=== PATIENT | male | born 1945 | race Caucasian/White ===

== ENCOUNTER 2018-03-04 16:48 | Emergency (ER) | payer OTHER ==
--- OUTSIDE RECORDS SUMMARY | 2018-03-04 16:50 | XMS REPORT | Clinical Summary ---
:1945 Author Organization [facility] Address [address] [place] [address] Phone Care Team Providers Name Role Phone Unavailable Primary Care Provider Unavailable Allergies No Known Allergies Current Medications Prescription Sig. Disp. Refills Start Date End Date Status metoprolol (TOPROL-XL) 50 Take 50 mg by Active MG 24 hr tablet mouth 2 (two) times daily. levothyroxine (SYNTHROID, Take 75 mcg by Active LEVOTHROID) 75 MCG tablet mouth Every morning on an empty stomach. multivitamin with minerals Take 1 tablet by Active tablet mouth daily. diphenhydrAMINE (BENADRYL) Take 25 mg by Active 25 mg tablet mouth every night as needed for Sleep. acetaminophen (TYLENOL) Place 650 mg Active 650 MG suppository rectally every 4 (four) hours as needed for Fever. Active Problems Problem Noted Date Pre-transplant evaluation for chronic kidney disease 12/19/2016 Last Assessment & Plan: Due to his age, history of COPD, and AAA repair he is not an acceptable candidate for kidney transplant. He understood and agreed with this decision. HTN (hypertension) 12/19/2016 Last Assessment & Plan: Continue management with nephrology as prescribed. Aortic aneurysm (HCC) 12/19/2016 Last Assessment & Plan: Repaired with a stent in 2012. Polycystic kidney 12/19/2016 COPD (chronic obstructive pulmonary disease) (HCC) 12/19/2016 Last Assessment & Plan: Controlled with inhalers. No history of smoking. Family History Medical History Relation Name Comments Cancer Brother lung Polycystic kidney disease Daughter Heart disease Father Hypertension Father Hypertension Mother COPD Sister copd Relation Name Status Comments Brother lung Daughter Father Mother Sister copd Sister breast cancer Social History Tobacco Use Types Packs/Day Years Used Date Never Smoker Alcohol Use Drinks/Week oz/Week Comments No Sex Assigned at Date Recorded Not on file Last Filed Vital Signs Not on file Plan of Treatment Health Maintenance Due Date Last Done Comments INFLUENZA VACCINE 03/25/2018 Results Not on fileafter 03/03/2017
[2018-03-04 18:04] LABS: Absolute Lymphocytes (CBC) 2.2 K/uL (0.7-4.9); Absolute Monocytes 0.8 K/uL (0.1-1.3); Absolute Neutrophil 5.7 K/uL (1.8-8.0); Eosinophils % 4.1 % (0-4.4); Hematocrit 31.5 % (39.6-49.0); Lymphocytes % 24.1 % (15.3-44.8); MCH 34.4 pg (27.0-35.0); MCV 97.6 fL (80-100); MPV 8.1 fL (7.6-11.3); Monocytes % 8.9 % (3.3-12.3); RBC Red Blood Cell Count 3.23 M/uL (4.33-5.43)
[2018-03-04 18:06] LABS: Protime INR 1.04
[2018-03-04 18:14] LABS: ALT/SGPT 30 U/L (12-78); AST/SGOT 15 U/L (15-37); Albumin 3.5 g/dL (3.4-5.0); Alkaline Phosphatase 66 U/L (45-117); Amylase Level 68 U/L (25-115); BUN Blood Urea Nitrogen 25 mg/dL (7-18); Bicarbonate 31 mmol/L (21-32); Bilirubin Direct < 0.1 mg/dL (0-0.2); Bilirubin Total 0.4 mg/dL (0.2-1.0); Glucose Level 97 mg/dL (74-106); Lipase 145 U/L (73-393); Potassium 3.7 mmol/L (3.5-5.1); Protein, Total 8.1 g/dL (6.4-8.2); Sodium Level 137 mmol/L (136-145)
[2018-03-04 18:53] LABS: Urine Blood 3+ (NEG); Urine Glucose NEGATIVE (NEG); Urine Protein 3+ (NEG); Urine Specific Gravity 1.025 (1.005-1.030)
[2018-03-04 19:20] LABS: Urine RBC TNTC /HPF (NONE SEEN)
[2018-03-04 19:21] LABS: Urine Bacteria <20 /HPF (NONE SEEN); Urine Culture Reflex Order NOT NEEDED
--- NOTE | 2018-03-04 19:23 | ER ---
Nurse's Notes [facility] Name: Robbie Kelly Age: 72 yrs Sex: Male : 1945 Arrival Date: 03/04/2018 Time: 16:53 Bed 14 Private MD: Mookie Nguyen R Diagnosis: Hematuria, unspecified Presentation: 03/04 17:06 Presenting complaint: Patient states: i noticed blood in my urine today, bright red hj fresh blood; it doesn't hurt when i pee; a dialysis pt M W F; denies taking blood thinners;. Transition of care: patient was not received from another setting of care. Onset of symptoms was March 04, 2018. Risk Assessment: Do you want to hurt yourself or someone else? Patient reports no desire to harm self or others. Initial Sepsis Screen: Does the patient meet any 2 criteria? No. Patient's initial sepsis screen is negative. Does the patient have a suspected source of infection? No. Patient's initial sepsis screen is negative. Care prior to arrival: None. 17:06 Method Of Arrival: Ambulatory 17:06 Acuity: DADA 3 hj Triage Assessment: 17:10 General: Appears in no apparent distress. uncomfortable, Behavior is calm, cooperative, hj appropriate for age. Pain: Denies pain. EENT: No signs and/or symptoms were reported regarding the EENT system. Neuro: Level of Consciousness is awake, alert, obeys commands, Oriented to person, place, time, situation, Appropriate for age. Cardiovascular: Capillary refill < 3 seconds Patient's skin is warm and dry. Respiratory: Airway is patent Respiratory effort is even, unlabored, Respiratory pattern is regular, symmetrical, Breath sounds are clear. GI: No signs and/or symptoms were reported involving the gastrointestinal system. : KAITLYNN graft;. Derm: No signs and/or symptoms reported regarding the dermatologic system. Musculoskeletal: No signs and/or symptoms reported regarding the musculoskeletal system. Historical: - Allergies: 17:09 No Known Allergies; hj - Home Meds: 17:09 levothyroxine 75 mcg oral tab 1 tab once daily [Active]; metoprolol tartrate 50 mg Oral hj tab 1 tab once daily for on days that he does not have dialysis [Active]; renal vitamin [Active]; Vitamin C Oral [Active]; - PMHx: 17:09 Anemia; COPD; Dialysis; M,W,F; Hypertension; Hypothyroidism; RENAL FAILURE; hj - PSHx: 17:09 aneursym repair; eye surgery; hj - Immunization history:: Adult Immunizations up to date. - Social history:: Smoking status: Patient/guardian denies using tobacco, Patient/guardian denies using alcohol, Patient/guardian denies using street drugs, The patient lives with family. - Ebola Screening: : Patient negative for fever greater than or equal to 101.5 degrees Fahrenheit, and additional compatible Ebola Virus Disease symptoms Patient denies exposure to infectious person Patient denies travel to an Ebola-affected area in the 21 days before illness onset. - Family history:: not pertinent. Screenin:10 Abuse screen: Denies threats or abuse. Denies injuries from another. Nutritional hj screening: No deficits noted. Tuberculosis screening: No symptoms or risk factors identified. Fall Risk None identified. Assessment: 17:12 Reassessment: see triage for assessment;. hj 17:13 Reassessment: Patient and/or family updated on plan of care and expected duration. Pain hj level reassessed. Patient is alert, oriented x 3, equal unlabored respirations, skin warm/dry/pink. provider in the room;. 18:15 Reassessment: Patient and/or family updated on plan of care and expected duration. Pain hj level reassessed. Patient is alert, oriented x 3, equal unlabored respirations, skin warm/dry/pink. awaiting results and POC; family in room;. 18:24 Reassessment: Patient and/or family updated on plan of care and expected duration. Pain hj level reassessed. Patient is alert, oriented x 3, equal unlabored respirations, skin warm/dry/pink. provider in room for POC; awaiting urine specimen;. 18:43 Reassessment: urine specimen sent for u joel;. hj 19:01 General: Appears in no apparent distress. Behavior is calm, cooperative, appropriate ea for age. Pain: Denies pain. Neuro: Level of Consciousness is awake, alert, obeys commands, Oriented to person, place, time, situation. Cardiovascular: Patient's skin is warm and dry. Dialysis shunt: in the left arm, with palpable thrill, with no edema, no bleeding noted. Respiratory: Airway is patent Respiratory effort is even, unlabored, Respiratory pattern is regular, symmetrical. GI: No signs and/or symptoms were reported involving the gastrointestinal system. : Reports bloody urine this AM. EENT: No signs and/or symptoms were reported regarding the EENT system. Derm: Skin is pink, warm \T\ dry. Musculoskeletal: No signs and/or symptoms reported regarding the musculoskeletal system. Vital Signs: 17:11 BP 169 / 77; Pulse 79; Resp 18; Temp 97.8(O); Pulse Ox 97% on R/A; Weight 86.5 kg; hj Height 5 ft. 10 in. (177.80 cm); Pain 0/10; 18:15 BP 165 / 75; Pulse 78; Resp 18; Pulse Ox 98% on R/A; hj 18:23 BP 133 / 93; Pulse 82; Resp 18; Pulse Ox 97% on R/A; hj 19:30 BP 140 / 68; Pulse 80; Resp 18; Temp 97.8(O); Pulse Ox 99% on R/A; Pain 0/10; ea 17:11 Body Mass Index 27.36 (86.50 kg, 177.80 cm) ED Course: 07:43 IV discontinued, intact, bleeding controlled, No redness/swelling at site. Pressure ea dressing applied. 16:53 Patient arrived in ED. mr 16:53 Mookie Nguyen MD is Private Physician. mr 17:01 Avel Robert, LEXII is Primary Nurse. hj 17:05 Korey Antonio MD is Attending Physician. ma2 17:07 Triage completed. hj 17:11 Arm band placed on right wrist. hj 17:11 Patient has correct armband on for positive identification. Bed in low position. Call light in reach. Side rails up X 1. Adult w/ patient. 17:35 Initial lab(s) drawn, by ri, sent to lab. Inserted saline lock: 22 gauge in right upper hj arm, using aseptic technique. Blood collected. 18:40 Urine Microscopic Only Sent. hj 19:00 Report given to LEXII Wu;. 19:01 Jazmin Orta, RN is Primary Nurse. ea 19:43 No provider procedures requiring assistance completed. ea Administered Medications: 18:18 CANCELLED (Inappropriate at this time): NS 0.9% 1000 ml IV at 1 bolus Per protocol; ma2 1000 mL bolus Outcome: 19:22 Discharge ordered by . ma2 19:45 Discharged to home ambulatory, with significant other. favian 19:45 Condition: improved 19:45 Discharge instructions given to patient, Instructed on discharge instructions, follow up and referral plans. Demonstrated understanding of instructions, follow-up care. 19:47 Patient left the ED. favian Signatures: Ariana Rascon mr Avel Robert RN Jazmni Wilson RN RN ea Alzahri, Mohammad, MD MD ma2 Corrections: (The following items were deleted from the chart) 18:44 18:24 Reassessment: Patient and/or family updated on plan of care and expected hj duration. Pain level reassessed. Patient is alert, oriented x 3, equal unlabored respirations, skin warm/dry/pink. provider in room for POC; hj
--- NOTE | 2018-03-04 19:23 | EDPHYS ---
Physician Documentation [facility] Name: Robbie Kelly Age: 72 yrs Sex: Male : 1945 Arrival Date: 03/04/2018 Time: 16:53 Bed 14 Private MD: Mookie Nguyen R ED Physician Korey Antonio HPI: 03/04 17:31 This 72 yrs old Male presents to ER via Ambulatory with complaints of Blood ma2 in urine. 17:31 The patient presents with urinary symptoms, hematuria . Onset: The symptoms/episode ma2 began/occurred gradually, 1 day(s) ago. Associated signs and symptoms: Pertinent positives: hematuria, Pertinent negatives: abdominal pain, constipation, dysuria, hematuria, nausea, vomiting. Severity of symptoms: At their worst the symptoms were moderate, in the emergency department the symptoms have improved. The patient has experienced a previous episode. Historical: - Allergies: 17:09 No Known Allergies; hj - Home Meds: 17:09 levothyroxine 75 mcg oral tab 1 tab once daily [Active]; metoprolol tartrate 50 mg Oral hj tab 1 tab once daily for on days that he does not have dialysis [Active]; renal vitamin [Active]; Vitamin C Oral [Active]; - PMHx: 17:09 Anemia; COPD; Dialysis; M,W,F; Hypertension; Hypothyroidism; RENAL FAILURE; hj - PSHx: 17:09 aneursym repair; eye surgery; hj - Immunization history:: Adult Immunizations up to date. - Social history:: Smoking status: Patient/guardian denies using tobacco, Patient/guardian denies using alcohol, Patient/guardian denies using street drugs, The patient lives with family. - Ebola Screening: : Patient negative for fever greater than or equal to 101.5 degrees Fahrenheit, and additional compatible Ebola Virus Disease symptoms Patient denies exposure to infectious person Patient denies travel to an Ebola-affected area in the 21 days before illness onset. - Family history:: not pertinent. ROS: 17:31 Constitutional: Negative for fever, chills, and weight loss, Neck: Negative for injury, ma2 pain, and swelling. 17:31 : Positive for urinary symptoms, Negative for injury or acute deformity, small amounts, pelvic pain, burning with urination, difficulty urinating, testicular pain acute changes. 17:31 All other systems are negative. Exam: 17:31 Constitutional: This is a well developed, well nourished patient who is awake, alert, ma2 and in no acute distress. ENT: Nares patent. No nasal discharge, no septal abnormalities noted. Tympanic membranes are normal and external auditory canals are clear. Oropharynx with no redness, swelling, or masses, exudates, or evidence of obstruction, uvula midline. Mucous membranes moist. Chest/axilla: Normal chest wall appearance and motion. Nontender with no deformity. No lesions are appreciated. Cardiovascular: Regular rate and rhythm with a normal S1 and S2. No gallops, murmurs, or rubs. Normal PMI, no JVD. No pulse deficits. Respiratory: Lungs have equal breath sounds bilaterally, clear to auscultation and percussion. No rales, rhonchi or wheezes noted. No increased work of breathing, no retractions or nasal flaring. Abdomen/GI: Soft, non-tender, with normal bowel sounds. No distension or tympany. No guarding or rebound. No evidence of tenderness throughout. Neuro: Awake and alert, GCS 15, oriented to person, place, time, and situation. Cranial nerves II-XII grossly intact. Motor strength 5/5 in all extremities. Sensory grossly intact. Cerebellar exam normal. Normal gait. Vital Signs: 17:11 BP 169 / 77; Pulse 79; Resp 18; Temp 97.8(O); Pulse Ox 97% on R/A; Weight 86.5 kg; hj Height 5 ft. 10 in. (177.80 cm); Pain 0/10; 18:15 BP 165 / 75; Pulse 78; Resp 18; Pulse Ox 98% on R/A; hj 18:23 BP 133 / 93; Pulse 82; Resp 18; Pulse Ox 97% on R/A; hj 19:30 BP 140 / 68; Pulse 80; Resp 18; Temp 97.8(O); Pulse Ox 99% on R/A; Pain 0/10; ea 17:11 Body Mass Index 27.36 (86.50 kg, 177.80 cm) MDM: 17:06 Patient medically screened. ma2 17:31 Differential diagnosis: nonspecific abdominal pain, UTI, urinary retention, ma2 prostatitis, urethritis. 19:23 Data reviewed: vital signs, nurses notes, EMS record, lab test result(s). Counseling: I lily had a detailed discussion with the patient and/or guardian regarding: the historical points, exam findings, and any diagnostic results supporting the discharge/admit diagnosis, the need for outpatient follow up. ED course: HB and coags wnl, no UTI, no pain, he will need outpatient work up for painless hematuria. 03/04 17:27 Order name: Amylase, Serum; Complete Time: 18:16 [facility] 03/04 17:27 Order name: Basic Metabolic Panel; Complete Time: 18:16 [facility] 03/04 17:27 Order name: CBC with Diff [facility] 03/04 17:27 Order name: Creatinine for Radiology; Complete Time: 18:16 [facility] 03/04 17:27 Order name: Hepatic Function; Complete Time: 18:16 [facility] 03/04 17:27 Order name: Lipase; Complete Time: 18:16 [facility] 03/04 17:27 Order name: Urine Microscopic Only [facility] 03/04 17:27 Order name: IV Saline Lock; Complete Time: 17:37 [facility] 03/04 17:27 Order name: Labs collected and sent; Complete Time: 17:37 [facility] 03/04 17:27 Order name: Urine Dipstick-Ancillary (obtain specimen); Complete Time: 18:40 [facility] 03/04 17:27 Order name: Ptt, Activated; Complete Time: 18:16 [facility] 03/04 17:27 Order name: PT-INR; Complete Time: 18:16 [facility] 03/04 18:40 Order name: Urine Dipstick--Ancillary (enter results); Complete Time: 19:21 bd Administered Medications: 18:18 CANCELLED (Inappropriate at this time): NS 0.9% 1000 ml IV at 1 bolus Per protocol; ma2 1000 mL bolus Disposition: 03/04/18 19:22 Discharged to Home. Impression: Hematuria, unspecified. - Condition is Stable. - Discharge Instructions: Hematuria, Adult. - Medication Reconciliation Form, Thank You Letter, Antibiotic Education, Prescription Opioid Use form. - Follow up: Private Physician; When: Tomorrow; Reason: Continuance of care. - Problem is new. - Symptoms have improved. Signatures: Dispatcher [employer] EDMS Avel Robert RN RN hj Antunez, Elena, RN RN ea Alzahri, Mohammad, MD MD ma2 Corrections: (The following items were deleted from the chart) 18:18 18:18 NS 0.9% 1000 ml IV at 1 bolus Per protocol; 1000 mL bolus ordered. ma2 ma2 19:47 19:22 03/04/2018 19:22 Discharged to Home. Impression: Hematuria, unspecified. ea Condition is Stable. Forms are Medication Reconciliation Form, Thank You Letter, Antibiotic Education, Prescription Opioid Use. Follow up: Private Physician; When: Tomorrow; Reason: Continuance of care. Problem is new. Symptoms have improved. ma2
[2018-03-04 19:54] VITALS: TEMP 97.8
[2018-03-04 19:57] LABS: Blood Morphology Comment NOT SEEN (NOT SEEN); Platelet Estimate ADEQ
[2018-03-04 19:58] VITALS: BP 140/68; O2SAT 99
== END 2018-03-04 19:47 | disposition home or self-care (01) ==
LOC: ER 16:48
DX: R31.9 Hematuria, unspecified (principal); I10 Essential (primary) hypertension; N19 Unspecified kidney failure; E03.9 Hypothyroidism, unspecified; J44.9 Chronic obstructive pulmonary disease, unspecified; Z99.2 Dependence on renal dialysis
CPT/HCPCS: 36415; 80048; 80076; 81003; 81015; 82150; 83690; 85025; 85610; 85730; 99283

== ENCOUNTER 2019-06-18 20:24 | Inpatient (IN) | payer OTHER ==
[2019-06-18] MEDS ORDERED: ACETAMINOPHEN 500 MG TAB ONE (22:30)
--- NOTE | 2019-06-18 22:54 | EDPHYS ---
Physician Documentation [facility] Name: Robbie Kelly Age: 74 yrs Sex: Male : 1945 Arrival Date: 06/18/2019 Time: 20:26 Bed 13 Private MD: Mookie Nguyen R ED Physician Derrick Brooke HPI: 06/18 22:47 This 74 yrs old Male presents to ER via Ambulatory with complaints of Cough, mitchell Pain All Over. 22:47 The patient or guardian reports airway noise, cough, difficulty breathing, flu mitchell symptoms. Onset: The symptoms/episode began/occurred 3 day(s) ago. Severity of symptoms: At their worst the symptoms were mild, moderate, in the emergency department the symptoms are unchanged. Modifying factors: The symptoms are alleviated by nothing. The patient has not experienced similar symptoms in the past. Historical: - Allergies: 20:54 No Known Allergies; ea - Home Meds: 20:54 levothyroxine 75 mcg tab 1 tab once daily [Active]; metoprolol tartrate 50 mg Oral tab ea 1 tab once daily for on days that he does not have dialysis [Active]; renal vitamin [Active]; Vitamin C Oral [Active]; - PMHx: 20:54 Anemia; COPD; Dialysis; M,W,F; Hypertension; Hypothyroidism; RENAL FAILURE; ea - PSHx: 20:54 triple A in 2011; ea - Immunization history:: Adult Immunizations up to date. - Social history:: Smoking status: Patient/guardian denies using tobacco. - Ebola Screening: : No symptoms or risks identified at this time. - Family history:: not pertinent. ROS: 22:47 Eyes: Negative for injury, pain, redness, and discharge, ENT: Negative for injury, mitchell pain, and discharge, Neck: Negative for injury, pain, and swelling, Cardiovascular: Negative for chest pain, palpitations, and edema, Abdomen/GI: Negative for abdominal pain, nausea, vomiting, diarrhea, and constipation, Back: Negative for injury and pain, : Negative for injury, bleeding, discharge, and swelling, MS/Extremity: Negative for injury and deformity, Skin: Negative for injury, rash, and discoloration, Neuro: Negative for headache, weakness, numbness, tingling, and seizure, Psych: Negative for depression, anxiety, suicide ideation, homicidal ideation, and hallucinations, Allergy/Immunology: Negative for hives, rash, and allergies, Endocrine: Negative for neck swelling, polydipsia, polyuria, polyphagia, and marked weight changes, Hematologic/Lymphatic: Negative for swollen nodes, abnormal bleeding, and unusual bruising. 22:47 Constitutional: Positive for body aches, chills, fatigue, fever, malaise. 22:47 Cardiovascular: Positive for palpitations. 22:47 Respiratory: Positive for cough, shortness of breath, wheezing, inspiratory, expiratory. Exam: 22:47 Constitutional: This is a well developed, well nourished patient who is awake, alert, mitchell and in no acute distress. Head/Face: Normocephalic, atraumatic. Eyes: Pupils equal round and reactive to light, extra-ocular motions intact. Lids and lashes normal. Conjunctiva and sclera are non-icteric and not injected. Cornea within normal limits. Periorbital areas with no swelling, redness, or edema. ENT: Nares patent. No nasal discharge, no septal abnormalities noted. Tympanic membranes are normal and external auditory canals are clear. Oropharynx with no redness, swelling, or masses, exudates, or evidence of obstruction, uvula midline. Mucous membranes moist. Neck: Trachea midline, no thyromegaly or masses palpated, and no cervical lymphadenopathy. Supple, full range of motion without nuchal rigidity, or vertebral point tenderness. No Meningismus. Chest/axilla: Normal chest wall appearance and motion. Nontender with no deformity. No lesions are appreciated. Cardiovascular: Regular rate and rhythm with a normal S1 and S2. No gallops, murmurs, or rubs. Normal PMI, no JVD. No pulse deficits. Abdomen/GI: Soft, non-tender, with normal bowel sounds. No distension or tympany. No guarding or rebound. No evidence of tenderness throughout. Back: No spinal tenderness. No costovertebral tenderness. Full range of motion. Male : Normal genitalia with no discharge or lesions. Skin: Warm, dry with normal turgor. Normal color with no rashes, no lesions, and no evidence of cellulitis. MS/ Extremity: Pulses equal, no cyanosis. Neurovascular intact. Full, normal range of motion. Neuro: Awake and alert, GCS 15, oriented to person, place, time, and situation. Cranial nerves II-XII grossly intact. Motor strength 5/5 in all extremities. Sensory grossly intact. Cerebellar exam normal. Normal gait. Psych: Awake, alert, with orientation to person, place and time. Behavior, mood, and affect are within normal limits. 22:47 Respiratory: mild respiratory distress is noted, moderate respiratory distress is noted, Respirations: labored breathing, that is mild, Breath sounds: bronchial sounds, decreased breath sounds, rhonchi, that are mild, that are moderate, + upper airway congestion. wheezing: inspiratory expiratory Vital Signs: 20:52 BP 152 / 94; Pulse 91; Resp 20; Temp 99.9; Pulse Ox 94% on R/A; Weight 86.18 kg; Height ea 5 ft. 10 in. (177.80 cm); 21:39 BP 139 / 72; Pulse 92; Resp 20; Temp 102.1(O); Pulse Ox 93% ; mh5 22:48 BP 146 / 64; Pulse 90; Resp 18; Temp 99.7(O); Pulse Ox 93% ; [facility] 06/19 00:13 BP 110 / 54; Pulse 99; Resp 18; Temp 99.0(O); Pulse Ox 93% on R/A; [facility] 06/18 20:52 Body Mass Index 27.26 (86.18 kg, 177.80 cm) ea MDM: 06/18 20:56 Patient medically screened. [facility] 22:51 Data reviewed: vital signs, nurses notes, lab test result(s), EKG, radiologic studies, [facility] plain films. 06/18 20:55 Order name: Flu; Complete Time: 22:59 [facility] 06/18 20:55 Order name: Strep; Complete Time: 22:59 [facility] 06/18 21:46 Order name: Throat Culture EDNM 06/18 22:47 Order name: Basic Metabolic Panel; Complete Time: 03:02 [facility] 06/18 22:47 Order name: CBC with Diff; Complete Time: 00:17 [facility] 06/18 22:47 Order name: LFT's; Complete Time: 03:02 [facility] 06/18 22:47 Order name: Magnesium; Complete Time: 03:02 [facility] 06/18 22:47 Order name: NT PRO-BNP; Complete Time: 03:02 [facility] 06/18 22:47 Order name: PT-INR; Complete Time: 00:17 [facility] 06/18 22:47 Order name: Troponin (emerg Dept Use Only); Complete Time: 03:02 [facility] 06/18 22:47 Order name: XRAY Chest (1 view) [facility] 06/18 22:47 Order name: Lipase; Complete Time: 03:02 [facility] 06/18 22:47 Order name: Blood Culture Adult (2) [facility] 06/18 22:47 Order name: EKG; Complete Time: 22:48 [facility] 06/18 22:47 Order name: Cardiac monitoring; Complete Time: 00:58 [facility] 06/18 22:47 Order name: EKG - Nurse/Tech; Complete Time: 00:58 [facility] 06/18 22:47 Order name: IV Saline Lock; Complete Time: 00:58 [facility] 06/18 22:47 Order name: Labs collected and sent; Complete Time: 00:58 [facility] 06/18 22:47 Order name: O2 Per Protocol; Complete Time: 00:58 [facility] 06/18 22:47 Order name: O2 Sat Monitoring; Complete Time: 00:58 [facility] Administered Medications: 22:28 Drug: Tylenol 1000 mg Route: PO; 06/19 00:30 Follow up: Response: No adverse reaction 06/18 23:20 Drug: Albuterol - atroVENT (3:1) (2.5 mg - 0.5 mg) 3 ml Route: Nebulizer; 06/19 00:59 Follow up: Response: No adverse reaction 06/18 23:35 Drug: SOLU-Medrol 125 mg Route: IVP; Site: right antecubital; 06/19 01:00 Follow up: Response: No adverse reaction 00:05 Drug: Rocephin - (cefTRIAXone) 1 grams Route: IVPB; Infused Over: 30 mins; Site: right ea antecubital; 00:59 Follow up: Response: No adverse reaction; IV Status: Completed infusion ea 00:15 Drug: Zithromax 500 mg Route: IVPB; Infused Over: 1 hrs; Site: right antecubital; ea 00:59 Follow up: Response: No adverse reaction; IV Status: Infusion continued upon admission ea Disposition: 06/18/19 22:52 Hospitalization ordered by Mookie Nguyen for Inpatient Admission. Preliminary diagnosis are Chronic obstructive pulmonary disease with (acute) exacerbation, Fever, unspecified, Weakness, End stage renal disease. - Bed requested for Telemetry/MedSurg (Inpatient). - Status is Inpatient Admission. ea - Condition is Fair. - Problem is new. - Symptoms have improved. UTI on Admission? No Signatures: Dispatcher [employer] EDDerrick Salinas MD MD cha Therrien, Shelly, CONTINUING EDUCATION DEAN-C CONTINUING EDUCATION DEAN-Csnw Ania Sullivan, RN RN tl1 Jazmin Orta RN RN ea Clary Ross RN RN ca1 Corrections: (The following items were deleted from the chart) 06/18 23:56 22:52 Hospitalization Ordered by Mookie Nguyen MD for Inpatient Admission. Preliminary tl1 diagnosis is Chronic obstructive pulmonary disease with (acute) exacerbation; Fever, unspecified; Weakness; End stage renal disease. Bed requested for Telemetry/MedSurg (Inpatient). Status is Inpatient Admission. Condition is Fair. Problem is new. Symptoms have improved. UTI on Admission? No. [facility] 06/19 01:01 06/18 23:56 06/18/2019 22:52 Hospitalization Ordered by Mookie Nguyen MD for Inpatient ea Admission. Preliminary diagnosis is Chronic obstructive pulmonary disease with (acute) exacerbation; Fever, unspecified; Weakness; End stage renal disease. Bed requested for Telemetry/MedSurg (Inpatient). Status is Inpatient Admission. Condition is Fair. Problem is new. Symptoms have improved. UTI on Admission? No. tl1
--- NOTE | 2019-06-18 22:54 | ER ---
Nurse's Notes [facility] Name: Robbie Kelly Age: 74 yrs Sex: Male : 1945 Arrival Date: 06/18/2019 Time: 20:26 Bed 13 Private MD: Mookie Nguyen R Diagnosis: Chronic obstructive pulmonary disease with (acute) exacerbation;Fever, unspecified;Weakness;End stage renal disease Presentation: 06/18 20:50 Presenting complaint: Patient states: Reports he has been feeling sick since this past ea Sunday after dialysis, reports cough, congestion and body aches. Transition of care: patient was not received from another setting of care. Onset of symptoms was June 18, 2019. Risk Assessment: Do you want to hurt yourself or someone else? Patient reports no desire to harm self or others. Initial Sepsis Screen: Does the patient meet any 2 criteria? No. Patient's initial sepsis screen is negative. Does the patient have a suspected source of infection? No. Patient's initial sepsis screen is negative. Care prior to arrival: None. 20:50 Method Of Arrival: Ambulatory ea 20:50 Acuity: DADA 4 ea Historical: - Allergies: 20:54 No Known Allergies; ea - Home Meds: 20:54 levothyroxine 75 mcg tab 1 tab once daily [Active]; metoprolol tartrate 50 mg Oral tab ea 1 tab once daily for on days that he does not have dialysis [Active]; renal vitamin [Active]; Vitamin C Oral [Active]; - PMHx: 20:54 Anemia; COPD; Dialysis; M,W,F; Hypertension; Hypothyroidism; RENAL FAILURE; ea - PSHx: 20:54 triple A in 2011; ea - Immunization history:: Adult Immunizations up to date. - Social history:: Smoking status: Patient/guardian denies using tobacco. - Ebola Screening: : No symptoms or risks identified at this time. - Family history:: not pertinent. Screenin:52 Abuse screen: Denies threats or abuse. Nutritional screening: No deficits noted. ea Tuberculosis screening: No symptoms or risk factors identified. Fall Risk None identified. Assessment: 20:55 General: Appears in no apparent distress. comfortable, Behavior is calm, cooperative, ca1 appropriate for age, Reports feeling ill for > 3 days. Pain: Denies pain. Neuro: Level of Consciousness is awake, alert, obeys commands, Oriented to person, place, time, situation. Cardiovascular: Heart tones S1 S2 present Capillary refill < 3 seconds Patient's skin is warm and dry. Cardiovascular: Dialysis shunt: in the left arm, with palpable thrill, with auscultated bruit. Respiratory: Reports cough that is productive, since Sunday Airway is patent Respiratory effort is even, unlabored, Respiratory pattern is regular, symmetrical, Breath sounds with wheezes in left posterior upper lobe. GI: Abdomen is round non-distended, Bowel sounds present X 4 quads. Abd is soft and non tender X 4 quads. : No deficits noted. No signs and/or symptoms were reported regarding the genitourinary system. EENT: Reports nasal congestion since Sunday. Derm: Skin is intact, is healthy with good turgor, Skin is pink, warm \T\ dry. Musculoskeletal: Circulation, motion, and sensation intact. Capillary refill Range of motion: intact in all extremities. 22:00 General: Appears comfortable, Behavior is appropriate for age. Pain: Denies pain. ea Neuro: Level of Consciousness is awake, alert, obeys commands, Oriented to person, place, time, situation. Cardiovascular: Respiratory: Airway is patent Respiratory effort is even, unlabored, Respiratory pattern is regular, symmetrical, Breath sounds are coarse bilaterally. Breath sounds are diminished Breath sounds with wheezes. Derm: Skin is pink, warm \T\ dry. 23:00 Reassessment: Patient and/or family updated on plan of care and expected duration. Pain ea level reassessed. Patient is alert, oriented x 3, equal unlabored respirations, skin warm/dry/pink. 06/19 00:55 Reassessment: Patient and/or family updated on plan of care and expected duration. Pain ea level reassessed. Patient is alert, oriented x 3, equal unlabored respirations, skin warm/dry/pink. Pt admitted to second floor, pt tolerating well. No s/s of pain or discomfort noted at this time. Vital Signs: 06/18 20:52 BP 152 / 94; Pulse 91; Resp 20; Temp 99.9; Pulse Ox 94% on R/A; Weight 86.18 kg; Height ea 5 ft. 10 in. (177.80 cm); 21:39 BP 139 / 72; Pulse 92; Resp 20; Temp 102.1(O); Pulse Ox 93% ; 5 22:48 BP 146 / 64; Pulse 90; Resp 18; Temp 99.7(O); Pulse Ox 93% ; 5 06/19 00:13 BP 110 / 54; Pulse 99; Resp 18; Temp 99.0(O); Pulse Ox 93% on R/A; 5 06/18 20:52 Body Mass Index 27.26 (86.18 kg, 177.80 cm) ea ED Course: 06/18 20:26 Patient arrived in ED. as 20:26 Mookie Nguyen MD is Private Physician. as 20:49 Clary Ross, LEXII is Primary Nurse. ca1 20:51 Triage completed. ea 20:54 Arm band placed on right wrist. Patient placed in an exam room, on a stretcher, on ea pulse oximetry. 20:54 Patient has correct armband on for positive identification. Bed in low position. Call ea light in reach. Adult w/ patient. 20:55 Pulse ox on. NIBP on. Warm blanket given. ca1 20:56 Derrick Brooke MD is Attending Physician. mitchell 21:17 No provider procedures requiring assistance completed. Inserted saline lock: 20 gauge ca1 in right antecubital area, using aseptic technique. Blood collected. 22:52 Mookie Nguyen MD is Hospitalizing Provider. mitchell 22:59 XRAY Chest (1 view) In Process Unspecified. EDMS 06/19 00:24 Patient admitted, IV remains in place. ea Administered Medications: 06/18 22:28 Drug: Tylenol 1000 mg Route: PO; ea 06/19 00:30 Follow up: Response: No adverse reaction 06/18 23:20 Drug: Albuterol - atroVENT (3:1) (2.5 mg - 0.5 mg) 3 ml Route: Nebulizer; ea 06/19 00:59 Follow up: Response: No adverse reaction 06/18 23:35 Drug: SOLU-Medrol 125 mg Route: IVP; Site: right antecubital; ea 06/19 01:00 Follow up: Response: No adverse reaction 00:05 Drug: Rocephin - (cefTRIAXone) 1 grams Route: IVPB; Infused Over: 30 mins; Site: right ea antecubital; 00:59 Follow up: Response: No adverse reaction; IV Status: Completed infusion ea 00:15 Drug: Zithromax 500 mg Route: IVPB; Infused Over: 1 hrs; Site: right antecubital; ea 00:59 Follow up: Response: No adverse reaction; IV Status: Infusion continued upon admission ea Outcome: 06/18 22:52 Decision to Hospitalize by Provider. mitchell 06/19 01:00 Admitted to Med/surg accompanied by tech, via wheelchair, with chart, Report called to ea Receiving nurse on second floor Condition: stable Instructed on the need for admit, Demonstrated understanding of instructions. 01:01 Patient left the ED. ea Signatures: Dispatcher [employer] EDMS Derrick Brooke MD MD cha Martinez, Amelia as Martinez, Maria 5 Jazmin Orta RN RN Clary Castaneda, RN RN ca1 Corrections: (The following items were deleted from the chart) 06/18 21:46 21:39 BP 139 / 72; Pulse 92bpm; Resp 20bpm; Pulse Ox 93%; 5 [facility]
[2019-06-18 23:12] LABS: Absolute Lymphocytes (CBC) 0.9 K/uL (0.7-4.9); Hematocrit 31.9 % (39.6-49.0); Lymphocytes % 11.5 % (15.3-44.8); RBC Red Blood Cell Count 3.18 M/uL (4.33-5.43)
[2019-06-18 23:13] LABS: Protime INR 1.1
[2019-06-18] MEDS ORDERED: ALBUTEROL 2.5 MG/3 ML NEB SOL ONE (23:18)
[2019-06-18] MEDS ORDERED: IPRATROPIUM BROM 0.5MG/2.5ML ONE (23:18)
[2019-06-18] MEDS ORDERED: AZITHROMYCIN 500 MG INJ IVPB ONE (23:19)
[2019-06-18] MEDS ORDERED: CEFTRIAXONE/SWI 1gm 1 GM/10 ML SYR ONE (23:19)
[2019-06-18] MEDS ORDERED: METHYLPREDNISOLONE 125 MG INJ ONE (23:19)
[2019-06-18] MEDS ORDERED: NA CHLORIDE 0.9% 250 ML ONE (23:58)
[2019-06-19 00:22] LABS: ALT/SGPT 26 U/L (12-78); AST/SGOT 16 U/L (15-37); Alkaline Phosphatase 59 U/L (45-117); BUN Blood Urea Nitrogen 26 mg/dL (7-18); Bicarbonate 27 mmol/L (21-32); Bilirubin Direct 0.1 mg/dL (0-0.2); Bilirubin Total 0.4 mg/dL (0.2-1.0); Glucose Level 107 mg/dL (74-106); Potassium 4.7 mmol/L (3.5-5.1); Sodium Level 140 mmol/L (136-145)
[2019-06-19 00:23] LABS: Albumin 3.6 g/dL (3.4-5.0); Lipase 133 U/L (73-393); Magnesium 2.1 mg/dL (1.8-2.4); NT PRO-BNP 3121 pg/mL (<125); Troponin (Emerg Dept Use Only) < 0.02 ng/mL (0.0-0.045)
[2019-06-19] MEDS ORDERED: METHYLPREDNISOLONE 40 MG INJ IV SCH (01:09)
[2019-06-19] MEDS ORDERED: ALBUTEROL 2.5 MG/3 ML NEB SOL NEB PRN ×2 (01:09→18:00)
[2019-06-19] MEDS ORDERED: ACETAMINOPHEN 500 MG TAB PO PRN (01:09)
[2019-06-19] MEDS ORDERED: ONDANSETRON 4 MG/2 ML VIAL IV PRN (01:09)
[2019-06-19] MEDS ORDERED: IPRATROPIUM BROM 0.5MG/2.5ML NEB PRN ×2 (01:09→18:00)
[2019-06-19] MEDS ORDERED: MORPHINE 4 MG/ML SYR IV PRN (01:09)
[2019-06-19 05:47] LABS: Absolute Lymphocytes (CBC) 0.4 K/uL (0.7-4.9); Basophils % 0.3 % (0-1.3); Hematocrit 31.8 % (39.6-49.0); Lymphocytes % 5.7 % (15.3-44.8); MPV 8.8 fL (7.6-11.3); RBC Red Blood Cell Count 3.22 M/uL (4.33-5.43)
[2019-06-19] MEDS: METHYLPREDNISOLONE 40 MG INJ IV SCH ×3 (06:00→23:24)
[2019-06-19 06:17] LABS: Potassium 4.7 mmol/L (3.5-5.1)
[2019-06-19] MEDS ORDERED: MORPHINE 2 MG/ML SYR IV PRN (07:22)
--- NOTE | 2019-06-19 08:10 | RAD REPORT ---
EXAM DESCRIPTION: RAD - Chest Single View - 06/18/2019 10:58 pm CLINICAL HISTORY: Cough;COPD Chest pain. COMPARISON: Chest Pa And Lat (2 Views) dated 02/21/2018; Chest Single View dated 09/30/2015; CHEST PA A ND LAT 2 VIEW dated 11/21/2013; CHEST SINGLE VIEW dated 08/28/2013; Chest Single View dated 06/19/2019 FINDINGS: Portable technique limits examination quality. Prominent interstitial opacities are present bilaterally which may represent mild interstitial pulmon ryanne edema or interstitial pneumonia/bronchitis. The heart is normal in size. No displaced fractures.
--- NOTE | 2019-06-19 08:45 | RAD REPORT ---
EXAM DESCRIPTION: RAD - Chest Single View - 06/19/2019 7:56 am CLINICAL HISTORY: Chest Pain Chest pain. COMPARISON: Chest Single View dated 06/18/2019; Chest Pa And Lat (2 Views) dated 02/21/2018; Chest Si ngle View dated 09/30/2015; CHEST PA AND LAT 2 VIEW dated 11/21/2013 FINDINGS: Portable technique limits examination quality. Little overall change is seen in appearance of the chest. Mild interstitial lung opacities are presen t with linear atelectasis in both lung bases. The heart is normal in size. No displaced fractures.
[2019-06-19] MEDS ORDERED: CEFTRIAXONE 1 GM/NS 50 ML 1 GM/50 ML BAG IV SCH (09:00)
[2019-06-19] MEDS: AZITHROMYCIN IV 500 MG in NA CHLORIDE 0.9% 250 ML IVPB SCH (09:00)
[2019-06-19] MEDS: ASPIRIN EC 81 MG TAB PO SCH (09:46)
--- NOTE | 2019-06-19 11:51 | P.CNS ---
Date of Consult: 06/19/19 Chief Complaint: Cough, SOB History of Present Illness: A 74 Y/o man with PMHx of ESRd on HD TTsat via Lt uuper arm AVG, anemia of chronic disease, HYN , hypothyrodism and CAD Pt presented for persistent cough and SOB Pt with HX of COPD, had persistent cough, didn't respond to inhalers , pt developed fever and decide to come to ER he denied chest pain, palpitation, hemoptysis , headache, blurry vision spiked fever of 102 in ER Allergies No Known Allergies Allergy (Verified 06/19/19 01:21) Home Medications: Levothyroxine Sodium [Unithroid] 88 mcg PO DAILY 10/01/15 Metoprolol Tartrate [Lopressor] 50 mg PO BID 10/01/15 Albuterol Sulfate [Ventolin Hfa] 90 mcg IN Q6HP PRN 06/19/19 Folic Acid/Vit B Complex and C [Renal-Shari Tablet] 1 tab PO DAILY 06/19/19 Lisinopril [Zestril] 10 mg PO DAILY 06/19/19 - Past Medical/Surgical History Diabetic: No -: HTN -: Hypothyroid -: polycystic kidney -: diverticulitis -: COPD -: anemia -: CKD -: AAA repair -: Colonoscopy -: AAA repair - Family History Father Medical History: Heart disease Mother Medical History: Heart disease - Social History Smoking Status: Former smoker Alcohol use: No CD- Drugs: No Caffeine use: No Place of Residence: Home Physical Examination Temp Pulse Resp BP Pulse Ox 97.6 F 95 H 18 142/65 H 94 06/19/19 08:00 06/19/19 08:00 06/19/19 08:00 06/19/19 08:00 06/19/19 08:00 General: In no apparent distress, Oriented x3 HEENT: Atraumatic, Normocephalic, EOMI Neck: Supple, Without JVD or thyroid abnormality Respiratory: Normal air movement, Crackles/rales (Rt basal rales ) Cardiovascular: No edema, Normal pulses, Regular rate/rhythm, Normal S1 S2, No gallops, No rubs, No murmurs Gastrointestinal: Normal bowel sounds, Soft and benign, Non-distended, No ascites, No tenderness Musculoskeletal: No clubbing, No swelling, No erythema Integumentary: No rashes Laboratory Data (last 24 hrs) 06/18/19 21:18: PT 12.9 H, INR 1.10 06/18/19 21:18: WBC 8.0, Hgb 10.8 L, Hct 31.9 L, Plt Count 186 06/18/19 21:18: Sodium 140, Potassium 4.7, BUN 26 H, Creatinine 7.28 H*, Glucose 107 H, Magnesium 2.1, Total Bilirubin 0.4, AST 16, ALT 26, Alkaline Phosphatase 59, Lipase 133 Conclusions/Impression: ESRD on HD TTSat will do dialysis tomorrow renal dose meds Anemia will restart on Epogen URTI with fever cont abx f/u respiratory culturs COPD exacerbation Cont Abx , inhalers HTN controlled
--- NOTE | 2019-06-19 11:58 | EKG ---
Test Date: 2019-06-19 Test Time: 09:14:11 Under Trimmer: SANTANA MEASUREMENT RESULTS: Intervals: Rate: 94 LA: 182 QRSD: 100 QT: 362 QTc: 452 [place]: P: 59 LA: 182 QRS: 54 T: 73 INTERPRETIVE STATEMENTS: Normal sinus rhythm Normal ECG Compared to ECG 09/30/2015 15:29:41 Atrial premature complex(es) no longer present ST (T wave) deviation no longer present Electronically Signed On 06-19-19 11:56:52 [employer] by Stephan Marino
[2019-06-19] MEDS ORDERED: EPOETIN 4,000 UNIT/ML VIAL IV SCH (12:00)
[2019-06-19 12:54] LABS: Anisocytosis 1+; Blood Morphology Comment NOTED (NOT SEEN); Platelet Estimate ADEQ; Urine White Blood Cell Casts OK
[2019-06-19] MEDS ORDERED: CEFTRIAXONE/SWI 1gm 1 GM/10 ML SYR IV SCH (21:00)
[2019-06-19] MEDS ORDERED: HOME MED 1 EA UNK (Metoprolol Tartrate [Lopressor] 50 MG) PO SCH (21:00)
[2019-06-19] MEDS: METOPROLOL TAR 50 MG TAB PO SCH (21:26)
--- NOTE | 2019-06-20 01:23 | HP ---
Date of Admission: 06/18/2019 Chief Complaint: Wheezing and shortness of breath. History Of Present Illness: This patient was brought to the emergency room because of wheezing and s hortness of breath. The patient is known to have COPD. The patient after evaluation and management continued to have wheezing. At this point, the patient is admitted. There is no history of fever, c hills, or rigors. No history of hemoptysis or chest pain. Past Medical History: Positive for COPD, end-stage dialysis status due to polycystic kidney, hypothy roidism, and chronic anemia. Surgical History: Positive for aortic aneurysm repair in 2011. Family History: Hypertension present. Personal History: Currently nonsmoker. Allergies: NONE. Home Medicines: Levoxyl, Toprol. Review of Systems: No chest pain. Physical Examination: General: Revealed a 74-year-old male with audible wheezing, congested throat noted. Vital Signs: Otherwise normal. Neck: JVD negative. Chest: Bilateral wheezes. Heart: Regular. Abdomen: Soft. Extremities: No edema. Laboratory Data: Chest x-ray, no evidence of pneumonia. Laboratory, white count normal. Chem profi le: Creatinine 7.28. BNP 4100. Assessment: 1.Chronic obstructive pulmonary disease exacerbation. 2.End-stage renal disease, on dialysis. 3.Hypothyroidism. Plan: The patient received IV steroids and breathing treatments currently, he is doing much better. He is due to have a dialysis. GRAY/MATTHEW Voice ID: [id number]
[2019-06-20] MEDS: METHYLPREDNISOLONE 40 MG INJ IV SCH (06:09)
[2019-06-20] MEDS ORDERED: LEVOTHYROXINE SOD 0.05 MG TABLET PO SCH (06:30)
[2019-06-20 06:43] VITALS: BMI 27.4
[2019-06-20] MEDS: METOPROLOL TAR 50 MG TAB PO SCH (08:28)
[2019-06-20] MEDS: ASPIRIN EC 81 MG TAB PO SCH (08:29)
[2019-06-20 08:46] VITALS: BP 191/78; TEMP 97.8
[2019-06-20] MEDS ORDERED: FOLIC ACID PO SCH (09:00)
[2019-06-20] MEDS ORDERED: VIT B COMPLEX AND C PO SCH (09:00)
[2019-06-20] MEDS ORDERED: lisinopriL 10 MG TAB PO SCH (09:00)
[2019-06-20] MEDS ORDERED: MULTIVITAMINS,THERAPEUT 1 TAB PO SCH (09:00)
[2019-06-20 09:05] VITALS: O2SAT 95
[2019-06-20] MEDS ORDERED: NA CHLORIDE 0.9% 1,000 ML IV PRN (09:11)
[2019-06-20] MEDS ORDERED: ALBUMIN HUMAN 25% 50 ML IV SCH (10:00)
[2019-06-20] MEDS: AZITHROMYCIN IV 500 MG in NA CHLORIDE 0.9% 250 ML IVPB SCH (12:51)
--- NOTE | 2019-06-21 00:02 | PN ---
Date of Progress Note: 06/20/2019 Chief Complaint: End-stage renal disease, fluid overload. History Of Present Illness: Patient came to the hospital because of uncontrolled hypertension, COPD exacerbation. He was complaining of shortness of breath. He developed fluid overload and received d ialysis yesterday. Patient had a chest x-ray done, did not show any evidence of pneumonia. BNP was severely elevated up to 4100. Review of Systems: Denies fever, chills. Physical Examination: Lungs: Clear to auscultation bilaterally. Heart: S1, S2. Abdomen: Soft, benign. Extremities: Slight edema. Impression And Plan: 1.End-stage renal disease. Next dialysis tomorrow. Continue p.o. fluid restriction, low-sodium t. 2.Renal osteodystrophy. Continue renal diet and binders. 3.Hypertension. Continue blood pressure medication. 4.Chronic obstructive pulmonary disease exacerbation, shortness of breath. Patient will follow up w [facility]. EB/MODL Voice ID: [id number] Report ID: [id number]
== END 2019-06-20 15:27 | disposition home health service (06) | DRG 190 ==
LOC: ER 20:24 → ERHOLD 23:03 → 2ND 06-19 00:27
PROVIDERS: ADMIT Internal Medicine; ATTEND Internal Medicine
PROC: 5A1D70Z Performance of Urinary Filtration, Intermittent, Less than 6 Hours Per Day (ICD-10-PCS; principal; 2019-06-20)
DX: J44.1 Chronic obstructive pulmonary disease with (acute) exacerbation (principal); N18.6 End stage renal disease; I12.0 Hypertensive chronic kidney disease with stage 5 chronic kidney disease or end stage renal disease; Q61.3 Polycystic kidney, unspecified; J06.9 Acute upper respiratory infection, unspecified; N25.0 Renal osteodystrophy; E87.70 Fluid overload, unspecified; E03.9 Hypothyroidism, unspecified; D64.9 Anemia, unspecified; Z99.2 Dependence on renal dialysis
CPT/HCPCS: 36415; 71045; 80048; 80076; 83690; 83735; 83880; 84484; 85025; 85610; 86317; 86706; 87040; 87070; 87077; 87081; 87186; 87205; 87804; 90935; 93005; 94640; 94760; 96365; 96375; 99285; J0456; J0696; J1644; J2920; J2930; J7030

== ENCOUNTER 2019-07-04 22:20 | Emergency (ER) | payer OTHER ==
[2019-07-04 23:13] LABS: Absolute Lymphocytes (CBC) 1.4 K/uL (0.7-4.9); Basophils % 0.6 % (0-1.3); Hematocrit 32.3 % (39.6-49.0); Lymphocytes % 13.1 % (15.3-44.8); MPV 8.5 fL (7.6-11.3); Protime INR 1.12; RBC Red Blood Cell Count 3.26 M/uL (4.33-5.43)
[2019-07-04 23:33] LABS: ALT/SGPT 33 U/L (12-78); AST/SGOT 14 U/L (15-37); Alkaline Phosphatase 66 U/L (45-117); BUN Blood Urea Nitrogen 19 mg/dL (7-18); Bicarbonate 31 mmol/L (21-32); Bilirubin Direct < 0.1 mg/dL (0-0.2); Bilirubin Total 0.3 mg/dL (0.2-1.0); Glucose Level 87 mg/dL (74-106); Lipase 143 U/L (73-393); Magnesium 2.1 mg/dL (1.8-2.4); NT PRO-BNP 4001 pg/mL (<125); Potassium 4.3 mmol/L (3.5-5.1); Protein, Total 7.8 g/dL (6.4-8.2); Sodium Level 140 mmol/L (136-145); Troponin (Emerg Dept Use Only) < 0.02 ng/mL (0.0-0.045)
[2019-07-04] MEDS ORDERED: MORPHINE 4 MG/ML SYR ONE (23:34)
[2019-07-04] MEDS ORDERED: ONDANSETRON 4 MG/2 ML VIAL ONE (23:34)
--- NOTE | 2019-07-05 02:32 | EDPHYS ---
Physician Documentation [facility] Name: Robbie Kelly Age: 74 yrs Sex: Male : 1945 Arrival Date: 07/04/2019 Time: 22:27 Bed 4 Private MD: ED Physician Marino Hadley HPI: 07/04 23:36 This 74 yrs old Male presents to ER via Ambulatory with complaints of Back pm1 Pain, Chest Pain. 23:36 The patient presents with pain that is acute, with no known mechanism of injury. The pm1 symptoms are located in the right subscapular area. Onset: The symptoms/episode began/occurred 3 day(s) ago. Associated signs and symptoms: Pertinent positives: chest pain, epigastric pain, Pertinent negatives: dysuria, fever, headache, shortness of breath greater than baseline SOB from COPD. Severity of symptoms: in the emergency department the symptoms are unchanged. The patient has not experienced similar symptoms in the past. The patient has been recently seen by a physician: the patient's primary care provider, with different complaint(s), prescribed nebulizer for his COPD by PCP. Historical: - Allergies: 22:31 No Known Allergies; mg2 - Home Meds: 22:31 levothyroxine 75 mcg tab 1 tab once daily [Active]; metoprolol tartrate 50 mg Oral tab mg2 1 tab once daily for on days that he does not have dialysis [Active]; renal vitamin [Active]; Vitamin C Oral [Active]; - PMHx: 22:31 Anemia; COPD; Dialysis; M,W,F; Hypertension; Hypothyroidism; RENAL FAILURE; mg2 - PSHx: 22:31 AAA surgery; mg2 - Immunization history:: Flu vaccine is up to date. - Social history:: Smoking status: Patient/guardian denies using tobacco, Patient/guardian denies using alcohol, street drugs, IV drugs. - Ebola Screening: : No symptoms or risks identified at this time. ROS: 23:36 Constitutional: Negative for fever, chills, and weight loss, Eyes: Negative for injury, pm1 pain, redness, and discharge, ENT: Negative for injury, pain, and discharge, Neck: Negative for injury, pain, and swelling. 23:36 Respiratory: Negative for shortness of breath, cough, wheezing, and pleuritic chest pain. 23:36 : Negative for injury, bleeding, discharge, and swelling, MS/Extremity: Negative for injury and deformity, Skin: Negative for injury, rash, and discoloration, Neuro: Negative for headache, weakness, numbness, tingling, and seizure. 23:36 Cardiovascular: Positive for chest pain, Negative for palpitations. 23:36 Abdomen/GI: Positive for abdominal pain, of the epigastric area, Negative for nausea, vomiting, and diarrhea. 23:36 Back: Positive for of the right subscapular area, pain. Exam: 23:36 Constitutional: This is a well developed, well nourished patient who is awake, alert, pm1 and in no acute distress. Head/Face: Normocephalic, atraumatic. Neck: Trachea midline, no thyromegaly or masses palpated, and no cervical lymphadenopathy. Supple, full range of motion without nuchal rigidity, or vertebral point tenderness. No Meningismus. Chest/axilla: Normal chest wall appearance and motion. Nontender with no deformity. No lesions are appreciated. Cardiovascular: Regular rate and rhythm with a normal S1 and S2. No gallops, murmurs, or rubs. Normal PMI, no JVD. No pulse deficits. Respiratory: Lungs have equal breath sounds bilaterally, clear to auscultation and percussion. No rales, rhonchi or wheezes noted. No increased work of breathing, no retractions or nasal flaring. 23:36 Skin: Warm, dry with normal turgor. Normal color with no rashes, no lesions, and no evidence of cellulitis. MS/ Extremity: Pulses equal, no cyanosis. Neurovascular intact. Full, normal range of motion. 23:36 Abdomen/GI: Inspection: abdomen appears normal, Bowel sounds: normal, Palpation: soft, mild abdominal tenderness, in the epigastric area, mass, is not appreciated, rebound tenderness, is not appreciated. 23:36 Back: pain, that is mild, of the right subscapular area, normal spinal alignment noted. 23:36 Neuro: Orientation: is normal, Mentation: is normal, Motor: is normal, moves all fours, Sensation: is normal, no obvious gross deficits. Vital Signs: 22:32 BP 153 / 67; Pulse 82; Resp 18; Temp 98.1; Pulse Ox 100% on R/A; Weight 86.18 kg; mg2 Height 5 ft. 10 in. (177.80 cm); 23:30 BP 132 / 72; Pulse 87; Resp 13; Pulse Ox 97% on R/A; jb4 11 00:00 BP 118 / 58; Pulse 91; Resp 16; Pulse Ox 88% on R/A; jb4 00:15 Pulse Ox 94% on 2 lpm NC; jb4 01:00 BP 133 / 76; Pulse 89; Resp 16; Pulse Ox 94% on 2 lpm NC; jb4 01:30 BP 135 / 68; Pulse 87; Resp 16; Pulse Ox 98% on R/A; jb4 02:37 BP 119 / 58; Pulse 82; Resp 16; Pulse Ox 92% on R/A; jb4 07/04 22:32 Body Mass Index 27.26 (86.18 kg, 177.80 cm) mg2 00:00 Pt placed on 2L NC jb4 MDM: 07/04 22:45 Patient medically screened. pm1 07/05 02:30 Data reviewed: vital signs. Data interpreted: Pulse oximetry: on room air is 98 %. pm1 Interpretation: normal. Counseling: I had a detailed discussion with the patient and/or guardian regarding: the historical points, exam findings, and any diagnostic results supporting the discharge/admit diagnosis, lab results, radiology results, the need for outpatient follow up, for definitive care, a general surgeon, to return to the emergency department if symptoms worsen or persist or if there are any questions or concerns that arise at home. 02:30 ED course: 02/21/2018 and 03/08/2018 CT Abdomen/Pelvis comparison: Stable lower pm1 descending and upper abdominal aortic aneurysms. Discussed CT results with Dr. Hadley and we concluded that the stable aortic aneurysms are not causing the patients symptoms for the past three days. Cholelithiasis is a new finding on the CT and new to the patient. Clinically correlates with patient's symptom of right sided back pain and epigastric pain. 07/04 22:45 Order name: Basic Metabolic Panel; Complete Time: 23:42 pm1 07/04 22:45 Order name: CBC with Diff; Complete Time: 23:29 pm1 07/04 22:45 Order name: LFT's; Complete Time: 23:42 pm1 07/04 22:45 Order name: Magnesium; Complete Time: 23:42 pm1 07/04 22:45 Order name: NT PRO-BNP; Complete Time: 23:42 pm1 07/04 22:45 Order name: PT-INR; Complete Time: 23:29 pm1 07/04 22:45 Order name: Troponin (emerg Dept Use Only); Complete Time: 23:42 pm1 07/04 22:45 Order name: XRAY Chest (1 view) pm07/04 22:45 Order name: EKG; Complete Time: 22:46 pm1 07/04 22:45 Order name: Cardiac monitoring; Complete Time: 23:05 pm1 07/04 22:45 Order name: Lipase; Complete Time: 23:42 pm1 07/04 23:20 Order name: CT Aorta for Dissection 07/04 22:45 Order name: EKG - Nurse/Tech; Complete Time: 23:05 pm1 07/04 22:45 Order name: IV Saline Lock; Complete Time: 23:05 pm1 07/04 22:45 Order name: Labs collected and sent; Complete Time: 23:05 pm1 07/04 22:45 Order name: O2 Per Protocol; Complete Time: 23:05 pm1 07/04 22:45 Order name: O2 Sat Monitoring; Complete Time: 23:05 pm1 Administered Medications: 07/04 23:38 Drug: Zofran 4 mg Route: IVP; Site: right antecubital; [facility] [place] 07/05 00:00 Follow up: Response: No adverse reaction; Nausea is decreased [facility] [place] 07/04 23:41 Drug: morphine 4 mg {Note: Rass score 0.} Route: IVP; Site: right antecubital; [facility] [place] 07/05 00:00 Follow up: Response: No adverse reaction; Pain is decreased; RASS: Alert and Calm (0) [facility] [place] Disposition: 04:20 Co-signature as Attending Physician, Marino Hadley MD I agree with the assessment and kdr plan of care. Disposition: 07/05/19 02:32 Discharged to Home. Impression: Cholelithiasis. - Condition is Stable. - Discharge Instructions: Cholelithiasis. - Prescriptions for Tylenol- Codeine #3 300-30 mg Oral Tablet - take 2 tablets by ORAL route every 6 hours As needed; 20 tablet. Zofran 4 mg Oral Tablet - take 1 tablet by ORAL route every 12 hours As needed; 20 tablet. Bentyl 20 mg Oral Tablet - take 1 tablet by ORAL route every 6 hours As needed; 20 tablet. - Medication Reconciliation Form, Thank You Letter, Antibiotic Education, Prescription Opioid Use form. - Follow up: Emergency Department; When: As needed; Reason: Worsening of condition. Follow up: Avel Gongroa MD; When: 2 - 3 days; Reason: Recheck today's complaints, Continuance of care, Re-evaluation by your physician. - Problem is new. - Symptoms have improved. Signatures: Dispatcher [employer] EDMS Marino Hadley MD MD kdr Sukhwinder Villarreal NP HEAVY EQUIPMENT SUPERVISOR pm1 Warren Escobar, RN RN jb4 Neto Valentin RN RN mg2 Corrections: (The following items were deleted from the chart) 02:51 02:32 07/05/2019 02:32 Discharged to Home. Impression: Cholelithiasis. Condition is jb4 Stable. Forms are Medication Reconciliation Form, Thank You Letter, Antibiotic Education, Prescription Opioid Use. Follow up: Emergency Department; When: As needed; Reason: Worsening of condition. Follow up: Avel Gongora; When: 2 - 3 days; Reason: Recheck today's complaints, Continuance of care, Re-evaluation by your physician. Problem is new. Symptoms have improved. pm1
--- NOTE | 2019-07-05 02:32 | ER ---
Nurse's Notes [facility] Name: Robbie Kelly Age: 74 yrs Sex: Male : 1945 Arrival Date: 07/04/2019 Time: 22:27 Bed 4 Private MD: Diagnosis: Cholelithiasis Presentation: 07/04 22:28 Presenting complaint: Patient states: he was admitted last Noel for chest mg2 congestion and COPD and now he is here for back pain radiaiting to the chest and abdomen. it started 3 days ago. he had dialysis this morning and he was not feeling after. Transition of care: patient was not received from another setting of care. Onset of symptoms was June 2019. Risk Assessment: Do you want to hurt yourself or someone else? Patient reports no desire to harm self or others. Initial Sepsis Screen: Does the patient meet any 2 criteria? No. Patient's initial sepsis screen is negative. Does the patient have a suspected source of infection? No. Patient's initial sepsis screen is negative. Care prior to arrival: None. 22:28 Method Of Arrival: Ambulatory mg2 22:28 Acuity: DADA 3 mg2 Historical: - Allergies: 22:31 No Known Allergies; mg2 - Home Meds: 22:31 levothyroxine 75 mcg tab 1 tab once daily [Active]; metoprolol tartrate 50 mg Oral tab mg2 1 tab once daily for on days that he does not have dialysis [Active]; renal vitamin [Active]; Vitamin C Oral [Active]; - PMHx: 22:31 Anemia; COPD; Dialysis; M,W,F; Hypertension; Hypothyroidism; RENAL FAILURE; mg2 - PSHx: 22:31 AAA surgery; mg2 - Immunization history:: Flu vaccine is up to date. - Social history:: Smoking status: Patient/guardian denies using tobacco, Patient/guardian denies using alcohol, street drugs, IV drugs. - Ebola Screening: : No symptoms or risks identified at this time. Screenin:40 Abuse screen: Denies threats or abuse. Nutritional screening: No deficits noted. jb4 Tuberculosis screening: No symptoms or risk factors identified. Fall Risk None identified. Assessment: 22:40 General: Appears in no apparent distress. uncomfortable, Behavior is calm, cooperative, jb4 appropriate for age. Pain: Complains of pain in back, chest, abdomen and neck Pain does not radiate. Pain currently is 10 out of 10 on a pain scale. Quality of pain is described as solid pain Is continuous. Neuro: Level of Consciousness is awake, alert, obeys commands, Oriented to person, place, time, situation. Cardiovascular: Patient's skin is warm and dry. Respiratory: Airway is patent Respiratory effort is even, unlabored, Respiratory pattern is regular, symmetrical. GI: No signs and/or symptoms were reported involving the gastrointestinal system. : No signs and/or symptoms were reported regarding the genitourinary system. EENT: No signs and/or symptoms were reported regarding the EENT system. Derm: Skin is intact, Skin is pink, warm \T\ dry. Musculoskeletal: Circulation, motion, and sensation intact. Range of motion: intact in all extremities. 23:51 Reassessment: Patient appears in no apparent distress at this time. Patient and/or jb4 family updated on plan of care and expected duration. Pain level reassessed. Patient is alert, oriented x 3, equal unlabored respirations, skin warm/dry/pink. Patient states feeling better. 07/05 00:00 Reassessment: PT put on 2L NC after morphine administration. O2 88%. jb4 00:15 Reassessment: O2 up to 94% after O2 administration. jb4 01:00 Reassessment: Patient appears in no apparent distress at this time. Patient and/or jb4 family updated on plan of care and expected duration. Pain level reassessed. Patient is alert, oriented x 3, equal unlabored respirations, skin warm/dry/pink. 02:46 Reassessment: Patient appears in no apparent distress at this time. Patient and/or jb4 family updated on plan of care and expected duration. Pain level reassessed. Patient is alert, oriented x 3, equal unlabored respirations, skin warm/dry/pink. PT and verbalized understanding of d/c and follow up instructions. Ambulated out of ED with steady gait. Vital Signs: 07/04 22:32 BP 153 / 67; Pulse 82; Resp 18; Temp 98.1; Pulse Ox 100% on R/A; Weight 86.18 kg; mg2 Height 5 ft. 10 in. (177.80 cm); 23:30 BP 132 / 72; Pulse 87; Resp 13; Pulse Ox 97% on R/A; jb4 07/05 00:00 BP 118 / 58; Pulse 91; Resp 16; Pulse Ox 88% on R/A; jb4 00:15 Pulse Ox 94% on 2 lpm NC; jb4 01:00 BP 133 / 76; Pulse 89; Resp 16; Pulse Ox 94% on 2 lpm NC; jb4 01:30 BP 135 / 68; Pulse 87; Resp 16; Pulse Ox 98% on R/A; jb4 02:37 BP 119 / 58; Pulse 82; Resp 16; Pulse Ox 92% on R/A; jb4 07/04 22:32 Body Mass Index 27.26 (86.18 kg, 177.80 cm) mg2 00:00 Pt placed on 2L NC jb4 ED Course: 07/04 22:27 Patient arrived in ED. ds1 22:30 Triage completed. mg2 22:32 Arm band placed on. mg2 22:35 Sukhwinder Villarreal NP is PHCP. pm1 22:35 Marino Hadley MD is Attending Physician. pm1 22:40 Patient has correct armband on for positive identification. Placed in gown. Bed in low jb4 position. Call light in reach. Side rails up X 1. campus monitor on. Pulse ox on. NIBP on. 22:40 Initial lab(s) drawn, by me, sent to lab. Inserted saline lock: 20 gauge in right jb4 antecubital area, using aseptic technique. Blood collected. 22:42 Warren Escobar, LEXII is Primary Nurse. jb4 23:34 XRAY Chest (1 view) In Process Unspecified. EDMS 07/05 01:30 CT Aorta for Dissection In Process Unspecified. EDMS 02:31 Avel Gongora MD is Referral Physician. pm1 02:48 No provider procedures requiring assistance completed. IV discontinued, intact, jb4 bleeding controlled, No redness/swelling at site. Pressure dressing applied. Administered Medications: 07/04 23:38 Drug: Zofran 4 mg Route: IVP; Site: right antecubital; jb4 07/05 00:00 Follow up: Response: No adverse reaction; Nausea is decreased jb4 07/04 23:41 Drug: morphine 4 mg {Note: Rass score 0.} Route: IVP; Site: right antecubital; jb4 07/05 00:00 Follow up: Response: No adverse reaction; Pain is decreased; RASS: Alert and Calm (0) jb4 Outcome: 02:32 Discharge ordered by MD. pm1 02:48 Discharged to home ambulatory, with family. jb4 02:48 Condition: stable 02:48 Discharge instructions given to patient, family, Instructed on discharge instructions, follow up and referral plans. medication usage, Demonstrated understanding of instructions, follow-up care, medications, Prescriptions given X 3. 02:51 Patient left the ED. jb4 Signatures: Dispatcher [employer] [facility] Rand Fuller ds1 Sukhwinder Villarreal, ZEE DIGITAL COMPOSER pm1 Warren Escobar, RN RN jb4 Neto Valentin RN RN mg2
[2019-07-05 03:06] VITALS: TEMP 98.1
[2019-07-05 03:14] VITALS: BP 119/58; O2SAT 92
--- NOTE | 2019-07-05 08:01 | RAD REPORT ---
EXAM DESCRIPTION: RAD - Chest Single View - 07/04/2019 11:33 pm CLINICAL HISTORY: COPD, cough and congestion, chest pain COMPARISON: June 19, 2019 TECHNIQUE: AP portable chest image was obtained 2327 hours . FINDINGS: No new mass or consolidation seen. Chronic interstitial lung pattern matches the compariso n. No acute failure or volume overload. Heart and vasculature are normal. No measurable pleural effusion and no pneumothorax. No acute bony abnormality seen. No acute aortic findings suspected. IMPRESSION: No acute cardiopulmonary process. Chest findings are stable from June 19.
--- NOTE | 2019-07-06 06:37 | EKG ---
Test Date: 2019-07-04 Test Time: 22:59:34 Refrigeration Brazer/Solderer: DANIA MEASUREMENT RESULTS: Intervals: Rate: 84 IN: 170 QRSD: 96 QT: 358 QTc: 423 Farnam: P: 59 IN: 170 QRS: 47 T: 64 INTERPRETIVE STATEMENTS: Normal sinus rhythm Normal ECG Compared to ECG 06/19/2019 09:14:11 No significant changes Electronically Signed On 07-06-19 06:37:03 HARNESS MENDER by Filiberto Ureña
--- NOTE | 2019-07-07 12:05 | RAD REPORT ---
EXAM DESCRIPTION: CT - Angio Aorta For Dissection - 07/05/2019 6:05 am CLINICAL HISTORY: 74 years Male Back pain, abdominal pain; Chest pain TECHNIQUE: Contiguous axial images obtained through the chest, abdomen, and pelvis during the rapid administration of IV contrast. Coronal and sagittal reformatted images provided. This CT exam was performed according to our departmental dose-optimization program, which includes on e or more of the following dose reduction techniques: automated exposure control, adjustment of the m A and/or kV according to patient size, and/or use of iterative reconstruction technique. COMPARISON: No prior exams provided for comparison. FINDINGS: The heart is normal in size. There is extensive atherosclerosis. The ascending aorta is no rmal in caliber. There is fusiform dilatation of the descending thoracic aorta measuring up to 5 cm without dissection or rupture. The celiac axis, superior mesenteric artery, and attenuated renal arteries are patent. There has been bifurcated endograft repair of an infrarenal abdominal aortic aneurysm. The aneurysm s ac measures 4.1 cm in caliber. The graft is patent. No visualized findings to suggest endoleak or rup ture. Occlusion of the inferior mesenteric artery. There is severe emphysema with scattered areas of pulmonary scarring. Calcified and noncalcified scat tered pulmonary nodules. No airspace infiltrate, pleural effusion, or pneumothorax. No pleural effusi on or pneumothorax. The central airways are patent. No lymphadenopathy in the chest. Polycystic kidneys and liver. No hydronephrosis or retroperitoneal hemorrhage. Normal urinary bladder . Trace sludge in the gallbladder without evidence of acute cholecystitis or biliary dilatation. The pancreas, spleen, and adrenal glands are normal. There is distal colonic diverticulosis without diverticulitis, bowel inflammation, obstruction, free intraperitoneal air, or ascites. The appendix is normal. Minimal bibasilar atelectasis. Lower lumbar degenerative disc disease. No acute fracture or aggressiv e osseous lesion. IMPRESSION: Extensive atherosclerosis. Normal caliber ascending aorta. The descending thoracic aorta measures up to 5 cm in caliber without dissection or rupture. Vascular evaluation recommended. Bifurcated endograft repair of an infrarenal abdominal aortic aneurysm without evidence of occlusion or leak. Severe emphysema. Polycystic kidney and liver. Electronically signed by: Yadira Schneider MD 07/05/2019 1:48 AM INSOLE TOE SNIPPING MACHINE OPERATOR Due to temporary technical issues with the PACS/Fluency reporting system, reports are being signed by the in house radiologist as a courtesy to ensure prompt reporting. The interpreting radiologist is f ully responsible for the content of the report.
== END 2019-07-05 02:51 | disposition home or self-care (01) ==
LOC: ER 22:20
DX: K80.20 Calculus of gallbladder without cholecystitis without obstruction (principal); R07.9 Chest pain, unspecified; I12.0 Hypertensive chronic kidney disease with stage 5 chronic kidney disease or end stage renal disease; N18.6 End stage renal disease; E03.9 Hypothyroidism, unspecified; J44.9 Chronic obstructive pulmonary disease, unspecified
CPT/HCPCS: 93005; 85025; 80048; 36415; 83735; 85610; 80076; 84484; 83690; 83880; 71275; 74175; 71045; 96375; 96374; 99284; Q9967; J2405

== ENCOUNTER 2019-09-12 07:15 | Day surgery (SDC) | payer OTHER ==
[2019-09-11 10:26] LABS: Albumin 3.4 g/dL (3.4-5.0); Bilirubin Direct 0.1 mg/dL (0-0.2); Bilirubin Total 0.4 mg/dL (0.2-1.0); Potassium 4.3 mmol/L (3.5-5.1); Protein, Total 7.9 g/dL (6.4-8.2)
[2019-09-11 10:30] LABS: Absolute Lymphocytes (CBC) 2.4 K/uL (0.7-4.9); Basophils % 0.6 % (0-1.3); Hematocrit 34.7 % (39.6-49.0); Lymphocytes % 21.8 % (15.3-44.8); MPV 8.7 fL (7.6-11.3); RBC Red Blood Cell Count 3.51 M/uL (4.33-5.43)
--- NOTE | 2019-09-11 11:18 | RAD REPORT ---
EXAM DESCRIPTION: RAD - Chest Pa And Lat (2 Views) - 09/11/2019 9:58 am CLINICAL HISTORY: pre-op surgery Chest pain. COMPARISON: Chest Single View dated 07/04/2019; Chest Single View dated 06/19/2019; Chest Single View dated 06/18/2019; Chest Pa And Lat (2 Views) dated 02/21/2018 FINDINGS: Prominent diffuse COPD is present. Linear scarring and atelectasis in both lung bases. The heart is normal in size. No displaced fractures. IMPRESSION: Prominent diffuse COPD.
[2019-09-12] MEDS ORDERED: dexAMETHasone 10 MG/ML VIAL ONE (07:17)
[2019-09-12] MEDS ORDERED: MIDAZOLAM HCL 2 MG/2 ML INJ ONE (07:17)
[2019-09-12] MEDS ORDERED: FENTANYL CITR 100 MCG/2 ML ONE (07:17)
[2019-09-12] MEDS ORDERED: LIDOCAINE 2% MPF 5 ML VIAL ONE (07:17)
[2019-09-12] MEDS ORDERED: ROCURONIUM 50 MG/5 ML VIAL IV ONE (07:17)
[2019-09-12] MEDS ORDERED: propofoL 200 MG/20 ML VIAL IV ONE (07:17)
[2019-09-12] MEDS ORDERED: CEFOXITIN/SWI 1gm 1 GM/10 ML SYR ONE (07:55)
[2019-09-12] MEDS ORDERED: NA CHLORIDE 0.9% 500 ML ONE (07:55)
[2019-09-12] MEDS ORDERED: GLYCOPYRROLATE 0.2 MG/ML SYR ONE (09:10)
[2019-09-12] MEDS ORDERED: NEOSTIGMINE 1 MG/ML -5 ML ONE (09:11)
--- NOTE | 2019-09-12 09:13 | P.BOP ---
Preoperative diagnosis: acute cholecystitis, symptomatic cholelithiasis Postoperative diagnosis: same Primary procedure: Laparoscopic cholecystectomy Head Chopper: Madeline Avalos (Verito) Estimated blood loss: <10cc Specimen: gb Findings: as above Anesthesia: General Complications: None Transferred to: Recovery Room Condition: Good
[2019-09-12 14:00] VITALS: BP 135/63; TEMP 87.3; O2SAT 92
--- NOTE | 2019-09-12 15:22 | OP ---
Date of Procedure: 09/12/2019 Surgeon: Avel Gongora MD Baseball Club Manager: JOSÉ MIGUEL Neely. Preoperative Diagnoses: Acute cholecystitis, symptomatic cholelithiasis, acute abdominal pain. Postoperative Diagnoses: Acute cholecystitis, symptomatic cholelithiasis, acute abdominal pain. Procedure: Laparoscopic cholecystectomy. Estimated Blood Loss: Less than 10 mL. Specimens: Gallbladder. Anesthesia: General plus local. Indications: This is the case of a patient who came to us with the above diagnosis. The benefits, a lternatives, and risks of laparoscopic, possible open cholecystectomy were fully explained to the pat ient, which include, but are not limited to infection, bleeding, damage to adjacent structures, anest hesia complications, recurrence, ND, and even . He also understands this may not relieve any sy mptoms, he might need more than one surgical intervention. He understood, signed a consent. Description Of Procedure: Patient was brought to the operating room, placed in supine position. Ane sthesia was done without complication. Abdominal area was prepped and draped in a sterile fashion. Marcaine 0.5% was injected for local anesthetic, followed by sharp incision of the skin in the infrau mbilical region. Incision was carried down to fascia, which was opened under direct vision. Periton eum was encountered, opened under direct vision. Vicryl #1 placed inside the fascia. Snow trocar was carefully introduced. No bleeding was obtained. I placed 3 more trocars, 5 mm each one of them in the epigastric and right upper quadrant area. Grasper was placed in the fundus of the gallbladder , another grasper in the infundibulum, retracting the gallbladder in the inferolateral fashion exposi ng the triangle of Calot obtaining critical view of safety. Cystic duct and cystic artery were clear ly isolated, freed circumferentially and a connection between those and the gallbladder was clearly i dentified. I proceeded to ligate those by using at least 3 clips proximal, 1 clip distal, ligation i n middle. Same was done with the cystic artery. No bile leak. No bleeding. The gallbladder was re moved from the abdomen using the EndoCatch through the umbilical incision. The area was inspected on ce again. Clips were intact. No bile leak. No bleeding. At that moment, I proceeded to remove the trocars under direct vision. Deflated pneumoperitoneum. Closed the fascia with #1 Vicryl. Irrigat ed subcutaneous tissue, closed that with 3-0 chromic and skin in a subcuticular fashion with Steri-St rips on top. Sponge count and instrument counts were correct. The patient tolerated the procedure w ell. Patient was sent to recovery in stable condition. SWETHA/MATTHEW Voice ID: [id number] Report ID: [id number]
--- NOTE | 2019-09-12 15:23 | DS ---
Date of Discharge: 09/12/2019 Preoperative Diagnoses: Acute cholecystitis, symptomatic cholelithiasis. Postoperative Diagnoses: Acute cholecystitis, symptomatic cholelithiasis. Procedure: Laparoscopic cholecystectomy. Anesthesia: General plus local. Disposition: Home. Activity: As tolerated. No heavy lifting. Followup: Followup in my office in 1 week. Call for an appointment at [phone]. Patient advised to continue all guidance with his primary doctor for his chronic conditions. Medications: See orders. SWETHA/MATTHEW Voice ID: [id number] Report ID: [id number]
== END 2019-09-12 11:15 | disposition home or self-care (01) ==
LOC: OR 07:15
PROVIDERS: ATTEND Surgery
PROC: 0FT44ZZ Resection of Gallbladder, Percutaneous Endoscopic Approach (ICD-10-PCS; principal; 2019-09-12 09:00)
DX: K80.12 Calculus of gallbladder with acute and chronic cholecystitis without obstruction (principal); I12.0 Hypertensive chronic kidney disease with stage 5 chronic kidney disease or end stage renal disease; N18.6 End stage renal disease; J43.9 Emphysema, unspecified; E07.9 Disorder of thyroid, unspecified; Z99.2 Dependence on renal dialysis; Z80.1 Family history of malignant neoplasm of trachea, bronchus and lung; Z80.3 Family history of malignant neoplasm of breast; Z82.49 Family history of ischemic heart disease and other diseases of the circulatory system
CPT/HCPCS: 85025; 80048; 36415 ×2; 82150; 84132; 80076; 88304; 83690; 71046; 47562; J2704; J2250; J3010; J1100; J2710; J7040

== ENCOUNTER 2019-12-15 05:09 | Emergency (ER) | payer OTHER ==
--- OUTSIDE RECORDS SUMMARY | 2019-12-15 05:11 | XMS REPORT | Clinical Summary ---
:1945 Author Organization [facility] Address [address] [place] [address] Care Team Providers Name Role Phone Mookie Gil Primary Care Provider Unavailable Allergies No Known Allergies Medications Medication Sig Dispensed Refills Start Date End Date Status metoprolol (TOPROL-XL) Take 50 mg by 0 Active 50 MG 24 hr tablet mouth 2 (two) times daily. levothyroxine Take 75 mcg by 0 A ctive (SYNTHROID, LEVOTHROID) mouth Every 75 MCG tablet morning on an empty stomach. multivitamin with Take 1 tablet by 0 Active minerals tablet mouth daily. diphenhydrAMINE Take 25 mg by 0 Active (BENADRYL) 25 mg tablet mouth every night as needed for Sleep. acetaminophen (TYLENOL) Place 650 mg 0 Active 650 MG suppository rectally every 4 (four) hours as needed for Fever. Active Problems Problem Noted Date Pre-transplant evaluation for chronic kidney disease 0 12/19/2016 Last Assessment & Plan: Due to his age, history of COPD, and AAA repair he is not an acceptable candidate for kidney transplant. He understood and agreed with this decis ion. HTN (hypertension) 12/19/2016 Last Assessment & Plan: Continue management with nephrology as p rescribed. Aortic aneurysm 12/19/2016 Last Assessment & Plan: Repaired with a stent in 2012. Polycystic kidney 12/19/2016 COPD (chronic obstructive pulmonary disease) 7 Last Assessment & Plan: Controlled with inhalers. [...] Assigned at Date Recorded Not on file Job Start Date Occupation Industry Not on file Not on file Not on file Travel History Travel Start Travel End No recent travel history available. Last Filed Vital Signs Not on file Plan of Treatment Health Maintenance Due Date Last Done Comments INFLUENZA VACCINE 03/25/2018 Results Not on fileafter 12/14/2018 Insurance Payer Benefit Plan / Group Subscriber ID Type Phone A ddress MEDICARE MEDICARE A B xxxxxxxxxx Medicare MCR SUPPLEMENT/[employer] [facility]
[2019-12-15] MEDS ORDERED: LEVALBUTEROL 1.25 MG/3 ML NEB ONE ×2 (05:56→06:57)
[2019-12-15] MEDS ORDERED: NA CHLORIDE 0.9% 500 ML ONE (05:56)
[2019-12-15] MEDS ORDERED: METHYLPREDNISOLONE 125 MG INJ ONE (05:56)
[2019-12-15] MEDS ORDERED: IPRATROPIUM BROM 0.5MG/2.5ML ONE (05:56)
[2019-12-15] MEDS ORDERED: CEFTRIAXONE/SWI 1gm 1 GM/10 ML SYR ONE (05:57)
[2019-12-15 05:59] LABS: Urine Bacteria <20 /HPF (NONE SEEN); Urine Culture Reflex Order REFLEXED; Urine RBC TNTC /HPF (NONE SEEN)
[2019-12-15 06:06] LABS: Absolute Lymphocytes (CBC) 1.8 K/uL (0.7-4.9); Basophils % 0.9 % (0-1.3); Hematocrit 33.4 % (39.6-49.0); Lymphocytes % 13.6 % (15.3-44.8); MPV 8.7 fL (7.6-11.3)
[2019-12-15 06:19] LABS: Protime INR 1.03
[2019-12-15] MEDS ORDERED: FENTANYL CITR 100 MCG/2 ML ONE (06:33)
[2019-12-15] MEDS ORDERED: ONDANSETRON 4 MG/2 ML VIAL ONE (06:33)
[2019-12-15 06:34] LABS: ALT/SGPT 19 U/L (12-78); AST/SGOT 13 U/L (15-37); Albumin 3.5 g/dL (3.4-5.0); Alkaline Phosphatase 65 U/L (45-117); BUN Blood Urea Nitrogen 42 mg/dL (7-18); Bicarbonate 25 mmol/L (21-32); Bilirubin Direct 0.1 mg/dL (0-0.2); Bilirubin Total 0.4 mg/dL (0.2-1.0); Glucose Level 122 mg/dL (74-106); Magnesium 2.3 mg/dL (1.8-2.4); NT PRO-BNP 5373 pg/mL (<125); Potassium 4.8 mmol/L (3.5-5.1); Protein, Total 7.8 g/dL (6.4-8.2); Sodium Level 140 mmol/L (136-145); Troponin (Emerg Dept Use Only) < 0.02 ng/mL (0.0-0.045)
[2019-12-15 06:55] LABS: Urine Blood 3+ (NEG); Urine Glucose NEGATIVE (NEG); Urine Protein 3+ (NEG); Urine Specific Gravity 1.025 (1.005-1.030)
[2019-12-15] MEDS ORDERED: predniSONE 20 MG TAB ONE (06:56)
[2019-12-15] MEDS ORDERED: levoFLOXacin 250 MG TAB ONE (06:56)
--- NOTE | 2019-12-15 07:07 | EDPHYS ---
Physician Documentation [facility] Name: Robbie Kelly Age: 74 yrs Sex: Male : 1945 Arrival Date: 12/15/2019 Time: 05:12 Bed 7 Private MD: JEAN CLAUDE Physician Derrick Brooke HPI: 12/14 05:48 This 74 yrs old Male presents to ER via Wheelchair with complaints of Urinary mitchell Problem, BLOOD IN URINE. 05:48 The patient has shortness of breath at rest, with light activity. mitchell Historical: - Allergies: 05:34 No Known Allergies; vc - Home Meds: 05:32 levothyroxine 75 mcg tab 1 tab once daily [Active]; metoprolol tartrate 50 mg Oral tab vc 1 tab once daily for on days that he does not have dialysis [Active]; renal vitamin [Active]; Vitamin C Oral [Active]; - PMHx: 05:33 Anemia; COPD; Dialysis; M,W,F; Hypertension; Hypothyroidism; RENAL FAILURE; Polycystic vc kidney disease; - PSHx: 05:33 AAA surgery; vc - Immunization history:: Adult Immunizations up to date, Pneumococcal vaccine is up to date, Flu vaccine is up to date. - Social history:: Smoking status: Patient reports the use of cigarette tobacco products, denies chronic smoking, but will smoke occasionally, states has not smoked in a month. ROS: 05:57 Abdomen/GI: Positive for nausea and vomiting. mitchell 05:57 Eyes: Negative for injury, pain, redness, and discharge, ENT: Negative for injury, mitchell pain, and discharge, Neck: Negative for injury, pain, and swelling, Cardiovascular: Negative for chest pain, palpitations, and edema, Back: Negative for injury and pain, MS/Extremity: Negative for injury and deformity, Skin: Negative for injury, rash, and discoloration, Neuro: Negative for headache, weakness, numbness, tingling, and seizure, Psych: Negative for depression, anxiety, suicide ideation, homicidal ideation, and hallucinations, Allergy/Immunology: Negative for hives, rash, and allergies, Endocrine: Negative for neck swelling, polydipsia, polyuria, polyphagia, and marked weight changes, Hematologic/Lymphatic: Negative for swollen nodes, abnormal bleeding, and unusual bruising. 05:57 Constitutional: Positive for body aches. 05:57 Respiratory: Positive for 05:57 Respiratory: Positive for cough, shortness of breath, wheezing, inspiratory, expiratory. 05:57 Abdomen/GI: Positive for nausea and vomiting, abdominal cramps, abdominal distension. Exam: 05:57 Head/Face: Normocephalic, atraumatic. Eyes: Pupils equal round and reactive to light, mitchell extra-ocular motions intact. Lids and lashes normal. Conjunctiva and sclera are non-icteric and not injected. Cornea within normal limits. Periorbital areas with no swelling, redness, or edema. ENT: Nares patent. No nasal discharge, no septal abnormalities noted. Tympanic membranes are normal and external auditory canals are clear. Oropharynx with no redness, swelling, or masses, exudates, or evidence of obstruction, uvula midline. Mucous membranes moist. Neck: Trachea midline, no thyromegaly or masses palpated, and no cervical lymphadenopathy. Supple, full range of motion without nuchal rigidity, or vertebral point tenderness. No Meningismus. Chest/axilla: Normal chest wall appearance and motion. Nontender with no deformity. No lesions are appreciated. Cardiovascular: Regular rate and rhythm with a normal S1 and S2. No gallops, murmurs, or rubs. Normal PMI, no JVD. No pulse deficits. Back: No spinal tenderness. No costovertebral tenderness. Full range of motion. Male : Normal genitalia with no discharge or lesions. Skin: Warm, dry with normal turgor. Normal color with no rashes, no lesions, and no evidence of cellulitis. MS/ Extremity: Pulses equal, no cyanosis. Neurovascular intact. Full, normal range of motion. Neuro: Awake and alert, GCS 15, oriented to person, place, time, and situation. Cranial nerves II-XII grossly intact. Motor strength 5/5 in all extremities. Sensory grossly intact. Cerebellar exam normal. Normal gait. Psych: Awake, alert, with orientation to person, place and time. Behavior, mood, and affect are within normal limits. 05:57 Constitutional: The patient appears in obvious distress, moderately distressed. 05:57 Respiratory: mild respiratory distress is noted, moderate respiratory distress is noted, Respirations: labored breathing, that is mild, that is moderate, Breath sounds: bronchial sounds, decreased breath sounds, rhonchi, wheezing: inspiratory expiratory 05:57 Abdomen/GI: Inspection: distension, Bowel sounds: normal, Palpation: mild abdominal tenderness, in all quadrants, Liver: no appreciated palpable abnormalities, Hernia: not appreciated. Vital Signs: 05:28 BP 189 / 81; Pulse 71; Resp 95; Temp 98.4; Pulse Ox 95% on R/A; Weight 81.19 kg; Height vc 5 ft. 10 in. (177.80 cm); 06:29 BP 179 / 78; Pulse 67; Resp 18; Pulse Ox 100% on Nebulizer Mask; Pain 10/10; rv 07:21 BP 168 / 70; Pulse 80; Resp 19; Temp 98.5; Pulse Ox 92% ; bp 05:28 Body Mass Index 25.68 (81.19 kg, 177.80 cm) vc MDM: 05:29 Patient medically screened. mitchell 05:59 Differential diagnosis: asthma, Bronchitis CHF exacerbation, Chronic Obstructive mitchell Pulmonary Disease bronchitis, URI, CHF, nonspecific abdominal pain, UTI, urethritis, pneumonia, pulmonary edema, reactive airway disease. Antibiotic administration: rocephin. Immunization status: Pneumococcal vaccine: Influenza vaccine: Data reviewed: vital signs, nurses notes, lab test result(s), EKG, radiologic studies, CT scan, plain films. Data interpreted: men's locker room attendant: rate is 95 beats/min, rhythm is normal sinus rhythm, Pulse oximetry: on room air is 95 %. Test interpretation: by ED physician or midlevel provider: plain radiologic studies, ct stone as needed. Counseling: I had a detailed discussion with the patient and/or guardian regarding: the historical points, exam findings, and any diagnostic results supporting the discharge/admit diagnosis, lab results, radiology results. 06:55 ED course: PT BREATHING MUCH IMPROVED, 2 MM UVJ CALCULI,NO RETENTION, WILL GO TO [facility] DIALYSIS UPON DC. 12/14 05:32 Order name: Urine Microscopic Only; Complete Time: 06:10 vc 12/14 05:38 Order name: Urine Dipstick--Ancillary (enter results); Complete Time: 07:06 mw2 12/14 05:46 Order name: Basic Metabolic Panel; Complete Time: 06:44 mitchell 12/14 05:46 Order name: CBC with Diff; Complete Time: 06:10 mitchell 12/14 05:46 Order name: LFT's; Complete Time: 06:44 [facility] 12/14 05:46 Order name: Magnesium; Complete Time: 06:44 [facility] 12/14 05:46 Order name: NT PRO-BNP; Complete Time: 06:44 [facility] 12/14 05:46 Order name: PT-INR; Complete Time: 06:44 [facility] 12/14 05:46 Order name: Troponin (emerg Dept Use Only); Complete Time: 06:44 [facility] 12/14 05:46 Order name: XRAY Chest (1 view) [facility] 12/14 05:46 Order name: Urine Culture [facility] 12/14 05:46 Order name: CT Stone Protocol [facility] 12/14 05:32 Order name: Urine Dipstick-Ancillary (obtain specimen); Complete Time: 05:38 12/14 05:46 Order name: Cardiac monitoring; Complete Time: 06:02 [facility] 12/14 05:46 Order name: EKG - Nurse/Tech; Complete Time: 06:02 [facility] 12/14 05:46 Order name: IV Saline Lock; Complete Time: 06:02 [facility] 12/14 05:46 Order name: Labs collected and sent; Complete Time: 06:02 [facility] 12/14 05:46 Order name: O2 Per Protocol; Complete Time: 06:02 [facility] 12/14 05:46 Order name: O2 Sat Monitoring; Complete Time: 06:02 [facility] 12/14 05:51 Order name: Bladder Scanner: if post residual greater than 100, thompson please; Complete [facility] Time: 06:59 Administered Medications: 05:55 Drug: SOLU-Medrol 125 mg Route: IVP; Site: right antecubital; rv 06:29 Follow up: Response: No adverse reaction; Marked relief of symptoms rv 05:56 Drug: Xopenex 3.75 mg Route: Inhalation; rv 06:29 Follow up: Response: Marked relief of symptoms rv 05:56 Drug: AtroVENT Aerosol 0.5 mg Route: Inhalation; rv 06:29 Follow up: Response: Marked relief of symptoms rv 05:56 Drug: NS 0.9% 1000 ml Route: IV; Rate: 30 ml/hr; Site: right antecubital; rv 07:36 Follow up: IV Status: Completed infusion; IV Intake: 60ml bp 06:15 Drug: Rocephin 1 grams Route: IV; Rate: per protocol; Site: right antecubital; rv 06:29 Follow up: IV Status: Completed infusion rv 06:28 Drug: Zofran (Ondansetron) 4 mg Route: IVP; Site: right antecubital; rv 07:28 Follow up: Response: Nausea is decreased bp 06:28 Drug: fentaNYL (PF) 25 mcg {Note: RASS 0.} Route: IVP; Site: right antecubital; rv 07:28 Follow up: Response: Pain is decreased bp 06:45 Drug: fentaNYL (PF) 100 mcg Route: IVP; Site: right antecubital; bp 07:35 Follow up: Response: Pain is decreased bp 06:59 Drug: predniSONE 40 mg Route: PO; rv 07:28 Follow up: Response: No adverse reaction bp 06:59 Drug: Xopenex 1.25 mg Route: Inhalation; rv 06:59 Drug: LevOfloxacin 250 mg Route: PO; rv 07:28 Follow up: Response: No adverse reaction bp 07:15 Drug: Flomax 0.4 mg Route: PO; bp 07:28 Follow up: Response: No adverse reaction bp Disposition: 12/15/19 07:06 Discharged to Home. Impression: Hematuria, Polycystic kidney, adult type, End stage renal disease - on HD M,W,F, Chronic obstructive pulmonary disease with (acute) exacerbation, Hydronephrosis with renal and ureteral calculous obstruction - 2 MM UVJ. - Condition is Fair. - Discharge Instructions: Chronic Bronchitis, Chronic Obstructive Pulmonary Disease, How to Use an Inhaler, Kidney Stones, Chronic Obstructive Pulmonary Disease Exacerbation, Kidney Stones, Yzza-[id number], Chronic Obstructive Pulmonary Disease, [id number], Dialysis, Hydronephrosis, End-Stage Kidney Disease, Chronic Kidney Disease, Adult, Pedz-ig-Brgz, Cough, Adult, Dietary Guidelines to Help Prevent Kidney Stones, Dialysis Diet, Fact-df-[id number], Chronic Obstructive Pulmonary Disease Exacerbation, Amxe-yn-[id number]. - Prescriptions for Levaquin 250 mg Oral Tablet - take 1 tablet by ORAL route every other day for 5 days; 5 tablet. Tylenol- Codeine #3 300-30 mg Oral Tablet - take 2 tablet by ORAL route every 6 hours As needed; 30 tablet. Albuterol Sulfate 2.5 mg /3 mL (0.083 %) Inhalation Solution for Nebulization - inhale 1 unit by NEBULIZATION route every 8 hours As needed; 1 box. Flomax 0.4 mg Oral Capsule, Sust. Release 24 hr - take 1 capsule by ORAL route once daily 1/2 hour following the same meal each day; 30 capsule. Prednisone 20 mg Oral Tablet - take 2 tablet by ORAL route once daily for 5 days; 10 tablet. - Medication Reconciliation Form, Thank You Letter, Antibiotic Education, Prescription Opioid Use form. - Follow up: Private Physician; When: 2 - 3 days; Reason: Recheck today's complaints, Continuance of care, Re-evaluation by your physician. Follow up: Robert Evangelistavik; When: Upon discharge from the Emergency Department; Reason: Recheck today's complaints, Continuance of care, Re-evaluation by your physician. Follow up: Nathanael Boyce; When: 2 - 3 days; Reason: Recheck today's complaints, Re-evaluation by your physician. - Problem is new. - Symptoms have improved. Signatures: Dispatcher [employer] EDMS Derrick Brooke MD MD cha Page, Corey, PA PA cp Baxter, Heather, RN RN hb Peltier, Brian, RN RN bp Vicente, Ronaldo, RN RN rv Judi Laguerre RN RN vc Corrections: (The following items were deleted from the chart) 05:58 05:57 Constitutional: Negative for fever, chills, and weight loss, Eyes: Negative for mitchell injury, pain, redness, and discharge, ENT: Negative for injury, pain, and discharge, Neck: Negative for injury, pain, and swelling, Cardiovascular: Negative for chest pain, palpitations, and edema, Respiratory: Negative for shortness of breath, cough, wheezing, and pleuritic chest pain, Abdomen/GI: Negative for abdominal pain, nausea, vomiting, diarrhea, and constipation, : Negative for injury, bleeding, discharge, and swelling, MS/Extremity: Negative for injury and deformity, Skin: Negative for injury, rash, and discoloration, Neuro: Negative for headache, weakness, numbness, tingling, and seizure, Psych: Negative for depression, anxiety, suicide ideation, homicidal ideation, and hallucinations, Allergy/Immunology: Negative for hives, rash, and allergies, Endocrine: Negative for neck swelling, polydipsia, polyuria, polyphagia, and marked weight changes, Hematologic/Lymphatic: Negative for swollen nodes, abnormal bleeding, and unusual bruising, mitchell 05:58 05:57 Back: Positive for flank pain, bilaterally, mitchell mitchell 07:36 07:06 12/15/2019 07:06 Discharged to Home. Impression: Hematuria; Polycystic kidney, hb adult type; End stage renal disease - on HD M,W,F; Chronic obstructive pulmonary disease with (acute) exacerbation; Hydronephrosis with renal and ureteral calculous obstruction - 2 MM UVJ. Condition is Fair. Discharge Instructions: Chronic Bronchitis, Chronic Obstructive Pulmonary Disease, How to Use an Inhaler, Kidney Stones, Chronic Obstructive Pulmonary Disease Exacerbation, Kidney Stones, Xhue-vo-[id number], Chronic Obstructive Pulmonary Disease, Haoe-od-Oals, Dialysis, Hydronephrosis, End-Stage Kidney Disease, Chronic Kidney Disease, Adult, Djll-vg-Mneq, Cough, Adult, Dietary Guidelines to Help Prevent Kidney Stones, Dialysis Diet, Bacg-cl-Lodc, Chronic Obstructive Pulmonary Disease Exacerbation, Rnan-ib-Pohb. Prescriptions for Levaquin 250 mg Oral Tablet - take 1 tablet by ORAL route every other day for 5 days; 5 tablet, Tylenol-Codeine #3 300-30 mg Oral Tablet - take 2 tablet by ORAL route every 6 hours As needed; 30 tablet, Albuterol Sulfate 2.5 mg /3 mL (0.083 %) Inhalation Solution for Nebulization - inhale 1 unit by NEBULIZATION route every 8 hours As needed; 1 box, Flomax 0.4 mg Oral Capsule, Sust. Release 24 hr - take 1 capsule by ORAL route once daily 1/2 hour following the same meal each day; 30 capsule, Prednisone 20 mg Oral Tablet - take 2 tablet by ORAL route once daily for 5 days; 10 tablet. and Forms are Medication Reconciliation Form, Thank You Letter, Antibiotic Education, Prescription Opioid Use. Follow up: Private Physician; When: 2 - 3 days; Reason: Recheck today's complaints, Continuance of care, Re-evaluation by your physician. Follow up: Robert Hector; When: Upon discharge from the Emergency Department; Reason: Recheck today's complaints, Continuance of care, Re-evaluation by your physician. Follow up: Nathanael Boyce; When: 2 - 3 days; Reason: Recheck today's complaints, Re-evaluation by your physician. Problem is new. Symptoms have improved. mitchell
--- NOTE | 2019-12-15 07:07 | ER ---
Nurse's Notes [facility] Name: Robbie Kelly Age: 74 yrs Sex: Male : 1945 Arrival Date: 12/15/2019 Time: 05:12 Bed 7 Private MD: Diagnosis: Hematuria;Polycystic kidney, adult type;End stage renal disease-on HD M,W,F;Chronic obstructive pulmonary disease with (acute) exacerbation;Hydronephrosis with renal and ureteral calculous obstruction-2 MM UVJ Presentation: 12/14 05:28 Chief complaint: Patient states: "I have been peeing blood all weekend, but today the vc pain started." Spouse and/or significant other states: "He mowed the yard and he usually doesn't so we were afraid one of his cysts ruptured because he has polycystic kidney disease.". Coronavirus screen: Proceed with normal triage. Patient denies a cough. Patient denies shortness of breath or difficulty breathing. Patient denies measured and/or subjective temperature greater than 100.4F prior to today's visit. Patient denies travel on a cruise ship or to a country the [facility] currently lists as an affected area. Patient denies contact with known and/or suspected case of COVID-19. Ebola Screen: No symptoms or risks identified at this time. Initial Sepsis Screen: Does the patient meet any 2 criteria? No. Patient's initial sepsis screen is negative. Does the patient have a suspected source of infection? No. Patient's initial sepsis screen is negative. Risk Assessment: Do you want to hurt yourself or someone else? Patient reports no desire to harm self or others. Onset of symptoms was December 12, 2019. 05:28 Method Of Arrival: Wheelchair vc 05:28 Acuity: DADA 3 vc 05:30 Initial Sepsis Screen: Does the patient meet any 2 criteria? No. Patient's initial rv sepsis screen is negative. Does the patient have a suspected source of infection? No. Patient's initial sepsis screen is negative. Historical: - Allergies: 05:34 No Known Allergies; vc - Home Meds: 05:32 levothyroxine 75 mcg tab 1 tab once daily [Active]; metoprolol tartrate 50 mg Oral tab vc 1 tab once daily for on days that he does not have dialysis [Active]; renal vitamin [Active]; Vitamin C Oral [Active]; - PMHx: 05:33 Anemia; COPD; Dialysis; M,W,F; Hypertension; Hypothyroidism; RENAL FAILURE; Polycystic vc kidney disease; - PSHx: 05:33 AAA surgery; vc - Immunization history:: Adult Immunizations up to date, Pneumococcal vaccine is up to date, Flu vaccine is up to date. - Social history:: Smoking status: Patient reports the use of cigarette tobacco products, denies chronic smoking, but will smoke occasionally, states has not smoked in a month. Screenin:30 Abuse screen: Denies threats or abuse. Denies injuries from another. Nutritional rv screening: No deficits noted. Tuberculosis screening: No symptoms or risk factors identified. Fall Risk None identified. Assessment: 05:27 General: Appears comfortable, Behavior is calm, cooperative. Pain: Complains of pain in rv right low back Pain radiates to RIGHT SIDE. Neuro: Level of Consciousness is awake, alert, obeys commands, Oriented to person, place, time, situation. Cardiovascular: Patient's skin is warm and dry. Respiratory: Airway is patent Respiratory effort is even, unlabored. : Reports BLOOD IN URINE. Derm: Skin is intact. 07:00 Reassessment: RECD REPORT FROM SCOTT SHULTZ. 74YO WM P/W HEMATURIA. PT TBDC, NOTED STONE bp IN UVJ ON CT. 07:29 Reassessment: PT D/C HOME VIA W/C WITH FAMILY, DX WITH HEMATURIA AND URETERAL CALCULOUS.bp Vital Signs: 05:28 BP 189 / 81; Pulse 71; Resp 95; Temp 98.4; Pulse Ox 95% on R/A; Weight 81.19 kg; Height vc 5 ft. 10 in. (177.80 cm); 06:29 BP 179 / 78; Pulse 67; Resp 18; Pulse Ox 100% on Nebulizer Mask; Pain 10/10; rv 07:21 BP 168 / 70; Pulse 80; Resp 19; Temp 98.5; Pulse Ox 92% ; bp 05:28 Body Mass Index 25.68 (81.19 kg, 177.80 cm) vc ED Course: 05:12 Patient arrived in ED. ag3 05:14 Derrick Brooke MD is Attending Physician. mitchell 05:27 Jaison Veronica RN is Primary Nurse. rv 05:30 No provider procedures requiring assistance completed. rv 05:30 Patient has correct armband on for positive identification. Bed in low position. Call rv light in reach. Side rails up X 1. Pulse ox on. NIBP on. 05:31 Triage completed. vc 05:36 Arm band placed on. vc 05:50 Inserted saline lock: 20 gauge in right antecubital area, using aseptic technique. vc Blood collected. 06:20 XRAY Chest (1 view) In Process Unspecified. EDMS 06:21 CT Stone Protocol In Process Unspecified. EDMS 06:57 Primary Nurse role handed off by Jaison Veronica, RN bp 06:57 Pradip Tam, LEXII is Primary Nurse. bp 07:00 Bladder scan completed. 16 ML. rv 07:06 Robert Hector MD is Referral Physician. mitchell 07:06 Nathanael Boyce MD is Referral Physician. mitchell 07:29 IV discontinued, intact, bleeding controlled, No redness/swelling at site. Pressure bp dressing applied. Administered Medications: 05:55 Drug: SOLU-Medrol 125 mg Route: IVP; Site: right antecubital; rv 06:29 Follow up: Response: No adverse reaction; Marked relief of symptoms rv 05:56 Drug: Xopenex 3.75 mg Route: Inhalation; rv 06:29 Follow up: Response: Marked relief of symptoms rv 05:56 Drug: AtroVENT Aerosol 0.5 mg Route: Inhalation; rv 06:29 Follow up: Response: Marked relief of symptoms rv 05:56 Drug: NS 0.9% 1000 ml Route: IV; Rate: 30 ml/hr; Site: right antecubital; rv 07:36 Follow up: IV Status: Completed infusion; IV Intake: 60ml bp 06:15 Drug: Rocephin 1 grams Route: IV; Rate: per protocol; Site: right antecubital; rv 06:29 Follow up: IV Status: Completed infusion rv 06:28 Drug: Zofran (Ondansetron) 4 mg Route: IVP; Site: right antecubital; rv 07:28 Follow up: Response: Nausea is decreased bp 06:28 Drug: fentaNYL (PF) 25 mcg {Note: RASS 0.} Route: IVP; Site: right antecubital; rv 07:28 Follow up: Response: Pain is decreased bp 06:45 Drug: fentaNYL (PF) 100 mcg Route: IVP; Site: right antecubital; bp 07:35 Follow up: Response: Pain is decreased bp 06:59 Drug: predniSONE 40 mg Route: PO; rv 07:28 Follow up: Response: No adverse reaction bp 06:59 Drug: Xopenex 1.25 mg Route: Inhalation; rv 06:59 Drug: LevOfloxacin 250 mg Route: PO; rv 07:28 Follow up: Response: No adverse reaction bp 07:15 Drug: Flomax 0.4 mg Route: PO; bp 07:28 Follow up: Response: No adverse reaction bp Intake: 07:36 IV: 60ml; Total: 60ml. bp Outcome: 07:06 Discharge ordered by . mitchell 07:30 Discharged to home via wheelchair, with family. bp 07:30 Condition: stable 07:30 Discharge instructions given to patient, family, Instructed on discharge instructions, follow up and referral plans. medication usage, Demonstrated understanding of instructions, follow-up care, medications, Prescriptions given X 5 07:36 Patient left the ED. hb Signatures: Dispatcher [employer] EDMS Derrick Brooke MD MD cha Baxter, Heather, RN RN Pradip Tam, RN RN Jaison Tee, RN RN rv Fadia Singer3 Judi Laguerre RN RN vc
[2019-12-15] MEDS ORDERED: TAMSULOSIN 0.4 MG SR CAP ONE (07:31)
--- NOTE | 2019-12-15 07:48 | RAD REPORT ---
EXAM DESCRIPTION: Naveen Single View12/15/2019 6:20 am CLINICAL HISTORY: Cough COMPARISON: August 2019 FINDINGS: Mild bilateral interstitial lung opacities are unchanged. Lungs appear clear of acute inf iltrate Heart is normal size
[2019-12-15 07:51] VITALS: BP 168/70; TEMP 98.5; O2SAT 92
--- NOTE | 2019-12-15 09:41 | RAD REPORT ---
EXAM DESCRIPTION: CT - Stone Protocol - 12/15/2019 6:53 am CLINICAL HISTORY: The patient is 74 years old and is Male; Abdominal distention;Hematuria TECHNIQUE: Axial computed tomography images of the abdomen and pelvis without intravenous contrast. Sagittal and coronal reformatted images were created and reviewed. This CT exam was performed usi ng one or more of the following dose reduction techniques: automated exposure control, adjustment o f the mA and/or kV according to patient size, and/or use of iterative reconstruction technique. COMPARISON: No relevant prior studies available. FINDINGS: LUNG BASES: Bronchiectatic change and scarring within the lung bases is noted. Calcified granuloma within the right middle lobe are noted. ABDOMEN: LIVER: The liver is enlarged. Innumerable small cysts are present within the liver, the larges t measures 1.6 cm in the left hepatic lobe. GALLBLADDER AND BILE DUCTS: Surgical clips are present in the right upper quadrant, consistent w ith previous cholecystectomy. PANCREAS: Unremarkable. No ductal dilation. SPLEEN: Several splenic granuloma are present. ADRENALS: Unremarkable. No mass. KIDNEYS AND URETERS: Mild right hydroureteronephrosis is present secondary to a punctate 2 mm ri ght UVJ calculus. Edema and stranding of the right kidney is noted. Extensive bilateral renal cysts are present near completely replacing both kidneys. STOMACH AND BOWEL: The stomach is decompressed. The small bowel is normal in caliber. Stool is p resent throughout colon. Scattered colonic diverticula are present without surrounding inflammation. PELVIS: APPENDIX: The appendix is normal in caliber without surrounding inflammation. BLADDER: The bladder is nearly empty. No stones. REPRODUCTIVE: Unremarkable as visualized. ABDOMEN and PELVIS: INTRAPERITONEAL SPACE: Unremarkable. No free air. No significant fluid collection. BONES/JOINTS: No acute fracture. SOFT TISSUES: The soft tissues are normal. 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 LYMPH NODES: Unremarkable. No enlarged lymph nodes. IMPRESSION: 1. Mild right hydroureteronephrosis is present secondary to a punctate 2 mm right UVJ calculus. 2. Extensive bilateral renal cysts which appear to have increased in size. 3. Colonic diverticulosis Electronically signed by: Kesha Jenkins MD 12/15/2019 6:46 AM CDT Due to temporary technical issues with the PACS/Fluency reporting system, reports are being signed by the in house radiologist without review as a courtesy to ensure prompt reporting. The interpreting r adiologist is fully responsible for the content of the report.
== END 2019-12-15 07:36 | disposition home or self-care (01) ==
LOC: ER 05:09
DX: N13.2 Hydronephrosis with renal and ureteral calculous obstruction (principal); Q61.2 Polycystic kidney, adult type; J44.1 Chronic obstructive pulmonary disease with (acute) exacerbation; I12.0 Hypertensive chronic kidney disease with stage 5 chronic kidney disease or end stage renal disease; N18.6 End stage renal disease; E03.9 Hypothyroidism, unspecified; Z72.0 Tobacco use; Z99.2 Dependence on renal dialysis
CPT/HCPCS: 96361; 87088; 85025; 80048; 36415; 83735; 85610; 80076; 84484; 83880; 76377; 74176; 71045; 96375; 96374; 99284; J3010; J0696; J7040; J2930; J2405; 81003; 81015; 87086; J7512

== ENCOUNTER 2020-01-27 06:30 | Day surgery (SDC) | payer OTHER ==
--- NOTE | 2020-01-22 11:50 | RAD REPORT ---
EXAM DESCRIPTION: Naveen Gonsalves And Lat (2 Views)01/22/2020 11:40 am CLINICAL HISTORY: Hypertension/ Preop for cardiac catheterization COMPARISON: November 2019 FINDINGS: Areas scarring are present within the lungs. Lungs are hyperaerated consistent with COPD The lungs appear clear of acute infiltrate. The heart is normal size IMPRESSION: No acute abnormalities displayed
[2020-01-22 12:08] LABS: Absolute Lymphocytes (CBC) 2.1 K/uL (0.7-4.9); Basophils % 0.8 % (0-1.3); Hematocrit 34.9 % (39.6-49.0); Lymphocytes % 20.3 % (15.3-44.8); MPV 8.2 fL (7.6-11.3); RBC Red Blood Cell Count 3.59 M/uL (4.33-5.43)
[2020-01-22 12:15] LABS: Protime INR 1.02
[2020-01-22 12:36] LABS: Potassium 4.3 mmol/L (3.5-5.1)
--- OUTSIDE RECORDS SUMMARY | 2020-01-27 06:33 | XMS REPORT | Clinical Summary ---
:1945 Author Organization [facility] Address [address] [place] [address] Care Team Providers Name Role Phone Mooike Gil Primary Care Provider Unavailable Allergies No [...] INFLUENZA VACCINE 03/25/2018 Results Not on fileafter 01/26/2019 Insurance Payer Benefit Plan / Group Subscriber ID Type Phone A ddress MEDICARE MEDICARE A B xxxxxxxxxx Medicare MCR SUPPLEMENT/[employer] [facility]
[2020-01-27] MEDS ORDERED: LIDOCAINE 1% MPF 30 ML VIAL ONE (06:59)
[2020-01-27] MEDS ORDERED: HEPA 1000U/500MLS 1,000 UNIT/500 ML BAG IV ONE (06:59)
[2020-01-27] MEDS ORDERED: NA CHLORIDE 0.9% 500 ML ONE (07:05)
[2020-01-27] MEDS ORDERED: MIDAZOLAM HCL 2 MG/2 ML INJ ONE (07:49)
[2020-01-27] MEDS ORDERED: ATROPINE SULF 1 MG/10 ML SYR IV ONE (07:50)
[2020-01-27] MEDS ORDERED: FENTANYL CITR 100 MCG/2 ML ONE (07:50)
[2020-01-27 08:36] VITALS: TEMP 97.7
[2020-01-27 10:39] VITALS: BP 162/57; O2SAT 100
--- NOTE | 2020-01-29 02:25 | OP ---
Date of Procedure: 01/27/2020 Surgeon: Stephan Marino MD Procedure: Selective bilateral carotid angiogram. Indication: Cerebrovascular disease and positive carotid Doppler. Description Of Procedure: Mr. Kelly is 74, who was brought to the [facility] as an outpatient today, 01/27/2020. He was prepped and draped in the routine sterile fashion. He was given Versed for orion tion. A 6-Kiswahili sheath was introduced in the right common femoral artery using the Seldinger techni que after 10 cc of Xylocaine. Following that, a JR4 catheter was introduced into the aorta all the w ay to the right common carotid artery initially. Angiography there showed a 60% stenosis in the righ t internal carotid artery and 80% stenosis in the right external carotid artery. The common carotid was normal. The catheter was then moved slowly to select the left common carotid artery, which was i njected. The left common carotid artery was normal. There was an 80% stenosis in the left external carotid artery and the left internal carotid artery. The patient tolerated the procedure well. Ther e were no complications. Blood Loss: 5 cc. Anesthesia: Total conscious sedation was 30 minutes. Final Diagnosis: Cerebrovascular disease, severe, need for left carotid endarterectomy. The patient had an Angio-Seal used to close the case. He will be at bedrest for 2 hours. He will go home. Res ume his home medication in 2 hours. A CD was given to him. We will make arrangement for him to have a carotid endarterectomy in [place] by Dr. Bin Acevedo. This was discussed with the patient, with the family, and with Dr. Rebecca garcia. BRENDA/MATTHEW Voice ID: [id number] Report ID: [id number]
== END 2020-01-27 10:19 | disposition home health service (06) ==
LOC: CCL 06:30
DX: I65.23 Occlusion and stenosis of bilateral carotid arteries (principal); J44.9 Chronic obstructive pulmonary disease, unspecified; N18.6 End stage renal disease; Z99.2 Dependence on renal dialysis
CPT/HCPCS: 93005; 85025; 80048; 36415; 85610; 85730; 71046; 36222; C1893; C1760; J2250; J3010; J7040; J1644

== ENCOUNTER 2020-07-12 14:01 | Emergency (ER) | payer OTHER ==
--- OUTSIDE RECORDS SUMMARY | 2020-07-12 14:06 | XMS REPORT | Clinical Summary ---
:1945 Author Organization [facility] Address [address] [place] [address] Care Team Providers Name Role Phone Mookie Gil Primary Care Provider [phone] Paul Crowe Unavailable Allergies No Known Allergies Medications Medication Sig Dispensed Refills Start Date End Date Status diphenhydrAMINE Take 25 mg by 0 Active (BENADRYL) 25 mg mouth every tablet night as needed for Sleep. acetaminophen Place 650 mg 0 Act mylene (TYLENOL) 650 MG rectally suppository every 4 (four) hours as needed for Fever. folic Take 1 tablet 0 Active acid-multivitamins by mouth (NEPHRO-MIGUEL ANGEL) 0.8 mg daily. Tab tablet albuterol HFA Inhale 1 puff 0 Ac tive (VENTOLIN HFA) 90 by mouth via mcg/actuation inhaler every inhaler 6 (six) hours as needed for Wheezing. levothyroxine Take 88 mcg 0 Acti ve (SYNTHROID, by mouth LEVOTHROID) 88 MCG Every morning tablet on an empty stomach. metoprolol tartrate Take 50 mg by 0 Active (LOPRESSOR) 50 MG mouth 2 (two) tablet times daily. clopidogreL (PLAVIX) Take 1 tablet 30 tablet 0 02/13/202001/24 Active 75 mg tablet (75 mg total) 21 by mouth daily. atorvastatin Take 1 tablet 30 tablet 0 02/13/2020 02/13/20 Ac tive (LIPITOR) 40 MG (40 mg total) 21 tablet by mouth nightly. metoprolol Take 50 mg by 0 02/03/20 Disco ntinued (TOPROL-XL) 50 MG 24 mouth 2 (two) 20 (Dose hr tablet times daily. adjustm ent) levothyroxine Take 75 mcg 0 02/03/20 Disc ontinued (SYNTHROID, by mouth 20 (Dose LEVOTHROID) 75 MCG Every morning adjustment) tablet on an empty stomach. multivitamin with Take 1 tablet 0 02/03/20 Discontinued minerals tablet by mouth 20 (Dup licate daily. Therapy) Active Problems Problem Noted Date s/p L CEA 02/11 (Dr. Acevedo) 02/12/2020 Pre-transplant evaluation for chronic kidney disease 0 [...] Controlled with inhalers. No history of smoking. Asthma Hypertension ESRD (end stage renal disease) Dialysis patient S/P carotid endarterectomy Acute blood loss anemia Hypovolemic shock Vasogenic shock Bradycardia Hypothyroidism, unspecified type ESRD on hemodialysis Encounters Date Type Specialty Care Team Description 02/26/2020 Office Visit Cardiology Kristina, Post-operative state ISRA[place] Michael 02/12/2020 Anesthesia Event Hernan Saab MD Cohen, Joshua Bernard, MD 02/12/2020 Surgery Kristina, ENDARTERECTOMY, GARCIA MARCO A Michael MD 02/12/2020 - Hospital Encounter Intensive Care Kristina s/p Shante C EA 02/11 ( 02/13/2020 Kristina Michael) (Pr juju WOOD Dx) 02/03/2020 Office Visit Cardiology Kristina, Asthma, unspeci fied asthma severity, unspecified whether complicated, unspecified whether persistent; Bin Crabtree Essential hy pertension; ESRD (end stage renal disease) ([facility]); Dialysis patien t ([facility]) 02/03/2020 Orders Only General Internal Medicine 01/30/2020 Hospital Encounter Pre-Admission Testing 01/30/2020 Travel after 07/12/2019 Family History Medical History Relation Name Comments Cancer Brother lung Polycystic kidney disease Daughter Heart disease Father Heart failure Father Hypertension Father Cancer Mother Hypertension Mother COPD Sister copd Relation Name Status Comments Brother lung Daughter Father Mother Sister copd Sister breast cancer Social History Tobacco Use Types Packs/Day Years Used Date Former Smoker Quit: 2016 Smokeless Tobacco: Never Used Alcohol Use Drinks/Week oz/Week Comments No Sex Assigned at Date Recorded Not on file Last Filed Vital Signs Vital Sign Reading Time Taken Comments Blood Pressure 158/70 02/26/2020 10:20 AM CDT Pulse 78 02/26/2020 10:20 AM CDT Temperature 36.8 C (98.3 F) 02/26/2020 10:20 AM CDT Respiratory Rate 16 02/26/2020 10:20 AM CDT Oxygen Saturation 95% 02/26/2020 10:20 AM CDT Inhaled Oxygen Concentration - - Weight 82.1 kg (181 lb) 02/26/2020 10:20 AM CDT Height 177.8 cm (5' 10") 02/26/2020 10:20 AM CDT Body Mass Index 25.97 02/26/2020 10:20 AM CDT Plan of Treatment Health Maintenance Due Date Last Done Comments COLON CANCER SCREENING COLONOSCOPY 1945 PNEUMOCOCCAL 65+ YRS (1 of 1 - [id number] PCV13) 2010 MEDICARE ANNUAL WELLNESS (YEAR 2 or FIRST YEAR if no 05/26/2011 IPPE) INFLUENZA VACCINE (#1) 2020 Implants Implanted 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 IND:MAQUET:CV [id number] / [id number] Procedures Procedure Name Priority Date/Time Associated Comments Diagnosis RHYTHM STRIP - SCAN 02/19/2020 12:30 PM CDT RHYTHM STRIP - SCAN 02/17/2020 2:22 PM CDT TRANSFUSION SERVICE 02/13/2020 6:04 REPORT - SCAN PM CDT HEMODIALYSIS INPATIENT Routine 02/13/2020 1:28 PM CDT HEPATITIS B SURFACE STAT 02/13/2020 1:05 Resu lts for this ANTIGEN PM CDT procedure are i n the results section. POCT-GLUCOSE METER Routine 02/13/2020 12:52 Resul ts for this PM CDT procedure are i n the results section. POCT-GLUCOSE METER Routine 02/13/2020 5:48 Resul ts for this AM CDT procedure are i n the results section. CORTISOL Routine 02/13/2020 2:53 Results for this AM CDT procedure are i n the results section. MAGNESIUM Routine 02/13/2020 2:53 Results for this AM CDT procedure are i n the results section. BASIC METABOLIC PANEL Routine 02/13/2020 2:53 Re sults for this (7) AM CDT procedure are i n the results section. CBC (HEMOGRAM ONLY) Routine 02/13/2020 2:53 Resu lts for this AM CDT procedure are i n the results section. POCT-GLUCOSE METER Routine 02/13/2020 12:21 Resul ts for this AM CDT procedure are i n the results section. TSH/FREE T4 IF Routine 02/12/2020 11:19 Results f or this INDICATED PM CDT procedure are i n the results section. MAGNESIUM STAT 02/12/2020 5:46 Results for this PM CDT procedure are i n the results section. COMPREHENSIVE Routine 02/12/2020 5:46 Results fo r this METABOLIC PANEL PM CDT procedure ar e in the results section. BLOOD GAS, ARTERIAL Routine 02/12/2020 5:31 Resu lts for this PM CDT procedure are i n the results section. CALCIUM, IONIZED STAT 02/12/2020 5:31 Results for this PM CDT procedure are i n the results section. PT/APTT STAT 02/12/2020 5:31 Results for this PM CDT procedure are i n the results section. CBC (HEMOGRAM ONLY) STAT 02/12/2020 5:31 Resu lts for this PM CDT procedure are i n the results section. HGB/HCT (H&H) - STAT STAT 02/12/2020 10:34 Res ults for this LAB AM CDT procedure are i n the results section. GLUCOSE-STAT LAB STAT 02/12/2020 10:34 Results for this AM CDT procedure are i n the results section. POTASSIUM-STAT LAB STAT 02/12/2020 10:34 Resul ts for this AM CDT procedure are i n the results section. SODIUM NA-STAT LAB STAT 02/12/2020 10:34 Resul ts for this AM CDT procedure are i n the results section. BLOOD GAS, ARTERIAL STAT 02/12/2020 10:34 Resu lts for this AM CDT procedure are i n the results section. RRL CRITICAL LABS STAT 02/12/2020 10:34 Result s for this (ABG,NA,K,H&H,GLUCOSE) AM CDT proce dure are in the results section. TISSUE EXAM AP Routine 02/12/2020 9:33 Results for this AM CDT procedure are i n the results section. POCT-ACT Routine 02/12/2020 9:12 Results for this AM CDT procedure are i n the results section. ENDARTERECTOMY,CAROTID 02/12/2020 7:49 Left carotid AM CDT stenosis Case Notes 90 MINS PER MACIE Special Needs (PATIENT IS A DIALYSIS PATIE NT, ICU BED NEEDED) CBC W/PLT COUNT & AUTO STAT 02/12/2020 6:33 AM CDT Results for this DIFFERENTIAL procedure are i n the results section . TYPE AND SCREEN, AUTOMATED STAT 02/12/2020 6:33 AM CDT Results for this procedure are i n the results section . BASIC METABOLIC PANEL (7) STAT 02/12/2020 6:33 AM CDT Results for this procedure are i n the results section . CBC W/PLT COUNT & AUTO STAT 02/12/2020 6:33 AM CDT Results for this DIFFERENTIAL procedure are i n the results section . GLUCOSE-STAT LAB STAT 02/12/2020 6:33 AM CDT Results for this procedure are i n the results section . HGB/HCT (H&H) - STAT LAB Routine 02/12/2020 6:33 AM CDT Results for this procedure are i n the results section . POTASSIUM-STAT LAB STAT 02/12/2020 6:33 AM CDT Results for this procedure are i n the results section . SARS-COV2/RT-PCR ([facility] & STAT 02/12/2020 5:57 AM CDT Results for this REF LABS) procedure are i n the results section . POCT-GLUCOSE METER Routine 02/12/2020 5:38 AM CDT Results for this procedure are i n the results section . TRANSFUSION SERVICE REPORT 02/04/2020 6:05 PM CDT - SCAN TYPE AND SCREEN, AUTOMATED Routine 02/03/2020 10:48 AM CDT Results for this procedure are i n the results section . ECG 12-LEAD Routine 02/03/2020 10:36 AM CDT Procedure Note - Interface, External Ris In - 02/03/2020 10:35 AM CDT Ventricular Rate 72 BPM Atrial Rate 72 BPM P-R Interval 172 ms QRS Duration 92 ms Q-T Interval 396 ms QTC Calculation(Bazett) 433 ms P [place] 63 degrees R [place] 55 degrees T [place] 73 degrees Normal sinus rhythm Normal ECG No previous ECGs available ECG 12-LEAD Routine 02/03/2020 10:36 AM CDT Resu lts for this procedure are in the results section . after 07/12/2019 Results RHYTHM STRIP - SCAN (02/19/2020 12:30 PM CDT)Only the most recent of2 results within the time period is included. Narrative Performed At This result has an attachment that is no t available. TRANSFUSION SERVICE REPORT - SCAN (02/13/2020 6:04 PM CDT)Only the most recent of2 resultswithin the time period is included. Narrative Performed At This result has an attachment that is no t available. Hepatitis B surface antigen (02/13/2020 1:05 PM CDT) Pathologist Sig nature HBsAg Screen Nonreactive Nonreactive [facility] Specimen Blood Narrative Performed At Specimen is considered negative for HBsAg. [facility] Performing Organization Address City/State/Zipcode Phone Number [address] [address] CENTER POC-Glucose meter (02/13/2020 12:52 PM CDT)Only the most recent of4 results within the time period is included. POC-Glucose Meter 83Comment: : 70 - 110 mg/dL [facility] TESTED AT [address], [address]: Software Security Architect/Technic zan ID = [id number] for JOIE DONG Specimen Blood Performing Organization Address City/[facility]/Zipcode Phone Number [address] [address] CENTER Cortisol (02/13/2020 2:53 AM CDT) Pathologist Sig [facility] Cortisol, Total 8.3 3.7 - 19.4 ug/dL [facility] Specimen Blood Narrative Performed At Software Security Architect ID - JEAN CLAUDEASI [facility] Performing Organization Address City/[facility]/Zipcode Phone Number [facility] [address] [place] [address] CENTER CBC (Hemogram only) (02/13/2020 2:53 AM CDT)Only the most recent of2 results within the time period is included. Pathologist Sig nature WBC 10.4 3.5 - 10.5 K/L [facility] RBC 2.61 (L) 4.63 - 6.08 M/L [facility] Hemoglobin 8.2 (L) 13.7 - 17.5 GM/DL [facility] Hematocrit 26.4 (L) 40.1 - 51.0 % [facility] MCV 101.1 (H) 79.0 - 92.2 fL [facility] MCH 31.4 25.7 - 32.2 pg [facility] MCHC 31.1 (L) 32.3 - 36.5 GM/DL [facility] RDW 15.8 (H) 11.6 - 14.4 % [facility] Platelets 157 150 - 450 K/CU MM [facility] MPV 9.8 9.4 - 12.4 fL [facility] nRBC 0 0 - 0 /100 WBC [facility] Specimen Blood Performing Organization Address City/State/Zipcode Phone Number [facility] [address] [place] [address] CENTER Magnesium (02/13/2020 2:53 AM CDT)Only the most recent of2 resultswithin the time period is included. Pathologist Sig nature Magnesium 1.9 1.6 - 2.6 mg/dL [facility] Specimen Blood Narrative Performed At Software Security Architect ID - PIAYA L [facility] Performing Organization Address City/[facility]/Zipcode Phone Number [facility] [address] [place] [address] CENTER Basic Metabolic Panel (02/13/2020 2:53 AM CDT)Only the most recent of2 results within the time period is included. Sodium 136 136 - 145 meq/L [facility] Potassium 5.2 (H) 3.5 - 5.1 meq/L [facility] Chloride 106 98 - 107 meq/L [facility] CO2 20 (L) 22 - 29 meq/L [facility] BUN 30 (H) 7 - 21 mg/dL [facility] Creatinine 8.83 (H) 0.57 - 1.25 [facility] mg/dL [facility] Glucose 94 70 - 105 mg/dL [facility] Calcium 8.5 8.4 - 10.2 [facility] mg/dL [facility] EGFR 6Comment: ESTIMATED mL/min/1.73 sq [facility] GFR IS NOT m [facility] ACCURATE [place] CREATININE CLEARANCE IN PREDICTING GLOMERULAR FILTRATION RATE. ESTIMATED GFR IS NOT APPLICABLE FOR DIALYSIS PATIENTS. Specimen Blood Narrative Performed At Software Security Architect ID - PICITLALY L [facility] Performing Organization Address [facility]/[place] Phone Number [place] [phone] [place] [address] CENTER TSH/Free T4 If Indicated (02/12/2020 11:19 PM CDT) Pathologist Sig nature TSH 4.682 0.350 - 4.940 uIU/mL [facility] Specimen Blood Narrative Performed At Software Security Architect ID - PIAYA L [facility] Performing Organization Address City/[facility]/Zipcode Phone Number [facility] [address] [place] Comprehensive metabolic panel (02/12/2020 5:46 PM CDT) Protein, Total 5.8 (L) 6.0 - 8.3 [facility] gm/dL [facility] Albumin 3.3 (L) 3.5 - 5.0 [facility] g/dL [facility] Alkaline 50 40 - 150 U/L [facility] Phosphatase [facility] Total Bilirubin 0.4 0.2 - 1.2 [facility] mg/dL [facility] Sodium 139 136 - 145 [facility] meq/L [facility] Potassium 4.8 3.5 - 5.1 [facility] meq/L [facility] Chloride 111 (H) 98 - 107 [facility] meq/L [facility] CO2 19 (L) 22 - 29 meq/L [facility] BUN 25 (H) 7 - 21 mg/dL [facility] Creatinine 7.10 (H) 0.57 - 1.25 [facility] mg/dL [facility] Glucose 83 70 - 105 [facility] mg/dL [facility] Calcium 7.7 (L) 8.4 - 10.2 [facility] mg/dL [facility] AST 11 5 - 34 U/L [facility] ALT 10 6 - 55 U/L [facility] EGFR 8Comment: mL/min/1.73 [facility] ESTIMATED GFR IS sq [facility] NOT [facility] CREATININE CLEARANCE IN PREDICTING GLOMERULAR FILTRATION RATE. ESTIMATED GFR IS NOT APPLICABLE FOR DIALYSIS PATIENTS. Specimen Blood Narrative Performed At Software Security Architect ID - NTP [facility] [place] Performing Organization Address City/State/Zipcode Phone Number [address] [address] CENTER PT/aPTT (02/12/2020 5:31 PM CDT) Pathologist Sig nature Protime 15.7 (H) 11.9 - 14.2 seconds [facility] INR 1.29 <=5.90 [facility] PTT 32.4 22.5 - 36.0 seconds [facility] Specimen Blood Narrative Performed At Effective 11/20/2018: PT Reference Range [facility] Change New: 11.9-14.2 Previous: 11.7-14.7 RECOMMENDED COUMADIN/WARFARIN INR THERAPY RANGES STANDARD DOSE: 2.0-3.0 Includes: PROPHYLAXIS for venous thrombosis, systemic embolization; TREATMENT for venous thrombosis and/or pulmonary embolus. HIGH RISK: Target INR is 2.5-3.5 for patients wiht mechanical heart valves. Performing Organization Address City/[facility]/Zipcode Phone Number [address] [address] CENTER Calcium, Ionized (02/12/2020 5:31 PM CDT) [facility] Calcium, Ion 1.14 1.12 - 1.27 mmol/L [facility] pH, Blood 7.32 [facility] Specimen Blood Performing Organization Address City/State/Zipcode Phone Number [address] [address] CENTER Blood gas, arterial (02/12/2020 5:31 PM CDT)Only the most recent of2 results within the time period is included. Pathologist Sig nature pH, Arterial 7.31 (L) 7.35 - 7.45 [facility] pCO2, Arterial 45 35 - 45 mmHg [facility] pO2, Arterial 87 80 - 90 mmHg [facility] O2 Sat, Arterial 95.8 (L) 96.0 - 97.0 % [facility] HCO3, Arterial 22 21 - 29 mmol/L [facility] Base Excess, Arterial -4.4 (L) -2.0 - 3.0 [facility] mmol/L [facility] Patient Temperature 37.0 C [facility] FIO2 21.0 % [facility] Specimen Blood, Arterial Performing Organization Address City/[facility]/[place] Phone Number [address] [address] CENTER Potassium-Stat Lab (02/12/2020 10:34 AM CDT)Only the most recent of2 results within the time period is included. Pathologist Sig nature Potassium 4.0 3.6 - 5.5 meq/L [facility] Specimen Blood, Arterial Performing Organization Address City/[facility]/[place] Phone Number [address] [address] CENTER Sodium Na-Stat Lab (02/12/2020 10:34 AM CDT) Pathologist Sig nature Sodium 137 136 - 145 meq/L [facility] Specimen Blood, Arterial Performing Organization Address [facility]/[place] Phone Number [address] [address] CENTER Glucose-Stat Lab (02/12/2020 10:34 AM CDT)Only the most recent of2 resultswithin the time period is included. Pathologist Sig nature Glucose 104 70 - 110 mg/dL [facility] Specimen Blood, Arterial Performing Organization Address City/[facility]/[place] Phone Number [address] [address] CENTER HGB/HCT (H&H)-Stat Lab (02/12/2020 10:34 AM CDT)Only the most recent of2 resultswithin the time period is included. Pathologist Sig nature Hemoglobin 9.2 (L) 13.0 - 16.8 g/dL [facility] Hematocrit 27.0 (L) 40.0 - 50.0 % [facility] Specimen Blood, Arterial Performing Organization Address City/[facility]/Zipcode Phone Number [address] [address] [place] Tissue Exam (02/12/2020 9:33 AM CDT) Case Report Surgical Pathology Report Case: [id number] [facility] Authorizing Provider: Bin Jara, Collected: 02/12/2020 09:33 AM [facility] Ordering Location: [facility] JASSI Received: 02/12/2020 10:58 AM PERIOPERATIVE SERVICES Pathologist: Carlos Betancourt MD Specimen: Carotid, Left , LEFT CAROTID PLA[place] DIAGNOSIS ARTERY, LEFT CAROTID, ENDARTERECTOMY: [facility] Electronically CALCIFIC ATHEROSCLEROTIC [place] [facility] signed by Carlos Betancourt Signing Pathologist Direct Phone Line: [phone] [facility] MD Melecio on 02/17/2020 at 11 :07 AM CPT Code(s) 22062; 37136 [facility] CLINICAL HISTORY Left carotid stenosis [facility] SPECIMEN SOURCE Carotid, Left [facility] GROSS DESCRIPTION A. Received fresh labeled wi th the patients name, medical record number and "parotid, left" is a previously incised portion of yellow plaque measuring 1.6 cm in length and 0.8 cm in diameter. Specime [facility] n is serially sectioned to r eveal calcifications measuring up to 0.2 cm in thickness. Billboard Poster sections are submitted in A1, following decalcification. [facility] SATISH [place] PA (ASCP) MICROSCOPIC Performed [facility] Specimen Tissue - Left common carotid artery stru cture (body structure) Performing Organization Address City/[facility]/Zipcode Phone Number [address] [address] CENTER POC ACTIVATED CLOTTING TIME (02/12/2020 9:12 AM CDT) Activated Clotting 235Comment: : sec [facility] Time 74-137 seconds, [facility] MEDICAL Baseline: TESTED CENTER AT [facility] [address] [place] [address], [id number]: Software Security Architect/Technici an ID = [id number] for SOLANO, RASHIED Specimen Blood Performing Organization Address City/[facility]/Zipcode Phone Number [address] [address] CENTER Type and screen, automated (02/12/2020 6:33 AM CDT)Only the most recent of2 resultswithin the time period is included. Pathologist Sig nature ABO/RH AUTOMATED O [facility] Ab Scrn NEGATIVE [facility] Specimen Blood Performing Organization Address City/[facility]/Zipcode Phone Number [address] [address] CBC with platelet count + automated diff (02/12/2020 6:33 AM CDT) Pathologist Sig nature WBC 11.4 (H) 3.5 - 10.5 [facility] K/L [facility] RBC 3.40 (L) 4.63 - 6.08 [facility] M/L [facility] Hemoglobin 11.0 (L) 13.7 - 17.5 [facility] GM/DL [facility] Hematocrit 34.6 (L) 40.1 - 51.0 % [facility] MCV 101.8 (H) 79.0 - 92.2 fL [facility] MCH 32.4 (H) 25.7 - 32.2 pg [facility] MCHC 31.8 (L) 32.3 - 36.5 [facility] GM/DL [facility] RDW 15.5 (H) 11.6 - 14.4 % [facility] Platelets 196 150 - 450 K/CU [facility] MPV 10.0 9.4 - 12.4 fL [facility] nRBC 0 0 - 0 /100 WBC [facility] % Neutros 65 % [facility] % Lymphs 21 % [facility] % Monos 8 % [facility] % Eos 4 % [facility] % Baso 0 % [facility] # Neutros 7.45 (H) 1.78 - 5.38 [facility] # Lymphs 2.42 1.32 - 3.57 [facility] # Monos 0.91 (H) 0.30 - 0.82 [facility] # Eos 0.48 0.04 - 0.54 [facility] # Baso 0.02 0.01 - 0.08 [facility] Immature 1 0 - 1 % [facility] Granulocytes-Relativ [facility] Specimen Blood Performing Organization Address City/State/Zipcode Phone Number [facility] [address] [place] [address] CENTER SARS-CoV2/RT-PCR (Asymptomatic ONLY) (02/12/2020 5:57 AM CDT) SARS-COV2/RT-PCR Negative Not Detected, [facility] Negative, See [facility] external report CENTER for linked test SARS-COV-2 [facility] PERFORMING LAB [facility] Specimen Other - Nasopharyngeal wall structure (b robby structure) Narrative Performed At Negative results do not preclude SARS-CoV-2 [facility] infection and should not be used as the sole basis for patient management decisions. Negative results must be combined with clinical observations, patient history, and epidemiological information. A false negative result may occur if a specimen is improperly collected, transported or handled. The limit of detection for this assay is 250 copies/mL. This SARS CoV-2 test is a rapid, real-time RT-PCR test intended for the qualitative detection of nucleic acid from SARS-CoV-2 in a nasopharyngeal swab specimen collected from individuals suspected of COVID-19 by their healthcare provider. This test has not been Food and Drug Administration (FDA) cleared or approved and has been authorized by FDA under an Emergency Use Authorization (EUA). This EUA will be effective until the declaration that circumstances exist justifying the authorization of the emergency use of in vitro diagnostic tests for detection and/or diagnosis of COVID-19 is terminated under Section 564(b)(2) of the Act or the EUA is revoked under Section 564(g) of the Act. Fact Sheet for Healthcare Providers: https://www.[employer]/Documents/Xpert%20Xpre ss%20SARS%20CoV-2/Fact%20Sheets/3023802%20SAR S-COV-2%20HEALTHCARE%20PROVIDERS%20FACT%20SHEE T.pdf Fact Sheet for Healthcare Patients: https://www.[employer]/Documents/Xpert%20Xpre ss%20SARS%20CoV-2/Fact%20Sheets/3023801%20SAR S-COV-2%20PATIENT%20FACT%20SHEET.pdf Performing Laboratory: [place] [address] Performing Organization Address City/State/Zipcode Phone Number [facility] [address] [place] [address] CENTER Electrocardiogram, 12-lead (02/03/2020 10:36 AM CDT) Specimen Narrative Performed At Ventricular Rate 72 BPM GE MUSE Atrial Rate 72 BPM P-R Interval 172 ms QRS Duration 92 ms Q-T Interval 396 ms QTC Calculation(Bazett) 433 ms P [place] 63 degrees R [place] 55 degrees T [place] 73 degrees Normal sinus rhythm Normal ECG No previous ECGs available Confirmed by MD Almaguer Roberto ([id number]) on 02/02 12:45:38 PM Procedure Note Interface, External Ris In - 02/03/2020 12:45 PM CDT Ventricular Rate 72 BPM Atrial Rate 72 BPM P-R Interval 172 ms QRS Duration 92 ms Q-T Interval 396 ms QTC Calculation(Bazett) 433 ms P [place] 63 degrees R [place] 55 degrees T [place] 73 degrees Normal sinus rhythm Normal ECG No previous ECGs available Confirmed by MD Almaguer Roberto ([id number]) on 02/03/2020 12:45:38 PM Performing Organization Address City/State/Zipcode Phone Number [facility] [place]AN[place] after 07/12/2019 Insurance Payer Benefit Plan / Subscriber ID Effective Dates Phone Addre ss Type Group MEDICARE MEDICARE A B [id number] 2010-Presen Medicare t [employer] [id number] 2016-Present Medigap SUPPLEMENT/INDIV IDUAL Advance Directives For more information, please contact: [phone] Type Date Recorded Patient Billboard Poster Explanati on Power of Co Founder & Ceo 02/12/2020 12:00 AM Code Status Date Activated Date Inactivated Comments Full Code 02/12/2020 5:16 PM 02/13/2020 8:41 PM This code status was determined by: Patient Full Code 02/12/2020 5:50 AM 02/12/2020 5:16 PM This code status was determined by: Patient
--- OUTSIDE RECORDS SUMMARY | 2020-07-12 14:07 | XMS REPORT | Continuity of Care Document ---
:1945 Author Organization [facility] t Address [address] [place] [address] Care Team Providers Name Role Phone Tee Gil Primary Care Physician Tonny Acevedo MD Attending Clinician TONNY ACEVEDO Attending Clinician Unavailable Katiana WOOD Attending Clinician Mariusz Caputo MD Attending Clinician TONNY ACEVEDO Admitting Clinician Unavailable Payers Payer Name Policy Type Policy Effective Date Expiration Date Sour ce Number MEDICAREMEDICARE A [id number] 2010 CHASITY Rueda UphtterbQS9830/06/2009- 00:00:00 - [facility] MCR [id number] 2016 CHASITY Liu SUPPLEMENT/INDIVIDUALB 00:00:00 - [facility] [id number] 2016- PresentMedigap Problems Condition Condition Condition Status Onset Resolution Last Treating Co mments Source Name Details Category Date Date Treatment Clinician Date s/p L CEA s/p L CEA Disease Active CHASITY Cadena 02/11 ( 02/11 ( 02-11 Julio Acevedo) 00:00: Medica l 00 Center Pre-transp Pre-transp Disease Active Last [facility] lant lant 6-27 Assessharsh Rueda - evaluation evaluation 00:00: t & Plan: Medical for for 00 Due to Center chronic chronic his age, kidney kidney history disease disease of COPD, and AAA repair he is not an acceptabl e candidate for kidney transplan t. He understoo d and agreed with this decision. Aortic Aortic Disease Active Last [facility] t & Plan: Medical 00 Repaired Center with a stent in 2012. Polycystic Polycystic Disease Active [facility] kidney kidney 12-19 [facility] - 00:00: Medical 00 Center COPD COPD Disease Active [facility] (chronic (chronic 12[facility] - obstructiv obstructiv 00:00: t & Plan: Medical e e 00 Control Center pulmonary pulmonary d with disease) disease) inhalers. No history of smoking. Asthma Asthma Disease Active [facility] Hypertensi Hypertensi Disease Active C HI [facility] on on [facility] ESRD (end ESRD (end Disease Active [facility] stage stage [facility] renal renal Medical disease) disease) Center Dialysis Dialysis Disease Active [facility] S patient patient [facility] S/P S/P Disease Active [facility] carotid carotid [facility] endarterec endarterec [facility] Acute Acute Disease Active [facility] blood loss blood loss 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 Family History Family Member Diagnosis Comments Start Date Stop Date Source Natural brother Cancer [facility] Natural daughter Polycystic kidney C [facility] disease [facility] Natural father Heart disease [facility] Natural father Heart failure [facility] Natural father Hypertension [facility] Natural mother Cancer [facility] Natural mother Hypertension [facility] Natural sister COPD [facility] Social History Social Habit Start Date Stop Date Quantity Comments Source [facility] of [facility] Tobacco use and 2020-02-26 2020-02-26 Never used [facility] sandra - exposure 00:00:00 00:00:00 [facility] Alcohol intake 2020-02-26 2020-02-26 Current [facility] Crispin redding - 00:00:00 00:00:00 non-drinker of Medical Ce nter alcohol (finding) Smoking Status Start Date Stop Date Source Former smoker 2020-02-26 00:00:00 2020-02-26 00:00:00 [facility] Medications Ordered Filled Start Stop Current Ordering Indication Dosage Frequency Signature Comments Components Source Medication Medication Date Date Medication? Clinician (SIG) Name Name diphenhydrA 2019-0 Yes 25mg Take [address] [facility] [address] MINE 9-03 by mouth [facility] - (BENADRYL) 10:27: every Medica l 25 mg 50 night as Center tablet needed for Sleep. acetaminoph 2020-[address] en 9-03 mg [facility] - (TYLENOL) 10:27: rectally Medi rinku 650 MG 50 every 4 Center suppository (four) hours as needed for Fever. folic 2020-0 Yes 1{tbl} QD Take [address] acid-multiv 9-03 tablet by Crispin es - itamins 10:27: mouth Medical (NEPHRO-VIT 50 daily. Center E) 0.8 mg Tab tablet albuterol 2019-0 Yes 1{puff} Inhale [address] HFA 9-03 puff by [facility] - (VENTOLIN 10:27: mouth via Med ical HFA) 90 50 inhaler Center mcg/actuati every 6 on inhaler (six) hours as needed for Wheezing. levothyroxi 2020-0 Yes 88ug Take [address] ne 9-03 mcg by [facility] - (SYNTHROID, 10:27: mouth Medic al LEVOTHROID) 50 Every Center 88 MCG morning on tablet an empty stomach. metoprolol 2020-0 Yes 50mg Q.5D Take [address] tartrate 9-03 by mouth 2 [facility] - (LOPRESSOR) 10:27: (two) Medic al 50 MG 50 times Center tablet daily. clopidogreL 2019-0 No 75mg QD Take [address] (PLAVIX) 75 8-21 08-21 tablet (75 L ukes - mg tablet 00:00: 23:59 mg total) Me dical 00 :00 by mouth Center daily. atorvastati 40mg QD Take [address] n (LIPITOR) 02-12 tablet (40 L ukes - 40 MG 00:00: 23:59 mg total) Medica l tablet 00 :00 by mouth Center nightly. multivitami No 1{tbl} QD Take [address] n with 02-02 tablet by [facility] - minerals 10:30: 00:00 mouth Medical tablet 11 :00 daily. Center metoprolol No 50mg Q.5D Take [address] (TOPROL-XL) 02-02 by mouth 2 L ukes - 50 MG 24 hr 10:30: 00:00 (two) Medi rinku tablet 08 :00 times Center daily. levothyroxi 75ug Take [address] ne 02-02 mcg by [facility] - (SYNTHROID, 10:28: 00:00 mouth Medi rinku LEVOTHROID) 56 :00 Every Center 75 MCG morning on tablet an empty stomach. Vital Signs Vital Name Observation Time Observation Value Comments Source Systolic blood 2020-02-26 10:20:00 158 mm[Hg] [facility] Diastolic blood 2020-02-26 10:20:00 70 mm[Hg] [facility] S [facility] Heart rate 2020-02-26 10:20:00 78 /min [facility] Body temperature 2020-02-26 10:20:00 36.83 Jailyn [facility] Respiratory rate 2020-02-26 10:20:00 16 /min [facility] Body height 2020-02-26 10:20:00 177.8 cm [facility] Body weight 2020-02-26 10:20:00 82.101 kg [facility] BMI 2020-02-26 10:20:00 25.97 kg/m2 [facility] Oxygen saturation in 2020-02-26 10:20:00 95 /min [facility] - Arterial blood by Medical Ce nter Pulse oximetry Procedures Procedure Date / Time Performed Performing Clinician Marisol e RHYTHM STRIP - SCAN 2020-02-19 12:30:59 Provider, [facility] RHYTHM STRIP - SCAN 2020-02-17 14:22:17 Provider, Default [facility] TRANSFUSION SERVICE 2020-02-13 18:04:02 Provider, Default [facility] REPORT - SCAN [facility] HEMODIALYSIS INPATIENT 2020-02-13 13:28:00 Dong Bryson [facility] HEPATITIS B SURFACE 2020-02-13 13:05:[address] [facility] POCT-GLUCOSE METER 2020-02-13 12:52:00 Kristina Man [facility] POCT-GLUCOSE METER 2020-02-13 05:48:00 Kristina Man [facility] CBC (HEMOGRAM ONLY) 2020-02-13 02:53:00 Tanika Garza [facility] BASIC METABOLIC PANEL (7) 2020-02-13 02:53:00 Tanika Garza [facility] MAGNESIUM 2020-02-13 02:53:00 Rodolfo Haji [facility] CORTISOL 2020-02-13 02:53:00 Rodolfo Haji [facility] POCT-GLUCOSE METER 2020-02-13 00:21:00 Bin Acevedo [facility] TSH/FREE T4 IF INDICATED 2020-02-12 23:19:00 Rodolfo Haji [facility] COMPREHENSIVE METABOLIC 2020-02-12 17:46:00 Rodolfo Haji [facility] MAGNESIUM 2020-02-12 17:46:00 Rodolfo Haji [facility] CBC (HEMOGRAM ONLY) 2020-02-12 17:31:00 Rodolfo Haji [facility] PT/APTT 2020-02-12 17:31:00 Rodolfo Haji [facility] CALCIUM, IONIZED 2020-02-12 17:31:00 Rodolfo Haji [facility] BLOOD GAS, ARTERIAL 2020-02-12 17:31:00 Rodolfo Haji I [facility] BLOOD GAS, ARTERIAL 2020-02-12 10:34:53 [facility] 2020-02-12 10:34:53 [facility]OT[facility] 2020-02-12 10:34:53 [facility] GLUCOSE-STAT LAB 2020-02-12 10:34:53 [facility] HGB/HCT (H&H) - STAT LAB 2020-02-12 10:34:53 [facility] TISSUE EXAM 2020-02-12 09:33:00 Kristina, [facility] POCT-ACT 2020-02-12 09:12:00 Kristina [facility] ENDARTERECTOMY,CAROTID 2020-02-12 07:49:00 [facility] POTASSIUM-STAT LAB 2020-02-12 06:33:00 Kristina Man [facility] HGB/HCT (H&H) - STAT LAB 2020-02-12 06:33:00 Bin Acevedo [facility] GLUCOSE-STAT LAB 2020-02-12 06:33:00 Kristina [facility] BASIC METABOLIC PANEL (7) 2020-02-12 06:33:00 Bin Acevedo [facility] TYPE AND SCREEN, 2020-02-12 06:33:00 Kristina, [facility] AUTOMATED [facility] CBC W/PLT COUNT & AUTO 2020-02-12 06:33:00 [facility] DIFFERENTIAL [facility] SARS-COV2/RT-PCR ([facility] & 2020-02-12 05:57:00 Tanika Garza I [facility] - [facility] POCT-GLUCOSE METER 2020-02-12 05:38:00 Bin Acevedo [facility] Mc[facility] TRANSFUSION SERVICE 2020-02-04 18:05:56 Provider, Default CHASITY Liu - REPORT - SCAN [facility] TYPE AND SCREEN, 2020-02-03 10:48:00 Tanika Garza [facility] ECG 12-LEAD 2020-02-03 10:36:29 Unknown, Hl7 Doctor [facility] St Shante newman - [facility] Plan of Care Planned Activity Planned Date Details Comments Source Future Scheduled 2020-02-24 INFLUENZA VACCINE (#1) [facility] Test 00:00:00 [code = INFLUENZA Medical Ce nter VACCINE (#1)] Future Scheduled 2011-05-26 MEDICARE ANNUAL CHASITY Mcnamara - Test 00:00:00 WELLNESS (YEAR 2 or Medical Center FIRST YEAR if no IPPE) [code = MEDICARE ANNUAL WELLNESS (YEAR 2 or FIRST YEAR if no IPPE)] Future Scheduled 2010 PNEUMOCOCCAL 65+ YRS CHASITY Liu - Test 00:00:00 (1 of 1 - [facility] [id number] PCV13) [code = PNEUMOCOCCAL 65+ YRS (1 of 1 - [id number] PCV13)] Future Scheduled 1945 Screening for CHASITY Etienne es - Test 00:00:00 [facility] colon (procedure) [code = 417588997] Results Test Description Test Time Test Comments Results Result Comments Source Tissue Exam 2020-02-17 11:07:00 Test Item Value Reference Range Interpretation Comme nts Case Report (test code = 104) Surgical Pathology Report Case: [id number] Authorizing Provider: Bin Acevedo, Collected: 02/12/2020 09:33 AM Ordering Location: [facility] Received: 02/12/2020 10:58 AM PERIOPERATIVE SERVICES Pathologist: Carlos Betancourt MD Specimen: Carotid, Left, LEFT CAROTID PLAQUE DIAGNOSIS (test code = 3220) [id number]wBmUcMnSm pc xAEzQBeiriLnCMdna8CsI0CnDsKqKZzlzmWmWTGg MblzakqgVYLfEVQ4hzRnBMIqFGdrMSRsMKuwZj2u nPDlqWjtPjImBMOwc9vbedLFuhmjvSw3b7kvIGXx ZlI3kPGyVDksN7lyufMkpLAuYBUmCVi8xQ09UWUz aG8bzUPjYXzzldEqBYcenqQyapNeUnn4QOCbP0rj TUZrWDJtE6AeVV5tYSLiCap5ZCK8NKC6gFicd1B8 rVAyzYJliNtwCgPbLtClLWTQx0NoAWa0iBgcV3Fe AOHsIgB0nNDiLHAiSNyqJEFsDDKbvtN1tU10LYfo ubD7qJWud0Yax30qb805aK5qtIFeMOY7FARwXCDj lAFgVEEcXAX8MFStqIGwW7c6QgQklDPnG4O7TeMo qGYnH4D0XaItiPOwY7T5DyChxBPhSAQtyVUeAe3v bZEfqTFsby0vac25YZB5r4RugWmwQRG3SZJ4AvAw Fx4akHJsRPJgJY1gPuUdqCTyFAPevp68fKtoEVrn mkCdnI5hRlQiZBObhFXjWUTjRV8nbHVnFURtcQ5b wsmcFYHpFtWsfhnfVSEmjFqlybMxJc0roFhyQSK3 SBjsM9npbU4nPwS3RCgbR7cluM1qZZg7VXbihFC8 BZYqaO2zPO8soeqmu1piDuNdGI3uvyjbm9dlYoTc LL8atlz4x7ktAlWjFS3qrpkww9npVxUzSKswYRKj qzefIKHjr0CphrogAQJzp6FtT4EyoCbhY97bgOxc U96wPROslEdrvY6pzOuasK9uLySdPlWvWIndtAto bGFpblxmMFxmczIwXHBsYWluXGYxXGZzMjAgQVJU XTSUZZQJTLSNPBRUMe6FEVFrFCXGPRPCJSSXGCZQ A49XFpjpQEWfN7ZQE1qZVWYiQMVOEGROS2MXFXPC QGlSXJFNBUOOAGdlMGB1u4hefBDzDPSmiFYeSDTi QSditzNjZQHxNmfrcuodGXAeBAK3zgDtMMDoPNyi LESuJZllKu4juOQubGtcNiOeSKMab5fthdTYcmex nRv5u4gvESJpZhY5mHLkGGgcP1ksqiVjaQCcLXAc SPa9zD50WUTieE9kxEUeAWsdvuYpPuN7HGzoNXFt FpS2YBGxeLUyAGCfK0xbOMXbNMkrKETrNXokgTFi KWN5oGjod0G2zEDyoFUtiJtzLgGuZoYsSeRHr3Oq XHw7yBwpF2ToYZNjEzU4gJVcSXBnAUukCETpDVDa eaM3mE78YEfdhkE3xWOop5Qcq28hg816qD4aqYXw VFT0KLHxENJaoBYjMKIiVES5FROaoRZdH9bcJGAa FU4lrjcuBYzmIIlkTZXzkHO5IMKvyNIfZ3NyHHPq ZQnwLWPktrk9HoGyKn3wuSDjrOrgBRhjj2aqj1qm mSEbMht3GBDhPyClVzoqRBgqk4Exs5gyUFJulf0v AXB5jAKjtVxdf6T2iMQsDHTwdBJtXCTxKS1tnCSu YRTyiW1gcuioUVMnHpCautntZLXpkUgfxrRcMu1q fIjfPDQ1MHscN0mhbX0oRyB1MLjkB7bppE1fHSs7 UWucKDLlcRT8fiH9FYTouCUdW0VapF8bOGOxTC3f kjz5f3vmMEG2XKovDCNtBrM3eqC4XSZhoBCjZLVo dXgsKJsgi202WBN5WiGdVDOof8QjZ6ShlUuiG98z lVlhI92cHBYpiNjfyY1pwJrjgC8rCyMtXkEjKHjn hBlzJC8kHNMsC9bgoTHdTQOsQFTiI5odKrKprJ9p qGvcJQifjtWuJVNjSza0GATqkKCsNXZaJhg3HZBt VDRiP96ksrxvGJI0zF1sj9nfx5CmCXacCRY6HPGc r93uWZmlshJ4AZqkZc1yKIRpZKe9SKteWJE0eV== CPT Code(s) (test code = 3357) c5ccmYAiGIXilAFyVoQlFKPmNSXvj4prDPIb bGFu WaJkOvXiWbQfHxsyeLEqOZIxJxHpr5ilg170vFYa q1pcGVXcJrI9eLLxQKOnmDYuW411h2haq2lifzRy sIY3LFBvFFH3GAmjehFnywU7HKuihECoWrE4GOgq grZrCWovslRnpoLfDfy0LDCzO723ESO6lAyio6fy OHI8PSQfJULcTdSnMs2htRQfN707VEBaVBLCLUQv jYf9YXXaexUyvjGouOUEd615M573u4qkXXRfpnUy bTmQsjklv3reD044WZVbeICkstRyQmTmNKDsyGUc mRI2OEPfFZ8axrfnKkSfGI8qszrcWqKuUT5nvqv1 TsWiIV9lltntRxYeSGbtQAMblhybGGCwe9Aavdul XJ5oY5Yul4P8zW4diDLgYIJhxXVxHcUvAOXbjs3e cRHdHSmuc4HlIOC0tpO3fVKnbVMaTQWtRN81Dzhy o8ZzQvtcHWS9UMKzrvPvc9Qrb9liGvLefqOoY4sr S2NaMSBqTOCdSRWqWcRpgdXro4Vwc2CyyDVouVw4 l2izWVViEXRbxVapu8jfHKN2NCSxX9J7uMXsd7hc YTbcPRCrpDV3qgcxSIslRPTfezE7teguZJfbNVMk mLC1vjazYNsuMBSxSuI0yirmSXtwQLEzYZB0XPdf v535HTC0ZDxsKnakUHquLPEaxyDomtAblKeiXVKs LTLkPYmeYPCsECabAQNxYGRyWqFqcIpprOyavM6d UqTzKzYsHPtuGB0bBKYdC5pzuCLjVATvXVGuN7zs QaKxnU2piLnjORgvvpCxWEc5WkS1NaG6IWKsCUqc YXJ9 CLINICAL HISTORY (test code = 3356) f7ltaBMvXUKovXDrCkYbRAEnKNBro4e cZGVmbGFu PcHkDiYvKtYjLlgcdBVqANIxSlSop1ojw915mYOo j6ltMMKfXdA3pCSdSHMdbULuP500TBIeOLfvt0zn v4BsXEPtbQKsp9O1QHMBjwaqhMj1hRdkY35br1L8 LgbxI0xuSNWkGZKmT2RoDR6fZOWlDdb9MKV1OCE9 MLRkMZVbQ2VpAC8xMZFmnUUzOOb0y8srmQykGAUk EVI2p6znJFlfpeGcJX0zuo3qvKx4a4gdlvYhXQIb TFQgfNHENMXnV2ErsHxiMw3ibSm3gAsxMwmyVTB3 Ylp3RZ3ikb20ltg4uUncXRItssmtEyY7ACmfPPAa epgkZKj3YDqxESTjsJehOEgdDIFcupwxLUduQGTf gWevYIynIOBsBofoPHvzMBPbQUL2RZhoi772QZB4 BSvfr5lsz4hiaGFjSwi1ZIPdNpQcMcwmDYyon2Mp l8kxRBZsnv8iRXJ6hGIkjZkcm9J2iENsXETalUFf tdLqZUJnSlU3WVfwRW2aqj65AUXeEEQ7bh0aiFGq kAtbzaBpyPTwHMjjK8AsLFLqq071UKXlT6ZbVUKj c0J6fxRfZeUzOWBirPF9anX0NIGqOAu0hTWkvyC0 zvTsnZHjZ4unfA11AaPbkCAdF4DzaP95JmRmlOUp D7AznU56UyNogOMiX3SwqI68KlDrsYHcQJBjoLGc Co5mtRSjoSTld1IiqACrKWlhZ37lw252OXQjppAj Y7gbdLSinviefKWrvfwcVUxmotE3LOl0tdPscino tVlgkWSluyraENhzxbRuBUizzzsnNVZaCRpwY0li SsWcVZHjtKsiGOvee5XhGNArTTGoDyNxIXKegNQf NBEhgIflYKR9JC1mn0ctMTmiETW7 SPECIMEN SOURCE (test code = 3377) a0wfpRPfKJLigOKtXoLoMOJhUBAtl1hp ZGVmbGFu KdGpUyXxXrObMteoxIYxWPHbJqSpn1vkw335kGKd p0kcYCAcUuI3pODdDJDxePUuE386QBKmIYane7sq n7KwDJYvwLHkj9O7RFVZyiddkVy5cCryK65xl3N3 RkjfL8aaFHXpOMQkF1XcAC4tXOTvOov0JLJ6RZV2 GCSpFIWgM8OwCM6pOBRnqJQeNIh1d5qtmNltYIAk QLS0c6iqDFeqjzNeBJ1eyi4jqQg1f3lbisNnBVZp QBAgiKTEDTVvJ3AyyKtwCf1vkNs3uCzuFzkuBAU0 Vpx4TR7hlm79ldb1gTvhERKmdqfdAsS6ZCedABVr tewhEMo0FAkjHEBynNdbJJlpTJVhyfltRWsbNSNn hWepPLnxVLRgHbljTMpoAITlBJT7COyml940CMY7 DCajv4cth5cpdBMzKgu0YNXhYpKiOquoGGvvl4Gt c6xoKWTnzb3wFXY4wUGenJrqu0Q3kILzFCZtoRAs jrPbPTMtPzN6OFgwIU9nhb61GNQxBYQ3hb6otEUu vNblkjWumVSrJTxtK0SjXHZyw743PVGbV3VxMOSc k0Q5vfBhBjBcQUFisEF3euC0UNMfEOq6wWCpiaI7 xqIevWUwJ5xyxE82ZwMmdBDwU7BlvO17IlGevRPj I3NvmH81YmDhdDIiJ5MurQ95SwNuhXRwHAPxqSDd Zy3pwPXseBXma0JgrVZgJFdsY71ir777CFOcqhLw I3hpqLGrbhbkuBPlyikbHGyfnpW0HBb5abAmtzdj iAqpjVGidbawEXbxzwBkAUfgiutgTSLuSBemQ9jz VqWdDRKvaXvsQBnii5VmECGiIVIlGbCaJ2Jkp8Fm ZCwgTGVmdFxwYXJ9 GROSS DESCRIPTION (test code = 3366) b4pcvYQnTREjcNGjStWuSBNhETDew9 lcZGVmbGFu [file] wJGrBUXAkoM9vlylZAoDPFHGEFDyHAMWWRymdGBz XHBhclxwYXJ9 MICROSCOPIC DESCRIPTION (test code = b1jzcNHaYTPcrLRcHwVzQKEnDYSwl7 [place] [address]) QvAqJnAfHyTdGlnabRPyWJUtZbLec4yrc960tOTo j1gbPEHnQbM8uOHxQVRaoRRtX254n6rsw4vxzvMy kYF1BYAfDBT9ZDdxvwUqcmB3HMyypZDxOzB2IKuj iqNuKAipxkRrxdBqDpz3BSJrJ842OXA0tMptn2jw HFE9IVBcORYhJxZtNp5rwNAsT374OSEgSHSVKVLy sIu4RTZgivOmigBkqQQIm078V621a7eeECGefjKz dVeTasaoy8xaB780KGUmxCBlwtPmObEaXUAneBBc pDJ7BLImGP7wadgaZgYsKX7kqqyzTeOoCJ4cdow9 HwJhDH6mnbthNmSaQUhbBKRuyjuyURQyv2Fvtbin JO2tN0Ijj6F3zJ6fmEXtTIZxiIUmAmAeTTPlsz8o mOLkECmgr1ZrAWH9tbO5fWWliTSsJAVdFV05Ecwm j3YyRutjQNJ4TRXzkqFdp2Glb6dyNcHurtXgY5gx N7DwVQGrOSHeRLOzFrJyrrKbc7Wmy2TbzYAceBj1 e6jeRPTmNWAsuIkwt7dtHUN0ANLcP9H0nGSei1sr RSuaRKOixVT9wuizPByhFSZdxwJ5ucvtLBduXUSr uJR4plcnRTpbTJLiUvK8kcizERdvVSQxXYT4ZGal t283MVI8GYkwCyiuHVgbBSHjppErmgTezNodNYIm LDBtYMuqHUOgMCdcJYAwUBLzOvHajPnwbLompS8i LaEmCoKlBCwcQS3cEIRpY5hctRHyMOXkQBFcI1po NqRblH5jtYggDXxgtoSwYVEglaAblm3bAAjkTOV4 [facility] [id number] 11:07:00Surgical Pathology Report Case: [id number] Authorizing Provider: Bin Acevedo, Collected: 02/12/2020 09:33 AM OrderingLocation: [facility] Received: 02/12/2020 10:58 AM PERIOPERATIVE SERVICES Pathologist: Carlos Betancourt MD Specimen: Carotid, Left, LEFT CAROTID PLAQUE ARTERY, LEFT CAROTID, ENDARTERECTOMY:CALCIFIC ATHEROSCLEROTIC PLAQUE Signing Pathologist Direct Phone Line: [phone] signed by Carlos Betancourt MD on 02/17/2020 at 11:07 [id number]; [id number] carotid stenosis Carotid, LeftA. Received fresh labeled with the patient's name, medical record number and "parotid, left" is a previously incised portion of yellow plaque measuring 1.6 cm in length and 0.8 cm in diameter. Specimen is serially sectioned to reveal calcifications measuring up to 0.2 cm in thickness. Instructional Technology Director sections are submitted in A1, following decalcification.SATISH Madrid PA ([facility])PerformedHepatitis B surface [id number] 14:11:00 Test Item Value Reference Range Interpretation Comments HBsAg Screen (test code Nonreactive Nonreactive = 5195-3) ТАТЬЯНА (test code = ТАТЬЯНА) Specimen is considered negative for HBsAg. Lab Interpretation (test Normal code = 93863-8) [facility] SUR[facility] [id number] 14:11:00 Test Item Value Reference Range Interpretation Comments HEPATITIS B SURFACE ANTIGEN (2) Nonreactive Nonreactive (BEAKER) (test code = 2585) Specimen is considered negative for HBsAg.POC-Glucose [id number] 13:03:00 Test Item Value Reference Range Interpretation Comments POC-Glucose Meter (test 83 mg/dL 70-110 : TE STED AT [facility] code = 1538) [address] [facility], [address]: [employer] Hanger/Techni justus ID = [id number] for IKER, JOIE Lab Interpretation (test Normal code = 33436-2) [facility] [id number] 13:03:00 Test Item Value Reference Range Interpretation Comments POC-GLUCOSE METER 83 mg/dL 70-110 : TESTED A T [facility] [address] (BEAKER) (test code = RADHA Chowdhury [facility], 1538) [address]: [employer] Hanger/Techni justus ID = [id number] for ELGI N, JOIE POC ACTIVATED CLOTTING [id number] 06:30:00 Test Item Value Reference Range Interpretation Comments Activated Clotting Time 235 sec : 74 -137 seconds, (test code = 441) Baseline: TESTED AT [facility] [address] [facility], [address]: Sheet [employer] Hanger/Techni justus ID = [id number] for DON FARLEY [facility][id number] 06:30:00 Test Item Value Reference Range Interpretation Comments ACTIVATED CLOTTING TIME 235 sec : 74 -137 seconds, (BEAKER) (test code = Baseli ne: TESTED AT 441) [facility] [address] [facility], [address]: [employer] [place] Hanger/Techni justus ID = [id number] for DON FARLEY Basic Metabolic [id number] 06:01:00 Test Item Value Reference Range Interpretation Comments Sodium (test code = 136 meq/L 229-068 3171-2) Potassium (test code = 5.2 meq/L 3.5-5.1 H 2823-3) Chloride (test code = 106 meq/L 98-107 2075-0) CO2 (test code = 20 meq/L 22-29 L 2028-9) BUN (test code = 30 mg/dL 7-21 H 3094-0) Creatinine (test code 8.83 mg/dL 0.57-1.25 H = 2160-0) Glucose (test code = 94 mg/dL 70-105 2345-7) Calcium (test code = 8.5 mg/dL 8.4-10.2 25948-5) EGFR (test code = 6 mL/min/1.73 [place] [address]-3) NOT ACCURATE CREATININE CLEARANCE IN PREDICTING GLOMERULAR FILTRATION RATE . ESTIMATED GFR I S NOT APPLICABLE FOR DIALYSIS PATIENTS. ТАТЬЯНА (test code = ТАТЬЯНА) [employer] ID - PIAYA L Lab Interpretation Abnormal (test code = 97669-0) [facility] METABOLIC [id number] 06:01:00 Test Item Value Reference Range Interpretation Comments SODIUM (BEAKER) 136 meq/L 136-145 (test code = 381) POTASSIUM (BEAKER) 5.2 meq/L 3.5-5.1 H (test code = 379) CHLORIDE (BEAKER) 106 meq/L 98-107 (test code = 382) CO2 (BEAKER) (test 20 meq/L 22-29 L code = 355) BLOOD UREA NITROGEN 30 mg/dL 7-21 H (BEAKER) (test code = 354) CREATININE (BEAKER) 8.83 mg/dL 0.57-1.25 H (test code = 358) GLUCOSE RANDOM 94 mg/dL 70-105 (BEAKER) (test code = 652) CALCIUM (BEAKER) 8.5 mg/dL 8.4-10.2 (test code = 697) EGFR (BEAKER) (test 6 mL/min/1.73 ESTIMAT ED GFR IS code = 1092) sq m NOT ACCURATE CREATININE CLEARANCE IN PREDICTING GLOMERULAR FILTRATION RATE . ESTIMATED GFR I S 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 [employer] ID - LIAM LPOCT-GLUCOSE [id number] 06:00:00 Test Item Value Reference Range Interpretation Comments POC-GLUCOSE METER 94 mg/dL 70-110 : TESTED A T [facility] [address] (BEAKER) (test code = RADHA [place], 1538) [address]: [employer] Hanger/Techni justus ID = [id number] for Aren Cheatham [id number] 05:49:00 Test Item Value Reference Range Interpretation Comments Magnesium (test code = 1.9 mg/dL 1.6-2.6 54312-1) ТАТЬЯНА (test code = ТАТЬЯНА) [employer] ID - LIAM L Lab Interpretation (test Normal code = 90213-6) [facility] 05:49:00 Test Item Value Reference Range Interpretation Comments MAGNESIUM (BEAKER) (test code = 1.9 mg/dL 1.6-2.6 627) [employer] ID - LIAM [id number] 05:31:00 Test Item Value Reference Range Interpretation Comments Cortisol, Total (test code 8.3 ug/dL 3.7-19.4 = 2755) ТАТЬЯНА (test code = ТАТЬЯНА) [employer]anger ID - JEAN CLAUDEASI Lab Interpretation (test Normal code = 45967-0) [facility] 05:31:00 Test Item Value Reference Range Interpretation Comments CORTISOL, TOTAL (BEAKER) (test code 8.3 ug/dL 3.7-19.4 = 2755) [employer] ID - JEAN CLAUDEASICBC (Hemogram only)2020-02-13 03:06:00 Test Item Value Reference Range Interpretation Comments WBC (test code = 6690-2) 10.4 3.5- 10.5 K/L RBC (test code = 789-8) 2.61 4.63- 6.08 M/L L MCHC (test code = 786-4) 31.1 32.3- 36.5 GM/DL L Hematocrit (test code = 4544-3) 26.4 % 40.1-51 L MCV (test code = 787-2) 101.1 fL 79-92.2 H MCH (test code = 785-6) 31.4 pg 25.7-32.2 RDW (test code = 788-0) 15.8 % 11.6-14.4 H Platelets (test code = 777-3) 157 150- 450 K/CU MM MPV (test code = 83432-4) 9.8 fL 9.4-12.4 nRBC (test code = 413) 0 0- 0 /100 WBC Lab Interpretation (test code = Abnormal 23846-7) [facility] (HEMOGRAM ONLY)2020-02-13 03:06:00 Test Item Value Reference Range Interpretation Comments WHITE BLOOD CELL COUNT (BEAKER) 10.4 K/ L 3.5-10.5 (test code = 775) RED BLOOD CELL COUNT (BEAKER) 2.61 M/ L 4.63-6.08 L (test code = 761) HEMOGLOBIN (BEAKER) (test code = 8.2 GM/DL 13.7-17.5 L 410) HEMATOCRIT (BEAKER) (test code = 26.4 % 40.1-51.0 L 411) MEAN CORPUSCULAR VOLUME (BEAKER) 101.1 fL 79.0-92.2 H (test code = 753) MEAN CORPUSCULAR HEMOGLOBIN 31.4 pg 25.7-32.2 (BEAKER) (test code = 751) MEAN CORPUSCULAR HEMOGLOBIN CONC 31.1 GM/DL 32.3-36.5 L (BEAKER) (test code = 752) RED CELL DISTRIBUTION WIDTH 15.8 % 11.6-14.4 H (BEAKER) (test code = 412) PLATELET COUNT (BEAKER) (test 157 K/CU MM 150-450 code = 756) MEAN PLATELET VOLUME (BEAKER) 9.8 fL 9.4-12.4 (test code = 754) NUCLEATED RED BLOOD CELLS 0 /100 WBC 0-0 (BEAKER) (test code = 413) TSH/Free T4 If [id number] 02:45:00 Test Item Value Reference Range Interpretation Comments TSH (test code = 4.682 0.350- 4.940 uIU/mL 87014-6) ТАТЬЯНА (test code = ТАТЬЯНА) [employer] ID - LIAM Frey Lab Interpretation (test Normal code = 69225-0) [facility] [id number] 02:45:00 Test Item Value Reference Range Interpretation Comments THYROID STIMULATING HORMONE 4.682 uIU/mL 0.350-4.940 (AKER) (test code = 772) [employer] ID - LIAM LPOCT-GLUCOSE [id number] 00:32:00 Test Item Value Reference Range Interpretation Comments POC-GLUCOSE METER 82 mg/dL 70-110 : TESTED A T [facility] 6720 (BEAKER) (test code = RADHA ANNA CO, 1538) 16953: [employer] Hanger/Techni justus ID = [id number] for Aren Cheatham Blood gas, [id number] 18:26:00 Test Item Value Reference Range Interpretation Comments pH, Arterial (test code = 2744-1) 7.31 7.35-7.45 L pCO2, Arterial (test code = 45 35- 45 mmHg 2018-) pO2, Arterial (test code = 87 80- 90 mmHg 3-7) O2 Sat, Arterial (test code = 95.8 % 96-97 L 8-6) HCO3, Arterial (test code = 22 mmol/L 21-29 1959-4) Base Excess, Arterial (test code -4.4 mmol/L -2-3 L = 1925-7) Patient Temperature (test code = 37.0 C 8310-5) FIO2 (test code = 1819) 21 % Lab Interpretation (test code = Abnormal 19969-7) [facility], [id number] 18:26:00 Test Item Value Reference Range Interpretation Comments PH ARTERIAL (BEAKER) (test code = 7.31 7.35-7.45 L 383) PCO2 ARTERIAL (BEAKER) (test code 45 mmHg 35-45 = 384) PO2 ARTERIAL (BEAKER) (test code 87 mmHg 80-90 = 385) O2 SATURATION ARTERIAL (BEAKER) 95.8 % 96.0-97.0 L (test code = 386) HCO3 ARTERIAL (BEAKER) (test code 22 mmol/L 21-29 = 388) BASE EXCESS ARTERIAL (BEAKER) -4.4 mmol/L -2.0-3.0 L (test code = 387) PATIENT TEMPERATURE (BEAKER) 37.0 C (test code = 1818) FIO2 (BEAKER) (test code = 1819) 21.0 % Comprehensive metabolic [id number] 18:16:00 Test Item Value Reference Range Interpretation Comments Protein, Total (test 5.8 6.0- 8.3 gm/dL L code = 2885-2) Albumin (test code = 3.3 g/dL 3.5-5 L 62370-4) Alkaline Phosphatase 50 U/L 40-150 (test code = 6768-6) Total Bilirubin (test 0.4 mg/dL 0.2-1.2 code = 1975-2) Sodium (test code = 139 meq/L 829-846 5754-2) Potassium (test code = 4.8 meq/L 3.5-5.1 2823-3) Chloride (test code = 111 meq/L 98-107 H 2075-0) CO2 (test code = 19 meq/L 22-29 L 2028-9) BUN (test code = 25 mg/dL 7-21 H 3094-0) Creatinine (test code 7.10 mg/dL 0.57-1.25 H = 2160-0) Glucose (test code = 83 mg/dL 70-105 2345-7) Calcium (test code = 7.7 mg/dL 8.4-10.2 L 88671-6) AST (test code = 11 U/L 5-34 1920-8) ALT (test code = 10 U/L 6-55 1742-6) EGFR (test code = 8 mL/min/1.73 [place] [address]-6) NOT ACCURATE CREATININE CLEARANCE IN PREDICTING GLOMERULAR FILTRATION RATE . ESTIMATED GFR I S NOT APPLICABLE FOR DIALYSIS PATIENTS. ТАТЬЯНА (test code = ТАТЬЯНА) [employer] ID - NTP Lab Interpretation Abnormal (test code = 58269-3) [facility] CenterCOMPREHENSIVE METABOLIC [id number] 18:16:00 Test Item Value Reference Range Interpretation Comments TOTAL PROTEIN 5.8 gm/dL 6.0-8.3 L (BEAKER) (test code = 770) ALBUMIN (BEAKER) 3.3 g/dL 3.5-5.0 L (test code = 1145) ALKALINE PHOSPHATASE 50 U/L 40-150 (BEAKER) (test code = 346) BILIRUBIN TOTAL 0.4 mg/dL 0.2-1.2 (BEAKER) (test code = 377) SODIUM (BEAKER) (test 139 meq/L 136-145 code = 381) POTASSIUM (BEAKER) 4.8 meq/L 3.5-5.1 (test code = 379) CHLORIDE (BEAKER) 111 meq/L 98-107 H (test code = 382) CO2 (BEAKER) (test 19 meq/L 22-29 L code = 355) BLOOD UREA NITROGEN 25 mg/dL 7-21 H (BEAKER) (test code = 354) CREATININE (BEAKER) 7.10 mg/dL 0.57-1.25 H (test code = 358) GLUCOSE RANDOM 83 mg/dL 70-105 (BEAKER) (test code = 652) CALCIUM (BEAKER) 7.7 mg/dL 8.4-10.2 L (test code = 697) AST (SGOT) (BEAKER) 11 U/L 5-34 (test code = 353) ALT (SGPT) (BEAKER) 10 U/L 6-55 (test code = 347) EGFR (BEAKER) (test 8 mL/min/1.73 ESTIMAT ED GFR IS code = 1092) sq m NOT ACCURATE CREATININE CLEARANCE IN PREDICTING GLOMERULAR FILTRATION RATE . ESTIMATED GFR I S 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 [employer] ID - [id number] 18:14:00 Test Item Value Reference Range Interpretation Comments MAGNESIUM (BEAKER) (test code = 1.8 mg/dL 1.6-2.6 627) [employer] ID - NTPCalcium, [id number] 18:02:00 Test Item Value Reference Range Interpretation Comments Calcium, Ion (test code = 1993-) 1.14 mmol/L 1.12-1.27 pH, Blood (test code = 50744-8) 7.32 [facility] CenterCALCIUM, [id number] 18:02:00 Test Item Value Reference Range Interpretation Comments CALCIUM IONIZED (BEAKER) (test 1.14 mmol/L 1.12-1.27 code = 698) PH, BLOOD (BEAKER) (test code = 7.32 1810) [id number] 18:01:00 Test Item Value Reference Range Interpretation Comments Protime (test code = 15.7 11.9- 14.2 H 5902-2) seconds INR (test code = 1.29 <=5.90 6301-6) PTT (test code = 32.4 22.5- 36.0 35506-1) seconds ТАТЬЯНА (test code = ТАТЬЯНА) Effective 11/20/2018: PT Reference Range ChangeNew: 11.9-14.2 Previous: 11.7-14.7 RECOMMENDED COUMADIN/WARFARIN INR THERAPY RANGESSTANDARD DOSE: 2.0-3.0 Includes: PROPHYLAXIS for venous thrombosis, systemic embolization; TREATMENT for venous thrombosis and/or pulmonary embolus.HIGH RISK: Target INR is 2.5-3.5 for patients wiht mechanical heart valves. Lab Interpretation Abnormal (test code = 88248-5) [facility] CenterPT/[id number] 18:01:00 Test Item Value Reference Range Interpretation Comments PROTIME (BEAKER) (test code = 15.7 seconds 11.9-14.2 H 759) INR (BEAKER) (test code = 370) 1.29 <=5.90 PARTIAL THROMBOPLASTIN TIME 32.4 seconds 22.5-36.0 (BEAKER) (test code = 760) Effective 11/20/2018: PT Reference Range ChangeNew: 11.9-14.2 Previous: 11.7- 14.7RECOMMENDED COUMADIN/WARFARIN INR THERAPY RANGESSTANDARD DOSE: 2.0-3.0 Includes: PROPHYLAXIS for venous thrombosis, systemic embolization; TREATMENT for venous thrombosis and/or pulmonary embolus.HIGH RISK: Target INR is2.5-3.5 for patients wiht mechanical heart valves.CBC (HEMOGRAM ONLY)2020-02-12 17:53:00 Test Item Value Reference Range Interpretation Comments WHITE BLOOD CELL COUNT (BEAKER) 18.1 K/ L 3.5-10.5 H (test code = 775) RED BLOOD CELL COUNT (BEAKER) 2.88 M/ L 4.63-6.08 L (test code = 761) HEMOGLOBIN (BEAKER) (test code = 9.5 GM/DL 13.7-17.5 L 410) HEMATOCRIT (BEAKER) (test code = 29.2 % 40.1-51.0 L 411) MEAN CORPUSCULAR VOLUME (BEAKER) 101.4 fL 79.0-92.2 H (test code = 753) MEAN CORPUSCULAR HEMOGLOBIN 33.0 pg 25.7-32.2 H (BEAKER) (test code = 751) MEAN CORPUSCULAR HEMOGLOBIN CONC 32.5 GM/DL 32.3-36.5 (BEAKER) (test code = 752) RED CELL DISTRIBUTION WIDTH 15.7 % 11.6-14.4 H (BEAKER) (test code = 412) PLATELET COUNT (BEAKER) (test 213 K/CU MM 150-450 code = 756) MEAN PLATELET VOLUME (BEAKER) 9.8 fL 9.4-12.4 (test code = 754) NUCLEATED RED BLOOD CELLS 0 /100 WBC 0-0 (BEAKER) (test code = 413) HGB/HCT (H&H)-Stat [id number] 10:37:00 Test Item Value Reference Range Interpretation Comments Hemoglobin (test code = 786-4) 9.2 g/dL 13-16.8 L Hematocrit (test code = 4544-3) 27.0 % 40-50 L Lab Interpretation (test code = Abnormal 20421-1) [facility] CenterBL[facility], [id number] 10:37:00 Test Item Value Reference Range Interpretation Comments PH ARTERIAL (BEAKER) (test code = 7.37 7.35-7.45 383) PCO2 ARTERIAL (BEAKER) (test code 37 mmHg 35-45 = 384) PO2 ARTERIAL (BEAKER) (test code 103 mmHg 80-90 H = 385) O2 SATURATION ARTERIAL (BEAKER) 98.0 % 96.0-97.0 H (test code = 386) HCO3 ARTERIAL (BEAKER) (test code 21 mmol/L 21-29 = 388) BASE EXCESS ARTERIAL (BEAKER) -4.5 mmol/L -2.0-3.0 L (test code = 387) PATIENT TEMPERATURE (BEAKER) 35.0 C (test code = 1818) FIO2 (BEAKER) (test code = 1819) 60.0 % HGB/HCT (H&H) - STAT [id number] 10:37:00 Test Item Value Reference Range Interpretation Comments HEMOGLOBIN (BEAKER) (test code = 9.2 g/dL 13.0-16.8 L 410) HEMATOCRIT (BEAKER) (test code = 27.0 % 40.0-50.0 L 411) Glucose-Stat [id number] 10:36:00 Test Item Value Reference Range Interpretation Comments Glucose (test code = 2345-7) 104 mg/dL 70-110 Lab Interpretation (test code = Normal 10546-2) [facility] [id number] 10:36:00 Test Item Value Reference Range Interpretation Comments Sodium (test code = 2951-2) 137 meq/L 136-145 Lab Interpretation (test code = Normal 12721-7) [facility] CenterPotassium-Stat [id number] 10:36:00 Test Item Value Reference Range Interpretation Comments Potassium (test code = 2823-3) 4.0 meq/L 3.6-5.5 Lab Interpretation (test code = Normal 72350-6) [facility] CenterGLU[facility]SE-STAT [id number] 10:36:00 Test Item Value Reference Range Interpretation Comments GLUCOSE RANDOM (BEAKER) (test code 104 mg/dL 70-110 = 652) SODIUM NA-STAT [id number] 10:36:00 Test Item Value Reference Range Interpretation Comments SODIUM (BEAKER) (test code = 381) 137 meq/L 136-145 POTASSIUM-STAT [id number] 10:36:00 Test Item Value Reference Range Interpretation Comments POTASSIUM (BEAKER) (test code = 4.0 meq/L 3.6-5.5 379) SARS-CoV2/RT-PCR (Asymptomatic ONLY)2020-02-12 08:04:00 Test Item Value Reference Range Interpretation Comments SARS-COV2/RT-PCR Negative Not Detected, (test code = Negative, See 40042-0) external report for linked test SARS-COV-2 [facility] PERFORMING LAB (test code = 89555-5) ТАТЬЯНА (test code = Negative results do not ТАТЬЯНА) preclude SARS-CoV-2 infection and should not be used as [...] of the Act. Fact Sheet for Healthcare Providers:https://www.BlooBox/Documents/Xper t%20Xpress%20SARS%20CoV- 2/Fact%20Sheets/3023802 %06HVSU-MUC-6%20HEALTHCA RE%20PROVIDERS%20FACT%20 SHEET.pdf Fact Sheet for Healthcare Patients:https://www.Videojug/Documents/Xpert %20Xpress%20SARS%20CoV-2 /Fact%20Sheets/3023801% 27BEIW-TZA-7%20PATIENT%2 0FACT%20SHEET.pdf Performing Laboratory:[facility] [place] [address] [facility] ([facility])2020-02-12 08:04:00 Test Item Value Reference Range Interpretation Comments SARS-COV2/RT-PCR (test code Negative Not Detected, Negative, = 0175749) See external report for linked test SARS-COV-2 PERFORMING LAB [facility] (test code = 1984431) Negative results do not preclude SARS-CoV-2 infection and should not be used as the sole basis for patient management decisions. Negative results must be combined with clinical observations, patient history, and epidemiological information. A false negative result may occur if a specimen is improperly collected, transported or handled.The limit of detection for this assay is 250 copies/mL.This SARS CoV-2 test is a rapid, real-time RT-PCR test intended for the qualitative detection of nucleic acid from SARS-CoV-2 in a nasopharyngeal swab specimen collected from individuals suspected of COVID-19 by their healthcare provider.This test has not been Food and Drug [...] is revoked under Section 564(g) of the Act.Fact Sheet for Healthcare Pro viders:https://www.GuideSpark/Documents/Xpert%20Xpress%20SARS%20CoV-2/Fact%20Sh eets/302-3802%70ONBC-PEI-4%20HEALTHCARE%20PROVIDERS%20FACT%20SHEET.pdfFact Sheet for Healthcare Patients:https://www.Hippflow/Documents/Xpert%20Xpress%20SARS%20CoV-2/Fact%20Sheets/302-3801%20SARS-COV -2%20PATIENT%20FACT%20SHEET.pdfPerforming Laboratory:[facility], [place] [address]MOXCP METABOLIC [id number] 07:28:00 Test Item Value Reference Range Interpretation Comments SODIUM (BEAKER) 138 meq/L 136-145 (test code = 381) POTASSIUM (BEAKER) 4.8 meq/L 3.5-5.1 (test code = 379) CHLORIDE (BEAKER) 100 meq/L 98-107 (test code = 382) CO2 (BEAKER) (test 27 meq/L 22-29 code = 355) BLOOD UREA NITROGEN 25 mg/dL 7-21 H (BEAKER) (test code = 354) CREATININE (BEAKER) 7.53 mg/dL 0.57-1.25 H (test code = 358) GLUCOSE RANDOM 106 mg/dL 70-105 H (BEAKER) (test code = 652) CALCIUM (BEAKER) 9.4 mg/dL 8.4-10.2 (test code = 697) EGFR (BEAKER) (test 7 mL/min/1.73 ESTIMAT ED GFR IS code = 1092) sq m NOT ACCURATE CREATININE CLEARANCE IN PREDICTING GLOMERULAR FILTRATION RATE . ESTIMATED GFR I S 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 [employer]anger ID - NTPCBC with platelet count + automated [id number] 07:21:00 Test Item Value Reference Range Interpretation Comments WBC (test code = 6690-2) 11.4 3.5- 10.5 K/L H RBC (test code = 789-8) 3.40 4.63- 6.08 M/L L MCHC (test code = 786-4) 31.8 32.3- 36.5 GM/DL L Hematocrit (test code = 4544-3) 34.6 % 40.1-51 L MCV (test code = 787-2) 101.8 fL 79-92.2 H MCH (test code = 785-6) 32.4 pg 25.7-32.2 H RDW (test code = 788-0) 15.5 % 11.6-14.4 H Platelets (test code = 777-3) 196 150- 450 K/CU MM MPV (test code = 46329-6) 10.0 fL 9.4-12.4 nRBC (test code = 413) 0 0- 0 /100 WBC % Neutros (test code = 429) 65 % % Lymphs (test code = 430) 21 % % Monos (test code = 431) 8 % % Eos (test code = 432) 4 % % Baso (test code = 437) 0 % # Neutros (test code = 670) 7.45 1.78- 5.38 K/L H # Lymphs (test code = 414) 2.42 1.32- 3.57 K/L # Monos (test code = 415) 0.91 0.30- 0.82 K/L H # Eos (test code = 416) 0.48 0.04- 0.54 K/L # Baso (test code = 417) 0.02 0.01- 0.08 K/L Immature Granulocytes-Relative 1 % 0-1 (test code = 2801) Lab Interpretation (test code = Abnormal 20882-1) [facility] W/PLT COUNT & AUTO [id number] 07:21:00 Test Item Value Reference Range Interpretation Comments WHITE BLOOD CELL COUNT (BEAKER) 11.4 K/ L 3.5-10.5 H (test code = 775) RED BLOOD CELL COUNT (BEAKER) 3.40 M/ L 4.63-6.08 L (test code = 761) HEMOGLOBIN (BEAKER) (test code = 11.0 GM/DL 13.7-17.5 L 410) HEMATOCRIT (BEAKER) (test code = 34.6 % 40.1-51.0 L 411) MEAN CORPUSCULAR VOLUME (BEAKER) 101.8 fL 79.0-92.2 H (test code = 753) MEAN CORPUSCULAR HEMOGLOBIN 32.4 pg 25.7-32.2 H (BEAKER) (test code = 751) MEAN CORPUSCULAR HEMOGLOBIN CONC 31.8 GM/DL 32.3-36.5 L (BEAKER) (test code = 752) RED CELL DISTRIBUTION WIDTH 15.5 % 11.6-14.4 H (BEAKER) (test code = 412) PLATELET COUNT (BEAKER) (test 196 K/CU MM 150-450 code = 756) MEAN PLATELET VOLUME (BEAKER) 10.0 fL 9.4-12.4 (test code = 754) NUCLEATED RED BLOOD CELLS 0 /100 WBC 0-0 (BEAKER) (test code = 413) NEUTROPHILS RELATIVE PERCENT 65 % (BEAKER) (test code = 429) LYMPHOCYTES RELATIVE PERCENT 21 % (BEAKER) (test code = 430) MONOCYTES RELATIVE PERCENT 8 % (BEAKER) (test code = 431) EOSINOPHILS RELATIVE PERCENT 4 % (BEAKER) (test code = 432) BASOPHILS RELATIVE PERCENT 0 % (BEAKER) (test code = 437) NEUTROPHILS ABSOLUTE COUNT 7.45 K/ L 1.78-5.38 H (BEAKER) (test code = 670) LYMPHOCYTES ABSOLUTE COUNT 2.42 K/ L 1.32-3.57 (BEAKER) (test code = 414) MONOCYTES ABSOLUTE COUNT (BEAKER) 0.91 K/ L 0.30-0.82 H (test code = 415) EOSINOPHILS ABSOLUTE COUNT 0.48 K/ L 0.04-0.54 (BEAKER) (test code = 416) BASOPHILS ABSOLUTE COUNT (BEAKER) 0.02 K/ L 0.01-0.08 (test code = 417) IMMATURE GRANULOCYTES-RELATIVE 1 % 0-1 PERCENT (BEAKER) (test code = 2801) Type and screen, [id number] 07:19:00 Test Item Value Reference Range Interpretation Comments ABO/RH AUTOMATED (BEAKER) (test O POSITIVE code = 2260) Ab Scrn (test code = 890-4) [facility] [id number] 06:45:00 Test Item Value Reference Range Interpretation Comments HEMOGLOBIN (BEAKER) (test code = 11.3 g/dL 13.0-16.8 L 410) HEMATOCRIT (BEAKER) (test code = 33.0 % 40.0-50.0 L 411) GLUCOSE-STAT [id number] 06:42:00 Test Item Value Reference Range Interpretation Comments GLUCOSE RANDOM (BEAKER) (test code 103 mg/dL 70-110 = 652) POTASSIUM-STAT [id number] 06:42:00 Test Item Value Reference Range Interpretation Comments POTASSIUM (BEAKER) (test code = 4.8 meq/L 3.6-5.5 379) POCT-GLUCOSE [id number] 05:51:00 Test Item Value Reference Range Interpretation Comments POC-GLUCOSE METER 108 mg/dL 70-110 : TESTED A T [facility] 6720 (BEAKER) (test code [facility]) [address]: Sheet [employer] Hanger/Techni justus ID = [id number] for JORD AN, LACRYSTAL Electrocardiogram, [id number]-[id number] 12:45:46Interface, External Ris In 02/03/2020 12:45 PM CDTVentricular Rate 72 BPMAtrial Rate 72 BPMP-R Interval 172 msQRS Duration 92 msQ-T Interval 396 msQTC Calculation(Bazett) 433 msP [place] 63 degreesR [place] 55 degreesT [place] 73 degreesNormal sinus rhythmNormal ECGNo previous ECGs availableConfirmed by MD Rosina, Latrell ([id number]) on 02/03/2020 12:45:38 [facility]
[2020-07-12 15:41] LABS: Absolute Lymphocytes (CBC) 1.5 K/uL (0.7-4.9); Basophils % 0.6 % (0-1.3); Hematocrit 33.1 % (39.6-49.0); Lymphocytes % 12.3 % (15.3-44.8); MPV 8.6 fL (7.6-11.3)
[2020-07-12 15:42] LABS: Protime INR 1.06
[2020-07-12 16:07] LABS: Bilirubin Direct 0.1 mg/dL (0-0.2); Bilirubin Total 0.4 mg/dL (0.2-1.0); Magnesium 2.3 mg/dL (1.8-2.4); Potassium 4.6 mmol/L (3.5-5.1); Protein, Total 8.6 g/dL (6.4-8.2)
[2020-07-12 17:01] LABS: Urine Appearance CLOUDY; Urine Bilirubin NEGATIVE (NEG); Urine Blood 3+ (NEG); Urine Color YELLOW; Urine Glucose NEGATIVE (NEG); Urine Protein 3+ (NEG); Urine Specific Gravity 1.015 (1.005-1.030); Urine Urobilinogen 0.2 mg/dL (0.2-1.0)
[2020-07-12 17:03] LABS: Urine Microscopic Reflex ORDER UMIC
[2020-07-12 17:18] LABS: Urine Amorphous Sediment 2+ /HPF (NONE SEEN); Urine Bacteria 20-50 /HPF (NONE SEEN); Urine RBC TNTC /HPF (NONE SEEN)
--- NOTE | 2020-07-12 17:43 | EDPHYS ---
Physician Documentation [facility] Name: Robbie Kelly Age: 75 yrs Sex: Male : 1945 Arrival Date: 07/12/2020 Time: 14:04 Bed 17 Private MD: Mookie Nguyen R ED Physician Derrick Brooke HPI: 07/12 14:37 This 75 yrs old Male presents to ER via Wheelchair with complaints of Blood kb Pressure Problem, Urinary Problem, Cough. 14:37 Pt reports his BP has been trending low for the past few days and he is unsure why. . kb Onset: The symptoms/episode began/occurred 4 day(s) ago. Severity of symptoms: At their worst the symptoms were moderate in the emergency department the symptoms are unchanged. The patient has not experienced similar symptoms in the past. The patient has not recently seen a physician. Historical: - Allergies: 14:17 No Known Allergies; ca1 - PMHx: 14:17 Anemia; COPD; Dialysis; M,W,F; Hypertension; Hypothyroidism; POLYCYSTIC KIDNEY DISEASE; ca1 RENAL FAILURE; - PSHx: 14:17 AAA surgery; ca1 - Immunization history:: Pneumococcal vaccine is up to date, Flu vaccine is up to date. - Social history:: Smoking status: Patient denies any tobacco usage or history of. ROS: 14:37 Constitutional: Negative for fever, chills, and weight loss, Cardiovascular: Negative kb for chest pain, palpitations, and edema, Respiratory: Negative for shortness of breath, cough, wheezing, and pleuritic chest pain, Abdomen/GI: Negative for abdominal pain, nausea, vomiting, diarrhea, and constipation, Back: Negative for injury and pain, MS/Extremity: Negative for injury and deformity, Skin: Negative for injury, rash, and discoloration. 14:37 Neuro: Positive for dizziness. Exam: 14:37 Constitutional: This is a well developed, well nourished patient who is awake, alert, kb and in no acute distress. Head/Face: Normocephalic, atraumatic. Chest/axilla: Normal chest wall appearance and motion. Nontender with no deformity. No lesions are appreciated. Cardiovascular: Regular rate and rhythm with a normal S1 and S2. No gallops, murmurs, or rubs. Normal PMI, no JVD. No pulse deficits. Respiratory: Lungs have equal breath sounds bilaterally, clear to auscultation and percussion. No rales, rhonchi or wheezes noted. No increased work of breathing, no retractions or nasal flaring. Abdomen/GI: Soft, non-tender, with normal bowel sounds. No distension or tympany. No guarding or rebound. No evidence of tenderness throughout. Skin: Warm, dry with normal turgor. Normal color with no rashes, no lesions, and no evidence of cellulitis. MS/ Extremity: Pulses equal, no cyanosis. Neurovascular intact. Full, normal range of motion. Neuro: Awake and alert, GCS 15, oriented to person, place, time, and situation. Cranial nerves II-XII grossly intact. Motor strength 5/5 in all extremities. Sensory grossly intact. Cerebellar exam normal. Normal gait. 15:16 ECG was reviewed by the Attending Physician. kb Vital Signs: 14:12 BP 93 / 55; Pulse 91; Resp 18 S; Temp 97.6(TE); Pulse Ox 99% on R/A; Weight 83.91 kg ca1 (R); Height 5 ft. 10 in. (177.80 cm) (R); Pain 0/10; 15:30 BP 134 / 61 Supine; Pulse 85 RA; ss 15:30 BP 134 / 67 Sitting; Pulse 91; ss 15:30 BP 129 / 68 Standing; Pulse 97; ss 16:57 BP 138 / 72; Pulse 88; Pulse Ox 98% on R/A; ss 14:12 Body Mass Index 26.54 (83.91 kg, 177.80 cm) ca1 MDM: 14:21 Patient medically screened. kb 14:37 Data reviewed: vital signs, nurses notes. Data interpreted: Pulse oximetry: on room air kb is 99 %. Interpretation: normal. 17:42 Counseling: I had a detailed discussion with the patient and/or guardian regarding: the kb historical points, exam findings, and any diagnostic results supporting the discharge/admit diagnosis, lab results, radiology results, the need for outpatient follow up, a family practitioner, a urologist, to return to the emergency department if symptoms worsen or persist or if there are any questions or concerns that arise at home. 17:44 ED course: Pt doing well. Blood pressure has been normal since arrival. Pt has no chest kb pain, shortness of breath, dizziness, lightheadedness. Pt has had hematuria for 4-5 months without change. Educated to follow up with urology for that. Verbal understanding received. Pt will continue to monitor BP at home. Will return for any concerns.. 07/12 14:26 Order name: Basic Metabolic Panel; Complete Time: 16:14 kb 07/12 14:26 Order name: CBC with Diff; Complete Time: 15:47 kb 07/12 14:26 Order name: LFT's; Complete Time: 16:14 kb 07/12 14:26 Order name: Magnesium; Complete Time: 16:14 kb 07/12 14:26 Order name: NT PRO-BNP; Complete Time: 16:14 kb 07/12 14:26 Order name: PT-INR; Complete Time: 15:47 kb 07/12 14:26 Order name: EKG; Complete Time: 14:27 kb 07/12 14:26 Order name: Cardiac monitoring; Complete Time: 15:22 kb 07/12 14:26 Order name: EKG - Nurse/Tech; Complete Time: 15:23 kb 07/12 14:26 Order name: IV Saline Lock; Complete Time: 15:23 kb 07/12 16:26 Order name: UA MICROSCOPIC; Complete Time: 17:29 bd 07/12 16:58 Order name: Urinalysis; Complete Time: 17:29 EDMS 07/12 17:20 Order name: Urine Culture EDMS 07/12 14:26 Order name: Labs collected and sent; Complete Time: 15:23 kb 07/12 14:26 Order name: O2 Per Protocol; Complete Time: 15:23 kb 07/12 14:26 Order name: O2 Sat Monitoring; Complete Time: 15:23 kb 07/12 14:26 Order name: Orthostatics; Complete Time: 15:23 kb 07/12 15:48 Order name: Urine Dipstick-Ancillary (obtain specimen); Complete Time: 16:46 kb EC:16 Rate is 83 beats/min. Rhythm is regular. QRS [place] is Normal. IL interval is normal at kb 168 msec. QRS interval is normal at 96 msec. QT interval is normal at 376 msec. Administered Medications: No medications were administered Disposition: 19:01 Co-signature as Attending Physician, Derrick Brooke MD I agree with the assessment and mitchell plan of care. Disposition: 07/12/20 17:43 Discharged to Home. Impression: Hypotension, Hematuria, Urinary tract infection, site not specified. - Condition is Stable. - Discharge Instructions: Hematuria, Adult, Urinary Tract Infection, Adult, Nxab-[id number]-Egya, Hypotension, [id number]. - Prescriptions for Augmentin 875- 125 mg Oral Tablet - take 1 tablet by ORAL route every 12 hours for 10 days; 20 tablet. - Medication Reconciliation Form, Thank You Letter, Antibiotic Education, Prescription Opioid Use form. - Follow up: Emergency Department; When: As needed; Reason: Worsening of condition. Follow up: Private Physician; When: 2 - 3 days; Reason: Recheck today's complaints, Continuance of care, Re-evaluation by your physician. Signatures: Dispatcher [employer] [facility] Elaina Olea, MARILU LOGAN-Derrick Hanks MD MD cha Smirch, Shelby, RN RN ss Clary Ross RN RN ca1 Corrections: (The following items were deleted from the chart) 17:36 17:11 Urine Microscopic Only ordered. [facility] 18:02 17:43 07/12/2020 17:43 Discharged to Home. Impression: Hypotension; Hematuria; Urinary ss tract infection, site not specified. Condition is Stable. Forms are Medication Reconciliation Form, Thank You Letter, Antibiotic Education, Prescription Opioid Use. Follow up: Emergency Department; When: As needed; Reason: Worsening of condition. Follow up: Private Physician; When: 2 - 3 days; Reason: Recheck today's complaints, Continuance of care, Re-evaluation by your physician. kb
--- NOTE | 2020-07-12 17:43 | ER ---
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 Was at dialysis today at 053-1000. "the urinary problem has been for a long time and they told me I need to go to [place] for that". Coronavirus screen: Client denies travel out of the [place] in the last 14 days. At this time, the client does not indicate any symptoms associated with coronavirus-19. Ebola Screen: Patient negative for fever greater than or equal to 101.5 degrees Fahrenheit, and additional compatible Ebola Virus Disease symptoms Patient denies exposure to infectious person. Patient denies travel to an Ebola-affected area in the 21 days before illness onset. No symptoms or risks identified at this time. Initial Sepsis Screen: Does the patient meet any 2 criteria? No. Patient's initial sepsis screen is negative. Does the patient have a suspected source of infection? No. Patient's initial sepsis screen is negative. Risk Assessment: Do you want to hurt yourself or someone else? Patient reports no desire to harm self or others. Onset of symptoms was July 12, 2020. 14:12 Method Of Arrival: Wheelchair ca1 14:12 Acuity: DADA 3 ca1 Historical: - Allergies: 14:17 No Known Allergies; ca1 - PMHx: 14:17 Anemia; COPD; Dialysis; M,W,F; Hypertension; Hypothyroidism; POLYCYSTIC KIDNEY DISEASE; ca1 RENAL FAILURE; - PSHx: 14:17 AAA surgery; ca1 - Immunization history:: Pneumococcal vaccine is up to date, Flu vaccine is up to date. - Social history:: Smoking status: Patient denies any tobacco usage or history of. Screenin:30 Nutritional screening: No deficits noted. Tuberculosis screening: Never had TB. Fall ss Risk None identified. 18:00 Abuse screen: Denies threats or abuse. Denies injuries from another. ss Assessment: 14:30 General: Appears in no apparent distress. comfortable, Behavior is calm, cooperative, ss Pt is laughing and joking with ED staff. . Pain: Denies pain. Neuro: Level of Consciousness is awake, alert, obeys commands, Oriented to person, place, time, situation, Speech is normal, Facial symmetry appears normal, Denies blurred vision dizziness, numbness headache. Cardiovascular: Capillary refill < 3 seconds is brisk in bilateral fingers Patient's skin is warm and dry. Dialysis shunt: in the dorsal aspect of left forearm, with palpable thrill, with auscultated bruit, with no erythema, with no edema, no bleeding noted. Respiratory: Airway is patent Respiratory effort is even, unlabored, Respiratory pattern is regular, symmetrical. GI: Patient currently denies abdominal pain, diarrhea, nausea, vomiting. : No signs and/or symptoms were reported regarding the genitourinary system. EENT: Nares are clear Oral mucosa is moist. Derm: Skin is intact, is healthy with good turgor, Skin is pink, warm \\T\\ dry. normal. Musculoskeletal: Circulation, motion, and sensation intact. Range of motion: intact in all extremities, Swelling absent. 16:57 Reassessment: Patient appears in no apparent distress at this time. Patient and/or ss family updated on plan of care and expected duration. Pain level reassessed. Patient is alert, oriented x 3, equal unlabored respirations, skin warm/dry/pink. Patient denies pain at this time. Patient states feeling better. Patient states symptoms have improved. 18:00 Reassessment: Patient appears in no apparent distress at this time. No changes from ss previously documented assessment. Patient and/or family updated on plan of care and expected duration. Pain level reassessed. Patient denies pain at this time. Patient states feeling better. Vital Signs: 14:12 BP 93 / 55; Pulse 91; Resp 18 S; Temp 97.6(TE); Pulse Ox 99% on R/A; Weight 83.91 kg ca1 (R); Height 5 ft. 10 in. (177.80 cm) (R); Pain 0/10; 15:30 BP 134 / 61 Supine; Pulse 85 RA; ss 15:30 BP 134 / 67 Sitting; Pulse 91; ss 15:30 BP 129 / 68 Standing; Pulse 97; ss 16:57 BP 138 / 72; Pulse 88; Pulse Ox 98% on R/A; ss 14:12 Body Mass Index 26.54 (83.91 kg, 177.80 cm) ca1 ED Course: 14:04 Patient arrived in ED. as 14:04 Mookie Nguyen MD is Private Physician. as 14:16 Triage completed. ca1 14:17 Arm band placed on right wrist. ca1 14:21 Elaina Olea FNP-C is [facility]. kb 14:21 Derrick Brooke MD is Attending Physician. kb 14:30 Patient has correct armband on for positive identification. Bed in low position. Call ss light in reach. 14:52 Tamra Weldon, RN is Primary Nurse. ss 16:46 UA MICROSCOPIC Sent. iw 18:00 No provider procedures requiring assistance completed. Patient did not have IV access ss during this emergency room visit. Administered Medications: No medications were administered Outcome: 17:43 Discharge ordered by MD. kb 18:01 Discharged to home ambulatory. ss 18:01 Condition: good 18:01 Discharge instructions given to patient, Instructed on discharge instructions, follow up and referral plans. medication usage, Demonstrated understanding of instructions, follow-up care, medications, Prescriptions given X 1. 18:02 Patient left the ED. ss Signatures: Elaina Olea FNP-C FNP-Melody Herndon as Gini Coleman RN RN Tamra Weldon, LEXII SHULTZ Clary Ross RN RN ca1 Corrections: (The following items were deleted from the chart) 15:30 15:30 BP 134 / 67; Pulse 91bpm; ss ss
[2020-07-12 18:18] VITALS: TEMP 97.6
[2020-07-12 18:20] VITALS: BP 138/72; O2SAT 98
--- NOTE | 2020-07-13 17:15 | EKG ---
Test Date: 2020-07-12 Test Time: 15:12:21 Grout Worker: BONNIE MEASUREMENT RESULTS: Intervals: Rate: 83 CT: 168 QRSD: 96 QT: 376 QTc: 441 [place]: P: 62 CT: 168 QRS: 53 T: 69 INTERPRETIVE STATEMENTS: Normal sinus rhythm with sinus arrhythmia Normal ECG Compared to ECG 01/22/2020 11:53:26 No significant changes Electronically Signed On 07-13-20 17:13:03 SPUDDER by Stephan Marino
== END 2020-07-12 18:02 | disposition home or self-care (01) ==
LOC: ER 14:01
DX: I95.9 Hypotension, unspecified (principal); N39.0 Urinary tract infection, site not specified; R31.9 Hematuria, unspecified; I12.0 Hypertensive chronic kidney disease with stage 5 chronic kidney disease or end stage renal disease; N18.6 End stage renal disease; Z99.2 Dependence on renal dialysis; D63.1 Anemia in chronic kidney disease; J44.9 Chronic obstructive pulmonary disease, unspecified; E03.9 Hypothyroidism, unspecified
CPT/HCPCS: 36415; 80048; 80076; 81003; 81015; 83735; 83880; 85025; 85610; 87086; 87088; 93005; 99283

== ENCOUNTER 2020-08-25 14:07 | Emergency (ER) | payer OTHER ==
--- OUTSIDE RECORDS SUMMARY | 2020-08-25 14:11 | XMS REPORT | Continuity of Care Document ---
:1945 Author Organization [facility] t Address [address] [place] [address] Care Team Providers Name Role Phone Asked, Pcp Primary Care Physician Unavailable Vishal Keen MD Attending Clinician Waqar Villatoro MD Attending Clinician Mattie Garcia NP Attending Clinician Adenike Ocampo NP Attending Clinician Tonny Acevedo MD Attending Clinician TONNY ACEVEDO Attending Clinician Unavailable Katiana WOOD Attending Clinician Mariusz Caputo MD Attending Clinician KAYDEN Admitting Clinician Unavailable TONNY ACEVEDO Admitting Clinician Unavailable Payers Payer Name Policy Type Policy Effective Date Expiration Date Sour ce Number MEDICAREMEDICARE PART [id number] 2010 Oli riddlezeny A AND 00:00:00 Denominational [id number] 2009 [place] AND [id number] 2020 [facility] 00:00:00 Meth odist AND [id number]/2020-PresentCommercia l MEDICAREMEDICARE A [id number] 2010 [facility]ASITY Rueda [id number] 2009 00:00:00 [facility] MCR [id number] 2016 [facility] SUPPLEMENT/INDIVIDUAL 00:00:00 - M marifer [facility] [id number] 2016 -PresentMedigap Problems Condition Condition Condition Status Onset Resolution Last Treating Co mments Source Name Details Category Date Date Treatment Clinician Date s/p L CEA s/p L CEA Disease Active CHASITY Cadena 02/11 ( 02/11 Ashley 02-11 Julio Acevedo) 00:00: Medica l 00 Center Pre-transp Pre-transp Disease Active Last C [facility] 12[facility] - evaluation evaluation 00:00: t & Plan: Medical for for 00 Due to Center chronic chronic his age, kidney kidney history disease disease of COPD, and AAA repair he is not an acceptabl e candidate for kidney transplan t. He understoo d and agreed with this decision. HTN HTN Disease Active [facility] St (hypertens (hypertens 12-19 [facility] - ion) ion) 00:00: t & Plan: Medical 00 Continue Center managemen t with nephrolog y as prescribe d. Aortic Aortic Disease Active [facility] St aneurysm aneurysm 12-19 Assessmen [facility]pin es - 00:00: t & Plan: Medical 00 Repaired Center with a stent in 2012. Polycystic Polycystic Disease Active C HI [facility] kidney kidney 12-19 [facility] - 00:00: Medical 00 [place] COPD COPD Disease Active [facility] St (chronic (chronic 12-19 Assessmen [facility] es - obstructiv obstructiv 00:00: t & Plan: Medical e e 00 [place] [facility] pulmonary pulmonary d with disease) disease) inhalers. No history of smoking. Asthma Asthma Disease Active [facility] ESRD (end ESRD (end Disease Active [facility] stage stage [facility] - renal renal Medical disease) disease) Center Dialysis Dialysis Disease [facility] S/P S/P Disease Active [facility] carotid carotid [facility] - endarterec endarterec 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 Family History Family Member Diagnosis Comments Start Date Stop Date Source Natural brother Cancer [facility] Natural daughter Polycystic kidney C HI [facility] Natural father Heart disease [facility] Natural father Heart failure [facility] Natural father Hypertension [facility] Natural mother Cancer [facility] Natural mother Hypertension [facility] Natural sister COPD [facility] Social History Social Habit Start Date Stop Date Quantity Comments Source History of tobacco Current smoker [place] Den[place] use Exposure to Not sure Luis Metho dist SARS-CoV-2 (event) Sex Assigned At [facility] History [facility] 2020-07-26 2020-07-26 1 [place] [facility] odist Alcohol Frequency 00:00:00 00:00:00 History [facility] 2020-07-26 2020-07-26 99 [place] [facility] od[facility] Alcohol Std Drinks 00:00:00 00:00:00 History [facility] 2020-07-26 2020-07-26 1 [place] [facility] Alcohol Binge 00:00:00 00:00:00 Tobacco use and 2020-02-26 2020-02-26 Never used [facility] - exposure 00:00:00 00:00:00 [facility] Alcohol intake 2020-02-26 2020-02-26 Current [facility] 00:00:00 00:00:00 non-drinker of Medical nter alcohol (finding) Smoking Status Start Date Stop Date Source Former smoker 2020-02-26 00:00:00 2020-02-26 00:00:00 [facility] Medications Ordered Filled Start Stop Current Ordering Indication Dosage Frequency Signature Comments Components Source Medication Medication Date Date Medication? Clinician (SIG) Name Name atordavid Yes 40mg QD Take 40 mg Smith n (LIPITOR) 2-04 by mouth Meth cadence 40 mg 11:27: every st tablet 31 evening. folic Yes Take by Luis acid/vit B 2-04 mouth. Methodi complex and 11:27: Takes st C 31 after (JADE-MIGUEL ANGEL dialysis ORAL) albuterol Yes 2{puff} Q6H Inhale 2 [place] (PROAIR 2-04 puffs Methodi HFA) 90 11:27: every 6 st mcg/actuati 31 (six) on inhaler hours as needed for wheezing. albuterol Yes 2.5mg Q6H Take 2.5 Akira ston (ACCUNEB) 2-04 mg by Methodi 2.5 mg /3 11:27: nebulizati st mL (0.083 31 on every 6 %) (six) nebulizer hours as solution needed for wheezing. levothyroxi Yes 88ug QD Take 88 Akira ston ne 2-04 mcg by Methodi (SYNTHROID) 11:27: mouth st 88 mcg 31 every tablet morning. amoxicillin Yes 1{tbl} Q.5D Take 1 [place] -pot 2-04 tablet by Methodi clavulanate 11:27: mouth 2 st (AUGMENTIN) 31 (two) 875-125 mg times a per tablet day. clopidogreL 2020- No 75mg QD Take 75 mg [place] (PLAVIX) 75 2-09 24-04 by mouth Met hodi mg tablet 09:18: 00:[address] 02 :00 metoprolol 2020- No 25mg Take 25 mg [place] tartrate 2- 02-04 by mouth Method i (LOPRESSOR) 06:06: 00:[address] 25 mg 31 :00 TAKES ONLY tablet WHEN BLOOD PRESSURE IS ELEVATED clopidogreL 2020- Yes 75mg QD Take 1 Akira ston (PLAVIX) 75 2-04 03-06 tablet (75 M ethodi mg tablet 00:00: 23:59 mg total) st 00 :00 by mouth daily for 30 days. Please resume plavix 2 days after surgery polyethylen 0 2020- Yes 17g QD Take 17 g Smith e glycol 2-09 25-06 by mouth Method i (MIRALAX) 00:00: 23:[address] 17 gram 00 :00 30 days. packet Take while taking narcotic based pain meds. traMADoL acute pain 50mg Q6H Take 1 [place] (Ultram) 50 2-04 02-11 tablet (50 M ethodi mg tablet 00:00: 23:59 mg total) st 00 :00 by mouth every 6 (six) hours as needed for moderate pain for up to 7 days .acute pain. diphenhydrA 2019-0 Yes 25mg Take [address] MINE 9-03 by mouth [facility] - (BENADRYL) 10:27: every Medica l 25 mg 50 night as Center tablet needed for Sleep. acetaminoph 2019-[address] en 9-03 mg [facility] - (TYLENOL) 10:27: rectally Medi rinku 650 MG 50 every 4 Center suppository (four) hours as needed for Fever. folic 2019-0 Yes 1{tbl} QD Take [address] acid-multiv 9-03 tablet by Crispin es - itamins 10:27: mouth Medical (NEPHRO-VIT 50 daily. Center E) 0.8 mg Tab tablet albuterol 0 Yes 1{puff} Inhale [address] HFA 9-03 puff by [facility] - (VENTOLIN 10:27: mouth via Med ical HFA) 90 50 inhaler Center mcg/actuati every 6 on inhaler (six) hours as needed for Wheezing. levothyroxi 2019- Yes 88ug Take [address] ne 9-03 mcg by [facility] - (SYNTHROID, 10:27: mouth Medic al LEVOTHROID) 50 Every Center 88 MCG morning on tablet an empty stomach. metoprolol 2019-0 Yes 50mg Q.5D Take [address] tartrate 9-03 by mouth 2 [facility] - (LOPRESSOR) 10:27: (two) Medic al 50 MG 50 times Center tablet daily. clopidogreL 2020- No 75mg QD Take [address] (PLAVIX) 75 8-21 08-21 tablet (75 L ukes - mg tablet 00:00: 23:59 mg total) Me dical 00 :00 by mouth Center daily. atorvastati 2020- No 40mg QD Take [address] n [...] [facility]ukes - (SYNTHROID, 10:28: 00:00 mouth Medi [place] LEVOTHROID) 56 :00 Every Center 75 MCG morning on tablet an empty stomach. Vital Signs Vital Name Observation Time Observation Value Comments Source Systolic blood 2020-07-29 10:16:00 136 mm[Hg] Asadto n Denominational pressure Diastolic blood 2020-07-29 10:16:00 65 mm[Hg] Sarah on Denominational pressure Heart rate 2020-07-29 10:16:00 90 /min [place] [facility] Body temperature 2020-07-29 10:16:00 37.17 Jailyn Asad moura Denominational Oxygen saturation in 2020-07-29 10:16:00 95 /min [place] [facility] Arterial blood by Pulse oximetry Respiratory rate 2020-07-29 10:15:00 12 /min Asad moura Denominational BMI 2020-07-29 05:29:00 26.03 kg/m2 [place] [facility] Body height 2020-07-29 05:29:00 177.8 cm [place] [facility] Body weight 2020-07-29 05:29:00 82.3 kg [facility] Systolic blood 2020-02-26 10:20:00 158 mm[Hg] [facility] Diastolic blood 2020-02-26 10:20:00 70 mm[Hg] [facility] Heart rate 2020-02-26 10:20:00 78 /min [facility] Body temperature 2020-02-26 10:20:00 36.83 Jailyn [facility] Respiratory rate 2020-02-26 10:20:00 16 /min [facility] Body height 2020-02-26 10:20:00 177.8 cm [facility] Body weight 2020-02-26 10:20:00 82.101 kg [facility] BMI 2020-02-26 10:20:00 25.97 kg/m2 [facility] Oxygen saturation in 2020-02-26 10:20:00 95 /min [facility] - Arterial blood by Medical Ce nter Pulse oximetry Procedures Procedure Date / Time Performing Clinician Source Performed MI AN ELECTIVE 2020-07-29 08:11:47 Rafael Blas Meth odist ENDOTRACHEAL AIRWAY THROMBECTOMY, GRAFT, AV 2020-07-29 07:39:00 Jose Keen Denominational POTASSIUM, SYRINGE 2020-07-29 07:00:00 Jose Keen Denominational POTASSIUM, SYRINGE 2020-07-29 06:11:00 Jose Keen Denominational HEMOGLOBIN, SYRINGE 2020-07-29 06:11:00 Jose Keen Denominational GLUCOSE LEVEL, SYRINGE 2020-07-29 06:11:00 Jose Keen Denominational ECG PRE/POST OP 2020-07-27 15:26:54 Rose Garcia Denominational HEMOGLOBIN A1C 2020-07-27 15:19:00 Rose Garcia Denominational HEMOGLOBIN 2020-07-27 15:19:00 Jose Keen ethodist POTASSIUM LEVEL 2020-07-27 15:19:00 Jose Keen ethodist GLUCOSE LEVEL 2020-07-27 15:19:00 Jose Keen ethodist COVID-19 QUALITATIVE PCR 2020-07-27 14:57:00 Jose Keen RHYTHM STRIP - SCAN 2020-02-19 12:30:59 Provider, Yoko [facility] RHYTHM STRIP - SCAN 2020-02-17 14:22:17 Provider, Default [facility] TRANSFUSION SERVICE 2020-02-13 18:04:02 Provider, Default [facility] REPORT SCAN [facility] HEMODIALYSIS INPATIENT 2020-02-13 13:28:00 Dong Bryson [facility] HEPATITIS B SURFACE 2020-02-13 13:05:00 Dong Bryson [facility] POCT-GLUCOSE METER 2020-02-13 12:52:[address] [facility] POCT-GLUCOSE METER 2020-02-13 05:48:[address] [facility] CBC (HEMOGRAM ONLY) 2020-02-13 02:53:00 Greg [facility] BASIC METABOLIC PANEL 2020-02-13 02:53:00 Tanika Garza [facility] ([address] [place] [address] MAGNESIUM 2020-02-13 02:53:00 Rodolfo Haji [facility] CORTISOL 2020-02-13 02:53:00 Rodolfo Haji [facility] POCT-GLUCOSE METER 2020-02-13 00:21:[address] [facility] TSH/FREE T4 IF INDICATED 2020-02-12 23:19:00 Rodolfo Haji [facility] COMPREHENSIVE METABOLIC 2020-02-12 17:46:00 Rodolfo Haji [facility] MAGNESIUM 2020-02-12 17:46:00 Rodolfo Haji [facility] CBC (HEMOGRAM ONLY) 2020-02-12 17:31:[address] [facility] PT/APTT 2020-02-12 17:31:00 Rodolfo Haji [facility] CALCIUM, IONIZED 2020-02-12 17:31:00 Rodolfo Haji [facility] BLOOD GAS, ARTERIAL 2020-02-12 17:31:[address] [facility] RRL CRITICAL LABS 2020-02-12 10:34:53 Keatonjonathan [facility] (ABG,NA,K,H&H,GLUCOSE) Medical C enter SODIUM NA-STAT LAB 2020-02-12 10:34:53 [facility] 2020-02-12 10:34:[facility] 2020-02-12 10:34:53 [facility] (H&H[facility] - STAT LAB 2020-02-12 10:34:53 [facility] TISSUE EXAM 2020-02-12 09:33:00 Kristina [facility] POCT-ACT 2020-02-12 09:12:00 Kristina [facility] ENDARTERECTOMY,CAROTID 2020-02-12 07:49:00 Kristina [facility] POTASSIUM-STAT LAB 2020-02-12 06:33:00 Kristina [facility] HGB/HCT (H&H) - STAT LAB 2020-02-12 06:33:[address] [facility] GLUCOSE-STAT LAB 2020-02-12 06:33:00 Kristina [facility] CBC W/PLT COUNT & AUTO 2020-02-12 06:33:00 Kristina [facility] - DIFFERENTIAL [facility] BASIC METABOLIC PANEL 2020-02-12 06:33:00 Bin Acevedo [facility] - (7) [facility] TYPE AND SCREEN, 2020-02-12 06:33:00 Bin Acevedo [facility] - AUTOMATED [facility] SARS-COV2/RT-PCR ([facility] & 2020-02-12 05:57:00 Tanika Garza I [facility] - REF LABS) [facility] POCT-GLUCOSE METER 2020-02-12 05:38:00 Kristina, [facility] TRANSFUSION SERVICE 2020-02-04 18:05:56 Provider, Default CHASITY Liu - REPORT - SCAN [facility] TYPE AND SCREEN, 2020-02-03 10:48:[address] [facility] [facility] - AUTOMATED Medical Center ECG 12-LEAD 2020-02-03 10:36:[address] [facility] Plan of Care Planned Activity Planned Date Details Comments Source Future Scheduled 2020-02-24 INFLUENZA VACCINE (#1) [facility] Test 00:00:00 [code = INFLUENZA Medical Ce nter VACCINE (#1)] Future Scheduled 2020-01-24 INFLUENZA VACCINE [place] [facility] Test 00:00:00 [code = INFLUENZA VACCINE] Future Scheduled 2011-05-[address] [facility] - Test 00:00:00 WELLNESS (YEAR 2 or Medical Center FIRST YEAR if no IPPE) [code = MEDICARE ANNUAL WELLNESS (YEAR 2 or FIRST YEAR if no IPPE)] Future Scheduled 2010 PNEUMOCOCCAL 65+ [facility] - Test 00:00:00 (1 of 1 - Medical Center [id number] PCV13) [code = PNEUMOCOCCAL 65+ YRS (1 of 1 - [id number] PCV13)] Future Scheduled 1995 COLONOSCOPY SCREENING [place] [facility] Test 00:00:00 [code = COLONOSCOPY SCREENING] Future Scheduled 1995 SHINGLES VACCINES (#1) [place] [facility] Test 00:00:00 [code = SHINGLES VACCINES (#1)] Future Scheduled 1963 Hepatitis C screening [place] [facility] Test 00:00:00 (procedure) [code = 172985062] Future Scheduled 1961 COVID-19 VACCINE (1 of [place] [facility] Test 00:00:00 2) [code = COVID-19 VACCINE (1 of 2)] Future Scheduled [address] [facility] - Test 00:00:00 malignant neoplasm of Medica l Center colon (procedure) [code = 116394416] Encounters Start End Encounter Admission Attending Care Care Encounter Source Date/Time Date/Time Type Type Clinicians Facility Department ID 2020-07-29 2020-07-29 Outpatient KAYDEN [facility] 021 [id number] [place] 00:00:00 00:00:00 JOSE [address] 2020-07-27 2020-07-27 Outpatient KAYDEN [facility] [id number] [place] 00:00:00 00:00:00 JOSE [address] 2020-07-22 2020-07-22 Outpatient KAYDEN [facility] [id number] [place] 00:00:00 00:00:00 JOSE [address] Results Test Description Test Time Test Comments Results Result Sourc e Comments Airway Rafael Blas CRNA [place] on 4 07/29/2020 8:12 Denominational 08:11:47 AMAirway Date/Time: 07/29/2020 7:40 AM Location: OR Performed by: CATALINA/AAAuthorized by: Saud Villatoro MD Urgency: ElectiveDifficult Airway: No Preoxygenated with 100% O2: Yes C-spine Precautions Maintained Throughout: Yes Mask Ventilation: Not attemptedFinal Airway Type: Endotracheal airwayFinal Endotracheal Airway: ETTCuffed: Yes Technique Used: Direct laryngoscopyDevices/Me thods Used in Placement: Intubating styletInsertion Site: OralBlade Type: MillerLaryngoscope Blade/Videolaryngoscop e Blade Size: 2ETT Size (mm): 8.0Cuff at minimum occlusion pressure: Yes Measured from: LipsETT to Lips (cm): 21Placement Verified by: CO2 detection, direct visualization and equal breath sounds Laryngoscopic view: Grade I - full view of glottisRapid Sequence Induction (RSI): No Modified RSI: No Number of Attempts at Approach: 1 Potassium, syringe 2020-07-29 07:20:20 Test Item Value Reference Range Interpretation Comme nts Potassium, syringe (test code = 5.0 See_Comment [Automated message] The system 2007) which generated this result transmitted ref erence range: 3.5 - 5.0 mEq/L. The reference range was not used to int erpret this result as normal/abnormal . [facility] MethodistGlucose level, [id number] 06:42:51 Test Item Value Reference Range Interpretation Comments Glucose, syringe (test code = 113 mg/dL 65-99 H 2345-7) Lab Interpretation (test code = Abnormal 30061-1) [facility] MethodistHemoglobin, [id number] 06:42:51 Test Item Value Reference Range Interpretation Comments Hemoglobin, syringe (test code = 10.7 g/dL 14-18 L 718-7) Lab Interpretation (test code = Abnormal 28676-5) Luis MethodistCOVID-19 qualitative [id number] 22:42:40 Test Item Value Reference Range Interpretation Comments Interpretation (test Negative results do code = 1947702) not preclude 2019-nCoV infection and should not be used as the sole basis for treatment or other patient management decisions. Negative results must be combined with clinical observations, patient history, and epidemiological information. COVID-19 qualitative Not-Detected Not-Detected PCR result (test code = 14091-4) COVID-19 qualitative See link below for C ase Number: PCR (test code = PDF Lab Report [id number]) [facility] MethodistHemoglobin [id number] 20:50:44 Test Item Value Reference Range Interpretation Comments Hemoglobin A1C (test 5.3 % 4-5.6 HbA1c c utoffs for code = 56863-6) diagnosing d iabetes:4.0% - 5.6% = normal 5.7% - 6.4% = increase d risk for diabetes (prediabetes)9> =6.5% = lnqacnhq2Hbpdh for glycemic contro l (ADA 2016)< 7.0% Ta rget for non chava lts with diabetes. More or less stringent targe ts may be appropriate for individual ari ents. <7.5% Target for Children and ad olescents with type 1 nasir betes. Luis MarieeECG Pre/Post [id number] 18:59:42 Test Item Value Reference Range Interpretation Comments Ventricular rate (test 82 code = 253) Atrial rate (test code 82 = 255) MI interval (test code 174 = 266) QRSD interval (test 98 code = 260) QT interval (test code 360 = 264) QTC interval (test code 420 = 265) P axis 1 (test code = 61 267) QRS axis 1 (test code = 58 268) T wave axis (test code 56 = 270) EKG impression (test Normal sinus rhythm-In code = 273) automated comparison with ECG of 08-JUL-2014 11:47,-No significant change was found- [place] MethodistGlucose [id number] 18:07:41 Test Item Value Reference Range Interpretation Comments Glucose (test code = 2345-7) 113 mg/dL 65-99 H Lab Interpretation (test code = Abnormal 67416-8) [place] MethodistPotassium [id number] 18:07:41 Test Item Value Reference Range Interpretation Comments Potassium (test code = 5.1 See_Comment H [Aut omated message] 0773-3) The system [employer] generated this result transmitted ref erence range: 3.5 - 5. 0 mEq/L. The refe rence range was not u sed to interpret this result as normal/abnor mal. Lab Interpretation (test Abnormal code = 45596-4) [place] [id number] 17:39:47 Test Item Value Reference Range Interpretation Comments HGB (test code = 718-7) 9.1 g/dL 14-18 L Lab Interpretation (test code = Abnormal 10382-0) [place] MethodistTissue [id number] 11:07:00 Test Item Value Reference Range Interpretation Comments Case Report (test code Surgical Pathology = 104) Report Case: [id number] Authorizing Provider: Bin Acevedo, Collected: 02/12/2020 09:33 AM Ordering Location: [facility] Received: 02/12/2020 10:58 AM PERIOPERATIVE SERVICES Pathologist: Carlos Betancourt MD Specimen: Carotid, Left, LEFT CAROTID PLAQUE DIAGNOSIS (test code = t6nfaIYrYESkm8tzTZNwiNP 3220) uZzEwMzNcZnRuYmpcdWMxIH sjyuHzRTnkq8GcH7RkUkFyD FxhbnNpXGRlZmxhbmcxMDMz ALD6wlQuEKZsIVpfIYNzNLm oYb7gfMWaqXfkTlJsPYNxz9 cbsxEJurgxgQm2f8zgDQMrF xG8dZFeNHxnS5qaanYixURq YBCnYZh6qD40LEYydF7noWF sIDtccmVkMFxncmVlbjBcYm l0MIDzQ9tzUWMhHZItD4BwO W9yXQIhSrt4CBA1GWL7cIlm a3W5dGTtfGGfhHtcIiQyUzG hJHOHr8BsICv4cJxwS8XzDT UtEtV1aQYjIDNrCIwvFNFnD BRriqW6lE97OJwwgvV2vBFo u0Vnb79ma543xF0buUPhXKJ 1GUEqDCEtkGCgTLVfPKN0MY BifTLmL5p4VqRuyFGqV3R3K hFooAEoW8E9EkHiwYAnX6J2 EiSilYGxGFKzfJDnEa3ezOV orRIjfq5wse00HYW1j2GziO rbLWR0ZMC0YpVxOr5ifFLfH SSaDD7tDjGmgLTdVJWsrk42 kSinQYnbqaCilX1jRgLrWXI zvFHiCXEhTI0daZFjSIWfkL 5ucmxjXHBnYnJkcmhlYWRcc BczxbHwSk9mqKdcMKS3SXmt W9xokQ2hGaW8OEliE4bklR9 iKJb6KDbwoTZ0KVOihF1hZI 1anwilx5mdOjUlPX0cklqqa 0aiEjTgJD9wijh3d2ahPtQk TF7egrqmk2iyLdTfGAreMBS bdlloQBMso2OxtkbbKMTxa5 GgM5NhmArdY56ugQdiO38bA EHwxHvjoO4zqDseoX7zVkSs ZnMyMFxxbFxwbGFpblxmMFx mczIwXHBsYWluXGYxXGZzMj AgQVJURVJZLCBMRUZUIENBU j6AHDTuIGNTHIAWKMBNKLHN A54NLrdxFCCzS1TTE8gEWSN aZAWNHQWHS5IIAAGILIjBAH NUDRMZFVihEWI0a2himMSiV HNzdGUxODAwMFxhbnNpXGRl ZlozvgebCMPaYAI2xhHzYMB gUJhaNIStSFbmFc6zxFQmkG doMaKfCRHvt0rwzqQQmmnwl Mv6y2duLSMmJoM5mUQxGXfb X1ikpxXtmRAeHTHbUBo8eI3 7EJFnbW6gfXDvNPhkgzUyFp E6CGikUIHsLjS9KPVvzRIaE XYiA2nwIEVwFQpsALYjMSel oFPsJHJ8zJudm2W5qLDvuMR hqYdlFjSoUjEtSuJDk1NvKI t2bSqmE0IkCOBqXsK1uDTfP TCaADcsJJPmNQWppnW0dX13 LVbdzkZ5qXOwz9Vlb12ae89 1eG7jjVCmYKN6NBWpNIXciU TeBSAjGAY5TBDgeCSyK9ypW OGjEO1iwvmaECrzFWicWSLv kFF9JIIkmFXmB7DeXGLaEOd dRWXdnuv5YwPhMs1gbQLxsU isBHeau6vry3nlzELnRee1M XWjMbTxYtvoXYudz8Ddy8bu LAEsvs0wEWX0rJQysLgvs4K 9tRAeKCWlaATmRGQfZB7xhP ZtJVQcwA4bcvvbODFwJuVab uhbMWQykHyyevNfGu8chNxn FSC3UMsiF8srwF5cEgK8XRc kI2ksjU6bIBm9COahMVGqnD Q8inY3UPYhqWEsL1LtwR2gI SIqBV8ccnv4d8jdCUH1IXaw OTWsOnE0pmB3UQFcbZFkCBL whUkuMDtyx596AVX1MxEhFU Xyc3ZyO1WsoHbzQ21ivXhuL 85jXHFytEorsN1rzDpnwS6c LgNsNbFkRYvciYgmRB9sJAN cQ9fkjKUkBAUbMMFmH3dgZc VdtD1mmXovNLwdorMoZEWkU ag6YQJspBLzAWRyMwr4IJKr ZYHyE62sebbbDBC0uK4eh1e ik8JiUClvWLA2DZSfk66yVH popeK1HQhoVc7nSHRrOYh5C YnuBVM7sR== CPT Code(s) (test code b1ewuJPeQFXewKCjPcQxYGT = 3357) qAQZfb6zrPDTgaIXqLsAhAx NcZnRuYmpcdWMxXGRlZmYwe 6ldo551fJXfm6bzLQMtLzZ6 bFPpIJRvzLHnX273j6vss9f pwpRbyMP0BAKaFXO2IWzdmx NczwA9DPganAUqBoJ9ILpdq xGyIIvjdxItbvBsPyj8WNQc C105VZJ1jVecd2bpYUX2CHN wZLVdAlOdDr6opANrX818QH PrUAFWLDLpnUn4RMSxqcSqj oErlDTOr510S860h7xqYBEe dkXlwGaTlvbmx7teY072PUX hcGVydzEyMjQwXHBhcGVyaD X5BNUwCC0vezriHrCqKH0uz vplLaAkEF4zqaq3SoNaUE7d cmdiNzIwXGhlYWRlcnkwXGZ kj5DeiceyXN6aG0Jav0A8bT 9maXRcZGVmdGFiNzIwXGZvc x9fdSLvINzlc4AlVNO6qrR4 uGNdvDHoZYKhZC09Dnjvy2M qSwyrEVD8BNKozjKqi4Lcg2 jzSiFgoyKhT2deT4ZhUFCdR FPoQCGlDqMjdhAmz2Aui4Tu wIQisCm6i0ngGAHcUMGudTc cg4fwXPK5XSMsU9F9dSTbh0 fuJQjtOYSyrXE1tihkDPsnU BMiknP4yrsyZCtiPWOreKR6 gskyJNkoZDVjUkB3legzGXk iPIIvADH9JFhlh005GCW2LB xzYmtwYWdlXHBnbmNvbnRcc GduZGVjXHBsYWluXHBsYWlu XGYwXGZzMjRccWxccGxhaW5 sQiBfCsYrZVmoLC1tHFKhB7 tqpKFgAQEyZLKqJ2foHsWeg Q1vdTmxQFrdtcQdJTq3RbE7 VjY1WZYzFDmoBNS2 CLINICAL HISTORY (test v3ndpLEsIQVhhYMgGfDhKNS code = 3358) cDHNhs5woHGQuuGCePpSzNr NcZnRuYmpcdWMxXGRlZmYwe 2kjh201dBLot7xuNKHaTpT9 mDYgBQStfMRoM658XYQmVRm rp3jlf7AwKZUwzVKfl2Z8DA DVflacuXl1yBccA38bh4R7R xmsK7raHWQzRPLuH3IiXA4y VZOxEki2EII6ZIM0JJUxDVY bD6OcLD5fEITcfRDnTOe3y6 fntFgyQZWwTBB8j9ofOXuiv yHoUW6shq9deOe1m5txxwWi FCPbFMMnlLQWJGWeA6OfvXc hZt1xoLi5kWgkNfwbKFS2Ce x6PM0aln49nku3wMewFCAvy jtrYtT1LPglPRXfceojQQp6 MFxtYXJnbDcyMFxtYXJncjc yMFxtYXJndDcyMFxtYXJnYj ofCWayDCQwWYH6EGfcw263R ZB1SVzal9qjg2mkvUGbPtb6 WTSrIsRfVyaoTGifm7Oid6y rQIKtxp5jUWF9tVTidOtqj3 U7kZMsFHJsgOSpysTiZFYdC fE1CSgxXF2xjs72OOPoTCV3 nm5gvKLbhVaaweFjbTXbVKz hH9BiPGJka853GMLdU1QnZF Auc1S4vfQuVoLvDMAukPL4j lJ8UJDwZBm8vVYefbB6jzQq bGRzH7howI45KtRwrMBvH3P itO67PnNjiPUdG6DnxR09Ca MfoFMiO8EcfC86WaLyjOMcO JGpxVVeCh5ufWWlcVSyn4Qs rGDcHWlbC73wk543MTMbbjL oC1sncCWiengxhBTqpaqhZK mbnuP4YVm0sdUxydiuwUubn GFpblxmMVxmczIwXGxhbmcx NLOaILsdL1dvBuBpVRXdmDh dIXbwn8OkOKFrSZPwXrSzWU YckEIcEPKzrCchCSA2OV3db 8fiWLopWAC1 SPECIMEN SOURCE (test i3fisHZsCRJwzVGpShZkVOU code = 3377) rJRBkf3paVCHdaNViDxDvEf NcZnRuYmpcdWMxXGRlZmYwe 0fup200dAEzu0awLXGfNnD1 kPYhZPIspPPyB839ODQtMOy vo4fju3LlKKUmoEZqu6W3ZK MJaikhrQx8dSidQ87wy5C0H javD9qxVJVpHJKpL8BoMS3w RKUbTwa1IGC8OAX9JSUkXTT nI7MtQH9tLUUriJRzTJa0a6 vpqKybINWbYOP1b5zcJQzos jStFI8lbl5gfIu1x3qgryPs OGGxHIMyuJKTRZAtY0SxrQf fHw3ovRc7hPqmMqztVBT7Wf v8LR8scv79yvc2yMsdLLTqp dciAyI7DLfkYJVaqfdiJEf9 MFxtYXJnbDcyMFxtYXJncjc yMFxtYXJndDcyMFxtYXJnYj rqKAhqEXNdIFP4MTnhg503A FV5EVlaj1uwa9awyHChSof1 YAGcMdXxCgqtXYrgk5Dwm8e lRHTwjd6zLBN1zBFoiVfjk0 A5cLKiPHZexZNsowElJYLyJ gS2DUxjRI4mxn87LQLdPTT1 ti6idWPetBsdowSglAHgRLx tB4GjVVPpy795JVFzW5FgKJ Stn2I4wqQuWzRbUZSlvLP2q jC3IHMoZAs9fIZnfaS5ccTw iYJaP9nfwU34XaMemMLjW8Q kqW92ToEmfFYqQ3SoxF58Ds CmaATwX3BriN05YeNzjAMgT HKbrJScUi8udSIbkYQty7Ap zAGoYNlxK73lu336AFBbktC hP3gbzEKvldkqeOZqwzenEK qcyqQ0PSj9deCsxlrrnElap GFpblxmMVxmczIwXGxhbmcx KFLoNJbmI3wsWeNvIXKlnDg nWHueq2ZyYINzKYGvRnZhW2 Gwc2KtMGooJAFsfChyUPX0 GROSS DESCRIPTION m3djfZNrRPFtxNHfGyOhMXN (test code = 3366) qCMQyg2xaPMRvuUPkHiSsHn NcZnRuYmpcdWMxXGRlZmYwe 5ska047qHFsf4xvRVMlGiX6 vGJfHELmaRSjK913b2cyj0d qdeAmmBR5VQHzIIO2HKubdb HnghE1QHprvQAoZtE3WMvak aAnKJmxaaWxmqHtUwf3XSZj F041SNL6sSryw7vnCSI9AHC vWTCkKbWzDk6kyOYoE689GH MoCAKFCRTpcAj3MGErvkFlf nOhuRBHn202P594r7keKWRy dpCjeIzLcyijr5sqB393NYL hcGVydzEyMjQwXHBhcGVyaD H2KPQbHV5stgbgKzXzSI3zx ogfVaAaPM9issz4ErPqQM4m cmdiNzIwXGhlYWRlcnkwXGZ ah7CnjrkgNW0tD4Wlx4H7cF 9maXRcZGVmdGFiNzIwXGZvc p5bmLIoMXbdk6VhXRZ5myO7 hYOosWIeTPVcFI03Jedbd9B jPvnkFHX4XGSygdUtg5Cys6 vhPkExmnPlA6tdX5GeKAHhT LXbEVOdHmXjcySau6Tnl1Lq pFNogCl0y6aqELRoFTOsyQf lq7kpWTD4GYAfL0X6pDJaq9 lmRGlfSHEttJV6ppjjZQzhT XRhslG5ejeeCMtiYJUleSW9 ditxCXprBYMrAzW3drpjIUt sFYBqZQC5LEhlu710GDB7OZ xzYmtwYWdlXHBnbmNvbnRcc GduZGVjXHBsYWluXHBsYWlu XGYwXGZzMjRccWxccGxhaW5 nMrQvRoTjZMkuOU3qJCJrS9 srzQRjFUCtZEKcV9icPbJqf N1yfFmgYKrvndDlXAHnBXOt O9CzqsJzRIUaBHRcEKzrXeX eNAQoa9d7zZV7iWFinGY2kK HunMefIbBbFW6xjZIzCA3qG MsxSBmcgbMqb3KcSM79yNIi mwIwubIyPcUcbo13pCWpVQn lZnQiIGlzIGEgcHJldmlvdX PljMVqaeEjl0ZrWWYhidKjq 71dn1WvuVFeoQ82YBTpDAQ2 XJGqQTEhrGNkolrtMQ84PZC uHUawJLljifs6kYCeyxIpSS 23TSPgBTuiTLQiBG7imBKvU bUsD6SfA4wvJD1aiXHfh6Na fRRdiEdge8ErlZzvetEpHWP vIHJldmVhbCBjYWxjaWZpY2 U2lU9cjjWwICTowTJeilawz ONmvO2wFP9nIUThXVwdPWZq tUUrjxZazt2vNYCajGGvs8C jnFH5cJPjVVXvI5Ivb23kJF WmUUCozOPliBK4ANLzzO1kU JQuKRYxpHoif2rvSmEvYMGn nDXoIdtpCSKbr65ySVLqvux zFWYkR7ovwNAsQHPAajG4ii wgTUhTLCBQQSAoQVNDUClcc GFyXHBhclxwYXJ9 MICROSCOPIC p9yfuFSgHUNlbQNeFhZqOQW DESCRIPTION (test code xZRIrk6ajBNLniCExFmKmKr = 3371) NcZnRuYmpcdWMxXGRlZmYwe 3pvj505jBCnj7awDCGmFuP0 iNLhXWLjpILlK346c4yju5c rtcEhbWK9FWBnHWT4ZShigd NjlbO3SCbsvVCsYgF3XLpih wBuIFoldfMrfgLxRmf6UOEi O980GWQ0sLcly2fgVLG4OZC xZMIwVxBfQu5ucXChF526VA GdLURPIXZtlMy5TOOklrHlj sLhpLVKy201S045s0dwEPKp btQkqDoNyiedj1opP584JXQ hcGVydzEyMjQwXHBhcGVyaD U9EVEwXG7rkyldAnClZE1ub lqzBqNpQD8lphs1XtQxMK3o cmdiNzIwXGhlYWRlcnkwXGZ yn9FlkgtjMU2pO2Nxy3Z6pD 9maXRcZGVmdGFiNzIwXGZvc b1sdUFkIOlma1KrWYO6vcM6 oJDqwRExISUrKF59Ftdrr6T yOmssLKJ9FNYflwOuf3Hjn8 efGuNbvxNhF3gwQ0HgGOKjG HAwQCNtPlKnnqGwx7Dok5Xd cGTxkCi3l0jeVXXaXOLewUp dq5vvYIE4VVEvF7K5rZZcp4 lxYOzrWGWeoEI4eiyyKNbxC FKmnqS6zxqmWXroZVDoxVY6 dywuFPwzZTZkXuK8mjuqNCn vNIXtMPO9TIrpt617COA2TR xzYmtwYWdlXHBnbmNvbnRcc GduZGVjXHBsYWluXHBsYWlu XGYwXGZzMjRccWxccGxhaW5 ePkNnOmHmEQrcLO4lDMJdM7 tgvKJkBOTrSOXbQ5juXbYil E4uaFzgYMynvmBfSAPomjKq pt7xYWehGQQ0 [facility] [id number] 11:07:00Surgical Pathology Report Case: [id number] Authorizing Provider: Bin Acevedo, Collected: 02/12/2020 09:33 AM OrderingLocation: [facility] Received: 02/12/2020 10:58 AM PERIOPERATIVE SERVICES Pathologist: Carlos Betancourt MD Specimen: Carotid, Left, LEFT CAROTID PLAQUE ARTERY, LEFT CAROTID, ENDARTERECTOMY:CALCIFIC ATHEROSCLEROTIC PLAQUE Signing Pathologist Direct Phone Line: [phone] signed by Carlos Betancourt MD on 02/17/2020 at 11:07 [id number]; [id number] carotid stenosis Carotid, LeftA. Received fresh labeled with the patient's name, medical record number and "parotid, left" is a previously incised portion of yellow plaque measuring 1.6 cm in length and 0.8 cm in diameter. Specimen is serially sectioned to reveal calcifications measuring up to 0.2 cm in thickness. Breaker Up sections are submitted in A1, following decalcification.SATISH [place] PA (ASCP)PerformedHepatitis B surface [id number] 14:11:00 Test Item Value Reference Range Interpretation Comments HBsAg Screen (test code Nonreactive Nonreactive = 5195-3) ТАТЬЯНА (test code = ТАТЬЯНА) Specimen is considered negative for HBsAg. Lab Interpretation (test Normal code = 72250-3) [facility] Center[facility]ATITIS [facility] SURFACE [id number] 14:11:00 Test Item Value Reference Range Interpretation Comments HEPATITIS B SURFACE ANTIGEN (2) Nonreactive Nonreactive (BEAKER) (test code = 2585) Specimen is considered negative for HBsAg.POC-Glucose [id number] 13:03:00 Test Item Value Reference Range Interpretation Comments POC-Glucose Meter (test 83 mg/dL 70-110 : TE STED AT [facility] code = 1538) [address] [facility], [address]: Motorcycle Designer/Techni justus ID = [id number] for IKER, JOIE Lab Interpretation (test Normal code = 27624-6) [facility] [id number] 13:03:00 Test Item Value Reference Range Interpretation Comments POC-GLUCOSE METER 83 mg/dL 70-110 : TESTED A T [facility] [address] ([facility]) (test code = [facility], 1538) [address]: Motorcycle Designer/Techni justus ID = [id number] for ELGI N, JOIE POC ACTIVATED CLOTTING [id number] 06:30:00 Test Item Value Reference Range Interpretation Comments Activated Clotting Time 235 sec : 74 -137 seconds, (test code = 441) Baseline: TESTED AT [facility] [address] [facility], [address]: Motorcycle Designer/Techni justus ID = [id number] for DON FARLEY [facility] CenterPOCT-[id number] 06:30:00 Test Item Value Reference Range Interpretation Comments ACTIVATED CLOTTING TIME 235 sec : 74 -137 seconds, (AKER) (test code = Baseli ne: TESTED AT 441) [facility] [address] [place], [address]: Motorcycle Designer/Techni justus ID = [id number] for DON FARLEY Basic Metabolic [id number] 06:01:00 Test Item Value Reference Range Interpretation Comments Sodium (test code = 136 meq/L 593-016 6233-2) Potassium (test code = 5.2 meq/L 3.5-5.1 H 2823-3) Chloride (test code = 106 meq/L 98-107 2075-0) CO2 (test code = 20 meq/L 22-29 L 2028-9) BUN (test code = 30 mg/dL 7-21 H 3094-0) Creatinine (test code 8.83 mg/dL 0.57-1.25 H = 2160-0) Glucose (test code = 94 mg/dL 70-105 2345-7) Calcium (test code = 8.5 mg/dL 8.4-10.2 12398-5) EGFR (test code = 6 mL/min/1.73 [place] [address]-6) NOT ACCURATE CREATININE CLEARANCE IN PREDICTING GLOMERULAR FILTRATION RATE . ESTIMATED GFR I S NOT APPLICABLE FOR DIALYSIS PATIENTS. ТАТЬЯНА (test code = ТАТЬЯНА) Motorcycle Designer ID - PIAYA L Lab Interpretation Abnormal (test code = 92942-6) [facility] METABOLIC [id number] 06:01:00 Test Item Value Reference Range Interpretation [...] S 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 Motorcycle Designer ID - LIAM LPOCT-GLUCOSE [id number] 06:00:00 Test Item Value Reference Range Interpretation Comments POC-GLUCOSE METER 94 mg/dL 70-110 : TESTED A T [facility] [address] (BEAKER) (test code = [address] [place], 1538) [address]: Motorcycle Designer/Techni justus ID = [id number] for Aren Cheatham [id number] 05:49:00 Test Item Value Reference Range Interpretation Comments Magnesium (test code = 1.9 mg/dL 1.6-2.6 37852-4) ТАТЬЯНА (test code = ТАТЬЯНА) Motorcycle Designer ID - LIAM L Lab Interpretation (test Normal code = 76461-2) [facility] CenterMAGNESIUM2020-08-21 05:49:00 Test Item Value Reference Range Interpretation Comments MAGNESIUM (BEAKER) (test code = 1.9 mg/dL 1.6-2.6 627) Motorcycle Designer ID - LIAM QQfiacfkz6054-57-86 05:31:00 Test Item Value Reference Range Interpretation Comments Cortisol, Total (test code 8.3 ug/dL 3.7-19.4 = 2755) ТАТЬЯНА (test code = ТАТЬЯНА) Motorcycle Designer ID - JEAN CLAUDEASI Lab Interpretation (test Normal code = 49501-4) [facility] CenterCORTISOL2020-08-21 05:31:00 Test Item Value Reference Range Interpretation Comments CORTISOL, TOTAL (BEAKER) (test code 8.3 ug/dL 3.7-19.4 = 2755) Motorcycle Designer ID - JEAN CLAUDEASICBC (Hemogram only)2020-02-13 03:06:00 Test Item Value Reference Range Interpretation Comments WBC (test code = 6690-2) 10.4 See_Comment [A utomated message] The system [employer] generated this result transmitted ref erence range: 3.5 - 10 .5 K/L. The refe rence range was not u sed to interpret this result as normal/abnor mal. RBC (test code = 789-8) 2.61 See_Comment L [Au tomated message] The system [employer] generated this result transmitted ref erence range: 4.63 - 6 .08 M/L. The refe rence range was not u sed to interpret this result as normal/abnor mal. MCHC (test code = 786-4) 31.1 See_Comment L [A utomated message] The system [employer] generated this result transmitted ref erence range: 32.3 - 3 6.5 GM/DL. The refe rence range was not u sed to interpret this result as normal/abnor mal. Hematocrit (test code = 26.4 % 40.1-51 L 4544-3) MCV (test code = 787-2) 101.1 fL 79-92.2 H MCH (test code = 785-6) 31.4 pg 25.7-32.2 RDW (test code = 788-0) 15.8 % 11.6-14.4 H Platelets (test code = 157 See_Comment [Aut omated message] 777-3) The system [employer] generated this result transmitted ref erence range: 150 - 45 0 K/CU MM. The referen ce range was not u sed to interpret this result as normal/abnor mal. MPV (test code = 9.8 fL 9.4-12.4 07308-1) nRBC (test code = 413) 0 See_Comment [Aut omated message] The system [employer] generated this result transmitted ref erence range: 0 - 0 /1 00 WBC. The refere nce range was not u sed to interpret this result as normal/abnor mal. Lab Interpretation (test Abnormal code = 37207-0) [facility] (HEMOGRAM ONLY)2020-02-13 03:06:00 Test Item Value Reference [...] (test code = 413) TSH/Free T4 If [id number] 02:45:00 Test Item Value Reference Range Interpretation Comments TSH (test code = 4.682 See_Comment [Automated 96545-1) message] The system which generated this result transmit zahraa reference range : 0.350 - 4.940 uIU/mL. The reference range was not used to interpret this result as normal/abnormal . ТАТЬЯНА (test code = ТАТЬЯНА) Motorcycle Designer ID - LIAM Frey Lab Interpretation Normal (test code = 92995-1) [facility] CenterTSH/FREE T4 IF [id number] 02:45:00 Test Item Value Reference Range Interpretation Comments THYROID STIMULATING HORMONE 4.682 uIU/mL 0.350-4.940 (BEAKER) (test code = 772) Motorcycle Designer ID - LIAM CARRILLOOCT-GLUCOSE [id number] 00:32:00 Test Item Value Reference Range Interpretation Comments POC-GLUCOSE METER 82 mg/dL 70-110 : TESTED A T [facility] [address] (BEAKER) (test code = [place], 1538) [address]: Motorcycle Designer/Techni justus ID = [id number] for Aren Cheatham Blood gas, [id number] 18:26:00 Test Item Value Reference Range Interpretation Comments pH, Arterial (test code 7.31 7.35-7.45 L = 2744-1) pCO2, Arterial (test 45 See_Comment [Autom ated code = 2019-01) message] The system which generated this result transmitted reference range : 35 - 45 mmHg. The reference range was not used to interpret this result as normal/abnormal . pO2, Arterial (test 87 See_Comment [Automa zahraa code = 2703-7) message] The system which generated this result transmitted reference range : 80 - 90 mmHg. The reference range was not used to interpret this result as normal/abnormal . O2 Sat, Arterial (test 95.8 % 96-97 L code = 2708-6) HCO3, Arterial (test 22 mmol/L 21-29 code = 1960-4) Base Excess, Arterial -4.4 mmol/L -2-3 L (test code = 1925-7) Patient Temperature 37.0 C (test code = 8310-5) FIO2 (test code = 1819) 21 % Lab Interpretation Abnormal (test code = 53537-6) [facility] CenterBLOOD GAS, [id number] 18:26:00 Test Item Value Reference Range Interpretation [...] code = 1819) 21.0 % Comprehensive metabolic [id number] 18:16:00 Test Item Value Reference Range Interpretation Comments Protein, Total (test 5.8 See_Comment L [Autom ated code = 2885-2) message] The system which generated this result transmit zahraa reference range : 6.0 - 8.3 gm/dL . The reference range was not u sed to interpret th is result as normal/abnormal . Albumin (test code = 3.3 g/dL 3.5-5 L 62517-3) Alkaline Phosphatase 50 U/L 40-150 (test code = 6768-6) Total Bilirubin (test 0.4 mg/dL 0.2-1.2 code = 1974-2) Sodium (test code = 139 meq/L 202-298 6292-2) Potassium (test code 4.8 meq/L 3.5-5.1 = 2823-3) Chloride (test code = 111 meq/L 98-107 H 2075-0) CO2 (test code = 19 meq/L 22-29 L 2028-9) BUN (test code = 25 mg/dL 7-21 H 3094-0) Creatinine (test code 7.10 mg/dL 0.57-1.25 H = 2160-0) Glucose (test code = 83 mg/dL 70-105 2345-7) Calcium (test code = 7.7 mg/dL 8.4-10.2 L 53390-3) AST (test code = 11 U/L 5-34 1920-8) ALT (test code = 10 U/L 6-55 1742-6) EGFR (test code = 8 mL/min/1.73 [place] [address]-4) NOT ACCURATE CREATININE CLEARANCE IN PREDICTING GLOMERULAR FILTRATION RATE . ESTIMATED GFR I S 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 ТАТЬЯНА (test code = ТАТЬЯНА) Motorcycle Designer ID - NTP Lab Interpretation Abnormal (test code = 28155-3) [facility] CenterCOMPREHENSIVE METABOLIC [id number] 18:16:00 Test Item Value Reference Range Interpretation [...] S 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 Motorcycle Designer ID - XOFCNYQGHHTG1856-36-09 18:14:00 Test Item Value Reference Range Interpretation Comments MAGNESIUM (BEAKER) (test code = 1.8 mg/dL 1.6-2.6 627) Motorcycle Designer ID - NTPCalcium, Omflwli6181-25-17 18:02:00 Test Item Value Reference Range Interpretation Comments Calcium, Ion (test code = 1993-3) 1.14 mmol/L 1.12-1.27 pH, Blood (test code = 31712-2) 7.32 [facility] CenterCAL[facility], [id number] 18:02:00 Test Item Value Reference Range Interpretation Comments CALCIUM IONIZED (BEAKER) (test 1.14 mmol/L 1.12-1.27 code = 698) PH, BLOOD (BEAKER) (test code = 7.32 1810) [id number] 18:01:00 Test Item Value Reference Interpretation Comments Range Protime (test code = 15.7 See_Comment H [Autom ated 0562-2) message] The system which generated this result transmitted reference range : 11.9 - 14.2 seconds. The reference range was not used to interpret this result as normal/abnormal . INR (test code = 1.29 See_Comment [Automated 9611-6) message] The system which generated this result transmitted reference range : <=5.90. The reference range was not used to interpret this result as normal/abnormal . PTT (test code = 32.4 See_Comment [Automated 48102-5) message] The system which generated this result transmitted reference range : 22.5 - 36.0 seconds. The reference range was not used to interpret this result as normal/abnormal . ТАТЬЯНА (test code = Effective 11/20/2018: ТАТЬЯНА) PT Reference Range ChangeNew: 11.9-14.2 Previous: 11.7-14.7 RECOMMENDED COUMADIN/WARFARIN INR THERAPY RANGESSTANDARD DOSE: 2.0-3.0 Includes: PROPHYLAXIS for venous thrombosis, systemic embolization; TREATMENT for venous thrombosis and/or pulmonary embolus.HIGH RISK: Target INR is 2.5-3.5 for patients wiht mechanical heart valves. Lab Interpretation Abnormal (test code = 36745-2) [facility] CenterPT/[id number] 18:01:00 Test Item Value Reference Range Interpretation [...] (BEAKER) (test code = 413) HGB/HCT (H&H)-Stat [id number] 10:37:00 Test Item Value Reference Range Interpretation Comments Hemoglobin (test code = 786-4) 9.2 g/dL 13-16.8 L Hematocrit (test code = 4544-3) 27.0 % 40-50 L Lab Interpretation (test code = Abnormal 56600-5) [facility] CenterBLOOD GAS, [id number] 10:37:00 Test Item Value Reference Range Interpretation [...] 1819) 60.0 % HGB/HCT (H&H) - STAT [id number] 10:37:00 Test Item Value Reference Range Interpretation Comments HEMOGLOBIN (BEAKER) (test code = 9.2 g/dL 13.0-16.8 L 410) HEMATOCRIT (BEAKER) (test code = 27.0 % 40.0-50.0 L 411) Glucose-Stat [id number] 10:36:00 Test Item Value Reference Range Interpretation Comments Glucose (test code = 2345-7) 104 mg/dL 70-110 Lab Interpretation (test code = Normal 08738-6) [facility]Stat [id number] 10:36:00 Test Item Value Reference Range Interpretation Comments Sodium (test code = 2951-2) 137 meq/L 136-145 Lab Interpretation (test code = Normal 49314-1) [facility] CenterPotassium-Stat [id number] 10:36:00 Test Item Value Reference Range Interpretation Comments Potassium (test code = 2823-3) 4.0 meq/L 3.6-5.5 Lab Interpretation (test code = Normal 12060-9) [facility] CenterGLUCOSE-STAT [id number] 10:36:00 Test Item Value Reference Range Interpretation Comments GLUCOSE RANDOM (BEAKER) (test code 104 mg/dL 70-110 = 652) SODIUM NA-STAT [id number] 10:36:00 Test Item Value Reference Range Interpretation Comments SODIUM (BEAKER) (test code = 381) 137 meq/L 136-145 POTASSIUM-STAT [id number] 10:36:00 Test Item Value Reference Range Interpretation Comments POTASSIUM (BEAKER) (test code = 4.0 meq/L 3.6-5.5 379) SARS-CoV2/RT-PCR (Asymptomatic ONLY)2020-02-12 08:04:00 Test Item Value Reference Range Interpretation Comments SARS-COV2/RT-PCR Negative Not Detected, (test code = Negative, See 34197-9) external report for linked test SARS-COV-2 [facility] PERFORMING [facility] (test code = 41668-4) ТАТЬЯНА (test code = Negative results do [...] of the Act. Fact Sheet for Healthcare Providers:https://www.[employer]/Documents/Xper t%20Xpress%20SARS%20CoV- 2/Fact%20Sheets/302-3802 %84WFKJ-IWO-9%20HEALTHCA RE%20PROVIDERS%20FACT%20 SHEET.pdf Fact Sheet for Healthcare Patients:https://www.[employer]/Documents/Xpert %20Xpress%20SARS%20CoV-2 /Fact%20Sheets/302-3801% 05WIKS-WZA-7%20PATIENT%2 0FACT%20SHEET.pdf Performing Laboratory:[facility], [place] [address] [place], [place] [address]ARS-COV2/RT-PCR ([facility])2020-02-12 08:04:00 Test Item Value Reference Range Interpretation Comments SARS-COV2/RT-PCR (test code Negative Not Detected, Negative, = 8972917) See external report for linked test SARS-COV-2 PERFORMING LAB [facility] (test code = 8561256) Negative results do not preclude SARS-CoV-2 infection [...] of the Act.Fact Sheet for Healthcare Pro viders:https://www.[employer]/Documents/Xpert%20Xpress%20SARS%20CoV-2/Fact%20Sh eets/302-3802%95IOMU-ZYZ-2%20HEALTHCARE%20PROVIDERS%20FACT%20SHEET.pdfFact Sheet for Healthcare Patients:https://www.[employer]/Documents/Xpert%20Xpress%20SARS%20CoV-2/Fact%20Sheets/302-3801%20SARS-COV -2%20PATIENT%20FACT%20SHEET.pdfPerforming Laboratory:[address], [place] [address] [id number] 07:28:00 Test Item Value Reference Range Interpretation [...] S 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 Motor[employer]er ID - [id number] with platelet count + automated [id number] 07:21:00 Test Item Value Reference Range Interpretation Comments WBC (test code = 6690-2) 11.4 See_Comment H [A utomated message] The system [employer] generated this result transmitted ref erence range: 3.5 - 10 .5 K/L. The refe rence range was not u sed to interpret this result as normal/abnor mal. RBC (test code = 789-8) 3.40 See_Comment L [Au tomated message] The system [employer] generated this result transmitted ref erence range: 4.63 - 6 .08 M/L. The refe rence range was not u sed to interpret this result as normal/abnor mal. MCHC (test code = 786-4) 31.8 See_Comment L [A utomated message] The system [employer] generated this result transmitted ref erence range: 32.3 - 3 6.5 GM/DL. The refe rence range was not u sed to interpret this result as normal/abnor mal. Hematocrit (test code = 34.6 % 40.1-51 L 4544-3) MCV (test code = 787-2) 101.8 fL 79-92.2 H MCH (test code = 785-6) 32.4 pg 25.7-32.2 H RDW (test code = 788-0) 15.5 % 11.6-14.4 H Platelets (test code = 196 See_Comment [Aut omated message] 777-3) The system [employer] generated this result transmitted ref erence range: 150 - 45 0 K/CU MM. The referen ce range was not u sed to interpret this result as normal/abnor mal. MPV (test code = 10.0 fL 9.4-12.4 55123-0) nRBC (test code = 413) 0 See_Comment [Aut omated message] The system [employer] generated this result transmitted ref erence range: 0 - 0 /1 00 WBC. The refere nce range was not u sed to interpret this result as normal/abnor mal. % Neutros (test code = 65 % 429) % Lymphs (test code = 21 % 430) % Monos (test code = 8 % 431) % Eos (test code = 432) 4 % % Baso (test code = 437) 0 % # Neutros (test code = 7.45 See_Comment H [Aut omated message] 670) The system [employer] generated this result transmitted ref erence range: 1.78 - 5 .38 K/L. The refe rence range was not u sed to interpret this result as normal/abnor mal. # Lymphs (test code = 2.42 See_Comment [Auto mated message] 414) The system [employer] generated this result transmitted ref erence range: 1.32 - 3 .57 K/L. The refe rence range was not u sed to interpret this result as normal/abnor mal. # Monos (test code = 0.91 See_Comment H [Autom ated message] 415) The system [employer] generated this result transmitted ref erence range: 0.30 - 0 .82 K/L. The refe rence range was not u sed to interpret this result as normal/abnor mal. # Eos (test code = 416) 0.48 See_Comment [Au tomated message] The system [employer] generated this result transmitted ref erence range: 0.04 - 0 .54 K/L. The refe rence range was not u sed to interpret this result as normal/abnor mal. # Baso (test code = 417) 0.02 See_Comment [A utomated message] The system [employer] generated this result transmitted ref erence range: 0.01 - 0 .08 K/L. The refe rence range was not u sed to interpret this result as normal/abnor mal. Immature 1 % 0-1 Granulocytes-Relative (test code = 2801) Lab Interpretation (test Abnormal code = 66560-2) [facility] W/PLT COUNT & AUTO [id number] 07:21:00 Test Item Value Reference Range Interpretation [...] (test code = 2801) Type and screen, [id number] 07:19:00 Test Item Value Reference Range Interpretation Comments ABO/RH AUTOMATED (BEAKER) (test O POSITIVE code = 2260) Ab Scrn (test code = 890-4) [facility]GATIVE [facility] [id number] 06:45:00 Test Item Value Reference Range Interpretation Comments HEMOGLOBIN (BEAKER) (test code = 11.3 g/dL 13.0-16.8 L 410) HEMATOCRIT (BEAKER) (test code = 33.0 % 40.0-50.0 L 411) GLUCOSE-STAT [id number] 06:42:00 Test Item Value Reference Range Interpretation Comments GLUCOSE RANDOM (BEAKER) (test code 103 mg/dL 70-110 = 652) POTASSIUM-STAT [id number] 06:42:00 Test Item Value Reference Range Interpretation Comments POTASSIUM (BEAKER) (test code = 4.8 meq/L 3.6-5.5 379) POCT-GLUCOSE [id number] 05:51:00 Test Item Value Reference Range Interpretation Comments POC-GLUCOSE METER 108 mg/dL 70-110 : TESTED A T [facility] 6720 (BEAKER) (test code [facility], = 1538) [address]: Motorcycle Designer/Techni justus ID = [id number] for JORD AN, LACRYSTAL Electrocardiogram, [id number]-[id number] 12:45:46Interface, External Ris In - 02/03/2020 12:45 PM CDTVentricular Rate 72 BPMAtrial Rate 72 BPMP-R Interval 172 msQRS Duration 92 msQ-T Interval 396 msQTC Calculation(B[place]ett) 433 msP [place] 63 degreesR [place] 55 degreesT [place] 73 degreesNormal sinus rhythmNormal ECGNo previous ECGs availableConfirmed by MD Rosina, Latrell ([id number]) on 02/03/2020 12:45:38 [facility]
== END 2020-08-25 14:34 | disposition left against medical advice (07) ==
LOC: ER 14:07
DX: Z02.9 Encounter for administrative examinations, unspecified (principal)

== ENCOUNTER 2020-08-27 10:35 | Emergency (ER) | payer OTHER ==
--- OUTSIDE RECORDS SUMMARY | 2020-08-27 10:39 | XMS REPORT | Continuity of Care Document ---
:1945 Author Organization [facility] t Address [address] [place] [address] Care Team Providers Name Role Phone Asked, [...] Expiration Date Sour ce Number MEDICAREMEDICARE PART [id number] 2010 Oli riddlezeny A AND 00:00:00 Yarsanism [id number] 2009 [place] AND [id number] 2020 [facility] 00:00:00 Meth odist AND [id number]/2020-PresentCommercia l MEDICAREMEDICARE A [id number] 2010 CHASITY Rueda [id number] 2009 00:[facility]00 [facility] MCR [id number] 2016 [facility] SUPPLEMENT/INDIVIDUAL 00:00:00 - M marifer [facility] [id number] 2016 -PresentMedigap Problems Condition Condition Condition Status [...] with this decision. HTN HTN Disease Active [facility] (hypertens (hypertens 12-19 [facility] - ion) ion) 00:00: t & Plan: Medical 00 Continue Center managemen t with nephrolog y as prescribe d. Aortic Aortic Disease Active [facility] aneurysm aneurysm 12-19 [facility] - 00:00: t & Plan: Medical 00 Repaired Center with a stent in 2012. Polycystic Polycystic Disease Active C [facility] kidney kidney 12-19 [facility] - 00:00: Medical 00 [place] COPD COPD Disease Active [facility] (chronic (chronic 12-19 [facility] - obstructiv obstructiv 00:00: t & Plan: Medical e e 00 [facility] pulmonary pulmonary d with disease) disease) inhalers. No history of smoking. Asthma Asthma Disease Active [facility] ESRD (end ESRD (end Disease Active [facility] stage stage [facility] - renal renal Medical disease) disease) Center Dialysis Dialysis Disease Active [facility] patient patient [facility] S/P S/P Disease Active [facility] carotid carotid [facility] - endarterec endarterec 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 Family History Family Member Diagnosis Comments Start Date Stop Date Source Natural brother Cancer [facility] Natural daughter Polycystic kidney C HI [facility] Natural father Heart disease [facility] Natural father Heart failure [facility] Natural father Hypertension [facility] Natural mother Cancer [facility] Natural mother Hypertension [facility] Natural sister COPD [facility] Social History Social Habit Start Date Stop Date Quantity Comments Source History of tobacco Current smoker [place] [facility] use Exposure to Not sure Luis Metho dist SARS-CoV-2 (event) Sex Assigned At [facility] History [facility] 2020-07-26 2020-07-26 1 [place] [facility] od[facility] Alcohol Frequency 00:00:00 00:00:00 History [facility] 2020-07-26 2020-07-26 99 [place] Meth odist Alcohol Std Drinks 00:00:00 00:00:00 History [facility] 2020-07-26 2020-07-26 1 [place] [facility] odist Alcohol Binge 00:00:00 00:00:00 Tobacco use and 2020-02-26 2020-02-26 Never used [facility] - exposure 00:00:00 00:00:00 [facility] Alcohol intake 2020-02-26 2020-02-26 Current [facility] 00:00:00 00:00:00 non-drinker of Medical nter alcohol (finding) Smoking Status Start Date Stop Date Source Former smoker 2020-02-26 00:00:00 2020-02-26 00:00:00 [facility] Medications Ordered Filled Start Stop Current Ordering [...] Name Observation Time Observation Value Comments Source Body temperature 2020-07-29 10:16:00 37.17 Jailyn Asad moura [facility]ism Oxygen saturation in 2020-07-29 10:16:00 95 /min Luis Mariee Arterial blood by Pulse oximetry Systolic blood 2020-07-29 10:16:00 136 mm[Hg] Asadto n Yarsanism pressure Diastolic blood 2020-07-29 10:16:00 65 mm[Hg] Sarah on Yarsanism pressure Heart rate 2020-07-29 10:16:00 90 /min Luis Mariee Respiratory rate 2020-07-29 10:15:00 12 /min Asad moura [facility] Body height 2020-07-29 05:29:00 177.8 cm [place] [facility] Body weight 2020-07-29 05:29:00 82.3 kg [place] [facility] BMI 2020-07-29 05:29:00 26.03 kg/m2 [facility] Systolic blood 2020-02-26 10:20:00 158 mm[Hg] [facility] Diastolic blood 2020-02-26 10:20:00 70 mm[Hg] [facility] Heart rate 2020-02-26 10:20:00 78 /min [facility] Body temperature 2020-02-26 10:20:00 36.83 Jailyn [facility] Respiratory rate 2020-02-26 10:20:00 16 /min [facility] Body height 2020-02-26 10:20:00 177.8 cm [facility] Body weight 2020-02-26 10:20:00 82.101 kg [facility] BMI 2020-02-26 10:20:00 25.97 kg/m2 [facility] Oxygen saturation in 2020-02-26 10:20:00 95 /min [facility] - Arterial blood by Medical Ce nter Pulse oximetry Procedures Procedure Date / Time Performing Clinician Source Performed MO AN ELECTIVE 2020-07-29 08:11:47 Rafael Blas Meth odist ENDOTRACHEAL AIRWAY THROMBECTOMY, GRAFT, AV 2020-07-29 07:39:00 Jose Keen [facility]ism POTASSIUM, SYRINGE 2020-07-29 07:00:00 Jose Keen [facility] POTASSIUM, SYRINGE 2020-07-29 06:11:00 Jose Keen [facility] HEMOGLOBIN, SYRINGE 2020-07-29 06:11:00 Jose Keen [facility] GLUCOSE LEVEL, SYRINGE 2020-07-29 06:11:00 Jose Keen [facility]ism ECG PRE/POST OP 2020-07-27 15:26:54 Rose Garcia [facility]ism HEMOGLOBIN A1C 2020-07-27 15:19:00 Rose Garcia Y[facility]anism HEMOGLOBIN 2020-07-27 15:19:00 Jose Keen ethodist POTASSIUM LEVEL 2020-07-27 15:19:00 Jose Keen ethodist GLUCOSE LEVEL 2020-07-27 15:19:00 Jose Keen ethodist COVID-19 QUALITATIVE PCR 2020-07-27 14:57:00 Jose Keen RHYTHM STRIP - SCAN 2020-02-19 12:30:59 Provider, Yoko [facility] RHYTHM STRIP - SCAN 2020-02-17 14:22:17 Provider, Default [facility] TRANSFUSION SERVICE 2020-02-13 18:04:02 Provider, Default [facility] REPORT SCAN [facility] HEMODIALYSIS INPATIENT 2020-02-13 13:28:00 Dong Bryson [facility] HEPATITIS B SURFACE 2020-02-13 13:05:00 Dong Bryson [facility] POCT-GLUCOSE METER 2020-02-13 12:52:[address] [facility] POCT-GLUCOSE METER 2020-02-13 05:48:[address] [facility] CBC (HEMOGRAM ONLY) 2020-02-13 02:53:00 Greg [facility] BASIC METABOLIC PANEL 2020-02-13 02:53:00 Tanika Garza [facility] ([address] [place] [address] MAGNESIUM 2020-02-13 02:53:00 Rodolfo Haji [facility] CORTISOL 2020-02-13 02:53:00 Rodolfo Haji [facility] POCT-GLUCOSE METER 2020-02-13 00:21:[address] [facility] TSH/FREE T4 IF INDICATED 2020-02-12 23:19:00 Rodolfo Haji [facility] COMPREHENSIVE METABOLIC 2020-02-12 17:46:00 Rodolfo Haji [facility] MAGNESIUM 2020-02-12 17:46:00 Rodolfo Haji [facility] CBC (HEMOGRAM ONLY) 2020-02-12 17:31:00 Rodolfo Haji [facility] PT/APTT 2020-02-12 17:31:00 Rodolfo Haji [facility] CALCIUM, IONIZED 2020-02-12 17:31:00 Rodolfo Haji [place] [facility] BLOOD GAS, ARTERIAL 2020-02-12 17:31:00 Rodolfo Haji [facility] RRL CRITICAL LABS 2020-02-12 10:34:53 Keatonjonathan [facility] (ABG,NA,K,H&H,GLUCOSE) Medical C enter SODIUM NA-STAT LAB 2020-02-12 10:34:53 [facility] 2020-02-12 10:34[facility] 2020-02-12 10:34:53 [facility] (H&H[facility] - STAT LAB 2020-02-12 10:34:53 [facility] TISSUE EXAM 2020-02-12 09:33:00 Kristina [facility] POCT-ACT 2020-02-12 09:12:00 Kristina [facility] ENDARTERECTOMY,CAROTID 2020-02-12 07:49:00 Kristina [facility] POTASSIUM-STAT LAB 2020-02-12 06:33:00 Kristina [facility] HGB/HCT (H&H) - STAT LAB 2020-02-12 06:33:[address] [facility] GLUCOSE-STAT LAB 2020-02-12 06:33:00 Kristina [facility] CBC W/PLT COUNT & AUTO 2020-02-12 06:33:00 Kristina [facility] - DIFFERENTIAL [facility] BASIC METABOLIC PANEL 2020-02-12 06:33:00 Bin Acevedo [facility] - (7) [facility] TYPE AND SCREEN, 2020-02-12 06:33:00 Bin Acevedo [facility] - AUTOMATED [facility] SARS-COV2/RT-PCR ([facility] & 2020-02-12 05:57:00 Tanika Garza I [facility] - REF LABS) [facility] POCT-GLUCOSE METER 2020-02-12 05:38:00 Kristina, [facility] TRANSFUSION SERVICE 2020-02-04 18:05:56 Provider, Default [facility] REPORT - SCAN [facility] TYPE AND SCREEN, 2020-02-03 10:48:00 Greg Tanika Irene [facility] - AUTOMATED Medical Center ECG 12-LEAD 2020-02-03 10:36:[address] [facility] Plan of Care Planned Activity Planned Date Details Comments Source Future Scheduled 2020-09-07 COVID-19 VACCINE (2 of [place] [facility] Test 00:00:00 2 - Pfizer series) [code = COVID-19 VACCINE (2 of 2 - Pfizer series)] Future Scheduled 2020-02-24 INFLUENZA VACCINE (#1) [facility] 00:00:00 [code = INFLUENZA Medical Ce nter VACCINE (#1)] Future Scheduled 2020-01-24 INFL[place]ZA VACCINE [place] [facility] Test 00:00:00 [code = INFLUENZA VACCINE] Future Scheduled 2011-05-[address] [facility] - Test 00:00:00 WELLNESS (YEAR 2 or Medical Center FIRST YEAR if no IPPE) [code = MEDICARE ANNUAL WELLNESS (YEAR 2 or FIRST YEAR if no IPPE)] Future Scheduled 2010 PNEUMOCOCCAL 65+ YRS [facility] - Test 00:00:00 (1 of 1 - Medical Center SPOL55_Byvvewc PCV13) [code = PNEUMOCOCCAL 65+ YRS (1 of 1 - TBZN43_Ymsknve PCV13)] Future Scheduled 1995 COLONOSCOPY SCREENING [place] [facility] Test 00:00:00 [code = COLONOSCOPY SCREENING] Future Scheduled 1995 SHINGLES VACCINES (#1) [place] [facility] Test 00:00:00 [code = SHINGLES VACCINES (#1)] Future Scheduled 1963 Hepatitis C screening [place] [facility] Test 00:00:00 (procedure) [code = 387996481] Future Scheduled [address] [facility] - Test 00:00:00 malignant neoplasm of Medica l Center colon (procedure) [code = 520505851] Encounters Start End Encounter Admission Attending Care Care Encounter Source Date/Time Date/Time Type Type Clinicians Facility Department ID 2020-08-26 2020-08-26 [facility] [id number] [place] 00:00:00 00:00:00 JOSE [address] 2020-07-29 2020-07-29 [place] [id number] [place] 00:00:00 00:00:00 JOSE [address] 2020-07-27 2020-07-27 [facility] [id number] [place] 00:00:00 00:00:00 JOSE [address] 2020-07-22 2020-07-22 Outpatient [facility] [id number] [place] 00:00:00 00:00:00 JOSE [address] Results Test Description Test Time Test Comments Results Result Sourc e Comments Airway Rafael Blas CRNA [place] on 4 07/29/2020 8:12 Yarsanism 08:11:47 AMAirway Date/Time: 07/29/2020 7:40 AM Location: [...] int erpret this result as normal/abnormal . Luis MarieeGlucose level, [id number] 06:42:51 Test Item Value Reference Range Interpretation Comments Glucose, syringe (test code = 113 mg/dL 65-99 H 2345-7) Lab Interpretation (test code = Abnormal 30575-9) Luis MethodistHemoglobin, [id number] 06:42:51 Test Item Value Reference Range Interpretation Comments Hemoglobin, syringe (test code = 10.7 g/dL 14-18 L 718-7) Lab Interpretation (test code = Abnormal 75827-8) Luis SilvestreistCOVID-19 qualitative [id number] 22:42:40 Test Item Value Reference Range Interpretation Comments Interpretation (test Negative results do code = 4290817) not preclude 2019-nCoV infection and should not be used as the sole basis for treatment or other patient management decisions. Negative results must be combined with clinical observations, patient history, and epidemiological information. COVID-19 qualitative Not-Detected Not-Detected PCR result (test code = 49464-6) COVID-19 qualitative See link below for C ase Number: PCR (test code = PDF Lab Report [id number]) Smith MethodistHemoglobin [id number] 20:50:44 Test Item Value Reference Range Interpretation Comments Hemoglobin A1C (test 5.3 % 4-5.6 HbA1c c utoffs for code = 36876-6) diagnosing d iabetes:4.0% - 5.6% = normal 5.7% - 6.4% = increase d risk for diabetes (prediabetes)9> =6.5% = mwbxtvsq1Oyhtl for glycemic contro l (ADA 2016)< 7.0% Ta rget for non chava lts with diabetes. More or less stringent targe ts may be appropriate for individual ari ents. <7.5% Target for Children and ad olescents with type 1 nasir betes. Luis MethodistECG Pre/Post [id number] 18:59:42 Test Item Value Reference Range Interpretation Comments Ventricular rate (test 82 code = 253) Atrial rate (test code 82 = 255) MO interval (test code 174 = 266) QRSD [...] of 08-JUL-2014 11:47,-No significant change was found- [place] MethodistGlucose [id number] 18:07:41 Test Item Value Reference Range Interpretation Comments Glucose (test code = 2345-7) 113 mg/dL 65-99 H Lab Interpretation (test code = Abnormal 10225-2) [place] MethodistPotassium [id number] 18:07:41 Test Item Value Reference Range Interpretation Comments Potassium (test code = 5.1 See_Comment H [Aut omated message] 1533-3) The system [employer] generated this result transmitted ref erence range: 3.5 - 5. 0 mEq/L. The refe rence range was not u sed to interpret this result as normal/abnor mal. Lab Interpretation (test Abnormal code = 89231-4) [place] [id number] 17:39:47 Test Item Value Reference Range Interpretation Comments HGB (test code = 718-7) 9.1 g/dL 14-18 L Lab Interpretation (test code = Abnormal 81684-3) [place] MethodistTissue [id number] 11:07:00 Test Item Value Reference Range Interpretation Comments Case Report (test code Surgical Pathology = 104) Report Case: [id number] Authorizing Provider: Bin Acevedo, Collected: 02/12/2020 09:33 AM Ordering Location: [facility] Received: 02/12/2020 10:58 AM PERIOPERATIVE SERVICES Pathologist: Carlos Betancourt MD Specimen: Carotid, Left, LEFT CAROTID PLAQUE DIAGNOSIS (test code = o0zlyDRyDFLsd2krMEOreFC 3220) uZzEwMzNcZnRuYmpcdWMxIH srfiNsBSksy9IeC6TqYiDoI FxhbnNpXGRlZmxhbmcxMDMz NOX2ajTmAZKnNVnmDURvDRu jBy8rtYLjlVaoVrFoVYIxx6 psazRMgyrfgIc3k5jkNZJiG lR1qCNsHWdjS8vsjxYkpVQd QEHyBAp1iS68NJHknV8qiXM sIDtccmVkMFxncmVlbjBcYm u0UAHpR6xaNJSqXEPnM0RaL J2uMHIeMse9CLC0UYJ9nIkv j4Y9tLMkuGHvlLsjBpYdXkY rTNSVp5XdSVf4lIbaU3FxXV ZoTqK8mHSmGKQkSAjxYAPfP XDrmvQ2eR16NOlueqY0eDVy m4Asm79hw044xG9btFTmATY 6GBNnNDDztCOwZNMsVRV1KI HelLRmX5f6MlDknDGrF7K6T wEurSQfN4A7EuJjwCZsE9K4 DePydAGcYRMnsHJjCo1knKP jiDOvaz8wsu26RAP6j1DdjX obCNK7YKA1FwRdUe0wgEAvA UJjNK2fLbHljPAgMYRcjs10 pTsxSYgraaIteD8sEoQxZRA wjALyHNZuDR7zqRXxCUKlnE 5ucmxjXHBnYnJkcmhlYWRcc IoxtvWsAq9wiYfaZZI1XXiq E6rllR5pToG7MBmgB9fnoI3 nZSk3MIociJP2TLXhlG4kNL 6ehlqkm7akZzXdRW9vwrpfj 5xrZnThVI1kpge4k0dvScDo TH9tohjcx9zyNlCjSKevGAK nndxdQQBek8QvovkbXDYfo7 JqG4SjjCzxY18uoMzcU75fX BJfcLrviL4nxRxcnO2lHtLs ZnMyMFxxbFxwbGFpblxmMFx mczIwXHBsYWluXGYxXGZzMj AgQVJURVJZLCBMRUZUIENBU x9BLPRgEOVXXJPCQXLGSLTL S69ALykyKWNgA1UTA6xWYTH cBJXIKZUEW2SELFSVHCrGYP DNNWFTDSaaOTT7b3vfcWSjN HNzdGUxODAwMFxhbnNpXGRl GisdkabtVNWsDYD7ekGoRDT uSYidPYFaDGsdWq9wcEXmxF ctHjVcBJNuj9acutPUlrjfq Oe9y0oeAZJzWnT7uCBuCUkh R2nhocEpsBZbMOVmXSf5oH6 4VJHazI4nwCSnYSmmpcJnLv H4ZFnqMAIjHzZ3SFHcdHVtY LWhP4dqQGLhKLvoUHAtJPij gTGuWSC4dJreb3K3lQUuqJT ttImnTyRpCcXhBvZEb2FnAW b7xJwhX7PrYXOvOwN0yTNbA MFlVJkzRXZhCAPsbdQ2fG18 JNuclaF7lBJll9Aua46wz52 5dN1qoGOhWIK6YTDdQBEhwJ MyNHBpNTX8SSSnrSYhF3hkP CGvYG5hshejHNmnGYdqMARl dET3ESQbyXZiP2MsTOGcMLr rZLThbnh8IoCnCm9tbCXfnA unPDjel9pyj3tciMOrDho8J JUwXgIsTuytYKjyl4Wqs3lb TAYrec1iEMQ4gEObiDwxc7Z 5eZXlHPIocNIxMHVzJG9tyW DzLGJbxB0dkgdiNJRyBpGsb apqMHLuvQfatmHvGk3sjHyc WGS5TKuxE6vjfV4cEoA6AGf yR7twbB8iDIh1ZJcvCUMcjM S5xgU5UZPwhGBdB1KsaP3hU NEaID4easo7m2myNJD9YCjs SSGvPiL4txV9YXLhqDOySYM osNmcAWaxk931NTE0LzAsPX Hlr4TqF3YjsHdaI08gdSkcE 43kAGOzoXkhwR8yoLcryB3v McLyPxBpHLuoqCxoHN4qSLF qZ5tmeJMuLLVrEXEzE6afAw BxiS6lhHqzXPfclzCcUFVfS dw4GMEzoFSiSFRfBkn7WKLy VXHtS64hiuzfQPE4xE4tr5p va5YjMZsyQWD6INHje61jQD rwnyF8LNgdTa9tCNIiVCm2Z IwlMUR6sZ== CPT Code(s) (test code z8grfCSqUSCauGIgFhGtWXD = 3353) qOWRjk0ijIIUgdGCxUnZkIk NcZnRuYmpcdWMxXGRlZmYwe 3cyt064hLIqp2eqZHXtJyC0 mKFmXOXesWXnD405o5rqm2k ovhGlxZZ0YSExONW6YGcsau KosvZ5CUybwOIsWzJ3USilu kTaJHifhiYexvXgMwb0LIUu R496EPO9rNdjg4mhKZT5OUO bENDuEiMeWp2odUUtR280FW UfCRCLIAUzuZs4HHAlajJkh tNerXWIs022N062e5loTXMa qwLbbXmVkekps0wgS826JOB hcGVydzEyMjQwXHBhcGVyaD B8IVMpGG7ixodxMvVbQP2pw lgvOjEtCB6qohw1FqQbSP6q cmdiNzIwXGhlYWRlcnkwXGZ cz5IglhrdBQ5xA9Nua8X1nA 9maXRcZGVmdGFiNzIwXGZvc b9hjHPfTLkep4DnPER3fnB6 dHRqkUPsMHFcEM92Ulkri0B lFyngUVH8OXTyqdQld5Whl2 srLaNpikRvC5mwP3RhWSOsO LWfLQZhRtGgnwHkz2Mjf6Sh kMCdjFi1l6goAZOcPZWatJd iv0ucTSE3AMDpE7F8fUFqm8 lqOSxrZPVakXM2kmvsESqhY EGmccH8zjozPNdxEIMrjNP2 keimZXfdAUKyYaC6psdmNUn tYGMtLXC9ZXpgp269MLU2WY xzYmtwYWdlXHBnbmNvbnRcc GduZGVjXHBsYWluXHBsYWlu XGYwXGZzMjRccWxccGxhaW5 rWyZwQaSpKFxtMO1iFLFjY0 bjwWRiJQIoKTLjB6rjZrXdw S8guMubUNjumiHtDJv4KnT9 BuS2UYBsYWprURU8 CLINICAL HISTORY (test o0tmqNCdRBAapIXvRyGgXWO code = 3356) hOIDpo6kjCHKeyREyWaWtSt NcZnRuYmpcdWMxXGRlZmYwe 6hyr288jXPty2zwXSFjFqV1 kHGaOLWzaLUdP454ZYFlADj ud1hlu4FcMAZhpWHyb8B4UX NObypdkSq2sQdgJ15nm4M9T qqsF3ywENIvVOJpZ2ArMR0d LASeJwt6LLB8RDR5GIGeYYF wZ3OdZB6kENLeyKMxANx0y1 jvkBwyPLGkAVC5h2nqRYnsk lDfDZ2jkd7zmJi8c6xqtlQi QRXeYBMmdILXUVJyF2AzxSt aRf8xkAn7cIfxJvugRIH5Pu d2YH5wbc28dcr2oMydHWKjd amkAqI2SAmzAGTzryadFAb6 MFxtYXJnbDcyMFxtYXJncjc yMFxtYXJndDcyMFxtYXJnYj rsSNirCRTuJAM5SVaag997M PX2JUwpk3qlz3tesTIyHeh2 DSGtShPdQcowURjtg5Dey1j fYHOorj6vXUI2qYKbtAblp4 J5jRWrFOJtlLSngyFcCUFbE aZ9OUqrEY5aae39PXIpFWJ2 rm5otXZxmEbjsoJozVWyKGq wG4QoNXXbo898KDUrW5QfUN Bgr0W8qlPtZeRuCNNyvOV7t zH9MWPzKRe8vGKpgvA2hmMa tOEiP5fouJ62TrWvtEQeN7G qfO07JsPpaVEkB1SbhM92Kz KywYWfS3IjnG30FqNiiZBnU MYyxJSaMu7kyBWswVEka1In cGNpJHuhO41ff804NYEwejB kC2awfTRgmipieCYchtphFF bxerX1GUr4qiDiawvvlNkbk GFpblxmMVxmczIwXGxhbmcx IYIdITadN6cdUfXbZOQzpAy pHCydx6RzXHToUBIsSoIpAV KbxBGyPBGfvRzyLAB2SZ3ll 9rrILsiMGG5 SPECIMEN SOURCE (test g2njyHQdYQKztHXxUzRcQHT code = 3377) bIQIlp4xnAFDebBUjGhQqNr NcZnRuYmpcdWMxXGRlZmYwe 8grn475zRWgl1alOCBnRlE7 kHOeVUFkkRVcY023ITBdADd iq0ucg6PoBVBfhBHuo8F8FY OImcenbXv9mDmrB18vh4A7F caeC0tfFVHwFMZiX7CbMN2k FMXkVou8WGZ6DKJ4YYAxAMQ bF9KbPL0mEXJifPEdRYp4x0 ekvSttURMaOYP1p0pxNWwlr gBlHZ8tqd7yeVe1p1pttrZg SVMfWEXgaGPEYMNiA7MvxSy iNi7dwKh2xSheZkkgWVC7Vq w8US0tzi37bbm6fYdtZQGof empFdI5PZttZABqiwovSDo6 MFxtYXJnbDcyMFxtYXJncjc yMFxtYXJndDcyMFxtYXJnYj qlFLwrZVNjDUW7NZnyt114X IX3LLtqe0mah5wzbURqFxw0 AGAuOxTaHqbxNUwbs0Yfx8l pVMMhnj6xFEY1oPJspNlnr0 T2xQEfYQApmUIpmiGeZCSoT hV7CCscFS1udl40UNHsTPF4 en1yeZAugPheobIftVHaVMr sE5YqRJVzc679ABAmE9HcUS Sls1R9ftWwEtXiQDCkaUA3q bS9HNTeCHc4jAExruN3vzGm xCUuT7wylI79IuGrrLDsB8U ivB74GfFgoEOeZ2TpgQ92Kp LrlUZrA2CzbO63JnLoxGHiX YJmoEMbWr4plFModLYae0Dx rNVdGHnxS40vw084ROLdsvM lM6dhiAFixxjpuTXudjaiYL pwxbX4IFv2nnRcvithpUgxn GFpblxmMVxmczIwXGxhbmcx VBXpUBvsS2efBvOqUJMpbRe qPJnpj1KcHFSuVADoHkRbQ1 Jda7PqHHmsQUZojJwcEOC7 GROSS DESCRIPTION w2jgyONcBMWtgEAqDtNoFIC (test code = 3366) qDBBjd7exMYUaxMRzAnDgOo NcZnRuYmpcdWMxXGRlZmYwe 7wxs468wPYrj0zfGZGbZhQ8 uUMmDUXlzLDcJ965e5ozl9p eflRzxMW2RYMpPSO8ZIwxbn YjmnN0SRkapHEeFrV3IVjou qLrPOiwwjXkkaWkJie9SDFs R458AKM3pAboz3kiOMB6BZE mDCBzVxZdPo8rgAMuU389UC TbEXVZXHCphCr5FZOzbiNml cXaePACw978Z193g1hgVDMy rtXelCcZrwdry7wiD405TMO hcGVydzEyMjQwXHBhcGVyaD V0XGSeVM0frwsrBsRtHU8iv okoLgMeWO6uwze0VkTzQX1t cmdiNzIwXGhlYWRlcnkwXGZ ud7XwpidhIT7mA4Cfl6R9rK 9maXRcZGVmdGFiNzIwXGZvc a1dgMWpTGnul3DtYRD7lkE5 bOClrKClAEZyQX55Cjcns6N rQveiOFZ1VBVlseXxh0Lne0 rtDhAreaVzG1jjG4GeTZWrF DEkQUExJfZqqwFwx3Hmq7Vo yAJtfBo8t1sxMPEpSCRfyGp mo7mmIDA2UNHgG5N5qOLhx1 zyAAefBBDllYG5fsgsLGwjK FUqwcQ4qhzcOBniZUNbkHO9 zdjdYFtmUDMkSxM6oztqMNf uRTJxSRB1FGrdd169ITD1ZG xzYmtwYWdlXHBnbmNvbnRcc GduZGVjXHBsYWluXHBsYWlu XGYwXGZzMjRccWxccGxhaW5 sSkXlEjRzDUfdVS2iJYTsO3 rbbKCuYOBrFMRkQ8cqTvVhq K5emUedGRhhygOfWFNiYSHc X1NxppSrZLWwYZLdKQpnUlW rBLHry8a2kSO7aCGdtTN0iI OxwMiiIoUcSM9dvUYoJC1kO PkdFFlgcvHox6CwZE83hXEk bjXngeUtIoJyey19qPHsXJg lZnQiIGlzIGEgcHJldmlvdX FbgJEwmqOrz9RnAQZtqfAkl 03sc0ReoMZbvS13XFTuVNT7 LTIhRPPoaQUmhwwgER45SAZ vSSaqNApuxse8wYKjywJtTQ 75HFEhCGmwYIOnMA1bzYTwU xYxQ7JjQ0etOY3ivRJjf9Ui cZNgkDojp0AbiPyyjsAjZFU vIHJldmVhbCBjYWxjaWZpY2 U4zY3itpKlHKOhrKPpeswef BCrzZ1yXC4cHCIjAXexTLHp sVBaavFmwm6lMGHvaRRim4I gqLB7yHQxBPFbX0Fzc32zLN CrJMXlsPQcjPB2KMVpbS6eU RNxSVOpzNhqr3dwNgGrJQTd lFJbCbeiNOXtk72qRHTtrds uYPKkN9onqWDyNNLKnrU9dt wgTUhTLCBQQSAoQVNDUClcc GFyXHBhclxwYXJ9 MICROSCOPIC p9uxhURxHTPhjRUnMaQwEOE DESCRIPTION (test code pDDOet5sgYWBpaZKdYlLlFx = 3371) NcZnRuYmpcdWMxXGRlZmYwe 1bub538lGFxe1yfRWIfHgP9 rPAaAVZohPBoS132r4ryl8n alqWsdBI9YQXuLCN9MUgujp EwmeS3VNhpgNYkGiE1KRuqn bCkTLxywxNlmfEeBnh7QFLa E921NLQ1kGvqa1lwMAW9GTV mNQKjJcKtVs7giGUuY234UT EgJCNSYOWitRi3EHVxyhVce fDbrLWFy668R011q2ywYWGk cqSaoFgGnsgzj3bvF022EWD hcGVydzEyMjQwXHBhcGVyaD N1XDBjON7tsxphDiIyMS2ga awfLxIhLQ2zlxp7LjTvKH4p cmdiNzIwXGhlYWRlcnkwXGZ ji3UsunbsJE4yA8Zra4J3tP 9maXRcZGVmdGFiNzIwXGZvc x2raOWcVQsnp4SoAVM4znJ2 hLWuuFFkHGObYT39Jozlv0P dGiotSMX5RKXalnLxv3Bmx5 mqUwYozeTvQ4ftS9CeNYWxQ BQhHYFmMyKkzhBlw6Uxb4Ut vMDkpTi3m8xxJFBmAFRjyWj by6phFUN3XKSbB2Y3jWLnn3 auAIgsLSTuaRJ0jpfzSHtqP PQtmoZ4pcwwVThjWIAeeXG3 zrscHRleRTWrXiN6owsfZPd cEKWyZUQ1PDtgr295XQJ7JD xzYmtwYWdlXHBnbmNvbnRcc GduZGVjXHBsYWluXHBsYWlu XGYwXGZzMjRccWxccGxhaW5 jQyOlKtKwDFamNI0tQDZbF1 lueHVyNWIuZXWtI2nxWzNfl A9nxPheJWgytmLzEFIsghSp uh0tQBmhRJS4 [facility]TISS[facility] [id number] 11:07:00Surgical Pathology Report Case: [id number] Authorizing Provider: Bin Acevedo, Collected: 02/12/2020 09:33 AM OrderingLocation: [facility] Received: 02/12/2020 10:58 AM PERIOPERATIVE SERVICES Pathologist: Carlos Betancourt MD Specimen: Carotid, Left, LEFT CAROTID PLAQUE ARTERY, LEFT CAROTID, ENDARTERECTOMY:CALCIFIC ATHEROSCLEROTIC PLAQUE Signing Pathologist Direct Phone Line: [phone] signed by Carlos Betancourt MD on 02/17/2020 at 11:07 [id number]; [id number] carotid stenosis Carotid, LeftA. Received fresh labeled with the patient's name, medical record number and "parotid, left" is a previously incised portion of yellow plaque measuring 1.6 cm in length and 0.8 cm in diameter. Specimen is serially sectioned to reveal calcifications measuring up to 0.2 cm in thickness. Bending Roll Hand sections are submitted in A1, following decalcification.SATISH [place], [place] ([facility])PerformedHepatitis B surface [id number] 14:11:00 Test Item Value Reference Range Interpretation Comments HBsAg Screen (test code Nonreactive Nonreactive = 5195-3) ТАТЬЯНА (test code = ТАТЬЯНА) Specimen is considered negative for HBsAg. Lab Interpretation (test Normal code = 98297-3) [facility] [id number] 14:11:00 Test Item Value Reference Range Interpretation Comments HEPATITIS B SURFACE ANTIGEN (2) Nonreactive Nonreactive (BEAKER) (test code = 2585) Specimen is considered negative for HBsAg.POC-Glucose [id number] 13:03:00 Test Item Value Reference Range Interpretation Comments POC-Glucose Meter (test 83 mg/dL 70-110 : TE STED AT [facility] code = 1538) [address] [facility], 770 30: Safety Companion/Techni justus ID = [id number] for JOIE DONG Lab Interpretation (test Normal code = 11565-5) [facility] [id number] 13:03:00 Test Item Value Reference Range Interpretation Comments POC-GLUCOSE METER 83 mg/dL 70-110 : TESTED A T [facility] 6720 (BEAKER) (test code = BERTND R [facility], 1538) [address]: Safety Companion/Techni justus ID = [id number] for ELGI N, JOIE POC ACTIVATED CLOTTING [id number] 06:30:00 Test Item Value Reference Range Interpretation Comments Activated Clotting Time 235 sec : 74 -137 seconds, (test code = 441) Baseline: TESTED AT [facility] [address] [facility], 770 30: Safety Companion/Techni justus ID = [id number] for DON FARLEY [facility][id number] 06:30:00 Test Item Value Reference Range Interpretation Comments ACTIVATED CLOTTING TIME 235 sec : 74 -137 seconds, (BEAKER) (test code = Baseli ne: TESTED AT 441) [facility] [address] CINDY NER [facility], 770 30: Safety Companion/Techni justus ID = [id number] for DON FARLEY Basic Metabolic [id number] 06:01:00 Test Item Value Reference Range Interpretation Comments Sodium (test code = 136 meq/L 696-358 1867-2) Potassium (test code = 5.2 meq/L 3.5-5.1 H 2823-3) Chloride (test code = 106 meq/L 98-107 2075-0) CO2 (test code = 20 meq/L 22-29 L 2028-9) BUN (test code = 30 mg/dL 7-21 H 3094-0) Creatinine (test code 8.83 mg/dL 0.57-1.25 H = 2160-0) Glucose (test code = 94 mg/dL 70-105 2345-7) Calcium (test code = 8.5 mg/dL 8.4-10.2 86606-1) EGFR (test code = 6 mL/min/1.73 sq m [facility] [address]-8) NOT ACCURATE CREATININE CLEARANCE IN PREDICTING GLOMERULAR FILTRATION RATE . ESTIMATED GFR I S NOT APPLICABLE FOR DIALYSIS PATIENTS. ТАТЬЯНА (test code = ТАТЬЯНА) Safety Companion ID - PIAYA L Lab Interpretation Abnormal (test code = 78987-3) [facility]OLIC [id number] 06:01:00 Test Item Value Reference Range Interpretation [...] S 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 Safety Companion ID - LIAM LPOCT-GLUCOSE [id number] 06:00:00 Test Item Value Reference Range Interpretation Comments POC-GLUCOSE METER 94 mg/dL 70-110 : TESTED A T [facility] 6720 (BEAKER) (test code = RADHA Chowdhury [facility], 1538) [address]: Safety Companion/Techni justus ID = [id number] for Aren Cheatham [id number] 05:49:00 Test Item Value Reference Range Interpretation Comments Magnesium (test code = 1.9 mg/dL 1.6-2.6 18535-2) ТАТЬЯНА (test code = ТАТЬЯНА) Safety Companion ID - LIAM L Lab Interpretation (test Normal code = 85629-0) [facility]MAGNESIUM2020-08-21 05:49:00 Test Item Value Reference Range Interpretation Comments MAGNESIUM (BEAKER) (test code = 1.9 mg/dL 1.6-2.6 627) Safety Companion ID - LIAM [id number] 05:31:00 Test Item Value Reference Range Interpretation Comments Cortisol, Total (test code 8.3 ug/dL 3.7-19.4 = 2755) ТАТЬЯНА (test code = ТАТЬЯНА) Safety Companion ID - CARLO Lab Interpretation (test Normal code = 63521-8) [facility]ORT[facility]OL2020-08-21 05:31:00 Test Item Value Reference Range Interpretation Comments CORTISOL, TOTAL (BEAKER) (test code 8.3 ug/dL 3.7-19.4 = 2755) Safety Companion ID - DARIOBC (Hemogram only)2020-02-13 03:06:00 Test Item Value Reference Range Interpretation Comments WBC (test code = 6690-2) 10.4 See_Comment [A utomated message] The system [employer] generated this result transmitted ref erence range: 3.5 - 10 .5 K/L. The refe rence range was not u sed to interpret this result as normal/abnor mal. RBC (test code = 789-8) 2.61 See_Comment L [Au tomated message] The system [employer] generated this result transmitted ref erence range: 4.63 - 6 .08 M/L. The refe rence range was not u sed to interpret this result as normal/abnor mal. MCHC (test code = 786-4) 31.1 See_Comment L [A utomated message] The system [employer] generated this result transmitted ref erence range: [...] See_Comment [Aut omated message] 777-3) The system [employer] generated this result transmitted ref erence range: 150 - 45 0 K/CU MM. The referen ce range was not u sed to interpret this result as normal/abnor mal. MPV (test code = 9.8 fL 9.4-12.4 98026-2) nRBC (test code = 413) 0 See_Comment [Aut omated message] The system [employer] generated this result transmitted ref erence range: 0 - 0 /1 00 WBC. The refere nce range was not u sed to interpret this result as normal/abnor mal. Lab Interpretation (test Abnormal code = 01107-9) [facility] (HEMOGRAM ONLY)2020-02-13 03:06:00 Test Item Value [...] (test code = 413) TSH/Free T4 If [id number] 02:45:00 Test Item Value Reference Range Interpretation Comments TSH (test code = 4.682 See_Comment [Automated 29594-0) message] The system which generated this result transmit zahraa reference range : 0.350 - 4.940 uIU/mL. The reference range was not used to interpret this result as normal/abnormal . ТАТЬЯНА (test code = ТАТЬЯНА) Safety Companion ID - LIMA Frey Lab Interpretation Normal (test code = 08428-6) [facility]TSH/FREE T4 IF [id number] 02:45:00 Test Item Value Reference Range Interpretation Comments THYROID STIMULATING HORMONE 4.682 uIU/mL 0.350-4.940 (BEAKER) (test code = 772) Safety Companion ID - LIAM CARRILLOOCT-GLUCOSE [id number] 00:32:00 Test Item Value Reference Range Interpretation Comments POC-GLUCOSE METER 82 mg/dL 70-110 : TESTED A T [facility] 6720 (BEAKER) (test code = RADHA [place], 1538) [address]: Safety Companion/Techni justus ID = [id number] for Delmy ano, Aren Blood gas, [id number] 18:26:00 Test Item Value Reference Range Interpretation Comments pH, Arterial (test code 7.31 7.35-7.45 L = 2744-1) pCO2, Arterial (test 45 See_Comment [Autom ated code = 2019-8) message] The system which generated this result [...] % Lab Interpretation Abnormal (test code = 90294-8) [facility] HospitalBLOOD GAS, [id number] 18:26:00 Test Item Value Reference Range Interpretation [...] code = 1819) 21.0 % Comprehensive metabolic [id number] 18:16:00 Test Item Value Reference Range Interpretation Comments Protein, Total (test 5.8 See_Comment L [Autom ated code = 2885-2) message] The system which generated this result transmit zahraa reference range : 6.0 - 8.3 gm/dL . The reference range was not u sed to interpret th is result as normal/abnormal . Albumin (test code = 3.3 g/dL 3.5-5 L 68490-5) Alkaline Phosphatase 50 U/L 40-150 (test code = 6768-6) Total Bilirubin (test 0.4 mg/dL 0.2-1.2 code = 1974-2) Sodium (test code = 139 meq/L 623-347 0153-2) Potassium (test code 4.8 meq/L 3.5-5.1 = 2823-3) Chloride (test code = 111 meq/L 98-107 H 2075-0) CO2 (test code = 19 meq/L 22-29 L 2028-9) BUN (test code = 25 mg/dL 7-21 H 3094-0) Creatinine (test code 7.10 mg/dL 0.57-1.25 H = 2160-0) Glucose (test code = 83 mg/dL 70-105 2345-7) Calcium (test code = 7.7 mg/dL 8.4-10.2 L 17626-0) AST (test code = 11 U/L 5-34 1920-8) ALT (test code = 10 U/L 6-55 1742-6) EGFR (test code = 8 mL/min/1.73 [place] [address]-0) NOT ACCURATE CREATININE CLEARANCE IN PREDICTING GLOMERULAR FILTRATION RATE . ESTIMATED GFR I S NOT APPLICABLE FOR DIALYSIS PATIEN ТАТЬЯНА (test code = ТАТЬЯНА) Safety Companion ID - NTP Lab Interpretation Abnormal (test code = 96867-2) [facility] HospitalCOMPREHENSIVE METABOLIC [id number] 18:16:00 Test Item Value Reference Range Interpretation [...] S 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 Safety Companion ID - [id number] 18:14:00 Test Item Value Reference Range Interpretation Comments MAGNESIUM (BEAKER) (test code = 1.8 mg/dL 1.6-2.6 627) Safety Companion ID - NTPCalcium, [id number] 18:02:00 Test Item Value Reference Range Interpretation Comments Calcium, Ion (test code = 1994-3) 1.14 mmol/L 1.12-1.27 pH, Blood (test code = 02814-9) 7.32 [facility], [id number] 18:02:00 Test Item Value Reference Range Interpretation Comments CALCIUM IONIZED (BEAKER) (test 1.14 mmol/L 1.12-1.27 code = 698) PH, BLOOD (BEAKER) (test code = 7.32 1810) [id number] 18:01:00 Test Item Value Reference Interpretation Comments Range Protime (test code = 15.7 See_Comment H [Autom ated 5902-2) message] The system which generated this result transmitted reference range : 11.9 - 14.2 seconds. The reference range was not used to interpret this result as normal/abnormal . INR (test code = 1.29 See_Comment [Automated 8331-6) message] The system which generated this result transmitted reference range : <=5.90. The reference range was not used to interpret this result as normal/abnormal . PTT (test code = 32.4 See_Comment [Automated 70892-9) message] The system which generated this result [...] valves. Lab Interpretation Abnormal (test code = 42010-3) [facility] HospitalPT/[id number] 18:01:00 Test Item Value Reference Range Interpretation [...] (BEAKER) (test code = 413) HGB/HCT (H&H)-Stat [id number] 10:37:00 Test Item Value Reference Range Interpretation Comments Hemoglobin (test code = 786-4) 9.2 g/dL 13-16.8 L Hematocrit (test code = 4544-3) 27.0 % 40-50 L Lab Interpretation (test code = Abnormal 08420-2) [facility] HospitalBLOOD GAS, [id number] 10:37:00 Test Item Value Reference Range Interpretation [...] 1819) 60.0 % HGB/HCT (H&H) - STAT [id number] 10:37:00 Test Item Value Reference Range Interpretation Comments HEMOGLOBIN (BEAKER) (test code = 9.2 g/dL 13.0-16.8 L 410) HEMATOCRIT (BEAKER) (test code = 27.0 % 40.0-50.0 L 411) Glucose-Stat [id number] 10:36:00 Test Item Value Reference Range Interpretation Comments Glucose (test code = 2345-7) 104 mg/dL 70-110 Lab Interpretation (test code = Normal 98815-4) [facility] [id number] 10:36:00 Test Item Value Reference Range Interpretation Comments Sodium (test code = 2951-2) 137 meq/L 136-145 Lab Interpretation (test code = Normal 76256-4) [facility] HospitalPotassium-Stat [id number] 10:36:00 Test Item Value Reference Range Interpretation Comments Potassium (test code = 2823-3) 4.0 meq/L 3.6-5.5 Lab Interpretation (test code = Normal 38028-2) [facility] HospitalGLUCOSE-STAT [id number] 10:36:00 Test Item Value Reference Range Interpretation Comments GLUCOSE RANDOM (BEAKER) (test code 104 mg/dL 70-110 = 652) SODIUM NA-STAT [id number] 10:36:00 Test Item Value Reference Range Interpretation Comments SODIUM (BEAKER) (test code = 381) 137 meq/L 136-145 POTASSIUM-STAT [id number] 10:36:00 Test Item Value Reference Range Interpretation Comments POTASSIUM (BEAKER) (test code = 4.0 meq/L 3.6-5.5 379) SARS-CoV2/RT-PCR (Asymptomatic ONLY)2020-02-12 08:04:00 Test Item Value Reference Range Interpretation Comments SARS-COV2/RT-PCR Negative Not Detected, (test code = Negative, See 92289-6) external report for linked test SARS-COV-2 [facility] PERFORMING LAB (test code = 73605-1) ТАТЬЯНА (test code = Negative results do [...] of the Act. Fact Sheet for Healthcare Providers:https://www.[employer]/Documents/Xper t%20Xpress%20SARS%20CoV- 2/Fact%20Sheets/3023802 %39ATNR-JBU-6%20HEALTHCA RE%20PROVIDERS%20FACT%20 SHEET.pdf Fact Sheet for Healthcare Patients:https://www.[employer]/Documents/Xpert %20Xpress%20SARS%20CoV-2 /Fact%20Sheets/3023801% 70YCPU-STA-4%20PATIENT%2 0FACT%20SHEET.pdf Performing Laboratory:[facility], [place] [address] [place], [place] [address]ARS-COV2/RT-PCR ([facility])2020-02-12 08:04:00 Test Item Value Reference Range Interpretation Comments SARS-COV2/RT-PCR (test code Negative Not Detected, Negative, = 2914624) See external report for linked test SARS-COV-2 PERFORMING LAB [facility] (test code = 5658949) Negative results do not preclude SARS-CoV-2 infection [...] of the Act.Fact Sheet for Healthcare Pro viders:https://www.[employer]/Documents/Xpert%20Xpress%20SARS%20CoV-2/Fact%20Sh eets/302-3802%34JXLP-BBR-2%20HEALTHCARE%20PROVIDERS%20FACT%20SHEET.pdfFact Sheet for Healthcare Patients:https://www.[employer]/Documents/Xpert%20Xpress%20SARS%20CoV-2/Fact%20Sheets/302-3801%20SARS-COV -2%20PATIENT%20FACT%20SHEET.pdfPerforming Laboratory:[facility], [place] [address]JLOVC METABOLIC [id number] 07:28:00 Test Item Value Reference Range Interpretation [...] S 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 Safety Companion ID - NTPCBC with platelet count + automated [id number] 07:21:00 Test Item Value Reference Range Interpretation Comments WBC (test code = 6690-2) 11.4 See_Comment H [A utomated message] The system [employer] generated this result transmitted ref erence range: 3.5 - 10 .5 K/L. The refe rence range was not u sed to interpret this result as normal/abnor mal. RBC (test code = 789-8) 3.40 See_Comment L [Au tomated message] The system [employer] generated this result transmitted ref erence range: 4.63 - 6 .08 M/L. The refe rence range was not u sed to interpret this result as normal/abnor mal. MCHC (test code = 786-4) 31.8 See_Comment L [A utomated message] The system [employer] generated this result transmitted ref erence range: [...] See_Comment [Aut omated message] 777-3) The system [employer] generated this result transmitted ref erence range: 150 - 45 0 K/CU MM. The referen ce range was not u sed to interpret this result as normal/abnor mal. MPV (test code = 10.0 fL 9.4-12.4 24682-6) nRBC (test code = 413) 0 See_Comment [Aut omated message] The system [employer] generated this result transmitted ref erence range: [...] H [Aut omated message] 670) The system [employer] generated this result transmitted ref erence range: 1.78 - 5 .38 K/L. The refe rence range was not u sed to interpret this result as normal/abnor mal. # Lymphs (test code = 2.42 See_Comment [Auto mated message] 414) The system [employer] generated this result transmitted ref erence range: 1.32 - 3 .57 K/L. The refe rence range was not u sed to interpret this result as normal/abnor mal. # Monos (test code = 0.91 See_Comment H [Autom ated message] 415) The system [employer] generated this result transmitted ref erence range: 0.30 - 0 .82 K/L. The refe rence range was not u sed to interpret this result as normal/abnor mal. # Eos (test code = 416) 0.48 See_Comment [Au tomated message] The system [employer] generated this result transmitted ref erence range: 0.04 - 0 .54 K/L. The refe rence range was not u sed to interpret this result as normal/abnor mal. # Baso (test code = 417) 0.02 See_Comment [A utomated message] The system [employer] generated this result transmitted ref erence range: 0.01 - 0 .08 K/L. The refe rence range was not u sed to interpret this result as normal/abnor mal. Immature 1 % 0-1 Granulocytes-Relative (test code = 2801) Lab Interpretation (test Abnormal code = 48588-7) [facility] W/PLT COUNT & AUTO [id number] 07:21:00 Test Item Value Reference Range Interpretation [...] (test code = 2801) Type and screen, [id number] 07:19:00 Test Item Value Reference Range Interpretation Comments ABO/RH AUTOMATED (BEAKER) (test O POSITIVE code = 2260) Ab Scrn (test code = 890-4) NEGATIVE [facility] ([facility]&H) - STAT [id number] 06:45:00 Test Item Value Reference Range Interpretation Comments HEMOGLOBIN (BEAKER) (test code = 11.3 g/dL 13.0-16.8 L 410) HEMATOCRIT (BEAKER) (test code = 33.0 % 40.0-50.0 L 411) GLUCOSE-STAT [id number] 06:42:00 Test Item Value Reference Range Interpretation Comments GLUCOSE RANDOM (BEAKER) (test code 103 mg/dL 70-110 = 652) POTASSIUM-STAT [id number] 06:42:00 Test Item Value Reference Range Interpretation Comments POTASSIUM (BEAKER) (test code = 4.8 meq/L 3.6-5.5 379) POCT-GLUCOSE [id number] 05:51:00 Test Item Value Reference Range Interpretation Comments POC-GLUCOSE METER 108 mg/dL 70-110 : TESTED A T [facility] 6720 (BEAKER) (test code CUAUHTEM[address] [facility], = 1538) [address]: Safety Companion/Techni justus ID = [id number] for JORD AN, LACRYSTAL Electrocardiogram, [id number] 12:45:46Interface, External Ris In - 02/03/2020 12:45 PM CDTVentricular Rate 72 BPMAtrial Rate 72 BPMP-R Interval 172 msQRS Duration 92 msQ-T Interval 396 msQTC Calculation(Bazett) 433 msP [place] 63 degreesR [place] 55 degreesT [place] 73 degreesNormal sinus rhythmNormal ECGNo previous ECGs availableConfirmed by MD Almaguer Roberto ([id number]) on 02/03/2020 12:45:38 [facility]
--- NOTE | 2020-08-27 12:08 | RAD REPORT ---
EXAM DESCRIPTION: RAD - Chest Single View - 08/27/2020 11:25 am CLINICAL HISTORY: AMS COMPARISON: December 2019 TECHNIQUE: AP portable chest image was obtained 08/27/2020 11:25 am . FINDINGS: Extensive fibrotic lung changes are present. Calcified pleural plaquing changes are presen t in each lung base. Emphysematous bullous changes are low pronounced in each upper lung field. Inter stitial pattern is slightly more pronounced than seen previously probably due to lower lung volumes. Heart and vasculature are normal. No measurable pleural effusion and no pneumothorax. No acute bony abnormality seen. No acute aortic findings suspected. IMPRESSION: Extensive COPD changes along with calcified pleural plaquing. Interstitial pattern is accentuated by lower lung volume. The low lung volume and severity of chronic disease could easily mask early interstitial edema or infiltrate.
[2020-08-27 12:12] LABS: Absolute Lymphocytes (CBC) 0.9 K/uL (0.7-4.9); Basophils % 0.2 % (0-1.3); Hematocrit 18.7 % (39.6-49.0); MPV 7.8 fL (7.6-11.3); RBC Red Blood Cell Count 1.93 M/uL (4.33-5.43)
--- NOTE | 2020-08-27 12:25 | RAD REPORT ---
EXAM DESCRIPTION: CT - Head Brain Wo Cont - 08/27/2020 12:15 pm CLINICAL HISTORY: CONFUSED, hypoxic, transient alteration of awareness, dialysis patient COMPARISON: CT HEAD BRAIN WWO CONTRAST dated 08/15/2010 TECHNIQUE: Axial 5 mm thick images of the head were obtained without IV contrast. All CT scans are performed using dose optimization technique as appropriate and may include automated exposure control or mA/KV adjustment according to patient size. FINDINGS: No intracranial hemorrhage, mass, cerebral edema or shift of mid-line structures. No acute cortical based infarction identified. Patient has mild to moderate atrophy that is mildly progressiv e over the 10 year interval since prior examination. Ventricles are in proportion to the amount of vo lume loss. Chronic ischemic changes are seen in the cerebral white matter. Basal ganglia and thalamus chronic ischemic change present as well as probable brainstem chronic ischemic change. Arterial tree calcifications are present. Mastoid air cells and visualized portions of the paranasal sinuses are clear. No acute bony findings. IMPRESSION: No intracranial hemorrhage, cerebral edema or acute cortical based infarction identified . Patient has atrophy and chronic ischemic changes that have progressed over the long interval since 20 11 comparison.
[2020-08-27] MEDS ORDERED: NA CHLORIDE 0.9% 250 ML ONE ×2 (12:26→15:41)
[2020-08-27 12:31] LABS: Protime INR 1.35
[2020-08-27 12:35] LABS: Albumin 2.9 g/dL (3.4-5.0); Bilirubin Direct 0.1 mg/dL (0-0.2); Bilirubin Total 0.5 mg/dL (0.2-1.0); Magnesium 2.1 mg/dL (1.8-2.4); Potassium 4.3 mmol/L (3.5-5.1); Protein, Total 7.3 g/dL (6.4-8.2); Troponin (Emerg Dept Use Only) 0.18 ng/mL (0.0-0.045)
[2020-08-27 13:29] LABS: Anisocytosis 1+; Basophilic Stippling 1+; Blood Morphology Comment NOTED (NOT SEEN); Hypochromasia 1+; Platelet Estimate ADEQ; White Blood Cell Scan OK (OK)
--- NOTE | 2020-08-27 19:13 | RAD REPORT ---
EXAM DESCRIPTION: CT - Abdomen Pelvis Wo Contrast - 08/27/2020 6:54 pm CLINICAL HISTORY: Abdominal pain COMPARISON: August 23, 2020 TECHNIQUE: Computed axial tomography of the abdomen and pelvis was obtained. IV and oral contrast we re not requested. All CT scans are performed using dose optimization technique as appropriate and may include automated exposure control or mA/KV adjustment according to patient size. FINDINGS: The evaluation of solid organs, vessels and bowel is limited secondary to the lack of con trast administration. 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 The left kidney has increased in size and become heterogeneous since the pr ior examination. Moderate right hydronephrosis and hydroureter persists. A Dorman catheter is present within the bladder. Increased density is present within the bladder. Liver, spleen, pancreas and adrenals demonstrate no significant abnormality. Diverticula stem from the colon without evidence of diverticulitis. Cholecystectomy IMPRESSION: Left kidney has increased in size and become heterogeneous since the prior exam. I suspe ct this is secondary to a hematoma. The exact size is difficult to ascertain. Increased density within the bladder may all represent blood or combination of blood and mass. The ri ght UVJ is obstructed resulting in moderate right hydronephrosis and hydroureter.
--- NOTE | 2020-08-27 20:13 | ER ---
Nurse's Notes [facility] Name: Robbie Kelly Age: 75 yrs Sex: Male : 1945 Arrival Date: 08/27/2020 Time: 10:45 Bed 17 Private MD: Diagnosis: Hematuria;Anemia;Urethral Stricture Presentation: 08/27 10:35 Chief complaint: EMS states: EMS reports pt was in dialysis this am and became hypoxia dm14 and had altered mental status. Coronavirus screen: Client denies travel out of the [place] in the last 14 days. Ebola Screen: No symptoms or risks identified at this time. 10:35 Method Of Arrival: EMS: [facility] dm14 10:35 Acuity: DADA 3 dm14 10:35 Initial Sepsis Screen: Does the patient meet any 2 criteria? No. Patient's initial dm14 sepsis screen is negative. Does the patient have a suspected source of infection? No. Patient's initial sepsis screen is negative. Risk Assessment: Do you want to hurt yourself or someone else? Patient reports no desire to harm self or others. Onset of symptoms was August 27, 2020. Triage Assessment: 11:24 General: Appears in no apparent distress. uncomfortable, Behavior is calm, cooperative, dm14 appropriate for age. Pain: Complains of pain in Patient complaining of discomfort in his bladder. States "I have to pee bad!" Pain does not radiate. Historical: - Allergies: 11:24 No Known Allergies; dm14 - Home Meds: 11:24 levothyroxine 75 mcg tab 1 tab once daily [Active]; renal vitamin [Active]; Vitamin C dm14 Oral [Active]; - PMHx: 11:24 COPD; Dialysis; M,W,F; Hypertension; POLYCYSTIC KIDNEY DISEASE; Hypothyroidism; RENAL dm14 FAILURE; Anemia; - Immunization history:: Adult Immunizations up to date. - Social history:: Smoking status: Patient denies any tobacco usage or history of. Screenin:35 Abuse screen: Denies threats or abuse. Denies injuries from another. Nutritional dm14 screening: No deficits noted. Tuberculosis screening: No symptoms or risk factors identified. Fall Risk Assessment: 10:35 General: Appears in no apparent distress. comfortable, Behavior is calm, cooperative, dm14 appropriate for age. Pain: Complains of pain in Pt complaining of pain in the suprapubic area Pain does not radiate. 12:25 Reassessment: Bolus of 250 ml NS given. dm14 13:30 Reassessment: Bladder scanned for 25ml of mostly sanguinous urine and catheter dm14 irrigated with 60ml NS x2. with little difficulty. But did notice bypassing with the second irrigation. Dr Hadley made aware. 15:00 Reassessment: pt consented for blood transfusion by , remains at bedside. iw 15:35 Reassessment: blood verified with LEXII Bernard, transfusion initiated at 1535 to RAC at iw 50 ml / hr. 18:50 Reassessment: No changes from previously documented assessment. Pt slept soundly dm14 throughout the PRBC transfusion. 19:57 Reassessment: received patient on the sitting up on the bed, alert and oriented, with rv IV access on the right AC. second unit of blood started with Je SHULTZ at bedside. order and consent checked. General: Appears comfortable, Behavior is calm, cooperative. Pain: Denies pain. Neuro: Level of Consciousness is awake, alert, obeys commands, Oriented to person, place, time, situation. Cardiovascular: Patient's skin is warm and dry. Rhythm is sinus tachycardia with unifocal PVCs. Respiratory: Airway is patent Respiratory effort is even, unlabored, Breath sounds are clear bilaterally. Respiratory: Denies shortness of breath labored breathing, air hunger. Derm: Skin is intact. 20:39 Reassessment: REPORT GIVEN TO CHRISTINE SHULTZ OF [facility]. rv Vital Signs: 10:35 BP 117 / 76; Pulse 105; Resp 18; Pulse Ox 96% ; dm14 10:35 BP 117 / 76; Pulse 105; Resp 18; Pulse Ox 96% ; dm14 11:15 BP 145 / 63; Pulse 108; Resp 20; Pulse Ox 97% ; dm14 12:30 BP 122 / 59; Pulse 101; Resp 18; Pulse Ox 99% ; dm14 13:30 BP 93 / 59; Pulse 91; Resp 18; Pulse Ox 100% ; dm14 14:30 BP 108 / 53; Pulse 88; Resp 18; Pulse Ox 100% ; dm14 15:30 BP 111 / 52; Pulse 89; Resp 18; Pulse Ox 100% ; dm14 16:30 BP 133 / 72; Pulse 87; Resp 18; Pulse Ox 94% ; dm14 17:30 BP 137 / 64; Pulse 88; Resp 18; Pulse Ox 98% ; dm14 18:30 BP 126 / 54; Pulse 99; Resp 18; Pulse Ox 89% ; dm14 19:30 BP 114 / 38; Pulse 109; Resp 20; Temp 98.7; Pulse Ox 84% on R/A; rv 19:40 BP 119 / 55; Pulse 103; Resp 21; Pulse Ox 94% on 2 lpm NC; rv 20:00 BP 113 / 38; Pulse 104; Resp 18; Pulse Ox 99% on 2 lpm NC; rv 20:30 BP 102 / 43; Pulse 98; Resp 13; Pulse Ox 96% on 2 lpm NC; rv ED Course: 10:35 Arm band placed on right wrist. dm14 10:35 Patient has correct armband on for positive identification. Bed in low position. Call dm14 light in reach. Side rails up X2. 10:45 Patient arrived in ED. iw 10:55 Marino Hadley MD is Attending Physician. kdr 10:59 Joana Torrez, LEXII is Primary Nurse. dm14 11:03 Triage completed. dm14 11:[address] John Montanez the patients urologist at [phone]/ His staff says the doctor eb is in surgery and gave his cell number for Dr. Hadley to call. 11:23 X-ray completed. Portable x-ray completed in exam room. Patient tolerated procedure mh1 well. 11:45 Inserted saline lock: 20 gauge in right antecubital area, using aseptic technique. dm14 11:55 Radiology exam delayed due to pt needing to go to bathroom and nurse getting iv and sj labs. 12:09 RAD In Process Unspecified. EDMS 12:14 CT Head Brain wo Cont In Process Unspecified. EDMS 14:40 initiated a transfer with Ijeoma from the [facility] at [phone]/. eb 14:44 per Ijeoma if we could try to initiate in a couple of hours/ they have holds in the ER eb and once they get those patients up they will re evaluate their bed situation. 15:10 Bb Add On Sent. dm14 17:04 attempted to initiate a transfer with Ijeoma from the [facility]/ they eb are still at capacity and are unable to take him at this time. 18:[address] [facility] with Angelique Paredes. Informed me that tt3 there was a bed available. Dr. Dietz will accept the pt. Covid result pending. 19:07 Attending Physician role handed off by Marino Hadley MD mh7 19:07 Johnny Vilchis MD is Attending Physician. [facility] 19:56 Report received from Brianna SHULTZ. rv 19:57 No provider procedures requiring assistance completed. rv 20:05 Angelique Paredes gave admin approval. The accepting physician is Dr. Dietz. Nurse to call report tt3 through the transfer center at . Face sheet faxed to per Angelique's request. The pt is going to [facility] Bed [id number]. 21:06 IV is patent, with fluids infusing freely, Patient transferred, IV remains in place. rv Administered Medications: No medications were administered Outcome: 20:12 ER care complete, transfer ordered by . [facility] 21:06 Transferred by ground EMS Note: [facility] rv 21:06 Condition: improved 21:06 Instructed on the need for transfer. 21:06 Patient left the ED. rv Signatures: Dispatcher [employer] EDMS Marino Hadley MD MD [facility] Cayla Denton 1 Sonja Muhammad Irene, LEXII RN Oanh Sanchez Ronaldo, RN RN Johnny Vilchis MD MD [facility] Joana Torrez, RN RN dm14 Corrections: (The following items were deleted from the chart) 16:20 15:35 Reassessment: blood verified with LEXII Bernard, transfusion initiated at 1535 to [facility]
--- NOTE | 2020-08-27 20:13 | EDPHYS ---
Physician Documentation [facility] Name: Robbie Kelly Age: 75 yrs Sex: Male : 1945 Arrival Date: 08/27/2020 Time: 10:45 Bed 17 Private MD: ED Physician Johnny Vilchis HPI: 08/27 11:30 This 75 yrs old Male presents to ER via EMS with complaints of Altered Mental kdr Status. 11:30 The patient was brought form dialysis for AMS and hypotension. Per the , he has kdr intermittent baseline confusion and seems to be at baseline. He also is noted to be hypotensive (SBP 70's). Onset: The symptoms/episode began/occurred just prior to arrival. Severity of symptoms: At their worst the symptoms were mild just prior to arrival, in the emergency department the symptoms have improved. It is unknown whether or not the patient has had similar symptoms in the past, Confusion, yes, hypotension ?. The patient has been recently seen by a physician: Was seen by Dr. Montanez/urology in [place] yesterday. I have spoke with Dr. Montanez. If we need to transfer the patient he will consult if admitted to [facility]. Historical: - Allergies: 11:24 No Known Allergies; dm14 - Home Meds: 11:24 levothyroxine 75 mcg tab 1 tab once daily [Active]; renal vitamin [Active]; Vitamin C dm14 Oral [Active]; - PMHx: 11:24 COPD; Dialysis; M,W,F; Hypertension; POLYCYSTIC KIDNEY DISEASE; Hypothyroidism; RENAL dm14 FAILURE; Anemia; - Immunization history:: Adult Immunizations up to date. - Social history:: Smoking status: Patient denies any tobacco usage or history of. ROS: 11:30 Constitutional: Negative for fever, chills, and weight loss, Eyes: Negative for injury, kdr pain, redness, and discharge, Neck: Negative for injury, pain, and swelling, Cardiovascular: Negative for chest pain, palpitations, and edema, Respiratory: Negative for shortness of breath, cough, wheezing, and pleuritic chest pain, Abdomen/GI: Negative for abdominal pain, nausea, vomiting, diarrhea, and constipation, Back: Negative for injury and pain, MS/Extremity: Negative for injury and deformity, Psych: Negative for depression, anxiety, suicide ideation, homicidal ideation, and hallucinations, Allergy/Immunology: Negative for hives, rash, and allergies, Endocrine: Negative for neck swelling, polydipsia, polyuria, polyphagia, and marked weight changes, Hematologic/Lymphatic: Negative for swollen nodes, abnormal bleeding, and unusual bruising. 11:30 : Positive for urinary symptoms, hematuria. 11:30 Skin: Positive for ecchymosis, jaundice, diffusely. Exam: 11:30 Constitutional: This is a well developed, well nourished patient who is awake, alert, kdr and in mild distress. Head/Face: Normocephalic, atraumatic. Neck: Trachea midline, no thyromegaly or masses palpated, and no cervical lymphadenopathy. Supple, full range of motion without nuchal rigidity, or vertebral point tenderness. No Meningismus. 12:57 ECG was reviewed by the Attending Physician. kdr Vital Signs: 10:35 BP 117 / 76; Pulse 105; Resp 18; Pulse Ox 96% ; dm14 10:35 BP 117 / 76; Pulse 105; Resp 18; Pulse Ox 96% ; dm14 11:15 BP 145 / 63; Pulse 108; Resp 20; Pulse Ox 97% ; dm14 12:30 BP 122 / 59; Pulse 101; Resp 18; Pulse Ox 99% ; dm14 13:30 BP 93 / 59; Pulse 91; Resp 18; Pulse Ox 100% ; dm14 14:30 BP 108 / 53; Pulse 88; Resp 18; Pulse Ox 100% ; dm14 15:30 BP 111 / 52; Pulse 89; Resp 18; Pulse Ox 100% ; dm14 16:30 BP 133 / 72; Pulse 87; Resp 18; Pulse Ox 94% ; dm14 17:30 BP 137 / 64; Pulse 88; Resp 18; Pulse Ox 98% ; dm14 18:30 BP 126 / 54; Pulse 99; Resp 18; Pulse Ox 89% ; dm14 19:30 BP 114 / 38; Pulse 109; Resp 20; Temp 98.7; Pulse Ox 84% on R/A; rv 19:40 BP 119 / 55; Pulse 103; Resp 21; Pulse Ox 94% on 2 lpm NC; rv 20:00 BP 113 / 38; Pulse 104; Resp 18; Pulse Ox 99% on 2 lpm NC; rv 20:30 BP 102 / 43; Pulse 98; Resp 13; Pulse Ox 96% on 2 lpm NC; rv MDM: 18:34 Data reviewed: vital signs, nurses notes. Counseling: I had a detailed discussion with [facility] the patient and/or guardian regarding: the historical points, exam findings, and any diagnostic results supporting the discharge/admit diagnosis, lab results. 20:09 Differential Diagnosis altered mental status, sepsis, flu. Data interpreted: Pulse 7 oximetry: on room air is 94 %. Interpretation: acceptable. 20:12 Patient medically screened. [facility] 08/27 10:58 Order name: Basic Metabolic Panel; Complete Time: 15:58 [facility] 08/27 10:58 Order name: CBC with Diff; Complete Time: 15:58 [facility] 08/27 10:58 Order name: LFT's; Complete Time: 15:58 [facility] 08/27 10:58 Order name: Magnesium; Complete Time: 15:58 [facility] 08/27 10:58 Order name: NT PRO-BNP; Complete Time: 15:58 [facility] 08/27 10:58 Order name: PT-INR; Complete Time: 15:58 [facility] 08/27 10:58 Order name: Troponin (emerg Dept Use Only); Complete Time: 15:58 [facility] 08/27 12:25 Order name: PRBC [facility] 08/27 12:26 Order name: ABO/RH typing [facility] 08/27 12:26 Order name: Antibody Screen [facility] 08/27 12:30 Order name: Bb Add On eb 08/27 13:29 Order name: CBC Smear Scan; Complete Time: 15:58 [facility] 08/27 10:58 Order name: XRAY Chest (1 view) [facility] 08/27 10:58 Order name: EKG; Complete Time: 10:59 [facility] 08/27 10:58 Order name: Cardiac monitoring; Complete Time: 12:13 [facility] 08/27 10:58 Order name: EKG - Nurse/Tech; Complete Time: 12:58 [facility] 08/27 10:58 Order name: IV Saline Lock; Complete Time: 12:13 [facility] 08/27 10:58 Order name: Labs collected and sent; Complete Time: 12:13 [facility] 08/27 10:58 Order name: O2 Per Protocol; Complete Time: 12:13 [facility] 08/27 10:58 Order name: O2 Sat Monitoring; Complete Time: 12:14 [facility] 08/27 11:43 Order name: CT Head Brain wo Cont; Complete Time: 12:30 kdr 08/27 12:09 Order name: RAD EDMS 08/27 18:23 Order name: CT Abd/Pelvis - Without Contrast kdr 08/27 18:53 Order name: COVID-19 : Document "Date of Symptom Onset" if Symptomatic. tt3 08/27 18:55 Order name: CORONAVIRUS EDMS 08/27 19:13 Order name: CT; Complete Time: 19:36 EDMS 08/27 19:39 Order name: SARS-COV-2 RT PCR; Complete Time: 19:40 EDMS EC:57 Rate is 97 beats/min. Rhythm is regular, Sinus Rhythm with No ectopy. QRS [place] is kdr Normal. SC interval is normal. QRS interval is normal. QT interval is normal. Clinical impression: NSR w/ Non-specific ST/T Changes. Administered Medications: No medications were administered Disposition: 08/27/20 20:[address] [facility]. Diagnosis are Hematuria, Anemia, Urethral Stricture. - Reason for transfer: Higher level of care. - Accepting physician is Dr. Mindy Gallegos. - Condition is Stable. - Problem is an ongoing problem. - Symptoms have improved. Signatures: Dispatcher [employer] EDNJ Marino Hadley MD MD kdr Obinna Mcnulty, MEDIA RECONCILIATION SPECIALIST-C MEDIA RECONCILIATION SPECIALIST-Cla1 Jaison Veronica, RN RN rv Johnny Vilchis MD MD mh7 Joana Torrez RN RN dm14 Corrections: (The following items were deleted from the chart) 21:06 20:12 08/27/2020 20:[address] [facility]. rv Diagnosis is Hematuria; Anemia; Urethral Stricture. Reason for transfer: Higher level of care. Accepting physician is Dr. Mindy Gallegos. Condition is Stable. Problem is an ongoing problem. Symptoms have improved. mh7
[2020-08-27 23:53] VITALS: TEMP 98.7
[2020-08-27 23:58] VITALS: BP 102/43; O2SAT 96
== END 2020-08-27 21:06 | disposition short-term general hospital (02) ==
LOC: ER 10:35
PROC: 30233N1 Transfusion of Nonautologous Red Blood Cells into Peripheral Vein, Percutaneous Approach (ICD-10-PCS; principal; 2020-08-27)
DX: D64.9 Anemia, unspecified (principal); R31.9 Hematuria, unspecified; N35.919 Unspecified urethral stricture, male, unspecified site; I12.0 Hypertensive chronic kidney disease with stage 5 chronic kidney disease or end stage renal disease; N18.6 End stage renal disease; E03.9 Hypothyroidism, unspecified; Z99.2 Dependence on renal dialysis; Z20.822 Contact with and (suspected) exposure to COVID-19
CPT/HCPCS: 93005; 85025; 80048; 36415; 86900; 83735; 86850; 85610; 86901; 80076; 84484; 83880; 70450; 74176; 71045; 99285; 36430; U0003; P9016 ×2; J7050 ×2

== ENCOUNTER 2020-09-27 10:53 | Inpatient (IN) | payer OTHER ==
--- OUTSIDE RECORDS SUMMARY | 2020-09-27 11:00 | XMS REPORT | Continuity of Care Document ---
:1945 Author Organization [facility] t Address [address] [place] [address] Care Team Providers Name Role Phone Tee Gil Primary Care Physician Unavailable Ramesh Huang MD Attending Clinician Alyssa Farris MD Attending Clinician Jasvir Dixon MD Attending Clinician Thee Burton CRNA Attending Clinician ALYSSA FARRIS Attending Clinician Unavailable KAYDEN Attending Clinician Unavailable Tonny Acevedo MD Attending Clinician TONNY ACEVEDO Attending Clinician Unavailable Katiana WOOD Attending Clinician Mariusz Caputo MD Attending Clinician ALYSSA FARRIS Admitting Clinician Unavailable KAYDEN Admitting Clinician Unavailable TONNY ACEVEDO Admitting Clinician Unavailable Payers Payer Name Policy Type Policy Effective Date Expiration Date Sour ce Number MEDICAREMEDICARE A [id number] CHASITY Rueda [id number] 2009- 00:00:00 - [facility] MCR [id number] 2016 CHASITY Liu SUPPLEMENT/INDIVIDUALB 00:00:00 - [facility] [id number] 2016- PresentMedigap Problems Condition Condition Condition Status Onset Resolution Last Treating Co mments Source Name Details Category Date Date Treatment Clinician Date Hematuria Hematuria Disease Active CHASITY Cadena 08-28 [facility]: Medical [place] Altered Altered Disease Active [facility] mental mental [address] [facility] - status status 00:00: Medical Center s/p L CEA s/p L CEA Disease Active CHASITY Cadena 02/11 ( 02/11 ( 02-11 Shanna jannie Acevedo) 00:00: Medica l 00 Center Pre-transp Pre-transp Disease Active Last [facility]: t & Plan: Medical for for 00 Due to Center chronic chronic his age, kidney kidney history disease disease of COPD, and AAA repair he is not an acceptabl e candidate for kidney transplan t. He understoo d and agreed with this decision. HTN HTN Disease Active Last [facility] St (hypertens (hypertens 12-[address] [facility] - ion) ion) 00:00: t & Plan: Medical 00 Continue Center managemen t with nephrolog y as prescribe d. Aortic Aortic Disease Active [facility] aneurysm aneurysm 12-19 Assessmen [facility] - 00:00: t & Plan: Medical 00 Repaired Center with a stent in 2012. Polycystic Polycystic Disease Active C HI [facility] kidney kidney 12-19 [facility] - 00:00: Medical 00 Center COPD COPD Disease Active [facility] St (chronic (chronic 12-19 Assessmen [facility] - obstructiv obstructiv 00:00: t & Plan: Medical e e 00 Controlle Center pulmonary pulmonary d with disease) disease) inhalers. No history of smoking. Asthma Asthma Disease Active [facility] ESRD (end ESRD (end Disease Active [facility] stage stage [facility] renal renal Medical disease) disease) Center Dialysis Dialysis Disease Active [facility] S/P S/P Disease Active [facility] carotid carotid 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 Family History Family Member Diagnosis Comments Start Date Stop Date Source Natural brother Cancer [facility] Natural daughter Polycystic kidney C [facility] disease [facility] Natural father Heart disease [facility] Natural father Heart failure [facility] Natural father Hypertension [facility] Natural mother Cancer [facility] Natural mother Hypertension [facility] Natural sister COPD [facility] Social History Social Habit Start Date Stop Date Quantity Comments Source History of Current smoker [facility] tobacco use Medical [facility] r Sex Assigned At [facility] Tobacco use and 2020-09-13 2020-09-13 Never used [facility] - exposure 00:00:00 00:00:00 [facility] Alcohol intake 2020-09-13 2020-09-13 Current [facility] 00:00:00 00:00:00 non-drinker of Medical nter alcohol (finding) Smoking Status Start Date Stop Date Source Former smoker 2020-09-13 00:00:00 2020-09-13 00:00:00 [facility] Medications Ordered Filled Start Stop Current Ordering Indication Dosage Frequency Signature Comments Components Source Medication Medication Date Date Medication? Clinician (SIG) Name Name metoprolol No 50mg Q.5D Take [address] tartrate 09-13 by mouth 2 Luke s - (LOPRESSOR) 16:12: 00:00 (two) Medi rinku 50 MG 09 :00 times Center tablet daily. acetaminoph 2020- No 650mg Place [address] en 09-13- mg [facility] - (TYLENOL) 16:11: 00:00 rectally Med ical 650 MG 56 :00 every 4 Center suppository (four) hours as needed for Fever. diphenhydrA Yes 25mg Take [address] MINE 3-22 by mouth [facility] - (BENADRYL) 16:11: every Medica l 25 mg 54 night as Center tablet needed for Sleep. folic Yes 1{tbl} QD Take [address] acid-multiv 3-22 tablet by [facility] - itamins 16:11: mouth Medical (NEPHRO-VIT 54 daily. Center E) 0.8 mg Tab tablet albuterol Yes 1{puff} Inhale [address] HFA 3-22 puff by [facility] - (VENTOLIN 16:11: mouth via Med ical HFA) 90 54 inhaler Center mcg/actuati every 6 on inhaler (six) hours as needed for Wheezing. levothyroxi Yes 88ug Take [address] ne 3-22 mcg by [facility] - (SYNTHROID, 16:11: mouth Medic al LEVOTHROID) 54 Every Center 88 MCG morning on tablet an empty stomach. tamsulosin 2020- Yes .4mg QD Take [address] (FLOMAX) 09-03 capsule [facility] - 0.4 mg Cap 00:00: 23:59 (0.4 mg Med ical 24 hr 00 :00 total) by Center capsule mouth daily for 30 days. finasteride 2020- Yes 5mg QD Take [address] (PROSCAR) 5 09-03 tablet (5 Shanna kes - mg tablet 00:00: 23:59 mg total) Me dical 00 :00 by mouth Center daily for 30 days. oxybutynin 2020- Yes 5mg [id number] Take [address] (DITROPAN) 09-02 [id number] tablet (5 [facility] - 5 MG tablet 00:00: 23:59 3D mg total) Medical 00 :00 by mouth 3 Center (three) times daily for 30 days. aspirin 81 2020- Yes 81mg QD Take [address] MG EC 09-02 tablet (81 [facility] - tablet 00:00: 23:59 mg total) Medic al 00 :00 by mouth Center daily for 30 days. levoFLOXaci 2020- No 250mg QD Take [address] n 09-02 tablet [facility] - (LEVAQUIN) 00:00: 23:59 (250 mg Med ical 250 MG 00 :00 total) by Center tablet mouth daily for 5 days. atorvastati No 40mg QD Take [address] n (LIPITOR) 02-12 tablet (40 L ukes - 40 MG 00:00: 23:59 mg total) Medica l tablet 00 :00 by mouth Center nightly. clopidogreL 75mg QD Take [address] (PLAVIX) 75 02-12 tablet (75 L ukes - mg tablet 00:00: 00:00 mg total) Me dical 00 :00 by mouth Center daily. multivitami No 1{tbl} QD Take [address] n with 02-02 tablet by [facility] - minerals 10:30: 00:00 mouth Medical tablet 11 :00 daily. [place] metoprolol No 50mg Q.5D Take [address] (TOPROL-XL) 02-02 by mouth 2 L ukes - 50 MG 24 hr 10:30: 00:00 (two) Medi rinku tablet 08 :00 times Center daily. levothyroxi No 75ug Take [address] ne 02-02 mcg by [facility] - (SYNTHROID, 10:28: 00:00 mouth Medi rinku LEVOTHROID) 56 :00 Every Center 75 MCG morning on tablet an empty stomach. Vital Signs Vital Name Observation Time Observation Value Comments Source Systolic blood 2020-09-13 16:11:00 139 mm[Hg] [facility] Diastolic blood 2020-09-13 16:11:00 73 mm[Hg] [facility] S t [facility] Heart rate 2020-09-13 16:11:00 108 /min [facility] Body temperature 2020-09-13 16:11:00 36.78 Jailyn [facility] Body weight 2020-09-13 16:11:00 79.425 kg [facility] BMI 2020-09-13 16:11:00 25.12 kg/m2 [facility] Respiratory rate 2020-09-02 12:00:00 18 /min [facility] Oxygen saturation in 2020-09-02 12:00:00 97 /min [facility] - Arterial blood by Medical Ce nter Pulse oximetry Body height 2020-02-26 10:20:00 177.8 cm [facility] Procedures Procedure Date / Time Performed Performing Clinician [facility] e [facility] ABDOMEN/PELVIS WITH & 2020-09-21 13:12:00 Sebas Huang - WITHOUT IV CONTRAST [facility] er MR ABDOMEN WITHOUT IV 2020-09-02 11:20:00 Reina, Sebas [facility] - CONTRAST [facility] MR PELVIS WITHOUT IV 2020-09-02 11:20:00 Reina, Sebas [facility]ASPAR S [facility] - CONTRAST [facility] TISSUE EXAM 2020-08-31 12:53:00 Sebas Huang [facility] FL FLUORO NON-SPECIFIC UP 2020-08-31 12:50:[address] - TO 1 HOUR [facility] CYSTOSCOPY,INSERTION 2020-08-31 11:42:00 Sebas Huang [facility] - URETERAL STENTS [facility] CBC W/PLT COUNT & AUTO 2020-08-31 04:50:00 [facility]PRE[facility] METABOLIC 2020-08-31 04:50:[address] [facility] MAGNESIUM 2020-08-31 04:50:00 Pedro Farris [facility] NM MYOCARDIAL PERFUSION 2020-08-30 16:44:00 Sebas Huang [facility] - SPECT, PHARM(LEXISCAN) [facility] enter HEMODIALYSIS INPATIENT 2020-08-30 11:55:05 Jlius Parker [facility] CBC W/PLT COUNT & AUTO 2020-08-30 05:14:00 Arianna Whitt [facility] LIPID PANEL 2020-08-30 05:14:00 Ty, [facility] 2D ECHO W/ DOPPLER 2020-08-29 13:22:39 Ty, [facility] (CW/PW/COLOR) [facility] T4, FREE 2020-08-29 12:22:00 Ty, [facility] TSH 2020-08-29 12:22:00 Ty, [facility] FERRITIN 2020-08-29 12:22:00 Ty, [facility] VITAMIN B12 2020-08-29 12:22:00 Ty, [facility] PSA 2020-08-29 12:22:00 Ty, [facility] US RENAL COMPLETE 2020-08-29 11:15:[address] [facility] CT BRAIN WITHOUT IV 2020-08-29 05:02:[address] [facility] TROPONIN I 2020-08-29 04:21:00 Owen Jhaveri [facility] BASIC METABOLIC PANEL (7) 2020-08-29 04:21:00 Arianna Whitt [facility] CBC W/PLT COUNT & AUTO 2020-08-29 04:21:00 Jose Eduardo [facility] RETICULOCYTE COUNT 2020-08-29 04:21:00 Ty, [facility] OCCULT BLOOD, STOOL 2020-08-29 02:52:00 Owen Jhaveri CH, I [facility] TROPONIN I 2020-08-28 16:08:00 Owen Jhaveri [facility] HEPATITIS B SURFACE 2020-08-28 16:06:00 Keith [facility] ANTIGEN [facility] HEPATITIS B SURFACE 2020-08-28 15:26:00 Keith [facility] ANTIBODY [facility] HEMODIALYSIS INPATIENT 2020-08-28 11:36:[address] [facility] TROPONIN I 2020-08-28 05:56:00 [facility] W/[facility]T [facility] & AUTO 2020-08-28 05:56:00 BrentonPedro pickett [facility] BASIC METABOLIC PANEL (7) 2020-08-28 05:56:00 Pedro [facility] HEMOGLOBIN A1C 2020-08-28 01:19:00 Emilio [facility] URINE CULTURE 2020-08-28 01:05:00 Emilio [facility] URINALYSIS W/ REFLEX 2020-08-28 01:05:00 Owen Jhaveri [facility] URINE CULTURE [facility] CBC W/PLT COUNT & AUTO 2020-08-28 01:05:00 Emilio [facility] COMPREHENSIVE METABOLIC 2020-08-28 01:05:[address] [facility] MAGNESIUM 2020-08-28 01:05:00 Owen Jhaveri [facility] PHOSPHORUS 2020-08-28 01:05:00 Emilio [facility] PROTHROMBIN TIME/INR 2020-08-28 01:05:00 Owen Jhaveri [facility] HEPATIC FUNCTION PANEL 2020-08-28 01:05:00 Emilio [facility] LIPID PANEL 2020-08-28 01:05:00 Owen Jhaveri [facility] REPORT OF PROCEDURE - 2020-08-27 00:00:00 Provider, [facility] ENDOSCOPY SCAN [facility] RHYTHM STRIP - SCAN 2020-02-19 12:30[facility] 2020-02-17 14:22:17 Provider, [facility] TRANSFUSION SERVICE 2020-02-13 18:04:02 Provider, [facility] REPORT - [facility] HEMODIALYSIS INPATIENT 2020-02-13 13:28:00 Dong Bryson [facility] HEPATITIS B SURFACE 2020-02-13 13:05:00 Dong Bryson [facility] POCT-GLUCOSE METER 2020-02-13 12:52:00 Kristina Man [facility] POCT-GLUCOSE METER 2020-02-13 05:48:00 Kristina Man [facility] CBC (HEMOGRAM ONLY) 2020-02-13 02:53:00 Tanika Garza [facility] BASIC METABOLIC PANEL (7) 2020-02-13 02:53:00 Tanika Garza [facility] MAGNESIUM 2020-02-13 02:53:00 Rodolfo Haji [facility] CORTISOL 2020-02-13 02:53:00 Rodolfo Haji [facility] POCT-GLUCOSE METER 2020-02-13 00:21:00 Kristina Man [facility] TSH/FREE T4 IF INDICATED 2020-02-12 23:19:00 Rodolfo Haji [facility] COMPREHENSIVE METABOLIC 2020-02-12 17:46:00 Rodolfo Haji [facility] MAGNESIUM 2020-02-12 17:46:00 Rodolfo Haji [facility] CBC (HEMOGRAM ONLY) 2020-02-12 17:31:00 Rodolfo Haji [facility] PT/APTT 2020-02-12 17:31:00 Rodolfo Haji [facility] CALCIUM, IONIZED 2020-02-12 17:31:00 Rodolfo Haji [facility] BLOOD GAS, ARTERIAL 2020-02-12 17:31:00 Rodolfo Haji [facility] RRL CRITICAL LABS 2020-02-12 10:34:[address] [facility] - (ABG,NA,K,H&H,GLUCOSE) Medical C enter SODIUM NA-STAT LAB 2020-02-12 10:34:53 Katiana [facility] POTASSIUM-STAT LAB 2020-02-12 10:34:53 Katiana [facility] GLUCOSE-STAT LAB 2020-02-12 10:34:53 Katiana [facility] HGB/HCT (H&H) - STAT LAB 2020-02-12 10:34:53 Keatonjonathan [facility] TISSUE EXAM 2020-02-12 09:33:00 Kristina [facility] POCT-ACT 2020-02-12 09:12:00 Kristina [facility] ENDARTERECTOMY,CAROTID 2020-02-12 07:49:00 Kristina [facility] POTASSIUM-STAT LAB 2020-02-12 06:33:00 Bin Acevedo [facility] HGB/HCT (H&H) - STAT LAB 2020-02-12 06:33:00 Bin Acevedo [facility] GLUCOSE-STAT LAB 2020-02-12 06:33:00 Kristina Man [facility] CBC W/PLT COUNT & AUTO 2020-02-12 06:33:00 Kristina [facility] DIFFERENTIAL [facility] BASIC METABOLIC PANEL (7) 2020-02-12 06:33:00 Bin Acevedo [facility] TYPE AND SCREEN, 2020-02-12 06:33:[address] [facility] es - AUTOMATED [facility] SARS-COV2/RT-PCR ([facility] & 2020-02-12 05:57:[address] [facility] - REF LABS) [facility] POCT-GLUCOSE METER 2020-02-12 05:38:00 Bin Acevedo [facility] TRANSFUSION SERVICE 2020-02-04 18:05:[address] [facility] REPORT - SCAN Scanning [facility] TYPE AND SCREEN, 2020-02-03 10:48:[address] [facility] - AUTOMATED Medical Center ECG 12-LEAD 2020-02-03 10:36:29 Greg Tanika Irene [facility] Plan of Care Planned Activity Planned Date Details Comments Source Future Scheduled 2021-08-[address] [facility] - Test 00:00:00 [facility] colon (procedure) [code = 726930399] Future Scheduled 2021-02-[address] [facility] - Test 00:00:00 (Season Ended) [code = Medic al Center INFLUENZA VACCINE (Season Ended)] Future Scheduled 2020-06-[address] [facility] - Test 00:00:00 (12+) [code = Medical Center DEPRESSION SCREENING (12+)] Future Scheduled 2011-05-[address] [facility] - Test 00:00:00 WELLNESS (YEAR 2 or Medical Center FIRST YEAR if no IPPE) [code = MEDICARE ANNUAL WELLNESS (YEAR 2 or FIRST YEAR if no IPPE)] Future Scheduled 2010 PNEUMOCOCCAL 65+ YRS [facility] - Test 00:00:00 (1 of 1 - Medical Center [id number]) [code = PNEUMOCOCCAL 65+ YRS (1 of 1 - [id number])] Future Scheduled 1995 SHINGLES VACCINES ([address] [facility] - Test 00:00:00 of 2) [code = SHINGLES Medic al Center VACCINES (1 of 2)] Future Scheduled 1964 DTAP/TDAP/TD VACCINES [facility] - Test 00:00:00 (1 - Tdap) [code = Medical C enter DTAP/TDAP/TD VACCINES (1 - Tdap)] Future Scheduled 1963 HEPATITIS C [facility]CREENING [facility] - Test 00:00:00 [code = HEPATITIS C Medical Center SCREENING] Encounters Start End Encounter Admission Attending Care Care Encounter Source Date/Time Date/Time Type Type Clinicians Facility Department ID 2020-08-26 2020[facility]08-26 [id number] [place] 00:00:00 00:00:00 TERRY [id number] 2020-07-29 2020-07-29 [place] [id number] [place] 00:00:00 00:00:00 TERR[address] 2020-07-27 2020-07-27 Outpatient KAYDEN Rebecca [facility] [id number] [place] 00:00:00 00:00:00 TERRY [address] 2020-07-22 2020-07-22 Outpatient JAKE MONIQUE [facility] [id number] [place] 00:00:00 00:00:00 TERRY [address] Results Test Test Test Comments Results Result Source Description Time Comments CT, ABDOMEN 2020-08 Unlisted Reason -31 for Exam - Click 08:58:0 Yes [address] [facility] Reason - MEDICAL CENTERName: Below->Jonasjeanine iglesias Robbie LONDON procedure require : 1945 oral contrast?->No Sex: M FINAL REPORT CT of the abdomen, with and without contrast, CT of pelvis without contrast Clinical History: Unlisted Reason for Exam Technique: CT of the abdomen is performed before and after intravenous contrast administration. CT of pelvis is performed without intravenous contrast. This exam was performed according to our departmental dose optimization program which includes automated exposure control, adjustment of the mA and/or kV according to patient's size and/or use of iterative reconstructive technique. Comparison Film: MRI dated September 02, 2020 Discussion: There is mild bronchiectasis at the lung bases. The distal thoracic aorta is aneurysmal, measuring 4.7 cm. There is a tiny hiatal hernia. There are multiple tiny cysts in the liver. No biliary ductal dilatation. Status post cholecystectomy. The spleen, pancreas, and adrenal glands are normal. Multiple cysts are present in the kidneys. There is a subcapsular fluid collection at the posterior upper to midpole of the left kidney, measuring up to 2.6 cm in thickness with mild degree of internal hyperdensity that may reflect hemorrhage. There is moderate right hydronephrosis. Soft tissue density is noted within the distal right ureter, which may reflect hemorrhage, versus mass. No evidence of bowel obstruction or abnormal bowel wall thickening. Normal appendix. There is colonic diverticulosis, without evidence of acute diverticulitis. In the pelvis, bladder, prostate and seminal vesicles are unremarkable. There is no ascites, or free air. A few shotty retroperitoneal lymph nodes are nonspecific. Status post aortoiliac stent graft placement. Bony structures demonstrate mild degenerative changes. Impression: Polycystic kidneys. There is moderate right hydronephrosis, with soft tissue density in the distal right ureter which may reflect hemorrhage versus a mass. Subcapsular fluid collection at the upper to midpole of the left kidney, which may contain hemorrhagic contents. Multiple small liver cysts. Status post cholecystectomy. Thoracic aortic aneurysm. Status post aortoiliac stent graft placement. Mild bronchiectasis at the lung bases. Colonic diverticulosis. Tiny hiatal hernia. Signed: Irene Juarez MDReport Verified Date/Time: 09/22/2020 08:58:10 Reading Location: [facility] [id number] Ortho Consult Reading Room 2020-08 Interface, External Ris [facility] abdomen/pelvis - In - 09/22/2020 9:00 [facility] - without & with 08:58:0 CDTFINAL REPORT PATIENT Medical IV contrast 0 ID: [id number] CT of Ce nter the abdomen, with and without contrast, CT of pelvis without contrast Clinical History: Unlisted Reason for Exam Technique: CT of the abdomen is performed before and after intravenous contrast administration. CT of pelvis is performed without intravenous contrast. This exam was performed according to our departmental dose optimization program which includes automated exposure control, adjustment of the mA and/or kV according to patient's size and/or use of iterative reconstructive technique. Comparison Film: MRI dated September 02, 2020 Discussion: There is mild bronchiectasis at the lung bases. The distal thoracic aorta is aneurysmal, measuring 4.7 cm. There is a tiny hiatal hernia. There are multiple tiny cysts in the liver. No biliary ductal dilatation. Status post cholecystectomy. The spleen, pancreas, and adrenal glands are normal. Multiple cysts are present in the kidneys. There is a subcapsular fluid collection at the posterior upper to midpole of the left kidney, measuring up to 2.6 cm in thickness with mild degree of internal hyperdensity that may reflect hemorrhage. There is moderate right hydronephrosis. Soft tissue density is noted within the distal right ureter, which may reflect hemorrhage, versus mass. No evidence of bowel obstruction or abnormal bowel wall thickening. Normal appendix. There is colonic diverticulosis, without evidence of acute diverticulitis. In the pelvis, bladder, prostate and seminal vesicles are unremarkable. There is no ascites, or free air. A few shotty retroperitoneal lymph nodes are nonspecific. Status post aortoiliac stent graft placement. Bony structures demonstrate mild degenerative changes. Impression: Polycystic kidneys. There is moderate right hydronephrosis, with soft tissue density in the distal right ureter which may reflect hemorrhage versus a mass. Subcapsular fluid collection at the upper to midpole of the left kidney, which may contain hemorrhagic contents. Multiple small liver cysts. Status post cholecystectomy. Thoracic aortic aneurysm. Status post aortoiliac stent graft placement. Mild bronchiectasis at the lung bases. Colonic diverticulosis. Tiny hiatal hernia. Signed: [facility] Verified Date/Time: 09/22/2020 08:58:10 Reading Location: [address] Ortho Consult Reading Room , ABDOMEN, 2020-08 ESRD WITHOUT -11 patientUnlisted CONTRAST 15:11:0 Reason for Exam - [facility] 0 Click Yes and - MEDICAL CENTERName: Enter Reason JANEL LONDON : Below->NoDeos the 1945 Sex: patient have an M implanted electronic FINAL device?->No REPORT MR, ABDOMEN, WITHOUT CONTRAST, MR, PELVIS, WITHOUT CONTRAST HISTORY: Bladder cancer, staging COMPARISON: None. TECHNIQUE: MRI of the abdomen and pelvis was performed without gadolinium contrast. Multiplanar, multisequence images were obtained. FINDINGS: Lack of intravenous contrast compromises evaluation of perfusion and for isointense lesions. Lung bases: Unremarkable.Liver: Signal loss on in phase imaging and diffusely T2 hypointense. Numerous T2 hyperintensities throughout the liver, up to 15 mm, likely cystsGallbladder and bile ducts: Surgically absent gallbladder. Moderate biliary ductal dilation, abrupt caliber change at the ampulla without filling defects.Spleen: Signal loss on in phase imaging and diffusely T2 hypointense.Pancreas: Unremarkable.Adrenals: Unremarkable.Kidneys and ureters: Innumerable renal lesions bilaterally, poorly evaluated without IV contrast, mixed T2 hyperintense and T2 hypointense and mixed T1 hyperintense and T1 hypointense. 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 Mild right hydroureteronephrosis. A filling defect in the distal right ureter (pelvis series 3 image 23) approximately 25 mm in length. No left-sided hydronephrosis.Bowel: Predominantly left sided colonic diverticulosis without associated colonic wall thickening or surrounding stranding. Appendix not visualized, but there is no stranding in the right lower quadrant. 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 Status post aortobiiliac stent. Maximum diameter infrarenal abdominal aorta 3.7 cm. Severe atherosclerosis.Abdomina l wall: Unremarkable.Bones: Multilevel degenerative changes of the lumbar spine. IMPRESSION: Limited exam. In the setting of polycystic liver and kidney disease, a noncontrast exam is of limited utility. Additionally, the pelvic portion of this exam was performed without any diffusion-weighted imaging. If additional imaging sequences are performed at a later date, an addendum will be made. 1.Mild right hydroureteronephrosis related to a 2.5 cm long filling defect in the distal right ureter, correlate with ureteroscopy.2.An infiltrative process throughout a large portion of the left renal parenchyma, could be infectious or neoplastic. 3.Limited evaluation for renal masses without IV contrast in the setting of extensive polycystic kidney disease.4.Thoracic and abdominal aortic aneurysms as described above. Compare with outside prior exams for stability.5.Numerous hepatic cysts.6.Hepatic and splenic iron deposition.7.Status post cholecystectomy. Biliary ductal dilation could be related to postcholecystectomy biliary reservoir effect. Signed: Abebe Huizar Verified Date/Time: 09/02/2020 15:11:40 Reading Location: [facility] Diagnostic Imaging Reading Room - [place] [address] , PELVIS, 2020-08 ESRD WITHOUT -11 patientUnlisted CONTRAST 15:11:0 Reason for Exam - [facility] 0 Click Yes and - MEDICAL CENTERName: Enter Reason JANEL LONDON : Below->NoDeos the 1945 Sex: patient have an M implanted electronic FINAL device?->No REPORT MR, ABDOMEN, WITHOUT CONTRAST, MR, PELVIS, WITHOUT CONTRAST HISTORY: Bladder cancer, staging COMPARISON: None. TECHNIQUE: MRI of the abdomen and pelvis was performed without gadolinium contrast. Multiplanar, multisequence images were obtained. FINDINGS: Lack of intravenous contrast compromises evaluation of perfusion and for isointense lesions. Lung bases: Unremarkable.Liver: Signal loss on in phase imaging and diffusely T2 hypointense. Numerous T2 hyperintensities throughout the liver, up to 15 mm, likely cystsGallbladder and bile ducts: Surgically absent gallbladder. Moderate biliary ductal dilation, abrupt caliber change at the ampulla without filling defects.Spleen: Signal loss on in phase imaging and diffusely T2 hypointense.Pancreas: Unremarkable.Adrenals: Unremarkable.Kidneys and ureters: Innumerable renal lesions bilaterally, poorly evaluated without IV contrast, mixed T2 hyperintense and T2 hypointense and mixed T1 hyperintense and T1 hypointense. 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 Mild right hydroureteronephrosis. A filling defect in the distal right ureter (pelvis series 3 image 23) approximately 25 mm in length. No left-sided hydronephrosis.Bowel: Predominantly left sided colonic diverticulosis without associated colonic wall thickening or surrounding stranding. Appendix not visualized, but there is no stranding in the right lower quadrant. 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 Status post aortobiiliac stent. Maximum diameter infrarenal abdominal aorta 3.7 cm. Severe atherosclerosis.Abdomina l wall: Unremarkable.Bones: Multilevel degenerative changes of the lumbar spine. IMPRESSION: Limited exam. In the setting of polycystic liver and kidney disease, a noncontrast exam is of limited utility. Additionally, the pelvic portion of this exam was performed without any diffusion-weighted imaging. If additional imaging sequences are performed at a later date, an addendum will be made. 1.Mild right hydroureteronephrosis related to a 2.5 cm long filling defect in the distal right ureter, correlate with ureteroscopy.2.An infiltrative process throughout a large portion of the left renal parenchyma, could be infectious or neoplastic. 3.Limited evaluation for renal masses without IV contrast in the setting of extensive polycystic kidney disease.4.Thoracic and abdominal aortic aneurysms as described above. Compare with outside prior exams for stability.5.Numerous hepatic cysts.6.Hepatic and splenic iron deposition.7.Status post cholecystectomy. Biliary ductal dilation could be related to postcholecystectomy biliary reservoir effect. Signed: Abebe Huizareport Verified Date/Time: 09/02/2020 15:11:40 Reading Location: [facility] Diagnostic Imaging Reading Room - [place] [address] 1129 pelvis 2020-08 Interface, External Ris C HI St without IV -11 In - 09/02/2020 3:13 PM [facility] - contrast 15:11:0 CSTFINAL REPORT PATIENT M edical 0 ID: [id number] MR, Center ABDOMEN, WITHOUT CONTRAST, MR, PELVIS, WITHOUT CONTRAST HISTORY: Bladder cancer, staging COMPARISON: None. TECHNIQUE: MRI of the abdomen and pelvis was performed without gadolinium contrast. Multiplanar, multisequence images were obtained. FINDINGS: Lack of intravenous contrast compromises evaluation of perfusion and for isointense lesions. Lung bases: Unremarkable.Liver: Signal loss on in phase imaging and diffusely T2 hypointense. Numerous T2 hyperintensities throughout the liver, up to 15 mm, likely cystsGallbladder and bile ducts: Surgically absent gallbladder. Moderate biliary ductal dilation, abrupt caliber change at the ampulla without filling defects.Spleen: Signal loss on in phase imaging and diffusely T2 hypointense.Pancreas: Unremarkable.Adrenals: Unremarkable.Kidneys and ureters: Innumerable renal lesions bilaterally, poorly evaluated without IV contrast, mixed T2 hyperintense and T2 hypointense and mixed T1 hyperintense and T1 hypointense. 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 Mild right hydroureteronephrosis. A filling defect in the distal right ureter (pelvis series 3 image 23) approximately 25 mm in length. No left-sided hydronephrosis.Bowel: Predominantly left sided colonic diverticulosis without associated colonic wall thickening or surrounding stranding. Appendix not visualized, but there is no stranding in the right lower quadrant. 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 Status post aortobiiliac stent. Maximum diameter infrarenal abdominal aorta 3.7 cm. Severe atherosclerosis.Abdomina l wall: Unremarkable.Bones: Multilevel degenerative changes of the lumbar spine. IMPRESSION: Limited exam. In the setting of polycystic liver and kidney disease, a noncontrast exam is of limited utility. Additionally, the pelvic portion of this exam was performed without any diffusion-weighted imaging. If additional imaging sequences are performed at a later date, an addendum will be made. 1.Mild right hydroureteronephrosis related to a 2.5 cm long filling defect in the distal right ureter, correlate with ureteroscopy.2.An infiltrative process throughout a large portion of the left renal parenchyma, could be infectious or neoplastic. 3.Limited evaluation for renal masses without IV contrast in the setting of extensive polycystic kidney disease.4.Thoracic and abdominal aortic aneurysms as described above. Compare with outside prior exams for stability.5.Numerous hepatic cysts.6.Hepatic and splenic iron deposition.7.Status post cholecystectomy. Biliary ductal dilation could be related to postcholecystectomy biliary reservoir effect. Signed: Abebe Huizar MDReport Verified Date/Time: 09/02/2020 15:11:40 Reading Location: [facility] Diagnostic Imaging Reading Room - [place] [address] abdomen 2020-08 Interface, External Ris C HI St without IV -11 In - 09/02/2020 3:13 PM [facility] - contrast 15:11:0 CSTFINAL REPORT PATIENT M edical 0 ID: [id number] MR, Center ABDOMEN, WITHOUT CONTRAST, MR, PELVIS, WITHOUT CONTRAST HISTORY: Bladder cancer, staging COMPARISON: None. TECHNIQUE: MRI of the abdomen and pelvis was performed without gadolinium contrast. Multiplanar, multisequence images were obtained. FINDINGS: Lack of intravenous contrast compromises evaluation of perfusion and for isointense lesions. Lung bases: Unremarkable.Liver: Signal loss on in phase imaging and diffusely T2 hypointense. Numerous T2 hyperintensities throughout the liver, up to 15 mm, likely cystsGallbladder and bile ducts: Surgically absent gallbladder. Moderate biliary ductal dilation, abrupt caliber change at the ampulla without filling defects.Spleen: Signal loss on in phase imaging and diffusely T2 hypointense.Pancreas: Unremarkable.Adrenals: Unremarkable.Kidneys and ureters: Innumerable renal lesions bilaterally, poorly evaluated without IV contrast, mixed T2 hyperintense and T2 hypointense and mixed T1 hyperintense and T1 hypointense. 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 Mild right hydroureteronephrosis. A filling defect in the distal right ureter (pelvis series 3 image 23) approximately 25 mm in length. No left-sided hydronephrosis.Bowel: Predominantly left sided colonic diverticulosis without associated colonic wall thickening or surrounding stranding. Appendix not visualized, but there is no stranding in the right lower quadrant. 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 Status post aortobiiliac stent. Maximum diameter infrarenal abdominal aorta 3.7 cm. Severe atherosclerosis.Abdomina l wall: Unremarkable.Bones: Multilevel degenerative changes of the lumbar spine. IMPRESSION: Limited exam. In the setting of polycystic liver and kidney disease, a noncontrast exam is of limited utility. Additionally, the pelvic portion of this exam was performed without any diffusion-weighted imaging. If additional imaging sequences are performed at a later date, an addendum will be made. 1.Mild right hydroureteronephrosis related to a 2.5 cm long filling defect in the distal right ureter, correlate with ureteroscopy.2.An infiltrative process throughout a large portion of the left renal parenchyma, could be infectious or neoplastic. 3.Limited evaluation for renal masses without IV contrast in the setting of extensive polycystic kidney disease.4.Thoracic and abdominal aortic aneurysms as described above. Compare with outside prior exams for stability.5.Numerous hepatic cysts.6.Hepatic and splenic iron deposition.7.Status post cholecystectomy. Biliary ductal dilation could be related to postcholecystectomy biliary reservoir effect. Signed: Abebe Huizareport Verified Date/Time: 09/02/2020 15:11:40 Reading Location: [facility] Diagnostic Imaging Reading Room - [place] [address] Tissue Exam 2020-09-01 10:13:00 Test Item Value Reference Range Interpretation Comme nts Case Report (test code = 104) Surgical Pathology Report Case: [id number] Authorizing Provider: Sebas Huang, Collected: 08/31/2020 12:53 PM Ordering Location: [address] Med/Surg Received: 08/31/2020 01:41 PM Pathologist: Ariana Victor MD Specimen: Bladder Tumor DIAGNOSIS (test code = 3220) u3kioEQpFNPjl1smCGLvzFTkPeImSkXkHuQgMw p cdWMxIHtccnRmMVxlcGljOTIwMlxhbnNpXHNwbH MhO4NwcghmNYdmCL6wSW9raIhvdFZfmFThEDGyV cHxa6asa974fSYcm4baKDGBvgmgiBy5zTbmH89l a6Y5TmakW95puGKxFSmcpMRbazdvqrXzIHPGILP BZLOjGWVEG3LcNBTUTY7IBEIGQRtFZLweWiOMWH VPRP9BJW0GCYXYWJUFXAH7JFDsxeHlRUJhRUnCK 4asV4DZSAXuQVFGORmXLQvJRSUYJNPIBS0HZNVk CO9jWFSFUJMLT9WBKX3YPL8KJPYELBXNL3zOKDU WBCFHC0IMV6udNCPiWVAlCYTOPE5DKxHZIgWUCQ LVCBaBUR7iTBIrCTGPX1HgROFPXO7VNDICW8XZE WVulSAoVOAyTH6yJu1sYTIYKB5NEEaBGDZKGDIL XHxGJwcYCFYKW8NNAGBxEJEtRZOBJ0OINORMS3Y gRVZBTFVBVElPTlxwYXJccGFyfXtccnRmMVxzc3 FeYIyfXWYhUE7atQviNZTtKW5oPZIpG5kqiU2rf ux5LuOaPWKlIsB4TUXjzpX4Umm5FHFxGFwhv3mc q7TcYTWqFPw6yQrgMqCpAOLrq1jzjqZtToJmEAM hHZAeADDlgNUtV770v2ist0zobpIemLF6XMRnLM Q7UEcnwwVtyzN7XWmneXWmEaV0CFvaaiTiUEolp wRrmeXrAfl9AVTwK224JVY8lIdeb7tqUVR5IUIq KMPvOkBsCm0ouJTsC916CEFkGFHHBKEsjRk8VWT wjgYmreEeqOQZj824O558t4exJLGapeZzzSeTgr mfs0czV937GSBtfSPbelFlJvEjSLBraPDceGZ7H WJuCH2rjnovZWojBOcxPIGhqtE2MKZbyGLjL1Gg NURjLD4lgwftKOO0GEncRQZwNLG8FtPeOIDby3M uknd6ZpNgpq5ala37JWF3e7KusLrfJYB2WMZ1Oq MsGr4irCRmGTIcLP9yYuGadNGdWEVnpw10vDmcI GgqJKO2BOVlnyFgh7Dtb9dkZaHsisZiG7coG7Wl BUQwHFDeGRAkVfAukaUwq4Gql8XrvFXboYh3z8l eLKPhRMAlnZjna5boKKH1CISljYTnM3ntxO1pMU OhPL2xvrhga3dpPWlrEJsfEFHgzRU3mqC7RNChf FOiD6TvtU1uRQZrFLrnCLSptqk0SbOvBq7uyIMq eTcyMFxzYmtwYWdlXHBnbmNvbnRccGduZGVjXHB sYWluXHBsYWluXGYwXGZzMjRccWxcbGFuZzEwMz NchWxvcTpmDFqaAlFnPXBmCScgY3foRgKpKgRyU cz1HCSbsLWoXKRiTdo5UZVplHTsJCNIiTjavO3l YYAhoVlkzU3bmWX7KQBdfoJyvNGIgW5xCQCKkN6 lAjW2DMPsNaq4UPJoISnmmWZvkM2= CPT Code(s) (test code = 3357) y6uzkVJzOFDgfPV5JsVdGIAvt5ncq7IztMJb cGF kFWnvfKNyhxLoao12sON1fL34CE1vJKTxQuP3OZ WuuiI8Fmc8YKKuHLCikFXuU204y4vir1rzitLnn WS7aNuhSQXdCERfHNxiJAQpIeGgYSmbOGbdZRLl ypW1JJCnUYiqTTE9 CLINICAL HISTORY (test code = 7856) q0vhePUzGAPtbFK5HgRnQEOar5fmw5G sdHBncGF pQIojjSPotdDdpm49kPD7vT60VM0wCZVfKgN4PR SknyQ3Isk4NCOyZSHtdUKnT306u9wep1hdufDfx QK9eNrtVYAsDCMjJVizRJZqYvHgSXeazt2cKOGi ra0llPKdWZXtY4s3RZhtDQS4 SPECIMEN SOURCE (test code = 3377) y3qeqIFsKJLhrKQ8DiDiDDEup8xyw3Eh dHBncGF nUXnscPUkhaUqxt50pUP4lS98TQ3vCNWwUlW6CV MhskB3Szf9NAKsKLMwrWJsT398n3qoy0wtblWwc WY5nPftOIJhFXSiYEccITYiRiDzDjdtZWJzmkF0 vH9wmbctTRL2 GROSS DESCRIPTION (test code = 3366) a8fujMXeUMClaRR6AcVoXGAae5dyz4 BsdHBncGF yWAfiyHLaalEblg82kUO2zI54PC7xBWKlBpQ5EF SzhoL5Pqg1RYBzMVZlcBRgO731z5ctg9ryiyYam OG7tHlwLJMxZRHmLVbpDBWtYgSdRJnvXOLnVFXf uVEyKWzuZPKpG8GsmkOvVSaiZJNazBK5hBOfBOi gEkTsZBWhv4k4iAQ2iIVssFG6tFTacIbfXP1liR TrGJ0lUR1tUPkpHDrbnrQvd3ZtLR43cNCkyiYjt nEuEHDqpVgpCZUxXUYwooDhGmuoYPWcymV8vP9m nyDaKJHhlnWbb4JlUD7aZI62xITqeUfvZLVxuKO sxCFryZnte9MkQWAiBWugRE73wxTqVYZqhGCxzj bdAV9jUTkjXf00WOuiCT00ZNYyJBreGEDoA4NnB 4X6YJ5zSZxnAYGpGWUsmFBwUGoxQLHmcFzlZCs9 EHQ3Iu8diCLkTZBnarEsXXDnUKR1XfJIKl3ltvD gXHBhcn0= MICROSCOPIC DESCRIPTION (test code = b2svtWUhVYYhgKG2AhRvPCSrx9ypq7 BsdHBncGF 3371) oAToyoDQifoYgfr62kDC1tI15YU7aKYNaMpX8MY JcxxT4Mat8UQTxGKHneGIdA607v5cmh9meqpUey VX8kKoyDVAeGPExJZrmHRPaLmQtFAOxZr7khJDg IFxwYXJ9 Gross assessment was performed at (test [facility], code = 2777) Department of Pathology, [address] [place] [address], Technical component was performed at [facility], (test code = 2778) Department of Pathology, [address] [place] [address] [place] [address], Professional component was performed at [facility] Abisai holguin, (test code = 2779) Department of Pathology, [address] [place] [address], [facility] Center[facility] [id number] 10:13:00Surgical Pathology Report Case: [id number] Authorizing Provider: Sebas Huang, Collected: 08/31/2020 12:53 PM [facility]ingLocation[facility] 05B Med/Surg Received: 08/31/2020 01:41 PM Pathologist: Ariana Victor MD Specimen: Bladder Tumor BLADDER TUMOR, TRANSURETHRAL RESECTION OF BLADDER: - 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 The specimen is entirely submitted into A1-A6. MG/ew Performed [facility], Department of Pathology, [address] [place] [address], [facility], Department of Pathology, [address] [place] [address], [facility], Department of [facility]ology, [address] [place] [address], RA, FLUORO, NON-SPECIFIC, UP TO 1 [id number] 12:50:00 Reason for exam:->[facility] : 1945 Sex: MFluoroscopic unit utilized for a procedure performed in the OR. No interpretation was requested. Refer to the operative report for findings. Refer to PACS for patient radiation dose information.FL fluoro non-specific up to 1 [id number] 12:50:00 Interface, External Ris In - 08/31/2020 12:55 PM CSTFluoroscopic unit utilized for a procedure performed in the OR. No interpretation was requested. Refer to the operative report for findings. Referto PACS for patient radiation dose information.[facility]2D Echo W/Doppler(CW/PW/Color) 2020-08-31 08:09:56Ejection FractionSLEH ECHO HEARTLAB MKCKESSON CPACSInterface, External Ris In - 08/31/2020 8:10 AM CSTTransthoracic Echocardiography Report (TTE) Demographics Patient Name JANEL LONDON Date of Study 08/29/2020 Gender Male Visit Number [id number] Race Unknown Room Number B531 Number Date of 1945 Referring Physician Age 75 year(s) Ultrasound Sonographer [place] Najera Interpreting Humberto Reed Jr. MD Physician Procedure Type of Study TTE procedure:2DECHO W DOPPLER(CW/PW/COLOR) (Routine) Indications:Shortness of breath.Clinical HistoryCOPD, SOB, RENAL FAILURE, HTN, ESRD, HYPOTHYROID.Height: 70 inches Weight: 82.55 kg (182 lbs) BSA: 2.01 m^2 BMI: 26.11 kg/m^2HR: 81 bpm BP: 166/63 mmHg Summary 1. mild left ventricular hypertrophy vs upper limit of LV thickness 2. no obvious wall motion abnormality 3. LV ejection fraction 55% 4. mild tricuspid insufficiency 5. trivial pericardial effusion. Signature Findings Left Ventricle Left ventricular size is normal. The visual ejection fraction was estimated 55 %. Mild concentric LVhypertrophy. Left Atrium LA size is normal . Right Ventricle Normal right ventricular systolic function. Aortic Valve Normal AoV structure. Mitral Valve Normal MV structure. Tricuspid Valve Mild tricuspid regurgitation. Pericardium A trivial pericardial effusion is present . Chambers/Structures Left Atrium LA Dimension: 2.67 cm LA Area: 11.21 cm^2 LA Volume: 22.84 ml LA Vol. Index: 11 ml/m^2 Left Ventricle LVIDd: 3.72 cm LVEDV:58.99 ml LVIDs: 2.98 cm LVESV:34.34 ml LV Septum Diastolic: 1.28 cm LV Septum Systolic: 1.69 cm LV Length: 8.48 cm LV PW Diastolic: 1.93 cm LV FS: 19.9 % LV PW Systolic: 1.71 cm LVOT Diameter: 1.78 cm LVEF: 41.8 % Right Atrium RA Systolic Pressure: 10 mmHg Right Ventricle RV Systolic Pressure: 42.39 mmHg Aorta Ao Root S of Heather.: 3.12 cm Doppler/Quantitative Measurements Mitral Valve MV Peak E-Wave: 1.06m/s MV Peak A-Wave: 0.89 m/s P1/2t: 69 msec E/A Ratio: 1.18 Peak Velocity: 1.07 m/s Peak Gradient: 4.47 mmHg Mean Velocity: 0.67 m/s Deceleration Time: 222.6 msec Mean Gradient: 2.01 mmHg Area (continuity): 1.66 cm^2 MV Area (PHT): 3.19 cm^2 MR Velocity: 3.14 m/s MV VTI: 28.61 cmMV Shoaib. Peak: Tissue Doppler E' Septal Velocity: 0.07 m/s E' Lateral Velocity: 0.1 m/s Aortic Valve Peak Velocity: 1.34 m/s Mean Velocity: 0.86 m/s Peak Gradient: 7.13 mmHg Mean Gradient: 3.39 mmHg AV Area (continuity): 1.91 cm^2 AV VTI: 24.88 cm Cusp Separation: 1.85 cm AV DVI: 0.77 LVOT Peak Velocity: 1.01 m/s Peak Gradient: 4.05 mmHg Mean Velocity: 0.67 m/s Mean Gradient: 2.09 mmHg LVOT Diameter: 1.78 cm LVOT VTI: 19.13 cm LVOT Area: 2.49 cm^2 LVOT SV:47.58 ml LVOT CO: 3.85 l/min LVOT CI: 1.92 l/min/m^2 Tricuspid Valve Estimated RVSP: 42.4 mmHg Estimated RAP: 10 mmHg TR Velocity: 2.85 m/s TR Gradient: 32.39 mmHg Pulmonic Valve Peak Velocity: 0.91 m/s Peak Gradient: 3.29 mmHg Estimated PASP: 42.39 mmHgOrange Coast Memorial Medical CenterComprehensive metabolic [id number] 06:56:00 Test Item Value Reference Range Interpretation Comments Protein, Total (test 6.7 See_Comment [Autom ated code = 2885-2) message] The system which generated this result transmitted reference range : 6.0 - 8.5 gm/dL . The reference range was not used to interpr et this result as normal/abnormal . Albumin (test code = 3.2 g/dL 3.5-5 L 52072-6) Alkaline Phosphatase 57 U/L 30-115 (test code = 6768-6) Total Bilirubin 0.4 mg/dL 0.1-1.2 (test code = 1975-2) Sodium (test code = 138 meq/L 833-061 0904-2) Potassium (test code 3.9 meq/L 3.6-5.5 = 2823-3) Chloride (test code 99 meq/L 98-106 = 2075-0) CO2 (test code = 26 meq/L -29 2027-) BUN (test code = 30 mg/dL 10-26 H 3094-0) Creatinine (test 7.85 mg/dL 0.5-1.2 H code = 2160-0) Glucose (test code = 94 mg/dL 70-110 2345-7) Calcium (test code = 8.7 mg/dL 8.5-10.5 81666-7) AST (test code = 49 U/L 5-40 H 1920-8) ALT (test code = 55 U/L 5-50 H 1742-6) EGFR (test code = 7 mL/min/1[place]73 [place] [address]-0) m NOT ACCURATE CREATININE CLEARANCE IN PREDICTING GLOMERULAR FILTRATION RATE . ESTIMATED GFR I S NOT APPLICABLE FOR DIALYSIS PATIENTS. ТАТЬЯНА (test code = Product Design Specialist ID - ТАТЬЯНА) LITOOperator ID - LITOOperator ID - LITOOperator ID - LITOOperator ID - LITOOperator ID - LITOOperator ID - LITOOperator ID - LITOOperator ID - LITOOperator ID - LITOOperator ID - LITOOperator ID - LITOOperator ID - LITOOperator ID - LITOOperator ID - LITOOperator ID - JUNITO Lab Interpretation Abnormal (test code = 30978-5) [facility] CenterCOMPREHENSIVE METABOLIC [id number] 06:56:00 Test Item Value Reference Range Interpretation Comments TOTAL PROTEIN 6.7 gm/dL 6.0-8.5 (BEAKER) (test code = 770) ALBUMIN (BEAKER) 3.2 g/dL 3.5-5.0 L (test code = 1145) ALKALINE PHOSPHATASE 57 U/L 30-115 (BEAKER) (test code = 346) BILIRUBIN TOTAL 0.4 mg/dL 0.1-1.2 (BEAKER) (test code = 377) SODIUM (BEAKER) (test 138 meq/L 135-148 code = 381) POTASSIUM (BEAKER) 3.9 meq/L 3.6-5.5 (test code = 379) CHLORIDE (BEAKER) 99 meq/L 98-106 (test code = 382) CO2 (BEAKER) (test 26 meq/L 20-29 code = 355) BLOOD UREA NITROGEN 30 mg/dL 10-26 H (BEAKER) (test code = 354) CREATININE (BEAKER) 7.85 mg/dL 0.50-1.20 H (test code = 358) GLUCOSE RANDOM 94 mg/dL 70-110 (BEAKER) (test code = 652) CALCIUM (BEAKER) 8.7 mg/dL 8.5-10.5 (test code = 697) AST (SGOT) (BEAKER) 49 U/L 5-40 H (test code = 353) ALT (SGPT) (BEAKER) 55 U/L 5-50 H (test code = 347) EGFR (BEAKER) (test 7 mL/min/1.73 ESTIMAT ED GFR IS code = 1092) sq m NOT ACCURATE CREATININE CLEARANCE IN PREDICTING GLOMERULAR FILTRATION RATE . ESTIMATED GFR I S 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 Product Design Specialist ID - LITOOperator ID - LITOOperator ID - LITOOperator ID - LITOOperator ID - LITOOperator ID - LITOOperator ID - LITOOperator ID - LITOOperator ID - LITOOperator ID - LITOOperator ID - LITOOperator ID - LITOOperator ID - LITOOperator ID - LITOOperator ID - LITOOperator ID - [id number] 06:54:00 Test Item Value Reference Range Interpretation Comments Magnesium (test code = 2.1 mg/dL 1.5-3 77811-9) ТАТЬЯНА (test code = ТАТЬЯАН) Product Design Specialist ID - LITOOperator ID - LITOOperator ID - LITOOperator ID - [id number] Lab Interpretation (test Normal code = 23549-2) [facility] 06:54:00 Test Item Value Reference Range Interpretation Comments MAGNESIUM (BEAKER) (test code = 2.1 mg/dL 1.5-3.0 627) Product Design Specialist ID - LITOOperator ID - LITOOperator ID - LITOOperator ID - [id number] with platelet count + automated [id number] 06:31:00 Test Item Value Reference Range Interpretation Comments WBC (test code = 6690-2) 11.9 See_Comment H [A utomated message] The system Kranem generated this result transmitted ref erence range: 4.0 - 10 .0 K/L. The refe rence range was not u sed to interpret this result as normal/abnor mal. RBC (test code = 789-8) 2.61 See_Comment L [Au tomated message] The system Bid Nerd generated this result transmitted ref erence range: 4.20 - 5 .80 M/L. The refe rence range was not u sed to interpret this result as normal/abnor mal. MCHC (test code = 786-4) 32.2 See_Comment L [A utomated message] The system [employer] generated this result transmitted ref erence range: 32.0 - 3 6.0 GM/DL. The refe rence range was not u sed to interpret this result as normal/abnor mal. Hematocrit (test code = 26.4 % 36-50 L 4544-3) MCV (test code = 787-2) 101.1 fL 82-99 H MCH (test code = 785-6) 32.6 pg 27-33 RDW (test code = 788-0) 14.8 % 12-15 Platelets (test code = 280 See_Comment [Aut omated message] 777-3) The system B[employer] Nerd generated this result transmitted ref erence range: 150 - 43 0 K/CU MM. The referen ce range was not u sed to interpret this result as normal/abnor mal. MPV (test code = 9.8 fL 6-11.5 86328-9) nRBC (test code = 413) 0 See_Comment [Aut omated message] The system B[employer] Nerd generated this result transmitted ref erence range: 0 - 0 /1 00 WBC. The refere nce range was not u sed to interpret this result as normal/abnor mal. % Neutros (test code = 72 % 429) % Lymphs (test code = 14 % 430) % Monos (test code = 8 % 431) % Eos (test code = 432) 3 % % Baso (test code = 437) 1 % # Neutros (test code = 8.63 See_Comment H [Aut omated message] 670) The system B[employer] generated this result transmitted ref erence range: 1.80 - 8 .00 K/L. The refe rence range was not u sed to interpret this result as normal/abnor mal. # Lymphs (test code = 1.67 See_Comment [Auto mated message] 414) The system Kranem generated this result transmitted ref erence range: 1.48 - 4 .50 K/L. The refe rence range was not u sed to interpret this result as normal/abnor mal. # Monos (test code = 0.99 See_Comment [Autom ated message] 415) The system Kranem generated this result transmitted ref erence range: 0.00 - 1 .30 K/L. The refe rence range was not u sed to interpret this result as normal/abnor mal. # Eos (test code = 416) 0.35 See_Comment [Au tomated message] The system Kranem generated this result transmitted ref erence range: 0.00 - 0 .50 K/L. The refe rence range was not u sed to interpret this result as normal/abnor mal. # Baso (test code = 417) 0.06 See_Comment [A utomated message] The system Kranem generated this result transmitted ref erence range: 0.00 - 0 .20 K/L. The refe rence range was not u sed to interpret this result as normal/abnor mal. Immature 2 % 0-0 H Granulocytes-Relative (test code = 2801) Lab Interpretation (test Abnormal code = 81866-5) [facility] W/PLT COUNT & AUTO [id number] 06:31:00 Test Item Value Reference Range Interpretation Comments WHITE BLOOD CELL COUNT (BEAKER) 11.9 K/ L 4.0-10.0 H (test code = 775) RED BLOOD CELL COUNT (BEAKER) 2.61 M/ L 4.20-5.80 L (test code = 761) HEMOGLOBIN (BEAKER) (test code = 8.5 GM/DL 13.0-16.8 L 410) HEMATOCRIT (BEAKER) (test code = 26.4 % 36.0-50.0 L 411) MEAN CORPUSCULAR VOLUME (BEAKER) 101.1 fL 82.0-99.0 H (test code = 753) MEAN CORPUSCULAR HEMOGLOBIN 32.6 pg 27.0-33.0 (BEAKER) (test code = 751) MEAN CORPUSCULAR HEMOGLOBIN CONC 32.2 GM/DL 32.0-36.0 (BEAKER) (test code = 752) RED CELL DISTRIBUTION WIDTH 14.8 % 12.0-15.0 (BEAKER) (test code = 412) PLATELET COUNT (BEAKER) (test 280 K/CU MM 150-430 code = 756) MEAN PLATELET VOLUME (BEAKER) 9.8 fL 6.0-11.5 (test code = 754) NUCLEATED RED BLOOD CELLS 0 /100 WBC 0-0 (BEAKER) (test code = 413) NEUTROPHILS RELATIVE PERCENT 72 % (BEAKER) (test code = 429) LYMPHOCYTES RELATIVE PERCENT 14 % (BEAKER) (test code = 430) MONOCYTES RELATIVE PERCENT 8 % (BEAKER) (test code = 431) EOSINOPHILS RELATIVE PERCENT 3 % (BEAKER) (test code = 432) BASOPHILS RELATIVE PERCENT 1 % (BEAKER) (test code = 437) NEUTROPHILS ABSOLUTE COUNT 8.63 K/ L 1.80-8.00 H (BEAKER) (test code = 670) LYMPHOCYTES ABSOLUTE COUNT 1.67 K/ L 1.48-4.50 (BEAKER) (test code = 414) MONOCYTES ABSOLUTE COUNT (BEAKER) 0.99 K/ L 0.00-1.30 (test code = 415) EOSINOPHILS ABSOLUTE COUNT 0.35 K/ L 0.00-0.50 (BEAKER) (test code = 416) BASOPHILS ABSOLUTE COUNT (BEAKER) 0.06 K/ L 0.00-0.20 (test code = 417) IMMATURE GRANULOCYTES-RELATIVE 2 % 0-0 H PERCENT (BEAKER) (test code = 2801) Urine [id number] 10:10:00 Test Item Value Reference Range Interpretation Comments Result (test code = 6463-4) No growth [facility] [id number] 06:03:00 Test Item Value Reference Range Interpretation Comments Triglycerides (test 125 mg/dL code = 2571-8) Cholesterol (test code 92 mg/dL = 2093-3) HDL (test code = 27 mg/dL 2085-9) LDL Calculated (test 40 mg/dL code = 58086-5) ТАТЬЯНА (test code = ТАТЬЯНА) Triglyceride Reference Range: Low Risk <150 Borderline 150-199 High Risk 200-499 Very High Risk >=500 Cholesterol Reference Range: Low Risk <200 Borderline 200-239 High Risk >240 HDL Cholesterol Reference Range: Low Risk >=60 High Risk <40 LDL Cholesterol Reference Range: Optimal <100 Near Optimal 100-129 Borderline 130-159 High 160-189 Very High >=190 Product Design Specialist ID - [id number] ID - [id number] ID - [id number] ID - [id number] ID - [id number] ID - [id number] [facility] [id number] 06:03:00 Test Item Value Reference Range Interpretation Comments TRIGLYCERIDES (BEAKER) (test code = 125 mg/dL 540) CHOLESTEROL (BEAKER) (test code = 92 mg/dL 631) HDL CHOLESTEROL (BEAKER) (test code 27 mg/dL = 976) LDL CHOLESTEROL CALCULATED (BEAKER) 40 mg/dL (test code = 633) Triglyceride Reference Range: Low Risk <150 Borderline 150-199 High Risk 200-499 Very High Risk >=500Cholesterol Reference Range: Low Risk <200 Borderline 200-239 High Risk >240HDL Cholesterol Reference Range: Low Risk >=60 High Risk <40LDL Cholesterol Reference Range: Optimal <100 Near Optimal 100-129 Borderline 130-159 High 160-189 Very High >=190 Product Design Specialist ID - [id number] ID - [id number] ID - [id number] ID - [id number] ID - [id number] ID - [id number] W/PLT COUNT & AUTO [id number] 05:38:00 Test Item Value Reference Range Interpretation Comments WHITE BLOOD CELL COUNT (BEAKER) 10.4 K/ L 4.0-10.0 H (test code = 775) RED BLOOD CELL COUNT (BEAKER) 2.70 M/ L 4.20-5.80 L (test code = 761) HEMOGLOBIN (BEAKER) (test code = 8.5 GM/DL 13.0-16.8 L 410) HEMATOCRIT (BEAKER) (test code = 27.5 % 36.0-50.0 L 411) MEAN CORPUSCULAR VOLUME (BEAKER) 101.9 fL 82.0-99.0 H (test code = 753) MEAN CORPUSCULAR HEMOGLOBIN 31.5 pg 27.0-33.0 (BEAKER) (test code = 751) MEAN CORPUSCULAR HEMOGLOBIN CONC 30.9 GM/DL 32.0-36.0 L (BEAKER) (test code = 752) RED CELL DISTRIBUTION WIDTH 15.1 % 12.0-15.0 H (BEAKER) (test code = 412) PLATELET COUNT (BEAKER) (test 263 K/CU MM 150-430 code = 756) MEAN PLATELET VOLUME (BEAKER) 9.8 fL 6.0-11.5 (test code = 754) NUCLEATED RED BLOOD CELLS 0 /100 WBC 0-0 (BEAKER) (test code = 413) NEUTROPHILS RELATIVE PERCENT 76 % (BEAKER) (test code = 429) LYMPHOCYTES RELATIVE PERCENT 13 % (BEAKER) (test code = 430) MONOCYTES RELATIVE PERCENT 8 % (BEAKER) (test code = 431) EOSINOPHILS RELATIVE PERCENT 2 % (BEAKER) (test code = 432) BASOPHILS RELATIVE PERCENT 0 % (BEAKER) (test code = 437) NEUTROPHILS ABSOLUTE COUNT 7.83 K/ L 1.80-8.00 (BEAKER) (test code = 670) LYMPHOCYTES ABSOLUTE COUNT 1.37 K/ L 1.48-4.50 L (BEAKER) (test code = 414) MONOCYTES ABSOLUTE COUNT (BEAKER) 0.80 K/ L 0.00-1.30 (test code = 415) EOSINOPHILS ABSOLUTE COUNT 0.24 K/ L 0.00-0.50 (BEAKER) (test code = 416) BASOPHILS ABSOLUTE COUNT (BEAKER) 0.03 K/ L 0.00-0.20 (test code = 417) IMMATURE GRANULOCYTES-RELATIVE 1 % 0-0 H PERCENT (BEAKER) (test code = 2801) [id number] 19:47:00 Test Item Value Reference Range Interpretation Comments PSA (test code = 2857-1) 4.9 ng/mL 0-4 H ТАТЬЯНА (test code = ТАТЬЯНА) Product Design Specialist ID - [id number] Lab Interpretation (test Abnormal code = 48179-3) [facility] 19:47:00 Test Item Value Reference Range Interpretation Comments PROSTATE SPECIFIC ANTIGEN (BEAKER) 4.9 ng/mL 0.0-4.0 H (test code = 844) Product Design Specialist ID - [id number] 18:56:00 Test Item Value Reference Range Interpretation Comments Ferritin (test code = 4479.50 ng/mL 22-322 H 2276-4) ТАТЬЯНА (test code = ТАТЬЯНА) Product Design Specialist ID - [id number] ID - [id number] Lab Interpretation (test Abnormal code = 04458-8) [facility] CenterFERRITIN2021-[facility]-07 18:56:00 Test Item Value Reference Range Interpretation Comments FERRITIN (BEAKER) (test code = 4479.50 ng/mL 22.00-322.00 H 361) Product Design Specialist ID - [id number] ID - [id number] [id number] 18:33:00 Test Item Value Reference Range Interpretation Comments Vitamin B12 (test code = 919 pg/mL 211-911 H 2132-9) ТАТЬЯНА (test code = ТАТЬЯНА) Product Design Specialist ID - [id number] Lab Interpretation (test Abnormal code = 52593-5) [facility] CenterVITAMIN [id number] 18:33:00 Test Item Value Reference Range Interpretation Comments VITAMIN B12 (BEAKER) (test code = 919 pg/mL 211-911 H 774) Product Design Specialist ID - [id number], [id number] 18:25:00 Test Item Value Reference Range Interpretation Comments Free T4 (test code = 0.90 ng/dL 0.9-1.8 3024-7) ТАТЬЯНА (test code = ТАТЬЯНА) Product Design Specialist ID - [id number] Lab Interpretation (test Normal code = 51249-9) [facility] CenterT4, [id number] 18:25:00 Test Item Value Reference Range Interpretation Comments FREE T4 (BEAKER) (test code = 655) 0.90 ng/dL 0.90-1.80 Product Design Specialist ID - [id number] 18:22:00 Test Item Value Reference Range Interpretation Comments TSH (test code = 5.480 See_Comment [Automated 91342-4) message] The system which generated this result transmit radha reference range : 0.350 - 5.500 uIU/mL. The reference range was not used to interpret this result as normal/abnormal . ТАТЬЯНА (test code = ТАТЬЯНА) Product Design Specialist ID - [id number] Lab Interpretation Normal (test code = 59250-5) [facility] CenterTSH2021-[facility] 18:22:00 Test Item Value Reference Range Interpretation Comments THYROID STIMULATING HORMONE 5.480 uIU/mL 0.350-5.500 (BEAKER) (test code = 772) Product Design Specialist ID - [id number]/S, RENAL, [id number] 12:08:00Please include bladderReason for exam:->hematuria, history of polycystic kidney diseaseShould this be performed at the bedside?->Yes [facility] 1945 Sex: MFINAL REPORT HISTORY: hematuria, history of polycystic kidney disease COMPARISON:None. TECHNIQUE: Grayscale and color spectral Doppler ultrasound of the kidneys and bladder. FINDINGS: The right kidney measures 16.3 x 8.4 x 8.8 cm. Cortical thickness measures 1.3 cm. Multiple anechoic cysts. Possible hydronephrosis. Renal artery and vein are patent. The left kidney measures 14.9 x 8.5 x 6.8 cm. Cortical thickness is difficult to evaluate given the multiple renal cysts. Renal artery and vein are patent. Bladder: Unremarkable. IMPRESSION: Limited exam due to patient's known polycystic renal disease. Possible right hydronephrosis. Recommend CT for further evaluation. Signed: Oliver Machadoeport Verified Date/Time: 08/29/2020 12:08:20 Reading Location: [address] ConsultReading Room US renal [id number] 12:08:00Interface, External Ris In - 08/29/2020 12:19 PM CSTFINAL REPORT HISTORY: hematuria, history of polycystic kidney disease COMPARISON:None. TECHNIQUE: Grayscale and color spectralDoppler ultrasound of the kidneys and bladder. FINDINGS: The right kidney measures 16.3 x 8.4 x 8.8 cm. Cortical thickness measures 1.3 cm. Multiple anechoic cysts. Possible hydronephrosis. Renal artery and vein are patent. The left kidney measures 14.9 x 8.5 x 6.8 cm. Cortical thickness is difficult to evaluate given the multiple renal cysts. Renal artery and vein are patent. Bladder: Unremarkable. IMPRESSION: Limited exam due to patient's known polycystic renal disease. Possible right hydronephrosis. Recommend CT for further evaluation. Signed: Oliver Riggins MDReport Verified Date/Time: 08/29/2020 12:08:20 Reading Location: [address] Consult Reading Room [facility] 2020-08-29 11:42:00 Test Item Value Reference Range Interpretation Comments Hep B S Ab (test code <8.0 See_Comment [Auto mated = 95738-6) message] The system which generated this result transmit radha reference range : <8.0 mIU/mL. e reference range was not used to interpret this result as normal/abnormal . ТАТЬЯНА (test code = ТАТЬЯНА) Product Design Specialist ID - FER M Lab Interpretation Normal (test code = 32175-0) [facility] CenterHEPATITIS B SURFACE [id number] 11:42:00 Test Item Value Reference Range Interpretation Comments HEPATITIS B SURFACE ANTIBODY < mIU/mL <8.0 (BEAKER) (test code = 647) Product Design Specialist ID - FER MReticulocyte [id number] 11:03:00 Test Item Value Reference Range Interpretation Comments % Retic (test code = 62027-9) 1.8 % 0.4-2.9 Lab Interpretation (test code = Normal 27603-3) [facility] CenterRETICULOCYTE [id number] 11:03:00 Test Item Value Reference Range Interpretation Comments RETICULOCYTE COUNT PCT (BEAKER) (test 1.8 % 0.4-2.9 code = 575) Troponin [id number] 05:52:00 Test Item Value Reference Range Interpretation Comments Troponin I (test code = 0.22 ng/mL 0-0.15 08271-6) ТАТЬЯНА (test code = ТАТЬЯНА) Troponin I (TnI) levels must be interpreted in the context of the presenting symptoms and the clinical findings. Elevated TnI levels indicate myocardial damage, but are not specific for ischemic heart disease. Elevated TnI levels are seen in patients with other cardiac conditions (including myocarditis and congestive heart failure), and slight TnI elevations occur in patients with other conditions, including sepsis, renal failure, acidosis, acute neurological disease, and persistent tachyarrhythmia.Opera tor ID - [id number] Lab Interpretation (test Abnormal code = 05928-5) [facility] CenterTRFORMERLY [facility]NIN [id number] 05:52:00 Test Item Value Reference Range Interpretation Comments TROPONIN I (BEAKER) (test code = 0.22 ng/mL 0.00-0.15 397) Troponin I (TnI) levels must be interpreted in the context of the presenting symptoms and the clinical findings. Elevated TnI levels indicate myocardial damage, but are not specific for ischemic heart disease. Elevated TnI levels are seen in patients with other cardiac conditions (including myocarditis and congestive heart failure), and slight TnI elevations occur in patients with other conditions, including sepsis, renal failure, acidosis, acute neurological disease, and persistent tachyarrhythmia.Product Design Specialist ID - [id number] Metabolic [id number] 05:32:00 Test Item Value Reference Range Interpretation Comments Sodium (test code = 138 meq/L 124-649 6545-2) Potassium (test code = 4.5 meq/L 3.6-5.5 2823-3) Chloride (test code = 101 meq/L 98-106 2075-0) CO2 (test code = 21 meq/L -29 8-9) BUN (test code = 26 mg/dL 10- 3094-0) Creatinine (test code 7.04 mg/dL 0.5-1.2 H = 2160-0) Glucose (test code = 95 mg/dL 70-110 2345-7) Calcium (test code = 9.0 mg/dL 8.5-10.5 81132-5) EGFR (test code = 8 mL/min/1.73 [place] [address]-9) NOT ACCURATE CREATININE CLEARANCE IN PREDICTING GLOMERULAR FILTRATION RATE . ESTIMATED GFR I S NOT APPLICABLE FOR DIALYSIS PATIENTS. ТАТЬЯНА (test code = ТАТЬЯНА) Product Design Specialist ID - [id number] ID - [id number] ID - [id number] ID - [id number] ID - [id number] ID - [id number] ID - IIYV79Jxblibvd ID - JBSW86Sgmyhvvc ID - OYXW29Hppwyjgr ID - [id number] ID - [id number] ID - [id number] ID - [id number] Lab Interpretation Abnormal (test code = 26663-2) [facility] METABOLIC [id number] 05:32:00 Test Item Value Reference Range Interpretation Comments SODIUM (BEAKER) 138 meq/L 135-148 (test code = 381) POTASSIUM (BEAKER) 4.5 meq/L 3.6-5.5 (test code = 379) CHLORIDE (BEAKER) 101 meq/L 98-106 (test code = 382) CO2 (BEAKER) (test 21 meq/L 20-29 code = 355) BLOOD UREA NITROGEN 26 mg/dL 10-26 (BEAKER) (test code = 354) CREATININE (BEAKER) 7.04 mg/dL 0.50-1.20 H (test code = 358) GLUCOSE RANDOM 95 mg/dL 70-110 (BEAKER) (test code = 652) CALCIUM (BEAKER) 9.0 mg/dL 8.5-10.5 (test code = 697) EGFR (BEAKER) (test 8 mL/min/1.73 ESTIMAT ED GFR IS code = 1092) sq m NOT ACCURATE CREATININE CLEARANCE IN PREDICTING GLOMERULAR FILTRATION RATE . ESTIMATED GFR I S 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 Product Design Specialist ID - [id number] ID - [id number] ID - [id number] ID - [id number] ID - [id number] ID - [id number] ID - VUXI62Wiwzppgh ID - PEET26Hgyobnsu ID - [id number] ID - NFSA22Lltmsslv ID - KVAK12Qlcklwop ID - [id number] ID - [id number], BRAIN, WITHOUT [id number] 05:08:00Unlisted Reason for Exam - Click Yes and Enter Reason Below->YesUnlisted Reason for Exam->amsCHI [facility] : 1945 Sex: MFINAL REPORT EXAM: CT, BRAIN, WITHOUT CONTRAST INDICATION: Unlisted Reason for Examams TECHNIQUE: CT images from skull base to vertex without IV contrast. This exam was performed according to the departmental dose optimization program which includes automated exposure control, adjustment of the mA and/or kV according to the patient size, and/or use of an iterative reconstruction technique. COMPARISON: None. FINDINGS: Parenchyma: No evidence of acute infarction. Chronic lacunar infarction of the right caudate nucleus. No hemorrhage. No mass or mass effect. Patchy areas of hypoattenuation are present in the cerebral white matter that are nonspecific but compatible with mild chronic microvascular ischemic changes. Mild generalized cerebral parenchymal volume loss. Extra-axial Collection: None Ventricular System: Ex vacuo enlarged without hydrocephalus Osseous Structures: No acute osseous abnormality. Included Orbits: Prior bilateral lens surgery Paranasal Sinuses: Predominantly clear Tympanomastoid Cavities: Normal Other: None IMPRESSION: 1. No acute abnormality on CT head. 2. Chronic lacunar infarction of the right caudate nucleus and background mild chronic microvascular ischemic changes. If there is persistent clinical concern for intracranial pathology, MR examination is recommended for further characterization. Signed: Yessenia Perez [facility] Verified Date/Time: 08/29/2020 05:08:18 CT brain without IV [id number] 05:08:00Interface, External Ris In - 08/29/2020 5:11 AM CSTFINAL REPORT EXAM: CT, BRAIN, WITHOUT CONTRAST INDICATION: Unlisted Reason for Examams TECHNIQUE: CT images from skull base to vertex without IV contrast. This exam was performed according to the departmental dose optimizationprogram which includes automated exposure control, adjustment of the mA and/or kV according to the patient size, and/or use of an iterative reconstruction technique. COMPARISON: None. FINDINGS: Parenchyma: No evidence of acute infarction. Chronic lacunar infarction of the right caudate nucleus. No hemo rrhage. No mass or mass effect. Patchy areas of hypoattenuation are present in the cerebral white matter that are nonspecific but compatible with mild chronic microvascular ischemic changes. Mild generalized cerebral parenchymal volume loss. Extra-axial Collection: None Ventricular System: Ex vacuoenlarged without hydrocephalus Osseous Structures: No acute osseous abnormality. Included Orbits: Prior bilateral lens surgery Paranasal Sinuses: Predominantly clear Tympanomastoid Cavities: NormalOther: None IMPRESSION: 1. No acute abnormality on CT head. 2. Chronic lacunar infarction of the right caudate nucleus and background mild chronic microvascular ischemic changes. If there is persistent clinical concern for intracranial pathology, MR examination is recommended for further characterization. Signed: Yessenia Perez [facility] Verified Date/Time: 08/29/2020 05:08:18 [facility] W/PLT COUNT & AUTO [id number] 04:50:00 Test Item Value Reference Range Interpretation Comments WHITE BLOOD CELL COUNT (BEAKER) 14.1 K/ L 4.0-10.0 H (test code = 775) RED BLOOD CELL COUNT (BEAKER) 2.64 M/ L 4.20-5.80 L (test code = 761) HEMOGLOBIN (BEAKER) (test code = 8.4 GM/DL 13.0-16.8 L 410) HEMATOCRIT (BEAKER) (test code = 27.3 % 36.0-50.0 L 411) MEAN CORPUSCULAR VOLUME (BEAKER) 103.4 fL 82.0-99.0 H (test code = 753) MEAN CORPUSCULAR HEMOGLOBIN 31.8 pg 27.0-33.0 (BEAKER) (test code = 751) MEAN CORPUSCULAR HEMOGLOBIN CONC 30.8 GM/DL 32.0-36.0 L (BEAKER) (test code = 752) RED CELL DISTRIBUTION WIDTH 15.5 % 12.0-15.0 H (BEAKER) (test code = 412) PLATELET COUNT (BEAKER) (test 285 K/CU MM 150-430 code = 756) MEAN PLATELET VOLUME (BEAKER) 10.0 fL 6.0-11.5 (test code = 754) NUCLEATED RED BLOOD CELLS 0 /100 WBC 0-0 (BEAKER) (test code = 413) NEUTROPHILS RELATIVE PERCENT 81 % (BEAKER) (test code = 429) LYMPHOCYTES RELATIVE PERCENT 8 % (BEAKER) (test code = 430) MONOCYTES RELATIVE PERCENT 8 % (BEAKER) (test code = 431) EOSINOPHILS RELATIVE PERCENT 2 % (BEAKER) (test code = 432) BASOPHILS RELATIVE PERCENT 0 % (BEAKER) (test code = 437) NEUTROPHILS ABSOLUTE COUNT 11.50 K/ L 1.80-8.00 H (BEAKER) (test code = 670) LYMPHOCYTES ABSOLUTE COUNT 1.19 K/ L 1.48-4.50 L (BEAKER) (test code = 414) MONOCYTES ABSOLUTE COUNT (BEAKER) 1.08 K/ L 0.00-1.30 (test code = 415) EOSINOPHILS ABSOLUTE COUNT 0.22 K/ L 0.00-0.50 (BEAKER) (test code = 416) BASOPHILS ABSOLUTE COUNT (BEAKER) 0.03 K/ L 0.00-0.20 (test code = 417) IMMATURE GRANULOCYTES-RELATIVE 1 % 0-0 H PERCENT (BEAKER) (test code = 2801) Occult blood, [id number] 03:55:00 Test Item Value Reference Range Interpretation Comments Occult blood (test code = 2335-8) Negative Negative Lab Interpretation (test code = Normal 72459-3) [facility] Center[facility], [id number] 03:55:00 Test Item Value Reference Range Interpretation Comments FECAL OCCULT BLOOD (BEAKER) (test Negative Negative code = 618) Hepatitis B surface [id number] 17:43:00 Test Item Value Reference Range Interpretation Comments HBsAg Screen (test code Nonreactive Nonreactive = 5195-3) ТАТЬЯНА (test code = ТАТЬЯНА) Product Design Specialist ID - YEISON Lab Interpretation (test Normal code = 06073-5) [facility] [id number] 17:43:00 Test Item Value Reference Range Interpretation Comments HEPATITIS B SURFACE ANTIGEN (2) Nonreactive Nonreactive (BEAKER) (test code = 2585) Product Design Specialist ID - MARY JANEROPOGINETTEN [id number] 16:41:00 Test Item Value Reference Range Interpretation Comments TROPONIN I (BEAKER) (test code = 0.26 ng/mL 0.00-0.15 397) Troponin I (TnI) levels must be interpreted in the context of the presenting symptoms and the clinical findings. Elevated TnI levels indicate myocardial damage, but are not specific for ischemic heart disease. Elevated TnI levels are seen in patients with other cardiac conditions (including myocarditis and congestive heart failure), and slight TnI elevations occur in patients with other conditions, including sepsis, renal failure, acidosis, acute neurological disease, and persistent tachyarrhythmia.Product Design Specialist ID - MADISONATROPOЕЛЕНА [id number] 09:49:00 Test Item Value Reference Range Interpretation Comments TROPONIN I (BEAKER) (test code = 0.29 ng/mL 0.00-0.15 397) Troponin I (TnI) levels must be interpreted in the context of the presenting symptoms and the clinical findings. Elevated TnI levels indicate myocardial damage, but are not specific for ischemic heart disease. Elevated TnI levels are seen in patients with other cardiac conditions (including myocarditis and congestive heart failure), and slight TnI elevations occur in patients with other conditions, including sepsis, renal failure, acidosis, acute neurological disease, and persistent tachyarrhythmia.Product Design Specialist ID - RAHMABASI METABOLIC PANEL 2020-08-28 07:01:00 Test Item Value Reference Range Interpretation Comments SODIUM (BEAKER) 135 meq/L 135-148 (test code = 381) POTASSIUM (BEAKER) 4.7 meq/L 3.6-5.5 (test code = 379) CHLORIDE (BEAKER) 100 meq/L 98-106 (test code = 382) CO2 (BEAKER) (test 22 meq/L 20-29 code = 355) BLOOD UREA NITROGEN 25 mg/dL 10-26 (BEAKER) (test code = 354) CREATININE (BEAKER) 7.60 mg/dL 0.50-1.20 H (test code = 358) GLUCOSE RANDOM 80 mg/dL 70-110 (BEAKER) (test code = 652) CALCIUM (BEAKER) 8.6 mg/dL 8.5-10.5 (test code = 697) EGFR (BEAKER) (test 7 mL/min/1.73 ESTIMAT ED GFR IS code = 1092) sq m NOT ACCURATE CREATININE CLEARANCE IN PREDICTING GLOMERULAR FILTRATION RATE . ESTIMATED GFR I S 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 Product Design Specialist ID - [id number] ID - [id number] ID - QQRI37Frtnyzdq ID - DKJH27Tmmupzjb ID - [id number] ID - JBFD91Kkwnpasc ID - BXGI18Ytbdikxb ID - LJIB22Frjtoafg ID - LDUR26Remvbisa ID - NQJU25Jrqhozoq ID - VRRN09Caqjkmte ID - VLRE64Haznfwkm ID - [id number] W/PLT COUNT & AUTO [id number] 06:29:00 Test Item Value Reference Range Interpretation Comments WHITE BLOOD CELL COUNT (BEAKER) 15.0 K/ L 4.0-10.0 H (test code = 775) RED BLOOD CELL COUNT (BEAKER) 2.21 M/ L 4.20-5.80 L (test code = 761) HEMOGLOBIN (BEAKER) (test code = 7.7 GM/DL 13.0-16.8 L 410) HEMATOCRIT (BEAKER) (test code = 22.6 % 36.0-50.0 L 411) MEAN CORPUSCULAR VOLUME (BEAKER) 102.3 fL 82.0-99.0 H (test code = 753) MEAN CORPUSCULAR HEMOGLOBIN 34.8 pg 27.0-33.0 H (BEAKER) (test code = 751) MEAN CORPUSCULAR HEMOGLOBIN CONC 34.1 GM/DL 32.0-36.0 (BEAKER) (test code = 752) RED CELL DISTRIBUTION WIDTH 15.5 % 12.0-15.0 H (BEAKER) (test code = 412) PLATELET COUNT (BEAKER) (test 247 K/CU MM 150-430 code = 756) MEAN PLATELET VOLUME (BEAKER) 9.8 fL 6.0-11.5 (test code = 754) NUCLEATED RED BLOOD CELLS 0 /100 WBC 0-0 (BEAKER) (test code = 413) NEUTROPHILS RELATIVE PERCENT 82 % (BEAKER) (test code = 429) LYMPHOCYTES RELATIVE PERCENT 7 % (BEAKER) (test code = 430) MONOCYTES RELATIVE PERCENT 8 % (BEAKER) (test code = 431) EOSINOPHILS RELATIVE PERCENT 2 % (BEAKER) (test code = 432) BASOPHILS RELATIVE PERCENT 0 % (BEAKER) (test code = 437) NEUTROPHILS ABSOLUTE COUNT 12.28 K/ L 1.80-8.00 H (BEAKER) (test code = 670) LYMPHOCYTES ABSOLUTE COUNT 1.10 K/ L 1.48-4.50 L (BEAKER) (test code = 414) MONOCYTES ABSOLUTE COUNT (BEAKER) 1.18 K/ L 0.00-1.30 (test code = 415) EOSINOPHILS ABSOLUTE COUNT 0.32 K/ L 0.00-0.50 (BEAKER) (test code = 416) BASOPHILS ABSOLUTE COUNT (BEAKER) 0.03 K/ L 0.00-0.20 (test code = 417) IMMATURE GRANULOCYTES-RELATIVE 1 % 0-0 H PERCENT (BEAKER) (test code = 2801) Prothrombin time/[id number] 02:15:00 Test Item Value Reference Interpretation Comments Range Protime (test code = 12.4 See_Comment H Final 5902-2) Information (Auto Output) [Automated message] The system which generated this result transmitted reference range : 9.3 - 12.0 seconds. The reference range was not used to interpret this result as normal/abnormal . INR (test code = 1.12 See_Comment Final 6301-6) Information (Auto Output) [Automated message] The system which generated this result transmitted reference range : <=5.90. The reference range was not used to interpret this result as normal/abnormal . ТАТЬЯНА (test code = RECOMMENDED ТАТЬЯНА) COUMADIN/WARFARIN INR THERAPY RANGESSTANDARD DOSE: 2.0 - 3.0 Includes: PROPHYLAXIS for venous thrombosis, systemic embolization; TREATMENT for venous thrombosis and/or pulmonary embolus.HIGH RISK: Target INR is 2.5-3.5 for patients with mechanical heart valves. Lab Interpretation Abnormal (test code = 46728-5) [facility] CenterPROTHROMBIN TIME/[id number] 02:15:00 Test Item Value Reference Range Interpretation Comments PROTIME (BEAKER) 12.4 seconds 9.3-12.0 H Final Infor mation (test code = 759) (Auto Outp ut) INR (BEAKER) (test 1.12 See_Comment Final Inf ormation code = 370) (Auto Output) [Automated mess age] The system Kranem generated this result transmitted ref erence range: <=5.90. The reference range was not used to int erpret this result as normal/abnormal . RECOMMENDED COUMADIN/WARFARIN INR THERAPY RANGESSTANDARD DOSE: 2.0 - 3.0 Includes: PROPHYLAXIS forvenous thrombosis, systemic embolization; TREATMENT for venous thrombosis and/or pulmonary embolus.HIGH RISK: Target INR is 2.5-3.5 for patients with mechanical heart valves.COMPREHENSIVE METABOLIC [id number] 02:11:00 Test Item Value Reference Range Interpretation Comments TOTAL PROTEIN 6.5 gm/dL 6.0-8.5 (BEAKER) (test code = 770) ALBUMIN (BEAKER) 3.1 g/dL 3.5-5.0 L (test code = 1145) ALKALINE PHOSPHATASE 56 U/L 30-115 (BEAKER) (test code = 346) BILIRUBIN TOTAL 0.5 mg/dL 0.1-1.2 (BEAKER) (test code = 377) SODIUM (BEAKER) (test 137 meq/L 135-148 code = 381) POTASSIUM (BEAKER) 4.7 meq/L 3.6-5.5 (test code = 379) CHLORIDE (BEAKER) 101 meq/L 98-106 (test code = 382) CO2 (BEAKER) (test 25 meq/L 20-29 code = 355) BLOOD UREA NITROGEN 22 mg/dL 10-26 (BEAKER) (test code = 354) CREATININE (BEAKER) 7.01 mg/dL 0.50-1.20 H (test code = 358) GLUCOSE RANDOM 87 mg/dL 70-110 (BEAKER) (test code = 652) CALCIUM (BEAKER) 8.3 mg/dL 8.5-10.5 L (test code = 697) AST (SGOT) (BEAKER) 35 U/L 5-40 (test code = 353) ALT (SGPT) (BEAKER) 30 U/L 5-50 (test code = 347) EGFR (BEAKER) (test 8 mL/min/1.73 ESTIMAT ED GFR IS code = 1092) sq m NOT ACCURATE CREATININE CLEARANCE IN PREDICTING GLOMERULAR FILTRATION RATE . ESTIMATED GFR I S 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 Product Design Specialist ID - [id number] ID - [id number] ID - [id number] ID - QXGQ07Asuborww ID - DBAL57Mnxkylfv ID - KVIU25Hhvnnots ID - UFJB83Znocakfs ID - AJUF36Wqdnkyso ID - WOQV07Slacmgmt ID - [id number] [id number] 02:10:00 Test Item Value Reference Range Interpretation Comments TRIGLYCERIDES (QCoefficientMARQUIS) (test code = 116 mg/dL 540) CHOLESTEROL (Intellution) (test code = 84 mg/dL 631) HDL CHOLESTEROL ([facility]) (test code 23 mg/dL = 976) LDL CHOLESTEROL CALCULATED ([facility]) 38 mg/dL (test code = 633) Triglyceride Reference Range: Low Risk <150 Borderline 150-199 High Risk 200-499 Very High Risk >=500Cholesterol Reference Range: Low Risk <200 Borderline 200-239 High Risk >240HDL Cholesterol Reference Range: Low Risk >=60 High Risk <40LDL Cholesterol Reference Range: Optimal <100 Near Optimal 100-129 Borderline 130-159 High 160-189 Very High >=190 Product Design Specialist ID - [id number] ID - [id number] ID - [id number] Urinalysis w/Microscopic + Reflex to [id number] 02:09:00 Test Item Value Reference Range Interpretation Comments Color, UA (test code = Red 5778-6) Clarity, UA (test code Turbid = 5767-9) Specific [place], UA 1.020 1.001-1.035 (test code = 5811-5) pH, UA (test code = 8.5 5.0-8.0 H 5803-2) Protein, UA (test code >=300 mg/dL Negative A = 54773-5) Glucose, UA (test code 100 mg/dL Negative A = 365) Ketones, UA (test code 15 mg/dL Negative A = 2514-8) Bilirubin, UA (test Positive Negative A code = 91750-4) Blood, UA (test code = Large Negative A 06249-7) Nitrite, UA (test code Positive Negative A = 5802-4) Leukocytes, UA (test Large Negative A code = 5799-2) Urobilinogen, UA (test >=8.0 0.2-1 H code = 49850-7) Bacteria, UA (test code Moderate = 72681-2) RBC, UA (test code = >100 See_Comment [Autom ated 799-7) message] The sy stem which generated this result transmitted reference range : /HPF. The refer ence range was not u sed to interpret th is result as normal/abnormal . WBC, UA (test code = 10-20 See_Comment [Autom ated 94965-5) message] The sy stem which generated this result transmitted reference range : /HPF. The refer ence range was not u sed to interpret th is result as normal/abnormal . SQUAMOUS EPITHELIAL 5-10 See_Comment [Automa radha (test code = 40868-9) messag e] The system which generated this result transmitted reference range : /HPF. The refer ence range was not u sed to interpret th is result as normal/abnormal . Specimen Source (test code = 2795) Lab Interpretation Abnormal (test code = 88120-6) [facility]LEX URINE [id number] 02:09:00 Test Item Value Reference Range Interpretation Comments COLOR (BEAKER) (test code = 470) Red CLARITY (BEAKER) (test code = Turbid 469) SPECIFIC GRAVITY UA (BEAKER) 1.020 1.001-1.035 (test code = 468) PH UA (BEAKER) (test code = 467) 8.5 5.0-8.0 H PROTEIN UA (BEAKER) (test code = >=300 mg/dL Negative A 464) GLUCOSE UA (BEAKER) (test code = 100 mg/dL Negative A 365) KETONES UA (BEAKER) (test code = 15 mg/dL Negative A 371) BILIRUBIN UA (BEAKER) (test code Positive Negative A = 462) BLOOD UA (BEAKER) (test code = Large Negative A 461) NITRITE UA (BEAKER) (test code = Positive Negative A 465) LEUKOCYTE ESTERASE UA (BEAKER) Large Negative A (test code = 466) UROBILINOGEN UA (BEAKER) (test >= mg/dL 0.2-1.0 H code = 463) BACTERIA (BEAKER) (test code = Moderate 517) RBC UA-MANUAL (BEAKER) (test code >100 /HPF = 1659) WBC UA-MANUAL (BEAKER) (test code 10-20 /HPF = 1661) SQUAMOUS EPITHELIAL MANUAL 5-10 /HPF (BEAKER) (test code = 1663) SOURCE(BEAKER) (test code = 2795) Hepatic function [id number] 02:07:00 Test Item Value Reference Range Interpretation Comments Protein, Total (test 6.5 See_Comment [Autom ated code = 2885-2) message] The system which generated this result transmit radha reference range : 6.0 - 8.5 gm/dL . The reference range was not u sed to interpret th is result as normal/abnormal . Albumin (test code = 3.1 g/dL 3.5-5 L 77579-9) Total Bilirubin (test 0.5 mg/dL 0.1-1.2 code = 1975-2) Bilirubin, Direct 0.3 mg/dL 0-0.4 (test code = 1968-7) Alkaline Phosphatase 56 U/L 30-115 (test code = 6768-6) AST (test code = 35 U/L 5-40 1920-8) ALT (test code = 30 U/L 5-50 1742-6) ТАТЬЯНА (test code = ТАТЬЯНА) Product Design Specialist ID - [id number] ID - [id number] ID - JSUV05Ksirszvg ID - NAKK05Ygckdsxa ID - TFNK31Djgmdwha ID - ZTZX76Qcapkgxm ID - [id number] Lab Interpretation Abnormal (test code = 21165-0) [facility] CenterHEPAT[facility] FUNCTION [id number] 02:07:00 Test Item Value Reference Range Interpretation Comments TOTAL PROTEIN (BEAKER) (test code = 6.5 gm/dL 6.0-8.5 770) ALBUMIN (BEAKER) (test code = 1145) 3.1 g/dL 3.5-5.0 L BILIRUBIN TOTAL (BEAKER) (test code 0.5 mg/dL 0.1-1.2 = 377) BILIRUBIN DIRECT (BEAKER) (test 0.3 mg/dL 0.0-0.4 code = 706) ALKALINE PHOSPHATASE (BEAKER) (test 56 U/L 30-115 code = 346) AST (SGOT) (BEAKER) (test code = 35 U/L 5-40 353) ALT (SGPT) (BEAKER) (test code = 30 U/L 5-50 347) Product Design Specialist ID - [id number] ID - QIMT92Mhyzighy ID - VYUW08Lnuogtrj ID - INXS08Fibbuohd ID - IKVU78Pvherlgg ID - ZGTH08Cerogopd ID - SJTX74Kmtcnticql A1c 2020-08-28 01:48:00 Test Item Value Reference Range Interpretation Comments Hemoglobin A1C (test code 4.8 % 4.3-6.1 = 4548-4) ТАТЬЯНА (test code = ТАТЬЯНА) Product Design Specialist ID - [id number] Lab Interpretation (test Normal code = 70118-9) [facility] CenterHEMOGLOBIN [id number] 01:48:00 Test Item Value Reference Range Interpretation Comments HEMOGLOBIN A1C (BEAKER) (test code = 4.8 % 4.3-6.1 368) Product Design Specialist ID - [id number] 01:42:00 Test Item Value Reference Range Interpretation Comments MAGNESIUM (BEAKER) (test code = 2.2 mg/dL 1.5-3.0 627) Product Design Specialist ID - [id number] ID - [id number] ID - GIUL84Zdjhbgkr ID - [id number] [id number] 01:39:00 Test Item Value Reference Range Interpretation Comments Phosphorus (test code = 5.0 mg/dL 2.5-4.5 H 2777-1) ТАТЬЯНА (test code = ТАТЬЯНА) Product Design Specialist ID - [id number] Lab Interpretation (test Abnormal code = 84562-1) [facility] CenterPHOSPHORUS2021-03-06 01:39:00 Test Item Value Reference Range Interpretation Comments PHOSPHORUS (BEAKER) (test code = 5.0 mg/dL 2.5-4.5 H 604) Product Design Specialist ID - [id number] W/PLT COUNT & AUTO [id number] 01:37:00 Test Item Value Reference Range Interpretation Comments WHITE BLOOD CELL COUNT (BEAKER) 13.6 K/ L 4.0-10.0 H (test code = 775) RED BLOOD CELL COUNT (BEAKER) 2.29 M/ L 4.20-5.80 L (test code = 761) HEMOGLOBIN (BEAKER) (test code = 7.4 GM/DL 13.0-16.8 L 410) HEMATOCRIT (BEAKER) (test code = 22.7 % 36.0-50.0 L 411) MEAN CORPUSCULAR VOLUME (BEAKER) 99.1 fL 82.0-99.0 H (test code = 753) MEAN CORPUSCULAR HEMOGLOBIN 32.3 pg 27.0-33.0 (BEAKER) (test code = 751) MEAN CORPUSCULAR HEMOGLOBIN CONC 32.6 GM/DL 32.0-36.0 (BEAKER) (test code = 752) RED CELL DISTRIBUTION WIDTH 15.5 % 12.0-15.0 H (BEAKER) (test code = 412) PLATELET COUNT (BEAKER) (test 258 K/CU MM 150-430 code = 756) MEAN PLATELET VOLUME (BEAKER) 9.7 fL 6.0-11.5 (test code = 754) NUCLEATED RED BLOOD CELLS 0 /100 WBC 0-0 (BEAKER) (test code = 413) NEUTROPHILS RELATIVE PERCENT 82 % (BEAKER) (test code = 429) LYMPHOCYTES RELATIVE PERCENT 8 % (BEAKER) (test code = 430) MONOCYTES RELATIVE PERCENT 7 % (BEAKER) (test code = 431) EOSINOPHILS RELATIVE PERCENT 2 % (BEAKER) (test code = 432) BASOPHILS RELATIVE PERCENT 0 % (BEAKER) (test code = 437) NEUTROPHILS ABSOLUTE COUNT 11.14 K/ L 1.80-8.00 H (BEAKER) (test code = 670) LYMPHOCYTES ABSOLUTE COUNT 1.10 K/ L 1.48-4.50 L (BEAKER) (test code = 414) MONOCYTES ABSOLUTE COUNT (BEAKER) 0.96 K/ L 0.00-1.30 (test code = 415) EOSINOPHILS ABSOLUTE COUNT 0.24 K/ L 0.00-0.50 (BEAKER) (test code = 416) BASOPHILS ABSOLUTE COUNT (BEAKER) 0.03 K/ L 0.00-0.20 (test code = 417) IMMATURE GRANULOCYTES-RELATIVE 1 % 0-0 H PERCENT (BEAKER) (test code = 2801) VUL-[id number] 00:00:00Ordered by an unspecified provider.[facility] CenterTISSUE [id number] 11:07:00Surgical Pathology Report Case: [id number] Authorizing Provider: Bin Acevedo, Collected: 02/12/2020 09:33 AM OrderingLocation: [facility] Received: 02/12/2020 10:58 AM PERIOPERATIVE SERVICES Pathologist: Carlos Betancourt MD Specimen: Carotid, Left, LEFT CAROTID PLAQUE ARTERY, LEFT CAROTID, ENDARTERECTOMY:CALCIFIC ATHEROSCLEROTIC PLAQUE Signing Pathologist Direct Phone Line: [phone] signed by Carlos Betancourt MD on 02/17/2020 at 11:07 [id number]; 10890Mbjy carotid stenosis Carotid, LeftA. Received fresh labeled with the patient's name, medical record number and "parotid, left" is a previously incised portion of yellow plaque measuring 1.6 cm in length and 0.8 cm in diameter. Specimen is serially sectioned to reveal calcifications measuring up to 0.2 cm in thickness. Speedboat Driver sections are submitted in A1, following decalcification.SATISH [place], KRIS (ASCP)PerformedHEPATITIS B SURFACE [id number] 14:11:00 Test Item Value Reference Range Interpretation Comments HEPATITIS B SURFACE ANTIGEN (2) Nonreactive Nonreactive (BEAKER) (test code = 2585) Specimen is considered negative for HBsAg.POC-Glucose [id number] 13:03:00 Test Item Value Reference Range Interpretation Comments POC-Glucose Meter (test 83 mg/dL 70-110 : TE STED AT [facility] code = 1538) [address] [facility], [address]: Product Design Specialist/Techni justus ID = [id number] for IKER, JOIE Lab Interpretation (test Normal code = 34430-5) [facility] CenterPOCT-GLUCOSE [id number] 13:03:00 Test Item Value Reference Range Interpretation Comments POC-GLUCOSE METER 83 mg/dL 70-110 : TESTED A T [facility] [address] (BEAKER) (test code = [facility], 1538) [address]: Product Design Specialist/Techni justus ID = [id number] for ELGI N, JOIE POC ACTIVATED CLOTTING [id number] 06:30:00 Test Item Value Reference Range Interpretation Comments Activated Clotting Time 235 sec : 74 -137 seconds, (test code = 441) Baseline: TESTED AT [facility] [address] [facility], [address]: Product Design Specialist/Techni justus ID = [id number] for DON FARLEY [facility] CenterPO[facility]-[id number] 06:30:00 Test Item Value Reference Range Interpretation Comments ACTIVATED CLOTTING TIME 235 sec : 74 -137 seconds, (BEAKER) (test code = Baseli ne: TESTED AT 441) [facility] [address] [facility], [address]: Product Design Specialist/Techni justus ID = [id number] for DON FARLEY BASIC METABOLIC [id number] 06:01:00 Test Item Value Reference Range Interpretation [...] S 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 Product Design Specialist ID - PIAYA LPOCT-GLUCOSE [id number] 06:00:00 Test Item Value Reference Range Interpretation Comments POC-GLUCOSE METER 94 mg/dL 70-110 : TESTED A T [place] [address] (BEAKER) (test code = [facility], 1538) [address]: Product Design Specialist/Techni justus ID = [id number] for Aren Cheatham [id number] 05:49:00 Test Item Value Reference Range Interpretation Comments MAGNESIUM (BEAKER) (test code = 1.9 mg/dL 1.6-2.6 627) Product Design Specialist ID - LIAM PYzqmeerz7799-04-03 05:31:00 Test Item Value Reference Range Interpretation Comments Cortisol, Total (test code 8.3 ug/dL 3.7-19.4 = 2755) ТАТЬЯНА (test code = ТАТЬЯНА) Product Design Specialist ID - [id number] Lab Interpretation (test Normal code = 09087-7) [facility] CenterCORTISOL2020-08-21 05:31:00 Test Item Value Reference Range Interpretation Comments CORTISOL, TOTAL (BEAKER) (test code 8.3 ug/dL 3.7-19.4 = 2755) Product Design Specialist ID - [id number] (Hemogram only)2020-02-13 03:06:00 Test Item Value Reference Range Interpretation Comments WBC (test code = 6690-2) 10.4 See_Comment [A utomated message] The system Kranem generated this result transmitted ref erence range: 3.5 - 10 .5 K/L. The refe rence range was not u sed to interpret this result as normal/abnor mal. RBC (test code = 789-8) 2.61 See_Comment L [Au tomated message] The system Kranem generated this result transmitted ref erence range: 4.63 - 6 .08 M/L. The refe rence range was not u sed to interpret this result as normal/abnor mal. MCHC (test code = 786-4) 31.1 See_Comment L [A utomated message] The system Kranem generated this result transmitted ref erence range: [...] See_Comment [Aut omated message] 777-3) The system Kranem generated this result transmitted ref erence range: 150 - 45 0 K/CU MM. The referen ce range was not u sed to interpret this result as normal/abnor mal. MPV (test code = 9.8 fL 9.4-12.4 15316-9) nRBC (test code = 413) 0 See_Comment [Aut omated message] The system Kranem generated this result transmitted ref erence range: 0 - 0 /1 00 WBC. The refere nce range was not u sed to interpret this result as normal/abnor mal. Lab Interpretation (test Abnormal code = 45296-1) [facility] (HEMOGRAM ONLY)2020-02-13 03:06:00 Test Item Value [...] (test code = 413) TSH/Free T4 If [id number] 02:45:00 Test Item Value Reference Range Interpretation Comments TSH (test code = 4.682 See_Comment [Automated 60828-0) message] The system which generated this result transmit radha reference range : 0.350 - 4.940 uIU/mL. The reference range was not used to interpret this result as normal/abnormal . ТАТЬЯНА (test code = ТАТЬЯНА) Product Design Specialist ID - LIAM L Lab Interpretation Normal (test code = 74895-9) [facility] CenterTSH/FREE T4 IF [id number] 02:45:00 Test Item Value Reference Range Interpretation Comments THYROID STIMULATING HORMONE 4.682 uIU/mL 0.350-4.940 (BEAKER) (test code = 772) Product Design Specialist ID - JHONATANAYA LPOCT-GLUCOSE [id number] 00:32:00 Test Item Value Reference Range Interpretation Comments POC-GLUCOSE METER 82 mg/dL 70-110 : TESTED A T [facility] [address] (BEAKER) (test code = CINDYRENE ANNA ID, 1538) [address]: Product Design Specialist/Techni justus ID = [id number] for Aren Cheatham Blood gas, [id number] 18:26:00 Test Item Value Reference Range Interpretation Comments pH, Arterial (test code 7.31 7.35-7.45 L = 2744-1) pCO2, Arterial (test 45 See_Comment [Autom ated code = 2019-8) message] The system which generated this result transmitted reference range : 35 - 45 mmHg. The reference range was not used to interpret this result as normal/abnormal . pO2, Arterial (test 87 See_Comment [Automa radha code = 2703-7) message] The system which [...] % Lab Interpretation Abnormal (test code = 41764-2) [facility] CenterBLOOD GAS, [id number] 18:26:00 Test Item Value Reference Range Interpretation [...] (BEAKER) (test code = 1819) 21.0 % COMPREHENSIVE METABOLIC [id number] 18:16:00 Test Item Value Reference Range Interpretation [...] S 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 Product Design Specialist ID - NJLRQAOXEOXZ9702-57-48 18:14:00 Test Item Value Reference Range Interpretation Comments MAGNESIUM (BEAKER) (test code = 1.8 mg/dL 1.6-2.6 627) Product Design Specialist ID - NTPCalcium, Kjjuuax4362-56-54 18:02:00 Test Item Value Reference Range Interpretation Comments Calcium, Ion (test code = 1994-3) 1.14 mmol/L 1.12-1.27 pH, Blood (test code = 98648-3) 7.32 [facility] CenterCAL[facility], [id number] 18:02:00 Test Item Value Reference Range Interpretation Comments CALCIUM IONIZED (BEAKER) (test 1.14 mmol/L 1.12-1.27 code = 698) PH, BLOOD (BEAKER) (test code = 7.32 1810) [id number] 18:01:00 Test Item Value Reference Interpretation Comments Range Protime (test code = 15.7 See_Comment H [Autom ated 3602-2) message] The system which generated this result transmitted reference range : 11.9 - 14.2 seconds. The reference range was not used to interpret this result as normal/abnormal . INR (test code = 1.29 See_Comment [Automated 9631-6) message] The system which generated this result transmitted reference range : <=5.90. The reference range was not used to interpret this result as normal/abnormal . PTT (test code = 32.4 See_Comment [Automated 66882-0) message] The system which generated this result [...] valves. Lab Interpretation Abnormal (test code = 33000-0) [id number]:01:00 Test Item Value Reference Range Interpretation [...] (BEAKER) (test code = 413) HGB/HCT (H&H)-Stat [id number] 10:37:00 Test Item Value Reference Range Interpretation Comments Hemoglobin (test code = 786-4) 9.2 g/dL 13-16.8 L Hematocrit (test code = 4544-3) 27.0 % 40-50 L Lab Interpretation (test code = Abnormal 49930-2) [facility] Center[facility], [id number] 10:37:00 Test Item Value Reference Range Interpretation [...] 1819) 60.0 % HGB/HCT (H&H) - STAT [id number] 10:37:00 Test Item Value Reference Range Interpretation Comments HEMOGLOBIN (BEAKER) (test code = 9.2 g/dL 13.0-16.8 L 410) HEMATOCRIT (BEAKER) (test code = 27.0 % 40.0-50.0 L 411) Glucose-Stat [id number] 10:36:00 Test Item Value Reference Range Interpretation Comments Glucose (test code = 2345-7) 104 mg/dL 70-110 Lab Interpretation (test code = Normal 74337-6) [facility] [id number] 10:36:00 Test Item Value Reference Range Interpretation Comments Sodium (test code = 2951-2) 137 meq/L 136-145 Lab Interpretation (test code = Normal 88437-2) [facility] Center[facility] [id number] 10:36:00 Test Item Value Reference Range Interpretation Comments Potassium (test code = 2823-3) 4.0 meq/L 3.6-5.5 Lab Interpretation (test code = Normal 87086-2) [facility] [id number] 10:36:00 Test Item Value Reference Range Interpretation Comments GLUCOSE RANDOM (BEAKER) (test code 104 mg/dL 70-110 = 652) SODIUM NA-STAT [id number] 10:36:00 Test Item Value Reference Range Interpretation Comments SODIUM (BEAKER) (test code = 381) 137 meq/L 136-145 POTASSIUM-STAT [id number] 10:36:00 Test Item Value Reference Range Interpretation Comments POTASSIUM (BEAKER) (test code = 4.0 meq/L 3.6-5.5 379) SARS-CoV2/RT-PCR (Asymptomatic ONLY)2020-02-12 08:04:00 Test Item Value Reference Range Interpretation Comments SARS-COV2/RT-PCR Negative Not Detected, (test code = Negative, See 58023-5) external report for linked test SARS-COV-2 [facility] PERFORMING LAB (test code = 36068-4) ТАТЬЯНА (test code = Negative results do [...] of the Act. Fact Sheet for Healthcare Providers:https://www.[employer]/Documents/Xper t%20Xpress%20SARS%20CoV- 2/Fact%20Sheets/302-3802 %91PHEX-PHW-1%20HEALTHCA RE%20PROVIDERS%20FACT%20 SHEET.pdf Fact Sheet for Healthcare Patients:https://www.DNA Guide/Documents/Xpert %20Xpress%20SARS%20CoV-2 /Fact%20Sheets/302-3801% 98HHGQ-KZG-5%20PATIENT%2 0FACT%20SHEET.pdf Performing Laboratory:[facility] [place] [address] [facility] HospitalARS-[facility]OV2/[facility] ([facility])2020-02-12 08:04:00 Test Item Value Reference Range Interpretation Comments SARS-COV2/RT-PCR (test code Negative Not Detected, Negative, = 3637275) See external report for linked test SARS-COV-2 PERFORMING LAB [facility] (test code = 4664842) Negative results do not preclude SARS-CoV-2 infection [...] of the Act.Fact Sheet for Healthcare Pro viders:https://www.[employer]/Documents/Xpert%20Xpress%20SARS%20CoV-2/Fact%20Sh eets/302-3802%23MODZ-JMD-0%20HEALTHCARE%20PROVIDERS%20FACT%20SHEET.pdfFact Sheet for Healthcare Patients:https://www.BoxT[employer].L[employer]/Documents/Xpert%20Xpress%20SARS%20CoV-2/Fact%20Sheets/302-3801%20SARS-COV -2%20PATIENT%20FACT%20SHEET.pdfPerforming Laboratory:[facility] [place], [place] [address]IIQPS METABOLIC [id number] 07:28:00 Test Item Value Reference Range Interpretation [...] S 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 Product Design Specialist ID - [id number] W/PLT COUNT & AUTO [id number] 07:21:00 Test Item Value Reference Range Interpretation [...] (test code = 2801) Type and screen, [id number] 07:19:00 Test Item Value Reference Range Interpretation Comments ABO/RH AUTOMATED (BEAKER) (test O POSITIVE code = 2260) Ab Scrn (test code = 890-4) NEGATIVE [facility] CenterH[facility] - STAT [id number] 06:45:00 Test Item Value Reference Range Interpretation Comments HEMOGLOBIN (BEAKER) (test code = 11.3 g/dL 13.0-16.8 L 410) HEMATOCRIT (BEAKER) (test code = 33.0 % 40.0-50.0 L 411) GLUCOSE-STAT [id number] 06:42:00 Test Item Value Reference Range Interpretation Comments GLUCOSE RANDOM (BEAKER) (test code 103 mg/dL 70-110 = 652) POTASSIUM-STAT [id number] 06:42:00 Test Item Value Reference Range Interpretation Comments POTASSIUM (BEAKER) (test code = 4.8 meq/L 3.6-5.5 379) POCT-GLUCOSE [id number] 05:51:00 Test Item Value Reference Range Interpretation Comments POC-GLUCOSE METER 108 mg/dL 70-110 : TESTED A T [facility] 6720 (BEAKER) (test code [facility], = 1538) 67093: Product Design Specialist/Techni justus ID = [id number] for JORD AN, LACRYSTAL Electrocardiogram, [id number] 12:45:46Interface, External Ris In - 02/03/2020 12:45 PM CDTVentricular Rate 72 BPMAtrial Rate 72 BPMP-R Interval 172 msQRS Duration 92 msQ-T Interval 396 msQTC Calculation(Bazett) 433 msP [place] 63 degreesR [place] 55 degreesT [place] 73 degreesNormal sinus rhythmNormal ECGNo previous ECGs availableConfirmed by MD Almaguer Roberto ([id number]) on 02/03/2020 12:45:38 [facility]
[2020-09-27] MEDS ORDERED: LEVALBUTEROL 1.25 MG/3 ML NEB ONE (11:53)
[2020-09-27] MEDS ORDERED: METHYLPREDNISOLONE 125 MG INJ ONE (11:53)
--- NOTE | 2020-09-27 12:02 | RAD REPORT ---
EXAM DESCRIPTION: RAD - Chest Single View - 09/27/2020 11:39 am CLINICAL HISTORY: HEMOPTYSIS TECHNIQUE: AP portable chest image was obtained 09/27/2020 11:39 am . FINDINGS: Consolidated mass has developed in the left midlung field since the prior examination. Thi s is superimposed on extensive fibro emphysematous lung change. Patient may have some patchy acute in filtrate in the right midlung field as well. Acute pneumonia is the most likely etiology. A malignant mass with not typically develop in a 1 month interval. Heart and vasculature are normal. No measurable pleural effusion and no pneumothorax. No acute bony abnormality seen. No acute aortic findings suspected. IMPRESSION: Left midlung field dense consolidated mass most likely an acute pneumonia. No cavitation component seen. Patchy right mid lung field interstitial opacification superimposed on baseline fibrosis.
[2020-09-27 12:20] LABS: Basophils % 0.3 % (0-1.3); Lymphocytes % 10.1 % (15.3-44.8); MPV 8.3 fL (7.6-11.3); RBC Red Blood Cell Count 2.52 M/uL (4.33-5.43)
[2020-09-27 12:23] LABS: Protime INR 1.12
[2020-09-27 12:33] LABS: Potassium 4.1 mmol/L (3.5-5.1)
[2020-09-27] MEDS ORDERED: AZITHROMYCIN IV 500 MG in NA CHLORIDE 0.9% 250 ML IVPB ONE (13:00)
[2020-09-27] MEDS ORDERED: CEFTRIAXONE/SWI 1gm 1 GM/10 ML SYR ONE (13:08)
--- NOTE | 2020-09-27 13:08 | ER ---
Nurse's Notes [facility] Name: Robbie Kelly Age: 75 yrs Sex: Male : 1945 Arrival Date: 09/27/2020 Time: 10:54 Bed 3 Private MD: Diagnosis: Hypoxemia;Pneumonia, unspecified organism Presentation: 09/27 10:55 Chief complaint: EMS states: pt was at [facility] getting his dialysis, did complete his tw2 dialysis, they noted him to have low SPo2 at 86% RA, pt refused nc, we placed him on a mask at 3L return to 96%, pt has had a cough and spitting up bright red blood also noted bright red blood in urine, pcp suspects possible bladder CA, we gave 250ml NS. Coronavirus screen: Client presents with at least one sign or symptom that may indicate coronavirus-19. Standard/surgical mask placed on the client. Provider contacted for isolation considerations. At this time, the client does not indicate any symptoms associated with coronavirus-19. Ebola Screen: Patient denies travel to an Ebola-affected area in the 21 days before illness onset. Initial Sepsis Screen: Does the patient meet any 2 criteria? HR > 90 bpm. No. Patient's initial sepsis screen is negative. Does the patient have a suspected source of infection? No. Patient's initial sepsis screen is negative. Risk Assessment: Do you want to hurt yourself or someone else? Patient reports no desire to harm self or others. Onset of symptoms was September 27, 2020. 10:55 Method Of Arrival: EMS: [facility] tw2 10:55 Acuity: DADA 3 tw2 Triage Assessment: 11:31 General: Appears in no apparent distress. Behavior is calm, cooperative, appropriate tw2 for age. Pain: Denies pain. EENT: No signs and/or symptoms were reported regarding the EENT system. Neuro: Level of Consciousness is awake, alert, obeys commands, Oriented to person, place, time, situation. Cardiovascular: Patient's skin is warm and dry. Dialysis shunt: in the right arm. Respiratory: Airway is patent Respiratory effort is Respiratory pattern is regular, symmetrical. GI: No signs and/or symptoms were reported involving the gastrointestinal system. : No signs and/or symptoms were reported regarding the genitourinary system. Derm: No signs and/or symptoms reported regarding the dermatologic system. Musculoskeletal: Range of motion: intact in all extremities. Historical: - Allergies: 11:06 No Known Allergies; tw2 - Home Meds: 11:06 levothyroxine 88 mcg oral tab 1 tab once daily [Active]; metoprolol tartrate 50 mg Oral tw2 tab 1 tab once daily for on days that he does not have dialysis [Active]; atorvastatin 40 mg oral tab 1 tab once daily [Active]; oxybutynin chloride 5 mg Oral tab 1 tab 3 times per day [Active]; folic acid 0.8 mg Oral cap [Active]; renal vitamin [Active]; tamsulosin 0.4 mg oral cp24 1 cap once daily [Active]; hydroxyzine HCl 25 mg Oral tab 1 tab 4 times per day [Active]; Ventolin HFA 90 mcg/actuation Nebulizer HFAA 1 puff every 4 hours [Active]; - PMHx: 11:06 Anemia; COPD; Dialysis; M,W,F; Hypertension; Hypothyroidism; POLYCYSTIC KIDNEY DISEASE; tw2 RENAL FAILURE; - Immunization history:: Adult Immunizations. - Social history:: Smoking status: . - Family history:: not pertinent. - Hospitalizations: : No recent hospitalization is reported. Screenin:06 Abuse screen: Denies threats or abuse. Nutritional screening: No deficits noted. tw2 Tuberculosis screening: No symptoms or risk factors identified. Fall Risk None identified. Assessment: 11:20 General: Appears in no apparent distress. Behavior is calm, cooperative. Pain: Denies hb pain. Neuro: Level of Consciousness is awake, alert, obeys commands, Oriented to person, place, time, situation. Cardiovascular: Capillary refill < 3 seconds Patient's skin is warm and dry. Rhythm is sinus tachycardia. Respiratory: Reports shortness of breath on exertion Respiratory effort is even, unlabored, Respiratory pattern is regular, symmetrical. GI: No signs and/or symptoms were reported involving the gastrointestinal system. : No signs and/or symptoms were reported regarding the genitourinary system. EENT: No signs and/or symptoms were reported regarding the EENT system. Derm: Skin is pink, warm \T\ dry. Musculoskeletal: No signs and/or symptoms reported regarding the musculoskeletal system. 12:30 Reassessment: Patient appears in no apparent distress at this time. No changes from hb previously documented assessment. Patient and/or family updated on plan of care and expected duration. Pain level reassessed. 14:00 Reassessment: Patient appears in no apparent distress at this time. No changes from tw2 previously documented assessment. Patient and/or family updated on plan of care and expected duration. Pain level reassessed. 15:00 Reassessment: Patient appears in no apparent distress at this time. No changes from tw2 previously documented assessment. Patient and/or family updated on plan of care and expected duration. Pain level reassessed. 16:00 Reassessment: Patient appears in no apparent distress at this time. No changes from tw2 previously documented assessment. Patient and/or family updated on plan of care and expected duration. Pain level reassessed. 17:00 Reassessment: Patient appears in no apparent distress at this time. No changes from tw2 previously documented assessment. Patient and/or family updated on plan of care and expected duration. Pain level reassessed. 18:15 Reassessment: Patient appears in no apparent distress at this time. No changes from hb previously documented assessment. Patient and/or family updated on plan of care and expected duration. Pain level reassessed. 19:08 Reassessment: Patient appears in no apparent distress at this time. patient informed mg2 about the room assignment. Vital Signs: 10:55 BP 134 / 69; Pulse 118; Resp 20; Temp 97.8(TE); Pulse Ox 86% on R/A; tw2 11:40 BP 125 / 73; Pulse 123; Resp 20; Pulse Ox 98% 3 lpm ; tw2 11:40 Pulse 111; tw2 13:00 BP 126 / 76; Pulse 112; Resp 17; Pulse Ox 95% 3 lpm ; hb 13:32 Pulse Ox 66% on R/A; hb 14:00 BP 128 / 80; Pulse 107; Resp 17; Pulse Ox 94% 3 lpm ; hb 15:00 BP 141 / 53; Pulse 101; Resp 19; Pulse Ox 94% 3 lpm ; tw2 16:00 BP 111 / 94; Pulse 103; Resp 17; Pulse Ox 98% 3 lpm ; tw2 17:00 BP 152 / 77; Pulse 115; Resp 19; Pulse Ox 93% 3 lpm ; tw2 18:31 BP 156 / 75; Pulse 109; Resp 18; Pulse Ox 96% 3 lpm ; hb 19:09 BP 128 / 70; Pulse 109; Resp 20; Temp 98; Pulse Ox 98% on Simple Mask; mg2 10:55 pt placed on o2 via NRB at 4L, at 96% at this time, provider notified tw2 ED Course: 10:54 Patient arrived in ED. tw2 10:56 Gopal Sanchez MD is Attending Physician. rn 10:59 Triage completed. tw2 11:06 Arm band placed on. tw2 11:06 Call light in reach. monitoring tech on. Pulse ox on. NIBP on. tw2 11:30 Maintain EMS IV. Dressing intact. Good blood return noted. Site clean \T\ dry. Gauge \T\ tw 2 site: 18 g RIGHT upper arm. 11:39 XRAY Chest (1 view) In Process Unspecified. EDMS 12:00 Karyn Cardoso RN is Primary Nurse. tw2 12:42 Notified ED physician of a critical lab result(s). creatinine 5.29. tw2 13:06 Angus Sanchez MD is Hospitalizing Provider. rn 13:22 CT Chest Wo Con In Process Unspecified. EDMS 15:08 Inserted saline lock: 22 gauge in right upper arm, using aseptic technique. hb 19:10 No provider procedures requiring assistance completed. Patient admitted, IV remains in mg2 place. 19:35 Primary Nurse role handed off by Karyn Cardoso RN mw2 Administered Medications: 11:40 Drug: SOLU-Medrol 125 mg Route: IVP; Site: right antecubital; hb 12:10 Follow up: Response: No adverse reaction hb 11:40 Drug: Xopenex 1.25 mg Route: Inhalation; hb 12:15 Follow up: Response: No adverse reaction hb 13:20 Drug: Rocephin (cefTRIAXone) 1 grams Route: IV; Rate: calculated rate; Site: right hb upper arm; 13:21 Follow up: IV Status: Completed infusion; IV Intake: 10ml hb 14:22 Drug: Zithromax (azithromycin) 500 mg Route: IVPB; Infused Over: 1 hrs; Site: right upper arm; 15:22 Follow up: Response: No adverse reaction; IV Status: Completed infusion; IV Intake: tw2 250ml Intake: 13:21 IV: 10ml; Total: 10ml. hb 15:22 IV: 250ml; Total: 260ml. tw2 Outcome: 13:07 Decision to Hospitalize by Provider. rn 19:47 Admitted to Med/surg accompanied by tech, via wheelchair, room 212, with oxygen, with mg2 chart, Report called to LEXII Garsia 19:47 Condition: stable 19:47 Instructed on the need for admit, Demonstrated understanding of instructions. 19:47 Patient left the ED. mg2 Signatures: Dispatcher [employer] EDMS Gopal Sanchez MD MD rn Baxter, Heather, RN RN Karyn Cardoso RN RN tw2 Gabriela Mccarty 2 Neto Valentin RN RN mg2 Corrections: (The following items were deleted from the chart) 12:01 11:40 BP 125 / 73; Pulse 223bpm; Resp 20bpm; Pulse Ox 98% 3 lpm; hb tw2
--- NOTE | 2020-09-27 13:08 | EDPHYS ---
Physician Documentation [facility] Name: Robbie Kelly Age: 75 yrs Sex: Male : 1945 Arrival Date: 09/27/2020 Time: 10:54 Bed 3 Private MD: ED Physician Gopal Sanchez HPI: 09/27 12:58 This 75 yrs old Male presents to ER via EMS with complaints of Low spo2. rn 12:58 The patient or guardian reports cough, described as mild, with productive sputum, that rn is bloody. Onset: The symptoms/episode began/occurred yesterday. Severity of symptoms: At their worst the symptoms were mild, in the emergency department the symptoms are unchanged. Modifying factors: The symptoms are alleviated by nothing, the symptoms are aggravated by nothing. Associated signs and symptoms: Pertinent negatives: fever. The patient has experienced a previous episode. The patient has been recently seen by a physician:. Sent from dialysis for low oxygen and hemoptysis, began last night, small amounts, more globular, no fever, not on home O2. Undergoing w/u at [facility] for chronic hematuria and bladder mass, still small chronic hematuria but no acute changes. Has f/u on with urology for that. Reports COPD. Not really sob. . Historical: - Allergies: 11:06 No Known Allergies; tw2 - Home Meds: 11:06 levothyroxine 88 mcg oral tab 1 tab once daily [Active]; metoprolol tartrate 50 mg Oral tw2 tab 1 tab once daily for on days that he does not have dialysis [Active]; atorvastatin 40 mg oral tab 1 tab once daily [Active]; oxybutynin chloride 5 mg Oral tab 1 tab 3 times per day [Active]; folic acid 0.8 mg Oral cap [Active]; renal vitamin [Active]; tamsulosin 0.4 mg oral cp24 1 cap once daily [Active]; hydroxyzine HCl 25 mg Oral tab 1 tab 4 times per day [Active]; Ventolin HFA 90 mcg/actuation Nebulizer HFAA 1 puff every 4 hours [Active]; - PMHx: 11:06 Anemia; COPD; Dialysis; M,W,F; Hypertension; Hypothyroidism; POLYCYSTIC KIDNEY DISEASE; tw2 RENAL FAILURE; - Immunization history:: Adult Immunizations. - Social history:: Smoking status: . - Family history:: not pertinent. - Hospitalizations: : No recent hospitalization is reported. ROS: 12:58 Constitutional: Negative for fever, chills, and weight loss, Eyes: Negative for injury, rn pain, redness, and discharge, Neck: Negative for injury, pain, and swelling, Cardiovascular: Negative for chest pain, palpitations, and edema, Respiratory: + sob and cough Abdomen/GI: Negative for abdominal pain, nausea, vomiting, diarrhea, and constipation, Back: Negative for injury and pain, MS/Extremity: Negative for injury and deformity, Skin: Negative for injury, rash, and discoloration, Neuro: Negative for headache, weakness, numbness, tingling, and seizure. Exam: 12:58 Constitutional: This is a well developed, well nourished patient who is awake, alert, rn and in no acute distress. Head/Face: Normocephalic, atraumatic. Eyes: Periorbital areas with no swelling, redness, or edema. Cardiovascular: Tachycardic, regular. No pulse deficits. Respiratory: Mild tachypnea, no retractions, faint wheezing Abdomen/GI: soft, non-tender Skin: Warm, dry MS/ Extremity: Pulses equal, no cyanosis. Neuro: Awake and alert, GCS 15 Vital Signs: 10:55 BP 134 / 69; Pulse 118; Resp 20; Temp 97.8(TE); Pulse Ox 86% on R/A; tw2 11:40 BP 125 / 73; Pulse 123; Resp 20; Pulse Ox 98% 3 lpm ; tw2 11:40 Pulse 111; tw2 13:00 BP 126 / 76; Pulse 112; Resp 17; Pulse Ox 95% 3 lpm ; hb 13:32 Pulse Ox 66% on R/A; hb 14:00 BP 128 / 80; Pulse 107; Resp 17; Pulse Ox 94% 3 lpm ; hb 15:00 BP 141 / 53; Pulse 101; Resp 19; Pulse Ox 94% 3 lpm ; tw2 16:00 BP 111 / 94; Pulse 103; Resp 17; Pulse Ox 98% 3 lpm ; tw2 17:00 BP 152 / 77; Pulse 115; Resp 19; Pulse Ox 93% 3 lpm ; tw2 18:31 BP 156 / 75; Pulse 109; Resp 18; Pulse Ox 96% 3 lpm ; hb 19:09 BP 128 / 70; Pulse 109; Resp 20; Temp 98; Pulse Ox 98% on Simple Mask; mg2 10:55 pt placed on o2 via NRB at 4L, at 96% at this time, provider notified tw2 MDM: 10:56 Patient medically screened. rn 13:05 Differential Diagnosis: Bronchitis Upper Respiratory Infection Viral Syndrome rn Pneumonia. Data reviewed: vital signs, nurses notes. Data reviewed: lab test result(s), EKG, radiologic studies, , and as a result, I will admit patient. Counseling: I had a detailed discussion with the patient and/or guardian regarding: the historical points, exam findings, and any diagnostic results supporting the discharge/admit diagnosis, lab results, radiology results, the need for further work-up and treatment in the hospital. Response to treatment: the patient's symptoms have mildly improved after treatment. Admission orders: after a detailed discussion of the patient's condition and case, the admit orders are written by me. ED course: Pt with mass vs pneumonia on left lung, will get ct without ocntrast for further eval, admitted to Dr. Sanchez. Abx ordered for now. . 09/27 11:08 Order name: CBC with Diff rn 09/27 11:08 Order name: Basic Metabolic Panel; Complete Time: 13:03 rn 09/27 11:08 Order name: Protime (+inr); Complete Time: 13:03 rn 09/27 11:08 Order name: Ptt, Activated; Complete Time: 13:03 rn 09/27 11:08 Order name: Procalcitonin; Complete Time: 13:03 rn 09/27 11:08 Order name: XRAY Chest (1 view); Complete Time: 12:12 rn 09/27 11:09 Order name: CBC with Automated Diff; Complete Time: 13:03 EDID 09/27 12:39 Order name: Blood Culture Adult (2) rn 09/27 12:40 Order name: Blood Culture EDID 09/27 12:56 Order name: SARS-COV-2 RT PCR; Complete Time: 13:03 EDID 09/27 13:03 Order name: CT Chest Wo Con; Complete Time: 14:29 rn 09/27 11:08 Order name: IV Start; Complete Time: 11:30 rn 09/27 14:22 Order name: CONS Physician Consult EDMS Administered Medications: 11:40 Drug: SOLU-Medrol 125 mg Route: IVP; Site: right antecubital; hb 12:10 Follow up: Response: No adverse reaction hb 11:40 Drug: Xopenex 1.25 mg Route: Inhalation; hb 12:15 Follow up: Response: No adverse reaction hb 13:20 Drug: Rocephin (cefTRIAXone) 1 grams Route: IV; Rate: calculated rate; Site: right hb upper arm; 13:21 Follow up: IV Status: Completed infusion; IV Intake: 10ml hb 14:22 Drug: Zithromax (azithromycin) 500 mg Route: IVPB; Infused Over: 1 hrs; Site: right hb upper arm; 15:22 Follow up: Response: No adverse reaction; IV Status: Completed infusion; IV Intake: tw2 250ml Disposition: 09/27/20 13:07 Hospitalization ordered by Angus Sanchez for Inpatient Admission. Preliminary diagnosis are Hypoxemia, Pneumonia, unspecified organism. - Bed requested for Telemetry/MedSurg (Inpatient). - Status is Inpatient Admission. mg2 - Condition is Stable. - Problem is new. - Symptoms have improved. Signatures: Dispatcher [employer] EDID Nahomy Will Roman, MD MD rn Baxter, Heather, RN RN Karyn Cardoso RN RN tw2 Neto Valentin RN RN mg2 Corrections: (The following items were deleted from the chart) 12:12 11:09 CORONAVIRUS+ ordered. [facility] 13:02 12:58 Constitutional: This is a well developed, well nourished patient who is awake, rn alert, and in no acute distress. Head/Face: Normocephalic, atraumatic. Eyes: Periorbital areas with no swelling, redness, or edema. Cardiovascular: Tachycardic, regular. No pulse deficits. Respiratory: No increased work of breathing, no retractions or nasal flaring. Abdomen/GI: Soft, non-tender, with normal bowel sounds. No distension or tympany. No guarding or rebound. No evidence of tenderness throughout. rn 18:44 13:07 Hospitalization Ordered by Angus Sanchez MD for Inpatient Admission. Preliminary bd diagnosis is Hypoxemia; Pneumonia, unspecified organism. Bed requested for Telemetry/MedSurg (Inpatient). Status is Inpatient Admission. Condition is Stable. Problem is new. Symptoms have improved. rn 19:47 18:44 09/27/2020 13:07 Hospitalization Ordered by Angus Sanchez MD for Inpatient mg2 Admission. Preliminary diagnosis is Hypoxemia; Pneumonia, unspecified organism. Bed requested for Telemetry/MedSurg (Inpatient). Status is Inpatient Admission. Condition is Stable. Problem is new. Symptoms have improved. bd
--- NOTE | 2020-09-27 13:44 | RAD REPORT ---
EXAM DESCRIPTION: CT - Thorax Wo Con CLINICAL HISTORY: Chest pain possible lung mass vs pneumonia COMPARISON: Chest Single View dated 09/27/2020; Abdomen Pelvis Wo Contrast dated 08/27/2020 FINDINGS: Advanced COPD is noted. There is large area of lung consolidation seen in the left upper l obe posteriorly. Mild areas of lung consolidation are seen in the posterior right upper lobe and post erior right lower lobe. No pleural thickening or pleural effusion. No pneumothorax. No axillary, mediastinal or hilar adenopathy. 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 No lytic or blastic bone lesions are seen. Numerous cysts are present in both kidneys. Several low-de nsity liver lesions also seen probably also cysts. All CT scans are performed using dose optimization technique as appropriate and may include automated exposure control or mA/KV adjustment according to patient size. IMPRESSION: Advanced COPD is present. Bilateral areas of lung consolidation seen more significant involving left upper lobe posteriorly. Th andra most likely represent pneumonia, however after appropriate treatment, follow-up imaging would be recommended to ensure resolution. Dilatation the descending thoracic aorta to 5.6 cm noted compatible with aneurysm.
--- NOTE | 2020-09-27 14:42 | P.HP ---
Certification for Inpatient Patient admitted to: Inpatient With expected LOS: >2 Midnights Practitioner: I am a practitioner with admitting privileges, knowledge of patient current condition, hospital course, and medical plan of care. Services: Services provided to patient in accordance with Admission requirements found in Title 42 Section 412.3 of the Code of Federal Regulations Patient History Date of Service: 09/27/20 Reason for admission: Bilateral pneumonia, hemoptysis History of Present Illness: 75-year-old male, PMH: COPD, recent diagnosis of bladder cancer, chronic hematuria, hypothyroidism, ESRD on HD (M, W, F) due to polycystic kidney disease, chronic anemia. Presents to ED from hemodialysis center due to hypoxia with SPO2: Mid 80%. Patient reports being in his usual state of health until yesterday when he had an episode of hemoptysis. He has had an episode before which was self-limited and he was diagnosed with a pneumonia. This time he had a little bit more blood. He reports feeling a little bit fatigued, however he had a lot of family over and was busy yesterday for [employer]. Today he had another episode of hemoptysis. He reports feeling a little bit more "rundown". He denies fever, chills, chest pain, abdominal pain, swelling in his legs, nausea/vomiting, diarrhea. He reports the blood is coming from when he is coughing up, he has not had any emesis. Work-up in ED revealed hemoglobin: 8.2, creatinine: 5.29, procalcitonin: 0.67, COVID-19 negative CXR: Left midlung field with dense consolidative mass most likely an acute pneumonia. Patchy right midlung field interstitial opacification superimposed on baseline fibrosis. CT chest: Bilateral lung consolidation more significant involving left upper lobe posteriorly. Most likely represent pneumonia. 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 Patient was breathing more comfortably on 2 L of nasal cannula. He was given IV Rocephin and azithromycin. Allergies No Known Allergies Allergy (Verified 01/22/20 11:13) Home Medications: Levothyroxine Sodium [Unithroid] 88 mcg PO DAILY 10/01/15 Metoprolol Tartrate [Lopressor] 50 mg PO BID 10/01/15 Albuterol Sulfate [Ventolin Hfa] 90 mcg IN Q6HP PRN 06/19/19 Folic Acid/Vit B Complex and C [Renal-Shari Tablet] 1 tab PO DAILY 06/19/19 Lisinopril [Zestril] 10 mg PO DAILY 06/19/19 Albuterol Neb [Proventil 0.083% Neb Soln] 2.5 mg IH DAILY 01/22/20 - Past Medical/Surgical History Diabetic: No -: HTN -: Hypothyroid -: polycystic kidney -: diverticulitis -: COPD -: anemia -: CKD -: AAA repair -: Colonoscopy - Family History Father -: Heart disease Mother -: Heart disease - Social History Smoking Status: Former smoker Alcohol use: No CD- Drugs: No Caffeine use: No Place of Residence: Home Review of Systems 10-point ROS is otherwise unremarkable Physical Examination - Studies Laboratory Data (last 24 hrs) 09/27/20 11:40: PT 12.9 H, INR 1.12, APTT 24.8 09/27/20 11:40: Sodium 138, Potassium 4.1, BUN 11, Creatinine 5.29 H*, Glucose 105 09/27/20 11:40: WBC 9.60, Hgb 8.2 L, Hct 25.0 L, Plt Count 220 Assessment and Plan - Advance Directives Does patient have a Living Will: No Does patient have a Durable POA for Healthcare: No Physician Review Additional Text: Physical exam General: NAD, resting comfortably in stretcher HEENT: Sclera anicteric, normal conjunctiva, no JVD, no cervical lymphadenopathy Pulmonary: Bilateral crackles, no wheeze, diminished air entry, nonlabored on facemask/oxygen CV: Regular rate and rhythm, no murmur, no edema Abdomen: Soft, nontender nondistended EXT: No edema, no rash Neuro: AAOx3, 5/5 strength bilaterally upper and lower extremities Problem list Acute hypoxemic respiratory failure secondary to bilateral pneumonia, community- acquired Hemoptysis COPD Recent diagnosis of bladder cancer Chronic hematuria Chronic anemia ESRD on HD, secondary to polycystic kidney disease Hypothyroidism AAA Admit to med/surg, patient does not appear septic at this time, community- acquired pneumonia Patient with recent hospitalization 1 month ago, will cover for Pseudomonas and MRSA for now - levaquin & Doxy ordered -sputum and blood cultures ordered -Pulmonology consulted due to bilateral pneumonia and hemoptysis Wean oxygen as tolerated No significant wheeze on exam, with diminished air entry, and history of COPD, continue nebulizers as needed Nephrology consulted for hemodialysis -Chronic hematuria, undergoing work-up/evaluation by urology, has appointment this . Patient and report no change currently -Continue to monitor hemoglobin VTE: SCDs Code: Full Dispo: Anticipate discharge home in ~48-72 hours Time Spent Managing Pts Care (In Minutes): 60
[2020-09-27] MEDS ORDERED: ONDANSETRON 4 MG/2 ML VIAL IV PRN (20:28)
[2020-09-27] MEDS ORDERED: ALBUTEROL 2.5 MG/3 ML NEB SOL NEB PRN (20:28)
[2020-09-27] MEDS ORDERED: Levofloxacin 750mg IV 750 MG/150 ML BAG IV ONE (20:28)
[2020-09-27 21:33] VITALS: BMI 25.6
[2020-09-27] MEDS: IPRATROPIUM BROM 0.5MG/2.5ML NEB SCH (21:35)
[2020-09-27] MEDS: DOXYCYCLINE 100 MG CAP PO SCH (21:54)
[2020-09-27] MEDS ORDERED: EPOETIN ALFA 10,000 UNIT/ML VIAL IV SCH (22:00)
--- NOTE | 2020-09-27 23:28 | CON ---
Date of Consultation: 09/27/2020 Chief Complaint: End-stage renal disease, on dialysis. History Of Present Illness: The patient was referred from dialysis because of hypoxemia. He was complaining of hemoptysis. In the emergency room, workup was done to rule out pneumonia and CT scan was done. Chest x-ray showed left midline field with dense consolidative mas, likely secondary to acute pneumonia. CT scan of the chest show bilateral lung consolidation, significantly involving left upper lobe posteriorly, most likely pneumonia. The patient was on 2 L nasal cannula. He was started on IV Rocephin. The patient has history of end- stage renal disease due to polycystic kidney disease. He recently was diagnosed with bladder cancer and was scheduled to see Hematology/Oncology. The patient developed hypoxemia in mid 80s and was started on O2 nasal cannula during dialysis today and after dialysis, he was sent by ambulance to emergency room. The patient clinically denied chest pain, palpitation, or syncope. He developed hemoptysis today. He denied fever or wheezing. He was screened for COVID infection in the emergency room. Review of Systems: Constitutional: Denies fever or chills. Eyes: Denies vision changes. Ears, Nose, Mouth, and Throat: Denies sore throat or earache. Respiratory: He has shortness of breath. Denies wheezing. Heart: S1, S2. Cardiovascular: Denies palpitation or syncope. GI: Denies nausea or vomiting. : Denies dysuria or hematuria. Musculoskeletal: Denies muscle aches or joint swelling. All other systems reviewed and all are negative. Past Medical History: Hypertension, polycystic kidney disease, end-stage renal disease, hypothyroidism, bladder cancer, COPD, anemia in CKD, AAA repair, colonoscopy. Family History: Father had heart disease. Mother had heart disease. Social History: Former smoker. Denies alcohol or illicit drugs. Physical Examination: General: The patient is awake, alert, follows commands. Eyes: Anicteric sclerae. EOMI. Ears, Nose, Mouth, and Throat: Oral mucosa moist. No pallor. Neck: Supple. No bruits. Lungs: Diminished breath sounds at bases. Heart: S1, S2. Abdomen: Soft, benign. Extremities: No edema. Laboratory Data: Blood work: Potassium 4.1, BUN 11, creatinine 5.29, glucose 105, WBC 9.6. Hemoglobin 8.2, platelet count 220,000. Impression And Plan: 1. Pneumonia. Continue antibiotics and oxygen therapy. Continue nebulizer treatment. Re-evaluate CT scan after antibiotic therapy. The patient likely has community-acquired pneumonia. 2. Recently diagnosed bladder cancer. The patient will follow up with Urology. 3. End-stage renal disease secondary to polycystic kidney disease. Continue dialysis 3 times per week. Monitor electrolytes. 4. Pneumonia and hemoptysis. The patient may need bronchoscopy and Pulmonary was consulted. FÁTIMA/MATTHEW Voice ID: [id number] Report ID: [id number] MTDD
[2020-09-28] MEDS: IPRATROPIUM BROM 0.5MG/2.5ML NEB SCH ×2 (02:00→08:00)
[2020-09-28 05:41] LABS: Absolute Lymphocytes (CBC) 0.9 K/uL (0.7-4.9); Basophils % 0.2 % (0-1.3); Hematocrit 21.8 % (39.6-49.0); Lymphocytes % 9.7 % (15.3-44.8); MPV 8.4 fL (7.6-11.3); RBC Red Blood Cell Count 2.26 M/uL (4.33-5.43)
[2020-09-28 05:45] LABS: Protime INR 1.22
[2020-09-28 06:27] LABS: Albumin 2.9 g/dL (3.4-5.0); Bilirubin Total 0.4 mg/dL (0.2-1.0); Ferritin 1041.8 ng/mL (26-388); Phosphorus 3.8 mg/dL (2.5-4.9); Potassium 5.4 mmol/L (3.5-5.1); Protein, Total 6.8 g/dL (6.4-8.2)
[2020-09-28] MEDS: ARFORMOTEROL TARTRATE 15 MCG/2 ML VIAL.NEB NEB SCH ×2 (08:35→20:00)
[2020-09-28] MEDS ORDERED: IPRATROPIUM BROM 0.5MG/2.5ML NEB PRN (08:36)
--- NOTE | 2020-09-28 08:37 | P.CNS ---
Date of Consult: 09/28/20 Reason for Consult: Pneumonia and hemoptysis Chief Complaint: Bilateral pneumonia, hemoptysis History of Present Illness: As 5 years of age poor historian he has been complaining of worsening dyspnea for the past 4 weeks admitted with hemoptysis denies any fever or chills as found to have pneumonia left greater than right patient is on a hemodialysis Allergies No Known Allergies Allergy (Verified 01/22/20 11:13) Home Medications: Albuterol Sulfate [Ventolin Hfa] 2 puff IH Q6HP PRN 09/27/20 Atorvastatin Calcium [Lipitor] 40 mg PO DAILY 09/27/20 Finasteride [Proscar*] 5 mg PO DAILY 09/27/20 Folic Acid/Vit B Complex and C [Aileen-Shari Tablet] 1 tab PO DAILY 09/27/20 Levothyroxine [Synthroid*] 1 tab PO 0630 09/27/20 Oxybutynin Chloride [Ditropan*] 5 mg PO TIDP PRN 09/27/20 Tamsulosin HCl [Flomax] 0.4 mg PO DAILY 09/27/20 - Past Medical/Surgical History Diabetic: No -: HTN -: Hypothyroid -: polycystic kidney -: diverticulitis -: COPD -: anemia -: CKD -: AAA repair -: Colonoscopy - Family History Father Medical History: Heart disease Mother Medical History: Heart disease - Social History Smoking Status: Current some day smoker Alcohol use: No CD- Drugs: No Caffeine use: Yes Place of Residence: Home Review of Systems 10-point ROS is otherwise unremarkable General: Weakness Respiratory: Cough, Shortness of Breath, Hemoptysis Physical Examination Temp Pulse Resp BP Pulse Ox 99.0 F 109 H 19 120/58 L 91 09/28/20 04:00 09/28/20 04:00 09/28/20 04:00 09/28/20 04:00 09/28/20 04:00 General: Alert, In no apparent distress, Oriented x3 Respiratory: Crackles/rales (Left greater than right) Cardiovascular: No edema, Regular rate/rhythm Laboratory Data (last 24 hrs) 09/27/20 11:40: PT 12.9 H, INR 1.12, APTT 24.8 09/27/20 11:40: Sodium 138, Potassium 4.1, BUN 11, Creatinine 5.29 H*, Glucose 105 09/27/20 11:40: WBC 9.60, Hgb 8.2 L, Hct 25.0 L, Plt Count 220 - Problems (1) Pneumonia, unspecified organism Current Visit: Yes Status: Acute Plan: Patient is 75 years of age with a history of COPD and on hemodialysis admitted with hemoptysis worsening shortness of breath is bilateral pneumonia left greater than the right patient has normal white count agree with levofloxacin and doxycycline for now CT scan does not show any evidence of pulmonary embolism he does have advanced COPD continue with bronchodilators add prednisone possible discharge in the morning and may qualify for home oxygen to follow up with me in 2 weeks discharge on levofloxacin and doxycycline patient to prednisone Qualifiers: Laterality: bilateral
[2020-09-28] MEDS: FOLIC ACID 1 MG TABLET PO SCH (08:39)
[2020-09-28] MEDS: SEVELAMER CARBONATE 800 MG TABLET PO SCH ×3 (08:39→17:00)
[2020-09-28] MEDS: DOXYCYCLINE 100 MG CAP PO SCH ×2 (08:39→20:59)
[2020-09-28] MEDS: predniSONE 20 MG TAB PO SCH ×2 (09:59→20:59)
--- NOTE | 2020-09-28 11:23 | P.CNS ---
Date of Consult: 09/28/20 Reason for Consult: ESRD on HD Chief Complaint: Bilateral pneumonia, hemoptysis History of Present Illness: 75M w/ PMHx of ESRD 2/2 PKD on HD MWF, hx of bladder cancer, chronic hematuria, COPD, anemia, & hypothyroidism, who p/w hemoptysis & hypoxia, admitted for pneumonia, started on antibiotics & receiving supplemental oxygen. Allergies No Known Allergies Allergy (Verified 01/22/20 11:13) Home Medications: Albuterol Sulfate [Ventolin Hfa] 2 puff IH Q6HP PRN 09/27/20 Atorvastatin Calcium [Lipitor] 40 mg PO DAILY 09/27/20 Finasteride [Proscar*] 5 mg PO DAILY 09/27/20 Folic Acid/Vit B Complex and C [Aileen-Shari Tablet] 1 tab PO DAILY 09/27/20 Levothyroxine [Synthroid*] 1 tab PO 0630 09/27/20 Oxybutynin Chloride [Ditropan*] 5 mg PO TIDP PRN 09/27/20 Tamsulosin HCl [Flomax] 0.4 mg PO DAILY 09/27/20 - Past Medical/Surgical History Diabetic: No -: HTN -: Hypothyroid -: polycystic kidney -: diverticulitis -: COPD -: anemia -: CKD -: AAA repair -: Colonoscopy - Family History Father Medical History: Heart disease Mother Medical History: Heart disease - Social History Smoking Status: Current some day smoker Alcohol use: No CD- Drugs: No Caffeine use: Yes Place of Residence: Home Review of Systems General: Weakness Eyes: Unremarkable ENT: Unremarkable Respiratory: Shortness of Breath, Hemoptysis Cardiovascular: Unremarkable Gastrointestinal: Unremarkable Genitourinary: Hematuria Musculoskeletal: Other (weakness) Integumentary: Unremarkable Neurological: Unremarkable Lymphatics: Unremarkable Physical Examination Temp Pulse Resp BP Pulse Ox 96.8 F 110 H 18 142/69 H 95 09/28/20 08:00 09/28/20 08:00 09/28/20 08:00 09/28/20 08:00 09/28/20 08:00 General: Other (appears as his stated age) HEENT: Atraumatic, Normocephalic Neck: Without JVD or thyroid abnormality Respiratory: Normal air movement Cardiovascular: Normal S1 S2, No rubs, No murmurs Gastrointestinal: Soft and benign, Non-distended Musculoskeletal: No swelling Integumentary: No erythema Neurological: Normal speech, Normal tone, Normal affect Lymphatics: No axilla or inguinal lymphadenopathy Urinary: Other (No thompson cath) External genitalia: Deferred Rectal: Deferred Laboratory Data (last 24 hrs) 09/27/20 11:40: PT 12.9 H, INR 1.12, APTT 24.8 09/27/20 11:40: Sodium 138, Potassium 4.1, BUN 11, Creatinine 5.29 H*, Glucose 105 09/27/20 11:40: WBC 9.60, Hgb 8.2 L, Hct 25.0 L, Plt Count 220 Conclusions/Impression: # ESRD 2/2 PKD on HD MWF HD today for hyperK HD again tomorrow per MWF sked # Chronic hematuria, hx of bladder cancer, PKD Monitor F/u w/ Urology # Hemoptysis Abx for PNA Check serum DIONNE, ANCA, anti-GBM Ab, RF, cryoglobulins # Severe anemia Transfuse 2u pRBC w/ HD # CKD-MBD Monitor Ca & Phos
--- NOTE | 2020-09-28 13:39 | P.PN ---
Subjective Date of Service: 09/28/20 Chief Complaint: Bilateral pneumonia, hemoptysis Patient continued to have hemoptysis and hematuria. He is not on any anticoagulant or Aspirin. He denies shortness of breath. Hemoglobin dropped to 7.2. Physical Examination - Vital Signs Temperature: 96.8 F Blood Pressure: 142/69 Pulse: 110 Respirations: 18 Pulse Ox (%): 95 - Physical Exam General: Alert, In no apparent distress, Oriented x3 HEENT: Mucous membr. moist/pink Neck: Supple, JVD not distended Respiratory: Diminished (Left greater than right), Crackles/rales (Bibasilar) Cardiovascular: No edema, Regular rate/rhythm, Normal S1 S2 Capillary refill: <2 Seconds Gastrointestinal: Normal bowel sounds, Soft and benign, Non-distended, No tenderness Musculoskeletal: No swelling, No erythema Integumentary: No rashes Neurological: Normal speech, Normal strength at 5/5 x4 extr, Cranial nerves 3-12 intact Assessment And Plan Physician Review Additional Text: Physical exam General: NAD, resting comfortably in stretcher HEENT: Sclera anicteric, normal conjunctiva, no JVD, no cervical lymphadenopathy Pulmonary: Bilateral crackles, no wheeze, diminished air entry, nonlabored on facemask/oxygen CV: Regular rate and rhythm, no murmur, no edema Abdomen: Soft, nontender nondistended EXT: No edema, no rash Neuro: AAOx3, 5/5 strength bilaterally upper and lower extremities Problem list Acute hypoxemic respiratory failure secondary to bilateral pneumonia, community- acquired Hemoptysis COPD Recent diagnosis of bladder cancer Chronic hematuria Chronic anemia ESRD on HD, secondary to polycystic kidney disease Hypothyroidism AAA continue antibiotics to cover for Pseudomonas and MRSA for now - levaquin & Doxy ordered. -will add clindamycin. -blood cultures: No growth to date. Sputum culture is pending. -Pulmonology input appreciated. Wean oxygen as tolerated continue nebulizers as needed Nephrology input appreciated. -Chronic hematuria, undergoing work-up/evaluation by urology, has appointment this . Patient and report no change currently -transfuse 1 unit PRBC with dialysis today. VTE: SCDs Code: Full Dispo: Home once stable.
[2020-09-28] MEDS ORDERED: NA CHLORIDE 0.9% 250 ML ONE (15:56)
[2020-09-28] MEDS ORDERED: Levofloxacin 250mg IV 250 MG/50 ML BAG IV SCH (20:00)
[2020-09-29 04:53] LABS: Basophils % 0.1 % (0-1.3); Hematocrit 29.1 % (39.6-49.0); Lymphocytes % 9.2 % (15.3-44.8); MPV 8.4 fL (7.6-11.3); RBC Red Blood Cell Count 3.03 M/uL (4.33-5.43)
[2020-09-29 05:28] LABS: Blood Morphology Comment NOT SEEN (NOT SEEN); Platelet Estimate ADEQ
[2020-09-29 06:06] LABS: Potassium 5.8 mmol/L (3.5-5.1)
--- NOTE | 2020-09-29 07:59 | P.PN ---
Subjective Date of Service: 09/30/20 Chief Complaint: Bilateral pneumonia, hemoptysis Reports still having hemoptysis. Physical Examination - Vital Signs Temperature: 98.4 F Blood Pressure: 148/66 Pulse: 82 Respirations: 18 Pulse Ox (%): 99 - Physical Exam General: In no apparent distress HEENT: Atraumatic, Normocephalic Neck: Supple Respiratory: Clear to auscultation bilaterally Cardiovascular: No rubs, No murmurs Gastrointestinal: Soft and benign, Non-distended Musculoskeletal: No swelling Assessment And Plan - Plan # ESRD 2/2 PKD on HD MWF HD received yesterday for hyperK HD again today per MWF sked # Chronic hematuria, hx of bladder cancer, PKD Monitor F/u w/ Urology # Hemoptysis Cont Abx for PNA Check serum DIONNE, ANCA, anti-GBM Ab, RF, cryoglobulins # Severe anemia Transfuse 2u pRBC w/ HD # CKD-MBD Monitor Ca & Phos
[2020-09-29 08:15] LABS: Rheumatoid Factor POS (NEG)
[2020-09-29] MEDS: FOLIC ACID 1 MG TABLET PO SCH (08:51)
[2020-09-29] MEDS: DOXYCYCLINE 100 MG CAP PO SCH (08:51)
[2020-09-29] MEDS: predniSONE 20 MG TAB PO SCH (08:52)
[2020-09-29] MEDS: SEVELAMER CARBONATE 800 MG TABLET PO SCH ×2 (08:52→12:00)
[2020-09-29] MEDS: ARFORMOTEROL TARTRATE 15 MCG/2 ML VIAL.NEB NEB SCH (09:20)
--- NOTE | 2020-09-29 13:04 | P.DS ---
Admission Date: 09/27/20 Discharge Date: 09/29/20 Disposition: ROUTINE DISCHARGE Discharge Condition: FAIR Reason for Admission: Bilateral pneumonia, hemoptysis Consultations: Pulmonary- Nephrology-Dr. Juarez - Problems (1) Acute blood loss anemia Status: Acute (2) Hemoptysis Status: Acute (3) Hematuria Status: Acute (4) Acute respiratory failure with hypoxia Status: Acute (5) Pneumonia, unspecified organism Status: Acute Qualifiers: Laterality: bilateral (6) History of bladder cancer Status: Chronic Brief History of Present Illness: 75-year-old gentleman with a history of end-stage renal disease on hemodialysis, polycystic kidney, COPD was brought to the emergency department due to hypoxia noted during dialysis. His oxygen saturation was down to 80%. Patient reports hemoptysis and hematuria. CT chest done in the emergency department demonstrated bilateral infiltrate, more dense consolidation in the left upper lobe. His hemoglobin was 8.2. Patient was admitted for further management. Hospital Course: Patient admitted to the medical floor and started on antibiotics which included Levaquin and doxycycline. He was seen and evaluated by pulmonary. Patient considered to have advanced COPD. He was placed on Brovanna, nebs and oral prednisone. He was seen in consultation by nephrology and he underwent routine dialysis. The hematuria and hemoptysis persisted during the hospital stay. His hemoglobin was down to 7.2. He was given 2 units PRBC transfusion. Current hemoglobin is 9.9. Patient reports the hematuria is chronic. He was recently diagnosed with bladder cancer and following up with urology in the medical center. He has an appointment tomorrow. Patient deemed stable for discharge per pulmonary. He is discharged with 2 weeks of antibiotic therapy for the bilateral pneumonia and hemoptysis. He will follow with Dr. Browne within 1-2 weeks. Cultures yielded no growth. Vital Signs/Physical Exam: Temp Pulse Resp BP Pulse Ox 98.3 F 101 H 18 150/60 H 95 09/29/20 12:00 09/29/20 12:00 09/29/20 12:00 09/29/20 12:09/29/20 12:00 General: Alert, In no apparent distress, Oriented x3 HEENT: Mucous membr. moist/pink Neck: Supple, No Thyromegaly Respiratory: Diminished (Bilateral) Cardiovascular: No edema, Regular rate/rhythm, Normal S1 S2 Capillary refill: <2 Seconds Gastrointestinal: Normal bowel sounds, Soft and benign, Non-distended, No tenderness Musculoskeletal: No swelling, No tenderness Integumentary: No rashes Neurological: Normal gait, Normal strength at 5/5 x4 extr, Cranial nerves 3-12 intact Laboratory Data at Discharge: WBC 11.10 K/uL (4.3-10.9) H D 09/29/20 04:32 Hgb 9.9 g/dL (13.6-17.9) L 09/29/20 04:32 Hct 29.1 % (39.6-49.0) L 09/29/20 04:32 Plt Count 241 K/uL (152-406) 09/29/20 04:32 PT 14.1 SECONDS (9.5-12.5) H 09/28/20 05:18 INR 1.22 09/28/20 05:18 APTT 27.0 SECONDS (24.3-36.9) 09/28/20 05:18 Sodium 137 mmol/L (136-145) 09/29/20 04:32 Potassium 5.8 mmol/L (3.5-5.1) H* 09/29/20 04:32 BUN 35 mg/dL (7-18) H 09/29/20 04:32 Creatinine 6.85 mg/dL (0.55-1.3) H* 09/29/20 04:32 Glucose 122 mg/dL (74-106) H 09/29/20 04:32 Phosphorus Cancelled 09/28/20 Unknown Magnesium 2.0 mg/dL (1.8-2.4) 09/28/20 05:18 Total Bilirubin 0.4 mg/dL (0.2-1.0) 09/28/20 05:18 AST 10 U/L (15-37) L 09/28/20 05:18 ALT 14 U/L (12-78) 09/28/20 05:18 Alkaline Phosphatase 47 U/L (45-117) 09/28/20 05:18 Home Medications: Albuterol Sulfate [Ventolin Hfa] 2 puff IH Q6HP PRN 09/27/20 Atorvastatin Calcium [Lipitor] 40 mg PO DAILY 09/27/20 Finasteride [Proscar*] 5 mg PO DAILY 09/27/20 Folic Acid/Vit B Complex and C [Aileen-Shari Tablet] 1 tab PO DAILY 09/27/20 Levothyroxine [Synthroid*] 1 tab PO 0630 09/27/20 Oxybutynin Chloride [Ditropan*] 5 mg PO TIDP PRN 09/27/20 Tamsulosin HCl [Flomax] 0.4 mg PO DAILY 09/27/20 Albuterol Neb [Proventil 0.083% Neb Soln] 2.5 mg NEB Q6HP PRN #60 amp 09/29/20 Arformoterol Tartrate [Brovana] 15 mcg NEB BIDRESP #60 vial.neb 09/29/20 Doxycycline Hyclate 100 mg PO BID #28 capsule 09/29/20 Epoetin [Retacrit] 10,000 unit IV EVERY HD vial 09/29/20 Ipratropium Neb [Atrovent*] 0.5 mg NEB Q6HP PRN #60 amp 09/29/20 Nebulizer [Aeroneb Go Nebulizer] 1 each MC Q6H #1 each 09/29/20 Sevelamer Carbonate [Renvela*] 2,400 mg PO TIDWM #180 tablet 09/29/20 levoFLOXacin [Levaquin*] 250 mg PO Q48H #7 tab 09/29/20 predniSONE [Prednisone*] 20 mg PO BID #14 tab 09/29/20 New Medications: Ipratropium Neb [Atrovent*] 0.5 mg NEB Q6HP PRN #60 amp PRN Reason: Shortness Of Breath Albuterol Neb [Proventil 0.083% Neb Soln] 2.5 mg NEB Q6HP PRN #60 amp PRN Reason: Shortness Of Breath Nebulizer [Aeroneb Go Nebulizer] 1 each MC Q6H #1 each Arformoterol Tartrate [Brovana] 15 mcg NEB BIDRESP #60 vial.neb Doxycycline Hyclate 100 mg PO BID #28 capsule levoFLOXacin [Levaquin*] 250 mg PO Q48H #7 tab predniSONE [Prednisone*] 20 mg PO BID #14 tab Sevelamer Carbonate [Renvela*] 2,400 mg PO TIDWM #180 tablet Diet: AHA Activity: Ad irina Followup: Mahendra Browne MD [ACTIVE - CAN ADMIT] - Mookie Nguyen MD [Primary Care Provider] - Time spent managing pt's care (in minutes): 32
[2020-09-29 16:02] VITALS: O2SAT 96
[2020-09-29] MEDS ORDERED: levoFLOXacin 250 MG TAB PO SCH (21:00)
[2020-09-30 06:24] VITALS: BP 148/66; TEMP 98.4
== END 2020-09-29 17:38 | disposition home or self-care (01) | DRG 193 ==
LOC: ER 10:53 → ERHOLD 14:36 → 2ND 19:36
PROVIDERS: ADMIT Hospitalist; ATTEND Internal Medicine
PROC: 30233N1 Transfusion of Nonautologous Red Blood Cells into Peripheral Vein, Percutaneous Approach (ICD-10-PCS; 2020-09-28)
PROC: 5A1D70Z Performance of Urinary Filtration, Intermittent, Less than 6 Hours Per Day (ICD-10-PCS; principal; 2020-09-29)
DX: J18.9 Pneumonia, unspecified organism (principal); J96.01 Acute respiratory failure with hypoxia; N18.6 End stage renal disease; R04.2 Hemoptysis; J44.0 Chronic obstructive pulmonary disease with (acute) lower respiratory infection; Q61.3 Polycystic kidney, unspecified; I12.0 Hypertensive chronic kidney disease with stage 5 chronic kidney disease or end stage renal disease; D62 Acute posthemorrhagic anemia; E03.9 Hypothyroidism, unspecified; I71.4 Abdominal aortic aneurysm, without rupture; F17.200 Nicotine dependence, unspecified, uncomplicated; C67.9 Malignant neoplasm of bladder, unspecified; B96.5 Pseudomonas (aeruginosa) (mallei) (pseudomallei) as the cause of diseases classified elsewhere; B95.62 Methicillin resistant Staphylococcus aureus infection as the cause of diseases classified elsewhere; R31.9 Hematuria, unspecified; Z79.890 Hormone replacement therapy; Z79.899 Other long term (current) drug therapy; Z79.52 Long term (current) use of systemic steroids; Z99.2 Dependence on renal dialysis; Z20.822 Contact with and (suspected) exposure to COVID-19
CPT/HCPCS: 36415; 71045; 71250; 80048; 80053; 82728; 83520; 83735; 84100; 84145; 85014; 85018; 85025; 85610; 85730; 86021; 86038; 86430; 86850; 86880; 86900; 86901; 86922; 87040; 94640; 94760; 97116; 97161; 99285; G0257; J0456; J0696; J1644; J2930; J7050; J7512; J7605; P9016; Q5105; U0003

== ENCOUNTER 2020-11-17 06:00 | Inpatient (IN) | payer OTHER ==
--- OUTSIDE RECORDS SUMMARY | 2020-11-17 06:07 | XMS REPORT | Continuity of Care Document ---
:1945 Author Organization [facility] t Address [address] [place] [address] Care Team Providers Name Role Phone Asked, Pcp Primary Care Physician Unavailable Ramesh Huang MD Attending Clinician Yuliet WOOD Attending Clinician Alyssa Farris MD Attending Clinician Jasvir Dixon MD Attending Clinician Deb Oliveira CRNA Attending Clinician YULIET Attending Clinician Unavailable Thee Burton CRNA Attending Clinician ALYSSA FARRIS Attending Clinician Unavailable Vishal Keen MD Attending Clinician Waqar [...] Expiration Date Sour ce Number MEDICAREMEDICARE A [id number] CHASITY camacho [facility] [id number] 2009 00:00:00 - M edical -PresentMedicare Center [facility] [id number] 2016 CHASITY Liu SUPPLEMENT/INDIVIDUAL 00:00:00 - M edical [facility] [id number] 2016 -PresentMedigap MEDICAREMEDICARE PART [id number] 2010 Ho rosaura A AND 00:00:00 Jew [id number] 2009 -[place] [facility] BANKPublicBeta LIFE AND [id number] 2020 [place] CASUALTYin2nite LIFE 00:00:00 Meth odist AND [id number]/2020-PresentCommercia l Problems Condition Condition Condition Status Onset Resolution Last Treating Co mments Source Name Details Category Date Date Treatment Clinician Date 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 5-05 [facility] - 00:00: Medical Calder Hematuria Hematuria Disease Active CHASITY Cadena 3-06 [facility] - 00:00: Medical Calder Altered Altered Disease Active CHASITY Cadena mental mental 3-05 Marybeth - status status 00:00: Medical Center s/p L CEA s/p L CEA Disease Active CHASITY Cadena 02/11 ( 02/11 ( 02-11 Julio Acevedo) 00:00: Medica l 00 Center Pre-transp Pre-transp Disease Active Last [facility] lant lant 12-19 Chema Rueda - evaluation evaluation 00:00: t & Plan: Medical for for 00 Due to Center chronic chronic his age, kidney kidney history disease disease of COPD, and AAA repair he is not an acceptabl e candidate for kidney transplan t. He understoo d and agreed with this decision. HTN HTN Disease Active Last [facility] (hypertens (hypertens 12-19 Assessharsh Rueda - ion) ion) 00:00: t & Plan: Medical 00 Continue Center managemen t with nephrolog y as prescribe d. Aortic Aortic Disease Active Last [facility] aneurysm aneurysm 12-19 Assessharsh Crispin es - 00:00: t & Plan: Medical Repaired Center with a stent in 2012. Polycystic Polycystic Disease Active C [facility] kidney kidney 12-19 [facility] - 00:[facility]: Medical Center COPD COPD Disease [facility] (chronic (chronic 12-19 Assessmen [facility] - obstructiv obstructiv 00:00: t & Plan: Medical e e 00 Control Center pulmonary pulmonary d with disease) disease) inhalers. No history of smoking. Asthma Asthma Disease Active [facility] ESRD (end ESRD (end Disease [facility] stage stage [facility] renal renal Medical disease) disease) Center Dialysis Dialysis Disease Active [facility] S t patient patient [facility] S/P S/P Disease Active [facility] carotid carotid [facility] endarterec endarterec [facility] Acute [facility] blood loss blood loss 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 Family History Family Member Diagnosis Comments Start Date Stop Date Source Natural brother Cancer [facility] Natural daughter Polycystic kidney C HI [facility] disease [facility] Natural father Heart disease [facility] Natural father Heart failure [facility] Natural father Hypertension [facility] Natural mother Cancer [facility] Natural mother Hypertension [facility] Natural sister COPD [facility] Social History Social Habit Start Date Stop Date Quantity Comments Source History of tobacco Current smoker I [facility] use [facility] Sex Assigned At [facility] Exposure to Not sure [facility] - SARS-CoV-2 (event) [facility] Tobacco use and 2020-11-04 2020-11-04 Never used [facility] - exposure 00:00:00 00:00:00 Medical Center Alcohol intake 2020-11-04 2020-11-[address] [facility] - 00:00:00 00:00:00 non-drinker of Medical Ce nter alcohol (finding) History SDOH 2020-07-29 2020-07-29 1 [facility] Alcohol Frequency 00:00:00 00:00:00 History SDOH 2020-07-29 2020-07-29 99 Luis Meth odist Alcohol Std Drinks 00:00:00 00:00:00 History SDOH 2020-07-29 2020-07-29 1 [place] Meth odist Alcohol Binge 00:00:00 00:00:00 Smoking Status Start Date Stop Date Source Former smoker 2020-11-04 00:00:00 2020-11-04 00:00:[address] [facility] [facility] Medications Ordered Filled Start Stop Current Ordering Indication Dosage Frequency Signature Comments Components Source Medication Medication Date Date Medication? Clinician (SIG) Name Name diphenhydrA Yes 25mg Take [address] MINE 5-13 by mouth [facility]ukes - (BENADRYL) 09:27: every Medica l 25 mg 58 night as Center tablet needed for Sleep. folic Yes 1{tbl} QD Take [address] acid-multiv 5-13 tablet by Crispin es - itamins 09:27: mouth Medical (NEPHRO-VIT 58 daily. Center E) 0.8 mg Tab tablet albuterol Yes 1{puff} Inhale [address] HFA 5-13 puff by [facility] - (VENTOLIN 09:27: mouth via Med ical HFA) 90 58 inhaler Center mcg/actuati every 6 on inhaler (six) hours as needed for Wheezing. levothyroxi Yes 88ug Take [address] ne 5-13 mcg by [facility]ukes - (SYNTHROID, 09:27: mouth Medic al LEVOTHROID) 58 Every Center 88 MCG morning on tablet an empty stomach. sevelamer Yes 800mg Take [address] (RENVELA) 5-13 mg by [facility]ukes - 800 mg 09:27: mouth. Medical tablet 58 Center sulfamethox 2020- No 80mg{tr QD Take [address] azole-trime 5-05 05-08 imethop tablet (80 [facility] - thoprim 00:00: 23:59 rim} mg of Medical (BACTRIM,SE 00 :00 trimethopr Ce nter PTRA) im total) 400-80 mg by mouth per tablet daily for 3 days. doxycycline 2020- No 100mg Take [address] (VIBRAMYCIN 4-27 04-27 mg by [facility]ukes - ) 100 MG 16:01: 00:00 mouth. Medica l capsule 29 :00 Calder levoFLOXaci 2020- No 250mg QD Take [address] n -27 04-27 mg by [facility]ukes - (LEVAQUIN) 16:01: 00:00 mouth Medic al 250 MG 25 :00 daily. Center tablet predniSONE No 20mg QD Take [address] (DELTASONE) 10-19 04-27 by mouth Crispin es - 20 MG 16:00: 00:00 daily. Medical tablet 39 :00 Calder metoprolol No 50mg Q.5D Take [address] tartrate 09-13-22 by mouth 2 Luke s - (LOPRESSOR) 16:12: 00:00 (two) Medi rinku 50 MG 09 :00 times Center tablet daily. acetaminoph 2020- No 650mg Place [address] en 09-13-22 mg [facility]ukes - (TYLENOL) 16:11: 00:00 rectally Med ical 650 MG 56 :00 every 4 Center suppository (four) hours as needed for Fever. tamsulosin 2020- No .4mg QD Take [address] (FLOMAX) 09-03 capsule [facility]ukes - 0.4 mg Cap 00:00: 23:59 (0.4 mg Med ical 24 hr 00 :00 total) by Center capsule mouth daily for 30 days. finasteride 2020- No 5mg QD Take [address] (PROSCAR) 5 09-03 tablet (5 Yuliet kes - mg tablet 00:00: 23:59 mg total) Me dical 00 :00 by mouth Center daily for 30 days. oxybutynin 2020- No 5mg [id number] Take [address] (DITROPAN) 09-02 [id number] tablet (5 [facility] - 5 MG tablet 00:00: 23:59 3D mg total) Medical 00 :00 by mouth 3 Center (three) times daily for 30 days. aspirin 81 2020- No 81mg QD Take [address] MG EC 09-02 04-10 tablet (81 [facility] - tablet 00:00: 23:59 mg total) Medic al 00 :00 by mouth Center daily for 30 days. levoFLOXaci 0 2020- No 250mg QD Take [address] n 09-02 03-16 tablet [facility]ukes - (LEVAQUIN) 00:00: 23:59 (250 mg Med ical 250 MG 00 :00 total) by Center tablet mouth daily for 5 days. atorvastati Yes 40mg QD Take 40 mg Luis n (LIPITOR) 2-04 by mouth Meth cadence [...] mg times a per tablet day. clopidogreL 0 2020- No 75mg QD Take 75 mg Smith (PLAVIX) 75 07-29 by mouth Met hodi mg tablet 09:18: 00:[address] 02 :00 metoprolol No 25mg Take 25 mg Smith tartrate 07-29 by mouth Method i (LOPRESSOR) 06:06: 00:[address] 25 mg 31 :00 TAKES ONLY tablet WHEN BLOOD PRESSURE IS ELEVATED clopidogreL No 75mg QD Take 1 Akira ston (PLAVIX) 75 07-29- tablet (75 M ethodi mg tablet 00:00: 23:59 mg total) st 00 :00 by mouth daily for 30 days. Please resume plavix 2 days after surgery polyethylen 17g QD Take 17 g Smith e glycol 07-29 by mouth Method i (MIRALAX) 00:00: 23:[address] 17 gram 00 :00 30 days. packet Take while taking narcotic based pain meds. traMADoL 2020- No acute pain 50mg Q6H Take 1 Smith (Ultram) 50 07-29 tablet (50 M ethodi mg tablet 00:00: 23:59 mg total) st 00 :00 by mouth every 6 (six) hours as needed for moderate pain for up to 7 days .acute pain. atorvastati No 40mg QD Take [address] n (LIPITOR) 02-12- tablet (40 L ukes - 40 MG 00:00: 23:59 mg total) Medica l tablet 00 :00 by mouth Center nightly. clopidogreL No 75mg QD Take [address] (PLAVIX) 75 02-12 tablet (75 L ukes - mg tablet 00:00: 00:00 mg total) Me dical 00 :00 by mouth Center daily. multivitami 2019- No 1{tbl} QD Take [address] n with 02-02 tablet by Lukes - minerals 10:30: 00:00 mouth Medical tablet 11 :00 daily. Center metoprolol 2019- No 50mg Q.5D Take [address] (TOPROL-XL) 02-02 by mouth 2 L ukes - 50 MG 24 hr 10:30: 00:00 (two) Medi rinku tablet 08 :00 times Center daily. levothyroxi 2020- No 75ug Take [address] ne 8 08-11 mcg by Marybeth - (SYNTHROID, 10:28: 00:00 mouth Medi rinku LEVOTHROID) 56 :00 Every Center 75 MCG morning on tablet an empty stomach. Vital Signs Vital Name Observation Time Observation Value Comments Source Systolic blood 2020-11-04 09:27:00 136 mm[Hg] [facility] Diastolic blood 2020-11-04 09:27:00 78 mm[Hg] [facility] Heart rate 2020-11-04 09:27:00 101 /min [facility] Body temperature 2020-11-04 09:27:00 36.5 Jailyn [facility] Body weight 2020-11-04 09:27:00 78.835 kg [facility] BMI 2020-11-04 09:27:00 27.22 kg/m2 [facility] Respiratory rate 2020-10-27 17:00:00 18 /min [facility] Oxygen saturation in 2020-10-27 17:00:00 98 /min [facility] Arterial blood by Medical Ce nter Pulse oximetry Body height 2020-10-23 02:16:00 170.2 cm [facility] Systolic blood 2020-07-29 10:16:00 136 mm[Hg] Asadto n Jew pressure Diastolic blood 2020-07-29 10:16:00 65 mm[Hg] Sarah on Jew pressure Heart rate 2020-07-29 10:16:00 90 /min [place] [facility] Body temperature 2020-07-29 10:16:00 37.17 Jailyn [place] [facility] Oxygen saturation in 2020-07-29 10:16:00 95 /min [place] [facility] Arterial blood by Pulse oximetry Respiratory rate 2020-07-29 10:15:00 12 /min [facility] Body height 2020-07-29 05:29:00 177.8 cm [place] [facility] Body weight 2020-07-29 05:29:00 82.3 kg [place] [facility] BMI 2020-07-29 05:29:00 26.03 kg/m2 [place] [facility] Procedures Procedure Date / Time Performing Clinician Source Performed URINE CULTURE, ROUTINE 2020-11-04 15:40:00 Reina [facility] UA/M W/RFLX CULTURE, 2020-11-04 15:40:00 Sebas Huang [facility] MICROSCOPIC EXAMINATION 2020-11-04 15:40:00 Sebas Huang [facility] PREPARE LEUKO-REDUCED 2020-10-28 23:54:00 Keith [facility] RBC [facility] TRANSFUSE LEUKO-REDUCED 2020-10-27 11:34:36 Keith [facility] RED BLOOD CELLS [facility] HEMODIALYSIS INPATIENT 2020-10-27 07:47:37 Keith [facility] BASIC METABOLIC PANEL 2020-10-27 04:39:00 Sebas Huang [facility] (7) [facility] CBC W/PLT COUNT & AUTO 2020-10-27 04:39:00 Suzan Magdaleno [facility] BASIC METABOLIC PANEL 2020-10-26 03:41:00 Reina [facility] ([address] [place] [address] CBC W/PLT COUNT & AUTO 2020-10-26 03:41:00 RastaSuzan [facility] TISSUE EXAM 2020-10-25 18:39:00 Sebas Huang [facility] CYSTOSCOPY,INSERTION 2020-10-25 17:37:00 Sebas Huang [facility] - URETERAL STENTS [facility] POTASSIUM 2020-10-25 13:16:00 Cuauhtemoc Dixon [facility] HEPATITIS B SURFACE 2020-10-25 09:18:00 Robert Hector [facility] HEMODIALYSIS INPATIENT 2020-10-25 08:42:58 Robert Hector [facility] S t [facility] BASIC METABOLIC PANEL 2020-10-25 06:09:[address] [facility] (7) [facility] PHOSPHORUS 2020-10-25 06:09:00 Tawny [facility] CBC (HEMOGRAM ONLY) 2020-10-25 06:09:00 [facility] TYPE AND SCREEN, 2020-10-24 13:45:00 Sebas Huang CHI kes - AUTOMATED [facility] HEPATITIS B SURFACE 2020-10-23 14:18:00 [facility] ANTIGEN [facility] HEMODIALYSIS INPATIENT 2020-10-23 11:41:00 Jean Carlos [facility] BASIC METABOLIC PANEL 2020-10-23 04:31:00 Rayshawn Otero [facility] (7) [facility] CBC W/PLT COUNT & AUTO 2020-10-23 04:31:00 Tawny OteroManuel [facility] SARS-COV2/RT-PCR ([facility] & 2020-10-22 23:20:[address] [facility] - REF LABS) [facility] CT ABDOMEN/PELVIS WITH 2020-10-22 21:31:[address] IV CONTRAST [facility] CBC W/PLT COUNT & AUTO 2020-10-22 21:12:00 [facility] URINE CULTURE 2020-10-22 11:48:00 Sebas [facility] BASIC METABOLIC PANEL 2020-10-22 11:48:[address] [facility] (7) [facility] CBC W/PLT COUNT & AUTO 2020-10-22 11:48:00 Sebas Huang [facility] - DIFFERENTIAL [facility] PT/APTT 2020-10-22 11:48:00 Sebas Huang [facility] TYPE AND SCREEN, 2020-10-22 11:48:00 Sebas Huang CHI kes - AUTOMATED [facility] CT ABDOMEN/PELVIS WITH & 2020-09-21 13:12:[address] [facility] - WITHOUT IV CONTRAST [facility] er MR ABDOMEN WITHOUT IV 2020-09-02 11:20:[address] [facility] - CONTRAST [facility] MR PELVIS WITHOUT IV 2020-09-02 11:20:00 Sebas Huang [facility] - CONTRAST [facility] TISSUE EXAM 2020-08-31 12:53:[address] [facility] - [facility] FL FLUORO NON-SPECIFIC 2020-08-31 12:50:00 Sebas [facility] - UP TO 1 HOUR [facility] CYSTOSCOPY,INSERTION 2020-08-31 11:42:00 Sebas Huang CHI - URETERAL STENTS [facility] CBC W/PLT COUNT & AUTO 2020-08-31 04:50:00 Arianna Whitt [facility] COMPREHENSIVE METABOLIC 2020-08-31 04:50:[address] [facility] MAGNESIUM 2020-08-31 04:50:00 Pedro Farris [facility] NM MYOCARDIAL PERFUSION 2020-08-30 16:44:00 Sebas Huang [facility] - SPECT, PHARM(LEXISCAN) [facility] enter HEMODIALYSIS INPATIENT 2020-08-30 11:55:05 Jluis Parker [facility] CBC W/PLT COUNT & AUTO 2020-08-30 05:14:00 OnArianna salcido [facility] LIPID PANEL 2020-08-30 05:14:00 Ty, [facility] 2D ECHO W/ DOPPLER 2020-08-29 13:22:39 Ty, [facility] (CW/PW/COLOR) [facility] T4, FREE 2020-08-29 12:22:00 Ty, [facility] TSH 2020-08-29 12:22:00 Ty, [facility] FERRITIN 2020-08-29 12:22:00 Ty, [facility] VITAMIN B12 2020-08-29 12:22:00 Ty, [facility] PSA 2020-08-29 12:22:00 Ty, Humberto [facility] US RENAL COMPLETE 2020-08-29 11:15:00 Sebas Huang CHASITY [facility] BRAIN WITHOUT IV 2020-08-29 05:02:00 Steve Welsh [facility] TROPONIN I 2020-08-29 04:21:00 Emilio [facility] BASIC METABOLIC PANEL 2020-08-29 04:21:00 Jose Eduardo [facility] () [facility] CBC W/PLT COUNT & AUTO 2020-08-29 04:21:00 Jose Eduardo [facility] RETICULOCYTE COUNT 2020-08-29 04:21:00 Ty, Humberto [facility] OCCULT BLOOD, STOOL 2020-08-29 02:52:00 Owen Jhaveri [facility] TROPONIN I 2020-08-28 16:08:00 Emilio [facility] HEPATITIS B SURFACE 2020-08-28 16:06:00 [facility] ANTIGEN [facility] HEPATITIS B SURFACE 2020-08-28 15:26:00 [facility] ANTIBODY [facility] HEMODIALYSIS INPATIENT 2020-08-28 11:36:37 [facility] TROPONIN I 2020-08-28 05:56:00 Dukegvacannie [facility] CBC W/PLT COUNT & AUTO 2020-08-28 05:56:00 [facility] BASIC METABOLIC PANEL 2020-08-28 05:56:00 Pedro Farrisrobbie [facility] ([facility] HEMOGLOBIN A1C 2020-08-28 01:19:00 [facility] URINE CULTURE 2020-08-28 01:05:00 [facility] URINALYSIS W/ REFLEX 2020-08-28 01:05:00 Owen Jhaveri [facility] URINE CULTURE [facility] CBC W/PLT COUNT & AUTO 2020-08-28 01:05:00 [facility] COMPREHENSIVE METABOLIC 2020-08-28 01:05:00 Janette Jhaveri [facility] MAGNESIUM 2020-08-28 01:05:00 Owen Jhaveri [facility] PHOSPHORUS 2020-08-28 01:05:00 [facility] PROTHROMBIN TIME/INR 2020-08-28 01:05:00 Owen Jhaveri [facility] HEPATIC FUNCTION PANEL 2020-08-28 01:05:00 Emilio [facility] LIPID PANEL 2020-08-28 01:05:00 [facility] REPORT OF PROCEDURE - 2020-08-27 00:00:00 Provider[facility]oko [facility] [place] AN ELECTIVE 2020-07-29 08:11:47 Rafael Blas Meth odist ENDOTRACHEAL AIRWAY THROMBECTOMY, GRAFT, AV 2020-07-29 07:39:00 Jose Keen POTASSIUM, SYRINGE 2020-07-29 07:00:00 Jose Keen POTASSIUM, SYRINGE 2020-07-29 06:11:00 Jose Keen HEMOGLOBIN, SYRINGE 2020-07-29 06:11:00 Jose Keen GLUCOSE LEVEL, SYRINGE 2020-07-29 06:11:00 Jose Keen ECG PRE/POST OP 2020-07-27 15:26:54 Rose Garcia HEMOGLOBIN A1C 2020-07-27 15:19:00 Rose Garcia HEMOGLOBIN 2020-07-27 15:19:00 Jose Keen ethodist POTASSIUM LEVEL 2020-07-27 15:19:00 Jose Keen ethodist GLUCOSE LEVEL 2020-07-27 15:19:00 Jose Keen ethodist COVID-19 QUALITATIVE PCR 2020-07-27 14:57:00 Jose Keen RHYTHM STRIP - SCAN 2020-02-19 12:30:59 Provider, [facility] RHYTHM STRIP - SCAN 2020-02-17 14:22:17 Provider, [facility] TRANSFUSION SERVICE 2020-02-13 18:04:02 Provider, [facility] REPORT [facility] HEMODIALYSIS INPATIENT 2020-02-13 13:28:00 Dong Bryson [facility] HEPATITIS B SURFACE 2020-02-13 13:05:00 Dong Bryson [facility] POCT-GLUCOSE METER 2020-02-13 12:52:00 Bin Acevedo [facility] POCT-GLUCOSE METER 2020-02-13 05:48:00 Bin Acevedo [facility] CBC (HEMOGRAM ONLY) 2020-02-13 02:53:00 Tanika Garza [facility] BASIC METABOLIC PANEL 2020-02-13 02:53:00 Tanika Garza [facility] S [facility] () [facility] MAGNESIUM 2020-02-13 02:53:00 Rodolfo Haji [facility] CORTISOL 2020-02-13 02:53:00 Rodolfo Haji [facility] POCT-GLUCOSE METER 2020-02-13 00:21:00 Bin Acevedo [facility] TSH/FREE T4 IF INDICATED 2020-02-12 23:19:00 Rodolfo Haji miladis [facility] COMPREHENSIVE METABOLIC 2020-02-12 17:46:00 Rodolfo Hajijonathan valderrama [facility] MAGNESIUM 2020-02-12 17:46:00 Rodolfo Haji [facility] CBC (HEMOGRAM ONLY) 2020-02-12 17:31:00 Rodolfo Haji [facility] PT/APTT 2020-02-12 17:31:00 Rodolfo Haji [facility] CALCIUM, IONIZED 2020-02-12 17:31:00 Rodolfo Haji [facility] BLOOD GAS, ARTERIAL 2020-02-12 17:31:00 Rodolfo Haji [facility] RRL CRITICAL LABS 2020-02-12 10:34:53 [facility] (ABG,NA,K,H&H,GLUCOSE) Medical C enter SODIUM NA-STAT LAB 2020-02-12 10:34:53 [facility] POTASSIUM-STAT LAB 2020-02-12 10:34:53 [facility] GLUCOSE-STAT LAB 2020-02-12 10:34:53 [facility] HGB/HCT (H&H) - STAT LAB 2020-02-12 10:34:53 [facility] TISSUE EXAM 2020-02-12 09:33:00 Kristina [facility] POCT-ACT 2020-02-12 09:12:00 Kristina [facility] ENDARTERECTOMY,CAROTID 2020-02-12 07:49:00 [facility] POTASSIUM-STAT LAB 2020-02-12 06:33:00 Bin Acevedo [facility] HGB/HCT (H&H) - STAT LAB 2020-02-12 06:33:00 Bin Acevedo [facility] GLUCOSE-STAT LAB 2020-02-12 06:33:00 Bin Acevedo [facility] CBC W/PLT COUNT & AUTO 2020-02-12 06:33:00 Bin Acevedo [facility] - DIFFERENTIAL [facility] BASIC METABOLIC PANEL 2020-02-12 06:33:00 Kristina Bin [facility]ued[facility] - (7) [facility] TYPE AND SCREEN, 2020-02-12 06:33:[address] [facility] - AUTOMATED [facility] SARS-COV2/RT-PCR ([facility] & 2020-02-12 05:57:[address] [facility] - REF LABS) Medical Center POCT-GLUCOSE METER 2020-02-12 05:38:00 Bin Acevedo [facility] TRANSFUSION SERVICE 2020-02-04 18:05:56 ProviderYoko [facility] - REPORT - SCAN [facility] TYPE AND SCREEN, 2020-02-03 10:48:[address] [facility] - AUTOMATED [facility] ECG 12-LEAD 2020-02-03 10:36:29 Tanika Garza [facility] Center Plan of Care Planned Activity Planned Date Details Comments Source Future Scheduled 2021-08-[address] [facility] - Test 00:00:00 malignant neoplasm of [facility] colon (procedure) [code = 885301957] Future Scheduled 2021-02-[address] [facility] - Test 00:00:00 (Season Ended) [code = [facility] INFLUENZA VACCINE (Season Ended)] Future Scheduled 2021-01-23 INFLUENZA VACCINE [place] [facility] 00:00:00 [code = INFLUENZA VACCINE] Future Scheduled 2020-09-07 COVID-19 VACCINE (2 - [place] [facility] 00:00:00 Pfizer 2-dose series) [code = COVID-19 VACCINE (2 - Pfizer 2-dose series)] Future Scheduled 2011-05-[address] [facility] - Test 00:00:00 WELLNESS (YEAR 2 or Medical Center FIRST YEAR if no IPPE) [code = MEDICARE ANNUAL WELLNESS (YEAR 2 or FIRST YEAR if no IPPE)] Future Scheduled 2010 PNEUMOCOCCAL 65+ YRS [facility] - Test 00:00:00 (1 of 1 - Medical Center [id number] PCV13) [code = PNEUMOCOCCAL 65+ YRS (1 of 1 - [id number] PCV13)] Future Scheduled 1995 COLONOSCOPY SCREENING [place] [facility] 00:00:00 [code = COLONOSCOPY SCREENING] Future Scheduled 1995 SHINGLES VACCINES (#1) [place] [facility] 00:00:00 [code = SHINGLES VACCINES (#1)] Future Scheduled 1995 SHINGLES VACCINES ([address] [facility] - Test 00:00:00 of 2) [code = SHINGLES Medic al Center VACCINES (1 of 2)] Future Scheduled 1964 DTAP/TDAP/TD VACCINES [facility] - Test 00:00:00 (1 - Tdap) [code = Medical C enter DTAP/TDAP/TD VACCINES (1 - Tdap)] Future Scheduled 1963 Hepatitis C screening [place] [facility] 00:00:00 (procedure) [code = 594955934] Future Scheduled 1963 HEPATITIS C SCREENING [facility]00 [code [facility]] Encounters Start End Encounter Admission Attending Care Care Encounter Source Date/Time Date/Time Type Type Clinicians Facility Department ID 2020-08-26 2020-08-26 Outpatient [facility] [id number] [place] 00:00:00 00:00:00 JOSE [address] 2020-07-29 2020-07-29 Outpatient [place] [id number] [place] 00:00:00 00:00:00 JOSE [address] 2020-07-27 2020-07-27 Outpatient [facility] [id number] [place] 00:00:00 00:00:00 JOSE [address] 2020-07-22 2020-07-22 Outpatient [facility] [id number] [place] 00:00:00 00:00:00 JOSE [address] Results Test Description Test Time Test Comments Results Result Comments Source UA/M W/RFLX CULTURE, ROUT 2020-11-05 22:06:00 Test Item Value Reference Range Interpretation Comme nts Specific [place], UA (test 1.014 1.005-1.03 code = 2965-2) pH, UA (test code = 5803-2) >=9.0 5.0-7.5 A Color, UA (test code = [place] Yellow 9796-4) Appearance (test code = Cloudy Clear A ) WBC Esterase (test code = 1+ Negative A 20110322) Protein, UA (test code = 3+ Negative/T A 61751-9) Glucose, Urine (test code = Trace Negative A 00990-2) Ketones, UA (test code = Negative Negative 2514-8) Blood, UA (test code = 3+ Negative A 67306-6) Bilirubin, UA (test code = Negative Negative 5770-3) Urobilinogen,Semi-Qn (test 0.2 mg/dL 0.2-1 code = 2359142) Nitrite, UA (test code = Negative Negative 67750-2) Microscopic Examination See below: Micr oscopic was (test code = 7403913) indica radha and was performed. Urinalysis Reflex (test Comment This specimen has code = 1347553) reflexed to a Urine Culture. ТАТЬЯНА (test code = ТАТЬЯНА) Performed at: [address] [place] [address] [id number] Director: Calderon Silver MD, Phone: [phone] Lab Interpretation (test Abnormal code = 64617-1) [facility] [id number] 22:06:00 Test Item Value Reference Range Interpretation Comments Urine Culture, Final report Routine (test code = 20110131) Result 1 (test code = No growth 4976418) ТАТЬЯНА (test code = ТАТЬЯНА) Performed at: [facility] [id number] Director: Calderon Silver MD, Phone: [phone] [facility] CenterMICROSCOPIC [id number] 22:06:00 Test Item Value Reference Range Interpretation Comments WBC (test code = >30 See_Comment A [Automated 20110227) message] The system which generated this result transmitted reference range : 0 - 5 /hpf. The reference range was not used to interpret this result as normal/abnormal . RBC (test code = >30 See_Comment A [Automated 20110305) message] The system which generated this result transmitted reference range : 0 - 2 /hpf. The reference range was not used to interpret this result as normal/abnormal . Epithelial Cells (non None seen See_Comment [Auto mated renal) (test code = message] The 20110313) system which generated this result transmitted reference range : 0 - 10 /hpf. Th e reference range was not used to interpret this result as normal/abnormal . Casts (test code = None seen None seen /lpf 20110307) Bacteria (test code = None seen None seen/ ) ТАТЬЯНА (test code = ТАТЬЯНА) Performed at: [facility] Lab[address] [id number] Director: Calderon Silver MD, Phone: [phone] Lab Interpretation Abnormal (test code = 76854-6) [facility] Leuko-Red [id number] 23:54:00 Test Item Value Reference Range Interpretation Comments CROSSMATCH (test code = 2264) COMPATIBLE Unit ABO (test code = O Pos 8153588) UNIT NUMBER (test code = [id number] 934-0) Status (test code = 3630814) TX_TIMEINCHART Blood Bank Product (test code RED BLOOD CELLS = 2263) PRODUCT CODE (test code = W7089U82 933-2) [facility] CenterTissue [id number] 10:04:00 Test Item Value Reference Range Interpretation Comments Case Report (test code Surgical Pathology = 104) Report Case: [id number] Authorizing Provider: Sebas Huang, Collected: 10/25/2020 06:39 PM Ordering Location: [address] Med/Surg Received: 10/26/2020 07:45 AM Pathologist: Ariana Victor MD Specimens: A) - Bladder Tumor, Bladder clots and right ureteral tumor B) - Bladder Biopsy, Left Wall, left bladder wall C) - Bladder Biopsy, Wall, posterior bladder wall DIAGNOSIS (test code = y4asdMIjBEKvz6siMPImeU 3220) FuZzEwMzNcZnRuYmpcdWMx IHtccnRmMVxlcGljOTIwMl qrdzZoSREfgDKrI6Ttgxog PDsmRK8uLP2tzKkltHAazX IzGIBuEwLmj1pst916gXKt g5vbDLFElavnrJm8yLiqX7 2pf2N0IzgaM59wgITiVVhq bGFpblxmczIwIEEuIEJMQU ITJZFxK0qSQAViZT8UAEKL R4cVHNVOIIIVBpEEOXTEOJ 5IIEPOOH9PI0b6GZRrfwPx DBQxBZqDS8wdX5YVSWBnHO PCBQfWZNeYNQVVLZPSSL6I ZZIoYW9zPLRGFXXCM6AJFF 2IUC4RJIcZXP1NZsaRH4Bm XW7YD1MGV3uGMAMSPSYZOp FOVUxBVElPTiBUSVNTVUUg Jq2LTILECE4MXYZodfOmDE UuYWJBIY7UMNbKSiXPDLHb BQ0DYrVYIZONGSFPXXUWUH 1JTkEgUFJPUFJJQVxwYXIg ICAgLSBOTyBERUZJTklUSV ZKDE3FQ0SHJXCUCKTtCOAX NEBTHNJDQiCSDgXCIY8KJD DSEdFQMsNAXQHKFS3VLPLj bpekOSOuOt8iWOSJAQXPAP EALDJNLDaHWHzmKQEJW4JJ BSbtiSIgJOWiBN9cCQLFNB sBNFpYPUUZCTEIN2TjGY0P M0WAPEXGFBZADuYNEYdWU0 8FBvRPJQXonwXvWAByNW9D QB8YP0RJGCHFRTTwCXZSUX DSJAEVPbBJUzLSZP9MJFYN RxETBzLTQYTOKA4RLAGkjB LrEVHodqRTRbTKU0IPKNBC O9AyFfqYPZKNNfZKNVqUSB XMCA0CX2p2SCFnwvChZCUw HQJGC9NQKOlRJLvzBIKAG7 JDDVMSSFdBDDlVJYIZX8Jj FCYEIPqNAA5VMEBplMUkKE OhGS2bHUEMM4YZHWIFIaEZ Mf6UIwiNYAgFXFIKBPQQGp PyqTFcUAVoyiBLMy9toMrv KHF5a5zabPOlZBZnoGNuCW AwMFxhbnNpXGRlZmxhbmcx PKEfXJP9wbBqLNUjAZceCD JyLJxiDt9ucQTwbTmqVbAb HNXxa2znqrDAyfolgLf0f9 vvGMXmPeF3eCTsHCskI1yb buSfwMQdPDIkFEg6kD46GE SdlU1sqIWwHEbfplAtCcZ3 TEegXOAlYcG2IFOovSIaPK PrP2auLLVrRSnwPEUfHBng cQPjYJO0iVxam4Z9dJDuyD XndFmrIrTgWlAhLyFJb5Il NEv3sYopW5HhHZSiItZ8yW QgUGFyYWdyYXBoIEZvbnQ7 pR52FUzfglP0xWEii8Gjk1 3ud303cC3luHHfMTU5RLJo QQStiLFwWBVkXBH2ZXKdcT FvF2ndGEFrVV0kptfjYBxn JKueOYXwxOS0PITjiDSfR5 WcRAIkEHzwAOTcoia7ObDf Ji1ymOYdqIpiIHyll9jfj9 ogeHLdWpd8AAEaSoPoBhwb ALctz1Nmq3wfYVTbqh6bSY A7iTFubDogu0Q6nJXfXWKn nKTsEOUbZK6uwAQvARYhjS 5ucmxjXHBnYnJkcmhlYWRc sHkfryYrRs7glWgoHLJ0PC lnC2vzrW1qXgI0HSpuX6tb fV1bCGw2TNriECXkoVK8lu N9XTJjtSNxS6TleT7wDDXx LJ2bpop3c1mwYMX2VWqsXH XrMvC7gxE9FDUluGBqBBSx gWcbAAubl387LNH1RoFuTY Jim5VcU3QdsDkhP80gySpe Y00yFSQrvQvvaM2ghFdaoP 2hYtIhAyPdYQybnNmnVH9a MZAuZ1qytABkIFUcGZHgV0 nmEbSliT4byVnlOMnasaAk TONgSlj2WAZwfREePRUoZp i1TAOtLXAjH99bzwbaJRM8 jG8jp6vgd8AeDSucZMJ7VO Kvu63kPWetjcR1MLuvNu51 PJzpWeW2EIxcIDY3oF== CPT Code(s) (test code s3tsqCVzJAXruAJ0BvEmBO = 3357) Auk4rsc6GvwSLomAXeXJml aQGwnsQkct71tDZ4iE37HL 0jENLhBwM0QRIanzJ3Tao2 IKMvVZWdyNOjV378w9xxn3 xoqnWwmFA6tNjkTHNzNSFb YWluXGZzMjAgODgzMDUgeD NccGFyfQ== CLINICAL HISTORY (test j7cgiCIjBTFswAI3GhFtZR code = 3356) Jsm1lic2CkqVQazMTvFDau xUMhlwFwrt66nMM9gL58PM 1oTDNjUbN2XEFfmfE9Ezu6 FFExPIJnbHItT161g8mqh5 bgzuAtkHV4xQqnOFDzNPOu BNajAMYbBjQmGESqJXR6oo ynIYBps5BoG5audANrEEQ6 nNHgJQOfUZJofqGcRFJ8zD 0oRQShtz8= SPECIMEN SOURCE (test w6iiiFHzJYAjhKC5PbHwLG code = 3377) Pox3cdd6SdcFIfhVWgCCfd mSOzeeWecs89kUV6zV57YM 4qMSOpQhE6QDIezmK1Ani5 DUYhTIUvvMTgG943y9exy9 fdusCofDJ1aWpgHMQkDSBz HMasKXAsLlKdEQ3jUqqhLL EkjqNfvC29xyFmllTseqkv aHQgdXJldGVyYWwgdHVtb3 Q4HJBjGZinKqFtLxdvJZIg wkV6AFciMtAAHsGJl0F1AR Chg5MgAitqZESkkiZ1ESep XHBhcn0= GROSS DESCRIPTION (test d5wzdVNpYYFjfRM5AzKmZS code = 3366) Zdd0rxj1FftAPbfHFnNGho hZSgksCmga55uVL2sD00YR 2pCWCbHyX0JBQvmqT7Wqf6 CNBjFBJfoJPcG113y9iug1 dhhmRwaIX4oJbxBKLwAFXo MOckFHIuKzDbD8EnF2otMS 4gQSBpcyByZWNlaXZlZCBp apExaVfvcBn3BWWrtpZbcN IzMRsaBGV2fWJqKNViMNYf NUPpTX78W7EyjvIjXPhkdP VkaWNhbCByZWNvcmQgbnVt QiNsANOwQATpXAGkG64lwW VkIGFzICJibGFkZGVyIHR1 pP3zDfCswtCgU61us4rkuG Shc9PoaOAejJhylXBgasBk PMVng3rcUKLdl2N6YKTpbe JpkAQeyPYcmBHxn5IziP6d IYzjEGI6ZGLnMCL5BPVpRM AcuF7cNRquBXApQUCghDTw OVyxLGTudNSew7GbXRWvBQ YwyNqdAI08xMamu1EoBcua a5VqM7pweR3kCd8wOMlciC vez5VdQABcPDbsVA24twFd cmUgaWRlbnRpZmllZCBtZW MuxEHxmlkmJK58JTszTS9y UYfiUB53HZPdANnePZWhC9 BpO8K7GM2dPHflEOYet8J7 ZSBmcmFnbWVudHMgYXJlIG TipMubXZf9IAW3Kg3ilLMi ZCBpbnRvIEExIHRvIEEyIG FuZCByZXByZXNlbnRhdGl2 BKHeQDG4eG7xajEvUtJ4iK VdGrpnf8NjF3mhwKUcipEg s7QehXa1zHMpXSdujY3kSR MuICBccGFyXHBhciBTcGVj jT7nowKNEMhxOGNcF9Xbqk BySVwdNXZcaGW0sTKaWYWi ZCBsYWJlbGVkIHdpdGggdG hdSZTlkOgjkxQrgcJvMR0k FIWeZSMiS3YwHCLsI31mXA BpsO5sNLDlQH4zHFKgd1du zsI2VXYuKOOyTsFiBOWsMZ QnZddbjBM4LCxcFwTjx9Ju tMLdIN8cMLMvxuNqb1UdZB 4rYHRhjUgwww64SP6rwHvy l8PjGMUjOWvfSP74apN5vN R9OGmjHAIwJXDezIDidmQk stAobVMzmFWmjQ8bgaPwl2 3oDEHnJTM3jXZboFRlGoMj C47cdkXywCClUM94kGRusF mjl9IqnCg2cLSvGMfpkL5q QjEuIFxwYXJccGFyIFNwZW NpbWVuIEMgaXMgcmVjZWl2 CORtdD4lIor7TYPbckXtUQ 4hSRwrQlSdMQQyo4o1gRF2 rTHxaRS8oYRrzIydHW7gwA UfVW6aUPbcTBhpwoXck8Fg BZ13iAAnsmJsxlUtANAvuG duYXRlZCBhcyAiYmxhZGRl ifFatF9qf7csb5SwfJNgSI 0wWLSpglFrj0UpQZ9tGJLj wBuflp88NH2ujYvbs1LuOS BzENetKB29VRHlASYvlWNb WA40CHHmBFvqCOpsJIB8RH T2GVMyrRRkh8cooy5xTRdn GPOoy3A2SABwanAlmVUtcK BpcyBlbnRpcmVseSBzdWJt oJE9MPRsaF92tyOXRW1bGW HTRg8tzCJncPCtqW== MICROSCOPIC DESCRIPTION r1fohLVwBDHqpJR6DyKtCT (test code = 3371) Csi1par5PbeZDdsDVyMQnm kDZvssKzql64kXQ9oW10RB 0yUBRmDjR1ILEhsyB0Xbu2 ASEdWPCwzKKnE684o4kcm8 gisfEltEC1bVyfTOJjZZCl DRtsYKOqHrKpIY0TFeSPOA Bgs1JgGUSoKIZujx5= Gross assessment was [facility] performed at ([facility], Department = 2777) of Pathology, [address] [place] [address], Technical component was [facility] performed at ([facility], = 2778) Department of Pathology, [address] [place] [address], Professional component [facility] was performed at ([facility], Department code = 2779) of Pathology, [address] [place] [address], [facility] [id number] 10:04:00Surgical Pathology Report Case: [id number] Authorizing Provider: Sebas Huang, Collected: 10/25/2020 06:39 PM OrderingLocation: [facility] 04A Med/Surg Received: 10/26/2020 07:45 AM Pathologist: Ariana Victor MD Specimens: A) -Bladder Tumor, Bladder clots and right ureteral tumor B) - Bladder Biopsy, Left Wall, left bladder wall C) - Bladder Biopsy, Wall, posterior bladder wall A. 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 LEFT BLADDER WALL, BIOPSY: - UROTHELIAL MUCOSA, NEGATIVE FOR MALIGNANCY - NO MUSCULARIS PROPRIA IS PRESENT FOR EVALUATION C. POSTERIOR BLADDER WALL, BIOPSY: - UROTHELIAL MUCOSA, NEGATIVE FOR MALIGNANCY - MUSCULARIS PROPRIA IS PRESENTMG/pl Signing Pathologist Direct Phone Line: [phone] signed by Ariana Victor MD on 10/27/2020 at 10:04 [id number] unspecified type, ureteral tumorA. Bladder clots and right ureteral tumor; B. Left bladder wall; C. Posterior bladder wallSpecimen A is received in fixative and labeled with the patient's name, medical record number and designated as "bladder tumor" and consists of multiple red-brown tissue fragments measuring 7.0 x 5.0 x 2.0 cm. The specimen is composed predominantly of blood clot. Focal tissue fragments are identified measuring 1.5 x 1.0 x 0.5 cm in aggregate. The tissue fragments are entirely submitted into A1 to A2 and software support representative sections of the blood clot are submitted into A3. Specimen B is received in fixative and labeled with the patient's name, medical record number and designated as "bladder biopsy left wall" and consists of a pink-pineda tissue fragments that is 0.5 cm in greatest dimension. The tissue fragment is entirely submitted into B1. Specimen C is received in fixative and labeled with the patient's name, medical record number and designated as "bladder biopsy wall" and consists of a pink-pineda tissue fragment that is 0.5 cm in greatest dimension. The tissue fragment is entirely submitted into C1. MG/pl A-C: Performed [facility], Department of Pathology, [address] [place] [address], [facility], Department of Pathology, [address] [place] [address], [facility] of [facility], [address] [place] [address], [facility] [id number] 05:29:00 Test Item Value Reference Range Interpretation Comments Sodium (test code = 139 meq/L 109-227 4889-2) Potassium (test code = 5.1 meq/L 3.6-5.5 2823-3) Chloride (test code = 102 meq/L 98-106 5-0) CO2 (test code = 26 meq/L -29 2027-9) BUN (test code = 32 mg/dL 10-26 H 3094-0) Creatinine (test code 9.44 mg/dL 0.5-1.2 H = 2160-0) Glucose (test code = 107 mg/dL 70-110 2345-7) Calcium (test code = 8.8 mg/dL 8.5-10.5 82960-5) EGFR (test code = 5 mL/min/1.73 [place] [address]-4) NOT ACCURATE CREATININE CLEARANCE IN PREDICTING GLOMERULAR FILTRATION RATE . ESTIMATED GFR I S NOT APPLICABLE FOR DIALYSIS PATIENTS. ТАТЬЯНА (test code = ТАТЬЯНА) Dye Machine Tender ID - [id number] ID - [id number] ID - [id number] ID - [id number] ID - [id number] ID - [id number] ID - [id number] ID - [id number] ID - insh27Wmiuvdop ID - [id number] ID - [id number] ID - [id number] ID - [id number] Lab Interpretation Abnormal (test code = 84428-8) [facility] METABOLIC [id number] 05:29:00 Test Item Value Reference Range Interpretation Comments SODIUM (BEAKER) 139 meq/L 135-148 (test code = 381) POTASSIUM (BEAKER) 5.1 meq/L 3.6-5.5 (test code = 379) CHLORIDE (BEAKER) 102 meq/L 98-106 (test code = 382) CO2 (BEAKER) (test 26 meq/L -29 code = 355) BLOOD UREA NITROGEN 32 mg/dL 10-26 H (BEAKER) (test code = 354) CREATININE (BEAKER) 9.44 mg/dL 0.50-1.20 H (test code = 358) GLUCOSE RANDOM 107 mg/dL 70-110 (BEAKER) (test code = 652) CALCIUM (BEAKER) 8.8 mg/dL 8.5-10.5 (test code = 697) EGFR (TANA) (test 5 mL/min/1.73 ESTIMAT ED GFR IS code = 1092) sq m NOT ACCURATE CREATININE CLEARANCE IN PREDICTING GLOMERULAR FILTRATION RATE . ESTIMATED GFR I S 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 Dye Machine Tender ID - [id number] ID - [id number] ID - [id number] ID - vpya50Tewgbpcs ID - gfwb53Zpkobjlf ID - [id number] ID - jfxb65Bglgikfr ID - aafy22Vyeaxtay ID - uavm33Tvbojibe ID - [id number] ID - [id number] ID - [id number] ID - [id number] with platelet count + automated [id number] 05:09:00 Test Item Value Reference Range Interpretation Comments WBC (test code = 6690-2) 7.6 See_Comment [A utomated message] The system [employer] generated this result transmitted ref erence range: 4.0 - 10 .0 K/L. The refe rence range was not u sed to interpret this result as normal/abnor mal. RBC (test code = 789-8) 2.28 See_Comment L [Au tomated message] The system [employer] generated this result transmitted ref erence range: 4.20 - 5 .80 M/L. The refe rence range was not u sed to interpret this result as normal/abnor mal. MCHC (test code = 786-4) 31.3 See_Comment L [A utomated message] The system [employer] generated this result transmitted ref erence range: 32.0 - 3 6.0 GM/DL. The refe rence range was not u sed to interpret this result as normal/abnor mal. Hematocrit (test code = 23.3 % 36-50 L 4544-3) MCV (test code = 787-2) 102.2 fL 82-99 H MCH (test code = 785-6) 32.0 pg 27-33 RDW (test code = 788-0) 16.6 % 12-15 H Platelets (test code = 284 See_Comment [Aut omated message] 627-3) The system [employer] generated this result transmitted ref erence range: 150 - 43 0 K/CU MM. The referen ce range was not u sed to interpret this result as normal/abnor mal. MPV (test code = 9.6 fL 6-11.5 97357-3) nRBC (test code = 413) 0 See_Comment [Aut omated message] The system [employer] generated this result transmitted ref erence range: 0 - 0 /1 00 WBC. The refere nce range was not u sed to interpret this result as normal/abnor mal. % Neutros (test code = 68 % 429) % Lymphs (test code = 17 % 430) % Monos (test code = 11 % 431) % Eos (test code = 432) 3 % % Baso (test code = 437) 0 % # Neutros (test code = 5.16 See_Comment [Aut omated message] 670) The system [employer] generated this result transmitted ref erence range: 1.80 - 8 .00 K/L. The refe rence range was not u sed to interpret this result as normal/abnor mal. # Lymphs (test code = 1.26 See_Comment L [Auto mated message] 414) The system [employer] generated this result transmitted ref erence range: 1.48 - 4 .50 K/L. The refe rence range was not u sed to interpret this result as normal/abnor mal. # Monos (test code = 0.84 See_Comment [Autom ated message] 415) The system [employer] generated this result transmitted ref erence range: 0.00 - 1 .30 K/L. The refe rence range was not u sed to interpret this result as normal/abnor mal. # Eos (test code = 416) 0.25 See_Comment [Au tomated message] The system [employer] generated this result transmitted ref erence range: 0.00 - 0 .50 K/L. The refe rence range was not u sed to interpret this result as normal/abnor mal. # Baso (test code = 417) 0.03 See_Comment [A utomated message] The system [employer] generated this result transmitted ref erence range: 0.00 - 0 .20 K/L. The refe rence range was not u sed to interpret this result as normal/abnor mal. Immature 1 % 0-0 H Granulocytes-Relative (test code = 2801) Lab Interpretation (test Abnormal code = 40474-7) [facility] W/PLT COUNT & AUTO [id number] 05:09:00 Test Item Value Reference Range Interpretation Comments WHITE BLOOD CELL COUNT (BEAKER) 7.6 K/ L 4.0-10.0 (test code = 775) RED BLOOD CELL COUNT (BEAKER) 2.28 M/ L 4.20-5.80 L (test code = 761) HEMOGLOBIN (BEAKER) (test code = 7.3 GM/DL 13.0-16.8 L 410) HEMATOCRIT (BEAKER) (test code = 23.3 % 36.0-50.0 L 411) MEAN CORPUSCULAR VOLUME (BEAKER) 102.2 fL 82.0-99.0 H (test code = 753) MEAN CORPUSCULAR HEMOGLOBIN 32.0 pg 27.0-33.0 (BEAKER) (test code = 751) MEAN CORPUSCULAR HEMOGLOBIN CONC 31.3 GM/DL 32.0-36.0 L (BEAKER) (test code = 752) RED CELL DISTRIBUTION WIDTH 16.6 % 12.0-15.0 H (BEAKER) (test code = 412) PLATELET COUNT (BEAKER) (test 284 K/CU MM 150-430 code = 756) MEAN PLATELET VOLUME (BEAKER) 9.6 fL 6.0-11.5 (test code = 754) NUCLEATED RED BLOOD CELLS 0 /100 WBC 0-0 (BEAKER) (test code = 413) NEUTROPHILS RELATIVE PERCENT 68 % (BEAKER) (test code = 429) LYMPHOCYTES RELATIVE PERCENT 17 % (BEAKER) (test code = 430) MONOCYTES RELATIVE PERCENT 11 % (BEAKER) (test code = 431) EOSINOPHILS RELATIVE PERCENT 3 % (BEAKER) (test code = 432) BASOPHILS RELATIVE PERCENT 0 % (BEAKER) (test code = 437) NEUTROPHILS ABSOLUTE COUNT 5.16 K/ L 1.80-8.00 (BEAKER) (test code = 670) LYMPHOCYTES ABSOLUTE COUNT 1.26 K/ L 1.48-4.50 L (BEAKER) (test code = 414) MONOCYTES ABSOLUTE COUNT (BEAKER) 0.84 K/ L 0.00-1.30 (test code = 415) EOSINOPHILS ABSOLUTE COUNT 0.25 K/ L 0.00-0.50 (BEAKER) (test code = 416) BASOPHILS ABSOLUTE COUNT (BEAKER) 0.03 K/ L 0.00-0.20 (test code = 417) IMMATURE GRANULOCYTES-RELATIVE 1 % 0-0 H PERCENT (BEAKER) (test code = 2801) BASIC METABOLIC [id number] 05:21:00 Test Item Value Reference Range Interpretation Comments SODIUM (BEAKER) 140 meq/L 135-148 (test code = 381) POTASSIUM (BEAKER) 5.4 meq/L 3.6-5.5 (test code = 379) CHLORIDE (BEAKER) 101 meq/L 98-106 (test code = 382) CO2 (BEAKER) (test 26 meq/L 20-29 code = 355) BLOOD UREA NITROGEN 25 mg/dL 10-26 (BEAKER) (test code = 354) CREATININE (BEAKER) 6.73 mg/dL 0.50-1.20 H (test code = 358) GLUCOSE RANDOM 78 mg/dL 70-110 (BEAKER) (test code = 652) CALCIUM (BEAKER) 8.7 mg/dL 8.5-10.5 (test code = 697) EGFR (BEAKER) (test 8 mL/min/1.73 ESTIMAT ED GFR IS code = 1092) sq m NOT ACCURATE CREATININE CLEARANCE IN PREDICTING GLOMERULAR FILTRATION RATE . ESTIMATED GFR I S 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 Dye Machine Tender ID - LITOOperator ID - LITOOperator ID - LITOOperator ID - LITOOperator ID - LITOOperator ID - LITOOperator ID - LITOOperator ID - LITOOperator ID - LITOOperator ID - LITOOperator ID - LITOOperator ID - LITOOperator ID - LITOCBC W/PLT COUNT & AUTO [id number] 04:38:00 Test Item Value Reference Range Interpretation Comments WHITE BLOOD CELL COUNT (BEAKER) 9.4 K/ L 4.0-10.0 (test code = 775) RED BLOOD CELL COUNT (BEAKER) 2.29 M/ L 4.20-5.80 L (test code = 761) HEMOGLOBIN (BEAKER) (test code = 7.7 GM/DL 13.0-16.8 L 410) HEMATOCRIT (BEAKER) (test code = 23.9 % 36.0-50.0 L 411) MEAN CORPUSCULAR VOLUME (BEAKER) 104.4 fL 82.0-99.0 H (test code = 753) MEAN CORPUSCULAR HEMOGLOBIN 33.6 pg 27.0-33.0 H (BEAKER) (test code = 751) MEAN CORPUSCULAR HEMOGLOBIN CONC 32.2 GM/DL 32.0-36.0 (BEAKER) (test code = 752) RED CELL DISTRIBUTION WIDTH 16.9 % 12.0-15.0 H (BEAKER) (test code = 412) PLATELET COUNT (BEAKER) (test 322 K/CU MM 150-430 code = 756) MEAN PLATELET VOLUME (BEAKER) 9.9 fL 6.0-11.5 (test code = 754) NUCLEATED RED BLOOD CELLS 0 /100 WBC 0-0 (BEAKER) (test code = 413) NEUTROPHILS RELATIVE PERCENT 78 % (BEAKER) (test code = 429) LYMPHOCYTES RELATIVE PERCENT 10 % (BEAKER) (test code = 430) MONOCYTES RELATIVE PERCENT 9 % (BEAKER) (test code = 431) EOSINOPHILS RELATIVE PERCENT 2 % (BEAKER) (test code = 432) BASOPHILS RELATIVE PERCENT 0 % (BEAKER) (test code = 437) NEUTROPHILS ABSOLUTE COUNT 7.29 K/ L 1.80-8.00 (BEAKER) (test code = 670) LYMPHOCYTES ABSOLUTE COUNT 0.95 K/ L 1.48-4.50 L (BEAKER) (test code = 414) MONOCYTES ABSOLUTE COUNT (BEAKER) 0.88 K/ L 0.00-1.30 (test code = 415) EOSINOPHILS ABSOLUTE COUNT 0.22 K/ L 0.00-0.50 (BEAKER) (test code = 416) BASOPHILS ABSOLUTE COUNT (BEAKER) 0.01 K/ L 0.00-0.20 (test code = 417) IMMATURE GRANULOCYTES-RELATIVE 1 % 0-0 H PERCENT (BEAKER) (test code = 2801) Hepatitis B surface [id number] 17:58:00 Test Item Value Reference Range Interpretation Comments Hep B S Ab (test code <8.0 See_Comment [Auto mated = 60838-2) message] The system which generated this result transmit radha reference range : <8.0 mIU/mL. e reference range was not used to interpret this result as normal/abnormal . ТАТЬЯНА (test code = ТАТЬЯНА) Dye Machine Tender ID - DB Lab Interpretation Normal (test code = 58697-5) [facility] [id number] 17:58:00 Test Item Value Reference Range Interpretation Comments HEPATITIS B SURFACE ANTIBODY < mIU/mL <8.0 (BEAKER) (test code = 647) Dye Machine Tender ID - [id number] 13:35:00 Test Item Value Reference Range Interpretation Comments Potassium (test code = 4.2 meq/L 3.6-5.5 2823-3) ТАТЬЯНА (test code = ТАТЬЯНА) Dye Machine Tender ID - [id number] ID - [id number] ID - [id number] ID - [id number] Lab Interpretation (test Normal code = 30443-8) [facility] 13:[facility]00 Test Item Value Reference Range Interpretation Comments POTASSIUM (BEAKER) (test code = 4.2 meq/L 3.6-5.5 379) Dye Machine Tender ID - [id number] ID - [id number] ID - [id number] ID - [id number] BASIC METABOLIC [id number] 06:45:00 Test Item Value Reference Range Interpretation Comments SODIUM (BEAKER) 137 meq/L 135-148 (test code = 381) POTASSIUM (BEAKER) 4.7 meq/L 3.6-5.5 (test code = 379) CHLORIDE (BEAKER) 100 meq/L 98-106 (test code = 382) CO2 (BEAKER) (test 26 meq/L 20-29 code = 355) BLOOD UREA NITROGEN 35 mg/dL 10-26 H (BEAKER) (test code = 354) CREATININE (BEAKER) 9.19 mg/dL 0.50-1.20 H (test code = 358) GLUCOSE RANDOM 87 mg/dL 70-110 (BEAKER) (test code = 652) CALCIUM (BEAKER) 8.6 mg/dL 8.5-10.5 (test code = 697) EGFR (BEAKER) (test 6 mL/min/1.73 ESTIMAT ED GFR IS code = 1092) sq m NOT ACCURATE CREATININE CLEARANCE IN PREDICTING GLOMERULAR FILTRATION RATE . ESTIMATED GFR I S 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 Dye Machine Tender ID - MITCHOperator ID - MITCHOperator ID - MITCHOperator ID - MITCHOperator ID - MITCHOperator ID - MITCHOperator ID - MITCHOperator ID - MITCHOperator ID - MITCHOperator ID - [id number] 06:44:00 Test Item Value Reference Range Interpretation Comments Phosphorus (test code = 5.9 mg/dL 2.5-4.5 H 2777-1) ТАТЬЯНА (test code = ТАТЬЯНА) Dye Machine Tender ID - MITCHOperator ID - MITCHOperator ID - MITCHOperator ID - STEVE Lab Interpretation Abnormal (test code = 64510-8) [facility] 06:44:00 Test Item Value Reference Range Interpretation Comments PHOSPHORUS (BEAKER) (test code = 5.9 mg/dL 2.5-4.5 H 604) Dye Machine Tender ID - MITCHOperator ID - MITCHOperator ID - MITCHOperator ID - [id number] (Hemogram only)2020-10-25 06:33:00 Test Item Value Reference Range Interpretation Comments WBC (test code = 6690-2) 10.6 See_Comment H [A utomated message] The system [employer] generated this result transmitted ref erence range: 4.0 - 10 .0 K/L. The refe rence range was not u sed to interpret this result as normal/abnor mal. RBC (test code = 789-8) 2.39 See_Comment L [Au tomated message] The system [employer] generated this result transmitted ref erence range: 4.20 - 5 .80 M/L. The refe rence range was not u sed to interpret this result as normal/abnor mal. MCHC (test code = 786-4) 31.0 See_Comment L [A utomated message] The system [employer] generated this result transmitted ref erence range: 32.0 - 3 6.0 GM/DL. The refe rence range was not u sed to interpret this result as normal/abnor mal. Hematocrit (test code = 24.5 % 36-50 L 4544-3) MCV (test code = 787-2) 102.5 fL 82-99 H MCH (test code = 785-6) 31.8 pg 27-33 RDW (test code = 788-0) 16.8 % 12-15 H Platelets (test code = 285 See_Comment [Aut omated message] 777-3) The system [employer] generated this result transmitted ref erence range: 150 - 43 0 K/CU MM. The referen ce range was not u sed to interpret this result as normal/abnor mal. MPV (test code = 9.8 fL 6-11.5 48697-8) nRBC (test code = 413) 0 See_Comment [Aut omated message] The system [employer] generated this result transmitted ref erence range: 0 - 0 /1 00 WBC. The refere nce range was not u sed to interpret this result as normal/abnor mal. Lab Interpretation (test Abnormal code = 58183-4) [facility] (HEMOGRAM ONLY)2020-10-25 06:33:00 Test Item Value Reference Range Interpretation Comments WHITE BLOOD CELL COUNT (BEAKER) 10.6 K/ L 4.0-10.0 H (test code = 775) RED BLOOD CELL COUNT (BEAKER) 2.39 M/ L 4.20-5.80 L (test code = 761) HEMOGLOBIN (BEAKER) (test code = 7.6 GM/DL 13.0-16.8 L 410) HEMATOCRIT (BEAKER) (test code = 24.5 % 36.0-50.0 L 411) MEAN CORPUSCULAR VOLUME (BEAKER) 102.5 fL 82.0-99.0 H (test code = 753) MEAN CORPUSCULAR HEMOGLOBIN 31.8 pg 27.0-33.0 (BEAKER) (test code = 751) MEAN CORPUSCULAR HEMOGLOBIN CONC 31.0 GM/DL 32.0-36.0 L (BEAKER) (test code = 752) RED CELL DISTRIBUTION WIDTH 16.8 % 12.0-15.0 H (BEAKER) (test code = 412) PLATELET COUNT (BEAKER) (test 285 K/CU MM 150-430 code = 756) MEAN PLATELET VOLUME (BEAKER) 9.8 fL 6.0-11.5 (test code = 754) NUCLEATED RED BLOOD CELLS 0 /100 WBC 0-0 (BEAKER) (test code = 413) Type and screen, [id number] 14:42:00 Test Item Value Reference Range Interpretation Comments ABO/RH AUTOMATED (BEAKER) (test O POSITIVE code = 2260) Ab Scrn (test code = 890-4) [facility] [id number] 08:07:00 Test Item Value Reference Interpretation Comments Range CULTURE (BEAKER) COAGULASE NEGATIVE A >100, 000 col/mL (test code = 1095) STAPHYLOCOCCUS Coagula se negative Staphylococcus Ciprofloxacin (test R code = 7) Clindamycin (test S code = 10) Erythromycin (test R code = 4) Gentamicin (test code S = 18) Levofloxacin (test I code = 22) Linezolid (test code S = 40) Moxifloxacin (test S code = 36) Nitrofurantoin (test S code = 23) Oxacillin (test code R = 14) Rifampin (test code = S 43) Tetracycline (test R code = 2) Tigecycline (test S code = 133) Trimethoprim + S Sulfamethoxazole (test code = 47) Vancomycin (test code S = 13) >100,000 col/mL skin floraHepatitis B surface [id number] 15:09:00 Test Item Value Reference Range Interpretation Comments HBsAg Screen (test code Nonreactive Nonreactive = 5195-3) ТАТЬЯНА (test code = ТАТЬЯНА) Dye Machine Tender ID - [id number] Lab Interpretation (test Normal code = 40292-1) [facility] [id number] 15:09:00 Test Item Value Reference Range Interpretation Comments HEPATITIS B SURFACE ANTIGEN (2) Nonreactive Nonreactive (BEAKER) (test code = 2585) Dye Machine Tender ID - [id number] METABOLIC [id number] 05:03:00 Test Item Value Reference Range Interpretation Comments SODIUM (BEAKER) 137 meq/L 135-148 (test code = 381) POTASSIUM (BEAKER) 4.8 meq/L 3.6-5.5 (test code = 379) CHLORIDE (BEAKER) 101 meq/L 98-106 (test code = 382) CO2 (BEAKER) (test 25 meq/L 20-29 code = 355) BLOOD UREA NITROGEN 17 mg/dL 10-26 (BEAKER) (test code = 354) CREATININE (BEAKER) 6.73 mg/dL 0.50-1.20 H (test code = 358) GLUCOSE RANDOM 94 mg/dL 70-110 (BEAKER) (test code = 652) CALCIUM (BEAKER) 8.2 mg/dL 8.5-10.5 L (test code = 697) EGFR (BEAKER) (test 8 mL/min/1.73 ESTIMAT ED GFR IS code = 1092) sq m NOT ACCURATE CREATININE CLEARANCE IN PREDICTING GLOMERULAR FILTRATION RATE . ESTIMATED GFR I S 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 Dye Machine Tender ID - [id number] ID - [id number] ID - [id number] ID - [id number] ID - [id number] ID - [id number] ID - [id number] ID - [id number] ID - [id number] ID - [id number] ID - [id number] ID - [id number] ID - [id number] W/PLT COUNT & AUTO [id number] 04:56:00 Test Item Value Reference Range Interpretation Comments WHITE BLOOD CELL COUNT (BEAKER) 9.9 K/ L 4.0-10.0 (test code = 775) RED BLOOD CELL COUNT (BEAKER) 2.39 M/ L 4.20-5.80 L (test code = 761) HEMOGLOBIN (BEAKER) (test code = 7.5 GM/DL 13.0-16.8 L 410) HEMATOCRIT (BEAKER) (test code = 24.1 % 36.0-50.0 L 411) MEAN CORPUSCULAR VOLUME (BEAKER) 100.8 fL 82.0-99.0 H (test code = 753) MEAN CORPUSCULAR HEMOGLOBIN 31.4 pg 27.0-33.0 (BEAKER) (test code = 751) MEAN CORPUSCULAR HEMOGLOBIN CONC 31.1 GM/DL 32.0-36.0 L (BEAKER) (test code = 752) RED CELL DISTRIBUTION WIDTH 16.9 % 12.0-15.0 H (BEAKER) (test code = 412) PLATELET COUNT (BEAKER) (test 180 K/CU MM 150-430 code = 756) MEAN PLATELET VOLUME (BEAKER) 9.9 fL 6.0-11.5 (test code = 754) NUCLEATED RED BLOOD CELLS 0 /100 WBC 0-0 (BEAKER) (test code = 413) NEUTROPHILS RELATIVE PERCENT 74 % (BEAKER) (test code = 429) LYMPHOCYTES RELATIVE PERCENT 14 % (BEAKER) (test code = 430) MONOCYTES RELATIVE PERCENT 9 % (BEAKER) (test code = 431) EOSINOPHILS RELATIVE PERCENT 3 % (BEAKER) (test code = 432) BASOPHILS RELATIVE PERCENT 0 % (BEAKER) (test code = 437) NEUTROPHILS ABSOLUTE COUNT 7.28 K/ L 1.80-8.00 (BEAKER) (test code = 670) LYMPHOCYTES ABSOLUTE COUNT 1.39 K/ L 1.48-4.50 L (BEAKER) (test code = 414) MONOCYTES ABSOLUTE COUNT (BEAKER) 0.89 K/ L 0.00-1.30 (test code = 415) EOSINOPHILS ABSOLUTE COUNT 0.27 K/ L 0.00-0.50 (BEAKER) (test code = 416) BASOPHILS ABSOLUTE COUNT (BEAKER) 0.03 K/ L 0.00-0.20 (test code = 417) IMMATURE GRANULOCYTES-RELATIVE 0 % 0-0 PERCENT (BEAKER) (test code = 2801) SARS-CoV2/RT-PCR (Asymptomatic ONLY)2020-10-23 00:12:00 Test Item Value Reference Range Interpretation Comments SARS-COV2/RT-PCR Negative Not Detected, Performanc e of the Xpert (test code = Negative, See Xpress 04470-1) external report SARS-CoV-2/F yuliet/RSV test for linked test has only bee n established in nasopharyngeal swab specimens. Use of the Xpert Xpress SARS-CoV-2/Flu/ RSV test with other spec imen types has not b een assessed and pe rformance characteristics are unknown. As wi th any molecular test, mutations withi n the targeted geneti c regions identified by doug green Xpert Xpress SARS-CoV-2/Flu/ RSV test could affect pr oneyda and/or probe bi nding resulting in fa ilure to detect the pres ence of virus or the vi babs being detected less predictably.Neg ative results do not preclude SARS-CoV-2, Inf luenza A/B, or RSV inf ection and should not be used as the sole bas is for treatment or ot her patient managem ent decisions. Res ults from the Xpert Xpres s SARS-CoV-2/Flu/ RSV test should be corre lated with the clinic al history, epidem iological data, and other data available to th e clinician evalu ating the patient. Inval id test results may occ ur from improper specim en collection; sharmaine lure to follow the starr mmended sample collecti on, handling, and s torage procedures; olvin hnical error. False ne gative results may occ ur if virus is presen t at levels below th e analytical limi t of detection (LOD: 131 copies/mL). Vi ral nucleic acid ma y persist in vivo, indepe ndent of virus viability . Detection of an alyte target(s) does not imply that the corres ponding virus(es) are i nfectious or are the caus ative agents for clin ical symptoms. Rece nt patient exposur e to FluMist or ot her live attenuated infl uenza vaccines may ca use inaccurate posi tive results.This te st has been authorized by FDA under an EUA fo r use by authorized labo ratories. This test is o nly authorized for the duration of the declaration umer t circumstances e xist justifying the authorization o f emergency use o f in vitro diagnosti c tests for detection a nd/or diagnosis of CO VID-19 under Section 5 64(b)(1) of the Federal Food, Drug and Cosmet ic Act, 21 U.S.C. 360bbb-3(b)(1), unless the authorizati on is terminated or r evoked sooner. Fact Sh eet for Healthcare Prov iders: https://www.[employer]/ Documents/Xpert %20Xpress %55RMVM-ZjV-0-F yuliet-RSV/30 2-4508%20Rev.%2 0B%20HCP% 20Fact%20Sheet. pdf Fact Sheet for Healt hcare Patients: https://www.[employer].com/ Documents/Xpert %20Xpress %48WBNJ-WwF-5-F yuliet-RSV/30 2-4507%20Rev.%2 0B%20Pati ent%20Fact%20Sh eet.pdf SARS-COV-2 SLSL Performed at:[facility] [id number] (test code = [address] [address]-9) [place] [address] ph: [phone] [facility]2020-10-23 00:12:00 Test Item Value Reference Range Interpretation Comments SARS-COV2/RT-PCR Negative Not Detected, Performanc e of the Xpert (test code = Negative, See Xpress [id number]) external report SARS-CoV-2/F yuliet/RSV test for linked test has only bee n established in nasopharyngeal swab specimens. Use of the Xpert Xpress SARS-CoV-2/Flu/ RSV test with other spec imen types has not b een assessed and pe rformance characteristics are unknown. As wi th any molecular test, mutations withi n the targeted geneti c regions identified by t he Xpert Xpress SARS-CoV-2/Flu/ RSV test could affect pr oneyda and/or probe bi nding resulting in fa ilure to detect the pres ence of virus or the vi babs being detected less predictably.Neg ative results do not preclude SARS-CoV-2, Inf luenza A/B, or RSV inf ection and should not be used as the sole bas is for treatment or ot her patient managem ent decisions. Res ults from the Xpert Xpres s SARS-CoV-2/Flu/ RSV test should be corre lated with the clinic al history, epidem iological data, and other data available to e clinician evalu ating the patient. Inval id test results may occ ur from improper specim en collection; sharmaine lure to follow the starr mmended sample collecti on, handling, and s torage procedures; olvin hnical error. False ne gative results may occ ur if virus is presen t at levels below th e analytical limi t of detection (LOD: 131 copies/mL). Vi ral nucleic acid ma y persist in vivo, indepe ndent of virus viability . Detection of an alyte target(s) does not imply that the corres ponding virus(es) are i nfectious or are the caus ative agents for clin ical symptoms. Rece nt patient exposur e to FluMist or oth er live attenuated infl uenza vaccines may ca use inaccurate posi tive results.This te st has been authorized by FDA under an EUA fo r use by authorized labo mala. This test is o nly authorized for the duration of the declaration umer t circumstances e xist justifying the authorization o f emergency use o f in vitro diagnosti c tests for detection a nd/or diagnosis of CO VID-19 under Section 5 64(b)(1) of the Federal Food, Drug and Cosmet ic Act, 21 U.S.C. 360bbb-3(b)(1), unless the authorizati on is terminated or r evoked sooner.Fact She et for Healthcare Prov iders: https://www.[employer]/ Documents/Xpert %20Xpress %46JEWE-BrO-6-F yuliet-30 2-4508%20Rev.%2 0B%20HCP% 20Fact%20Sheet. pdfFact Sheet for Healt hcare Patients: https://www.[employer]/ Documents/Xpert %20Xpress %04BBAN-YyP-8-F yuliet-RSV30 2-4507%20Rev.%2 0B%20Pati ent%20Fact%20Sh eet.pdf SARS-COV-2 SLSL Performed at:[facility] [place] [id number] (test code = [address] 6620344) [place] [address] ph: [phone] CT, [id number] 22:34:00Unlisted Reason for Exam - Click Yes and Enter Reason Below->YesUnlisted Reason for Exam->known R ureteral tumor and r hydro, worsening R side pain, pt ESRD will dialyzeWill this procedure require oral contrast?->No [facility] CENTERName: Robbie LONDON: 1945 Sex: MFINAL REPORT CT, ABDOMEN \\T\\ PELVIS, WITH IV CONTRAST CLINICAL HISTORY: Unlisted Reason for 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 Coronal and sagittal reformats obtained. Oral contrast was not administered. This exam was performed according to our departmental dose-optimization program, which includes automated exposure control, adjustment of the mA and/or kV according to patient size and/or use of the iterative reconstruction technique. COMPARISON:September 21, 2020 FINDINGS:LOWER CHEST:Reticular pulmonary airspace disease bilaterally. Right lung small calcifications. Trace right pleural effusion. LIVER: Numerous low-density liver lesions, largest compatible with cysts but most to small to characterize.BILIARY SYSTEM: Cholecystectomy changes. Mild intrahepatic and extrahepatic biliary prominence withCBD measuring 9 mm, stable and likely reservoir effect.PANCREAS: No acute findings. SPLEEN: NoADRENAL GLANDS: No acute findingsKIDNEYS URETERS: Severe right hydroureteronephrosis. Bilateral polycystic kidney changes with innumerable cystic and indeterminate density small round lesions. There is a leftkidney subcapsular 6.3 x 4 cm fluid density collection involving the posterior and superior margin associated with perinephric stranding and calcifications or surgical clips again noted.URINARY BLADDER: There is an isodense mass of the right ureteral vesicular junction with tubular morphology, 3.4 x 2.2 x 1.7 cm. Urinary bladder is incompletely distended.REPRODUCTIVE ORGANS: No acute findings. GASTROINTESTINAL/MESENTERY: Extensive colonic diverticulosis. No evidence of bowel obstruction. Tiny hiatalhernia. 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 No periaortic stranding or contrast extravasation. Severe atherosclerotic plaques present. LYMPH NODES: There are multiple mildly enlarged retroperitoneal lymphnodes which are more numerous in typically seen.SOFT TISSUES: No acute findings.BONES: No suspiciousosseous lesion. 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 Complex ureterocele is not excluded. Urology consultation is advised. Polycystic kidneys. Stable left kidney low-density subcapsular fluid collection associated with surgical clips raising thepossibility of resolving/degraded hematoma. Stable thoracic and abdominal aortic aneurysms, status post aortoiliac stent graft placement. Findings are unchanged from prior examination. For the purposes of radiology report documentation, vascular consultation advised. Stable bibasilar pulmonary reticular opacities and trace right pleural effusion. Correlate clinically for acute on chronic interstitiallung disease. Reactive retroperitoneal lymph nodes. Colonic diverticulosis. Stable small hiatal hernia. Multiple hepatic cysts and low-density lesions too small to characterize. 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 Coronal and sagittal reformats obtained. Oral contrast was not administered. This exam was performed according to our departmental dose-optimization program, which includes automated exposure control, adjustment of the mA and/or kV according to patient size and/or use of the iterative reconstruction technique. COMPARISON:September 21, 2020 FINDINGS:LOWER CHEST:Reticular pulmonary airspace disease bilaterally. Right lung small ca lcifications. Trace right pleural effusion. LIVER: Numerous low-density liver lesions, largest compatible with cysts but most to small to characterize.BILIARY SYSTEM: Cholecystectomy changes. Mild intrahepatic and extrahepatic biliary prominence with CBD measuring 9 mm, stable and likely reservoir effect.PANCREAS: No acute findings. SPLEEN: NoADRENAL GLANDS: No acute findingsKIDNEYS URETERS: Severe right hydroureteronephrosis. Bilateral polycystic kidney changes with innumerable cystic and indeterminate density small round lesions. There is a left kidney subcapsular 6.3 x 4 cm fluid density collection involving the posterior and superior margin associated with perinephric stranding and calcifications or surgical clips again noted.URINARY BLADDER: There is an isodense mass of the right ureteral vesicular junction with tubular morphology, 3.4 x 2.2 x 1.7 cm. Urinary bladder is incompletely distended.REPRODUCTIVE ORGANS: No acute findings. GASTROINTESTINAL/MESENTERY: Extensive colonic diverticulosis. No evidence of bowel obstruction. Tiny hiatal hernia. 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 No periaortic stranding or contrast extravasation. Severe atherosclerotic plaques present. LYMPH NODES: There are multiple mildly enlarged retroperitoneal lymph nodes which are more numerous in typically seen.SOFT TISSUES: No acute findings.BONES: No suspicious osseous lesion. 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 Complex ureterocele is not excluded. Urology consultation is advised. Polycystic kidneys. Stable left kidney low-density subcapsular fluid collection associated with surgical clips raising the possibility of resolving/degraded hematoma. Stable thoracic and abdominal aortic aneurysms, status post aortoiliac stent graft placement. Findings are unchanged from prior examination. For the purposes of radiology report documentation, vascular consultation advised. Stable bibasilar pulmonary reticular opacities and trace right pleural effusion. Correlate clinically for acute on chronic interstitial lung disease. Reactive retroperitoneal lymph nodes.Colonic diverticulosis. Stable small hiatal hernia. Multiple hepatic cysts and low-density lesions too small to characterize. Signed: Rodger Ramires MDReport Verified Date/Time: 10/22/2020 22:34:38 [facility] W/PLT COUNT & AUTO [id number] 21:18:00 Test Item Value Reference Range Interpretation Comments WHITE BLOOD CELL COUNT (BEAKER) 10.9 K/ L 4.0-10.0 H (test code = 775) RED BLOOD CELL COUNT (BEAKER) 2.87 M/ L 4.20-5.80 L (test code = 761) HEMOGLOBIN (BEAKER) (test code = 9.0 GM/DL 13.0-16.8 L 410) HEMATOCRIT (BEAKER) (test code = 28.5 % 36.0-50.0 L 411) MEAN CORPUSCULAR VOLUME (BEAKER) 99.3 fL 82.0-99.0 H (test code = 753) MEAN CORPUSCULAR HEMOGLOBIN 31.4 pg 27.0-33.0 (BEAKER) (test code = 751) MEAN CORPUSCULAR HEMOGLOBIN CONC 31.6 GM/DL 32.0-36.0 L (BEAKER) (test code = 752) RED CELL DISTRIBUTION WIDTH 16.9 % 12.0-15.0 H (BEAKER) (test code = 412) PLATELET COUNT (BEAKER) (test 231 K/CU MM 150-430 code = 756) MEAN PLATELET VOLUME (BEAKER) 9.9 fL 6.0-11.5 (test code = 754) NUCLEATED RED BLOOD CELLS 0 /100 WBC 0-0 (BEAKER) (test code = 413) NEUTROPHILS RELATIVE PERCENT 74 % (BEAKER) (test code = 429) LYMPHOCYTES RELATIVE PERCENT 14 % (BEAKER) (test code = 430) MONOCYTES RELATIVE PERCENT 8 % (BEAKER) (test code = 431) EOSINOPHILS RELATIVE PERCENT 3 % (BEAKER) (test code = 432) BASOPHILS RELATIVE PERCENT 0 % (BEAKER) (test code = 437) NEUTROPHILS ABSOLUTE COUNT 8.08 K/ L 1.80-8.00 H (BEAKER) (test code = 670) LYMPHOCYTES ABSOLUTE COUNT 1.51 K/ L 1.48-4.50 (BEAKER) (test code = 414) MONOCYTES ABSOLUTE COUNT (BEAKER) 0.90 K/ L 0.00-1.30 (test code = 415) EOSINOPHILS ABSOLUTE COUNT 0.34 K/ L 0.00-0.50 (BEAKER) (test code = 416) BASOPHILS ABSOLUTE COUNT (BEAKER) 0.03 K/ L 0.00-0.20 (test code = 417) IMMATURE GRANULOCYTES-RELATIVE 1 % 0-0 H PERCENT (BEAKER) (test code = 2801) CBC W/PLT COUNT & AUTO [id number] 12:53:00 Test Item Value Reference Range Interpretation Comments WHITE BLOOD CELL COUNT (BEAKER) 12.9 K/ L 4.0-10.0 H (test code = 775) RED BLOOD CELL COUNT (BEAKER) 2.92 M/ L 4.20-5.80 L (test code = 761) HEMOGLOBIN (BEAKER) (test code = 9.5 GM/DL 13.0-16.8 L 410) HEMATOCRIT (BEAKER) (test code = 29.5 % 36.0-50.0 L 411) MEAN CORPUSCULAR VOLUME (BEAKER) 101.0 fL 82.0-99.0 H (test code = 753) MEAN CORPUSCULAR HEMOGLOBIN 32.5 pg 27.0-33.0 (BEAKER) (test code = 751) MEAN CORPUSCULAR HEMOGLOBIN CONC 32.2 GM/DL 32.0-36.0 (BEAKER) (test code = 752) RED CELL DISTRIBUTION WIDTH 16.8 % 12.0-15.0 H (BEAKER) (test code = 412) PLATELET COUNT (BEAKER) (test 243 K/CU MM 150-430 code = 756) MEAN PLATELET VOLUME (BEAKER) 10.3 fL 6.0-11.5 (test code = 754) NUCLEATED RED BLOOD CELLS 0 /100 WBC 0-0 (BEAKER) (test code = 413) NEUTROPHILS RELATIVE PERCENT 78 % (BEAKER) (test code = 429) LYMPHOCYTES RELATIVE PERCENT 13 % (BEAKER) (test code = 430) MONOCYTES RELATIVE PERCENT 5 % (BEAKER) (test code = 431) EOSINOPHILS RELATIVE PERCENT 3 % (BEAKER) (test code = 432) BASOPHILS RELATIVE PERCENT 0 % (BEAKER) (test code = 437) NEUTROPHILS ABSOLUTE COUNT 10.07 K/ L 1.80-8.00 H (BEAKER) (test code = 670) LYMPHOCYTES ABSOLUTE COUNT 1.66 K/ L 1.48-4.50 (BEAKER) (test code = 414) MONOCYTES ABSOLUTE COUNT (BEAKER) 0.67 K/ L 0.00-1.30 (test code = 415) EOSINOPHILS ABSOLUTE COUNT 0.35 K/ L 0.00-0.50 (BEAKER) (test code = 416) BASOPHILS ABSOLUTE COUNT (BEAKER) 0.05 K/ L 0.00-0.20 (test code = 417) IMMATURE GRANULOCYTES-RELATIVE 1 % 0-0 H PERCENT (BEAKER) (test code = 2801) BASIC METABOLIC [id number] 12:49:00 Test Item Value Reference Range Interpretation Comments SODIUM (BEAKER) 137 meq/L 135-148 (test code = 381) POTASSIUM (BEAKER) 4.7 meq/L 3.6-5.5 (test code = 379) CHLORIDE (BEAKER) 98 meq/L 98-106 (test code = 382) CO2 (BEAKER) (test 27 meq/L 20-29 code = 355) BLOOD UREA NITROGEN 11 mg/dL 10-26 (BEAKER) (test code = 354) CREATININE (BEAKER) 4.69 mg/dL 0.50-1.20 H (test code = 358) GLUCOSE RANDOM 106 mg/dL 70-110 (BEAKER) (test code = 652) CALCIUM (BEAKER) 8.9 mg/dL 8.5-10.5 (test code = 697) EGFR (BEAKER) (test 12 mL/min/1.73 ESTIMA RADHA GFR IS code = 1092) sq m NOT ACCURATE CREATININE CLEARANCE IN PREDICTING GLOMERULAR FILTRATION RATE . ESTIMATED GFR I S 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 Dye Machine Tender ID - [id number] ID - [id number] ID - [id number] ID - [id number] ID - [id number] ID - [id number] ID - [id number] ID - [id number] ID - [id number] ID - [id number] ID - [id number] ID - [id number] ID - [id number] 12:44:00 Test Item Value Reference Interpretation Comments Range Protime (test code = 11.0 See_Comment Final 5902-2) Information (Auto Output) [Automated message] The system which generated this result transmitted reference range : 9.3 - 12.0 seconds. The reference range was not used to interpret this result as normal/abnormal . INR (test code = 0.99 See_Comment Final 6301-6) Information (Auto Output) [Automated message] The system which generated this result transmitted reference range : <=5.90. The reference range was not used to interpret this result as normal/abnormal . PTT (test code = 28.1 See_Comment Final 80001-9) Information (Auto Output) [Automated message] The system which generated this result transmitted reference range : 23.0 - 35.0 seconds. The reference range was not used to interpret this result as normal/abnormal . ТАТЬЯНА (test code = RECOMMENDED ТАТЬЯНА) COUMADIN/WARFARIN INR THERAPY RANGESSTANDARD DOSE: 2.0 - 3.0 Includes: PROPHYLAXIS for venous thrombosis, systemic embolization; TREATMENT for venous thrombosis and/or pulmonary embolus.HIGH RISK: Target INR is 2.5-3.5 for patients with mechanical heart valves. Lab Interpretation Normal (test code = 63810-6) [facility]/[id number] 12:44:00 Test Item Value Reference Range Interpretation Comments PROTIME (BEAKER) (test 11.0 seconds 9.3-12.0 Final Information code = 759) (Auto Output) INR (BEAKER) (test 0.99 See_Comment Final Inf ormation code = 370) (Auto Output) [Automated mess age] The system [employer] generated this result transmit radha reference range : <=5.90. The reference range was not used to interpret this result as normal/abnormal . PARTIAL THROMBOPLASTIN 28.1 seconds 23.0-35.0 Final Information TIME (BEAKER) (test (Auto Ou tput) code = 760) RECOMMENDED COUMADIN/WARFARIN INR THERAPY RANGESSTANDARD DOSE: 2.0 - 3.0 Includes: PROPHYLAXIS forvenous thrombosis, systemic embolization; TREATMENT for venous thrombosis and/or pulmonary embolus.HIGH RISK: Target INR is 2.5-3.5 for patients with mechanical heart valves.CT, [id number] 08:58:00Unlisted Reason for Exam - Click Yes and Enter Reason Below->NoWill this procedure require oral contrast?->No [facility] : 1945 Sex: MFINAL REPORT CT of the abdomen, with and without contrast, CT of pelvis without contrast Clinical History: Unlisted Reason for Exam Technique: CT of the abdomen is performedbefore and after intravenous contrast administration. CT of pelvis is performed without intravenous contrast. This exam was performed according to our departmental dose optimization program which includes automated exposure control, adjustment of the mA and/or kV according to patient's size and/or useof iterative reconstructive technique. Comparison Film: MRI dated [...] fluid collection at the posterior upper to midpoleof the left kidney, measuring up to 2.6 [...] mass. Subcapsular fluid collection at the upper tomidpole of the left kidney, which may contain hemorrhagic contents. Multiple small liver cysts. Status post cholecystectomy. Thoracic aortic aneurysm. Status post aortoiliac stent graft placement. Mildbronchiectasis at the lung bases. Colonic diverticulosis. Tiny hiatal hernia. Signed: Irene Juarez MDReport Verified Date/Time: 09/22/2020 08:58:10 Reading Location: [facility] C013X Ortho Consult Reading Room CT abdomen/pelvis without & with IV [id number] 08:58:00 Interface, External Ris In - 09/22/2020 9:[address] of the abdomen, with and without contrast, CT of pelvis without contrast Clinical History: Unlisted Reason for Exam Technique: CT of the abdomen is performed before and after intravenous contrast administration. CT of pelvis is performed without intravenous contrast. This exam was performed according to our departmental dose optimization program which includes automated exposure control, adjustment of the mAand/or kV according to patient's size and/or use of iterative reconstructive technique. Comparison Film: MRI dated September 02, 2020 Discussion: There is mild bronchiectasis at the lung bases. The distalthoracic aorta is aneurysmal, measuring 4.7 cm. There [...] may reflect hemorrhage. There is moderate right hy dronephrosis. Soft tissue density is noted within the [...] Mild bronchiectasis at the lung bases. Colonic diverticul osis. Tiny hiatal hernia. Signed: Irene Juarez MDReport Verified Date/Time: 09/22/2020 08:58:10 ReadingLocation: [facility] B1 C013X [facility]o Consult [facility]MR[facility], WITHOUT [id number] 15:11:00ESRD patientUnlisted Reason for Exam - Click Yes and Enter Reason Below->NoDeos the patient have an implanted electronic device?->No [facility] : 1945 Sex: MFINAL REPORT MR, ABDOMEN, WITHOUT CONTRAST, MR, PELVIS, [...] ureters: Innumerable renal lesions bilaterally, poorly evaluated withoutIV contrast, mixed T2 hyperintense and T2 hypointense [...] diameter infrarenal abdominal aorta 3.7 cm. Severe atherosclerosis.Abdominal wall: Unremarkable.Bones: Multilevel degenerative changes of the lumbar spine. IMPRESSION: Limited exam. In the setting of polycystic liver and kidney disease, a noncontrast exam is of limited utility. Additionally, the pelvic portion of this exam was performed without any diffusion-weighted imaging. If additional imaging sequences are performed at a later date, an addendum will be made. 1.Mild right hydrourete ronephrosis related to a 2.5 cm long filling defect in the distal right ureter, correlate with ureteroscopy.2.An infiltrative process throughout a large portion of the left renal parenchyma, could be infectious or neoplastic. 3.Limited evaluation for renal masses without IV contrast in the setting ofextensive polycystic kidney disease.4.Thoracic and abdominal aortic aneurysms as described above. Compare with outside prior exams for stability.5.Numerous hepatic cysts.6.Hepatic and splenic iron deposition.7.Status post cholecystectomy. Biliary ductal dilation could be related to postcholecystectomy biliary reservoir effect. Signed: Abebe Huizar Verified Date/Time: 09/02/2020 15:11:40 Reading Location: [facility] Diagnostic Imaging Reading Room - [place] [address] MR, PELVIS, WITHOUT [id number] 15:11:00ESRD patientUnlisted Reason for Exam - Click Yes and Enter Reason Below->NoDeos the patient have an implanted electronic device?->No [facility] : 1945 Sex: MFINAL REPORT MR, ABDOMEN, WITHOUT CONTRAST, MR, PELVIS, [...] ureters: Innumerable renal lesions bilaterally, poorly evaluated withoutIV contrast, mixed T2 hyperintense and T2 hypointense [...] diameter infrarenal abdominal aorta 3.7 cm. Severe atherosclerosis.Abdominal wall: Unremarkable.Bones: Multilevel degenerative changes of the lumbar spine. IMPRESSION: Limited exam. In the setting of polycystic liver and kidney disease, a noncontrast exam is of limited utility. Additionally, the pelvic portion of this exam was performed without any diffusion-weighted imaging. If additional imaging sequences are performed at a later date, an addendum will be made. 1.Mild right hydrourete ronephrosis related to a 2.5 cm long filling defect in the distal right ureter, correlate with ureteroscopy.2.An infiltrative process throughout a large portion of the left renal parenchyma, could be infectious or neoplastic. 3.Limited evaluation for renal masses without IV contrast in the setting ofextensive polycystic kidney disease.4.Thoracic and abdominal aortic aneurysms as described above. Compare with outside prior exams for stability.5.Numerous hepatic cysts.6.Hepatic and splenic iron deposition.7.Status post cholecystectomy. Biliary ductal dilation could be related to postcholecystectomy biliary reservoir effect. 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 Status post aortobiiliac stent. Maximum diameter infrarenal abdominal aorta 3.7 cm. Severe atherosclerosis.Abdominal wall: Unremarkable.Bones: Multilevel degenerative changes of the lumbar spine. IMPRESSION: Limited exam. In the setting of polycystic liver and kidney disease, anoncontrast exam is of limited utility. Additionally, the pelvic portion of this exam was performed w ithout any diffusion-weighted imaging. If additional imaging sequences [...] the setting of extensive polycystic kidney disease.4.Thoracic andabdominal aortic aneurysms as described above. Compare with outside prior exams for stability.5.Numerous hepatic cysts.6.Hepatic and splenic iron deposition.7.Status post cholecystectomy. Biliary ductal dilation could be related to postcholecystectomy biliary reservoir effect. Signed: Abebe Huizarort Verified Date/Time: 09/02/2020 15:11:40 Reading Location: [facility] Diagnostic Imaging Reading Room - [place] [address] [facility]MR [facility] without IV [id number] 15:11:00Interface, External Ris In - 09/02/2020 3:13 PM CSTFINAL REPORT MR, ABDOMEN,WITHOUT CONTRAST, MR, PELVIS, WITHOUT CONTRAST HISTORY: Bladder [...] and poorly evaluated.Reproductive organs: Unremarkable.Lymph nodes: Unremarkable.Peritoneum: Unremarkable.Vessels:A 4.8 cm diameter aneurysm of the descending thoracic aorta. 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 Status post aortobiiliac stent. Maximum diameter infrarenal abdominal aorta 3.7 cm. Severe atherosclerosis.Abdominal wall: Unremarkable.Bones: Multilevel degenerative changes of the lumbar spine. IMPRESSION: Limited exam. In the setting of polycystic liver and kidney disease, anoncontrast exam is of limited utility. Additionally, the pelvic portion of this exam was performed w ithout any diffusion-weighted imaging. If additional imaging sequences [...] the setting of extensive polycystic kidney disease.4.Thoracic andabdominal aortic aneurysms as described above. Compare with outside prior exams for stability.5.Numerous hepatic cysts.6.Hepatic and splenic iron deposition.7.Status post cholecystectomy. Biliary ductal dilation could be related to postcholecystectomy biliary reservoir effect. 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 The specimen is entirely submitted into A1-A6. MG/ew Performed [facility], Department of Pathology, [address] [place] [address], Boqjiw [facility], Department of Pathology, [address] [place] [address], QeSt. [facility], Department of [facility]ology, [address] [place] [address], DZ, FLUORO, NON-SPECIFIC, UP TO 1 [id number] 12:50:00 Reason for exam:->Surgery [facility] : 1945 Sex: MFluoroscopic unit utilized for a procedure performed in the OR. No interpretation was requested. Refer to the operative report for findings. Refer to PACS for patient radiation dose information.FL fluoro non-specific up to 1 [id number] 12:50:00 Interface, External Ris In - 08/31/2020 12:55 PM CSTFluoroscopic unit utilized for a procedure performed in the OR. No interpretation was requested. Refer to the operative report for findings. Referto PACS for patient radiation dose information.[facility] W/Doppler(CW/PW/Color) 2020-08-31 08:09:56Ejection FractionSLEH ECHO HEARTLAB MKCKCLAUSON CPACSInterface, External Ris In - 08/31/2020 8:10 AM CSTTransthoracic Echocardiography Report (TTE) Demographics Patient Name JANEL LONDON Date of Study 08/29/2020 Gender Male Visit Number [id number] Race Unknown Room Number B531 Number Date of 1945 Referring Physician Age 75 year(s) Law Examiner Judi Mclaughlin [facility] Interpreting Humberto Reed Jr. MD Physician Procedure [...] Peak Gradient: 3.29 mmHg Estimated PASP: 42.39 mmHgCHI [facility] Community HospitalComprehensive metabolic [id number] 06:56:00 Test Item Value Reference Range Interpretation Comments Protein, Total (test 6.7 See_Comment [Autom ated code = 2885-2) message] The system which generated this result transmitted reference range : 6.0 - 8.5 gm/dL . The reference range was not used to interpr et this result as normal/abnormal . Albumin (test code = 3.2 g/dL 3.5-5 L 75741-1) Alkaline Phosphatase 57 U/L 30-115 (test code = 6768-6) Total Bilirubin 0.4 mg/dL 0.1-1.2 (test code = 1975-2) Sodium (test code = 138 meq/L 297-157 3777-2) Potassium (test code 3.9 meq/L 3.6-5.5 = 2823-3) Chloride (test code 99 meq/L 98-106 = 2075-0) CO2 (test code = 26 meq/L 20-29 2028-9) BUN (test code = 30 mg/dL 10-26 H 3094-0) Creatinine (test 7.85 mg/dL 0.5-1.2 H code = 2160-0) Glucose (test code = 94 mg/dL 70-110 2345-7) Calcium (test code = 8.7 mg/dL 8.5-10.5 07366-8) AST (test code = 49 U/L 5-40 H 1920-8) ALT (test code = 55 U/L 5-50 H 1742-6) EGFR (test code = 7 mL/min/1.73 [place] [address]-5) m NOT ACCURATE CREATININE CLEARANCE IN PREDICTING GLOMERULAR FILTRATION RATE . ESTIMATED GFR I S NOT APPLICABLE FOR DIALYSIS PATIENTS. ТАТЬЯНА (test code = Dye Machine Tender ID - ТАТЬЯНА) LITOOperator ID - LITOOperator ID - LITOOperator ID - LITOOperator ID - LITOOperator ID - LITOOperator ID - LITOOperator ID - LITOOperator ID - LITOOperator ID - LITOOperator ID - LITOOperator ID - LITOOperator ID - LITOOperator ID - LITOOperator ID - LITOOperator ID - JUNITO Lab Interpretation Abnormal (test code = 75550-1) [facility] CenterCOMPREHENSIVE METABOLIC [id number] 06:56:00 Test Item Value Reference Range Interpretation [...] S 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 Dye Machine Tender ID - LITOOperator ID - LITOOperator ID - LITOOperator ID - LITOOperator ID - LITOOperator ID - LITOOperator ID - LITOOperator ID - LITOOperator ID - LITOOperator ID - LITOOperator ID - LITOOperator ID - LITOOperator ID - LITOOperator ID - LITOOperator ID - LITOOperator ID - RGKJZpyeraybm7257-28-87 06:54:00 Test Item Value Reference Range Interpretation Comments Magnesium (test code = 2.1 mg/dL 1.5-3 92103-5) ТАТЬЯНА (test code = ТАТЬЯНА) Dye Machine Tender ID - LITOOperator ID - LITOOperator ID - LITOOperator ID - JUNITO Lab Interpretation (test Normal code = 60575-3) [facility] CenterMAGNESIUM2021-03-09 06:54:00 Test Item Value Reference Range Interpretation Comments MAGNESIUM (BEAKER) (test code = 2.1 mg/dL 1.5-3.0 627) Dye Machine Tender ID - LITOOperator ID - LITOOperator ID - LITOOperator ID - LITOCBC W/PLT COUNT & AUTO [id number] 06:31:00 Test Item Value Reference Range Interpretation [...] H PERCENT (BEAKER) (test code = 2801) Lipid [id number] 06:03:00 Test Item Value Reference Range Interpretation Comments Triglycerides (test 125 mg/dL code = 2571-8) Cholesterol (test code 92 mg/dL = 2093-3) HDL (test code = 27 mg/dL 2085-9) LDL Calculated (test 40 mg/dL code = 51856-9) ТАТЬЯНА (test code = ТАТЬЯНА) Triglyceride Reference Range: Low Risk <150 Borderline 150-199 High Risk 200-499 Very High Risk >=500 Cholesterol Reference Range: Low Risk <200 Borderline 200-239 High Risk >240 HDL Cholesterol Reference Range: Low Risk >=60 High Risk <40 LDL Cholesterol Reference Range: Optimal <100 Near Optimal 100-129 Borderline 130-159 High 160-189 Very High >=190 Dye Machine Tender ID - LJFB46Bpmbonph ID - KJCA06Dqrolqyq ID - QQGE23Kzmfzkwt ID - ACNJ07Rbrhlryk ID - DCHI48Pkxwucvc ID - ZRES04 [facility] CenterLIPID [id number] 06:03:00 Test Item Value Reference Range Interpretation [...] Borderline 130-159 High 160-189 Very High >=190 Dye Machine Tender ID - DWGL70Nkqqetce ID - QHIG03Urwolula ID - QXRZ88Pbjronxo ID - BNOT32Xjrbblzy ID - EWGK06Nykquyhq ID - LSHO24KWC W/PLT COUNT & AUTO [id number] 05:38:00 Test Item Value Reference Range Interpretation [...] H PERCENT (BEAKER) (test code = 2801) [id number] 19:47:00 Test Item Value Reference Range Interpretation Comments PSA (test code = 2857-1) 4.9 ng/mL 0-4 H ТАТЬЯНА (test code = ТАТЬЯНА) Dye Machine Tender ID - [id number] Lab Interpretation (test Abnormal code = 89407-6) [facility] CenterPSA2021-03-07 19:47:00 Test Item Value Reference Range Interpretation Comments PROSTATE SPECIFIC ANTIGEN (BEAKER) 4.9 ng/mL 0.0-4.0 H (test code = 844) Dye Machine Tender ID - [id number] 18:56:00 Test Item Value Reference Range Interpretation Comments Ferritin (test code = 4479.50 ng/mL 22-322 H 2276-4) ТАТЬЯНА (test code = ТАТЬЯНА) Dye Machine Tender ID - [id number] ID - [id number] Lab Interpretation (test Abnormal code = 18468-7) [facility] CenterFERRITIN2021-03-07 18:56:00 Test Item Value Reference Range Interpretation Comments FERRITIN (BEAKER) (test code = 4479.50 ng/mL 22.00-322.00 H 361) Dye Machine Tender ID - HCGUNEK268Iqggobwq ID - PGYDZDM185Kffsdcb [id number] 18:33:00 Test Item Value Reference Range Interpretation Comments Vitamin B12 (test code = 919 pg/mL 211-911 H 2132-9) ТАТЬЯНА (test code = ТАТЬЯНА) Dye Machine Tender ID - [id number] Lab Interpretation (test Abnormal code = 14598-2) [facility] CenterVITAMIN [id number] 18:33:00 Test Item Value Reference Range Interpretation Comments VITAMIN B12 (BEAKER) (test code = 919 pg/mL 211-911 H 774) Dye Machine Tender ID - [id number], [id number] 18:25:00 Test Item Value Reference Range Interpretation Comments Free T4 (test code = 0.90 ng/dL 0.9-1.8 3024-7) ТАТЬЯНА (test code = ТАТЬЯНА) Dye Machine Tender ID - [id number] Lab Interpretation (test Normal code = 24001-9) [facility] CenterT4, [id number] 18:25:00 Test Item Value Reference Range Interpretation Comments FREE T4 (BEAKER) (test code = 655) 0.90 ng/dL 0.90-1.80 Dye Machine Tender ID - [id number] 18:22:00 Test Item Value Reference Range Interpretation Comments TSH (test code = 5.480 See_Comment [Automated 97182-6) message] The system which generated this result transmit radha reference range : 0.350 - 5.500 uIU/mL. The reference range was not used to interpret this result as normal/abnormal . ТАТЬЯНА (test code = ТАТЬЯНА) Dye Machine Tender ID - [id number] Lab Interpretation Normal (test code = 88697-8) [facility] CenterTSH2021-03-07 18:22:00 Test Item Value Reference Range Interpretation Comments THYROID STIMULATING HORMONE 5.480 uIU/mL 0.350-5.500 (BEAKER) (test code = 772) Dye Machine Tender ID - [id number]/S, RENAL, [id number] 12:08:00Please include bladderReason for exam:->hematuria, history of polycystic kidney diseaseShould this be performed at the bedside?->Yes [facility]ENTER[facility] : 1945 Sex: MFINAL [...] Recommend CT for further evaluation. Signed: Oliver Machado MDReport Verified Date/Time: 08/29/2020 12:08:20 Reading Location: [address] ConsultReading Room US renal [id number] 12:08:00Interface, External Ris In - 08/29/2020 12:19 [...] CT for further evaluation. Signed: Oliver Riggins Verified Date/Time: 08/29/2020 12:08:20 Reading Location: [facility] C013W Consult Reading Room [facility] HospitalHEPATITIS B SURFACE ANTIBODY 2020-08-29 11:42:00 Test Item Value Reference Range Interpretation Comments HEPATITIS B SURFACE ANTIBODY < mIU/mL <8.0 (BEAKER) (test code = 647) Dye Machine Tender ID - FER MReticulocyte jrtyz0638-10-56 11:03:00 Test Item Value Reference Range Interpretation Comments % Retic (test code = 41269-6) 1.8 % 0.4-2.9 Lab Interpretation (test code = Normal 56957-9) [facility] CenterRETICULOCYTE [id number] 11:03:00 Test Item Value Reference Range Interpretation Comments RETICULOCYTE COUNT PCT (BEAKER) (test 1.8 % 0.4-2.9 code = 575) Troponin [id number] 05:52:00 Test Item Value Reference Range Interpretation Comments Troponin I (test code = 0.22 ng/mL 0-0.15 HH 09918-7) ТАТЬЯНА (test code = ТАТЬЯНА) Troponin I [...] ZRES04 Lab Interpretation (test Abnormal code = 81728-9) [facility] CenterTROPONIN [id number] 05:52:00 Test Item Value Reference Range Interpretation Comments TROPONIN I (BEAKER) (test code = 0.22 ng/mL 0.00-0.15 HH 397) Troponin I (TnI) levels must be [...] failure, acidosis, acute neurological disease, and persistent tachyarrhythmia.Dye Machine Tender ID - [id number] METABOLIC [id number] 05:32:00 Test Item Value Reference Range Interpretation [...] S 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 Dye Machine Tender ID - WTVW41Sdkuwygs ID - VFBK84Rsznujlo ID - WVTN25Kpmzxstk ID - FSZV10Dwtlwurq ID - DCWG66Jgenayvz ID - GRMD40Mktykuhe ID - NGDO71Gkycrykj ID - FXVS25Ivxynvaw ID - NQDR93Ivqccsds ID - TARV83Xkjvsbkv ID - MLLB70Ksvanwrj ID - LKXU47Mezldppu ID - PLGU60PZ, BRAIN, WITHOUT [id number] 05:08:00Unlisted Reason for Exam - Click Yes and Enter Reason Below->YesUnlisted Reason for Exam->amsSTANF[facility]Name[facility] : 1945 Sex: [...] recommended for further characterization. Signed: Yessenia Perez [facility] Hospitalort Verified Date/Time: 08/29/2020 05:08:18 CT brain without IV [id number] 05:08:00Interface, External Ris In - 08/29/2020 5:11 [...] recommended for further characterization. Signed: Yessenia Perez [facility] Hospitalort Verified Date/Time: 08/29/2020 05:08:18 [facility] W/PLT COUNT & AUTO [id number] 04:50:00 Test Item Value Reference Range Interpretation [...] (BEAKER) (test code = 2801) Occult blood, [id number] 03:55:00 Test Item Value Reference Range Interpretation Comments Occult blood (test code = 2335-8) Negative Negative Lab Interpretation (test code = Normal 39868-9) [facility] CenterOCCULT BLOOD, [id number] 03:55:00 Test Item Value Reference Range Interpretation Comments FECAL OCCULT BLOOD (BEAKER) (test Negative Negative code = 618) HEPATITIS B SURFACE [id number] 17:43:00 Test Item Value Reference Range Interpretation Comments HEPATITIS B SURFACE ANTIGEN (2) Nonreactive Nonreactive (BEAKER) (test code = 2585) Dye Machine Tender ID - JUSTINTROPONIN [id number] 16:41:00 Test Item Value Reference Range Interpretation Comments TROPONIN I (BEAKER) (test code = 0.26 ng/mL 0.00-0.15 HH 397) Troponin I (TnI) levels must be [...] failure, acidosis, acute neurological disease, and persistent tachyarrhythmia.Dye Machine Tender ID - RAHMSONIAMirtha F4474-22-21 09:49:00 Test Item Value Reference Range Interpretation Comments TROPONIN I (BEAKER) (test code = 0.29 ng/mL 0.00-0.15 [facility]) Troponin I (TnI) levels must be interpreted [...] failure, acidosis, acute neurological disease, and persistent tachyarrhythmia.Dye Machine Tender ID - RAHMABASIC METABOLIC PANEL 2020-08-28 07:01:00 Test Item Value [...] S 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 Dye Machine Tender ID - ZQPW10Lvwrphur ID - KTJN88Dcnxsdcf ID - QARY05Rshgogoe ID - VRTU98Pnffdyfl ID - DTWT13Guucmbus ID - VJJR05Ewqdpeyu ID - MZHG35Tabecpqr ID - HZTQ55Lbxpjiqr ID - FRJE49Qpccpyxv ID - PGVN69Kmogfneo ID - KKGO10Srejzvyg ID - [id number] ID - [id number] W/PLT COUNT & AUTO [id number] 06:29:00 Test Item Value Reference Range Interpretation [...] PERCENT (BEAKER) (test code = 2801) Prothrombin time/[id number] 02:15:00 Test Item Value Reference Interpretation Comments [...] valves. Lab Interpretation Abnormal (test code = 19723-7) [facility] Center[facility]HROMBIN TIME/[id number] 02:15:00 Test Item Value Reference Range Interpretation Comments PROTIME (BEAKER) 12.4 seconds 9.3-12.0 H Final Infor mation (test code = 759) (Auto Outp ut) INR (BEAKER) (test 1.12 See_Comment Final Inf ormation code = 370) (Auto Output) [Automated mess age] The system ic h generated this result transmitted ref erence range: <=5.90. The reference range was not used to int erpret this result as normal/abnormal . RECOMMENDED COUMADIN/WARFARIN INR THERAPY RANGESSTANDARD DOSE: 2.0 - 3.0 Includes: PROPHYLAXIS forvenous thrombosis, systemic embolization; TREATMENT for venous thrombosis and/or pulmonary embolus.HIGH RISK: Target INR is 2.5-3.5 for patients with mechanical heart valves.COMPREHENSIVE METABOLIC [id number] 02:11:00 Test Item Value Reference Range Interpretation [...] S 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 Dye Machine Tender ID - [id number] ID - JNRY94Htnyvbox ID - YNYD55Fkpcagou ID - PZTJ90Nmjripaj ID - LVWV41Brjjoqkm ID - OSJE88Gmonofvg ID - FRTH36Dieomceh ID - XMKX79Gspwfydi ID - LITZ09Soujshvw ID - [id number] [id number] 02:10:00 Test Item Value Reference Range Interpretation Comments TRIGLYCERIDES (BEAKER) (test code = 116 mg/dL 540) CHOLESTEROL (BEAKER) (test code = 84 mg/dL 631) HDL CHOLESTEROL ([facility]) (test code 23 mg/dL = 976) LDL CHOLESTEROL CALCULATED ([facility]) 38 mg/dL (test code = 633) Triglyceride Reference Range: Low Risk <150 Borderline 150-199 High Risk 200-499 Very High Risk >=500Cholesterol Reference Range: Low Risk <200 Borderline 200-239 High Risk >240HDL Cholesterol Reference Range: Low Risk >=60 High Risk <40LDL Cholesterol Reference Range: Optimal <100 Near Optimal 100-129 Borderline 130-159 High 160-189 Very High >=190 Dye Machine Tender ID - [id number] ID - GOLN85Ggwyiiux ID - [id number] Urinalysis w/Microscopic + Reflex to [id number] 02:09:00 Test Item Value Reference Range Interpretation Comments Color, UA (test code = Red 5778-6) Clarity, UA (test code Turbid = 5767-9) Specific Jackson, UA 1.020 1.001-1.035 (test code = 5811-5) pH, UA (test code = 8.5 5.0-8.0 H 5803-2) Protein, UA (test code >=300 mg/dL Negative A = 85625-9) Glucose, UA (test code 100 mg/dL Negative A = 365) Ketones, UA (test code 15 mg/dL Negative A = 2514-8) Bilirubin, UA (test Positive Negative A code = 25274-5) Blood, UA (test code = Large Negative A 45895-3) Nitrite, UA (test code Positive Negative A = 5802-4) Leukocytes, UA (test Large Negative A code = 5799-2) Urobilinogen, UA (test >=8.0 0.2-1 H code = 01688-2) Bacteria, UA (test code Moderate = 00606-0) RBC, UA (test code = >100 See_Comment [Autom ated 799-7) message] The sy stem which generated this result transmitted reference range : /HPF. The refer ence range was not u sed to interpret th is result as normal/abnormal . WBC, UA (test code = 10-20 See_Comment [Autom ated 73432-3) message] The sy stem which generated this result transmitted reference range : /HPF. The refer ence range was not u sed to interpret th is result as normal/abnormal . SQUAMOUS EPITHELIAL 5-10 See_Comment [Automa radha (test code = 29413-1) messag e] The system which generated this result transmitted reference range : /HPF. The refer ence range was not u sed to interpret th is result as normal/abnormal . Specimen Source (test code = 2795) Lab Interpretation Abnormal (test code = 18208-2) [facility]FLEX URINE [id number] 02:09:00 Test Item Value Reference Range Interpretation [...] SOURCE(BEAKER) (test code = 2795) Hepatic function [id number] 02:07:00 Test Item Value Reference Range Interpretation Comments Protein, Total (test 6.5 See_Comment [Autom ated code = 2885-2) message] The system which generated this result transmit radha reference range : 6.0 - 8.5 gm/dL . The reference range was not u sed to interpret th is result as normal/abnormal . Albumin (test code = 3.1 g/dL 3.5-5 L 12842-4) Total Bilirubin (test 0.5 mg/dL 0.1-1.2 code = 1975-2) Bilirubin, Direct 0.3 mg/dL 0-0.4 (test code = 1968-7) Alkaline Phosphatase 56 U/L 30-115 (test code = 6768-6) AST (test code = 35 U/L 5-40 1920-8) ALT (test code = 30 U/L 5-50 1742-6) ТАТЬЯНА (test code = ТАТЬЯНА) Dye Machine Tender ID - [id number] ID - JBLR54Mshlpeke ID - GGHI82Iseemllp ID - MNUR56Yvljtnod ID - VSDB19Jjfhytxa ID - YAPI35Jlkxhxqt ID - [id number] Lab Interpretation Abnormal (test code = 58508-8) [facility] CenterHEPATIC FUNCTION [id number] 02:07:00 Test Item Value Reference Range Interpretation [...] (test code = 30 U/L 5-50 347) Dye Machine Tender ID - NCXV22Gptbkyxm ID - DQVO31Nxrbcllu ID - EOWP11Jjyosvbz ID - QLWB62Icmirtom ID - ADXK96Mtmrfprc ID - BBVH90Ikyralom ID - [id number] A1c 2020-08-28 01:48:00 Test Item Value Reference Range Interpretation Comments Hemoglobin A1C (test code 4.8 % 4.3-6.1 = 4548-4) ТАТЬЯНА (test code = ТАТЬЯНА) Dye Machine Tender ID - [id number] Lab Interpretation (test Normal code = 74714-8) [facility] CenterHEMOGLOBIN [id number] 01:48:00 Test Item Value Reference Range Interpretation Comments HEMOGLOBIN A1C (BEAKER) (test code = 4.8 % 4.3-6.1 368) Dye Machine Tender ID - [id number] 01:42:00 Test Item Value Reference Range Interpretation Comments MAGNESIUM (BEAKER) (test code = 2.2 mg/dL 1.5-3.0 627) Dye Machine Tender ID - [id number] ID - IBLK48Vjiztyxf ID - KCVP26Xzlhwpls ID - [id number] [id number] 01:39:00 Test Item Value Reference Range Interpretation Comments PHOSPHORUS (BEAKER) (test code = 5.0 mg/dL 2.5-4.5 H 604) Dye Machine Tender ID - [id number] W/PLT COUNT & AUTO [id number] 01:37:00 Test Item Value Reference Range Interpretation [...] H PERCENT (BEAKER) (test code = 2801) [id number] 00:00:00Ordered by an unspecified provider.[facility] CenterAirway2021-02-04 08:11:47Rafael Blas CRNA 07/29/2020 8:12 AMAirway Date/Time: 07/29/2020 7:40 AM Location: OR Performed by: CATALINA/AAAuthorized by: Saud Villatoro MD Urgency: ElectiveDifficult Airway: No Preoxygenated with 100% O2: Yes C-spine Precautions Maintained Throughout: Yes Mask Ventilation: Not attemptedFinal Airway Type: Endotracheal airwayFinal Endotracheal Airway: ETTCuffed: Yes Technique Used: Direct laryngoscopyDevices/Methods Used in Placement: Intubating styletInsertion Site: OralBlade Type: MillerLaryngoscope Blade/Videolaryngoscope Blade Size: 2ETT Size (mm): 8.0Cuff at minimum o cclusion pressure: Yes Measured from: LipsETT to Lips (cm): 21Placement Verified by: CO2 detection, direct visualization and equal breath sounds Laryngoscopic view: Grade I - full view of glottisRapid Sequence Induction (RSI): No Modified RSI: No Number of Attempts at Approach: 1[place] Jew Potassium, [id number] 07:20:20 Test Item Value Reference Range Interpretation Comments Potassium, syringe 5.0 See_Comment [Automat ed message] The (test code = 2008) system [employer] generated this result tra nsmitted reference range : 3.5 - 5.0 mEq/L. The refe rence range was not used to interpret this result as normal/abnormal . Luis MarieeCOVID-19 qualitative [id number] 22:42:40 Test Item Value Reference Range Interpretation Comments Interpretation (test Negative results do code = 8491541) not preclude 2019-nCoV infection and should not be used as the sole basis for treatment or other patient management decisions. Negative results must be combined with clinical observations, patient history, and epidemiological information. COVID-19 qualitative Not-Detected Not-Detected PCR result (test code = 84814-9) COVID-19 qualitative See link below for C ase Number: PCR (test code = PDF Lab Report [id number]) Luis SilvestreistECG Pre/Post [id number] 18:59:42 Test Item Value Reference Range Interpretation Comments Ventricular rate (test 82 code = 253) Atrial rate (test code 82 = 255) [place] interval (test code 174 = 266) QRSD [...] of 08-JUL-2014 11:47,-No significant change was found- Luis Phoenix [id number] 11:07:00Surgical Pathology Report Case: [id number] Authorizing Provider: Bin Acevedo, Collected: 02/12/2020 09:33 AM OrderingLocation: [facility] Received: 02/12/2020 10:58 AM PERIOPERATIVE SERVICES Pathologist: Carlos Betancourt MD Specimen: Carotid, Left, LEFT CAROTID PLAQUE ARTERY, LEFT CAROTID, ENDARTERECTOMY:CALCIFIC ATHEROSCLEROTIC PLAQUE Signing Pathologist Direct Phone Line: [phone] signed by Carlos Betancourt MD on 02/17/2020 at 11:07 [id number]; 51623Tghf carotid stenosis Carotid, LeftA. Received fresh labeled with the patient's name, medical record number and "parotid, left" is a previously incised portion of yellow plaque measuring 1.6 cm in length and 0.8 cm in diameter. Specimen is serially sectioned to reveal calcifications measuring up to 0.2 cm in thickness. Communication And Outreach Manager sections are submitted in A1, following decalcification.SATISH Madrid PA (ASCP)PerformedHEPATITIS B SURFACE [id number] 14:11:00 Test Item Value Reference Range Interpretation Comments HEPATITIS B SURFACE ANTIGEN (2) Nonreactive Nonreactive (BEAKER) (test code = 2585) Specimen is considered negative for HBsAg.POC-Glucose [id number] 13:03:00 Test Item Value Reference Range Interpretation Comments POC-Glucose Meter (test 83 mg/dL 70-110 : TE STED AT [facility] code = 1538) [address] [place] [address], 770 30: Dye Machine Tender/Techni justus ID = [id number] for JOIE DONG Lab Interpretation (test Normal code = 33397-3) [facility]-GLUCOSE [id number] 13:03:00 Test Item Value Reference Range Interpretation Comments POC-GLUCOSE METER 83 mg/dL 70-110 : TESTED A T [place] [address] [facility] (test code = [facility], 1538) [address]: Dye Machine Tender/Techni justus ID = [id number] for ELGI N, JOIE POC ACTIVATED CLOTTING [id number] 06:30:00 Test Item Value Reference Range Interpretation Comments Activated Clotting Time 235 sec : 74 -137 seconds, (test code = 441) Baseline: TESTED AT [facility] [address] [facility], [address] 30: Dye Machine Tender/Techni justus ID = [id number] for DON FARLEY [facility] CenterPOCT-[id number] 06:30:00 Test Item Value Reference Range Interpretation Comments ACTIVATED CLOTTING TIME 235 sec : 74 -137 seconds, (BEAKER) (test code = Baseli ne: TESTED AT 441) [facility] [address] [facility], 770 30: Dye Machine Tender/Techni justus ID = [id number] for DON FARLEY BASIC METABOLIC [id number] 06:01:00 Test Item Value Reference Range Interpretation [...] S 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 Dye Machine Tender ID - LIAM LPOCT-GLUCOSE EBNOD5733-75-67 06:00:00 Test Item Value Reference Range Interpretation Comments POC-GLUCOSE METER 94 mg/dL 70-110 : TESTED A T [facility] 6720 (BEAKER) (test code = [facility], 1538) [address]: Dye Machine Tender/Techni justus ID = [id number] for Aren Cheatham [id number] 05:49:00 Test Item Value Reference Range Interpretation Comments MAGNESIUM (BEAKER) (test code = 1.9 mg/dL 1.6-2.6 627) Dye Machine Tender ID - LIAM YVubtucse6974-72-88 05:31:00 Test Item Value Reference Range Interpretation Comments Cortisol, Total (test code 8.3 ug/dL 3.7-19.4 = 2755) ТАТЬЯНА (test code = ТАТЬЯНА) Dye Machine Tender ID - CARLO Lab Interpretation (test Normal code = 00199-1) [facility] CenterCORTISOL2020-08-21 05:31:00 Test Item Value Reference Range Interpretation Comments CORTISOL, TOTAL (BEAKER) (test code 8.3 ug/dL 3.7-19.4 = 2755) Dye Machine Tender ID - EDASICBC (HEMOGRAM ONLY)2020-02-13 03:06:00 Test Item Value Reference [...] (test code = 413) TSH/Free T4 If [id number] 02:45:00 Test Item Value Reference Range Interpretation Comments TSH (test code = 4.682 See_Comment [Automated 59727-4) message] The system which generated this result transmit radha reference range : 0.350 - 4.940 uIU/mL. The reference range was not used to interpret this result as normal/abnormal . ТАТЬЯНА (test code = ТАТЬЯНА) Dye Machine Tender ID - PIAYA L Lab Interpretation Normal (test code = 20755-9) [facility] CenterTSH/FREE T4 IF [id number] 02:45:00 Test Item Value Reference Range Interpretation Comments THYROID STIMULATING HORMONE 4.682 uIU/mL 0.350-4.940 (BEAKER) (test code = 772) Dye Machine Tender ID - PIAYA LPOCT-GLUCOSE [id number] 00:32:00 Test Item Value Reference Range Interpretation Comments POC-GLUCOSE METER 82 mg/dL 70-110 : TESTED A T [facility] 67[address] (BEAKER) (test code = [place], 1538) [address]: Dye Machine Tender/Techni justus ID = [id number] for Aren Cheatham Blood gas, [id number] 18:26:00 Test Item Value Reference Range Interpretation [...] % Lab Interpretation Abnormal (test code = 61364-6) [facility] CenterBLOOD GAS, [id number] 18:26:00 Test Item Value Reference Range Interpretation [...] code = 1819) 21.0 % COMPREHENSIVE METABOLIC [id number] 18:16:00 Test Item Value Reference Range Interpretation [...] S 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 Dye Machine Tender ID - [id number] 18:14:00 Test Item Value Reference Range Interpretation Comments MAGNESIUM (BEAKER) (test code = 1.8 mg/dL 1.6-2.6 627) Dye Machine Tender ID - NTPCalcium, Jcauxwi8494-61-74 18:02:00 Test Item Value Reference Range Interpretation Comments Calcium, Ion (test code = 1994-3) 1.14 mmol/L 1.12-1.27 pH, Blood (test code = 22550-2) 7.32 [facility], [id number] 18:02:00 Test Item Value Reference Range Interpretation Comments CALCIUM IONIZED (BEAKER) (test 1.14 mmol/L 1.12-1.27 code = 698) PH, BLOOD (BEAKER) (test code = 7.32 1810) [id number] 18:01:00 Test Item Value Reference Range Interpretation [...] (BEAKER) (test code = 413) HGB/HCT (H&H)-Stat [id number] 10:37:00 Test Item Value Reference Range Interpretation Comments Hemoglobin (test code = 786-4) 9.2 g/dL 13-16.8 L Hematocrit (test code = 4544-3) 27.0 % 40-50 L Lab Interpretation (test code = Abnormal 55533-6) [facility] CenterBLOOD GAS, [id number] 10:37:00 Test Item Value Reference Range Interpretation [...] 1819) 60.0 % HGB/HCT (H&H) - STAT [id number] 10:37:00 Test Item Value Reference Range Interpretation Comments HEMOGLOBIN (BEAKER) (test code = 9.2 g/dL 13.0-16.8 L 410) HEMATOCRIT (BEAKER) (test code = 27.0 % 40.0-50.0 L 411) Glucose-Stat [id number] 10:36:00 Test Item Value Reference Range Interpretation Comments Glucose (test code = 2345-7) 104 mg/dL 70-110 Lab Interpretation (test code = Normal 50450-1) [facility] [id number] 10:36:00 Test Item Value Reference Range Interpretation Comments Sodium (test code = 2951-2) 137 meq/L 136-145 Lab Interpretation (test code = Normal 97289-9) [facility] CenterPotassium-Stat [id number] 10:36:00 Test Item Value Reference Range Interpretation Comments Potassium (test code = 2823-3) 4.0 meq/L 3.6-5.5 Lab Interpretation (test code = Normal 50273-0) [facility] CenterGLUCOSE-STAT [id number] 10:36:00 Test Item Value Reference Range Interpretation Comments GLUCOSE RANDOM (BEAKER) (test code 104 mg/dL 70-110 = 652) SODIUM NA-STAT [id number] 10:36:00 Test Item Value Reference Range Interpretation Comments SODIUM (BEAKER) (test code = 381) 137 meq/L 136-145 POTASSIUM-STAT [id number] 10:36:00 Test Item Value Reference Range Interpretation Comments POTASSIUM (BEAKER) (test code = 4.0 meq/L 3.6-5.5 379) SARS-COV2/RT-PCR ([facility])2020-02-12 08:04:00 Test Item Value Reference Range Interpretation Comments SARS-COV2/RT-PCR (test code Negative Not Detected, Negative, = 8748606) See external report for linked test SARS-COV-2 PERFORMING LAB [facility] (test code = 6091973) Negative results do not preclude SARS-CoV-2 infection [...] of the Act.Fact Sheet for Healthcare Pro viders:https://www.[employer]/Documents/Xpert%20Xpress%20SARS%20CoV-2/Fact%20Sh eets/302-3802%38TOYI-IWO-8%20HEALTHCARE%20PROVIDERS%20FACT%20SHEET.pdfFact Sheet for Healthcare Patients:https://www.[employer]/Documents/Xpert%20Xpress%20SARS%20CoV-2/Fact%20Sheets/302-3801%20SARS-COV -2%20PATIENT%20FACT%20SHEET.pdfPerforming Laboratory:[facility], [place] [address]ZIDGT METABOLIC [id number] 07:28:00 Test Item Value Reference Range Interpretation [...] S 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 Dye Machine Tender ID - NTPCBC W/PLT COUNT & AUTO [id number] 07:21:00 Test Item Value Reference Range Interpretation [...] 0-1 PERCENT (BEAKER) (test code = 2801) HGB/HCT (H&H) - STAT [id number] 06:45:00 Test Item Value Reference Range Interpretation Comments HEMOGLOBIN (BEAKER) (test code = 11.3 g/dL 13.0-16.8 L 410) HEMATOCRIT (BEAKER) (test code = 33.0 % 40.0-50.0 L 411) GLUCOSE-STAT [id number] 06:42:00 Test Item Value Reference Range Interpretation Comments GLUCOSE RANDOM (BEAKER) (test code 103 mg/dL 70-110 = 652) POTASSIUM-STAT [id number] 06:42:00 Test Item Value Reference Range Interpretation Comments POTASSIUM (BEAKER) (test code = 4.8 meq/L 3.6-5.5 379) POCT-GLUCOSE [id number] 05:51:00 Test Item Value Reference Range Interpretation Comments POC-GLUCOSE METER 108 mg/dL 70-110 : TESTED A T [facility] [address] (BEAKER) (test [facility], = 1538) [address]: Dye Machine Tender/Techni justus ID = [id number] for JORD AN, LACRYSTAL Electrocardiogram, [id number] 12:45:46Interface, External Ris In - 02/03/2020 12:45 PM CDTVentricular Rate 72 BPMAtrial Rate 72 BPMP-R Interval 172 msQRS Duration 92 msQ-T Interval 396 msQTC Calculation(Bazett) 433 msP Maddock 63 degreesR Maddock 55 degreesT Maddock 73 degreesNormal sinus rhythmNormal ECGNo previous ECGs availableConfirmed by MD Almaguer Roberto ([id number]) on 02/03/2020 12:45:38 [facility]
[2020-11-17 06:37] LABS: Absolute Lymphocytes (CBC) 0.8 K/uL (0.7-4.9); Basophils % 0.3 % (0-1.3); Hematocrit 21.3 % (39.6-49.0); Lymphocytes % 6.3 % (15.3-44.8); MPV 8.3 fL (7.6-11.3); RBC Red Blood Cell Count 2.28 M/uL (4.33-5.43)
[2020-11-17 06:50] LABS: Protime INR 1.1
--- NOTE | 2020-11-17 06:57 | ER ---
Nurse's Notes [facility] Name[facility] Robbie Kelly Age: 75 yrs Sex: Male : 1945 Arrival Date: 11/17/2020 Time: 06:04 Bed 18 Private MD: Diagnosis: Anemia in chronic kidney disease;End stage renal disease;Weakness Presentation: 11/17 06:04 Chief complaint: EMS states: Toned out for low SPO2, reported sats were in the ea 40s, EMS reported sats in the mid 80s. BGL 99, pt placed on O2 at 4L per nasal cannula. Pt tolerating well. Coronavirus screen: At this time, the client does not indicate any symptoms associated with coronavirus-19. Ebola Screen: No symptoms or risks identified at this time. Initial Sepsis Screen: Does the patient meet any 2 criteria? No. Patient's initial sepsis screen is negative. Does the patient have a suspected source of infection? No. Patient's initial sepsis screen is negative. Risk Assessment: Do you want to hurt yourself or someone else? Patient reports no desire to harm self or others. Onset of symptoms was November 17, 2020. 06:04 Method Of Arrival: EMS: [facility] ea 06:04 Acuity: DADA 3 ea Historical: - Allergies: 06:09 No Known Allergies; ea - Home Meds: 06:09 Ventolin HFA 90 mcg/actuation Nebulizer HFAA 1 puff every 4 hours [Active]; tamsulosin ea 0.4 mg Oral cp24 1 cap once daily [Active]; oxybutynin chloride 5 mg Oral tab 1 tab 3 times per day [Active]; metoprolol tartrate 50 mg Oral tab 1 tab once daily for on days that he does not have dialysis [Active]; atorvastatin 40 mg Oral tab 1 tab once daily [Active]; folic acid 0.8 mg Oral cap [Active]; hydroxyzine HCl 25 mg Oral tab 1 tab 4 times per day [Active]; levothyroxine 88 mcg tab 1 tab once daily [Active]; renal vitamin [Active]; - PMHx: 06:09 RENAL FAILURE; POLYCYSTIC KIDNEY DISEASE; Hypothyroidism; Hypertension; COPD; Dialysis; ea M,W,F; Anemia; - Immunization history:: Adult Immunizations unknown. - Social history:: Patient/guardian denies using alcohol, street drugs, The patient lives with family, Smoking status: unknown. - Family history:: not pertinent. Screenin:06 Abuse screen: Denies threats or abuse. Nutritional screening: No deficits noted. ea Tuberculosis screening: No symptoms or risk factors identified. Fall Risk None identified. Assessment: 06:29 General: Appears in no apparent distress. Behavior is calm, cooperative, appropriate ea for age. Pain: Denies pain. Neuro: Level of Consciousness is awake, alert, obeys commands, Oriented to person, place, time. Cardiovascular: Patient's skin is warm and dry. Respiratory: Airway is patent Respiratory effort is even, unlabored, Respiratory pattern is regular, symmetrical. Derm: Skin is pink, warm \T\ dry. 07:15 Reassessment: No changes from previously documented assessment. kg 07:56 Reassessment: Critical lab called from Giulia of elevated creatinine and troponin. Dr. kirk [facility] was notified. . Vital Signs: 06:04 BP 119 / 53; Pulse 95; Resp 16; Temp 98.2; Pulse Ox 96% on 3 lpm NC; Weight 80.74 kg; ea Height 5 ft. 10 in. (177.80 cm); 07:00 BP 118 / 61; Pulse 89; Resp 20; Pulse Ox 92% on R/A; kg 08:00 BP 125 / 57; Pulse 86; Resp 20; Pulse Ox 92% on R/A; kg 09:00 BP 114 / 67; Pulse 287; Resp 20; Pulse Ox 93% ; kg 10:04 BP 125 / 63; Pulse 82; Resp 20; Pulse Ox 93% on 3 lpm NC; kg 06:04 Body Mass Index 25.54 (80.74 kg, 177.80 cm) ea ED Course: 06:04 Patient arrived in ED. iw 06:04 Jazmin Orta, LEXII is Primary Nurse. ea 06:06 Triage completed. ea 06:07 Patient has correct armband on for positive identification. Bed in low position. Call ea light in reach. Side rails up X2. 06:07 Arm band placed on right wrist. Patient placed in an exam room, on a stretcher, on ea pulse oximetry. 06:10 Korey Antonio MD is Attending Physician. ma2 06:30 No provider procedures requiring assistance completed. Inserted saline lock: 20 gauge ea in right forearm, using aseptic technique. Blood collected. 06:38 XRAY Chest (1 view) In Process Unspecified. EDMS 06:57 Angus Sanchez MD is Hospitalizing Provider. ma2 08:48 Consulted physician to see patient. ap3 10:10 Report given to Celestina SHULTZfire sprinkler service technician. kg Administered Medications: No medications were administered Outcome: 06:57 Decision to Hospitalize by Provider. ma2 10:25 Admitted to Med/surg accompanied by tech, via wheelchair, with oxygen, Report called to kg Celestina 10:25 Condition: good 10:25 Instructed on the need for admit. 10:26 Patient left the ED. kg Signatures: Dispatcher [employer] Gini Cao RN LEXII iw Jazmin Orta RN RN Korey Llanes MD MD ma2 Penelope Gu RN RN ap3 Sunshine Morris kg Corrections: (The following items were deleted from the chart) 06:30 06:04 BP 119 / 53; Pulse 95bpm; Resp 16bpm; Pulse Ox 96%; Temp 98.2F; 80.74 kg; Height ea 5 ft. 10 in.; BMI: 25.5; ea
--- NOTE | 2020-11-17 06:58 | EDPHYS ---
Physician Documentation [facility] Name: Robbie Kelly Age: 75 yrs Sex: Male : 1945 Arrival Date: 11/17/2020 Time: 06:04 Bed 18 Private MD: ED Physician Korey Antonio HPI: 11/17 06:30 This 75 yrs old Male presents to ER via EMS with complaints of oxygen fell ma2 and was SOB. 06:30 Onset: The symptoms/episode began/occurred suddenly, 1 hour(s) ago. Associated signs ma2 and symptoms: Pertinent negatives: productive cough, dizziness, loss of consciousness, numbness in extremities. Severity of symptoms: At their worst the symptoms were mild in the emergency department the symptoms have resolved. The patient has experienced similar episodes in the past. Historical: - Allergies: 06:09 No Known Allergies; ea - Home Meds: 06:09 Ventolin HFA 90 mcg/actuation Nebulizer HFAA 1 puff every 4 hours [Active]; tamsulosin ea 0.4 mg Oral cp24 1 cap once daily [Active]; oxybutynin chloride 5 mg Oral tab 1 tab 3 times per day [Active]; metoprolol tartrate 50 mg Oral tab 1 tab once daily for on days that he does not have dialysis [Active]; atorvastatin 40 mg Oral tab 1 tab once daily [Active]; folic acid 0.8 mg Oral cap [Active]; hydroxyzine HCl 25 mg Oral tab 1 tab 4 times per day [Active]; levothyroxine 88 mcg tab 1 tab once daily [Active]; renal vitamin [Active]; - PMHx: 06:09 RENAL FAILURE; POLYCYSTIC KIDNEY DISEASE; Hypothyroidism; Hypertension; COPD; Dialysis; ea M,W,F; Anemia; - Immunization history:: Adult Immunizations unknown. - Social history:: Patient/guardian denies using alcohol, street drugs, The patient lives with family, Smoking status: unknown. - Family history:: not pertinent. ROS: 06:30 Constitutional: Negative for fever, chills, and weight loss. ma2 06:30 All other systems are negative. Exam: 06:30 Constitutional: This is a well developed, well nourished patient who is awake, alert, ma2 and in no acute distress. Eyes: Pupils equal round and reactive to light, extra-ocular motions intact. Lids and lashes normal. Conjunctiva and sclera are non-icteric and not injected. Cornea within normal limits. Periorbital areas with no swelling, redness, or edema. ENT: Nares patent. No nasal discharge, no septal abnormalities noted. Tympanic membranes are normal and external auditory canals are clear. Oropharynx with no redness, swelling, or masses, exudates, or evidence of obstruction, uvula midline. Mucous membranes moist. Neck: Trachea midline, no thyromegaly or masses palpated, and no cervical lymphadenopathy. Supple, full range of motion without nuchal rigidity, or vertebral point tenderness. No Meningismus. Chest/axilla: Normal chest wall appearance and motion. Nontender with no deformity. No lesions are appreciated. Cardiovascular: Regular rate and rhythm with a normal S1 and S2. No gallops, murmurs, or rubs. Normal PMI, no JVD. No pulse deficits. Respiratory: Lungs have equal breath sounds bilaterally, clear to auscultation and percussion. No rales, rhonchi or wheezes noted. No increased work of breathing, no retractions or nasal flaring. Abdomen/GI: Soft, non-tender, with normal bowel sounds. No distension or tympany. No guarding or rebound. No evidence of tenderness throughout. MS/ Extremity: Pulses equal, no cyanosis. Neurovascular intact. Full, normal range of motion. Neuro: Awake and alert, GCS 15, oriented to person, place, time, and situation. Cranial nerves II-XII grossly intact. Motor strength 5/5 in all extremities. Sensory grossly intact. Cerebellar exam normal. Normal gait. Vital Signs: 06:04 BP 119 / 53; Pulse 95; Resp 16; Temp 98.2; Pulse Ox 96% on 3 lpm NC; Weight 80.74 kg; ea Height 5 ft. 10 in. (177.80 cm); 07:00 BP 118 / 61; Pulse 89; Resp 20; Pulse Ox 92% on R/A; kg 08:00 BP 125 / 57; Pulse 86; Resp 20; Pulse Ox 92% on R/A; kg 09:00 BP 114 / 67; Pulse 287; Resp 20; Pulse Ox 93% ; kg 10:04 BP 125 / 63; Pulse 82; Resp 20; Pulse Ox 93% on 3 lpm NC; kg 06:04 Body Mass Index 25.54 (80.74 kg, 177.80 cm) MDM: 06:[address] [facility] 06:30 Differential diagnosis: asthma, Bronchitis Chronic Obstructive Pulmonary Disease wy2 pneumonia, reactive airway disease. The patient's Wells Deep Vein Thrombosis Score was calculated as follows: No Risks (0 Pts). The patient's pulmonary embolism risk score was calculated as follows: No Risks (0 Pts). Data reviewed: vital signs, nurses notes. Counseling: I had a detailed discussion with the patient and/or guardian regarding: the historical points, exam findings, and any diagnostic results supporting the discharge/admit diagnosis, the presence of at least one elevated blood pressure reading (>120/80) during this emergency department visit. 06:47 ED course: discussed with dr. nixon and recommend talking with hospitalist. we paged ma2 dr. heart no call back yet.. david has hb of 6.9 in the setting of weakness he needs transfusion and he needs HD as he missed his scheduled dialysis today . 06:55 ED course: discussed with dr. kelly . [facility] 06:55 ED course: discussed with dr. stover and dr. sanchez . [facility] 11/17 06:11 Order name: Basic Metabolic Panel [facility] 11/17 06:11 Order name: CBC with Diff [facility] 11/17 06:11 Order name: LFT's [facility] 11/17 06:11 Order name: Magnesium [facility] 11/17 06:11 Order name: NT PRO-BNP [facility] 11/17 06:11 Order name: PT-INR; Complete Time: 06:54 [facility] 11/17 06:11 Order name: Troponin (emerg Dept Use Only) [facility] 11/17 06:11 Order name: XRAY Chest (1 view) [facility] 11/17 06:11 Order name: EKG; Complete Time: 06:11 [facility] 11/17 06:39 Order name: CBC Smear Scan [facility] 11/17 07:01 Order name: Type And Screen 11/17 07:50 Order name: CONS Physician Consult [facility] 11/17 07:54 Order name: SARS-COV-2 RT PCR [facility] 11/17 06:11 Order name: Cardiac monitoring; Complete Time: 06:30 [facility] 11/17 06:11 Order name: EKG - Nurse/Tech; Complete Time: 06:30 [facility] 11/17 06:11 Order name: IV Saline Lock; Complete Time: 06:30 [facility] 11/17 06:11 Order name: Labs collected and sent; Complete Time: 06:30 [facility] 11/17 06:11 Order name: O2 Per Protocol; Complete Time: 06:14 [facility] 11/17 06:11 Order name: O2 Sat Monitoring; Complete Time: 06:14 [facility] Administered Medications: No medications were administered Disposition: 11/17/20 06:57 Hospitalization ordered by Angus Sanchez for Inpatient Admission. Preliminary diagnosis are Anemia in chronic kidney disease, End stage renal disease, Weakness. - Bed requested for Telemetry/MedSurg (observation). - Status is Inpatient Admission. kg - Condition is Stable. - Problem is new. - Symptoms are unchanged. Signatures: Dispatcher [employer] [facility] Janet Edmondson RN RN dw Antunez, Elena, RN RN ea Alzahri, Mohammad, MD MD [facility] [employer]: (The following items were deleted from the chart) 07:12 06:18 CORONAVIRUS+MR.LAB.BRZ ordered. [facility] 09:27 06:57 Hospitalization Ordered by Angus Sanchez MD for Inpatient Admission. Preliminary diagnosis is Anemia in chronic kidney disease; End stage renal disease; Weakness. Bed requested for Telemetry/MedSurg (observation). Status is Inpatient Admission. Condition is Stable. Problem is new. Symptoms are unchanged. [facility] 10: 09:27 11/17/2020 06:57 Hospitalization Ordered by Angus Sanchez MD for Inpatient kg Admission. Preliminary diagnosis is Anemia in chronic kidney disease; End stage renal disease; Weakness. Bed requested for Telemetry/MedSurg (observation). Status is Inpatient Admission. Condition is Stable. Problem is new. Symptoms are unchanged. dw
[2020-11-17 07:40] LABS: Albumin 2.9 g/dL (3.4-5.0); Bilirubin Direct 0.1 mg/dL (0-0.2); Bilirubin Total 0.4 mg/dL (0.2-1.0); Magnesium 2.3 mg/dL (1.8-2.4); Potassium 4.7 mmol/L (3.5-5.1); Protein, Total 6.8 g/dL (6.4-8.2); Troponin (Emerg Dept Use Only) 1.01 ng/mL (0.0-0.045)
[2020-11-17 08:08] LABS: Blood Morphology Comment NOT SEEN (NOT SEEN); Platelet Estimate ADEQ; White Blood Cell Scan OK (OK)
--- NOTE | 2020-11-17 09:37 | P.HP ---
Certification for Inpatient Patient admitted to: Observation With expected LOS: <2 Midnights Patient will require the following post-hospital care: None Practitioner: I am a practitioner with admitting privileges, knowledge of patient current condition, hospital course, and medical plan of care. Services: Services provided to patient in accordance with Admission requirements found in Title 42 Section 412.3 of the Code of Federal Regulations Patient History Date of Service: 11/17/20 Reason for admission: Weakness, Hypoxia History of Present Illness: Patient is a 75-year-old male with a past medical history significant for ESRD, hypothyroidism, BPH, hypertension, COPD, bladder cancer, hyperlipidemia who presents with complaint of weakness and hypoxia. Patient is on home O2 at 3 liters/minute. Spouse reported that the patient was off his O2 therapy overnight and when patient woke up this am, his O2 sat was 40%. Spouse reported that patient fell out of bed this morning. Patient denies hitting his head or losing consciousness. She also indicated that patient was diagnosed with bladder cancer recently and currently follows up with a urologist in [place], [place]. She reported that patient started following up with an oncologist yesterday for the first time. Patient reports associated signs and symptoms of fatigue, sob and hematuria. Symptoms are aggravated or relieved by nothing. Spouse that reported that she called the dialysis center and was informed to send patient to the ER. Allergies No Known Allergies Allergy (Verified 01/22/20 11:13) Home Medications: Aspirin [Aspirin EC] 81 mg PO DAILY 11/17/20 Atorvastatin Calcium 40 mg PO DAILY 11/17/20 Fluticasone/Salmeterol [Fluticasone-Salmeterol 113-14] 1 puff PO BID 11/17/20 Folic Acid/Vit B Complex and C [Aileen-Shari Tablet] 0.8 mg PO DAILY 11/17/20 Levothyroxine [Synthroid*] 88 mcg PO DAILY 11/17/20 Metoprolol Tartrate 25 mg PO BID 11/17/20 Omeprazole PO DAILY 11/17/20 Sennosides/Docusate Sodium [Colace 2-in-1 Tablet] PO DAILY 11/17/20 Sevelamer Carbonate 800 mg PO AC 11/17/20 hydrOXYzine HCL [Atarax*] 25 mg PO Q6H PRN 11/17/20 - Past Medical/Surgical History Diabetic: No -: HTN -: Hypothyroid -: polycystic kidney -: diverticulitis -: COPD -: anemia -: CKD -: AAA repair -: Colonoscopy -: AAA repair - Family History Father -: Heart disease Mother -: Heart disease - Social History Smoking Status: Former smoker Alcohol use: No CD- Drugs: No Caffeine use: Yes Review of Systems General: Weakness, Other (fatigue ) Eyes: Unremarkable ENT: Unremarkable Respiratory: Shortness of Breath, SOB with Excertion Cardiovascular: Unremarkable Gastrointestinal: Unremarkable Genitourinary: Hematuria Neurological: Weakness Lymphatics: Unremarkable Physical Examination - Physical Exam General: Alert, In no apparent distress, Oriented x3 HEENT: Normocephalic, PERRLA Neck: Supple, 2+ carotid pulse no bruit, No LAD, Without JVD or thyroid abnormality Respiratory: Clear to auscultation bilaterally, Diminished Cardiovascular: Regular rate/rhythm, Normal S1 S2 Capillary refill: <2 Seconds Gastrointestinal: Normal bowel sounds, No tenderness Musculoskeletal: No tenderness Integumentary: No rashes Neurological: Normal gait, Normal speech, Normal strength at 5/5 x4 extr, Normal tone, Normal affect Lymphatics: No axilla or inguinal lymphadenopathy External genitalia: Deferred Rectal: Deferred - Studies Laboratory Data (last 24 hrs) 11/17/20 06:24: PT 12.7 H, INR 1.10 11/17/20 06:24: WBC 12.30 H, Hgb 6.9 L*, Hct 21.3 L, Plt Count 233 11/17/20 06:24: Sodium 135 L, Potassium 4.7, BUN 57 H, Creatinine 10.40 H* D, Glucose 103, Magnesium 2.3, Total Bilirubin 0.4, AST 16, ALT 16, Alkaline Phosphatase 63 Assessment and Plan - Plan --Symptomatic acute loss plus anemia. Secondary to hematuria. Pt has a Hx of Bladder Cancer. Urology consulted. 2 units of PRBC ordered. Will continue to monitor H&H. --ESRD. Nephrology consulted. Patient scheduled to have dialysis today. 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 --Bladder cancer. Oncologist notified via phone. Oncologist- Dr Nory Cuadra indicates she will follow up with the patient in the hospital. Further management per oncologist. --Pneumonia. As Noted on imaging. Blood cultures pending. Patient placed on antibiotics, neb treatment with albuterol\ Atrovent, Brovana , steroids and O2 therapy. --Acute respiratory failure with hypoxia. Secondary to pneumonia and COPD exacerbation. Continue current treatment regimen. --Acute on chronic COPD exacerbation. Continue current treatment regimen. --Hypertension. Stable. Continue home medications. --Hypothyroidism. Continue Synthriod --GERD. Continue home medication --Hyperlipidemia. Continue statin. --BPH. Continue home medications. --DVT prophylaxis with SCDs. Discharge Plan: Home Plan to discharge in: 48 Hours - Advance Directives Does patient have a Living Will: No Does patient have a Durable POA for Healthcare: No - Code Status/Comfort Care Code Status Assessed: Yes Code Status: Full Code Critical Care: No
--- NOTE | 2020-11-17 10:07 | RAD REPORT ---
EXAM DESCRIPTION: RAD - Chest Single View - 11/17/2020 6:38 am CLINICAL HISTORY: CONGESTION Chest pain. COMPARISON: Chest Pa And Lat (2 Views) dated 10/12/2020; Chest Single View dated 09/27/2020; Chest Sing le View dated 08/27/2020; Chest Pa And Lat (2 Views) dated 01/22/2020 FINDINGS: Portable technique limits examination quality. Bilateral pulmonary opacities have moderately worsened since the comparative study dated 10/12/2020. The heart is mildly enlarged in size. No displaced fractures.Vascular stent is seen upper left arm. IMPRESSION: Moderate worsening in bilateral pulmonary opacities since the comparative study.
[2020-11-17] MEDS ORDERED: ACETAMINOPHEN 500 MG TAB PO PRN (10:15)
[2020-11-17] MEDS ORDERED: HYDROCODONE/APAP 5/325 MG TAB PO PRN (10:15)
[2020-11-17] MEDS ORDERED: NA CHLORIDE 0.9% 250 ML IV SCH (10:15)
[2020-11-17] MEDS ORDERED: ONDANSETRON 4 MG/2 ML VIAL IV PRN (10:15)
[2020-11-17] MEDS ORDERED: ALBUTEROL 2.5 MG/3 ML NEB SOL NEB PRN (10:15)
[2020-11-17 11:15] VITALS: BMI 25.5
--- NOTE | 2020-11-17 11:57 | EKG ---
Test Date: 2020-11-17 Test Time: 06:27:56 Oxide Furnace Tender: DANIA MEASUREMENT RESULTS: Intervals: Rate: 93 MI: 172 QRSD: 96 QT: 368 QTc: 457 [place]: P: 61 MI: 172 QRS: 62 T: 36 INTERPRETIVE STATEMENTS: Sinus rhythm with premature atrial complexes Nonspecific ST and T wave abnormality Abnormal ECG Compared to ECG 08/27/2020 12:46:10 Atrial premature complex(es) now present ST (T wave) deviation still present Electronically Signed On 11-17-20 11:56:47 CDT by Stephan Marino
[2020-11-17] MEDS ORDERED: Levofloxacin500mg IV 500 MG/100 ML BAG IV SCH (12:00)
[2020-11-17] MEDS ORDERED: Levofloxacin500mg IV 500 MG/100 ML BAG IV ONE (13:00)
--- NOTE | 2020-11-17 13:34 | RAD REPORT ---
EXAM DESCRIPTION: CT - Chest Abd Pelvis Wo Con - 11/17/2020 11:46 am CLINICAL HISTORY: Chest and abdomen pain. hypoxia, anemia, h/o polycystic kidney dz COMPARISON: Thorax Wo Con dated 09/27/2020 TECHNIQUE: A limited noncontrast study was performed. All CT scans are performed using dose optimization technique as appropriate and may include automated exposure control or mA/KV adjustment according to patient size. FINDINGS: Advanced COPD is present. There is an area of irregular lung opacity in the right apex fei suring 5.6 cm. Area of lung opacity is also noted in the posterior left apex measuring 6.0 cm. 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 Numerous cysts are present in the liver, unchanged. Polycystic kidneys are present bilaterally. There is mild right-sided hydronephrosis and hydroureter present. Soft tissue thickening at the level of t he right UVJ is present measuring up to 15 mm. The spleen, pancreas and adrenal glands are normal. Ch olecystectomy clips. Evidence of previous endovascular repair of abdominal aortic aneurysm evident. Left lower quadrant sigmoid colon demonstrates several diverticula with mild surrounding inflammatory changes. Normal appendix. No pathologic lymphadenopathy in the abdomen or pelvis. No worrisome osseous finding. Moderate lower lumbar spine degenerative changes. IMPRESSION: Soft tissue thickening at the level of the right UVJ up to 15 mm is present with mild ri ght hydronephrosis and hydroureter seen.It is possible that there is a mass lesion in this region of the bladder. Suggest followup direct visualization with cystoscopy. Advanced COPD with irregular biapical lung opacities noted. This may represent areas of confluent fib rosis or infection/ infiltrates. Mild left lower quadrant sigmoid acute diverticulitis is suspected. 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 Polycystic kidney disease.
[2020-11-17] MEDS: hydrOXYzine HCL 25 MG TAB PO PRN ×2 (13:42→19:41)
[2020-11-17] MEDS: IPRATROPIUM BROM 0.5MG/2.5ML NEB SCH ×2 (13:48→20:15)
--- NOTE | 2020-11-17 14:03 | CON ---
Date of Consultation: 11/17/2020 Reason For Consultation: Elevated BUN and creatinine, end-stage renal disease. History Of Present Illness: This is a pleasant 75-year-old gentleman, well known to me from dialysis with significant past medical history of end-stage renal disease, on hemodialysis, Sunday, Sunday, Sunday at [facility] through AV fistula, COPD, hypertension, bladder cancer status post biopsy, hyperlipidemia, polycystic kidney disease, coronary artery disease, follows up with Dr. Marino, the patient was in his regular state of health up to today morning. Apparently, the patient was confused, off his oxygenation. checked his O2 saturation, found to be hypoxemic, down to the 40, called dialysis unit, advised and directed to the emergency room. In the emergency room, a primary workup found hypoxemic and low H and H, hemoglobin down to 6.9. The patient was admitted. The patient denied any chest pain. The patient has hematuria. No hematochezia. Past Medical History: Includes; 1. Hypertension. 2. Polycystic kidney disease with end-stage renal disease. 3. Hypothyroidism. 4. Bladder cancer status post biopsy, follows up with Urology in [place]. Follows up also with Oncology, Dr. Carrasco. 5. COPD. 6. AAA. 7. Colonoscopy. Family History: Positive for coronary artery disease and diabetes and polycystic kidney disease. Social History: Ex-smoker. Denied alcohol. Denied drugs abuse. Review of Systems: Head and Neck: No red eye. No ear pain. GI: No nausea. No vomiting. : No polyuria. Has hematuria. Snaker Tractor Driver: Not applicable. Respiratory: No shortness of breath. Cardiovascular: No chest pain. Endocrine: No polydipsia. Skin: No rash. Neuro: Has loss of consciousness, confusion. Musculoskeletal: Generalized fatigue. Physical Examination: General: When I saw the patient, the patient lying in bed, comfortable, not on any distress. Vital Signs: Blood pressure 125/63, pulse of 82. Chest: Clear to auscultation. Heart: S1, S2. Systolic murmur. Abdomen: Soft, nontender. Extremities: No edema. Neuro: Alert. No focality. Laboratory Data: WBC 12.3, H and H 6.9/21.3, platelet 233. Sodium 135, potassium 4.7, bicarb 25, BUN 57, creatinine 10.4, calcium 8.8, magnesium 2.3. Troponin 1.01. Current Medications: The patient on at home include; 1. Atorvastatin. 2. Metoprolol. 3. Atarax. 4. Folic acid. 5. Metoprolol. 6. Levothyroxine. 7. Omeprazole. Assessment And Plan: 1. End-stage renal disease secondary to polycystic kidney disease. The patient due for dialysis today. We will start the patient on dialysis. We will arrange for the dialysis today. We will arrange for 2 units of blood transfusion with dialysis. 2. Anemia of chronic kidney disease/blood loss secondary to hematuria/cancer. I am going to request the record from Dr. Carrasco. We will resume BRONWYN, we will transfuse, and we will start IV iron. 3. Secondary hyperparathyroidism, stable. We will monitor the patient. 4. Hematuria and polycystic kidney disease. Start the patient on antibiotic. We will follow up. 5. Polycystic kidney disease with hematuria as above. 6. Coronary artery disease. Had EKG evaluation by Cardiology 1 month ago, was cleared for surgery. We will follow up. 7. Bladder carcinoma. Follow up with Oncology and Urology. Thank you Dr. Sanchez for allowing us to participate in the care of your patient. time spend discussing with patient exam the patient face to face , reviewing the data, placing order , discussing with other team lead including nursing staff , discussing with hospitalist and other aerodynamic consultant 65 min [id number] Voice ID: [id number] Report ID: [id number]
[2020-11-17] MEDS: METHYLPREDNISOLONE 40 MG INJ IV SCH (17:36)
[2020-11-17 18:56] LABS: Urine Appearance CLOUDY (Clear); Urine Bilirubin NEGATIVE (Negative); Urine Blood 3+ (Negative); Urine Color DK YELLOW (Yellow); Urine Glucose NEGATIVE (Negative); Urine Protein 3+ (Negative); Urine Urobilinogen 0.2 mg/dL (0.2-1.0)
[2020-11-17 19:12] LABS: Urine Microscopic Reflex ORDER UMIC
[2020-11-17 19:30] LABS: Urine Bacteria <20 /HPF (NONE SEEN); Urine RBC >50 /HPF (NONE SEEN)
[2020-11-17] MEDS: ARFORMOTEROL TARTRATE 15 MCG/2 ML VIAL.NEB NEB SCH (20:15)
[2020-11-17] MEDS: SALMETEROL PO SCH (20:39)
[2020-11-17] MEDS: METOPROLOL TAR 25 MG TAB PO SCH (20:39)
[2020-11-17] MEDS: FLUTICASONE PO SCH (20:39)
--- NOTE | 2020-11-17 22:16 | CON ---
Date of Consultation: 11/17/2020 Reason For Consultation: Hematuria and symptomatic anemia. Consulting Physician: Dr. Sanchez. History Of Present Illness: This is a 75-year-old gentleman on hemodialysis with end-stage renal disease associated with an AV fistula with also COPD, hypertension, polycystic kidney disease, coronary artery disease, and hyperlipidemia, who had previously presented for evaluation earlier this year via the Emergency Department with gross hematuria. He was seen by Dr. Huang in [place] where bladder biopsies were performed and a diagnosis of urothelial carcinoma of the bladder was made. He subsequently had identified some of that carcinoma involving his upper tract urothelium on the right side and the patient and his explained that he has planned for a right-sided nephroureterectomy. They suggest his bladder had been freed of malignancy. The patient has presented at this time with a decrease in his oxygenation and confusion and was ultimately sent to the emergency department from his dialysis unit. Past Medical History: As above. His oncologist is Dr. Cueto. Family History: He has a family history of polycystic kidney disease as well as coronary artery disease. Social History: He is an ex-smoker. Physical Examination: GENERAL: On examination, the patient is pleasant and alert but it is unclear how oriented he is. He has no dyspnea or signs of respiratory distress while lying in bed. He was pleasant and cooperative. ABDOMEN: Soft, nontender, and nondistended. GENITALIA: He was uncircumcised with no glandular lesions and the meatus was orthotopic and patent without evident discharge. The testes were bilaterally descended without mass. There was no perineal tenderness. Laboratory Review: Revealed a hemoglobin of 6.9 and hematocrit of 21.3 associated with a white blood count of 12.3 and an elevation of his troponin levels. Imaging Procedure: CT scan obtained, 11/17/2020 without contrast to my review revealed the presence of multiple bilateral renal cystic lesions, some either hyperdense cysts or solid masses seen bilaterally. Assessment And Recommendation: This is a 75-year-old gentleman with end-stage renal disease on HD Sunday, Sunday, Sunday in [place] via an AV fistula with chronic obstructive pulmonary disease, hypertension, and known polycystic kidney disease in the setting of coronary artery disease with a known abdominal aortic aneurysm. Now admitted with symptomatic anemia associated with a history of bladder cancer and right-sided upper tract urothelial carcinoma with bilateral renal cysts with complexity, possible solid renal masses. Because the patient is somewhat symptomatic of potential obstruction due to the gross hematuria, but feels that it has lightened in character at this point, I recommend an 18-Georgian coude-tipped urethral Dorman catheter be inserted and a brief observation of his urine be made. If his urine is translucent, either light pink or perhaps tea-colored, but not thick and bright red like tomato juice, the bleeding is no longer significant enough to continue a rapid drop of his hematocrit, and it is unlikely to further obstruct his voiding. In that case, the catheter may be removed and the patient allowed to continue to void. However, if there is significant bright red and thick tomato juice appearing urine, irrigation of his bladder may be required; so the catheter should be left in place for now. Management of his anemia and any cardiac dysfunction per primary medical team with ultimate surgical management to be completed by Dr. Huang who has already established plans for surgery with the patient. Recommend urine culture to be sent from the catheter if 1 has not already been sent to assess for signs of infection, potentially complicating the circumstance and continued antimicrobial therapy as appropriate. Ultimately, the patient may require bilateral nephrectomy, but this may be determined after the right side has been managed by Dr. Huang. IZA/MATTHEW Voice ID: [id number] Report ID: [id number] MARY
[2020-11-17] MEDS ORDERED: NA CHLORIDE 0.9% 250 ML ONE (22:37)
[2020-11-17] MEDS: FUROSEMIDE 40 MG/4 ML VIAL IV ONE (23:27)
[2020-11-18] MEDS: METHYLPREDNISOLONE 40 MG INJ IV SCH ×3 (00:10→17:00)
[2020-11-18] MEDS: IPRATROPIUM BROM 0.5MG/2.5ML NEB SCH ×4 (01:15→20:00)
[2020-11-18] MEDS: FUROSEMIDE 40 MG/4 ML VIAL IV ONE (02:01)
[2020-11-18] MEDS: LEVOTHYROXINE SOD 0.088 MG TAB PO SCH (04:42)
[2020-11-18 04:57] LABS: Absolute Lymphocytes (CBC) 0.4 K/uL (0.7-4.9); Basophils % 0.1 % (0-1.3); Hematocrit 22.7 % (39.6-49.0); Lymphocytes % 4.8 % (15.3-44.8); MPV 8.5 fL (7.6-11.3); RBC Red Blood Cell Count 2.44 M/uL (4.33-5.43)
[2020-11-18 05:43] LABS: Bicarbonate 22 mmol/L (21-32); Sodium Level 131 mmol/L (136-145)
[2020-11-18 05:44] LABS: BUN Blood Urea Nitrogen 74 mg/dL (7-18); Ferritin 1100.7 ng/mL (26-388); Folic Acid, (Folate) > 20.0 ng/mL (3.1-17.5); Glucose Level 170 mg/dL (74-106); Phosphorus 8.1 mg/dL (2.5-4.9); Transferrin 189 mg/dL (200-360)
[2020-11-18 06:04] LABS: Potassium 5.7 mmol/L (3.5-5.1)
[2020-11-18] MEDS: PANTOPRAZOLE 40MG TABLET PO SCH (07:30)
[2020-11-18] MEDS: ARFORMOTEROL TARTRATE 15 MCG/2 ML VIAL.NEB NEB SCH ×2 (08:35→20:00)
[2020-11-18] MEDS: MULTIVITAMINS,THERAPEUT 1 TAB PO SCH (08:43)
[2020-11-18] MEDS: ATORVASTATIN 40 MG TAB PO SCH (08:43)
[2020-11-18] MEDS: DOCUSATE NA/SENNA CONC 1 TAB PO SCH (08:43)
[2020-11-18] MEDS: METOPROLOL TAR 25 MG TAB PO SCH ×2 (08:44→23:33)
[2020-11-18] MEDS: FLUTICASONE PO SCH ×2 (08:45→21:00)
[2020-11-18] MEDS: hydrOXYzine HCL 25 MG TAB PO PRN ×2 (08:45→23:33)
[2020-11-18] MEDS: SALMETEROL PO SCH ×2 (08:45→21:00)
[2020-11-18] MEDS ORDERED: HOME MED 1 EA UNK (Omeprazole [Omeprazole] 10 MG Capsule.Dr) PO SCH (09:00)
[2020-11-18] MEDS ORDERED: HOME MED 1 EA UNK (Folic Acid/Vit B Complex And C [Rena-Vite Tablet] 0.8 MG Tablet) PO SCH (09:00)
[2020-11-18] MEDS ORDERED: NS 0.9% VIAL 40 ML ONE (11:09)
[2020-11-18] MEDS ORDERED: BUPIVACAINE 0.25% PF 30 ML VIAL ONE (11:10)
[2020-11-18] MEDS ORDERED: HEPARIN 5000 UNIT/ML 1 ML VIAL ONE (11:10)
[2020-11-18] MEDS ORDERED: NA CHLORIDE 0.9% 500 ML ONE (11:15)
[2020-11-18] MEDS ORDERED: MIDAZOLAM HCL 2 MG/2 ML INJ ONE (11:44)
[2020-11-18] MEDS ORDERED: LIDOCAINE 1% MPF 5 ML VIAL ONE (11:44)
[2020-11-18] MEDS ORDERED: FENTANYL CITR 100 MCG/2 ML ONE (11:44)
[2020-11-18] MEDS ORDERED: propofoL 200 MG/20 ML VIAL IV ONE (11:44)
--- NOTE | 2020-11-18 12:39 | P.OP ---
Preoperative diagnosis: End Stage Renal Disease Postoperative diagnosis: End Stage Renal Disease Primary procedure: Placement of LEFT internal jugular tunnelled hemodialysis catheter Secondary procedure: ultrasound, flouroscopy used, microintroducer used Anesthesia: MAC + Local Estimated blood loss: <10cc Specimen: none Findings: dark nonpulsatile blood returned, catheter in SVC Complications: None Implants: Tunnelled Hemosplit catheter 23cm Transferred to: Recovery Room Condition: Good
[2020-11-18] MEDS ORDERED: NS 0.9% VIAL 20 ML ONE (12:50)
--- NOTE | 2020-11-18 13:05 | CON ---
Date of Consultation: 11/18/2020 Brief History Of Present Illness: The patient is a 75-year-old male with past medical history signif icant for end-stage renal disease, hypothyroidism, BPH, hypertension, COPD, bladder cancer, hyperlipi demia, who presents to the hospital on 11/17 with complaints of weakness and hypoxia. He has normall y at home on home oxygen at 3 L per minute and was brought to the hospital. He had a previous AV gra ft placed, which was revised to an AV fistula in the left upper extremity that was attempted to be ac cessed, but nonfunctional on this particular occasion. As such, I am requested to place a tunneled h emodialysis catheter for ongoing hemodialysis. Past Medical History: Significant for hypertension, hypothyroidism, polycystic kidney, diverticuliti s, COPD, anemia, CKD, abdominal aortic aneurysm, bladder cancer, peripheral arterial disease, coronar y artery disease. Past Surgical History: Includes AV fistula creation, AV graft creation, AAA repair, colonoscopy, car otid endarterectomy. Family History: Significant for heart disease in father and mother. Social History: He has a former smoking history. Denies alcohol or recreational drug use. Review of Systems: Ten-point review of systems other than HPI, denies. Physical Examination: Vital Signs: At the time of my examination; his BMI was 25.5, his heart rate was 82, blood pressure 135/70, SpO2 92% on 3 L nasal cannula, and respiratory rate 19. General: He is awake, alert, oriented. Psychiatric: Appropriate. Conversive. HEENT: Normocephalic. Sclerae icteric. Mucous membranes are moist. Oropharynx clear. Neck: Supple. No JVD. Chest: Normal expansion and excursion. Cardiovascular: Regular rate and rhythm. Pulmonary: Clear to auscultation bilaterally. Abdomen: Soft, nontender, nondistended. No rebound. No guarding. No focal peritonitis. Extremities: No clubbing, cyanosis, edema. Laboratory Data: Revealed a white blood cell count of 8.3, hemoglobin 7.9, hematocrit of 22.7, plate let count was 226. His neutrophils are 94%. Sodium 131, potassium 5.7, chloride 98, carbon dioxide 22, BUN 74, creatinine 12.2, glucose 170, phosphorus 8.1, magnesium is 2.3. His ferritin was 1107. Troponin is 1.01. Rapid troponins; initial troponin I was 1.19 and 1.07. ProBNP is 19,314. His fol ate was greater than 20. B12 is 57. He had imaging performed, which included a CT chest, abdomen an d pelvis CT on 11/17 officially read as soft tissue thickening at the level of the right ureterovesic ular junction up to 15 mm is present with mild right hydronephrosis, hydroureter seen. It is possibl e there is a mass lesion in this region of the bladder suggests direct visualization on cystoscopy. Advanced COPD with irregular biapical lung opacities noted, may represent confluent fibrosis, infecti on, infiltrates. Mild left lower quadrant sigmoid acute diverticulitis is suspected. 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 Polycystic kidney disease. Assessment And Plan: This is a 75-year-old male, who comes in with multiple medical problems as desc ribed above, now with no hemodialysis access. 1.Continue medical management and electrolyte correction in preparation for surgery. 2.I have explained the risks, benefits, and alternatives of placement of a tunneled hemodialysis cat heter including, but not limited to bleeding, infection, damage to great vessels, pneumothorax, colla psed lung, need for further operation and procedures. The patient agrees to proceed as indicated. Thank you for this interesting consult. LUCÍA/MATTHEW Voice ID: [id number] Report ID: [id number]
--- NOTE | 2020-11-18 13:17 | OP ---
Date of Procedure: 11/18/2020 Surgeon: Brian Burris MD, Preoperative Diagnosis: End-stage renal disease. Postoperative Diagnosis: End-stage renal disease. Procedure Performed: Placement of a left internal jugular tunneled hemodialysis catheter using ultra sound and fluoroscopy guidance with microintroducer set. Anesthesia: MAC plus local with 0.25% Marcaine. Estimated Blood Loss: Less than 10 mL. Specimen: None. Findings: Dark nonpulsatile blood return. #1 catheter placed in the SVC. Complications: None. Implants: Tunneled HemoSplit 23 cm catheter. Disposition: The patient was transferred to recovery room in good condition. Procedure In Detail: After informed consent was obtained, the patient was brought to the operating r oom, prepped and draped in the usual sterile fashion after adequate anesthesia achieved. An ultrasou nd probe was used to interrogate the left internal jugular vein, which was found to be widely patent and easily compressible with visualized carotid artery on the same side. At this point, I anesthetiz ed the skin overlying the insertion site of the internal jugular vein on the left and on the first at tempt, I cannulated the left internal jugular vein using a microintroducer set. At this point, dark nonpulsatile blood returned. A microwire was advanced and fluoroscopy confirmed position of the wire to be coiling at this point. At this point, a small kristofer incision was made and the microintroducer sheath was advanced at this point. After the microintroducer sheath was placed, the microwire was re moved and microwire out called at this point and using fluoroscopic guidance and some repositioning, I was able to guide the standard wire into the introducer sheath into the SVC confluence and this was confirmed with fluoroscopy. At this point, a tunneling tract was anesthetized on the chest wall ove r the clavicle and at this point, a kristofer incision was enlarged over the insertion site and on the katina st wall. At this point, the tunneling device was used to bring the catheter, which was a 23 cm strai ght HemoSplit catheter up into the insertion site. At this point, sequential dilatation was performe d under fluoroscopic guidance and the introducer sheath was then advanced at this point and the stand jeanette wire was removed at this point. Dark nonpulsatile blood was returned throughout the procedure an d I then advanced the catheter and under direct visualization to see the advancement to the confluenc e of the superior vena cava without evidence of complication. At this point, I irrigated the skin ar eas and placed gauze on top and flushed the catheter and withdrew dark red nonpulsatile blood quite e asily from both ports. I then flushed both catheter ports with an additional 20 mL of saline and pac ked with heparin super flush at this point and placed caps at this point. The skin incisions were th en irrigated once again and the catheter was secured to the chest wall as well as closed the incision with simple interrupted 2-0 nylon sutures without evidence of complication and a sterile dressing pl aced over top. The patient tolerated the procedure well without evidence of complication, was placed out of Trendelenburg at the end of the procedure. All counts were correct at the end of the case. A stat chest x-ray will be performed in the PACU. LUCÍA/MATTHEW Voice ID: [id number] Report ID: [id number]
--- NOTE | 2020-11-18 13:43 | RAD REPORT ---
EXAM DESCRIPTION: RAD - Fluoroscopy <1 Hour - 11/18/2020 1:37 pm FINDINGS: There were 17 portable C-arm images submitted from a fluoroscopic assisted placement of a left-sided double-lumen dialysis catheter. Images show stepwise placement of the catheter. No suspici ous or unexpected finding. Fluoro time was 1.7 minutes. Cumulative dose was 42.5 mGy.
--- NOTE | 2020-11-18 13:45 | RAD REPORT ---
EXAM DESCRIPTION: RAD - Chest Single View - 11/18/2020 1:37 pm CLINICAL HISTORY: LEFT IJ Hemodialysis catheter COMPARISON: Portable November 17 TECHNIQUE: AP portable chest image was obtained 11/18/2020 1:37 pm . FINDINGS: Left-sided internal jugular double-lumen dialysis catheter has been placed. No abnormal be nd or kink of the tubing. Both the long and short arm of the tubing are in the midline chest correspo nding to brachiocephalic vein. No pneumothorax. Interstitial and alveolar opacification of both lung castaneda has not changed. Prominent cardiac silhou ette has not changed. No new or enlarging pleural effusion. IMPRESSION: Left-sided double-lumen dialysis catheter placement film shows no pneumothorax. Long and short arm of the catheter for near the aortic arch in the midline chest indicating positioni ng within the brachiocephalic vein.
--- NOTE | 2020-11-18 14:50 | CON ---
Date of Consultation: 11/17/2020 History Of Present Illness: The patient was admitted with hematuria, symptomatic anemia. The patien t had clotted AV fistula today, undergone PermCath placement. Physical Examination: Vital Signs: Blood pressure 154/64, pulse of 75. The patient had 1 unit of transfusion yesterday. Chest: Clear to auscultation. Heart: S1, S2. Systolic murmur. Abdomen: Soft, nontender. Extremities: No edema. Laboratory Data: H and H 7.9/22.7. Sodium 131, potassium 5.7, bicarb 22, BUN 74, creatinine 12, rinku cium 8.9, phosphorus 8.1. Iron saturation 20, ferritin of 1100. Current Medications: The patient on include Epogen, Levaquin, hydroxyzine, Tylenol, atorvastatin, me toprolol. Assessment And Plan: 1.End-stage renal disease with hyperkalemia, hyponatremia. The patient will be dialyzed today. 2.Hypertension, controlled, optimal. 3.Anemia secondary to hematuria, chronic kidney disease. Continue BRONWYN. Another unit of transfusion today. 4.Urethral cancer with polycystic kidney disease. Plan by Urology for right nephrectomy. Discussed the case with Dr. Cueto, Oncology. The patient had follow up with his urologist [facility]. TOM/MATTHEW Voice ID: [id number] Report ID: [id number]
--- NOTE | 2020-11-18 17:07 | P.PN ---
Subjective Date of Service: 11/18/20 Chief Complaint: Weakness, Hypoxia Subjective: Other (AVF stopped working yesterday, unable to have dialysis, received only 1 unit of RBCs. Patient breathing more comfortably, on 3 L nasal cannula. Patient feeling okay, itching a lot (chronic). General surgery consulted for dialysis catheter placement. Patient and report urine is less red) Review of Systems 10-point ROS is otherwise unremarkable Physical Examination - Vital Signs Temperature: 97.0 F Blood Pressure: 154/64 Pulse: 75 Respirations: 16 Pulse Ox (%): 92 Assessment & Plan Physician Review Additional Text: Physical Exam General: Alert, Oriented x3, itching HEENT: Normocephalic, PERRLA Respiratory: Clear to auscultation bilaterally, Diminished at bases bilaterally Cardiovascular: Regular rate/rhythm, Normal S1 S2 Gastrointestinal: soft, nontender, nondistended Musculoskeletal: No tenderness Integumentary: No rashes Neurological: Normal speech/affect Problem List Symptomatic acute blood-loss anemia, secondary to hematuria Hematuria secondary to bladder cancer. ESRD on HD h/o polycystic kidney disease AV fistula malfunction Acute hypoxic respiratory failure secondary to pneumonia Chronic COPD Hypertension Hypothyroidism GERD HLD BPH -urine reportedly clearing up, more tea-colored today -general surgery consulted for dialysis catheter placement, patient to undergo dialysis today with 2nd unit of blood -nephrology consulted to assist with dialysis -hematuria seems to be improving, and this will be an ongoing issue until he has this nephrectomy -Continue antibiotics, nebulizers, oxygen -pulmonology consulted, atypical opacities seen on CT chest -reviewed home medications, continue as appropriate, Synthroid, statin, antihypertensives Dispo: Anticipate discharge back home, likely tomorrow if continues to improve and no further issues/complications Time Spent Managing Pts Care (In Minutes): 35
[2020-11-18] MEDS: EPOETIN ALFA 10,000 UNIT/ML VIAL IV SCH (20:15)
[2020-11-19] MEDS: METHYLPREDNISOLONE 40 MG INJ IV SCH ×2 (01:08→09:03)
[2020-11-19] MEDS: IPRATROPIUM BROM 0.5MG/2.5ML NEB SCH ×3 (01:12→14:37)
[2020-11-19 05:36] LABS: Absolute Lymphocytes (CBC) 0.4 K/uL (0.7-4.9); Basophils % 0.1 % (0-1.3); Hematocrit 25.9 % (39.6-49.0); Lymphocytes % 3.6 % (15.3-44.8); MPV 8.9 fL (7.6-11.3)
[2020-11-19 05:49] LABS: Albumin 2.9 g/dL (3.4-5.0); C-Reactive Protein 64.8 mg/L (<3.00); Phosphorus 6.3 mg/dL (2.5-4.9); Potassium 5.1 mmol/L (3.5-5.1)
[2020-11-19] MEDS: LEVOTHYROXINE SOD 0.088 MG TAB PO SCH (06:30)
--- NOTE | 2020-11-19 07:28 | P.PN ---
Subjective Date of Service: 11/19/20 Chief Complaint: Weakness, Hypoxia Subjective: No new changes Physical Examination - Vital Signs Temperature: 97.0 F Blood Pressure: 115/60 Pulse: 75 Respirations: 18 Pulse Ox (%): 95 - Physical Exam General: In no apparent distress HEENT: Atraumatic, Normocephalic Neck: Supple Respiratory: Clear to auscultation bilaterally Cardiovascular: No edema, No rubs, No murmurs Gastrointestinal: Soft and benign Assessment And Plan - Plan # ESRD 2/2 PKD on HD MWF at [facility] HD received yesterday HD today x 2 hrs, then qMWF EDW 78.5 kgs +Clotted LFA AVG - I arranged for f/u w/ Vascular Surgery HD access: TDC placed on 11/18/20 Renal diet Monitor renal panel # Urethral cancer Plan by Urology for right nephrectomy. Discussed the case with Dr. Cueto, Oncology. Has follow up with his urologist [facility]. # Htn BP at goal # Anemia +hematuria pRBC transf on 11/18 Const BRONWYN # Renal osteodystrophy Monitor Ca & Phos # Dispo Ok to dc today after HD Physician Review Additional Text: Physical Exam General: Alert, Oriented x3, itching HEENT: Normocephalic, PERRLA Respiratory: Clear to auscultation bilaterally, Diminished at bases bilaterally Cardiovascular: Regular rate/rhythm, Normal S1 S2 Gastrointestinal: soft, nontender, nondistended Musculoskeletal: No tenderness Integumentary: No rashes Neurological: Normal speech/affect Problem List Symptomatic acute blood-loss anemia, secondary to hematuria Hematuria secondary to bladder cancer. ESRD on HD h/o polycystic kidney disease AV fistula malfunction Acute hypoxic respiratory failure secondary to pneumonia Chronic COPD Hypertension Hypothyroidism GERD HLD BPH -urine reportedly clearing up, more tea-colored today -general surgery consulted for dialysis catheter placement, patient to undergo dialysis today with 2nd unit of blood -nephrology consulted to assist with dialysis -hematuria seems to be improving, and this will be an ongoing issue until he has this nephrectomy -Continue antibiotics, nebulizers, oxygen -pulmonology consulted, atypical opacities seen on CT chest -reviewed home medications, continue as appropriate, Synthroid, statin, antihypertensives Dispo: Anticipate discharge back home, likely tomorrow if continues to improve and no further issues/complications
[2020-11-19] MEDS: ARFORMOTEROL TARTRATE 15 MCG/2 ML VIAL.NEB NEB SCH (08:47)
[2020-11-19] MEDS: SALMETEROL PO SCH (09:00)
[2020-11-19] MEDS: METOPROLOL TAR 25 MG TAB PO SCH (09:00)
[2020-11-19] MEDS: FLUTICASONE PO SCH (09:00)
[2020-11-19] MEDS: MULTIVITAMINS,THERAPEUT 1 TAB PO SCH (09:03)
[2020-11-19] MEDS: DOCUSATE NA/SENNA CONC 1 TAB PO SCH (09:03)
[2020-11-19] MEDS: ATORVASTATIN 40 MG TAB PO SCH (09:03)
[2020-11-19] MEDS: PANTOPRAZOLE 40MG TABLET PO SCH (09:04)
[2020-11-19 09:45] LABS: Blood Morphology Comment NOT SEEN (NOT SEEN); Platelet Estimate ADEQ; White Blood Cell Scan OK (OK)
--- NOTE | 2020-11-19 10:35 | P.CNS ---
Date of Consult: 11/19/20 Reason for Consult: Abnormal chest x-ray hypoxemia Chief Complaint: Weakness, Hypoxia History of Present Illness: Patient is 75 years of age end-stage renal disease on hemodialysis history of bladder cancer polycystic renal disease coronary artery disease admitted with right-sided abdominal pain was found to be hypoxic he has severe COPD has home oxygen compliant with his bronchodilators and patchy opacities were found on his x-ray currently denies any worsening in a pulmonary complaints denies any cough congestion fever chills He has home O2 and he was off his oxygen fell out of bed heating is head this found to be very anemic is follows up with a urologist in [place] pain is under control complaining of aconstipation Allergies No Known Allergies Allergy (Verified 01/22/20 11:13) Home Medications: Aspirin [Aspirin EC] 81 mg PO DAILY 11/17/20 Atorvastatin Calcium 40 mg PO DAILY 11/17/20 Fluticasone/Salmeterol [Fluticasone-Salmeterol 113-14] 1 puff PO BID 11/17/20 Folic Acid/Vit B Complex and C [Aileen-Shari Tablet] 0.8 mg PO DAILY 11/17/20 Levothyroxine [Synthroid*] 88 mcg PO DAILY 11/17/20 Metoprolol Tartrate 25 mg PO BID 11/17/20 Omeprazole PO DAILY 11/17/20 Sennosides/Docusate Sodium [Colace 2-in-1 Tablet] PO DAILY 11/17/20 Sevelamer Carbonate 800 mg PO AC 11/17/20 hydrOXYzine HCL [Atarax*] 25 mg PO Q6H PRN 11/17/20 - Past Medical/Surgical History Diabetic: No -: HTN -: Hypothyroid -: polycystic kidney -: diverticulitis -: COPD -: anemia -: CKD -: AAA repair -: Colonoscopy -: AAA repair - Family History Father Medical History: Heart disease Mother Medical History: Heart disease - Social History Smoking Status: Current some day smoker Alcohol use: No CD- Drugs: No Caffeine use: Yes Place of Residence: Home Review of Systems General: Weakness Respiratory: Shortness of Breath Gastrointestinal: Constipation Physical Examination Temp Pulse Resp BP Pulse Ox 98.5 F 84 18 118/59 L 94 11/19/20 08:00 11/19/20 08:00 11/19/20 08:00 11/19/20 08:00 11/19/20 08:00 General: Alert, In no apparent distress, Oriented x3 Respiratory: Clear to auscultation bilaterally, Diminished Cardiovascular: No edema, Regular rate/rhythm Gastrointestinal: Normal bowel sounds, Tenderness (Mild generalized tenderness no rebound) Integumentary: No rashes, No significant lesion - Problems (1) COPD (chronic obstructive pulmonary disease) Current Visit: Yes Status: Acute Plan: Patient is 75 years of age with a history of severe COPD admitted with some postinflammatory changes bilaterally on his chest x-ray probably some organizing pneumonia no evidence of infection cultures are all negative Patient to continue with his present therapy at home continue with oxygen I suggest low-dose prednisone/labs showed severe anemia his chronic renal failure on dialysis/vital signs are all stable no fever urinalysis hematuria CT scan Soft tissue thickening at the level of the right UVJ up to 15 mm is present with mild right hydronephrosis and hydroureter seen. Advanced COPD with irregular biapical lung opacities noted. This may represent areas of confluent fibrosis or infection/ infiltrates. Mild left lower quadrant sigmoid acute diverticulitis is suspected. 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 Polycystic kidney disease. Stable to be discharged Qualifiers: COPD type: unspecified COPD Qualified Code(s): J44.9 - Chronic obstructive pulmonary disease, unspecified
[2020-11-19] MEDS ORDERED: BISACODYL 10 MG RECTAL SUPP PR ONE (10:46)
[2020-11-19] MEDS ORDERED: Levofloxacin 250mg IV 250 MG/50 ML BAG IV SCH (13:00)
[2020-11-19 13:01] VITALS: O2SAT 93
[2020-11-19 13:39] VITALS: BP 115/60; TEMP 97
[2020-11-19] MEDS: EPOETIN ALFA 10,000 UNIT/ML VIAL IV SCH (13:54)
--- NOTE | 2020-11-19 21:53 | P.DS ---
Admission Date: 11/17/20 Discharge Date: 11/19/20 Disposition: ROUTINE DISCHARGE Discharge Condition: FAIR Reason for Admission: Weakness, Hypoxia Consultations: General Surgery - Fatuma -for dialysis cath placement Nephrology - Dr. Hector, Ann Cardiology - Dr. Marino Pulmonology - Dr. Browne Procedures: CXR (11/17): Moderate worsening in bilateral pulmonary opacities since the compar ative study. CT Abd/pelvis (11/17): Soft tissue thickening at the level of the right UVJ up to 15 mm is present with mild right hydronephrosis and hydroureter seen.It is possible that there is a mass lesion in this region of the bladder. Suggest followup direct visualization with cystoscopy. Advanced COPD with irregular biapical lung opacities noted. This may represent areas of confluent fibrosis or infection/ infiltrates. Mild left lower quadrant sigmoid acute diverticulitis is suspected. 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 CXR (11/18): Left-sided double-lumen dialysis catheter placement film shows no pneumothorax. Long and short arm of the catheter for near the aortic arch in the midline chest indicating positioning within the brachiocephalic vein. Problem List Symptomatic acute blood-loss anemia, secondary to hematuria Hematuria secondary to bladder cancer. ESRD on HD h/o polycystic kidney disease AV fistula malfunction Chronic COPD Hypertension Hypothyroidism GERD HLD BPH Brief History of Present Illness: Patient is a 75-year-old male with a past medical history significant for ESRD, hypothyroidism, BPH, hypertension, COPD, bladder cancer, hyperlipidemia who presents with complaint of weakness and hypoxia. Patient is on home O2 at 3 liters/minute. Spouse reported that the patient was off his O2 therapy overnight and when patient woke up this am, his O2 sat was 40%. Spouse reported that patient fell out of bed this morning. Patient denies hitting his head or losing consciousness. She also indicated that patient was diagnosed with bladder cancer recently and currently follows up with a urologist in [place], [place]. She reported that patient started following up with an oncologist yesterday for the first time. Patient reports associated signs and symptoms of fatigue, sob and hematuria. Symptoms are aggravated or relieved by nothing. Spouse that reported that she called the dialysis center and was informed to send patient to the ER. Hospital Course: Patient was covered empirically with levaquin for mild leukocytosis. Procal mildly elevated. Urine culture and Blood cultures remained negative. Antibiotics were NOT continued on discharge. CT chest noted irregular opacities in apical lung castaneda in advanced COPD. Dr. Browne, pulm, was consulted and reviewed the imaging. Recommended discontinuation of antibiotics and treated with low dose steroid over the next few days. Hematuria improved from troy red blood to a more tea-colored urine. Hemoglobin/anemia responded well to transfusion of PRBCs Patient's AV fistula malfunctioned and was unable to undergo dialysis on day of admission. General surgery was consulted and placed a dialysis catheter. Patient able to subsequently undergo dialysis. Nephrology assisted in scheduling for patient to f/u with vascular surgery next week. Vital Signs/Physical Exam: Physical Exam General: Alert, Oriented x3, itching HEENT: Normocephalic, PERRLA Respiratory: Clear to auscultation bilaterally, Diminished at bases bilaterally Cardiovascular: Regular rate/rhythm, Normal S1 S2 Gastrointestinal: soft, nontender, nondistended Musculoskeletal: No tenderness Integumentary: No rashes Neurological: Normal speech/affect Temp Pulse Resp BP Pulse Ox 97.0 F 75 18 115/60 95 11/19/20 13:43 11/19/20 13:43 11/19/20 13:43 11/19/20 13:43 11/19/20 13:43 Laboratory Data at Discharge: WBC 11.80 K/uL (4.3-10.9) H D 11/19/20 05:02 Hgb 8.6 g/dL (13.6-17.9) L 11/19/20 05:02 Hct 25.9 % (39.6-49.0) L 11/19/20 05:02 Plt Count 241 K/uL (152-406) 11/19/20 05:02 PT 12.7 SECONDS (9.5-12.5) H 11/17/20 06:24 INR 1.10 11/17/20 06:24 Sodium 139 mmol/L (136-145) 11/19/20 05:02 Potassium 5.1 mmol/L (3.5-5.1) 11/19/20 05:02 BUN 55 mg/dL (7-18) H 11/19/20 05:02 Creatinine 8.67 mg/dL (0.55-1.3) H* D 11/19/20 05:02 Glucose 142 mg/dL (74-106) H 11/19/20 05:02 Phosphorus 6.3 mg/dL (2.5-4.9) H 11/19/20 05:02 Magnesium 2.3 mg/dL (1.8-2.4) 11/17/20 06:24 Total Bilirubin 0.4 mg/dL (0.2-1.0) 11/17/20 06:24 AST 16 U/L (15-37) 11/17/20 06:24 ALT 16 U/L (12-78) 11/17/20 06:24 Alkaline Phosphatase 63 U/L (45-117) 11/17/20 06:24 Troponin I 1.07 ng/mL (0.0-0.045) H* 11/17/20 16:08 Home Medications: Aspirin [Aspirin EC] 81 mg PO DAILY 11/17/20 Atorvastatin Calcium 40 mg PO DAILY 11/17/20 Fluticasone/Salmeterol [Fluticasone-Salmeterol 113-14] 1 puff PO BID 11/17/20 Folic Acid/Vit B Complex and C [Aileen-Shari Tablet] 0.8 mg PO DAILY 11/17/20 Levothyroxine [Synthroid*] 88 mcg PO DAILY 11/17/20 Metoprolol Tartrate 25 mg PO BID 11/17/20 Omeprazole PO DAILY 11/17/20 Sennosides/Docusate Sodium [Colace 2-in-1 Tablet] PO DAILY 11/17/20 Sevelamer Carbonate 800 mg PO AC 11/17/20 hydrOXYzine HCL [Atarax*] 25 mg PO Q6H PRN 11/17/20 predniSONE [Deltasone*] 10 mg PO BID 7 Days #14 tab 11/19/20 New Medications: predniSONE [Deltasone*] 10 mg PO BID 7 Days #14 tab Physician Discharge Instructions: PROBLEM: Anemia, Shortness of breath GOAL: Clear understanding of disease process INSTRUCTIONS: Diet: Renal Activity: As tolerated You were found to have low hemoglobine (anemia) secondary to your ongoing hematuria. You were given 2units of blood with improvement. Your urine improved to a more tea-colored urine and not bright red. Your AV fistula clotted and you underwent dialysis catheter placement. *Follow up with dialysis center and vascular surgery as scheduled. You were covered with an antibiotic for possible infection, but urine and blood cultures were negative and you were afebrile. Pulmonology was consulted and recommended low dose steroid on discharge to help with your breathing. Otherwise, continue home medications as previously prescribed Diet: Renal Activity: Ad irina Followup: Mookie Nguyen MD [Primary Care Provider] - Time spent managing pt's care (in minutes): 35
--- NOTE | 2020-11-22 10:27 | CON ---
Date of Consultation: 11/18/2020 Reason For Consultation: Admitted on 11/17/[address] Sanchez with shortness of breath. I saw the mandeep yang on 11/18/2020. History Of Present Illness: Mr. Kelly is a 75-year-old male, who came in complaining of shortness of breath and hypoxia. He denied any chest pain. Denied any cough. Denied any syncope. Denied any fever or chills. Denied any chest pain, nausea, vomiting, diaphoresis, PND, orthopnea, pedal edema, palpitation. He is known to have polycystic kidney disease with renal failure, on dialysis Sunday, Sunday, and Sunday. He has anemia. He has hypothyroidism, chronic hypertension, and severe COPD. Allergies: NONE. Review of Systems: Negative. Social History: Negative. Family History: Negative. Medications: At home include inhalers, metoprolol, Lipitor, hydroxyzine, and levothyroxine. Physical Examination: Vital Signs: His blood pressure was 130/60. His pulse was 77. He was afebrile. He was in sinus [facility]. HEENT: Negative. Neck: Supple with no bruit. Chest: Clear to auscultation and percussion. Cardiac: Revealed a regular rhythm and rate. No murmurs, gallops, or rubs. Abdomen: Benign. Extremities: Revealed no clubbing, cyanosis, or edema. Diagnostic Data: Important for a thrombosed AV fistula. Creatinine was 12. Hemoglobin was 7.9. Hi s potassium was 5.7. His ferritin level was 1100. Procalcitonin was 1.9. Chest x-ray showed possib le pneumonia versus volume overload. EKG showed sinus rhythm, nonspecific changes, and PACs. Impression And Plan: Shortness of breath secondary to volume overload secondary to renal failure. N ephrology is involved. Dr. Burris had been consulted for the thrombosis of the AV fistula. I do no t think we are dealing with any cardiac issues here. I think he is cleared to undergo his AV fistula surgery. Continue dialysis. He has had a normal echocardiogram in the past and we will consider to do another one down the road. I will continue to follow him on an as-needed basis. NB/MODL Voice ID: [id number] Report ID: [id number]
== END 2020-11-19 17:54 | disposition home or self-care (01) | DRG 686 ==
LOC: ER 06:00 → ERHOLD 07:48 → 2ND 10:18
PROVIDERS: ADMIT Hospitalist; ATTEND Hospitalist
PROC: 30233N1 Transfusion of Nonautologous Red Blood Cells into Peripheral Vein, Percutaneous Approach (ICD-10-PCS; 2020-11-17)
PROC: 0JH63XZ Insertion of Tunneled Vascular Access Device into Chest Subcutaneous Tissue and Fascia, Percutaneous Approach (ICD-10-PCS; 2020-11-18)
PROC: 02HV33Z Insertion of Infusion Device into Superior Vena Cava, Percutaneous Approach (ICD-10-PCS; 2020-11-18)
PROC: B5181ZA Fluoroscopy of Superior Vena Cava using Low Osmolar Contrast, Guidance (ICD-10-PCS; 2020-11-18)
PROC: 5A1D70Z Performance of Urinary Filtration, Intermittent, Less than 6 Hours Per Day (ICD-10-PCS; principal; 2020-11-18 12:30)
DX: C67.9 Malignant neoplasm of bladder, unspecified (principal); J18.9 Pneumonia, unspecified organism; J96.01 Acute respiratory failure with hypoxia; N18.6 End stage renal disease; D62 Acute posthemorrhagic anemia; I12.0 Hypertensive chronic kidney disease with stage 5 chronic kidney disease or end stage renal disease; J44.0 Chronic obstructive pulmonary disease with (acute) lower respiratory infection; J44.1 Chronic obstructive pulmonary disease with (acute) exacerbation; Q61.3 Polycystic kidney, unspecified; E87.1 Hypo-osmolality and hyponatremia; C68.0 Malignant neoplasm of urethra; T82.510A Breakdown (mechanical) of surgically created arteriovenous fistula, initial encounter; N25.81 Secondary hyperparathyroidism of renal origin; R31.0 Gross hematuria; E87.70 Fluid overload, unspecified; E03.9 Hypothyroidism, unspecified; K21.9 Gastro-esophageal reflux disease without esophagitis; N40.0 Benign prostatic hyperplasia without lower urinary tract symptoms; I71.4 Abdominal aortic aneurysm, without rupture; E87.5 Hyperkalemia; D63.1 Anemia in chronic kidney disease; I25.10 Atherosclerotic heart disease of native coronary artery without angina pectoris; D72.829 Elevated white blood cell count, unspecified; K59.00 Constipation, unspecified; F17.200 Nicotine dependence, unspecified, uncomplicated; E78.5 Hyperlipidemia, unspecified; R77.8 Other specified abnormalities of plasma proteins; Z79.890 Hormone replacement therapy; Z79.899 Other long term (current) drug therapy; Z95.9 Presence of cardiac and vascular implant and graft, unspecified; Z79.52 Long term (current) use of systemic steroids; Z99.81 Dependence on supplemental oxygen; Z99.2 Dependence on renal dialysis; Z79.82 Long term (current) use of aspirin; Z20.822 Contact with and (suspected) exposure to COVID-19
CPT/HCPCS: 36415; 36430; 71045; 71250; 74176; 76000; 80048; 80053; 80069; 80076; 81003; 81015; 82607; 82668; 82728; 82746; 83540; 83735; 83880; 84145; 84466; 84484; 85025; 85044; 85610; 86140; 86705; 86706; 86803; 86850; 86900; 86901; 87040; 87086; 87088; 87340; 87389; 90935; 93005; 94640; 99205; 99285; J1644; J1940; J2250; J2704; J2920; J3010; J7040; J7050; J7605; P9016; Q5105; U0003

== ENCOUNTER 2021-01-01 10:29 | Emergency (ER) | payer OTHER ==
--- OUTSIDE RECORDS SUMMARY | 2021-01-01 10:36 | XMS REPORT | Continuity of Care Document ---
:1945 Author Organization [facility] t Address [address] [place] [address] Care Team Providers Name Role Phone Asked, [...] Attending Clinician Adenike Ocampo NP Attending Clinician MD Vishal KEEN Attending Clinician Unavailable Tonny Acevedo MD Attending Clinician TONNY ACEVEDO Attending Clinician Unavailable Katiana WOOD Attending Clinician Mariusz Caputo MD Attending Clinician ALYSSA FARRIS Admitting Clinician Unavailable KAYDEN Admitting Clinician Unavailable MD Vishal KEEN Admitting Clinician Unavailable TONNY ACEVEDO Admitting Clinician Unavailable Payers Payer Name Policy Type Policy Effective Date Expiration Date Sour ce Number MEDICAREMEDICARE A [id number] [facility] [id number] 2009 00:00:00 - M edical -PresentMedicare Center MCR [id number] [facility] SUPPLEMENT/INDIVIDUAL 00:00:00 - M edical [facility] [id number] 2016 -PresentMedigap MEDICAREMEDICARE PART [id number] 2010 Ho rosaura A AND 00:00:00 [facility] [id number] 2009 -[place], [place] LIFE AND [id number] 2020 [place] [facility] 00:00:00 Meth odist AND [id number]/2020-PresentCommercia l Problems Condition Condition Condition Status Onset Resolution Last Treating Co mments Source Name Details Category Date Date Treatment Clinician Date 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 - 00:00: Medical 00 [facility] Hematuria Hematuria Disease Active CHASITY Cadena 3-06 [facility] - 00:00: Medical 00 [facility] Altered Altered Disease Active CHASITY Cadena mental mental 3-05 Marybeth - status status 00:00: Medical 00 Center s/p L CEA s/p L CEA Disease Active CHASITY Cadena 02/11 ( 02/11 Ashley 02-11 Julio Acevedo) 00:00: Medica l 00 Center Pre-transp Pre-transp Disease Active Last [facility] lant lant 12-19 Assessharsh Rueda - evaluation evaluation 00:00: t & Plan: Medical for for 00 Due to Center chronic chronic his age, kidney kidney history disease disease of COPD, and AAA repair he is not an acceptabl e candidate for kidney transplan t. He understoo d and agreed with this decision. HTN HTN Disease Active Last [facility] (hypertens (hypertens 12-19 [facility] - ion) ion) 00:00: t & Plan: Medical 00 Continue Center managemen t with nephrolog y as prescribe d. Aortic Aortic Disease Active Last [facility] aneurysm aneurysm 12-19 Ass[facility]men [facility]pin es - 00:00: t & Plan: Medical 00 Repaired Center with a stent in 2012. Polycystic Polycystic Disease Active C [facility] kidney kidney 12-19 [facility] - 00:00: Medical Center COPD COPD Disease Active Last [facility] ([facility] obstructiv 00:00: t & Plan: Medical e e 00 Control Center pulmonary pulmonary d with disease) disease) inhalers. No history of smoking. Asthma Asthma Disease Active [facility] ESRD (end ESRD (end Disease Active [facility] stage stage [facility] renal renal Medical disease) disease) Center Dialysis Dialysis Disease Active [facility] S patient patient [facility] S/P S/P Disease Active [facility] carotid carotid [facility] endarterec endarterec [facility] Acute Acute Disease Active [facility] blood loss blood loss [facility] anemia anemia [facility] Hypovolemi Hypovolemi Disease Active C [facility] c shock c shock [facility] Vasogenic Vasogenic Disease Active [facility] shock shock [facility] Bradycardi Bradycardi Disease Active C HI [facility] a a [facility] Hypothyroi Hypothyroi Disease Active C [place] [facility] dism, dism, kes - unspecifie unspecifie Mt dical d type d type Center ESRD on ESRD on Disease Active [facility] hemodialys hemodialys [facility] Allergies, Adverse Reactions, Alerts This patient has no known allergies or adverse reactions. Family History Family Member Diagnosis Comments Start Date Stop Date Source Natural brother Cancer [facility] Natural daughter Polycystic kidney C HI [facility] Natural father Heart disease [facility] Natural father Heart failure [facility] Natural father Hypertension [facility] Natural mother Cancer [facility] Natural mother Hypertension [facility] Natural sister COPD [facility] Social History Social Habit Start Date Stop Date Quantity Comments Source History of tobacco Current smoker [facility] Sex Assigned At [facility] Tobacco use and 2020-12-07 2020-12-07 Never used [facility] - exposure 00:00:00 00:00:00 Medical Center Alcohol intake 2020-12-07 2020-12-[address] [facility] - 00:00:00 00:00:00 non-drinker of Medical Ce nter alcohol (finding) History SDOH 2020-07-29 2020-07-29 1 Luis Meth odist Alcohol Frequency 00:00:00 00:00:00 History SDOH 2020-07-29 2020-07-29 99 Smith Meth odist Alcohol Std Drinks 00:00:00 00:00:00 History SDOH 2020-07-29 2020-07-29 1 Smith Meth odist Alcohol Binge 00:00:00 00:00:00 Smoking Status Start Date Stop Date Source Former smoker 2020-12-07 00:00:00 2020-12-07 00:00:[address] [facility] Medications Ordered Filled Start Stop Current Ordering Indication Dosage Frequency Signature Comments Components Source Medication Medication Date Date Medication? Clinician (SIG) Name Name folic Yes 1{tbl} QD Take [address] acid-multiv 6-15 tablet by Crispin es - itamins 10:36: mouth Medical (NEPHRO-VIT 03 daily. Center E) 0.8 mg Tab tablet levothyroxi Yes 88ug Take [address] ne 6-15 mcg by Lukes - (SYNTHROID, 10:36: mouth Medic al LEVOTHROID) 03 Every Center 88 MCG morning on tablet an empty stomach. sevelamer Yes 800mg Take [address] (RENVELA) 6-15 mg by Lukes - 800 mg 10:36: mouth. Medical tablet 03 Center fluticasone Yes 2{puff} Q.5D Inhale [address] propion-burak 6-15 puffs by Luke s - meteroL 10:36: mouth via Medic al 113-14 03 inhaler 2 Center mcg/actuati (two) on AePB times daily. METOPROLOL Yes 25mg Take [address] TARTRATE 6-15 by mouth. [facility] - ORAL 10:36: Medical 03 Center furosemide Yes 20mg Q.5D Take [address] (LASIX) 20 6-15 by mouth 2 Crispin es - MG tablet 10:36: (two) Medical 03 times Center daily. hydrOXYzine Yes 25mg Take [address] (ATARAX) 25 6-15 by mouth 3 Yuliet kes - MG tablet 10:36: (three) Medic al 03 times Center daily as needed for Itching. aspirin 81 Yes 81mg QD Take [address] MG EC 6-15 by mouth [facility]ukes - tablet 10:36: daily. Medical 03 Center calcium Yes 1{tbl} Q.[id number] Take [address] carbonate 6-15 [id number] tablet by [facility]ukes - (calcium 10:36: 3D mouth 3 Medica l carbonate) 03 (three) Center 300 mg Chew times daily. diphenhydrA 2020- No 25mg Take [address] MINE 6-15 06-15 by mouth [facility]ukes - (BENADRYL) 10:32: 00:00 every Medic al 25 mg 21 :00 night as Center tablet needed for Sleep. albuterol 2020- No 1{puff} Inhale [address] HFA 6-15 06-15 puff by Lukes - (VENTOLIN 10:32: 00:00 mouth via Me dical HFA) 90 05 :00 inhaler Center mcg/actuati every 6 on inhaler (six) hours as needed for Wheezing. sulfamethox 2020- No 80mg{tr QD Take 1 [...] 00:00 mouth. Medica l capsule 29 :00 Center levoFLOXaci 2020- No 250mg QD Take [address] n 4-27 04-27 mg by Lukes - (LEVAQUIN) 16:01: 00:00 mouth Medic al 250 MG 25 :00 daily. Center tablet predniSONE 2020- No 20mg QD Take [address] (DELTASONE) 4-27 04-27 by mouth Crispin es - 20 MG 16:00: 00:00 daily. Medical tablet 39 :00 Center metoprolol 2020- No 50mg Q.5D Take [address] tartrate 09-13- by mouth 2 Luke s - (LOPRESSOR) 16:12: 00:00 (two) Medi rinku 50 MG 09 :00 times Center tablet daily. acetaminoph 2020- No 650mg Place [address] en 09-13 mg Lukes - (TYLENOL) 16:11: 00:00 rectally [...] for 30 days. oxybutynin 2020- No 5mg Q.[id number] Take [address] (DITROPAN) 09-02 [id number] tablet (5 Lukes - 5 MG tablet 00:00: 23:59 3D mg total) Medical 00 :00 by mouth 3 Center (three) times daily for 30 days. aspirin 81 2020- No 81mg QD Take [address] MG EC 09-0210 tablet (81 [facility]ukes - tablet 00:00: 23:59 mg total) Medic al 00 :00 by mouth Center daily for 30 days. levoFLOXaci 2020- No 250mg QD Take [address] n 09-02-16 tablet Lukes - (LEVAQUIN) 00:00: 23:59 (250 mg Med ical 250 MG 00 :00 total) by Center tablet mouth daily for 5 days. atorvastati Yes 40mg QD Take 40 mg Smith n (LIPITOR) 2-04 by mouth Meth cadence 40 mg 11:27: every st tablet 31 evening. folic Yes Take by Smith acid/vit B 2-04 mouth. Methodi complex and [...] 09:18: 00:[address] 02 :00 metoprolol 2020-2020- No 25mg Take 25 mg Smith tartrate - 02-04 by mouth Method i (LOPRESSOR) 06:06: 00:[address] 25 mg 31 :00 TAKES ONLY tablet WHEN BLOOD PRESSURE IS ELEVATED clopidogreL 2020-2020- No 75mg QD Take 1 [address]on (PLAVIX) 75 2- 03-06 tablet (75 M ethodi mg tablet 00:00: 23:59 mg total) st 00 :00 by mouth daily for 30 days. Please resume plavix 2 days after surgery polyethylen 2020-0 2020- No 17g QD Take 17 g Smith e glycol -09 25-06 by mouth Method i (MIRALAX) 00:00: [...] QD Take [address] (PLAVIX) 75 02-1211 tablet (75 L ukes - mg tablet 00:00: 00:00 mg total) Me dical 00 :00 by mouth Center daily. multivitami No 1{tbl} QD Take [address] n with 02-02 tablet by LuSolvoyo - minerals 10:30: 00:00 mouth Medical tablet [...] Time Observation Value Comments Source Systolic blood 2020-12-07 10:31:00 138 mm[Hg] [facility] Diastolic blood 2020-12-07 10:31:00 73 mm[Hg] [facility] S t [facility] Heart rate 2020-12-07 10:31:00 84 /min [facility] Body temperature 2020-12-07 10:31:00 36.39 Jailyn [facility] Body weight 2020-12-07 10:31:00 78.79 kg [facility] BMI 2020-12-07 10:31:00 27.21 kg/m2 [facility] Respiratory rate 2020-10-27 17:00:00 18 /min [facility] Oxygen saturation in 2020-10-27 17:00:00 98 /min [facility] - Arterial blood by Medical Ce nter Pulse oximetry Body height 2020-10-23 02:16:00 170.2 cm [facility] Systolic blood 2020-07-29 10:16:00 136 mm[Hg] [place] [facility] pressure Diastolic blood 2020-07-29 10:16:00 65 mm[Hg] [place] [facility] pressure Heart rate 2020-07-29 10:16:00 90 /min [facility] Body temperature 2020-07-29 10:16:00 37.17 Jailyn [place] [facility] Oxygen saturation in 2020-07-29 10:16:00 95 /min [place] [facility] Arterial blood by Pulse oximetry Respiratory rate 2020-07-29 10:15:00 12 /min [place] [facility] Body height 2020-07-29 05:29:00 177.8 cm [facility] Body weight 2020-07-29 05:29:00 82.3 kg [facility] BMI 2020-07-29 05:29:00 26.03 kg/m2 [facility] Procedures Procedure Date / Time Performing Clinician Source Performed URINE CULTURE, ROUTINE 2020-11-04 15:40:[address] [facility] UA/M W/RFLX CULTURE, 2020-11-04 15:40:00 Sebas Huang [facility] MICROSCOPIC EXAMINATION 2020-11-04 15:40:00 Sebas Huang E[facility] PREPARE LEUKO-REDUCED 2020-10-28 23:54:00 Jluis Parker [facility] RBC [facility] TRANSFUSE LEUKO-REDUCED 2020-10-27 11:34:[address] [facility] RED BLOOD CELLS [facility] HEMODIALYSIS INPATIENT 2020-10-27 07:47:37 KeithJluis [facility] BASIC METABOLIC PANEL 2020-10-27 04:39:[address] [facility] - (7) [facility] CBC W/PLT COUNT & AUTO 2020-10-27 04:39:00 Suzan Magdaleno [facility] DIFFERENTIAL [facility] BASIC METABOLIC PANEL 2020-10-26 03:41:00 Sebas Huang [facility] - (7) [facility] CBC W/PLT COUNT & AUTO 2020-10-26 03:41:00 Suzan Magdaleno [facility] Jenn camacho [facility] DIFFERENTIAL [facility] TISSUE EXAM 2020-10-25 18:39:00 [facility] CYSTOSCOPY,INSERTION 2020-10-25 17:37:[address] Se[address] - URETERAL STENTS [facility] POTASSIUM 2020-10-25 13:16:00 Cuauhtemoc [facility] HEPATITIS B SURFACE 2020-10-25 09:18:00 Fatouthe [facility] bethanyYannickkatie [facility] St L ukes ANTIBODY [facility] HEMODIALYSIS INPATIENT 2020-10-25 08:42:58 Tawny Tolarkatie [facility] S [facility] BASIC METABOLIC PANEL 2020-10-25 06:09:[address] [facility] (7) [facility] PHOSPHORUS 2020-10-25 06:09:00 Jean CarlosRobert [facility] CBC (HEMOGRAM ONLY) 2020-10-25 06:09:[address] [facility] L [facility] TYPE AND SCREEN, 2020-10-24 13:45:00 Sebas Huang [facility] St Yuliet kes - AUTOMATED [facility] HEPATITIS B SURFACE 2020-10-23 14:18:00 [facility], Manaf [facility] St L ukes - ANTIGEN [facility] HEMODIALYSIS INPATIENT 2020-10-23 11:41:00 D[facility]kat[facility] health mercy [facility] S t [facility] BASIC METABOLIC PANEL 2020-10-23 04:31:00 Rayshawn Otero [facility] - (7) Medical Center CBC W/PLT COUNT & AUTO 2020-10-23 04:31:00 Tawny OteroManuelmichelle GASPAR S t Marybeth - DIFFERENTIAL [facility] SARS-COV2/RT-PCR ([facility] & 2020-10-22 23:20:00 Sebas Huang [facility] - REF LABS) [facility] CT ABDOMEN/PELVIS WITH 2020-10-22 21:31:00 Rayshawn Otero [facility] - IV CONTRAST [facility] CBC W/PLT COUNT & AUTO 2020-10-22 21:12:00 Rayshawn Otero [facility] t Marybeth - DIFFERENTIAL [facility] URINE CULTURE 2020-10-22 11:48:00 Sebas Huang CHIk es - [facility] BASIC METABOLIC PANEL 2020-10-22 11:48:00 Sebas Huang CHI - (7) [facility] CBC W/PLT COUNT & AUTO 2020-10-22 11:48:00 Sebas Huang CHIkes - DIFFERENTIAL [facility] PT/APTT 2020-10-22 11:48:00 Sebas Huang CHIk - [facility] TYPE AND SCREEN, 2020-10-22 11:48:00 Sebas Huang CHI kes - AUTOMATED [facility] CT ABDOMEN/PELVIS WITH & 2020-09-21 13:12:00 Sebas Huang - WITHOUT IV CONTRAST [facility] er MR ABDOMEN WITHOUT IV 2020-09-02 11:20:00 Sebas Huang [facility] - CONTRAST [facility] MR PELVIS WITHOUT IV 2020-09-02 11:20:00 Sebas Huang [facility] - CONTRAST [facility] TISSUE EXAM 2020-08-31 12:53:00 Sebas Huang [facility] FL FLUORO NON-SPECIFIC 2020-08-31 12:50:00 Sebas Huang CHI - UP TO 1 HOUR [facility] CYSTOSCOPY,INSERTION 2020-08-31 11:42:00 Sebas Huang CHI - URETERAL STENTS [facility] CBC W/PLT COUNT & AUTO 2020-08-31 04:50:00 Grantalonastevan Arianna [facility] COMPREHENSIVE METABOLIC 2020-08-31 04:50:00 Pedro Farris I [facility] MAGNESIUM 2020-08-31 04:50:00 Pedro Farris [facility] NM MYOCARDIAL PERFUSION 2020-08-30 16:44:00 Sebas Huang CH I [facility] - SPECT, PHARM(LEXISCFRANK) [facility] C enter HEMODIALYSIS INPATIENT 2020-08-30 11:55:05 AngelinauJluis gramajo [facility] CBC W/PLT COUNT & AUTO 2020-08-30 05:14:00 Onalonastevan [facility] LIPID PANEL 2020-08-30 05:14:00 Ty, [facility] 2D ECHO W/ DOPPLER 2020-08-29 13:22:39 Ty, [facility] (CW/PW/COLOR) [facility] T4, FREE 2020-08-29 12:22:00 Ty, [facility] TSH 2020-08-29 12:22:00 Ty, [facility] FERRITIN 2020-08-29 12:22:00 Ty, [facility] VITAMIN B12 2020-08-29 12:22:00 Ty, [facility] PSA 2020-08-29 12:22:00 Ty, [facility] US RENAL COMPLETE 2020-08-29 11:15:00 Sebas Huang [facility] CT BRAIN WITHOUT IV 2020-08-29 05:02:00 Steve Welsh I [facility] CONTRAST [facility] TROPONIN I 2020-08-29 04:21:00 Owen Jhaveri [facility] BASIC METABOLIC PANEL 2020-08-29 04:21:00 Arianna Whitt Nkiru [facility] [address] CBC W/PLT COUNT & AUTO 2020-08-29 04:21:00 Arianna Whitt [facility] RETICULOCYTE COUNT 2020-08-29 04:21:00 Humberto Reed [facility] OCCULT BLOOD, STOOL 2020-08-29 02:52:00 Owen Jhaveri CH, I [facility] TROPONIN I 2020-08-28 16:08:00 Owen Jhaveri CH[facility] HEPATITIS B SURFACE 2020-08-28 16:06:00 Angelinauavila [facility] HEPATITIS B SURFACE 2020-08-28 15:26:00 [facility] HEMODIALYSIS INPATIENT 2020-08-28 11:36:37 [facility] TROPONIN I 2020-08-28 05:56:00 Owen Jhaveri [facility] CBC W/PLT COUNT & AUTO 2020-08-28 05:56:00 [facility]OL[facility] PANEL 2020-08-28 05:56:00 [facility] [address] ECG 12-LEAD 2020-08-28 01:21:18 Unknown, Hl7 Doctor [facility] HEMOGLOBIN A1C 2020-08-28 01:19:00 wOen Jhaveri [facility] URINE CULTURE 2020-08-28 01:05:00 Owen Jhaveri [facility] URINALYSIS W/ REFLEX 2020-08-28 01:05:00 Owen Jhaveri [facility] URINE CULTURE [facility] CBC W/PLT COUNT & AUTO 2020-08-28 01:05:00 Owen Jhaveri [facility] COMPREHENSIVE METABOLIC 2020-08-28 01:05:00 Janette Jhaveri [facility] MAGNESIUM 2020-08-28 01:05:00 Emilio Owen [facility] PHOSPHORUS 2020-08-28 01:05:00 Owen Jhaveri [facility] PROTHROMBIN TIME/INR 2020-08-28 01:05:00 Owen Jhaveri [facility] HEPATIC FUNCTION PANEL 2020-08-28 01:05:00 Owen Jhaveri [facility] LIPID PANEL 2020-08-28 01:05:00 Owen Jhaveri [facility] REPORT OF PROCEDURE - 2020-08-27 00:00:00 ProviderYoko [facility] OR AN ELECTIVE 2020-07-29 08:11:47 Rafael Blas Meth odist ENDOTRACHEAL AIRWAY THROMBECTOMY, GRAFT, AV 2020-07-29 07:39:00 Jose Keen POTASSIUM, SYRINGE 2020-07-29 07:00:00 Jose Keen [facility] POTASSIUM, SYRINGE 2020-07-29 06:11:00 Jose Keen HEMOGLOBIN, SYRINGE 2020-07-29 06:11:00 Jose Keen [facility] GLUCOSE LEVEL, SYRINGE 2020-07-29 06:11:00 Jose Keen ECG PRE/POST OP 2020-07-27 15:26:54 Rose Garcia [facility] HEMOGLOBIN A1C 2020-07-27 15:19:00 Rose Garcia [facility] HEMOGLOBIN 2020-07-27 15:19:00 Jose Keen ethodist POTASSIUM LEVEL 2020-07-27 15:19:00 Jose Keen ethodist GLUCOSE LEVEL 2020-07-27 15:19:00 Jose Keen ethodist COVID-19 QUALITATIVE 2020-07-27 14:57:00 Joes Keen RT-PCR RHYTHM STRIP - SCAN 2020-02-19 12:30:59 Provider, Default [facility] RHYTHM STRIP - SCAN 2020-02-17 14:22:17 Provider, Default [facility] TRANSFUSION SERVICE 2020-02-13 18:04:02 Provider, Default [facility] REPORT [facility] HEMODIALYSIS INPATIENT 2020-02-13 13:28:00 Dong Bryson [facility] HEPATITIS B SURFACE 2020-02-13 13:05:00 Dong Bryson [facility] POCT-GLUCOSE METER 2020-02-13 12:52:00 Kristina, [facility] POCT-GLUCOSE METER 2020-02-13 05:48:00 Kristina [facility] CBC (HEMOGRAM ONLY) 2020-02-13 02:53:00 [facility] MET[facility]OLIC PANEL 2020-02-13 02:53:00 Tanika Garza [facility] () [facility] MAGNESIUM 2020-02-13 02:53:00 Rodolfo Haji [facility] CORTISOL 2020-02-13 02:53:00 Rodolfo Haji [facility] POCT-GLUCOSE METER 2020-02-13 00:21:00 Bin Acevedo [facility] TSH/FREE T4 IF INDICATED 2020-02-12 23:19:00 Rodolfo Haji [facility] COMPREHENSIVE METABOLIC 2020-02-12 17:46:00 Rodolfo Haji [facility] MAGNESIUM 2020-02-12 17:46:00 Rodolfo Haji [facility] CBC (HEMOGRAM ONLY) 2020-02-12 17:31:00 Rodolfo Haji I [facility] PT/APTT 2020-02-12 17:31:00 Rodolfo Haji [facility] CALCIUM, IONIZED 2020-02-12 17:31:00 Rodolfo Haji [facility] BLOOD GAS, ARTERIAL 2020-02-12 17:31:00 Rodolfo Haji I [facility] RRL CRITICAL LABS 2020-02-12 10:34:53 [facility] (ABG,NA,K,H&H,GLUCOSE) [facility] enter SODIUM NA-STAT LAB 2020-02-12 10:34:53 [facility] POTASSIUM-STAT LAB 2020-02-12 10:34:53 [facility] GLUCOSE-STAT LAB 2020-02-12 10:34:53 [facility] HGB/HCT (H&H) - STAT LAB 2020-02-12 10:34:53 [facility] TISSUE EXAM 2020-02-12 09:33:00 Kristina, [facility] POCT-ACT 2020-02-12 09:12:00 Kristina [facility] ENDARTERECTOMY,CAROTID 2020-02-12 07:49:00 Kristina [facility] POTASSIUM-STAT LAB 2020-02-12 06:33:00 Bin Acevedo [facility] HGB/HCT (H&H) - STAT LAB 2020-02-12 06:33:00 Bin Acevedo [facility] GLUCOSE-STAT LAB 2020-02-12 06:33:00 Bin Acevedo [facility] CBC W/PLT COUNT & AUTO 2020-02-12 06:33:00 Kristina [facility] DIFFERENTIAL [facility] BASIC METABOLIC PANEL 2020-02-12 06:33:00 Bin Acevedo [facility] - (7) [facility] TYPE AND SCREEN, 2020-02-12 06:33:00 Bin Acevedo [facility] - AUTOMATED [facility] SARS-COV2/RT-PCR ([facility] & 2020-02-12 05:57:00 Tanika Garza I [facility] - REF LABS) [facility] POCT-GLUCOSE METER 2020-02-12 05:38:[address] [facility] - [facility] TRANSFUSION SERVICE 2020-02-04 18:05:56 Provider, Default [facility] Liu - REPORT - SCAN [facility] TYPE AND SCREEN, 2020-02-03 10:48:[address] [facility] - AUTOMATED Medical Center ECG 12-LEAD 2020-02-03 10:36:29 Tanika Garza [facility] [place] [facility] Plan of Care Planned Activity Planned Date Details Comments Source Future Scheduled 2021-08-[address] [facility] - Test 00:00:00 malignant neoplasm of [facility] colon (procedure) [code = 350448830] Future Scheduled 2021-02-23 INFLUENZA VACCINE (#1) [facility] Test 00:00:00 [code = INFLUENZA Medical Ce nter VACCINE (#1)] Future Scheduled 2021-01-23 INFLUENZA VACCINE [place] [facility] Test 00:00:00 [code = INFLUENZA VACCINE] Future Scheduled 2020-09-07 COVID-19 VACCINE (2 - [place] [facility] Test 00:00:00 Pfizer 2-dose series) [code = COVID-19 VACCINE (2 - Pfizer 2-dose series)] Future Scheduled 2011-05-[address] [facility] - Test 00:00:00 WELLNESS (YEAR 2 or Medical Center FIRST YEAR if no IPPE) [code = MEDICARE ANNUAL WELLNESS (YEAR 2 or FIRST YEAR if no IPPE)] Future Scheduled 2010 PNEUMOCOCCAL 65+ Y[facility] - Test 00:00:00 (1 of 1 - Medical [facility] [id number]_Iezzbws PCV13) [code = PNEUMOCOCCAL 65+ YRS (1 of 1 - HISK03_Fpaoaql PCV13)] Future Scheduled 1995 COLONOSCOPY SCREENING [facility] 00:00:00 [code = COLONOSCOPY SCREENING] Future Scheduled 1995 SHINGLES VACCINES (#1) [facility] 00:00:00 [code = SHINGLES VACCINES (#1)] Future Scheduled 1995 SHINGLES VACCINES ([address] [facility] 00:00:00 of 2) [code = SHINGLES Medic al Center VACCINES (1 of 2)] Future Scheduled 1964 DTAP/TDAP/TD VACCINES [facility] 00:[facility]:00 (1 - Tdap) [code = Medical C enter DTAP/TDAP/TD VACCINES (1 - Tdap)] Future Scheduled 1963 Hepatitis C screening [facility] 00:00:00 (procedure) [code = 326341435] Future Scheduled 1963 HEPATITIS C SCREENING [facility] 00[facility] [code = HEPATITIS C [facility] SCREENING] Encounters Start End Encounter Admission Attending Care Care Encounter Source Date/Time Date/Time Type Type Clinicians Facility Department ID 2020-08-26 2020-08-26 Outpatient [facility] 2099 [id number] [place] 00:00:00 00:00:00 JOSE 942 Method i 2020-07-29 2020-07-29 Outpatient [place] [id number] 2099 [id number] [place] 00:00:00 00:00:00 JOSE 077 Method i 2020-07-27 2020-07-27 Outpatient [facility] 2099 [id number] [place] 00:00:00 00:00:00 JOSE 280 Method i 2020-07-22 2020-07-22 Outpatient [facility] 2099 [id number] [place] 00:00:00 00:00:00 JOSE [address] Results Test Description Test Time Test Comments Results Result Comments Source UA/M W/RFLX CULTURE, ROUT 2020-11-05 22:06:00 Test Item Value Reference Range Interpretation Comme nts Specific [place], UA (test 1.014 1.005-1.03 code = 2965-2) pH, UA (test code = 5803-2) >=9.0 5.0-7.5 A Color, UA (test code = [place] Yellow 9796-4) Appearance (test code = Cloudy Clear A ) WBC Esterase (test code = 1+ Negative A 20110322) Protein, UA (test code = 3+ Negative/T A 55635-4) Glucose, Urine (test code = Trace Negative A 03720-0) Ketones, UA (test code = Negative Negative 1194-8) Blood, UA (test code = 3+ Negative A 93103-7) Bilirubin, UA (test code = Negative Negative 5770-3) Urobilinogen,Semi-Qn (test 0.2 mg/dL 0.2-1 code = 4880678) Nitrite, UA (test code = Negative Negative 71016-1) Microscopic Examination See below: Micr oscopic was (test code = 9607835) indica radha and was performed. Urinalysis Reflex (test Comment This specimen has code = 4484773) reflexed to a Urine Culture. ТАТЬЯНА (test code = ТАТЬЯНА) Performed at: [address] [place] [address] [id number] Director: Calderon Silver MD, Phone: [phone] Lab Interpretation (test Abnormal code = 73377-8) [facility] [id number] 22:06:00 Test Item Value Reference Range Interpretation Comments Urine Culture, Final report Routine (test code = 9632422) Result 1 (test code = No growth ) ТАТЬЯНА (test code = ТАТЬЯНА) Performed at: [address] [place] [address] [id number] Director: Calderon Silver MD, Phone: [phone] [facility] [id number] 22:06:00 Test Item Value Reference Range Interpretation [...] ТАТЬЯНА (test code = ТАТЬЯНА) Performed at: [address] [place] [address] [id number] Director: Calderon Silver MD, Phone: [phone] Lab Interpretation Abnormal (test code = 32160-6) [facility] Leuko-Red [id number] 23:54:00 Test Item Value Reference Range Interpretation Comments CROSSMATCH (test code = 2264) COMPATIBLE Unit ABO (test code = O Pos 5210144) UNIT NUMBER (test code = [id number] 934-0) Status (test code = 9004547) TX_TIMEINCHART Blood Bank Product (test code RED BLOOD CELLS = 2263) PRODUCT CODE (test code = N0118X17 933-2) [facility] [id number] 10:04:00 Test Item Value Reference Range Interpretation Comments Case Report (test code Surgical Pathology = 104) Report Case: [id number] Authorizing Provider: Sebas Huang, Collected: 10/25/2020 06:39 PM Ordering Location: [address] Med/Surg Received: 10/26/2020 07:45 AM Pathologist: Ariana Victor MD Specimens: A) - Bladder Tumor, Bladder clots and right ureteral tumor B) - Bladder Biopsy, Left Wall, left bladder wall C) - Bladder Biopsy, Wall, posterior bladder wall DIAGNOSIS (test code = p0tsoAOkVJIzl5rvLFKwzH 3220) FuZzEwMzNcZnRuYmpcdWMx IHtccnRmMVxlcGljOTIwMl fpopYeZOZidTIqG7Jvnigr YKceYM0xNC0snErqlKXdjU DbGLKzPvDbe8drh638bVRa q7xhVPPCflnwlSf4kUiwJ5 2oq9S8CuahL49boRIwBSbw bGFpblxmczIwIEEuIEJMQU RIAVYlK8cVXFQzJO1TMGLC A6kLIDJHFLKRTaVYDQVROF 6NTAYXGK0YP0j9XANtykPi KLMsDFkDG1ttE3ASIKVlWK ITQSqHFHqAMYHEGGWXGO0J MNFvWV8kDTMPFHLKL5WJSL 2UHS0NKZyWXB9BJmsDA4So UY6IC7ITQ8zNCOVEYHAASp FOVUxBVElPTiBUSVNTVUUg Av6GBMEHWI9FGQJulyVlSF SvZQFSVI9JFBvZYzLYHNIv CR4TZkBAKNHJAWJEZUAQJE 1JTkEgUFJPUFJJQVxwYXIg ICAgLSBOTyBERUZJTklUSV KELR2DF1OYXNCDFRTdHECR LFLWBTWONkJIFbDOYM8EJV WLUuASIuYWDIPRAF9VPZNl fvjdYKRdIs2iXNIKCVEXEB HEQGJIRZrMRGdwUSKBG8BS NFcocZLaPJGjKP8tUEIVJP lXUReSIWSTNSQAD8OcYB3I K1AJQACHNLMOWcTOYEzAB1 6DScTWKAVsmvLxNFUwMV9L KA4WK7IGKDFKNEZcHGMUYS WDCAJANeZRZwCZZF5BFIBR PkLMVkOUJZJZKM4ZGIIwrA CcDRUnwaVXEtPJQ7LWQHEI G6HaBkfUZBKJQiRYKZtJNA YXDI6NF1a2RAZkjdJaOOJw USAZR3QFVQeNQRqbATEQQ5 GEKVPVVXiVHMcVYSNEH8Lh RSUOUCwHJL2UIXNdeYEgAH SmKR6hYDIRZ4HLBZJASbOW Xj6VNipQHZrDRQZIRXFLNc IxcPOrSOVcgkXMSq6btOul UWF0s2pmbILnSQPgkZLsPQ AwMFxhbnNpXGRlZmxhbmcx REUnYON7bmFlVJDwPJdfVL DaQLiyDb8xkBStlBjvEhLc VGHib5wkpvCDbgcxkNt5l3 wqARXxIcP9jSKgKNfjJ2kz seDsdHTpGEDfVNe4lP10TD RyjH2eeGZcIQczfqTrCyK6 FUheUBDpYpB7STFplOXhHV XwI5uaJOWdBOhpAVCjWGtq fGIyTJO3iXfmn5G7aFVmxX EsyLcdRsJvNqYzCjUMb9Tu OTt0oPrcE4ImMXTjCeH8gI QgUGFyYWdyYXBoIEZvbnQ7 sB10CPkfgfN2kASbd0Rkp7 1ob761cC4frHJnKUU1ZVZt NEYovRNgDSSwBIZ1SFTibG MeW7whDZIlXO8izkpaDSyv CPpjOOIuaBG4HMHncYFeV9 AwCHVwYMlqZGWnsrr7TsZx Aa7mnZJqnSyxHJlpp0knx0 ekzVMoLfs8IDHxKtKyXcks NWflj5Tue9xxHQIssr7qNZ U7sVWzbDflc2M4wRZyZOLu tEWaTYByIP7vwBFzSLJhvD 5ucmxjXHBnYnJkcmhlYWRc pHyfhgSwYv2lpRehUZC3OX svS6bpzW6xNjY3ODbfO7vm qZ7dIUi2FFsyHCOpoKJ0nq B1LNLbdVFaV9JpaL5pCVRe OC6dztw7q9ccYDW5BDohXH IuHuT0dzB6BHDxdFKkKGVa tGooPHhui989FDO5FnStOR Wow8LkJ7GltHyhO44wkBpa A81mFXTsjNbfmR1maUlloL 1eOmNdRkAlVFqdyVqwTN2x CPUvQ0uehAZiIVCdJMHqT5 lwKxVifK8aqSwaHYkqwkCj GIEtKjs4DRPwlQVoUVPpCv m1MRFuWLFpI37ruamcMNF6 kU2zw6wmf0PmRFcoCAM6HW Rue88vXQsofbX2JFaaCi36 SSzxSpS6HBjdFMG4gU== CPT Code(s) (test code i2rkbBKqZGMhkQL7RlRvEB = 3357) Pth3jgv8LsjGIcsUTjIBtz mGYavsKtsz63rOC0kL73RH 3bORMlJnE6KGUkulY6Jos8 PUOsWVYsnQCvB751v7kfu4 jjgmQdyCH7mWnhTZZcZURo YWluXGZzMjAgODgzMDUgeD NccGFyfQ== CLINICAL HISTORY (test y2hcrLEvLNQlnSU1AoZpDC code = 3356) Knb1jfq8QsgLGarYTaIKef rJWtouPgaq69nKF4lJ99PM 9cEFZhAuP4BYLewrD5Wxi4 VLLfQJQebQXjZ143k9tzf9 piaxHsbNO5cFjsZLIsSXOz GXilTZGbXeRvMXBfDXT0me yrBMQbn9XpM0jjkWLfNSZ3 oCLnIETsNKElbwUaNLL1kH 6lTKXrgl9= SPECIMEN SOURCE (test x5tojJYtIDLjhPP3AcQqBF code = 3377) Qsc6nyi7ShhVDebVVfQXdq eYYcprJrph80fMR3pT86RL 1vGGFhLlF7UIDfhtH1Cxi7 EZZhGUDviJNdX338h1zxw9 jvugQruQZ2oYofTCOqJIIi EKhqFNToCjZcAA3fViyyLI UrmsXwqM21glZiqxNejvdx aHQgdXJldGVyYWwgdHVtb3 I4ALHcUJrqJbWeSwdcPAQj flU7SJqoMdQOArGFi3T1OM Oge5MsUfarHWCyvfQ5FUdq XHBhcn0= GROSS DESCRIPTION (test e1tnhFDqTXDhgFM5RkAqBU code = 3366) Gwv0qdg6ZhwBGkkSPrGRge lDProhOcra78pXK6nS70EL 4qRQBgCdY8XCKxfiB9Eoc4 YIZqPUHryPDjZ521w3ogw8 hhbzOvoSU1lOszTNBfWSDr MGgnBMHeTtEvU3NpN9qaYT 4gQSBpcyByZWNlaXZlZCBp raCirQttjXl3LHBpzzMogL EdGVknHCS2yOOoIBXxMZHj SREgVB48F9JquhPdRRzdxW VkaWNhbCByZWNvcmQgbnVt FhKtBWUxBNPmAWIvG76adY VkIGFzICJibGFkZGVyIHR1 nL6oAcKfksAvX47pn1kxxD Czt7YvwXVvtKngsEMfhhKd VJLcz1woNTIcs0F2CBDljr CozPXqlHJjcGFdu1AkcJ2u CGulYHV7DMMdGUF4NJAvCW BgaH5mZZgsWLTvJGJpoVXd HZkmBYLseQQrs4BmYIXcBK TiuVtzBN54zWogk3QdZnlx m7RgA5rgaF3wXu9qEBfbkA hko1OoXFDhFUitUB85ugJr cmUgaWRlbnRpZmllZCBtZW IkjNOczgoqHJ45UXfoQM0a ZHsoVB64BUZwFHvtIGKiY8 NpH9L4CE3lUOsxTGKjm1G0 ZSBmcmFnbWVudHMgYXJlIG UsoEehIBa5CMZ2Sv5ooAUu ZCBpbnRvIEExIHRvIEEyIG FuZCByZXByZXNlbnRhdGl2 UDQdRDK9pW7qzmVbSkR9uM ItYjncn3OpL3emdXTlqpEt n3GquZk5sHXvYKaniE0nMX MuICBccGFyXHBhciBTcGVj iS1kubMFMAuaPKNhB5Pkhd LnYDllILNlcLV7bHRpTOAi ZCBsYWJlbGVkIHdpdGggdG laFYXinQqgmpQnlnQzRX5l NBRbQOXlE9JyLOIjE67mLS LhhI7dJMNqKI5kTUMnk9kc tmM0YFFeYSFxLiCcGYOvOP RiCslpiMY7CKioYjAka3Ep bSWoBS7pRARkfiOfh0JxTL 7tRPIffGstqh20RY8zjKqo v6DpTTDyQSneAR21pgZ5gL J5BXxpUUDcZLWukIRyueVv lsVznUGtsPIepU9thxIkt0 2gYMAsXFX6nPMicTLnVtOr V63egwTqtLCnFA20kHEyyF eme1HboYd5hBXhEWjwnU7k QjEuIFxwYXJccGFyIFNwZW NpbWVuIEMgaXMgcmVjZWl2 BHDqaT0aYjg0GHCtzdWcBR 7hQPssScKeVSDxw7f2zEG1 oNBowAA3vWEkqIssSE9cbF XkNO2pCDhgXAxoyyRqt1Ou QS69vGMsgvYtbgXpAPKrrN duYXRlZCBhcyAiYmxhZGRl bnIaxU3ye2bpi1VgwAJvVI 8jAEEotiQwo7FeMP9eMZYt vEojew19KL1niJmuk4PoKN PsRXlpHQ28OVPsQYBaaSQe UQ26HBPuERhpFWjdYKH8OR T1FSGspMIwt2hgvv0eUBcy EGUre6C8ITPfuoUnqSIvcS BpcyBlbnRpcmVseSBzdWJt uNA0XJKwvA56tzFRDY9zTA XQIk6jqPSdfYBrbY== MICROSCOPIC DESCRIPTION y0thhFFoMBAgaCJ5BjZySK (test code = 3371) Unr7chh0KrjMYfhNFnJUex oNZaxgIlvw56kYR3nF96XR 1nVQAgYgK5SYOvwaL8Oxz5 OSLtRFMekTEdH261z3qxu3 ehtyNarMT6hAonNMLiREOf DWsaYNYsMkCvBH8XNuYUTR Djr1KcVOOlKVMvpf7= Gross assessment was [facility] performed at ([facility], Department = 2777) of Pathology, [address] [place] [address], Technical component was [facility] performed at ([facility], = 8688) Department of Pathology, [address] [place] [address], Professional component [facility] was performed at ([facility], Department code = 2771) of Pathology, [address] [place] [address], [facility] [id number] 10:04:00Surgical Pathology Report Case: [id number] Authorizing Provider: Sebas Huang, Collected: 10/25/2020 06:39 PM [facility]ingLocation: [facility] 04A Med/Surg Received: 10/26/2020 07:45 AM Pathologist: [...] IS PRESENTMG/pl Signing Pathologist Direct Phone Line: [phone] signed by Ariana Vitcor MD on 10/27/2020 at 10:04 [id number] unspecified type, ureteral tumorA. Bladder clots and [...] entirely submitted into A1 to A2 and hvac sales representative sections of the blood clot are [...] entirely submitted into C1. MG/pl A-C: Performed [facility], Department of Pathology, [address] [place] [address], Vitcof [facility], Department of Pathology, [address] [place] [address], [facility], [address] [place] [address], Mjhcn Metabolic [id number] 05:29:00 Test Item Value Reference Range Interpretation Comments Sodium (test code = 139 meq/L 113-222 2753-2) Potassium (test code = 5.1 meq/L 3.6-5.5 2823-3) Chloride (test code = 102 meq/L 98-106 2075-0) CO2 (test code = 26 meq/L 20-29 8-9) BUN (test code = 32 mg/dL 10-26 H 3094-0) Creatinine (test code 9.44 mg/dL 0.5-1.2 H = 2160-0) Glucose (test code = 107 mg/dL 70-110 2345-7) Calcium (test code = 8.8 mg/dL 8.5-10.5 72021-4) EGFR (test code = 5 mL/min/1.73 [place] [address]-1) NOT ACCURATE CREATININE CLEARANCE IN PREDICTING GLOMERULAR FILTRATION RATE . ESTIMATED GFR I S NOT APPLICABLE FOR DIALYSIS PATIENTS. ТАТЬЯНА (test code = ТАТЬЯНА) Heavy Duty Diesel Mechanic ID - [id number] ID - [id number] ID - [id number] ID - ghdq78Paeqszno ID - potk62Zztkequd ID - blwo24Hpirtgap ID - [id number] ID - gxvc49Urpbqjcn ID - bxcp26Uafvdsge ID - bfbp11Oyzydhga ID - togq44Xqweuezt ID - fnkd58Djrjpnlo ID - [id number] Lab Interpretation Abnormal (test code = 22935-9) [facility] METABOLIC [id number] 05:29:00 Test Item Value Reference Range Interpretation Comments SODIUM (BEAKER) 139 meq/L 135-148 (test code = 381) POTASSIUM (BEAKER) 5.1 meq/L 3.6-5.5 (test code = 379) CHLORIDE (BEAKER) 102 meq/L 98-106 (test code = 382) CO2 (BEAKER) (test 26 meq/L 20-29 code = 355) BLOOD UREA NITROGEN 32 mg/dL 10-26 H (BEAKER) (test code = 354) CREATININE (BEAKER) 9.44 mg/dL 0.50-1.20 H (test code = 358) GLUCOSE RANDOM 107 mg/dL 70-110 (BEAKER) (test code = 652) CALCIUM (BEAKER) 8.8 mg/dL 8.5-10.5 (test code = 697) EGFR (BEAKER) (test 5 mL/min/1.73 ESTIMAT ED GFR IS code = 1092) sq m NOT ACCURATE CREATININE CLEARANCE IN PREDICTING GLOMERULAR FILTRATION RATE . ESTIMATED GFR I S 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 - [id number] ID - byaf04Yrmhynhu ID - aiyf66Prlcqygc ID - uiyh97Bivrewzs ID - hhej40Qfxniozl ID - kxuz55Dlaafjdw ID - pqye47Exbunoas ID - claq39Aboptgiq ID - fyvu31Awnunjvd ID - yndm85Fqqfdlyh ID - mjje77Cgaaqobn ID - owlk52Ywexuwql ID - [id number] with platelet count + automated [id number] 05:09:00 Test Item Value Reference Range Interpretation Comments WBC (test code = 6690-2) 7.6 See_Comment [A utomated message] The system Int[employer] generated this result transmitted ref erence range: 4.0 - 10 .0 K/L. The refe rence range was not u sed to interpret this result as normal/abnor mal. RBC (test code = 789-8) 2.28 See_Comment L [Au tomated message] The system [employer] generated this result transmitted ref erence range: 4.20 - 5 .80 M/L. The refe rence range was not u sed to interpret this result as normal/abnor mal. MCHC (test code = 786-4) 31.3 See_Comment L [A utomated message] The system [employer] generated this result transmitted ref erence range: [...] code = 284 See_Comment [Aut omated message] 777-3) The system [employer] generated this result transmitted ref erence range: 150 - 43 0 K/CU MM. The referen ce range was not u sed to interpret this result as normal/abnor mal. MPV (test code = 9.6 fL 6-11.5 73012-1) nRBC (test code = 413) 0 See_Comment [Aut omated message] The system [employer] generated this result transmitted ref erence range: [...] See_Comment [Aut omated message] 670) The system [employer] generated this result transmitted ref erence range: 1.80 - 8 .00 K/L. The refe rence range was not u sed to interpret this result as normal/abnor mal. # Lymphs (test code = 1.26 See_Comment L [Auto mated message] 414) The system [employer] generated this result transmitted ref erence range: 1.48 - 4 .50 K/L. The refe rence range was not u sed to interpret this result as normal/abnor mal. # Monos (test code = 0.84 See_Comment [Autom ated message] 415) The system [employer] generated this result transmitted ref erence range: 0.00 - 1 .30 K/L. The refe rence range was not u sed to interpret this result as normal/abnor mal. # Eos (test code = 416) 0.25 See_Comment [Au tomated message] The system [employer] generated this result transmitted ref erence range: 0.00 - 0 .50 K/L. The refe rence range was not u sed to interpret this result as normal/abnor mal. # Baso (test code = 417) 0.03 See_Comment [A utomated message] The system [employer] generated this result transmitted ref erence range: 0.00 - 0 .20 K/L. The refe rence range was not u sed to interpret this result as normal/abnor mal. Immature 1 % 0-0 H Granulocytes-Relative (test code = 2801) Lab Interpretation (test Abnormal code = 18507-0) [facility] W/PLT COUNT & AUTO [id number] 05:09:00 Test Item Value Reference Range Interpretation [...] (BEAKER) (test code = 2801) BASIC METABOLIC [id number] 05:21:00 Test Item Value Reference Range Interpretation [...] S 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 - LITOOperator ID - LITOOperator ID - LITOOperator ID - LITOOperator ID - LITOOperator ID - LITOOperator ID - LITOOperator ID - LITOOperator ID - LITOOperator ID - LITOOperator ID - LITOOperator ID - LITOOperator ID - LITOCBC W/PLT COUNT & AUTO [id number] 04:38:00 Test Item Value Reference Range Interpretation [...] (test code = 2801) Hepatitis B surface mklxnduq9655-10-31 17:58:00 Test Item Value Reference Range Interpretation Comments Hep B S Ab (test code <8.0 See_Comment [Auto mated = 23859-8) message] The system which generated this result transmit radha reference range : <8.0 mIU/mL. e reference range was not used to interpret this result as normal/abnormal . ТАТЬЯНА (test code = ТАТЬЯНА) Heavy Duty Diesel Mechanic ID - DB Lab Interpretation Normal (test code = 79917-0) [facility] [id number] 17:58:00 Test Item Value Reference Range Interpretation Comments HEPATITIS B SURFACE ANTIBODY < mIU/mL <8.0 (BEAKER) (test code = 647) Heavy Duty Diesel Mechanic ID - EDKckpgrdvf4741-05-99 13:35:00 Test Item Value Reference Range Interpretation Comments Potassium (test code = 4.2 meq/L 3.6-5.5 2823-3) ТАТЬЯНА (test code = ТАТЬЯНА) Heavy Duty Diesel Mechanic ID - [id number] ID - uooz62Dwndisip ID - tqvj78Spztqekm ID - zdxs12 Lab Interpretation (test Normal code = 83149-6) [facility] 13:35:00 Test Item Value Reference Range Interpretation Comments POTASSIUM (BEAKER) (test code = 4.2 meq/L 3.6-5.5 379) Heavy Duty Diesel Mechanic ID - [id number] ID - jdwv04Jbosmdbo ID - ohln18Wbunriek ID - [id number] BASIC METABOLIC [id number] 06:45:00 Test Item Value Reference Range Interpretation [...] S 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 - MITCHOperator ID - MITCHOperator ID - MITCHOperator ID - MITCHOperator ID - MITCHOperator ID - MITCHOperator ID - MITCHOperator ID - MITCHOperator ID - MITCHOperator ID - BKUSJIeudmikpix8420-50-30 06:44:00 Test Item Value Reference Range Interpretation Comments Phosphorus (test code = 5.9 mg/dL 2.5-4.5 H 2777-1) ТАТЬЯНА (test code = ТАТЬЯНА) Heavy Duty Diesel Mechanic ID - MITCHOperator ID - MITCHOperator ID - MITCHOperator ID - STEVE Lab Interpretation Abnormal (test code = 02807-9) [facility] 06:44:00 Test Item Value Reference Range Interpretation Comments PHOSPHORUS (BEAKER) (test code = 5.9 mg/dL 2.5-4.5 H 604) Heavy Duty Diesel Mechanic ID - MITCHOperator ID - MITCHOperator ID - MITCHOperator ID - MITCHCBC (Hemogram only)2020-10-25 06:33:00 Test Item Value Reference Range Interpretation Comments WBC (test code = 6690-2) 10.6 See_Comment H [A utomated message] The system [employer] generated this result transmitted ref erence range: 4.0 - 10 .0 K/L. The refe rence range was not u sed to interpret this result as normal/abnor mal. RBC (test code = 789-8) 2.39 See_Comment L [Au tomated message] The system [employer] generated this result transmitted ref erence range: 4.20 - 5 .80 M/L. The refe rence range was not u sed to interpret this result as normal/abnor mal. MCHC (test code = 786-4) 31.0 See_Comment L [A utomated message] The system [employer] generated this result transmitted ref erence range: [...] See_Comment [Aut omated message] 777-3) The system [employer] generated this result transmitted ref erence range: 150 - 43 0 K/CU MM. The referen ce range was not u sed to interpret this result as normal/abnor mal. MPV (test code = 9.8 fL 6-11.5 08282-6) nRBC (test code = 413) 0 See_Comment [Aut omated message] The system [employer] generated this result transmitted ref erence range: 0 - 0 /1 00 WBC. The refere nce range was not u sed to interpret this result as normal/abnor mal. Lab Interpretation (test Abnormal code = 11970-9) [facility] (HEMOGRAM ONLY)2020-10-25 06:33:00 Test Item Value Reference [...] (test code = 413) Type and screen, [id number] 14:42:00 Test Item Value Reference Range Interpretation Comments ABO/RH AUTOMATED (BEAKER) (test O POSITIVE code = 2260) Ab Scrn (test code = 890-4) NEGATIVE [facility] [id number] 08:07:00 Test Item Value Reference Interpretation Comments [...] 13) >100,000 col/mL skin floraHepatitis B surface [id number] 15:09:00 Test Item Value Reference Range Interpretation Comments HBsAg Screen (test code Nonreactive Nonreactive = 5195-3) ТАТЬЯНА (test code = ТАТЬЯНА) [employer] Duty [employer]el Mechanic ID - [id number] Lab Interpretation (test Normal code = 08697-8) [facility] SURFACE [id number] 15:09:00 Test Item Value Reference Range Interpretation Comments HEPATITIS B SURFACE ANTIGEN (2) Nonreactive Nonreactive (BEAKER) (test code = 2585) Heavy Duty Diesel Mechanic ID - [id number] METABOLIC [id number] 05:03:00 Test Item Value Reference Range Interpretation [...] S 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 - [id number] ID - [id number] ID - [id number] ID - [id number] ID - [id number] ID - [id number] ID - [id number] ID - [id number] ID - [id number] ID - [id number] ID - [id number] ID - [id number] ID - [id number] W/PLT COUNT & AUTO [id number] 04:56:00 Test Item Value Reference Range Interpretation [...] Xpert (test code = Negative, See Xpress 99062-2) external report SARS-CoV-2/F yuliet/RSV test for linked [...] Fact Sh eet for Healthcare Prov iders: https://www.[employer]/ Documents/Xpert %20Xpress %70FIEK-AkD-8-F yuliet-RSV/30 2-4508%20Rev.%2 0B%20HCP% 20Fact%20Sheet. pdf Fact Sheet for Healt hcare Patients: https://www.[employer]/ Documents/Xpert %20Xpress %41FWOZ-CmC-1-F yuliet-RSV/30 2-4507%20Rev.%2 0B%20Pati ent%20Fact%20Sh eet.pdf SARS-COV-2 SLSL Performed at:[facility] PERFORMING LAB [place] [id number] (test code = [address] [address]-9) [place] [address] ph: [phone] [facility]2020-10-23 00:12:00 Test Item Value Reference Range Interpretation Comments SARS-COV2/RT-PCR Negative Not Detected, Performanc e of the Xpert (test code = Negative, See Xpress [id number]) external report SARS-CoV-2/F yuliet/RSV test for linked [...] sooner.Fact She et for Healthcare Prov iders: https://www.[employer]/ Documents/Xpert %20Xpress %46ZKAC-BvJ-3-F 2-4508%20Rev.%2 0B%20HCP% 20Fact%20Sheet. pdfFact Sheet for Healt hcare Patients: https://www.[employer]/ Documents/Xpert %20Xpress %40ICPL-VjE-8-F 2-4507%20Rev.%2 0B%20Pati ent%20Fact%20Sh eet.pdf SARS-COV-2 SLSL Performed at:[facility] PERFORMING LAB [place] [id number] (test code = [address] [place] 3646050) [place] [address] ph: [phone] CT, [id number] 22:34:00Unlisted Reason for Exam - Click Yes and Enter Reason Below->YesUnlisted Reason for Exam->known R ureteral tumor and r hydro, worsening R side pain, pt ESRD will dialyzeWill this procedure require oral contrast?->No [facility] : 1945 Sex: MFINAL REPORT CT, ABDOMEN \\T\\ [...] 10/22/2020 22:34:38 CT abdomen pelvis with IV [id number] 22:34:00Interface, External Ris In - 10/22/2020 10:37 [...] Rodger Ramires MDReport Verified Date/Time: 10/22/2020 22:34:38 [facility] W/PLT COUNT & AUTO [id number] 21:18:00 Test Item Value Reference Range Interpretation [...] = 2801) CBC W/PLT COUNT & AUTO [id number] 12:53:00 Test Item Value Reference Range Interpretation [...] (BEAKER) (test code = 2801) BASIC METABOLIC [id number] 12:49:00 Test Item Value Reference Range Interpretation [...] S 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 - [id number] ID - [id number] ID - [id number] ID - [id number] ID - [id number] ID - [id number] ID - [id number] ID - [id number] ID - [id number] ID - [id number] ID - [id number] ID - [id number] ID - [id number] 12:44:00 Test Item Value Reference Interpretation Comments [...] PTT (test code = 28.1 See_Comment Final 91367-2) Information (Auto Output) [Automated message] The system [...] valves. Lab Interpretation Normal (test code = 89245-4) [facility]/[id number] 12:44:00 Test Item Value Reference Range Interpretation Comments PROTIME (BEAKER) (test 11.0 seconds 9.3-12.0 Final Information code = 759) (Auto Output) INR (BEAKER) (test 0.99 See_Comment Final Inf ormation code = 370) (Auto Output) [Automated mess age] The system [employer] generated this result transmit radha reference range [...] 2.5-3.5 for patients with mechanical heart valves.CT, [id number] 08:58:00Unlisted Reason for Exam - Click Yes and Enter Reason Below->NoWill this procedure require oral contrast?->No [facility] : 1945 Sex: [...] Colonic diverticulosis. Tiny hiatal hernia. Signed: [facility] Verified Date/Time: 09/22/2020 08:58:10 Reading Location: [facility] B1 C013X [facility] Consult Reading Room CT abdomen/pelvis without & with IV ptbkvkkt0125-13-69 08:58:00 Interface, External Ris In - 09/22/2020 [...] Juarez MDReport Verified Date/Time: 09/22/2020 08:58:10 ReadingLocation: [facility] B1 C013X [facility] [id number] 15:11:00ESRD patientUnlisted Reason for Exam - Click Yes and Enter Reason Below->NoDeos the patient have an implanted electronic device?->No [facility] : 1945 Sex: MFINAL [...] Huizar Verified Date/Time: 09/02/2020 15:11:40 Reading Location: [facility] Diagnostic Imaging Reading Room - [place] [address] MR, PELVIS, WITHOUT [id number] 15:11:00ESRD patientUnlisted Reason for Exam - Click Yes and Enter Reason Below->NoDeos the patient have an implanted electronic device?->No [facility] : 1945 Sex: [...] Huizar Verified Date/Time: 09/02/2020 15:11:40 Reading Location: [facility] Diagnostic Imaging Reading Room - [place] [address] MR pelvis without IV [id number] 15:11:00Interface, External Ris In - 09/02/2020 3:13 [...] Huizarort Verified Date/Time: 09/02/2020 15:11:40 Reading Location: [facility] Diagnostic Imaging Reading Room - [place] [address] [facility] IV [id number] 15:11:00Interface, External Ris In - 09/02/2020 3:13 [...] Huizar Verified Date/Time: 09/02/2020 15:11:40 Reading Location: [facility] Diagnostic Imaging Reading Room - [place] [id number] [facility] CenterTISSUE [id number] 10:13:00Surgical Pathology Report Case: [id number] Authorizing Provider: Sebas Huang, Collected: 08/31/2020 12:53 PM OrderingLocation[facility] 05B Med/Surg Received: 08/31/2020 01:41 PM Pathologist: Ariana Victor MD Specimen: Bladder Tumor BLADDER TUMOR, TRANSURETHRAL RESECTION OF BLADDER: - 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 The specimen is entirely submitted into A1-A6. MG/ew Performed [facility], Department of Pathology, [address] [place] [address], Kdpwlm [facility], Department of Pathology, [address] [place] [address], Uw. [facility], Department of Pathology, [facility] [place] [address], OI, FLUORO, NON-SPECIFIC, UP TO 1 [id number] 12:50:00 Reason for exam:->Surgery [facility] : 1945 Sex: MFluoroscopic unit utilized for a procedure performed in the OR. No interpretation was requested. Refer to the operative report for findings. Refer to PACS for patient radiation dose information.FL fluoro non-specific up to 1 [id number] 12:50:00 Interface, External Ris In - 08/31/2020 12:55 PM CSTFluoroscopic unit utilized for a procedure performed in the OR. No interpretation was requested. Refer to the operative report for findings. 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 MD [...] Gradient: 3.29 mmHg Estimated PASP: 42.39 mmHgCHI Ventura County Medical CenterComprehensive metabolic [id number] 06:56:00 Test Item Value Reference Range Interpretation Comments Protein, Total (test 6.7 See_Comment [Autom ated code = 2885-2) message] The system which generated this result transmitted reference range : 6.0 - 8.5 gm/dL . The reference range was not used to interpr et this result as normal/abnormal . Albumin (test code = 3.2 g/dL 3.5-5 L 83321-9) Alkaline Phosphatase 57 U/L 30-115 (test code = 6768-6) Total Bilirubin 0.4 mg/dL 0.1-1.2 (test code = 1974-2) Sodium (test code = 138 meq/L 242-770 2133-2) Potassium (test code 3.9 meq/L 3.6-5.5 = 2823-3) Chloride (test code 99 meq/L 98-106 = 2075-0) CO2 (test code = 26 meq/L 20-29 2027-9) BUN (test code = 30 mg/dL 10-26 H 3094-0) Creatinine (test 7.85 mg/dL 0.5-1.2 H code = 2160-0) Glucose (test code = 94 mg/dL 70-110 2345-7) Calcium (test code = 8.7 mg/dL 8.5-10.5 51651-0) AST (test code = 49 U/L 5-40 H 1920-8) ALT (test code = 55 U/L 5-50 H 174-6) EGFR (test code = 7 mL/min/1.73 [place] [address]-9) m NOT ACCURATE CREATININE CLEARANCE IN PREDICTING GLOMERULAR FILTRATION RATE . ESTIMATED GFR I S NOT APPLICABLE FOR DIALYSIS PATIENTS. 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 - LITOOperator ID - LITOOperator ID - LITOOperator ID - LITOOperator ID - LITOOperator ID - LITOOperator ID - LITOOperator ID - LITOOperator ID - LITOOperator ID - LITOOperator ID - LITOOperator ID - LITOOperator ID - LITOOperator ID - LITOOperator ID - LITOOperator ID - JFGNYehzqgwyw0799-60-83 06:54:00 Test Item Value Reference Range Interpretation Comments Magnesium (test code = 2.1 mg/dL 1.5-3 67274-2) ТАТЬЯНА (test code = ТАТЬЯНА) Heavy Duty Diesel Mechanic ID - LITOOperator ID - LITOOperator ID - LITOOperator ID - JUNITO Lab Interpretation (test Normal code = 48452-1) [facility] HospitalMAGNESIUM2021-03-09 06:54:00 Test Item Value Reference Range Interpretation Comments MAGNESIUM (BEAKER) (test code = 2.1 mg/dL 1.5-3.0 627) Heavy Duty Diesel Mechanic ID - LITOOperator ID - LITOOperator ID - LITOOperator ID - LITOCBC W/PLT COUNT & AUTO [id number] 06:31:00 Test Item Value Reference Range Interpretation [...] PERCENT (BEAKER) (test code = 2801) Lipid [id number] 06:03:00 Test Item Value Reference Range Interpretation Comments Triglycerides (test 125 mg/dL code = 2571-8) Cholesterol (test code 92 mg/dL = 2093-3) HDL (test code = 27 mg/dL 5-9) LDL Calculated (test 40 mg/dL code = 38822-6) ТАТЬЯНА (test code = ТАТЬЯНА) Triglyceride Reference Range: Low Risk <150 Borderline 150-199 High Risk 200-499 Very High Risk >=500 Cholesterol Reference Range: Low Risk <200 Borderline 200-239 High Risk >240 HDL Cholesterol Reference Range: Low Risk >=60 High Risk <40 LDL Cholesterol Reference Range: Optimal <100 Near Optimal 100-129 Borderline 130-159 High 160-189 Very High >=190 Heavy Duty Diesel Mechanic ID - QSDP34Lfiwrult ID - MHDH05Cjbzgdvg ID - IABS62Jmdlznyy ID - XKDE90Xbaqdeix ID - PLND57Whcpyyrl ID - ZRES04 [facility] CenterLIPID [id number] 06:03:00 Test Item Value Reference Range Interpretation [...] Borderline 130-159 High 160-189 Very High >=190 Heavy Duty Diesel Mechanic ID - KFXD30Xteknide ID - PARN52Ufrpxytg ID - VWLZ44Kdqhwxls ID - QSRV54Kizlmqfe ID - GTKA51Ysujiwwr ID - OVRW89SJC W/PLT COUNT & AUTO QGIVQADFSXTY1266-01-06 05:38:00 Test Item Value Reference Range Interpretation [...] H PERCENT (BEAKER) (test code = 2801) [id number] 19:47:00 Test Item Value Reference Range Interpretation Comments PSA (test code = 2857-1) 4.9 ng/mL 0-4 H ТАТЬЯНА (test code = ТАТЬЯНА) Heavy Duty Diesel Mechanic ID - [id number] Lab Interpretation (test Abnormal code = 15192-3) [facility] HospitalPSA2021-03-07 19:47:00 Test Item Value Reference Range Interpretation Comments PROSTATE SPECIFIC ANTIGEN (BEAKER) 4.9 ng/mL 0.0-4.0 H (test code = 844) Heavy Duty Diesel Mechanic ID - [id number] 18:56:00 Test Item Value Reference Range Interpretation Comments Ferritin (test code = 4479.50 ng/mL 22-322 H 2276-4) ТАТЬЯНА (test code = ТАТЬЯНА) Heavy Duty Diesel Mechanic ID - [id number] ID - [id number] Lab Interpretation (test Abnormal code = 97584-6) [facility] HospitalFERRITIN2021-03-07 18:56:00 Test Item Value Reference Range Interpretation Comments FERRITIN (BEAKER) (test code = 4479.50 ng/mL 22.00-322.00 H 361) Heavy Duty Diesel Mechanic ID - ZYVKBRM480Pjovoxqq ID - LKSBWSV605Zkojdgw A731842-00-62 18:33:00 Test Item Value Reference Range Interpretation Comments Vitamin B12 (test code = 919 pg/mL 211-911 H 2132-9) ТАТЬЯНА (test code = ТАТЬЯНА) Heavy Duty Diesel Mechanic ID - [id number] Lab Interpretation (test Abnormal code = 92592-8) [facility] HospitalVITAMIN [id number] 18:33:00 Test Item Value Reference Range Interpretation Comments VITAMIN B12 (BEAKER) (test code = 919 pg/mL 211-911 H 774) Heavy Duty Diesel Mechanic ID - [id number], fcxw1609-63-81 18:25:00 Test Item Value Reference Range Interpretation Comments Free T4 (test code = 0.90 ng/dL 0.9-1.8 3024-7) ТАТЬЯНА (test code = ТАТЬЯНА) Heavy Duty Diesel Mechanic ID - [id number] Lab Interpretation (test Normal code = 32114-4) [facility] HospitalT4, [id number] 18:25:00 Test Item Value Reference Range Interpretation Comments FREE T4 (BEAKER) (test code = 655) 0.90 ng/dL 0.90-1.80 Heavy Duty Diesel Mechanic ID - [id number] 18:22:00 Test Item Value Reference Range Interpretation Comments TSH (test code = 5.480 See_Comment [Automated 13198-7) message] The system which generated this result transmit radha reference range : 0.350 - 5.500 uIU/mL. The reference range was not used to interpret this result as normal/abnormal . ТАТЬЯНА (test code = ТАТЬЯНА) Heavy Duty Diesel Mechanic ID - [id number] Lab Interpretation Normal (test code = 71678-8) [facility] HospitalTSH2021-03-07 18:22:00 Test Item Value Reference Range Interpretation Comments THYROID STIMULATING HORMONE 5.480 uIU/mL 0.350-5.500 (BEAKER) (test code = 772) Heavy Duty Diesel Mechanic ID - [id number]/S, RENAL, [id number] 12:08:00Please include bladderReason for exam:->hematuria, history of polycystic kidney diseaseShould this be performed at the bedside?->Yes [facility] : 1945 Sex: [...] hydronephrosis. Recommend CT for further evaluation. Signed: John Machado MDReport Verified Date/Time: 08/29/2020 12:08:20 Reading Location: [facility] C013 ConsultReading Room US renal qhfujjmk6876-85-85 12:08:00Interface, External Ris In - 08/29/2020 12:19 [...] hydronephrosis. Recommend CT for further evaluation. Signed: John Riggins MDReport Verified Date/Time: 08/29/2020 12:08:20 Reading Location: [facility] B1 C013W Consult Reading Room [facility]HEPAT[facility] SURFACE ANTIBODY 2020-08-29 11:42:00 Test Item Value Reference Range Interpretation Comments HEPATITIS B SURFACE ANTIBODY < mIU/mL <8.0 (BEAKER) (test code = 647) Heavy Duty Diesel Mechanic ID - FER MReticulocyte ybpnb7209-36-61 11:03:00 Test Item Value Reference Range Interpretation Comments % Retic (test code = 98727-7) 1.8 % 0.4-2.9 Lab Interpretation (test code = Normal 72873-0) [facility] HospitalRETICULOCYTE [id number] 11:03:00 Test Item Value Reference Range Interpretation Comments RETICULOCYTE COUNT PCT (BEAKER) (test 1.8 % 0.4-2.9 code = 575) Troponin [id number] 05:52:00 Test Item Value Reference Range Interpretation Comments Troponin I (test code = 0.22 ng/mL 0-0.15 HH [address]-2) ТАТЬЯНА (test code = ТАТЬЯНА) Troponin I [...] ZRES04 Lab Interpretation (test Abnormal code = 06608-3) [facility] HospitalTROPONIN [id number] 05:52:00 Test Item Value Reference Range Interpretation [...] failure, acidosis, acute neurological disease, and persistent tachyarrhythmia.Heavy Duty Diesel Mechanic ID - [id number] METABOLIC BLVRI2690-51-94 05:32:00 Test Item Value Reference Range Interpretation [...] S 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 - WIKK79Ccciuzmt ID - KJCB11Bgcyuoli ID - HNSF40Shahprlu ID - NLWI11Vrkxecxm ID - CLRU92Tsktvgwv ID - OUCT00Wcetudho ID - EMKR05Wmrlzpmg ID - OIPV83Dshihrso ID - YPAL53Ayawxsal ID - FDVL05Jfespwqo ID - QSVQ74Eqwkzpsx ID - CKHJ08Oapetxva ID - TOTT03SM, BRAIN, WITHOUT GBNUCHRL9289-65-24 05:08:00Unlisted Reason for Exam - Click Yes and Enter Reason Below->YesUnlisted Reason for Exam->ams[facility]Name[facility] : 1945 Sex: [...] recommended for further characterization. Signed: Yessenia Perez MDReport Verified Date/Time: 08/29/2020 05:08:18 CT brain without IV nzmxzrdu5672-15-45 05:08:00Interface, External Ris In - 08/29/2020 5:11 [...] recommended for further characterization. Signed: Yessenia Perez MDReport Verified Date/Time: 08/29/2020 05:08:18 [facility] W/PLT COUNT & AUTO [id number] 04:50:00 Test Item Value Reference Range Interpretation [...] (BEAKER) (test code = 2801) Occult blood, dtomk2886-16-69 03:55:00 Test Item Value Reference Range Interpretation Comments Occult blood (test code = 2335-8) Negative Negative Lab Interpretation (test code = Normal 98610-6) [facility] HospitalOCCULT BLOOD, [id number] 03:55:00 Test Item Value Reference Range Interpretation Comments FECAL OCCULT BLOOD (BEAKER) (test Negative Negative code = 618) HEPATITIS B SURFACE [id number] 17:43:00 Test Item Value Reference Range Interpretation Comments HEPATITIS B SURFACE ANTIGEN (2) Nonreactive Nonreactive (BEAKER) (test code = 2585) Heavy Duty Diesel Mechanic ID - CINTHIA [id number] 16:41:00 Test Item Value Reference Range Interpretation Comments TROPONIN I (BEAKER) (test code = 0.26 ng/mL 0.00-0.15 [facility]) Troponin I (TnI) levels must be interpreted [...] failure, acidosis, acute neurological disease, and persistent tachyarrhythmia.Heavy Duty Diesel Mechanic ID - HMDEANDRE J2235-49-10 09:49:00 Test Item Value Reference Range Interpretation [...] failure, acidosis, acute neurological disease, and persistent tachyarrhythmia.Heavy Duty Diesel Mechanic ID - RAHMABASIC METABOLIC PANEL 2020-08-28 07:01:00 [...] S 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 - AFPT41Wqtbbxqc ID - CXGQ99Tqefaotl ID - PSDE27Ebnfhcuo ID - VUZD61Rxtlzgsn ID - RCIQ70Nzsafffq ID - KGSA31Nohmytsg ID - YRCT52Olmknspf ID - NDHH39Karxeska ID - NGPZ48Qjfawqhj ID - GBEG01Ajntmcks ID - MMBC11Roumqvcs ID - XKSE02Mcfefqks ID - XCKZ90NQD W/PLT COUNT & AUTO [id number] 06:29:00 Test Item Value Reference Range Interpretation [...] PERCENT (BEAKER) (test code = 2801) Prothrombin time/[id number] 02:15:00 Test Item Value Reference Interpretation Comments [...] valves. Lab Interpretation Abnormal (test code = 55928-2) [facility] HospitalPROTHROMBIN TIME/[id number] 02:15:00 Test Item Value Reference Range Interpretation Comments PROTIME (BEAKER) 12.4 seconds 9.3-12.0 H Final Infor mation (test code = 759) (Auto Outp ut) INR (BEAKER) (test 1.12 See_Comment Final Inf ormation code = 370) (Auto Output) [Automated mess age] The system [employer] generated this result transmitted ref erence range: <=5.90. The reference range was not used to int erpret this result as normal/abnormal . RECOMMENDED COUMADIN/WARFARIN INR THERAPY RANGESSTANDARD DOSE: 2.0 - 3.0 Includes: PROPHYLAXIS forvenous thrombosis, systemic embolization; TREATMENT for venous thrombosis and/or pulmonary embolus.HIGH RISK: Target INR is 2.5-3.5 for patients with mechanical heart valves.COMPREHENSIVE METABOLIC [id number] 02:11:00 Test Item Value Reference Range Interpretation [...] S 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 - XWFQ82Aiiictxm ID - YSAB89Boedifpy ID - HMKQ77Ifixsgnb ID - EHUO28Nfbkbzeo ID - CYJQ25Socskxeq ID - IJOQ85Tsuejasf ID - VEBD89Xxqxgcfg ID - EAFT54Rsjkwdhq ID - AQCW81Djkjrlst ID - LCRF83EGNVP ERDDG5610-24-59 02:10:00 Test Item Value Reference Range Interpretation Comments TRIGLYCERIDES (BEAKER) (test code = 116 mg/dL 540) CHOLESTEROL (BEAKER) (test code = 84 mg/dL 631) HDL CHOLESTEROL (BEAKER) (test code 23 mg/dL = 976) LDL CHOLESTEROL CALCULATED (BEAKER) 38 mg/dL (test code = 633) Triglyceride Reference Range: Low Risk <150 Borderline 150-199 High Risk 200-499 Very High Risk >=500Cholesterol Reference Range: Low Risk <200 Borderline 200-239 High Risk >240HDL Cholesterol Reference Range: Low Risk >=60 High Risk <40LDL Cholesterol Reference Range: Optimal <100 Near Optimal 100-129 Borderline 130-159 High 160-189 Very High >=190 Heavy Duty Diesel Mechanic ID - KJVM68Gdpqsmiv ID - YNDW61Rfxmyvjt ID - [id number] Urinalysis w/Microscopic + Reflex to Chtuyla4355-08-16 02:09:00 Test Item Value Reference Range Interpretation Comments Color, UA (test code = Red 5778-6) Clarity, UA (test code Turbid = 5767-9) Specific [place], UA 1.020 1.001-1.035 (test code = 5811-5) pH, UA (test code = 8.5 5.0-8.0 H 5803-2) Protein, UA (test code >=300 mg/dL Negative A = 43276-8) Glucose, UA (test code 100 mg/dL Negative A = 365) Ketones, UA (test code 15 mg/dL Negative A = 2514-8) Bilirubin, UA (test Positive Negative A code = 74187-8) Blood, UA (test code = Large Negative A 56346-1) Nitrite, UA (test code Positive Negative A = 5802-4) Leukocytes, UA (test Large Negative A code = 5799-2) Urobilinogen, UA (test >=8.0 0.2-1 H code = 70233-9) Bacteria, UA (test code Moderate = 54298-1) RBC, UA (test code = >100 See_Comment [Autom ated 799-7) message] The sy stem which generated this result transmitted reference range : /HPF. The refer ence range was not u sed to interpret th is result as normal/abnormal . WBC, UA (test code = 10-20 See_Comment [Autom ated 50718-2) message] The sy stem which generated this result transmitted reference range : /HPF. The refer ence range was not u sed to interpret th is result as normal/abnormal . SQUAMOUS EPITHELIAL 5-10 See_Comment [Automa radha (test code = 20262-6) messag e] The system which generated this result transmitted reference range : /HPF. The refer ence range was not u sed to interpret th is result as normal/abnormal . Specimen Source (test code = 2795) Lab Interpretation Abnormal (test code = 19192-0) [facility] HospitalURINALYSIS W/ REFLEX URINE [id number] 02:09:00 Test Item Value Reference Range Interpretation [...] SOURCE(BEAKER) (test code = 2795) Hepatic function smqvz1902-70-26 02:07:00 Test Item Value Reference Range Interpretation Comments Protein, Total (test 6.5 See_Comment [Autom ated code = 2885-2) message] The system which generated this result transmit radha reference range : 6.0 - 8.5 gm/dL . The reference range was not u sed to interpret th is result as normal/abnormal . Albumin (test code = 3.1 g/dL 3.5-5 L 58034-9) Total Bilirubin (test 0.5 mg/dL 0.1-1.2 code = 1974-2) Bilirubin, Direct 0.3 mg/dL 0-0.4 (test code = 1967-7) Alkaline Phosphatase 56 U/L 30-115 (test code = 6768-6) AST (test code = 35 U/L 5-40 1920-8) ALT (test code = 30 U/L 5-50 1742-6) ТАТЬЯНА (test code = ТАТЬЯНА) Heavy Duty Diesel Mechanic ID - EPRQ99Bytlicoy ID - ORUJ24Eqyvxqzu ID - FKUI74Tewphpmo ID - BQUY51Bzzbujdn ID - FOMA16Uoudjezs ID - DKRY07Zxhfcxik ID - ZRES04 Lab Interpretation Abnormal (test code = 76595-3) [facility] HospitalHEPATIC FUNCTION [id number] 02:07:00 Test Item Value Reference Range Interpretation [...] (test code = 30 U/L 5-50 347) Heavy Duty Diesel Mechanic ID - XIOQ98Roqttmif ID - HBWX25Hhnnzntg ID - ARST43Hutkgqif ID - POWC93Zprekhkg ID - RXVZ54Tjfrqsta ID - LJSY70Iyjziaea ID - GNEQ28Exzamkdpgu A1c 2020-08-28 01:48:00 Test Item Value Reference Range Interpretation Comments Hemoglobin A1C (test code 4.8 % 4.3-6.1 = 4548-4) ТАТЬЯНА (test code = ТАТЬЯНА) Heavy Duty Diesel Mechanic ID - [id number] Lab Interpretation (test Normal code = 59709-6) [facility] HospitalHEMOGLOBIN [id number] 01:48:00 Test Item Value Reference Range Interpretation Comments HEMOGLOBIN A1C (BEAKER) (test code = 4.8 % 4.3-6.1 368) Heavy Duty Diesel Mechanic ID - [id number] 01:42:00 Test Item Value Reference Range Interpretation Comments MAGNESIUM (BEAKER) (test code = 2.2 mg/dL 1.5-3.0 627) Heavy Duty Diesel Mechanic ID - VLKZ42Xibfkfop ID - BLVP68Gvuauihj ID - ORBT62Chuueqvx ID - ZRES04 KVZTBJKVGZ6955-67-25 01:39:00 Test Item Value Reference Range Interpretation Comments PHOSPHORUS (BEAKER) (test code = 5.0 mg/dL 2.5-4.5 H 604) Heavy Duty Diesel Mechanic ID - VSIQ64HIC W/PLT COUNT & AUTO [id number] 01:37:00 Test Item Value Reference Range Interpretation [...] H PERCENT (BEAKER) (test code = 2801) ZBH-MUXJKFH4002-30-05 00:00:00Ordered by an unspecified provider.[facility] HospitalAirway2021-02-04 08:11:47Rafael Blas CRNA 07/29/2020 8:12 AMAirway Date/Time: [...] RSI: No Number of Attempts at Approach: Mae Mariee Potassium, mutweeq3029-98-46 07:20:20 Test Item Value Reference Range Interpretation Comments Potassium, syringe 5.0 See_Comment [Automat ed message] The (test code = 2007) system [facility] generated this result tra nsmitted reference range : 3.5 - 5.0 mEq/L. The refe rence range was not used to interpret this result as normal/abnormal . Luis MethodistCOVID-19 qualitative [id number] 22:42:40 Test Item Value Reference Range Interpretation Comments Interpretation (test Negative results do code = 8687852) not preclude 2019-nCoV infection and should not be used as the sole basis for treatment or other patient management decisions. Negative results must be combined with clinical observations, patient history, and epidemiological information. COVID-19 qualitative Not-Detected Not-Detected RT-PCR result (test code = 69706-1) COVID-19 qualitative See link below for C ase Number: RT-PCR (test code = PDF Lab Report [id number]) Luis LockhartTflrenzkoOBNV-JmD-8 (COVID-19) RNA [Presence] in Respiratory specimen by MADYSON with probe erfwxrbdw2788-85-74 22:41:47 Test Item Value Reference Range Interpretation Comments SARS-CoV-2 (COVID-19) RNA Not detected Not-Detected [Presence] in Respiratory specimen by MADYSON with probe detection (test code = 51653-8) ECG Pre/Post [id number] 18:59:42 Test Item Value Reference Range Interpretation Comments Ventricular rate (test 82 code = 253) Atrial rate (test code 82 = 255) OR interval (test code 174 = 266) QRSD [...] 11:47,-No significant change was found- Luis Phoenix [id number] 11:07:00Surgical Pathology Report Case: [id number] Authorizing Provider: Bin Acevedo, Collected: 02/12/2020 09:33 AM OrderingLocation: [facility] Received: 02/12/2020 10:58 AM PERIOPERATIVE SERVICES Pathologist: Carlos Betancourt MD Specimen: Carotid, Left, LEFT CAROTID PLAQUE ARTERY, LEFT CAROTID, ENDARTERECTOMY:CALCIFIC ATHEROSCLEROTIC PLAQUE Signing Pathologist Direct Phone Line: [phone] signed by Carlos Betancourt MD on 02/17/2020 at 11:07 [id number]; [id number] carotid stenosis Carotid, LeftA. Received fresh labeled with the patient's name, medical record number and "parotid, left" is a previously incised portion of yellow plaque measuring 1.6 cm in length and 0.8 cm in diameter. Specimen is serially sectioned to reveal calcifications measuring up to 0.2 cm in thickness. [employer] sections are submitted in A1, following decalcification.SATISH [place] PA ([facility])PerformedHEPATITIS B SURFACE [id number] 14:11:00 Test Item Value Reference Range Interpretation Comments HEPATITIS B SURFACE ANTIGEN (2) Nonreactive Nonreactive (BEAKER) (test code = 2585) Specimen is considered negative for HBsAg.POC-Glucose [id number] 13:03:00 Test Item Value Reference Range Interpretation Comments POC-Glucose Meter (test 83 mg/dL 70-110 : TE STED AT [facility] code = 1538) [address] [place] [address], [facility] 30: Heavy Duty Diesel Mechanic/Techni justus ID = [id number] for ELY DONGIA Lab Interpretation (test Normal code = 15646-4) [facility] [id number] 13:03:00 Test Item Value Reference Range Interpretation Comments POC-GLUCOSE METER 83 mg/dL 70-110 : TESTED [place] [address] ([facility]) (test code = [facility], 1538) [address]: Heavy Duty Diesel Mechanic/Techni justus ID = [id number] for ELGI N, JOIE POC ACTIVATED CLOTTING [id number] 06:30:00 Test Item Value Reference Range Interpretation Comments Activated Clotting Time 235 sec : 74 -137 seconds, (test code = 441) Baseline: TESTED AT [address], [facility] 30: Heavy Duty Diesel Mechanic/Techni justus ID = [id number] for MO YOVANI, RASHIED [id number] 06:30:00 Test Item Value Reference Range Interpretation Comments ACTIVATED CLOTTING TIME 235 sec : 74 -137 seconds, (BEAKER) (test code = Baseli ne: TESTED AT [facility]) [address], [facility] 30: Heavy Duty Diesel Mechanic/Techni justus ID = [id number] for MO YOVANI, RASHIED BASIC METABOLIC [id number] 06:01:00 Test Item Value Reference Range Interpretation [...] S 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 Timmy WHEELER LPOCT-GLUCOSE [id number] 06:00:00 Test Item Value Reference Range Interpretation Comments POC-GLUCOSE METER 94 mg/dL 70-110 : TESTED A T [facility] 6720 (BEAKER) (test code = [place], 1538) [address]: Heavy Duty Diesel Mechanic/Techni justus ID = [id number] for Aren Cheatham [id number] 05:49:00 Test Item Value Reference Range Interpretation Comments MAGNESIUM (BEAKER) (test code = 1.9 mg/dL 1.6-2.6 627) Heavy Duty Diesel Mechanic ID - LIAM [id number] 05:31:00 Test Item Value Reference Range Interpretation Comments Cortisol, Total (test code 8.3 ug/dL 3.7-19.4 = 2755) ТАТЬЯНА (test code = ТАТЬЯНА) Heavy Duty Diesel Mechanic ID - CARLO Lab Interpretation (test Normal code = 62129-9) [facility] HospitalCORTISOL2020-08-21 05:31:00 Test Item Value Reference Range Interpretation Comments CORTISOL, TOTAL (BEAKER) (test code 8.3 ug/dL 3.7-19.4 = 2755) Heavy Duty Diesel Mechanic ID - JEAN CLAUDEASICBC (HEMOGRAM ONLY)2020-02-13 03:06:00 Test Item Value Reference [...] (test code = 413) TSH/Free T4 If [id number] 02:45:00 Test Item Value Reference Range Interpretation Comments TSH (test code = 4.682 See_Comment [Automated 68436-2) message] The system which generated this result transmit radha reference range : 0.350 - 4.940 uIU/mL. The reference range was not used to interpret this result as normal/abnormal . ТАТЬЯНА (test code = ТАТЬЯНА) Heavy Duty Diesel Mechanic ID - PIAYA L Lab Interpretation Normal (test code = 07451-9) [facility] HospitalTSH/FREE T4 IF [id number] 02:45:00 Test Item Value Reference Range Interpretation Comments THYROID STIMULATING HORMONE 4.682 uIU/mL 0.350-4.940 (BEAKER) (test code = 772) Heavy Duty Diesel Mechanic ID - PIAYA LPOCT-GLUCOSE [id number] 00:32:00 Test Item Value Reference Range Interpretation Comments POC-GLUCOSE METER 82 mg/dL 70-110 : TESTED A T [facility] 6720 (BEAKER) (test code = [place], 1538) [address]: Heavy Duty Diesel Mechanic/Techni justus ID = [id number] for Aren Cheatham Blood gas, [id number] 18:26:00 Test Item Value Reference Range Interpretation Comments pH, Arterial (test code 7.31 7.35-7.45 L = 2744-1) pCO2, Arterial (test 45 See_Comment [Autom ated code = 2019-) message] The system which generated this result [...] % Lab Interpretation Abnormal (test code = 05936-3) [facility] HospitalBLOOD GAS, [id number] 18:26:00 Test Item Value Reference Range Interpretation [...] code = 1819) 21.0 % COMPREHENSIVE METABOLIC [id number] 18:16:00 Test Item Value Reference Range Interpretation [...] S 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 - [id number] 18:14:00 Test Item Value Reference Range Interpretation Comments MAGNESIUM (BEAKER) (test code = 1.8 mg/dL 1.6-2.6 627) Heavy Duty Diesel Mechanic ID - NTPCalcium, [id number] 18:02:00 Test Item Value Reference Range Interpretation Comments Calcium, Ion (test code = 1993-) 1.14 mmol/L 1.12-1.27 pH, Blood (test code = 78330-1) 7.32 [facility] CenterCAL[facility], [id number] 18:02:00 Test Item Value Reference Range Interpretation Comments CALCIUM IONIZED (BEAKER) (test 1.14 mmol/L 1.12-1.27 code = 698) PH, BLOOD (BEAKER) (test code = 7.32 1810) [id number] 18:01:00 Test Item Value Reference Range Interpretation [...] (BEAKER) (test code = 413) HGB/HCT (H&H)-Stat [id number] 10:37:00 Test Item Value Reference Range Interpretation Comments Hemoglobin (test code = 786-4) 9.2 g/dL 13-16.8 L Hematocrit (test code = 4544-3) 27.0 % 40-50 L Lab Interpretation (test code = Abnormal 55377-8) [facility] HospitalBLOOD GAS, [id number] 10:37:00 Test Item Value Reference Range Interpretation [...] 1819) 60.0 % HGB/HCT (H&H) - STAT [id number] 10:37:00 Test Item Value Reference Range Interpretation Comments HEMOGLOBIN (BEAKER) (test code = 9.2 g/dL 13.0-16.8 L 410) HEMATOCRIT (BEAKER) (test code = 27.0 % 40.0-50.0 L 411) Glucose-Stat [id number] 10:36:00 Test Item Value Reference Range Interpretation Comments Glucose (test code = 2345-7) 104 mg/dL 70-110 Lab Interpretation (test code = Normal 87460-1) [facility] [id number] 10:36:00 Test Item Value Reference Range Interpretation Comments Sodium (test code = 2951-2) 137 meq/L 136-145 Lab Interpretation (test code = Normal 78259-5) [facility] HospitalPotassium-Stat [id number] 10:36:00 Test Item Value Reference Range Interpretation Comments Potassium (test code = 2823-3) 4.0 meq/L 3.6-5.5 Lab Interpretation (test code = Normal 04283-1) [facility] HospitalGLUCOSE-STAT [id number] 10:36:00 Test Item Value Reference Range Interpretation Comments GLUCOSE RANDOM (BEAKER) (test code 104 mg/dL 70-110 = 652) SODIUM NA-STAT [id number] 10:36:00 Test Item Value Reference Range Interpretation Comments SODIUM (BEAKER) (test code = 381) 137 meq/L 136-145 POTASSIUM-STAT [id number] 10:36:00 Test Item Value Reference Range Interpretation Comments POTASSIUM (BEAKER) (test code = 4.0 meq/L 3.6-5.5 379) SARS-COV2/RT-PCR ([facility])2020-02-12 08:04:00 Test Item Value Reference Range Interpretation Comments SARS-COV2/RT-PCR (test code Negative Not Detected, Negative, = 7146324) See external report for linked test SARS-COV-2 PERFORMING LAB [facility] (test code = 1579818) Negative results do not preclude SARS-CoV-2 infection [...] of the Act.Fact Sheet for Healthcare Pro viders:https://www.[employer]/Documents/Xpert%20Xpress%20SARS%20CoV-2/Fact%20Sh eets/302-3802%92IWJD-LTT-7%20HEALTHCARE%20PROVIDERS%20FACT%20SHEET.pdfFact Sheet for Healthcare Patients:https://www.[employer]/Documents/Xpert%20Xpress%20SARS%20CoV-2/Fact%20Sheets/302-3801%20SARS-COV -2%20PATIENT%20FACT%20SHEET.pdfPerforming Laboratory:[facility] [place] [address].[place], [place] [address]WCXKS METABOLIC [id number] 07:28:00 Test Item Value Reference Range Interpretation [...] S 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 - NTPCBC W/PLT COUNT & AUTO [id number] 07:21:00 Test Item Value Reference Range Interpretation [...] code = 2801) HGB/HCT (H&H) - STAT [id number] 06:45:00 Test Item Value Reference Range Interpretation Comments HEMOGLOBIN (BEAKER) (test code = 11.3 g/dL 13.0-16.8 L 410) HEMATOCRIT (BEAKER) (test code = 33.0 % 40.0-50.0 L 411) GLUCOSE-STAT [id number] 06:42:00 Test Item Value Reference Range Interpretation Comments GLUCOSE RANDOM (BEAKER) (test code 103 mg/dL 70-110 = 652) POTASSIUM-STAT [id number] 06:42:00 Test Item Value Reference Range Interpretation Comments POTASSIUM (BEAKER) (test code = 4.8 meq/L 3.6-5.5 379) POCT-GLUCOSE [id number] 05:51:00 Test Item Value Reference Range Interpretation Comments POC-GLUCOSE METER 108 mg/dL 70-110 : TESTED A T [facility] (BEAKER) (test code [facility], = 1538) [address]: 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
[2021-01-01 11:24] LABS: Absolute Lymphocytes (CBC) 1.3 K/uL (0.7-4.9); Basophils % 0.7 % (0-1.3); Hematocrit 26.8 % (39.6-49.0); Lymphocytes % 13.4 % (15.3-44.8); MPV 8.9 fL (7.6-11.3); RBC Red Blood Cell Count 2.92 M/uL (4.33-5.43)
[2021-01-01 11:43] LABS: Albumin 3.5 g/dL (3.4-5.0); Bilirubin Direct 0.2 mg/dL (0-0.2); Bilirubin Total 0.6 mg/dL (0.2-1.0); Potassium 4.1 mmol/L (3.5-5.1); Protein, Total 7.5 g/dL (6.4-8.2)
--- NOTE | 2021-01-01 11:49 | ER ---
[facility] Name: Robbie Kelly Age: 75 yrs Sex: Male : 1945 Arrival Date: 01/01/2021 Time: 10:31 Bed 5 Private MD: Diagnosis: Anemia in chronic kidney disease Presentation: 01/01 10:34 Chief complaint: Spouse and/or significant other states: He is on dialysis MWF, they ca1 called and said his HGB is low at 7.8. I don't know when it was drawn, he went to dialysis yesterday. He has black stools and bladder Cancer. He uses O2 continuous at home at 2 - 3 LPM and we left it at home today. Coronavirus screen: Client denies travel out of the [place] in the last 14 days. cough unrelated to allergies, shortness of breath, Client presents with at least one sign or symptom that may indicate coronavirus-19. Standard/surgical mask placed on the client. Provider contacted for isolation considerations. Ebola Screen: Patient negative for fever greater than or equal to 101.5 degrees Fahrenheit, and additional compatible Ebola Virus Disease symptoms Patient denies exposure to infectious person. Patient denies travel to an Ebola-affected area in the 21 days before illness onset. No symptoms or risks identified at this time. Initial Sepsis Screen: Does the patient meet any 2 criteria? No. Patient's initial sepsis screen is negative. Does the patient have a suspected source of infection? No. Patient's initial sepsis screen is negative. Risk Assessment: Do you want to hurt yourself or someone else? Patient reports no desire to harm self or others. Onset of symptoms was January 01, 2021. 10:34 Method Of Arrival: Wheelchair ca1 10:34 Acuity: DADA 2 ca1 Historical: - Allergies: 10:45 No Known Allergies; ca1 - Home Meds: 10:45 atorvastatin 40 mg Oral tab 1 tab once daily [Active]; Auryxia 210 mg iron oral tab 2 ca1 tabs 3 times per day [Active]; furosemide 20 mg Oral tab 1 tab 2 times per day [Active]; fluticasone propion-salmeterol 113 mcg-14 mcg/actuation inhalation aebs 1 puff 2 times per day [Active]; hydroxyzine HCl 25 mg Oral tab 1 tab 4 times per day [Active]; levothyroxine 88 mcg tab 1 tab once daily [Active]; metoprolol tartrate 25 mg oral tab 1 tab 2 times per day [Active]; Aileen-Shari 0.8 mg oral tab daily [Active]; Tums Oral 3 tab three times a day [Active]; Ventolin HFA 90 mcg/actuation Nebulizer HFAA 1 puff every 4 hours [Active]; albuterol sulfate 2.5 mg /3 mL (0.083 %) Inhl nebu 3 mL twice a day [Active]; - PMHx: 10:45 Anemia; COPD; Dialysis; M,W,F; Hypertension; Hypothyroidism; POLYCYSTIC KIDNEY DISEASE; ca1 RENAL FAILURE; 10:49 Anemia; COPD; Dialysis; M,W,F; Hypertension; Hypothyroidism; POLYCYSTIC KIDNEY DISEASE; ap3 RENAL FAILURE; - Immunization history:: Client reports receiving the 2nd dose of the Covid vaccine, Client reports receiving the 1st dose of the Covid vaccine, Pneumococcal vaccine is up to date, Flu vaccine is up to date. - Social history:: Smoking status: Patient/guardian denies using tobacco, the patient reports quitting approximately 2 years ago. Screenin:48 Abuse screen: Denies threats or abuse. Nutritional screening: No deficits noted. ap3 Tuberculosis screening: No symptoms or risk factors identified. Fall Risk None identified. Assessment: 10:44 General: Appears in no apparent distress. comfortable, Behavior is calm, cooperative, ap3 appropriate for age. Pain: Denies pain. Neuro: Level of Consciousness is awake, alert, obeys commands, Oriented to person, place, time, situation, Appropriate for age. Cardiovascular: Reports shortness of breath, since r/t COPD. Respiratory: Airway is patent Respiratory effort is even, unlabored, Respiratory pattern is regular, symmetrical, pt placed on 3 liters via NC. Patient reports wearing 2-3 liters of O2 via NC at home. the patient has mild shortness of breath. GI: Reports dark stools for 1 week. : Reports bloody urine-related to hx of cancer. EENT: No signs and/or symptoms were reported regarding the EENT system. Musculoskeletal: No signs and/or symptoms reported regarding the musculoskeletal system. Vital Signs: 10:34 BP 145 / 73; Pulse 81; Resp 20; Temp 97.7(TE); Pulse Ox 70% on R/A; Weight 78.7 kg; ca1 Height 5 ft. 10 in. (177.80 cm) (R); Pain 0/10; 10:36 Pulse Ox 96% on 4 lpm NC; ca1 10:49 BP 136 / 69; Pulse 82; Resp 17; Pulse Ox 98% on 3 lpm NC; Pain 0/10; ap3 11:36 BP 125 / 73; Pulse 83; Pulse Ox 96% on R/A; ap3 12:20 BP 125 / 73; Pulse 86; Resp 17; Pulse Ox 92% on 2 lpm NC; ap3 10:34 Body Mass Index 24.89 (78.70 kg, 177.80 cm) ca1 ED Course: 10:31 Patient arrived in ED. bp1 10:33 Tomy Eddy PA is PHCP. jr8 10:33 Jayjay Chapa MD is Attending Physician. jr8 10:43 Penelope Gu, LEXII is Primary Nurse. ap3 10:44 Triage completed. ca1 10:45 Arm band placed on right wrist. ca1 10:49 Patient has correct armband on for positive identification. Bed in low position. Call ap3 light in reach. Side rails up X2. Adult w/ patient. otc clerk on. Pulse ox on. NIBP on. Door closed. Noise minimized. 10:50 Inserted saline lock: 20 gauge in right antecubital area, using aseptic technique. ap3 Blood collected. 12:20 No provider procedures requiring assistance completed. IV discontinued, intact, ap3 bleeding controlled, No redness/swelling at site. Pressure dressing applied. Administered Medications: No medications were administered Outcome: 11:49 Discharge ordered by . jrOdessa 12:20 Discharged to home ambulatory, with family. ap3 12:20 Condition: good 12:20 Discharge instructions given to patient, significant other, Instructed on discharge instructions, follow up and referral plans. Demonstrated understanding of instructions, follow-up care. 12:21 Patient left the ED. ap3 Signatures: Tomy Eddy PA PA jr8 Penelope Gu, RN RN ap3 Clary Ross RN RN ca1 Maria T Richards bp1 Corrections: (The following items were deleted from the chart) 10:49 10:45 PMHx: Angina pectoris; ca1 ca1 10:49 10:45 PMHx: Angina pectoris; ca1 ca1 10:49 10:45 PMHx: Angina pectoris; ca1 ca1
--- NOTE | 2021-01-01 11:49 | EDPHYS ---
Physician Documentation [facility] Name: Robbie Kelly Age: 75 yrs Sex: Male : 1945 Arrival Date: 01/01/2021 Time: 10:31 Bed 5 Private MD: ED Physician Jayjay Chapa HPI: 01/01 11:15 This 75 yrs old Male presents to ER via Wheelchair with complaints of jr8 weakness . 11:15 Patient stated that he feels more weak than normal. While at dialysis today had blood jr8 drawn and was found to be anemic. Patient with anemia history . Onset: The symptoms/episode began/occurred suddenly, today. Severity of symptoms: At their worst the symptoms were mild in the emergency department the symptoms are unchanged. The patient has experienced similar episodes in the past, a few times. The patient has not recently seen a physician. Historical: - Allergies: 10:45 No Known Allergies; ca1 - Home Meds: 10:45 atorvastatin 40 mg Oral tab 1 tab once daily [Active]; Auryxia 210 mg iron oral tab 2 ca1 tabs 3 times per day [Active]; furosemide 20 mg Oral tab 1 tab 2 times per day [Active]; fluticasone propion-salmeterol 113 mcg-14 mcg/actuation inhalation aebs 1 puff 2 times per day [Active]; hydroxyzine HCl 25 mg Oral tab 1 tab 4 times per day [Active]; levothyroxine 88 mcg tab 1 tab once daily [Active]; metoprolol tartrate 25 mg oral tab 1 tab 2 times per day [Active]; Aileen-Shari 0.8 mg oral tab daily [Active]; Tums Oral 3 tab three times a day [Active]; Ventolin HFA 90 mcg/actuation Nebulizer HFAA 1 puff every 4 hours [Active]; albuterol sulfate 2.5 mg /3 mL (0.083 %) Inhl nebu 3 mL twice a day [Active]; - PMHx: 10:45 Anemia; COPD; Dialysis; M,W,F; Hypertension; Hypothyroidism; POLYCYSTIC KIDNEY DISEASE; ca1 RENAL FAILURE; 10:49 Anemia; COPD; Dialysis; M,W,F; Hypertension; Hypothyroidism; POLYCYSTIC KIDNEY DISEASE; ap3 RENAL FAILURE; - Immunization history:: Client reports receiving the 2nd dose of the Covid vaccine, Client reports receiving the 1st dose of the Covid vaccine, Pneumococcal vaccine is up to date, Flu vaccine is up to date. - Social history:: Smoking status: Patient/guardian denies using tobacco, the patient reports quitting approximately 2 years ago. ROS: 11:15 Eyes: Negative for injury, pain, redness, and discharge, ENT: Negative for injury, jr8 pain, and discharge, Neck: Negative for injury, pain, and swelling, Cardiovascular: Negative for chest pain, palpitations, and edema, Respiratory: Negative for shortness of breath, cough, wheezing, and pleuritic chest pain, Abdomen/GI: Negative for abdominal pain, nausea, vomiting, diarrhea, and constipation, Back: Negative for injury and pain, MS/Extremity: Negative for injury and deformity, Skin: Negative for injury, rash, and discoloration, Neuro: Negative for headache, weakness, numbness, tingling, and seizure. 11:15 Constitutional: Positive for fatigue, malaise. Exam: 11:15 Constitutional: This is a well developed, well nourished patient who is awake, alert, jr8 and in no acute distress. Eyes: Pupils equal round and reactive to light, extra-ocular motions intact. Lids and lashes normal. Conjunctiva and sclera are non-icteric and not injected. Cornea within normal limits. Periorbital areas with no swelling, redness, or edema. ENT: Nares patent. No nasal discharge, no septal abnormalities noted. Tympanic membranes are normal and external auditory canals are clear. Oropharynx with no redness, swelling, or masses, exudates, or evidence of obstruction, uvula midline. Mucous membranes moist. Neck: Trachea midline, no thyromegaly or masses palpated, and no cervical lymphadenopathy. Supple, full range of motion without nuchal rigidity, or vertebral point tenderness. No Meningismus. Cardiovascular: Regular rate and rhythm with a normal S1 and S2. No gallops, murmurs, or rubs. Normal PMI, no JVD. No pulse deficits. Respiratory: Lungs have equal breath sounds bilaterally, clear to auscultation and percussion. No rales, rhonchi or wheezes noted. No increased work of breathing, no retractions or nasal flaring. Abdomen/GI: Soft, non-tender, with normal bowel sounds. No distension or tympany. No guarding or rebound. No evidence of tenderness throughout. Back: No spinal tenderness. No costovertebral tenderness. Full range of motion. Skin: Warm, dry with normal turgor. Normal color with no rashes, no lesions, and no evidence of cellulitis. MS/ Extremity: Pulses equal, no cyanosis. Neurovascular intact. Full, normal range of motion. Neuro: Awake and alert, GCS 15, oriented to person, place, time, and situation. Cranial nerves II-XII grossly intact. Motor strength 5/5 in all extremities. Sensory grossly intact. Vital Signs: 10:34 BP 145 / 73; Pulse 81; Resp 20; Temp 97.7(TE); Pulse Ox 70% on R/A; Weight 78.7 kg; ca1 Height 5 ft. 10 in. (177.80 cm) (R); Pain 0/10; 10:36 Pulse Ox 96% on 4 lpm NC; ca1 10:49 BP 136 / 69; Pulse 82; Resp 17; Pulse Ox 98% on 3 lpm NC; Pain 0/10; ap3 11:36 BP 125 / 73; Pulse 83; Pulse Ox 96% on R/A; ap3 12:20 BP 125 / 73; Pulse 86; Resp 17; Pulse Ox 92% on 2 lpm NC; ap3 10:34 Body Mass Index 24.89 (78.70 kg, 177.80 cm) ca1 MDM: 10:33 Patient medically screened. 11:48 Data reviewed: vital signs, nurses notes, lab test result(s), and as a result, I will [facility] discharge patient. Data interpreted: Pulse oximetry: on room air is 96 %. Interpretation: normal. Counseling: I had a detailed discussion with the patient and/or guardian regarding: the historical points, exam findings, and any diagnostic results supporting the discharge/admit diagnosis, lab results, the need for outpatient follow up, a family practitioner, to return to the emergency department if symptoms worsen or persist or if there are any questions or concerns that arise at home. ED course: Patient H/H stable for patient. No need for transfusion at this time . 01/01 10:51 Order name: CBC with Diff; Complete Time: 11:29 01/01 10:51 Order name: Basic Metabolic Panel; Complete Time: 11:48 8 01/01 10:51 Order name: TS; Complete Time: 12:15 jr8 01/01 10:51 Order name: IV; Complete Time: 11:10 8 01/01 10:51 Order name: LFT's; Complete Time: 11:48 jr8 Administered Medications: No medications were administered Disposition: 15:28 Co-signature as Attending Physician, Jayjay Chapa MD I agree with the assessment and 4 plan of care. Disposition Summary: 01/01/21 11:49 Discharge Ordered Location: Home jr8 Problem: new jr8 Symptoms: have improved jr8 Condition: Stable jr8 Diagnosis - Anemia in chronic kidney disease jr8 Followup: jr8 - With: Private Physician - When: 2 - 3 days - Reason: Recheck today's complaints, Continuance of care, Re-evaluation by your physician Discharge Instructions: - Discharge Summary Sheet jr8 - Anemia jr8 - End-Stage Kidney Disease jr8 Forms: - Medication Reconciliation Form jr8 - Thank You Letter jr8 - Antibiotic Education jr8 - Prescription Opioid Use jr8 Signatures: Dispatcher [employer] Tomy Lucero PA PA jr8 Jayjay Chapa MD MD tw4 Penelope Gu RN RN ap3 Clary Ross RN RN ca1 Corrections: (The following items were deleted from the chart) 10:49 10:45 PMHx: Angina pectoris; ca1 ca1 10:49 10:45 PMHx: Angina pectoris; ca1 ca1 10:49 10:45 PMHx: Angina pectoris; ca1 ca1
[2021-01-01 13:06] VITALS: TEMP 97.7
[2021-01-01 13:13] VITALS: BP 125/73
[2021-01-01 13:16] VITALS: O2SAT 92
== END 2021-01-01 12:21 | disposition home or self-care (01) ==
LOC: ER 10:29
DX: I12.0 Hypertensive chronic kidney disease with stage 5 chronic kidney disease or end stage renal disease (principal); N18.6 End stage renal disease; D63.8 Anemia in other chronic diseases classified elsewhere; Q61.3 Polycystic kidney, unspecified
CPT/HCPCS: 36415; 80048; 80076; 85025; 86850; 86900; 86901; 99284

== ENCOUNTER 2021-02-18 10:48 | Inpatient (IN) | payer OTHER ==
--- OUTSIDE RECORDS SUMMARY | 2021-02-18 10:54 | XMS REPORT | Continuity of Care Document ---
:1945 Author Organization [facility] t Address [address] [place] [address] Care Team Providers Name Role Phone Asked, [...] Attending Clinician TONNY ACEVEDO Attending Clinician Unavailable ALYSSA FARRIS Admitting Clinician Unavailable KAYDEN Admitting Clinician Unavailable MD Vishal KEEN Admitting Clinician Unavailable TONNY ACEVEDO Admitting Clinician Unavailable Payers Payer Name Policy Type Policy Effective Date Expiration Date Sour ce Number MEDICAREMEDICARE A [id number] CHASITY Rueda [id number] 2009 00:00:00 - M edical -PresentMedicare Center [facility] [id number] CHASITY Liu SUPPLEMENT/INDIVIDUAL 00:00:00 - M edical [facility] [id number] 2016 -PresentMedigap MEDICAREMEDICARE PART [id number] 2010 Ak thodist A AND 00:00:00 Hospital [id number] 2009 [place] LIFE AND [id number] 2020 Alon camacho CASUALTYIndependent IP LIFE 00:00:00 Hosp ital AND [id number]/2020-PresentCommercia l Problems Condition Condition Condition Status Onset Resolution Last Treating Co mments Source Name Details Category Date Date Treatment Clinician Date Urethral Urethral Disease Active [facility] - 00:[facility]: Medical 00 [place] Hematuria Hematuria Disease Active CHASITY Cadena 3-06 [facility] - 00:00: Medical [place] Altered Altered Disease Active CHASITY Cadena mental mental 3-05 Marybeth - status status 00:00: Medical 00 Center s/p L CEA s/p L CEA Disease Active CHASITY Cadena 02/11 ( 02/11 ( 02-11 Julio Acevedo) Kristina) 00:00: Medica l 00 Center Pre-transp Pre-transp [...] Last [facility] (hypertens (hypertens 12-19 [facility] - ion) ion) 00:00: t & Plan: Medical 00 Continue Center managemen t with nephrolog y as prescribe d. Aortic Aortic Disease Active Last [facility] aneurysm aneurysm 12-19 Assessmen [facility]pin es - 00:00: t & Plan: Medical Repaired Center with a stent in 2012. Polycystic Polycystic Disease Active 2017-[address] kidney kidney 12-19 [facility] - 00:00: Medical 00 Center COPD COPD Disease Active Last [facility] (chronic (chronic 12-19 Assessmen [facility] - obstructiv obstructiv 00:00: t & Plan: Medical e e 00 [facility] pulmonary pulmonary d with disease) disease) inhalers. No history of smoking. Asthma Asthma Disease Active [facility] ESRD (end ESRD (end Disease Active [facility] stage stage [facility] renal renal Medical disease) disease) Center Dialysis Dialysis Disease Active [facility] S t patient patient [facility] S/P S/P Disease Active [facility] carotid carotid 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 Family History Family Member Diagnosis Comments Start Date Stop Date Source Natural brother Cancer [facility] Natural daughter Polycystic kidney [facility] Natural father Heart disease [facility] Natural father Heart failure [facility] Natural father Hypertension [facility] Natural mother Cancer [facility] Natural mother Hypertension [facility] Natural sister COPD [facility] Social History Social Habit Start Date Stop Date Quantity Comments Source History of tobacco Current smoker I [facility] Sex Assigned [facility] Tobacco use and 2021-02-10 2021-02-10 Never used [facility] - exposure 00:00:00 00:00:00 Medical [place] Alcohol intake 2021-02-10 2021-02-10 Current [facility] - 00:00:00 00:00:00 non-drinker of Medical Ce nter alcohol (finding) History SDNC 2020-07-29 2020-07-29 1 [facility]uc[facility] Alcohol Frequency 00:00:00 00:00:00 Hospita l History SDOH 2020-07-29 2020-07-29 99 Confucianism Alcohol Std Drinks 00:00:00 00:00:00 Hospit al History SDNC 2020-07-29 2020-07-29 1 [facility]ian[facility] Alcohol Binge 00:00:00 00:00:00 Hospital Smoking Status Start Date Stop Date Source Former smoker 2021-02-10 00:00:00 2021-02-10 00:00:[address] [facility] Medications Ordered Filled Start Stop Current Ordering Indication Dosage Frequency Signature Comments Components Source Medication Medication Date Date Medication? Clinician (SIG) Name Name folic Yes 1{tbl} QD Take [address] acid-multiv 8-19 tablet by Crispin es - itamins 13:26: mouth Medical (NEPHRO-VIT 08 daily. Center E) 0.8 mg Tab tablet levothyroxi Yes 88ug Take [address] ne 8-19 mcg by Lukes - (SYNTHROID, 13:26: mouth Medic al LEVOTHROID) 08 Every Center 88 MCG morning on tablet an empty stomach. sevelamer Yes 800mg Take [address] (RENVELA) 8-19 mg by [facility]ukes - 800 mg 13:26: mouth. Medical tablet 08 Center METOPROLOL Yes 25mg Take [address] TARTRATE 8-19 by mouth. [facility] - ORAL 13:26: Medical 08 Center furosemide Yes 20mg Q.5D Take [address] (LASIX) 20 8-19 by mouth 2 Crispin es - MG tablet 13:26: (two) Medical 08 times Center daily. hydrOXYzine Yes 25mg Take [address] (ATARAX) 25 8-19 by mouth 3 Yuliet kes - MG tablet 13:26: (three) Medic al 08 times Center daily as needed for Itching. aspirin 81 Yes 81mg QD Take [address] MG EC 8-19 by mouth [facility] - tablet 13:26: daily. Medical 08 Center calcium Yes 1{tbl} Q.[id number] Take [address] carbonate 8-19 [id number] tablet by [facility] - (Calcium 13:26: 3D mouth 3 Medica l Antacid) 08 (three) Center 320 mg times calcium daily . (750 mg) Chew docusate Yes 100mg Take [address] sodium 8-19 mg by [facility]ukes - (COLACE) 13:26: mouth 2 Medica l 100 MG 08 (two) Center capsule times daily as needed for Constipati on. ferric Yes Take by [facility] citrate 210 8-19 mouth as Luke s - mg iron Tab 13:26: needed. Med ical 08 Center fluticasone Yes QD Inhale by [facility] -umeclidin- 8-19 mouth via Crispin es - vilanter 13:26: inhaler Medica l (Trelegy 08 daily. Center Ellipta) 100-62.5-25 mcg DsDv fluticasone 2020- No 2{puff} Q.5D Inhale [address] propion-burak 8- 08-19 puffs by Crispin es - meteroL 13:25: 00:00 mouth via Medi rinku 113-14 44 :00 inhaler 2 Center mcg/actuati (two) on AePB times daily. levoFLOXaci 2020- No 250mg Take [address] n 8-05 08-13 tablet [facility]ukes - (Levaquin) 00:00: 23:59 (250 mg Med ical 250 MG 00 :00 total) by Center tablet mouth every other day for 8 days. diphenhydrA 2020- No 25mg Take 25 mg [...] No 100mg Take [address] (VIBRAMYCIN -27 04-27 mg by [facility]ukes - ) 100 MG 16:01: 00:00 mouth. Medica l capsule 29 :00 [place] levoFLOXaci 2020- No 250mg QD Take [address] n - 04-27 mg by [facility]ukes - (LEVAQUIN) 16:01: 00:00 mouth Medic al 250 MG 25 :00 daily. Center tablet predniSONE No 20mg QD Take [address] (DELTASONE) 10-19-27 by mouth Crispin es - 20 MG 16:00: 00:00 daily. Medical tablet 39 :00 [place] metoprolol 2020- No 50mg Q.5D Take [address] tartrate 09-13 03-22 by mouth 2 Luke s - (LOPRESSOR) 16:12: 00:00 (two) Medi rinku 50 MG 09 :00 times Center tablet daily. acetaminoph 2020- No 650mg Place [address] en - 03-22 mg [facility]ukes - (TYLENOL) 16:11: 00:00 rectally Med ical 650 MG 56 :00 every 4 Center suppository (four) hours as needed for Fever. tamsulosin 2020- No .4mg QD Take [address] (FLOMAX) 09-03-11 capsule [facility]ukes - 0.4 mg Cap 00:00: 23:59 (0.4 mg Med ical 24 hr 00 :00 total) by Center capsule mouth daily for 30 days. finasteride 2020- No 5mg QD Take [address] (PROSCAR) 5 09-03-11 tablet (5 Yuliet kes - mg tablet 00:00: 23:59 mg total) Me dical 00 :00 by mouth Center daily for 30 days. oxybutynin 2021-0 2021- No 5mg Q.[id number] Take [address] (DITROPAN) 311 04-10 [id number] tablet (5 [facility]ukes - 5 MG tablet [...] QD Take [address] n 3- 03-16 tablet [facility]ukes - (LEVAQUIN) 00:00: 23:59 (250 mg Med ical 250 MG 00 :00 total) by Center tablet mouth daily for 5 days. atorvastati Yes 40mg QD Take 40 mg Methodi n (LIPITOR) 2-[address] 40 mg 17:27: every Hospita tablet 31 evening. l folic Yes Take by Methodi acid/vit B 2-[address] complex and 17:27: Takes Hospi ta C 31 after l (JADE-MIGUEL ANGEL dialysis ORAL) albuterol Yes 2{puff} Q6H Inhale 2 M ethodi (PROAIR 2-[address] HFA) 90 17:27: every 6 Hospita mcg/actuati 31 (six) l on inhaler hours as needed for wheezing. albuterol Yes 2.5mg Q6H Take 2.5 Met hodi (ACCUNEB) 2-[address] 2.5 mg /3 17:27: nebulizati Ho spita mL (0.083 31 on every 6 l %) (six) nebulizer hours as solution needed for wheezing. levothyroxi Yes 88ug QD Take 88 Met hodi ne 2-[address] (SYNTHROID) 17:27: mouth Hospi ta 88 mcg 31 every l tablet morning. amoxicillin Yes 1{tbl} Q.5D Take 1 Me thodi -pot 2-[address] clavulanate 17:27: mouth 2 Hos arelis (AUGMENTIN) 31 (two) l 875-125 mg times a per tablet day. clopidogreL 75mg QD Take 75 mg Methodi (PLAVIX) 75 07-29- by mouth st mg tablet 15:18: 00:00 daily. Hospi ta 02 :00 l metoprolol 2020- No 25mg Take 25 mg Methodi tartrate 07-29-[address] (LOPRESSOR) 12:06: 00:00 as needed. Hospita 25 mg 31 :00 TAKES ONLY l tablet WHEN BLOOD PRESSURE IS ELEVATED clopidogreL No 75mg QD Take 1 Met hodi (PLAVIX) 75 07-29-07 tablet (75 s t mg tablet 00:00: 05:59 mg total) Ho spita 00 :00 by mouth l daily for 30 days. Please resume plavix 2 days after surgery polyethylen 17g QD Take 17 g Methodi e glycol 07-29- by mouth st (MIRALAX) 00:00: 05:59 daily for Ho spita 17 gram 00 :00 30 days. l packet Take while taking narcotic based pain meds. traMADoL [id number] 50mg Q6H Take 1 Metho di (Ultram) 50 07-29 tablet (50 s t mg tablet 00:00: 05:59 mg total) Ho spita 00 :00 by mouth l every 6 (six) hours as needed for moderate pain for up to 7 days .acute pain. atorvastati 40mg QD Take [address] n (LIPITOR) 02-12 tablet (40 L ukes - 40 MG 00:00: 23:59 mg total) Medica l tablet 00 :00 by mouth Center nightly. clopidogreL 75mg QD Take [address] (PLAVIX) 75 02-12 03-11 tablet (75 L ukes - mg tablet 00:00: 00:00 mg total) Me dical 00 :00 by mouth Center daily. Vital Signs Vital Name Observation Time Observation Value Comments Source Systolic blood 2021-02-10 13:25:00 131 mm[Hg] [facility] Diastolic blood 2021-02-10 13:25:00 65 mm[Hg] [facility] Heart rate 2021-02-10 13:25:00 101 /min [facility] Body temperature 2021-02-10 13:25:00 36.72 Jailyn [facility] Body weight 2021-02-10 13:25:00 78.427 kg [facility] BMI 2021-02-10 13:25:00 27.08 kg/m2 [facility] Respiratory rate 2020-10-27 17:00:00 18 /min [facility] Oxygen saturation in 2020-10-27 17:00:00 98 /min [facility] Arterial blood by Medical Ce nter Pulse oximetry Body height 2020-10-23 02:16:00 170.2 cm [facility] Systolic blood 2020-07-29 16:16:00 136 mm[Hg] [facility] pressure Diastolic blood 2020-07-29 16:16:00 65 mm[Hg] [facility] pressure Heart rate 2020-07-29 16:16:00 90 /min [facility] Body temperature 2020-07-29 16:16:00 37.17 Jailyn [facility] Oxygen saturation in 2020-07-29 16:16:00 95 /min [facility] Arterial blood by Pulse oximetry Respiratory rate 2020-07-29 16:15:00 12 /min [facility] Body height 2020-07-29 11:29:00 177.8 cm [facility] Body weight 2020-07-29 11:29:00 82.3 kg [facility] BMI 2020-07-29 11:29:00 26.03 kg/m2 [facility] Procedures Procedure Date / Time Performing Clinician Source Performed URINE CULTURE, ROUTINE 2021-01-13 15:02:[address] [facility] URINE CULTURE, ROUTINE 2020-11-04 15:40:[address] [facility] UA/M W/RFLX CULTURE, 2020-11-04 15:40:00 Sebas Huang [facility] MICROSCOPIC EXAMINATION 2020-11-04 15:40:00 Sebas Huang CH, I [facility] PREPARE LEUKO-REDUCED 2020-10-28 23:54:00 Jluis Parker [facility] RBC [facility] TRANSFUSE LEUKO-REDUCED 2020-10-27 11:34:36 [facility] HEMODIALYSIS INPATIENT 2020-10-27 07:47:37 [facility]OLIC PANEL 2020-10-27 04:39:00 Sebas Huang [facility] (7) [facility] CBC W/PLT COUNT & AUTO 2020-10-27 04:39:00 Suzan Magdaleno [facility] DIFFERENTIAL [facility] BASIC METABOLIC PANEL 2020-10-26 03:41:00 Sebas Huang [facility] (7) [facility] CBC W/PLT COUNT & AUTO 2020-10-26 03:41:00 Suzan Magdaleno [facility] DIFFERENTIAL [facility] TISSUE EXAM 2020-10-25 18:39:00 Sebas Huang [facility] CYSTOSCOPY,INSERTION 2020-10-25 17:37:00 Sebas Huang [facility] - URETERAL STENTS [facility] POTASSIUM 2020-10-25 13:16:[address] [facility] HEPATITIS B SURFACE 2020-10-25 09:18:00 Robert Hector [facility] ANTIBODY [facility] HEMODIALYSIS INPATIENT 2020-10-25 08:42:58 Robert Hector [facility] BASIC METABOLIC PANEL 2020-10-25 06:09:00 Sebas Huang [facility] (7) [facility] PHOSPHORUS 2020-10-25 06:09:00 Robert Hector [facility] CBC (HEMOGRAM ONLY) 2020-10-25 06:09:00 [facility] TYPE AND SCREEN, 2020-10-24 13:45:[address] Yuliet kes - AUTOMATED [facility] HEPATITIS B SURFACE 2020-10-23 14:18:00 Tawny Robert CHASITY Cadena L ukes - ANTIGEN [facility] HEMODIALYSIS INPATIENT 2020-10-23 11:41:00 Tawny Robert camacho kes - [facility] BASIC METABOLIC PANEL 2020-10-23 04:31:00 Yuliet LyndseyTimmyManuel CHASITY Cadena [facility] - (7) Medical Center CBC W/PLT COUNT & AUTO 2020-10-23 04:31:00 Rayshawn Otero [facility] - DIFFERENTIAL [facility] SARS-COV2/RT-PCR ([facility] & 2020-10-22 23:20:[address] [facility] - REF LABS) [facility] CT ABDOMEN/PELVIS WITH 2020-10-22 21:31:00 Rayshawn Otero [facility] Marybeth - IV CONTRAST [facility] CBC W/PLT COUNT & AUTO 2020-10-22 21:12:00 [facility] GASPAR S t Marybeth - DIFFERENTIAL [facility] URINE CULTURE 2020-10-22 11:48:00 Sebas Huang [facility] - [facility] BASIC METABOLIC PANEL 2020-10-22 11:48:00 Sebas Huang [facility] - (7) [facility] CBC W/PLT COUNT & AUTO 2020-10-22 11:48:00 Sebas Huang [facility] - DIFFERENTIAL [facility] PT/APTT 2020-10-22 11:48:[address] [facility] - [facility] TYPE AND SCREEN, 2020-10-22 11:48:00 Sebas Huang CHI kes - AUTOMATED [facility] CT ABDOMEN/PELVIS WITH & 2020-09-21 13:12:00 Sebsa Huangkes - WITHOUT IV CONTRAST [facility] er MR ABDOMEN WITHOUT IV 2020-09-02 11:20:00 Sebas Huang [facility] - CONTRAST [facility] MR PELVIS WITHOUT IV 2020-09-02 11:20:00 Sebas Huang [facility] - CONTRAST [facility] TISSUE EXAM 2020-08-31 12:53:00 Reina, Sebas [facility] FL FLUORO NON-SPECIFIC 2020-08-31 12:50:00 [facility] CYSTOSCOPY,INSERTION 2020-08-31 11:42:00 Sebas Huang CHI S t Lusandra - URETERAL STENTS [facility] CBC W/PLT COUNT & AUTO 2020-08-31 04:50:00 Arianna Whitt [facility] COMPREHENSIVE METABOLIC 2020-08-31 04:50:00 Pedro Farris CH I [facility] MAGNESIUM 2020-08-31 04:50:00 [facility] NM MYOCARDIAL PERFUSION 2020-08-30 16:44:00 Sebas Huang [facility] - SPECT, PHARM(LEXISCAN) [facility] enter HEMODIALYSIS INPATIENT 2020-08-30 11:55:05 Jluis Parker [facility] CBC W/PLT COUNT & AUTO 2020-08-30 05:14:00 Onochie, Arianna [facility] LIPID PANEL 2020-08-30 05:14:00 Ty, [facility] 2D ECHO W/ DOPPLER 2020-08-29 13:22:39 Ty, [facility] (CW/PW/COLOR) [facility] T4, FREE 2020-08-29 12:22:00 Ty, [facility] TSH 2020-08-29 12:22:00 Ty, [facility] FERRITIN 2020-08-29 12:22:00 Ty, [facility] VITAMIN B12 2020-08-29 12:22:00 Ty, [facility] PSA 2020-08-29 12:22:00 Ty, [facility] US RENAL COMPLETE 2020-08-29 11:15:00 Sebas Huang [facility] CT BRAIN WITHOUT IV 2020-08-29 05:02:00 Steve Welsh CH [facility] TROPONIN I 2020-08-29 04:21:00 [facility] BASIC METABOLIC PANEL 2020-08-29 04:21:00 Jose Eduardo [facility] (7) [facility] CBC W/PLT COUNT & AUTO 2020-08-29 04:21:00 Jose Eduardo [facility] RETICULOCYTE COUNT 2020-08-29 04:21:00 Derek Humberto [facility] OCCULT BLOOD, STOOL 2020-08-29 02:52:00 Owen Jhaveri [facility] TROPONIN I 2020-08-28 16:08:00 [facility]an [facility] HEPATITIS B SURFACE 2020-08-28 16:06:00 Keith [facility] HEPATITIS B SURFACE 2020-08-28 15:26:00 Keith [facility] HEMODIALYSIS INPATIENT 2020-08-28 11:36:37 [facility] TROPONIN I 2020-08-28 05:56:00 [facility]an [facility] CBC W/PLT COUNT & AUTO 2020-08-28 05:56:00 Pedro Farris [facility] BASIC METABOLIC PANEL 2020-08-28 05:56:00 Pedro Farris [facility] () [facility] ECG 12-LEAD 2020-08-28 01:21:18 Unknown, Hl7 [facility] HEMOGLOBIN A1C 2020-08-28 01:19:00 Emilio [facility] URINE CULTURE 2020-08-28 01:05:00 [facility] URINALYSIS W/ REFLEX 2020-08-28 01:05:00 Owen Jhaveri [facility] CBC W/PLT COUNT & AUTO 2020-08-28 01:05:00 Owen Jhaveri [facility] COMPREHENSIVE METABOLIC 2020-08-28 01:05:00 Janette Jhaveri [facility] MAGNESIUM 2020-08-28 01:05:00 Owen Jhaveri [facility] PHOSPHORUS 2020-08-28 01:05:00 [facility] PROTHROMBIN TIME/INR 2020-08-28 01:05:00 Owen Jhaveri [facility] HEPATIC FUNCTION PANEL 2020-08-28 01:05:00 Emilio [facility] LIPID PANEL 2020-08-28 01:05:00 Owen Jhaveri [facility] REPORT OF PROCEDURE - 2020-08-27 00:00:00 Provider, Yoko [facility] ENDOSCOPY SCAN Scanning [facility] [place] AN ELECTIVE 2020-07-29 14:11:47 Rafael Blas spital ENDOTRACHEAL AIRWAY THROMBECTOMY, GRAFT, AV 2020-07-29 13:39:00 Jose Keen [facility] POTASSIUM, SYRINGE 2020-07-29 13:00:00 Jose Keen [facility] POTASSIUM, SYRINGE 2020-07-29 12:11:00 Jose Keen [facility] HEMOGLOBIN, SYRINGE 2020-07-29 12:11:00 Jose Keen [facility] GLUCOSE LEVEL, SYRINGE 2020-07-29 12:11:00 Jose Keen [facility] ECG PRE/POST OP 2020-07-27 21:26:54 Rose Garcia [facility] HEMOGLOBIN A1C 2020-07-27 21:19:00 Rose Garcia [facility] HEMOGLOBIN 2020-07-27 21:19:00 Jose Keen [facility] POTASSIUM LEVEL 2020-07-27 21:19:00 KeenJose Jey [facility] GLUCOSE LEVEL 2020-07-27 21:19:00 [place] Jose Jey [facility] COVID-19 QUALITATIVE 2020-07-27 20:57:00 Jose Keen [facility] RT-PCR RHYTHM STRIP - SCAN 2020-02-19 12:30:59 Provider, Default [facility] Plan of Care Planned Activity Planned Date Details Comments Source Future Scheduled 2021-08-[address] [facility] - Test 00:00:00 malignant neoplasm of Medica l Center colon (procedure) [code = 202494299] Future Scheduled 2021-02-23 INFLUENZA VACCINE (#1) [facility] Test 00:00:00 [code = INFLUENZA Medical Ce nter VACCINE (#1)] Future Scheduled 2011-05-[address] [facility] - Test 00:00:00 WELLNESS (YEAR 2 or Medical Center FIRST YEAR if no IPPE) [code = MEDICARE ANNUAL WELLNESS (YEAR 2 or FIRST YEAR if no IPPE)] Future Scheduled 2010 PNEUMOCOCCAL 65+ YRS [facility] - Test 00:00:00 (1 of 1 - Medical Center [id number] PCV13) [code = PNEUMOCOCCAL 65+ YRS (1 of 1 - [id number] PCV13)] Future Scheduled 1995 SHINGLES VACCINES (1 [...] [code = HEPATITIS C Medical Center SCREENING] Future Scheduled Hepatitis C screening [facility] Test (procedure) [code = 847850645] Future Scheduled COLONOSCOPY SCREENING Me [facility] Test [code = COLONOSCOPY SCREENING] Future Scheduled SHINGLES VACCINES (#1) [facility] Test [code = SHINGLES VACCINES (#1)] Future Scheduled COVID-19 VACCINE (2 - [facility] Hospital Test Pfizer 2-dose series) [code = COVID-19 VACCINE (2 - Pfizer 2-dose series)] Future Scheduled INFLUENZA VACCINE Method ist Hospital Test [code = INFLUENZA VACCINE] Encounters Start End Encounter Admission Attending Care Care Encounter Source Date/Time Date/Time Type Type Clinicians Facility Department ID 2021-02-17 2021-02-17 Telephone Reina [facility] [id number] [id number] [facility]00 00[facility]00[facility]00 [facility] 2021-02-10 2021-02-10 Procedure Reina [facility] [id number] [id number] 13:12:47 14:02:58 visit [facility] 2021-01-27 2021-01-27 [id number] [id number] 00:[facility]00 00:00:00 Only [facility] 2021-01-13 2021-01-13 [facility] [id number] [id number] 08:59:50 10:28:11 Visit [facility] 2020-12-07 2020-12-07 [facility] [id number] [id number] 09:28:24 11:43:01 Visit [facility] 2020-12-02 2020-12-02 Telephone Reina [facility] [id number] [id number] 00:[facility]00 00:00:00 [facility] 2020-11-04 2020-11-04 [facility] [id number] [id number] 08:50:13 10:38:54 Visit [facility] 2020-10-22 2020-10-27 [facility] Rayshawn Otero [facility] [id number] [facility] 20:30:00 17:53:00 Encounter Pedro Farris [facility] 2020-10-25 2020-10-25 Anesthesia Cuauhtemoc Dixonuwakayo [facility] [id number] [facility] 17:37:00 18:41:00 Event Emili Oliveira [facility] 2020-10-25 2020-10-25 Surgery [facility], [facility] [facility] [id number] 13:30:00 14:45:00 [facility] 2020-10-23 2020-10-23 Travel [facility] [id number] [facility] 00:[facility] 00:[facility]:00 [facility] 2020-10-22 2020-10-22 [facility] [id number] 11:47:21 20:29:00 Encounter [facility] 2020-10-19 2020-10-19 Travel [facility] [id number] [facility] 00[facility]00 [facility] 2020-10-19 2020-10-19 [facility] [id number] [id number] [facility] 00:[facility]00 00:00:00 [facility] 2020-10-06 2020-10-06 [facility] [id number] [id number] 00[facility] 00:00:00 [facility] 2020-09-30 2020-09-30 Office [facility] [id number] 13:08:05 14:49:10 Visit [facility] 2020-09-21 2020-09-21 [facility] [id number] 12:18:35 23:59:00 Encounter [facility] 2020-09-16 2020-09-16 Outside [facility] [id number] 00:00:00 00:00:00 Orders [facility] 2020-09-13 2020-09-13 Office [facility] [id number] 15:09:40 17:08:47 Visit [facility] 2020-08-27 2020-09-02 Hospital Pedro Farris [facility] [id number] [id number] 22:17:00 14:43:00 Encounter robbie [facility] 2020-08-31 2020-08-31 Anesthesia Cuauhtemoc Dixon [facility] [id number] [facility] 11:42:00 13:11:00 Event Carroll Burton [facility] 2020-08-31 2020-08-31 Surgery Reina [facility] [id number] [facility] 11:00:00 12:15:00 [facility] 2020-08-28 2020-08-28 Orders [facility] [id number] 00:00:00 00:00:00 Only [facility] 2020-08-27 2020-08-27 Travel [facility] [id number] [facility] 00:[facility]00 00:00:00 [facility] 2020-08-26 2020-08-26 Office Kayden 1.2.840.8 [id number] 21 [id number] Methodi 14:27:45 16:08:33 Visit Jose Rodgers 38807.1.[address] 3.430.2.7 Hospit a .3.239827 l .8 2020-08-26 2020-08-26 Travel 1.2.840.1 1.2.918.099 [id number] [facility]i 00:00:00 00:00:[address] 3.430.2.7 0.2.7.3.698 Ho spita .3.631131 084.8 l .8 2020-08-26 2020-08-26 Outpatient [facility] [id number] [place] 00:00:00 00:00:00 JOSE [address] 2020-08-02 2020-08-02 Travel 1.2.840.1 1.2.052.748 [id number] [facility]i 00:00:00 00:00:[address] 3.430.2.7 0.2.7.3.698 Ho spita .3.592743 084.8 l .8 2020-07-30 2020-07-30 [facility], 1.2.840.2 [id number] Methodi 00:00:00 00:00:[address]279.1.[address] 3.430.2.7 Hospit a .3.727410 l .8 2020-07-29 2020-07-29 [facility] 1.2.840.1 [id number] 21 [id number] Methodi 05:10:00 11:27:00 Encounter Jose Rodgers 18886.1.[address] 3.430.2.7 Hospit a .3.129670 l .8 2020-07-29 2020-07-29 [facility] 1.2.840.1 [id number] Methodi 07:30:00 09:25:00 Jose RJey 31545.1.[address] 3.430.2.7 Hospit a .3.900184 l .8 2020-07-29 2020-07-29 Anesthesia Saud Villatoro 1.2.840.1 [id number] Methodi 07:40:00 09:17:00 Event Rose Garcia 65035.1.[address] 3.430.2.7 Hospit a .3.911323 l .8 2020-07-29 2020-07-29 Travel 1.2.840.1 1.2.524.950 [id number] Methodi 00:00:00 00:00:[address] 3.430.2.7 0.2.7.3.698 Ho spita .3.031724 084.8 l .8 2020-07-29 2020-07-29 Psychiatric Damaris, 1.2.840.1 [id number] 21 [id number] Methodi 00:00:00 00:00:00 Only Derrikc Jeong 01501.1.[address] 3.430.2.7 Hospit a .3.271887 l .8 2020-07-29 2020-07-29 Outpatient [facility] 021 [id number] [place] 00:00:00 00:00:00 JOSE [address] 2020-07-27 2020-07-27 Pre-Admiss Kayden, 1.2.840.1 [id number] Methodi 14:35:19 15:35:19 ion Jose Rodgers 03554.1.[address] Testing 3.430.2.7 Hospit a .3.886068 l .8 2020-07-27 2020-07-27 [facility] 2099 [id number] [place] 00:00:00 00:00:00 JOSE [address] 2020-07-27 2020-07-27 Travel 1.2.840.1 1.2.700.842 [id number] Methodi 00:00:00 00:00:[address] 3.430.2.7 0.2.7.3.698 Ho spita .3.003772 084.8 l .8 2020-07-23 2020-07-23 Telephone Kayden, 1.2.840.8 [id number] Methodi 00:00:00 00:00:00 Jose Rodgers 97707.1.[address] 3.430.2.7 Hospit a .3.959860 l .8 2020-07-23 2020-07-23 Travel 1.2.840.1 1.2.124.459 [id number] Methodi 00:00:00 00:00:[address] 3.430.2.7 0.2.7.3.698 Ho spita .3.563711 084.8 l .8 2020-07-22 2020-07-22 Office Kayden, 1.2.840.4 [id number] 21 [id number] Methodi 14:38:20 15:37:56 Visit Jose Rodgers 99192.1.[address] 3.430.2.7 Hospit a .3.547937 l .8 2020-07-22 2020-07-22 Outpatient [facility] [id number] [place] 00:00:00 00:00:00 JOSE [address] 2020-07-21 2020-07-21 Travel 1.2.840.1 1.2.690.569 [id number] Methodi 00:00:00 00:00:[address] 3.430.2.7 0.2.7.3.698 Ho spita .3.003317 084.8 l .8 2020-02-26 2020-02-27 Office Kristina [facility] [id number] [facility] 10:18:16 10:14:49 Visit [facility] Results Test Description Test Time Test Comments Results Result Comments Source URINE CULTURE, ROUTINE 2021-01-15 04:06:00 Test Item Value Reference Range Interpretation Comme nts Urine Culture, Routine SEE NOTE CUL TURE, URINE, ROUTINE (test code = 9926674) Micro Number: [id number] Test Status: Final Specimen Source : URINE Specimen Qualit y: Adequate Result: Growth of mixed ramírez was isolated, suggesting probable contam ination. No further testing will be per formed. If clinically weston cated, starr llection using a method to minim ize contamin ation, with prompt transfer to Urine Cu lture Transport Tube, is recomm ended. ТАТЬЯНА (test code = ТАТЬЯНА) COULD NOT GET AN ANSWER AT DR OFFICE TO VERIFY TEST 682065 [facility] W/RFLX CULTURE, [id number] 22:06:00 Test Item Value Reference Range Interpretation Comments Specific [place], UA 1.014 1.005-1.03 (test code = 2965-2) pH, UA (test code = >=9.0 5.0-7.5 A 5803-2) Color, UA (test code [place] Yellow = 9796-4) Appearance (test code Cloudy Clear A = ) WBC Esterase (test 1+ Negative A code = 0770077) Protein, UA (test 3+ Negative/T A code = 52080-8) Glucose, Urine (test Trace Negative A code = 94642-9) Ketones, UA (test Negative Negative code = 2514-8) Blood, UA (test code 3+ Negative A = 24803-5) Bilirubin, UA (test Negative Negative code = 5770-3) Urobilinogen,Semi-Qn 0.2 mg/dL 0.2-1 (test code = 3703147) Nitrite, UA (test Negative Negative code = 69793-4) Microscopic See below: Microscopic was Examination (test indicated and was code = 2125839) performed. Urinalysis Reflex Comment This speci men has (test code = 8103077) reflex ed to a Urine Culture. ТАТЬЯНА (test code = ТАЬТЯНА) Performed at: [address] [place] [address] [id number] Director: Claderon Silver MD, Phone: [phone] Lab Interpretation Abnormal (test code = 53259-9) [facility] [id number] 22:06:00 Test Item Value Reference Range Interpretation [...] ТАТЬЯНА (test code = ТАТЬЯНА) Performed at: [facility] [id number] Director: Calderon Silver MD, Phone: [phone] Lab Interpretation Abnormal (test code = 95060-2) [facility] Leuko-Red [id number] 23:54:00 Test Item Value Reference Range Interpretation Comments CROSSMATCH (test code = 2264) COMPATIBLE Unit ABO (test code = O Pos 7584644) UNIT NUMBER (test code = [id number] 934-0) Status (test code = 6569878) TX_TIMEINCHART Blood Bank Product (test code RED BLOOD CELLS = 2263) PRODUCT CODE (test code = G3446C98 933-2) [facility] [id number] 10:04:00 Test Item Value Reference Range Interpretation Comments Case Report (test code Surgical Pathology = 104) Report Case: [id number] Authorizing Provider: Sebas Huang, Collected: 10/25/2020 06:39 PM Ordering Location: [address] Med/Surg Received: 10/26/2020 07:45 AM Pathologist: Ariana Victor MD Specimens: A) - Bladder Tumor, Bladder clots and right ureteral tumor B) - Bladder Biopsy, Left Wall, left bladder wall C) - Bladder Biopsy, Wall, posterior bladder wall DIAGNOSIS (test code = h7lliJGqVYZeu6jwFAGwbL 3220) FuZzEwMzNcZnRuYmpcdWMx IHtccnRmMVxlcGljOTIwMl rdxtZvLMVilAAaM7Qatpac HCbwZQ7sXQ4bjOphgSMkhP JwSVCzSdSmd4myb150gUEt t3kcNWCNagzuwGl3yIzqB7 9ef1K6FwgzL52dcGTkGIsd bGFpblxmczIwIEEuIEJMQU XTXEZxT0rGDXExWA2YQXWL W7cQJTFSLWPEQyANZZKWDT 5EOVKDHZ7YQ7x7IJDawrWx YREbZLlTW8hkC9TJXFIdVL RKAGaORIlERCTGXGGVGG5H AYKeKC2zVVYPPGSQV0RPDW 3FKC4CNDgFCQ2CXthKV9Sn WB9YY3MCK7dKBEOEAPJQZc FOVUxBVElPTiBUSVNTVUUg Sh0CEUSDNP1XHJTgwaIxXV ObQNUZFP4WJWrZXoXHKWIf QI2UQhGKDIDINYIJFFGPWS 1JTkEgUFJPUFJJQVxwYXIg ICAgLSBOTyBERUZJTklUSV WAML2HV7RWZPOZQVIsYCKG CXPZVBUEJeCCCaGXMP7NLA PLBpQRDcAOWFYUWB3JSPVq eibbADMbIn8lWLXCSJKHYR GQQCMYLNpSFIjsNXEOS8WB ZNgneBJyLGLvII4zBPZQXD hCRKbZZSRRLPYMW4RiVV2Q U6ZZUCERQCQYGzZEDWbCM5 6BHfIIYAPsggOwPDOwOO4W KP5GJ9BYXVWGNUMrPXJAUO JFEYSLVqAMShVWYX5YSXTZ CaSGVvSAKFUOEU5LCPQqwD KkMBBcukLJTqZXI7ZVEAJS N2CdHpqYOMYJVnUNBAdWAX SQCS4EH3c2TQTrqzGlTKWb UOABD6OCLVlWQOkoZDYIF7 SDOVOFYHhYEJxRRZEXH6Fm ZGCLNXxYOH3UUQQbwMXcRB XvGB3mATOTQ4ETKDIIUhHO Ac3ALokGKPxYJGYAKAQLHb YcsXGmFWLxntURSe1qiEgl NTB8s9yywHCmVJOjiYHjET AwMFxhbnNpXGRlZmxhbmcx IXEjSVA5bgTuGMEoPIebAJ GxXCoyNa3nmLMzyOxrYkAk INDcr0boeoFLwbadgJm7y2 orDWXaNmZ1nOHaZGnpK4pg jqAfiWGsZPIaSUv8fO32QX ZrwL8ugBFqMHmhkeGrIsS9 YEviNJSoGjI7UVOsnBKzXT SsF9rdXFCsQKgdPGBnTAfb wVGwCXQ2aSgui5A1wCKzrD PpwHltByRnYoOdOoYEm3Fx EEn4rIqvT5GqQYIhCsD4nK QgUGFyYWdyYXBoIEZvbnQ7 cQ87NHtpnzN4cWImx7Ruv0 5zx916bJ3upGGjERR1RNNg JQHkdTCdDJCsYRF4RMGzxX YhH6ppNCSuGG0myeruFLbh KPhgUFIgmHK5THBraXUfT4 YmWRUvSOrgIOEruvg0ZcVp Kt3ueELnaAaoRAfcl9gfw8 teaQZxLex8EFAoVdWmCkfo VIvnu5Hcn0ifGZGepm2fZZ R8oVPhaBxof1Z7sVPoOVAo vFEnDQYwSG0pwHCxHGPchO 5ucmxjXHBnYnJkcmhlYWRc oTugduAnXy8hjBjmUYA0KP gyB2nfrV4wMbY8ZSksZ4so dW6uQXg9OVmcXUXaeDG1js A6PVFuyYGoK2BvzA4fTXTa PT1zjpi1f0sgHOR3SFglHD BvOkT7ciN8IJIqxFMpBSHh nAugDTutg974PJA5RjFsHU Hsi2CmE6VphZgiK82psHsz W71zHYKbvKjgoO9pkItpxQ 5qEsGwXoYtTQpcwXsmQM3a KAUvZ0cttJSpVROqQJHhG9 tvWiJsbW8ipPngAUufblBi GCVyXmf9ZRPlsSIrLPHoJz e2JFKnATMyJ75pxgqdIZY4 fC6nt6fyw8DaEMcbASC3UV Hxp66dUOoortB0JKecSa33 FIpqTqX9EAqoKGT9iV== CPT Code(s) (test code x4mbwGYzJOOhwKR1IpLjFT = 3357) Xwr5nyi9HreANkfVGzWQbp tIBkbbZjur57kVY7iR49CG 7fTJZeVdQ4TKOfgwN0Clr8 UEGaMLGzhZMzZ695p2qeb0 kditMgcRF5gTrzRUXkMJLi YWluXGZzMjAgODgzMDUgeD NccGFyfQ== CLINICAL HISTORY (test o2owdRDuHDUztRG0NxVqNE code = 3356) Rsm4als0JpkQPbbWCgSSmz cGBcrwIqsf15gIS3lX97NY 8pJZJyBgQ7REKgdnT0Sxx7 LEFjIRYnuQSoQ474x4evy7 lpdeXudWF8sUwsFPRuDGUh EPdwDOSvRaZjVHQqWVM5zp fhZALgk0MgI3xgdSXeMQQ5 oUPnRUShXIJtaoSdUCB8qF 7gFJEoub1= SPECIMEN SOURCE (test l6fegCHvBQHlnVA8JkNcUC code = 3377) Ylx4cem9SrrIFwuWRyKPuj rAQnocBslq77sRP4aZ84YJ 1wOSZmQsF1YSYngnG9Mzg5 LAPwJGUspKCqU662d4qcx7 lwzqXrhAL6wEzyFYRtWZHr RDfhAVJgJnWmZI4lVxrqGB KqpwFtyB11oyQfyxWifvez aHQgdXJldGVyYWwgdHVtb3 D3BZXcXNqrHhRiSyybQZWu rkV3TZyfOjQLTfINu2W8IL Ktu0YgWdbwNDShkxP3QVnq XHBhcn0= GROSS DESCRIPTION (test e6bzcHFzCVUfzMG3BjPmRB code = 3366) Kjy1jjt7EblYZrtCOgRGhj uXJblxUjlx08hNC7sN73GM 5iRDZrOoR9NUFbpzI3Eod9 EBXnIEYprMQcG225y7mbh8 sqgkMlrML5nXxkOQQtFKKd IYsjPFHmRpFtD1TlB1ncZZ 4gQSBpcyByZWNlaXZlZCBp yhYgaJmmyBm3RLPeelEcwD DqSKblLAX7dCBuWMTePHFj LXRlYJ90S0PrvdVtATthoW VkaWNhbCByZWNvcmQgbnVt QbLqEZEbLJSeAXZnE73vwH VkIGFzICJibGFkZGVyIHR1 oS0kKsHrsdXnC92lw9trgU Vza4LxsKOmuGlfhGZdmpIh PAHhx7saMVHve2D7BTFmdd WfgLKdjHNkbPSsd5SqfY6q ZTbjIWG5CHOxOVB5SXAfEY UzgT2kESctIYArJPAieLXo JJjkZHXojJOyx9QcRGXaGO DbrHubVN76xTzjy1NpUhum o1UgA4pdsJ4mPa0xYTpcgO xvm5KbYLRgHZvlQQ20ddQf cmUgaWRlbnRpZmllZCBtZW JztXNezdzrUG47UQitDZ9o FUqnJW44PXAeJTpqCGAqG7 PiV6O8BW0yRZjmAJXop9P4 ZSBmcmFnbWVudHMgYXJlIG MomWfpXLh1VIT0Tf6ecSZk ZCBpbnRvIEExIHRvIEEyIG FuZCByZXByZXNlbnRhdGl2 VYXpTWI7zK9fjbZiKpM8qJ SbIbmwl1MnU3tqoBScfwIx b6VgbAj9bBMfGSikxQ1hTN MuICBccGFyXHBhciBTcGVj gX5rvyEKIKmdSKZzF7Wxui MeRRtrFLIfhBD6fEOzUZFk ZCBsYWJlbGVkIHdpdGggdG mzUPSfqSsizdVbsdOeTN6g XJClTHBeS0CcCXSzP88nAD QwvM1eCWZzHU9aLFFuu5bl emL2FLHbFJRcJmRcCVJsGK NiHvxmmIQ1JQeuHeWlb6Vf mPUzFR8hXRRowmJoh5AlWU 8hWPVllNopnx18TN4miZkk u6SoCXVqIQzzXQ74sgL0dP I0LHxqSYYjHEMwqCEvrnYe gdAosGBbnCXumN7vxkQnq9 1jWEZuIDF4fHOxmATmXdEd B67qczIrbWKvIF00fPRlyQ fla0ZnaVd5aYLxXRzomY9d QjEuIFxwYXJccGFyIFNwZW NpbWVuIEMgaXMgcmVjZWl2 IEZwuY5sHrt1JJLngqKdHM 1cDBnhNzTyEEAdv8w5cTZ0 iVXowVN1pIWfzIklXI6xvJ HcSJ5xSRhcFCrqffFkm1Uh OF95wFGudhZwyyHpTZWwiT duYXRlZCBhcyAiYmxhZGRl twVetQ8ph6fze7VbbOEvBS 8bYIWtbtZtn8AeTA8dHUXy jCznvo85NJ3uoHjtj6EgTG HgQSjlKB58THHaFXXuyUXb PS89LCNsCHngGRzhRUV4TJ R2GBHwnSAlx6xvxw9kCNhl LAAol6Z5NTBudzFwhCIhkR BpcyBlbnRpcmVseSBzdWJt hUJ5LRHcmA73ynTUBQ4gMQ CVKe0jdQBnxEBthL== MICROSCOPIC DESCRIPTION x3btbPOgUGTevAE3SkUxLP (test code = 3371) Crg1uxh3TxnZNjsRNgZEqb eXIqnoSdyk73iJB2gN46CW 4tVKYgYxY7OMUdjoG1Ryn0 VCIuCJUivUAtR503i2fci2 cutsCaxFR3rUuvOIMcFMOh RZxkUGZeGpOzES3CCpNTPM Wel5KoLGVbDEZqkk9= Gross assessment was [facility] performed at ([facility], Department = 2777) of Pathology, [facility] [place] [address], Technical component was [facility] performed at ([facility], = 2778) Department of Pathology, [address] [place] [address], Professional component [facility] was performed at ([facility], Department code = 2779) of Pathology, [address] [place] [address], [facility] [id number] 10:04:00Surgical Pathology Report Case: [id number] Authorizing Provider: Sebas Huang, Collected: 10/25/2020 06:39 PM [facility]ingLocation: [facility] 04A Med/Surg Received: 10/26/2020 07:45 AM Pathologist: [...] IS PRESENTMG/pl Signing Pathologist Direct Phone Line: [phone] signed by Ariana Victor MD on 10/27/2020 at 10:04 [id number] unspecified type, ureteral tumorA. Bladder clots and [...] entirely submitted into A1 to A2 and collections representative sections of the blood clot are [...] entirely submitted into C1. MG/pl A-C: Performed [facility], Department of Pathology, [address] [place] [address], [facility], Department of Pathology, [address] [place] [address], [facility], [address] [place] [address], [facility] [id number] 05:29:00 Test Item Value Reference Range Interpretation Comments Sodium (test code = 139 meq/L 496-561 4964-2) Potassium (test code = 5.1 meq/L 3.6-5.5 2823-3) Chloride (test code = 102 meq/L 98-106 2075-0) CO2 (test code = 26 meq/L 20-29 2028-9) BUN (test code = 32 mg/dL 10-26 H 3094-0) Creatinine (test code 9.44 mg/dL 0.5-1.2 H = 2160-0) Glucose (test code = 107 mg/dL 70-110 2345-7) Calcium (test code = 8.8 mg/dL 8.5-10.5 50384-8) EGFR (test code = 5 mL/min/1.73 [place] [address]-1) NOT ACCURATE CREATININE CLEARANCE IN PREDICTING GLOMERULAR FILTRATION RATE . ESTIMATED GFR I S NOT APPLICABLE FOR DIALYSIS PATIENTS. ТАТЬЯНА (test code = ТАТЬЯНА) Field Merchandiser ID - [id number] ID - roao07Pckqttyt ID - [id number] ID - tvlo25Ythjqbyv ID - rhso20Bkhumnbx ID - wlpn95Jrfbogga ID - oqch38Adobsqms ID - ljen07Hjtnomdy ID - bxkt41Dgmcdgnk ID - mmku73Mbxznbgl ID - qvgc41Bkghollu ID - ojlb51Jcgguemn ID - [id number] Lab Interpretation Abnormal (test code = 31472-1) [facility] METABOLIC [id number] 05:29:00 Test Item Value Reference Range Interpretation [...] S 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 Field Merchandiser ID - rila17Ndughhtl ID - [id number] ID - xssv40Ljxrkgyt ID - iied57Zktjxozh ID - pbms73Yobgiccu ID - dfcy61Mohflpjo ID - sdjf13Vhmnjgsk ID - cmqe04Wbumyihn ID - kbbo70Kusduvkg ID - sowf18Wuqvhunm ID - dgxn07Ygywrbcd ID - jcmk38Uyphimgg ID - [id number] with platelet count + automated [id number] 05:09:00 Test Item Value Reference Range Interpretation Comments WBC (test code = 6690-2) 7.6 See_Comment [A utomated message] The system [employer] generated this result transmitted ref erence range: 4.0 - 10 .0 K/L. The refe rence range was not u sed to interpret this result as normal/abnor mal. RBC (test code = 789-8) 2.28 See_Comment L [Au tomated message] The system [employer] generated this result transmitted ref erence range: 4.20 - 5 .80 M/L. The refe rence range was not u sed to interpret this result as normal/abnor mal. MCHC (test code = 786-4) 31.3 See_Comment L [A utomated message] The system [employer] generated this result transmitted ref erence range: [...] See_Comment [Aut omated message] 777-3) The system [employer] generated this result transmitted ref erence range: 150 - 43 0 K/CU MM. The referen ce range was not u sed to interpret this result as normal/abnor mal. MPV (test code = 9.6 fL 6-11.5 78513-6) nRBC (test code = 413) 0 See_Comment [Aut omated message] The system [employer] generated this result transmitted ref erence range: [...] See_Comment [Aut omated message] 670) The system [employer] generated this result transmitted ref erence range: 1.80 - 8 .00 K/L. The refe rence range was not u sed to interpret this result as normal/abnor mal. # Lymphs (test code = 1.26 See_Comment L [Auto mated message] 414) The system [employer] generated this result transmitted ref erence range: 1.48 - 4 .50 K/L. The refe rence range was not u sed to interpret this result as normal/abnor mal. # Monos (test code = 0.84 See_Comment [Autom ated message] 415) The system [employer] generated this result transmitted ref erence range: 0.00 - 1 .30 K/L. The refe rence range was not u sed to interpret this result as normal/abnor mal. # Eos (test code = 416) 0.25 See_Comment [Au tomated message] The system [employer] generated this result transmitted ref erence range: 0.00 - 0 .50 K/L. The refe rence range was not u sed to interpret this result as normal/abnor mal. # Baso (test code = 417) 0.03 See_Comment [A utomated message] The system [employer] generated this result transmitted ref erence range: 0.00 - 0 .20 K/L. The refe rence range was not u sed to interpret this result as normal/abnor mal. Immature 1 % 0-0 H Granulocytes-Relative (test code = 2801) Lab Interpretation (test Abnormal code = 05096-3) [facility] W/PLT COUNT & AUTO [id number] 05:09:00 Test Item Value Reference Range Interpretation [...] (BEAKER) (test code = 2801) BASIC METABOLIC [id number] 05:21:00 Test Item Value Reference Range Interpretation [...] S 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 Field Merchandiser ID - LITOOperator ID - LITOOperator ID - LITOOperator ID - LITOOperator ID - LITOOperator ID - LITOOperator ID - LITOOperator ID - LITOOperator ID - LITOOperator ID - LITOOperator ID - LITOOperator ID - LITOOperator ID - LITOCBC W/PLT COUNT & AUTO [id number] 04:38:00 Test Item Value Reference Range Interpretation [...] (test code = 2801) Hepatitis B surface [id number] 17:58:00 Test Item Value Reference Range Interpretation Comments Hep B S Ab (test code <8.0 See_Comment [Auto mated = 99852-0) message] The system which generated this result transmit radha reference range : <8.0 mIU/mL. Th e reference range was not used to interpret this result as normal/abnormal . ТАТЬЯНА (test code = ТАТЬЯНА) Field Merchandiser ID - DB Lab Interpretation Normal (test code = 81374-7) [facility] [id number] 17:58:00 Test Item Value Reference Range Interpretation Comments HEPATITIS B SURFACE ANTIBODY < mIU/mL <8.0 (BEAKER) (test code = 647) Field Merchandiser ID - [id number] 13:35:00 Test Item Value Reference Range Interpretation Comments Potassium (test code = 4.2 meq/L 3.6-5.5 2823-3) ТАТЬЯНА (test code = ТАТЬЯНА) Field Merchandiser ID - [id number] ID - [id number] ID - [id number] ID - [id number] Lab Interpretation (test Normal code = 48081-4) [facility] 13:35:00 Test Item Value Reference Range Interpretation Comments POTASSIUM (BEAKER) (test code = 4.2 meq/L 3.6-5.5 379) Field Merchandiser ID - [id number] ID - [id number] ID - [id number] ID - [id number] BASIC METABOLIC [id number] 06:45:00 Test Item Value Reference Range Interpretation [...] S 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 Field Merchandiser ID - MITCHOperator ID - MITCHOperator ID - MITCHOperator ID - MITCHOperator ID - MITCHOperator ID - MITCHOperator ID - MITCHOperator ID - MITCHOperator ID - MITCHOperator ID - [id number] 06:44:00 Test Item Value Reference Range Interpretation Comments Phosphorus (test code = 5.9 mg/dL 2.5-4.5 H 2777-1) ТАТЬЯНА (test code = ТАТЬЯНА) Field Merchandiser ID - MITCHOperator ID - MITCHOperator ID - MITCHOperator ID - STEVE Lab Interpretation Abnormal (test code = 65989-9) [facility] 06:44:00 Test Item Value Reference Range Interpretation Comments PHOSPHORUS (BEAKER) (test code = 5.9 mg/dL 2.5-4.5 H 604) Field Merchandiser ID - MITCHOperator ID - MITCHOperator ID - MITCHOperator ID - [id number] (Hemogram only)2020-10-25 06:33:00 Test Item Value Reference Range Interpretation Comments WBC (test code = 6690-2) 10.6 See_Comment H [A utomated message] The system [employer] generated this result transmitted ref erence range: 4.0 - 10 .0 K/L. The refe rence range was not u sed to interpret this result as normal/abnor mal. RBC (test code = 789-8) 2.39 See_Comment L [Au tomated message] The system [employer] generated this result transmitted ref erence range: 4.20 - 5 .80 M/L. The refe rence range was not u sed to interpret this result as normal/abnor mal. MCHC (test code = 786-4) 31.0 See_Comment L [A utomated message] The system [employer] generated this result transmitted ref erence range: [...] See_Comment [Aut omated message] 777-3) The system [employer] generated this result transmitted ref erence range: 150 - 43 0 K/CU MM. The referen ce range was not u sed to interpret this result as normal/abnor mal. MPV (test code = 9.8 fL 6-11.5 00015-0) nRBC (test code = 413) 0 See_Comment [Aut omated message] The system [employer] generated this result transmitted ref erence range: 0 - 0 /1 00 WBC. The refere nce range was not u sed to interpret this result as normal/abnor mal. Lab Interpretation (test Abnormal code = 08098-1) [facility] (HEMOGRAM ONLY)2020-10-25 06:33:00 Test Item Value Reference [...] (test code = 413) Type and screen, [id number] 14:42:00 Test Item Value Reference Range Interpretation Comments ABO/RH AUTOMATED (BEAKER) (test O POSITIVE code = 2260) Ab Scrn (test code = 890-4) NEGATIVE [facility] [id number] 08:07:00 Test Item Value Reference Interpretation Comments [...] 13) >100,000 col/mL skin floraHepatitis B surface [id number] 15:09:00 Test Item Value Reference Range Interpretation Comments HBsAg Screen (test code Nonreactive Nonreactive = 5195-3) ТАТЬЯНА (test code = ТАТЬЯНА) Field Merchandiser ID - [id number] Lab Interpretation (test Normal code = 12129-3) [facility] [id number] 15:09:00 Test Item Value Reference Range Interpretation Comments HEPATITIS B SURFACE ANTIGEN (2) Nonreactive Nonreactive (BEAKER) (test code = 2585) Field Merchandiser ID - [id number] METABOLIC [id number] 05:03:00 Test Item Value Reference Range Interpretation [...] S 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 Field Merchandiser ID - [id number] ID - [id number] ID - [id number] ID - [id number] ID - [id number] ID - [id number] ID - [id number] ID - [id number] ID - [id number] ID - [id number] ID - [id number] ID - [id number] ID - [id number] W/PLT COUNT & AUTO [id number] 04:56:00 Test Item Value Reference Range Interpretation [...] Xpert (test code = Negative, See Xpress 31620-6) external report SARS-CoV-2/F yuliet/RSV test for linked [...] Fact Sh eet for [employer] Prov iders: [email or web address] Documents/Xpert %20Xpress %26SDBN-XnZ-0-F yuliet-RSV/30 2-4508%20Rev.%2 0B%20HCP% 20Fact%20Sheet. pdf Fact Sheet for Healt hcare Patients: https://www.EMKinetics/ Documents/Xpert %20Xpress %56WZTO-YsL-1-F yuliet-RSV/30 2-4507%20Rev.%2 0B%20Pati ent%20Fact%20Sh eet.pdf SARS-COV-2 SLSL Performed at:[facility] PERFORMING LAB Lora Vasquez [id number] (test code = Shelton Nichols 82015-4) [place] [address] ph: [phone] [facility] HospitalARS-COV2/RT-PCR ([facility])2020-10-23 00:12:00 Test Item Value Reference Range Interpretation Comments SARS-COV2/RT-PCR Negative Not Detected, Performanc e of the Xpert (test code = Negative, See Xpress [id number]) external report SARS-CoV-2/F yuliet/RSV test for linked [...] sooner.Fact She et for Healthcare Prov iders: https://www.EMKinetics/ Documents/Xpert %20Xpress %71PNSM-VoX-0-F 2-4508%20Rev.%2 0B%20HCP% 20Fact%20Sheet. pdfFact Sheet for Healt hcare Patients: https://www.EMKinetics/ Documents/Xpert %20Xpress %14KBLC-VpZ-9-F 2-4507%20Rev.%2 0B%20Pati ent%20Fact%20Sh eet.pdf SARS-COV-2 SLSL Performed at:[facility] PERFORMING LAB Lora [id number] (test code = Shelton Nichols 0758424) [place] [address] ph: [phone] CT, [id number] 22:34:00Unlisted Reason for Exam - Click Yes and Enter Reason Below->YesUnlisted Reason for Exam->known R ureteral tumor and r hydro, worsening R side pain, pt ESRD will dialyzeWill this procedure require oral contrast?->No [facility] 1945 Sex: [...] 10/22/2020 22:34:38 CT abdomen pelvis with IV ljcrmvsb8514-74-89 22:34:00Interface, External Ris In - 10/22/2020 10:37 [...] Rodger Ramires MDReport Verified Date/Time: 10/22/2020 22:34:38 [facility] W/PLT COUNT & AUTO [id number] 21:18:00 Test Item Value Reference Range Interpretation [...] = 2801) CBC W/PLT COUNT & AUTO [id number] 12:53:00 Test Item Value Reference Range Interpretation [...] (BEAKER) (test code = 2801) BASIC METABOLIC [id number] 12:49:00 Test Item Value Reference Range Interpretation [...] S 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 Field Merchandiser ID - iazz50Ochhteuc ID - xeeo87Latqukip ID - sdhm00Xyayiuct ID - tqhw06Xrcygvgp ID - wlgw39Brmucmpw ID - ugyt47Coupzkhd ID - xclt47Smyfibmv ID - qlta00Cgzdcdlc ID - clca60Uhetsuad ID - oezn12Sufvdfhq ID - nwko83Wxgdptix ID - nvqc54Mrgzvtef ID - nggh79FD/eGRQ7969-18-00 12:44:00 Test Item Value Reference Interpretation Comments [...] PTT (test code = 28.1 See_Comment Final 07719-2) Information (Auto Output) [Automated message] The system [...] valves. Lab Interpretation Normal (test code = 46789-1) [facility]/[id number] 12:44:00 Test Item Value Reference Range Interpretation Comments PROTIME (BEAKER) (test 11.0 seconds 9.3-12.0 Final Information code = 759) (Auto Output) INR (BEAKER) (test 0.99 See_Comment Final Inf ormation code = 370) (Auto Output) [Automated mess age] The system AFFiRiS generated this result transmit radha reference range [...] 2.5-3.5 for patients with mechanical heart valves.CT, [id number] 08:58:00Unlisted Reason for Exam - Click Yes and Enter Reason Below->NoWill this procedure require oral contrast?->No [facility] : 1945 Sex: [...] Colonic diverticulosis. Tiny hiatal hernia. Signed: [facility] Verified Date/Time: 09/22/2020 08:58:10 Reading Location: [facility] B1 C013X [facility] Consult Reading Room CT abdomen/pelvis without & with IV owdqjquo5591-47-02 08:58:00 Interface, External Ris In - 09/22/2020 [...] Juarez MDReport Verified Date/Time: 09/22/2020 08:58:10 ReadingLocation: [facility] B1 C013X Ortho Consult Reading [facility] WITHOUT [id number] 15:11:00ESRD patientUnlisted Reason for Exam - Click Yes and Enter Reason Below->NoDeos the patient have an implanted electronic device?->No [facility] 1945 Sex: MFINAL [...] Huizarort Verified Date/Time: 09/02/2020 15:11:40 Reading Location: [facility] Diagnostic Imaging Reading Room - [place] [address] MR, PELVIS, WITHOUT [id number] 15:11:00ESRD patientUnlisted Reason for Exam - Click Yes and Enter Reason Below->NoDeos the patient have an implanted electronic device?->No [facility] : 1945 Sex: MFINAL REPORT MR, ABDOMEN, [...] Huizar Verified Date/Time: 09/02/2020 15:11:40 Reading Location: [facility] Diagnostic Imaging Reading Room - [place] [address] MR pelvis without IV tkwsigie0198-44-01 15:11:00Interface, External Ris In - 09/02/2020 3:13 [...] Huizar Verified Date/Time: 09/02/2020 15:11:40 Reading Location: [facility] Diagnostic Imaging Reading Room - [place] [address] [facility]MR [facility] without IV fzcnnadi1459-01-31 15:11:00Interface, External Ris In - 09/02/2020 3:13 [...] Huizar Verified Date/Time: 09/02/2020 15:11:40 Reading Location: [facility] Diagnostic Imaging Reading Room - [place] [address] 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 The specimen is entirely submitted into A1-A6. MG/ew Performed [facility], Department of Pathology, [facility] [place] [address], [facility], Department of Pathology, [address] [place] [address], [address] [facility], Department of Pathology, [address] [place] [address], MU, FLUORO, NON-SPECIFIC, UP TO 1 [id number] 12:50:00 Reason for exam:->Surgery [facility] : 1945 Sex: MFluoroscopic unit utilized for a procedure performed in the OR. No interpretation was requested. Refer to the operative report for findings. Refer to PACS for patient radiation dose information.FL fluoro non-specific up to 1 ojqi7064-52-27 12:50:00 Interface, External Ris In - 08/31/2020 12:55 PM CSTFluoroscopic unit utilized for a procedure performed in the OR. No interpretation was requested. Refer to the operative report for findings. 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 MD [...] Gradient: 3.29 mmHg Estimated PASP: 42.39 mmHgCHI Marian Regional Medical CenterComprehensive metabolic [id number] 06:56:00 Test Item Value Reference Range Interpretation Comments Protein, Total (test 6.7 See_Comment [Autom ated code = 2885-2) message] The system which generated this result transmitted reference range : 6.0 - 8.5 gm/dL . The reference range was not used to interpr et this result as normal/abnormal . Albumin (test code = 3.2 g/dL 3.5-5 L 19356-7) Alkaline Phosphatase 57 U/L 30-115 (test code = 6768-6) Total Bilirubin 0.4 mg/dL 0.1-1.2 (test code = 1975-2) Sodium (test code = 138 meq/L 319-625 6478-2) Potassium (test code 3.9 meq/L 3.6-5.5 = 2823-3) Chloride (test code 99 meq/L 98-106 = 2075-0) CO2 (test code = 26 meq/L 20-29 8-9) BUN (test code = 30 mg/dL 10-26 H 3094-0) Creatinine (test 7.85 mg/dL 0.5-1.2 H code = 2160-0) Glucose (test code = 94 mg/dL 70-110 2345-7) Calcium (test code = 8.7 mg/dL 8.5-10.5 40101-8) AST (test code = 49 U/L 5-40 H 1920-8) ALT (test code = 55 U/L 5-50 H 1742-6) EGFR (test code = 7 mL/min/1[place]73 [place] [address]-6) m NOT ACCURATE CREATININE CLEARANCE IN PREDICTING GLOMERULAR FILTRATION RATE . ESTIMATED GFR I S NOT APPLICABLE FOR DIALYSIS PATIENTS. ТАТЬЯНА (test code = Field Merchandiser ID - ТАТЬЯНА) LITOOperator ID - LITOOperator ID - LITOOperator ID - LITOOperator ID - LITOOperator ID - LITOOperator ID - LITOOperator ID - LITOOperator ID - LITOOperator ID - LITOOperator ID - LITOOperator ID - LITOOperator ID - LITOOperator ID - LITOOperator ID - LITOOperator ID - JUNITO Lab Interpretation Abnormal (test code = 25263-4) [facility] HospitalCOMPREHENSIVE METABOLIC [id number] 06:56:00 Test Item Value Reference Range Interpretation [...] S 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 Field Merchandiser ID - LITOOperator ID - LITOOperator ID - LITOOperator ID - LITOOperator ID - LITOOperator ID - LITOOperator ID - LITOOperator ID - LITOOperator ID - LITOOperator ID - LITOOperator ID - LITOOperator ID - LITOOperator ID - LITOOperator ID - LITOOperator ID - LITOOperator ID - BVIFMkygktpck2877-90-26 06:54:00 Test Item Value Reference Range Interpretation Comments Magnesium (test code = 2.1 mg/dL 1.5-3 65111-5) ТАТЬЯНА (test code = ТАТЬЯНА) Field Merchandiser ID - LITOOperator ID - LITOOperator ID - LITOOperator ID - JUNITO Lab Interpretation (test Normal code = 22362-3) [facility] CenterGNESIUM2021-[facility]-09 06:54:00 Test Item Value Reference Range Interpretation Comments MAGNESIUM (BEAKER) (test code = 2.1 mg/dL 1.5-3.0 627) Field Merchandiser ID - LITOOperator ID - LITOOperator ID - LITOOperator ID - LITOCBC W/PLT COUNT & AUTO [id number] 06:31:00 Test Item Value Reference Range Interpretation [...] PERCENT (BEAKER) (test code = 2801) Lipid [id number] 06:03:00 Test Item Value Reference Range Interpretation Comments Triglycerides (test 125 mg/dL code = 2571-8) Cholesterol (test code 92 mg/dL = 2093-3) HDL (test code = 27 mg/dL 2085-9) LDL Calculated (test 40 mg/dL code = 62925-8) ТАТЬЯНА (test code = ТАТЬЯНА) Triglyceride Reference Range: Low Risk <150 Borderline 150-199 High Risk 200-499 Very High Risk >=500 Cholesterol Reference Range: Low Risk <200 Borderline 200-239 High Risk >240 HDL Cholesterol Reference Range: Low Risk >=60 High Risk <40 LDL Cholesterol Reference Range: Optimal <100 Near Optimal 100-129 Borderline 130-159 High 160-189 Very High >=190 Field Merchandiser ID - [id number] ID - AMOB12Iwbiormk ID - VCEH18Grszcmmx ID - ZVMS09Smrrwfyc ID - BRDK35Cqyeuwyo ID - ZRES04 [facility] CenterLIPID [id number] 06:03:00 Test Item Value Reference Range Interpretation [...] Borderline 130-159 High 160-189 Very High >=190 Field Merchandiser ID - IQFI36Rynqqnfy ID - GQZX74Zlhqwwmv ID - BZNI78Tlgfqkjs ID - MRMP19Sgprodgp ID - NEWW16Mpuckzzb ID - PKVQ12NZW W/PLT COUNT & AUTO SFREBMNOUUOI8059-37-59 05:38:00 Test Item Value Reference Range Interpretation [...] H PERCENT (BEAKER) (test code = 2801) [id number] 19:47:00 Test Item Value Reference Range Interpretation Comments PSA (test code = 2857-1) 4.9 ng/mL 0-4 H ТАТЬЯНА (test code = ТАТЬЯНА) Field Merchandiser ID - [id number] Lab Interpretation (test Abnormal code = 55134-3) [facility] HospitalPSA2021-03-07 19:47:00 Test Item Value Reference Range Interpretation Comments PROSTATE SPECIFIC ANTIGEN (BEAKER) 4.9 ng/mL 0.0-4.0 H (test code = 844) Field Merchandiser ID - [id number] 18:56:00 Test Item Value Reference Range Interpretation Comments Ferritin (test code = 4479.50 ng/mL 22-322 H 2276-4) ТАТЬЯНА (test code = ТАТЬЯНА) Field Merchandiser ID - [id number] ID - [id number] Lab Interpretation (test Abnormal code = 24542-0) [facility] HospitalFERRITIN2021-03-07 18:56:00 Test Item Value Reference Range Interpretation Comments FERRITIN (BEAKER) (test code = 4479.50 ng/mL 22.00-322.00 H 361) Field Merchandiser ID - [id number] ID - ONLJACU876Xlagcgm [id number] 18:33:00 Test Item Value Reference Range Interpretation Comments Vitamin B12 (test code = 919 pg/mL 211-911 H 2132-9) ТАТЬЯНА (test code = ТАТЬЯНА) Field Merchandiser ID - [id number] Lab Interpretation (test Abnormal code = 51822-4) [facility] HospitalVITAMIN [id number] 18:33:00 Test Item Value Reference Range Interpretation Comments VITAMIN B12 (BEAKER) (test code = 919 pg/mL 211-911 H 774) Field Merchandiser ID - [id number], jwso4876-97-81 18:25:00 Test Item Value Reference Range Interpretation Comments Free T4 (test code = 0.90 ng/dL 0.9-1.8 3024-7) ТАТЬЯНА (test code = ТАТЬЯНА) Field Merchandiser ID - [id number] Lab Interpretation (test Normal code = 89676-7) [facility] HospitalT4, [id number] 18:25:00 Test Item Value Reference Range Interpretation Comments FREE T4 (BEAKER) (test code = 655) 0.90 ng/dL 0.90-1.80 Field Merchandiser ID - [id number] 18:22:00 Test Item Value Reference Range Interpretation Comments TSH (test code = 5.480 See_Comment [Automated 54957-4) message] The system which generated this result transmit radha reference range : 0.350 - 5.500 uIU/mL. The reference range was not used to interpret this result as normal/abnormal . ТАТЬЯНА (test code = ТАТЬЯНА) Field Merchandiser ID - [id number] Lab Interpretation Normal (test code = 43917-1) [facility] HospitalTSH2021-03-07 18:22:00 Test Item Value Reference Range Interpretation Comments THYROID STIMULATING HORMONE 5.480 uIU/mL 0.350-5.500 (BEAKER) (test code = 772) Field Merchandiser ID - [id number]/S, RENAL, MEAUKLPB5322-06-62 12:08:00Please include bladderReason for exam:->hematuria, history of polycystic kidney diseaseShould this be performed at the bedside?->Yes [facility] 1945 Sex: [...] MDReport Verified Date/Time: 08/29/2020 12:08:20 Reading Location: [facility] C013 ConsultReading Room US renal gmjxvmse5405-99-99 12:08:00Interface, External Ris In - 08/29/2020 12:19 [...] MDReport Verified Date/Time: 08/29/2020 12:08:20 Reading Location: [facility] B1 C013W Consult Reading Room [facility] HospitalHEPATITIS B SURFACE ANTIBODY 2020-08-29 11:42:00 Test Item Value Reference Range Interpretation Comments HEPATITIS B SURFACE ANTIBODY < mIU/mL <8.0 (BEAKER) (test code = 647) Field Merchandiser ID - FER MReticulocyte mtcjh2499-16-37 11:03:00 Test Item Value Reference Range Interpretation Comments % Retic (test code = 11361-2) 1.8 % 0.4-2.9 Lab Interpretation (test code = Normal 26738-8) [facility] HospitalRETICULOCYTE [id number] 11:03:00 Test Item Value Reference Range Interpretation Comments RETICULOCYTE COUNT PCT (BEAKER) (test 1.8 % 0.4-2.9 code = 575) Troponin [id number] 05:52:00 Test Item Value Reference Range Interpretation Comments Troponin I (test code = 0.22 ng/mL 0-0.15 HH 08634-8) ТАТЬЯНА (test code = ТАТЬЯНА) Troponin I [...] ZRES04 Lab Interpretation (test Abnormal code = 98277-3) [facility] HospitalTROPONIN [id number] 05:52:00 Test Item Value Reference Range Interpretation [...] failure, acidosis, acute neurological disease, and persistent tachyarrhythmia.Field Merchandiser ID - [id number] METABOLIC UZQQB6622-91-15 05:32:00 Test Item Value Reference Range Interpretation [...] S 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 Field Merchandiser ID - RRYH89Hgvnhrut ID - GNUB55Pglrgtvf ID - ZKZI61Umonitaw ID - WSPZ82Irqkmynb ID - JKOU84Nbxmcrrj ID - TONP04Haowcbhp ID - LBMQ64Mbojoffr ID - XDDL63Lykgwcjn ID - YWYG84Fgtdnaar ID - OUSJ78Rftbyysr ID - GHHM85Iurvofaq ID - YBRD59Lhwjgqoq ID - YJEX23CI, BRAIN, WITHOUT JOBFTQOY9408-67-30 05:08:00Unlisted Reason for Exam - Click Yes and Enter Reason Below->YesUnlisted Reason for Exam->ams[facility] : 1945 Sex: [...] Date/Time: 08/29/2020 05:08:18 CT brain without IV nxlksvxj6959-88-16 05:08:00Interface, External Ris In - 08/29/2020 5:11 [...] Yessenia Perez MDReport Verified Date/Time: 08/29/2020 05:08:18 [facility] W/PLT COUNT & AUTO [id number] 04:50:00 Test Item Value Reference Range Interpretation [...] (BEAKER) (test code = 2801) Occult blood, rfahd0905-01-64 03:55:00 Test Item Value Reference Range Interpretation Comments Occult blood (test code = 2335-8) Negative Negative Lab Interpretation (test code = Normal 58039-1) [facility] HospitalOCCULT BLOOD, [id number] 03:55:00 Test Item Value Reference Range Interpretation Comments FECAL OCCULT BLOOD (BEAKER) (test Negative Negative code = 618) HEPATITIS B SURFACE [id number] 17:43:00 Test Item Value Reference Range Interpretation Comments HEPATITIS B SURFACE ANTIGEN (2) Nonreactive Nonreactive (BEAKER) (test code = 2585) Field Merchandiser ID - CINTHIA U4755-54-25 16:41:00 Test Item Value Reference Range Interpretation Comments TROPONIN I (BEAKER) (test code = 0.26 ng/mL 0.00-0.15 [facility]) Troponin I (TnI) levels must be [...] failure, acidosis, acute neurological disease, and persistent tachyarrhythmia.Field Merchandiser ID - HARMAN G4481-31-73 09:49:00 Test Item Value Reference Range Interpretation [...] failure, acidosis, acute neurological disease, and persistent tachyarrhythmia.Field Merchandiser ID - RAHMABASIC METABOLIC PANEL 2020-08-28 07:01:00 [...] S 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 Field Merchandiser ID - ZQTU79Cjustxha ID - WOIW52Ftmqzoeu ID - TEKH33Xagpxwkr ID - QJQE74Pbzlffwe ID - MUBS31Ijqikuve ID - LWVN22Nimotxlv ID - XAZT22Pflikint ID - UTNQ13Yxtcgiwa ID - DTGG41Rimnhhgb ID - DUEW57Klxluuoy ID - YBTX86Rnmkutfm ID - PWBG87Hhpqnrqs ID - ZCVU12LNO W/PLT COUNT & AUTO [id number] 06:29:00 Test Item Value Reference Range Interpretation [...] PERCENT (BEAKER) (test code = 2801) Prothrombin time/[id number] 02:15:00 Test Item Value Reference Interpretation Comments [...] valves. Lab Interpretation Abnormal (test code = 99642-6) [facility] HospitalPROTHROMBIN TIME/[id number] 02:15:00 Test Item Value Reference Range Interpretation Comments PROTIME (BEAKER) 12.4 seconds 9.3-12.0 H Final Infor mation (test code = 759) (Auto Outp ut) INR (BEAKER) (test 1.12 See_Comment Final Inf ormation code = 370) (Auto Output) [Automated mess age] The system AFFiRiS generated this result transmitted ref erence range: <=5.90. The reference range was not used to int erpret this result as normal/abnormal . RECOMMENDED COUMADIN/WARFARIN INR THERAPY RANGESSTANDARD DOSE: 2.0 - 3.0 Includes: PROPHYLAXIS forvenous thrombosis, systemic embolization; TREATMENT for venous thrombosis and/or pulmonary embolus.HIGH RISK: Target INR is 2.5-3.5 for patients with mechanical heart valves.COMPREHENSIVE METABOLIC [id number] 02:11:00 Test Item Value Reference Range Interpretation [...] S 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 Field Merchandiser ID - [id number] ID - CJLH09Nehwegpk ID - NBWI86Hfyfjtgd ID - UXFK70Tcihzrhm ID - XYRU05Gexistwf ID - VLXQ91Khsjclge ID - MTXF75Yajjujvf ID - MZUU37Sslpsxaj ID - QXZL00Ioidzmvg ID - BYNZ23XEFUQ [id number] 02:10:00 Test Item Value Reference Range Interpretation [...] Borderline 130-159 High 160-189 Very High >=190 Field Merchandiser ID - JOMK00Ngxlcpiq ID - NVCA04Yvymcwzm ID - [id number] Urinalysis w/Microscopic + Reflex to Mlfngky0421-50-63 02:09:00 Test Item Value Reference Range Interpretation Comments Color, UA (test code = Red 5778-6) Clarity, UA (test code Turbid = 5767-9) Specific [place], UA 1.020 1.001-1.035 (test code = 5811-5) pH, UA (test code = 8.5 5.0-8.0 H 5803-2) Protein, UA (test code >=300 mg/dL Negative A = 05678-3) Glucose, UA (test code 100 mg/dL Negative A = 365) Ketones, UA (test code 15 mg/dL Negative A = 2514-8) Bilirubin, UA (test Positive Negative A code = 74334-2) Blood, UA (test code = Large Negative A 21832-3) Nitrite, UA (test code Positive Negative A = 5802-4) Leukocytes, UA (test Large Negative A code = 5799-2) Urobilinogen, UA (test >=8.0 0.2-1 H code = 00226-8) Bacteria, UA (test code Moderate = 39050-2) RBC, UA (test code = >100 See_Comment [Autom ated 799-7) message] The sy stem which generated this result transmitted reference range : /HPF. The refer ence range was not u sed to interpret th is result as normal/abnormal . WBC, UA (test code = 10-20 See_Comment [Autom ated 31513-5) message] The sy stem which generated this result transmitted reference range : /HPF. The refer ence range was not u sed to interpret th is result as normal/abnormal . SQUAMOUS EPITHELIAL 5-10 See_Comment [Automa radha (test code = 65142-5) messag e] The system which generated this result transmitted reference range : /HPF. The refer ence range was not u sed to interpret th is result as normal/abnormal . Specimen Source (test code = 2795) Lab Interpretation Abnormal (test code = 99644-9) [facility] HospitalURINALYSIS W/ REFLEX URINE [id number] 02:09:00 Test Item Value Reference Range Interpretation [...] SOURCE(BEAKER) (test code = 2795) Hepatic function [id number] 02:07:00 Test Item Value Reference Range Interpretation Comments Protein, Total (test 6.5 See_Comment [Autom ated code = 2885-2) message] The system which generated this result transmit radha reference range : 6.0 - 8.5 gm/dL . The reference range was not u sed to interpret th is result as normal/abnormal . Albumin (test code = 3.1 g/dL 3.5-5 L 11886-2) Total Bilirubin (test 0.5 mg/dL 0.1-1.2 code = 1975-2) Bilirubin, Direct 0.3 mg/dL 0-0.4 (test code = 1967-7) Alkaline Phosphatase 56 U/L 30-115 (test code = 6768-6) AST (test code = 35 U/L 5-40 1920-8) ALT (test code = 30 U/L 5-50 1742-6) ТАТЬЯНА (test code = ТАТЬЯНА) Field Merchandiser ID - OVVG40Sbtgowsp ID - IWLL53Kdjrammv ID - HBHT35Oalnvneb ID - NGTC10Yhwpoeqb ID - FWMM96Osglteqj ID - BGVB97Oqntiewy ID - [id number] Lab Interpretation Abnormal (test code = 25550-7) [facility] HospitalHEPATIC FUNCTION [id number] 02:07:00 Test Item Value Reference Range Interpretation [...] (test code = 30 U/L 5-50 347) Field Merchandiser ID - GUZZ33Hisqtdvn ID - KKDW20Lnawdhbg ID - XWMX61Mrgbgjvy ID - UONI25Ojnihhwp ID - ZHJS54Zcjuokgr ID - YFEP51Gzgcyyku ID - ZIHM80Wpkmtsfgbb A1c 2020-08-28 01:48:00 Test Item Value Reference Range Interpretation Comments Hemoglobin A1C (test code 4.8 % 4.3-6.1 = 4548-4) ТАТЬЯНА (test code = ТАТЬЯНА) Field Merchandiser ID - [id number] Lab Interpretation (test Normal code = 15642-2) [facility] HospitalHEMOGLOBIN [id number] 01:48:00 Test Item Value Reference Range Interpretation Comments HEMOGLOBIN A1C (BEAKER) (test code = 4.8 % 4.3-6.1 368) Field Merchandiser ID - [id number] 01:42:00 Test Item Value Reference Range Interpretation Comments MAGNESIUM (BEAKER) (test code = 2.2 mg/dL 1.5-3.0 627) Field Merchandiser ID - BPJB13Gagtsczi ID - FQXV17Byhblzzj ID - ZZGU58Wlsgrqbh ID - [id number] KIGNQSGGLF3256-25-28 01:39:00 Test Item Value Reference Range Interpretation Comments PHOSPHORUS (BEAKER) (test code = 5.0 mg/dL 2.5-4.5 H 604) Field Merchandiser ID - [id number] W/PLT COUNT & AUTO [id number] 01:37:00 Test Item Value Reference Range Interpretation [...] H PERCENT (BEAKER) (test code = 2801) [id number] 00:00:00Ordered by an unspecified provider.[facility] 14:11:47Rafael Blas CRNA 07/29/2020 8:12 AMAirway Date/Time: 07/29/2020 [...] RSI: No Number of Attempts at Approach: 1[facility]Pot[facility], [id number] 13:20:20 Test Item Value Reference Range Interpretation Comments Potassium, syringe See_Comment [Automat ed message] The (test code = 2007) system st. [facility] generated this result tra nsmitted reference range : 3.5 - 5.0 mEq/L. The refe rence range was not used to interpret this result as normal/abnormal . [facility] [id number] 04:42:40 Test Item Value Reference Range Interpretation Comments Interpretation (test code = 3544517) COVID-19 qualitative RT-PCR Not-Detected Not-Detected result (test code = 30318-3) COVID-19 qualitative RT-PCR See link below for (test code = 7070) PDF Lab Report [facility] Pre/Post [id number] 00:59:42 Test Item Value Reference Range Interpretation Comments Ventricular rate (test code = 253) Atrial rate (test code = 255) AZ interval (test code = 266) QRSD interval (test code = 260) QT interval (test code = 264) QTC interval (test code = 265) P axis 1 (test code = 267) QRS axis 1 (test code = 268) T wave axis (test code = 270) EKG impression (test Normal sinus rhythm-In code = 273) automated comparison with ECG of 08-JUL-2014 11:47,-No significant change was found[facility] [Presence] in Respiratory specimen by MADYSON with probe [id number] 22:41:47 Test Item Value Reference Range Interpretation Comments SARS-CoV-2 (COVID-19) RNA Not detected Not-Detected [Presence] in Respiratory specimen by MADYSON with probe detection (test code = 72261-6) TISSUE [id number] 11:07:00Surgical Pathology Report Case: [id number] Authorizing Provider: Bin Acevedo, Collected: 02/12/2020 09:33 AM Ordering Location: [facility] Received: 02/12/2020 10:58 AM PERIOPERATIVE SERVICES Pathologist: Carlos Betancourt MD Specimen: Carotid, Left, LEFT CAROTID PLAQUE ARTERY, LEFT CAROTID, ENDARTERECTOMY:CALCIFIC ATHEROSCLEROTIC PLAQUE Signing Pathologist Direct Phone Line: [phone] signed by Carlos Betancourt MD on 02/17/2020 at 11:07 [id number]; [id number] carotid stenosis Carotid, LeftA. Received fresh labeled with the patient's name, medical record number and "parotid, left" is a previously incised portion of yellow plaque measuring 1.6 cm in length and 0.8 cm in diameter. Specimen is serially sectioned to reveal calcifications measuring up to 0.2 cm in thickness. Health Specialist sections are submitted in A1, following decalcification.SATISH [place], KRIS (ASCP)PerformedHEPATITIS B SURFACE [id number] 14:11:00 Test Item Value Reference Range Interpretation Comments HEPATITIS B SURFACE ANTIGEN (2) Nonreactive Nonreactive (BEAKER) (test code = 2585) Specimen is considered negative for HBsAg.POCT-GLUCOSE [id number] 13:03:00 Test Item Value Reference Range Interpretation Comments POC-GLUCOSE METER 83 mg/dL 70-110 : TESTED A T [facility] 6720 (BEAKER) (test code = [facility], 1538) [address]: Field Merchandiser/Techni justus ID = [id number] for JOIE ROE [id number] 06:30:00 Test Item Value Reference Range Interpretation Comments ACTIVATED CLOTTING TIME 235 sec : 74 -137 seconds, (BEAKER) (test code = Baseli ne: TESTED AT 441) [facility] 67[address] [facility], 770 30: Field Merchandiser/Techni justus ID = [id number] for DON FARLEY BASIC METABOLIC [id number] 06:01:00 Test Item Value Reference Range Interpretation [...] S 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 Field Merchandiser ID - PIAYA LPOCT-GLUCOSE [id number] 06:00:00 Test Item Value Reference Range Interpretation Comments POC-GLUCOSE METER 94 mg/dL 70-110 : TESTED A T [facility] 6720 (BEAKER) (test code = [place], 1538) [address]: Field Merchandiser/Techni justus ID = [id number] for Aren Cheatham [id number] 05:49:00 Test Item Value Reference Range Interpretation Comments MAGNESIUM (BEAKER) (test code = 1.9 mg/dL 1.6-2.6 627) Field Merchandiser ID - LIAM [id number] 05:31:00 Test Item Value Reference Range Interpretation Comments CORTISOL, TOTAL (BEAKER) (test code 8.3 ug/dL 3.7-19.4 = 2755) Field Merchandiser ID - EDASICBC (HEMOGRAM ONLY)2020-02-13 03:06:00 Test [...] WBC 0-0 (BEAKER) (test code = 413) TSH/FREE T4 IF [id number] 02:45:00 Test Item Value Reference Range Interpretation Comments THYROID STIMULATING HORMONE 4.682 uIU/mL 0.350-4.940 (BEAKER) (test code = 772) Field Merchandiser ID - PIAYA LPOCT-GLUCOSE [id number] 00:32:00 Test Item Value Reference Range Interpretation Comments POC-GLUCOSE METER 82 mg/dL 70-110 : TESTED A T [facility] 6720 (BEAKER) (test code = [place], 1538) [address]: Field Merchandiser/Techni justus ID = [id number] for Aren Cheatham BLOOD GAS, [id number] 18:26:00 Test Item Value Reference Range Interpretation [...] code = 1819) 21.0 % COMPREHENSIVE METABOLIC [id number] 18:16:00 Test Item Value Reference Range Interpretation [...] S 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 Field Merchandiser ID - [id number] 18:14:00 Test Item Value Reference Range Interpretation Comments MAGNESIUM (BEAKER) (test code = 1.8 mg/dL 1.6-2.6 627) Field Merchandiser ID - NTPCALCIUM, [id number] 18:02:00 Test Item Value Reference Range Interpretation Comments CALCIUM IONIZED (BEAKER) (test 1.14 mmol/L 1.12-1.27 code = 698) PH, BLOOD (BEAKER) (test code = 7.32 1810) [id number] 18:01:00 Test Item Value Reference Range Interpretation [...] WBC 0-0 (BEAKER) (test code = 413) BLOOD GAS, [id number] 10:37:00 Test Item Value Reference Range Interpretation [...] 1819) 60.0 % HGB/HCT (H&H) - STAT [id number] 10:37:00 Test Item Value Reference Range Interpretation Comments HEMOGLOBIN (BEAKER) (test code = 9.2 g/dL 13.0-16.8 L 410) HEMATOCRIT (BEAKER) (test code = 27.0 % 40.0-50.0 L 411) GLUCOSE-STAT [id number] 10:36:00 Test Item Value Reference Range Interpretation Comments GLUCOSE RANDOM (BEAKER) (test code 104 mg/dL 70-110 = 652) SODIUM NA-STAT [id number] 10:36:00 Test Item Value Reference Range Interpretation Comments SODIUM (BEAKER) (test code = 381) 137 meq/L 136-145 POTASSIUM-STAT [id number] 10:36:00 Test Item Value Reference Range Interpretation Comments POTASSIUM (BEAKER) (test code = 4.0 meq/L 3.6-5.5 379) SARS-COV2/RT-PCR ([facility])2020-02-12 08:04:00 Test Item Value Reference Range Interpretation Comments SARS-COV2/RT-PCR (test code Negative Not Detected, Negative, = 1665475) See external report for linked test SARS-COV-2 PERFORMING LAB [facility] (test code = 6978948) Negative results do not preclude SARS-CoV-2 infection [...] of the Act.Fact Sheet for Healthcare Pro viders:https://www.NComputing/Documents/Xpert%20Xpress%20SARS%20CoV-2/Fact%20Sh eets/302-3802%56CYDH-FXJ-6%20HEALTHCARE%20PROVIDERS%20FACT%20SHEET.pdfFact Sheet for Healthcare Patients:https://www.Pairin/Documents/Xpert%20Xpress%20SARS%20CoV-2/Fact%20Sheets/302-3801%20SARS-COV -2%20PATIENT%20FACT%20SHEET.pdfPerforming Laboratory:[facility] [place] [address], [place] [address]BBTNO METABOLIC [id number] 07:28:00 Test Item Value Reference Range Interpretation [...] S 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 Field Merchandiser ID - NTPCBC W/PLT COUNT & AUTO [id number] 07:21:00 Test Item Value Reference Range Interpretation [...] code = 2801) HGB/HCT (H&H) - STAT [id number] 06:45:00 Test Item Value Reference Range Interpretation Comments HEMOGLOBIN (BEAKER) (test code = 11.3 g/dL 13.0-16.8 L 410) HEMATOCRIT (BEAKER) (test code = 33.0 % 40.0-50.0 L 411) GLUCOSE-STAT [id number] 06:42:00 Test Item Value Reference Range Interpretation Comments GLUCOSE RANDOM (BEAKER) (test code 103 mg/dL 70-110 = 652) POTASSIUM-STAT [id number] 06:42:00 Test Item Value Reference Range Interpretation Comments POTASSIUM (BEAKER) (test code = 4.8 meq/L 3.6-5.5 379) POCT-GLUCOSE [id number] 05:51:00 Test Item Value Reference Range Interpretation Comments POC-GLUCOSE METER 108 mg/dL 70-110 : TESTED A T [facility] 6720 ([facility]) (test code [facility], = 1538) [address]: Field Merchandiser/Techni jusuts ID = [id number] for JORD AN, LACRYSTAL
[2021-02-18 11:43] LABS: Absolute Lymphocytes (CBC) 1.6 K/uL (0.7-4.9); Basophils % 0.6 % (0-1.3); Hematocrit 30.9 % (39.6-49.0); Lymphocytes % 15.7 % (15.3-44.8); MPV 8.5 fL (7.6-11.3); Protime INR 1.34; RBC Red Blood Cell Count 3.23 M/uL (4.33-5.43)
[2021-02-18 12:17] LABS: Thyroid Stimulating Hormone 7.18 uIU/mL (0.360-3.740)
--- NOTE | 2021-02-18 12:18 | RAD REPORT ---
EXAM DESCRIPTION: RAD - Chest Single View - 02/18/2021 12:10 pm CLINICAL HISTORY: CHEST PAIN COMPARISON: Chest Pa And Lat (2 Views) dated 01/27/2021; Chest Single View dated 11/18/2020; Chest Sing le View dated 11/17/2020; Chest Pa And Lat (2 Views) dated 10/12/2020; Chest Abd Pelvis Wo Con dated FINDINGS: Background of chronic interstitial lung changes with increasing ill-defined airspace disea se bilaterally though more pronounced in the left mid lung and left upper lobe. Cardiomegaly.No acute osseous abnormality. No significant pleural effusions or pneumothorax. IMPRESSION: Worsened aeration of the lungs with increasing ill-defined airspace opacities bilaterall y, left greater than right, that could reflect pneumonia superimposed upon chronic lung changes.
[2021-02-18] MEDS ORDERED: METOPROLOL TARTRATE 5 MG/5 ML INJ IV ONE (12:19)
[2021-02-18 12:45] LABS: ALT/SGPT 25 U/L (12-78); AST/SGOT 16 U/L (15-37); Albumin 3.7 g/dL (3.4-5.0); Alkaline Phosphatase 73 U/L (45-117); BUN Blood Urea Nitrogen 19 mg/dL (7-18); Bicarbonate 29 mmol/L (21-32); Bilirubin Direct 0.3 mg/dL (0-0.2); Bilirubin Total 0.8 mg/dL (0.2-1.0); Glucose Level 111 mg/dL (74-106); NT PRO-BNP 85354 pg/mL (<450); Potassium 4.1 mmol/L (3.5-5.1); Protein, Total 8.4 g/dL (6.4-8.2); Sodium Level 137 mmol/L (136-145); Troponin (Emerg Dept Use Only) < 0.02 ng/mL (0.0-0.045)
--- NOTE | 2021-02-18 13:10 | ER ---
Nurse's Notes [facility] Name: Robbie Kelly Age: 75 yrs Sex: Male : 1945 Arrival Date: 02/18/2021 Time: 10:51 Bed 23 Private MD: Diagnosis: Persistent atrial fibrillation-with RVR Presentation: 02/18 10:57 Chief complaint: Patient states: Sent by dialysis center for elevated pulse after ss completely session this morning. Pt has no complaints other than a cough for the past few days. Denies pain. Coronavirus screen: Vaccine status: Patient reports receiving the 2nd dose of the covid vaccine. Client presents with at least one sign or symptom that may indicate coronavirus-19. Standard/surgical mask placed on the client. Provider contacted for isolation considerations. Ebola Screen: Patient denies exposure to infectious person. Patient denies travel to an Ebola-affected area in the 21 days before illness onset. Initial Sepsis Screen: Does the patient meet any 2 criteria? No. Patient's initial sepsis screen is negative. Does the patient have a suspected source of infection? No. Patient's initial sepsis screen is negative. Risk Assessment: Do you want to hurt yourself or someone else? Patient reports no desire to harm self or others. Onset of symptoms was February 16, 2021. 10:57 Method Of Arrival: Ambulatory ss 10:57 Acuity: DADA 2 ss Historical: - Allergies: 11:01 No Known Allergies; ss - PMHx: 11:01 Anemia; COPD; Dialysis; M,W,F; Hypertension; Hypothyroidism; POLYCYSTIC KIDNEY DISEASE; ss RENAL FAILURE; bladder CA; - Immunization history:: Adult Immunizations up to date, Client reports receiving the 2nd dose of the Covid vaccine. - Social history:: Smoking status: Patient denies any tobacco usage or history of. Screenin:36 Abuse screen: Denies threats or abuse. Nutritional screening: No deficits noted. vg1 Tuberculosis screening: No symptoms or risk factors identified. Fall Risk No fall in past 12 months (0 pts). No secondary diagnosis (0 pts). IV access (20 points). Ambulatory Aid- Crutches/Cane/Walker (15 pts). Gait- Normal/Bed Rest/Wheelchair (0 pts) Mental Status- Oriented to own ability (0 pts). Total Hawkins Fall Scale indicates Low Risk Score (25-44 pts). Fall prevention measures have been instituted. Side Rails Up X 2 Placed close to Nursing Station. Assessment: 11:15 General: Appears in no apparent distress. comfortable, Behavior is calm, cooperative. vg1 Pain: Denies pain. Neuro: Level of Consciousness is awake, alert, obeys commands. Cardiovascular: Patient's skin is warm and dry. Rhythm is atrial fibrillation with rapid ventricular response Dialysis shunt: in the left arm, with palpable thrill, with auscultated bruit, with no erythema, with no edema, no bleeding noted. Respiratory: Airway is patent Respiratory effort is even, unlabored. GI: Reports vomiting, since this morning before dialysis. : No signs and/or symptoms were reported regarding the genitourinary system. EENT: No signs and/or symptoms were reported regarding the EENT system. Derm: Skin is intact, Skin is pink, warm \T\ dry. Musculoskeletal: Circulation, motion, and sensation intact. 12:30 Reassessment: Patient appears in no apparent distress at this time. No changes from vg1 previously documented assessment. Patient and/or family updated on plan of care and expected duration. Pain level reassessed. Patient is alert, oriented x 3, equal unlabored respirations, skin warm/dry/pink. 13:23 Reassessment: Patient appears in no apparent distress at this time. No changes from vg1 previously documented assessment. Patient and/or family updated on plan of care and expected duration. Pain level reassessed. Patient is alert, oriented x 3, equal unlabored respirations, skin warm/dry/pink. 15:10 Reassessment: attempted to call report. vg1 15:12 Pain: Pain does not radiate. vg1 Vital Signs: 10:57 BP 112 / 60; Pulse 149; Resp 24; Temp 97.3(TE); Pulse Ox 96% 2 lpm ; Weight 79.83 kg; Height 5 ft. 10 in. (177.80 cm); Pain 0/10; 11:25 BP 111 / 67; Pulse 130; Resp 20; Pulse Ox 95% on 2 lpm NC; Weight 1.81 kg; vg1 12:21 BP 126 / 73; Pulse 130; vg1 12:30 BP 118 / 77; Pulse 114; Resp 22; Pulse Ox 96% on 2 lpm NC; vg1 12:45 BP 114 / 85; Pulse 125; Resp 22; Pulse Ox 98% on 2 lpm NC; vg1 13:00 BP 108 / 73; Pulse 119; Resp 22; Pulse Ox 97% on 2 lpm NC; vg1 13:20 BP 124 / 91; Pulse 130; Resp 22; Pulse Ox 98% on 2 lpm NC; vg1 13:40 BP 120 / 72; Pulse 118; Resp 18; Pulse Ox 97% on 2 lpm NC; vg1 14:00 BP 115 / 65; Pulse 137; Resp 18; Pulse Ox 95% on 2 lpm NC; vg1 11:25 Body Mass Index 0.57 (1.81 kg, 177.80 cm) vg1 ED Course: 10:51 Patient arrived in ED. ja2 11:01 Triage completed. ss 11:01 Arm band placed on left wrist. ss 11:02 Tomy Eddy PA is PHCP. jr8 11:02 Korey Antonio MD is Attending Physician. jr8 11:24 Initial lab(s) drawn, by nm, sent to lab. Inserted saline lock: 22 gauge in right vg1 antecubital area, using aseptic technique. Blood collected. 11:24 Oxygen administration via nasal cannula \T\ 4L/min. vg1 11:30 Irma Marshall RN is Primary Nurse. vg1 11:36 Patient has correct armband on for positive identification. Placed in gown. Bed in low vg1 position. Call light in reach. Side rails up X2. 11:36 cardiac monitor on. Pulse ox on. NIBP on. vg1 12:02 IV discontinued, intact, bleeding controlled, No redness/swelling at site. Pressure vg1 dressing applied, due to infiltration. 12:10 XRAY Chest (1 view) In Process Unspecified. EDMS 12:22 Inserted saline lock: 22 gauge in right upper arm, using aseptic technique. ,using vg1 aseptic technique. completed by Gini SHULTZ. 13:08 Jorge Wright is Hospitalizing Provider. jr8 15:09 No provider procedures requiring assistance completed. Patient admitted, IV remains in vg1 place. Administered Medications: 12:24 Drug: Metoprolol 5 mg Route: IVP; Site: right upper arm; vg1 15:08 Follow up: Response: No adverse reaction; No change in condition vg1 Outcome: 13:09 Decision to Hospitalize by Provider. joaquin 15:11 Admitted to Tele accompanied by tech, via wheelchair, room 231, with oxygen, with vg1 chart, Report called to Vikash SHULTZ 15:11 Condition: unchanged 15:11 Instructed on the need for admit. 15:35 Patient left the ED. vg1 Signatures: Dispatcher [employer] EDTamra Bradley RN RN Tomy Haley PA PA jr8 Imra Marshall RN RN vg1 Beatris Castellanos Corrections: (The following items were deleted from the chart) 11:30 11:25 BP 111 / 67; Pulse 130bpm; Resp 20bpm; Pulse Ox 90% 2 lpm Nasal Cannula; 1.81 kg; vg1 BMI: 0.57; vg1
--- NOTE | 2021-02-18 13:10 | EDPHYS ---
Physician Documentation [facility] Name: Robbie Kelly Age: 75 yrs Sex: Male : 1945 Arrival Date: 02/18/2021 Time: 10:51 Bed 23 Private MD: ED Physician Korey Antonio HPI: 02/18 12:11 This 75 yrs old Male presents to ER via Ambulatory with complaints of jr8 Irregular Pulse, Cough. 12:17 The patient presents with a history of irregular heart beat. Context: The symptoms jr8 occur at rest. Onset: The symptoms/episode began/occurred at an unknown time. Duration: The patient or guardian reports a single episode, that is still ongoing. Modifying factors: The symptoms are aggravated by nothing. The symptoms are alleviated by nothing. Associated signs and symptoms: The patient has no apparent associated signs or symptoms. Severity of symptoms: At their worst the symptoms were mild in the emergency department the symptoms are unchanged. It is unknown whether or not the patient has had similar symptoms in the past. The patient has not recently seen a physician. Patient stated that while he was at dialysis today it was noted that he was in an irregularly irregular heart rate. They checked and was in atrial fibrillation. Was sent to the emergency room for further evaluation as patient does not have a history of A. fib. Heart rate currently was in the 130s. Patient denies any chest tightness, shortness of breath, dizziness or any other symptoms at this time. Was able to complete dialysis.. Historical: - Allergies: 11:01 No Known Allergies; ss - PMHx: 11:01 Anemia; COPD; Dialysis; M,W,F; Hypertension; Hypothyroidism; POLYCYSTIC KIDNEY DISEASE; ss RENAL FAILURE; bladder CA; - Immunization history:: Adult Immunizations up to date, Client reports receiving the 2nd dose of the Covid vaccine. - Social history:: Smoking status: Patient denies any tobacco usage or history of. ROS: 12:17 Constitutional: Negative for fever, chills, and weight loss, Respiratory: Negative for jr8 shortness of breath, cough, wheezing, and pleuritic chest pain. 12:17 Cardiovascular: Positive for palpitations. 12:17 All other systems are negative. Exam: 12:17 Constitutional: This is a well developed, well nourished patient who is awake, alert, jr8 and in no acute distress. ENT: Nares patent. No nasal discharge, no septal abnormalities noted. Tympanic membranes are normal and external auditory canals are clear. Oropharynx with no redness, swelling, or masses, exudates, or evidence of obstruction, uvula midline. Mucous membranes moist. Neck: Trachea midline, no thyromegaly or masses palpated, and no cervical lymphadenopathy. Supple, full range of motion without nuchal rigidity, or vertebral point tenderness. No Meningismus. Respiratory: Lungs have equal breath sounds bilaterally, clear to auscultation and percussion. No rales, rhonchi or wheezes noted. No increased work of breathing, no retractions or nasal flaring. Abdomen/GI: Soft, non-tender, with normal bowel sounds. No distension or tympany. No guarding or rebound. No evidence of tenderness throughout. Skin: Warm, dry with normal turgor. Normal color with no rashes, no lesions, and no evidence of cellulitis. MS/ Extremity: Pulses equal, no cyanosis. Neurovascular intact. Full, normal range of motion. Neuro: Awake and alert, GCS 15, oriented to person, place, time, and situation. Cranial nerves II-XII grossly intact. Motor strength 5/5 in all extremities. Sensory grossly intact. 12:17 Cardiovascular: Rate: tachycardic, Rhythm: irregularly irregular, Pulses: Pulses are 2+ in right radial artery and left radial artery. Heart sounds: normal, normal S1and S2, no S3 or S4, no murmur, no rub, no gallop, Edema: is not appreciated, JVD: is not appreciated. 12:42 ECG was reviewed by the Attending Physician. [facility] Vital Signs: 10:57 BP 112 / 60; Pulse 149; Resp 24; Temp 97.3(TE); Pulse Ox 96% 2 lpm ; Weight 79.83 kg; Height 5 ft. 10 in. (177.80 cm); Pain 0/10; 11:25 BP 111 / 67; Pulse 130; Resp 20; Pulse Ox 95% on 2 lpm NC; Weight 1.81 kg; vg1 12:21 BP 126 / 73; Pulse 130; vg1 12:30 BP 118 / 77; Pulse 114; Resp 22; Pulse Ox 96% on 2 lpm NC; vg1 12:45 BP 114 / 85; Pulse 125; Resp 22; Pulse Ox 98% on 2 lpm NC; vg1 13:00 BP 108 / 73; Pulse 119; Resp 22; Pulse Ox 97% on 2 lpm NC; vg1 13:20 BP 124 / 91; Pulse 130; Resp 22; Pulse Ox 98% on 2 lpm NC; vg1 13:40 BP 120 / 72; Pulse 118; Resp 18; Pulse Ox 97% on 2 lpm NC; vg1 14:00 BP 115 / 65; Pulse 137; Resp 18; Pulse Ox 95% on 2 lpm NC; vg1 11:25 Body Mass Index 0.57 (1.81 kg, 177.80 cm) vg1 MDM: 11:07 Patient medically screened. [facility] 12:17 Data reviewed: vital signs, nurses notes, lab test result(s), EKG, radiologic studies, [facility] plain films. Data interpreted: Pulse oximetry: on 2L(s) per nasal canula, is 95 %. Interpretation: acceptable. Counseling: I had a detailed discussion with the patient and/or guardian regarding: the historical points, exam findings, and any diagnostic results supporting the discharge/admit diagnosis, lab results, radiology results. 02/18 11:07 Order name: Basic Metabolic Panel [facility] 02/18 11:07 Order name: CBC with Diff [facility] 02/18 11:07 Order name: LFT's [facility] 02/18 11:07 Order name: Magnesium [facility] 02/18 11:07 Order name: NT PRO-BNP [facility] 02/18 11:07 Order name: PT-INR; Complete Time: 11:47 [facility] 02/18 11:07 Order name: Troponin (emerg Dept Use Only); Complete Time: 12:56 [facility] 02/18 11:07 Order name: Basic Metabolic Panel; Complete Time: 12:56 [facility] 02/18 11:07 Order name: CBC with Automated Diff; Complete Time: 11:47 [facility] 02/18 11:07 Order name: Liver (Hepatic) Function; Complete Time: 12:56 [facility] 02/18 11:07 Order name: Magnesium; Complete Time: 12:56 [facility] 02/18 11:07 Order name: NT PRO-BNP; Complete Time: 12:56 [facility] 02/18 11:22 Order name: TSH; Complete Time: 12:41 [facility] 02/18 11:22 Order name: T4 Free; Complete Time: 12:41 02/18 11:07 Order name: XRAY Chest (1 view); Complete Time: 12:41 02/18 11:07 Order name: EKG; Complete Time: 11:02/18 11:07 Order name: Cardiac monitoring; Complete Time: 11:02/18 11:07 Order name: EKG - Nurse/Tech; Complete Time: 02/18 11:07 Order name: IV Saline Lock; Complete Time: :02/18 11:07 Order name: Labs collected and sent; Complete Time: :02/18 11:07 Order name: O2 Per Protocol; Complete Time: 02/18 11:07 Order name: O2 Sat Monitoring; Complete Time: 02/18 13:33 Order name: SARS-COV-2 RT PCR; Complete Time: 14:13 [facility] 02/18 14:29 Order name: CONS Physician Consult [facility]MS EC:42 Rate is 133 beats/min. Rhythm is irregularly irregular, A fib. QRS Henderson is Normal. QRS jr8 interval is normal at 94 msec. QT interval is normal at 326 msec. No Q waves. T waves are Flattened in lead III. No ST changes noted. Clinical impression: Atrial Fibrillation. Interpreted by me. Reviewed by me. Administered Medications: 12:24 Drug: Metoprolol 5 mg Route: IVP; Site: right upper arm; vg1 15:08 Follow up: Response: No adverse reaction; No change in condition vg1 Disposition Summary: 02/18/21 13:09 Hospitalization Ordered Hospitalization Status: Observation jr8 Provider: Jorge Wright [facility] Location: Telemetry/MedSurg (observation) [facility] Condition: Stable [facility] Problem: new jr8 Symptoms: have improved jr Bed/Room Type: Standard [facility] Room Assignment: 231(02/18/21 14:57) dw Diagnosis - Persistent atrial fibrillation - with RVR jr Forms: - Medication Reconciliation Form jr8 - SBAR form 8 Addendum: 02/21/2021 20:32 Co-signature as Attending Physician, Korey Antonio MD PA/[employer]'s history reviewed, m a2 patient interviewed, and examined. I agree with assessment and care plan and confirm the diagnosis (es) above. Attestation: The patient's history, exam findings, diagnostics, and a summary of any interventions or procedures was reviewed in detail with Korey Antonio MD. Signatures: Dispatcher [employer] EDRI Janet Edmondson, RN RN Tamra Yuan RN RN ss Tomy Eddy PA PA jr8 Korey Antonio MD MD ok2 Irma Marshall RN RN vg1 Corrections: (The following items were deleted from the chart) 02/18 12:41 12:12 CORONAVIRUS+MR.LAB.BRZ ordered. [facility] EDRI 14:57 13:09 jr8 jaqui
--- NOTE | 2021-02-18 15:08 | P.HP ---
Certification for Inpatient Patient admitted to: Observation With expected LOS: <2 Midnights Patient will require the following post-hospital care: None Practitioner: I am a practitioner with admitting privileges, knowledge of patient current condition, hospital course, and medical plan of care. Services: Services provided to patient in accordance with Admission requirements found in Title 42 Section 412.3 of the Code of Federal Regulations Patient History Date of Service: 02/18/21 Primary Care Provider: Dr. Hope Reason for admission: afib with RVR History of Present Illness: This is a 75 y/o M with hypothyroidism, COPD, HTN, ESRD, bladder cancer who presents today for an episode of afib with RVR. He was at the dialysis center today and was noted to have a high heart rate. Patient completed entire dialysis session then came into ER. HR was in the 130-140s and IV metoprolol was given. He denies any chest pain, palpitations, lightheadedness. He reports throwing up this morning which is unusual for him. He thinks he felt his "heart flutter" once 30-40 years ago but never followed it up. CXR: FINDINGS: Background of chronic interstitial lung changes with increasing ill- defined airspace disease bilaterally though more pronounced in the left mid lung and left upper lobe. Cardiomegaly. No acute osseous abnormality. No significant pleural effusions or pneumothorax. IMPRESSION: Worsened aeration of the lungs with increasing ill-defined airspace opacities bilaterally, left greater than right, that could reflect pneumonia superimposed upon chronic lung changes. Allergies No Known Allergies Allergy (Verified 01/22/20 11:13) Home Medications: Aspirin [Aspirin EC] 81 mg PO DAILY 11/17/20 Atorvastatin Calcium 40 mg PO DAILY 11/17/20 Fluticasone/Salmeterol [Fluticasone-Salmeterol 113-14] 1 puff PO BID 11/17/20 Folic Acid/Vit B Complex and C [Aileen-Shari Tablet] 0.8 mg PO DAILY 11/17/20 Levothyroxine [Synthroid*] 88 mcg PO DAILY 11/17/20 Metoprolol Tartrate 25 mg PO BID 11/17/20 Omeprazole PO DAILY 11/17/20 Sennosides/Docusate Sodium [Colace 2-in-1 Tablet] PO DAILY 11/17/20 Sevelamer Carbonate 800 mg PO AC 11/17/20 hydrOXYzine HCL [Atarax*] 25 mg PO Q6H PRN 11/17/20 predniSONE [Deltasone*] 10 mg PO BID 7 Days #14 tab 11/19/20 - Past Medical/Surgical History Diabetic: No -: HTN -: Hypothyroid -: polycystic kidney -: diverticulitis -: COPD -: anemia -: CKD -: bladder cancer -: AAA repair -: Colonoscopy -: AAA repair Psychosocial/ Personal History: lives with - Family History Father -: Heart disease Mother -: Heart disease - Social History Smoking Status: Former smoker Alcohol use: No CD- Drugs: No Caffeine use: Yes Review of Systems 10-point ROS is otherwise unremarkable Physical Examination - Physical Exam General: Alert, In no apparent distress, Oriented x3, Cooperative HEENT: Atraumatic, Mucous membr. moist/pink, EOMI Neck: Supple Respiratory: Normal air movement, Other (98% on 2L NC) Cardiovascular: No edema, Irregular heart rate/rhythm (tachycardic at 130s) Capillary refill: <2 Seconds Gastrointestinal: Normal bowel sounds, Soft and benign, No tenderness, No guarding Musculoskeletal: No swelling, No contractures Integumentary: No rashes, No cyanosis Neurological: Normal speech, Normal tone, Normal affect - Studies Laboratory Data (last 24 hrs) 02/18/21 11:22: PT 15.5 H, INR 1.34 02/18/21 11:22: WBC 10.50, Hgb 10.3 L, Hct 30.9 L, Plt Count 188 02/18/21 11:22: Sodium 137, Potassium 4.1, BUN 19 H, Creatinine 4.29 H, Glucose 111 H, Magnesium 2.0, Total Bilirubin 0.8, AST 16, ALT 25, Alkaline Phosphatase 73 Assessment and Plan - Problems (Diagnosis) (1) Atrial fibrillation with RVR Current Visit: Yes Status: Acute (2) Pneumonia, unspecified organism Current Visit: Yes Status: Acute (3) COPD (chronic obstructive pulmonary disease) Current Visit: Yes Status: Chronic Qualifiers: COPD type: unspecified COPD Qualified Code(s): J44.9 - Chronic obstructive pulmonary disease, unspecified - Plan pt does not know how long he has been in afib monitor on telemetry cardiology consulted. awaiting recs restart home med-metoprolol 50mg BID nephrology consulted-Dr. Juarez following imaging suspicious for pneumonia will start rocephin and zithromax dvt prophylaxis: heparin Discharge Plan: Home Plan to discharge in: 24 Hours - Advance Directives Does patient have a Living Will: No Does patient have a Durable POA for Healthcare: No - Code Status/Comfort Care Code Status Assessed: Yes (full) Time Spent Managing Pts Care (In Minutes): 70
[2021-02-18] MEDS ORDERED: ONDANSETRON 4 MG/2 ML VIAL IV PRN (16:12)
[2021-02-18] MEDS ORDERED: ACETAMINOPHEN 500 MG TAB PO PRN (16:12)
[2021-02-18] MEDS: CEFTRIAXONE/SWI 1gm 1 GM/10 ML SYR IVP SCH (16:40)
[2021-02-18] MEDS: HEPARIN 5000 UNIT/ML 1 ML VIAL SQ SCH (16:40)
[2021-02-18] MEDS: AZITHROMYCIN IV 500 MG in NA CHLORIDE 0.9% 250 ML IVPB SCH (17:53)
--- NOTE | 2021-02-18 19:23 | P.CNS ---
Requesting Physician: chica tobin Primary Care Provider: Dr. 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 He denied having chest pain or SOB. He went to the ER & was noted to have afib w/ RVR. CXR done showed possible PNA. He is admitted for further eval & mngt. Allergies No Known Allergies Allergy (Verified 01/22/20 11:13) Home Medications: Levothyroxine [Synthroid*] 88 mcg PO DAILY 11/17/20 Albuterol Sulfate [Ventolin Hfa] 90 mcg IH SEECOM 02/18/21 Fluticasone/Umeclidin/Vilanter [Trelegy Ellipta 100-62.5-25] 1 puff IH DAILY 02/18/21 Folic Acid/Vitamin B Comp W-C [Aileen-Shari Tablet] 1 tab PO DAILY 02/18/21 Metoprolol Tartrate 1 tab PO DAILY 02/18/21 lisinopriL [Lisinopril] 1 tab PO DAILY 02/18/21 - Past Medical/Surgical History Diabetic: No -: HTN -: Hypothyroid -: polycystic kidney -: diverticulitis -: COPD -: anemia -: CKD -: bladder cancer -: AAA repair -: Colonoscopy -: AAA repair Psychosocial/ Personal History: lives with - Family History Father Medical History: Heart disease Mother Medical History: Heart disease - Social History Smoking Status: Current some day smoker Alcohol use: No CD- Drugs: No Caffeine use: Yes Place of Residence: Home Review of Systems General: Weakness Eyes: Unremarkable ENT: Unremarkable Respiratory: Unremarkable Cardiovascular: Other (tachycardia) Gastrointestinal: Unremarkable Genitourinary: Unremarkable Musculoskeletal: Unremarkable Integumentary: Unremarkable Neurological: Unremarkable Lymphatics: Unremarkable Physical Examination Temp Pulse Resp BP Pulse Ox 99.1 F 112 H 18 99/56 L 94 02/18/21 17:00 02/18/21 17:00 02/18/21 17:00 02/18/21 17:00 02/18/21 17:00 General: Other (appears as his stated age) HEENT: Atraumatic, Normocephalic Neck: Supple, JVD not distended Respiratory: Other (symmetric chest expansion) Cardiovascular: No rubs, No murmurs Gastrointestinal: Soft and benign, No guarding Musculoskeletal: No clubbing Integumentary: No warmth Neurological: Normal speech, Normal tone Lymphatics: No axilla or inguinal lymphadenopathy Urinary: Other (no bladder distention) External genitalia: Deferred Rectal: Deferred Laboratory Data (last 24 hrs) 02/18/21 11:22: PT 15.5 H, INR 1.34 02/18/21 11:22: WBC 10.50, Hgb 10.3 L, Hct 30.9 L, Plt Count 188 02/18/21 11:22: Sodium 137, Potassium 4.1, BUN 19 H, Creatinine 4.29 H, Glucose 111 H, Magnesium 2.0, Total Bilirubin 0.8, AST 16, ALT 25, Alkaline Phosphatase 73 Conclusions/Impression: # 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 Cueto, Oncology. Has follow up with his urologist [facility]. # New onset afib w/ RVR Cardiology consult # ? Pneumonia On empiric abx per primary team # Htn BP at goal # Anemia H/H at goal, monitor # Renal osteodystrophy Monitor Ca & Phos # COPD Mngt per primary team
[2021-02-18] MEDS ORDERED: IPRATROPIUM BROM 0.5MG/2.5ML NEB SCH (20:00)
[2021-02-18] MEDS: METOPROLOL TAR 50 MG TAB PO SCH (21:07)
[2021-02-19] MEDS: HEPARIN 5000 UNIT/ML 1 ML VIAL SQ SCH ×3 (00:06→17:00)
[2021-02-19 03:44] LABS: Absolute Lymphocytes (CBC) 1.6 K/uL (0.7-4.9); Basophils % 0.3 % (0-1.3); Hematocrit 28.7 % (39.6-49.0); MPV 9.1 fL (7.6-11.3); RBC Red Blood Cell Count 3.13 M/uL (4.33-5.43)
[2021-02-19 03:58] LABS: Albumin 3.1 g/dL (3.4-5.0); Phosphorus 5.1 mg/dL (2.5-4.9)
[2021-02-19 04:03] LABS: Potassium 5.3 mmol/L (3.5-5.1)
[2021-02-19] MEDS: METOPROLOL TAR 50 MG TAB PO SCH (09:17)
[2021-02-19] MEDS: CEFTRIAXONE/SWI 1gm 1 GM/10 ML SYR IVP SCH (09:17)
[2021-02-19] MEDS: AZITHROMYCIN IV 500 MG in NA CHLORIDE 0.9% 250 ML IVPB SCH (09:26)
[2021-02-19] MEDS ORDERED: MORPHINE 2 MG/ML SYR IV ONE (10:00)
--- NOTE | 2021-02-19 11:21 | RAD REPORT ---
EXAM DESCRIPTION: CT - Abdomen Pelvis Wo Contrast - 02/19/2021 10:51 am CLINICAL HISTORY: Abdominal pain. pain COMPARISON: Abdomen Pelvis Wo Contrast dated 08/27/2020 TECHNIQUE: CT imaging of the abdomen and pelvis was performed without contrast. Solid organ, bowel a nd vascular assessment is limited due to lack of IV and oral contrast. All CT scans are performed using dose optimization technique as appropriate and may include automated exposure control or mA/KV adjustment according to patient size. FINDINGS: Small bilateral pleural effusions are present with pulmonary edema and fibrotic appearance in both lung bases noted.Descending thoracic aorta shows mild dilatation at the level of distal thor acic aorta measuring up to 5.7 cm in transverse dimension. Several small liver cysts are present bilaterally. No intra or extrahepatic biliary tree dilatation i s seen.Cholecystectomy clips. Spleen, pancreas, adrenal glands are normal. Significant polycystic kidneys are present bilaterally. There is moderate right hydronephrosis and hydroureter present to the level of the UVJ. The bladder i s decompressed and prostate gland appears to project into the bladder base. Degree of the right UPJ o bstruction appear similar to the August study. Aortic endograft is in place. No bowel obstruction or free air. Mild free fluid is seen in the pelvis . Several diverticula stem from the sigmoid colon without diverticulitis. The appendix appears normal . Moderate L5-S1 degenerative spondylosis. IMPRESSION: Again seen is a right UVJ obstruction appearing similar in severity to August 2020. Small bilateral pleural effusions are seen with probable mild CHF/volume overload pattern in the lung bases. Polycystic kidneys bilaterally. A limited non-contrast examination was performed as detailed.
[2021-02-19] MEDS ORDERED: Levofloxacin500mg IV 500 MG/100 ML BAG IV ONE (12:00)
[2021-02-19] MEDS ORDERED: Levofloxacin 250mg IV 250 MG/50 ML BAG IV SCH (12:00)
--- NOTE | 2021-02-19 14:10 | RAD REPORT ---
EXAM DESCRIPTION: CTAbdomen Pelvis W Contrast - 02/19/2021 12:18 pm CLINICAL HISTORY: Abdominal pain. pain COMPARISON: Abdomen Pelvis W Contrast dated 03/08/2018; Abdomen Pelvis Wo Contrast dated ; Abdomen Pelvis Wo Contrast dated 08/27/2020; Chest Abd Pelvis Wo Con dated 11/17/2020 TECHNIQUE: Biphasic CT imaging of the abdomen and pelvis was performed with 100 ml non-ionic IV cont rast. All CT scans are performed using dose optimization technique as appropriate and may include automated exposure control or mA/KV adjustment according to patient size. FINDINGS: Mild motion degradation is present. Interstitial pulmonary edema and fibrotic changes are present lung bases. Small bilateral pleural eff usions are present, larger on the left. Dilatation of the descending thoracic aorta is present measur ing up to 5.7 cm. This appears mildly larger in size than the 2018 comparative study at which time th e dilatation measured 5.1 cm maximally.Aortic endograft is in place without unexpected finding. Several vague low-density hepatic lesions are present, likely small cysts and appearing unchanged. Th e gallbladder surgically absent. No intra or extrahepatic biliary tree dilatation. The spleen, pancreas and adrenal glands are normal. Polycystic kidneys are present bilaterally. Moderate right hydronephrosis and hydroureter is seen. Th ere is increased density within the ureter distally. There is an irregular mass lesion in the urinary bladder abutting the right UVJ measuring 3.0 x 2.5 cm. Trace free fluid is seen in the pelvis. Prominent sigmoid diverticulosis without diverticulitis. No bowel obstruction evident. No free fluid or abscess. Several small lymph nodes are present para-aort ic region bilaterally the largest on the left measuring 11 mm. Mild lower lumbar degenerative changes are present. No lytic or blastic bone lesion. IMPRESSION: 3 cm mass lesion is seen along the posterior right aspect of the urinary bladder abuttin g the right UVJ compatible with neoplasia. There are several smaller mucosal based lesions seen withi n the distal right ureter is well suspicious for synchronous neoplastic lesions. The findings within the bladder result in a moderate right-sided hydronephrosis and hydroureter. Degree of obstruction ap pear similar to the October 2020 study. Polycystic kidneys are present bilaterally. Mild size increase is seen descending thoracic aortic aneurysm since 2018. Bilateral pleural effusions with mild CHF/ volume overload findings in the lower lobes.
--- NOTE | 2021-02-19 14:40 | P.PN ---
Subjective Date of Service: 02/19/21 Primary Care Provider: Dr. Hope Chief Complaint: afib with RVR Subjective: Improving Review of Systems 10-point ROS is otherwise unremarkable Physical Examination - Vital Signs Temperature: 98.0 F Blood Pressure: 91/53 Pulse: 89 Respirations: 18 Pulse Ox (%): 94 - Physical Exam General: Alert, In no apparent distress HEENT: Atraumatic, PERRLA, EOMI Neck: Supple, JVD not distended Respiratory: Clear to auscultation bilaterally, Normal air movement Cardiovascular: Regular rate/rhythm, Normal S1 S2 Gastrointestinal: Normal bowel sounds, No tenderness Musculoskeletal: No tenderness Integumentary: No rashes Neurological: Normal speech, Normal tone, Normal affect Lymphatics: No axilla or inguinal lymphadenopathy - Studies Laboratory Data (last 24 hrs) 02/19/21 10:05: Troponin I 0.22 H 02/19/21 03:10: Phosphorus 5.1 H, Magnesium 2.0 02/19/21 03:10: Sodium 139, Potassium 5.3 H, BUN 33 H, Creatinine 6.45 H* D, Glucose 114 H, Triglycerides 61, Cholesterol 70, HDL Cholesterol 34 L, Cholesterol/HDL Ratio 2.06 02/19/21 03:10: WBC 10.50, Hgb 9.2 L, Hct 28.7 L, Plt Count 150 L D Medications List Reviewed: Yes Assessment & Plan - Problems (Diagnosis) (1) ESRD (end stage renal disease) Current Visit: Yes Status: Acute Plan: plans for dialysis tonight (2) Atrial fibrillation with RVR Current Visit: Yes Status: Acute Plan: Had a low blood pressure this morning. His metaprolol was held due to low bp. However controlling the rate will actually improve blood pressure,. Will switch him to carvedilol (3) COPD (chronic obstructive pulmonary disease) Current Visit: Yes Status: Chronic Plan: stable He has some mild fluid overload on the CT of the abdomen. Will most likely resolve with dialysis Qualifiers: COPD type: unspecified COPD Qualified Code(s): J44.9 - Chronic obstructive pulmonary disease, unspecified (4) Hematuria Current Visit: No Status: Acute Plan: secondary to the Polycystic kidney disease. No worsening of his disease. Will continue follow up . Qualifiers: Hematuria type: unspecified type Qualified Code(s): R31.9 - Hematuria, unspecified Discharge Plan: Home Plan to discharge in: 24 Hours - Code Status/Comfort Care Code Status Assessed: No Code Status: Full Code Critical Care: No Time Spent Managing Pts Care (In Minutes): 25
--- NOTE | 2021-02-19 15:12 | PN ---
Date of Progress Note: 02/19/2021 Subjective: The patient was admitted with chest pain, atrial fibrillation with RVR. The patient con tinued to have abdominal pain with hematuria. Physical Examination: Vital Signs: When I saw the patient; blood pressure 91/53, pulse of 89, afebrile. Chest: Clear to auscultation. Heart: S1, S2. Regular. Abdomen: Soft. Mild tenderness. No guarding or rebound. Extremities: No edema. Neurologic: Alert. No focal. Laboratory Data: WBC 10.5, H and H 9.2/28.7, sodium 139, potassium 5.3, bicarb 28, BUN 33, creatinin e 6.4, calcium 8.8, phosphorus 5.1, magnesium of 2. Current Medications: The patient is on: 1.Azithromycin. 2.Ceftriaxone. 3.Albuterol. 4.Metoprolol. 5.Zofran. Assessment And Plan: 1.End-stage renal disease. We will maintain the patient on dialysis schedule and we will monitor. 2.Hypertension. Currently hypotension. We will follow up Cardiology for the rate control. 3.Hematuria persist. The patient had history of polycystic kidney disease with possible currently t o have also pneumonia with the presence of persistent hematuria. I am going to change antibiotic to Levaquin to have more interstitial renal titration and to still have the coverage for the pneumonia. We will monitor. We will send for CT abdomen and pelvis. 4.Atrial fibrillation with rapid ventricular response by Cardiology. 5.Hyperkalemia. Going to be corrected with dialysis. TOM/MATTHEW Voice ID: [id number] Report ID: [id number]
[2021-02-19] MEDS ORDERED: CEFTRIAXONE 1 GM/NS 50 ML 1 GM/50 ML BAG IV SCH (16:00)
--- NOTE | 2021-02-19 20:24 | CON ---
Date of Consultation: 02/19/2021 Reason For Consultation: Atrial fibrillation with RVR. History Of Present Illness: A 75-year-old male, history of hypothyroidism, COPD, hypertension, end-s tage renal disease, bladder cancer, presents with palpitations, found to be in atrial fibrillation wi th RVR, was in dialysis center and noted to have a high heart rate. Presented to the emergency room. Heart rate was 130-140. Given IV metoprolol. At the time of my evaluation, the patient was in sin us rhythm. Past Medical History: As outlined above in the HPI. Medications: Refer to reconciliation sheet for detailed list. Allergies: NO KNOWN DRUG ALLERGIES. Social History: Does not smoke or drink. Does not use any drugs. Family History: No premature coronary artery disease or cancer. Review of Systems: There is no chest pain. Had palpitations. He has productive cough. No shortness of breath. No marjorie sea, vomiting, or diarrhea. No abdominal pain. No history of urinary urgency. All other systems re viewed are negative. Physical Examination: Vital Signs: Reviewed. Temperature is 98.7, pulse is 89, breathing at 18, blood pressure is 99/53, saturating 91%. General: Pleasant elderly male, in no distress. Head and Neck: Pupils are equal, reactive to light. Intact eye movements. No JVD. No cervical nod es. Neck: Supple. Thyroid is not enlarged. Lungs: Rhonchi bilaterally. No accessory muscle use or muscle retraction. Heart: Regular rate and rhythm. No extra sounds. Abdomen: Soft, nontender. Bowel sounds positive. No organomegaly. No masses or hernia. No rigidi ty or rebound. Extremities: No edema, clubbing, cyanosis. Intact pulses. Skin: No rashes. Neurologic: Alert, awake, oriented x3. No acute focal deficits appreciated. LYMPH NODES: No cervical or axillary lymphadenopathy. Investigations: Labs were reviewed. Troponin is 0.22, earlier was less than 0.02. The patient colten es having any chest pain. Assessment And Recommendations: 1.Atrial fibrillation with rapid ventricular response, converted to sinus rhythm. Blood pressure is on the low side. If unable to use beta-brayan, then load with amiodarone intravenously over 24 faisal rs. Otherwise, if the patient remains in sinus and able to take metoprolol, then I recommend 25 mg o f metoprolol by mouth twice a day and a form of anticoagulation like Eliquis 2.5 mg twice a day. Thi s patient has end-stage renal disease. He will benefit from left atrial appendage closure on the terrie d due to advanced kidney failure and chronic anemia. 2.Troponin elevation. No chest pain. Please do 2 further sets of troponins and obtain an echocardi ogram, and the patient follows up in our office. We will see if he had any recent stress test. If n ot, then I will recommend an evaluation with stress test versus coronary angiogram. We will see how the troponin trends and evaluate the echo and make a decision accordingly. Thank you for the consult. /MATTHEW Voice ID: [id number] Report ID: [id number]
[2021-02-19] MEDS: carvediloL 6.25 MG TAB PO SCH (23:53)
[2021-02-20] MEDS: HEPARIN 5000 UNIT/ML 1 ML VIAL SQ SCH ×3 (00:04→16:48)
[2021-02-20 06:22] LABS: Absolute Lymphocytes (CBC) 0.4 K/uL (0.7-4.9); Basophils % 0.2 % (0-1.3); Hematocrit 26.6 % (39.6-49.0); MPV 9.5 fL (7.6-11.3); RBC Red Blood Cell Count 2.83 M/uL (4.33-5.43)
[2021-02-20 06:41] LABS: Potassium 5.7 mmol/L (3.5-5.1)
[2021-02-20] MEDS: IPRATROPIUM BROM 0.5MG/2.5ML NEB PRN ×2 (08:17→21:30)
[2021-02-20] MEDS: ALBUTEROL 2.5 MG/3 ML NEB SOL NEB PRN ×2 (08:17→21:30)
[2021-02-20 08:51] LABS: Blood Morphology Comment NOT SEEN (NOT SEEN); Platelet Estimate ADEQ
[2021-02-20] MEDS: carvediloL 6.25 MG TAB PO SCH ×2 (09:00→21:20)
--- NOTE | 2021-02-20 09:44 | P.PN ---
Subjective Date of Service: 02/20/21 Primary Care Provider: Dr. Hope Chief Complaint: afib with RVR Subjective: New changes (had a hypoxic episode this morning) Review of Systems 10-point ROS is otherwise unremarkable Cardiovascular: Palpitations Physical Examination - Vital Signs Temperature: 98.1 F Blood Pressure: 107/53 Pulse: 80 Respirations: 18 Pulse Ox (%): 99 - Physical Exam General: Alert, In no apparent distress HEENT: Atraumatic, PERRLA, EOMI Neck: Supple, JVD not distended Respiratory: Clear to auscultation bilaterally, Normal air movement Cardiovascular: Regular rate/rhythm, Normal S1 S2 Gastrointestinal: Normal bowel sounds, No tenderness Musculoskeletal: No tenderness Integumentary: No rashes Neurological: Normal speech, Normal tone, Normal affect Lymphatics: No axilla or inguinal lymphadenopathy - Studies Laboratory Data (last 24 hrs) 02/19/21 10:05: Troponin I 0.22 H Medications List Reviewed: Yes Assessment & Plan - Problems (Diagnosis) (1) ESRD (end stage renal disease) Current Visit: Yes Status: Acute Plan: plans for dialysis tonight (2) Atrial fibrillation with RVR Current Visit: Yes Status: Acute Plan: Had a low blood pressure this morning. His metaprolol was held due to low bp. However controlling the rate will actually improve blood pressure,. Will switch him to carvedilol 02/20 Better controlled on the carvedilolg. Plan to discharge him home if ok with Dr. Mitchell and Liane (3) COPD (chronic obstructive pulmonary disease) Current Visit: Yes Status: Chronic Plan: stable He has some mild fluid overload on the CT of the abdomen. Will most likely resolve with dialysis Qualifiers: COPD type: unspecified COPD Qualified Code(s): J44.9 - Chronic obstructive pulmonary disease, unspecified (4) Hematuria Current Visit: No Status: Acute Plan: secondary to the Polycystic kidney disease. No worsening of his disease. Will continue follow up . Qualifiers: Hematuria type: unspecified type Qualified Code(s): R31.9 - Hematuria, unspecified Discharge Plan: Home Plan to discharge in: 24 Hours - Code Status/Comfort Care Code Status Assessed: No Critical Care: No Time Spent Managing Pts Care (In Minutes): 20
[2021-02-20] MEDS: AZITHROMYCIN IV 500 MG in NA CHLORIDE 0.9% 250 ML IVPB SCH (10:20)
--- NOTE | 2021-02-20 15:13 | PN ---
Date of Progress Note: 02/20/2021 Subjective: The patient was admitted with hematuria, chest pain with palpitation. The patient was e valuated by Cardiology. Heart rate has been stabilized. The patient had dialysis yesterday, tolerat ed the dialysis very well. Physical Examination: Vital Signs: Blood pressure 107/53, pulse of 80, afebrile. Over the night, the patient had hypoxemi a down to the 80 and had hypotension. Blood pressure down to the 81. Chest: Crackles bilateral base. Heart: S1, S2 irregular. Abdomen: Soft. Mild tenderness. No guarding or rebound. Extremities: No edema. Neuro: Alert, oriented x3. No focal. Laboratory Data: WBC 11.1, H and H 8.5/26.6. Sodium 138, potassium 5.7, bicarb 25, BUN 28, creatini ne 5.4, calcium 8.5, phosphorus 5.1, magnesium of 2. Current Medications: The patient on include; 1.Azithromycin. 2.Levaquin. 3.Carvedilol 6.25. 4.Tylenol. 5.Breathing treatment. Assessment And Plan: 1.End-stage renal disease with hyperkalemia. I am going to arrange for the patient for dialysis salty . We will dialyze the patient on low-potassium bath and we will monitor. 2.Hypertension, currently low blood pressure. Decrease carvedilol to 3.125. We will use sodium mod ule to establish better blood pressure during the dialysis as a step. 3.Hypoxemia. The patient has history of chronic obstructive pulmonary disease, now has a question o f obstructive sleep apnea. The patient is home oxygen dependent. I am going to go ahead and get [facility] x-ray to evaluate the fluid status for the patient. We will decide if the patient need any extra dialysis today. Depending on that, we will consult Pulmonary. 4.Bladder carcinoma with hydronephrosis with polycystic kidney disease with active hematuria. Byron garcia CT still showing the mass on the bladder with obstruction. The patient had appointment as outpat ient followup. The patient was cleared by Cardiology for that surgery. We are going to need Pulmona ry clearance also given the persistent of hematuria and polycystic kidney. We put the patient on Lev aquin for better penetration on the renal interstitium and we will follow up the patient. The patien t is going to need to keep his followup with Urology. ABDULAZIZ Voice ID: [id number] Report ID: [id number]
--- NOTE | 2021-02-20 17:28 | RAD REPORT ---
EXAM DESCRIPTION: Naveen Single View02/20/2021 5:21 pm CLINICAL HISTORY: COPD COMPARISON: February 19 2021 FINDINGS: No significant change in the bilateral pulmonary opacities, small pleural effusions and ca rdiomegaly
[2021-02-20 19:55] VITALS: BMI 25.1
[2021-02-21] MEDS: HEPARIN 5000 UNIT/ML 1 ML VIAL SQ SCH ×3 (01:00→16:50)
[2021-02-21] MEDS: IPRATROPIUM BROM 0.5MG/2.5ML NEB PRN ×2 (04:40→14:54)
[2021-02-21] MEDS: ALBUTEROL 2.5 MG/3 ML NEB SOL NEB PRN ×2 (04:40→14:54)
[2021-02-21 06:12] LABS: Absolute Lymphocytes (CBC) 0.9 K/uL (0.7-4.9); Basophils % 0.4 % (0-1.3); Hematocrit 25.4 % (39.6-49.0); Lymphocytes % 10.8 % (15.3-44.8); MPV 9.6 fL (7.6-11.3); RBC Red Blood Cell Count 2.76 M/uL (4.33-5.43)
[2021-02-21] MEDS: carvediloL 6.25 MG TAB PO SCH (08:07)
[2021-02-21] MEDS: AZITHROMYCIN IV 500 MG in NA CHLORIDE 0.9% 250 ML IVPB SCH (08:16)
[2021-02-21 11:43] VITALS: BP 115/58; TEMP 97.9
--- NOTE | 2021-02-21 12:09 | P.DS ---
Admission Date: 02/19/21 Discharge Date: 02/21/21 Primary Care Provider: Dr. Hope Disposition: ROUTINE DISCHARGE Discharge Condition: GOOD Reason for Admission: afib with RVR - Problems (1) ESRD (end stage renal disease) Current Visit: Yes Status: Acute (2) Atrial fibrillation with RVR Current Visit: Yes Status: Acute (3) COPD (chronic obstructive pulmonary disease) Current Visit: Yes Status: Chronic Qualifiers: COPD type: unspecified COPD Qualified Code(s): J44.9 - Chronic obstructive pulmonary disease, unspecified (4) Hematuria Current Visit: No Status: Acute Qualifiers: Hematuria type: unspecified type Qualified Code(s): R31.9 - Hematuria, unspecified Brief History of Present Illness: Patient was admitted for afib with rvr during dialysis Hospital Course: Patient is doing well on coreg. He was improving was to be sent home on Sunday. He had a few episodes of hypoxia and hypotension. The patient did not report any symptoms. However we held his discharge. He is doing better. Will have him see by Dr. Qiu . We can discharge him home if ok with Dr. Moore. Vital Signs/Physical Exam: Temp Pulse Resp BP Pulse Ox 97.9 F 80 16 115/58 L 98 02/21/21 11:42 02/21/21 11:42 02/21/21 11:42 02/21/21 11:42 02/21/21 11:42 General: Alert, In no apparent distress HEENT: Atraumatic, PERRLA, EOMI Neck: Supple, JVD not distended Respiratory: Clear to auscultation bilaterally, Normal air movement Cardiovascular: Regular rate/rhythm, Normal S1 S2 Gastrointestinal: Normal bowel sounds, No tenderness Musculoskeletal: No tenderness Integumentary: No rashes Neurological: Normal speech, Normal tone, Normal affect Lymphatics: No axilla or inguinal lymphadenopathy Laboratory Data at Discharge: WBC 7.90 K/uL (4.3-10.9) D 02/21/21 05:34 Hgb 8.3 g/dL (13.6-17.9) L 02/21/21 05:34 Hct 25.4 % (39.6-49.0) L 02/21/21 05:34 Plt Count 121 K/uL (152-406) L 02/21/21 05:34 PT 15.5 SECONDS (9.5-12.5) H 02/18/21 11:22 INR 1.34 02/18/21 11:22 Sodium 137 mmol/L (136-145) 02/21/21 05:34 Potassium 5.0 mmol/L (3.5-5.1) 02/21/21 05:34 BUN 46 mg/dL (7-18) H 02/21/21 05:34 Creatinine 7.80 mg/dL (0.55-1.3) H* D 02/21/21 05:34 Glucose 107 mg/dL (74-106) H 02/21/21 05:34 Phosphorus 5.1 mg/dL (2.5-4.9) H 02/19/21 03:10 Magnesium 2.0 mg/dL (1.8-2.4) 02/19/21 03:10 Total Bilirubin 0.8 mg/dL (0.2-1.0) 02/18/21 11:22 AST 16 U/L (15-37) 02/18/21 11:22 ALT 25 U/L (12-78) 02/18/21 11:22 Alkaline Phosphatase 73 U/L (45-117) 02/18/21 11:22 Troponin I 0.22 ng/mL (0.0-0.045) H 02/19/21 10:05 Triglycerides 61 mg/dL (<150) 02/19/21 03:10 Cholesterol 70 mg/dL (<200) 02/19/21 03:10 HDL Cholesterol 34 mg/dL (40-60) L 02/19/21 03:10 Cholesterol/HDL Ratio 2.06 02/19/21 03:10 Home Medications: Levothyroxine [Synthroid*] 88 mcg PO DAILY 11/17/20 Folic Acid/Vitamin B Comp W-C [Aileen-Shari Tablet] 1 tab PO DAILY 02/18/21 Aspirin [Aspirin EC 81 MG] 1 tab PO DAILY 02/19/21 Atorvastatin Calcium 1 tab PO BEDTIME 02/19/21 Calcium Carbonate 750 2 tab PO TID 02/19/21 Fluticasone/Umeclidin/Vilanter [Trelegy Ellipta 200-62.5-25] 1 puff IH DAILY 02/19/21 Furosemide [Lasix] 1 tab PO BID 02/19/21 Hydroxyzine HCl [Atarax] 1 tab PO TID 02/19/21 Carvedilol [Coreg] 3.125 mg PO BID 90 Days #180 tablet 02/20/21 Levofloxacin [Levaquin] 250 mg PO M,W,F #6 tablet 02/20/21 New Medications: Carvedilol [Coreg] 3.125 mg PO BID 90 Days #180 tablet Levofloxacin [Levaquin] 250 mg PO M,W,F #6 tablet Physician Discharge Instructions: PROBLEM: Atrial fibrillation GOAL: Clear understanding of disease process INSTRUCTIONS: Diet: heart healthy Activity: as tolerated If your symptoms worsen call 911 or go to the ED. Diet: Regular Followup: Mookie Nguyen MD [Primary Care Provider] - Time spent managing pt's care (in minutes): 20
--- NOTE | 2021-02-21 12:26 | P.CNS ---
Date of Consult: 02/21/21 Reason for Consult: COPD Primary Care Provider: Dr. Hope Chief Complaint: COPD History of Present Illness: Patient is 75 years of age anabolic syndrome bladder cancer presented to the hospital with atrial fibrillation rapid RVR he suddenly became worse was doing well until Sunday has some chest congestion a patient was stabilized still feeling a little weak pressures little on the low side Allergies No Known Allergies Allergy (Verified 01/22/20 11:13) Home Medications: Levothyroxine [Synthroid*] 88 mcg PO DAILY 11/17/20 Folic Acid/Vitamin B Comp W-C [Aileen-Shari Tablet] 1 tab PO DAILY 02/18/21 Aspirin [Aspirin EC 81 MG] 1 tab PO DAILY 02/19/21 Atorvastatin Calcium 1 tab PO BEDTIME 02/19/21 Calcium Carbonate 750 2 tab PO TID 02/19/21 Fluticasone/Umeclidin/Vilanter [Trelegy Ellipta 200-62.5-25] 1 puff IH DAILY 02/19/21 Furosemide [Lasix] 1 tab PO BID 02/19/21 Hydroxyzine HCl [Atarax] 1 tab PO TID 02/19/21 Carvedilol [Coreg] 3.125 mg PO BID 90 Days #180 tablet 02/20/21 Levofloxacin [Levaquin] 250 mg PO M,W,F #6 tablet 02/20/21 predniSONE [Deltasone*] 10 mg PO BID #20 tab 02/21/21 - Past Medical/Surgical History Diabetic: No -: HTN -: Hypothyroid -: polycystic kidney -: diverticulitis -: COPD -: anemia -: CKD -: bladder cancer -: AAA repair -: Colonoscopy -: AAA repair Psychosocial/ Personal History: lives with - Family History Father Medical History: Heart disease Mother Medical History: Heart disease - Social History Smoking Status: Current some day smoker Alcohol use: No CD- Drugs: No Caffeine use: Yes Place of Residence: Home Review of Systems General: Weakness Respiratory: Cough, Shortness of Breath Physical Examination Temp Pulse Resp BP Pulse Ox 97.9 F 80 16 115/58 L 98 02/21/21 11:42 02/21/21 11:42 02/21/21 11:42 02/21/21 11:42 02/21/21 11:42 General: Alert, Oriented x3, Cooperative Respiratory: Clear to auscultation bilaterally, Diminished Cardiovascular: No edema, Regular rate/rhythm - Problems (1) COPD (chronic obstructive pulmonary disease) Current Visit: Yes Status: Chronic Plan: Patient is 75 years of age with underlying COPD which is stable mated with Freya mora rapid RVR started on low-dose levofloxacin also recommend low-dose steroids continue with inhalers anticoagulated for A. fib denies any hematuria right now agree with low-dose Eliquis stable for discharge labs reviewed CT scan of the abdomen shows polycystic kidney disease he does have a mass in his bladder which is about 3 cm presumably responsible for the hematuria seen by nephrology pos sible discharge ambulate Qualifiers: COPD type: unspecified COPD Qualified Code(s): J44.9 - Chronic obstructive pulmonary disease, unspecified
--- NOTE | 2021-02-21 12:26 | PN ---
Mr. Kelly is 75 years old, was admitted by Dr. Guzman, has been followed by Dr. Rob for atrial fi brillation. The patient is in sinus rhythm today with occasional PVCs, rate of 80. O2 saturation montgomery s improved. His last creatinine is 6.45. He is on hemodialysis. His last hemoglobin is 8.5. His t roponin was 0.2. His BNP was 85,000. His TSH was 7.1, which needs to be addressed. His potassium w as 5.7. He remains on inhalers, antibiotics, metoprolol. He is not really a great candidate for ant icoagulation, but he should be on Eliquis for now. I think he eventually should have a Watchman proc edure, but we will have him follow up with Dr. Rob after discharge. BRENDA/MATTHEW Voice ID: [id number] Report ID: [id number]
[2021-02-21 15:55] VITALS: O2SAT 93
--- NOTE | 2021-02-22 01:59 | PN ---
Date of Progress Note: 02/21/2021 Chief Complaint: End-stage renal disease, hyperkalemia, potassium level has improved from 5.7 to 5.0 . The patient is scheduled to have dialysis today. There is no evidence of metabolic acidosis. The patient has multiple medical problems including history of end-stage renal disease. He has been nasir lyzed 3 times per week. The patient was admitted with gross hematuria. He had some chest pain and i t was associated with palpitations. The patient received dialysis to control hyperkalemia and potass ium level has improved. Review of Systems: Denies fever or chills. Physical Examination: Lungs: Clear to auscultation bilaterally. Heart: S1 and S2. Abdomen: Soft and benign. Extremities: No edema. Impression And Plan: 1.Chest pain. The patient was consulted by gun examiner. Currently, he is asymptomatic. Currently , the patient will continue Carvedilol for hypertension and patient may need further workup by Cardio logy. 2.Hematuria. The patient has bladder carcinoma, history of hydronephrosis, polycystic kidney diseas e. The patient will follow up with urologist. 3.Hypertension. Adjust blood pressure medication. Orthostatic hypotension. 4.Anemia, chronic and chronic kidney disease. Continue BRONWYN. 5.Hyperphosphatemia, mild. Continue binders and low-phosphorus diet. EB/MODL Voice ID: [id number] Report ID: [id number]
== END 2021-02-21 17:44 | disposition home or self-care (01) | DRG 308 ==
LOC: ER 10:48 → ERHOLD 14:27 → 2ND 15:22 → OBSVTOIN 02-19 14:00
PROVIDERS: ADMIT Internal Medicine; ATTEND Internal Medicine
PROC: 5A1D70Z Performance of Urinary Filtration, Intermittent, Less than 6 Hours Per Day (ICD-10-PCS; principal; 2021-02-19)
PROC: 5A1D70Z Performance of Urinary Filtration, Intermittent, Less than 6 Hours Per Day (ICD-10-PCS; 2021-02-21)
DX: I48.91 Unspecified atrial fibrillation (principal); J18.9 Pneumonia, unspecified organism; N18.6 End stage renal disease; I12.0 Hypertensive chronic kidney disease with stage 5 chronic kidney disease or end stage renal disease; Q61.3 Polycystic kidney, unspecified; J44.0 Chronic obstructive pulmonary disease with (acute) lower respiratory infection; E03.9 Hypothyroidism, unspecified; R09.02 Hypoxemia; C67.9 Malignant neoplasm of bladder, unspecified; R31.9 Hematuria, unspecified; R77.8 Other specified abnormalities of plasma proteins; D64.9 Anemia, unspecified; E83.39 Other disorders of phosphorus metabolism; I95.9 Hypotension, unspecified; E87.5 Hyperkalemia; Z99.2 Dependence on renal dialysis; Z20.822 Contact with and (suspected) exposure to COVID-19
CPT/HCPCS: 36415; 71045; 74176; 74177; 80048; 80061; 80076; 82040; 83735; 83880; 84100; 84439; 84443; 84484; 85025; 85610; 90935; 93005; 96374; 99285; G0378; J0456; J0696; J1644; J2270; J2405; J7050; Q9967; U0003

== ENCOUNTER 2021-06-01 15:58 | Inpatient (IN) | payer OTHER ==
--- OUTSIDE RECORDS SUMMARY | 2021-06-01 16:07 | XMS REPORT | Continuity of Care Document ---
:1945 Author Organization [facility] t Address [address] [place] [address] Care Team Providers Name Role Phone ALYSSA FARRIS Primary Care Physician Unavailable RAMESH HUANG Attending Clinician Unavailable ALYSSA FARRIS Attending Clinician Unavailable TONNY ACEVEDO Attending Clinician Unavailable JAMMIE SOLORZANO Attending Clinician Unavailable SUMANTH NOLAN Attending Clinician Unavailable Ramesh Huang MD Attending Clinician Yuliet WOOD Attending Clinician Alyssa Farris MD Attending Clinician Jasvir Dixon MD Attending Clinician Deb Oliveira CRNA Attending Clinician Thee Burton CRNA Attending Clinician Vishal Keen MD Attending Clinician Waqar Villatoro MD Attending Clinician Mattie Garcia NP Attending Clinician Adenike Ocampo NP Attending Clinician Tonny Acevedo MD Attending Clinician RAMESH HUANG Admitting Clinician Unavailable ALYSSA FARRIS Admitting Clinician Unavailable TONNY ACEVEDO Admitting Clinician Unavailable KAYDEN Admitting Clinician Unavailable Payers Payer Name Policy Type Policy Number Effective Expiration Source Date Date MEDICARE A B [id number] 2010 00:00:00 [employer] [id number] 2016 00:00:00 CDC REVIEW [id number] 2020 2020 00:00:00 00:00:00 MEDICAREMEDICARE PART [id number] Mi thodist A AND 00:00:00 Hospital [id number] 2009 [place] AND [id number] 2020 Methodis t CASUALTYBANKNovalux LIFE 00:00:00 Hosp ital AND [id number]/2020-PresentCommercia l Problems Condition Condition Condition Status Onset Resolution Last Treating Co mments Source Name Details Category Date Date Treatment Clinician Date 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 Medical 00 [place] Hematuria Hematuria Disease Active [facility] - [facility] Medical [place] Altered Altered Disease Active [facility] mental mental 3-05 [place] - status status 00:00: Medical 00 Center [...] understoo d and agreed with this decision. Hypertensi Hypertensi Disease Active Last [facility] on on 12-19 Assessharsh Oterokes - 00:00: t & Plan: Medical Continue Center managemen t with nephrolog y as prescribe d. Aortic Aortic Disease Active Last [facility] aneurysm aneurysm 12-19 Ass[facility] - 00:00: t & Plan: Medical Repaired Center with a stent in 2012. Polycystic Polycystic Disease Active [facility] kidney kidney 12-19 [facility] Center COPD COPD Disease Active Last [facility] (chronic (chronic 6-27 Assessmen [facility] - obstructiv obstructiv 00:00: t & Plan: Medical e e 00 [facility] Center pulmonary pulmonary d with disease) disease) inhalers. No history of smoking. Asthma Asthma Disease Active [facility] ESRD (end ESRD (end Disease Active [facility] stage stage [facility] - renal renal Medical disease) disease) Center Dialysis Dialysis Disease Active [facility] S t patient patient [facility] S/P S/P Disease Active [facility] carotid carotid [facility] - endarterec endarterec Mi dical [facility] Acute Acute Disease Active [facility] blood loss blood loss [facility] anemia anemia [facility] Hypovolemi Hypovolemi Disease Active C ND St c shock c shock [facility] 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 [facility] Bradycardi Bradycardi Disease Active C [facility] a a [facility] Hypothyroi Hypothyroi Disease Active C ND St dism, dism, [facility] - unspecifie unspecifie Me dical d type d type Center ESRD on ESRD on Disease Active [facility] hemodialys hemodialys [facility] is Medical Center Allergies, Adverse Reactions, Alerts Allergy Allergy Status Severity Reaction(s) Onset Inactive Treating Comm ents Source Name Type Date Date Clinician NO KNOWN Allergy Active [facility] ALL[facility]GIE S Family History Family Member Diagnosis Comments Start Date Stop Date Source Natural father Hypertension [facility] Natural father Heart disease [facility] Natural father Heart failure [facility] Natural mother Cancer [facility] Natural mother Hypertension [facility] Natural sister COPD [facility] Natural brother Cancer [facility] Natural daughter Polycystic kidney C HI [facility] Social History Social Habit Start Date Stop Date Quantity Comments Source History of tobacco Smoker [facility]igned [facility] Tobacco use and 2021-02-10 2021-02-10 Never used [facility] - exposure 00:00:00 00:00:00 Medical [place] Alcohol intake 2021-02-10 2021-02-10 Current [facility] - 00:00:00 00:00:00 non-drinker of Medical Ce nter alcohol (finding) History SDOH 2020-07-29 2020-07-29 1 [facility] Alcohol Frequency 00:00:00 00:00:00 Hospita l History SDOH 2020-07-29 2020-07-29 99 [facility] Alcohol Std Drinks 00:00:00 00:00:00 Hospit al History SDOH 2020-07-29 2020-07-29 1 [facility] Alcohol Binge 00:00:00 00:00:00 Hospital Smoking Status Start Date Stop Date Source Former smoker 2021-02-10 00:00:00 2021-02-10 00:00:[address] [facility] Medications Ordered Filled Start Stop Current Ordering [...] tablet 13:26: daily. Medical 08 Center calcium 2021-0 Yes 1{tbl} [id number] Take [address] carbonate 8-19 [id number] tablet by [facility] - (Calcium 13:26: 3D [...] as Center tablet needed for Sleep. albuterol 202- No 1{puff} Inhale [address] HFA [...] 00:00 mouth. Medica l capsule 29 :00 [place] levoFLOXaci 2020- No 250mg QD Take [address] n 4-27 04-27 mg by [facility] - (LEVAQUIN) 16:01: 00:00 mouth Medic al 250 MG 25 :00 daily. Center tablet predniSONE No 20mg QD Take [address] (DELTASONE) 10-19 04-27 by mouth [facility] - 20 MG 16:00: 00:00 daily. Medical tablet 39 :00 [place] metoprolol 2020- No 50mg Q.5D Take [address] tartrate - 03-22 by mouth 2 Luke s - [...] .4mg QD Take [address] (FLOMAX) - 04-11 capsule [facility] - 0.4 mg Cap 00:00: 23:59 (0.4 mg Med ical 24 hr 00 :00 total) by Center capsule mouth daily for 30 days. finasteride 2020- No 5mg QD Take [address] (PROSCAR) 5 - 04-11 tablet (5 Yuliet kes - mg tablet 00:00: 23:59 mg total) Me dical 00 :00 by mouth Center daily for 30 days. oxybutynin 2020- No 5mg [id number] Take [address] (DITROPAN) 3-11 04-10 [id number] tablet (5 [facility] - 5 MG tablet 00:00: 23:59 3D mg total) Medical 00 :00 by mouth 3 Center (three) times daily for 30 days. aspirin 81 0 2020- No 81mg QD Take [address] MG EC 3 04-10 tablet (81 [facility] - tablet 00:00: 23:59 mg total) Medic al 00 :00 by mouth Center daily for 30 days. levoFLOXaci 2020-0 2020- No 250mg QD Take [address] n 3-11 03-16 tablet [facility] - (LEVAQUIN) 00:00: 23:59 [...] QD Take 75 mg [facility] (PLAVIX) 75 07-[address] mg tablet 15:18: 00:00 daily. Hospi ta 02 :00 l metoprolol 2020- 25mg Take 25 mg [facility] tartrate 07-29- by mouth st (LOPRESSOR) 12:06: 00:00 as needed. Hospita 25 mg 31 :00 TAKES ONLY l tablet WHEN BLOOD PRESSURE IS ELEVATED clopidogreL 75mg QD Take 1 Met hodi (PLAVIX) [...] while taking narcotic based pain meds. traMADoL [id number] 50mg Q6H Take 1 Metho di (Ultram) [...] Name Observation Time Observation Value Comments Source HEIGHT 2021-03-28 07:15:00 177.8 cm WEIGHT 2021-03-28 07:15:00 79.379 kg HEIGHT 2021-03-09 13:19:00 170.2 cm WEIGHT 2021-03-09 13:19:00 80.287 kg HEIGHT 2020-10-19 16:05:00 177.8 cm WEIGHT 2020-10-19 16:05:00 78.019 kg WEIGHT 2020-08-27 22:30:00 82.555 kg HEIGHT 2020-01-29 00:00:00 177.8 cm WEIGHT 2020-01-29 00:00:00 82 kg WEIGHT 2021-04-21 08:33:00 77.883 kg WEIGHT 2021-03-31 09:03:00 77.474 kg HEIGHT 2021-03-28 07:15:00 177.8 cm WEIGHT 2021-03-28 07:15:00 79.379 kg HEIGHT 2021-03-09 13:19:00 170.2 cm WEIGHT 2021-03-09 13:19:00 80.287 kg WEIGHT 2021-03-24 13:30:00 79.47 kg WEIGHT 2021-02-10 13:25:00 78.427 kg WEIGHT 2021-01-13 09:28:00 78.245 kg WEIGHT 2020-12-07 10:31:00 78.79 kg WEIGHT 2020-11-04 09:27:00 78.835 kg HEIGHT 2020-10-23 02:16:00 170.2 cm WEIGHT 2020-10-23 02:16:00 87.544 kg HEIGHT 2020-10-22 20:27:00 177.8 cm WEIGHT 2020-10-22 20:27:00 81.647 kg HEIGHT 2020-10-23 02:16:00 170.2 cm WEIGHT 2020-10-23 02:16:00 87.544 kg HEIGHT 2020-10-22 20:27:00 177.8 cm WEIGHT 2020-10-22 20:27:00 81.647 kg WEIGHT 2020-09-30 13:46:00 77.202 kg WEIGHT 2020-09-13 16:11:00 79.425 kg WEIGHT 2020-08-27 22:30:00 82.555 kg HEIGHT 2020-02-26 00:00:00 177.8 cm WEIGHT 2020-02-26 00:00:00 82.101 kg HEIGHT 2020-02-26 00:00:00 177.8 cm WEIGHT 2020-02-26 00:00:00 82.101 kg HEIGHT 2020-01-29 00:00:00 177.8 cm WEIGHT 2020-01-29 00:00:00 82 kg WEIGHT 2020-02-03 00:00:00 83.462 kg HEIGHT 2020-02-03 00:00:00 177.8 cm Systolic blood 2021-02-10 13:25:00 131 mm[Hg] [facility] Diastolic blood 2021-02-10 13:25:00 65 mm[Hg] [facility] Heart rate 2021-02-10 13:25:00 101 /min [facility] Body temperature 2021-02-10 13:25:00 36.72 Jailyn [facility] Body weight 2021-02-10 13:25:00 78.427 kg [facility] BMI 2021-02-10 13:25:00 27.08 kg/m2 [facility] Respiratory rate 2020-10-27 17:00:00 18 /min [facility] Oxygen saturation in 2020-10-27 17:00:00 98 /min [facility] Arterial blood by Medical Ce nter Pulse oximetry Body height 2020-10-23 02:16:00 170.2 cm [facility] Systolic blood 2020-07-29 16:16:00 136 mm[Hg] [facility] pressure Diastolic blood 2020-07-29 16:16:00 65 mm[Hg] [facility] pressure Heart rate 2020-07-29 16:16:00 90 /min [facility] Body temperature 2020-07-29 16:16:00 37.17 Jailyn [facility] Oxygen saturation in 2020-07-29 16:16:00 95 /min [facility] Arterial blood by Pulse oximetry Respiratory rate 2020-07-29 16:15:00 12 /min [facility] Body height 2020-07-29 11:29:00 177.8 cm [facility] Body weight 2020-07-29 11:29:00 82.3 kg [facility] BMI 2020-07-29 11:29:00 26.03 kg/m2 [facility] Procedures Procedure Date / Time Performing Clinician Source Performed URINE CULTURE, ROUTINE 2021-01-13 15:02:00 Sebas Huang [facility] URINE CULTURE, ROUTINE 2020-11-04 15:40:00 Reina [facility] UA/M W/RFLX CULTURE, 2020-11-04 15:40:00 Sebas Huang [facility] MICROSCOPIC EXAMINATION 2020-11-04 15:40:00 Sebas Huang [facility] PREPARE LEUKO-REDUCED 2020-10-28 23:54:00 Keith [facility] TRANSFUSE LEUKO-REDUCED 2020-10-27 11:34:[address] [facility] RED BLOOD CELLS [facility] HEMODIALYSIS INPATIENT 2020-10-27 07:47:37 Keith [facility] BASIC METABOLIC PANEL 2020-10-27 04:39:00 Sebas Huang [facility] (7) [facility] CBC W/PLT COUNT & AUTO 2020-10-27 04:39:00 Suzan Magdaleno [facility] BASIC METABOLIC PANEL 2020-10-26 03:41:00 Reina [facility] (7) [facility] CBC W/PLT COUNT & AUTO 2020-10-26 03:41:00 Suzan Magdaleno [facility] TISSUE EXAM 2020-10-25 18:39:00 Sebas Huang [facility] CYSTOSCOPY,INSERTION 2020-10-25 17:37:00 Sebas Huang [facility] - URETERAL STENTS [facility] POTASSIUM 2020-10-25 13:16:00 Cuauhtemoc [facility] HEPATITIS B SURFACE 2020-10-25 09:18:00 Robert Hector [facility] HEMODIALYSIS INPATIENT 2020-10-25 08:42:58 Robert Hector [facility] BASIC METABOLIC PANEL 2020-10-25 06:09:00 Sebas Huang [facility] (7) [facility] PHOSPHORUS 2020-10-25 06:09:00 Jean Carlos [facility] CBC (HEMOGRAM ONLY) 2020-10-25 06:09:00 [facility] TYPE AND SCREEN, 2020-10-24 13:45:00 Sebas Huang [facility] - AUTOMATED [facility] HEPATITIS B SURFACE 2020-10-23 14:18:00 [facility] HEMODIALYSIS INPATIENT 2020-10-23 11:41:00 Jean Carlos [facility] BASIC METABOLIC PANEL 2020-10-23 04:31:00 Yuliet [facility] () [facility] CBC W/PLT COUNT & AUTO 2020-10-23 04:31:00 [facility]OV2/RT-[facility] ([facility] & 2020-10-22 23:20:00 Sebas Huang [facility] - REF LABS) [facility] CT ABDOMEN/PELVIS WITH 2020-10-22 21:31:00 Rayshawn Otero [facility] IV [facility] CBC W/PLT COUNT & AUTO 2020-10-22 21:12:00 [facility] URINE CULTURE 2020-10-22 11:48:00 Sebas Huang [facility] BASIC METABOLIC PANEL 2020-10-22 11:48:00 Sebas Huang [facility] (7) [facility] CBC W/PLT COUNT & AUTO 2020-10-22 11:48:00 Sebas Huang [facility] DIFFERENTIAL [facility] PT/APTT 2020-10-22 11:48:00 Sebas Huang [facility] TYPE AND SCREEN, 2020-10-22 11:48:00 Sebas Huang [facility] - AUTOMATED [facility] CT ABDOMEN/PELVIS WITH & 2020-09-21 13:12:[address] [facility] CONTRAST [facility] er MR ABDOMEN WITHOUT IV 2020-09-02 11:20:00 Reina, Sebas [facility] - CONTRAST [facility] MR PELVIS WITHOUT IV 2020-09-02 11:20:00 Sebas Huang [facility] TISSUE EXAM 2020-08-31 12:53:[address] [facility] - [facility] FL FLUORO NON-SPECIFIC 2020-08-31 12:50:[address] - UP TO 1 HOUR [facility] CYSTOSCOPY,INSERTION 2020-08-31 11:42:00 Sebas Huang [facility] [place] - URETERAL STENTS [facility] CBC W/PLT COUNT & AUTO 2020-08-31 04:50:00 OnArianna salcido [facility] COMPREHENSIVE METABOLIC 2020-08-31 04:50:00 Pedro Farris I [facility] MAGNESIUM 2020-08-31 04:50:00 Pedro Farris [facility] NM MYOCARDIAL PERFUSION 2020-08-30 16:44:00 Sebas Huang [facility] - SPECT, PHARM(LEXISCAN) [facility] enter HEMODIALYSIS INPATIENT 2020-08-30 11:55:05 Jluis Parker [facility] CBC W/PLT COUNT & AUTO 2020-08-30 05:14:00 OnArianna salcido [facility] LIPID PANEL 2020-08-30 05:14:00 Ty, [facility] 2D ECHO W/ DOPPLER 2020-08-29 13:22:39 Ty, [facility] (CW/PW/COLOR) [facility] T4, FREE 2020-08-29 12:22:00 Ty, [facility] TSH 2020-08-29 12:22:00 Ty, [facility] FERRITIN 2020-08-29 12:22:00 Ty, Humberto [facility] VITAMIN B12 2020-08-29 12:22:00 Ty, [facility] PSA 2020-08-29 12:22:00 Ty, Humberto [facility] US RENAL COMPLETE 2020-08-29 11:15:[address] [facility] CT BRAIN WITHOUT IV 2020-08-29 05:02:[address] [facility] TROPONIN I 2020-08-29 04:21:00 Em[facility] BASIC METABOLIC PANEL 2020-08-29 04:21:00 Jose Eduardo [facility] () [facility] CBC W/PLT COUNT & AUTO 2020-08-29 04:21:00 Jose Eduardo [facility] RETICULOCYTE COUNT 2020-08-29 04:21:00 Ty, [facility] OCCULT BLOOD, STOOL 2020-08-29 02:52:00 Owen Jhaveri [facility] TROPONIN I 2020-08-28 16:08:00 Owen Jhaveri [facility] HEPATITIS B SURFACE 2020-08-28 16:06:[address] Shard[address] [facility] ANTIGEN [facility] HEPATITIS B SURFACE 2020-08-28 15:26:[address] [facility] ANTIBODY [facility] HEMODIALYSIS INPATIENT 2020-08-28 11:36:37 Keith [facility] TROPONIN I 2020-08-28 05:56:00 Owen Jhaveri [facility] CBC W/PLT COUNT & AUTO 2020-08-28 05:56:00 Pedro Farris [facility] BASIC METABOLIC PANEL 2020-08-28 05:56:00 Pedro Farris [facility] (7) [facility] ECG 12-LEAD 2020-08-28 01:21:18 Unknown, Hl7 Doctor [facility] HEMOGLOBIN A1C 2020-08-28 01:19:00 Owen Jhaveri [facility] URINE CULTURE 2020-08-28 01:05:00 [facility] W/ REFLEX 2020-08-28 01:05:00 Owen Jhaveri [facility] URINE CULTURE [facility] CBC W/PLT COUNT & AUTO 2020-08-28 01:05:00 [facility] DIFFERENTIAL [facility] COMPREHENSIVE METABOLIC 2020-08-28 01:05:[address] [facility] MAGNESIUM 2020-08-28 01:05:00 Owen Jhaveri [facility] PHOSPHORUS 2020-08-28 01:05:00 [facility] PROTHROMBIN TIME/INR 2020-08-28 01:05:00 Owen Jhaveri [facility] HEPATIC FUNCTION PANEL 2020-08-28 01:05:00 Emilio [facility] LIPID PANEL 2020-08-28 01:05:00 [facility] REPORT OF PROCEDURE - 2020-08-27 00:00:00 ProviderYoko [facility] ENDOSCOPY SCAN [facility] [place] AN ELECTIVE 2020-07-29 14:11:47 Rafael Blas Ho spital ENDOTRACHEAL AIRWAY THROMBECTOMY, GRAFT, AV 2020-07-29 13:39:00 Jose Keen [facility] POTASSIUM, SYRINGE 2020-07-29 13:00:00 Jose Keen [facility] POTASSIUM, SYRINGE 2020-07-29 12:11:00 Jose Keen [facility] HEMOGLOBIN, SYRINGE 2020-07-29 12:11:00 [facility] GLUCOSE LEVEL, SYRINGE 2020-07-29 12:11:00 Jose Keen [facility] ECG PRE/POST OP 2020-07-27 21:26:54 [facility] HEMOGLOBIN A1C 2020-07-27 21:19:00 [facility] HEMOGLOBIN 2020-07-27 21:19:00 Keen, Jose [facility] POTASSIUM LEVEL 2020-07-27 21:19:00 Keen Jose [facility] GLUCOSE LEVEL 2020-07-27 21:19:00 [facility] COVID-19 QUALITATIVE 2020-07-27 20:57:00 [facility] RT-PCR RHYTHM STRIP - SCAN 2020-02-19 12:30:59 Provider, Default [facility] Plan of Care Planned Activity Planned Date Details Comments Source Future Scheduled 2021-08-[address] [facility] - Test 00:00:00 malignant neoplasm of Medica l Center colon (procedure) [code = 538401390] Future Scheduled 2021-02-23 INFLUENZA VACCINE (#1) C [...] 00:00:00 (1 of 1 - Medical Center [id number] PCV13) [code = PNEUMOCOCCAL 65+ YRS (1 of 1 - [id number] PCV13)] Future Scheduled 1995 SHINGLES VACCINES ([address] [facility] - Test 00:00:00 of 2) [code = SHINGLES Medic al Center VACCINES (1 of 2)] Future Scheduled 1964 DTAP/TDAP/TD VACCINES [facility] Test 00:00:00 (1 - Tdap) [code = Medical C enter DTAP/TDAP/TD VACCINES (1 - Tdap)] Future Scheduled 1963 HE[facility]ITIS [facility] Test 00:00:00 [code = HEPATITIS C Medical Center SCREENING] Future Scheduled Hepatitis C screening Me [facility] Test (procedure) [code = 737617120] Future Scheduled COLONOSCOPY SCREENING [facility] Test [code = COLONOSCOPY SCREENING] Future Scheduled SHINGLES VACCINES (#1) [facility] [code = SHINGLES VACCINES (#1)] Future Scheduled COVID-19 VACCINE (2 - [facility] Test Pfizer 2-dose series) [code = COVID-19 VACCINE (2 - Pfizer 2-dose series)] Future Scheduled INFLUENZA VACCINE [facility] Test [code = INFLUENZA VACCINE] Encounters Start End Encounter Admission Attending Care Care Encounter Source Date/Time Date/Time Type Type Clinicians Facility Department ID [facility]04[facility]03 [id number] SLS 11:01:56 SEBAS 2021-04-02 [facility] [id number] SLSL 16:32:40 SEBAS 2021-04-02 Inpatient [facility] [id number] SLS 06:41:40 [facility] 2021-03-30 Inpatient [facility] Surgery [id number] SLE 02:21:06 BIN 2021-06-07 2021-06-07 Outpatient [facility]LINA [facility] [id number] SLE 00:00:00 00:00:00 DORA 2021-05-26 2021-05-26 Outpatient [facility]LINA [facility] [id number] SLE 00:00:00 00:00:00 BIN 2021-04-26 2021-04-26 Outpatient [facility] [id number] SLS 13:26:28 23:59:00 2021-04-26 2021-04-26 Outpatient ADELINA HUANG [facility] [id number] SLS 13:26:17 23:59:00 SEBAS 2021-04-21 2021-04-21 Outpatient REINA [facility] [id number] [facility] 08:21:47 09:25:29 [facility] 2021-04-12 2021-04-12 Outpatient REINA [facility] [id number] 00:[facility]00 00:00:00 [facility] 2021-03-31 2021-03-31 Outpatient REINA [facility] [id number] 08:49:29 10:07:05 [facility] 2021-03-24 2021-03-24 Outpatient REINA, [facility] [id number] 00:00[facility]00 00:00:00 [facility] 2021-03-24 2021-03-24 Outpatient SLSL [facility] [id number] SLSL 00:00:00 00:00:00 2021-03-24 2021-03-24 Outpatient EL [facility] [id number] SLSL 00:00:00 00:00:00 2021-03-22 2021-03-22 Outpatient REINA [facility] [id number] 00:[facility]00 00:00:00 [facility] 2021-03-17 2021-03-17 Outpatient REINA [facility] [id number] 00:[facility]00 00:00:00 [facility] 2021-03-17 2021-03-17 Outpatient EL SLSL [facility] [id number] SLSL 00:00:00 00:00:00 2021-03-11 2021-03-11 Outpatient EL SLSL [facility] [id number] SLSL 00:00:00 00:00:00 2021-02-17 2021-02-17 Telephone Reina [facility] [id number] 00:[facility]00 00:00:00 [facility] 2021-02-10 2021-02-10 Procedure Reina [facility] [id number] 13:12:47 14:02:58 visit [facility] 2021-01-27 2021-01-27 Outpatient REINA [facility] [id number] 00:00[facility]00 00:00:00 [facility] 2021-01-27 2021-01-27 Orders Reina [facility] [id number] [facility] 00:[facility]00 00:00:00 Only [facility] 2021-01-13 2021-01-13 Office Reina [facility] [id number] 08:59:50 10:28:11 Visit [facility] 2020-12-07 2020-12-07 Office Reina [facility] [id number] 09:28:24 11:43:01 Visit [facility] 2020-12-02 2020-12-02 Telephone Reina [facility] [id number] 00:00[facility]00 00:00:00 [facility] 2020-11-04 2020-11-04 Office Reina [facility] [id number] 08:50:13 10:38:54 Visit [facility] 2020-10-28 2020-10-28 Outpatient EL SLSL [facility] [id number] SLSL 00:00:00 00:00:00 2020-10-22 2020-10-27 [facility] Lyndsey OteroManuel [facility] [id number] [facility] 20:30:00 17:53:00 Encounter Pedro Farris [facility] 2020-10-25 2020-10-25 Anesthesia Cuauhtemoc Dixon [facility] [id number] [facility] 17:37:00 18:41:00 Event Emili Oliveira [facility] 2020-10-25 2020-10-25 Surgery Reina [facility] [id number] 13:30:00 14:45:00 [facility] 2020-10-23 2020-10-23 Travel [facility] [id number] [facility]00 [facility] 2020-10-22 2020-10-22 Hospital [facility] [id number] 11:47:21 20:29:00 Encounter [facility] 2020-10-22 2020-10-22 Emergency ER [facility] Emergency [id number] [facility] 20:14:00 20:14:00 2020-10-22 2020-10-22 Outpatient EL [facility] [id number] [facility] 00:00:00 00:00:00 2020-10-19 2020-10-19 Travel [facility] [id number] [facility]00 [facility] 2020-10-19 2020-10-19 [facility] [id number] [id number] 00[facility]00 [facility] 2020-10-06 2020-10-06 [facility] [id number] [id number] 00:[facility] 00:[facility]:00 [facility] 2020-09-30 2020-09-30 Office [facility] [id number] 13:08:05 14:49:10 Visit [facility] 2020-09-21 2020-09-21 [facility] [id number] 12:18:35 23:59:00 Encounter [facility] 2020-09-21 2020-09-21 Outpatient EL [facility] [id number] [facility] 00:00:00 00:00:00 2020-09-20 2020-09-20 [facility] [id number] [facility] 00:00:00 00:00:00 2020-09-16 2020-09-16 Outside [facility] [id number] 00:[facility] 00:00:00 Orders [facility] 2020-09-13 2020-09-13 Office [facility] [id number] 15:09:40 17:08:47 Visit [facility] 2020-08-27 2020-09-02 Hospital Pedro Becerra [facility] [id number] [id number] 22:17:00 14:43:00 Encounter [facility] 2020-08-31 2020-08-31 Anesthesia Cuauhtemoc Dixon [facility] [id number] [facility] 11:42:00 13:11:00 Event Carroll Burton [facility] 2020-08-31 2020-08-[address] [facility] [id number] 11:00:00 12:15:00 [facility] 2020-08-28 2020-08-28 Orders [facility] [id number] 00:00:00 00:00:00 Only [facility] 2020-08-27 2020-08-27 Travel [facility] [id number] [facility] 00:[facility]00 00:00:00 [facility] 2020-08-26 2020-08-26 Office Kayden 1.2.840.1 [id number] Methodi 14:27:45 16:08:33 Visit Jose Rodgers 99040.1.[address] 3.430.2.7 Hospit a .3.064738 l .8 2020-08-26 2020-08-26 Travel 1.2.840.1 1.2.854.428 [id number] Methodi 00:00:00 00:00:[address] 3.430.2.7 0.2.7.3.698 Ho spita .3.301932 084.8 l .8 2020-08-02 2020-08-02 Travel 1.2.840.1 1.2.893.295 [id number] Methodi 00:00:00 00:00:[address] 3.430.2.7 0.2.7.3.698 noeta .3.624987 084.8 l .8 2020-07-30 2020-07-30 [facility], 1.2.840.6 [id number] Methodi 00:00:00 00:00:00 Jose Rodgers 09580.1.[address] 3.430.2.7 Hospit a .3.354873 l .8 2020-07-29 2020-07-29 [facility] 1.2.840.1 [id number] 21 [id number] Methodi 05:10:00 11:27:00 Encounter Jose Rodgers 21539.1.[address] 3.430.2.7 Hospit a .3.563134 l .8 2020-07-29 2020-07-29 [facility] 1.2.840.1 [id number] Methodi 07:30:00 09:25:00 Jose Rodgers 09529.1.[address] 3.430.2.7 Hospit a .3.687103 l .8 2020-07-29 2020-07-29 Anesthesia Saud Villatoro 1.2.840.1 [id number] Methodi 07:40:00 09:17:00 Event Rose Garcia 74060.1.[address] 3.430.2.7 Hospit a .3.142726 l .8 2020-07-29 2020-07-29 [facility] Damaris, 1.2.840.1 [id number] 21 [id number] Methodi 00:00:00 00:00:00 Only Derrick Jeong 13516.1.[address] 3.430.2.7 Hospit a .3.097045 l .8 2020-07-29 2020-07-29 Travel 1.2.840.1 1.2.873.168 [id number] Methodi 00:00:00 00:00:[address] 3.430.2.7 0.2.7.3.698 Ho spita .3.533103 084.8 l .8 2020-07-27 2020-07-27 Pre-Admiss Kayden, 1.2.840.1 [id number] Methodi 14:35:19 15:35:19 ion Jose RJey 26145.1.[address] Testing 3.430.2.7 Hospit a .3.456156 l .8 2020-07-27 2020-07-27 Travel 1.2.840.1 1.2.742.010 [id number] Methodi 00:00:00 00:00:[address] 3.430.2.7 0.2.7.3.698 Ho spita .3.090141 084.8 l .8 2020-07-23 2020-07-23 Telephone Kayden, 1.2.840.9 [id number] Methodi 00:00:00 00:00:[address] 3.430.2.7 Hospit a .3.953060 l .8 2020-07-23 2020-07-23 Travel 1.2.840.1 1.2.780.075 [id number] Methodi 00:00:00 00:00:[address] 3.430.2.7 0.2.7.3.698 Ho spita .3.997123 084.8 l .8 2020-07-22 2020-07-22 Office Keen, 1.2.840.2 [id number] Methodi 14:38:20 15:37:56 Visit Jose Rodgers 52543.1.[address] 3.430.2.7 Hospit a .3.600877 l .8 2020-07-21 2020-07-21 Travel 1.2.840.1 1.2.045.441 [id number] Methodi 00:00:00 00:00:00 30725.1.1 350.1.13.43 9 3.430.2.7 0.2.7.3.698 Ho spita .3.102253 084.8 l .8 2020-02-26 2020-02-[address] [facility] [address] [id number] [facility] 10:18:16 10:14:49 Visit [facility] 2020-02-26 2020-02-26 Outpatient [facility]DELINA [facility] [id number] [facility] 00:00:00 00:00:00 BIN 2020-02-03 2020-02-03 Outpatient [facility] [id number] [facility] 00:00:00 00:00:00 BIN 2020-01-30 2020-01-30 Outpatient [facility] [id number] [facility] 00:00:00 00:00:00 Results Test Description Test Time Test Comments Results Result [facility] e Comments CT, CHEST, WITH 2021-05-02 Unlisted Reason CONTRAST 15:08:00 for Exam - Click Yes and [facility] Enter Reason [facility] Below->No CENTERName: Robbie LONDON : 1945 Sex: M FINAL REPORT CT Chest with contrast; CT abdomen and pelvis without and with contrast History:Bladder cancer Comparison:none Technique: serial axial imaging was performed without and subsequently following up to 100cc of non ionic iodinated intravenous contrast as per departmental protocol. Multiplanar images are reconstructed and reviewed when indicated. This CT examination is performed using one or more of the following dose reduction techniques: Automated exposure control, adjustment of the mA and /or kV according to patient size, and/or use of iterative reconstruction technique. Findings:No mediastinal or hilar lymphadenopathy. Normal size heart. No pericardial effusion. There is diffuse aneurysmal dilation of the descending thoracic aorta as well as the suprarenal abdominal aorta measuring up to 5.7 cm in caliber. There is no evidence of aneurysm rupture. No central pulmonary arterial filling defect. Patent central airways. Small bilateral pleural effusions. No pneumothorax is appreciated. Calcified granulomata within the lungs are consistent with previous granulomatous disease. Severe underlying pulmonary emphysema with areas of fibrosis. Unremarkable appearance of pancreas and spleen. Calcified granulomata within the spleen are consistent with previous granulomatous disease. The patient is status post cholecystectomy. There are multiple scattered simple appearing cysts throughout the liver which measure up to 2.2 cm in size. These require no further imaging follow-up. Liver is otherwise unremarkable. Unremarkable appearance of the adrenal glands. Severe right hydronephrosis is noted. Moderate right hydroureter is also noted. Eccentric thickening of the anterior aspect of the right mid ureter is best appreciated on axial delayed, image 58. There is also increased attenuation of the distal right ureter extending to the right ureterovesicular junction, suspicious for an intraluminal defect. Assessment is limited by lack of contrast excretion from the right kidney. The bladder is also decompressed, which limits evaluation. Both kidneys are largely replaced by innumerable simple and hemorrhagic cortical cysts.. No small or large bowel obstruction. No apparent bowel wall thickening. Moderate sigmoid diverticulosis is noted. No findings to indicate acute appendicitis. No free fluid or lymphadenopathy. There are changes of previous endovascular repair of an infrarenal abdominal aortic aneurysm by means of a patent aortobiiliac stent graft. No aggressive osseous lesion. Impression: 1. Severe right hydronephrosis. Increased attenuation of the distal right ureter, extending to the right ureterovesicular junction, suspicious for an intraluminal defect/mass. There is also a focus of eccentric thickening within the anterior mid right ureter, which is also suspicious for an intraluminal defect/mass. Further assessment limited by lack of contrast excretion from the right kidney.2. Decompressed urinary bladder, limiting evaluation.3. Both kidneys are largely replaced by innumerable simple and hemorrhagic cysts.4. 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 Vascular surgery consultation is recommended. No current evidence of aneurysm rupture.5. Previous endovascular repair of infrarenal abdominal aortic aneurysm. 6. Severe underlying pulmonary emphysema with areas of fibrosis. Signed: Milo Hampton MDReport Verified Date/Time: 05/02/2021 15:08:26 , ABDOMEN 2021-05-02 Unlisted Reason 15:08:00 for Exam - Click Yes and [facility] Enter Reason [facility] Below->[facility] CENTERName: Robbie LONDON this procedure C : require oral 1945 Sex: contrast?->No M FINAL REPORT CT Chest with contrast; CT abdomen and pelvis without and with contrast History:Bladder cancer Comparison:none Technique: serial axial imaging was performed without and subsequently following up to 100cc of non ionic iodinated intravenous contrast as per departmental protocol. Multiplanar images are reconstructed and reviewed when indicated. This CT examination is performed using one or more of the following dose reduction techniques: Automated exposure control, adjustment of the mA and /or kV according to patient size, and/or use of iterative reconstruction technique. Findings:No mediastinal or hilar lymphadenopathy. Normal size heart. No pericardial effusion. There is diffuse aneurysmal dilation of the descending thoracic aorta as well as the suprarenal abdominal aorta measuring up to 5.7 cm in caliber. There is no evidence of aneurysm rupture. No central pulmonary arterial filling defect. Patent central airways. Small bilateral pleural effusions. No pneumothorax is appreciated. Calcified granulomata within the lungs are consistent with previous granulomatous disease. Severe underlying pulmonary emphysema with areas of fibrosis. Unremarkable appearance of pancreas and spleen. Calcified granulomata within the spleen are consistent with previous granulomatous disease. The patient is status post cholecystectomy. There are multiple scattered simple appearing cysts throughout the liver which measure up to 2.2 cm in size. These require no further imaging follow-up. Liver is otherwise unremarkable. Unremarkable appearance of the adrenal glands. Severe right hydronephrosis is noted. Moderate right hydroureter is also noted. Eccentric thickening of the anterior aspect of the right mid ureter is best appreciated on axial delayed, image 58. There is also increased attenuation of the distal right ureter extending to the right ureterovesicular junction, suspicious for an intraluminal defect. Assessment is limited by lack of contrast excretion from the right kidney. The bladder is also decompressed, which limits evaluation. Both kidneys are largely replaced by innumerable simple and hemorrhagic cortical cysts.. No small or large bowel obstruction. No apparent bowel wall thickening. Moderate sigmoid diverticulosis is noted. No findings to indicate acute appendicitis. No free fluid or lymphadenopathy. There are changes of previous endovascular repair of an infrarenal abdominal aortic aneurysm by means of a patent aortobiiliac stent graft. No aggressive osseous lesion. Impression: 1. Severe right hydronephrosis. Increased attenuation of the distal right ureter, extending to the right ureterovesicular junction, suspicious for an intraluminal defect/mass. There is also a focus of eccentric thickening within the anterior mid right ureter, which is also suspicious for an intraluminal defect/mass. Further assessment limited by lack of contrast excretion from the right kidney.2. Decompressed urinary bladder, limiting evaluation.3. Both kidneys are largely replaced by innumerable simple and hemorrhagic cysts.4. 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 Vascular surgery consultation is recommended. No current evidence of aneurysm rupture.5. Previous endovascular repair of infrarenal abdominal aortic aneurysm. 6. Severe underlying pulmonary emphysema with areas of fibrosis. Signed: Milo Hampton [facility] Verified Date/Time: 05/02/2021 15:08:26 UE EXAM 2021-03-29 Surgical Pathology 15:37:48 Report Case: [id number] Authorizing Provider: Sebas Huang, Collected: 03/28/2021 09:09 AM Ordering Location: [facility] Received: 03/28/2021 10:51 AM SERVICES Pathologist: Ariana Victor MD Specimens: A) - Bladder Tumor, Bladder tumor arising from right ureteral orifice B) - Bladder Biopsy, Wall, Posterior bladder wall A. 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 Posterior bladder wallSpecimen A is received in fixative and labeled with the patient's name, medical record number and designated as "bladder tumor"and consists of multiple pink-red tissue fragments measuring 5.5 x 5.5 x 4.0 cm in aggregate. The specimen Is entirely submitted into A1 through A21. Specimen B is received in fixative and labeled with the patient's name, medical record number and designated as "bladder biopsy wall" and consists of a pink-pineda tissue fragment that is 0.5 cm in greatest dimension. The tissue fragment is entirely submitted into B1. MG/pl A-B Performed [facility], Department of Pathology, [address] [place] [address], [facility], Department of Pathology, [address] [place] [address], [facility], [address] [place] [address], POTASSIUM 2021-03-28 07:31:01 Test Item Value Reference Range Interpretation Comme nts POTASSIUM (BEAKER) (test code = 379) 5.9 meq/L 3.6-5.5 H Network Control Operator ID - DSENSONOperator ID - DSENSONOperator ID - DSENSONOperator ID - DSENSONURINE [id number] 08:30:07 Test Item Value Reference Range Interpretation Comments CULTURE (BEAKER) (test code = 1095) No growth SARS-COV2/RT-PCR ([facility])2021-03-25 04:37:04 Test Item Value Reference Range Interpretation Comments SARS-COV2/RT-PCR (test code = Negative Negative [id number]) Negative result for this test determines that SARS-CoV-2 RNA was not present in the specimen above the Limit of Detection (LOD). However, Negative results do not preclude SARS-CoV-2 infection and should not be used as the sole basis for treatment or patient management decisions. Negative results must be combined with clinical observations, patient history, and epidemiological information. A false negative result may occur if a specimen is improperly collected, transported, or handled. A false negative result should be considered if patient's recent exposures or clinical presentation indicate that COVID-19 (SARS-CoV-2) is likely and diagnostic tests for other causes of illness are negative. Re-testing should be considered in cases of suspected false negatives.The limit of detection for this assay is 100 copies/mL.This SARS-CoV-2 test is a real-time RT_PCR test intended for the qualitative detection of nucleic acid from SARS-CoV-2 in a nasopharyngeal swab specimen collected from individuals suspected of COVID-19 by their healthcare provider.This test has not been Food and Drug Administration (FDA) cleared or approved. This is a modified version of an approved Emergency Use Authorization (EUA) and is in the process of review by the FDA. Once authorized by the FDA, the issued EUA will be e ffective until the declaration that circumstances exist justifying the authorization of the emergency use of in vitro diagnostic tests for detection and/or diagnosis of COVID-19 is terminated under Section 564(b)(2) of the Act or the EUA is revoked under Section 564(g) of the Act.Testing was performedusing the [employer] SARS-CoV-2 assay.Fact Sheet for Healthcare Providers:https://www.molecular.goddard/burak/RT SARS-CoV-2 HCP Fact Sheet 51- 524499.pdfFact Sheet for Healthcare Patients:https://www.molecular.goddard/burak/RT SARS-CoV-2 Patient Fact Sheet EN 51-079953V3.pdfBASI METABOLIC [id number] 13:21:06 Test Item Value Reference Range Interpretation Comments SODIUM (BEAKER) 139 meq/L 135-148 (test code = 381) POTASSIUM (BEAKER) 4.8 meq/L 3.6-5.5 (test code = 379) CHLORIDE (BEAKER) 101 meq/L 98-106 (test code = 382) CO2 (BEAKER) (test 24 meq/L 20-29 code = 355) BLOOD UREA NITROGEN 30 mg/dL 10-26 H (BEAKER) (test code = 354) CREATININE (BEAKER) 6.26 mg/dL 0.50-1.20 H (test code = 358) GLUCOSE RANDOM 139 mg/dL 70-110 H (BEAKER) (test code = 652) CALCIUM (BEAKER) 9.2 mg/dL 8.5-10.5 (test code = 697) EGFR (BEAKER) (test 9 mL/min/1.73 ESTIMAT ED GFR IS code = 1092) sq m NOT ACCURATE CREATININE CLEARANCE IN PREDICTING GLOMERULAR FILTRATION RATE . ESTIMATED GFR I S 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 Network Control Operator ID - DSENSONOperator ID - DSENSONOperator ID - DSENSONOperator ID - DSENSONOperator ID - DSENSONOperator ID - DSENSONOperator ID - DSENSONOperator ID - DSENSONOperator ID - DSENSONOperator ID - DSENSONOperator ID - DSENSONOperator ID - DSENSONOperator ID - DSENSONCBC W/PLT COUNT & AUTO [id number] 13:08:14 Test Item Value Reference Range Interpretation Comments WHITE BLOOD CELL COUNT (BEAKER) 8.7 K/ L 4.0-10.0 (test code = 775) RED BLOOD CELL COUNT (BEAKER) 3.14 M/ L 4.20-5.80 L (test code = 761) HEMOGLOBIN (BEAKER) (test code = 9.5 GM/DL 13.0-16.8 L 410) HEMATOCRIT (BEAKER) (test code = 31.9 % 36.0-50.0 L 411) MEAN CORPUSCULAR VOLUME (BEAKER) 101.6 fL 82.0-99.0 H (test code = 753) MEAN CORPUSCULAR HEMOGLOBIN 30.3 pg 27.0-33.0 (BEAKER) (test code = 751) MEAN CORPUSCULAR HEMOGLOBIN CONC 29.8 GM/DL 32.0-36.0 L (BEAKER) (test code = 752) RED CELL DISTRIBUTION WIDTH 20.8 % 12.0-15.0 H (BEAKER) (test code = 412) PLATELET COUNT (BEAKER) (test 107 K/CU MM 150-430 L code = 756) MEAN PLATELET VOLUME (BEAKER) 10.7 fL 6.0-11.5 (test code = 754) NUCLEATED RED BLOOD CELLS 0 /100 WBC 0-0 (BEAKER) (test code = 413) NEUTROPHILS RELATIVE PERCENT 72 % (BEAKER) (test code = 429) LYMPHOCYTES RELATIVE PERCENT 21 % (BEAKER) (test code = 430) MONOCYTES RELATIVE PERCENT 6 % (BEAKER) (test code = 431) EOSINOPHILS RELATIVE PERCENT 1 % (BEAKER) (test code = 432) BASOPHILS RELATIVE PERCENT 0 % (BEAKER) (test code = 437) NEUTROPHILS ABSOLUTE COUNT 6.24 K/ L 1.80-8.00 (BEAKER) (test code = 670) LYMPHOCYTES ABSOLUTE COUNT 1.81 K/ L 1.48-4.50 (BEAKER) (test code = 414) MONOCYTES ABSOLUTE COUNT (BEAKER) 0.52 K/ L 0.00-1.30 (test code = 415) EOSINOPHILS ABSOLUTE COUNT 0.10 K/ L 0.00-0.50 (BEAKER) (test code = 416) BASOPHILS ABSOLUTE COUNT (BEAKER) 0.01 K/ L 0.00-0.20 (test code = 417) IMMATURE GRANULOCYTES-RELATIVE 0 % 0-0 PERCENT (BEAKER) (test code = 2801) URINE [id number] 11:41:14 Test Item Value Reference Range Interpretation Comments CULTURE (BEAKER) (test <10,000 col/mL skin code = 1095) ramírez RAD, CHEST, 2 [id number] 13:50:00Reason for exam:->pre opShould this be performed at the bedside?->[facility] 1945 Sex: MFINAL REPORT Exam: RAD, CHEST, 2 VIEWSDate: 03/11/2021 1:49 PM Indication:pre opComparison: None FINDINGS: Lines/Tubes:None Lungs:Multifocal bilateral interstitial scarring is noted. Superimposed interstitial infection is difficult to exclude. Lungs are hyperexpanded. Pleura:No pleural effusion. No pneumothorax. Heart/Mediastinum:Cardiomediastinal silhouette is enlarged. Negat mylene for vascular congestive changes. Bones/Soft Tissues: No acute osseous abnormality. Upper abdomen: Unremarkable. IMPRESSION:Hyperexpanded lungs with multifocal coarsened interstitial airspace opacities. Findings are probably related to chronic scarring, partially visualized on CT dated 10/22/2020. C orrelate for any acute symptoms and if clinically indicated a follow-up CT of the chest can be considered. Signed: Norbert Edward MDReport Verified Date/Time: 03/11/2021 13:50:52 [facility] BASI MET[employer]OLIC [id number] 12:05:00 Test Item Value Reference Range Interpretation Comments SODIUM (BEAKER) 138 meq/L 135-148 (test code = 381) POTASSIUM (BEAKER) 5.3 meq/L 3.6-5.5 (test code = 379) CHLORIDE (BEAKER) 100 meq/L 98-106 (test code = 382) CO2 (BEAKER) (test 25 meq/L 20-29 code = 355) BLOOD UREA NITROGEN 41 mg/dL 10-26 H (BEAKER) (test code = 354) CREATININE (BEAKER) 5.60 mg/dL 0.50-1.20 H (test code = 358) GLUCOSE RANDOM 155 mg/dL 70-110 H (BEAKER) (test code = 652) CALCIUM (BEAKER) 9.5 mg/dL 8.5-10.5 (test code = 697) EGFR (BEAKER) (test 10 mL/min/1.73 ESTIMA RADHA GFR IS code = 1092) sq m NOT ACCURATE CREATININE CLEARANCE IN PREDICTING GLOMERULAR FILTRATION RATE . ESTIMATED GFR I S 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 Network Control Operator ID - DSENSONOperator ID - DSENSONOperator ID - DSENSONOperator ID - DSENSONOperator ID - DSENSONOperator ID - DSENSONOperator ID - DSENSONOperator ID - DSENSONOperator ID - DSENSONOperator ID - DSENSONOperator ID - DSENSONOperator ID - DSENSONOperator ID - DSENSONPROTHROMBIN TIME/[id number] 11:43:47 Test Item Value Reference Range Interpretation Comments PROTIME (BEAKER) 11.6 seconds 9.3-12.0 Final Infor mation (test code = 759) (Auto Outp ut) INR (BEAKER) (test 1.05 See_Comment Final Inf ormation code = 370) (Auto Output) [Automated mess age] The system [employer] generated this result transmitted ref erence range: <=5.90. The reference range was not used to int erpret this result as normal/abnormal . RECOMMENDED COUMADIN/WARFARIN INR THERAPY RANGESSTANDARD DOSE: 2.0 - 3.0 Includes: PROPHYLAXIS forvenous thrombosis, systemic embolization; TREATMENT for venous thrombosis and/or pulmonary embolus.HIGH RISK: Target INR is 2.5-3.5 for patients with mechanical heart valves.CBC W/PLT COUNT & AUTO DIFFERENTIAL 2021-03-11 11:38:07 Test Item Value Reference Range Interpretation Comments WHITE BLOOD CELL COUNT (BEAKER) 19.4 K/ L 4.0-10.0 H (test code = 775) RED BLOOD CELL COUNT (BEAKER) 3.40 M/ L 4.20-5.80 L (test code = 761) HEMOGLOBIN (BEAKER) (test code = 10.1 GM/DL 13.0-16.8 L 410) HEMATOCRIT (BEAKER) (test code = 32.9 % 36.0-50.0 L 411) MEAN CORPUSCULAR VOLUME (BEAKER) 96.8 fL 82.0-99.0 (test code = 753) MEAN CORPUSCULAR HEMOGLOBIN 29.7 pg 27.0-33.0 (BEAKER) (test code = 751) MEAN CORPUSCULAR HEMOGLOBIN CONC 30.7 GM/DL 32.0-36.0 L (BEAKER) (test code = 752) RED CELL DISTRIBUTION WIDTH 20.6 % 12.0-15.0 H (BEAKER) (test code = 412) PLATELET COUNT (BEAKER) (test 154 K/CU MM 150-430 code = 756) MEAN PLATELET VOLUME (BEAKER) 10.4 fL 6.0-11.5 (test code = 754) NUCLEATED RED BLOOD CELLS 0 /100 WBC 0-0 (BEAKER) (test code = 413) NEUTROPHILS RELATIVE PERCENT 88 % (BEAKER) (test code = 429) LYMPHOCYTES RELATIVE PERCENT 7 % (BEAKER) (test code = 430) MONOCYTES RELATIVE PERCENT 5 % (BEAKER) (test code = 431) EOSINOPHILS RELATIVE PERCENT 0 % (BEAKER) (test code = 432) BASOPHILS RELATIVE PERCENT 0 % (BEAKER) (test code = 437) NEUTROPHILS ABSOLUTE COUNT 16.97 K/ L 1.80-8.00 H (BEAKER) (test code = 670) LYMPHOCYTES ABSOLUTE COUNT 1.29 K/ L 1.48-4.50 L (BEAKER) (test code = 414) MONOCYTES ABSOLUTE COUNT (BEAKER) 0.90 K/ L 0.00-1.30 (test code = 415) EOSINOPHILS ABSOLUTE COUNT 0.02 K/ L 0.00-0.50 (BEAKER) (test code = 416) BASOPHILS ABSOLUTE COUNT (BEAKER) 0.02 K/ L 0.00-0.20 (test code = 417) IMMATURE GRANULOCYTES-RELATIVE 1 % 0-0 H PERCENT (BEAKER) (test code = 2801) URINE CULTURE, [id number] 04:06:00 Test Item Value Reference Range Interpretation Comments Urine Culture, SEE NOTE CULTURE, UR INE, Routine (test ROUTINE Nm crossing flagman code = 7274314) Number: [id number] Test Status: Final Specimen Source: URINE Specimen Qualit y: Adequate Resul t: Growth o f mixed ramírez was isolated, sugge sting probable contamination. No further testing will be performed. If clinically weston cated, recollection us ing a method to minim ize contamination, with prompt transfer to Urine Culture Tra nsport Tube, is recomm ended. ТАТЬЯНА (test code = COULD NOT GET AN ТАТЬЯНА) ANSWER AT DR OFFICE TO VERIFY TEST 953029 [facility] W/RFLX CULTURE, [id number] 22:06:00 Test Item Value Reference Range Interpretation Comments Specific Goldsmith, UA 1.014 1.005-1.03 (test code = 2965-2) pH, UA (test code = >=9.0 5.0-7.5 A 5803-2) Color, UA (test code [place]on Yellow = 9796-4) Appearance (test code Cloudy Clear A = 4624342) WBC Esterase (test 1+ Negative A code = 1002812) Protein, UA (test 3+ Negative/T A code = 34968-0) Glucose, Urine (test Trace Negative A code = 59375-6) Ketones, UA (test Negative Negative code = 2514-8) Blood, UA (test code 3+ Negative A = 36314-0) Bilirubin, UA (test Negative Negative code = 5770-3) Urobilinogen,Semi-Qn 0.2 mg/dL 0.2-1 (test code = 5606058) Nitrite, UA (test Negative Negative code = 12932-8) Microscopic See below: Microscopic was Examination (test indicated and was code = 8607132) performed. Urinalysis Reflex Comment This speci men has (test code = 0974615) reflex ed to a Urine Culture. ТАТЬЯНА (test code = ТАТЬЯНА) Performed at: [address] [place] [address] [id number] Director: Calderon Silver MD, Phone: [phone] Lab Interpretation Abnormal (test code = 25336-0) [facility] DiegoMICROSCOPIC [id number] 22:06:00 Test Item Value Reference Range Interpretation [...] ТАТЬЯНА (test code = ТАТЬЯНА) Performed at: [facility] [id number] Director: Calderon Silver MD, Phone: [phone] Lab Interpretation Abnormal (test code = 30494-8) [facility] Diego[facility]are Leuko-Red [id number] 23:54:00 Test Item Value Reference Range Interpretation Comments CROSSMATCH (test code = 2264) COMPATIBLE Unit ABO (test code = O Pos 4504903) UNIT NUMBER (test code = [id number] 934-0) Status (test code = 9622341) TX_TIMEINCHART Blood Bank Product (test code RED BLOOD CELLS = 2263) PRODUCT CODE (test code = R1221F43 933-2) [facility] DiegoTissue [id number] 10:04:00 Test Item Value Reference Range Interpretation Comments Case Report (test code Surgical Pathology = 104) Report Case: [id number] Authorizing Provider: Sebas Huang, Collected: 10/25/2020 06:39 PM Ordering Location: [address] Med/Surg Received: 10/26/2020 07:45 AM Pathologist: Ariana Victor MD Specimens: A) - Bladder Tumor, Bladder clots and right ureteral tumor B) - Bladder Biopsy, Left Wall, left bladder wall C) - Bladder Biopsy, Wall, posterior bladder wall DIAGNOSIS (test code = b9rfuNScUIYca5smWNKhfZ 3220) FuZzEwMzNcZnRuYmpcdWMx IHtccnRmMVxlcGljOTIwMl xplyDlADYjtOUpN5Fxcacj LKmfWE2cKN9zfGtigTXszJ GrASWqQdGex3xiy205mOCr j7xwSJAMwgtwtFp4oWlsA5 4py5T7ItorE24vrDAhBEke bGFpblxmczIwIEEuIEJMQU VOTVApW8pZWKPsVR5QXZPZ L2tZVMRNLHYQTuZKUYUIXU 2HOYJAYF2VV0s4IKUxkyBf KLMjYYmYF6zgO0UPKEDaKB PXZJvLZGoWZBPKJUEGAF2X KSKhUM0jHPBBUXCGZ0UOQX 8QCX0BDFtKCZ4PSlwLY0Ij XA5TR2KCW4gKYPWJPGRHSl FOVUxBVElPTiBUSVNTVUUg Gd9XUTRVXS1MLQUtixSvCU PqVLFCAU1DZUbANnGWEPNz KV5SBzZMSKETLNFDZCMBCL 1JTkEgUFJPUFJJQVxwYXIg ICAgLSBOTyBERUZJTklUSV PWWW7YE3RAYHGTZLToYCLQ SQJMEOYFZuPICoCJML5IZO VXLpRASaUXHQTODR6NWNAx kiqjLTXaEz6pSOMBFAWHPS BKVSHIJOwOQHstTDAIH9LL WOictWPyNZNeZX2aNCOJCG fBFXvVMIZSFZHLQ9TlUE2N D4SXEKKZIOCUVrSLOJtDJ9 5MHsVDITZxukJbVBEhDQ4W TZ3RE6VGLTADEKTdFSDBZC PCYPSJZgJHLlQJDE0CVWXJ ZbBJJaHYLQUNIK1GREXbwW OsIAYalxXDHxMML4ZTKQNJ U4LtGzwPRQDLCfSNZDpMIA LRAD9ZS9e7WHVmbdCiKMMo TQYYD3TNENzGRKetBMEDR3 JRJRNMEWoTMTeUGVQUD6Tp YOAQKHdTLE8WMOXjkJHdSE JhHO8kBIHOA9QMVSXZOxMS Nr7NFfnUTVyKLEBLSLAETp ShkVPmNRHncuRUEq4joNsn HQX2y3ohvERrGAFrpMOvFC AwMFxhbnNpXGRlZmxhbmcx CIOaVRV3ntWkLFDqOIinOI AkTVwgFl4yaVFovSpvNpLi GEUdq8jafkKFwomntEv3n9 yhOMEhUsX2cFZfEBqoG3eo udQdcUIcDTNcAVg8lA21JN SszA3wjZRzFXymnxXtTeA3 LSwfQLLgZfB0GJPqvHMvCE UlG3axVNBqHYueGZRcFZgb dBMrHTZ0iQkbb9D1cWYfxJ UkjEfjHpDzZkXjWiTCi0Va JJo0eRsvG4MmUPOxHtP6uY QgUGFyYWdyYXBoIEZvbnQ7 uB73QEtkblF1aVDlh2Eqd1 5sb421eP4sqLPpRKB9DIPa EAKnkAJjUXBnFXT4DISgxG JgN5xrBDPcWH0prodpMCui EQrsUSIlxDH0QQHowJKnV9 FrIMFdOMgxVOPjtbp3TsPo Pm9ccXPgsHhsUIrdq0kdi1 sbmXNpUof8CJFdJjWyOujs DJyjk8Psl5cpFXFzgu8jYJ G9wPKfxYsdd8G3yZPpEKAh oQEeDRQbHI4lzQKfTLPwfW 5ucmxjXHBnYnJkcmhlYWRc jJngkaBzGl5weSzhIFT0AB evG2ccxP2bUbA4IEucN3kh uJ9xZTj6LZoaRGQwnLL0ne S1PZNomAIaU1RfjP4eOYEo JB6suax0g5jnFRY8BHsaJK SaYeU4bzX6FYRsyYSaWLGp vJwlVYxde966TGQ0WlHtKL Pdy8CnQ8OcaCnrK53duAdl A52iPZXgvMlgcJ9yqGgcgR 5jStYeEcUqJJdwvJrvOS4y TUJzQ7offRFuYWUnZHZcD6 ujZhObgI1ltSfuWWvmvdKm PTEyKnd5KSVzoVYdLRWtAg j8RYNbZONbC83bygxgYUT9 cQ0zi1afp2VeTLimESS3TF Ypc62tEPvtyjD1SOnyEg40 JXglExD7ZZakYGB5jL== CPT Code(s) (test code v8abnQXmXCYwzLM8ZoDsVK = 3357) Wpu4rkp4VerDDdaDIpWFif kEGqulOxyk48rTH3zI78RC 4iPHQoJrM4OHIfqeG1Ber1 LPAxEXXnkTFkU623z8syn1 jtipHzwPO5lBgcCPWoAWMi YWluXGZzMjAgODgzMDUgeD NccGFyfQ== CLINICAL HISTORY (test n5tdrDMpWOHzuDP5NvUwMW code = 3356) Hty4ygx7KtzWCbeIDqYCgi tEIgcpHagz09yXI4vF78WD 7lHILrHwU9OZGdwrL1Cld1 OQHdZETggHWlW611s8yow5 anjrIsaJY2jImlLBWoZDRc DGynDKVlXyUxBWXkMWB6fm otZNMgb4JjA3fmkTEuTYM1 tXPtZZJyNXKqdsIjUIM2yN 5gLHLukc1= SPECIMEN SOURCE (test f3jnbMOpFEGwgCI9CxQpLT code = 3377) Wni3nbx2GqfWHueJRoIXfm zBEprhFzkf25wNK1aK88IZ 0yAGGtNlZ8GDMwfdU7Qeb6 GCFfGOHxfVSvB145t2wcp1 uuyhKceWH9uRxaDNLvGMOl KFmxJMSiObZqPH4aSbivZC OpwxJvwD95qdBpeiAlwubo aHQgdXJldGVyYWwgdHVtb3 F9FTYeCUukRwCgQcxcWDIe diI2FXgrTtMJVvMUm5R2DO Bap5NlKzlsCIJpncK1OZhp XHBhcn0= GROSS DESCRIPTION (test y5rcmJSgXGSsnNQ7FvMjWD code = 3366) Mca6kvb4DguQUrzVNlNPck gBCiqeXfxf46pNJ6xX45WP 0xKTArZmT3KICefvG1Nju7 YLEkBAHqcMEeJ697v9kqo5 wsuaPihXO4yTtrMPUoAOKz MZxtBUBpMkNaC3MrW4drOG 4gQSBpcyByZWNlaXZlZCBp hrQrnHfzgCz4KJVaofPqlA VdISopOSF7nHMqXUMiMRWy ANBaMP63M6RyrdWpVUewvM VkaWNhbCByZWNvcmQgbnVt MyBdMAJbBKLhMOBsU54fnZ VkIGFzICJibGFkZGVyIHR1 gA6vJkYluxAjS71kq3dvrX Uwo7EmmIKieDcjzNAlduQs URVep3fsWBJrj6T8YPZomr YleDXbgBGxqSYew2GevL0w XGovRSK3PNLsFZA2JJOjNK MutL2jUDhgIKQaJWKokFGb VLnkOFRvyQHal3YsDWVcRO BkrPntJE03dMkkr1AvYyov w7GzX3rykW1hWv3cTSbeeA tyj9GcHFWjVFkuWX82qcPl cmUgaWRlbnRpZmllZCBtZW FpjVRejwrsZH00ZNdaXG9r UHtiYM09YZXkERkqYGHeD5 XlF3J9MI7mAMpvWAPoe2X7 ZSBmcmFnbWVudHMgYXJlIG ZeeOnuEUz8DSY1Hk8zqMQh ZCBpbnRvIEExIHRvIEEyIG FuZCByZXByZXNlbnRhdGl2 PYOvJYW7bL0fjuSzNmC8tT SxJbhfz6LpH8bjbVRmpmEj l2PnsXg9gPFhMIrojW2fJL MuICBccGFyXHBhciBTcGVj fY7luuAIWVtiKHUgJ5Fnyx QuUTzdVRAgjJO3xZJmYLYd ZCBsYWJlbGVkIHdpdGggdG taULIfiRhdhfLkkaEtIT9s QDPuXBOwA5LzKHZoQ59kEE SxaE7iTIViAK5eJFDou4vj xfM2QQZfOACxMpYrPNJmZI LkRlejfMC9VKlcPrIth1Fc fDJaIY5vQYWjegOmh6EeFO 4sAWGyfLdrzn44QD5tpPco t8AcBVWlAMmfMB03leY6wT V9SMuaYJMfBCAdfGWitpVl cvQgsGWijJJfoQ2hesMvi7 4aEEBiHVW1eOJgbWYaOtBp F09capCouCLsPA36rSUqoB fyp7RxjUg6lONxZIzuzL7h QjEuIFxwYXJccGFyIFNwZW NpbWVuIEMgaXMgcmVjZWl2 ABBgqS3xBjy1RNWmnvQwZE 5kUQrxUrIdQEEaa5d5xUM5 xDXejBP8iWLlzBbtXM2afD KfNJ6mXSkoTObjdsTwa3Jw CM51rJDejkJupkNeHUNtrG duYXRlZCBhcyAiYmxhZGRl ujQskX3qf6lku9JxlLLuHJ 9uUUWscdOwj5VaKY4bBWOv iFxtkw89ZL3wbPcuj0YaSY KjFRksFD88ZXQcHPIbiHTu DV74FBSqOTtlMVzdPXS7IR Y1SFUalSRhi8evcb4aEXkj LBNjy0X2MVIukqKtkMZogS BpcyBlbnRpcmVseSBzdWJt lGW0ADChpW34klSLCG8bVN NBNw4twSFjyJEigW== MICROSCOPIC DESCRIPTION i3jscUGeTXZyiJR4PoFwGG (test code = 3371) Jaw4yvb1AoyZKhmLZrIMgj hHHnowUgsg22pHI0bW12SP 0aFSJoIzB8SWUapuS1Sej5 VPDoLUIasPUsC488d6imd3 bnrkPfxLH4vOeeCYYbQMQb PJuuWDCwViNlJI5ASzYWOI Rmu3BaGIBiRKNqde0= Gross assessment was [facility] performed at ([facility], Department = 2777) of Pathology, [address] [place] [address], Technical component was [facility] performed at ([facility], = 2778) Department of Pathology, [address] [place] [address], [address] [facility] was performed at ([facility], Department code = 2779) of Pathology, [address] [place] [address], [facility] DiegoTISSUE [id number] 10:04:00Surgical Pathology Report Case: [id number] Authorizing Provider: Sebas Huang, Collected: 10/25/2020 06:39 PM [facility]urg Received: 10/26/2020 07:45 AM Pathologist: [...] IS PRESENTMG/pl Signing Pathologist Direct Phone Line: [phone] signed by Ariana Victor MD on 10/27/2020 at 10:04 UT00709 [id number] unspecified type, ureteral tumorA. Bladder clots and [...] entirely submitted into A1 to A2 and in store representative sections of the blood clot are [...] entirely submitted into C1. MG/pl A-C: Performed [facility] [place], Department of Pathology, [address] [place] [address], [facility], Department of Pathology, [address] [place] [address], [facility] of [facility], [address] [place] [address], [facility] Metabolic [id number] 05:29:00 Test Item Value Reference Range Interpretation Comments Sodium (test code = 139 meq/L 779-689 9800-2) Potassium (test code = 5.1 meq/L 3.6-5.5 2823-3) Chloride (test code = 102 meq/L 98-106 5-0) CO2 (test code = 26 meq/L -29 2027-9) BUN (test code = 32 mg/dL 10-26 H 3094-0) Creatinine (test code 9.44 mg/dL 0.5-1.2 H = 2160-0) Glucose (test code = 107 mg/dL 70-110 2345-7) Calcium (test code = 8.8 mg/dL 8.5-10.5 11480-0) EGFR (test code = 5 mL/min/1.[place] [address]-5) NOT ACCURATE CREATININE CLEARANCE IN PREDICTING GLOMERULAR FILTRATION RATE . ESTIMATED GFR I S NOT APPLICABLE FOR DIALYSIS PATIENTS. ТАТЬЯНА (test code = ТАТЬЯНА) Network Control Operator ID - [id number] ID - [id number] ID - [id number] ID - [id number] ID - [id number] ID - [id number] ID - acbr91Fpljgrid ID - uahz48Hdhpemkj ID - urfr97Uczemnmf ID - zzvy49Vdedfieu ID - [id number] ID - [id number] ID - [id number] Lab Interpretation Abnormal (test code = 96572-8) [facility] METABOLIC [id number] 05:29:00 Test Item Value Reference Range Interpretation [...] S 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 Network Control Operator ID - [id number] ID - [id number] ID - [id number] ID - [id number] ID - [id number] ID - [id number] ID - [id number] ID - pcei81Aytcjssy ID - gmfx38Gkccjaom ID - [id number] ID - wcnf95Jhgxjiwo ID - vsjv15Zjncsupy ID - [id number] with platelet count + automated [id number] 05:09:00 Test Item Value Reference Range Interpretation Comments WBC (test code = 6690-2) 7.6 See_Comment [A utomated message] The system [employer] generated this result transmitted ref erence range: 4.0 - 10 .0 K/L. The refe rence range was not u sed to interpret this result as normal/abnor mal. RBC (test code = 789-8) 2.28 See_Comment L [Au tomated message] The system [employer] generated this result transmitted ref erence range: 4.20 - 5 .80 M/L. The refe rence range was not u sed to interpret this result as normal/abnor mal. MCHC (test code = 786-4) 31.3 See_Comment L [A utomated message] The system [employer] generated this result transmitted ref erence range: [...] See_Comment [Aut omated message] 777-3) The system [employer] generated this result transmitted ref erence range: 150 - 43 0 K/CU MM. The referen ce range was not u sed to interpret this result as normal/abnor mal. MPV (test code = 9.6 fL 6-11.5 12916-6) nRBC (test code = 413) 0 See_Comment [Aut omated message] The system [employer] generated this result transmitted ref erence range: [...] See_Comment [Aut omated message] 670) The system [employer] generated this result transmitted ref erence range: 1.80 - 8 .00 K/L. The refe rence range was not u sed to interpret this result as normal/abnor mal. # Lymphs (test code = 1.26 See_Comment L [Auto mated message] 414) The system [employer] generated this result transmitted ref erence range: 1.48 - 4 .50 K/L. The refe rence range was not u sed to interpret this result as normal/abnor mal. # Monos (test code = 0.84 See_Comment [Autom ated message] 415) The system [employer] generated this result transmitted ref erence range: 0.00 - 1 .30 K/L. The refe rence range was not u sed to interpret this result as normal/abnor mal. # Eos (test code = 416) 0.25 See_Comment [Au tomated message] The system [employer] generated this result transmitted ref erence range: 0.00 - 0 .50 K/L. The refe rence range was not u sed to interpret this result as normal/abnor mal. # Baso (test code = 417) 0.03 See_Comment [A utomated message] The system [employer] generated this result transmitted ref erence range: 0.00 - 0 .20 K/L. The refe rence range was not u sed to interpret this result as normal/abnor mal. Immature 1 % 0-0 H Granulocytes-Relative (test code = 2801) Lab Interpretation (test Abnormal code = 20116-2) [facility] W/PLT COUNT & AUTO [id number] 05:09:00 Test Item Value Reference Range Interpretation [...] (BEAKER) (test code = 2801) BASIC METABOLIC [id number] 05:21:00 Test Item Value Reference Range Interpretation [...] S 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 Network Control Operator ID - LITOOperator ID - LITOOperator ID - LITOOperator ID - LITOOperator ID - LITOOperator ID - LITOOperator ID - LITOOperator ID - LITOOperator ID - LITOOperator ID - LITOOperator ID - LITOOperator ID - LITOOperator ID - LITOCBC W/PLT COUNT & AUTO [id number] 04:38:00 Test Item Value Reference Range Interpretation [...] (test code = 2801) Hepatitis B surface [id number] 17:58:00 Test Item Value Reference Range Interpretation Comments Hep B S Ab (test code <8.0 See_Comment [Auto mated = 63772-0) message] The system which generated this result transmit radha reference range : <8.0 mIU/mL. Th e reference range was not used to interpret this result as normal/abnormal . ТАТЬЯНА (test code = ТАТЬЯНА) Network Control Operator ID - DB Lab Interpretation Normal (test code = 85830-2) [facility] [id number] 17:58:00 Test Item Value Reference Range Interpretation Comments HEPATITIS B SURFACE ANTIBODY < mIU/mL <8.0 (BEAKER) (test code = 647) Network Control Operator ID - AKNwmjryzpv2906-94-47 13:35:00 Test Item Value Reference Range Interpretation Comments Potassium (test code = 4.2 meq/L 3.6-5.5 2823-3) ТАТЬЯНА (test code = ТАТЬЯНА) Network Control Operator ID - [id number] ID - [id number] ID - [id number] ID - [id number] Lab Interpretation (test Normal code = 41043-2) [facility] 13:35:00 Test Item Value Reference Range Interpretation Comments POTASSIUM (BEAKER) (test code = 4.2 meq/L 3.6-5.5 379) Network Control Operator ID - [id number] ID - [id number] ID - [id number] ID - [id number] BASIC METABOLIC [id number] 06:45:00 Test Item Value Reference Range Interpretation [...] S 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 Network Control Operator ID - MITCHOperator ID - MITCHOperator ID - MITCHOperator ID - MITCHOperator ID - MITCHOperator ID - MITCHOperator ID - MITCHOperator ID - MITCHOperator ID - MITCHOperator ID - [id number] 06:44:00 Test Item Value Reference Range Interpretation Comments Phosphorus (test code = 5.9 mg/dL 2.5-4.5 H 2777-1) ТАТЬЯНА (test code = ТАТЬЯНА) Network Control Operator ID - MITCHOperator ID - MITCHOperator ID - MITCHOperator ID - STEVE Lab Interpretation Abnormal (test code = 32909-5) [facility] 06:44:00 Test Item Value Reference Range Interpretation Comments PHOSPHORUS (BEAKER) (test code = 5.9 mg/dL 2.5-4.5 H 604) Network Control Operator ID - MITCHOperator ID - MITCHOperator ID - MITCHOperator ID - MITCHCBC (Hemogram only)2020-10-25 06:33:00 Test Item Value Reference Range Interpretation Comments WBC (test code = 6690-2) 10.6 See_Comment H [A utomated message] The system [employer] generated this result transmitted ref erence range: 4.0 - 10 .0 K/L. The refe rence range was not u sed to interpret this result as normal/abnor mal. RBC (test code = 789-8) 2.39 See_Comment L [Au tomated message] The system [employer] generated this result transmitted ref erence range: 4.20 - 5 .80 M/L. The refe rence range was not u sed to interpret this result as normal/abnor mal. MCHC (test code = 786-4) 31.0 See_Comment L [A utomated message] The system [employer] generated this result transmitted ref erence range: [...] code = 285 See_Comment [Aut omated message] 907-3) The system [employer] generated this result transmitted ref erence range: 150 - 43 0 K/CU MM. The referen ce range was not u sed to interpret this result as normal/abnor mal. MPV (test code = 9.8 fL 6-11.5 21932-5) nRBC (test code = 413) 0 See_Comment [Aut omated message] The system [facility] generated this result transmitted ref erence range: 0 - 0 /1 00 WBC. The refere nce range was not u sed to interpret this result as normal/abnor mal. Lab Interpretation (test Abnormal code = 26024-8) [facility] (HEMOGRAM ONLY)2020-10-25 06:33:00 Test Item Value Reference [...] (test code = 413) Type and screen, [id number] 14:42:00 Test Item Value Reference Range Interpretation Comments ABO/RH AUTOMATED (BEAKER) (test O POSITIVE code = 2260) Ab Scrn (test code = 890-4) NEGATIVE [facility] [id number] 08:07:00 Test Item Value Reference Interpretation Comments [...] 13) >100,000 col/mL skin floraHepatitis B surface jaaslxj2225-09-38 15:09:00 Test Item Value Reference Range Interpretation Comments HBsAg Screen (test code Nonreactive Nonreactive = 5195-3) ТАТЬЯНА (test code = ТАТЬЯНА) Network Control Operator ID - [id number] Lab Interpretation (test Normal code = 49065-4) [facility] SURFACE [id number] 15:09:00 Test Item Value Reference Range Interpretation Comments HEPATITIS B SURFACE ANTIGEN (2) Nonreactive Nonreactive (BEAKER) (test code = 2585) Network Control Operator ID - [id number] METABOLIC [id number] 05:03:00 Test Item Value Reference Range Interpretation [...] S 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 Network Control Operator ID - [id number] ID - [id number] ID - [id number] ID - [id number] ID - [id number] ID - [id number] ID - [id number] ID - [id number] ID - [id number] ID - [id number] ID - [id number] ID - [id number] ID - [id number] W/PLT COUNT & AUTO [id number] 04:56:00 Test Item Value Reference Range Interpretation [...] Xpert (test code = Negative, See Xpress 33868-1) external report SARS-CoV-2/F yuliet/RSV test for linked [...] Fact Sh eet for Healthcare Prov iders: [email or web address]://www.[employer].com/ Documents/Xpert %20Xpress %74JTNO-NnX-8-F yuliet-RSV/30 2-4508%20Rev.%2 0B%20HCP% 20Fact%20Sheet. pdf Fact Sheet for Healt hcare Patients: https://www.[employer].com/ Documents/Xpert %20Xpress %78GOWK-NrL-6-F yuliet-RSV/30 2-4507%20Rev.%2 0B%20Pati ent%20Fact%20Sh eet.pdf SARS-COV-2 SLSL Performed at:[facility] PERFORMING LAB [address]ora [address] (test code = Shelton Nichols [address]47[address]-2) [place] [address] ph: [phone] [facility]F [facility]2020-10-23 00:12:00 Test Item Value Reference Range Interpretation Comments SARS-COV2/RT-PCR Negative Not Detected, Performanc e of the Xpert (test code = Negative, See Xpress 4508240) external report SARS-CoV-2/F yuliet/RSV test for linked [...] sooner.Fact She et for Healthcare Prov iders: https://www.Employee Benef[employer]/ Documents/Xpert %20Xpress %32XBYO-WwK-2-F 2-4508%20Rev.%2 0B%20HCP% 20Fact%20Sheet. pdfFact Sheet for Healt hcare Patients: https://www.Employee Benefit Plans/ Documents/Xpert %20Xpress %32SJOK-CsO-3-F 2-4507%20Rev.%2 0B%20Pati ent%20Fact%20Sh eet.pdf SARS-COV-2 SLSL Performed at:[facility] PERFORMING LAB [facility] (test code = Shelton Nichols 7662995) [place] [address] ph: [phone] CT, [id number] 22:34:00Unlisted Reason for Exam - Click Yes and Enter Reason Below->YesUnlisted Reason for Exam->known R ureteral tumor and r hydro, worsening R side pain, pt ESRD will dialyzeWill this procedure require oral contrast?->No [facility] : 1945 Sex: MFINAL [...] lesions too small to characterize. Signed: Rodger PaegMDReport Verified Date/Time: 10/22/2020 22:34:38 CT abdomen pelvis with IV [id number] 22:34:00Interface, External Ris In - 10/22/2020 10:37 [...] lesions too small to characterize. Signed: Rodger Page MDReport Verified Date/Time: 10/22/2020 22:34:38 [facility] W/PLT COUNT & AUTO [id number] 21:18:00 Test Item Value Reference Range Interpretation [...] = 2801) CBC W/PLT COUNT & AUTO [id number] 12:53:00 Test Item Value Reference Range Interpretation [...] 0-0 H PERCENT (BEAKER) (test code = 2806) BASIC METABOLIC [id number] 12:49:00 Test Item Value Reference Range Interpretation [...] S 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 Network Control Operator ID - [id number] ID - [id number] ID - [id number] ID - [id number] ID - [id number] ID - [id number] ID - [id number] ID - [id number] ID - [id number] ID - [id number] ID - [id number] ID - [id number] ID - [id number] 12:44:00 Test Item Value Reference Interpretation Comments [...] PTT (test code = 28.1 See_Comment Final 68996-4) Information (Auto Output) [Automated message] The system [...] valves. Lab Interpretation Normal (test code = 05926-3) [facility]/[id number] 12:44:00 Test Item Value Reference Range Interpretation Comments PROTIME (BEAKER) (test 11.0 seconds 9.3-12.0 Final Information code = 759) (Auto Output) INR (BEAKER) (test 0.99 See_Comment Final Inf ormation code = 370) (Auto Output) [Automated mess age] The system [employer] generated this result transmit radha reference range [...] 2.5-3.5 for patients with mechanical heart valves.CT, [id number] 08:58:00Unlisted Reason for Exam - Click Yes and Enter Reason Below->NoWill this procedure require oral contrast?->No [facility] 1945 Sex: MFINAL REPORT [...] diverticulosis. Tiny hiatal hernia. Signed: Irene Juarez Verified Date/Time: 09/22/2020 08:58:10 Reading Location: [address] Consult Reading Room CT abdomen/pelvis without & with IV [id number] 08:58:00 Interface, External Ris In - 09/22/2020 [...] Juarez MDReport Verified Date/Time: 09/22/2020 08:58:10 ReadingLocation: [facility] B1 C013X [facility] [id number] 15:11:00ESRD patientUnlisted Reason for Exam - Click Yes and Enter Reason Below->NoDeos the patient have an implanted electronic device?->No [facility] : 1945 Sex: MFINAL REPORT [...] to postcholecystectomy biliary reservoir effect. Signed: Abebe Huizarsaint francis hospital & [facility] Verified Date/Time: 09/02/2020 15:11:40 Reading Location: [facility] Diagnostic Imaging Reading Room - [place] [address] MR, PELVIS, WITHOUT [id number] 15:11:00ESRD patientUnlisted Reason for Exam - Click Yes and Enter Reason Below->NoDeos the patient have an implanted electronic device?->No [facility] : 1945 Sex: MFINAL [...] Huizar Verified Date/Time: 09/02/2020 15:11:40 Reading Location: [facility] Diagnostic Imaging Reading Room - [place] [address] MR pelvis without IV ystooahc0385-01-92 15:11:00Interface, External Ris In - 09/02/2020 3:13 [...] Huizareport Verified Date/Time: 09/02/2020 15:11:40 Reading Location: [facility] Diagnostic Imaging Reading Room - [facility] F1 [facility] without IV fgddwvus8323-50-35 15:11:00Interface, External Ris In - 09/02/2020 3:13 [...] Huizar Verified Date/Time: 09/02/2020 15:11:40 Reading Location: [facility] Diagnostic Imaging Reading Room - [place] [address] [facility] [id number] 10:13:00Surgical Pathology Report Case: [id number] Authorizing Provider: Sebas Huang, Collected: 08/31/2020 12:53 PM OrderingLocation: [facility] 05B Med/Surg Received: 08/31/2020 01:41 PM Pathologist: Ariana Victor MD Specimen: Bladder Tumor BLADDER TUMOR, TRANSURETHRAL RESECTION OF BLADDER: - 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 The specimen is entirely submitted into A1-A6. MG/ew Performed [facility], Department of Pathology, [address] [place] [address], Zpodzg [facility], Department of Pathology, [address] [place] [address], [facility], Department of Pathology, [address] [place] [address], QO, FLUORO, NON-SPECIFIC, UP TO 1 [id number] 12:50:00 Reason for exam:->Surgery [facility] : 1945 Sex: MFluoroscopic unit utilized for a procedure performed in the OR. No interpretation was requested. Refer to the operative report for findings. Refer to PACS for patient radiation dose information.FL fluoro non-specific up to 1 [id number] 12:50:00 Interface, External Ris In - 08/31/2020 12:55 PM CSTFluoroscopic unit utilized for a procedure performed in the OR. No interpretation was requested. Refer to the operative report for findings. Referto PACS for patient radiation dose information.[facility]2D Echo W/Doppler(CW/PW/Color) 2020-08-31 08:09:56Ejection FractionSLEH ECHO HEARTLAB MKCKESSON CPACSInterface, External Ris In - 08/31/2020 8:10 AM CSTTransthoracic Echocardiography Report (TTE) Demographics Patient Name JANEL LONDON Date of Study 08/29/2020 Gender Male Visit Number [id number] Race Unknown Room Number B531 Number Date of 1945 Referring Physician Age 75 year(s) [employer] [place] Najera Interpreting Humberto Reed Jr. MD [...] Gradient: 3.29 mmHg Estimated PASP: 42.39 mmHgCHI Glendale [facility] HospitalComprehensive metabolic [id number] 06:56:00 Test Item Value Reference Range Interpretation Comments Protein, Total (test 6.7 See_Comment [Autom ated code = 2885-2) message] The system which generated this result transmitted reference range : 6.0 - 8.5 gm/dL . The reference range was not used to interpr et this result as normal/abnormal . Albumin (test code = 3.2 g/dL 3.5-5 L 88047-1) Alkaline Phosphatase 57 U/L 30-115 (test code = 6768-6) Total Bilirubin 0.4 mg/dL 0.1-1.2 (test code = 1975-2) Sodium (test code = 138 meq/L 768-548 6368-2) Potassium (test code 3.9 meq/L 3.6-5.5 = 2823-3) Chloride (test code 99 meq/L 98-106 = 2075-0) CO2 (test code = 26 meq/L 20-29 8-9) BUN (test code = 30 mg/dL 10-26 H 3094-0) Creatinine (test 7.85 mg/dL 0.5-1.2 H code = 2160-0) Glucose (test code = 94 mg/dL 70-110 2345-7) Calcium (test code = 8.7 mg/dL 8.5-10.5 46967-0) AST (test code = 49 U/L 5-40 H 1920-8) ALT (test code = 55 U/L 5-50 H 1742-6) EGFR (test code = 7 mL/min/1.73 [place] [address]-7) m NOT ACCURATE CREATININE CLEARANCE IN PREDICTING GLOMERULAR FILTRATION RATE . ESTIMATED GFR I S NOT APPLICABLE FOR DIALYSIS PATIENTS. ТАЬТЯНА (test code = Network Control Operator ID - ТАТЬЯНА) LITOOperator ID - LITOOperator ID - LITOOperator ID - LITOOperator ID - LITOOperator ID - LITOOperator ID - LITOOperator ID - LITOOperator ID - LITOOperator ID - LITOOperator ID - LITOOperator ID - LITOOperator ID - LITOOperator ID - LITOOperator ID - LITOOperator ID - JUNITO Lab Interpretation Abnormal (test code = 58732-2) [facility] DiegoCOMPREHENSIVE METABOLIC [id number] 06:56:00 Test Item Value Reference Range Interpretation [...] S 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 Network Control Operator ID - LITOOperator ID - LITOOperator ID - LITOOperator ID - LITOOperator ID - LITOOperator ID - LITOOperator ID - LITOOperator ID - LITOOperator ID - LITOOperator ID - LITOOperator ID - LITOOperator ID - LITOOperator ID - LITOOperator ID - LITOOperator ID - LITOOperator ID - ZRQKPqxfzzqyv9625-00-40 06:54:00 Test Item Value Reference Range Interpretation Comments Magnesium (test code = 2.1 mg/dL 1.5-3 94436-8) ТАТЬЯНА (test code = ТАТЬЯНА) Network Control Operator ID - LITOOperator ID - LITOOperator ID - LITOOperator ID - [id number] Lab Interpretation (test Normal code = 40295-8) [facility] DiegoMAGNESIUM2021-03-09 06:54:00 Test Item Value Reference Range Interpretation Comments MAGNESIUM (BEAKER) (test code = 2.1 mg/dL 1.5-3.0 627) Network Control Operator ID - LITOOperator ID - LITOOperator ID - LITOOperator ID - LITOCBC W/PLT COUNT & AUTO [id number] 06:31:00 Test Item Value Reference Range Interpretation [...] PERCENT (BEAKER) (test code = 2801) Lipid zqsxs3359-08-18 06:03:00 Test Item Value Reference Range Interpretation Comments Triglycerides (test 125 mg/dL code = 2571-8) Cholesterol (test code 92 mg/dL = 2093-3) HDL (test code = 27 mg/dL 2085-9) LDL Calculated (test 40 mg/dL code = 29359-6) ТАТЬЯНА (test code = ТАТЬЯНА) Triglyceride Reference Range: Low Risk <150 Borderline 150-199 High Risk 200-499 Very High Risk >=500 Cholesterol Reference Range: Low Risk <200 Borderline 200-239 High Risk >240 HDL Cholesterol Reference Range: Low Risk >=60 High Risk <40 LDL Cholesterol Reference Range: Optimal <100 Near Optimal 100-129 Borderline 130-159 High 160-189 Very High >=190 Network Control Operator ID - [id number] ID - SUTH36Tvoukwpm ID - XROL23Ssfnmyzp ID - BMVS07Btiwzmlz ID - HGAA02Avksrkky ID - [id number] [facility] DiegoLIPID [id number] 06:03:00 Test Item Value Reference Range Interpretation [...] Borderline 130-159 High 160-189 Very High >=190 Network Control Operator ID - [id number] ID - YOAD01Oivigxek ID - [id number] ID - QUDI47Wpljgwhe ID - HTSI20Ejldjfje ID - [id number] W/PLT COUNT & AUTO SKDYVNLBBUYC7546-26-73 05:38:00 Test Item Value Reference Range Interpretation [...] H PERCENT (BEAKER) (test code = 2801) [id number] 19:47:00 Test Item Value Reference Range Interpretation Comments PSA (test code = 2857-1) 4.9 ng/mL 0-4 H ТАТЬЯНА (test code = ТАТЬЯНА) Network Control Operator ID - [id number] Lab Interpretation (test Abnormal code = 81428-2) [facility] DiegoPSA2021-03-07 19:47:00 Test Item Value Reference Range Interpretation Comments PROSTATE SPECIFIC ANTIGEN (BEAKER) 4.9 ng/mL 0.0-4.0 H (test code = 844) Network Control Operator ID - [id number] 18:56:00 Test Item Value Reference Range Interpretation Comments Ferritin (test code = 4479.50 ng/mL 22-322 H 2276-4) ТАТЬЯНА (test code = ТАТЬЯНА) Network Control Operator ID - [id number] ID - [id number] Lab Interpretation (test Abnormal code = 79031-2) [facility] DiegoFERRITIN2021-03-07 18:56:00 Test Item Value Reference Range Interpretation Comments FERRITIN (BEAKER) (test code = 4479.50 ng/mL 22.00-322.00 H 361) Network Control Operator ID - [id number] ID - [id number] [id number] 18:33:00 Test Item Value Reference Range Interpretation Comments Vitamin B12 (test code = 919 pg/mL 211-911 H 2132-9) ТАТЬЯНА (test code = ТАТЬЯНА) Network Control Operator ID - [id number] Lab Interpretation (test Abnormal code = 60794-5) [facility] DiegoVITAMIN [id number] 18:33:00 Test Item Value Reference Range Interpretation Comments VITAMIN B12 (BEAKER) (test code = 919 pg/mL 211-911 H 774) Network Control Operator ID - [id number], rifw2984-39-34 18:25:00 Test Item Value Reference Range Interpretation Comments Free T4 (test code = 0.90 ng/dL 0.9-1.8 3024-7) ТАТЬЯНА (test code = ТАТЬЯНА) Network Control Operator ID - [id number] Lab Interpretation (test Normal code = 86520-9) [facility] DiegoT4, [id number] 18:25:00 Test Item Value Reference Range Interpretation Comments FREE T4 (BEAKER) (test code = 655) 0.90 ng/dL 0.90-1.80 Network Control Operator ID - [id number] 18:22:00 Test Item Value Reference Range Interpretation Comments TSH (test code = 5.480 See_Comment [Automated 67234-9) message] The system which generated this result transmit radha reference range : 0.350 - 5.500 uIU/mL. The reference range was not used to interpret this result as normal/abnormal . ТАТЬЯНА (test code = ТАТЬЯНА) Network Control Operator ID - [id number] Lab Interpretation Normal (test code = 01486-4) [facility] DiegoTSH2021-03-07 18:22:00 Test Item Value Reference Range Interpretation Comments THYROID STIMULATING HORMONE 5.480 uIU/mL 0.350-5.500 (BEAKER) (test code = 772) Network Control Operator ID - [id number]/S, RENAL, HYISRNSW8357-99-11 12:08:00Please include bladderReason for exam:->hematuria, history of polycystic kidney diseaseShould this be performed at the bedside?->Yes [facility] : 1945 Sex: MFINAL [...] CT for further evaluation. Signed: Oliver Machado Verified Date/Time: 08/29/2020 12:08:20 Reading Location: [facility] B1 C013W ConsultReading Room US renal irqhwkik0281-40-47 12:08:00Interface, External Ris In - 08/29/2020 12:19 [...] Riggins Verified Date/Time: 08/29/2020 12:08:20 Reading Location: [facility] B1 C013W Consult Reading Room [facility]ecaHEPATITIS [facility] SURFACE ANTIBODY 2020-08-29 11:42:00 Test Item Value Reference Range Interpretation Comments HEPATITIS B SURFACE ANTIBODY < mIU/mL <8.0 (BEAKER) (test code = 647) Network Control Operator ID - FER MReticulocyte bwpml4808-57-58 11:03:00 Test Item Value Reference Range Interpretation Comments % Retic (test code = 96561-1) 1.8 % 0.4-2.9 Lab Interpretation (test code = Normal 12144-6) [facility] DiegoRETICULOCYTE [id number] 11:03:00 Test Item Value Reference Range Interpretation Comments RETICULOCYTE COUNT PCT (BEAKER) (test 1.8 % 0.4-2.9 code = 575) Troponin [id number] 05:52:00 Test Item Value Reference Range Interpretation Comments Troponin I (test code = 0.22 ng/mL 0-0.15 HH 67785-4) ТАТЬЯНА (test code = ТАТЬЯНА) Troponin I [...] [id number] Lab Interpretation (test Abnormal code = 79918-1) [facility] DiegoTROPONIN [id number] 05:52:00 Test Item Value Reference Range Interpretation [...] failure, acidosis, acute neurological disease, and persistent tachyarrhythmia.Network Control Operator ID - [id number] METABOLIC ZIULZ1641-69-12 05:32:00 Test Item Value Reference Range Interpretation [...] S 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 Network Control Operator ID - [id number] ID - XVGT18Mumeerhb ID - [id number] ID - LITR75Zvfumaav ID - SMFZ12Jwyhnyve ID - HNET74Uscjbaif ID - OEWX26Lhinhjmc ID - VBQD26Trjgvqmg ID - PQIZ24Rvcizlky ID - GBGW45Nlcbeugp ID - WEGU12Fjkkrkbv ID - NSBF54Ggeyjrdh ID - [id number], BRAIN, WITHOUT WBKSFFIB4010-23-84 05:08:00Unlisted Reason for Exam - Click Yes and Enter Reason Below->YesUnlisted Reason for Exam->amsCHI [facility]ENTER[facility]: [facility] : 1945 [...] Yessenia Perez MDReport Verified Date/Time: 08/29/2020 05:08:18 [facility] brain without IV rbiulezq7865-82-25 05:08:00Interface, External Ris In - 08/29/2020 5:11 [...] Yessenia Perez MDReport Verified Date/Time: 08/29/2020 05:08:18 [facility] W/PLT COUNT & AUTO [id number] 04:50:00 Test Item Value Reference Range Interpretation [...] (BEAKER) (test code = 2801) Occult blood, lckts1488-09-38 03:55:00 Test Item Value Reference Range Interpretation Comments Occult blood (test code = 2335-8) Negative Negative Lab Interpretation (test code = Normal 50986-9) [facility] DiegoOCCULT BLOOD, [id number] 03:55:00 Test Item Value Reference Range Interpretation Comments FECAL OCCULT BLOOD (BEAKER) (test Negative Negative code = 618) HEPATITIS B SURFACE [id number] 17:43:00 Test Item Value Reference Range Interpretation Comments HEPATITIS B SURFACE ANTIGEN (2) Nonreactive Nonreactive (BEAKER) (test code = 2585) Network Control Operator ID - CINTHIA [id number] 16:41:00 Test Item Value Reference Range Interpretation [...] failure, acidosis, acute neurological disease, and persistent tachyarrhythmia.Network Control Operator ID - HARMAN Q2976-16-13 09:49:00 Test Item Value Reference Range Interpretation [...] failure, acidosis, acute neurological disease, and persistent tachyarrhythmia.Network Control Operator ID - RAHMABASIC METABOLIC PANEL 2020-08-28 07:01:00 [...] S 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 Network Control Operator ID - [id number] ID - WECE67Hmbeyqno ID - HEOX43Jkboirpj ID - QNCY82Boteoyum ID - PCFG32Emsdoyaa ID - QHZU55Iafgcusy ID - CCCC04Rsoymzmr ID - CWWW34Kpcjdjhp ID - QMMN31Hoqbrrln ID - CUDK43Kijkgzon ID - CBLG18Htrdisdj ID - LPAV97Jpntwrqb ID - ISFO32GCE W/PLT COUNT & AUTO [id number] 06:29:00 Test Item Value Reference Range Interpretation [...] PERCENT (BEAKER) (test code = 2801) Prothrombin time/UIU9432-13-04 02:15:00 Test Item Value Reference Interpretation Comments [...] valves. Lab Interpretation Abnormal (test code = 97621-3) [facility] DiegoPROTHROMBIN TIME/VGZ0933-16-13 02:15:00 Test Item Value Reference Range Interpretation [...] for patients with mechanical heart valves.COMPREHENSIVE METABOLIC [id number] 02:11:00 Test Item Value Reference Range Interpretation [...] S 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 Network Control Operator ID - [id number] ID - WLDT35Kqjksqfl ID - TRIY43Svhtejqd ID - RPWD59Ppgkgbot ID - RRXD50Plhhaihp ID - BCUN89Pjosicwd ID - YFTH55Krogvzen ID - DMRE03Agmwfhfy ID - WNYY44Runalscp ID - YOWO80FJYPL DRSFO3650-89-03 02:10:00 Test Item Value Reference Range Interpretation [...] Borderline 130-159 High 160-189 Very High >=190 Network Control Operator ID - [id number] ID - RBBC07Yheqdsja ID - [id number] Urinalysis w/Microscopic + Reflex to Zrrvwbg6323-87-95 02:09:00 Test Item Value Reference Range Interpretation Comments Color, UA (test code = Red 5778-6) Clarity, UA (test code Turbid = 5767-9) Specific Goldsmith, UA 1.020 1.001-1.035 (test code = 5811-5) pH, UA (test code = 8.5 5.0-8.0 H 5803-2) Protein, UA (test code >=300 mg/dL Negative A = 21002-0) Glucose, UA (test code 100 mg/dL Negative A = 365) Ketones, UA (test code 15 mg/dL Negative A = 2514-8) Bilirubin, UA (test Positive Negative A code = 32069-1) Blood, UA (test code = Large Negative A 28664-1) Nitrite, UA (test code Positive Negative A = 5802-4) Leukocytes, UA (test Large Negative A code = 5799-2) Urobilinogen, UA (test >=8.0 0.2-1 H code = 10977-0) Bacteria, UA (test code Moderate = 39785-0) RBC, UA (test code = >100 See_Comment [Autom ated 799-7) message] The sy stem which generated this result transmitted reference range : /HPF. The refer ence range was not u sed to interpret th is result as normal/abnormal . WBC, UA (test code = 10-20 See_Comment [Autom ated 96097-9) message] The sy stem which generated this result transmitted reference range : /HPF. The refer ence range was not u sed to interpret th is result as normal/abnormal . SQUAMOUS EPITHELIAL 5-10 See_Comment [Automa radha (test code = 77436-2) messag e] The system which generated this result transmitted reference range : /HPF. The refer ence range was not u sed to interpret th is result as normal/abnormal . Specimen Source (test code = 2795) Lab Interpretation Abnormal (test code = 58597-6) [facility] DiegoURINALYSIS W/ REFLEX URINE [id number] 02:09:00 Test Item Value Reference Range Interpretation [...] SOURCE(BEAKER) (test code = 2795) Hepatic function bdmve8517-13-27 02:07:00 Test Item Value Reference Range Interpretation Comments Protein, Total (test 6.5 See_Comment [Autom ated code = 2885-2) message] The system which generated this result transmit radha reference range : 6.0 - 8.5 gm/dL . The reference range was not u sed to interpret th is result as normal/abnormal . Albumin (test code = 3.1 g/dL 3.5-5 L 21339-2) Total Bilirubin (test 0.5 mg/dL 0.1-1.2 code = 1975-2) Bilirubin, Direct 0.3 mg/dL 0-0.4 (test code = 1968-7) Alkaline Phosphatase 56 U/L 30-115 (test code = 6768-6) AST (test code = 35 U/L 5-40 1920-8) ALT (test code = 30 U/L 5-50 1742-6) ТАТЬЯНА (test code = ТАТЬЯНА) Network Control Operator ID - [id number] ID - VMIG40Gvtjinfq ID - IIXV81Lxdvhbib ID - SJGN25Jxmkexmi ID - ATWM42Kfllhofd ID - CZGS26Fqatxnki ID - [id number] Lab Interpretation Abnormal (test code = 12336-5) [facility] DiegoHEPATIC FUNCTION [id number] 02:07:00 Test Item Value Reference Range Interpretation [...] (test code = 30 U/L 5-50 347) Network Control Operator ID - XKOC19Zkycyfhx ID - BBBJ19Bhlkbdzl ID - BVGP43Dzlocqax ID - DSKX79Asfagumn ID - BFQY17Tzrklxdd ID - JUZF37Rblqybdc ID - FLIO66Tbobsuqimt A1c 2020-08-28 01:48:00 Test Item Value Reference Range Interpretation Comments Hemoglobin A1C (test code 4.8 % 4.3-6.1 = 4548-4) ТАТЬЯНА (test code = ТАТЬЯНА) Network Control Operator ID - [id number] Lab Interpretation (test Normal code = 73702-2) [facility] DiegoHEMOGLOBIN [id number] 01:48:00 Test Item Value Reference Range Interpretation Comments HEMOGLOBIN A1C (BEAKER) (test code = 4.8 % 4.3-6.1 368) Network Control Operator ID - [id number] 01:42:00 Test Item Value Reference Range Interpretation Comments MAGNESIUM (BEAKER) (test code = 2.2 mg/dL 1.5-3.0 627) Network Control Operator ID - [id number] ID - JLKM96Lgngfxks ID - GPYU10Klmirxfl ID - [id number] CGZLUDMBEH2059-01-37 01:39:00 Test Item Value Reference Range Interpretation Comments PHOSPHORUS (BEAKER) (test code = 5.0 mg/dL 2.5-4.5 H 604) Network Control Operator ID - [id number] W/PLT COUNT & AUTO WWCDEFXRANQG7430-99-31 01:37:00 Test Item Value Reference Range Interpretation [...] H PERCENT (BEAKER) (test code = 2801) UOZ-HVQAUZV1405-13-05 00:00:00Ordered by an unspecified provider.[facility] DiegoAirway2021-02-04 14:11:47WeRafael shea CRNA 07/29/2020 8:12 AMAirway Date/Time: 07/29/2020 7:40 [...] Number of Attempts at Approach: 1[facility]Pot[facility], jlecywe8110-91-20 13:20:20 Test Item Value Reference Range Interpretation Comments Potassium, syringe See_Comment [Automat ed message] The (test code = 2007) system [facility] generated this result tra nsmitted reference range : 3.5 - 5.0 mEq/L. The refe rence range was not used to interpret this result as normal/abnormal . [facility] CenterCOVID-19 qualitative INF1767-67-91 04:42:40 Test Item Value Reference Range Interpretation Comments Interpretation (test code = 9012336) COVID-19 qualitative RT-PCR Not-Detected Not-Detected result (test code = 83637-8) COVID-19 qualitative RT-PCR See link below for (test code = 7070) PDF Lab Report [facility] Pre/Post [id number] 00:59:42 Test Item Value Reference Range Interpretation Comments Ventricular rate (test code = 253) Atrial rate (test code = 255) NV interval (test code = 266) QRSD interval [...] of 08-JUL-2014 11:47,-No significant change was found- [facility] YRHG7771-89-60 11:07:00Surgical Pathology Report Case: [id number] Authorizing Provider: Bin Acevedo, Collected: 02/12/2020 09:33 AM OrderingLocation: [facility] Received: 02/12/2020 10:58 AM PERIOPERATIVE SERVICES Pathologist: Carlos Betancourt MD Specimen: Carotid, Left, LEFT CAROTID PLAQUE ARTERY, LEFT CAROTID, ENDARTERECTOMY:CALCIFIC ATHEROSCLEROTIC PLAQUE Signing Pathologist Direct Phone Line: [phone] signed by Carlos Betancourt MD on 02/17/2020 at 11:07 IC10022; 68736Nfyn carotid stenosis Carotid, LeftA. Received fresh labeled with the patient's name, medical record number and "parotid, left" is a previously incised portion of yellow plaque measuring 1.6 cm in length and 0.8 cm in diameter. Specimen is serially sectioned to reveal calcifications measuring up to 0.2 cm in thickness. [employer] Process[employer] Manager sections are submitted in A1, following decalcification.SATISH Madrid PA (ASC)PerformedHEPATITIS B SURFACE [id number] 14:11:00 Test Item Value Reference Range Interpretation Comments HEPATITIS B SURFACE ANTIGEN (2) Nonreactive Nonreactive (BEAKER) (test code = 2585) Specimen is considered negative for HBsAg.POCT-GLUCOSE [id number] 13:03:00 Test Item Value Reference Range Interpretation Comments POC-GLUCOSE METER 83 mg/dL 70-110 : TESTED A T [facility] 6720 (BEAKER) (test code = [facility], 1538) [address]: Network Control Operator/Techni justus ID = [id number] for JOIE ROE VSUK-TPW3550-93-21 06:30:00 Test Item Value Reference Range Interpretation Comments ACTIVATED CLOTTING TIME 235 sec : 74 -137 seconds, (BEAKER) (test code = Baseli ne: TESTED AT 441) [facility] 67[address] [facility], 770 30: Network Control Operator/Techni justus ID = [id number] for DON FARLEY BASIC METABOLIC [id number] 06:01:00 Test Item Value Reference Range Interpretation [...] S 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 Network Control Operator ID - PIAYA LPOCT-GLUCOSE IZUPP0919-60-69 06:00:00 Test Item Value Reference Range Interpretation Comments POC-GLUCOSE METER 94 mg/dL 70-110 : TESTED A T [facility] 6720 (BEAKER) (test code = RADHA Chowdhury [place], 1538) [address]: Network Control Operator/Techni justus ID = [id number] for Aren Cheatham MTEARIRHM9309-99-82 05:49:00 Test Item Value Reference Range Interpretation Comments MAGNESIUM (BEAKER) (test code = 1.9 mg/dL 1.6-2.6 627) Network Control Operator ID - LIAM PFOFXTWFL7282-17-55 05:31:00 Test Item Value Reference Range Interpretation Comments CORTISOL, TOTAL (BEAKER) (test code 8.3 ug/dL 3.7-19.4 = 2755) Network Control Operator ID - [id number] (HEMOGRAM ONLY)2020-02-13 03:06:00 Test [...] (test code = 413) TSH/FREE T4 IF [id number] 02:45:00 Test Item Value Reference Range Interpretation Comments THYROID STIMULATING HORMONE 4.682 uIU/mL 0.350-4.940 (BEAKER) (test code = 772) Network Control Operator ID - PIAYA LPOCT-GLUCOSE UGMCE8250-37-82 00:32:00 Test Item Value Reference Range Interpretation Comments POC-GLUCOSE METER 82 mg/dL 70-110 : [facility] (BEAKER) (test code = RADHA [place], 1538) [address]: Network Control Operator/Techni justus ID = [id number] for Aren Cheatham BLOOD GAS, UGDYWARZ4197-23-08 18:26:00 Test Item Value Reference Range Interpretation [...] code = 1819) 21.0 % COMPREHENSIVE METABOLIC [id number] 18:16:00 Test Item Value Reference Range Interpretation [...] S 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 Network Control Operator ID - [id number] 18:14:00 Test Item Value Reference Range Interpretation Comments MAGNESIUM (BEAKER) (test code = 1.8 mg/dL 1.6-2.6 627) Network Control Operator ID - NTPCALCIUM, [id number] 18:02:00 Test Item Value Reference Range Interpretation Comments CALCIUM IONIZED (BEAKER) (test 1.14 mmol/L 1.12-1.27 code = 698) PH, BLOOD (BEAKER) (test code = 7.32 1810) [id number] 18:01:00 Test Item Value Reference Range Interpretation [...] (BEAKER) (test code = 413) BLOOD GAS, [id number] 10:37:00 Test Item Value Reference Range Interpretation [...] 1819) 60.0 % HGB/HCT (H&H) - STAT [id number] 10:37:00 Test Item Value Reference Range Interpretation Comments HEMOGLOBIN (BEAKER) (test code = 9.2 g/dL 13.0-16.8 L 410) HEMATOCRIT (BEAKER) (test code = 27.0 % 40.0-50.0 L 411) GLUCOSE-STAT [id number] 10:36:00 Test Item Value Reference Range Interpretation Comments GLUCOSE RANDOM (BEAKER) (test code 104 mg/dL 70-110 = 652) SODIUM NA-STAT [id number] 10:36:00 Test Item Value Reference Range Interpretation Comments SODIUM (BEAKER) (test code = 381) 137 meq/L 136-145 POTASSIUM-STAT [id number] 10:36:00 Test Item Value Reference Range Interpretation Comments POTASSIUM (BEAKER) (test code = 4.0 meq/L 3.6-5.5 379) SARS-COV2/RT-PCR ([facility])2020-02-12 08:04:00 Test Item Value Reference Range Interpretation Comments SARS-COV2/RT-PCR (test code Negative Not Detected, Negative, = 4218974) See external report for linked test SARS-COV-2 PERFORMING LAB [facility] (test code = 8214565) Negative results do not preclude SARS-CoV-2 infection [...] of the Act.Fact Sheet for Healthcare Pro viders:https://www.HEMINGWAY/Documents/Xpert%20Xpress%20SARS%20CoV-2/Fact%20Sh eets/302-3802%07AYBX-RUF-1%20HEALTHCARE%20PROVIDERS%20FACT%20SHEET.pdfFact Sheet for Healthcare Patients:https://www.Viss/Documents/Xpert%20Xpress%20SARS%20CoV-2/Fact%20Sheets/302-3801%20SARS-COV -2%20PATIENT%20FACT%20SHEET.pdfPerforming Laboratory:[place] [address] [place], [place] [address]PZVWK METABOLIC [id number] 07:28:00 Test Item Value Reference Range Interpretation [...] S 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 Network Control Operator ID - NTPCBC W/PLT COUNT & AUTO [id number] 07:21:00 Test Item Value Reference Range Interpretation [...] code = 2801) HGB/HCT (H&H) - STAT [id number] 06:45:00 Test Item Value Reference Range Interpretation Comments HEMOGLOBIN (BEAKER) (test code = 11.3 g/dL 13.0-16.8 L 410) HEMATOCRIT (BEAKER) (test code = 33.0 % 40.0-50.0 L 411) GLUCOSE-STAT [id number] 06:42:00 Test Item Value Reference Range Interpretation Comments GLUCOSE RANDOM (BEAKER) (test code 103 mg/dL 70-110 = 652) POTASSIUM-STAT [id number] 06:42:00 Test Item Value Reference Range Interpretation Comments POTASSIUM (BEAKER) (test code = 4.8 meq/L 3.6-5.5 379) POCT-GLUCOSE [id number] 05:51:00 Test Item Value Reference Range Interpretation Comments POC-GLUCOSE METER 108 mg/dL 70-110 : TESTED A T [facility] 6720 (BEAKER) (test code [facility], = 1538) [address]: Network Control Operator/Techni justus ID = [id number] for JORD AN, LACRYSTAL
[2021-06-01 16:55] LABS: Absolute Lymphocytes (CBC) 0.9 K/uL (0.7-4.9); Basophils % 0.3 % (0-1.3); Hematocrit 39.4 % (39.6-49.0); Lymphocytes % 9.2 % (15.3-44.8); MPV 9.2 fL (7.6-11.3); RBC Red Blood Cell Count 4.19 M/uL (4.33-5.43)
[2021-06-01 16:57] LABS: Protime INR 1.34
--- NOTE | 2021-06-01 17:14 | RAD REPORT ---
EXAM DESCRIPTION: CT - Thorax Wo Con - 06/01/2021 4:50 pm CLINICAL HISTORY: PAIN COMPARISON: Chest Abd Pelvis Wo Con dated 11/17/2020; Thorax Wo Con dated 09/27/2020; Abdomen Pelvis W Contrast dated 02/19/2021; Abdomen Pelvis Wo Contrast dated 02/19/2021 FINDINGS: Chest Wall: No suspicious thyroid nodules or pathologic lymphadenopathy. Lungs: Scattered calcified pulmonary nodules. Increasing irregular nodularity throughout the lungs bi laterally, worse in the left lower lobe. Pleura: No significant effusions or pneumothorax. Mediastinum/shayy: No pathologic lymphadenopathy. Small hiatal hernia. Pulmonary arteries/Aorta: Limited evaluation without contrast. 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 Atherosclerosis. Similar contour deformity along the le ft aspect of the aortic arch likely the sequela of a prior penetrating atherosclerotic ulcer. . Heart: No significant pericardial effusion. Normal heart size. Multi-vessel coronary artery disease. Upper abdomen: Polycystic kidneys again noted. Low-density liver lesions are noted which were present prior CT as well. Bones: No acute abnormality. Remote mild T3 compression fracture. All CT scans are performed using dose optimization technique as appropriate and may include automated exposure control or mA/KV adjustment according to patient size. IMPRESSION: Irregular nodularity bilaterally, though more heavily concentrated in left lower lobe, c oncerning for infection or inflammation. Other chronic incidental findings as noted above.
--- NOTE | 2021-06-01 17:18 | RAD REPORT ---
EXAM DESCRIPTION: RAD - Chest Pa And Lat (2 Views) - 06/01/2021 5:01 pm CLINICAL HISTORY: COUGH COMPARISON: Chest Single View dated 02/20/2021; Chest Single View dated 02/18/2021; Chest Pa And Lat ( 2 Views) dated 01/27/2021; Chest Single View dated 11/18/2020; Chest Single View dated 06/19/2019; Chest Abd Pelvis Wo Con dated 11/17/2020; Thorax Wo Con dated 06/01/2021 FINDINGS: Lines: None. Lungs: Patchy multifocal airspace disease with overall improvement compared with 02/20/2021. Airspace disease is more prominent at the left lung base. Pleural: No significant pleural effusions or pneumothorax. Cardiac: The heart size is within normal limits. Bones: No acute fractures. Other: IMPRESSION: Bilateral airspace disease which is better characterized on the subsequent chest CT.
[2021-06-01 17:37] LABS: Albumin 3.1 g/dL (3.4-5.0); Bilirubin Direct 0.2 mg/dL (0-0.2); Bilirubin Total 0.6 mg/dL (0.2-1.0); Magnesium 2.1 mg/dL (1.8-2.4); Protein, Total 7.6 g/dL (6.4-8.2); Troponin (Emerg Dept Use Only) 0.07 ng/mL (0.0-0.045)
[2021-06-01] MEDS ORDERED: CEFEPIME 1 GM/VIAL ONE (18:14)
[2021-06-01] MEDS ORDERED: NA CHLORIDE 0.9% 100 ML ONE (18:15)
--- NOTE | 2021-06-01 18:25 | ER ---
Nurse's Notes [facility] Name: Robbie Kelly Age: 75 yrs Sex: Male : 1945 Arrival Date: 06/01/2021 Time: 16:01 Bed 8 Private MD: Diagnosis: Pneumonia, unspecified organism Presentation: 06/01 16:04 Chief complaint: Patient states: Dialysis doctor at [facility] sent him here for a chest jh5 xray; cough. Coronavirus screen: Vaccine status: Patient reports receiving the 2nd dose of the covid vaccine. Client denies travel out of the [place] in the last 14 days. Ebola Screen: Patient negative for fever greater than or equal to 101.5 degrees Fahrenheit, and additional compatible Ebola Virus Disease symptoms Patient denies exposure to infectious person. Patient denies travel to an Ebola-affected area in the 21 days before illness onset. Initial Sepsis Screen: Does the patient meet any 2 criteria? Yes Does the patient have a suspected source of infection? No. Patient's initial sepsis screen is negative. Risk Assessment: Do you want to hurt yourself or someone else? Patient reports no desire to harm self or others. Onset of symptoms was June 01, 2021. 16:04 Method Of Arrival: Ambulatory [facility] 16:04 Acuity: DADA 2 5 Triage Assessment: 16:19 General: Appears uncomfortable, Behavior is calm, cooperative, appropriate for age. jh5 Pain: Complains of pain in back and chest. Cardiovascular: Reports chest pain. Historical: - Allergies: 16:36 No Known Allergies; tw2 - Home Meds: 16:19 albuterol sulfate 2.5 mg /3 mL (0.083 %) Inhl nebu 3 mL twice a day [Active]; jh5 atorvastatin 40 mg Oral tab 1 tab once daily [Active]; Auryxia 210 mg iron Oral tab 2 tabs 3 times per day [Active]; fluticasone propion-salmeterol 113 mcg-14 mcg/actuation inhalation aebs 1 puff 2 times per day [Active]; folic acid 0.8 mg Oral cap [Active]; furosemide 20 mg Oral tab 1 tab 2 times per day [Active]; hydroxyzine HCl 25 mg Oral tab 1 tab 4 times per day [Active]; levothyroxine 88 mcg tab 1 tab once daily [Active]; metoprolol tartrate 25 mg Oral tab 1 tab 2 times per day for on days that he does not have dialysis [Active]; oxybutynin chloride 5 mg Oral tab 1 tab 3 times per day [Active]; renal vitamin [Active]; Aileen-Shari 0.8 mg Oral tab daily [Active]; tamsulosin 0.4 mg Oral cp24 1 cap once daily [Active]; Tums Oral 3 tab three times a day [Active]; Ventolin HFA 90 mcg/actuation Nebulizer HFAA 1 puff every 4 hours [Active]; - PMHx: 16:19 Anemia; Bladder CA; COPD; Dialysis; M,W,F; Hypertension; Hypothyroidism; POLYCYSTIC jh5 KIDNEY DISEASE; RENAL FAILURE; - Immunization history:: Adult Immunizations up to date. - Social history:: Smoking status: unknown. Screenin:32 Abuse screen: Denies threats or abuse. Nutritional screening: No deficits noted. tw2 Tuberculosis screening: No symptoms or risk factors identified. Fall Risk None identified. Assessment: 16:36 Pain: Pain radiates to back Pain began suddenly. tw2 16:37 Reassessment: Patient appears in no apparent distress at this time. No changes from tw2 previously documented assessment. Patient and/or family updated on plan of care and expected duration. Pain level reassessed. Patient is alert, oriented x 3, equal unlabored respirations, skin warm/dry/pink. 17:44 Reassessment: Patient appears in no apparent distress at this time. No changes from tw2 previously documented assessment. Patient and/or family updated on plan of care and expected duration. Pain level reassessed. Patient is alert, oriented x 3, equal unlabored respirations, skin warm/dry/pink. 18:00 Reassessment: pt has proof of NEGATIVE covid test dated today. copy of NEGATIVE results tw2 is with pts chart. 18:32 Reassessment: No changes from previously documented assessment. Patient is alert, jh6 oriented x 3, equal unlabored respirations, skin warm/dry/pink. pt alert skin w/d and is at bedside. 19:34 General: Reports " The pain I got is in my back and in my side.". Neuro: Level of tw5 Consciousness is awake, alert, obeys commands, Oriented to person, place, time, situation. Respiratory: Airway is patent Trachea midline Respiratory effort is even, unlabored. Vital Signs: 16:04 Pulse 63; Resp 26; Temp 97.7; Pulse Ox 87% ; Weight 79.38 kg; Height 5 ft. 10 in. [facility] (177.80 cm); 16:37 BP 99 / 45; Pulse 96; Resp 17; Pulse Ox 98% on R/A; tw2 17:43 BP 101 / 57; Pulse 93; Resp 22; Pulse Ox 95% on R/A; tw2 18:31 BP 103 / 58; Pulse 93; Resp 18; Pulse Ox 98% ; Pain 2/10; jh6 19:34 BP 113 / 91; Pulse 105; Resp 25; Pulse Ox 91% 2 lpm ; Pain 5/10; tw5 20:18 BP 97 / 46; Pulse 96; Resp 23; Pulse Ox 91% ; tt3 21:24 BP 91 / 60; Pulse 94; Resp 26; Pulse Ox 93% ; tt3 21:47 BP 100 / 80; Pulse 95; Resp 25; Pulse Ox 89% ; tt3 22:23 BP 93 / 97; Pulse 95; Resp 23; Pulse Ox 93% ; tt3 22:56 BP 89 / 61; Pulse 95; Resp 24; Pulse Ox 88% ; tt3 23:14 BP 94 / 77; Pulse 96; Resp 19; Pulse Ox 95% ; tt3 16:04 Body Mass Index 25.11 (79.38 kg, 177.80 cm) [facility] ED Course: 16:01 Patient arrived in ED. ds1 16:08 Triage completed. [facility] 16:08 Wilfrido Edward MD is Attending Physician. sp3 16:22 Bed in low position. Call light in reach. exhaust machine operator on. Pulse ox on. NIBP on. tw2 16:29 Melody Jovel, LEXII is Primary Nurse. jh6 16:32 Arm band placed on. tw2 16:37 Patient maintains SpO2 saturation greater than 95% on room air. tw2 16:38 Inserted saline lock: 22 gauge in right antecubital area, using aseptic technique. jh6 16:49 CT Chest Wo Con In Process Unspecified. EDMS 17:00 Chest Pa And Lat (2 Views) XRAY In Process Unspecified. EDMS 18:25 Khris Page DO is Hospitalizing Provider. sp3 18:32 Noise minimized. Lights dimmed. Warm blanket given. Pillow given. jh6 18:32 No provider procedures requiring assistance completed. jh6 19:34 Placed in gown. tw5 19:44 Patient has correct armband on for positive identification. Head of bed lowered. tw5 23:19 Primary Nurse role handed off by Melody Jovel, RN tw5 23:19 Dulce Monroy is Primary Nurse. tw5 Administered Medications: 18:23 Drug: Cefepime 1 grams Route: IVPB; Rate: 200 ml/hr; Infused Over: 30 mins; Site: right [facility] antecubital; 18:34 Follow up: Response: No adverse reaction 6 23:24 Follow up: Response: No adverse reaction; IV Status: Completed infusion tw5 19:00 Drug: vancoMYCIN 1 grams Route: IVPB; Infused Over: 2 hrs; Site: right antecubital; [facility] 23:25 Follow up: Response: No adverse reaction; IV Status: Completed infusion tw5 23:10 Drug: NS 0.9% 250 ml Route: IV; Rate: bolus; Site: right antecubital; 23:25 Follow up: Response: No adverse reaction; IV Status: Completed infusion tw5 Outcome: 18:25 Decision to Hospitalize by Provider. sp3 23:57 Patient left the ED. bb Signatures: Dispatcher [employer] [facility] FullerRadn hannah ds1 Chrissy Lake RN RN bb Karyn Cardoso RN RN tw2 Garry Kay tt3 Wilfrido Edward MD MD sp3 Dulce Monroy 5 Beatris Prakash RN RN jh5 Melody Jovel, LEXII RN jh6
--- NOTE | 2021-06-01 18:25 | EDPHYS ---
Physician Documentation [facility] Name: Robbie Kelly Age: 75 yrs Sex: Male : 1945 Arrival Date: 06/01/2021 Time: 16:01 Bed 8 Private MD: ED Physician Wilfrido Edward HPI: 06/01 17:40 This 75 yrs old Male presents to ER via Ambulatory with complaints of Chest Pain, Back sp3 Pain. 17:40 75-year-old male with a history of COPD, hypertension, bladder cancer on hemodialysis sp3 now presents for continuing cough, congestion, chest pain despite getting antibiotics during hemodialysis. Patient sent here from there for further evaluation and possible admission. Patient does not know the name of the antibiotics he was getting. He denies fever but does state he has had a cough and pleuritic chest pain for several weeks. On ROS he denies headache, neck pain, abdominal pain, back pain, nausea, vomiting, diarrhea, neuro symptoms, syncope, rash, known sick contacts, any other symptoms at this time.. Historical: - Allergies: 16:36 No Known Allergies; tw2 - Home Meds: 16:19 albuterol sulfate 2.5 mg /3 mL (0.083 %) Inhl nebu 3 mL twice a day [Active]; jh5 atorvastatin 40 mg Oral tab 1 tab once daily [Active]; Auryxia 210 mg iron Oral tab 2 tabs 3 times per day [Active]; fluticasone propion-salmeterol 113 mcg-14 mcg/actuation inhalation aebs 1 puff 2 times per day [Active]; folic acid 0.8 mg Oral cap [Active]; furosemide 20 mg Oral tab 1 tab 2 times per day [Active]; hydroxyzine HCl 25 mg Oral tab 1 tab 4 times per day [Active]; levothyroxine 88 mcg tab 1 tab once daily [Active]; metoprolol tartrate 25 mg Oral tab 1 tab 2 times per day for on days that he does not have dialysis [Active]; oxybutynin chloride 5 mg Oral tab 1 tab 3 times per day [Active]; renal vitamin [Active]; Aileen-Shari 0.8 mg Oral tab daily [Active]; tamsulosin 0.4 mg Oral cp24 1 cap once daily [Active]; Tums Oral 3 tab three times a day [Active]; Ventolin HFA 90 mcg/actuation Nebulizer HFAA 1 puff every 4 hours [Active]; - PMHx: 16:19 Anemia; Bladder CA; COPD; Dialysis; M,W,F; Hypertension; Hypothyroidism; POLYCYSTIC jh5 KIDNEY DISEASE; RENAL FAILURE; - Immunization history:: Adult Immunizations up to date. - Social history:: Smoking status: unknown. ROS: 17:41 Constitutional: Negative for fever, chills, and weight loss, Eyes: Negative for injury, sp3 pain, redness, and discharge, ENT: Negative for injury, pain, and discharge, Cardiovascular: Negative for chest pain, palpitations, and edema, Abdomen/GI: Negative for abdominal pain, nausea, vomiting, diarrhea, and constipation, Back: Negative for injury and pain, MS/Extremity: Negative for injury and deformity, Skin: Negative for injury, rash, and discoloration, Neuro: Negative for headache, weakness, numbness, tingling, and seizure, Psych: Negative for depression, anxiety, suicide ideation, homicidal ideation, and hallucinations, Allergy/Immunology: Negative for hives, rash, and allergies. 17:41 All other systems are negative. Exam: 17:41 Constitutional: This is a well developed, well nourished patient who is awake, alert, sp3 and in no acute distress. Head/Face: Normocephalic, atraumatic. Eyes: Pupils equal round and reactive to light, extra-ocular motions intact. Lids and lashes normal. Conjunctiva and sclera are non-icteric and not injected. Cornea within normal limits. Periorbital areas with no swelling, redness, or edema. ENT: Nares patent. No nasal discharge, no septal abnormalities noted. External auditory canals are clear. Oropharynx with no redness, swelling, or masses, exudates, or evidence of obstruction, uvula midline. Mucous membranes moist. Chest/axilla: Normal chest wall appearance and motion. Nontender with no deformity. No lesions are appreciated. Cardiovascular: Regular rate and rhythm with a normal S1 and S2. No gallops, murmurs, or rubs. Normal PMI, no JVD. No pulse deficits. Abdomen/GI: Soft, non-tender, with normal bowel sounds. No distension or tympany. No guarding or rebound. No evidence of tenderness throughout. Back: No spinal tenderness. No costovertebral tenderness. Full range of motion. Skin: Warm, dry with normal turgor. Normal color with no rashes, no lesions, and no evidence of cellulitis. MS/ Extremity: Pulses equal, no cyanosis. Neurovascular intact. Full, normal range of motion. Neuro: Awake and alert, GCS 15, oriented to person, place, time, and situation. Cranial nerves II-XII grossly intact. Motor strength 5/5 in all extremities. Sensory grossly intact. Cerebellar exam normal. Normal gait. 17:41 Respiratory: Scattered wheeze and rhonchi on the left base and lateral chest. Patient is not tachypneic and there is no accessory muscle use.. Vital Signs: 16:04 Pulse 63; Resp 26; Temp 97.7; Pulse Ox 87% ; Weight 79.38 kg; Height 5 ft. 10 in. jh5 (177.80 cm); 16:37 BP 99 / 45; Pulse 96; Resp 17; Pulse Ox 98% on R/A; tw2 17:43 BP 101 / 57; Pulse 93; Resp 22; Pulse Ox 95% on R/A; tw2 18:31 BP 103 / 58; Pulse 93; Resp 18; Pulse Ox 98% ; Pain 2/10; jh6 19:34 BP 113 / 91; Pulse 105; Resp 25; Pulse Ox 91% 2 lpm ; Pain 5/10; tw5 20:18 BP 97 / 46; Pulse 96; Resp 23; Pulse Ox 91% ; tt3 21:24 BP 91 / 60; Pulse 94; Resp 26; Pulse Ox 93% ; tt3 21:47 BP 100 / 80; Pulse 95; Resp 25; Pulse Ox 89% ; tt3 22:23 BP 93 / 97; Pulse 95; Resp 23; Pulse Ox 93% ; tt3 22:56 BP 89 / 61; Pulse 95; Resp 24; Pulse Ox 88% ; tt3 23:14 BP 94 / 77; Pulse 96; Resp 19; Pulse Ox 95% ; tt3 16:04 Body Mass Index 25.11 (79.38 kg, 177.80 cm) [facility] MDM: 17:42 Data reviewed: vital signs, nurses notes. ED course: 75-year-old with COPD versus sp3 pneumonia on clinical presentation. CT demonstrates left-sided infiltrates consistent with pneumonia. Due to patient being on antibiotics during dialysis, is prudent to patient is admitted for further treatment. WBC count is normal and patient is clinically otherwise normal with no SIRS criteria. Will admit to hospitalist service for further treatment.. 18:25 Patient medically screened. 3 06/01 16:34 Order name: Basic Metabolic Panel; Complete Time: 18:02 sp3 06/01 16:34 Order name: CBC with Diff; Complete Time: 17:26 3 06/01 16:34 Order name: LFT's; Complete Time: 18:02 3 06/01 16:34 Order name: Magnesium; Complete Time: 18:02 sp3 06/01 16:34 Order name: NT PRO-BNP; Complete Time: 18:02 sp3 06/01 16:34 Order name: PT-INR; Complete Time: 17:26 sp3 06/01 16:23 Order name: Chest Pa And Lat (2 Views) XRAY; Complete Time: 17:26 3 06/01 16:34 Order name: Troponin (emerg Dept Use Only); Complete Time: 18:02 3 06/01 16:34 Order name: EKG; Complete Time: 16:35 sp3 06/01 16:34 Order name: CT Chest Wo Con; Complete Time: 17:26 sp3 06/01 16:34 Order name: Cardiac monitoring; Complete Time: 16:38 sp3 06/01 16:34 Order name: EKG - Nurse/Tech; Complete Time: 17:47 sp3 06/01 16:34 Order name: IV Saline Lock; Complete Time: 16:37 sp3 06/01 16:34 Order name: Labs collected and sent; Complete Time: 16:38 3 06/01 16:34 Order name: O2 Per Protocol; Complete Time: 16:37 sp3 06/01 16:34 Order name: O2 Sat Monitoring; Complete Time: 16:37 sp3 Administered Medications: 18:23 Drug: Cefepime 1 grams Route: IVPB; Rate: 200 ml/hr; Infused Over: 30 mins; Site: right 6 antecubital; 18:34 Follow up: Response: No adverse reaction 6 23:24 Follow up: Response: No adverse reaction; IV Status: Completed infusion tw5 19:00 Drug: vancoMYCIN 1 grams Route: IVPB; Infused Over: 2 hrs; Site: right antecubital; jh6 23:25 Follow up: Response: No adverse reaction; IV Status: Completed infusion tw5 23:10 Drug: NS 0.9% 250 ml Route: IV; Rate: bolus; Site: right antecubital; 23:25 Follow up: Response: No adverse reaction; IV Status: Completed infusion tw5 Disposition Summary: 06/01/21 18:25 Hospitalization Ordered Hospitalization Status: Observation sp3 Provider: Khris Page sp3 Location: Telemetry/MedSur (observation) sp3 Condition: Stable sp3 Problem: new sp3 Symptoms: are unchanged sp3 Bed/Room Type: Standard sp3 Room Assignment: 408(06/01/21 22:46) eb1 Diagnosis - Pneumonia, unspecified organism sp3 Forms: - Medication Reconciliation Form sp3 - SBAR form sp3 Signatures: Dispatcher [employer] EDMS Chrissy Lake, RN RN bb Obnina Mcnulty, TRANSITION MANAGER-C TRANSITION MANAGER-Cla1 Karyn Cardoso RN RN tw2 Annabelle Aguilar RN RN eb1 Wilfrido Edward MD MD sp3 Beatris Prakash RN RN jh5 Melody Jovel RN RN jh6 Dulce Monroy 5 Corrections: (The following items were deleted from the chart) 18:02 17:56 SARS-COV-2 RT PCR+[id number].LAB.BRZ ordered. EDOK EDMS 22:46 18:25 sp3 eb1
[2021-06-01] MEDS ORDERED: VANCOMYCIN 1 GM in NA CHLORIDE 0.9% 250 ML IV SCH (19:00)
--- NOTE | 2021-06-01 19:10 | P.HP ---
Certification for Inpatient Patient admitted to: Observation With expected LOS: >2 Midnights Patient will require the following post-hospital care: None Practitioner: I am a practitioner with admitting privileges, knowledge of patient current condition, hospital course, and medical plan of care. Services: Services provided to patient in accordance with Admission requirements found in Title 42 Section 412.3 of the Code of Federal Regulations Patient History Date of Service: 06/01/21 Primary Care Provider: Dr. Nguyen Reason for admission: Pneumonia History of Present Illness: 75-year-old male with history of ESRD on HD MWF, COPD on chronic steroid therapy, hypertension, hypothyroidism, polycystic kidney disease, atrial fibrillation and history of bladder cancer presents the emergency department for shortness of breath and cough. Patient ports cough increasing over the course of last 3 to 4 days was seen at dialysis and told to come to the emergency room and for evaluation of cough. Labs are significant for white blood cell count 10 hemoglobin 12.6 medical 39.4 sodium 135 creatinine 5.45 GFR 10 glucose 159 fasting 4.0 troponin 0.07 BNP 57,464, patient did complete dialysis today Covid test negative CT chest without contrast demonstrates irregular nodularity bilaterally though more heavily concentrated in the left lower lobe concerning for infection or inflammation. Patient was given vancomycin and cefepime in the emergency department, this has been transitioned to Levaquin so patient can hopefully be transitioned to oral antibiotic tomorrow. Will admit for further evaluation and management of COPD, pneumonia. Allergies No Known Allergies Allergy (Verified 01/22/20 11:13) Home Medications: Levothyroxine [Synthroid*] 88 mcg PO DAILY 11/17/20 Folic Acid/Vitamin B Comp W-C [Aileen-Shari Tablet] 1 tab PO DAILY 02/18/21 Aspirin [Aspirin EC 81 MG] 1 tab PO DAILY 02/19/21 Atorvastatin Calcium 1 tab PO BEDTIME 02/19/21 Calcium Carbonate 750 2 tab PO TID 02/19/21 Fluticasone/Umeclidin/Vilanter [Trelegy Ellipta 200-62.5-25] 1 puff IH DAILY 02/19/21 Furosemide [Lasix] 1 tab PO BID 02/19/21 Hydroxyzine HCl [Atarax] 1 tab PO TID 02/19/21 Carvedilol [Coreg] 3.125 mg PO BID 90 Days #180 tablet 02/20/21 Levofloxacin [Levaquin] 250 mg PO M,W,F #6 tablet 02/20/21 Apixaban [Eliquis] 2.5 mg PO BID 30 Days #60 tablet 02/21/21 predniSONE [Deltasone*] 10 mg PO BID #20 tab 02/21/21 - Past Medical/Surgical History Diabetic: No -: HTN -: Hypothyroid -: polycystic kidney -: diverticulitis -: COPD -: anemia -: CKD -: bladder cancer -: AAA repair -: Colonoscopy Psychosocial/ Personal History: lives with - Family History Father -: Heart disease Mother -: Heart disease - Social History Smoking Status: Never smoker Alcohol use: No CD- Drugs: No Caffeine use: Yes Place of Residence: Home Review of Systems 10-point ROS is otherwise unremarkable General: Malaise Respiratory: Cough, Shortness of Breath, Sputum, Wheezing Physical Examination - Physical Exam General: Alert, In no apparent distress, Oriented x3 HEENT: Atraumatic, PERRLA, Mucous membr. moist/pink, EOMI, Sclerae nonicteric Neck: Supple, 2+ carotid pulse no bruit, No LAD, Without JVD or thyroid abnormality Respiratory: Clear to auscultation bilaterally, Expiratory wheezes Cardiovascular: Regular rate/rhythm, Normal S1 S2 Gastrointestinal: Normal bowel sounds, No tenderness Musculoskeletal: No tenderness Integumentary: No rashes Neurological: Normal speech, Normal strength at 5/5 x4 extr, Normal tone, Normal affect - Studies Laboratory Data (last 24 hrs) 06/01/21 16:35: PT 15.4 H, INR 1.34 06/01/21 16:35: WBC 10.00, Hgb 12.6 L, Hct 39.4 L, Plt Count 115 L 06/01/21 16:35: Sodium 135 L, Potassium 4.0, BUN 23 H, Creatinine 5.45 H*, Glucose 159 H, Magnesium 2.1, Total Bilirubin 0.6, AST 15, ALT 20, Alkaline Phosphatase 54 Assessment and Plan - Plan Assessment: Dyspnea, cough secondary to pneumonia complicated with underlying COPD with exacerbation on chronic steroid therapy ESRD on HD MWF Hypertension Hypothyroidism Polycystic kidney disease Atrial fibrillation not on chronic anticoagulation therapy History of bladder cancer Plan: Dyspnea, cough secondary to pneumonia complicated with underlying COPD with exacerbation on chronic steroid therapy: Have initiated Levaquin, hopefully can transition to oral tomorrow and have discharge. Will continue with incentive spirometry and treatment for COPD including IV steroids, nebulizer treatments. Also Dulera inhaler ordered. Patient does have home oxygen but does not typically use it. Patient was typically on 2 L at home. ESRD on HD MWF: Patient had Alysis today, this was completed. Nephrology consulted for additional management. Hypertension: Home medications continued Hypothyroidism: Home medications continued, thyroid panel with morning labs Polycystic kidney disease: Stable Atrial fibrillation not on chronic anticoagulation therapy: Patient previously with bladder cancer was recommended that he not take anticoagulation given hematuria, also likely to have future procedures. Monitor on telemetry continue beta-brayan follow-up with cardiology. History of bladder cancer: Stable. DVT PPX: Heparin Code status: Full Discharge Plan: Home Plan to discharge in: 24 Hours - Advance Directives Does patient have a Living Will: No Does patient have a Durable POA for Healthcare: No - Code Status/Comfort Care Code Status Assessed: Yes (FC) Critical Care: No Time Spent Managing Pts Care (In Minutes): 55
[2021-06-01] MEDS ORDERED: NA CHLORIDE 0.9% 250 ML ONE (22:59)
[2021-06-01] MEDS ORDERED: Levofloxacin 750mg IV 750 MG/150 ML BAG IV ONE (23:00)
[2021-06-01] MEDS: DULERA 200/5 (MOMETASONE/FORMOTEROL) INHALER IH SCH (23:18)
[2021-06-01] MEDS: ATORVASTATIN 40 MG TAB PO SCH (23:18)
[2021-06-01] MEDS ORDERED: ALBUTEROL 2.5 MG/3 ML NEB SOL NEB PRN (23:18)
[2021-06-01] MEDS ORDERED: IPRATROPIUM BROM 0.5MG/2.5ML NEB PRN (23:18)
[2021-06-01] MEDS ORDERED: ONDANSETRON 4 MG/2 ML VIAL IV PRN (23:18)
[2021-06-02] MEDS: METHYLPREDNISOLONE 40 MG INJ IV SCH ×3 (00:41→16:04)
[2021-06-02 00:46] VITALS: BMI 24.1
[2021-06-02] MEDS: HEPARIN 5000 UNIT/ML 1 ML VIAL SQ SCH ×2 (00:57→09:00)
[2021-06-02 03:52] LABS: Absolute Lymphocytes (CBC) 0.5 K/uL (0.7-4.9); Basophils % 0.3 % (0-1.3); Hematocrit 35.1 % (39.6-49.0); Lymphocytes % 6.1 % (15.3-44.8); MPV 8.5 fL (7.6-11.3); RBC Red Blood Cell Count 3.81 M/uL (4.33-5.43)
[2021-06-02 04:17] LABS: Albumin 2.6 g/dL (3.4-5.0); Bilirubin Total 0.5 mg/dL (0.2-1.0); Potassium 4.5 mmol/L (3.5-5.1); Protein, Total 6.7 g/dL (6.4-8.2); Thyroid Stimulating Hormone 2.09 uIU/mL (0.360-3.740); Troponin I 0.06 ng/mL (0.0-0.045)
[2021-06-02 04:45] LABS: Blood Morphology Comment NOT SEEN (NOT SEEN); Platelet Estimate ADEQ
[2021-06-02] MEDS: LEVOTHYROXINE SOD 0.088 MG TAB PO SCH (05:48)
[2021-06-02] MEDS: carvediloL 3.125 MG TAB PO SCH (05:49)
--- NOTE | 2021-06-02 05:54 | P.CNS ---
Date of Consult: 06/02/21 Primary Care Provider: Dr. 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 Chest imaging showed possible pneumonia. He is started on antibiotics. Allergies No Known Allergies Allergy (Verified 06/02/21 00:46) Home Medications: Levothyroxine [Synthroid*] 88 mcg PO DAILY 11/17/20 Atorvastatin Calcium 1 tab PO DAILY 02/19/21 Furosemide [Lasix] 1 tab PO BID 02/19/21 Carvedilol [Coreg] 3.125 mg PO BID 90 Days #180 tablet 02/20/21 Albuterol Inhaler [Ventolin Inhaler] 2 puff IH Q6H PRN 06/02/21 Budesonide [Pulmicort] 1 puff IH BID 06/02/21 Formoterol Fumarate 20 mcg IH BID 06/02/21 hydrOXYzine HCL [Atarax] 25 mg PO DAILY 06/02/21 predniSONE [Deltasone*] 10 mg PO DAILY 06/02/21 - Past Medical/Surgical History Diabetic: No -: HTN -: Hypothyroid -: polycystic kidney -: diverticulitis -: COPD -: anemia -: CKD -: bladder cancer -: AAA repair -: Colonoscopy Psychosocial/ Personal History: lives with - Family History Father Medical History: Heart disease Mother Medical History: Heart disease - Social History Smoking Status: Unknown if ever smoked Alcohol use: No CD- Drugs: No Caffeine use: Yes Place of Residence: Home Physical Examination Temp Pulse Resp BP Pulse Ox 97.5 F 83 18 120/55 L 98 06/02/21 04:00 06/02/21 05:49 06/02/21 04:00 06/02/21 05:49 06/02/21 04:00 Laboratory Data (last 24 hrs) 06/01/21 16:35: PT 15.4 H, INR 1.34 06/01/21 16:35: WBC 10.00, Hgb 12.6 L, Hct 39.4 L, Plt Count 115 L 06/01/21 16:35: Sodium 135 L, Potassium 4.0, BUN 23 H, Creatinine 5.45 H*, Glucose 159 H, Magnesium 2.1, Total Bilirubin 0.6, AST 15, ALT 20, Alkaline Phosphatase 54 Conclusions/Impression: # 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
--- NOTE | 2021-06-02 06:04 | P.PN ---
Subjective Date of Service: 06/02/21 Primary Care Provider: Dr. Nguyen Chief Complaint: Pneumonia Subjective: Improving, Doing well Physical Examination - Vital Signs Temperature: 97.5 F Blood Pressure: 120/55 Pulse: 83 Respirations: 18 Pulse Ox (%): 98 - Studies Laboratory Data (last 24 hrs) 06/01/21 16:35: PT 15.4 H, INR 1.34 06/01/21 16:35: WBC 10.00, Hgb 12.6 L, Hct 39.4 L, Plt Count 115 L 06/01/21 16:35: Sodium 135 L, Potassium 4.0, BUN 23 H, Creatinine 5.45 H*, Glucose 159 H, Magnesium 2.1, Total Bilirubin 0.6, AST 15, ALT 20, Alkaline Phosphatase 54 Assessment & Plan Discharge Plan: Home Plan to discharge in: 24 Hours Physician Review Additional Text: COVID: CT chest: COMPARISON: Chest Abd Pelvis Wo Con dated 11/17/2020; Thorax Wo Con dated 09/27/2020; Abdomen Pelvis W Contrast dated 02/19/2021; Abdomen Pelvis Wo Contrast dated 02/19/2021 FINDINGS: Chest Wall: No suspicious thyroid nodules or pathologic lymphadenopathy. Lungs: Scattered calcified pulmonary nodules. Increasing irregular nodularity throughout the lungs bilaterally, worse in the left lower lobe. Pleura: No significant effusions or pneumothorax. Mediastinum/shayy: No pathologic lymphadenopathy. Small hiatal hernia. Pulmonary arteries/Aorta: Limited evaluation without contrast. 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 Atherosclerosis. Similar contour deformity along the left aspect of the aortic arch likely the sequela of a prior penetrating atherosclerotic ulcer. . Heart: No significant pericardial effusion. Normal heart size. Multi-vessel coronary artery disease. Upper abdomen: Polycystic kidneys again noted. Low-density liver lesions are noted which were present prior CT as well. Bones: No acute abnormality. Remote mild T3 compression fracture. All CT scans are performed using dose optimization technique as appropriate and may include automated exposure control or mA/KV adjustment according to patient size. IMPRESSION: Irregular nodularity bilaterally, though more heavily concentrated in left lower lobe, concerning for infection or inflammation. Other chronic incidental findings as noted above. Physical exam: General: Alert, In no apparent distress, Oriented x3 HEENT: Atraumatic, PERRLA, Mucous membr. moist/pink, EOMI, Sclerae nonicteric Neck: Supple, 2+ carotid pulse no bruit, No LAD, Without JVD or thyroid abnormality Respiratory: Clear to auscultation bilaterally, Expiratory wheezes Cardiovascular: Regular rate/rhythm, Normal S1 S2 Gastrointestinal: Normal bowel sounds, No tenderness Musculoskeletal: No tenderness Integumentary: No rashes Neurological: Normal speech, Normal strength at 5/5 x4 extr, Normal tone, Normal affect Impression: Dyspnea, cough secondary to pneumonia complicated with underlying COPD with exacerbation on chronic steroid therapy ESRD on HD MWF with polycystic kidney disease Hypertension Hypothyroidism Atrial fibrillation not on chronic anticoagulation therapy History of bladder cancer Plan: Dyspnea, cough secondary to pneumonia complicated with underlying COPD with exacerbation on chronic steroid therapy: Continue with antibiotic treatment and COPD medication. Patient reports improvement. Maintain sats above 93%. Spoke at length with nephrology. Will have pulmonology evaluate patient for recommendation. Patient is to have bilateral nephrectomy and bladder removal due to recent bladder infection soon. Patient has been evaluated by pulmonology in [place] and has been cleared for surgery. Patient also cleared by cardiology. Patient has aortic abdominal aneurysm. This is being evaluated by cardiovascular surgery. They are to decide on plan of care. Anticipate continued improvement likely home tomorrow. ESRD on HD MWF with polycystic kidney disease: Spoke with nephrology at length. Patient will receive dialysis tomorrow. Hypertension: Continue home medication Hypothyroidism: Continue medication Home medications continued, thyroid panel with morning labs Polycystic kidney disease: Stable Atrial fibrillation not on chronic anticoagulation therapy: Patient previously with bladder cancer was recommended that he not take anticoagulation given hematuria, also likely to have future procedures. Monitor on telemetry continue beta-brayan follow-up with cardiology. History of bladder cancer: Patient seen by urology in [place]. Patient has been cleared by pulmonology in [place] and cardiology for bilateral nephrectomy and removal of bladder. Patient awaiting cardiovascular surgery clearance due to abdominal aortic aneurysm. DVT PPX: Heparin Code status: Full Discharge Plan: Home at discharge Time Spent Managing Pts Care (In Minutes): 55
[2021-06-02] MEDS: DULERA 200/5 (MOMETASONE/FORMOTEROL) INHALER IH SCH ×2 (09:19→20:12)
[2021-06-02] MEDS: FUROSEMIDE 20 MG TABLET PO SCH ×2 (09:19→16:07)
--- NOTE | 2021-06-02 12:17 | CON ---
Date of Consultation: 06/02/2021 Reason For Consultation: Elevated BUN and creatinine, dialysis management. History Of Present Illness: This is a pleasant 75-year-old gentleman, well known to me from dialysis with significant past medical history of end-stage renal disease, on dialysis Sunday, Sunday, Sun, dialyzed at [facility] through AV fistula, polycystic kidney disease, hypothyroidism, b ladder cancer, status post partial resection by Dr. Huang, COPD, AAA. The patient was in his peoples hospital state of health, came to dialysis yesterday complaining of severe shortness of breath. The ari ent was challenged on the dialysis yesterday, but the patient continued to have shortness of breath. For that reason, he reported to the hospital. In the hospital CT and chest x-ray showing interstiti al infiltration as interstitial pneumonia. Past Medical History: Include: 1.Hypertension. 2.Polycystic kidney disease. 3.COPD. 4.Hypothyroidism. 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 Plan for bilateral nephr ectomy by Dr. Huang in [place]. Waiting for vascular clearance. He was cleared by Pulmonary and Cardiology. 6.Triple A. 7.COPD. 8.Thoracic aneurysm. Past Surgical History: 1.Includes AV fistula creation. 2.Cystoscopy. 3.Colonoscopy. Family History: Positive for coronary artery disease, polycystic kidney disease. Social History: Ex-smoker. Denied alcohol. Denied drug abuse. Review of Systems: Head and Neck: No red eye. No ear pain. GI: No nausea, no vomiting. : Has hematuria. [employer]: Not applicable. Respiratory: Has shortness of breath, has cough. Cardiovascular: Has chest tightness. Endocrine: No polydipsia. Skin: No rash. Neuro: Has low back pain. Musculoskeletal: Generalized fatigue. Physical Examination: Vital Signs: When I saw the patient; blood pressure of 120/55, pulse of 83, afebrile. Chest: Crackles. Bilateral wheezing. Heart: S1, S2. Systolic murmur. Abdomen: Soft, nontender. Extremities: No edema. Neurological: Alert, oriented x3. No focal. Laboratory Data: WBC 8.8, H and H 11.5/35.1, platelet 93. Sodium 136, potassium 4.5, bicarb 26, BUN 27, creatinine 6.2, calcium 8.4, albumin 2.6. Current Medications: The patient on include: 1.Levaquin. 2.Carvedilol. 3.Lasix. 4.Ipratropium. 5.Levothyroxine. 6.Solu-Medrol. 7.Mometasone. 8.Inhaler. Assessment And Plan: 1.End-stage renal disease, over volume. The patient was dialyzed yesterday. We will challenge the patient again. We will do another session of dialysis tomorrow and we will follow up. 2.Hypertension. We will utilize blood pressure for more ultrafiltration. 3.Anemia of chronic kidney disease, stable. I do not see need for BRONWYN. 4.Over volume. The patient is going to be challenged. 5.Pneumonia with chronic obstructive pulmonary disease exacerbation. We will consult Pulmonary. 6.Bladder cancer. Follow up as outpatient. ABDULAZIZ Voice ID: [id number] Report ID: [id number]
--- NOTE | 2021-06-02 13:40 | P.CNS ---
Date of Consult: 06/02/21 Reason for Consult: COPD exacerbation Primary Care Provider: Dr. Nguyen Chief Complaint: Shortness of breath History of Present Illness: Patient is 75 years of age with a history of COPD chronic renal failure on hemodialysis admitted with acute onset of shortness of breath for 4 days preceding hospitalization and nonproductive cough currently he only take short acting bronchodilators including Ventolin and nebulizer denies any fever or chills patient has a history of progressive bladder cancer has been scheduled for nephrectomy Allergies No Known Allergies Allergy (Verified 06/02/21 00:46) Home Medications: Levothyroxine [Synthroid*] 88 mcg PO DAILY 11/17/20 Atorvastatin Calcium 1 tab PO DAILY 02/19/21 Furosemide [Lasix] 1 tab PO BID 02/19/21 Carvedilol [Coreg] 3.125 mg PO BID 90 Days #180 tablet 02/20/21 Albuterol Inhaler [Ventolin Inhaler] 2 puff IH Q6H PRN 06/02/21 Budesonide [Pulmicort] 1 puff IH BID 06/02/21 Formoterol Fumarate 20 mcg IH BID 06/02/21 hydrOXYzine HCL [Atarax] 25 mg PO DAILY 06/02/21 predniSONE [Deltasone*] 10 mg PO DAILY 06/02/21 - Past Medical/Surgical History Diabetic: No -: HTN -: Hypothyroid -: polycystic kidney -: diverticulitis -: COPD -: anemia -: CKD -: bladder cancer -: AAA repair -: Colonoscopy Psychosocial/ Personal History: lives with - Family History Father Medical History: Heart disease Mother Medical History: Heart disease - Social History Smoking Status: Unknown if ever smoked Alcohol use: No CD- Drugs: No Caffeine use: Yes Place of Residence: Home Review of Systems General: Weakness Respiratory: Cough, Shortness of Breath Physical Examination Temp Pulse Resp BP Pulse Ox 97.1 F 81 20 125/65 96 06/02/21 12:00 06/02/21 12:00 06/02/21 12:00 06/02/21 12:00 06/02/21 12:00 General: Alert, Oriented x3 Respiratory: Expiratory wheezes Cardiovascular: No edema, Regular rate/rhythm Gastrointestinal: Normal bowel sounds, Soft and benign Integumentary: No rashes, No breakdown Laboratory Data (last 24 hrs) 06/01/21 16:35: PT 15.4 H, INR 1.34 06/01/21 16:35: WBC 10.00, Hgb 12.6 L, Hct 39.4 L, Plt Count 115 L 06/01/21 16:35: Sodium 135 L, Potassium 4.0, BUN 23 H, Creatinine 5.45 H*, Glucose 159 H, Magnesium 2.1, Total Bilirubin 0.6, AST 15, ALT 20, Alkaline Phosphatase 54 - Problems (1) COPD exacerbation Current Visit: Yes Status: Acute Plan: Patient is 75 years of age admitted with worsening shortness of breath he has bilateral interstitial changes patchy infiltrates have had bilateral pneumonia I agree with low-dose prednisone 10 twice a day for 10 days in addition to Levaquin to 50 mg alternating at least 10 days in total is not currently septic patient has extensive bladder cancer scheduled for a bilateral nephrectomy otherwise vital signs are okay he does have oxygen at home he does monitor his pulse ox on his home medication list states that patient is on formoterol and Pulmicort we will have to verify the addition to low-dose prednisone
[2021-06-02] MEDS: ATORVASTATIN 40 MG TAB PO SCH (20:12)
[2021-06-03] MEDS: METHYLPREDNISOLONE 40 MG INJ IV SCH ×2 (00:18→07:57)
[2021-06-03 04:26] LABS: Absolute Lymphocytes (CBC) 0.4 K/uL (0.7-4.9); Basophils % 0.1 % (0-1.3); Hematocrit 34.5 % (39.6-49.0); Lymphocytes % 6.3 % (15.3-44.8); MPV 8.8 fL (7.6-11.3)
[2021-06-03 04:42] LABS: Albumin 2.6 g/dL (3.4-5.0); Bilirubin Total 0.4 mg/dL (0.2-1.0); Potassium 4.9 mmol/L (3.5-5.1); Protein, Total 6.5 g/dL (6.4-8.2)
[2021-06-03 05:12] VITALS: TEMP 97.3
[2021-06-03] MEDS: carvediloL 3.125 MG TAB PO SCH (05:45)
[2021-06-03] MEDS: LEVOTHYROXINE SOD 0.088 MG TAB PO SCH (05:45)
--- NOTE | 2021-06-03 06:06 | P.DS ---
Admission Date: 06/03/21 Discharge Date: 06/03/21 Primary Care Provider: Dr. Nguyen Disposition: ROUTINE DISCHARGE Discharge Condition: GOOD Reason for Admission: Shortness of breath Consultations: Pulmonary-Dr. Browne Nephrology-Dr. Hector Procedures: COVID: negative CT chest: COMPARISON: Chest Abd Pelvis Wo Con dated 11/17/2020; Thorax Wo Con dated 09/27/2020; Abdomen Pelvis W Contrast dated 02/19/2021; Abdomen Pelvis Wo Contrast dated 02/19/2021 FINDINGS: Chest Wall: No suspicious thyroid nodules or pathologic lymphad enopathy. Lungs: Scattered calcified pulmonary nodules. Increasing irregular nodularity throughout the lungs bilaterally, worse in the left lower lobe. Pleura: No significant effusions or pneumothorax. Mediastinum/shayy: No pathologic lymphadenopathy. Small hiatal hernia. Pulmonary arteries/Aorta: Limited evaluation without contrast. 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 Atherosclerosis. Similar contour deformity along the left aspect of the aortic arch likely the sequela of a prior penetrating atherosclerotic ulcer. . Heart: No significant pericardial effusion. Normal heart size. Multi-vessel coronary artery disease. Upper abdomen: Polycystic kidneys again noted. Low-density liver lesions are noted which were present prior CT as well. Bones: No acute abnormality. Remote mild T3 compression fracture. All CT scans are performed using dose optimization technique as appropriate and may include automated exposure control or mA/KV adjustment according to patient size. IMPRESSION: Irregular nodularity bilaterally, though more heavily concentrated in left lower lobe, concerning for infection or inflammation. Other chronic incidental findings as noted above. Medical Problem List: Dyspnea, cough secondary to bilateral pneumonia complicated with underlying COPD with exacerbation on chronic steroid therapy and home oxygen ESRD on HD [facility] with polycystic kidney disease Hypertension Hypothyroidism Atrial fibrillation not on chronic anticoagulation therapy History of bladder cancer Hyperlipidemia Descending thoracic aortic aneurysm measuring 5.8 cm unchanged Brief History of Present Illness: 75-year-old male with history of ESRD on HD [facility], COPD on chronic steroid therapy, hypertension, hypothyroidism, polycystic kidney disease, atrial fibrillation and history of bladder cancer presents the emergency department for shortness of breath and cough. Patient was seen and evaluated. CT scan showed irregularity nodularity bilateral. COPD exacerbation with possible pneumonia was suspected. Patient admitted for treatment. Hospital Course: Patient presented with dyspnea and cough. Patient admitted for further evaluation and treatment. Patient found to have bilateral pneumonia complicated with COPD exacerbation. Patient with history of COPD on chronic steroids and home oxygen. CT scan revealed bilateral changes with interstitial changes as well. Patient responded well to IV steroids and antibiotic treatment. Patient seen and evaluated by pulmonology. No further intervention required. At discharge patient will continue with Levaquin 250 mg every 48 hours up to 3 doses. The patient will continue with prednisone 10 mg 1 pill twice daily for 7 days then continue with his regular regimen of prednisone 10 mg daily. At discharge the patient will also continue with his current medications of Pulmicort 1 puff twice daily and formoterol 20 mcg 1 puff twice daily. Patient may also continue with albuterol 2 puffs 3 times a day as needed for shortness of breath. Patient will continue with oxygen to maintain sats above 93%. Patient currently on 2 L per nasal cannula. Recommend follow-up with his machine tender in [place] as the patient prepares for possible surgery. Recommend with his PCP in 1 week to follow-up his hospitalization. Patient with end-stage renal disease on hemodialysis. Patient with history of polycystic kidney disease and bladder cancer. Patient has seen urology in [place]. Patient also has seen pulmonology and cardiology in preparation for major surgery to include bilateral nephrectomy and removal of bladder and ureter. Patient is waiting to see cardiovascular surgery for clearance as the patient has an descending thoracic aortic aneurysm. CT scan shows aortic aneurysm measuring 5.8 cm unchanged since prior exam. Patient has done well. Renal function stable. Patient received dialysis during the course of his stay. At discharge patient will continue with dialysis every Sunday, Sunday and Sunday. Patient will follow up with urology/oncology to further address his conditions and future surgery. Patient will continue with Lasix 20 mg 1 pill twice daily. Patient with hypertension. At discharge patient will continue with carvedilol 3.125 mg 1 pill twice daily. Recommend to maintain blood pressure less 130/80. Further adjustment can be done by his PCP. Patient with hypothyroidism. Overall stable. At discharge patient will continue with Synthroid 88 mcg daily. Patient with history of atrial fibrillation not on chronic anticoagulation therapy. Patient remains in normal sinus rhythm. Overall stable. Patient will continue with his carvedilol as directed. Patient with hyperlipidemia. At discharge patient will continue with Lipitor 40 mg daily. Vital Signs/Physical Exam: Temp Pulse Resp BP Pulse Ox 97.3 F 88 19 131/60 92 06/03/21 04:00 06/03/21 05:45 06/03/21 04:00 06/03/21 05:45 06/03/21 04:00 General: Alert, In no apparent distress, Oriented x3, Cooperative HEENT: Atraumatic Neck: Supple Respiratory: Clear to auscultation bilaterally, Other (2 L per nasal cannula) Cardiovascular: Normal pulses, Regular rate/rhythm Gastrointestinal: Normal bowel sounds, No tenderness, No masses, No rebound, No guarding Musculoskeletal: No erythema, No tenderness, No warmth Integumentary: No tenderness/swelling, No erythema, No warmth, No cyanosis Neurological: Normal speech, Normal strength at 5/5 x4 extr, Normal tone, Normal affect Laboratory Data at Discharge: WBC 7.10 K/uL (4.3-10.9) D 06/03/21 03:38 Hgb 11.0 g/dL (13.6-17.9) L 06/03/21 03:38 Hct 34.5 % (39.6-49.0) L 06/03/21 03:38 Plt Count 99 K/uL (152-406) L 06/03/21 03:38 PT 15.4 SECONDS (9.5-12.5) H 06/01/21 16:35 INR 1.34 06/01/21 16:35 Sodium 134 mmol/L (136-145) L 06/03/21 03:38 Potassium 4.9 mmol/L (3.5-5.1) 06/03/21 03:38 BUN 60 mg/dL (7-18) H D 06/03/21 03:38 Creatinine 8.24 mg/dL (0.55-1.3) H* D 06/03/21 03:38 Glucose 229 mg/dL (74-106) H 06/03/21 03:38 Magnesium 2.1 mg/dL (1.8-2.4) 06/01/21 16:35 Total Bilirubin 0.4 mg/dL (0.2-1.0) 06/03/21 03:38 AST 36 U/L (15-37) 06/03/21 03:38 ALT 46 U/L (12-78) 06/03/21 03:38 Alkaline Phosphatase 64 U/L (45-117) D 06/03/21 03:38 Troponin I 0.06 ng/mL (0.0-0.045) H 06/02/21 03:27 Home Medications: Levothyroxine [Synthroid*] 88 mcg PO DAILY 11/17/20 Atorvastatin Calcium 1 tab PO DAILY 02/19/21 Furosemide [Lasix] 1 tab PO BID 02/19/21 Carvedilol [Coreg] 3.125 mg PO BID 90 Days #180 tablet 02/20/21 Albuterol Inhaler [Ventolin Inhaler*] 2 puff IH Q6H PRN 06/02/21 Budesonide [Pulmicort*] 1 puff IH BID 06/02/21 Formoterol Fumarate 20 mcg IH BID 06/02/21 hydrOXYzine HCL [Atarax*] 25 mg PO DAILY 06/02/21 predniSONE [Deltasone*] 10 mg PO DAILY 06/02/21 Levofloxacin [Levaquin] 250 mg PO Q48H #3 tablet 06/03/21 predniSONE [Deltasone*] 10 mg PO BID #14 tab 06/03/21 New Medications: predniSONE [Deltasone*] 10 mg PO BID #14 tab Levofloxacin [Levaquin] 250 mg PO Q48H #3 tablet Physician Discharge Instructions: Patient presented with dyspnea and cough. Patient admitted for further evaluation and treatment. Patient found to have bilateral pneumonia complicated with COPD exacerbation. Patient with history of COPD on chronic steroids and home oxygen. CT scan revealed bilateral changes with interstitial changes as well. Patient responded well to IV steroids and antibiotic treatment. Patient seen and evaluated by pulmonology. No further intervention required. At discharge patient will continue with Levaquin 250 mg every 48 hours up to 3 doses. The patient will continue with prednisone 10 mg 1 pill twice daily for 7 days then continue with his regular regimen of prednisone 10 mg daily. At discharge the patient will also continue with his current medications of Pulmicort 1 puff twice daily and formoterol 20 mcg 1 puff twice daily. Patient may also continue with albuterol 2 puffs 3 times a day as needed for shortness of breath. Patient will continue with oxygen to maintain sats above 93%. Patient currently on 2 L per nasal cannula. Recommend follow-up with his machine tender in [place] as the patient prepares for possible surgery. Recommend with his PCP in 1 week to follow-up his hospitalization. Patient with end-stage renal disease on hemodialysis. Patient with history of polycystic kidney disease and bladder cancer. Patient has seen urology in [place]. Patient also has seen pulmonology and cardiology in preparation for major surgery to include bilateral nephrectomy and removal of bladder and ureter. Patient is waiting to see cardiovascular surgery for clearance as the patient has an descending thoracic aortic aneurysm. CT scan shows aortic aneurysm measuring 5.8 cm unchanged since prior exam. Patient has done well. Renal function stable. Patient received dialysis during the course of his stay. At discharge patient will continue with dialysis every Sunday, Sunday and Sunday. Patient will follow up with urology/oncology to further address his conditions and future surgery. Patient will continue with Lasix 20 mg 1 pill twice daily. Patient with hypertension. At discharge patient will continue with carvedilol 3.125 mg 1 pill twice daily. Recommend to maintain blood pressure less 130/80. Further adjustment can be done by his PCP. Patient with hypothyroidism. Overall stable. At discharge patient will continue with Synthroid 88 mcg daily. Patient with history of atrial fibrillation not on chronic anticoagulation therapy. Overall stable. Patient remains in normal sinus rhythm. Patient will continue with his carvedilol as directed. Patient with hyperlipidemia. At discharge patient will continue with Lipitor 40 mg daily. Diet: AHA Activity: Fall precautions Followup: Mookie Nguyen MD [Primary Care Provider] - Time spent managing pt's care (in minutes): 55
--- NOTE | 2021-06-03 07:27 | P.PN ---
Subjective Date of Service: 06/03/21 Primary Care Provider: Dr. Nguyen Chief Complaint: Shortness of breath Physical Examination - Vital Signs Temperature: 97.3 F Blood Pressure: 131/60 Pulse: 88 Respirations: 19 Pulse Ox (%): 92 - Studies Microbiology Data (last 24 hrs): 06/01/21 19:10 Sputum Sputum Gram Stain - Final Assessment And Plan - Plan 1. End-stage renal disease, over volume. The patient was dialyzed yesterday. We will challenge the patient again. We will do another session of dialysis tomorrow and we will follow up. 2. Hypertension. We will utilize blood pressure for more ultrafiltration. 3. Anemia of chronic kidney disease, stable. I do not see need for BRONWYN. 4. Over volume. The patient is going to be challenged. 5. Pneumonia with chronic obstructive pulmonary disease exacerbation. We will consult Pulmonary. 6. Bladder cancer. Follow up as outpatient.
[2021-06-03] MEDS: FUROSEMIDE 20 MG TABLET PO SCH (07:57)
[2021-06-03] MEDS: DULERA 200/5 (MOMETASONE/FORMOTEROL) INHALER IH SCH (07:58)
[2021-06-03 07:59] VITALS: BP 127/59
[2021-06-03 09:26] VITALS: O2SAT 93
[2021-06-04] MEDS ORDERED: Levofloxacin500mg IV 500 MG/100 ML BAG IV SCH (21:00)
== END 2021-06-03 14:30 | disposition home or self-care (01) | DRG 193 ==
LOC: ER 15:58 → ERHOLD 19:33 → 4TH 23:12 → OBSVTOIN 06-03 07:53
PROVIDERS: ADMIT Family Medicine; ATTEND Family Medicine
PROC: 5A1D70Z Performance of Urinary Filtration, Intermittent, Less than 6 Hours Per Day (ICD-10-PCS; principal; 2021-06-03)
DX: J18.9 Pneumonia, unspecified organism (principal); N18.6 End stage renal disease; J44.0 Chronic obstructive pulmonary disease with (acute) lower respiratory infection; J44.1 Chronic obstructive pulmonary disease with (acute) exacerbation; I12.0 Hypertensive chronic kidney disease with stage 5 chronic kidney disease or end stage renal disease; Q61.3 Polycystic kidney, unspecified; I48.91 Unspecified atrial fibrillation; E78.5 Hyperlipidemia, unspecified; I71.2 Thoracic aortic aneurysm, without rupture; D63.1 Anemia in chronic kidney disease; I71.4 Abdominal aortic aneurysm, without rupture; E03.9 Hypothyroidism, unspecified; Z85.51 Personal history of malignant neoplasm of bladder; Z99.2 Dependence on renal dialysis; Z79.890 Hormone replacement therapy; Z79.899 Other long term (current) drug therapy; Z79.82 Long term (current) use of aspirin; Z79.01 Long term (current) use of anticoagulants; Z79.52 Long term (current) use of systemic steroids; Z99.81 Dependence on supplemental oxygen
CPT/HCPCS: 36415; 71046; 71250; 80048; 80053; 80076; 83735; 83880; 84145; 84439; 84443; 84484; 85025; 85610; 87070; 87205; 90935; 93005; 94010; 96365; 96366; 96375; 99285; G0378; J0692; J1644; J2920; J3370; J7050; J7606

== ENCOUNTER 2021-07-10 14:56 | Emergency (ER) | payer OTHER ==
--- OUTSIDE RECORDS SUMMARY | 2021-07-10 15:05 | XMS REPORT | Continuity of Care Document ---
:1945 Author Organization [facility] t Address [address] [place] [address] Care Team Providers Name Role Phone ALYSSA FARRIS Primary Care Physician Unavailable RAMESH HUANG Attending Clinician Unavailable ALYSSA FARRIS Attending Clinician Unavailable TONNY ACEVEDO Attending Clinician Unavailable AMY GORMAN Attending Clinician Unavailable SUMANTH NOLAN Attending Clinician [...] Expiration Source Date Date MEDICARE A B [id number] 2010 00:00:00 [employer] [id number] 2016 00:00:00 CDC REVIEW [id number] 2020 2020 00:00:00 00:00:00 MEDICAREMEDICARE PART [id number] 2010 Il thodist A AND 00:00:00 Hospital [id number] 2009 [place] [id number] 2020 Methodis t CASUALTYArtklikk LIFE 00:00:00 Hosp ital AND FORAYLGFjgydq46635/2020-PresentCommercia l Problems Condition Condition Condition Status Onset Resolution Last Treating Co mments Source Name Details Category Date Date Treatment Clinician Date 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 Medical 00 [place] Hematuria Hematuria Disease Active [facility] - [facility] Medical [place] Altered Altered Disease Active [facility] mental mental 3-05 [place] - status status 00:00: Medical 00 [place] s/p L CEA s/p L CEA Disease [...] Last C HI St on on 12-19 Assessmen [facility] - 00:[facility]: t & Plan: Medical 00 Continue [...] 00 Center COPD COPD Disease Active Last [facility] (chronic (chronic 6-27 Assessmen [facility] - obstructiv obstructiv 00:00: t & Plan: Medical e e 00 [facility] Center pulmonary pulmonary d with disease) disease) inhalers. No history of smoking. Asthma Asthma Disease Active [facility] ESRD (end ESRD (end Disease Active [facility] stage stage [facility] - renal renal Medical disease) disease) Center Dialysis Dialysis Disease Active [facility] S t patient patient [facility] S/P S/P Disease Active [facility] carotid carotid [facility] endarterec endarterec Il dicid trinity [facility] Acute Acute Disease Active [facility] blood loss blood loss [facility] anemia anemia [facility] Hypovolemi Hypovolemi Disease Active C HI [facility] c shock c shock [facility] Vasogenic Vasogenic Disease Active [facility] shock shock [facility] Bradycardi Bradycardi Disease Active C HI [facility] a a [facility] Hypothyroi Hypothyroi Disease Active C HI St dism, dism, kes - unspecifie unspecifie Me dical d type d type Center ESRD on ESRD on Disease Active [facility] hemodialys hemodialys [facility] Allergies, Adverse Reactions, Alerts Allergy Allergy Status Severity Reaction(s) Onset Inactive Treating Comm ents Source Name Type Date Date Clinician NO KNOWN Allergy Active [facility] ALLERGIE S Family History Family Member Diagnosis Comments Start Date Stop Date Source Natural father Hypertension [facility] Natural father Heart disease [facility] Natural father Heart failure [facility] Natural mother Cancer [facility] Natural mother Hypertension [facility] Natural sister COPD [facility] Natural brother Cancer [facility] Natural daughter Polycystic kidney C HI [facility] Social History Social Habit Start Date Stop Date Quantity Comments Source History of tobacco Smoker [facility] Sex Assigned At [facility] Tobacco use and 2021-02-10 2021-02-10 Never used [facility] - exposure 00:00:00 00:00:00 Medical [place] Alcohol intake 2021-02-10 2021-02-[address] [facility] - 00:00:00 00:00:00 non-drinker of Medical Ce nter alcohol (finding) History SDPA 2020-07-29 2020-07-29 1 [facility] Alcohol Frequency 00:00:00 00:00:00 Hospita l History SDOH 2020-07-29 2020-07-29 99 [facility] Alcohol Std Drinks 00:00:00 00:00:00 Hospit al History SDOH 2020-07-29 2020-07-29 1 [facility] Alcohol Binge 00:00:00 00:00:00 Hospital Smoking Status Start Date Stop Date Source Former smoker 2021-02-10 00:00:00 2021-02-10 00:00:[address] [facility] [facility] Medications Ordered Filled Start Stop [...] daily. Medical 08 Center calcium Yes 1{tbl} [id number] Take [address] carbonate 8-19 [id number] tablet by [facility] - (Calcium 13:26: 3D [...] QD Inhale by C HI St -umeclidin- - mouth via Crispin es - vilanter 13:26: inhaler Medica l (Trelegy 08 daily. Center Ellipta) 100-62.5-25 mcg DsDv fluticasone 2020- No 2{puff} Q.5D Inhale [address] propion-burak - 08-19 puffs by Crispin es - meteroL 13:25: 00:00 mouth via Medi rinku 113-14 44 :00 inhaler 2 Center mcg/actuati (two) on AePB times daily. levoFLOXaci 2020- No 250mg Take [address] n 8- 08-13 tablet [facility] - (Levaquin) 00:00: 23:59 [...] 00:00 mouth. Medica l capsule 29 :00 [place] levoFLOXaci 2020- No 250mg QD Take [address] n -27 04-27 mg by [facility] - (LEVAQUIN) 16:01: 00:00 mouth Medic al 250 MG 25 :00 daily. Center tablet predniSONE No 20mg QD Take [address] (DELTASONE) 10-19 04-27 by mouth [facility]pin [facility] - 20 MG 16:00: 00:00 daily. Medical tablet 39 :00 [place] metoprolol 2020- No 50mg Q.5D Take 50 [...] .4mg QD Take [address] (FLOMAX) 3- 04-11 capsule [facility] - 0.4 mg Cap [...] for 30 days. oxybutynin 2020- No 5mg [id number] Take [address] (DITROPAN) 3-11 04-10 [id number] tablet (5 [facility] - 5 MG tablet [...] daily. Hospi ta 02 :00 l metoprolol 25mg Take 25 mg Methodi tartrate 07-29- [...] QD Take 17 g Methodi e glycol 07-[address] (MIRALAX) 00:00: 05:59 daily for Ho spita 17 gram 00 :00 30 days. l packet Take while taking narcotic based pain meds. traMADoL [id number] 50mg Q6H Take 1 Metho di (Ultram) [...] cm Systolic blood 2021-02-10 13:25:00 131 mm[Hg] [facility] Diastolic blood 2021-02-10 13:25:00 65 mm[Hg] [facility] Heart rate 2021-02-10 13:25:00 101 /min [facility] Body temperature 2021-02-10 13:25:00 36.72 Jailyn [facility] Body weight 2021-02-10 13:25:[address] [facility] BMI 2021-02-10 13:25:00 27.08 kg/m2 [facility] Respiratory rate 2020-10-27 17:00:00 18 /min [facility] Oxygen saturation in 2020-10-27 17:00:00 98 /min [facility] Arterial blood by Medical Ce nter Pulse oximetry Body height 2020-10-23 02:16:[address] [facility] Systolic blood 2020-07-29 16:16:00 136 mm[Hg] [facility] pressure Diastolic blood 2020-07-29 16:16:00 65 mm[Hg] [facility] pressure Heart rate 2020-07-29 16:16:00 90 /min [facility] Body temperature 2020-07-29 16:16:00 37.17 Jailyn [facility] Oxygen saturation in 2020-07-29 16:16:00 95 /min [facility] Arterial blood by Pulse oximetry Respiratory rate 2020-07-29 16:15:00 12 /min [facility] Body height 2020-07-29 11:29:00 177.8 cm [facility] Body weight 2020-07-29 11:29:00 82.3 kg [facility] BMI 2020-07-29 11:29:00 26.03 kg/m2 [facility] Procedures Procedure Date / Time Performing Clinician Source Performed URINE CULTURE, ROUTINE 2021-01-13 15:02:00 Reina [facility] URINE CULTURE, ROUTINE 2020-11-04 15:40:00 Reina [facility] UA/M W/RFLX CULTURE, 2020-11-04 15:40:00 Sebas Huang [facility] MICROSCOPIC EXAMINATION 2020-11-04 15:40:00 Sebas Huang [facility] PREPARE LEUKO-REDUCED 2020-10-28 23:54:[address] [facility] RBC [facility] TRANSFUSE LEUKO-REDUCED 2020-10-27 11:34:36 Keith [facility] RED BLOOD CELLS [facility] HEMODIALYSIS INPATIENT 2020-10-27 07:47:37 Keith [facility] BASIC METABOLIC PANEL 2020-10-27 04:39:00 Reina [facility] (7) [facility] CBC W/PLT COUNT & AUTO 2020-10-27 04:39:00 RastaSuzan [facility] BASIC METABOLIC PANEL 2020-10-26 03:41:00 Reina [facility] (7) [facility] CBC W/PLT COUNT & AUTO 2020-10-26 03:41:00 RastaSuzan [facility] TISSUE EXAM 2020-10-25 18:39:[address] [facility] CYSTOSCOPY,INSERTION 2020-10-25 17:37:00 Reina [facility] - URETERAL STENTS [facility] POTASSIUM 2020-10-25 13:16:00 Cuauhtemoc Dixon [facility] HEPATITIS B SURFACE 2020-10-25 09:18:00 Robert Hector [facility] HEMODIALYSIS INPATIENT 2020-10-25 08:42:58 Alroumoh, [facility] BASIC METABOLIC PANEL 2020-10-25 06:09:00 [facility] PHOSPHORUS 2020-10-25 06:09:00 Tawny [facility] CBC (HEMOGRAM ONLY) 2020-10-25 06:09:00 [facility] TYPE AND SCREEN, 2020-10-24 13:45:00 Sebas Huang [facility] - AUTOMATED [facility] HEPATITIS B SURFACE 2020-10-23 14:18:00 [facility] HEMODIALYSIS INPATIENT 2020-10-23 11:41:00 [facility] BASIC METABOLIC PANEL 2020-10-23 04:31:00 [facility] () [facility] CBC W/PLT COUNT & AUTO 2020-10-23 04:31:00 Tawny OteroManuel [facility] SARS-COV2/RT-PCR ([facility] & 2020-10-22 23:20:[address] [facility] - REF LABS) [facility] CT ABDOMEN/PELVIS WITH 2020-10-22 21:31:00 Rayshawn Otero [facility] - IV CONTRAST [facility] CBC W/PLT COUNT & AUTO 2020-10-22 21:12:00 [facility] URINE CULTURE 2020-10-22 11:48:00 Sebas Huang [facility] BASIC METABOLIC PANEL 2020-10-22 11:48:[address] (7) [facility] CBC W/PLT COUNT & AUTO 2020-10-22 11:48:00 Sebas Huang [facility]I kes - DIFFERENTIAL [facility] PT/APTT 2020-10-22 11:48:00 [facility] TYPE AND SCREEN, 2020-10-22 11:48:00 Sebas Huang [facility]I kes - AUTOMATED [facility] CT ABDOMEN/PELVIS WITH & 2020-09-21 13:12:[address] [facility] - WITHOUT IV CONTRAST [facility] er MR ABDOMEN WITHOUT IV 2020-09-02 11:20:[address] - CONTRAST [facility] MR PELVIS WITHOUT IV 2020-09-02 11:20:00 Sebas Huang [facility] - CONTRAST [facility] TISSUE EXAM 2020-08-31 12:53:[address] [facility] - [facility] FL FLUORO NON-SPECIFIC 2020-08-31 12:50:00 Sebas Huang [facility] - UP TO 1 HOUR [facility] CYSTOSCOPY,INSERTION 2020-08-31 11:42:00 Sebas Huang CHI - URETERAL STENTS [facility] CBC W/PLT COUNT & AUTO 2020-08-31 04:50:00 Arianna Whitt [facility] COMPREHENSIVE METABOLIC 2020-08-31 04:50:00 Pedro Farris CH I [facility] MAGNESIUM 2020-08-31 04:50:00 Pedro Farris [facility] NM MYOCARDIAL PERFUSION 2020-08-30 16:44:00 Sebas Huang [facility] - SPECT, PHARM(LEXISCAN) [facility] enter HEMODIALYSIS INPATIENT 2020-08-30 11:55:05 Jluis Parker [facility] CBC W/PLT COUNT & AUTO 2020-08-30 05:14:00 OnArianna salcido [facility] LIPID PANEL 2020-08-30 05:14:00 Ty, [facility] 2D ECHO W/ DOPPLER 2020-08-29 13:22:39 Ty, [facility] (CW/PW/COLOR) [facility] T4, FREE 2020-08-29 12:22:00 Ty, [facility] TSH 2020-08-29 12:22:00 Ty, [facility] FERRITIN 2020-08-29 12:22:00 Ty, Humberto [facility] VITAMIN B12 2020-08-29 12:22:00 Ty, Humberto [facility] PSA 2020-08-29 12:22:00 Ty, Humberto [facility] US RENAL COMPLETE 2020-08-29 11:15:00 Sebas Huang [facility] CT BRAIN WITHOUT IV 2020-08-29 05:02:00 Steve Welsh CH I [facility] TROPONIN I 2020-08-29 04:21:00 Emilio [facility] BASIC METABOLIC PANEL 2020-08-29 04:21:00 Jose Eduardo [facility] () [facility] CBC W/PLT COUNT & AUTO 2020-08-29 04:21:00 Jose Eduardo [facility] RETICULOCYTE COUNT 2020-08-29 04:21:00 Ty, Humberto [facility] OCCULT BLOOD, STOOL 2020-08-29 02:52:00 Owen Jhaveri [facility] TROPONIN I 2020-08-28 16:08:00 [facility] B SURFACE 2020-08-28 16:06:00 [facility] ANTIGEN [facility] HEPATITIS B SURFACE 2020-08-28 15:26:00 Keith [facility] ANTIBODY [facility] HEMODIALYSIS INPATIENT 2020-08-28 11:36:37 Keith [facility] TROPONIN I 2020-08-28 05:56:00 [facility] CBC W/PLT COUNT & AUTO 2020-08-28 05:56:[address] [facility] BASIC METABOLIC PANEL 2020-08-28 05:56:00 Pedro Farris [facility] (7) [facility] ECG 12-LEAD 2020-08-28 01:21:18 Unknown, Hl7 [facility] HEMOGLOBIN A1C 2020-08-28 01:19:00 Owen Jhaveri [facility] URINE CULTURE 2020-08-28 01:05:00 [facility]IN[facility]IS W/ REFLEX 2020-08-28 01:05:00 Owen Jhaveri [facility] URINE CULTURE [facility] CBC W/PLT COUNT & AUTO 2020-08-28 01:05:00 [facility] COMPREHENSIVE METABOLIC 2020-08-28 01:05:00 Janette Jhaveri [facility] MAGNESIUM 2020-08-28 01:05:00 Owen Jhaveri [facility] PHOSPHORUS 2020-08-28 01:05:00 [facility] PROTHROMBIN TIME/INR 2020-08-28 01:05:00 Owen Jhaveri [facility] HEPATIC FUNCTION PANEL 2020-08-28 01:05:00 Emilio [facility] LIPID PANEL 2020-08-28 01:05:00 Owen Jhaveri [facility] REPORT OF PROCEDURE - 2020-08-27 00:00:00 Provider, Yoko [facility] ENDOSCOPY SCAN Scanning [facility] ND AN ELECTIVE 2020-07-29 14:11:47 Rafael Blas Ho spital ENDOTRACHEAL AIRWAY THROMBECTOMY, GRAFT, AV 2020-07-29 13:39:00 Jose Keen [facility] POTASSIUM, SYRINGE 2020-07-29 13:00:00 Jose Keen [facility] POTASSIUM, SYRINGE 2020-07-29 12:11:00 Jose Keen [facility] HEMOGLOBIN, SYRINGE 2020-07-29 12:11:00 Jose Keen [facility] GLUCOSE LEVEL, SYRINGE 2020-07-29 12:11:00 Jose Ke[facility] ECG PRE/POST OP 2020-07-27 21:26:54 [facility] HEMOGLOBIN A1C 2020-07-27 21:19:00 [facility] HEMOGLOBIN 2020-07-27 21:19:00 Keen, Jose [facility] POTASSIUM LEVEL 2020-07-27 21:19:00 [facility] GLUCOSE LEVEL 2020-07-27 21:19:00 [facility] COVID-19 QUALITATIVE 2020-07-27 20:57:00 [facility] RT-PCR RHYTHM STRIP - SCAN 2020-02-19 12:30:59 Provider, Default [facility] - Scanning [facility] Plan of Care Planned Activity Planned Date Details Comments Source Future Scheduled 2021-08-[address] [facility] - [facility] 00:00[facility]00 [facility] [place] [facility] (procedure) [code = 625263771] Future Scheduled 2021-02-23 INFLUENZA VACCINE (#1) C [...] 00:00:00 (1 of 1 - Medical Center [id number] PCV13) [code = PNEUMOCOCCAL 65+ YRS (1 of 1 - [id number] PCV13)] Future Scheduled 1995 SHINGLES VACCINES (1 [...] Center SCREENING] Future Scheduled Hepatitis C screening [facility] Hospital Test (procedure) [code = 990375587] Future Scheduled COLONOSCOPY SCREENING [facility] Hospital Test [code = COLONOSCOPY SCREENING] Future Scheduled SHINGLES VACCINES (#1) [facility] Test [code = SHINGLES VACCINES (#1)] Future Scheduled COVID-19 VACCINE (2 - [facility] Test Pfizer 2-dose series) [code = COVID-19 VACCINE (2 - Pfizer 2-dose series)] Future Scheduled INFLUENZA VACCINE [facility] Test [code = INFLUENZA VACCINE] Encounters Start End Encounter Admission Attending Care Care Encounter Source Date/Time Date/Time Type Type Clinicians Facility Department ID 2021-04-03 Outpatient [facility] Surgery [id number] SLS 11:01:56 SEBAS 2021-04-02 Outpatient [facility] Surgery [id number] SLS 16:32:40 SEBSA 2021-04-02 Inpatient SURI [facility] [id number] SLS 06:41:40 [facility] 2021-03-30 Inpatient [facility] Surgery [id number] SLE 02:21:06 BIN 2021-06-07 2021-06-[address] [facility] [id number] SLE 08:31:56 08:31:56 ENID 2021-05-26 2021-05-[address] [facility] [id number] SLEH 00:00:00 00:00:00 BIN 2021-04-26 2021-04-26 Outpatient ADELINA [facility] [id number] SLS 13:26:28 23:59:00 2021-04-26 2021-04-26 Outpatient ADELINA HUANG [facility] [id number] SLS 13:26:17 23:59:00 SEBAS 2021-04-21 2021-04-21 Outpatient REINA [facility] [id number] [facility] 08:21:47 09:25:29 [facility] 2021-04-12 2021-04-12 Outpatient REINA [facility] [id number] 00:[facility]00 00:00:00 [facility] 2021-03-31 2021-03-31 Outpatient REINA [facility] [id number] 08:49:29 10:07:05 [facility] 2021-03-24 2021-03-24 Outpatient REINA [facility] [id number] 00:00:00 00:00:00 [facility] 2021-03-24 2021-03-24 Outpatient [facility] [id number] [facility] 00:00:00 00:00:00 2021-03-24 2021-03-24 Outpatient EL [facility] [id number] [facility] 00:00:00 00:00:00 2021-03-22 2021-03-22 Outpatient REINA [facility] [id number] 00:[facility]00 00:00:00 [facility] 2021-03-17 2021-03-17 Outpatient REINA [facility] [id number] 00:00[facility]00 00:00:00 [facility] 2021-03-17 2021-03-17 Outpatient EL [facility]SL [facility] [id number] [facility] 00:00:00 00:00:00 2021-03-11 2021-03-11 Outpatient EL [facility] [id number] [facility] 00:00:00 00:00:00 2021-02-17 2021-02-17 Telephone Reina [facility] [id number] 00:[facility]00 00:00:00 [facility] 2021-02-10 2021-02-10 Procedure Reina [facility] [id number] 13:12:47 14:02:58 visit [facility] 2021-01-27 2021-01-27 Outpatient REINA [facility] [id number] 00:00[facility]00 00:00:00 [facility] 2021-01-27 2021-01-27 Orders Reina, [facility] [id number] 00:[facility]00 00:00:00 Only [facility] 2021-01-13 2021-01-13 Office Reina, [facility] [id number] 08:59:50 10:28:11 Visit [facility] 2020-12-07 2020-12-07 Office Reina, [facility] [id number] 09:28:24 11:43:01 Visit [facility] 2020-12-02 2020-12-02 Telephone Reina, [facility] [id number] 00:00[facility]00 00:00:00 [facility] 2020-11-04 2020-11-04 [id number] 08:50:13 10:38:54 Visit [facility] 2020-10-28 2020-10-28 Outpatient EL SLSL [facility] [id number] [facility] 00:00:00 00:00:00 2020-10-22 2020-10-27 Hospital YulietLyndseyManuel [facility] [id number] [facility] 20:30:00 17:53:00 Encounter Pedro Farris [facility] 2020-10-25 2020-10-25 Anesthesia Cuauhtemoc Dixon [facility] [id number] [facility] 17:37:00 18:41:00 Event Emiil Oliveira [facility] 2020-10-25 2020-10-25 Surgery Reina, [facility] [id number] 13:30:00 14:45:00 [facility] 2020-10-23 2020-10-23 Travel [facility] [id number] [facility] 00:[facility]00 00:00:00 [facility] 2020-10-22 2020-10-22 Hospital [facility] [id number] 11:47:21 20:29:[address] [facility] 2020-10-22 2020-10-22 Emergency ER [facility] Emergency [id number] [facility] 20:14:00 20:14:00 2020-10-22 2020-10-22 Outpatient EL [facility] [id number] [facility] 00:00:00 00:00:00 2020-10-19 2020-10-19 Travel [facility] [id number] [facility] 00:[facility] 00:00:00 [facility] 2020-10-19 2020-10-19 [facility] [id number] 00:[facility]00 00:00:00 [facility] 2020-10-06 2020-10-06 [facility] [id number] 00:[facility]00 00:00:00 [facility] 2020-09-30 2020-09-30 [facility] [id number] 13:08:05 14:49:10 Visit [facility] 2020-09-21 2020-09-21 [facility] [id number] 12:18:35 23:59:00 Encounter [facility] 2020-09-21 2020-09-21 [facility] [id number] [facility] 00:00:00 00:00:00 2020-09-20 2020-09-20 Outpatient EL [facility] [id number] [facility] 00:00:00 00:00:00 2020-09-16 2020-09-16 Outside [facility] [id number] 00:00:00 00:00:00 Orders [facility] 2020-09-13 2020-09-13 [facility] [id number] 15:09:40 17:08:47 Visit [facility] 2020-08-27 2020-09-02 Hospital Pedro Becerra [facility] [id number] 22:17:00 14:43:[address] [facility] 2020-08-31 2020-08-31 Anesthesia Cuauhtemoc Dixon [facility] [id number] [facility] 11:42:00 13:11:00 Event Carroll Burton [facility] 2020-08-31 2020-08-31 Surgery [facility] [id number] 11:00:00 12:15:00 [facility] 2020-08-28 2020-08-28 Orders [facility] [id number] 00:00:00 00:00:00 Only [facility] 2020-08-27 2020-08-27 Travel [facility] [id number] [facility] 00:[facility]:00 00:00:00 [facility] 2020-08-26 2020-08-26 Office Kayden 1.2.840.0 [id number] Methodi 14:27:45 16:08:33 Visit Jose Rodgers [id number] 3.430.2.7 Hospit a .3.004280 l .8 2020-08-26 2020-08-26 Travel 1.2.840.1 [id number] [id number] Methodi 00:00:00 00:00:[address] 3[address]430.2.7 0.2.7.3.698 Ho spita .3.119900 084.8 l .8 2020-08-02 2020-08-02 Travel 1.2.840.1 1.2.613.002 [id number] Methodi 00:00:00 00:00:[address] 3.430.2.7 0.2.7.3.698 isaac .3.246757 084.8 l .8 2020-07-30 2020-07-30 [facility], 1.2.840.0 [id number] Methodi 00:00:00 00:00:00 Jose Rodgers [id number] 3.430.2.7 Hospit a .3.805038 l .8 2020-07-29 2020-07-29 [facility] 1.2.840.1 [id number] Methodi 05:10:00 11:27:00 Encounter Jose Rodgers [id number] 3.430.2.7 Hospit a .3.055430 l .8 2020-07-29 2020-07-29 [facility], 1.2.840.1 [id number] Methodi 07:30:00 09:25:00 Jose Rodgers 55414.1.[address] 3.430.2.7 Hospit a .3.037554 l .8 2020-07-29 2020-07-29 Anesthesia Saud Villatoro 1.2.840.1 [id number] Methodi 07:40:00 09:17:00 Event Rose Garcia 56231.1.[address] 3.430.2.7 Hospit a .3.158976 l .8 2020-07-29 2020-07-29 [facility] Damaris, 1.2.840.1 [id number] 21 [id number] Methodi 00:00:00 00:00:00 Only Derrick Jeong 79652.1.[address] 3.430.2.7 Hospit a .3.775835 l .8 2020-07-29 2020-07-29 Travel 1.2.840.1 1.2.191.228 3727 [id number] Methodi 00:00:00 00:00:[address] 3.430.2.7 0.2.7.3.698 Ho spita .3.904679 084.8 l .8 2020-07-27 2020-07-27 Pre-Admiss Kayden, 1.2.840.1 [id number] Methodi 14:35:19 15:35:19 ion Jose Rodgers 57125.1.[address] Testing 3.430.2.7 Hospit a .3.839731 l .8 2020-07-27 2020-07-27 Travel 1.2.840.1 1.2.116.066 7764 126589 Methodi 00:00:00 00:00:[address] 3.430.2.7 0.2.7.3.698 Ho spita .3.395371 084.8 l .8 2020-07-23 2020-07-23 Telephone Kayden, 1.2.840.8 [id number] Methodi 00:00:00 00:00:00 Jose Rodgers 94030.1.[address] 3.430.2.7 Hospit a .3.229797 l .8 2020-07-23 2020-07-23 Travel 1.2.840.1 1.2.368.402 6714 [id number] Methodi 00:00:00 00:00:[address] 3.430.2.7 0.2.7.3.698 Ho spita .3.299031 084.8 l .8 2020-07-22 2020-07-22 Office Keen, 1.2.840.0 [id number] 21 [id number] Methodi 14:38:20 15:37:56 Visit Jose Rodgers 53481.1.[address] 3.430.2.7 Hospit a .3.580990 l .8 2020-07-21 2020-07-21 Travel 1.2.840.1 1.2.685.866 3432 [id number] Methodi 00:00:00 00:00:00 01309.1.1 350.1.13.43 489 3.430.2.7 0.2.7.3.698 spita .3.686670 084.8 l .8 2020-02-26 2020-02-27 [facility] [id number] 8470 [facility] 10:18:16 10:14:49 Visit [facility] 2020-02-26 2020-02-[address] [facility] [id number] [facility] 00:00:00 00:00:00 BIN 2020-02-03 2020-02-03 [facility] [id number] 5775 [facility] 00:00:00 00:00:00 BIN 2020-01-30 2020-01-30 Outpatient [facility] [id number] [facility] 00:00:00 00:00:00 Results Test Description Test Time Test Comments Results Result [facility] e Comments CT, CHEST, WITH 2021-05-02 Unlisted Reason CONTRAST 15:08:00 for Exam - Click Yes and [facility] Enter Reason [facility] Below->No CENTERName: Robbie LONDON : 1945 Sex: [...] Click Yes and [facility] Enter Reason [facility] Below->[facility] this procedure C : require [...] with areas of fibrosis. Signed: Milo Hampton [facility] Verified Date/Time: 05/02/2021 15:08:26 UE EXAM 2021-03-29 Surgical Pathology 15:37:48 Report Case: [id number] Authorizing Provider: Sebas Huang, Collected: 03/28/2021 09:09 AM Ordering Location: [facility] PERIOPERATIVE Received: 03/28/2021 10:51 AM SERVICES Pathologist: [...] FOR EVALUATION Signing Pathologist Direct Phone Line: [phone] ally signed by Ariana Victor MD on 03/29/2021 at 3:37 [id number] [id number] tumor, bladder tumorA.bladder tumor, right ureteral orifice; [...] entirely submitted into B1. MG/pl A-B Performed [facility], Department of Pathology, [address] [place] [address], Ecqhfi [facility], Department of Pathology, [address] [place] [address], [facility], [facility] of [facility]ology, [address] [place], [place] [address], POTASSIUM 2021-03-28 07:31:01 Test Item Value Reference Range Interpretation Comme nts POTASSIUM (BEAKER) (test code = 379) 5.9 meq/L 3.6-5.5 H Battery Checker ID - DSENSONOperator ID - DSENSONOperator ID - DSENSONOperator ID - DSENSONURINE [id number] 08:30:07 Test Item Value Reference Range Interpretation Comments CULTURE (BEAKER) (test code = 1095) No growth SARS-COV2/RT-PCR ([facility])2021-03-25 04:37:04 Test Item Value Reference Range Interpretation Comments SARS-COV2/RT-PCR (test code = Negative Negative 9859526) Negative result for this test determines that [...] Healthcare Providers:https://www.molecular.goddard/burak/RT SARS-CoV-2 HCP Fact Sheet 51- 834304.pdfFact Sheet for Healthcare Patients:https://www.molecular.goddard/burak/RT SARS-CoV-2 Patient Fact Sheet EN 51-249796G3.pdfBASIC METABOLIC [id number] 13:21:06 Test Item Value Reference Range Interpretation [...] S 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 Battery Checker ID - DSENSONOperator ID - DSENSONOperator ID - DSENSONOperator ID - DSENSONOperator ID - DSENSONOperator ID - DSENSONOperator ID - DSENSONOperator ID - DSENSONOperator ID - DSENSONOperator ID - DSENSONOperator ID - DSENSONOperator ID - DSENSONOperator ID - DSENSONCBC W/PLT COUNT & AUTO [id number] 13:08:14 Test Item Value Reference Range Interpretation [...] PERCENT (BEAKER) (test code = 2801) URINE [id number] 11:41:14 Test Item Value Reference Range Interpretation Comments CULTURE (BEAKER) (test <10,000 col/mL skin code = 1095) ramírez RAD, CHEST, 2 [id number] 13:50:00Reason for exam:->pre opShould this be performed at the bedside?->No [facility] : 1945 Sex: [...] MDReport Verified Date/Time: 03/11/2021 13:50:52 [facility] BASI METABOLIC [id number] 12:05:00 Test Item Value Reference Range Interpretation [...] S 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 Battery Checker ID - DSENSONOperator ID - DSENSONOperator ID - DSENSONOperator ID - DSENSONOperator ID - DSENSONOperator ID - DSENSONOperator ID - DSENSONOperator ID - DSENSONOperator ID - DSENSONOperator ID - DSENSONOperator ID - DSENSONOperator ID - DSENSONOperator ID - DSENSONPROTHROMBIN TIME/[id number] 11:43:47 Test Item Value Reference Range Interpretation Comments PROTIME (BEAKER) 11.6 seconds 9.3-12.0 Final Infor mation (test code = 759) (Auto Outp ut) INR (BEAKER) (test 1.05 See_Comment Final Inf ormation code = 370) (Auto Output) [Automated mess age] The system [employer] generated this result transmitted ref erence range: [...] (BEAKER) (test code = 2801) URINE CULTURE, [id number] 04:06:00 Test Item Value Reference Range Interpretation Comments Urine Culture, SEE NOTE CULTURE, UR INE, Routine (test ROUTINE In microsoft solutions architect code = 8979076) Number: [id number] Test Status: Final Specimen Source: URINE Specimen [...] ANSWER AT DR OFFICE TO VERIFY TEST 449704 [facility]M W/RFLX CULTURE, [id number] 22:06:00 Test Item Value Reference Range Interpretation Comments Specific Jamison, UA 1.014 1.005-1.03 (test code = 2965-2) pH, UA (test code = >=9.0 5.0-7.5 A 5803-2) Color, UA (test code Irvine Yellow = 9796-4) Appearance (test code Cloudy Clear A = 0803541) WBC Esterase (test 1+ Negative A code = 4134158) Protein, UA (test 3+ Negative/T A code = 41064-1) Glucose, Urine (test Trace Negative A code = 92620-8) Ketones, UA (test Negative Negative code = 2514-8) Blood, UA (test code 3+ Negative A = 97225-9) Bilirubin, UA (test Negative Negative code = 5770-3) Urobilinogen,Semi-Qn 0.2 mg/dL 0.2-1 (test code = 9625382) Nitrite, UA (test Negative Negative code = 01792-4) Microscopic See below: Microscopic was Examination (test indicated and was code = 0749081) performed. Urinalysis Reflex Comment This speci men has (test code = 9311032) reflex ed to a Urine Culture. ТАТЬЯНА (test code = ТАТЬЯНА) Performed at: [facility] [id number] Director: Calderon Silver MD, Phone: [phone] Lab Interpretation Abnormal (test code = 86893-8) [facility] CenterMICROSCOPIC [id number] 22:06:00 Test Item Value Reference Range Interpretation [...] ТАТЬЯНА (test code = ТАТЬЯНА) Performed at: [facility] [place], [place] [id number] Director: Calderon Silver MD, Phone: [phone] Lab Interpretation Abnormal (test code = 88884-5) [facility] CenterPrepare Leuko-Red [id number] 23:54:00 Test Item Value Reference Range Interpretation Comments CROSSMATCH (test code = 2264) COMPATIBLE Unit ABO (test code = O Pos 9603861) UNIT NUMBER (test code = [id number] 934-0) Status (test code = 7287627) [place]_TIMEINCHART Blood Bank Product (test code RED BLOOD CELLS = 2263) PRODUCT CODE (test code = W4288W24 933-2) [facility] CenterTissue [id number] 10:04:00 Test Item Value Reference Range Interpretation Comments Case Report (test code Surgical Pathology = 104) Report Case: [id number] Authorizing Provider: Sebas Huang, Collected: 10/25/2020 06:39 PM Ordering Location: [address] Med/Surg Received: 10/26/2020 07:45 AM Pathologist: Ariana Victor MD Specimens: A) - Bladder Tumor, Bladder clots and right ureteral tumor B) - Bladder Biopsy, Left Wall, left bladder wall C) - Bladder Biopsy, Wall, posterior bladder wall DIAGNOSIS (test code = f5fmaLUdXYDpt2zqDIJzzM 3220) FuZzEwMzNcZnRuYmpcdWMx IHtccnRmMVxlcGljOTIwMl zkfcHkGHUyfHDgR3Wbizvf VEurDA2tLN8deZnjsTRohD WoPLRzNxYuj8yrx027iSBa x1wcWRBKvzoraFh0uVosL7 6yc0F7UxvzA32oeTUxUCnc bGFpblxmczIwIEEuIEJMQU AGGHGyI5yOCYNuYZ5ASPCU D0cGCKPCQRNYFdWWTVUVBK 6NCKHHNW5AK8k2PJAelkOq ZCBsLDbGJ5zkW3CTKIXsPE UNCLdWHNyBKSPCOIDJGX2Y YGYxQB7fSAXBQNSMB3YFEM 4QMC8BCLnBGN2SUjjQH2Iq ME9ZD0FRF6eXNBDULAODFj FOVUxBVElPTiBUSVNTVUUg Kq0ERIZVII3MPDJoueWgJF TzKNGAEW6ODVmTBxQBHJIf BH6GJmDOWSGQTVOCTFDBVK 1JTkEgUFJPUFJJQVxwYXIg ICAgLSBOTyBERUZJTklUSV QHQJ3DR3XAFBJORCAuELNZ MOFAQYNGIjQLGgZCPG6TJB HIFpWRNgVEGLJRTI5WBCIf zcerJSLlMv7nVRJRLTBAZX NZTHHRJTfBFThxCIPRQ9MW ATyjcQLfIDGnOV5qNBECXL aYZExINWZFMWEGR1YyJF6T U9WAMUAKODUCSeJPYUxTE1 8PAxEKJIVdzvBiFYCwRY3R RA7CC8NJHBWDXMNoEWZTPA RKNEJUWkFOBsYROZ2UBIME VgIKAnBTMRKFAO1CLTMjdJ XkBJKqvkICZlCOF3FVSDYJ I3ReCgnFCKZPGvLUFMhFDB EHBT1WM3n9WSYuscXdGVLa CCJLR0WSVWeJXXlwBRAZM5 EGZLZDBOxQOItEEUYMK4Tm ESNONVjJUV0GSUMfwOKlGU MvMC2gRMQBT5DYPCNWYwFN Po5LFnqWXUvUYYHWHLCIJf VtvMLtELZpqzTHOd1ksDkw DLJ3l9xznYPuMVXkjJDoMR AwMFxhbnNpXGRlZmxhbmcx FHBjPAY3weYwQQSkKCmrSQ VmPLreDz4xpCQgsYwbZzXu RCKor6pjfoXMnchcgSh1e0 rhJLKbIsS7qNSeAXeyV4tp zvUrkEYkHZLfMJt5lL25PR GgbI6wjYEvUEfgdwJvBtG8 GTqmZJOvUuB0KNGhjMCxLR AwK0zgHXIgKZesJZJrQCuf hKQuDQC5gJhmi5F1mTLmiJ CypKfqEjStGtIvKlRQu2Ol LWb9gBkfU7OvIOMmOdR7rS QgUGFyYWdyYXBoIEZvbnQ7 sX99YKnvuyK4qRQqq2Ixu1 2nx298bJ8zoKZxRJD5AJQx CAEfvCUfJAKdVHD9HNSzrQ MgU8efSVMiGP3rlormFEbn VIhvODPivLF1BHSnfVXeX2 JtOBFqVOtfYVZqopd1WzCt Lj9npLSvvBlpFJdfx1lhj9 dgpVUnQui0OVOyVoDpXdwa QVson8Pfr5roMJUhjb6xNK F8nDPkuKcsx0X5iMPdOKOj yJRfCQGcMT0vtQEkENEslL 5ucmxjXHBnYnJkcmhlYWRc hZtaquAcJr7noVboXBG6MP xhF1tzmW5bBcS4KPyrX1oe nJ2cDPj9MFjpNUFfhPE4fh R0SLYzvXGrR8SdaY9gIWJq WP1vcwr9x7xfELB4SWeyTQ LcVwH7ejC3XGHceURcSPHw iZjjWCnic790FBU0EzZgLX Rix2ZaR6DlkHjaI65jzWhf F56mUUXavHhtvH9dgKcpgV 3kPkPqQuTdWFahvLsqRK9j WUDtZ6huyEIlDMWpQDHjE7 qkRgRmhR9hvUzkKLegvvUm KUMrKyf9LBAppYTmNCQfIs w9DBZaPEIeG19ybwzgKWF1 nC6yo4ory4EvSNbtQKO4CK Aje64kEJdngsR4ODdyTx04 IQyuQeU5UXsiZIB1kI== CPT Code(s) (test code q4oxoYBgVBOvpLJ9ZkZvOM = 3357) Nok7huk7MwlNAxoXNeDFdr nKIgdhSupt79eSJ4xR24HX 4iRRZyXcB1DEPtfpY4Rhs3 TFApIFXagFKdE834w1pje1 tutiXncAW4kDzfKVHvSNPm YWluXGZzMjAgODgzMDUgeD NccGFyfQ== CLINICAL HISTORY (test u1dhsQDkOPHcaDE1OxJjZG code = 3356) Zbq9gjo4ChdLMyeLFjIIix qGWulwAquu32bHK8gS34LT 3sSQKvWjL1VRRdcbN5Abo0 HGQlEJJbmLYtU177p8bky1 fyytFmpMD4xCjpSAMkPPPf FAwrZPLzFpDhMMOgZYL0fu arKOLmh0CkL2ffhEJiHWG8 tDYwUBIfIVQxsqMuJCE2kX 0pUDLhfk2= SPECIMEN SOURCE (test y7kmvYRxPHXwbEH4IuCxLY code = 3377) Ole4dqh2CsvUFyoAJwLAey vRDnxvLnxu37jDT0mW78EF 6oYMLoHcJ1GXAsniD1Tnj3 MHJwCMCpbOCfD621u2psk2 ourrRjgUU6vEqhLRSkFBBy KLjnOJPcOqTpPZ2sJpmxDG GgibDmfH65ytMcgiVrxecu aHQgdXJldGVyYWwgdHVtb3 B0ITUdKXhsMxIaGzlfYBFa evI4JRvaJfJOCiJVq8Y4NI Pch0PlYazsRVFhiqJ0ZGzt XHBhcn0= GROSS DESCRIPTION (test z2twkOLiHYUxjDN6MeTvTM code = 3366) Xzv8twh0JhiNEfqKJuMGup jGRbjqNxyo53rVY9rN84GJ 9cHAVlDjH3JXCevfR8Emu4 EENeECGcxRAgE544l3yba2 fztiUxyDT5vVupBIMoAZPr AZuuVGIlGaNlJ2CrD9tlVR 4gQSBpcyByZWNlaXZlZCBp ijRfnKyoaZv1IWDrjuFzuO TnWTlxZII4xKWwSIVhRAYm XVWwMT54W8BezcRxJUhraZ VkaWNhbCByZWNvcmQgbnVt ImAwPMIdYEAnNMJfK71hsH VkIGFzICJibGFkZGVyIHR1 sZ3zOlUeedCtZ23nv8fxtV Hkm1OoiVMsfGcoyLUulwRu SSSlr6noXVYom9G3AAWnme EynTUicFEoiKVvi9EudW4d UPakDPY3YXAoSWN5HGMnBP VxgU5vBNpgXCEyKMSpcAKz UZhzTXRpvHHqs0CkZQXnIJ TqcSgsUP20kVlal7VtIscy c4YpL5ucwG9iSv9aCYoymX cto4ElXRUfCCkbUY55vpSq cmUgaWRlbnRpZmllZCBtZW OufDBodkteHU16BOkyQL1e SNxnAI00QXMqVOzfATFsV3 DmB5O4IC5gDYxfCNCij3O4 ZSBmcmFnbWVudHMgYXJlIG KtzXvwJMa4ZGP5Cf5duIMh ZCBpbnRvIEExIHRvIEEyIG FuZCByZXByZXNlbnRhdGl2 OZIwNPN2lC5udxTxCbR5nN LaLwybd5WwV8xjeKQmiyLz i8OlxRe6aQVzDIxqnT0bSU MuICBccGFyXHBhciBTcGVj bD6ohsXJDLaaRQMbG2Rxdc VaHSxwOGZcdQW3jQFaYXAy ZCBsYWJlbGVkIHdpdGggdG skPBDhpEsjugEypnGoBQ9t XGGbCRVaA4VkLLSaA47mBC QnvJ5yJWNzVB7zRUAfx0vb lzP2KUNyCZHfQcJiOPLnAM IjAxpalKE1DIwwMmEry3Lr rWNpGC1oCGYftwNbi5VhUH 7bWNYreQykbj42ZD1ovCly w7SxLBOfQTxxWJ05cfK7vS V2UMrsIAMnNWCapGGvdqKl usEkvHGdeOKdrQ4dooPzj0 6gPOAfPYZ8lGXhpFGyLwOc F53dtzHqdGCiJD99cWJthP hqs0TgkDy7iSZrJDfqqQ9y QjEuIFxwYXJccGFyIFNwZW NpbWVuIEMgaXMgcmVjZWl2 YCGxaL9kAot8POIpmpPzKR 4dNIeqNrFiAVXlk2b2pFU9 fPToiZQ3wSTpkJneBB6yhF MxXH3tABgoGQrodoMmw1Iu FQ39hPGzalHmemPkJTDmqK duYXRlZCBhcyAiYmxhZGRl ecPfsU9tp9qag1VqoHMdBS 4lMBQdlxInq5RqNQ9gROKl jIdoei86ZS5fyFkaa8YxJU SnANdjWL56OQUkMDJgaUGj XY87GYOsMJgfCTvfJQW9QD T0CAZpwKQzz7vvvh6dXVbo UBClb3P6LNPjahVpnELugD BpcyBlbnRpcmVseSBzdWJt nOU2WBQjdI64gcAVLM0dGY BQKe4pyUNklJHfvB== MICROSCOPIC DESCRIPTION t2ehtBUhUALjzGA0IuQnZS (test code = 3371) Rrf5gpw2NdlUIuvJBwRTtl yLZrhcRtal99qXV8mM72KL 6mUBRiHqN3ZYNmcrH3Nvl0 OZEmEHNwpIXqD158e3cvq6 emeoPdnWD7cXxkIFGjASWy UMgvTIUoJaYeKC4ELnVRKJ Eid8EjCRXiXGLlkj8= Gross assessment was [facility] performed at ([facility], Department = 2777) of Pathology, [address] [place] [address], Technical component was [facility] performed at ([facility], = 2778) Department of Pathology, [address] [place] [address], Professional component [facility] was performed at ([facility], Department code = 2779) of Pathology, [address] [place] [address], [facility] [id number] 10:04:00Surgical Pathology Report Case: [id number] Authorizing Provider: Sebas Huang, Collected: 10/25/2020 06:39 PM [facility]urg Received: 10/26/2020 07:45 AM Pathologist: [...] IS PRESENTMG/pl Signing Pathologist Direct Phone Line: [phone] signed by Ariana Victor MD on 10/27/2020 at 10:04 [id number] unspecified type, ureteral tumorA. Bladder clots and [...] entirely submitted into A1 to A2 and artist's representative sections of the blood clot are [...] entirely submitted into C1. MG/pl A-C: Performed [facility], Department of Pathology, [address] [place] [address], Hqaqat [facility], Department of Pathology, [address] [place] [address], [facility] of [facility], [address] [place] [address], [facility]abolic [id number] 05:29:00 Test Item Value Reference Range Interpretation Comments Sodium (test code = 139 meq/L 028-631 2889-2) Potassium (test code = 5.1 meq/L 3.6-5.5 2823-3) Chloride (test code = 102 meq/L 98-106 2074-0) CO2 (test code = 26 meq/L 2027-) BUN (test code = 32 mg/dL 10-26 H 3094-0) Creatinine (test code 9.44 mg/dL 0.5-1.2 H = 2160-0) Glucose (test code = 107 mg/dL 70-110 2345-7) Calcium (test code = 8.8 mg/dL 8.5-10.5 43340-5) EGFR (test code = 5 mL/min/1.73 [place] [address]-8) NOT ACCURATE CREATININE CLEARANCE IN PREDICTING GLOMERULAR FILTRATION RATE . ESTIMATED GFR I S NOT APPLICABLE FOR DIALYSIS PATIENTS. ТАТЬЯНА (test code = ТАТЬЯНА) Battery Checker ID - [id number] ID - [id number] ID - [id number] ID - gmir65Wsssxmvi ID - cxgx53Fdfkgqzt ID - hwsa66Ewuzbbsg ID - fene08Uqxswtjn ID - wzsc89Aoswvdaa ID - cmns70Kzlrvdas ID - krfk21Otpzhzow ID - ychg97Xynzqylv ID - kdcm87Ylitnvpz ID - [id number] Lab Interpretation Abnormal (test code = 98770-6) [facility] METABOLIC [id number] 05:29:00 Test Item Value Reference Range Interpretation [...] S 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 Battery Checker ID - [id number] ID - [id number] ID - cimz21Oyqcyryv ID - obzn10Foyybqiq ID - ciwn12Fslakxrj ID - szzb59Ztewlkeu ID - ylgb79Srjbznux ID - enba58Wwzikiau ID - vrxq42Flvcupav ID - bjvw53Slgmnnnb ID - jrqm00Ktahprmh ID - bufx75Sujfjhnm ID - [id number] with platelet count + automated [id number] 05:09:00 Test Item Value Reference Range Interpretation Comments WBC (test code = 6690-2) 7.6 See_Comment [A utomated message] The system [employer] generated this result transmitted ref erence range: 4.0 - 10 .0 K/L. The refe rence range was not u sed to interpret this result as normal/abnor mal. RBC (test code = 789-8) 2.28 See_Comment L [Au tomated message] The system [employer] generated this result transmitted ref erence range: 4.20 - 5 .80 M/L. The refe rence range was not u sed to interpret this result as normal/abnor mal. MCHC (test code = 786-4) 31.3 See_Comment L [A utomated message] The system [employer] generated this result transmitted ref erence range: [...] See_Comment [Aut omated message] 777-3) The system [employer] generated this result transmitted ref erence range: 150 - 43 0 K/CU MM. The referen ce range was not u sed to interpret this result as normal/abnor mal. MPV (test code = 9.6 fL 6-11.5 25728-3) nRBC (test code = 413) 0 See_Comment [Aut omated message] The system [employer] generated this result transmitted ref erence range: [...] See_Comment [Aut omated message] 670) The system [employer] generated this result transmitted ref erence range: 1.80 - 8 .00 K/L. The refe rence range was not u sed to interpret this result as normal/abnor mal. # Lymphs (test code = 1.26 See_Comment L [Auto mated message] 414) The system [employer] generated this result transmitted ref erence range: 1.48 - 4 .50 K/L. The refe rence range was not u sed to interpret this result as normal/abnor mal. # Monos (test code = 0.84 See_Comment [Autom ated message] 415) The system [employer] generated this result transmitted ref erence range: 0.00 - 1 .30 K/L. The refe rence range was not u sed to interpret this result as normal/abnor mal. # Eos (test code = 416) 0.25 See_Comment [Au tomated message] The system [employer] generated this result transmitted ref erence range: 0.00 - 0 .50 K/L. The refe rence range was not u sed to interpret this result as normal/abnor mal. # Baso (test code = 417) 0.03 See_Comment [A utomated message] The system [employer] generated this result transmitted ref erence range: 0.00 - 0 .20 K/L. The refe rence range was not u sed to interpret this result as normal/abnor mal. Immature 1 % 0-0 H Granulocytes-Relative (test code = 2801) Lab Interpretation (test Abnormal code = 32260-7) [facility] W/PLT COUNT & AUTO [id number] 05:09:00 Test Item Value Reference Range Interpretation [...] (BEAKER) (test code = 2801) BASIC METABOLIC [id number] 05:21:00 Test Item Value Reference Range Interpretation [...] S 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 Battery Checker ID - LITOOperator ID - LITOOperator ID - LITOOperator ID - LITOOperator ID - LITOOperator ID - LITOOperator ID - LITOOperator ID - LITOOperator ID - LITOOperator ID - LITOOperator ID - LITOOperator ID - LITOOperator ID - LITOCBC W/PLT COUNT & AUTO [id number] 04:38:00 Test Item Value Reference Range Interpretation [...] (test code = 2801) Hepatitis B surface [id number] 17:58:00 Test Item Value Reference Range Interpretation Comments Hep B S Ab (test code <8.0 See_Comment [Auto mated = 17566-8) message] The system which generated this result transmit radha reference range : <8.0 mIU/mL. Th e reference range was not used to interpret this result as normal/abnormal . ТАТЬЯНА (test code = ТАТЬЯНА) Battery Checker ID - DB Lab Interpretation Normal (test code = 65909-3) [place] [facility] [id number] 17:58:00 Test Item Value Reference Range Interpretation Comments HEPATITIS B SURFACE ANTIBODY < mIU/mL <8.0 (BEAKER) (test code = 647) Battery Checker ID - [id number] 13:35:00 Test Item Value Reference Range Interpretation Comments Potassium (test code = 4.2 meq/L 3.6-5.5 2823-3) ТАТЬЯНА (test code = ТАТЬЯНА) Battery Checker ID - [id number] ID - [id number] ID - [id number] ID - [id number] Lab Interpretation (test Normal code = 93837-9) [place] [facility] 13:35:00 Test Item Value Reference Range Interpretation Comments POTASSIUM (BEAKER) (test code = 4.2 meq/L 3.6-5.5 379) Battery Checker ID - [id number] ID - [id number] ID - [id number] ID - [id number] BASIC METABOLIC [id number] 06:45:00 Test Item Value Reference Range Interpretation [...] S 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 Battery Checker ID - MITCHOperator ID - MITCHOperator ID - MITCHOperator ID - MITCHOperator ID - MITCHOperator ID - MITCHOperator ID - MITCHOperator ID - MITCHOperator ID - MITCHOperator ID - [id number] 06:44:00 Test Item Value Reference Range Interpretation Comments Phosphorus (test code = 5.9 mg/dL 2.5-4.5 H 2777-1) ТАТЬЯНА (test code = ТАТЬЯНА) Battery Checker ID - MITCHOperator ID - MITCHOperator ID - MITCHOperator ID - STEVE Lab Interpretation Abnormal (test code = 08089-6) [place] [facility] 06:44:00 Test Item Value Reference Range Interpretation Comments PHOSPHORUS (BEAKER) (test code = 5.9 mg/dL 2.5-4.5 H 604) Battery Checker ID - MITCHOperator ID - MITCHOperator ID - MITCHOperator ID - [id number] (Hemogram only)2020-10-25 06:33:00 Test Item Value Reference Range Interpretation Comments WBC (test code = 6690-2) 10.6 See_Comment H [A utomated message] The system [employer] generated this result transmitted ref erence range: 4.0 - 10 .0 K/L. The refe rence range was not u sed to interpret this result as normal/abnor mal. RBC (test code = 789-8) 2.39 See_Comment L [Au tomated message] The system [employer] generated this result transmitted ref erence range: 4.20 - 5 .80 M/L. The refe rence range was not u sed to interpret this result as normal/abnor mal. MCHC (test code = 786-4) 31.0 See_Comment L [A utomated message] The system [employer] generated this result transmitted ref erence range: [...] code = 285 See_Comment [Aut omated message] 277-3) The system [employer] generated this result transmitted ref erence range: 150 - 43 0 K/CU MM. The referen ce range was not u sed to interpret this result as normal/abnor mal. MPV (test code = 9.8 fL 6-11.5 79396-1) nRBC (test code = 413) 0 See_Comment [Aut omated message] The system [employer] generated this result transmitted ref erence range: 0 - 0 /1 00 WBC. The refere nce range was not u sed to interpret this result as normal/abnor mal. Lab Interpretation (test Abnormal code = 85743-8) [facility] [...] (test code = 413) Type and screen, [id number] 14:42:00 Test Item Value Reference Range Interpretation Comments ABO/RH AUTOMATED (BEAKER) (test O POSITIVE code = 2260) Ab Scrn (test code = 890-4) NEGATIVE [place] [facility] [id number] 08:07:00 Test Item Value Reference Interpretation Comments [...] 13) >100,000 col/mL skin floraHepatitis B surface [id number] 15:09:00 Test Item Value Reference Range Interpretation Comments HBsAg Screen (test code Nonreactive Nonreactive = 5195-3) ТАТЬЯНА (test code = ТАТЬЯНА) Battery Checker ID - [id number] Lab Interpretation (test Normal code = 59855-1) [place] [facility] CenterHEPATITIS [facility] SURFACE [id number] 15:09:00 Test Item Value Reference Range Interpretation Comments HEPATITIS B SURFACE ANTIGEN (2) Nonreactive Nonreactive (BEAKER) (test code = 2585) Battery Checker ID - [id number] METABOLIC ECDQX7271-09-50 05:03:00 Test Item Value Reference Range Interpretation [...] S 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 Battery Checker ID - [id number] ID - [id number] ID - [id number] ID - [id number] ID - [id number] ID - [id number] ID - [id number] ID - [id number] ID - [id number] ID - [id number] ID - [id number] ID - [id number] ID - [id number] W/PLT COUNT & AUTO [id number] 04:56:00 Test Item Value Reference Range Interpretation [...] Xpert (test code = Negative, See Xpress 59538-1) external report SARS-CoV-2/F yuliet/RSV test for linked [...] Fact Sh eet for Healthcare Prov iders: https://www.Xetal.com/ Documents/Xpert %20Xpress %77KUWZ-FjC-8-F yuliet-RSV/30 2-4508%20Rev.%2 0B%20HCP% 20Fact%20Sheet. pdf Fact Sheet for Healt hcare Patients: https://www.Xetal.com/ Documents/Xpert %20Xpress %92JQXW-UfQ-4-F yuliet-RSV/30 2-4507%20Rev.%2 0B%20Pati ent%20Fact%20Sh eet.pdf SARS-COV-2 SLSL Performed at:[facility] PERFORMING LAB Lula [id number] (test code = Shelton Nichols 82617-7) [place] [address] ph: [phone] [facility]-COV2/RT-PCR (HS & REF LABS)2020-10-23 00:12:00 Test Item Value Reference Range Interpretation Comments SARS-COV2/RT-PCR Negative Not Detected, Performanc e of the Xpert (test code = Negative, See Xpress 3100237) external report SARS-CoV-2/F yuliet/RSV test for linked [...] sooner.Fact She et for Healthcare Prov iders: https://www.Syncing.Net/ Documents/Xpert %20Xpress %83LSYM-FnW-6-F yuliet- 2-4508%20Rev.%2 0B%20HCP% 20Fact%20Sheet. pdfFact Sheet for Healt hcare Patients: https://www.Syncing.Net/ Documents/Xpert %20Xpress %82SUPK-XrE-5-F - 2-4507%20Rev.%2 0B%20Pati ent%20Fact%20Sh eet.pdf SARS-COV-2 SLSL Performed at:[facility] PERFORMING LAB [facility] (test code = Shelton Nichols 6718434) [facility] [address] ph: [phone] CT, [id number] 22:34:00Unlisted Reason for Exam - Click Yes and Enter Reason Below->YesUnlisted Reason for Exam->known R ureteral tumor and r hydro, worsening R side pain, pt ESRD will dialyzeWill this procedure require oral contrast?->No [facility] 1945 [...] lesions too small to characterize. Signed: Rodger PageMDReport Verified Date/Time: 10/22/2020 22:34:38 CT abdomen pelvis with IV vabhlfqw2601-48-37 22:34:00Interface, External Ris In - 10/22/2020 10:37 [...] Rodger Page MDReport Verified Date/Time: 10/22/2020 22:34:38 [facility] W/PLT COUNT & AUTO [id number] 21:18:00 Test Item Value Reference Range Interpretation [...] = 2801) CBC W/PLT COUNT & AUTO TVFVQTTQPFID3403-13-11 12:53:00 Test Item Value Reference Range Interpretation [...] 0-0 H PERCENT (BEAKER) (test code = 2809) BASIC METABOLIC [id number] 12:49:00 Test Item Value Reference Range Interpretation [...] S 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 Battery Checker ID - [id number] ID - gify64Ghghpyab ID - arjg11Itgkyzyj ID - ddjq30Oysdczye ID - sysk58Hfzxjiwo ID - omig75Dubhtwwv ID - crbn49Cbdejpwj ID - xcti29Oqyziesk ID - cjcs58Heswrfkq ID - shen51Nexttyqd ID - jkai77Eulhvyyy ID - wziy73Nhkcdojs ID - ugup34VF/tBZD4748-97-70 12:44:00 Test Item Value Reference Interpretation Comments [...] PTT (test code = 28.1 See_Comment Final 77459-0) Information (Auto Output) [Automated message] The system [...] valves. Lab Interpretation Normal (test code = 46548-5) [place] [facility] CenterPT/[id number] 12:44:00 Test Item Value Reference Range Interpretation Comments PROTIME (BEAKER) (test 11.0 seconds 9.3-12.0 Final Information code = 759) (Auto Output) INR (BEAKER) (test 0.99 See_Comment Final Inf ormation code = 370) (Auto Output) [Automated mess age] The system [employer] generated this result transmit radha reference range [...] 2.5-3.5 for patients with mechanical heart valves.CT, XZAXRZL8647-71-69 08:58:00Unlisted Reason for Exam - Click Yes and Enter Reason Below->NoWill this procedure require oral contrast?->No [facility] : 1945 Sex: [...] Juarez Verified Date/Time: 09/22/2020 08:58:10 Reading Location: [address] Consult Reading Room CT abdomen/pelvis without & with IV knurvwqg9780-50-87 08:58:00 Interface, External Ris In - 09/22/2020 [...] Juarez MDReport Verified Date/Time: 09/22/2020 08:58:10 ReadingLocation: [facility] B1 C013X [facility] Consult Reading [facility]MR, ABDOMEN, WITHOUT IDBCXAKZ9532-52-91 15:11:00ESRD patientUnlisted Reason for Exam - Click Yes and Enter Reason Below->NoDeos the patient have an implanted electronic device?->No [facility] : 1945 Sex: [...] Huizar Verified Date/Time: 09/02/2020 15:11:40 Reading Location: [facility] Diagnostic Imaging Reading Room - [place] [address] MR, PELVIS, WITHOUT [id number] 15:11:00ESRD patientUnlisted Reason for Exam - Click Yes and Enter Reason Below->NoDeos the patient have an implanted electronic device?->No [facility] : 1945 [...] postcholecystectomy biliary reservoir effect. Signed: Abe[facility] Verified Date/Time: 09/02/2020 15:11:40 Reading Location: [facility] Diagnostic Imaging Reading Room - [place] [address] MR pelvis without IV dncbihaf3391-44-65 15:11:00Interface, External Ris In - 09/02/2020 3:13 [...] Huizar Verified Date/Time: 09/02/2020 15:11:40 Reading Location: [facility] Diagnostic Imaging Reading Room - [facility] F1 1129 [facility]MR [facility] without IV rgeobvoc1616-19-04 15:11:00Interface, External Ris In - 09/02/2020 3:13 [...] Huizar Verified Date/Time: 09/02/2020 15:11:40 Reading Location: [facility] Diagnostic Imaging Reading Room [place] [address] [facility] CenterTISSUE [id number] 10:13:00Surgical Pathology Report Case: [id number] Authorizing Provider: Sebas Huang, Collected: 08/31/2020 12:53 PM OrderingLocation: [facility] 05B Med/Surg Received: 08/31/2020 01:41 PM Pathologist: Ariana Victor MD Specimen: Bladder Tumor BLADDER TUMOR, TRANSURETHRAL RESECTION OF BLADDER: - 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 The specimen is entirely submitted into A1-A6. MG/ew Performed [facility], Department of Pathology, [address] [place] [address], Scewmk [facility], Department of Pathology, [address] [place] [address], [facility]rTexas [facility], [facility] of Pathology, [address] [place] [address], PW, FLUORO, NON-SPECIFIC, UP TO 1 [id number] 12:50:00 Reason for exam:->Surgery [facility] : 1945 Sex: MFluoroscopic unit utilized for a procedure performed in the OR. No interpretation was requested. Refer to the operative report for findings. Refer to PACS for patient radiation dose information.FL fluoro non-specific up to 1 [id number] 12:50:00 Interface, External Ris In - 08/31/2020 12:55 PM CSTFluoroscopic unit utilized for a procedure performed in the OR. No interpretation was requested. Refer to the operative report for findings. Referto PACS for patient radiation dose information.[place] [facility]2D Echo W/Doppler(CW/PW/Color) 2020-08-31 08:09:56Ejection FractionSLEH ECHO HEARTLAB MKCKESSON CPACSInterface, External Ris In - 08/31/2020 8:10 AM CSTTransthoracic Echocardiography Report (TTE) Demographics Patient Name JANEL LONDON Date of Study 08/29/2020 Gender Male Visit Number [id number] Race Unknown Room Number B531 Number Date of 1945 Referring Physician Age 75 year(s) Nurse Consultant [place] Najera Interpreting Humberto Reed Jr. MD [...] Gradient: 3.29 mmHg Estimated PASP: 42.39 mmHgCHI [facility] Laguna BeachComprehensive metabolic [id number] 06:56:00 Test Item Value Reference Range Interpretation Comments Protein, Total (test 6.7 See_Comment [Autom ated code = 2885-2) message] The system which generated this result transmitted reference range : 6.0 - 8.5 gm/dL . The reference range was not used to interpr et this result as normal/abnormal . Albumin (test code = 3.2 g/dL 3.5-5 L 38048-4) Alkaline Phosphatase 57 U/L 30-115 (test code = 6768-6) Total Bilirubin 0.4 mg/dL 0.1-1.2 (test code = 1975-2) Sodium (test code = 138 meq/L 646-973 9751-2) Potassium (test code 3.9 meq/L 3.6-5.5 = 2823-3) Chloride (test code 99 meq/L 98-106 = 2075-0) CO2 (test code = 26 meq/L 20-29 2028-9) BUN (test code = 30 mg/dL 10-26 H 3094-0) Creatinine (test 7.85 mg/dL 0.5-1.2 H code = 2160-0) Glucose (test code = 94 mg/dL 70-110 2345-7) Calcium (test code = 8.7 mg/dL 8.5-10.5 66063-5) AST (test code = 49 U/L 5-40 H 1920-8) ALT (test code = 55 U/L 5-50 H 1742-6) EGFR (test code = 7 mL/min/1.73 [place] [address]-1) m NOT ACCURATE CREATININE CLEARANCE IN PREDICTING GLOMERULAR FILTRATION RATE . ESTIMATED GFR I S NOT APPLICABLE FOR DIALYSIS PATIENTS. ТАТЬЯНА (test code = Battery Checker ID - ТАТЬЯНА) LITOOperator ID - LITOOperator ID - LITOOperator ID - LITOOperator ID - LITOOperator ID - LITOOperator ID - LITOOperator ID - LITOOperator ID - LITOOperator ID - LITOOperator ID - LITOOperator ID - LITOOperator ID - LITOOperator ID - LITOOperator ID - LITOOperator ID - JUNITO Lab Interpretation Abnormal (test code = 58015-4) [place] [facility] CenterCOMPREHENSIVE METABOLIC [id number] 06:56:00 Test Item Value Reference Range Interpretation [...] S 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 Battery Checker ID - LITOOperator ID - LITOOperator ID - LITOOperator ID - LITOOperator ID - LITOOperator ID - LITOOperator ID - LITOOperator ID - LITOOperator ID - LITOOperator ID - LITOOperator ID - LITOOperator ID - LITOOperator ID - LITOOperator ID - LITOOperator ID - LITOOperator ID - OZGKMhoswicik1601-00-93 06:54:00 Test Item Value Reference Range Interpretation Comments Magnesium (test code = 2.1 mg/dL 1.5-3 13468-1) ТАТЬЯНА (test code = ТАТЬЯНА) Battery Checker ID - LITOOperator ID - LITOOperator ID - LITOOperator ID - JUNITO Lab Interpretation (test Normal code = 53171-0) [place] [facility] CenterMAGNESIUM2021-03-09 06:54:00 Test Item Value Reference Range Interpretation Comments MAGNESIUM (BEAKER) (test code = 2.1 mg/dL 1.5-3.0 627) Battery Checker ID - LITOOperator ID - LITOOperator ID - LITOOperator ID - LITOCBC W/PLT COUNT & AUTO [id number] 06:31:00 Test Item Value Reference Range Interpretation [...] PERCENT (BEAKER) (test code = 2801) Lipid uhlku0411-26-00 06:03:00 Test Item Value Reference Range Interpretation Comments Triglycerides (test 125 mg/dL code = 2571-8) Cholesterol (test code 92 mg/dL = 2093-3) HDL (test code = 27 mg/dL 2085-9) LDL Calculated (test 40 mg/dL code = 27161-1) ТАТЬЯНА (test code = ТАТЬЯНА) Triglyceride Reference Range: Low Risk <150 Borderline 150-199 High Risk 200-499 Very High Risk >=500 Cholesterol Reference Range: Low Risk <200 Borderline 200-239 High Risk >240 HDL Cholesterol Reference Range: Low Risk >=60 High Risk <40 LDL Cholesterol Reference Range: Optimal <100 Near Optimal 100-129 Borderline 130-159 High 160-189 Very High >=190 Battery Checker ID - [id number] ID - PHOH72Yxcznujo ID - SHNQ49Nxqwizbr ID - NYBE91Ggyovvqr ID - PPGW62Qanjobpk ID - ZRES04 [place] [facility] CenterLIPID [id number] 06:03:00 Test Item Value Reference Range Interpretation [...] Borderline 130-159 High 160-189 Very High >=190 Battery Checker ID - SYMF87Lninbutq ID - ZPCE03Qvwbpbqq ID - VSFM40Zpqqnqus ID - WDZA33Qpmjemnj ID - GLPG60Eygsdjkc ID - ZBDS22LVD W/PLT COUNT & AUTO [id number] 05:38:00 Test Item Value Reference Range Interpretation [...] H PERCENT (BEAKER) (test code = 2801) [id number] 19:47:00 Test Item Value Reference Range Interpretation Comments PSA (test code = 2857-1) 4.9 ng/mL 0-4 H ТАТЬЯНА (test code = ТАТЬЯНА) Battery Checker ID - [id number] Lab Interpretation (test Abnormal code = 47067-7) [place] [facility] CenterPSA2021-03-07 19:47:00 Test Item Value Reference Range Interpretation Comments PROSTATE SPECIFIC ANTIGEN (BEAKER) 4.9 ng/mL 0.0-4.0 H (test code = 844) Battery Checker ID - [id number]0 18:56:00 Test Item Value Reference Range Interpretation Comments Ferritin (test code = 4479.50 ng/mL 22-322 H 2276-4) ТАТЬЯАН (test code = ТАТЬЯНА) Battery Checker ID - [id number] ID - [id number] Lab Interpretation (test Abnormal code = 08964-3) [place] [facility] CenterFERRITIN2021-03-07 18:56:00 Test Item Value Reference Range Interpretation Comments FERRITIN (BEAKER) (test code = 4479.50 ng/mL 22.00-322.00 H 361) Battery Checker ID - [id number] ID - PTETZTY533Vcfbron C422092-52-58 18:33:00 Test Item Value Reference Range Interpretation Comments Vitamin B12 (test code = 919 pg/mL 211-911 H 2132-9) ТАТЬЯНА (test code = ТАТЬЯНА) Battery Checker ID - [id number] Lab Interpretation (test Abnormal code = 96273-5) [place] [facility] CenterVITAMIN [id number] 18:33:00 Test Item Value Reference Range Interpretation Comments VITAMIN B12 (BEAKER) (test code = 919 pg/mL 211-911 H 774) Battery Checker ID - [id number], tqto2399-91-00 18:25:00 Test Item Value Reference Range Interpretation Comments Free T4 (test code = 0.90 ng/dL 0.9-1.8 3024-7) ТАТЬЯНА (test code = ТАТЬЯНА) Battery Checker ID - [id number] Lab Interpretation (test Normal code = 83448-1) [place] [facility] CenterT4, [id number] 18:25:00 Test Item Value Reference Range Interpretation Comments FREE T4 (BEAKER) (test code = 655) 0.90 ng/dL 0.90-1.80 Battery Checker ID - FPHANIK242BIH0939-61-66 18:22:00 Test Item Value Reference Range Interpretation Comments TSH (test code = 5.480 See_Comment [Automated 27211-3) message] The system which generated this result transmit radha reference range : 0.350 - 5.500 uIU/mL. The reference range was not used to interpret this result as normal/abnormal . ТАТЬЯНА (test code = ТАТЬЯНА) Battery Checker ID - [id number] Lab Interpretation Normal (test code = 65274-2) [place] [facility] CenterTSH2021-03-07 18:22:00 Test Item Value Reference Range Interpretation Comments THYROID STIMULATING HORMONE 5.480 uIU/mL 0.350-5.500 (BEAKER) (test code = 772) Battery Checker ID - CMWRIXU511A/S, RENAL, TZSFOMCE8110-43-47 12:08:00Please include bladderReason for exam:->hematuria, history of polycystic kidney diseaseShould this be performed at the bedside?->Yes [facility] 1945 Sex: [...] Machado Verified Date/Time: 08/29/2020 12:08:20 Reading Location: [facility] B1 C013W ConsultReading Room US renal jtheaaew0367-12-00 12:08:00Interface, External Ris In - 08/29/2020 12:19 [...] CT for further evaluation. Signed: Oliver Riggins MDRarturoort Verified Date/Time: 08/29/2020 12:08:20 Reading Location: [facility] B1 C013W Consult Reading [facility] CenterHEPAT[facility]IS B SURFACE ANTIBODY 2020-08-29 11:42:00 Test Item Value Reference Range Interpretation Comments HEPATITIS B SURFACE ANTIBODY < mIU/mL <8.0 (BEAKER) (test code = 647) Battery Checker ID - FER MReticulocyte wezyz8282-37-04 11:03:00 Test Item Value Reference Range Interpretation Comments % Retic (test code = 63028-0) 1.8 % 0.4-2.9 Lab Interpretation (test code = Normal 52132-3) [place] [facility] CenterRETICULOCYTE [id number] 11:03:00 Test Item Value Reference Range Interpretation Comments RETICULOCYTE COUNT PCT (BEAKER) (test 1.8 % 0.4-2.9 code = 575) Troponin [id number] 05:52:00 Test Item Value Reference Range Interpretation Comments Troponin I (test code = 0.22 ng/mL 0-0.15 HH [address]286-5) ТАТЬЯНА (test code = ТАТЬЯНА) Troponin I [...] ZRES04 Lab Interpretation (test Abnormal code = 23597-2) [place] [facility] CenterTROPONIN U4014-69-40 05:52:00 Test Item Value Reference Range Interpretation [...] failure, acidosis, acute neurological disease, and persistent tachyarrhythmia.Battery Checker ID - [id number] METABOLIC ZSHPF8497-73-58 05:32:00 Test Item Value Reference Range Interpretation [...] S 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 Battery Checker ID - YSXU97Wpdbgwbw ID - EVIK09Bskywufh ID - WLIW69Kbkzkvfm ID - METR64Akpddoxz ID - MQAA17Xgkoivbu ID - EBXH65Pyfgzdwr ID - KOFY13Kymsztbp ID - CTTV04Ggicbkqh ID - EOWO97Hvwibdvg ID - ZIJK68Ntphcilz ID - XBYH36Nnlbvywa ID - RUYG53Hfrnomak ID - BOBB34PZ, BRAIN, WITHOUT MJSNSATP5343-66-73 05:08:00Unlisted Reason for Exam - Click Yes and Enter Reason Below->YesUnlisted Reason for Exam->amsCH[facility] : 1945 Sex: MFINAL REPORT EXAM: CT, [...] Yessenia Perez MDReport Verified Date/Time: 08/29/2020 05:08:18 OGEET brain without IV tijcdwmz5965-55-12 05:08:00Interface, External Ris In - 08/29/2020 5:11 [...] Yessenia Perez MDReport Verified Date/Time: 08/29/2020 05:08:18 [facility] W/PLT COUNT & AUTO EVIATBCAVVCX7153-00-48 04:50:00 Test Item Value Reference Range Interpretation [...] (BEAKER) (test code = 2801) Occult blood, nkxfl4614-62-88 03:55:00 Test Item Value Reference Range Interpretation Comments Occult blood (test code = 2335-8) Negative Negative Lab Interpretation (test code = Normal 70395-0) [place] [facility] CenterOCCULT BLOOD, KYYRQ2886-58-20 03:55:00 Test Item Value Reference Range Interpretation Comments FECAL OCCULT BLOOD (BEAKER) (test Negative Negative code = 618) HEPATITIS B SURFACE PMHSFUN0074-87-54 17:43:00 Test Item Value Reference Range Interpretation Comments HEPATITIS B SURFACE ANTIGEN (2) Nonreactive Nonreactive (BEAKER) (test code = 2585) Battery Checker ID - CINTHIA N9072-19-25 16:41:00 Test Item Value Reference Range Interpretation [...] failure, acidosis, acute neurological disease, and persistent tachyarrhythmia.Battery Checker ID - HARMAN H0220-05-63 09:49:00 Test Item Value Reference Range Interpretation [...] failure, acidosis, acute neurological disease, and persistent tachyarrhythmia.Battery Checker ID - RAHMABASIC METABOLIC PANEL 2020-08-28 07:01:00 [...] S 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 Battery Checker ID - UYJL38Kxpspzae ID - LTFW46Soacbvkl ID - HKZT17Srywgbrs ID - ELOB22Swwsiwvf ID - LEHF45Pxcylulo ID - ZTFD22Qbszkhmo ID - FUAH04Xndyhuei ID - BBFO91Vxqztvak ID - OFFV46Xfgpymue ID - OKMV33Eyzaakyu ID - QLVM91Ipgoklfo ID - OFUC24Zhnisghg ID - SCSN87GEB W/PLT COUNT & AUTO KHUOIGOSXJFF2671-12-77 06:29:00 Test Item Value Reference Range Interpretation [...] PERCENT (BEAKER) (test code = 2801) Prothrombin time/YFM0048-68-50 02:15:00 Test Item Value Reference Interpretation Comments [...] valves. Lab Interpretation Abnormal (test code = 06105-5) [place] [facility] CenterPROTHROMBIN TIME/YEM8858-23-03 02:15:00 Test Item Value Reference Range Interpretation Comments PROTIME (BEAKER) 12.4 seconds 9.3-12.0 H Final Infor mation (test code = 759) (Auto Outp ut) INR (BEAKER) (test 1.12 See_Comment Final Inf ormation code = 370) (Auto Output) [Automated mess age] The system [facility] h generated this result transmitted ref erence range: <=5.90. The reference range was not used to int erpret this result as normal/abnormal . RECOMMENDED COUMADIN/WARFARIN INR THERAPY RANGESSTANDARD DOSE: 2.0 - 3.0 Includes: PROPHYLAXIS forvenous thrombosis, systemic embolization; TREATMENT for venous thrombosis and/or pulmonary embolus.HIGH RISK: Target INR is 2.5-3.5 for patients with mechanical heart valves.COMPREHENSIVE METABOLIC [id number] 02:11:00 Test Item Value Reference Range Interpretation [...] S 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 Battery Checker ID - YSKY01Hnmcphoa ID - TUEL38Qjqbdqkf ID - HONJ86Fqbjmuzy ID - MCXS78Myytnbos ID - ZHZA06Xinxuqhg ID - XHWJ92Nfqacufn ID - ZLOS66Yxwtxvvb ID - SHSH09Elpiebtf ID - XGSG41Oplocfjj ID - ZAYE46VODDY MNBDK1499-23-66 02:10:00 Test Item Value Reference Range Interpretation [...] Borderline 130-159 High 160-189 Very High >=190 Battery Checker ID - BDAB96Yfwyqnin ID - JRSS95Chersdaj ID - ZRES04 Urinalysis w/Microscopic + Reflex to Swirmww5088-90-40 02:09:00 Test Item Value Reference Range Interpretation Comments Color, UA (test code = Red 5778-6) Clarity, UA (test code Turbid = 5767-9) Specific Jamison, UA 1.020 1.001-1.035 (test code = 5811-5) pH, UA (test code = 8.5 5.0-8.0 H 5803-2) Protein, UA (test code >=300 mg/dL Negative A = 61695-1) Glucose, UA (test code 100 mg/dL Negative A = 365) Ketones, UA (test code 15 mg/dL Negative A = 2514-8) Bilirubin, UA (test Positive Negative A code = 49445-5) Blood, UA (test code = Large Negative A 47380-2) Nitrite, UA (test code Positive Negative A = 5802-4) Leukocytes, UA (test Large Negative A code = 5799-2) Urobilinogen, UA (test >=8.0 0.2-1 H code = 67577-0) Bacteria, UA (test code Moderate = 92799-3) RBC, UA (test code = >100 See_Comment [Autom ated 799-7) message] The sy stem which generated this result transmitted reference range : /HPF. The refer ence range was not u sed to interpret th is result as normal/abnormal . WBC, UA (test code = 10-20 See_Comment [Autom ated 41991-5) message] The sy stem which generated this result transmitted reference range : /HPF. The refer ence range was not u sed to interpret th is result as normal/abnormal . SQUAMOUS EPITHELIAL 5-10 See_Comment [Automa radha (test code = 49588-3) messag e] The system which generated this result transmitted reference range : /HPF. The refer ence range was not u sed to interpret th is result as normal/abnormal . Specimen Source (test code = 2795) Lab Interpretation Abnormal (test code = 64772-8) [place] [facility] CenterURINALYSIS W/ REFLEX URINE [id number] 02:09:00 Test Item Value Reference Range Interpretation [...] SOURCE(BEAKER) (test code = 2795) Hepatic function qcgrq3779-82-07 02:07:00 Test Item Value Reference Range Interpretation Comments Protein, Total (test 6.5 See_Comment [Autom ated code = 2885-2) message] The system which generated this result transmit radha reference range : 6.0 - 8.5 gm/dL . The reference range was not u sed to interpret th is result as normal/abnormal . Albumin (test code = 3.1 g/dL 3.5-5 L 97617-1) Total Bilirubin (test 0.5 mg/dL 0.1-1.2 code = 1975-2) Bilirubin, Direct 0.3 mg/dL 0-0.4 (test code = 1968-7) Alkaline Phosphatase 56 U/L 30-115 (test code = 6768-6) AST (test code = 35 U/L 5-40 1920-8) ALT (test code = 30 U/L 5-50 1742-6) ТАТЬЯНА (test code = ТАТЬЯНА) Battery Checker ID - AUVB85Prjomxws ID - KEUO78Ykxcfvpb ID - KPTE06Ttuyxtxe ID - PJGZ00Zgadlnnp ID - EHMI98Wnqipygq ID - PWAI39Zoqfebmj ID - ZRES04 Lab Interpretation Abnormal (test code = 12511-0) [place] [facility] CenterHEPATIC FUNCTION [id number] 02:07:00 Test Item Value Reference Range Interpretation [...] (test code = 30 U/L 5-50 347) Battery Checker ID - PIQP09Wpblkmyi ID - DVXO41Enlvolcp ID - OTUT23Focwpekp ID - HOSX76Azqexpww ID - MGBR14Odrbdkgw ID - XJFB10Wooadmru ID - WXCQ45Uumybeckws A1c 2020-08-28 01:48:00 Test Item Value Reference Range Interpretation Comments Hemoglobin A1C (test code 4.8 % 4.3-6.1 = 4548-4) ТАТЬЯНА (test code = ТАТЬЯНА) Battery Checker ID - [id number] Lab Interpretation (test Normal code = 89785-5) [facility] CenterHEMOGLOBIN [id number] 01:48:00 Test Item Value Reference Range Interpretation Comments HEMOGLOBIN A1C (BEAKER) (test code = 4.8 % 4.3-6.1 368) Battery Checker ID - [id number] 01:42:00 Test Item Value Reference Range Interpretation Comments MAGNESIUM (BEAKER) (test code = 2.2 mg/dL 1.5-3.0 627) Battery Checker ID - [id number] ID - [id number] ID - [id number] ID - [id number] 01:39:00 Test Item Value Reference Range Interpretation Comments PHOSPHORUS (BEAKER) (test code = 5.0 mg/dL 2.5-4.5 H 604) Battery Checker ID - [id number] W/PLT COUNT & AUTO [id number] 01:37:00 Test Item Value Reference Range Interpretation [...] H PERCENT (BEAKER) (test code = 2801) [id number] 00:00:00Ordered by an unspecified provider.[facility] CenterAirway2021-02-04 14:11:47WeRafael shea CRNA 07/29/2020 8:12 AMAirway Date/Time: [...] RSI: No Number of Attempts at Approach: 1MethodiMonmouth Medical CenterPotassium, [id number] 13:20:20 Test Item Value Reference Range Interpretation Comments Potassium, syringe See_Comment [Automat ed message] The (test code = 2007) system [facility] generated this result tra nsmitted reference range : 3.5 - 5.0 mEq/L. The refe rence range was not used to interpret this result as normal/abnormal . [facility]COVID-19 qualitative [id number] 04:42:40 Test Item Value Reference Range Interpretation Comments Interpretation (test code = 6189166) COVID-19 qualitative RT-PCR Not-Detected Not-Detected result (test code = 04918-8) COVID-19 qualitative RT-PCR See link below for (test code = 7070) PDF Lab Report [facility] Pre/Post [id number] 00:59:42 Test Item Value Reference Range Interpretation Comments Ventricular rate (test code = 253) Atrial rate (test code = 255) ND interval (test code = 266) QRSD interval [...] of 08-JUL-2014 11:47,-No significant change was found- [facility] [id number] 11:07:00Surgical Pathology Report Case: [id number] Authorizing Provider: Bin Acevedo, Collected: 02/12/2020 09:33 AM OrderingLocation: [facility] Received: 02/12/2020 10:58 AM PERIOPERATIVE SERVICES Pathologist: Carlos Betancourt MD Specimen: Carotid, Left, LEFT CAROTID PLAQUE ARTERY, LEFT CAROTID, ENDARTERECTOMY:CALCIFIC ATHEROSCLEROTIC PLAQUE Signing Pathologist Direct Phone Line: [phone] signed by Carlos Betancourt MD on 02/17/2020 at 11:07 [id number]; [id number] carotid stenosis Carotid, LeftA. Received fresh labeled with the patient's name, medical record number and "parotid, left" is a previously incised portion of yellow plaque measuring 1.6 cm in length and 0.8 cm in diameter. Specimen is serially sectioned to reveal calcifications measuring up to 0.2 cm in thickness. Heating [employer] Winder sections are submitted in A1, following decalcification.SATISH Madrid PA ([facility])PerformedHEPATITIS B SURFACE [id number] 14:11:00 Test Item Value Reference Range Interpretation Comments HEPATITIS B SURFACE ANTIGEN (2) Nonreactive Nonreactive (BEAKER) (test code = 2585) Specimen is considered negative for HBsAg.POCT-GLUCOSE [id number] 13:03:00 Test Item Value Reference Range Interpretation Comments POC-GLUCOSE METER 83 mg/dL 70-110 : TESTED A T [facility] 6720 (BEAKER) (test code = [facility] R [facility], 1538) [address]: Battery Checker/Techni justus ID = [id number] for JOIE ORE [id number] 06:30:00 Test Item Value Reference Range Interpretation Comments ACTIVATED CLOTTING TIME 235 sec : 74 -137 seconds, (BEAKER) (test code = Baseli ne: TESTED AT 441) [facility] 67[address] [facility], 770 30: Battery Checker/Techni justus ID = [id number] for DON FARLEY BASIC METABOLIC [id number] 06:01:00 Test Item Value Reference Range Interpretation [...] S 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 Battery Checker ID - PIAYA LPOCT-GLUCOSE [id number] 06:00:00 Test Item Value Reference Range Interpretation Comments POC-GLUCOSE METER 94 mg/dL 70-110 : TESTED Lg T [facility] 6720 (BEAKER) (test code = RADHA Chow[place], 1538) [address]: Battery Checker/Techni justus ID = [id number] for Aren Cheatham [id number] 05:49:00 Test Item Value Reference Range Interpretation Comments MAGNESIUM (BEAKER) (test code = 1.9 mg/dL 1.6-2.6 627) Battery Checker ID - LIAM [id number] 05:31:00 Test Item Value Reference Range Interpretation Comments CORTISOL, TOTAL (BEAKER) (test code 8.3 ug/dL 3.7-19.4 = 2755) Battery Checker ID - [id number] (HEMOGRAM ONLY)2020-02-13 03:06:00 Test [...] (test code = 413) TSH/FREE T4 IF [id number] 02:45:00 Test Item Value Reference Range Interpretation Comments THYROID STIMULATING HORMONE 4.682 uIU/mL 0.350-4.940 (BEAKER) (test code = 772) Battery Checker ID - PICITLALY LPOCT-GLUCOSE [id number] 00:32:00 Test Item Value Reference Range Interpretation Comments POC-GLUCOSE METER 82 mg/dL 70-110 : TESTED A T [facility] 6720 (BEAKER) (test code = [place], 1538) [address]: Battery Checker/Techni justus ID = [id number] for Arne Cheatham BLOOD GAS, [id number] 18:26:00 Test Item Value Reference Range Interpretation [...] code = 1819) 21.0 % COMPREHENSIVE METABOLIC [id number] 18:16:00 Test Item Value Reference Range Interpretation [...] S 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 Battery Checker ID - [id number] 18:14:00 Test Item Value Reference Range Interpretation Comments MAGNESIUM (BEAKER) (test code = 1.8 mg/dL 1.6-2.6 627) Battery Checker ID - NTPCALCIUM, [id number] 18:02:00 Test Item Value Reference Range Interpretation Comments CALCIUM IONIZED (BEAKER) (test 1.14 mmol/L 1.12-1.27 code = 698) PH, BLOOD (BEAKER) (test code = 7.32 1810) [id number] 18:01:00 Test Item Value Reference Range Interpretation [...] (BEAKER) (test code = 413) BLOOD GAS, [id number] 10:37:00 Test Item Value Reference Range Interpretation [...] 1819) 60.0 % HGB/HCT (H&H) - STAT [id number] 10:37:00 Test Item Value Reference Range Interpretation Comments HEMOGLOBIN (BEAKER) (test code = 9.2 g/dL 13.0-16.8 L 410) HEMATOCRIT (BEAKER) (test code = 27.0 % 40.0-50.0 L 411) GLUCOSE-STAT [id number] 10:36:00 Test Item Value Reference Range Interpretation Comments GLUCOSE RANDOM (BEAKER) (test code 104 mg/dL 70-110 = 652) SODIUM NA-STAT [id number] 10:36:00 Test Item Value Reference Range Interpretation Comments SODIUM (BEAKER) (test code = 381) 137 meq/L 136-145 POTASSIUM-STAT [id number] 10:36:00 Test Item Value Reference Range Interpretation Comments POTASSIUM (BEAKER) (test code = 4.0 meq/L 3.6-5.5 379) SARS-COV2/RT-PCR ([facility])2020-02-12 08:04:00 Test Item Value Reference Range Interpretation Comments SARS-COV2/RT-PCR (test code Negative Not Detected, Negative, = 4195317) See external report for linked test SARS-COV-2 PERFORMING LAB [facility] (test code = 9043709) Negative results do not preclude SARS-CoV-2 infection [...] of the Act.Fact Sheet for Healthcare Pro viders:https://www.[employer]/Documents/Xpert%20Xpress%20SARS%20CoV-2/Fact%20Sh eets/302-3802%85BZVG-VON-2%20HEALTHCARE%20PROVIDERS%20FACT%20SHEET.pdfFact Sheet for Healthcare Patients:https://www.[employer]/Documents/Xpert%20Xpress%20SARS%20CoV-2/Fact%20Sheets/302-3801%20SARS-COV -2%20PATIENT%20FACT%20SHEET.pdfPerforming Laboratory:[place] [address], [place] [address]EMONV METABOLIC [id number] 07:28:00 Test Item Value Reference Range Interpretation [...] S 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 Battery Checker ID - NTPCBC W/PLT COUNT & AUTO [id number] 07:21:00 Test Item Value Reference Range Interpretation [...] code = 2801) HGB/HCT (H&H) - STAT [id number] 06:45:00 Test Item Value Reference Range Interpretation Comments HEMOGLOBIN (BEAKER) (test code = 11.3 g/dL 13.0-16.8 L 410) HEMATOCRIT (BEAKER) (test code = 33.0 % 40.0-50.0 L 411) GLUCOSE-STAT [id number] 06:42:00 Test Item Value Reference Range Interpretation Comments GLUCOSE RANDOM (BEAKER) (test code 103 mg/dL 70-110 = 652) POTASSIUM-STAT [id number] 06:42:00 Test Item Value Reference Range Interpretation Comments POTASSIUM (BEAKER) (test code = 4.8 meq/L 3.6-5.5 379) POCT-GLUCOSE [id number] 05:51:00 Test Item Value Reference Range Interpretation Comments POC-GLUCOSE METER 108 mg/dL 70-110 : TESTED A T [facility] 6720 (BEAKER) (test code [facility], = 1538) [address]: Battery Checker/Techni justus ID = [id number] for JORD AN, LACRYSTAL
[2021-07-10 15:59] LABS: Absolute Lymphocytes (CBC) 2.1 K/uL (0.7-4.9); Hematocrit 40.9 % (39.6-49.0); Lymphocytes % 12.7 % (15.3-44.8); MPV 9.4 fL (7.6-11.3); RBC Red Blood Cell Count 4.28 M/uL (4.33-5.43)
[2021-07-10] MEDS ORDERED: ONDANSETRON 4 MG/2 ML VIAL ONE ×2 (16:00→17:54)
[2021-07-10 16:01] LABS: Albumin 3.5 g/dL (3.4-5.0); Bilirubin Direct 0.3 mg/dL (0-0.2); Bilirubin Total 0.8 mg/dL (0.2-1.0); Potassium 5.1 mmol/L (3.5-5.1); Protein, Total 7.3 g/dL (6.4-8.2)
[2021-07-10 16:23] LABS: Platelet Estimate DECR; White Blood Cell Scan OK (OK)
[2021-07-10 16:24] LABS: Anisocytosis 1+; Blood Morphology Comment NOTED (NOT SEEN)
[2021-07-10 16:50] LABS: SARS-COV-2 RT PCR NEGATIVE (NEGATIVE)
--- NOTE | 2021-07-10 17:07 | RAD REPORT ---
EXAM DESCRIPTION: CT - Abdomen Pelvis Wo Contrast - 07/10/2021 4:32 pm CLINICAL HISTORY: Abdominal pain. No contrast;Abd pain COMPARISON: Abdomen Pelvis W Contrast dated 02/19/2021 TECHNIQUE: CT imaging of the abdomen and pelvis was performed without contrast. Solid organ, bowel a nd vascular assessment is limited due to lack of IV and oral contrast. All CT scans are performed using dose optimization technique as appropriate and may include automated exposure control or mA/KV adjustment according to patient size. FINDINGS: Trace pleural effusions are present bilaterally. Both lung bases are emphysematous with po blanca defined opacity in the posterior left lung base noted.Dilatation of the descending thoracic aort a is again seen maximally measuring up to 6 cm. This represents a mild size increase compared to 01/24. Multiple low-density lesions are seen throughout the liver parenchyma compatible small cysts appearin g unchanged. Cholecystectomy clips.The spleen, pancreas and adrenal glands are within normal limits. Severe right-sided hydronephrosis and hydroureter is present appearing progressive since January 2021 study. Polycystic kidneys are again seen bilaterally. There appears to be several soft tissue lesions within the decompressed urinary bladder, incompletely evaluated. Mild free fluid is seen in the abdo men and pelvis. Sigmoid diverticulosis coli without diverticulitis. Aortic stent graft is in place. Mild retroperitoneal lymph nodes are seen. Mild lumbosacral degenerative changes. IMPRESSION: Severe right-sided hydroureter and hydronephrosis is present likely caused by small blad yael mass. Suggest direct visualization with cystoscopy. Bilateral polycystic kidneys. A limited non-contrast examination was performed as detailed.
[2021-07-10 18:09] LABS: Urine Blood 3+ (Negative); Urine Glucose Negative (Negative); Urine Protein 3+ (Negative); Urine Specific Gravity 1.025 (1.005-1.030)
--- NOTE | 2021-07-10 18:25 | ER ---
Nurse's Notes [facility] Name: Robbie Kelly Age: 76 yrs Sex: Male : 1945 Arrival Date: 07/10/2021 Time: 14:59 Bed 2 Private MD: Mookie Nguyen R Diagnosis: Nausea with vomiting, unspecified Presentation: 07/10 15:12 Chief complaint: Patient states: vomiting, constipated, stomach hurting (passing gas), jh5 hemorrhoids acting up. Coronavirus screen: Vaccine status: Patient reports receiving the 2nd dose of the covid vaccine. Client denies travel out of the [place] in the last 14 days. Ebola Screen: Patient negative for fever greater than or equal to 101.5 degrees Fahrenheit, and additional compatible Ebola Virus Disease symptoms Patient denies exposure to infectious person. Patient denies travel to an Ebola-affected area in the 21 days before illness onset. Initial Sepsis Screen: Does the patient meet any 2 criteria? No. Patient's initial sepsis screen is negative. Does the patient have a suspected source of infection? No. Patient's initial sepsis screen is negative. Risk Assessment: Do you want to hurt yourself or someone else? Patient reports no desire to harm self or others. Onset of symptoms was July 08, 2021. 15:12 Method Of Arrival: Ambulatory [facility] 15:12 Acuity: DADA 3 jh5 Triage Assessment: 15:16 General: Appears in no apparent distress. comfortable, slender, well groomed, well jh5 developed, well nourished, Behavior is calm, cooperative, appropriate for age. Pain: Complains of pain in abdomen. GI: Reports constipation, cramping, gaseousness, nausea, vomiting. Historical: - PMHx: 15:16 Anemia; Bladder CA; RENAL FAILURE; POLYCYSTIC KIDNEY DISEASE; Hypothyroidism; jh5 Hypertension; Dialysis; M,W,F; COPD; - Immunization history:: Adult Immunizations up to date. - Social history:: Smoking status: Patient denies any tobacco usage or history of. Patient uses. Screenin:32 Abuse screen: Denies threats or abuse. Nutritional screening: No deficits noted. jd3 Tuberculosis screening: No symptoms or risk factors identified. Fall Risk Ambulatory Aid- None/Bed Rest/Nurse Assist (0 pts). Gait- Normal/Bed Rest/Wheelchair (0 pts) Mental Status- Oriented to own ability (0 pts). Total Hawkins Fall Scale indicates No Risk (0-24 pts). Assessment: 15:38 General: Appears in no apparent distress. comfortable, Behavior is calm, cooperative, jd3 appropriate for age. Pain: Complains of pain in abdomen Quality of pain is described as crampy. Neuro: Level of Consciousness is awake, alert, obeys commands, Oriented to person, place, time, situation. Cardiovascular: Capillary refill < 3 seconds Patient's skin is warm and dry. Respiratory: Airway is patent Respiratory effort is even, unlabored, Respiratory pattern is regular, symmetrical, Denies cough, shortness of breath. GI: Abdomen is round non-distended, Abd is soft and non tender X 4 quads. Reports constipation, cramping, nausea. : No signs and/or symptoms were reported regarding the genitourinary system. EENT: No signs and/or symptoms were reported regarding the EENT system. Derm: No signs and/or symptoms reported regarding the dermatologic system. Musculoskeletal: No signs and/or symptoms reported regarding the musculoskeletal system. 16:30 Reassessment: Patient appears in no apparent distress at this time. No changes from jd3 previously documented assessment. Patient and/or family updated on plan of care and expected duration. Pain level reassessed. Patient is alert, oriented x 3, equal unlabored respirations, skin warm/dry/pink. 17:00 Reassessment: Patient appears in no apparent distress at this time. No changes from jd3 previously documented assessment. Patient and/or family updated on plan of care and expected duration. Pain level reassessed. Patient is alert, oriented x 3, equal unlabored respirations, skin warm/dry/pink. 18:05 Reassessment: Patient appears in no apparent distress at this time. No changes from jd3 previously documented assessment. Patient and/or family updated on plan of care and expected duration. Pain level reassessed. Patient is alert, oriented x 3, equal unlabored respirations, skin warm/dry/pink. Vital Signs: 15:12 BP 123 / 86; Pulse 99; Resp 18; Temp 98.7; Pulse Ox 94% ; Weight 77.11 kg; Height 5 ft. jh5 10 in. (177.80 cm); Pain 10/10; 18:05 BP 136 / 85; Pulse 62; Resp 17 S; Pulse Ox 100% on R/A; jd3 15:12 Body Mass Index 24.39 (77.11 kg, 177.80 cm) 5 ED Course: 14:59 Patient arrived in ED. mr 14:59 Mookie Nguyen MD is Private Physician. mr 15:16 Triage completed. 5 15:16 Arm band placed on right wrist. [facility] 15:20 Elaina Olea FNP-C is [facility]. kb 15:20 Marino Hadley MD is Attending Physician. kb 15:37 Hay Gallagher, RN is Primary Nurse. jd3 15:37 Inserted saline lock: 20 gauge in right antecubital area, using aseptic technique. jd3 Blood collected. 15:54 COVID swab sent to lab. Flu and/or RSV swab sent to lab. mb4 16:32 CT Abd/Pelvis - Without Contrast In Process Unspecified. EDMS 18:33 Patient has correct armband on for positive identification. Bed in low position. Call jd3 light in reach. Side rails up X 1. Adult w/ patient. Pulse ox on. NIBP on. 18:33 No provider procedures requiring assistance completed. IV discontinued, intact, jd3 bleeding controlled, No redness/swelling at site. Pressure dressing applied. Administered Medications: 15:55 Drug: Zofran (Ondansetron) 4 mg Route: IVP; Site: left forearm; 6 16:35 Follow up: Response: No adverse reaction [facility] 17:59 Follow up: Response: No adverse reaction [facility] 17:59 Drug: Zofran (Ondansetron) 4 mg Route: IVP; Site: right antecubital; [facility] 18:36 Follow up: Response: No adverse reaction jd3 Outcome: 18:24 Discharge ordered by . kb 18:33 Discharged to home via wheelchair, with family. jd3 18:33 Condition: stable 18:33 Discharge instructions given to patient, family, Instructed on discharge instructions, follow up and referral plans. medication usage, Demonstrated understanding of instructions, follow-up care, medications, Prescriptions given X 2. 18:36 Patient left the ED. jd3 Signatures: Dispatcher [employer] EDPA Elaina Olea FNP-C FNP-Ckb Rivera, Mary mr Ally Gallagherhon, RN RN jd3 Ginny Beltrán mb4 Beatris Prakash, RN RN jh5 Melody Jovel RN RN jh6
--- NOTE | 2021-07-10 18:25 | EDPHYS ---
Physician Documentation [facility] Name: Robbie Kelly Age: 76 yrs Sex: Male : 1945 Arrival Date: 07/10/2021 Time: 14:59 Bed 2 Private MD: Mookie Nguyen R ED Physician Marino Hadley HPI: 07/10 19:20 This 76 yrs old Male presents to ER via Ambulatory with complaints of Abdominal Pain, kb Vomiting. 19:20 The patient has not experienced similar symptoms in the past. The patient has not kb recently seen a physician. 19:21 The patient presents to the emergency department with nausea, vomiting. Onset: The kb symptoms/episode began/occurred 2 day(s) ago. Possible causes: unknown. The symptoms are aggravated by nothing. The symptoms are alleviated by nothing. Associated signs and symptoms: Pertinent positives: constipation, nausea, vomiting. Severity of symptoms: At their worst the symptoms were moderate in the emergency department the symptoms are unchanged. Historical: - PMHx: 15:16 Anemia; Bladder CA; RENAL FAILURE; POLYCYSTIC KIDNEY DISEASE; Hypothyroidism; jh5 Hypertension; Dialysis; M,W,F; COPD; - Immunization history:: Adult Immunizations up to date. - Social history:: Smoking status: Patient denies any tobacco usage or history of. Patient uses. ROS: 19:20 Respiratory: Negative for shortness of breath, cough, wheezing, and pleuritic chest kb pain. 19:20 Constitutional: Positive for body aches, Negative for chills, fatigue, fever, malaise, poor PO intake, weight loss. 19:20 Abdomen/GI: Positive for nausea and vomiting, constipation. 19:20 All other systems are negative. Exam: 19:20 Constitutional: This is a well developed, well nourished patient who is awake, alert, kb and in no acute distress. Head/Face: Normocephalic, atraumatic. ENT: Moist Mucous membranes Cardiovascular: Regular rate and rhythm with a normal S1 and S2. No gallops, murmurs, or rubs. No pulse deficits. Respiratory: Respirations even and unlabored. No increased work of breathing. Talking in full sentences Abdomen/GI: Soft, non-tender. No distention Skin: Warm, dry with normal turgor. Normal color. MS/ Extremity: Pulses equal, no cyanosis. Neurovascular intact. Full, normal range of motion. Neuro: Awake and alert, GCS 15, oriented to person, place, time, and situation. Moves all extremities. Normal gait. Psych: Awake, alert, with orientation to person, place and time. Behavior, mood, and affect are within normal limits. Vital Signs: 15:12 BP 123 / 86; Pulse 99; Resp 18; Temp 98.7; Pulse Ox 94% ; Weight 77.11 kg; Height 5 ft. jh5 10 in. (177.80 cm); Pain 10/10; 18:05 BP 136 / 85; Pulse 62; Resp 17 S; Pulse Ox 100% on R/A; jd3 15:12 Body Mass Index 24.39 (77.11 kg, 177.80 cm) 5 MDM: 15:21 Patient medically screened. 18:24 Data reviewed: vital signs, nurses notes. Data interpreted: Pulse oximetry: on room air kb is 100 %. Interpretation: normal. Counseling: I had a detailed discussion with the patient and/or guardian regarding: the historical points, exam findings, and any diagnostic results supporting the discharge/admit diagnosis, lab results, radiology results, the need for outpatient follow up, a family practitioner, to return to the emergency department if symptoms worsen or persist or if there are any questions or concerns that arise at home. 19:20 Data reviewed: I have discussed the patient's presentation/case with the attending Emergency Department Physician;. 07/10 15:21 Order name: Basic Metabolic Panel; Complete Time: 16:10 kb 07/10 15:21 Order name: CBC with Diff; Complete Time: 16:38 kb 07/10 15:21 Order name: Hepatic Function; Complete Time: 16:10 kb 07/10 15:21 Order name: Lipase; Complete Time: 16:10 kb 07/10 15:34 Order name: COVID-19/FLU A+B (Document "Date of Onset" if Symptomatic); Complete Time: kb 16:51 07/10 16:22 Order name: CBC Smear Scan; Complete Time: 16:38 EDMS 07/10 15:21 Order name: IV Saline Lock; Complete Time: 15:37 kb 07/10 15:21 Order name: Labs collected and sent; Complete Time: 15:37 kb 07/10 16:10 Order name: CT Abd/Pelvis - Without Contrast; Complete Time: 17:11 kb 07/10 17:34 Order name: Urine Dipstick-Ancillary (obtain specimen); Complete Time: 18:06 kb 07/10 17:34 Order name: PO challenge; Complete Time: 18:06 kb 07/10 18:07 Order name: Urine Dipstick-Ancillary; Complete Time: 18:09 EDMS Administered Medications: 15:55 Drug: Zofran (Ondansetron) 4 mg Route: IVP; Site: left forearm; jh6 16:35 Follow up: Response: No adverse reaction jh6 17:59 Follow up: Response: No adverse reaction jh6 17:59 Drug: Zofran (Ondansetron) 4 mg Route: IVP; Site: right antecubital; jh6 18:36 Follow up: Response: No adverse reaction jd3 Disposition: 19:00 Co-signature as Attending Physician, Marino Hadley MD I agree with the assessment and kdr plan of care. Disposition Summary: 07/10/21 18:24 Discharge Ordered Location: Home kb Condition: Stable kb Diagnosis - Nausea with vomiting, unspecified kb Followup: kb - With: Emergency Department - When: As needed - Reason: Worsening of condition Followup: kb - With: Private Physician - When: 2 - 3 days - Reason: Recheck today's complaints, Continuance of care, Re-evaluation by your physician Discharge Instructions: - Discharge Summary Sheet kb - Nausea and Vomiting, Adult, Kots-jx-Gsly kb Forms: - Medication Reconciliation Form kb - Thank You Letter kb - Antibiotic Education kb - Prescription Opioid Use kb Prescriptions: - Zofran 4 mg Oral Tablet - take 1 tablet by ORAL route every 6 hours As needed; 20 tablet; Refills: 0, kb Product Selection Permitted - dicyclomine 20 mg Oral Tablet - take 1 tablet by ORAL route 4 times per day As needed; 20 tablet; Refills: 0, kb Product Selection Permitted Signatures: Dispatcher [employer] Elaina Martin FNP-C FNP-Ckb Rittger, Kevin, MD MD kdr Rees, Jessica RN RN jh5 Melody Jovel RN RN jh6 Hay Gallagher RN jd3
[2021-07-10 18:43] VITALS: TEMP 98.7
[2021-07-10 18:44] VITALS: BP 136/85; O2SAT 100
== END 2021-07-10 18:36 | disposition home or self-care (01) ==
LOC: ER 14:56
DX: R11.2 Nausea with vomiting, unspecified (principal); Z85.51 Personal history of malignant neoplasm of bladder; Z20.822 Contact with and (suspected) exposure to COVID-19
CPT/HCPCS: 85025; 80048; 36415; 80076; 81003; 83690; 0240U; 74176; 99284; J2405 ×2

== ENCOUNTER 2021-07-31 21:12 | Inpatient (IN) | payer OTHER ==
--- OUTSIDE RECORDS SUMMARY | 2021-07-31 21:22 | XMS REPORT | Continuity of Care Document ---
:1945 Author Organization [facility] t Address [address] [place] [address] Care Team Providers Name Role Phone ALYSSA [...] Attending Clinician RAMESH HUANG Admitting Clinician Unavailable ALSYSA FARRIS Admitting Clinician Unavailable TONNY ACEVEDO Admitting Clinician Unavailable KAYDEN Admitting Clinician Unavailable Payers Payer Name Policy Type Policy Number Effective Expiration Source Date Date MEDICARE A B [id number] 2010 00:00:00 [employer] [id number] 2016 00:00:00 CDC REVIEW [id number] 2020 2020 00:00:00 00:00:00 MEDICAREMEDICARE PART [id number] 2010 [place] [facility] A AND 00:00:00 Hospital [id number] 2009 [place] AND [id number] 2020 Methodis t CASUALTYYumZing LIFE 00:00:00 Hosp ital AND [id number]/2020-PresentCommercia l Problems Condition Condition Condition Status Onset Resolution Last Treating Co mments Source Name Details Category Date Date Treatment Clinician Date 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 Medical 00 [place] Hematuria Hematuria Disease Active [facility] Medical [place] Altered Altered Disease Active [facility] mental mental 3-05 [place] - status status 00:00: Medical 00 [place] s/p L CEA s/p L CEA Disease [...] 00 Center COPD COPD Disease Active Last [facility] (chronic (chronic 6-27 Assessmen [facility] - obstructiv obstructiv 00:00: t & Plan: Medical e e 00 [facility] Center pulmonary pulmonary d with disease) disease) inhalers. No history of smoking. Asthma Asthma Disease Active [facility] ESRD (end ESRD (end Disease Active [facility] stage stage [facility] - renal renal Medical disease) disease) Center Dialysis Dialysis Disease Active [facility] S t patient patient [facility] S/P S/P Disease Active [facility] carotid carotid [facility] endarterec endarterec [place] dicga trinity [facility] Acute Acute Disease Active [facility] blood loss blood loss [facility] anemia anemia [facility] Hypovolemi Hypovolemi Disease Active [facility] shock c shock [facility] Vasogenic Vasogenic Disease Active [facility] shock shock [facility] Bradycardi Bradycardi Disease Active C [facility] a a [facility] Hypothyroi Hypothyroi Disease Active C HI St dism, dism, kes - unspecifie unspecifie Me dical d type d type Center ESRD on ESRD on Disease Active [facility] hemodialys hemodialys [facility] Allergies, Adverse Reactions, Alerts Allergy Allergy Status Severity Reaction(s) Onset Inactive Treating Comm ents Source Name Type Date Date Clinician NO KNOWN Allergy Active [facility] ALLERGIE S Family History Family Member Diagnosis Comments Start Date Stop Date Source Natural father Hypertension [facility] Natural father Heart disease [facility] Natural father Heart failure [facility] Natural mother Cancer [facility] Natural mother Hypertension [facility] Natural sister COPD [facility] Natural brother Cancer [facility] Natural daughter Polycystic kidney C HI [facility] Social History Social Habit Start Date Stop Date Quantity Comments Source History of tobacco Smoker [facility] Sex Assigned [facility] Tobacco use and 2021-02-10 2021-02-10 Never used [facility] - exposure 00:00:00 00:00:00 Medical [place] Alcohol intake 2021-02-10 2021-02-[address] [facility] - 00:00:00 00:00:00 non-drinker of Medical Ce nter alcohol (finding) History SDOR 2020-07-29 2020-07-29 1 [facility] Alcohol Frequency 00:00:00 00:00:00 Hospita l History SDOH 2020-07-29 2020-07-29 99 [facility] Alcohol Std Drinks 00:00:00 00:00:00 Hospit al History SDOH 2020-07-29 2020-07-29 1 [facility] Alcohol Binge 00:00:00 00:00:00 Hospital Smoking Status Start Date Stop Date Source Former smoker 2021-02-10 00:00:00 2021-02-10 00:00:[address] [facility] Medications Ordered Filled Start Stop [...] daily. Medical 08 Center calcium Yes 1{tbl} Q.[id number] Take [address] carbonate 8-19 [id number] tablet by [facility] - (Calcium 13:26: 3D [...] 00:00 mouth. Medica l capsule 29 :00 [place] levoFLOXaci 2020- No 250mg QD Take [address] n -27 04-27 mg by [facility] - (LEVAQUIN) 16:01: 00:00 mouth Medic al 250 MG 25 :00 daily. Center tablet predniSONE No 20mg QD Take [address] (DELTASONE) 10-19 04-27 by mouth Crispin es - 20 MG 16:00: 00:00 daily. Medical tablet 39 :00 [place] metoprolol 2020- No 50mg Q.5D Take 50 [...] for 30 days. oxybutynin 2020- No 5mg Q.04193835 Take [address] (DITROPAN) 3-11 04-10 [id number] tablet (5 [facility] - 5 MG tablet [...] while taking narcotic based pain meds. traMADoL [id number] 50mg Q6H Take 1 Metho di (Ultram) [...] Name Observation Time Observation Value Comments Source WEIGHT 2021-03-28 07:15:00 79.379 kg HEIGHT 2021-03-28 07:15:00 177.8 cm HEIGHT 2021-03-09 13:19:00 170.2 cm WEIGHT 2021-03-09 13:19:00 80.287 kg HEIGHT 2020-10-19 16:05:00 177.8 cm WEIGHT 2020-10-19 16:05:00 78.019 kg WEIGHT 2020-08-27 22:30:00 82.555 kg HEIGHT 2020-01-29 00:00:00 177.8 cm WEIGHT 2020-01-29 00:00:00 82 kg WEIGHT 2021-04-21 08:33:00 77.883 kg WEIGHT 2021-03-31 09:03:00 77.474 kg WEIGHT 2021-03-28 07:15:00 79.379 kg HEIGHT 2021-03-28 07:15:00 177.8 cm HEIGHT 2021-03-09 13:19:00 170.2 cm WEIGHT 2021-03-09 [...] cm Systolic blood 2021-02-10 13:25:00 131 mm[Hg] [facility] Diastolic blood 2021-02-10 13:25:00 65 mm[Hg] [facility] Heart rate 2021-02-10 13:25:00 101 /min [facility] Body temperature 2021-02-10 13:25:00 36.72 Jailyn [facility] Body weight 2021-02-10 13:25:00 78.427 kg [facility] BMI 2021-02-10 13:25:00 27.08 kg/m2 [facility] Respiratory rate 2020-10-27 17:00:00 18 /min [facility] Oxygen saturation in 2020-10-27 17:00:00 98 /min [facility] Arterial blood by Medical Ce nter Pulse oximetry Body height 2020-10-23 02:16:00 170.2 cm [facility] Systolic blood 2020-07-29 16:16:00 136 mm[Hg] [facility] pressure Diastolic blood 2020-07-29 16:16:00 65 mm[Hg] [facility] pressure Heart rate 2020-07-29 16:16:00 90 /min [facility] Body temperature 2020-07-29 16:16:[address] [facility] Oxygen saturation in 2020-07-29 16:16:00 95 /min [facility] Arterial blood by Pulse oximetry Respiratory rate 2020-07-29 16:15:00 12 /min [facility] Body height 2020-07-29 11:29:00 177.8 cm [facility] Body weight 2020-07-29 11:29:00 82.3 kg [facility] BMI 2020-07-29 11:29:00 26.03 kg/m2 [facility] Procedures Procedure Date / Time Performing Clinician Source Performed URINE CULTURE, ROUTINE 2021-01-13 15:02:00 Reina [facility] URINE CULTURE, ROUTINE 2020-11-04 15:40:00 Reina [facility] UA/M W/RFLX CULTURE, 2020-11-04 15:40:00 Sebas Huang [facility] MICROSCOPIC EXAMINATION 2020-11-04 15:40:00 Sebas Huang [facility] PREPARE LEUKO-REDUCED 2020-10-28 23:54:00 Keith [facility] RBC [facility] TRANSFUSE LEUKO-REDUCED 2020-10-27 11:34:36 Keith [facility] RED BLOOD CELLS [facility] HEMODIALYSIS INPATIENT 2020-10-27 07:47:37 Keith [facility] BASIC METABOLIC PANEL 2020-10-27 04:39:[address] [facility] (7) [facility] CBC W/PLT COUNT & AUTO 2020-10-27 04:39:00 RastaSuzan [facility] BASIC METABOLIC PANEL 2020-10-26 03:41:[address] [facility] (7) [facility] CBC W/PLT COUNT & AUTO 2020-10-26 03:41:00 RastaSuzan [facility] TISSUE EXAM 2020-10-25 18:39:00 Sebas Huang [facility] CYSTOSCOPY,INSERTION 2020-10-25 17:37:00 Reina [facility] - URETERAL STENTS [facility] POTASSIUM 2020-10-25 13:16:00 Cuauhtemoc Dixon [facility] HEPATITIS B SURFACE 2020-10-25 09:18:00 Robert Hector [facility] HEMODIALYSIS INPATIENT 2020-10-25 08:42:58 Alroumoh, [facility] BASIC METABOLIC PANEL 2020-10-25 06:09:00 Sebas [facility] ([facility]) [facility] PHOSPHORUS 2020-10-25 06:09:00 Tawny [facility] CBC (HEMOGRAM ONLY) 2020-10-25 06:09:00 [facility] TYPE AND SCREEN, 2020-10-24 13:45:00 Sebas Huang [facility] Yuliet kes - AUTOMATED [facility] HEPATITIS B SURFACE 2020-10-23 14:18:00 [facility] HEMODIALYSIS INPATIENT 2020-10-23 11:41:00 [facility] BASIC METABOLIC PANEL 2020-10-23 04:31:00 [facility] CBC W/PLT COUNT & AUTO 2020-10-23 04:31:00 Tawny OteroManuel [facility] SARS-COV2/RT-PCR ([facility] & 2020-10-22 23:20:[address] [facility] - REF LABS) [facility] CT ABDOMEN/PELVIS WITH 2020-10-22 21:31:00 Rayshawn Otero [facility] - IV CONTRAST [facility] CBC W/PLT COUNT & AUTO 2020-10-22 21:12:00 [facility] URINE CULTURE 2020-10-22 11:48:00 Sebas Huang [facility] BASIC METABOLIC PANEL 2020-10-22 11:48:[address] (7) [facility] CBC W/PLT COUNT & AUTO 2020-10-22 11:48:00 Sebas Huang [facility]I kes - DIFFERENTIAL [facility] PT/APTT 2020-10-22 11:48:00 Sebas [facility] TYPE AND SCREEN, 2020-10-22 11:48:00 Sebas Huang CHI kes - AUTOMATED [facility] CT ABDOMEN/PELVIS WITH & 2020-09-21 13:12:[address] [facility] - WITHOUT IV CONTRAST [facility] MR ABDOMEN WITHOUT IV 2020-09-02 11:20:[address] - CONTRAST [facility] MR PELVIS WITHOUT IV 2020-09-02 11:20:00 Sebas Huang [facility] - CONTRAST [facility] TISSUE EXAM 2020-08-31 12:53:[address] [facility] - [facility] FL FLUORO NON-SPECIFIC 2020-08-31 12:50:00 Sebas Huang [facility] - UP TO 1 HOUR [facility] CYSTOSCOPY,INSERTION 2020-08-31 11:42:00 Sebas Huang CHI - URETERAL STENTS [facility] CBC W/PLT COUNT & AUTO 2020-08-31 04:50:00 Arianna Whitt [facility] COMPREHENSIVE METABOLIC 2020-08-31 04:50:00 Pedro Farris [facility] MAGNESIUM 2020-08-31 04:50:00 Pedro Farris [facility] NM MYOCARDIAL PERFUSION 2020-08-30 16:44:00 Sebas Huang [facility] - SPECT, PHARM(LEXISCAN) [facility] enter HEMODIALYSIS INPATIENT 2020-08-30 11:55:05 Jluis Parker [facility] CBC W/PLT COUNT & AUTO 2020-08-30 05:14:00 OnArianna salcido [facility] LIPID PANEL 2020-08-30 05:14:00 Ty, [facility] 2D ECHO W/ DOPPLER 2020-08-29 13:22:39 Ty, [facility] (CW/PW/COLOR) [facility] T4, FREE 2020-08-29 12:22:00 Ty, [facility] TSH 2020-08-29 12:22:00 Ty, [facility] FERRITIN 2020-08-29 12:22:00 Ty, Humberto [facility] VITAMIN B12 2020-08-29 12:22:00 Ty, [facility] PSA 2020-08-29 12:22:00 Ty, [facility] US RENAL COMPLETE 2020-08-29 11:15:00 Sebas Huang [facility] BRAIN WITHOUT IV 2020-08-29 05:02:00 Steve Welsh CH I [facility] TROPONIN I 2020-08-29 04:21:[address] [facility] BASIC METABOLIC PANEL 2020-08-29 04:21:00 Jose Eduardo [facility] () [facility] CBC W/PLT COUNT & AUTO 2020-08-29 04:21:00 Jose Eduardo [facility] RETICULOCYTE COUNT 2020-08-29 04:21:00 Ty, Humberto [facility] OCCULT BLOOD, STOOL 2020-08-29 02:52:00 Owen Jhaveri [facility] TROPONIN I 2020-08-28 16:08:00 [facility] HEPATITIS B SURFACE 2020-08-28 16:06:[address] [facility] ANTIGEN [facility] HEPATITIS B SURFACE 2020-08-28 15:26:00 Keith [facility] ANTIBODY [facility] HEMODIALYSIS INPATIENT 2020-08-28 11:36:37 Keith [facility] TROPONIN I 2020-08-28 05:56:00 [facility] CBC W/PLT COUNT & AUTO 2020-08-28 05:56:00 Pedro Farris [facility] BASIC METABOLIC PANEL 2020-08-28 05:56:[address] [facility] (7) [facility] ECG 12-LEAD 2020-08-28 01:21:18 Unknown, Hl7 Doctor [facility] HEMOGLOBIN A1C 2020-08-28 01:19:00 Owen Jhaveri [facility] URINE CULTURE 2020-08-28 01:05:00 [facility] URINALYSIS W/ REFLEX 2020-08-28 01:05:00 Owen Jhaveri [facility] URINE CULTURE [facility] CBC W/PLT COUNT & AUTO 2020-08-28 01:05:00 [facility] COMPREHENSIVE METABOLIC 2020-08-28 01:05:00 Janette Jhaveri [facility] MAGNESIUM 2020-08-28 01:05:00 Owen Jhaveri [facility] PHOSPHORUS 2020-08-28 01:05:00 [facility] PROTHROMBIN TIME/INR 2020-08-28 01:05:00 Owen Jhaveri [facility] HEPATIC FUNCTION PANEL 2020-08-28 01:05:[address] [facility] LIPID PANEL 2020-08-28 01:05:00 Owen Jhaveri [facility] REPORT OF PROCEDURE - 2020-08-27 00:00:00 Provider, Yoko [facility] ENDOSCOPY SCAN Scanning [facility] MN AN ELECTIVE 2020-07-29 14:11:47 Rafael Blas Ho spital ENDOTRACHEAL AIRWAY THROMBECTOMY, GRAFT, AV 2020-07-29 13:39:00 Jose Keen [facility] POTASSIUM, SYRINGE 2020-07-29 13:00:00 Jose Keen [facility] POTASSIUM, SYRINGE 2020-07-29 12:11:00 Jose Keen [facility] HEMOGLOBIN, SYRINGE 2020-07-29 12:11:00 Jose Keen [facility] GLUCOSE LEVEL, SYRINGE 2020-07-29 12:11:00 Jose Keen [facility] ECG PRE/POST OP 2020-07-27 21:26:54 [facility] HEMOGLOBIN A1C 2020-07-27 21:19:00 [facility] HEMOGLOBIN 2020-07-27 21:19:00 Keen, Jose [facility] POTASSIUM LEVEL 2020-07-27 21:19:00 [facility] GLUCOSE LEVEL 2020-07-27 21:19:00 [facility] COVID-19 QUALITATIVE 2020-07-27 20:57:00 [facility] RT-PCR RHYTHM STRIP - SCAN 2020-02-19 12:30:59 Provider, Default [facility] - Scanning [facility] Plan of Care Planned Activity Planned Date Details Comments Source Future Scheduled 2021-08-[address] [facility] - Test 00:00[facility] [place] [facility]) [code = 180604453] Future Scheduled 2021-02-23 INFLUENZA VACCINE (#1) C [...] 00:00:00 (1 of 1 - Medical Center [id number] PCV13) [code = PNEUMOCOCCAL 65+ YRS (1 of 1 - [id number] PCV13)] Future Scheduled 1995 SHINGLES VACCINES (1 [...] HEPATITIS C Medical Center SCREENING] Future Scheduled COLONOSCOPY SCREENING Me [facility] Test [code = COLONOSCOPY SCREENING] Future Scheduled SHINGLES VACCINES (#[facility]) [facility] [code = SHINGLES VACCINES (#1)] Future Scheduled COVID-19 VACCINE (2 - [facility] Pfizer 2-dose series) [code = COVID-19 VACCINE (2 - Pfizer 2-dose series)] Future Scheduled INFLUENZA VACCINE [facility] [code = INFLUENZA VACCINE] Future Scheduled Hepatitis C screening [facility] Test (procedure) [code = 339979543] Encounters Start End Encounter Admission Attending Care Care Encounter Source Date/Time Date/Time Type Type Clinicians Facility Department ID 2021-04-03 Outpatient [facility] Surgery [id number] SLS 11:01:56 SEBAS 2021-04-02 Outpatient REINA, [facility] Surgery [id number] SLS 16:32:40 SEBAS 2021-04-02 Inpatient SURI [facility] [id number] SLS 06:41:40 [facility] 2021-03-30 Inpatient TREVOR [facility] Surgery [id number] SLE 02:21:06 BIN 2021-06-07 2021-06-07 Outpatient ADELINA GORMAN [facility] [id number] SLE 08:31:56 08:31:56 ENID 2021-05-26 2021-05-26 Outpatient ADELINA ACEVEDO [facility] [id number] SLEH 00:00:00 00:00:00 BIN 2021-04-26 2021-04-26 Outpatient ADELINA [facility] [id number] SLS 13:26:28 23:59:00 2021-04-26 2021-04-26 Outpatient ADELINA HUANG [facility] [id number] SLS 13:26:17 23:59:00 SEBAS 2021-04-21 2021-04-21 Outpatient REINA [facility] [id number] [facility] 08:21:47 09:25:29 [facility] 2021-04-12 2021-04-12 Outpatient REINA [facility] [id number] 00:[facility]00 00:00:00 [facility] 2021-03-31 2021-03-31 Outpatient REINA [facility] [id number] 08:49:29 10:07:05 [facility] 2021-03-24 2021-03-24 Outpatient REINA [facility] [id number] 00:00[facility]00 00:00:00 [facility] 2021-03-24 2021-03-24 Outpatient [facility] [id number] [facility] 00:00:00 00:00:00 2021-03-24 2021-03-24 Outpatient EL [facility] [id number] [facility] 00:00:00 00:00:00 2021-03-22 2021-03-22 Outpatient REINA [facility] [id number] 00:[facility]00 00:00:00 [facility] 2021-03-17 2021-03-17 Outpatient REINA [facility] [id number] 00:[facility]00 00:00:00 [facility] 2021-03-17 2021-03-17 Outpatient EL [facility] [id number] [facility] 00:00:00 00:00:00 2021-03-11 2021-03-11 Outpatient EL [facility] [id number] [facility] 00:00:00 00:00:00 2021-02-17 2021-02-17 Telephone Reina [facility] [id number] 00:[facility]00 00:00:00 [facility] 2021-02-10 2021-02-10 Procedure Reina [facility] [id number] 13:12:47 14:02:58 visit [facility] 2021-01-27 2021-01-27 Outpatient REINA [facility] [id number] 00:[facility]00 00:00:00 [facility] 2021-01-27 2021-01-27 Orders Reina, [facility] [id number] 00:[facility]:00 00:00:00 Only [facility] 2021-01-13 2021-01-13 Office Reina, [facility] [id number] 08:59:50 10:28:11 Visit [facility] 2020-12-07 2020-12-07 Office Reina, [facility] [id number] 09:28:24 11:43:01 Visit [facility] 2020-12-02 2020-12-02 Telephone Reina, [facility] [id number] 00:00[facility]00 00:00:00 [facility] 2020-11-04 2020-11-04 [id number] 08:50:13 10:38:54 Visit [facility] 2020-10-28 2020-10-28 Outpatient EL [facility] [id number] [facility] 00:00:00 00:00:00 2020-10-22 2020-10-27 Hospital YulietLyndseyManuel [facility] [id number] [facility] 20:30:00 17:53:00 Encounter Pedro Farris [facility] 2020-10-25 2020-10-25 Anesthesia Cuauhtemoc Dixon [facility] [id number] [facility] 17:37:00 18:41:00 Event Emili Oliveira [facility] 2020-10-25 2020-10-25 Surgery Reina, [facility] [id number] 13:30:00 14:45:00 [facility] 2020-10-23 2020-10-23 Travel [facility] [id number] [facility] 00:[facility]:00 00:00:00 [facility] 2020-10-22 2020-10-22 Hospital [id number] [facility] 11:47:21 20:29:00 Encounter [facility] 2020-10-22 2020-10-22 Emergency ER [facility] Emergency [id number] [facility] 20:14:00 20:14:00 2020-10-22 2020-10-22 Outpatient EL [facility] [id number] [facility] 00:00:00 00:00:00 2020-10-19 2020-10-19 Travel [facility] [id number] [facility] 00:00:00 [facility] 2020-10-19 2020-10-19 [facility] [id number] [id number] 00:[facility]00 00:00:00 [facility] 2020-10-06 2020-10-06 [facility] [id number] [id number] 00:00:00 00:00:00 [facility] 2020-09-30 2020-09-30 [facility] [id number] 13:08:05 14:49:10 Visit [facility] 2020-09-21 2020-09-21 [facility] [id number] 12:18:35 23:59:00 Encounter [facility] 2020-09-21 2020-09-21 [id number] [facility] 00:00:00 00:00:00 2020-09-20 2020-09-20 Outpatient EL [facility] [id number] [facility] 00:00:00 00:00:00 2020-09-16 2020-09-[address] [facility] [id number] 00:00:00 00:00:00 Orders [facility] 2020-09-13 2020-09-13 [id number] 15:09:40 17:08:47 Visit [facility] 2020-08-27 2020-09-02 Hospital Pedro Becerra [facility] [id number] 22:17:00 14:43:00 Encounter [facility] 2020-08-31 2020-08-31 Anesthesia Cuauhtemoc Dixon [facility] [id number] [facility] 11:42:00 13:11:00 Event Carroll Burton [facility] 2020-08-31 2020-08-[address] [facility] [id number] 11:00:00 12:15:00 [facility] 2020-08-28 2020-08-28 Orders [facility] [id number] 00:00:00 00:00:00 Only [facility] 2020-08-27 2020-08-27 Travel [facility] [id number] [facility] 00:[facility]:00 00:00:00 [facility] 2020-08-26 2020-08-26 Office Kayden 1.2.840.6 [id number] Methodi 14:27:45 16:08:33 Visit Jose Rodgers 09434.1.[id number] 3.430.2.7 Hospit a .3.884974 l .8 2020-08-26 2020-08-26 Travel 1.2.840.1 [id number] Methodi 00:00:00 00:00:[address] 3[address]430.2.7 0.2.7.3.698 Ho spita .3.841971 084.8 l .8 2020-08-02 2020-08-02 Travel 1.2.840.1 [id number] Methodi 00:00:00 00:00:[address] 3.430.2.7 0.2.7.3.698 isaac .3.666663 084.8 l .8 2020-07-30 2020-07-30 [facility], 1.2.840.9 [id number] Methodi 00:00:00 00:00:00 Jose Rodgers 67788.1.[address] 3.430.2.7 Hospit a .3.391157 l .8 2020-07-29 2020-07-29 [facility] 1.2.840.1 [id number] Methodi 05:10:00 11:27:00 Encounter Jose Rodgers [id number] 3.430.2.7 Hospit a .3.099363 l .8 2020-07-29 2020-07-29 [facility], 1.2.840.1 [id number] Methodi 07:30:00 09:25:00 Jose Rodgers 04152.1.[address] 3.430.2.7 Hospit a .3.086470 l .8 2020-07-29 2020-07-29 Anesthesia Saud Villatoro 1.2.840.1 [id number] Methodi 07:40:00 09:17:00 Event Rose Garcia 01807.1.[address] 3.430.2.7 Hospit a .3.036029 l .8 2020-07-29 2020-07-29 [facility], 1.2.840.1 [id number] Methodi 00:00:00 00:00:00 Only Derrick Jeong 32478.1.[address] 3.430.2.7 Hospit a .3.200425 l .8 2020-07-29 2020-07-29 Travel 1.2.840.1 1.2.538.451 6336 [id number] Methodi 00:00:00 00:00:[address] 3.430.2.7 0.2.7.3.698 Ho spita .3.391129 084.8 l .8 2020-07-27 2020-07-27 Pre-Admiss Kayden, 1.2.840.1 [id number] Methodi 14:35:19 15:35:19 ion Jose Rodgers 22207.1.[address] Testing 3.430.2.7 Hospit a .3.753764 l .8 2020-07-27 2020-07-27 Travel 1.2.840.1 1.2.162.532 4951 [id number] Methodi 00:00:00 00:00:[address] 3.430.2.7 0.2.7.3.698 Ho spita .3.228231 084.8 l .8 2020-07-23 2020-07-23 Telephone Kayden, 1.2.840.0 [id number] Methodi 00:00:00 00:00:00 Jose Rodgers 68234.1.[address] 3.430.2.7 Hospit a .3.145794 l .8 2020-07-23 2020-07-23 Travel 1.2.840.1 1.2.945.007 7338 [id number] Methodi 00:00:00 00:00:[address] 3.430.2.7 0.2.7.3.698 Ho spita .3.115033 084.8 l .8 2020-07-22 2020-07-22 Office Keen, 1.2.840.7 [id number] Methodi 14:38:20 15:37:56 Visit Jose Rodgers 44233.1.[address] 3.430.2.7 Hospit a .3.773139 l .8 2020-07-21 2020-07-21 Travel 1.2.840.1 1.2.386.936 4880 075929 Methodi 00:00:00 00:00:00 62582.1.1 350.1.13.43 489 3.430.2.7 0.2.7.3.698 spita .3.401966 084.8 l .8 2020-02-26 2020-02-27 [facility] [id number] [facility] 10:18:16 10:14:49 Visit [facility] 2020-02-26 2020-02-26 Outpatient [facility] [id number] 1499 [facility] 00:00:00 00:00:00 BIN 2020-02-03 2020-02-03 [facility] 237449 4849 [facility] 00:00:00 00:00:00 BIN 2020-01-30 2020-01-30 Outpatient [facility] [id number] 707 [facility] 00:00:00 00:00:00 Results Test Description Test Time Test Comments Results Result [facility] e Comments CT, CHEST, WITH 2021-05-02 Unlisted Reason CONTRAST 15:08:00 for Exam - Click Yes and [facility] Enter Reason [facility] Below->No CENTERName: Robbie LONDON : 1945 Sex: [...] Click Yes and [facility] Enter Reason [facility] Below->[facility] this procedure C : require [...] with areas of fibrosis. Signed: Milo Hampton [facility] Verified Date/Time: 05/02/2021 15:08:26 UE EXAM 2021-03-29 Surgical Pathology 15:37:48 Report Case: [id number] Authorizing Provider: Sebas Huang, Collected: 03/28/2021 09:09 AM Ordering Location: [facility] PERIOPERATIVE Received: 03/28/2021 10:51 AM SERVICES Pathologist: [...] FOR EVALUATION Signing Pathologist Direct Phone Line: [phone] ally signed by Ariana Victor MD on 03/29/2021 at 3:37 [id number] n5Bobopbvl tumor, bladder tumorA.bladder tumor, right ureteral orifice; [...] entirely submitted into B1. 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 - DSENSONOperator ID - DSENSONOperator ID - DSENSONOperator ID - DSENSONURINE [id number] 08:30:07 Test Item Value Reference Range Interpretation Comments CULTURE (BEAKER) (test code = 1095) No growth SARS-COV2/RT-PCR ([facility])2021-03-25 04:37:04 Test Item Value Reference Range Interpretation Comments SARS-COV2/RT-PCR (test code = Negative Negative 1476784) Negative result for this test determines that [...] Healthcare Providers:https://www.molecular.goddard/burak/RT SARS-CoV-2 HCP Fact Sheet 51- 649011.pdfFact Sheet for Healthcare Patients:https://www.molecular.goddard/burak/RT SARS-CoV-2 Patient Fact Sheet EN 51-529551Q9.pdfBASIC METABOLIC [id number] 13:21:06 Test Item Value Reference Range Interpretation [...] S 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 - DSENSONOperator ID - DSENSONOperator ID - DSENSONOperator ID - DSENSONOperator ID - DSENSONOperator ID - DSENSONOperator ID - DSENSONOperator ID - DSENSONOperator ID - DSENSONOperator ID - DSENSONOperator ID - DSENSONOperator ID - DSENSONOperator ID - DSENSONCBC W/PLT COUNT & AUTO [id number] 13:08:14 Test Item Value Reference Range Interpretation [...] PERCENT (BEAKER) (test code = 2801) URINE [id number] 11:41:14 Test Item Value Reference Range Interpretation Comments CULTURE (BEAKER) (test <10,000 col/mL skin code = 1095) ramírez RAD, CHEST, 2 [id number] 13:50:00Reason for exam:->pre opShould this be performed at the bedside?->No [facility] : 1945 Sex: MFINAL [...] MDReport Verified Date/Time: 03/11/2021 13:50:52 [facility] BASI METABOLIC [id number] 12:05:00 Test Item Value Reference Range Interpretation [...] S 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 - DSENSONOperator ID - DSENSONOperator ID - DSENSONOperator ID - DSENSONOperator ID - DSENSONOperator ID - DSENSONOperator ID - DSENSONOperator ID - DSENSONOperator ID - DSENSONOperator ID - DSENSONOperator ID - DSENSONOperator ID - DSENSONOperator ID - DSENSONPROTHROMBIN TIME/[id number] 11:43:47 Test Item Value Reference Range Interpretation Comments PROTIME (BEAKER) 11.6 seconds 9.3-12.0 Final Infor mation (test code = 759) (Auto Outp ut) INR (BEAKER) (test 1.05 See_Comment Final Inf ormation code = 370) (Auto Output) [Automated mess age] The system [employer]asting[employer] generated this result transmitted ref erence range: [...] (BEAKER) (test code = 2801) URINE CULTURE, [id number] 04:06:00 Test Item Value Reference Range Interpretation Comments Urine Culture, SEE NOTE CULTURE, UR INE, Routine (test ROUTINE [facility] technician code = 5046937) Number: [id number] Test Status: Final Specimen Source: URINE Specimen [...] ANSWER AT DR OFFICE TO VERIFY TEST 926922 [facility] W/RFLX CULTURE, [id number] 22:06:00 Test Item Value Reference Range Interpretation Comments Specific Homer, UA 1.014 1.005-1.03 (test code = 2965-2) pH, UA (test code = >=9.0 5.0-7.5 A 5803-2) Color, UA (test code Paradise Yellow = 9796-4) Appearance (test code Cloudy Clear A = 8241725) WBC Esterase (test 1+ Negative A code = 7806200) Protein, UA (test 3+ Negative/T A code = 27522-3) Glucose, Urine (test Trace Negative A code = 31542-9) Ketones, UA (test Negative Negative code = 2514-8) Blood, UA (test code 3+ Negative A = 72336-8) Bilirubin, UA (test Negative Negative code = 5770-3) Urobilinogen,Semi-Qn 0.2 mg/dL 0.2-1 (test code = 1071033) Nitrite, UA (test Negative Negative code = 82882-5) Microscopic See below: Microscopic was Examination (test indicated and was code = 4409612) performed. Urinalysis Reflex Comment This speci men has (test code = 1582183) reflex ed to a Urine Culture. ТАТЬЯНА (test code = ТАТЬЯНА) Performed at: [facility] [id number] Director: Calderon Silver MD, Phone: [phone] Lab Interpretation Abnormal (test code = 96173-2) [facility]CROSCOPIC [id number] 22:06:00 Test Item Value Reference Range Interpretation [...] ТАТЬЯНА (test code = ТАТЬЯНА) Performed at: [facility] [place], [place] [address] Director: Calderon Silver MD, Phone: [phone] Lab Interpretation Abnormal (test code = 91903-2) [facility] Leuko-Red [id number] 23:54:00 Test Item Value Reference Range Interpretation Comments CROSSMATCH (test code = 2264) COMPATIBLE Unit ABO (test code = O Pos 2764197) UNIT NUMBER (test code = [id number] 934-0) Status (test code = 8045416) TX_TIMEINCHART Blood Bank Product (test code RED BLOOD CELLS = 2263) PRODUCT CODE (test code = S3412K99 933-2) [facility] GardenaTissue [id number] 10:04:00 Test Item Value Reference Range Interpretation Comments Case Report (test code Surgical Pathology = 104) Report Case: [id number] Authorizing Provider: Sebas Huang, Collected: 10/25/2020 06:39 PM Ordering Location: [address] Med/Surg Received: 10/26/2020 07:45 AM Pathologist: Ariana Victor MD Specimens: A) - Bladder Tumor, Bladder clots and right ureteral tumor B) - Bladder Biopsy, Left Wall, left bladder wall C) - Bladder Biopsy, Wall, posterior bladder wall DIAGNOSIS (test code = c5updIUlZWIqd1xmHCZzqN 3220) FuZzEwMzNcZnRuYmpcdWMx IHtccnRmMVxlcGljOTIwMl qvfpUxPZVfvBBvJ2Bjlxsj NIkpAC9xCN8dqZxizSBfnP UyZAWrHtGig0mvo890bZPr o6kaAQMZiisslLe1kHegO7 8cb6R9TkamJ17snSUpHRvy bGFpblxmczIwIEEuIEJMQU KQKQZvN1xUSDJtYH2VQOAI Z5gJNRXAYYAVScIRXFUEWN 0MRJTLVH2IL1e0FTGvmsRh SVTiQFpDO0lnD7LRPUBlRY PCUZfMKWpUVUQBSQJLIQ9Z QHUyND8mGOEHOPFXO0QMGB 4KOT6ESJaSYV0ZJkxPB5Nw DS8UQ2NNV4rKNWVHQQVFDv FOVUxBVElPTiBUSVNTVUUg Id3OKVQCUW7CIZNvcnVxBL JrJNAVBM0EIOySVuKTHHGm MJ2IVgYQZBNXISSTPDOHMZ 1JTkEgUFJPUFJJQVxwYXIg ICAgLSBOTyBERUZJTklUSV PAFX5AH7FASKVNVITpXSPJ NGNIEIESMiEGOeIDTQ6LIB GAGrKLSyAZOZNSMM3CNEQk vobhQEArZk5uCCMEXEGHAU EDOTXIIZbPMXipTJBBP8OP FJwopFOrKRKsWE3wTLZIUE kKWRrWENPGJZNXI5VbQS0W D8HEJHTSBYTEWwITWMyQR1 5JNqUXFITtqxQvAIKcCZ9T GU2YG6XCKLYNVVKpQOJWFC EFMBTLHrZAWdQPMK7UPNJA PfTBVvUKZJQCSQ0BHIKpbY RnVTRitoQQIzCBD6BEBHQH P1ZoDlvWAATYQnYERLwNKW LNFF2TM7i1CXZushWbJOZw EAFAQ9ECETfJEPhtAHSCQ8 SIAOPELBgAPBhRBGLIE1Ui EWAXBOjMKU7FZRDjcUIjXK LgLE7nOQGCD4XNHDLZTlZF Cq4UQaeYEKjHKZERJFFQUs BtoNJiBMAzyaJZQv4aaJmo NUZ6o9qcwEDzYXXsrVHaQD AwMFxhbnNpXGRlZmxhbmcx PSMzJTM1ooZyKMIuQHupAA RuVHwqIp2ndAQoqKtcLrXi UYDwy1baxzWHagqcmOv0i7 qlWDUoYvP4qZPpLLquQ8ta csIyhDRpJMNyFEq9yA35SL RxxC6suRNcEYsjjbAaAvH4 HVfjDHUfNrH1EHUkdYCzYJ VaY1leQHFpRDhvIHOoCKmr qQUtRCP4zVtlh7S5tLWvvL SwdIncNgNgVhYmNwUDn9Pm AAn3vLcqX6EbDSIkLqC2hM QgUGFyYWdyYXBoIEZvbnQ7 yK91CFhilfM5xACvt0Ejs5 0mf187fC5bsLVvWEC7HJRc QKPkyRQiNITqVEU0LAYspX AnN8gmNFQbPT5cyeicBLoz UXleQKDtkCR5XOIncNCjQ2 NpGTFcZYqiUTWyyrm4RzDq Gs3ecNAtjPesGRgth2kev6 muoUPfZiy6WLIlVmTeGska OElwy6Ize2hmHAFrim0yWH K4vQNgqZema5E1rGBgSRIq nIDpEVTsSA7wsJDbGJSlaQ 5ucmxjXHBnYnJkcmhlYWRc iIjmfmNyHv5fwFchPPF1DD epP5iukE1qDxO7OHwoY7tl iK1fEIk7LOweLMWgoWY2yl X2UZVcmMWdD3PftM2lCFOt XE4crip1y4lkVDD5KHimTZ AlPqQ9wwU7RYZzjXFgSZOd iFsaYBwaz517VVC4LiYuTC Vgr4CeN3QhnEidA29fiMfj B53lXYZtlIdnsK0reVwmyF 4jWjZmLgRiNGjdwFpxBD9u GODkM1dwpGTrWCVgGMFzK8 rwDbFypD4opApgKHxywnNk YERqOhd6FHCljKYfOFXyQo u0XDClBKRqI89rolvuVSP1 lW2xc6qxn5EgQTreROB0DV Bjq13bDJywkeT1JUadXl36 MDdmSyI4ANwtMVK3pS== CPT Code(s) (test code t7fgaVMrIBImcJI3QkQqGK = 3357) Ycn5tmn5VfvUTdzNTmQUlt uJSlezVczg47mYK0gQ67PY 9uPBPuIrD6GAYguvO4Yxd8 FGOsSHBnhMNwV793h0wit9 ugziOrtPU3aIeoLBXxSSNj YWluXGZzMjAgODgzMDUgeD NccGFyfQ== CLINICAL HISTORY (test v0nmhGMsEBGrvMX2TpSmYP code = 3356) Ysw1xqr3WsgWJtrBQnPSrx rAZnydCrfu23eCM7hQ40QA 6gLNNgEgK3CZVbmfI2Wzd4 CTUjIBYcnHZiS826v3lyx1 vriwVsrIB2zSmpLHBsHUCx XIfdPBScMlUmQRRvFXJ2sp nfDIPao8ZfI1nskDLtLVI4 wQGqPSWvEGRlgxAgNUC3nU 7jQBIbfq6= SPECIMEN SOURCE (test v5omcCSvVPFbkQH0WmJdGU code = 3377) Pao0rtn5OeqPXaoNKhTVpb xNIcjpLuhc38oMK9oC77CJ 1oBTEqQgW3CNDxqzY4Mrm8 VHIcGTSoyPCyT983l5ijl2 stpjOtmOR0pHmcLEOhNGJh TCzaTJOhKwLgUC7hBlrlAL VwofTpaO46ahPoioKixbss aHQgdXJldGVyYWwgdHVtb3 G8XVUzGYwyRdGgWgfcZZOn niD1NVuxGnVHWvTMm0Y8LU Rnn1DrVxhnNJIrmrJ5JLkf XHBhcn0= GROSS DESCRIPTION (test x6ovnXBkULJalFX3SpDuYK code = 3366) Gzf0xnd4NkmWNhuWWaMDhl bOQwgcJcvt28qTS6hL85GY 9eGSDnIqQ3FTFpjdO5Agi7 TTXiANHmvYCvH835j4uij6 twutAwsSB4bIdrYAYyNUQq JHjcWAJzKrZbC9TeR5kaFU 4gQSBpcyByZWNlaXZlZCBp uiImiZjtiJp9TTGdsjIeiG TwGWtmETB0nCMyIRKzSNYf PSHrIK19N9LkskGuQMmvoV VkaWNhbCByZWNvcmQgbnVt BlGbFWBhQSCeZSTsG35siW VkIGFzICJibGFkZGVyIHR1 fI3vDrQxsnAbJ67oe8jkoF Msk0SrdPSnmOahdRStxjBo XNVqh1ugFKArk0S8JOLwwe XekLMueTOucOEps0SjbK1k VGmbIYP2QFSzNBJ7UVAeTR HplB6aFNzxNGNrLUNbrRFn BVgmCZVglYBue4BbKDIyOM WrlJpoJI51oOitf0NtBebs f0QiI1ibqB7qJc9aWKlcmU ehu4UtMYQlJHwiLA02mlSh cmUgaWRlbnRpZmllZCBtZW MkrVWcxpgbGS07VWblIP1k EHutRY94KGKmOIrkCKMwM1 OqI0Q4HT3vCArzDKHgw2S7 ZSBmcmFnbWVudHMgYXJlIG WumFjfXEl2HHF9Xl2dhLGs ZCBpbnRvIEExIHRvIEEyIG FuZCByZXByZXNlbnRhdGl2 FRWvWMB0jL6neaFpZgD9eX GfSjyjn5EvG4odnGXsveQe s3NtkWy3tDBsFHcggT7eZL MuICBccGFyXHBhciBTcGVj kA5xwqWJPZqmPQDbY8Xcxc EvEUbmIFTlxST1gPUeTCOk ZCBsYWJlbGVkIHdpdGggdG pgUKBxyAplsuJhsnVvBK2l OTEbQHQsQ1OjVAFaA88cAJ PasQ7kDSNdPF0sKVZpv2xj ffS5MULjNIHtLkKnLKTtPQ IjHmjhaTH1HCrkZpHej7Gu xEBpMS7kPMTixlDjc9CmVD 9vUSYevSzekm03UP1phDgz h8UrVMGmKIvbQQ87hjB0xK S0CHgtUVFkFDJxyGSmkwEn umNwcRTlwWUicD6lvaZwh1 4iFWNnAEP2pTLveWFnXcMl M31wtuDzyQJlZO22sZLjgM sct5OwpUd1dRLdJOdyzA1j QjEuIFxwYXJccGFyIFNwZW NpbWVuIEMgaXMgcmVjZWl2 HYSllR5wSqw2MULtooUjVV 0wFIshCpMtUEAhj4v5lDS5 bGRyqJI3gPRpuWaxSH7jdF LaYJ4wIZwwQMehmhRjj5Ps QY36cTGwkrFtdeYqTHDwoV duYXRlZCBhcyAiYmxhZGRl dtKvjS8iq3gkx6EviHGqWX 0yWRWimdNmm0OoLG3rPLAw kJzxji22QD9tyVoza8UeJI AsQFduXV59DGLfCQLgfEPg TV57DTVpKOooLDpqLTJ4LG E2NJYauIGdj8qbgm5gNLdr UZXvm1U5LMXdypQckSRnfP BpcyBlbnRpcmVseSBzdWJt lGT2EJXiwI92kgCPWC1cXZ MQHn7yaWScwGKasU== MICROSCOPIC DESCRIPTION y8rizAGnQIZpoOA2NlXjRN (test code = 3371) Oai7qtf2DudNFxtIDjAXty jOCedhNrhv54kMG3xR35EW 1qOMVtWlA3RLHelhG3Wxb5 WFRbMNDyvJXnZ045d7jyw7 ewycDmzHU8lLewKRKtNSUb ICphGMDqBqLnQL2DNiJESY Tww2DqIUIaZQOjqk7= Gross assessment was [facility] performed at ([facility], Department = 2777) of Pathology, [address] [place] [address], Technical component was [facility] performed at ([facility], = 2778) Department of Pathology, [address] [place] [address], Professional component [facility] was performed at ([facility], Department code = 2779) of Pathology, [address] [place] [address], [facility] [id number] 10:04:00Surgical Pathology Report Case: [id number] Authorizing Provider: Sebas Huang, Collected: 10/25/2020 06:39 PM [facility] Received: 10/26/2020 07:45 AM [...] IS PRESENTMG/pl Signing Pathologist Direct Phone Line: [phone] signed by Ariana Victor MD on 10/27/2020 at 10:04 [id number] unspecified type, ureteral tumorA. Bladder clots and [...] entirely submitted into A1 to A2 and applications sales representative sections of the blood clot [...] entirely submitted into C1. MG/pl A-C: Performed [facility], Department of Pathology, [address] [place] [address], [facility], Department of Pathology, [address] [place] [address], [facility] of [facility], [address] [place] [address], [place] [facility] [id number] 05:29:00 Test Item Value Reference Range Interpretation Comments Sodium (test code = 139 meq/L 648-424 6643-2) Potassium (test code = 5.1 meq/L 3.6-5.5 2823-3) Chloride (test code = 102 meq/L 98-106 2074-0) CO2 (test code = 26 meq/L 2027-) BUN (test code = 32 mg/dL 10-26 H 3094-0) Creatinine (test code 9.44 mg/dL 0.5-1.2 H = 2160-0) Glucose (test code = 107 mg/dL 70-110 2345-7) Calcium (test code = 8.8 mg/dL 8.5-10.5 55024-8) EGFR (test code = 5 mL/min/1.73 [place] [address]-9) NOT ACCURATE CREATININE CLEARANCE IN PREDICTING GLOMERULAR FILTRATION RATE . ESTIMATED GFR I S NOT APPLICABLE FOR DIALYSIS PATIENTS. ТАТЬЯНА (test code = ТАТЬЯНА) 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 - [id number] ID - [id number] ID - cyxb18Zouncvpj ID - odhp61Mmwpildl ID - ugbl17Drcvhavp ID - vykf20Qlrdonxu ID - iehj37Fhicvkta ID - sweg79Rduqybos ID - fvwz11Ltnnhytz ID - dlki46Rchafyeu ID - axcp15Hbwwyfuo ID - qoea34Srlrczrz ID - [id number] Lab Interpretation Abnormal (test code = 83934-1) [facility] METABOLIC [id number] 05:29:00 Test Item Value Reference Range Interpretation [...] S 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 - [id number] ID - [id number] ID - mfuu42Yhvokzfw ID - qiqy03Nydxlndm ID - yolw88Spvjipuh ID - kmdi12Vcgholsu ID - snoq55Fdcopook ID - imjd17Zrsdrvzz ID - pznh02Fcahcglx ID - bbnw89Kmxoanqi ID - ldjd91Wejapjwl ID - xaeu60Hmsdfqvk ID - [id number] with platelet count + automated [id number] 05:09:00 Test Item Value Reference Range Interpretation Comments WBC (test code = 6690-2) 7.6 See_Comment [A utomated message] The system [email or web address] generated this result transmitted ref erence range: 4.0 - 10 .0 K/L. The refe rence range was not u sed to interpret this result as normal/abnor mal. RBC (test code = 789-8) 2.28 See_Comment L [Au tomated message] The system [email or web address] generated this result transmitted ref erence range: 4.20 - 5 .80 M/L. The refe rence range was not u sed to interpret this result as normal/abnor mal. MCHC (test code = 786-4) 31.3 See_Comment L [A utomated message] The system [email or web address] generated this result transmitted ref erence range: [...] See_Comment [Aut omated message] 777-3) The system [email or web address] generated this result transmitted ref erence range: 150 - 43 0 K/CU MM. The referen ce range was not u sed to interpret this result as normal/abnor mal. MPV (test code = 9.6 fL 6-11.5 73602-0) nRBC (test code = 413) 0 See_Comment [Aut omated message] The system [email or web address] generated this result transmitted ref erence range: [...] See_Comment [Aut omated message] 670) The system [email or web address] generated this result transmitted ref erence range: 1.80 - 8 .00 K/L. The refe rence range was not u sed to interpret this result as normal/abnor mal. # Lymphs (test code = 1.26 See_Comment L [Auto mated message] 414) The system [email or web address] generated this result transmitted ref erence range: 1.48 - 4 .50 K/L. The refe rence range was not u sed to interpret this result as normal/abnor mal. # Monos (test code = 0.84 See_Comment [Autom ated message] 415) The system [email or web address] generated this result transmitted ref erence range: 0.00 - 1 .30 K/L. The refe rence range was not u sed to interpret this result as normal/abnor mal. # Eos (test code = 416) 0.25 See_Comment [Au tomated message] The system [email or web address] generated this result transmitted ref erence range: 0.00 - 0 .50 K/L. The refe rence range was not u sed to interpret this result as normal/abnor mal. # Baso (test code = 417) 0.03 See_Comment [A utomated message] The system [email or web address] generated this result transmitted ref erence range: 0.00 - 0 .20 K/L. The refe rence range was not u sed to interpret this result as normal/abnor mal. Immature 1 % 0-0 H Granulocytes-Relative (test code = 2801) Lab Interpretation (test Abnormal code = 85667-8) [facility] W/PLT COUNT & AUTO [id number] 05:09:00 Test Item Value Reference Range Interpretation [...] (BEAKER) (test code = 2801) BASIC METABOLIC [id number] 05:21:00 Test Item Value Reference Range Interpretation [...] S 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 - LITOOperator ID - LITOOperator ID - LITOOperator ID - LITOOperator ID - LITOOperator ID - LITOOperator ID - LITOOperator ID - LITOOperator ID - LITOOperator ID - LITOOperator ID - LITOOperator ID - LITOOperator ID - LITOCBC W/PLT COUNT & AUTO [id number] 04:38:00 Test Item Value Reference Range Interpretation [...] (test code = 2801) Hepatitis B surface [id number] 17:58:00 Test Item Value Reference Range Interpretation Comments Hep B S Ab (test code <8.0 See_Comment [Auto mated = 74218-6) message] The system which generated this result transmit radha reference range : <8.0 mIU/mL. Th e reference range was not used to interpret this result as normal/abnormal . ТАТЬЯНА (test code = ТАТЬЯНА) 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 - DB Lab Interpretation Normal (test code = 96147-9) [facility] [id number] 17:58:00 Test Item Value Reference Range Interpretation Comments HEPATITIS B SURFACE ANTIBODY < mIU/mL <8.0 (BEAKER) (test code = 647) 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 - [id number] 13:35:00 Test Item Value Reference Range Interpretation Comments Potassium (test code = 4.2 meq/L 3.6-5.5 2823-3) ТАТЬЯНА (test code = ТАТЬЯНА) 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 - [id number] ID - [id number] ID - [id number] ID - [id number] Lab Interpretation (test Normal code = 94346-3) [facility] 13:35:00 Test Item Value Reference Range Interpretation Comments POTASSIUM (BEAKER) (test code = 4.2 meq/L 3.6-5.5 379) 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 - [id number] ID - [id number] ID - [id number] ID - [id number] BASIC METABOLIC [id number] 06:45:00 Test Item Value Reference Range Interpretation [...] S 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 - MITCHOperator ID - MITCHOperator ID - MITCHOperator ID - MITCHOperator ID - MITCHOperator ID - MITCHOperator ID - MITCHOperator ID - MITCHOperator ID - MITCHOperator ID - [id number] 06:44:00 Test Item Value Reference Range Interpretation Comments Phosphorus (test code = 5.9 mg/dL 2.5-4.5 H 2777-1) ТАТЬЯНА (test code = ТАТЬЯНА) 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 - MITCHOperator ID - MITCHOperator ID - MITCHOperator ID - STEVE Lab Interpretation Abnormal (test code = 71111-9) [facility] 06:44:00 Test Item Value Reference Range Interpretation Comments PHOSPHORUS (BEAKER) (test code = 5.9 mg/dL 2.5-4.5 H 604) 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 - MITCHOperator ID - MITCHOperator ID - MITCHOperator ID - [id number] (Hemogram only)2020-10-25 06:33:00 Test Item Value Reference Range Interpretation Comments WBC (test code = 6690-2) 10.6 See_Comment H [A utomated message] The system [email or web address] generated this result transmitted ref erence range: 4.0 - 10 .0 K/L. The refe rence range was not u sed to interpret this result as normal/abnor mal. RBC (test code = 789-8) 2.39 See_Comment L [Au tomated message] The system [email or web address] generated this result transmitted ref erence range: 4.20 - 5 .80 M/L. The refe rence range was not u sed to interpret this result as normal/abnor mal. MCHC (test code = 786-4) 31.0 See_Comment L [A utomated message] The system [email or web address] generated this result transmitted ref erence range: [...] code = 285 See_Comment [Aut omated message] 797-3) The system [email or web address] generated this result transmitted ref erence range: 150 - 43 0 K/CU MM. The referen ce range was not u sed to interpret this result as normal/abnor mal. MPV (test code = 9.8 fL 6-11.5 46612-4) nRBC (test code = 413) 0 See_Comment [Aut omated message] The system [email or web address] generated this result transmitted ref erence range: 0 - 0 /1 00 WBC. The refere nce range was not u sed to interpret this result as normal/abnor mal. Lab Interpretation (test Abnormal code = 15270-8) [facility] (HEMOGRAM ONLY)2020-10-25 06:33:00 Test Item Value [...] (test code = 413) Type and screen, [id number] 14:42:00 Test Item Value Reference Range Interpretation Comments ABO/RH AUTOMATED (BEAKER) (test O POSITIVE code = 2260) Ab Scrn (test code = 890-4) NEGATIVE [facility] [id number] 08:07:00 Test Item Value Reference Interpretation Comments [...] 13) >100,000 col/mL skin floraHepatitis B surface [id number] 15:09:00 Test Item Value Reference Range Interpretation Comments HBsAg Screen (test code Nonreactive Nonreactive = 5195-3) ТАТЬЯНА (test code = ТАТЬЯНА) 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 - [id number] Lab Interpretation (test Normal code = 39949-0) [facility] [id number] 15:09:00 Test Item Value Reference Range Interpretation Comments HEPATITIS B SURFACE ANTIGEN (2) Nonreactive Nonreactive (BEAKER) (test code = 2585) 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 - [id number] METABOLIC IFFGW8850-81-81 05:03:00 Test Item Value Reference Range Interpretation [...] S 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 - [id number] ID - [id number] ID - [id number] ID - [id number] ID - [id number] ID - [id number] ID - [id number] ID - [id number] ID - [id number] ID - [id number] ID - [id number] ID - [id number] ID - [id number] W/PLT COUNT & AUTO [id number] 04:56:00 Test Item Value Reference Range Interpretation [...] Xpert (test code = Negative, See Xpress 66858-8) external report SARS-CoV-2/F yuliet/RSV test for linked [...] Fact Sh eet for Healthcare Prov iders: https://www.[employer]/ Documents/Xpert %20Xpress %77EAOS-PvA-8-F yuliet-RSV/30 2-4508%20Rev.%2 0B%20HCP% 20Fact%20Sheet. pdf Fact Sheet for Healt hcare Patients: https://www.[employer]/ Documents/Xpert %20Xpress %19UYAI-ZbD-2-F yuliet-RSV/30 2-4507%20Rev.%2 0B%20Pati ent%20Fact%20Sh eet.pdf SARS-COV-2 SLSL Performed at:[facility] PERFORMING LAB [place] ylxyic1414 (test code = Shelton Nichols [address]53[address]-0) [place] [address] ph: [phone] [facility]-COV2/RT-PCR (HS & REF LABS)2020-10-23 00:12:00 Test Item Value Reference Range Interpretation Comments SARS-COV2/RT-PCR Negative Not Detected, Performanc e of the Xpert (test code = Negative, See Xpress 0672940) external report SARS-CoV-2/F yuliet/RSV test for linked [...] occ ur from improper specim en collection; shramaine lure to follow the starr mmended sample [...] sooner.Fact She et for Healthcare Prov iders: https://www.[employer]/ Documents/Xpert %20Xpress %79PGLC-JhP-7-F yuliet- 2-4508%20Rev.%2 0B%20HCP% 20Fact%20Sheet. pdfFact Sheet for Healt hcare Patients: https://www.[employer]/ Documents/Xpert %20Xpress %52JRGY-XqW-5-F - 2-4507%20Rev.%2 0B%20Pati ent%20Fact%20Sh eet.pdf SARS-COV-2 SLSL Performed at:[facility] PERFORMING LAB [place] [facility]kfx[facility]1477 (test code = Shelton Nichols 7843134) [place] [address] ph: [phone] CT, [id number] 22:34:00Unlisted Reason for Exam - Click Yes and Enter Reason Below->YesUnlisted Reason for Exam->known R ureteral tumor and r hydro, worsening R side pain, pt ESRD will dialyzeWill this procedure require oral contrast?->No [facility] 1945 Sex: MFINAL [...] 10/22/2020 22:34:38 CT abdomen pelvis with IV nbxuqaoy3657-35-55 22:34:00Interface, External Ris In - 10/22/2020 10:37 [...] Rodger Page MDReport Verified Date/Time: 10/22/2020 22:34:38 [facility] W/PLT COUNT & AUTO [id number] 21:18:00 Test Item Value Reference Range Interpretation [...] = 2801) CBC W/PLT COUNT & AUTO [id number] 12:53:00 Test Item Value Reference Range Interpretation [...] 0-0 H PERCENT (BEAKER) (test code = 2808) BASIC METABOLIC [id number] 12:49:00 Test Item Value Reference Range Interpretation [...] S 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 Lab Interpretation Normal (test code = 66697-0) [facility]aPT/SYER0638-54-51 12:44:00 Test Item Value Reference Range Interpretation Comments PROTIME (BEAKER) (test 11.0 seconds 9.3-12.0 Final Information code = 759) (Auto Output) INR (BEAKER) (test 0.99 See_Comment Final Inf ormation code = 370) (Auto Output) [Automated mess age] The system [employer] generated this result transmit radha reference range [...] 2.5-3.5 for patients with mechanical heart valves.CT, [id number] 08:58:00Unlisted Reason for Exam - Click Yes and Enter Reason Below->NoWill this procedure require oral contrast?->No [facility] : 1945 Sex: MFINAL [...] Juarez Verified Date/Time: 09/22/2020 08:58:10 Reading Location: [address] Consult Reading Room CT abdomen/pelvis without & with IV qtnelsgv4654-75-75 08:58:00 Interface, External Ris In - 09/22/2020 [...] Juarez MDReport Verified Date/Time: 09/22/2020 08:58:10 ReadingLocation: [facility] B1 C013X [facility] Consult Reading Room [facility]aMR, ABDOMEN, WITHOUT [id number] 15:11:00ESRD patientUnlisted Reason for Exam - Click Yes and Enter Reason Below->NoDeos the patient have an implanted electronic device?->No [facility] : 1945 Sex: MFINAL [...] Huizar Verified Date/Time: 09/02/2020 15:11:40 Reading Location: [facility] Diagnostic Imaging Reading Room - [place] [address] MR, PELVIS, WITHOUT [id number] 15:11:00ESRD patientUnlisted Reason for Exam - Click Yes and Enter Reason Below->NoDeos the patient have an implanted electronic device?->No [facility] : 1945 Sex: MFINAL [...] to postcholecystectomy biliary reservoir effect. Signed: [facility] Verified Date/Time: 09/02/2020 15:11:40 Reading Location: [facility] Diagnostic Imaging Reading Room - [place] [address] MR pelvis without IV hhvmxqfl2119-01-58 15:11:00Interface, External Ris In - 09/02/2020 3:13 [...] Huizar Verified Date/Time: 09/02/2020 15:11:40 Reading Location: [facility] Diagnostic Imaging Reading Room - [facility] F1 [facility] without IV neczqzla1391-55-43 15:11:00Interface, External Ris In - 09/02/2020 3:13 [...] Huizar Verified Date/Time: 09/02/2020 15:11:40 Reading Location: [facility] Diagnostic Imaging Reading Room [place] [address] [facility] CenterTISSUE [id number] 10:13:00Surgical Pathology Report Case: [id number] Authorizing Provider: Sebas Huang, Collected: 08/31/2020 12:53 PM OrderingLocation[facility] 05B Med/Surg Received: 08/31/2020 01:41 PM Pathologist: Ariana Victor MD Specimen: Bladder Tumor BLADDER TUMOR, TRANSURETHRAL RESECTION OF BLADDER: - 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 The specimen is entirely submitted into A1-A6. MG/ew Performed [facility], Department of Pathology, [address] [place] [address], [facility], Department of Pathology, [address] [place] [address], [facility] of [facility], [address] [place] [address], RZ, FLUORO, NON-SPECIFIC, UP TO 1 [id number] 12:50:00 Reason for exam:->Surgery [facility] : 1945 Sex: MFluoroscopic unit utilized for a procedure performed in the OR. No interpretation was requested. Refer to the operative report for findings. Refer to PACS for patient radiation dose information.FL fluoro non-specific up to 1 [id number] 12:50:00 Interface, External Ris In - 08/31/2020 12:55 PM CSTFluoroscopic unit utilized for a procedure performed in the OR. No interpretation was requested. Refer to the operative report for findings. Referto PACS for patient radiation dose information.[facility]2D Echo W/Doppler(CW/PW/Color) 2020-08-31 08:09:56Ejection FractionSLEH ECHO HEARTLAB MKCKESSON CPACSInterface, External Ris In - 08/31/2020 8:10 AM CSTTransthoracic Echocardiography Report (TTE) Demographics Patient Name JANEL LONDON Date of Study 08/29/2020 Gender Male Visit Number [id number] Race Unknown Room Number B531 Number Date of 1945 Referring Physician Age 75 year(s) Clay Artist [place] Najera Interpreting Humberto Reed Jr. MD [...] Gradient: 3.29 mmHg Estimated PASP: 42.39 mmHgCHI [facility] CenterComprehensive metabolic snvsi9415-15-10 06:56:00 Test Item Value Reference Range Interpretation Comments Protein, Total (test 6.7 See_Comment [Autom ated code = 2885-2) message] The system which generated this result transmitted reference range : 6.0 - 8.5 gm/dL . The reference range was not used to interpr et this result as normal/abnormal . Albumin (test code = 3.2 g/dL 3.5-5 L 41445-7) Alkaline Phosphatase 57 U/L 30-115 (test code = 6768-6) Total Bilirubin 0.4 mg/dL 0.1-1.2 (test code = 1975-2) Sodium (test code = 138 meq/L 489-128 4674-2) Potassium (test code 3.9 meq/L 3.6-5.5 = 2823-3) Chloride (test code 99 meq/L 98-106 = 2075-0) CO2 (test code = 26 meq/L 20-29 2028-9) BUN (test code = 30 mg/dL 10-26 H 3094-0) Creatinine (test 7.85 mg/dL 0.5-1.2 H code = 2160-0) Glucose (test code = 94 mg/dL 70-110 2345-7) Calcium (test code = 8.7 mg/dL 8.5-10.5 83977-5) AST (test code = 49 U/L 5-40 H 1920-8) ALT (test code = 55 U/L 5-50 H 1742-6) EGFR (test code = 7 mL/min/1.73 [place] [address]-7) m NOT ACCURATE CREATININE CLEARANCE IN PREDICTING GLOMERULAR FILTRATION RATE . ESTIMATED GFR I S NOT APPLICABLE FOR DIALYSIS PATIENTS. ТАТЬЯНА (test code = 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 - ТАТЬЯНА) LITOOperator ID - LITOOperator ID - LITOOperator ID - LITOOperator ID - LITOOperator ID - LITOOperator ID - LITOOperator ID - LITOOperator ID - LITOOperator ID - LITOOperator ID - LITOOperator ID - LITOOperator ID - LITOOperator ID - LITOOperator ID - LITOOperator ID - JUNITO Lab Interpretation Abnormal (test code = 96067-9) [facility]aCOMPREHENSIVE METABOLIC [id number] 06:56:00 Test Item Value Reference Range Interpretation [...] S 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 - LITOOperator ID - LITOOperator ID - LITOOperator ID - LITOOperator ID - LITOOperator ID - LITOOperator ID - LITOOperator ID - LITOOperator ID - LITOOperator ID - LITOOperator ID - LITOOperator ID - LITOOperator ID - LITOOperator ID - LITOOperator ID - LITOOperator ID - FFFDOwqphiovx1459-23-08 06:54:00 Test Item Value Reference Range Interpretation Comments Magnesium (test code = 2.1 mg/dL 1.5-3 50878-0) ТАТЬЯНА (test code = ТАТЬЯНА) 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 - LITOOperator ID - LITOOperator ID - LITOOperator ID - JUNITO Lab Interpretation (test Normal code = 75266-0) [facility] GardenaMAGNESIUM2021-03-09 06:54:00 Test Item Value Reference Range Interpretation Comments MAGNESIUM (BEAKER) (test code = 2.1 mg/dL 1.5-3.0 627) 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 - LITOOperator ID - LITOOperator ID - LITOOperator ID - LITOCBC W/PLT COUNT & AUTO ROETSHQGCREA3922-12-32 06:31:00 Test Item Value Reference Range Interpretation [...] PERCENT (BEAKER) (test code = 2801) Lipid tvvqr0619-73-39 06:03:00 Test Item Value Reference Range Interpretation Comments Triglycerides (test 125 mg/dL code = 2571-8) Cholesterol (test code 92 mg/dL = 2093-3) HDL (test code = 27 mg/dL 2085-9) LDL Calculated (test 40 mg/dL code = 46743-2) ТАТЬЯНА (test code = ТАТЬЯНА) Triglyceride Reference Range: Low Risk <150 Borderline 150-199 High Risk 200-499 Very High Risk >=500 Cholesterol Reference Range: Low Risk <200 Borderline 200-239 High Risk >240 HDL Cholesterol Reference Range: Low Risk >=60 High Risk <40 LDL Cholesterol Reference Range: Optimal <100 Near Optimal 100-129 Borderline 130-159 High 160-189 Very High >=190 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 - [id number] ID - FVVX52Sczgxpsj ID - DALX62Yveilaxq ID - RAOZ75Ckufhoqk ID - CFAS55Spceodkf ID - [id number] [facility] GardenaLIPID BOESU0520-76-93 06:03:00 Test Item Value Reference Range Interpretation [...] Borderline 130-159 High 160-189 Very High >=190 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 - [id number] ID - PXBG49Vkenpanq ID - SZCF14Jmorslnd ID - PJIC50Uvhjizev ID - WYVK72Oosczhkm ID - [id number] W/PLT COUNT & AUTO [id number] 05:38:00 Test Item Value Reference Range Interpretation [...] H PERCENT (BEAKER) (test code = 2801) [id number] 19:47:00 Test Item Value Reference Range Interpretation Comments PSA (test code = 2857-1) 4.9 ng/mL 0-4 H ТАТЬЯНА (test code = ТАТЬЯНА) 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 - [id number] Lab Interpretation (test Abnormal code = 63803-0) [facility] GardenaPSA2021-03-07 19:47:00 Test Item Value Reference Range Interpretation Comments PROSTATE SPECIFIC ANTIGEN (BEAKER) 4.9 ng/mL 0.0-4.0 H (test code = 844) 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 - [id number] 18:56:00 Test Item Value Reference Range Interpretation Comments Ferritin (test code = 4479.50 ng/mL 22-322 H 2276-4) ТАТЬЯНА (test code = ТАТЬЯНА) 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 - [id number] ID - [id number] Lab Interpretation (test Abnormal code = 25155-9) [facility]aFERRITIN2021-03-07 18:56:00 Test Item Value Reference Range Interpretation Comments FERRITIN (BEAKER) (test code = 4479.50 ng/mL 22.00-322.00 H 361) 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 - [id number] ID - LGHGSTO660Eblprjr [id number] 18:33:00 Test Item Value Reference Range Interpretation Comments Vitamin B12 (test code = 919 pg/mL 211-911 H 2132-9) ТАТЬЯНА (test code = ТАТЬЯНА) 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 - [id number] Lab Interpretation (test Abnormal code = 98623-3) [facility] GardenaVITAMIN [id number] 18:33:00 Test Item Value Reference Range Interpretation Comments VITAMIN B12 (BEAKER) (test code = 919 pg/mL 211-911 H 774) 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 - [id number], uidw5558-14-72 18:25:00 Test Item Value Reference Range Interpretation Comments Free T4 (test code = 0.90 ng/dL 0.9-1.8 3024-7) ТАТЬЯНА (test code = ТАТЬЯНА) 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 - [id number] Lab Interpretation (test Normal code = 23096-6) [facility] GardenaT4, [id number] 18:25:00 Test Item Value Reference Range Interpretation Comments FREE T4 (BEAKER) (test code = 655) 0.90 ng/dL 0.90-1.80 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 - [id number] 18:22:00 Test Item Value Reference Range Interpretation Comments TSH (test code = 5.480 See_Comment [Automated 23904-1) message] The system which generated this result transmit radha reference range : 0.350 - 5.500 uIU/mL. The reference range was not used to interpret this result as normal/abnormal . ТАТЬЯНА (test code = ТАТЬЯНА) 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 - [id number] Lab Interpretation Normal (test code = 71504-1) [facility] GardenaTSH2021-03-07 18:22:00 Test Item Value Reference Range Interpretation Comments THYROID STIMULATING HORMONE 5.480 uIU/mL 0.350-5.500 (BEAKER) (test code = 772) 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 - [id number]/S, RENAL, NSHFVULE6457-89-44 12:08:00Please include bladderReason for exam:->hematuria, history of polycystic kidney diseaseShould this be performed at the bedside?->Yes [facility] : 1945 Sex: MFINAL [...] Machado Verified Date/Time: 08/29/2020 12:08:20 Reading Location: [facility] B1 C013W ConsultReading Room US renal vafdzpsj7265-01-60 12:08:00Interface, External Ris In - 08/29/2020 12:19 [...] MDRarturoort Verified Date/Time: 08/29/2020 12:08:20 Reading Location: [facility] B1 C013W Consult Reading Room [facility]HEPAT[facility] SURFACE ANTIBODY 2020-08-29 11:42:00 Test Item Value Reference Range Interpretation Comments HEPATITIS B SURFACE ANTIBODY < mIU/mL <8.0 (BEAKER) (test code = 647) 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 - FER MReticulocyte johbl7466-32-86 11:03:00 Test Item Value Reference Range Interpretation Comments % Retic (test code = 84694-6) 1.8 % 0.4-2.9 Lab Interpretation (test code = Normal 22039-7) [facility] GardenaRETICULOCYTE TGKYQ6930-04-35 11:03:00 Test Item Value Reference Range Interpretation Comments RETICULOCYTE COUNT PCT (BEAKER) (test 1.8 % 0.4-2.9 code = 575) Troponin [id number] 05:52:00 Test Item Value Reference Range Interpretation Comments Troponin I (test code = 0.22 ng/mL 0-0.15 HH [address]-9) ТАТЬЯНА (test code = ТАТЬЯНА) Troponin I [...] ZRES04 Lab Interpretation (test Abnormal code = 30031-6) [facility] GardenaTROPONIN [id number] 05:52:00 Test Item Value Reference Range Interpretation [...] failure, acidosis, acute neurological disease, and persistent tachyarrhythmia.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 - [id number] METABOLIC NHUFY2545-15-69 05:32:00 Test Item Value Reference Range Interpretation [...] S 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 - [id number] ID - IPCB89Fokbprto ID - OQQY94Vjqswnov ID - ZQWB58Tcxijlng ID - WDVW09Vnuffhln ID - GJDK31Siucktyu ID - VGVT54Thsiasai ID - DAGH33Zgmydmrs ID - TPCE59Ncppjplx ID - RJSD60Avblgamz ID - ZQFL91Amjkqifm ID - SWZB36Adkaqryc ID - PMXW74GX, BRAIN, WITHOUT EMBDLGZT7280-18-09 05:08:00Unlisted Reason for Exam - Click Yes and Enter Reason Below->YesUnlisted Reason for Exam->amsCH[facility] : 1945 Sex: MFINAL REPORT [...] Yessenia Perez MDReport Verified Date/Time: 08/29/2020 05:08:18 [facility] without IV avsmylsa5533-96-15 05:08:00Interface, External Ris In - 08/29/2020 5:11 [...] Yessenia Perez MDReport Verified Date/Time: 08/29/2020 05:08:18 [facility] W/PLT COUNT & AUTO [id number] 04:50:00 Test Item Value Reference Range Interpretation [...] (BEAKER) (test code = 2801) Occult blood, [id number] 03:55:00 Test Item Value Reference Range Interpretation Comments Occult blood (test code = 2335-8) Negative Negative Lab Interpretation (test code = Normal 81564-9) [facility]aOCCULT BLOOD, [id number] 03:55:00 Test Item Value Reference Range Interpretation Comments FECAL OCCULT BLOOD (BEAKER) (test Negative Negative code = 618) HEPATITIS B SURFACE [id number] 17:43:00 Test Item Value Reference Range Interpretation Comments HEPATITIS B SURFACE ANTIGEN (2) Nonreactive Nonreactive (BEAKER) (test code = 2585) 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 - CINTHIA S2200-09-23 16:41:00 Test Item Value Reference Range Interpretation [...] failure, acidosis, acute neurological disease, and persistent tachyarrhythmia.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 - HARMAN X1989-86-03 09:49:00 Test Item Value Reference Range Interpretation [...] failure, acidosis, acute neurological disease, and persistent tachyarrhythmia.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 - RAHMABASIC METABOLIC PANEL 2020-08-28 07:01:00 [...] S 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 - [id number] ID - ISNE08Dbzqjbtw ID - EWLG71Vporsrmt ID - CPDQ41Ezeyaecx ID - YGPL96Dccevsdi ID - MWWC83Ayucuugf ID - HQHY79Icrvitpa ID - ETYG83Ddsttpcq ID - ADYP12Swlvyloq ID - CECY85Merslllb ID - YZEE31Bshcfnpt ID - NKEE32Iqtkceci ID - NZQI71RFE W/PLT COUNT & AUTO [id number] 06:29:00 Test Item Value Reference Range Interpretation [...] PERCENT (BEAKER) (test code = 2801) Prothrombin time/GFJ4375-08-52 02:15:00 Test Item Value Reference Interpretation Comments [...] valves. Lab Interpretation Abnormal (test code = 82041-6) [facility] GardenaPROTHROMBIN TIME/[id number] 02:15:00 Test Item Value Reference Range Interpretation Comments PROTIME (BEAKER) 12.4 seconds 9.3-12.0 H Final Infor mation (test code = 759) (Auto Outp ut) INR (BEAKER) (test 1.12 See_Comment Final Inf ormation code = 370) (Auto Output) [Automated mess age] The system [facility] h generated this result transmitted ref erence range: <=5.90. The reference range was not used to int erpret this result as normal/abnormal . RECOMMENDED COUMADIN/WARFARIN INR THERAPY RANGESSTANDARD DOSE: 2.0 - 3.0 Includes: PROPHYLAXIS forvenous thrombosis, systemic embolization; TREATMENT for venous thrombosis and/or pulmonary embolus.HIGH RISK: Target INR is 2.5-3.5 for patients with mechanical heart valves.COMPREHENSIVE METABOLIC [id number] 02:11:00 Test Item Value Reference Range Interpretation [...] S 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 - [id number] ID - ZDUK00Opamfixc ID - WPXJ78Kujcmbgg ID - NQAD85Cunjqcll ID - IUTA51Rwuqwbrk ID - JMUN65Vzaieaci ID - TIIR21Srmuyhxx ID - NNPC23Swsdvpub ID - AGAO67Zspqawie ID - MBZN30VPIEP [id number] 02:10:00 Test Item Value Reference Range Interpretation [...] Borderline 130-159 High 160-189 Very High >=190 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 - [id number] ID - OPAJ35Dwxmsmfr ID - [id number] Urinalysis w/Microscopic + Reflex to Pqsyklk8754-81-03 02:09:00 Test Item Value Reference Range Interpretation Comments Color, UA (test code = Red 5778-6) Clarity, UA (test code Turbid = 5767-9) Specific [place], UA 1.020 1.001-1.035 (test code = 5811-5) pH, UA (test code = 8.5 5.0-8.0 H 5803-2) Protein, UA (test code >=300 mg/dL Negative A = 17707-5) Glucose, UA (test code 100 mg/dL Negative A = 365) Ketones, UA (test code 15 mg/dL Negative A = 2514-8) Bilirubin, UA (test Positive Negative A code = 44159-0) Blood, UA (test code = Large Negative A 86427-6) Nitrite, UA (test code Positive Negative A = 5802-4) Leukocytes, UA (test Large Negative A code = 5799-2) Urobilinogen, UA (test >=8.0 0.2-1 H code = 64318-3) Bacteria, UA (test code Moderate = 32255-9) RBC, UA (test code = >100 See_Comment [Autom ated 799-7) message] The sy stem which generated this result transmitted reference range : /HPF. The refer ence range was not u sed to interpret th is result as normal/abnormal . WBC, UA (test code = 10-20 See_Comment [Autom ated 30304-7) message] The sy stem which generated this result transmitted reference range : /HPF. The refer ence range was not u sed to interpret th is result as normal/abnormal . SQUAMOUS EPITHELIAL 5-10 See_Comment [Automa radha (test code = 49168-7) messag e] The system which generated this result transmitted reference range : /HPF. The refer ence range was not u sed to interpret th is result as normal/abnormal . Specimen Source (test code = 2795) Lab Interpretation Abnormal (test code = 01326-3) [facility]AL[facility] W/ REFLEX URINE [id number] 02:09:00 Test Item Value Reference Range Interpretation [...] SOURCE(BEAKER) (test code = 2795) Hepatic function pcyyt2839-04-88 02:07:00 Test Item Value Reference Range Interpretation Comments Protein, Total (test 6.5 See_Comment [Autom ated code = 2885-2) message] The system which generated this result transmit radha reference range : 6.0 - 8.5 gm/dL . The reference range was not u sed to interpret th is result as normal/abnormal . Albumin (test code = 3.1 g/dL 3.5-5 L 82249-3) Total Bilirubin (test 0.5 mg/dL 0.1-1.2 code = 1975-2) Bilirubin, Direct 0.3 mg/dL 0-0.4 (test code = 1968-7) Alkaline Phosphatase 56 U/L 30-115 (test code = 6768-6) AST (test code = 35 U/L 5-40 1920-8) ALT (test code = 30 U/L 5-50 1742-6) ТАТЬЯНА (test code = ТАТЬЯНА) 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 - [id number] ID - EXOO76Wuybcald ID - YEZT16Jsyffmzk ID - MSRI85Deuytrrz ID - JZAH75Gizhkmut ID - YLFP27Gvlcqpnd ID - [id number] Lab Interpretation Abnormal (test code = 86539-2) [facility] GardenaHEPATIC FUNCTION [id number] 02:07:00 Test Item Value Reference Range Interpretation [...] (test code = 30 U/L 5-50 347) 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 - [id number] ID - AEXQ10Hpzjkhwq ID - ZSEQ85Kcvgabbk ID - ZYEY37Nwnqvbib ID - [id number] ID - [id number] ID - [id number] A1c 2020-08-28 01:48:00 Test Item Value Reference Range Interpretation Comments Hemoglobin A1C (test code 4.8 % 4.3-6.1 = 4548-4) ТАТЬЯНА (test code = ТАТЬЯНА) 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 - [id number] Lab Interpretation (test Normal code = 64349-7) [facility] [id number] 01:48:00 Test Item Value Reference Range Interpretation Comments HEMOGLOBIN A1C (BEAKER) (test code = 4.8 % 4.3-6.1 368) 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 - [id number] 01:42:00 Test Item Value Reference Range Interpretation Comments MAGNESIUM (BEAKER) (test code = 2.2 mg/dL 1.5-3.0 627) 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 - [id number] ID - [id number] ID - [id number] ID - [id number] 01:39:00 Test Item Value Reference Range Interpretation Comments PHOSPHORUS (BEAKER) (test code = 5.0 mg/dL 2.5-4.5 H 604) 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 - [id number] W/PLT COUNT & AUTO [id number] 01:37:00 Test Item Value Reference Range Interpretation [...] H PERCENT (BEAKER) (test code = 2801) [id number] 00:00:00Ordered by an unspecified provider.[facility] 14:11:47WeRafael shea CRNA 07/29/2020 8:12 AMAirway Date/Time: [...] RSI: No Number of Attempts at Approach: 1[facility] CenterPotassium, [id number] 13:20:20 Test Item Value Reference Range Interpretation Comments Potassium, syringe See_Comment [Automat ed message] The (test code = 2007) [facility] generated this result tra nsmitted reference range : 3.5 - 5.0 mEq/L. The refe rence range was not used to interpret this result as normal/abnormal . [facility]OVID[facility] qualitative [id number] 04:42:40 Test Item Value Reference Range Interpretation Comments Interpretation (test code = 0041914) COVID-19 qualitative RT-PCR Not-Detected Not-Detected result (test code = 75538-0) COVID-19 qualitative RT-PCR See link below for (test code = 7070) PDF Lab Report [facility] Pre/Post [id number] 00:59:42 Test Item Value Reference Range Interpretation Comments Ventricular rate (test code = 253) Atrial rate (test code = 255) MN interval (test code = 266) QRSD interval [...] of 08-JUL-2014 11:47,-No significant change was found- [facility] [id number] 11:07:00Surgical Pathology Report Case: [id number] Authorizing Provider: Bin Acevedo, Collected: 02/12/2020 09:33 AM OrderingLocation: [facility] Received: 02/12/2020 10:58 AM PERIOPERATIVE SERVICES Pathologist: Carlos Betancourt MD Specimen: Carotid, Left, LEFT CAROTID PLAQUE ARTERY, LEFT CAROTID, ENDARTERECTOMY:CALCIFIC ATHEROSCLEROTIC PLAQUE Signing Pathologist Direct Phone Line: [phone] signed by Carlos Betancourt MD on 02/17/2020 at 11:07 [id number]; [id number] carotid stenosis Carotid, LeftA. Received fresh labeled with the patient's name, medical record number and "parotid, left" is a previously incised portion of yellow plaque measuring 1.6 cm in length and 0.8 cm in diameter. Specimen is serially sectioned to reveal calcifications measuring up to 0.2 cm in thickness. Harvest Worker Field Crop sections are submitted in A1, following decalcification.SATISH Madrid PA ([facility])PerformedHEPATITIS B SURFACE [id number] 14:11:00 Test Item Value Reference Range Interpretation Comments HEPATITIS B SURFACE ANTIGEN (2) Nonreactive Nonreactive (BEAKER) (test code = 2585) Specimen is considered negative for HBsAg.POCT-GLUCOSE [id number] 13:03:00 Test Item Value Reference Range Interpretation Comments POC-GLUCOSE METER 83 mg/dL 70-110 : TESTED A T [facility] 6720 (BEAKER) (test code = [facility] R [facility], 1538) [address]: 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/Techni justus ID = [id number] for JOIE ROE [id number] 06:30:00 Test Item Value Reference Range Interpretation Comments ACTIVATED CLOTTING TIME 235 sec : 74 -137 seconds, (BEAKER) (test code = Baseli ne: TESTED AT 441) [facility] 67[address] [facility], 770 30: 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/Techni justus ID = [id number] for DON FARLEY BASIC METABOLIC [id number] 06:01:00 Test Item Value Reference Range Interpretation [...] S 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 - PIAYA LPOCT-GLUCOSE [id number] 06:00:00 Test Item Value Reference Range Interpretation Comments POC-GLUCOSE METER 94 mg/dL 70-110 : TESTED Lg T [facility] 6720 (BEAKER) (test code = RADHA Chowdhury [place], 1538) [address]: 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/Techni justus ID = [id number] for Aren Cheatham [id number] 05:49:00 Test Item Value Reference Range Interpretation Comments MAGNESIUM (BEAKER) (test code = 1.9 mg/dL 1.6-2.6 627) 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 - LIAM [id number] 05:31:00 Test Item Value Reference Range Interpretation Comments CORTISOL, TOTAL (BEAKER) (test code 8.3 ug/dL 3.7-19.4 = 2755) 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 - [id number] (HEMOGRAM ONLY)2020-02-13 03:06:00 Test [...] (test code = 413) TSH/FREE T4 IF [id number] 02:45:00 Test Item Value Reference Range Interpretation Comments THYROID STIMULATING HORMONE 4.682 uIU/mL 0.350-4.940 (BEAKER) (test code = 772) 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 - PICITLALY LPOCT-GLUCOSE [id number] 00:32:00 Test Item Value Reference Range Interpretation Comments POC-GLUCOSE METER 82 mg/dL 70-110 : TESTED A T [facility] 6720 (BEAKER) (test code = RADHA [place], 1538) [address]: 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/Techni justus ID = [id number] for Aren Cheatham BLOOD GAS, [id number] 18:26:00 Test Item Value Reference Range Interpretation [...] code = 1819) 21.0 % COMPREHENSIVE METABOLIC [id number] 18:16:00 Test Item Value Reference Range Interpretation [...] S 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 - [id number] 18:14:00 Test Item Value Reference Range Interpretation Comments MAGNESIUM (BEAKER) (test code = 1.8 mg/dL 1.6-2.6 627) 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 - NTPCALCIUM, [id number] 18:02:00 Test Item Value Reference Range Interpretation Comments CALCIUM IONIZED (BEAKER) (test 1.14 mmol/L 1.12-1.27 code = 698) PH, BLOOD (BEAKER) (test code = 7.32 1810) [id number] 18:01:00 Test Item Value Reference Range Interpretation [...] (BEAKER) (test code = 413) BLOOD GAS, [id number] 10:37:00 Test Item Value Reference Range Interpretation [...] 1819) 60.0 % HGB/HCT (H&H) - STAT [id number] 10:37:00 Test Item Value Reference Range Interpretation Comments HEMOGLOBIN (BEAKER) (test code = 9.2 g/dL 13.0-16.8 L 410) HEMATOCRIT (BEAKER) (test code = 27.0 % 40.0-50.0 L 411) GLUCOSE-STAT [id number] 10:36:00 Test Item Value Reference Range Interpretation Comments GLUCOSE RANDOM (BEAKER) (test code 104 mg/dL 70-110 = 652) SODIUM NA-STAT [id number] 10:36:00 Test Item Value Reference Range Interpretation Comments SODIUM (BEAKER) (test code = 381) 137 meq/L 136-145 POTASSIUM-STAT [id number] 10:36:00 Test Item Value Reference Range Interpretation Comments POTASSIUM (BEAKER) (test code = 4.0 meq/L 3.6-5.5 379) SARS-COV2/RT-PCR ([facility])2020-02-12 08:04:00 Test Item Value Reference Range Interpretation Comments SARS-COV2/RT-PCR (test code Negative Not Detected, Negative, = 8477553) See external report for linked test SARS-COV-2 PERFORMING LAB [facility] (test code = 1436839) Negative results do not preclude SARS-CoV-2 infection [...] of the Act.Fact Sheet for Healthcare Pro viders:https://www.[employer]Way/Documents/Xpert%20Xpress%20SARS%20CoV-2/Fact%20Sh eets/302-3802%93QVEK-XST-1%20HEALTHCARE%20PROVIDERS%20FACT%20SHEET.pdfFact Sheet for Healthcare Patients:https://www.Cashflowtuna.com.[employer]/Documents/Xpert%20Xpress%20SARS%20CoV-2/Fact%20Sheets/302-3801%20SARS-COV -2%20PATIENT%20FACT%20SHEET.pdfPerforming Laboratory:[place] [address], [place] [address]IKPEM METABOLIC [id number] 07:28:00 Test Item Value Reference Range Interpretation [...] S 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 - [id number] W/PLT COUNT & AUTO [id number] 07:21:00 Test Item Value Reference Range Interpretation [...] code = 2801) HGB/HCT (H&H) - STAT [id number] 06:45:00 Test Item Value Reference Range Interpretation Comments HEMOGLOBIN (BEAKER) (test code = 11.3 g/dL 13.0-16.8 L 410) HEMATOCRIT (BEAKER) (test code = 33.0 % 40.0-50.0 L 411) GLUCOSE-STAT [id number] 06:42:00 Test Item Value Reference Range Interpretation Comments GLUCOSE RANDOM (BEAKER) (test code 103 mg/dL 70-110 = 652) POTASSIUM-STAT [id number] 06:42:00 Test Item Value Reference Range Interpretation Comments POTASSIUM (BEAKER) (test code = 4.8 meq/L 3.6-5.5 379) POCT-GLUCOSE [id number] 05:51:00 Test Item Value Reference Range Interpretation Comments POC-GLUCOSE METER 108 mg/dL 70-110 : TESTED A T [facility] 6720 (BEAKER) (test code [facility], = 1538) [address]: 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/Techni justus ID = [id number] for JORD AN, LACRYSTAL
--- NOTE | 2021-07-31 22:09 | RAD REPORT ---
EXAM DESCRIPTION: CT - Head Brain Wo Cont - 07/31/2021 9:57 pm CLINICAL HISTORY: WEAKNESS Headache, drowsiness COMPARISON: Head Brain Wo Cont dated 08/27/2020; CT HEAD BRAIN WWO CONTRAST dated 08/15/2010 TECHNIQUE: All CT scans are performed using dose optimization technique as appropriate and may inclu de automated exposure control or mA/KV adjustment according to patient size. FINDINGS: No intracranial hemorrhage, hydrocephalus or extra-axial fluid collection.Mild generalized brain atrophy is present with mild periventricular and deep white matter chronic microvascular ische joel changes.No areas of brain edema or evidence of midline shift. 8 mm right anterior periventricular hypodensity. The paranasal sinuses and mastoids are clear. The calvarium is intact. IMPRESSION: No acute intracranial abnormality. 8 mm right anterior periventricular hypodensity noted. This may be related to subacute or chronic isc hemia. Consider follow-up MRI brain for further evaluation.
--- NOTE | 2021-07-31 22:21 | RAD REPORT ---
EXAM DESCRIPTION: RAD - Chest Single View - 07/31/2021 10:07 pm CLINICAL HISTORY: COUGH Chest pain. COMPARISON: Chest Pa And Lat (2 Views) dated 06/01/2021; Chest Single View dated 02/20/2021; Chest Sin gle View dated 02/18/2021; Chest Pa And Lat (2 Views) dated 01/27/2021 FINDINGS: Portable technique limits examination quality. Moderate bilateral pulmonary opacities are present which may represent pneumonia or pulmonary edema. The heart is mildly enlarged in size. No displaced fractures.Stent material is present medial left ar m.
[2021-07-31 22:27] LABS: Absolute Lymphocytes (CBC) 1.3 K/uL (0.7-4.9); Lymphocytes % 12.8 % (15.3-44.8); RBC Red Blood Cell Count 3.59 M/uL (4.33-5.43)
[2021-07-31 22:35] LABS: Protime INR 2.22
[2021-07-31 23:22] LABS: Blood Morphology Comment NOTED (NOT SEEN)
[2021-07-31 23:23] LABS: Platelet Estimate ADEQ; Teardrop Cell 2+
[2021-07-31 23:30] LABS: SARS-COV-2 RT PCR POSITIVE (NEGATIVE)
--- NOTE | 2021-07-31 23:34 | ER ---
Nurse's Notes [facility] Name: Robbie Kelly Age: 76 yrs Sex: Male : 1945 Arrival Date: 07/31/2021 Time: 21:14 Bed 17 Private MD: Diagnosis: Weakness;SARS-associated coronavirus as the cause of diseases classified elsewhere;Bandemia Presentation: 07/31 21:21 Chief complaint: Patient states: " I am just weak, and I usually just have pain all as6 over." EMS states: " He is weak all over, his said when he gets like this she cannot take care of him so she wanted him to come up to the hospital to get checked out.". Coronavirus screen: Vaccine status: Patient reports receiving the 2nd dose of the covid vaccine. 3 with moderna. Ebola Screen: Patient negative for fever greater than or equal to 101.5 degrees Fahrenheit, and additional compatible Ebola Virus Disease symptoms Patient denies exposure to infectious person. Patient denies travel to an Ebola-affected area in the 21 days before illness onset. Initial Sepsis Screen: Does the patient meet any 2 criteria? No. Patient's initial sepsis screen is negative. Does the patient have a suspected source of infection? No. Patient's initial sepsis screen is negative. Risk Assessment: Do you want to hurt yourself or someone else? Patient reports no desire to harm self or others. Onset of symptoms is unknown. 21:21 Method Of Arrival: EMS: [facility] as6 21:21 Acuity: DADA 3 as6 Triage Assessment: 21:33 General: Appears in no apparent distress. Behavior is calm, cooperative, appropriate tw5 for age. Pain: Complains of pain in " all over" Pain currently is 7 out of 10 on a pain scale. Historical: - Allergies: 21:33 No Known Allergies; tw5 - Home Meds: 21:33 Eliquis 2.5 mg oral tab 1 tab 2 times per day [Active]; amiodarone 400 mg Oral tab 1 tw5 tab once daily [Active]; atorvastatin 40 mg oral tab 1 tab once daily [Active]; carvedilol 3.125 mg oral tab 1 tab [Active]; furosemide 20 mg Oral tab 1 tab 2 times per day [Active]; hydroxyzine HCl 25 mg Oral tab 1 tab 3 times per day [Active]; levothyroxine 88 mcg cap 1 cap once daily [Active]; prednisone 10 mg Oral tab once daily [Active]; Aileen-Shari 0.8 mg oral tab [Active]; budesonide inhalation [Active]; sevelamer carbonate 800 mg oral tab 1 tab 3 times per day [Active]; - PMHx: 21:33 Anemia; Bladder CA; COPD; Dialysis; M,W,F; Hypertension; Hypothyroidism; POLYCYSTIC tw5 KIDNEY DISEASE; RENAL FAILURE; - Immunization history:: Flu vaccine is up to date. - Social history:: Smoking status: Patient/guardian denies using tobacco, the patient reports quitting approximately 6 years ago. Screenin:39 Abuse screen: Denies threats or abuse. Denies injuries from another. tw5 21:47 Nutritional screening: No deficits noted. Tuberculosis screening: No symptoms or risk lg3 factors identified. Fall Risk IV access (20 points). Gait- Weak (10 pts.). Assessment: 21:47 General: Appears in no apparent distress. comfortable, Behavior is calm, cooperative. lg3 Pain: Denies pain. Neuro: No deficits noted. Level of Consciousness is awake, alert, obeys commands, Oriented to person, place, time, situation. Cardiovascular: No deficits noted. Capillary refill < 3 seconds JVD is absent Patient's skin is warm and dry. Respiratory: No deficits noted. Reports 3L via NC at home Airway is patent Trachea midline Respiratory effort is even, unlabored, Respiratory pattern is regular, symmetrical. GI: No deficits noted. No signs and/or symptoms were reported involving the gastrointestinal system. Abdomen is round non-distended. : No deficits noted. No signs and/or symptoms were reported regarding the genitourinary system. EENT: No deficits noted. No signs and/or symptoms were reported regarding the EENT system. Derm: No deficits noted. No signs and/or symptoms reported regarding the dermatologic system. Skin is intact, is healthy with good turgor, Skin is dry. Musculoskeletal: No deficits noted. No signs and/or symptoms reported regarding the musculoskeletal system. Circulation, motion, and sensation intact. Range of motion: intact in all extremities. 08/01 00:50 General: I recv'd the pt from the "trauma hallway" to room 17. He is dtv, given that he emili just received the lasix, per report. The F/C is "on hold", pending if he is able to void. He was placed on the monitor. We are awaiting the Cefepime from another floor and it will be given magda. The pt is pleasant and talkative. He is in NAD. . 00:54 General: The pt acknowledged understanding of using the urinal, as soon as he feels the emili urge, so he doesn't get uncomfortable. . 01:42 General: The pt is having his US of his carotid arteries at this time. He is still emili adamant that he doesn't want a thompson. He says that he is still not uncomfortable and "believes" he can void. I have encouraged him to reconsider. . 03:10 General: The pt still has not produced enough urine for testing. There is a scant emili amount of urine in the tubing. I will continue to monitor. The pt is resting well. . 03:13 General: The pt was placed in a brief, as he was in a "pull-up", that was removed when emili the F/C was placed. I asked his permission before doing this and he agreed. We also talked about how tight his "pull-up" was and it had made conte into his skin, due to it being so restrictive. . Vital Signs: 07/31 21:21 BP 93 / 68; Pulse 111; Resp 20; Temp 99.3(O); Pulse Ox 97% on 3 lpm NC; Weight 83.91 as6 kg; Height 5 ft. 10 in. (177.80 cm); Pain 7/10; 22:26 BP 119 / 65; Pulse 98; Resp 22 S; Pulse Ox 99% on R/A; as6 07 00:50 BP 111 / 90; Pulse 104; Resp 18; Temp 97.2(TE); Pulse Ox 97% on 2 lpm NC; Pain 0/10; emili 01:45 BP 107 / 77; Pulse 94; Resp 18; Pulse Ox 99% on 2 lpm NC; Pain 0/10; emili 02:19 BP 112 / 82; Pulse 90; Resp 18; Pulse Ox 99% on 2 lpm NC; Pain 0/10; emili 03:12 BP 91 / 65; Pulse 106; Resp 16; Pulse Ox 99% on 2 lpm NC; Pain 0/10; emili 04:30 BP 139 / 121 LA Supine (auto/reg); Pulse 101 MON; Resp 13 S; Pulse Ox 96% on R/A; emili 07/31 21:21 Body Mass Index 26.54 (83.91 kg, 177.80 cm) as6 ED Course: 07/31 01:00 Patient placed on droplet and contact precautions with eye protection. emili 21:14 Patient arrived in ED. mw2 21:21 Fito Galeana, LEXII is Primary Nurse. as6 21:24 Derrick Garrett PA is PHCP. cp 21:24 Johnny Vilchis MD is Attending Physician. cp 21:31 Triage completed. as6 21:33 Arm band placed on. tw5 21:47 Patient has correct armband on for positive identification. Placed in gown. Bed in low lg3 position. Call light in reach. Side rails up X2. 21:47 COVID-19/FLU A+B (Document "Date of Onset" if Symptomatic) Sent. lg3 21:47 Basic Metabolic Panel Sent. lg3 21:47 CBC with Diff Sent. lg3 21:47 LFT's Sent. lg3 21:47 Magnesium Sent. lg3 21:47 NT PRO-BNP Sent. lg3 21:47 PT-INR Sent. lg3 21:47 Troponin HS Sent. lg3 21:47 Inserted saline lock: 20 gauge in right forearm, using aseptic technique. Blood lg3 collected. 21:57 CT Head Brain wo Cont In Process Unspecified. EDMS 22:07 XRAY Chest (1 view) In Process Unspecified. EDMS 23:22 Notified ED physician of a critical lab result(s). Band count of 12%. tw5 23:33 Korey Welsh MD is Hospitalizing Provider. cp 08/01 00:45 Blood Culture Adult (2) Sent. emili 00:45 Lactate Sent. emili 00:45 Procalcitonin Sent. emili 00:45 CRP Sent. emili 00:45 Basic Metabolic Panel Sent. emili 00:45 LFT's Sent. emili 00:45 Magnesium Sent. emili 00:45 NT PRO-BNP Sent. emili 00:46 Troponin HS Sent. emili 01:14 Notified ED physician of a critical lab result(s). creatine of 9.59. tw5 01:16 Notified ED physician of a critical lab result(s). troponin 110.1. tw5 02:46 Thompson cath inserted, using sterile technique, 18 Fr., by me, balloon inflated, to emili gravity drainage, other UOP is so scant, I am waiting for it to be enough to send. 08:26 No provider procedures requiring assistance completed. Patient admitted, IV remains in eo2 place. Administered Medications: 00:40 Drug: Lasix (furosemide) 60 mg Route: IVP; Site: right forearm; lg3 00:40 Follow up: Response: No adverse reaction lg3 01:11 Follow up: Response: No adverse reaction emili 00:55 Drug: Cefepime 1 grams Route: IVPB; Rate: 200 ml/hr; Infused Over: 30 mins; Site: right emili forearm; 01:11 Follow up: Response: No adverse reaction emili Outcome: 07/31 23:34 Decision to Hospitalize by Provider. cp 02 00:55 Condition: stable emili 08:26 Admitted to Tele with oxygen. eo2 08:26 Instructed on the need for admit, Demonstrated understanding of instructions. 08:28 Patient left the ED. eo2 Signatures: Dispatcher [employer] EDMS Derrick Garrett PA PA cp Gabriela Mccarty mw2 Candi Velázquez RN RN lg3 Dulce Monroy tw5 Fito Galeana RN RN as6 Chrissy Mullins RN RN bo Owoade, Eunice RN RN eo2 Corrections: (The following items were deleted from the chart) 07/31 21:50 21:47 Inserted saline lock: 20 gauge in right forearm, using aseptic technique. lg3 lg3
--- NOTE | 2021-07-31 23:35 | EDPHYS ---
Physician Documentation [facility] Name: Robbie Kelly Age: 76 yrs Sex: Male : 1945 Arrival Date: 07/31/2021 Time: 21:14 Bed 17 Private MD: ED Physician Johnny Vilchis HPI: 07/31 21:30 This 76 yrs old Male presents to ER via EMS with complaints of Weakness. cp 21:30 The patient's problem is reported as weakness, that is generalized. Onset: The cp symptoms/episode began/occurred 1 week(s) ago. Duration: The episode is continuous. Associated signs and symptoms: Pertinent positives: generalized pain, Pertinent negatives: abdominal pain, chest pain, confusion, diarrhea, headache, palpitations, vomiting. Patient's baseline: Neuro: alert and fully oriented, Motor: no deficits, Ambulation: walks without assistance, Speech: normal. Historical: - Allergies: 21:33 No Known Allergies; tw5 - Home Meds: 21:33 Eliquis 2.5 mg oral tab 1 tab 2 times per day [Active]; amiodarone 400 mg Oral tab 1 tw5 tab once daily [Active]; atorvastatin 40 mg oral tab 1 tab once daily [Active]; carvedilol 3.125 mg oral tab 1 tab [Active]; furosemide 20 mg Oral tab 1 tab 2 times per day [Active]; hydroxyzine HCl 25 mg Oral tab 1 tab 3 times per day [Active]; levothyroxine 88 mcg cap 1 cap once daily [Active]; prednisone 10 mg Oral tab once daily [Active]; Aileen-Shari 0.8 mg oral tab [Active]; budesonide inhalation [Active]; sevelamer carbonate 800 mg oral tab 1 tab 3 times per day [Active]; - PMHx: 21:33 Anemia; Bladder CA; COPD; Dialysis; M,W,F; Hypertension; Hypothyroidism; POLYCYSTIC tw5 KIDNEY DISEASE; RENAL FAILURE; - Immunization history:: Flu vaccine is up to date. - Social history:: Smoking status: Patient/guardian denies using tobacco, the patient reports quitting approximately 6 years ago. ROS: 21:30 Constitutional: Positive for body aches, Negative for chills, fever. cp 21:30 Eyes: Negative for injury, pain, redness, and discharge. cp 21:30 ENT: Negative for drainage from ear(s), ear pain, sore throat, difficulty swallowing, difficulty handling secretions. 21:30 Cardiovascular: Positive for edema, Negative for chest pain. 21:30 Respiratory: Positive for cough, "sounds productive", shortness of breath, Negative for wheezing. 21:30 Abdomen/GI: Negative for abdominal pain, vomiting, diarrhea, constipation. 21:30 Back: Negative for pain at rest, pain with movement. 21:30 Skin: Negative for rash. 21:30 Neuro: Positive for weakness, Negative for altered mental status, dizziness, headache, syncope. 21:30 All other systems are negative. Exam: 21:35 Constitutional: The patient appears in no acute distress, alert, awake, cp non-diaphoretic, non-toxic, well developed, well nourished. 21:35 Head/Face: Normocephalic, atraumatic. cp 21:35 Eyes: Periorbital structures: appear normal, Conjunctiva: normal, no exudate, no injection, Sclera: no appreciated abnormality, Lids and lashes: appear normal, bilaterally. 21:35 ENT: External ear(s): are unremarkable, Nose: is normal, Mouth: Lips: dry, Oral mucosa: moist, Posterior pharynx: Airway: no evidence of obstruction, patent. 21:35 Neck: ROM/movement: is normal, is supple, without pain, no range of motions limitations. 21:35 Chest/axilla: Inspection: normal, Palpation: is normal, no crepitus, no tenderness. 21:35 Cardiovascular: Rate: tachycardic, Rhythm: regular, Edema: ankle edema, that is mild, JVD: is not appreciated. 21:35 Respiratory: the patient does not display signs of respiratory distress, Respirations: normal, no use of accessory muscles, no retractions, labored breathing, is not present, Breath sounds: bronchial sounds, that are mild, are heard diffusely, stridor, is not appreciated, wheezing: is not appreciated. 21:35 Abdomen/GI: Inspection: abdomen appears normal, Bowel sounds: active, all quadrants, Palpation: abdomen is soft and non-tender, in all quadrants. 21:35 Back: pain, is absent, ROM is normal. 21:35 Skin: cellulitis, is not appreciated, no rash present. 21:35 Neuro: Orientation: to person, place \\T\\ time. Mentation: is normal, Motor: moves all fours, strength is normal, Sensation: is normal. 22:20 ECG was reviewed by the Attending Physician. cp 23:05 Radiologist reports: report reviewed cp Vital Signs: 21:21 BP 93 / 68; Pulse 111; Resp 20; Temp 99.3(O); Pulse Ox 97% on 3 lpm NC; Weight 83.91 as6 kg; Height 5 ft. 10 in. (177.80 cm); Pain 7/10; 22:26 BP 119 / 65; Pulse 98; Resp 22 S; Pulse Ox 99% on R/A; as6 07 00:50 BP 111 / 90; Pulse 104; Resp 18; Temp 97.2(TE); Pulse Ox 97% on 2 lpm NC; Pain 0/10; emili 01:45 BP 107 / 77; Pulse 94; Resp 18; Pulse Ox 99% on 2 lpm NC; Pain 0/10; emili 02:19 BP 112 / 82; Pulse 90; Resp 18; Pulse Ox 99% on 2 lpm NC; Pain 0/10; emili 03:12 BP 91 / 65; Pulse 106; Resp 16; Pulse Ox 99% on 2 lpm NC; Pain 0/10; emili 04:30 BP 139 / 121 LA Supine (auto/reg); Pulse 101 MON; Resp 13 S; Pulse Ox 96% on R/A; emili 07/31 21:21 Body Mass Index 26.54 (83.91 kg, 177.80 cm) as6 MDM: 07/31 21:26 Patient medically screened. cp 22:00 Differential diagnosis: CVA, TIA, metabolic disorder, sepsis, pneumonia. cp 23:30 Data reviewed: vital signs, nurses notes, lab test result(s), EKG, radiologic studies, cp CT scan, plain films. 23:30 Test interpretation: by ED physician or midlevel provider: ECG, plain radiologic cp studies. Physician consultation: Obinna Mcnulty was called at 23:30, was contacted at 23:30, regarding admission, to the medical/surgical unit. patient's condition. 07/31 21:25 Order name: Basic Metabolic Panel cp 08/01 01:22 Interpretation: Normal except: NA 133; BUN 53; CRE 9.59; GFR 5. cp 07/31 21:25 Order name: CBC with Diff; Complete Time: 23:23 cp 07/31 23:00 Interpretation: Normal except: RBC 3.59; HGB 10.6; HCT 33.0; MCV 92.0; PLT 121; RDW cp 19.9; JOHN% 79.5; LYM% 12.8. 07/31 21:25 Order name: LFT's cp 08/01 01:24 Interpretation: Normal except: BILID 0.4; ALB 2.7; GLOB 3.9; A/G 0.7. cp / 21:25 Order name: Magnesium cp 07/31 21:25 Order name: NT PRO-BNP cp 07/31 21:25 Order name: PT-INR; Complete Time: 23:00 cp 07/31 23:00 Interpretation: Reviewed. cp 07/31 21:25 Order name: Troponin HS cp 07/31 21:25 Order name: COVID-19/FLU A+B (Document "Date of Onset" if Symptomatic); Complete Time: cp 23:31 07/31 22:28 Order name: Manual Differential; Complete Time: 23:24 EDMS 02 23:23 Interpretation: Abnormal: BANDS [F] 12; LYM 13. cp 07/31 23:24 Order name: Urine Microscopic Only cp 07/31 23:25 Order name: Blood Culture Adult (2) cp 07/31 23:25 Order name: Lactate; Complete Time: 00:59 cp 07/31 23:25 Order name: Procalcitonin; Complete Time: 02:03 cp / 23:32 Order name: CRP; Complete Time: 00:59 la1 07/31 21:25 Order name: CT Head Brain wo Cont; Complete Time: 23:00 cp 07/31 21:25 Order name: XRAY Chest (1 view); Complete Time: 22:34 cp 07/31 21:25 Order name: EKG; Complete Time: 21:27 cp 07/31 21:25 Order name: Cardiac monitoring; Complete Time: 21:47 cp 07/31 21:25 Order name: EKG - Nurse/Tech; Complete Time: 22:14 cp 07/31 21:25 Order name: IV Saline Lock; Complete Time: 21:47 cp 07/31 21:25 Order name: Labs collected and sent; Complete Time: 21:47 cp 07/31 21:25 Order name: O2 Per Protocol; Complete Time: 21:47 cp 07/31 21:25 Order name: O2 Sat Monitoring; Complete Time: 21:47 cp 07/31 23:24 Order name: Urine Dipstick-Ancillary (obtain specimen) cp 08/01 04:56 Order name: Troponin High Sensitivity EDMS 08/01 04:57 Order name: CBC with Automated Diff EDMS 08/01 05:01 Order name: Comprehensive Metabolic Panel EDMS 08/01 05:01 Order name: C-Reactive Protein EDMS 07/31 23:31 Order name: Cath; Complete Time: 03:41 cp EC:20 Rate is 101 beats/min. Rhythm is irregular. QRS interval is normal. QT interval is cp normal. T waves are Inverted in lead aVL. Interpreted by me. Reviewed by me. Administered Medications: 08/01 00:40 Drug: Lasix (furosemide) 60 mg Route: IVP; Site: right forearm; lg3 00:40 Follow up: Response: No adverse reaction lg3 01:11 Follow up: Response: No adverse reaction emili 00:55 Drug: Cefepime 1 grams Route: IVPB; Rate: 200 ml/hr; Infused Over: 30 mins; Site: right emili forearm; 01:11 Follow up: Response: No adverse reaction emili Disposition: 06:19 Co-signature as Attending Physician, Johnny Vilchis MD. 7 Disposition Summary: 07/31/21 23:34 Hospitalization Ordered Hospitalization Status: Inpatient Admission cp Provider: Korey Welsh cp Condition: Stable cp Problem: new cp Symptoms: are unchanged cp Bed/Room Type: Standard cp Location: Telemetry/MedSurg (Inpatient)(08/01/21 07:09) bd Room Assignment: 403(08/01/21 07:09) bd Diagnosis - Weakness cp - SARS-associated coronavirus as the cause of diseases classified elsewhere cp - Bandemia cp Forms: - Medication Reconciliation Form cp - SBAR form cp Signatures: Dispatcher [employer] EDMS Nahomy Will Lee, FNP-C LUGGAGE ATTENDANT-Cla1 Derrick Garrett PA PA cp Rajni Marshall RN RN Candi Velázquez RN RN [facility] Johnny Vilchis MD MD [facility] Dulce Monroy [facility] O'Ortiz, Chrissy, RN RN emili Corrections: (The following items were deleted from the chart) 07/31 23:51 23:34 Telemetry/MedSurg (Inpatient) cp cg 23:34 cp cg 08/01 07:07/31 23:51 [facility] ER HOLD cg bd 08/01 07:07/31 23:51 ERHOLD- cg bd
--- NOTE | 2021-08-01 00:20 | P.HP ---
Certification for Inpatient Patient admitted to: Inpatient With expected LOS: >2 Midnights Patient will require the following post-hospital care: None Practitioner: I am a practitioner with admitting privileges, knowledge of patient current condition, hospital course, and medical plan of care. Services: Services provided to patient in accordance with Admission requirements found in Title 42 Section 412.3 of the Code of Federal Regulations Patient History Date of Service: 08/01/21 Primary Care Provider: Dr. Hope, nephrology Dr. Hector, cardiology Dr. Marino, pulm. Dr. Lake Reason for admission: dyspnea, volume overload, COVID+ History of Present Illness: 76-year-old male with history of ESRD on HD MWF, COPD on chronic home oxygen and steroid therapy, hypertension, hypothyroidism, A. fib on chronic anticoagulation therapy, history of bladder cancer, hyperlipidemia and known descending thoracic aortic aneurysm presents the emergency department for generalized weakness. reports has not been himself having had generalized body aches and weakness. Patient was evaluated in the emergency department whit e blood cell count is 10 with 12% bandemia his chest x-ray demonstrated moderate bilateral pulmonary opacities are present which may represent pneumonia versus pulmonary edema. CT head brain without contrast was performed which demonstrated 8 mm right anterior periventricular hypodensity which may be related to subacute CVA versus chronic ischemia recommend MRI brain to further evaluate. Patient with low-grade fever also tested positive for Covid. Patient vaccinated and boosted has not previously had Covid. Had a negative Covid test on 07/10/2021. ED provider wishes to admit for further evaluation and management. Patient received IV antibioticcefepime in the ER as well as dose of Lasix as he does appear to be overloaded with 2/3+ pitting edema bilateral lower extremities. Allergies No Known Allergies Allergy (Verified 06/02/21 00:46) Home Medications: Levothyroxine [Synthroid*] 88 mcg PO DAILY 11/17/20 Atorvastatin Calcium 1 tab PO DAILY 02/19/21 Furosemide [Lasix] 1 tab PO BID 02/19/21 Carvedilol [Coreg] 3.125 mg PO BID 90 Days #180 tablet 02/20/21 Albuterol Inhaler [Ventolin Inhaler*] 2 puff IH Q6H PRN 06/02/21 Budesonide [Pulmicort*] 1 puff IH BID 06/02/21 Formoterol Fumarate 20 mcg IH BID 06/02/21 hydrOXYzine HCL [Atarax*] 25 mg PO DAILY 06/02/21 predniSONE [Deltasone*] 10 mg PO DAILY 06/02/21 Levofloxacin [Levaquin] 250 mg PO Q48H #3 tablet 06/03/21 predniSONE [Deltasone*] 10 mg PO BID #14 tab 06/03/21 - Past Medical/Surgical History Diabetic: No -: HTN -: Hypothyroid -: polycystic kidney -: diverticulitis -: COPD -: anemia -: CKD -: bladder cancer -: ESRD/HD/MWF -: Thoracic aneurysm -: AAA repair -: Colonoscopy -: AAA repair Psychosocial/ Personal History: lives with - Family History Father -: Heart disease Mother -: Heart disease - Social History Smoking Status: Never smoker Alcohol use: No CD- Drugs: No Caffeine use: Yes Place of Residence: Home Review of Systems 10-point ROS is otherwise unremarkable General: Fever, Chills, Weakness, Malaise Respiratory: Cough, Shortness of Breath Physical Examination - Physical Exam General: Alert, In no apparent distress, Oriented x3 HEENT: Atraumatic, PERRLA, Mucous membr. moist/pink, EOMI, Sclerae nonicteric Neck: Supple, 2+ carotid pulse no bruit, No LAD, Without JVD or thyroid abnormality Respiratory: Crackles/rales Cardiovascular: Normal S1 S2, Edema, Irregular heart rate/rhythm Capillary refill: <2 Seconds Gastrointestinal: Normal bowel sounds, No tenderness Musculoskeletal: No tenderness Integumentary: No rashes Neurological: Normal speech, Normal strength at 5/5 x4 extr, Normal tone, Normal affect Lymphatics: No axilla or inguinal lymphadenopathy - Studies Laboratory Data (last 24 hrs) 07/31/21 21:41: PT 25.7 H, INR 2.22 07/31/21 21:41: WBC 10.00, Hgb 10.6 L, Hct 33.0 L, Plt Count 121 L Assessment and Plan - Plan Assessment: ESRD on HD MWF with volume overload, pulmonary edema Bandemia Covid 19+ 8 mm right periventricular hypodensity suspected subacute CVA COPD on chronic home oxygen/steroid therapy Atrial fibrillation on chronic anticoagulation therapy Known descending thoracic aortic aneurysm 5.8 cm History of bladder cancer Hypertension Hyperlipidemia Plan: ESRD on HD MWF with volume overload, pulmonary edema: Nephrology consulted patient did complete dialysis on Sunday. Patient with 3+ pitting edema bilateral lower extremities with history of pulmonary edema on chest x-ray but white blood cell count is 10 and patient has significant bandemia 12%. Cover with antibiotics at this time cefepime given that he is on amiodarone. Appreciate further input from nephrology. Bandemia: Continue as above, blood cultures obtained, pending urine as well. Covid 19+: Patient has not tested positive previously has been vaccinated and boosted, CRP level pending. Pulmonology consulted. Patient on chronic home oxygen not requiring more than usual. 8 mm right periventricular hypodensity suspected subacute CVA: MRI brain without contrast ordered to evaluate for possible CVA versus chronic ischemic changes. Consult neurology as necessary. COPD on chronic home oxygen/steroid therapy: Supplemental oxygen as needed, patient recently ran out of his prescribed steroid was previously on prednisone 10 mg p.o. daily ran out about 5 days ago we will continue with IV Solu-Medrol at this time. Can likely be dropped back down to his oral daily dose in the next day or so. Pulmonology on as well. Atrial fibrillation on chronic anticoagulation therapy: Continue amiodarone, Eliquis, monitor on telemetry. Continue other home medications. Known descending thoracic aortic aneurysm 5.8 cm: Patient saw vascular surgery in April no intervention was deemed necessary at that time recommended CT 6 months from then. Patient denies any chest pain or other acute symptoms. History of bladder cancer: Patient was previously recommended bilateral nephrectomy and bladder removal by his urologist. This has not happened yet, patient has had multiple illnesses since then which has prevented this. Family and patient also discussing with urology for other potential options. Patient at this time is able to urinate without difficulty no Dorman catheter at this time. Will obtain urine specimen. Hypertension: Obtain and continue medications. Hyperlipidemia: Obtain and continue medications. DVT PPX: Continue Eliquis Code status: Full Discharge Plan: Home Plan to discharge in: 72 Hours - Advance Directives Does patient have a Living Will: Yes Does patient have a Durable POA for Healthcare: Yes - Code Status/Comfort Care Code Status Assessed: Yes (FC) Critical Care: No Time Spent Managing Pts Care (In Minutes): 55
[2021-08-01] MEDS ORDERED: NA CHLORIDE 0.9% 100 ML IV ONE (00:34)
[2021-08-01] MEDS ORDERED: FUROSEMIDE 100 MG/10 ML VIAL IV ONE (00:34)
[2021-08-01] MEDS ORDERED: CEFTRIAXONE 1000 MG/VIAL ONE (00:36)
[2021-08-01] MEDS ORDERED: CEFEPIME 1 GM/VIAL ONE (00:48)
[2021-08-01] MEDS ORDERED: ALBUTEROL 2.5 MG/3 ML NEB SOL NEB PRN (01:07)
[2021-08-01] MEDS ORDERED: ONDANSETRON 4 MG/2 ML VIAL IV PRN (01:07)
[2021-08-01] MEDS ORDERED: BENZONATATE 100 MG CAP PO PRN (01:07)
[2021-08-01] MEDS ORDERED: ACETAMINOPHEN 500 MG TAB PO PRN (01:07)
[2021-08-01] MEDS ORDERED: IPRATROPIUM BROM 0.5MG/2.5ML NEB PRN (01:07)
[2021-08-01] MEDS: METHYLPREDNISOLONE 40 MG INJ IV SCH ×3 (01:07→16:31)
[2021-08-01 01:14] LABS: Albumin 2.7 g/dL (3.4-5.0); Bilirubin Direct 0.4 mg/dL (0-0.2); Bilirubin Total 0.9 mg/dL (0.2-1.0); Potassium 4.7 mmol/L (3.5-5.1); Protein, Total 6.6 g/dL (6.4-8.2)
[2021-08-01 01:17] LABS: Troponin High Sensitivity 110.1 pg/mL (<58.9)
[2021-08-01] MEDS ORDERED: METHYLPREDNISOLONE 40 MG INJ ONE (01:37)
[2021-08-01 04:40] LABS: Absolute Lymphocytes (CBC) 0.9 K/uL (0.7-4.9); Hematocrit 32.7 % (39.6-49.0); Lymphocytes % 7.6 % (15.3-44.8); MPV 9.3 fL (7.6-11.3); RBC Red Blood Cell Count 3.56 M/uL (4.33-5.43)
[2021-08-01 04:58] LABS: Albumin 2.7 g/dL (3.4-5.0); Bilirubin Total 0.9 mg/dL (0.2-1.0); C-Reactive Protein 89.4 mg/L (<3.00); Potassium 5.3 mmol/L (3.5-5.1); Protein, Total 6.4 g/dL (6.4-8.2)
[2021-08-01 06:46] LABS: Magnesium 2.4
[2021-08-01 08:17] VITALS: BMI 26.5
--- NOTE | 2021-08-01 08:28 | RAD REPORT ---
EXAM DESCRIPTION: US - CP - 08/01/2021 2:18 am CLINICAL HISTORY: poss. cva Headache, drowsiness, CVA symptomology COMPARISON: CAROTID ARTERY BILATERAL dated 08/15/2010 TECHNIQUE: Real-time sonographic evaluation of both carotid systems was performed. Doppler interroga tion was performed with waveform tracing bilaterally. FINDINGS: Normal high resistance waveforms are noted in both external carotid arteries. The common c arotid arteries and internal carotid arteries show normal low resistance waveforms. Mixed plaque and hard plaquing is seen in both proximal internal carotid arteries. There is elevated peak systolic velocity in the proximal right ICA 140 cm/second suggesting mild stenosis. Based on KD CET criteria, narrowing is 50 -70 %. No significant left-sided stenosis seen. Antegrade flow seen in both vertebral arteries. IMPRESSION: Moderate mixed plaque and hard plaquing present in both proximal internal carotid arteri es, more significant on the right. There is moderate stenosis seen of the proximal right ICA estimated at 50-70%.
--- NOTE | 2021-08-01 10:11 | RAD REPORT ---
EXAM DESCRIPTION: MRI - Brain Wo Cont - 08/01/2021 9:25 am CLINICAL HISTORY: poss. cva Headache, drowsiness, CVA symptomology COMPARISON: Head Brain Wo Cont dated 07/31/2021 TECHNIQUE: Multi-sequence, multiplanar MR imaging of the brain was performed without contrast. FINDINGS: No intracranial hemorrhage, hydrocephalus or extra-axial fluid collections.Mild periventri cular chronic microvascular ischemic changes. No edema or shift of midline structures. No findings to suspect brain mass. DWI is negative for acute CVA. Midline structures are normally formed. Mastoid air cells and paranasal sinuses are clear. IMPRESSION: Negative for acute CVA or other acute intracranial process.
[2021-08-01] MEDS: CEFEPIME 1 GM in NA CHLORIDE 0.9% 100 ML IV SCH (10:12)
[2021-08-01] MEDS: APIXABAN 2.5 MG TABLET PO SCH ×2 (10:12→20:55)
[2021-08-01] MEDS: AMIODARONE HCL 200 MG TAB PO SCH ×2 (10:12→20:55)
[2021-08-01] MEDS: FUROSEMIDE 40 MG/4 ML VIAL IV SCH ×2 (10:12→16:31)
--- NOTE | 2021-08-01 11:30 | EKG ---
Test Date: 2021-07-31 Test Time: 22:15:43 Director Foundation: GEORGIAT MEASUREMENT RESULTS: Intervals: Rate: 101 MO: QRSD: 96 QT: 292 QTc: 378 [place]: P: MO: QRS: 53 T: 174 INTERPRETIVE STATEMENTS: Atrial fibrillation with rapid ventricular response ST & T wave abnormality, consider lateral ischemia or digitalis effect Abnormal ECG Compared to ECG 06/01/2021 17:06:26 ST (T wave) deviation now present Possible ischemia now present Sinus tachycardia no longer present Atrial premature complex(es) no longer present Left ventricular hypertrophy no longer present Early repolarization no longer present Electronically Signed On 08-01-21 11:30:19 [employer]ON[employer] TECHNOLOGIST by Stephan Marino
[2021-08-01 11:43] LABS: Urine Appearance TURBID (Clear); Urine Bilirubin NEGATIVE (Negative); Urine Blood 3+ (Negative); Urine Glucose NEGATIVE (Negative); Urine Protein 3+ (Negative); Urine Specific Gravity 1.025 (1.005-1.030); Urine Urobilinogen 0.2 mg/dL (0.2-1.0)
[2021-08-01 11:46] LABS: Urine Color RED (Yellow); Urine Microscopic Reflex ORDER UMIC
[2021-08-01 11:47] LABS: Urine Bacteria >50 /HPF (NONE SEEN); Urine RBC LOADED /HPF (NONE SEEN)
[2021-08-01] MEDS: ATORVASTATIN 40 MG TAB PO SCH (20:55)
[2021-08-02] MEDS: METHYLPREDNISOLONE 40 MG INJ IV SCH ×2 (00:12→09:07)
[2021-08-02 04:01] LABS: Absolute Lymphocytes (CBC) 0.7 K/uL (0.7-4.9); Hematocrit 32.6 % (39.6-49.0); Lymphocytes % 5.7 % (15.3-44.8); MPV 9.4 fL (7.6-11.3); RBC Red Blood Cell Count 3.59 M/uL (4.33-5.43)
[2021-08-02 04:23] LABS: Albumin 2.6 g/dL (3.4-5.0); Bilirubin Total 0.7 mg/dL (0.2-1.0); C-Reactive Protein 74.9 mg/L (<3.00); Protein, Total 6.6 g/dL (6.4-8.2)
[2021-08-02 04:51] LABS: Potassium 5.8 mmol/L (3.5-5.1)
[2021-08-02] MEDS ORDERED: D50W 25 GM/50 ML SYRINGE IV ONE (05:33)
[2021-08-02] MEDS ORDERED: INSULIN -REGULAR HUMAN 50 UNIT/0.5 ML ML IV ONE (05:34)
[2021-08-02] MEDS: FUROSEMIDE 40 MG/4 ML VIAL IV SCH ×2 (09:06→15:54)
[2021-08-02] MEDS: CEFEPIME 1 GM in NA CHLORIDE 0.9% 100 ML IV SCH (09:07)
[2021-08-02] MEDS: AMIODARONE HCL 200 MG TAB PO SCH ×2 (09:08→21:00)
[2021-08-02] MEDS: APIXABAN 2.5 MG TABLET PO SCH (09:08)
--- NOTE | 2021-08-02 10:36 | P.PN ---
Subjective Date of Service: 08/01/21 Chief Complaint: dyspnea, volume overload, COVID+ Subjective: No new changes, No C/O voiced Review of Systems 10-point ROS is otherwise unremarkable Physical Examination - Vital Signs Temperature: 98.0 F Blood Pressure: 124/72 Pulse: 74 Respirations: 18 Pulse Ox (%): 99 - Physical Exam General: Alert, In no apparent distress, Oriented x3 HEENT: Atraumatic, PERRLA, EOMI Neck: Supple, JVD not distended Respiratory: Clear to auscultation bilaterally, Normal air movement Cardiovascular: Regular rate/rhythm, Normal S1 S2 Gastrointestinal: Normal bowel sounds, No tenderness Musculoskeletal: No tenderness Integumentary: No rashes Neurological: Normal speech, Normal tone, Normal affect Lymphatics: No axilla or inguinal lymphadenopathy - Studies Medications List Reviewed: Yes Assessment & Plan - Problems (Diagnosis) (1) Fluid overload Current Visit: Yes Status: Acute (2) History of atrial fibrillation Current Visit: Yes Status: Acute (3) COPD exacerbation Current Visit: No Status: Acute (4) ESRD (end stage renal disease) Current Visit: No Status: Acute (5) Hematuria Current Visit: No Status: Acute Qualifiers: Hematuria type: unspecified type Qualified Code(s): R31.9 - Hematuria, unspecified (6) Shortness of breath Onset Date: 10/01/15 Current Visit: No Status: Acute (7) COPD (chronic obstructive pulmonary disease) Current Visit: No Status: Chronic Qualifiers: COPD type: unspecified COPD Qualified Code(s): J44.9 - Chronic obstructive pulmonary disease, unspecified (8) History of bladder cancer Current Visit: No Status: Chronic - Plan Plan: 1. Patient will continue with hemodialysis 2. Monitor hematuria 3. Monitor H&H 4. Once volume status is stable anticipate discharge home over the next 24 to 48 hours 5. Continue with cardiac meds 6. GI DVT prophylaxis Discharge Plan: Home Plan to discharge in: Greater than 2 days - Advance Directives Does patient have a Living Will: Yes Does patient have a Durable POA for Healthcare: Yes - Code Status/Comfort Care Code Status Assessed: Yes Code Status: Full Code Critical Care: No Time Spent Managing PTS Care (In Minutes): 35
--- NOTE | 2021-08-02 10:37 | P.PN ---
Date of Service: 08/02/21 Subjective Clinical symptoms improving. Anticipate discharge after hemodialysis Review of Systems 10-point ROS is otherwise unremarkable Physical Examination - Vital Signs Reviewed - Physical Exam General: Alert, In no apparent distress, Oriented x3 Respiratory: Clear to auscultation bilaterally, Normal air movement Cardiovascular: Regular rate/rhythm, Normal S1 S2 Gastrointestinal: Normal bowel sounds, No tenderness Neurological: Normal speech, Normal tone, Normal affect Assessment & Plan - Problems (Diagnosis) (1) Fluid overload Current Visit: Yes Status: Acute (2) History of atrial fibrillation Current Visit: Yes Status: Acute (3) COPD exacerbation Current Visit: No Status: Acute (4) ESRD (end stage renal disease) Current Visit: No Status: Acute (5) Hematuria Current Visit: No Status: Acute Qualifiers: Hematuria type: unspecified type Qualified Code(s): R31.9 - Hematuria, unspecified (6) Shortness of breath Onset Date: 10/01/15 Current Visit: No Status: Acute (7) COPD (chronic obstructive pulmonary disease) Current Visit: No Status: Chronic Qualifiers: COPD type: unspecified COPD Qualified Code(s): J44.9 - Chronic obstructive pulmonary disease, unspecified (8) History of bladder cancer Current Visit: No Status: Chronic - Plan Plan of care as mentioned below 1. Patient will continue with hemodialysis 2. Monitor hematuria; diminished 3. Monitor H&H 4. Once volume status is stable anticipate discharge home over the next 24 to 48 hours 5. Continue with cardiac meds 6. GI DVT prophylaxis Discharge Plan: Home Plan to discharge in: Greater than 2 days - Advance Directives Does patient have a Living Will: Yes Does patient have a Durable POA for Healthcare: Yes - Code Status/Comfort Care Code Status Assessed: Yes Code Status: Full Code Critical Care: No Time Spent Managing PTS Care (In Minutes): 35
[2021-08-02] MEDS ORDERED: hydrOXYzine HCL 25 MG TAB PO PRN (10:41)
[2021-08-02] MEDS: SEVELAMER CARBONATE 800 MG TABLET PO SCH ×2 (12:00→15:54)
--- NOTE | 2021-08-02 12:31 | P.CNS ---
Date of Consult: 08/02/21 Primary Care Provider: Dr. Hope, nephrology Dr. Hector, cardiology Dr. Marino, pulm. Dr. Lake Chief Complaint: Coronavirus pneumonia History of Present Illness: Patient is 76 years of age multiple medical problems end-stage renal disease mated to the emergency room with generalized weakness bilateral opacities diagnosed with coronavirus pneumonia still complaining of cough congestion doing a little better Allergies No Known Allergies Allergy (Verified 06/02/21 00:46) Home Medications: Levothyroxine [Synthroid*] 88 mcg PO DAILY 11/17/20 Atorvastatin Calcium 40 mg PO BEDTIME 02/19/21 Furosemide [Lasix] 20 mg PO BID 02/19/21 Carvedilol [Coreg] 3.125 mg PO BID 90 Days #180 tablet 02/20/21 Albuterol Inhaler [Ventolin Inhaler*] 2 puff IH Q6H PRN 06/02/21 Budesonide [Pulmicort*] 1 puff IH BID 06/02/21 Formoterol Fumarate 20 mcg IH BID 06/02/21 hydrOXYzine HCL [Atarax*] 25 mg PO DAILY PRN 06/02/21 Amiodarone HCl [Pacerone] 400 mg PO BID 08/01/21 Apixaban [Eliquis *] 2.5 mg PO BID 08/01/21 Calcium Carbonate [Tums Regular*] 1,000 mg PO TIDWM 08/01/21 Folic Acid/Vit B Complex and C [Renal-Shari Tablet] 0.8 mg PO DAILY 08/01/21 Sevelamer Carbonate [Renvela*] 800 mg PO TIDWM 08/01/21 - Past Medical/Surgical History Diabetic: No -: HTN -: Hypothyroid -: polycystic kidney -: diverticulitis -: COPD -: anemia -: CKD -: bladder cancer -: ESRD/HD/MWF -: Thoracic aneurysm -: AAA repair -: Colonoscopy -: AAA repair Psychosocial/ Personal History: lives with - Family History Father Medical History: Heart disease Mother Medical History: Heart disease - Social History Smoking Status: Unknown if ever smoked Alcohol use: No CD- Drugs: No Caffeine use: Yes Place of Residence: Home Review of Systems 10-point ROS is otherwise unremarkable Respiratory: Cough, Shortness of Breath Physical Examination Temp Pulse Resp BP Pulse Ox 98.0 F 74 18 124/72 99 08/02/21 10:36 08/02/21 10:36 08/02/21 10:36 08/02/21 10:36 08/02/21 10:36 General: Alert, Oriented x3 Respiratory: Clear to auscultation bilaterally, Diminished Cardiovascular: No edema, Regular rate/rhythm Gastrointestinal: Normal bowel sounds, Soft and benign - Problems (1) Pneumonia due to coronavirus disease 2018 Current Visit: Yes Status: Acute Plan: Patient is 76 years of age admitted with coronavirus pneumonia he has bilateral interstitial changes patient has end-stage renal disease he is on hemodialysis is currently on 2 L of nasal cannula oxygen doing well start patient on Decadron order home oxygen history of bladder cancer history of COPD
[2021-08-02] MEDS: dexAMETHasone 4 MG TAB PO SCH ×2 (13:06→21:00)
--- NOTE | 2021-08-02 14:19 | CON ---
Date of Consultation: 08/02/2021 Reason For Consultation: Elevated BUN and creatinine, hyperkalemia. 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 Huang in [place], AAA, COPD, thoracic aneurysm, hypertension, the patient was in his regular state of health, came to the hospital of altered mental status and weakness, found to have suspicious of pneumonia with leukocytosis. The patient also complaining from hematuria with burning. The patient found to have hyperkalemia. For that reason, we have been consulted. Past Medical History: Includes; 1. Hypertension. 2. Polycystic kidney disease. 3. COPD. 4. Hypothyroidism. 5. Bladder CA with extension in the urethra, status post resection with plan for nephrectomy bilateral by Dr. Huang, Urology in [place]. 6. AAA, thoracic and abdominal. 7. COPD. Past Surgical History: Includes; 1. AV fistula. 2. Cystoscopy. 3. Colonoscopy. Family History: Positive for hypertension, CAD. Social History: Ex-smoker. Denied alcohol. Denied drug abuse. Review of Systems: Head and Neck: No red eye. No ear pain. GI: No nausea. No vomiting. : Had hematuria. [employer] Director: Not applicable. Respiratory: Has shortness of breath. Cardiovascular: No chest pain. Endocrine: No polydipsia. Skin: No rash. Neuro: Has generalized weakness. Has altered mental status. Physical Examination: Vital Signs: When I saw the patient; blood pressure 124/72, pulse of 74, afebrile. Chest: Faint rales on the left base. Heart: S1, S2. Systolic murmur. Abdomen: Soft, nontender. Extremity: No edema. Neuro: Alert. No focality. Laboratory Data: WBC 12.1, H and H 10.4/32.6. Sodium 132, potassium 5.8, bicarb 22, BUN 90, creatinine 11.6, calcium 8.8, albumin 2.6, corrected calcium is 10. Current Medications: The patient on include; 1. Cefepime. 2. Eliquis. 3. Amiodarone. 4. Carvedilol. 5. Tylenol. 6. Lasix. 7. Renvela. 8. Zofran. Assessment And Plan: 1. End-stage renal disease with hyperkalemia. The patient will be taken to dialysis. We will dialyze the patient on low-potassium bath. The patient was medicated for the hyperkalemia and we will follow up. 2. Over volume. We are going to challenge the patient. 3. Hyperkalemia. The patient is going to be dialyzed on low-potassium bath. 4. Anemia of chronic kidney disease. Resume BRONWYN. 5. Hematuria. The patient has history of bladder carcinoma. We will send for UA and urine culture. The patient already on cephalosporin. We will follow up the culture. 6. COVID pneumonia as by primary. Time spent examining the patient [id number] discussing the case with the patient reviewing the data including her Radiology and laboratory, discussing the case with the steam drier tender including nursing placing order discussing the case with the primary hospitalist 65-minute ABDULAZIZ Voice ID: [id number] Report ID: [id number] MTDD
--- NOTE | 2021-08-02 19:20 | RAD REPORT ---
EXAM DESCRIPTION: US - Renal Ultrasound-Complete - 08/02/2021 6:44 pm CLINICAL HISTORY: hematuria COMPARISON: Abdomen Pelvis Wo Contrast dated 07/10/2021 FINDINGS: The right kidney measures 14.4 x 0.1 x 5.8 cm. The left kidney measures 10.1 x 6.2 x 3.5 centimeter. There is pronounced hydronephrosis of the right side pelvis and calices. This occupies th e majority volume of the right kidney. Cortical thinning is present. There is heterogeneity the thin cortical remnant. CT imaging showed numerous variable density small rounded masses. No one dominant o r more suspicious finding mass of the right kidney seen. Numerous small cystic masses of the left kid karla are also noted. Cortical thickness is normal on the left kidney. Again, no one mass was more dist inguishable as a concern for an aggressive renal mass. Bladder is contracted limiting detail. No accurate assessment can be performed. IMPRESSION: Severe hydronephrosis filling the majority of the right renal volume with significantly thinned right renal cortex. Numerous heterogeneous masses of each kidney consistent with the polycystic kidney pattern. No one le nely is seen that has clearly more suspicious or concerning characteristics.
[2021-08-02] MEDS: ARFORMOTEROL TARTRATE 15 MCG/2 ML VIAL.NEB IH SCH (20:00)
[2021-08-02] MEDS: ATORVASTATIN 40 MG TAB PO SCH (20:59)
[2021-08-02] MEDS ORDERED: ATORVASTATIN 40 MG TAB PO SCH (21:00)
[2021-08-02] MEDS ORDERED: predniSONE 20 MG TAB PO SCH (21:00)
[2021-08-02] MEDS ORDERED: FORMOTEROL FUMARATE 20 MCG/2 ML IH SCH (21:00)
[2021-08-02] MEDS: carvediloL 3.125 MG TAB PO SCH (21:00)
--- NOTE | 2021-08-02 23:04 | CON ---
Reason For Consultation: History of bladder cancer and recurrent gross hematuria. History Of Present Illness: Mr. Kelly is a 76-year-old gentleman whom I previously saw in consulta tion back in October 2020 with end-stage renal disease, on hemodialysis, Sunday, Sunday, and Sunday in [place] via a left upper extremity AV fistula, who also has COPD, hypertension, known polycysti c kidney disease, coronary artery disease, and known abdominal aortic aneurysm. 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 The patient sees Dr. Huang in [place] and has undergone multip le cystoscopies and intervention by him over the course of the last 2 years. He has long been schedu led and recommended for what sounds to be radical cystoprostatectomy and at least right, if not bilat eral, nephrectomy, but it appears there have been multiple delays due to his underlying health condit ions that have prohibited that surgical management. This was the case on his last visit when I saw vik win as an inpatient. On this current admission, he was admitted because of generalized malaise and di scomfort associated with a diagnosis of COVID, causing edema and exacerbating his COPD, on chronic ho me oxygen therapy. He denies any gross hematuria prior to admission, but notes that once a urethral Dorman catheter was placed for monitoring of his fluid status, since that time, he has had significant gross hematuria. He was very uncomfortable with the catheter in place, so it was removed earlier to day, and he has voided 1 time since then. His notes that he usually voids somewhere between 1 a nd 3 times a day because of being on dialysis. The urine from earlier was stored in a urinal sitting at the bedside. Past Medical History: As above to include ESRD, on HD; COPD, requiring home O2; CAD; AAA. Family History: He has a history of polycystic kidney disease as well as coronary artery disease. Social History: He is an ex-smoker. Physical Examination: General: The patient is alert and awake, in no acute distress. There is no active dyspnea at this t fadi, though he does periodically cough. Abdomen: Soft, nontender, nondistended, and no masses were palpable. Genitourinary: He had no suprapubic tenderness. The urine in the urinal reserved at the bedside was grossly bloody, but no clots were noted. Laboratory Analyses: White blood count 12; hemoglobin 10.5 and 10.4 from one day to the next, stable . Creatinine not measured. Renal ultrasound obtained, report not available from today, but evidence of significant pelvocaliecta sis or potentially just renal cysts. Assessment And Recommendation: Mr. Kelly is a 76-year-old gentleman with end-stage renal disease, on hemodialysis via a left upper extremity arteriovenous fistula; with chronic obstructive pulmonary disease, requiring home O2; hypertension; atrial fibrillation, on Eliquis; hypothyroidism; and well-k nown bladder cancer with recurrent gross hematuria, managed by Dr. Huang, with associated bilater al polycystic kidney disease and complex cystic, possibly solid renal masses, who was planned for cys toprostatectomy and bilateral nephrectomy with Dr. Huang, but now has recurrent gross hematuria. Since the urethral Dorman catheter has been removed and the patient has demonstrated the ability to vo id, but since he does not produce urine regularly given his dependence on dialysis, I recommend a lydia dder scan be obtained if he is successfully able to void again to assess the postvoid residual, or a bladder scan should be obtained if he develops an urgency to void, but is unable to do so. Certainly , if unable to void, a urethral Dorman catheter should be reinserted, and I would recommend an 18 or 2 0-[place]-tipped catheter be inserted at minimum. Consider the source of the elevated white count and sending his next urine for culture to rule out in fection. Beyond this, as long as the patient is sufficiently able to void, he has a very complex situation rel ative to his bladder cancer, currently managed by Dr. Huang. The patient nor his were familiar with the stage of his bladder cancer, and the substance of the ir recollection of discussions with Dr. Huang included either proceeding with cystoprostatectomy and bilateral nephrectomy, or simply what sounds like a palliative approach of intermittent cystoscop ic resections and management of the hematuria. Clearly, many considerations have already been undert aken between the family and Dr. Huang as it relates to his current condition of his bladder cance r, so we would not intervene in that circumstance, but instead recommend he follow up with Dr. Maisha rosenberg immediately on discharge. In the meantime, should the patient demonstrate progressive anemia associated with the gross hematuri a, or if he is unable to void and requires a catheter with significant ongoing gross hematuria causin g progressive anemia, we would then consider operative management at that time. IZA/MATTHEW Voice ID: [id number] Report ID: [id number]
[2021-08-03] MEDS ORDERED: LEVOTHYROXINE SOD 0.088 MG TAB PO SCH (06:30)
[2021-08-03 06:35] LABS: Absolute Lymphocytes (CBC) 0.4 K/uL (0.7-4.9); Lymphocytes % 3.8 % (15.3-44.8); MPV 10.1 fL (7.6-11.3)
[2021-08-03 07:25] LABS: Albumin 2.4 g/dL (3.4-5.0); Bilirubin Total 0.6 mg/dL (0.2-1.0); C-Reactive Protein 35.4 mg/L (<3.00); Phosphorus 5.8 mg/dL (2.5-4.9); Protein, Total 6.1 g/dL (6.4-8.2)
[2021-08-03] MEDS: SEVELAMER CARBONATE 800 MG TABLET PO SCH ×2 (08:00→12:00)
[2021-08-03] MEDS: ARFORMOTEROL TARTRATE 15 MCG/2 ML VIAL.NEB IH SCH (08:00)
[2021-08-03] MEDS: FUROSEMIDE 40 MG/4 ML VIAL IV SCH (09:09)
[2021-08-03] MEDS: carvediloL 3.125 MG TAB PO SCH (09:10)
[2021-08-03] MEDS: dexAMETHasone 4 MG TAB PO SCH (09:10)
[2021-08-03] MEDS: AMIODARONE HCL 200 MG TAB PO SCH (09:10)
[2021-08-03 10:44] VITALS: O2SAT 98
[2021-08-03] MEDS ORDERED: EPOETIN 4,000 UNIT/ML VIAL IV SCH (11:00)
--- NOTE | 2021-08-03 11:19 | PN ---
Date of Progress Note: 08/03/2021 Subjective: The patient was admitted to the hospital with COVID pneumonia, found to have hyperkalemia. The patient was taken for urgent dialysis. We dialyzed him on low potassium bath. The patient tolerated the dialysis yesterday. The patient feeling okay. Physical Examination: Vital Signs: Blood pressure 110/56, pulse of 74. Chest: Clear to auscultation. Heart: S1, S2. Regular. Abdomen: Soft, nontender. Extremity: No edema. Neurologic: Alert. No focality. Laboratory Data: WBC 11, H and H 9.9/31. Sodium 134, potassium 5, bicarb 26, BUN 64, creatinine 7.9, calcium 8.4, phosphorus 5.8. Current Medications: The patient on include Eliquis, amiodarone, carvedilol 3.125 b.i.d., atorvastatin, Tylenol, Renvela, Lasix 40 b.i.d., ipratropium, dexamethasone. Assessment And Plan: 1. End-stage renal disease with hyperkalemia. We will dialyze the patient to back him on his schedule. We will dialyze on 2K potassium bath and we will follow up. 2. Hypertension, controlled, optimal. We will continue current treatment. 3. Hyperkalemia. The patient is going to be dialyzed on low-potassium bath. 4. Anemia of chronic kidney disease. We will resume Retacrit. 5. Hematuria. The patient known to have bladder carcinoma. Urine culture negative. I do not see the need for antibiotic for urinary tract infection. 6. COVID pneumonia as by primary. Continue current antibiotic. Time spent examining the patient [id number] discussing the case with the patient explain the treatment plan reviewing the data including laboratory. And radiology placing order discussing the case with the sales floor team member including nursing staff and charge nurse discussing the case with all her subspecialty including hospitalist 35-minute TOM/MATTHEW Voice ID: [id number] Report ID: [id number] MARY
[2021-08-03 12:36] VITALS: BP 97/48; TEMP 96.6
[2021-08-03 14:08] LABS: Magnesium 2.2
== END 2021-08-03 18:30 | disposition home or self-care (01) | DRG 177 ==
LOC: ER 21:12 → ERHOLD 08-01 00:02 → 4TH 08-01 08:19
PROVIDERS: ADMIT Hospitalist; ATTEND Hospitalist
PROC: 5A1D70Z Performance of Urinary Filtration, Intermittent, Less than 6 Hours Per Day (ICD-10-PCS; principal; 2021-08-02)
DX: U07.1 COVID-19 (principal); N18.6 End stage renal disease; J12.82 Pneumonia due to coronavirus disease 2019; I12.0 Hypertensive chronic kidney disease with stage 5 chronic kidney disease or end stage renal disease; J81.1 Chronic pulmonary edema; J44.1 Chronic obstructive pulmonary disease with (acute) exacerbation; J44.0 Chronic obstructive pulmonary disease with (acute) lower respiratory infection; E87.70 Fluid overload, unspecified; I48.91 Unspecified atrial fibrillation; E78.5 Hyperlipidemia, unspecified; D63.1 Anemia in chronic kidney disease; E87.5 Hyperkalemia; E03.9 Hypothyroidism, unspecified; I71.2 Thoracic aortic aneurysm, without rupture; D72.825 Bandemia; R31.0 Gross hematuria; R31.9 Hematuria, unspecified; Z79.890 Hormone replacement therapy; Z79.52 Long term (current) use of systemic steroids; Z79.899 Other long term (current) drug therapy; Z85.51 Personal history of malignant neoplasm of bladder; Z99.2 Dependence on renal dialysis; Z87.891 Personal history of nicotine dependence; Z99.81 Dependence on supplemental oxygen; Z79.01 Long term (current) use of anticoagulants
CPT/HCPCS: 0240U; 36415; 51702; 70450; 70551; 71045; 76770; 80048; 80053; 80076; 81003; 81015; 83605; 83735; 83880; 84100; 84132; 84145; 84484; 85025; 85610; 86140; 87040; 87086; 87088; 90935; 93005; 93880; 94010; 94760; 96374; 96375; 99285; J0692; J1940; J2920; J8540

== ENCOUNTER 2021-09-09 09:00 | Emergency (ER) | payer OTHER ==
--- OUTSIDE RECORDS SUMMARY | 2021-09-09 09:08 | XMS REPORT | Continuity of Care Document ---
:1945 Author Organization [facility] t Address [address] [place] [address] Care Team Providers Name Role Phone Asked, Pcp Primary Care Physician Unavailable RAMESH HUANG Attending Clinician Unavailable ALYSSA FARRIS Attending Clinician Unavailable TONNY ACEVEDO Attending Clinician Unavailable AMY GORMAN Attending Clinician Unavailable SUMANTH NOLAN Attending Clinician Unavailable Ramesh Huang MD Attending Clinician Yuliet WOOD Attending Clinician Alyssa Farris MD Attending Clinician Jasvir Dixon MD Attending Clinician Deb Oliveira CRNA Attending Clinician Thee Burton CRNA Attending Clinician Vishal eKen MD Attending Clinician Waqar Villatoro MD Attending Clinician Mattie Garcia NP Attending Clinician Adenike Ocampo NP Attending Clinician Tonny Acevedo MD Attending Clinician RAMESH HUANG Admitting Clinician Unavailable ALYSSA FARRIS Admitting Clinician Unavailable TONNY ACEVEDO Admitting Clinician Unavailable KAYDEN Admitting Clinician Unavailable Payers Payer Name Policy Type Policy Number Effective Expiration Source Date Date MEDICARE A B [id number] 2010 00:00:00 [employer] [id number] 2016 00:00:00 CDC REVIEW [id number] 2020 2020 00:00:00 00:00:00 MEDICAREMEDICARE PART [id number] 2010 In thodist A AND 00:00:00 Hospital [id number] 2009 [place] AND [id number] 2020 Methodis t [employer] LIFE 00:00:00 Hosp ital AND [id number]/2020-PresentCommercia l Problems Condition Condition Condition Status Onset Resolution Last Treating Co mments Source Name Details Category Date Date Treatment Clinician Date 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 Medical 00 [place] Hematuria Hematuria Disease Active [facility] Altered Altered Disease Active [facility] - status status 00:00: Medical 00 Center [...] 00 Center COPD COPD Disease Active Last [facility] (chronic (chronic 6-27 Assessmen [facility] - obstructiv obstructiv 00:00: t & Plan: Medical e e 00 [facility] Center pulmonary pulmonary d with disease) disease) inhalers. No history of smoking. Asthma Asthma Disease Active [facility] ESRD (end ESRD (end Disease Active [facility] stage stage [facility] - renal renal Medical disease) disease) Center Dialysis Dialysis Disease Active [facility] S t patient patient [facility] S/P S/P Disease Active [facility] carotid carotid 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 [facility] Bradycardi Bradycardi Disease Active C HI [facility] a a [facility] Hypothyroi Hypothyroi Disease Active C [facility] dism, dism, kes - unspecifie unspecifie Me dical d type d type Center ESRD on ESRD on Disease Active [facility] hemodialys hemodialys [facility] is is Medical Center Allergies, Adverse Reactions, Alerts Allergy Allergy Status Severity Reaction(s) Onset Inactive Treating Comm ents Source Name Type Date Date Clinician NO KNOWN Allergy Active [facility] Family History Family Member Diagnosis Comments Start Date Stop Date Source Natural father Hypertension [facility] Natural father Heart disease [facility] Natural father Heart failure [facility] Natural mother Cancer [facility] Natural mother Hypertension [facility] Natural sister COPD [facility] Natural brother Cancer [facility] Natural daughter Polycystic kidney C HI [facility] Social History Social Habit Start Date Stop Date Quantity Comments Source History of tobacco Smoker [facility] Sex Assigned [facility] Tobacco use and 2021-02-10 2021-02-10 Never used [facility] - exposure 00:00:00 00:00:00 Medical [place] Alcohol intake 2021-02-10 2021-02-10 Current [facility] - 00:00:00 00:00:00 non-drinker of Medical Ce nter alcohol (finding) History SDVT 2020-07-29 2020-07-29 1 [facility] Frequency 00:00:00 00:00:00 Hospita l History SDOH 2020-07-29 2020-07-29 99 [facility] Alcohol Std Drinks 00:00:00 00:00:00 Hospit al History SDVT 2020-07-29 2020-07-29 1 [facility] Alcohol Binge 00:00:00 00:00:00 Hospital Smoking Status Start Date Stop Date Source Former smoker 2021-02-10 00:00:00 2021-02-10 00:00:[address] [facility] Medications Ordered Filled Start Stop Current [...] daily. Medical 08 Center calcium Yes 1{tbl} [id number] Take [address] [address] carbonate 8-19 [id number] tablet by [facility] - (Calcium 13:26: 3D [...] 00:00 mouth. Medica l capsule 29 :00 [place] levoFLOXaci 2020- No 250mg QD Take [address] n - 04-27 mg by [facility] - (LEVAQUIN) 16:01: 00:00 mouth Medic al 250 MG 25 :00 daily. Center tablet predniSONE No 20mg QD Take [address] (DELTASONE) 10-19 04-27 by mouth [facility]pin [facility] - 20 MG 16:00: 00:00 daily. Medical tablet 39 :00 [place] metoprolol 2020- No 50mg Q.5D Take 50 [...] Take [address] [facility] (PROSCAR) 5 09-03 04-11 tablet (5 Yuliet kes - mg tablet 00:00: 23:59 mg total) Me dical 00 :00 by mouth Center daily for 30 days. oxybutynin 2020- No 5mg [id number] Take [address] (DITROPAN) 311 04-10 [id number] tablet (5 [facility] - 5 MG tablet [...] while taking narcotic based pain meds. traMADoL 15282 50mg Q6H Take 1 Metho di (Ultram) [...] cm WEIGHT 2020-01-29 00:00:00 82 kg WEIGHT 2021-08-12 09:21:00 79.833 kg WEIGHT 2021-04-21 08:33:00 77.883 kg WEIGHT [...] cm Systolic blood 2021-02-10 13:25:00 131 mm[Hg] [facility] Diastolic blood 2021-02-10 13:25:00 65 mm[Hg] [facility] Heart rate 2021-02-10 13:25:00 101 /min [facility] Body temperature 2021-02-10 13:25:00 36.72 Jailyn [facility] Body weight 2021-02-10 13:25:00 78.427 kg [facility] BMI 2021-02-10 13:25:00 27.08 kg/m2 [facility] Respiratory rate 2020-10-27 17:00:00 18 /min [facility] Oxygen saturation in 2020-10-27 17:00:00 98 /min [facility] Arterial blood by Medical Ce nter Pulse oximetry Body height 2020-10-23 02:16:00 170.2 cm [facility] Systolic blood 2020-07-29 16:16:00 136 mm[Hg] [facility] pressure Diastolic blood 2020-07-29 16:16:00 65 mm[Hg] [facility] pressure Heart rate 2020-07-29 16:16:00 90 /min [facility] Body temperature 2020-07-29 16:16:00 37.17 Jailyn [facility] Oxygen saturation in 2020-07-29 16:16:00 95 /min [facility] Arterial blood by Pulse oximetry Respiratory rate 2020-07-29 16:15:00 12 /min [facility] Body height 2020-07-29 11:29:00 177.8 cm [facility] Body weight 2020-07-29 11:29:00 82.3 kg [facility] BMI 2020-07-29 11:29:00 26.03 kg/m2 [facility] Procedures Procedure Date / Time Performing Clinician Source Performed URINE CULTURE, ROUTINE 2021-01-13 15:02:[address] [facility] URINE CULTURE, ROUTINE 2020-11-04 15:40:[address] [facility] UA/M W/RFLX CULTURE, 2020-11-04 15:40:00 ReinaSebas [facility] MICROSCOPIC EXAMINATION 2020-11-04 15:40:00 ReinaSebas [facility] PREPARE LEUKO-REDUCED 2020-10-28 23:54:00 Keith [facility] RBC [facility] TRANSFUSE LEUKO-REDUCED 2020-10-27 11:34:36 Keith [facility] RED BLOOD CELLS [facility] HEMODIALYSIS INPATIENT 2020-10-27 07:47:37 Keith [facility] BASIC METABOLIC PANEL 2020-10-27 04:39:00 Sebas Huang [facility] (7) [facility] CBC W/PLT COUNT & AUTO 2020-10-27 04:39:[address] [facility] BASIC METABOLIC PANEL 2020-10-26 03:41:00 Reina [facility] () [facility] CBC W/PLT COUNT & AUTO 2020-10-26 03:41:00 Suzan Magdaleno [facility] TISSUE EXAM 2020-10-25 18:39:[address] [facility] CYSTOSCOPY,INSERTION 2020-10-25 17:37:00 Sebas Huang [facility] - URETERAL STENTS [facility] POTASSIUM 2020-10-25 13:16:00 Cuauhtemoc Dixon [facility] HEPATITIS B SURFACE 2020-10-25 09:18:00 Robert Hector [facility] HEMODIALYSIS INPATIENT 2020-10-25 08:42:58 Tawny [facility] BASIC METABOLIC PANEL 2020-10-25 06:09:00 [facility] (7) [facility] PHOSPHORUS 2020-10-25 06:09:00 [facility] (HEMOGRAM ONLY) 2020-10-25 06:09:00 Jean Carlos [facility] TYPE AND SCREEN, 2020-10-24 13:45:00 Sebas Huang [facility] kes - AUTOMATED [facility] HEPATITIS B SURFACE 2020-10-23 14:18:00 Tawny [facility] HEMODIALYSIS INPATIENT 2020-10-23 11:41:00 Tawny [facility] BASIC METABOLIC PANEL 2020-10-23 04:31:00 [facility] CBC W/PLT COUNT & AUTO 2020-10-23 04:31:00 [facility] SARS-COV2/RT-PCR ([facility] & 2020-10-22 23:20:00 Sebas Huang [facility] - REF LABS) [facility] CT ABDOMEN/PELVIS WITH 2020-10-22 21:31:00 Lyndsey [facility] IV CONTRAST [facility] Center CBC W/PLT COUNT & AUTO 2020-10-22 21:12:00 [facility]dsey [facility] URINE CULTURE 2020-10-22 11:48:00 Sebas Huang [facility] BASIC METABOLIC PANEL 2020-10-22 11:48:[address] (7) [facility] CBC W/PLT COUNT & AUTO 2020-10-22 11:48:00 Se[facility] DIFFERENTIAL [facility] PT/APTT 2020-10-22 11:48:00 Sebas Huang [facility] TYPE AND SCREEN, 2020-10-22 11:48:[address] Yuliet kes - AUTOMATED [facility] CT ABDOMEN/PELVIS WITH & 2020-09-21 13:12:[address] [facility] MR ABDOMEN WITHOUT IV 2020-09-02 11:20:00 Reina, Sebas [facility] - CONTRAST [facility] MR PELVIS WITHOUT IV 2020-09-02 11:20:00 Reina, Sebas GASPAR S t [facility] - CONTRAST [facility] TISSUE EXAM 2020-08-31 12:53:00 Reina, Sebas GASPAR [facility] - [facility] FL FLUORO NON-SPECIFIC 2020-08-31 12:50:00 Sebas [facility] TO 1 HOUR [facility] CYSTOSCOPY,INSERTION 2020-08-31 11:42:00 Sebas Huang [facility] - URETERAL STENTS [facility] CBC W/PLT COUNT & AUTO 2020-08-31 04:50:00 Arianna Whitt [facility] COMPREHENSIVE METABOLIC 2020-08-31 04:50:00 Pedro Farris I [facility] MAGNESIUM 2020-08-31 04:50:00 Pedro Farris [facility] NM MYOCARDIAL PERFUSION 2020-08-30 16:44:00 Sebas Huang [facility] - SPECT, PHARM(LEXISCAN) [facility] enter HEMODIALYSIS INPATIENT 2020-08-30 11:55:05 Jluis Parker [facility] CBC W/PLT COUNT & AUTO 2020-08-30 05:14:00 OnArianna salcido [facility] LIPID PANEL 2020-08-30 05:14:00 Ty, [facility] 2D ECHO W/ DOPPLER 2020-08-29 13:22:39 Ty, [facility] (CW/PW/COLOR) [facility] T4, FREE 2020-08-29 12:22:00 Ty, [facility] TSH 2020-08-29 12:22:00 Ty, [facility] FERRITIN 2020-08-29 12:22:00 Ty, [facility] VITAMIN B12 2020-08-29 12:22:00 Ty, [facility] PSA 2020-08-29 12:22:00 Ty, [facility] US RENAL COMPLETE 2020-08-29 11:15:00 Sebas Huang [facility] CT BRAIN WITHOUT IV 2020-08-29 05:02:00 Steve Welsh [facility] TROPONIN I 2020-08-29 04:21:00 Emilio [facility] BASIC METABOLIC PANEL 2020-08-29 04:21:00 Jose Eduardo [facility] () [facility] CBC W/PLT COUNT & AUTO 2020-08-29 04:21:00 Jose Eduardo [facility] RETICULOCYTE COUNT 2020-08-29 04:21:00 Ty, [facility] OCCULT BLOOD, STOOL 2020-08-29 02:52:[address] [facility] TROPONIN I 2020-08-28 16:08:00 Emilio [facility] HEPATITIS B SURFACE 2020-08-28 16:06:00 Keith [facility] ANTIGEN [facility] HEPATITIS B SURFACE 2020-08-28 15:26:00 [facility] ANTIBODY [facility] HEMODIALYSIS INPATIENT 2020-08-28 11:36:37 [facility] TROPONIN I 2020-08-28 05:56:00 Pongvacannie [facility] CBC W/PLT COUNT & AUTO 2020-08-28 05:56:00 Pedro Farris [facility] BASIC METABOLIC PANEL 2020-08-28 05:56:00 Pedro Farris [facility] () [facility] ECG 12-LEAD 2020-08-28 01:21:18 Unknown, Hl7 Doctor [facility] HEMOGLOBIN A1C 2020-08-28 01:19:00 [facility]URE 2020-08-28 01:05:00 [facility] URINALYSIS W/ REFLEX 2020-08-28 01:05:00 Owen Jhaveri [facility] URINE CULTURE [facility] CBC W/PLT COUNT & AUTO 2020-08-28 01:05:00 [facility] COMPREHENSIVE METABOLIC 2020-08-28 01:05:[address] [facility] MAGNESIUM 2020-08-28 01:05:00 Owen Jhaveri [facility] PHOSPHORUS 2020-08-28 01:05:00 [facility] PROTHROMBIN TIME/INR 2020-08-28 01:05:00 Owen Jhaveri [facility] HEPATIC FUNCTION PANEL 2020-08-28 01:05:00 Emilio [facility] LIPID PANEL 2020-08-28 01:05:00 [facility] REPORT OF PROCEDURE - 2020-08-27 00:00:00 Provider, Yoko [facility] ENDOSCOPY SCAN Scanning [facility] TN AN ELECTIVE 2020-07-29 14:11:47 Rafael Blas Ho spital ENDOTRACHEAL AIRWAY THROMBECTOMY, GRAFT, AV 2020-07-29 13:39:[address] [facility] POTASSIUM, SYRINGE 2020-07-29 13:00:00 Jose Keen [facility] POTASSIUM, SYRINGE 2020-07-29 12:11:00 Jose Keen t Hospital HEMOGLOBIN, SYRINGE 2020-07-29 12:11:[address] [facility] GLUCOSE LEVEL, SYRINGE 2020-07-29 12:11:00 Jose Keen [facility] ECG PRE/POST OP 2020-07-27 21:26:54 [facility] HEMOGLOBIN A1C 2020-07-27 21:19:00 [facility] HEMOGLOBIN 2020-07-27 21:19:00 KeenJose Jey [facility] POTASSIUM LEVEL 2020-07-27 21:19:00 [place] [facility] GLUCOSE LEVEL 2020-07-27 21:19:00 [facility] COVID-19 QUALITATIVE 2020-07-27 20:57:00 [place] [facility] RT-PCR RHYTHM STRIP - SCAN 2020-02-19 12:30:59 Provider, Default [facility] - Scanning [facility] Plan of Care Planned Activity Planned Date Details Comments Source Future Scheduled 2021-08-[address] [facility] - Test 00:00:00 malignant neoplasm of Medica l [place] colon (procedure) [code = 478265651] Future Scheduled 2021-02-23 INFLUENZA VACCINE (#1) C [...] 00:00:00 (1 of 1 - Medical Center [id number] PCV13) [code = PNEUMOCOCCAL 65+ YRS (1 of 1 - ENDA91_Fyylzgm PCV13)] Future Scheduled 1995 SHINGLES VACCINES (1 [...] Center SCREENING] Future Scheduled Hepatitis C screening [facility] Test (procedure) [code = 432159858] Future Scheduled COLONOSCOPY SCREENING Me [facility] Test [code = COLONOSCOPY SCREENING] Future [...] Type Clinicians Facility Department ID 2021-04-03 Outpatient [facility] Surgery [id number] SLSL 11:01:56 SEBAS 2021-04-02 Outpatient [facility] Surgery [id number] SLS 16:32:40 SEBAS 2021-04-02 Inpatient BRENTON [facility] [id number] SLS 06:41:40 [facility] 2021-03-30 Inpatient [facility] Surgery [id number] SLE 02:21:06 BIN 2021-09-20 2021-09-20 Outpatient [facility] [id number] [facility] 00[facility]00:00 [facility] 2021-08-12 2021-08-12 Outpatient [facility] [id number] 09:00:39 10:05:10 [facility] 2021-08-11 2021-08-11 Outpatient [facility] [id number] [facility] 00[facility]00 [facility] 2021-06-07 2021-06-07 Outpatient ADELINA [facility] [id number] SLE 08:31:56 08:31:56 [place] 2021-05-26 2021-05-26 Outpatient EL TREVOR, SLE SLEH [id number] SLEH 00:00:00 00:00:00 BIN 2021-04-26 2021-04-26 Outpatient EL SLSL SLSL [id number] SLSL 13:26:28 23:59:00 2021-04-26 2021-04-26 Outpatient EL REINA, SLSL SLSL [id number] SLSL 13:26:17 23:59:00 SEBAS 2021-04-21 2021-04-21 Outpatient REINA, [facility] [id number] [facility] 08:21:47 09:25:29 [facility] 2021-04-12 2021-04-12 Outpatient REINA, [facility] [id number] 00:[facility]00 00:00:00 [facility] 2021-03-31 2021-03-31 Outpatient REINA, [facility] [id number] 08:49:29 10:07:05 [facility] 2021-03-24 2021-03-24 Outpatient SLSL [facility] [id number] SLSL 00:00:00 00:00:00 2021-03-24 2021-03-24 Outpatient EL SLSL [facility] [id number] SLSL 00:00:00 00:00:00 2021-03-24 2021-03-24 Outpatient REINA, [facility] [id number] 00:[facility]00 00:00:00 [facility] 2021-03-22 2021-03-22 Outpatient REINA, [facility] [id number] 00:[facility]00 00:00:00 [facility] 2021-03-17 2021-03-17 Outpatient EL SLSL SLSL [id number] SLSL 00:00:00 00:00:00 2021-03-17 2021-03-17 Outpatient REINA, [facility] [id number] 00:[facility]00 00:00:00 [facility] 2021-03-11 2021-03-11 Outpatient EL SLSL [facility]SL [id number] SLSL 00:00:00 00:00:00 2021-02-17 2021-02-17 Telephone Reina [facility] [id number] 00:[facility]00 00:00:00 [facility] 2021-02-10 2021-02-10 Procedure Reina [facility] [id number] 13:12:47 14:02:58 visit [facility] 2021-01-27 2021-01-27 Outpatient REINA [facility] [id number] 00:[facility]00 00:00:00 [facility] 2021-01-27 2021-01-27 Orders Reina [facility] [id number] 00:00:00 00:00:00 Only [facility] 2021-01-13 2021-01-13 Office Reina [facility] [id number] 08:59:50 10:28:11 Visit [facility] 2020-12-07 2020-12-07 Office Reina [facility] [id number] 09:28:24 11:43:01 Visit [facility] 2020-12-02 2020-12-02 Telephone Reina [facility] [id number] 00:[facility]00 00:00:00 [facility] 2020-11-04 2020-11-04 Office Reina [facility] [id number] 08:50:13 10:38:54 Visit [facility] 2020-10-28 2020-10-28 Outpatient EL SLSL SLSL [id number] SLSL 00:00:00 00:00:00 2020-10-22 2020-10-27 [facility] Rayshawn Otero [facility] [id number] [facility] 20:30:00 17:53:00 Encounter Pedro Farris [facility] 2020-10-25 2020-10-25 Anesthesia Cuauhtemoc Dixon uriel [facility] [id number] [facility] 17:37:00 18:41:00 Event Emili Oliveira [facility] 2020-10-25 2020-10-25 Surgery Reina, [facility] [id number] 13:30:00 14:45:00 [facility] 2020-10-23 2020-10-23 Travel [facility] [id number] [facility] 00:[facility]00 00:00:00 [facility] 2020-10-22 2020-10-22 [facility] [id number] 11:47:21 20:29:00 Encounter [facility] 2020-10-22 2020-10-22 Emergency [facility] [id number] [facility]SL 20:14:00 20:14:00 2020-10-22 2020-10-22 [facility] [id number] SLSL 00:00:00 00:00:00 2020-10-19 2020-10-19 Travel [facility] [id number] [facility] 00:[facility]00 00:00:00 [facility] 2020-10-19 2020-10-19 Telephone [facility] [id number] 00:[facility]00 00:00:00 [facility] 2020-10-06 2020-10-06 Telephone Reina [facility] [id number] [id number] 00:00[facility]00 00:00:00 [facility] 2020-09-30 2020-09-30 Office Reina [facility] [id number] 13:08:05 14:49:10 Visit [facility] 2020-09-21 2020-09-21 [facility] [id number] 12:18:35 23:59:00 Encounter [facility] 2020-09-21 2020-09-21 Outpatient EL SLSL [facility] [id number] [facility]SL 00:00:00 00:00:00 2020-09-20 2020-09-20 Outpatient EL SLSL [facility] [id number] SLSL 00:00:00 00:00:00 2020-09-16 2020-09-16 Outside [facility] [id number] 00:[facility]00 00:00:00 Orders [facility] 2020-09-13 2020-09-13 Office [facility] [id number] 15:09:40 17:08:47 Visit [facility] 2020-08-27 2020-09-02 [facility] [id number] 22:17:00 14:43:00 Encounter [facility] 2020-08-31 2020-08-31 Anesthesia [facility] [id number] [facility] 11:42:00 13:11:00 Event Carroll Burton [facility] 2020-08-31 2020-08-31 Surgery [facility] [id number] 11:00:00 12:15:00 [facility] 2020-08-28 2020-08-28 Orders [facility] [id number] 00:00:00 00:00:00 Only [facility] 2020-08-27 2020-08-27 Travel [facility] [id number] [facility] 00:[facility]:00 00:00:00 [facility] 2020-08-26 2020-08-26 Office Robyn Keen.2.840.8 [id number] Methodi 14:27:45 16:08:33 Visit Jose Kelly50.1.[address] 3.430.2.7 Hospit a .3.058529 l .8 2020-08-26 2020-08-26 Travel 1.2.840.1 [id number] [id number] Methodi 00:00:00 00:00:[address] 3[address]430.2.7 0.2.7.3.698 Ho spita .3.584945 084.8 l .8 2020-08-02 2020-08-02 Travel 1.2.840.1 [id number] [id number] Methodi 00:00:00 00:00:[address] 3.430.2.7 0.2.7.3.698 Ho spita .3.020599 084.8 l .8 2020-07-30 2020-07-[address] [facility] 1.2.840.5 [id number] Methodi 00:00:00 00:00:00 Jose Rodgers 80782.1.[address] 3.430.2.7 Hospit a .3.485675 l .8 2020-07-29 2020-07-29 [facility] 1.2.840.1 [id number] Methodi 05:10:00 11:27:00 Encounter Jose Rodgers 65529.1.[address] 3.430.2.7 Hospit a .3.511975 l .8 2020-07-29 2020-07-29 [facility] 1.2.840.1 [id number] Methodi 07:30:00 09:25:00 Jose Rodgers 05293.1.[address] 3.430.2.7 Hospit a .3.516477 l .8 2020-07-29 2020-07-29 Anesthesia Saud Villatoro 1.2.840.1 [id number] Methodi 07:40:00 09:17:00 Event Rose Garcia 57936.1.[address] 3.430.2.7 Hospit a .3.602203 l .8 2020-07-29 2020-07-29 Travel 1.2.840.1 1.2.109.999 [id number] Methodi 00:00:00 00:00:[address] 3.430.2.7 0.2.7.3.698 Ho spita .3.150268 084.8 l .8 2020-07-29 2020-07-29 Orders Damaris, 1.2.840.1 [id number] Methodi 00:00:00 00:00:00 Only Derrick Jeong 11162.1.[address] 3.430.2.7 Hospit a .3.580179 l .8 2020-07-27 2020-07-27 Pre-Admiss Kayden, 1.2.840.1 [id number] Methodi 14:35:19 15:35:19 ion Jose Rodgers 17021.1.[address] Testing 3.430.2.7 Hospit a .3.398635 l .8 2020-07-27 2020-07-27 Travel 1.2.840.1 1.2.428.394 [id number] [id number] Methodi 00:00:00 00:00:[address] 3.430.2.7 0.2.7.3.698 Ho spita .3.250617 084.8 l .8 2020-07-23 2020-07-23 Telephone Keen, 1.2.840.1 [id number] Methodi 00:00:00 00:00:00 Jose Rodgers 88514.1.[address] 3.430.2.7 Hospit a .3.284929 l .8 2020-07-23 2020-07-23 Travel 1.2.840.1 1.2.539.378 [id number] [id number] Methodi 00:00:00 00:00:[address] 3.430.2.7 0.2.7.3.698 Ho spita .3.945115 084.8 l .8 2020-07-22 2020-07-22 Office Kayden 1.2.840.8 [id number] Methodi 14:38:20 15:37:56 Visit Jose Rodgers 90776.1.[address] 3.430.2.7 Hospit a .3.804440 l .8 2020-07-21 2020-07-21 Travel 1.2.840.1 1.2.161.300 8904 [id number] Methodi 00:00:00 00:00:[address] 3.430.2.7 0.2.7.3.698 Ho spita .3.244670 084.8 l .8 2020-02-26 2020-02-[address] [facility] [id number] [facility] 10:18:16 10:14:49 Visit [facility] 2020-02-26 2020-02-26 Outpatient ADELINA ACEVEDO [facility] [id number] SLE 00:00:00 00:00:00 BIN 2020-02-03 2020-02-03 Outpatient ADELINA ACEVEDO [facility] [id number] SLE 00:00:00 00:00:00 BIN 2020-01-30 2020-01-30 Outpatient [facility] [id number] SLE 00:00:00 00:00:00 Results Test Description Test Time Test Comments Results Result [facility] e Comments CT, CHEST, WITH 2021-05-02 Unlisted Reason CONTRAST 15:08:00 for Exam - Click Yes and [facility] Below->No CENTERName: Robbie LONDON : 1945 Sex: [...] Click Yes and [facility] Enter Reason [facility] Below->[facility] CENTERName: Robbie LONDON this procedure [...] Milo Hampton MDReport Verified Date/Time: 05/02/2021 15:08:26 UE EXAM 2021-03-29 Surgical Pathology 15:37:48 Report Case: [id number] Authorizing Provider: Sebas Huang, Collected: 03/28/2021 09:09 AM Ordering Location: [facility] PERIOPERATIVE Received: 03/28/2021 10:51 AM SERVICES Pathologist: [...] FOR EVALUATION Signing Pathologist Direct Phone Line: [phone] ally signed by Ariana Victor MD on 03/29/2021 at 3:37 [id number] tumor, bladder tumorA.bladder tumor, right ureteral orifice; [...] into B1. MG/pl A-B Performed [facility], Department of Pathology, [facility] [place] [address], Gqnhqr [facility], Department of Pathology, [address] [place] [address], [place] [facility], Department of Pathology, [address] [place] [address], POTASSIUM 2021-03-28 07:31:01 Test Item Value Reference Range Interpretation Comme nts POTASSIUM (BEAKER) (test code = 379) 5.9 meq/L 3.6-5.5 H Paradichlorobenzene Tender ID - DSENSONOperator ID - DSENSONOperator ID - DSENSONOperator ID - DSENSONURINE [id number] 08:30:07 Test Item Value Reference Range Interpretation Comments CULTURE (BEAKER) (test code = 1095) No growth SARS-COV2/RT-PCR ([facility])2021-03-25 04:37:04 Test Item Value Reference Range Interpretation Comments SARS-COV2/RT-PCR (test code = Negative Negative 1477065) Negative result for this test determines that [...] the [place] SARS-CoV-2 assay.Fact Sheet for Healthcare Providers:https://www.mTraks.[place]. com. cn/burak/RT SARS-CoV-2 HCP Fact Sheet 51- 131122.pdfFact Sheet for Healthcare Patients:https://www.mTraks.[place]. com. cn/burak/RT SARS-CoV-2 Patient Fact Sheet EN 51-143657R6.pdfBASIC METABOLIC [id number] 13:21:06 Test Item Value Reference Range Interpretation [...] S 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 Paradichlorobenzene Tender ID - DSENSONOperator ID - DSENSONOperator ID - DSENSONOperator ID - DSENSONOperator ID - DSENSONOperator ID - DSENSONOperator ID - DSENSONOperator ID - DSENSONOperator ID - DSENSONOperator ID - DSENSONOperator ID - DSENSONOperator ID - DSENSONOperator ID - DSENSONCBC W/PLT COUNT & AUTO [id number] 13:08:14 Test Item Value Reference Range Interpretation [...] PERCENT (BEAKER) (test code = 2801) URINE [id number] 11:41:14 Test Item Value Reference Range Interpretation Comments CULTURE (BEAKER) (test <10,000 col/mL skin code = 1095) ramírez RAD, CHEST, 2 [id number] 13:50:00Reason for exam:->pre opShould this be performed at the bedside?->No [facility] : 1945 Sex: MFINAL REPORT [...] MDReport Verified Date/Time: 03/11/2021 13:50:52 Reading Location: [facility] Reading Room BASI METABOLIC [id number] 12:05:00 Test Item Value Reference Range Interpretation [...] S 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 Paradichlorobenzene Tender ID - DSENSONOperator ID - DSENSONOperator ID - DSENSONOperator ID - DSENSONOperator ID - DSENSONOperator ID - DSENSONOperator ID - DSENSONOperator ID - DSENSONOperator ID - DSENSONOperator ID - DSENSONOperator ID - DSENSONOperator ID - DSENSONOperator ID - DSENSONPROTHROMBIN TIME/[id number] 11:43:47 Test Item Value Reference Range Interpretation Comments PROTIME (BEAKER) 11.6 seconds 9.3-12.0 Final Infor mation (test code = 759) (Auto Outp ut) INR (BEAKER) (test 1.05 See_Comment Final Inf ormation code = 370) (Auto Output) [Automated mess age] The system [employer] generated this result transmitted ref erence range: [...] 0-0 H PERCENT (BEAKER) (test code = 6251) URINE CULTURE, [id number] 04:06:00 Test Item Value Reference Range Interpretation Comments Urine Culture, SEE NOTE CULTURE, UR INE, Routine (test ROUTINE [place] 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 code = 6506837) Number: [id number] Test Status: Final Specimen Source: URINE Specimen [...] ANSWER AT DR OFFICE TO VERIFY TEST 414422 [facility] W/RFLX CULTURE, [id number] 22:06:00 Test Item Value Reference Range Interpretation Comments Specific Kimberly, UA 1.014 1.005-1.03 (test code = 2965-2) pH, UA (test code = >=9.0 5.0-7.5 A 5803-2) Color, UA (test code [place] Yellow = 9796-4) Appearance (test code Cloudy Clear A = 2212454) WBC Esterase (test 1+ Negative A code = 9898037) Protein, UA (test 3+ Negative/T A code = 93595-7) Glucose, Urine (test Trace Negative A code = 21146-2) Ketones, UA (test Negative Negative code = 2514-8) Blood, UA (test code 3+ Negative A = 72065-5) Bilirubin, UA (test Negative Negative code = 5770-3) Urobilinogen,Semi-Qn 0.2 mg/dL 0.2-1 (test code = 4926506) Nitrite, UA (test Negative Negative code = 07625-8) Microscopic See below: Microscopic was Examination (test indicated and was code = 6314085) performed. Urinalysis Reflex Comment This speci men has (test code = 7687034) reflex ed to a Urine Culture. ТАТЬЯНА (test code = ТАТЬЯНА) Performed at: - [facility] [id number] Director: Calderon Silver MD, Phone: [phone] Lab Interpretation Abnormal (test code = 71721-1) [facility] CenterMICROSCOPIC [id number] 22:06:00 Test Item Value Reference Range Interpretation [...] ТАТЬЯНА (test code = ТАТЬЯНА) Performed at: [address] [place] [address] [id number] Director: Calderon Silver MD, Phone: [phone] Lab Interpretation Abnormal (test code = 44342-8) [facility] CenterPrepare Leuko-Red [id number] 23:54:00 Test Item Value Reference Range Interpretation Comments CROSSMATCH (test code = 2264) COMPATIBLE Unit ABO (test code = O Pos 9281292) UNIT NUMBER (test code = [id number] 934-0) Status (test code = 2586264) [place]_TIMEINCHART Blood Bank Product (test code RED BLOOD CELLS = 2263) PRODUCT CODE (test code = C4653C90 933-2) [facility] CenterTissue [id number] 10:04:00 Test Item Value Reference Range Interpretation Comments Case Report (test code Surgical Pathology = 104) Report Case: [id number] Authorizing Provider: Sebas Huang, Collected: 10/25/2020 06:39 PM Ordering Location: [address] Med/Surg Received: 10/26/2020 07:45 AM Pathologist: Ariana Victor MD Specimens: A) - Bladder Tumor, Bladder clots and right ureteral tumor B) - Bladder Biopsy, Left Wall, left bladder wall C) - Bladder Biopsy, Wall, posterior bladder wall DIAGNOSIS (test code = v4doiTKmPOAhj7mmEJMgcJ 3220) FuZzEwMzNcZnRuYmpcdWMx IHtccnRmMVxlcGljOTIwMl gyolUyLWXqmTQwY1Ycrjlu IZhqVB4jKA0uhWvomRPkmN DwJGXhVzUsx0vxe834gIFq r0cxFCJDgzhirBm3mCgfQ7 9mx3H1YpebR54cuCXeGOry bGFpblxmczIwIEEuIEJMQU QSXJQxA4pCOYVxTM7QYVFD B1cGZWIIDNDBSdFDAGYTXZ 1HFXTMNC8KF9b5RNDcrvTu RTHwPSbIO4lyY2DLEHFuES PLRKoHCXxIWRVTMEJAAB4E CBAsQB2lFFUDZZPIW0UYHI 5KDE6GGZjRTT4XSpqDO3An XS6SC9FHD0wYSBRJSRWOLr FOVUxBVElPTiBUSVNTVUUg Aw7OJRYOUX6MWEZbshPaOQ OaFSXAIO5AFLnCSjHGEDCl OZ0KFiZQBZMJFEAYUHKKFT 1JTkEgUFJPUFJJQVxwYXIg ICAgLSBOTyBERUZJTklUSV RYEP5YE0UVWYQQVDHwEARJ OFEZRSCCFxBTMlOCUK9SNP RHRfKGVvVQWLFWTY7ODVNd lwhdBVCeRn2tKJLBZOMSRZ SUSQXYSGsIXDliOQCKP2JO NRenuIAjOONgPD9tYHWTRP fKCJbUWTHNCKGTC8QtVW3W Y3EMRMEDHPDREaSHLQgUH7 0EZnKQRSHprsJbEYLmAQ9I YZ7SH7AOUTYZJUYfZMRRDV GMYLDVNrLKLaITNF8JOGIH RsXZUdCLLNFWYF2OQEKeqR PyYOTqsdFXNiMHJ3AETBXV Y0GnQieHKCKBXcYEPSbDBE LYSM8HV7w0ZQHmjiWjJQUy ALMMK7CKIItBVArvKYTNN7 CAMLAWBZuKYTeVKZVQJ2Ew AQLERNfKOD6UCNUqeFBgUI DhIX9vZDGNY7TUXIAVOaMN Cz4GBtlTLRtAUGNYOIYGOy DcqXDxNKOvkmBUZp3enTka KUV4n8uogJZtUZUfbCPoNB AwMFxhbnNpXGRlZmxhbmcx OKPfEFV6lwHpPPFlRBrgKH CwYDazVe0olMJezDcrTbFx FJLpi8ynmqJHcczawKx7d6 xwASLzZeA9wVGuNPyfV6cz pjRvoUCjTQQrIPy5pT64GN XcmF0juSLzGFqfdxGbMcJ7 STsyKBDzWqZ6PAThvZKoEU TmJ5myGNNsTAkbZVKyKEct bDAuOLR5kRndp4B6bNRswV PzsQswPqZjZlEhEwVEl1Zq PSa8mXguW2EeFAPhInB8nB QgUGFyYWdyYXBoIEZvbnQ7 cI71GPlyacT3dCAmp2Zzw0 9kc787cO2hpGMrRWZ8HZBq WKIwpYTfLMGdVQV2OHVvjZ MpK5deIOPgAN8qjdyuTXvy GWqqLZUtnGS6DWIdfAFaA5 XiTMUvLTpdZVMmhvx3EfCw Mb0dtGIzeQcjKEadt6hnj6 fsmVCjUhr9YIMbQcMmDdqx YKkgr8Mlk3evZYTdlp7sIH X8pEBykImym3L0yGFaDQXi aVPjJSBwTQ3crPVeHACfyK 5ucmxjXHBnYnJkcmhlYWRc lZyycxSpRo6tzYliOIH6TF euR9ubxH0uPsE4RGyoA3fx yZ0bTWl4IShiYRJgiNC6pf N2DLWjmQKhR2HiuT5yGOJw DP7oako8v1kqKFX3IIbeRE ItDqZ3ngE4ZSBftZXeKQUl qGroNUsdh804JVX2HiBhIN Uqo0IaI8IqnUpgT64jwSbg P06sUFHndPtlxI3lmWylxF 6gGhLfNiCmBMxspVddHS6a EBLrJ6svrWIlWHAvVXIkZ4 dqDtUzlD3liHgmNZkmxsJg VJRyTjw0CPJjlOQbMOCiYc l7ZYAmNBWpW32knmiyFNN4 yD9hy0psd4AgHHigFYW1JI Vva76uHRqjagE4HJxsYj92 BMfxMxT1PLsvFHH2wW== CPT Code(s) (test code w9tlgLIgXLJasTH9ZrSfHQ = 3357) Usw6kcq6UwxEQvoYEoULnu hYClphXolx74gRD3sL71LT 5dRCTdNhP9XOBilvV3Qbg0 AWBjCFAsuUIdJ757c1dzr7 cwqqRugLW7cIfrPPJxQTVz YWluXGZzMjAgODgzMDUgeD NccGFyfQ== CLINICAL HISTORY (test x2cmvWFfUFRicOV8PyAbYX code = 3356) Qyz3wkn3TrnHKfdKQtGEdf kDGvvaJmjf56jOO7bG25OK 0bXCNbQoC2TTKqrdN0Zcy7 XZBdNSZdwTWaM001k7qzk4 hdbrAudZC2oHmeJECpODTf ELanHIOwApTeUHXfVKF5at lkPEIai8VzC6ocoIJpFQS2 lHFfIBTgTOBpmyLbPEI5aE 7uXTSswc5= SPECIMEN SOURCE (test m5jiuIOdZXLmgFX6JdAxDK code = 3377) Qrx8qww7TufQOezNLzELlg lQVtveAqek86iVT5lN12EP 8hRNIdMtY1UASqikS5Gse0 WIWhKXBmiAXsA784e9cpn6 ylocIftZO8lQkrBZHyUONg OIzyXNTuFdZaZI0xQkvwGC LjcmXflE43qdYtrvSotbww aHQgdXJldGVyYWwgdHVtb3 O9SLPpMHqhIkIpAntsKZMj guR6OBxtUdMZPpBSf0W6VY Kpz7TqDsdwAHXstrT4IFyb XHBhcn0= GROSS DESCRIPTION (test g6ucbNOzGYHptPX5DuOlVZ code = 3366) Ouf7geb4FxcDBfvFEnBUdg gXBtnlUqbo61oOL0iH66LZ 3hLYUmHbQ8BBTozsP0Gue4 SRXzYQBcrMSeI221n3urm8 cscmLdjIK4jDhuNCZqZOWu ZOexCWWgUqQkU1MgT4ooFR 4gQSBpcyByZWNlaXZlZCBp ccMbnFzxlOl3QHYhmuRybY UbBGhcUNS4vLNwTRDeTYGd ZVXvZE94M7IpnjHsCAogmN VkaWNhbCByZWNvcmQgbnVt FePmFMHgJOBgFJFbE71urE VkIGFzICJibGFkZGVyIHR1 dI5kNrDnbePmS48xl8ndnR Geo3DmkUTuvUjgtWUoeoKl MLClo0hxJEEcc4H0RXLinn HrzJNceBYpgQTvj1YdxV9g MLoqYBP8DRPoBSC0TECeFB XgiA4sLRnhKKNqLBPmfKBv HTayVTVamHBuu1RfYZQoVT ZprYnbZA20nPiku6NgAqph x6KsN4hwyG9qTw2eLWwueD sea9AiBPMtUNsuFS52npIf cmUgaWRlbnRpZmllZCBtZW YizUNfclalWI31GZlrIQ6y SOqoJN97VLJuIPieAZBqH5 VgL2Z2IQ7wGPhkTXVzn8Y2 ZSBmcmFnbWVudHMgYXJlIG KkyPtaHUs8DGC3Kr5ykWBv ZCBpbnRvIEExIHRvIEEyIG FuZCByZXByZXNlbnRhdGl2 FONsIXD3dE4vwuAgVvC4cJ LxOrgee7UkL4frxZYbgxUg j0KivBx8hXQmRRzujK1aSR MuICBccGFyXHBhciBTcGVj pN1fliZDHEsbDOKgF7Qywg PzRSnpVHZtcKE4pQWfNXPa ZCBsYWJlbGVkIHdpdGggdG nbJVLyeKcrdnKhwaTkAW6h RDOoQHMsK0YlARDbZ96kXT AkkW1zKNJxAH8sWIHvo7lj fpD8OITjGKThRiFjGAFaSK XrPslvgTP7EIyvDiQro8Et fCQdYB4oSYZwodJmj0GnCI 5hNMAtwYuwka68SM7wwDrd b7VhERGjCDilFQ69qwW6zL B6MEbgJEIdKSKasAXcilXt tfLboIWzwDKgyA0gfcAwr5 6aWMOlGHM8eSOmgSHyEmVh O13kohLygHLpOV82pZKkzN rxm8MloHi6kCPjWLctgW9g QjEuIFxwYXJccGFyIFNwZW NpbWVuIEMgaXMgcmVjZWl2 HPZssO9fZcv8ZEIxrwWfYJ 1wWOwrNhMgLHYyu5y3kBX7 vVMseOM7bLHnyWivFL0vcE PrYD0fYDclPEewlaScf2Qb UO97cHYlcvGshcQhMKTzwG duYXRlZCBhcyAiYmxhZGRl dsOcvJ4ud2jau4KpoHGmQR 4eSGJpsoZoq5RxWT7bRICb cTczpm75OY3pbKiya3JwSF CpDPkiRO89QQTtSTGazRRa MV17HNYiRGkzUCggQFH2YL H7LOSrfAOkd6jvjx6nHQps XESgf0A8HAVnsrNztONhtG BpcyBlbnRpcmVseSBzdWJt lLY0ZFYmlE46zmCQAC6hYO ILPm0vzMFylDWgfV== MICROSCOPIC DESCRIPTION w4bjhUZmBSCvhSW5IfVsKV (test code = 3371) Nnz7isa4QslYOitWMpUHxr hTKgvgOkbs57oBK4mI71QE 7fQITjHsS0JARlgrC2Rdt2 NFWeEKFsrYZuP051p8suk1 iijrJavAP7uDziTECvXATf GJtyBNRqXcMxRB8UPoUTMB Ape3NyXXJzDMTjqo9= Gross assessment was . [facility] performed at (test [facility], Department = 2777) of Pathology, [address] [place] [address], Technical component was [facility]'s performed at ([facility]ly [facility], = 2778) Department of Pathology, [address] [place] [address], Professional component [facility] was performed at ([facility], Department code = 2779) of Pathology, [address] [place] [address], [facility] [id number] 10:04:00Surgical Pathology Report Case: [id number] Authorizing Provider: Sebas Huang, Collected: 10/25/2020 06:39 PM OrderingLocation: [facility] 04A Med/Surg Received: 10/26/2020 07:45 AM Pathologist: [...] IS PRESENTMG/pl Signing Pathologist Direct Phone Line: [phone] signed by Ariana Victor MD on 10/27/2020 at 10:04 [id number] unspecified type, ureteral tumorA. Bladder clots and [...] entirely submitted into A1 to A2 and hobbies and crafts sales representative sections of the blood clot [...] entirely submitted into C1. MG/pl A-C: Performed [facility], Department of Pathology, [facility] [place] [address], [employer] [facility], Department of Pathology, [address] [place] [address], Jx. [facility], Department of Pathology, [address] [place] [address], Sn[employer]q Metabolic [id number] 05:29:00 Test Item Value Reference Range Interpretation Comments Sodium (test code = 139 meq/L 709-758 9004-2) Potassium (test code = 5.1 meq/L 3.6-5.5 2823-3) Chloride (test code = 102 meq/L 98-106 2075-0) CO2 (test code = 26 meq/L 20-29 2028-9) BUN (test code = 32 mg/dL 10-26 H 3094-0) Creatinine (test code 9.44 mg/dL 0.5-1.2 H = 2160-0) Glucose (test code = 107 mg/dL 70-110 2345-7) Calcium (test code = 8.8 mg/dL 8.5-10.5 72494-7) EGFR (test code = 5 mL/min/1.73 [place] [address]-2) NOT ACCURATE CREATININE CLEARANCE IN PREDICTING GLOMERULAR FILTRATION RATE . ESTIMATED GFR I S NOT APPLICABLE FOR DIALYSIS PATIENTS. ТАТЬЯНА (test code = ТАТЬЯНА) Paradichlorobenzene Tender ID - [id number] ID - wgut95Ecjqoyjz ID - qrlj40Fxakpuip ID - jaze74Qnkvkmmf ID - lrwy27Rllpxjja ID - acvk34Qnwwcwzj ID - wpzt38Hfojlfhm ID - ureb26Awnbojxn ID - fglh86Uekepxae ID - hees97Qvzlvecq ID - onlm03Ygjswxdy ID - bqla45Ckwvgskk ID - zdxs12 Lab Interpretation Abnormal (test code = 52252-6) [facility] [id number] 05:29:00 Test Item Value Reference Range Interpretation [...] S 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 Paradichlorobenzene Tender ID - [id number] ID - zkfp52Ctagwvff ID - nzwy32Gunzmhhg ID - lduw74Amzofjbs ID - daff94Vfrjrqjv ID - whpz02Xflboimg ID - klhq13Jaspawch ID - uput47Bhqoohyi ID - zjsy32Qfcedpym ID - yder65Rbotzmar ID - nafl88Wxsnwylv ID - dwmd06Kyyzghmw ID - optz59KVK with platelet count + automated [id number] 05:09:00 Test Item Value Reference Range Interpretation Comments WBC (test code = 6690-2) 7.6 See_Comment [A utomated message] The system [employer] generated this result transmitted ref erence range: 4.0 - 10 .0 K/L. The refe rence range was not u sed to interpret this result as normal/abnor mal. RBC (test code = 789-8) 2.28 See_Comment L [Au tomated message] The system [employer] generated this result transmitted ref erence range: 4.20 - 5 .80 M/L. The refe rence range was not u sed to interpret this result as normal/abnor mal. MCHC (test code = 786-4) 31.3 See_Comment L [A utomated message] The system [employer] generated this result transmitted ref erence range: [...] See_Comment [Aut omated message] 777-3) The system [employer] generated this result transmitted ref erence range: 150 - 43 0 K/CU MM. The referen ce range was not u sed to interpret this result as normal/abnor mal. MPV (test code = 9.6 fL 6-11.5 63961-0) nRBC (test code = 413) 0 See_Comment [Aut omated message] The system [employer] generated this result transmitted ref erence range: [...] See_Comment [Aut omated message] 670) The system [employer] generated this result transmitted ref erence range: 1.80 - 8 .00 K/L. The refe rence range was not u sed to interpret this result as normal/abnor mal. # Lymphs (test code = 1.26 See_Comment L [Auto mated message] 414) The system [employer] generated this result transmitted ref erence range: 1.48 - 4 .50 K/L. The refe rence range was not u sed to interpret this result as normal/abnor mal. # Monos (test code = 0.84 See_Comment [Autom ated message] 415) The system [employer] generated this result transmitted ref erence range: 0.00 - 1 .30 K/L. The refe rence range was not u sed to interpret this result as normal/abnor mal. # Eos (test code = 416) 0.25 See_Comment [Au tomated message] The system [employer] generated this result transmitted ref erence range: 0.00 - 0 .50 K/L. The refe rence range was not u sed to interpret this result as normal/abnor mal. # Baso (test code = 417) 0.03 See_Comment [A utomated message] The system [employer] generated this result transmitted ref erence range: 0.00 - 0 .20 K/L. The refe rence range was not u sed to interpret this result as normal/abnor mal. Immature 1 % 0-0 H Granulocytes-Relative (test code = 2801) Lab Interpretation (test Abnormal code = 23806-0) [facility] W/PLT COUNT & AUTO [id number] 05:09:00 Test Item Value Reference Range Interpretation [...] (BEAKER) (test code = 2801) BASIC METABOLIC [id number] 05:21:00 Test Item Value Reference Range Interpretation [...] S 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 Paradichlorobenzene Tender ID - LITOOperator ID - LITOOperator ID - LITOOperator ID - LITOOperator ID - LITOOperator ID - LITOOperator ID - LITOOperator ID - LITOOperator ID - LITOOperator ID - LITOOperator ID - LITOOperator ID - LITOOperator ID - LITOCBC W/PLT COUNT & AUTO [id number] 04:38:00 Test Item Value Reference Range Interpretation [...] (test code = 2801) Hepatitis B surface [id number] 17:58:00 Test Item Value Reference Range Interpretation Comments Hep B S Ab (test code <8.0 See_Comment [Auto mated = 93134-3) message] The system which generated this result transmit radha reference range : <8.0 mIU/mL. e reference range was not used to interpret this result as normal/abnormal . ТАТЬЯНА (test code = ТАТЬЯНА) Paradichlorobenzene Tender ID - DB Lab Interpretation Normal (test code = 06807-6) [facility] [id number] 17:58:00 Test Item Value Reference Range Interpretation Comments HEPATITIS B SURFACE ANTIBODY < mIU/mL <8.0 (BEAKER) (test code = 647) Paradichlorobenzene Tender ID - [id number] 13:35:00 Test Item Value Reference Range Interpretation Comments Potassium (test code = 4.2 meq/L 3.6-5.5 2823-3) ТАТЬЯНА (test code = ТАТЬЯНА) Paradichlorobenzene Tender ID - [id number] ID - [id number] ID - [id number] ID - [id number] Lab Interpretation (test Normal code = 03659-7) [facility] 13:35:00 Test Item Value Reference Range Interpretation Comments POTASSIUM (BEAKER) (test code = 4.2 meq/L 3.6-5.5 379) Paradichlorobenzene Tender ID - [id number] ID - [id number] ID - [id number] ID - [id number] BASIC METABOLIC [id number] 06:45:00 Test Item Value Reference Range Interpretation [...] S 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 Paradichlorobenzene Tender ID - MITCHOperator ID - MITCHOperator ID - MITCHOperator ID - MITCHOperator ID - MITCHOperator ID - MITCHOperator ID - MITCHOperator ID - MITCHOperator ID - MITCHOperator ID - [id number] 06:44:00 Test Item Value Reference Range Interpretation Comments Phosphorus (test code = 5.9 mg/dL 2.5-4.5 H 2777-1) ТАТЬЯНА (test code = ТАТЬЯНА) Paradichlorobenzene Tender ID - MITCHOperator ID - MITCHOperator ID - MITCHOperator ID - STEVE Lab Interpretation Abnormal (test code = 31244-9) [facility] 06:44:00 Test Item Value Reference Range Interpretation Comments PHOSPHORUS (BEAKER) (test code = 5.9 mg/dL 2.5-4.5 H 604) Paradichlorobenzene Tender ID - MITCHOperator ID - MITCHOperator ID - MITCHOperator ID - [id number] (Hemogram only)2020-10-25 06:33:00 Test Item Value Reference Range Interpretation Comments WBC (test code = 6690-2) 10.6 See_Comment H [A utomated message] The system [employer] generated this result transmitted ref erence range: 4.0 - 10 .0 K/L. The refe rence range was not u sed to interpret this result as normal/abnor mal. RBC (test code = 789-8) 2.39 See_Comment L [Au tomated message] The system [employer] generated this result transmitted ref erence range: 4.20 - 5 .80 M/L. The refe rence range was not u sed to interpret this result as normal/abnor mal. MCHC (test code = 786-4) 31.0 See_Comment L [A utomated message] The system [employer] generated this result transmitted ref erence range: [...] See_Comment [Aut omated message] 777-3) The system [employer] generated this result transmitted ref erence range: 150 - 43 0 K/CU MM. The referen ce range was not u sed to interpret this result as normal/abnor mal. MPV (test code = 9.8 fL 6-11.5 30969-4) nRBC (test code = 413) 0 See_Comment [Aut omated message] The system [employer] generated this result transmitted ref erence range: 0 - 0 /1 00 WBC. The refere nce range was not u sed to interpret this result as normal/abnor mal. Lab Interpretation (test Abnormal code = 48522-3) [facility] (HEMOGRAM ONLY)2020-10-25 06:33:00 Test Item Value [...] (test code = 413) Type and screen, [id number] 14:42:00 Test Item Value Reference Range Interpretation Comments ABO/RH AUTOMATED (BEAKER) (test O POSITIVE code = 2260) Ab Scrn (test code = 890-4) NEGATIVE [facility] [id number] 08:07:00 Test Item Value Reference Interpretation Comments [...] 13) >100,000 col/mL skin floraHepatitis B surface [id number] 15:09:00 Test Item Value Reference Range Interpretation Comments HBsAg Screen (test code Nonreactive Nonreactive = 5195-3) ТАТЬЯНА (test code = ТАТЬЯНА) Paradichlorobenzene Tender ID - [id number] Lab Interpretation (test Normal code = 96273-2) [facility]HEPAT[facility] SURFACE [id number] 15:09:00 Test Item Value Reference Range Interpretation Comments HEPATITIS B SURFACE ANTIGEN (2) Nonreactive Nonreactive (BEAKER) (test code = 2585) Paradichlorobenzene Tender ID - [id number] METABOLIC HSMEV0508-13-08 05:03:00 Test Item Value Reference Range Interpretation [...] S 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 Paradichlorobenzene Tender ID - [id number] ID - [id number] ID - [id number] ID - [id number] ID - [id number] ID - [id number] ID - [id number] ID - [id number] ID - [id number] ID - [id number] ID - [id number] ID - [id number] ID - [id number] W/PLT COUNT & AUTO IBWNPSBYPCQJ0453-30-75 04:56:00 Test Item Value Reference Range Interpretation [...] Xpert (test code = Negative, See Xpress 67085-4) external report SARS-CoV-2/F yuliet/RSV test for linked [...] Fact Sh eet for Healthcare Prov iders: https://www.cep heid.com/ Documents/Xpert %20Xpress %51XWIJ-IhF-3-F yuliet-RSV/30 24508%20Rev.%2 0B%20HCP% 20Fact%20Sheet. pdf Fact Sheet for Healt hcare Patients: https://www.OurVinylid.AMIA Systems/ Documents/Xpert %20Xpress %48YVLK-WxN-3-F yuliet-RSV/30 2-4507%20Rev.%2 0B%20Pati ent%20Fact%20Sh eet.pdf SARS-COV-2 SLSL Performed at:[facility] PERFORMING LAB [place] (test code = Shelton Harper [address] [place] [address]-0) [place] [address] ph: [phone] [facility])2020-10-23 00:12:00 Test Item Value Reference Range Interpretation Comments SARS-COV2/RT-PCR Negative Not Detected, Performanc e of the Xpert (test code = Negative, See Xpress [id number]) external report SARS-CoV-2/F yuliet/RSV test for linked [...] sooner.Fact She et for Healthcare Prov iders: https://www.Spock/ Documents/Xpert %20Xpress %88DICT-ClZ-8-F yuliet-RSV 2-4508%20Rev.%2 0B%20HCP% 20Fact%20Sheet. pdfFact Sheet for Healt hcare Patients: https://www.ezCater.[employer]IA Systems/ Documents/Xpert %20Xpress %44TRGW-FgV-6-F yuliet-RSV30 2-4507%20Rev.%2 0B%20Pati ent%20Fact%20Sh eet.pdf SARS-COV-2 SLSL Performed at:[facility] PERFORMING LAB [place] (test code = Shelton Nichols 9524825) [place] [address] ph: [phone] CT, [id number] 22:34:00Unlisted Reason for Exam - Click Yes and Enter Reason Below->YesUnlisted Reason for Exam->known R ureteral tumor and r hydro, worsening R side pain, pt ESRD will dialyzeWill this procedure require oral contrast?->No [facility] : 1945 Sex: [...] 10/22/2020 22:34:38 CT abdomen pelvis with IV hxmfbnyl1888-57-62 22:34:00Interface, External Ris In - 10/22/2020 10:37 [...] Rodger Page MDReport Verified Date/Time: 10/22/2020 22:34:38 [facility] W/PLT COUNT & AUTO [id number] 21:18:00 Test Item Value Reference Range Interpretation [...] = 2801) CBC W/PLT COUNT & AUTO [id number] 12:53:00 Test Item Value Reference Range Interpretation [...] (BEAKER) (test code = 2801) BASIC METABOLIC ADGKA7989-26-32 12:49:00 Test Item Value Reference Range Interpretation [...] S 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 Paradichlorobenzene Tender ID - nhgu50Lqztolnh ID - cksp28Cevhnvvz ID - guyu06Dxzuodjr ID - eixe89Gqiybcfx ID - dnlc55Ydmzwypv ID - etzj98Rxrilsya ID - zekl86Gdrdcdtl ID - neld42Goevuakn ID - myhm30Tjsbnqgc ID - tkto17Jinqixwl ID - pkkh70Kdfkpige ID - eefy93Axghgiie ID - gcln60WV/wGQL5708-81-82 12:44:00 Test Item Value Reference Interpretation Comments [...] PTT (test code = 28.1 See_Comment Final 51494-8) Information (Auto Output) [Automated message] The system [...] valves. Lab Interpretation Normal (test code = 81128-4) [facility] CenterPT/EQHC3874-77-22 12:44:00 Test Item Value Reference Range Interpretation Comments PROTIME (BEAKER) (test 11.0 seconds 9.3-12.0 Final Information code = 759) (Auto Output) INR (BEAKER) (test 0.99 See_Comment Final Inf ormation code = 370) (Auto Output) [Automated mess age] The system [facility] h generated this result transmit radha reference range [...] 2.5-3.5 for patients with mechanical heart valves.CT, OTLTEER1070-77-14 08:58:00Unlisted Reason for Exam - Click Yes and Enter Reason Below->NoWill this procedure require oral contrast?->No [facility] : 1945 Sex: [...] MDReport Verified Date/Time: 09/22/2020 08:58:10 Reading Location: [facility] B1 C013X Ortho Consult Reading Room CT abdomen/pelvis without & with IV vhphqleq8249-86-62 08:58:00 Interface, External Ris In - 09/22/2020 [...] MDReport Verified Date/Time: 09/22/2020 08:58:10 ReadingLocation: [facility] B1 C013X [facility], WITHOUT [id number] 15:11:00ESRD patientUnlisted Reason for Exam - Click Yes and Enter Reason Below->NoDeos the patient have an implanted electronic device?->No [facility] 1945 Sex: MFINAL [...] Huizareport Verified Date/Time: 09/02/2020 15:11:40 Reading Location: [facility] Diagnostic Imaging Reading Room - [place] [address] MR, PELVIS, WITHOUT [id number] 15:11:00ESRD patientUnlisted Reason for Exam - Click Yes and Enter Reason Below->NoDeos the patient have an implanted electronic device?->No [facility] : 1945 Sex: MFINAL [...] Huizar Verified Date/Time: 09/02/2020 15:11:40 Reading Location: [facility] Diagnostic Imaging Reading Room - [place] [address] 1129 MR pelvis without IV bxfyibha7992-62-72 15:11:00Interface, External Ris In - 09/02/2020 3:13 [...] MDReport Verified Date/Time: 09/02/2020 15:11:40 Reading Location: [facility] Diagnostic Imaging Reading Room - [place] [address] [facility] without IV gxyapdlq9784-08-50 15:11:00Interface, External Ris In - 09/02/2020 3:13 [...] Huizar Verified Date/Time: 09/02/2020 15:11:40 Reading Location: [facility] Diagnostic Imaging Reading Room - [place] [address] [facility] HospitalTISSUE [id number] 10:13:00Surgical Pathology Report Case: [id number] Authorizing Provider: Sebas Huang, Collected: 08/31/2020 12:53 PM OrderingLocation: [address] Med/Surg Received: 08/31/2020 01:41 PM Pathologist: Ariana Victor MD Specimen: Bladder Tumor BLADDER TUMOR, TRANSURETHRAL RESECTION OF BLADDER: - 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 The specimen is entirely submitted into A1-A6. MG/ew Performed [facility], Department of Pathology, [address] [place] [address], Kcgtuu [facility], Department of Pathology, [address] [place] [address], [facility], [address] [place] [address], [place], FLUORO, NON-SPECIFIC, UP TO 1 [id number] 12:50:00 Reason for exam:->[facility] : 1945 Sex: MFluoroscopic unit utilized for a procedure performed in the OR. No interpretation was requested. Refer to the operative report for findings. Refer to PACS for patient radiation dose information.FL fluoro non-specific up to 1 [id number] 12:50:00 Interface, External Ris In - 08/31/2020 12:55 PM CSTFluoroscopic unit utilized for a procedure performed in the OR. No interpretation was requested. Refer to the operative report for findings. 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 MD Physician Procedure [...] Peak Gradient: 3.29 mmHg Estimated PASP: 42.39 mmHgPico Rivera Medical CenterComprehensive metabolic dfbdt1403-99-47 06:56:00 Test Item Value Reference Range Interpretation Comments Protein, Total (test 6.7 See_Comment [Autom ated code = 2885-2) message] The system which generated this result transmitted reference range : 6.0 - 8.5 gm/dL . The reference range was not used to interpr et this result as normal/abnormal . Albumin (test code = 3.2 g/dL 3.5-5 L 04434-1) Alkaline Phosphatase 57 U/L 30-115 (test code = 6768-6) Total Bilirubin 0.4 mg/dL 0.1-1.2 (test code = 1975-2) Sodium (test code = 138 meq/L 329-250 5098-2) Potassium (test code 3.9 meq/L 3.6-5.5 = 2823-3) Chloride (test code 99 meq/L 98-106 = 2075-0) CO2 (test code = 26 meq/L 20-29 8-9) BUN (test code = 30 mg/dL 10-26 H 3094-0) Creatinine (test 7.85 mg/dL 0.5-1.2 H code = 2160-0) Glucose (test code = 94 mg/dL 70-110 2345-7) Calcium (test code = 8.7 mg/dL 8.5-10.5 60928-6) AST (test code = 49 U/L 5-40 H 1920-8) ALT (test code = 55 U/L 5-50 H 1742-6) EGFR (test code = 7 mL/min/1[place]73 [place] [address]-4) m NOT ACCURATE CREATININE CLEARANCE IN PREDICTING GLOMERULAR FILTRATION RATE . ESTIMATED GFR I S NOT APPLICABLE FOR DIALYSIS PATIENTS. ТАТЬЯНА (test code = Paradichlorobenzene Tender ID - ТАТЬЯНА) LITOOperator ID - LITOOperator ID - LITOOperator ID - LITOOperator ID - LITOOperator ID - LITOOperator ID - LITOOperator ID - LITOOperator ID - LITOOperator ID - LITOOperator ID - LITOOperator ID - LITOOperator ID - LITOOperator ID - LITOOperator ID - LITOOperator ID - JUNITO Lab Interpretation Abnormal (test code = 94651-7) [facility] CenterCOMPREHENSIVE METABOLIC [id number] 06:56:00 Test Item Value Reference Range Interpretation [...] S 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 Paradichlorobenzene Tender ID - LITOOperator ID - LITOOperator ID - LITOOperator ID - LITOOperator ID - LITOOperator ID - LITOOperator ID - LITOOperator ID - LITOOperator ID - LITOOperator ID - LITOOperator ID - LITOOperator ID - LITOOperator ID - LITOOperator ID - LITOOperator ID - LITOOperator ID - YOJVWyecajcar6933-94-61 06:54:00 Test Item Value Reference Range Interpretation Comments Magnesium (test code = 2.1 mg/dL 1.5-3 37644-7) ТАТЬЯНА (test code = ТАТЬЯНА) Paradichlorobenzene Tender ID - LITOOperator ID - LITOOperator ID - LITOOperator ID - JUNITO Lab Interpretation (test Normal code = 40769-0) [facility] 06:54[facility]00 Test Item Value Reference Range Interpretation Comments MAGNESIUM (BEAKER) (test code = 2.1 mg/dL 1.5-3.0 627) Paradichlorobenzene Tender ID - LITOOperator ID - LITOOperator ID - LITOOperator ID - LITOCBC W/PLT COUNT & AUTO [id number] 06:31:00 Test Item Value Reference Range Interpretation [...] PERCENT (BEAKER) (test code = 2801) Lipid kaxoz4070-49-36 06:03:00 Test Item Value Reference Range Interpretation Comments Triglycerides (test 125 mg/dL code = 2571-8) Cholesterol (test code 92 mg/dL = 2093-3) HDL (test code = 27 mg/dL 2085-9) LDL Calculated (test 40 mg/dL code = 80430-9) ТАТЬЯНА (test code = ТАТЬЯНА) Triglyceride Reference Range: Low Risk <150 Borderline 150-199 High Risk 200-499 Very High Risk >=500 Cholesterol Reference Range: Low Risk <200 Borderline 200-239 High Risk >240 HDL Cholesterol Reference Range: Low Risk >=60 High Risk <40 LDL Cholesterol Reference Range: Optimal <100 Near Optimal 100-129 Borderline 130-159 High 160-189 Very High >=190 Paradichlorobenzene Tender ID - CLDA31Szanffpt ID - FWQS10Tdavdbir ID - OSGV64Maqxwvvf ID - OHUS65Dnrcaour ID - KNMK56Vonvufqz ID - ZRES04 [facility] HospitalLIPID [id number] 06:03:00 Test Item Value Reference Range Interpretation [...] Borderline 130-159 High 160-189 Very High >=190 Paradichlorobenzene Tender ID - EBSZ41Dzpswuyn ID - WDQA74Lmlsehxv ID - OIHI35Qepqjldv ID - VBIP75Unvootph ID - UTBC15Yqlhstiv ID - PMZO82FTJ W/PLT COUNT & AUTO [id number] 05:38:00 Test Item Value Reference Range Interpretation [...] H PERCENT (BEAKER) (test code = 2801) [id number] 19:47:00 Test Item Value Reference Range Interpretation Comments PSA (test code = 2857-1) 4.9 ng/mL 0-4 H ТАТЬЯНА (test code = ТАТЬЯНА) Paradichlorobenzene Tender ID - [id number] Lab Interpretation (test Abnormal code = 69462-9) [facility] CenterPSA2021-03-07 19:47:00 Test Item Value Reference Range Interpretation Comments PROSTATE SPECIFIC ANTIGEN (BEAKER) 4.9 ng/mL 0.0-4.0 H (test code = 844) Paradichlorobenzene Tender ID - CKLMTHC039Pveaoqfg0628-57-41 18:56:00 Test Item Value Reference Range Interpretation Comments Ferritin (test code = 4479.50 ng/mL 22-322 H 2276-4) ТАТЬЯНА (test code = ТАТЬЯНА) Paradichlorobenzene Tender ID - POCGXOL791Ttmuilkt ID - [id number] Lab Interpretation (test Abnormal code = 08125-1) [facility] CenterFERRITIN2021-03-07 18:56:00 Test Item Value Reference Range Interpretation Comments FERRITIN (BEAKER) (test code = 4479.50 ng/mL 22.00-322.00 H 361) Paradichlorobenzene Tender ID - PMRNYOR484Xoqejfly ID - YINNRJL994Tdcazdp M017629-71-64 18:33:00 Test Item Value Reference Range Interpretation Comments Vitamin B12 (test code = 919 pg/mL 211-911 H 2132-9) ТАТЬЯНА (test code = ТАТЬЯНА) Paradichlorobenzene Tender ID - [id number] Lab Interpretation (test Abnormal code = 78797-1) [facility] CenterVITAMIN [id number] 18:33:00 Test Item Value Reference Range Interpretation Comments VITAMIN B12 (BEAKER) (test code = 919 pg/mL 211-911 H 774) Paradichlorobenzene Tender ID - PYAEITK963M8, plvf5881-15-46 18:25:00 Test Item Value Reference Range Interpretation Comments Free T4 (test code = 0.90 ng/dL 0.9-1.8 3024-7) ТАТЬЯНА (test code = ТАТЬЯНА) Paradichlorobenzene Tender ID - [id number] Lab Interpretation (test Normal code = 71362-1) [facility] CenterT4, [id number] 18:25:00 Test Item Value Reference Range Interpretation Comments FREE T4 (BEAKER) (test code = 655) 0.90 ng/dL 0.90-1.80 Paradichlorobenzene Tender ID - [id number] 18:22:00 Test Item Value Reference Range Interpretation Comments TSH (test code = 5.480 See_Comment [Automated 04753-0) message] The system which generated this result transmit radha reference range : 0.350 - 5.500 uIU/mL. The reference range was not used to interpret this result as normal/abnormal . ТАТЬЯНА (test code = ТАТЬЯНА) Paradichlorobenzene Tender ID - [id number] Lab Interpretation Normal (test code = 08326-7) [facility] CenterTSH2021-03-07 18:22:00 Test Item Value Reference Range Interpretation Comments THYROID STIMULATING HORMONE 5.480 uIU/mL 0.350-5.500 (BEAKER) (test code = 772) Paradichlorobenzene Tender ID - VLLHMSZ955L/S, RENAL, YGLSOKVI7821-45-42 12:08:00Please include bladderReason for exam:->hematuria, history of polycystic kidney diseaseShould this be performed at the bedside?->Yes [facility] 1945 Sex: MFINAL REPORT [...] MDReport Verified Date/Time: 08/29/2020 12:08:20 Reading Location: [address] ConsultReading Room US renal cbngaabk9305-23-64 12:08:00Interface, External Ris In - 08/29/2020 12:19 [...] MDReport Verified Date/Time: 08/29/2020 12:08:20 Reading Location: [address] Consult Reading Room [facility] 2020-08-29 11:42:00 Test Item Value Reference Range Interpretation Comments HEPATITIS B SURFACE ANTIBODY < mIU/mL <8.0 (BEAKER) (test code = 647) Paradichlorobenzene Tender ID - FER MReticulocyte zwlee0871-01-40 11:03:00 Test Item Value Reference Range Interpretation Comments % Retic (test code = 79970-1) 1.8 % 0.4-2.9 Lab Interpretation (test code = Normal 38422-5) [facility] CenterRETICULOCYTE PQKQO0417-22-24 11:03:00 Test Item Value Reference Range Interpretation Comments RETICULOCYTE COUNT PCT (BEAKER) (test 1.8 % 0.4-2.9 code = 575) Troponin [id number] 05:52:00 Test Item Value Reference Range Interpretation Comments Troponin I (test code = 0.22 ng/mL 0-0.15 26034-0) ТАТЬЯНА (test code = ТАТЬЯНА) Troponin I [...] ZRES04 Lab Interpretation (test Abnormal code = 10661-9) [facility] CenterTRMADHUN [id number] 05:52:00 Test Item Value Reference Range Interpretation [...] failure, acidosis, acute neurological disease, and persistent tachyarrhythmia.Paradichlorobenzene Tender ID - [id number] METABOLIC CXPQT1620-46-09 05:32:00 Test Item Value Reference Range Interpretation [...] S 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 Paradichlorobenzene Tender ID - RBTV52Ulsnqngu ID - DRXO48Izxaegzq ID - HBUF47Zvczluly ID - SYUG86Odvbrkqg ID - LCNN64Rdmyvocl ID - MWSU23Hpxipqtv ID - JWMB25Bcoffauy ID - OSMO43Fhekcoai ID - VATG32Jnkknbsa ID - QAPP71Isptlszi ID - PJIZ57Bxtqwula ID - OHEG48Xjtsizhh ID - TVAM99VR, BRAIN, WITHOUT MBKTNXKF4284-39-91 05:08:00Unlisted Reason for Exam - Click Yes and Enter Reason Below->YesUnlisted Reason for Exam->amsCH[facility] : 1945 Sex: [...] Date/Time: 08/29/2020 05:08:18 CT brain without IV lrmticck3953-45-77 05:08:00Interface, External Ris In - 08/29/2020 5:11 [...] Yessenia Perez MDReport Verified Date/Time: 08/29/2020 05:08:18 [facility] W/PLT COUNT & AUTO LWSGGCWMCMJI4666-60-81 04:50:00 Test Item Value Reference Range Interpretation [...] (BEAKER) (test code = 2801) Occult blood, dqozv9078-74-95 03:55:00 Test Item Value Reference Range Interpretation Comments Occult blood (test code = 2335-8) Negative Negative Lab Interpretation (test code = Normal 13129-5) [facility] CenterOCCULT BLOOD, [id number] 03:55:00 Test Item Value Reference Range Interpretation Comments FECAL OCCULT BLOOD (BEAKER) (test Negative Negative code = 618) HEPATITIS B SURFACE [id number] 17:43:00 Test Item Value Reference Range Interpretation Comments HEPATITIS B SURFACE ANTIGEN (2) Nonreactive Nonreactive (BEAKER) (test code = 2585) Paradichlorobenzene Tender ID - JUSTINTROPONIN W8870-58-75 16:41:00 Test Item Value Reference Range Interpretation [...] failure, acidosis, acute neurological disease, and persistent tachyarrhythmia.Paradichlorobenzene Tender ID - HARMAN X6104-41-86 09:49:00 Test Item Value Reference Range Interpretation [...] failure, acidosis, acute neurological disease, and persistent tachyarrhythmia.Paradichlorobenzene Tender ID - [facility] METABOLIC [facility] 2020-08-28 07:01:00 Test Item Value [...] S 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 Paradichlorobenzene Tender ID - BIQT08Sjrkhzni ID - JIHY45Imphdtvr ID - ZUBE35Jgtnaejp ID - FPQI49Evixmftx ID - AHLL02Ozvqagns ID - ADEZ54Oywlquye ID - MJZJ99Fyfwjjix ID - UJOL66Juicwqwv ID - BPYB05Repvkfkj ID - NBJZ69Bhyhtyoj ID - QCUJ01Oowqwzyo ID - UJQD62Slepprty ID - LSLW03ZJI W/PLT COUNT & AUTO [id number] 06:29:00 Test Item Value Reference Range Interpretation [...] PERCENT (BEAKER) (test code = 2801) Prothrombin time/SMW7536-51-55 02:15:00 Test Item Value Reference Interpretation Comments [...] valves. Lab Interpretation Abnormal (test code = 30801-1) [facility] CenterPROTHROMBIN TIME/WYY1969-60-93 02:15:00 Test Item Value Reference Range Interpretation Comments PROTIME (BEAKER) 12.4 seconds 9.3-12.0 H Final Infor mation (test code = 759) (Auto Outp ut) INR (BEAKER) (test 1.12 See_Comment Final Inf ormation code = 370) (Auto Output) [Automated mess age] The system [facility] [employer] generated this result transmitted ref erence range: <=5.90. The reference range was not used to int erpret this result as normal/abnormal . RECOMMENDED COUMADIN/WARFARIN INR THERAPY RANGESSTANDARD DOSE: 2.0 - 3.0 Includes: PROPHYLAXIS forvenous thrombosis, systemic embolization; TREATMENT for venous thrombosis and/or pulmonary embolus.HIGH RISK: Target INR is 2.5-3.5 for patients with mechanical heart valves.COMPREHENSIVE METABOLIC [id number] 02:11:00 Test Item Value Reference Range Interpretation [...] S 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 Paradichlorobenzene Tender ID - NLVE40Ggtfatuc ID - AQSB87Ccvcuunv ID - CJDX62Ibmciial ID - RIGS37Kbjvefuo ID - HIPK94Gitnjkkk ID - HEEL82Giikvnpg ID - LZSP01Kdbhknqx ID - GMFC39Dbotdgqx ID - OYYQ54Kzkyapee ID - PIXD97AMKCP XIAHZ8317-29-30 02:10:00 Test Item Value Reference Range Interpretation [...] Borderline 130-159 High 160-189 Very High >=190 Paradichlorobenzene Tender ID - HDGS95Glbencrt ID - HVLY54Bymsjcqc ID - ZRES04 Urinalysis w/Microscopic + Reflex to Bhtkbpt4756-73-61 02:09:00 Test Item Value Reference Range Interpretation Comments Color, UA (test code = Red 5778-6) Clarity, UA (test code Turbid = 5767-9) Specific Kimberly, UA 1.020 1.001-1.035 (test code = 5811-5) pH, UA (test code = 8.5 5.0-8.0 H 5803-2) Protein, UA (test code >=300 mg/dL Negative A = 98873-1) Glucose, UA (test code 100 mg/dL Negative A = 365) Ketones, UA (test code 15 mg/dL Negative A = 2514-8) Bilirubin, UA (test Positive Negative A code = 37437-7) Blood, UA (test code = Large Negative A 95615-5) Nitrite, UA (test code Positive Negative A = 5802-4) Leukocytes, UA (test Large Negative A code = 5799-2) Urobilinogen, UA (test >=8.0 0.2-1 H code = 51290-8) Bacteria, UA (test code Moderate = 42343-2) RBC, UA (test code = >100 See_Comment [Autom ated 799-7) message] The sy stem which generated this result transmitted reference range : /HPF. The refer ence range was not u sed to interpret th is result as normal/abnormal . WBC, UA (test code = 10-20 See_Comment [Autom ated 14481-0) message] The sy stem which generated this result transmitted reference range : /HPF. The refer ence range was not u sed to interpret th is result as normal/abnormal . SQUAMOUS EPITHELIAL 5-10 See_Comment [Automa radha (test code = 30857-5) messag e] The system which generated this result transmitted reference range : /HPF. The refer ence range was not u sed to interpret th is result as normal/abnormal . Specimen Source (test code = 2795) Lab Interpretation Abnormal (test code = 14827-5) [facility] CenterURINALYSIS W/ REFLEX URINE [id number] 02:09:00 Test Item Value Reference Range Interpretation [...] SOURCE(BEAKER) (test code = 2795) Hepatic function qxxhe1505-47-39 02:07:00 Test Item Value Reference Range Interpretation Comments Protein, Total (test 6.5 See_Comment [Autom ated code = 2885-2) message] The system which generated this result transmit radha reference range : 6.0 - 8.5 gm/dL . The reference range was not u sed to interpret th is result as normal/abnormal . Albumin (test code = 3.1 g/dL 3.5-5 L 11513-5) Total Bilirubin (test 0.5 mg/dL 0.1-1.2 code = 1975-2) Bilirubin, Direct 0.3 mg/dL 0-0.4 (test code = 1968-7) Alkaline Phosphatase 56 U/L 30-115 (test code = 6768-6) AST (test code = 35 U/L 5-40 1920-8) ALT (test code = 30 U/L 5-50 1742-6) ТАТЬЯНА (test code = ТАТЬЯНА) Paradichlorobenzene Tender ID - WXTO57Rnejlglv ID - IMQE79Whcgiouk ID - KQDA66Dbgvtcoi ID - FIGM17Kewfpxpj ID - ZJDM81Trksqqxc ID - IIJJ68Viyiudjk ID - ZRES04 Lab Interpretation Abnormal (test code = 10620-6) [facility] CenterHEPATIC FUNCTION [id number] 02:07:00 Test Item Value Reference Range Interpretation [...] (test code = 30 U/L 5-50 347) Paradichlorobenzene Tender ID - [id number] ID - [id number] ID - [id number] ID - [id number] ID - [id number] ID - [id number] ID - [id number] A1c 2020-08-28 01:48:00 Test Item Value Reference Range Interpretation Comments Hemoglobin A1C (test code 4.8 % 4.3-6.1 = 4548-4) ТАТЬЯНА (test code = ТАТЬЯНА) Paradichlorobenzene Tender ID - [id number] Lab Interpretation (test Normal code = 44636-8) [facility] [id number] 01:48:00 Test Item Value Reference Range Interpretation Comments HEMOGLOBIN A1C (BEAKER) (test code = 4.8 % 4.3-6.1 368) Paradichlorobenzene Tender ID - [id number] 01:42:00 Test Item Value Reference Range Interpretation Comments MAGNESIUM (BEAKER) (test code = 2.2 mg/dL 1.5-3.0 627) Paradichlorobenzene Tender ID - [id number] ID - [id number] ID - [id number] ID - [id number] 01:39:00 Test Item Value Reference Range Interpretation Comments PHOSPHORUS (BEAKER) (test code = 5.0 mg/dL 2.5-4.5 H 604) Paradichlorobenzene Tender ID - [id number] W/PLT COUNT & AUTO [id number] 01:37:00 Test Item Value Reference Range Interpretation [...] H PERCENT (BEAKER) (test code = 2801) [id number] 00:00:00Ordered by an unspecified provider.[facility] 14:11:47Rafael Blas CRNA 07/29/2020 8:12 AMAirway Date/Time: [...] Number of Attempts at Approach: 1[facility] [id number] 13:20:20 Test Item Value Reference Range Interpretation Comments Potassium, syringe See_Comment [Automat ed message] The (test code = 2007) system [employer] generated this result tra nsmitted reference range : 3.5 - 5.0 mEq/L. The refe rence range was not used to interpret this result as normal/abnormal . [facility] qualitative [id number] 04:42:40 Test Item Value Reference Range Interpretation Comments Interpretation (test code = 1064392) COVID-19 qualitative RT-PCR Not-Detected Not-Detected result (test code = 94130-9) COVID-19 qualitative RT-PCR See link below for (test code = 7070) PDF Lab Report [facility] Pre/Post [id number] 00:59:42 Test Item Value Reference Range Interpretation Comments Ventricular rate (test code = 253) Atrial rate (test code = 255) TN interval (test code = 266) QRSD interval [...] significant change was found- [facility] [id number] 11:07:00Surgical Pathology Report Case: [id number] Authorizing Provider: Bin Acevedo, Collected: 02/12/2020 09:33 AM OrderingLocation: [facility] Received: 02/12/2020 10:58 AM PERIOPERATIVE SERVICES Pathologist: Carlos Betancourt MD Specimen: Carotid, Left, LEFT CAROTID PLAQUE ARTERY, LEFT CAROTID, ENDARTERECTOMY:CALCIFIC ATHEROSCLEROTIC PLAQUE Signing Pathologist Direct Phone Line: [phone] signed by Carlos Betancourt MD on 02/17/2020 at 11:07 [id number]; [id number] carotid stenosis Carotid, LeftA. Received fresh labeled with the patient's name, medical record number and "parotid, left" is a previously incised portion of yellow plaque measuring 1.6 cm in length and 0.8 cm in diameter. Specimen is serially sectioned to reveal calcifications measuring up to 0.2 cm in thickness. Order Processing Specialist sections are submitted in A1, following decalcification.SATISH Madrid PA (ASCP)PerformedHEPATITIS B SURFACE [id number] 14:11:00 Test Item Value Reference Range Interpretation Comments HEPATITIS B SURFACE ANTIGEN (2) Nonreactive Nonreactive (BEAKER) (test code = 2585) Specimen is considered negative for HBsAg.POCT-GLUCOSE [id number] 13:03:00 Test Item Value Reference Range Interpretation Comments POC-GLUCOSE METER 83 mg/dL 70-110 : TESTED A T [facility] 67[address] ([facility]) (test code = [facility], 1538) [address]: Paradichlorobenzene Tender/Techni justus ID = [id number] for JOIE ROE [id number] 06:30:00 Test Item Value Reference Range Interpretation Comments ACTIVATED CLOTTING TIME 235 sec : 74 -137 seconds, (BEAKER) (test code = Baseli ne: TESTED AT 441) [facility] [address] [facility], 770 30: Paradichlorobenzene Tender/Techni justus ID = [id number] for DON FARLEY BASIC METABOLIC [id number] 06:01:00 Test Item Value Reference Range Interpretation [...] S 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 Paradichlorobenzene Tender ID - PIAYA LPOCT-GLUCOSE [id number] 06:00:00 Test Item Value Reference Range Interpretation Comments POC-GLUCOSE METER 94 mg/dL 70-110 : TESTED A T [facility] 67[address] (BEAKER) (test code = [place], 1538) [address]: Paradichlorobenzene Tender/Techni justus ID = [id number] for Aren Cheatham [id number] 05:49:00 Test Item Value Reference Range Interpretation Comments MAGNESIUM (BEAKER) (test code = 1.9 mg/dL 1.6-2.6 627) Paradichlorobenzene Tender ID - JHONATANAYA [id number] 05:31:00 Test Item Value Reference Range Interpretation Comments CORTISOL, TOTAL (BEAKER) (test code 8.3 ug/dL 3.7-19.4 = 2755) Paradichlorobenzene Tender ID - EDASICBC (HEMOGRAM ONLY)2020-02-13 03:06:00 [...] (test code = 413) TSH/FREE T4 IF [id number] 02:45:00 Test Item Value Reference Range Interpretation Comments THYROID STIMULATING HORMONE 4.682 uIU/mL 0.350-4.940 (BEAKER) (test code = 772) Paradichlorobenzene Tender ID - PIAYA LPOCT-GLUCOSE [id number] 00:32:00 Test Item Value Reference Range Interpretation Comments POC-GLUCOSE METER 82 mg/dL 70-110 : [facility] (test code = [facility], 1538) [address]: Paradichlorobenzene Tender/Techni justus ID = [id number] for Aren Cheatham BLOOD GAS, [id number] 18:26:00 Test Item Value Reference Range Interpretation [...] code = 1819) 21.0 % COMPREHENSIVE METABOLIC [id number] 18:16:00 Test Item Value Reference Range Interpretation [...] S 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 Paradichlorobenzene Tender ID - [id number] 18:14:00 Test Item Value Reference Range Interpretation Comments MAGNESIUM (BEAKER) (test code = 1.8 mg/dL 1.6-2.6 627) Paradichlorobenzene Tender ID - NTPCALCIUM, [id number] 18:02:00 Test Item Value Reference Range Interpretation Comments CALCIUM IONIZED (BEAKER) (test 1.14 mmol/L 1.12-1.27 code = 698) PH, BLOOD (BEAKER) (test code = 7.32 1810) [id number] 18:01:00 Test Item Value Reference Range Interpretation [...] (BEAKER) (test code = 413) BLOOD GAS, [id number] 10:37:00 Test Item Value Reference Range Interpretation [...] 1819) 60.0 % HGB/HCT (H&H) - STAT [id number] 10:37:00 Test Item Value Reference Range Interpretation Comments HEMOGLOBIN (BEAKER) (test code = 9.2 g/dL 13.0-16.8 L 410) HEMATOCRIT (BEAKER) (test code = 27.0 % 40.0-50.0 L 411) GLUCOSE-STAT [id number] 10:36:00 Test Item Value Reference Range Interpretation Comments GLUCOSE RANDOM (BEAKER) (test code 104 mg/dL 70-110 = 652) SODIUM NA-STAT [id number] 10:36:00 Test Item Value Reference Range Interpretation Comments SODIUM (BEAKER) (test code = 381) 137 meq/L 136-145 POTASSIUM-STAT [id number] 10:36:00 Test Item Value Reference Range Interpretation Comments POTASSIUM (BEAKER) (test code = 4.0 meq/L 3.6-5.5 379) SARS-COV2/RT-PCR ([facility])2020-02-12 08:04:00 Test Item Value Reference Range Interpretation Comments SARS-COV2/RT-PCR (test code Negative Not Detected, Negative, = 2151583) See external report for linked test SARS-COV-2 PERFORMING LAB [facility] (test code = 2712572) Negative results do not preclude SARS-CoV-2 infection [...] of the Act.Fact Sheet for Healthcare Pro viders:https://www.[employer]/Documents/Xpert%20Xpress%20SARS%20CoV-2/Fact%20Sh eets/302-3802%72KLHU-HPG-9%20HEALTHCARE%20PROVIDERS%20FACT%20SHEET.pdfFact Sheet for Healthcare Patients:https://www.[employer]/Documents/Xpert%20Xpress%20SARS%20CoV-2/Fact%20Sheets/302-3801%20SARS-COV -2%20PATIENT%20FACT%20SHEET.pdfPerforming Laboratory:[facility], [place] [address]UDBQY METABOLIC [id number] 07:28:00 Test Item Value Reference Range Interpretation [...] S 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 Paradichlorobenzene Tender ID - NTPCBC W/PLT COUNT & AUTO [id number] 07:21:00 Test Item Value Reference Range Interpretation [...] code = 2801) HGB/HCT (H&H) - STAT [id number] 06:45:00 Test Item Value Reference Range Interpretation Comments HEMOGLOBIN (BEAKER) (test code = 11.3 g/dL 13.0-16.8 L 410) HEMATOCRIT (BEAKER) (test code = 33.0 % 40.0-50.0 L 411) GLUCOSE-STAT [id number] 06:42:00 Test Item Value Reference Range Interpretation Comments GLUCOSE RANDOM (BEAKER) (test code 103 mg/dL 70-110 = 652) POTASSIUM-STAT [id number] 06:42:00 Test Item Value Reference Range Interpretation Comments POTASSIUM (BEAKER) (test code = 4.8 meq/L 3.6-5.5 379) POCT-GLUCOSE [id number] 05:51:00 Test Item Value Reference Range Interpretation Comments POC-GLUCOSE METER 108 mg/dL 70-110 : TESTED A T [facility] 67[address] (BEAKER) ([facility] = 1538) [address]: Paradichlorobenzene Tender/Techni justus ID = [id number] for JORD LENO MARIE
--- NOTE | 2021-09-09 10:34 | RAD REPORT ---
EXAM DESCRIPTION: CT - Head Brain Wo Cont - 09/09/2021 9:45 am CLINICAL HISTORY: subconjunctival hemorrhage. Unknown trauma COMPARISON: Head Brain Wo Cont dated 07/31/2021 TECHNIQUE: Axial 5 mm thick images of the head were obtained without IV contrast. All CT scans are performed using dose optimization technique as appropriate and may include automated exposure control or mA/KV adjustment according to patient size. FINDINGS: No intracranial hemorrhage, mass, edema or shift of mid-line structures. No acute infarcti on of the cortical level. No cortical edema or sulcal effacement. Moderate severity atrophy and chron ic ischemic changes are noted. There is focal old infarction change in the deep periventricular white matter of the right frontal lobe. Ventricles are in proportion to the amount of volume loss. No abno rmal extra-axial fluid collections. Arterial and physiologic calcifications are present. Intracranial findings are similar to comparison. No globe or orbital content abnormality identifiable. Mastoid air cells and visualized portions of the paranasal sinuses are clear. No acute bony findings. IMPRESSION: Negative non-contrast CT head examination for acute finding. Above detailed findings are similar to the 07/31/2021 study.
[2021-09-09 10:57] LABS: Absolute Lymphocytes (CBC) 2.7 K/uL (0.7-4.9); Hematocrit 28.6 % (39.6-49.0); Lymphocytes % 24.5 % (15.3-44.8); MPV 7.8 fL (7.6-11.3); RBC Red Blood Cell Count 3.04 M/uL (4.33-5.43)
[2021-09-09 11:02] LABS: Protime INR 1.12
--- NOTE | 2021-09-09 11:07 | EDPHYS ---
Physician Documentation [facility] Name: Robbie Kelly Age: 76 yrs Sex: Male : 1945 Arrival Date: 09/09/2021 Time: 09:03 Bed 19 Private MD: Mookie Nguyen R ED Physician Korey Antonio HPI: 09/09 09:35 This 76 yrs old Male presents to ER via Wheelchair with complaints of Eye Swelling. jr8 10:00 Aggravated by nothing. Alleviated by nothing. Associated signs and symptoms: Pertinent jr8 positives: None. Severity of symptoms: At their worst the symptoms were mild in the emergency department the symptoms are unchanged. The patient has not experienced similar symptoms in the past. The patient has not recently seen a physician. This is a 76-year-old female that presented to the emergency room with complaints of swelling and bruising to the right eye. To patient's knowledge he denies any trauma to that eye. Patient stated that he woke up and that the had noticed it. Currently off blood thinners but was on Eliquis and discontinued a month ago for bleeding. Dizziness, headaches, extreme eye pain, or any other symptoms at this time.. Historical: - Allergies: 09:14 No Known Allergies; ll1 - Home Meds: 09:19 amiodarone 400 mg Oral tab 1 tab once daily [Active]; atorvastatin 40 mg Oral tab 1 tab montgomery once daily [Active]; budesonide inhalation [Active]; carvedilol 3.125 mg Oral tab 1 tab [Active]; furosemide 20 mg Oral tab 1 tab 2 times per day [Active]; hydroxyzine HCl 25 mg Oral tab 1 tab 3 times per day [Active]; levothyroxine 88 mcg cap 1 cap once daily [Active]; prednisone 10 mg Oral tab once daily [Active]; Aileen-Shari 0.8 mg Oral tab [Active]; sevelamer carbonate 800 mg Oral tab 1 tab 3 times per day [Active]; - PMHx: 09:14 COPD; POLYCYSTIC KIDNEY DISEASE; Hypothyroidism; Hypertension; Dialysis; M,W,F; Bladder ll1 CA; Anemia; RENAL FAILURE; - PSHx: 09:14 L arm dialysis access; ll1 - Immunization history:: Client reports receiving the 2nd dose of the Covid vaccine. - Social history:: Smoking status: Patient denies any tobacco usage or history of. ROS: 10:00 Constitutional: Negative for fever, chills, and weight loss, Cardiovascular: Negative jr8 for chest pain, palpitations, and edema, Respiratory: Negative for shortness of breath, cough, wheezing, and pleuritic chest pain, Neuro: Negative for headache, weakness, numbness, tingling, and seizure. 10:00 Eyes: Positive for swelling. 10:00 All other systems are negative. Exam: 10:00 Visual Acuity: Visual acuity is within normal limits. jr8 10:00 Constitutional: This is a well developed, well nourished patient who is awake, alert, and in no acute distress. Head/Face: Normocephalic, atraumatic. ENT: Nares patent. No nasal discharge, no septal abnormalities noted. Tympanic membranes are normal and external auditory canals are clear. Oropharynx with no redness, swelling, or masses, exudates, or evidence of obstruction, uvula midline. Mucous membranes moist. Cardiovascular: Regular rate and rhythm with a normal S1 and S2. No gallops, murmurs, or rubs. Normal PMI, no JVD. No pulse deficits. Respiratory: Lungs have equal breath sounds bilaterally, clear to auscultation and percussion. No rales, rhonchi or wheezes noted. No increased work of breathing, no retractions or nasal flaring. Abdomen/GI: Soft, non-tender, with normal bowel sounds. No distension or tympany. No guarding or rebound. No evidence of tenderness throughout. Skin: Warm, dry with normal turgor. Normal color with no rashes, no lesions, and no evidence of cellulitis. MS/ Extremity: Pulses equal, no cyanosis. Neurovascular intact. Full, normal range of motion. Neuro: Awake and alert, GCS 15, oriented to person, place, time, and situation. Cranial nerves II-XII grossly intact. Motor strength 5/5 in all extremities. Sensory grossly intact. Cerebellar exam normal. Normal gait. 10:00 Eyes: Periorbital structures: ecchymosis, that is mild, on the right upper eyelid and right lower eyelid, Pupils: equal, round, and reactive to light and accomodation, Extraocular movements: intact throughout, Conjunctiva: subconjunctival hemorrhage(s), seen in the right eye, Corneas: are normal, Anterior chamber: no acute changes, Lids and lashes: appear normal, Examination of the other eye reveals no obvious gross abnormality. Vital Signs: 09:15 BP 116 / 49; Pulse 87; Resp 18; Temp 97.9(O); Pulse Ox 94% on R/A; Weight 75.3 kg; ll1 Height 5 ft. 10 in. (177.80 cm); Pain 0/10; 10:32 BP 128 / 56; Pulse 88; Resp 18; Pulse Ox 98% on R/A; montgomery 09:15 Body Mass Index 23.82 (75.30 kg, 177.80 cm) ll1 MDM: 09:29 Patient medically screened. jr8 11:05 Data reviewed: vital signs, nurses notes, lab test result(s), radiologic studies, CT jr8 scan. Data interpreted: Pulse oximetry: on room air is 98 %. Interpretation: normal. Counseling: I had a detailed discussion with the patient and/or guardian regarding: the historical points, exam findings, and any diagnostic results supporting the discharge/admit diagnosis, lab results, radiology results, the need for outpatient follow up, an opthalmologist, to return to the emergency department if symptoms worsen or persist or if there are any questions or concerns that arise at home. ED course: Discussed with patient that there is no new intracranial process based on imaging today. No coagulopathy as well. Most likely just a spontaneous subconjunctival hemorrhage. Needs to follow-up with ophthalmology and if he gets worsening point time to come back for further evaluation. Patient good with this at this time.. 09/09 09:30 Order name: CBC with Diff; Complete Time: 11: jr8 09/09 09:30 Order name: Protime (+inr); Complete Time: 11: jr8 09/09 09:30 Order name: Ptt, Activated; Complete Time: 11: jr8 09/09 09:30 Order name: CT Head Brain wo Cont; Complete Time: 10:36 jr8 Administered Medications: No medications were administered Disposition Summary: 09/09/21 11:06 Discharge Ordered Location: Home jr8 Problem: new jr8 Symptoms: have improved jr8 Condition: Stable jr8 Diagnosis - Subconjunctival Hemorrhage Right Eye jr8 Followup: jr8 - With: Renuka Bedoya MD - When: 2 - 3 days - Reason: Recheck today's complaints, Continuance of care, Re-evaluation by your physician Discharge Instructions: - Discharge Summary Sheet jr8 - Subconjunctival Hemorrhage jr8 Forms: - Medication Reconciliation Form jr8 - Thank You Letter jr8 - Antibiotic Education jr8 - Prescription Opioid Use jr8 Signatures: Dispatcher [employer] EDMS Tomy Eddy PA PA jr8 Byron Galindo RN RN ll1 Carol Redd RN RN montgomery
--- NOTE | 2021-09-09 11:07 | ER ---
Nurse's Notes [facility] Name: Robbie Kelly Age: 76 yrs Sex: Male : 1945 Arrival Date: 09/09/2021 Time: 09:03 Bed 19 Private MD: Mookie Nguyen R Diagnosis: Subconjunctival Hemorrhage Right Eye Presentation: 09/09 09:15 Chief complaint: Patient states: Awoke yesterday with R eye irritation, redness, pain. ll1 No known trauma, takes aspirin daily. No fever. Coronavirus screen: Vaccine status: Patient reports receiving the 2nd dose of the covid vaccine. Client denies travel out of the [place] in the last 14 days. At this time, the client does not indicate any symptoms associated with coronavirus-19. Ebola Screen: Patient denies travel to an Ebola-affected area in the 21 days before illness onset. Initial Sepsis Screen: Does the patient meet any 2 criteria? No. Patient's initial sepsis screen is negative. Does the patient have a suspected source of infection? Yes: Other: eye redness/swelling. Risk Assessment: Do you want to hurt yourself or someone else? Patient reports no desire to harm self or others. Onset of symptoms was September 08, 2021. 09:15 Method Of Arrival: Wheelchair ll1 09:15 Acuity: DADA 3 ll1 Triage Assessment: 09:17 General: Appears in no apparent distress. Behavior is calm, cooperative, appropriate ll1 for age. Pain: Denies pain. EENT: Reports R eye redness, swelling, irritation. Neuro: No deficits noted. Cardiovascular: No deficits noted. Respiratory: No deficits noted. Historical: - Allergies: 09:14 No Known Allergies; ll1 - Home Meds: 09:19 amiodarone 400 mg Oral tab 1 tab once daily [Active]; atorvastatin 40 mg Oral tab 1 tab montgomery once daily [Active]; budesonide inhalation [Active]; carvedilol 3.125 mg Oral tab 1 tab [Active]; furosemide 20 mg Oral tab 1 tab 2 times per day [Active]; hydroxyzine HCl 25 mg Oral tab 1 tab 3 times per day [Active]; levothyroxine 88 mcg cap 1 cap once daily [Active]; prednisone 10 mg Oral tab once daily [Active]; Aileen-Shari 0.8 mg Oral tab [Active]; sevelamer carbonate 800 mg Oral tab 1 tab 3 times per day [Active]; - PMHx: 09:14 COPD; POLYCYSTIC KIDNEY DISEASE; Hypothyroidism; Hypertension; Dialysis; M,W,F; Bladder ll1 CA; Anemia; RENAL FAILURE; - PSHx: 09:14 L arm dialysis access; ll1 - Immunization history:: Client reports receiving the 2nd dose of the Covid vaccine. - Social history:: Smoking status: Patient denies any tobacco usage or history of. Screenin:18 Abuse screen: Denies threats or abuse. Denies injuries from another. Nutritional montgomery screening: No deficits noted. Tuberculosis screening: No symptoms or risk factors identified. Fall Risk None identified. Assessment: 09:18 General: Appears in no apparent distress. Behavior is calm, cooperative. Pain: Denies montgomery pain. EENT: Eyes Sclera/Cornea are reddened in right upper eyelid, right outer canthus, outer aspect of conjuctiva of right eye, inner aspect of conjuctiva of right eye, right inner canthus and right lower eyelid. Vital Signs: 09:15 BP 116 / 49; Pulse 87; Resp 18; Temp 97.9(O); Pulse Ox 94% on R/A; Weight 75.3 kg; ll1 Height 5 ft. 10 in. (177.80 cm); Pain 0/10; 10:32 BP 128 / 56; Pulse 88; Resp 18; Pulse Ox 98% on R/A; montgomery 09:15 Body Mass Index 23.82 (75.30 kg, 177.80 cm) ll1 ED Course: 09:03 Patient arrived in ED. as 09:03 Mookie Nguyen MD is Private Physician. as 09:08 Arm band placed on Patient placed in an exam room, on a stretcher. ll1 09:11 Tomy Eddy PA is PHCP. jr8 09:11 Korey Antonio MD is Attending Physician. jr8 09:16 Triage completed. ll1 09:18 Patient has correct armband on for positive identification. Bed in low position. montgomery 09:18 No provider procedures requiring assistance completed. montgomery 09:45 CT Head Brain wo Cont In Process Unspecified. EDMS 10:51 Protime (+inr) Sent. montgomery 10:51 Ptt, Activated Sent. montgomery 10:51 CBC with Diff Sent. montgomery 11:06 Renuka Bedoya MD is Referral Physician. jr8 11:17 Inserted saline lock: 20 gauge in right antecubital area, using aseptic technique. IV montgomery discontinued, intact, Pressure dressing applied. Administered Medications: No medications were administered Outcome: 11:06 Discharge ordered by . jr8 11:17 Discharged to home montgomery 11:17 Condition: good 11:17 Discharge instructions given to patient. 11:17 Patient left the ED. montgomery Signatures: Dispatcher [employer] EDMS Melody Gongora Josh, PA PA jr8 Byron Galindo, RN RN ll1 Carol Redd RN RN
[2021-09-09 11:23] VITALS: TEMP 97.9
[2021-09-09 11:25] VITALS: BP 128/56; O2SAT 98
== END 2021-09-09 11:17 | disposition home or self-care (01) ==
LOC: ER 09:00
DX: H11.31 Conjunctival hemorrhage, right eye (principal); I12.0 Hypertensive chronic kidney disease with stage 5 chronic kidney disease or end stage renal disease; N18.6 End stage renal disease; Z99.2 Dependence on renal dialysis; J44.9 Chronic obstructive pulmonary disease, unspecified; Z85.51 Personal history of malignant neoplasm of bladder
CPT/HCPCS: 36415; 70450; 85025; 85610; 85730; 99283

== ENCOUNTER 2021-09-21 07:08 | Inpatient (IN) | payer OTHER ==
--- OUTSIDE RECORDS SUMMARY | 2021-09-21 07:13 | XMS REPORT | Continuity of Care Document ---
:1945 Author Organization [facility] t Address [address] [place] [address] Care Team Providers Name Role Phone Asked, Pcp Primary Care Physician Unavailable Vishal Keen MD Attending Clinician Waqar Villatoro MD Attending Clinician Mattie Garcia NP Attending Clinician Adenike Ocampo NP Attending Clinician LEONILA Admitting Clinician Unavailable Payers Payer Name Policy Type Policy Effective Date Expiration Date Sour ce Number MEDICAREMEDICARE PART [id number] 2010 [facility] A AND 00:00:00 Hospital [id number] 2009 [place] AND [id number] 2020 Methodis t CASUALTYBANKERS LIFE 00:00:00 Hosp ital AND [id number][facility] Problems This patient has no known problems. Allergies, Adverse Reactions, Alerts This patient has no known allergies or adverse reactions. Social History Social Habit Start Date Stop Date Quantity Comments Source History of tobacco Smoker Method ist use Hospital Tobacco use and 2020-07-30 2020-07-30 Never used [facility] exposure 00:00:00 00:00:00 Hospital Alcohol intake 2020-07-30 2020-07-30 Lifetime [facility]ec[employer]al 00:00:00 00:00:00 non-drinker Hospital (finding) History SDOH 2020-07-29 2020-07-29 1 [facility] Alcohol Frequency 00:00:00 00:00:00 Hospita l History SDOH 2020-07-29 2020-07-29 99 [facility] Alcohol Std Drinks 00:00:00 00:00:00 Hospit al History [facility] 2020-07-29 2020-07-29 1 [facility] Alcohol Binge 00:00:00 00:00:00 Hospital Sex Ass[birth year] At [birth year] [facility] 00:00:00 00:00:00 Hospital Smoking Status Start Date Stop Date Source Former smoker 2020-07-30 00:00:00 2020-07-30 00:00:00 [facility] Medications Ordered Filled Start Stop Current Ordering Indication Dosage Frequency Signature Comments Components Source Medication Medication Date Date Medication? Clinician (SIG) Name Name atorheathtadougie Yes 40mg QD Take 40 mg [facility] [...] QD Take 75 mg [facility] (PLAVIX) 75 2-04 02-[address] mg tablet 15:18: 00:00 daily. Hospi ta 02 :00 l metoprolol 25mg Take 25 mg [facility] tartrate 07-[address] (LOPRESSOR) 12:06: 00:00 as needed. Hospita 25 mg 31 :00 TAKES ONLY l tablet WHEN BLOOD PRESSURE IS ELEVATED clopidogreL 75mg QD Take 1 Met hodi (PLAVIX) 75 07-29 tablet (75 s t mg tablet 00:00: [...] while taking narcotic based pain meds. traMADoL [id number] 50mg Q6H Take 1 Metho di (Ultram) 50 07-29 tablet (50 s t mg tablet 00:00: 05:59 mg total) Ho spita 00 :00 by mouth l every 6 (six) hours as needed for moderate pain for up to 7 days .acute pain. Vital Signs Vital Name Observation Time Observation Value Comments Source Systolic blood 2020-07-29 16:16:00 136 mm[Hg] Method ist Hospital pressure Diastolic blood 2020-07-29 16:16:00 65 mm[Hg] [facility] Hospital pressure Heart rate 2020-07-29 16:16:00 90 /min [facility] Body temperature 2020-07-29 16:16:00 37.17 Jailyn [facility] Oxygen saturation in 2020-07-29 16:16:00 95 /min [facility] Arterial blood by Pulse oximetry Respiratory rate 2020-07-29 16:15:00 12 /min [facility] Body height 2020-07-29 11:29:00 177.8 cm [facility] Body weight 2020-07-29 11:29:00 82.3 kg [facility] BMI 2020-07-29 11:29:00 26.03 kg/m2 [facility] Procedures Procedure Date / Time Performed Performing Clinician Zach e PA AN ELECTIVE 2020-07-29 14:11:47 Rafael Blas spital ENDOTRACHEAL AIRWAY THROMBECTOMY, GRAFT, AV 2020-07-29 13:39:00 Jose Keen [facility] POTASSIUM, SYRINGE 2020-07-29 13:00:00 Jose Keen [facility] POTASSIUM, SYRINGE 2020-07-29 12:11:00 Jose Keen [facility] HEMOGLOBIN, SYRINGE 2020-07-29 12:11:00 Jose Keen [facility] GLUCOSE LEVEL, SYRINGE 2020-07-29 12:11:00 Jose Keen [facility] ECG PRE/POST OP 2020-07-27 21:26:54 [facility] HEMOGLOBIN A1C 2020-07-27 21:19:00 [facility] HEMOGLOBIN 2020-07-27 21:19:00 Leonila Jose [facility] POTASSIUM LEVEL 2020-07-27 21:19:00 Leonila [facility] GLUCOSE LEVEL 2020-07-27 21:19:00 Leonila [facility] COVID-19 QUALITATIVE 2020-07-27 20:57:00 Jose Keen [facility] RT-PCR Plan of Care Planned Activity Planned Date Details Comments Source Future Scheduled Test Hepatitis C screening [facility] (procedure) [code = 151649865] Future Scheduled Test COLONOSCOPY SCREENING [facility] [code = COLONOSCOPY SCREENING] Future Scheduled Test SHINGLES VACCINES (#1) [facility] [code = SHINGLES VACCINES (#1)] Future Scheduled Test COVID-19 VACCINE (2 - [facility] Pfizer 2-dose series) [code = COVID-19 VACCINE (2 Pfizer 2-dose series)] Future Scheduled Test INFLUENZA VACCINE [code [facility] = INFLUENZA VACCINE] Encounters Start End Encounter Admission Attending Care Care Encounter Source Date/Time Date/Time Type Type Clinicians Facility Department ID 2020-08-26 2020-08-26 Office Robyn Keen.2.840.5 [id number] Methodi 14:27:45 16:08:33 Visit Jose Rodgers [address]52.1.[address] 3.430.2.7 Hospit a .3.354674 l .8 2020-08-26 2020-08-26 Travel 1.2.840.1 1.2.962.274 [id number] Methodi 00:00:00 00:00:[address] 3.430.2.7 0.2.7.3.698 Ho spita .3.990162 084.8 l .8 2020-08-02 2020-08-02 Travel 1.2.840.1 1.2.742.144 [id number] Methodi 00:00:00 00:00:[address] 3.430.2.7 0.2.7.3.698 Ho spita .3.536680 084.8 l .8 2020-07-30 2020-07-30 [facility] 1.2.840.3 [id number] Methodi 00:00:00 00:00:[address] 3.430.2.7 Hospit a .3.706475 l .8 2020-07-29 2020-07-29 [facility] 1.2.840.1 [id number] Methodi 05:10:00 11:27:00 Encounter Jose Rodgers 18417.1.[address] 3.430.2.7 Hospit a .3.249465 l .8 2020-07-29 2020-07-29 [facility] 1.2.840.1 [id number] Methodi 07:30:00 09:25:[address] 3.430.2.7 Hospit a .3.571704 l .8 2020-07-29 2020-07-29 Anesthesia Saud Villatoro 1.2.840.1 [id number] Methodi 07:40:00 09:17:00 Event Rose Garcia 27498.1.[address] 3.430.2.7 Hospit a .3.553050 l .8 2020-07-29 2020-07-29 Travel 1.2.840.1 1.2.013.706 [id number] Methodi 00:00:00 00:00:[address] 3.430.2.7 0.2.7.3.698 Ho spita .3.603648 084.8 l .8 2020-07-29 2020-07-29 Concha Ocampo, 1.2.840.1 [id number] Methodi 00:00:00 00:00:00 Only Derrick Jeong 15927.1.[address] 3.430.2.7 Hospit a .3.890332 l .8 2020-07-27 2020-07-27 Pre-Admiss Leonila, 1.2.840.1 [id number] Methodi 14:35:19 15:35:19 ion Jose Rodgers 78138.1.[address] Testing 3.430.2.7 Hospit a .3.400478 l .8 2020-07-27 2020-07-27 Travel 1.2.840.1 1.2.447.995 [id number] Methodi 00:00:00 00:00:[address] 3.430.2.7 0.2.7.3.698 Ho spita .3.519540 084.8 l .8 2020-07-23 2020-07-23 Telephone Leonila, 1.2.840.6 [id number] Methodi 00:00:00 00:00:[address] 3.430.2.7 Hospit a .3.015386 l .8 2020-07-23 2020-07-23 Travel 1.2.840.1 1.2.899.171 [id number] Methodi 00:00:00 00:00:[address] 3.430.2.7 0.2.7.3.698 Ho spita .3.219305 084.8 l .8 2020-07-22 2020-07-22 Office Leonila 1Jey2.840.2 [id number] Methodi 14:38:20 15:37:56 Visit Jose Rodgers 22756.1.[address] 3.430.2.7 Hospit a .3.954383 l .8 2020-07-21 2020-07-21 Travel 1.2.840.1 1.2.151.595 [id number] Methodi 00:00:00 00:00:[address] 3.430.2.7 0.2.7.3.698 Ho spita .3.914969 084.8 l .8 Results Test Description Test Time Test Comments Results Result [facility] e Comments Airway Rafael Blas CRNA Metho dist 4 07/29/2020 8:12 Hospital 14:11:47 AMAirway Date/Time: 07/29/2020 7:40 AM Location: OR [...] Attempts at Approach: 1 Potassium, syringe 2020-07-29 13:20:20 Test Item Value Reference Range Interpretation Comme nts Potassium, syringe (test code = See_Comment [Automated message] The system which 2007) generated this result transmitted reference range : 3.5 - 5.0 mEq/L. The reference range was not used to interpret this result as normal/abnormal . [facility] qualitative [id number] 04:42:40 Test Item Value Reference Range Interpretation Comments Interpretation (test code = 4379989) COVID-19 qualitative RT-PCR Not-Detected Not-Detected result (test code = 89944-5) COVID-19 qualitative RT-PCR See link below for (test code = 7070) PDF Lab Report [facility] Pre/Post [id number] 00:59:42 Test Item Value Reference Range Interpretation Comments Ventricular rate (test code = 253) Atrial rate (test code = 255) PA interval (test code = 266) QRSD interval [...] of 08-JUL-2014 11:47,-No significant change was found- [facility]
[2021-09-21] MEDS ORDERED: MORPHINE 4 MG/ML SYR ONE (07:28)
[2021-09-21 07:48] LABS: Absolute Lymphocytes (CBC) 1.9 K/uL (0.7-4.9); Hematocrit 28.2 % (39.6-49.0); Lymphocytes % 13.6 % (15.3-44.8); MPV 7.4 fL (7.6-11.3); RBC Red Blood Cell Count 3.09 M/uL (4.33-5.43)
[2021-09-21 08:08] LABS: Albumin 2.6 g/dL (3.4-5.0); Bilirubin Total 0.6 mg/dL (0.2-1.0); Potassium 4.3 mmol/L (3.5-5.1); Protein, Total 6.9 g/dL (6.4-8.2)
--- NOTE | 2021-09-21 08:40 | RAD REPORT ---
EXAM DESCRIPTION: CTAbdomen Pelvis Wo Contrast - 09/21/2021 8:25 am CLINICAL HISTORY: ABD PAIN COMPARISON: Abdomen Pelvis Wo Contrast dated 07/10/2021; Abdomen Pelvis W Contrast dated ; Abdomen Pelvis Wo Contrast dated 02/19/2021; Abdomen Pelvis Wo Contrast dated 08/27/2020 TECHNIQUE: CT of the abdomen and pelvis was performed. All CT scans are performed using dose optimization technique as appropriate and may include automated exposure control or mA/KV adjustment according to patient size. FINDINGS: Lower chest: Small pleural effusions bilaterally. Cardiomegaly. Coronary artery calcificat ions. 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 This measures up to 5.9 cm. Liver: Low-density liver lesions are identified and unchanged. Biliary: Cholecystectomy. Similar extrahepatic biliary ductal dilatation. Stomach: No significant focal abnormality. Duodenum: No significant focal abnormality. Pancreas: No significant abnormality. Spleen: No significant abnormality. Adrenal: No suspicious lesions. Kidney/ureter: Severe right-sided hydronephrosis. Innumerable bilateral renal lesions of varying comp lexity consistent with polycystic kidney disease. New intermediate attenuation masslike structure med ially along the upper pole the right kidney measuring approximately 3.3 cm. Possible lesion in the le ft upper pole collecting system. Possible solid mass medially along the right lower pole kidney. Smal l volume of subcapsular fluid along the left kidney. No left-sided hydronephrosis. Retroperitoneum: Prominent retroperitoneal lymph nodes. Vascular: The aortic stent graft repair. Bowel: No significant focal abnormality. Diverticulosis. No evidence of acute diverticulitis. Peritoneum: No ascites or free air. Bladder: Decompressed bladder but clear bladder mass identified. Reproductive: No adnexal masses. Bones: No acute fracture. Other: n/a IMPRESSION: 1. Severe right-sided hydroureteronephrosis likely secondary to a suspected bladder mass . Findings remain concerning for bladder neoplasm as well as multiple renal and/or collecting system neoplasms. 2. 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 No evidence of rupture. Suggest vascul ar surgery referral. 3. Other incidental findings as noted above.
[2021-09-21 09:14] LABS: Urine Blood 3+ (Negative); Urine Glucose Negative (Negative); Urine Protein 3+ (Negative); Urine pH 7.5 (5.0-7.0)
[2021-09-21 09:19] LABS: Protime INR 1.42
[2021-09-21 09:31] LABS: Urine Bacteria >50 /HPF (NONE SEEN); Urine RBC >50 /HPF (NONE SEEN)
--- NOTE | 2021-09-21 10:28 | EDPHYS ---
Physician Documentation [facility] Name: Robbie Kelly Age: 76 yrs Sex: Male : 1945 Arrival Date: 09/21/2021 Time: 07:10 Bed 5 Private MD: ED Physician Leonel Membreno HPI: 09/21 07:54 This 76 yrs old Male presents to ER via Wheelchair with complaints of Possible Kidney ms3 Stone. 07:54 The patient complains of pain in the right flank. The pain does not radiate. Onset: The ms3 symptoms/episode began/occurred yesterday. Modifying factors: The symptoms are alleviated by nothing. the symptoms are aggravated by nothing. Associated signs and symptoms: The patient has no apparent associated signs or symptoms. Severity of pain: At its worst the pain was severe in the emergency department the pain is unchanged. 76-year-old male with past medical history of bladder cancer, hypertension, hypothyroid, stage renal disease, COPD, anemia due to chronic kidney disease presents with his for right-sided flank pain. Patient states his pain is similar to when he has had stones in the past. Patient rates his pain a 9/10, describes the pain as aching, stabbing, throbbing. Patient denies nausea, diarrhea, fevers, chills. Patient endorses vomiting.. Historical: - Allergies: 07:29 No Known Allergies; jd3 - Home Meds: 07:29 amiodarone 400 mg Oral tab 1 tab once daily [Active]; budesonide inhalation [Active]; jd3 hydroxyzine HCl 25 mg Oral tab 1 tab 3 times per day [Active]; atorvastatin 40 mg Oral tab 1 tab once daily [Active]; carvedilol 3.125 mg Oral tab 1 tab [Active]; furosemide 20 mg Oral tab 1 tab 2 times per day [Active]; prednisone 10 mg Oral tab once daily [Active]; levothyroxine 88 mcg cap 1 cap once daily [Active]; Aileen-Shari 0.8 mg Oral tab [Active]; sevelamer carbonate 800 mg Oral tab 1 tab 3 times per day [Active]; - PMHx: 07:29 Bladder CA; Hypertension; Hypothyroidism; Dialysis; M,W,F; COPD; Anemia; POLYCYSTIC jd3 KIDNEY DISEASE; RENAL FAILURE; - PSHx: 07:29 L arm dialysis access; jd3 - Immunization history:: Adult Immunizations up to date, Client reports receiving the 2nd dose of the Covid vaccine, . - Social history:: Smoking status: Patient/guardian denies using tobacco, but has a distant history of tobacco abuse. ROS: 07:54 Constitutional: Negative for fever, and chills. Eyes: Negative for injury, pain, ms3 redness, and discharge, Neck: Negative for injury, pain, and swelling, Cardiovascular: Negative for chest pain, and palpitations. Respiratory: Negative for shortness of breath, cough, wheezing, and pleuritic chest pain, Abdomen/GI: Negative for abdominal pain, nausea, vomiting, diarrhea, and constipation, MS/Extremity: Negative for injury and deformity, Skin: Negative for injury, rash, and discoloration, Neuro: Negative for headache, weakness, numbness, tingling. 07:54 Back: Positive for flank pain, on the right. ms3 Exam: 07:54 Constitutional: This is a well developed, well nourished patient who is awake, alert, ms3 and in no acute distress. Neck: Trachea midline, no cervical lymphadenopathy. Supple, full range of motion without nuchal rigidity, or vertebral point tenderness. No Meningismus. Chest/axilla: Normal chest wall appearance and motion. Nontender with no deformity. Cardiovascular: Regular rate and rhythm with a normal S1 and S2. No gallops, murmurs, or rubs. Normal PMI, no JVD. No pulse deficits. Respiratory: Lungs have equal breath sounds bilaterally, clear to auscultation and percussion. No rales, rhonchi or wheezes noted. No increased work of breathing, no retractions or nasal flaring. Abdomen/GI: Soft, non-tender, with normal bowel sounds. No distension or tympany. No guarding or rebound. No evidence of tenderness throughout. Back: No spinal tenderness. No costovertebral tenderness. Full range of motion. Skin: Warm, dry with normal turgor. Normal color with no rashes, no lesions, and no evidence of cellulitis. Psych: Awake, alert, with orientation to person, place and time. Behavior, mood, and affect are within normal limits. 09:26 ECG was reviewed by the Attending Physician. ms3 Vital Signs: 07:26 Pulse Ox 80% on R/A; jd3 07:28 BP 111 / 70; Pulse 92; Resp 20 S; Temp 98.6(TE); Pulse Ox 99% on R/A; Pain 10/10; jd3 07:30 BP 111 / 70; Pulse 100; Resp 24; Temp 98.6; Pulse Ox 80% on R/A; Weight 73.48 kg; ll1 Height 5 ft. 10 in. (177.80 cm); Pain 9/10; 08:31 BP 131 / 59; Pulse 90; Resp 17 S; Pulse Ox 98% on 2 lpm NC; Pain 6/10; jd3 09:32 BP 136 / 70; Pulse 87; Resp 17 S; Pulse Ox 100% on 2 lpm NC; jd3 10:41 BP 122 / 75; Pulse 85; Resp 17 S; Pulse Ox 99% on 2 lpm NC; jd3 11:32 BP 118 / 51; Pulse 85; Resp 17 S; Pulse Ox 100% on 2 lpm NC; jd3 07:30 Body Mass Index 23.24 (73.48 kg, 177.80 cm) ll1 MDM: 07:21 Patient medically screened. ms3 07:54 Differential diagnosis: nephrolithiasis, pyelonephritis, UTI, diverticulitis. ms3 10:24 Data reviewed: vital signs, nurses notes, lab test result(s), radiologic studies, CT ms3 scan. 10:27 Data interpreted: engine monitor: rate is 85 beats/min, rhythm is normal sinus rhythm, ms3 Interpretation: normal rate, normal rhythm. Counseling: I had a detailed discussion with the patient and/or guardian regarding: the historical points, exam findings, and any diagnostic results supporting the discharge/admit diagnosis, lab results, radiology results, the need for further work-up and treatment in the hospital. ED course: Discussed case with Dr Huang, patient's urologist in [place]. 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 No need for drainage at this time. Patient has large cysts on his kidney. Patient can be treated for UTI. Discussed case with Dr Rendon and he accepts patient as admission. Patient meets sepsis criteria without severe sepsis.. 09/21 07:22 Order name: CBC with Diff; Complete Time: 13:25 ms3 09/21 07:22 Order name: CMP; Complete Time: 08:45 ms3 09/21 07:22 Order name: Urine Microscopic Only; Complete Time: 10:14 ms3 09/21 08:47 Order name: Blood Culture Adult (2) ms3 09/21 08:47 Order name: Lactate; Complete Time: 13:25 ms3 09/21 08:47 Order name: Protime (+inr); Complete Time: 10:14 ms3 09/21 08:47 Order name: Ptt, Activated; Complete Time: 10:14 ms3 09/21 09:14 Order name: Urine Dipstick-Ancillary; Complete Time: 10:14 EDMS 09/21 09:34 Order name: Urine Culture EDMS 09/21 10:21 Order name: COVID-19 SARS RT PCR (Document "Date of Onset" if Symptomatic); Complete bd Time: 13:25 09/21 10:47 Order name: CBC Smear Scan; Complete Time: 13:25 EDMS 09/21 10:50 Order name: Basic Metabolic Panel EDMS 09/21 10:50 Order name: Basic Metabolic Panel EDMS 09/21 07:22 Order name: CT Abd/Pelvis - Without Contrast; Complete Time: 08:45 ms3 09/21 07:22 Order name: IV Saline Lock; Complete Time: 07:39 ms3 09/21 07:22 Order name: Labs collected and sent; Complete Time: 07:39 ms3 09/21 07:22 Order name: Urine Dipstick-Ancillary (obtain specimen); Complete Time: 09:33 ms3 09/21 08:47 Order name: Accucheck; Complete Time: 08:56 ms3 09/21 08:47 Order name: Cardiac monitoring; Complete Time: 08:56 ms3 09/21 08:47 Order name: EKG - Nurse/Tech; Complete Time: 09:33 ms3 09/21 08:47 Order name: IV Saline Lock - Large Bore; Complete Time: 09:33 ms3 09/21 08:47 Order name: O2 Per Protocol; Complete Time: 08:56 ms3 09/21 08:47 Order name: O2 Sat Monitoring; Complete Time: 09:13 ms3 09/21 10:50 Order name: Renal EDMS 09/21 10:51 Order name: CBC with Automated Diff EDMS 09/21 10:51 Order name: CBC with Automated Diff EDMS EC:26 Rate is 85 beats/min. Rhythm is regular. IN interval is normal. Clinical impression: ms3 NSR w/ Non-specific ST/T Changes. Interpreted by me. Administered Medications: 07:39 Drug: morphine 4 mg Route: IVP; Site: right antecubital; jd3 08:30 Follow up: Response: No adverse reaction; RASS: Alert and Calm (0) jd3 10:37 Drug: Rocephin (cefTRIAXone) 1 grams Route: IV; Rate: calculated rate; Site: right jd3 antecubital; 11:30 Follow up: Response: No adverse reaction; IV Status: Completed infusion jd3 Disposition Summary: 09/21/21 10:27 Hospitalization Ordered Hospitalization Status: Inpatient Admission ms3 Provider: Esdras Rendon ms3 Condition: Stable ms3 Problem: new ms3 Symptoms: are unchanged ms3 Bed/Room Type: Standard ms3 Location: Telemetry/MedSurg (Inpatient)(09/21/21 13:35) ja Room Assignment: 223(09/21/21 13:35) [facility] Diagnosis - Right flank pain ms3 - Other hydronephrosis ms3 - Bladder tumor ms3 - Urinary tract infection ms3 - Other specified sepsis ms3 Forms: - Medication Reconciliation Form ms3 - SBAR form ms3 Signatures: Dispatcher [employer] EDCT Tamra Weldon RN RN ss Davies, Jonathon, RN RN jd3 James Rdz RN RN ja1 Byron Galindo RN RN ll1 Leonel Membreno DO DO ms3 Corrections: (The following items were deleted from the chart) 07:24 07:23 LIPASE+C.LAB.BRZ ordered. EDCT EDMS 07:57 07:54 Constitutional: Negative for fever, and chills. Eyes: Negative for injury, pain, ms3 redness, and discharge, Neck: Negative for injury, pain, and swelling, Cardiovascular: Negative for chest pain, and palpitations. Respiratory: Negative for shortness of breath, cough, wheezing, and pleuritic chest pain, Abdomen/GI: Negative for abdominal pain, nausea, vomiting, diarrhea, and constipation, Back: Negative for injury and pain, MS/Extremity: Negative for injury and deformity, Skin: Negative for injury, rash, and discoloration, Neuro: Negative for headache, weakness, numbness, tingling. ms3 12:29 10:27 Telemetry/MedSurg (Inpatient) ms3 ss 12: 10: ms3 ss 13:35 12:29 [facility]1 [facility]35 [facility]
--- NOTE | 2021-09-21 10:28 | ER ---
Nurse[facility] Notes [facility] Name: Robbie Kelly Age: 76 yrs Sex: Male : 1945 Arrival Date: 09/21/2021 Time: 07:10 Bed 5 Private MD: Diagnosis: Right flank pain;Other hydronephrosis;Bladder tumor;Urinary tract infection;Other specified sepsis Presentation: 09/21 07:29 Chief complaint: Patient states: "I think I have a kidney stone.". Coronavirus screen: jd3 At this time, the client does not indicate any symptoms associated with coronavirus-19. Ebola Screen: No symptoms or risks identified at this time. Initial Sepsis Screen: Does the patient meet any 2 criteria? No. Patient's initial sepsis screen is negative. Does the patient have a suspected source of infection? No. Patient's initial sepsis screen is negative. Risk Assessment: Do you want to hurt yourself or someone else? Patient reports no desire to harm self or others. Onset of symptoms was September 21, 2021. 07:29 Acuity: DADA 3 jd3 07:29 Method Of Arrival: Wheelchair jd3 07:30 Chief complaint: Patient states: R flank pain for 2 days. ll1 Triage Assessment: 07:30 General: Appears uncomfortable, Behavior is calm, cooperative, appropriate for age. ss Pain: Complains of pain in right flank Quality of pain is described as aching, pressure, sharp, Pain began 1 day ago. : Reports pain in right flank(s). Historical: - Allergies: 07:29 No Known Allergies; jd3 - Home Meds: 07:29 amiodarone 400 mg Oral tab 1 tab once daily [Active]; budesonide inhalation [Active]; jd3 hydroxyzine HCl 25 mg Oral tab 1 tab 3 times per day [Active]; atorvastatin 40 mg Oral tab 1 tab once daily [Active]; carvedilol 3.125 mg Oral tab 1 tab [Active]; furosemide 20 mg Oral tab 1 tab 2 times per day [Active]; prednisone 10 mg Oral tab once daily [Active]; levothyroxine 88 mcg cap 1 cap once daily [Active]; Aileen-Shari 0.8 mg Oral tab [Active]; sevelamer carbonate 800 mg Oral tab 1 tab 3 times per day [Active]; - PMHx: 07:29 Bladder CA; Hypertension; Hypothyroidism; Dialysis; M,W,F; COPD; Anemia; POLYCYSTIC jd3 KIDNEY DISEASE; RENAL FAILURE; - PSHx: 07:29 L arm dialysis access; jd3 - Immunization history:: Adult Immunizations up to date, Client reports receiving the 2nd dose of the Covid vaccine, . - Social history:: Smoking status: Patient/guardian denies using tobacco, but has a distant history of tobacco abuse. Screenin:31 Abuse screen: Denies threats or abuse. Nutritional screening: No deficits noted. jd3 Tuberculosis screening: No symptoms or risk factors identified. Fall Risk Ambulatory Aid- None/Bed Rest/Nurse Assist (0 pts). Gait- Normal/Bed Rest/Wheelchair (0 pts) Mental Status- Oriented to own ability (0 pts). Total Hawkins Fall Scale indicates No Risk (0-24 pts). Assessment: 07:26 General: Appears in no apparent distress. comfortable, Behavior is calm, cooperative, jd3 appropriate for age. Pain: Complains of pain in right flank Quality of pain is described as sharp, shooting. Neuro: Level of Consciousness is awake, alert, obeys commands, Oriented to person, place, time, situation. Cardiovascular: Denies chest pain, Capillary refill < 3 seconds Patient's skin is warm and dry. Respiratory: Airway is patent Respiratory effort is even, unlabored, Respiratory pattern is regular, symmetrical, Breath sounds are clear bilaterally. Denies cough, shortness of breath. GI: Abdomen is non-distended, Bowel sounds present X 4 quads. Abd is soft and non tender X 4 quads. Reports lower abdominal pain, Patient currently denies nausea, vomiting. : No signs and/or symptoms were reported regarding the genitourinary system. EENT: No signs and/or symptoms were reported regarding the EENT system. Derm: Skin is intact, Skin is dry, Skin is normal, Skin temperature is warm. Musculoskeletal: Circulation, motion, and sensation intact. Range of motion: intact in all extremities. 08:31 Reassessment: Patient appears in no apparent distress at this time. Patient and/or jd3 family updated on plan of care and expected duration. Pain level reassessed. Patient is alert, oriented x 3, equal unlabored respirations, skin warm/dry/pink. Patient states feeling better. 09:32 Reassessment: Patient appears in no apparent distress at this time. Patient and/or jd3 family updated on plan of care and expected duration. Pain level reassessed. Patient is alert, oriented x 3, equal unlabored respirations, skin warm/dry/pink. 10:41 Reassessment: Patient appears in no apparent distress at this time. Patient and/or jd3 family updated on plan of care and expected duration. Pain level reassessed. Patient is alert, oriented x 3, equal unlabored respirations, skin warm/dry/pink. awaiting admission Patient denies pain at this time. 11:32 Reassessment: Patient appears in no apparent distress at this time. Patient and/or jd3 family updated on plan of care and expected duration. Pain level reassessed. Patient is alert, oriented x 3, equal unlabored respirations, skin warm/dry/pink. awaiting admission. Vital Signs: 07:26 Pulse Ox 80% on R/A; jd3 07:28 BP 111 / 70; Pulse 92; Resp 20 S; Temp 98.6(TE); Pulse Ox 99% on R/A; Pain 10/10; jd3 07:30 BP 111 / 70; Pulse 100; Resp 24; Temp 98.6; Pulse Ox 80% on R/A; Weight 73.48 kg; ll1 Height 5 ft. 10 in. (177.80 cm); Pain 9/10; 08:31 BP 131 / 59; Pulse 90; Resp 17 S; Pulse Ox 98% on 2 lpm NC; Pain 6/10; jd3 09:32 BP 136 / 70; Pulse 87; Resp 17 S; Pulse Ox 100% on 2 lpm NC; jd3 10:41 BP 122 / 75; Pulse 85; Resp 17 S; Pulse Ox 99% on 2 lpm NC; jd3 11:32 BP 118 / 51; Pulse 85; Resp 17 S; Pulse Ox 100% on 2 lpm NC; jd3 07:30 Body Mass Index 23.24 (73.48 kg, 177.80 cm) ll1 ED Course: 07:10 Patient arrived in ED. rg4 07:11 Leonel Membreno DO is Attending Physician. ms3 07:23 Hay Gallagher, RN is Primary Nurse. jd3 07:29 Triage completed. jd3 07:30 Arm band placed on. jd3 07:31 Patient has correct armband on for positive identification. Bed in low position. Call j light in reach. Side rails up X 1. Adult w/ patient. Pulse ox on. NIBP on. 07:39 Initial lab(s) drawn, by me, sent to lab. Inserted saline lock: 20 gauge in right em1 antecubital area, using aseptic technique. Blood collected. 08:27 CT Abd/Pelvis - Without Contrast In Process Unspecified. EDMS 10:25 Esdras Rendon MD is Hospitalizing Provider. ms3 13:33 No provider procedures requiring assistance completed. Patient admitted, IV remains in jd3 place. Administered Medications: 07:39 Drug: morphine 4 mg Route: IVP; Site: right antecubital; jd3 08:30 Follow up: Response: No adverse reaction; RASS: Alert and Calm (0) jd3 10:37 Drug: Rocephin (cefTRIAXone) 1 grams Route: IV; Rate: calculated rate; Site: right jd3 antecubital; 11:30 Follow up: Response: No adverse reaction; IV Status: Completed infusion jd3 Outcome: 10:27 Decision to Hospitalize by Provider. ms3 13:33 Admitted to ER Hold. Please see [facility] for further documentation. jd3 13:33 Condition: stable 13:33 Instructed on the need for admit, Demonstrated understanding of instructions. 15:11 Patient left the ED. ss Signatures: Dispatcher [employer] EDMS Jeff Gongora em1 Tamra Weldon RN RN ss Molly Marshall rg4 Hay Gallagher RN RN jd3 Byron Galindo RN RN ll1 Leonel Membreno DO DO ms3 Corrections: (The following items were deleted from the chart) 10:42 10:41 Reassessment: Patient appears in no apparent distress at this time. Patient jd3 and/or family updated on plan of care and expected duration. Pain level reassessed. Patient is alert, oriented x 3, equal unlabored respirations, skin warm/dry/pink. Patient denies pain at this time. jd3
[2021-09-21] MEDS ORDERED: NA CHLORIDE 0.9% 50 ML ONE (10:34)
[2021-09-21] MEDS ORDERED: CEFTRIAXONE 1000 MG/VIAL ONE (10:34)
[2021-09-21 10:45] LABS: Anisocytosis 1+; Blood Morphology Comment NOTED (NOT SEEN); Ovalocytes 1+; Platelet Estimate ADEQ; Poikilocytosis 1+; White Blood Cell Scan OK (OK)
[2021-09-21] MEDS ORDERED: ACETAMINOPHEN 500 MG TAB PO PRN (10:45)
[2021-09-21] MEDS ORDERED: ONDANSETRON 4 MG/2 ML VIAL IV PRN (10:45)
[2021-09-21 10:47] LABS: Teardrop Cell FEW
--- NOTE | 2021-09-21 10:51 | P.HP ---
Certification for Inpatient With expected LOS: >2 Midnights Patient will require the following post-hospital care: None Practitioner: I am a practitioner with admitting privileges, knowledge of patient current condition, hospital course, and medical plan of care. Services: Services provided to patient in accordance with Admission requirements found in Title 42 Section 412.3 of the Code of Federal Regulations Patient History Date of Service: 09/21/21 Reason for admission: Urinary tract infection, hematuria. History of Present Illness: Seven 6-year-old male patient with medical history significant for COPD, hypertension, hyperlipidemia, history of end-stage renal disease on dialysis on Sunday, Sunday, Sunday, chronic atrial fibrillation on anticoagulation with Eliquis was evaluated in the ER for episode of hematuria. He also had issues with lethargy and feeling unwell. He was worked up and found UA highly concerning for urinary tract infection and had imaging studies that confirmed bladder cancer for which he is on follow-up therapy with urologist. His urologist was discussed with and recommendations the patient should be given IV antibiotic therapy and be evaluated in hospital in [place]. There was no urgent indication for patient transfer to higher level of care. He denies overt episode of fever, chills but does feel lethargic. He denied headache or diarrhea. Allergies No Known Allergies Allergy (Verified 06/02/21 00:46) Home Medications: Levothyroxine [Synthroid*] 88 mcg PO DAILY 11/17/20 Atorvastatin Calcium 40 mg PO BEDTIME 02/19/21 Furosemide [Lasix] 20 mg PO BID 02/19/21 Carvedilol [Coreg] 3.125 mg PO BID 90 Days #180 tablet 02/20/21 Albuterol Inhaler [Ventolin Inhaler*] 2 puff IH Q6H PRN 06/02/21 Budesonide [Pulmicort*] 1 puff IH BID 06/02/21 hydrOXYzine HCL [Atarax*] 25 mg PO TID 06/02/21 Amiodarone HCl [Pacerone] 400 mg PO DAILY 08/01/21 Apixaban [Eliquis *] 2.5 mg PO BID 08/01/21 Folic Acid/Vit B Complex and C [Renal-Shari Tablet] 0.8 mg PO DAILY 08/01/21 Sevelamer Carbonate [Renvela*] 800 mg PO TIDWM 08/01/21 predniSONE [Deltasone] 10 mg PO DAILY 09/21/21 - Past Medical/Surgical History Diabetic: No -: HTN -: Hypothyroid -: polycystic kidney -: diverticulitis -: COPD -: anemia -: CKD -: bladder cancer -: ESRD/HD/MWF -: Thoracic aneurysm -: AAA repair -: Colonoscopy -: AAA repair Psychosocial/ Personal History: lives with - Family History Father -: Heart disease Mother -: Heart disease - Social History Alcohol use: No CD- Drugs: No Caffeine use: Yes Review of Systems General: Malaise Eyes: Unremarkable ENT: Unremarkable Respiratory: Unremarkable Cardiovascular: Unremarkable Gastrointestinal: Abdominal Pain Genitourinary: Hematuria Musculoskeletal: Unremarkable Integumentary: Unremarkable Physical Examination - Physical Exam General: Alert, Oriented x3 HEENT: Atraumatic, Normocephalic Neck: Supple Respiratory: Normal air movement Cardiovascular: Regular rate/rhythm, Normal S1 S2 Gastrointestinal: Soft and benign Neurological: Normal speech, Normal strength at 5/5 x4 extr, Cranial nerves 3-12 intact - Studies Laboratory Data (last 24 hrs) 09/21/21 09:05: PT 15.7 H, INR 1.42, APTT 37.3 H 09/21/21 07:35: Sodium 139, Potassium 4.3, BUN 26 H, Creatinine 7.42 H*, Glucose 114 H, Total Bilirubin 0.6, AST 13 L, ALT 13, Alkaline Phosphatase 71, Lipase Cancelled 09/21/21 07:35: WBC 14.0 H D, Hgb 9.0 L, Hct 28.2 L, Plt Count 242 Assessment and Plan - Plan 1. Urinary tract infection with hematuria: Patient does have significant hematuria and has been on Eliquis. For now we will hold Eliquis disease. We will continue to monitor vitals spinal protocol. We will continue empiric antibiotic of Rocephin pending urine culture finalization. Surgeon to evaluate patient post hospitalization 2. ESRD: We will continue dialysis on Sunday, Sunday, Sunday schedule. Nephrology consulted for dialysis needs. 3. Hypertension: We will continue antihypertensive medication as prescribed outpatient and monitor blood pressure per unit protocol 4. History of chronic atrial fibrillation: We will continue rate control medication. We will hold anticoagulation at this time due to hematuria 5. Anemia of renal disease: Management of anemia will be as per nephrology recommendation. We will monitor him globin on daily basis. Prophylaxis: SCDs for DVT prophylaxis due to hematuria episode. CODE STATUS: Full code Discharge Plan: Home - Advance Directives Does patient have a Living Will: Yes Does patient have a Durable POA for Healthcare: Yes
[2021-09-21 13:23] VITALS: BMI 23.2
[2021-09-21] MEDS ORDERED: HEPARIN 5000 UNIT/ML 1 ML VIAL SQ SCH (17:00)
[2021-09-21] MEDS ORDERED: ALBUTEROL INHALER 60 PUFF/8 GM IH PRN (17:26)
[2021-09-21] MEDS ORDERED: HOME MED 1 EA UNK [ALBUTEROL INHALER 60 PUFF/8 GM] IH PRN (17:38)
[2021-09-21] MEDS: BUDESONIDE 0.25 MG/2 ML NEB IH SCH (20:00)
[2021-09-21] MEDS: carvediloL 3.125 MG TAB PO SCH (20:58)
[2021-09-21] MEDS: ATORVASTATIN 40 MG TAB PO SCH (20:58)
[2021-09-21] MEDS: FUROSEMIDE 20 MG TABLET PO SCH (20:59)
[2021-09-21] MEDS: HYDROMORPHONE HCL 0.5 MG/0.5 ML INJ IV PRN (21:00)
[2021-09-21] MEDS: hydrOXYzine HCL 25 MG TAB PO SCH (21:01)
[2021-09-22] MEDS: LEVOTHYROXINE SOD 0.088 MG TAB PO SCH (05:47)
[2021-09-22 06:08] LABS: Absolute Lymphocytes (CBC) 2.2 K/uL (0.7-4.9); Hematocrit 27.6 % (39.6-49.0); Lymphocytes % 14.5 % (15.3-44.8); RBC Red Blood Cell Count 2.96 M/uL (4.33-5.43)
[2021-09-22 06:25] LABS: Potassium 5.1 mmol/L (3.5-5.1)
[2021-09-22] MEDS ORDERED: CEFTRIAXONE 1000 MG/VIAL ONE (07:39)
[2021-09-22] MEDS: BUDESONIDE 0.25 MG/2 ML NEB IH SCH ×2 (08:00→20:50)
[2021-09-22 08:04] LABS: Anisocytosis 1+; Blood Morphology Comment NOTED (NOT SEEN); Platelet Estimate ADEQ; Poikilocytosis SLIGHT; Teardrop Cell FEW
[2021-09-22 08:05] LABS: Ovalocytes SLIGHT
[2021-09-22] MEDS ORDERED: FOLIC ACID PO SCH (09:00)
[2021-09-22] MEDS ORDERED: HOME MED 1 EA UNK (Amiodarone Hcl [Pacerone] 400 MG Tablet) PO SCH (09:00)
[2021-09-22] MEDS ORDERED: VIT B COMPLEX AND C PO SCH (09:00)
[2021-09-22] MEDS: FUROSEMIDE 20 MG TABLET PO SCH ×2 (09:15→21:00)
[2021-09-22] MEDS: MULTIVITAMINS,THERAPEUT 1 TAB PO SCH (09:15)
[2021-09-22] MEDS: hydrOXYzine HCL 25 MG TAB PO SCH ×3 (09:15→20:33)
[2021-09-22] MEDS: SEVELAMER CARBONATE 800 MG TABLET PO SCH ×3 (09:16→17:00)
[2021-09-22] MEDS: CEFTRIAXONE 1,000 MG in NA CHLORIDE 0.9% 50 ML IVPB SCH (09:17)
[2021-09-22] MEDS: AMIODARONE HCL 200 MG TAB PO SCH (09:17)
[2021-09-22] MEDS: predniSONE 10 MG TAB PO SCH (09:17)
[2021-09-22] MEDS: carvediloL 3.125 MG TAB PO SCH ×2 (09:17→21:00)
[2021-09-22] MEDS: HYDROMORPHONE HCL 0.5 MG/0.5 ML INJ IV PRN (09:18)
--- NOTE | 2021-09-22 12:20 | RAD REPORT ---
EXAM DESCRIPTION: Naveen Single View09/22/2021 12:09 pm CLINICAL HISTORY: Chest pain COMPARISON: July 2021 FINDINGS: Moderate bilateral pulmonary opacities. Cardiomegaly. Small bilateral pleural effusions IMPRESSION: Moderate bilateral pulmonary opacities may represent pulmonary edema or pneumonia
--- NOTE | 2021-09-22 15:26 | CON ---
Date of Consultation: 09/22/2021 Reason For Consultation: Over volume, end-stage renal disease. 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 Huang, Urology at [facility], AAA thoracic and abdomen, COPD, the patient came to the hospital complaining from weakness and shortness of breath, found to have UTI wi th urosepsis and found to have positive COVID, for that reason admitted. The patient found to have e levation in BUN and creatinine and over volume. For that reason, we have been consulted. The patien t did not miss any of his dialysis. He was scheduled to have dialysis yesterday, but apparently he e nded up in the hospital. Past Medical History: Includes; 1.Hypertension. 2.Polycystic kidney disease. 3.COPD. 4.Hypothyroidism. 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 Follows up with Dr. Huang, Urology at [facility]. 6.Thoracic aortic aneurysm. 7.AAA. Past Surgical History: Includes; 1.AV fistula. 2.Cystoscopy. 3.Colonoscopy. Family History: Positive for hypertension and CAD. Social History: Ex-smoker. Denied alcohol. Denied drug abuse. Review of Systems: Head and Neck: No red eye. No ear pain. GI: Has abdominal pain. : Has hematuria. Conditioning Machine Operator: Not applicable. Respiratory: Has shortness of breath. Has cough. Cardiovascular: Has orthopnea. Endocrine: No polydipsia. Skin: No rash. Neuro: Has neuropathy. Musculoskeletal: Generalized fatigue. Physical Examination: General: When I saw the patient; the patient is lying in bed, on nasal cannula. Vital Signs: Blood pressure of 121/60, pulse of 81, afebrile. Chest: Crackles bilateral. Heart: S1, S2. Systolic murmur. Abdomen: Soft, nontender. Extremity: Trace edema. Neurological: Alert, oriented x3. No focal. Laboratory Data: WBC 14.9, H and H 8.6/27.6. Sodium 139, potassium 5.1, bicarb 25, BUN 41, creatini ne 9.1, calcium 9.1. Current Medications: The patient on include , heparin, amiodarone 400, atorvastatin, carve dilol 3.125 b.i.d., Lasix 20 b.i.d., Renvela 800 q.a.c., Zofran, levothyroxine 88 mcg, multivitamin. Assessment And Plan: 1.End-stage renal disease with over volume. We will dialyze the patient today and we will dialyze h im tomorrow to back up to his schedule and we will monitor the patient. 2.Over volume. The patient is going to be dialyzed today and tomorrow. 3.Hypertension. We will utilize blood pressure for more ultrafiltration. I am going to go ahead an d get chest x-ray to better evaluate the fluid status for the patient. 4.Urinary tract infection with hydronephrosis on the CT, complicated urinary tract infection and uro sepsis. The patient was started on ceftriaxone. Follow up blood culture and we will monitor. I had long discussion with the patient and the . The patient was seen by Dr. Huang, the urologist 2 days before admission and he is supposed to be arranged for the nephrectomy. We will follow up af ter the urinary tract infection treatment as outpatient. 5.Atrial fibrillation. The patient was started on Eliquis. We will follow up with Cardiology. Rat e has been controlled. 6.Time spend examining the patient [id number], discussing the case with the patient and the b y bedside, reviewing the data lab and radiology, discussing the case with the hospitalist and Urology 65 minutes. 7.COVID pneumonia as by primary. 8.Respiratory failure, multifactorial, secondary to COVID/over volume. We will try to achieve viral r volume control with dialysis and we will follow up. TOM/MATTHEW Voice ID: [id number] Report ID: [id number]
[2021-09-22] MEDS: ATORVASTATIN 40 MG TAB PO SCH (20:33)
--- NOTE | 2021-09-22 22:29 | P.PN ---
Subjective Date of Service: 09/22/21 Chief Complaint: Urinary tract infection, hematuria. Subjective: No new changes, Improving Physical Examination - Vital Signs Temperature: 97.7 F Blood Pressure: 100/50 Pulse: 89 Respirations: 18 Pulse Ox (%): 90 - Physical Exam General: Alert, Oriented x3 HEENT: Atraumatic, Normocephalic Neck: Supple Respiratory: Normal air movement Cardiovascular: Regular rate/rhythm, Normal S1 S2 Gastrointestinal: Soft and benign Neurological: Normal speech, Normal strength at 5/5 x4 extr, Cranial nerves 3-12 intact - Studies Microbiology Data (last 24 hrs): 09/21/21 09:05 Blood - Blood Blood Culture Gram Stain - Final Assessment And Plan - Plan 1. Urinary tract infection with hematuria: No more overt hematuria. we will follow labs and cultures closely. 2. ESRD: We will continue dialysis on Sunday, Sunday, Sunday schedule. Nephrology consulted for dialysis needs. 3. Hypertension: We will continue antihypertensive medication as prescribed outpatient and monitor blood pressure per unit protocol 4. History of chronic atrial fibrillation: We will continue rate control medication. We will hold anticoagulation at this time due to hematuria 5. Anemia of renal disease: Management of anemia will be as per nephrology recommendation. We will monitor hemoglobin on daily basis. Prophylaxis: SCDs for DVT prophylaxis due to hematuria episode. CODE STATUS: Full code
[2021-09-23] MEDS ORDERED: TRAMADOL HCL 50 MG TAB PO ONE (02:17)
[2021-09-23] MEDS: LEVOTHYROXINE SOD 0.088 MG TAB PO SCH (06:20)
--- NOTE | 2021-09-23 07:30 | P.PN ---
Subjective Date of Service: 09/23/21 Chief Complaint: Urinary tract infection, hematuria. Subjective: No new changes Physical Examination - Vital Signs Temperature: 97.3 F Blood Pressure: 99/56 Pulse: 89 Respirations: 16 Pulse Ox (%): 93 - Physical Exam General: Other (appears as his stated age) HEENT: Atraumatic, Normocephalic Neck: Supple, JVD not distended Respiratory: Other (symmetric chest expansion) Cardiovascular: No rubs, No murmurs Gastrointestinal: Soft and benign, No guarding Musculoskeletal: No clubbing Integumentary: No warmth Neurological: Normal speech, Normal tone Urinary: Other (no bladder distention) External genitalia: Deferred Rectal: Deferred - Studies Microbiology Data (last 24 hrs): 09/21/21 09:05 Blood - Blood Blood Culture Gram Stain - Final Assessment And Plan - Plan # ESRD 2/2 PKD on HD MWF at [facility] HD received yesterday EDW 73 kgs HD access: L arm AVG Next HD Sunday Renal diet Monitor renal panel # Volume overload Improved HD Sunday # Urethral cancer Prevoiusly discussed case with Dr. Cueto, Oncology. F/u w/ Oncology & Urology # Afib Eliquis # Covid Pneumonia Hx of COPD Received covid vaccine x 3 doses previously Per primary team # Htn BP at goal # Anemia Monitor H/H # Renal osteodystrophy Monitor Ca & Phos
[2021-09-23] MEDS: carvediloL 3.125 MG TAB PO SCH (09:00)
[2021-09-23] MEDS: HYDROMORPHONE HCL 0.5 MG/0.5 ML INJ IV PRN (09:48)
[2021-09-23] MEDS: CEFTRIAXONE 1,000 MG in NA CHLORIDE 0.9% 50 ML IVPB SCH (09:48)
[2021-09-23] MEDS: AMIODARONE HCL 200 MG TAB PO SCH (09:49)
[2021-09-23] MEDS: SEVELAMER CARBONATE 800 MG TABLET PO SCH ×2 (09:49→13:39)
[2021-09-23] MEDS: FUROSEMIDE 20 MG TABLET PO SCH (09:49)
[2021-09-23] MEDS: predniSONE 10 MG TAB PO SCH (09:49)
[2021-09-23] MEDS: MULTIVITAMINS,THERAPEUT 1 TAB PO SCH (09:49)
[2021-09-23] MEDS: hydrOXYzine HCL 25 MG TAB PO SCH (09:50)
[2021-09-23 10:02] VITALS: O2SAT 94
--- NOTE | 2021-09-23 12:28 | P.DS ---
Admission Date: 09/21/21 Discharge Date: 09/23/21 Discharge Condition: FAIR Reason for Admission: Urinary tract infection, hematuria. Brief History of Present Illness: Patient is 76 years of age admitted with hematuria he has chronic lower back pain in addition to bladder cancer Hospital Course: He was admitted to the hospital there is no evidence of a urinary tract infection patient did have hematuria anticoagulation discontinued due to the bladder cancer is to start taking aspirin patient is on dialysis cultures are all negative the time of my evaluation he was doing well alert oriented responsive still complaining of chronic lower back pain patient has history of COPD is on home oxygen new with bronchodilators Vital signs stable chest shows some wheezing abdomen soft extremities no edema/CT scan finding detailed below also has a thoracic and artery aneurysm Severe right-sided hydroureteronephrosis likely secondary to a suspected bladder mass. Findings remain concerning for bladder neoplasm as well as multiple renal and/or collecting system neoplasms. 2. 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 No evidence of rupture. Suggest vascular surgery referral Vital Signs/Physical Exam: Temp Pulse Resp BP Pulse Ox 97.3 F 89 16 115/53 L 93 09/23/21 09:13 09/23/21 09:13 09/23/21 09:13 09/23/21 09:49 09/23/21 09:13 Laboratory Data at Discharge: WBC 14.9 K/uL (4.3-10.9) H 09/22/21 05:46 Hgb 8.6 g/dL (13.6-17.9) L 09/22/21 05:46 Hct 27.6 % (39.6-49.0) L 09/22/21 05:46 Plt Count 209 K/uL (152-406) 09/22/21 05:46 PT 15.7 SECONDS (9.5-12.5) H 09/21/21 09:05 INR 1.42 09/21/21 09:05 APTT 37.3 SECONDS (24.3-36.9) H 09/21/21 09:05 Sodium 139 mmol/L (136-145) 09/22/21 05:46 Potassium 5.1 mmol/L (3.5-5.1) 09/22/21 05:46 BUN 41 mg/dL (7-18) H 09/22/21 05:46 Creatinine 9.16 mg/dL (0.55-1.3) H* D 09/22/21 05:46 Glucose 104 mg/dL (74-106) 09/22/21 05:46 Total Bilirubin 0.6 mg/dL (0.2-1.0) 09/21/21 07:35 AST 13 U/L (15-37) L 09/21/21 07:35 ALT 13 U/L (12-78) 09/21/21 07:35 Alkaline Phosphatase 71 U/L (45-117) 09/21/21 07:35 Lipase Cancelled 09/21/21 07:35 Home Medications: Levothyroxine [Synthroid*] 88 mcg PO DAILY 11/17/20 Atorvastatin Calcium 40 mg PO BEDTIME 02/19/21 Furosemide [Lasix] 20 mg PO BID 02/19/21 Carvedilol [Coreg] 3.125 mg PO BID 90 Days #180 tablet 02/20/21 Albuterol Inhaler [Ventolin Inhaler*] 2 puff IH Q6H PRN 06/02/21 Budesonide [Pulmicort*] 1 puff IH BID 06/02/21 hydrOXYzine HCL [Atarax*] 25 mg PO TID 06/02/21 Amiodarone HCl [Pacerone] 400 mg PO DAILY 08/01/21 Folic Acid/Vit B Complex and C [Renal-Shari Tablet] 0.8 mg PO DAILY 08/01/21 Sevelamer Carbonate [Renvela*] 800 mg PO TIDWM 08/01/21 predniSONE [Prednisone*] 10 mg PO DAILY 09/21/21 Sevelamer Carbonate [Renvela*] 800 mg PO TIDWM tablet 09/23/21 Physician Discharge Instructions: Hold Eliquis for now to start taking 81 mg of aspirin for atrial fibrillation/patient to check with his v groove cutter QUIQUE regarding anticoagulation Diet: Regular Activity: Ad irina Followup: Mookie Nguyen MD [Primary Care Provider] -
[2021-09-23 23:42] VITALS: BP 99/56; TEMP 97.3
--- NOTE | 2021-09-26 11:30 | EKG ---
Test Date: 2021-09-21 Test Time: 09:26:10 Retail Product Advisor: KATIE MEASUREMENT RESULTS: Intervals: Rate: 85 TX: 182 QRSD: 104 QT: 410 QTc: 487 [place]: P: 58 TX: 182 QRS: 87 T: 33 INTERPRETIVE STATEMENTS: Normal sinus rhythm Nonspecific ST abnormality Prolonged QT Abnormal ECG Compared to ECG 07/31/2021 22:15:43 Prolonged QT interval now present Atrial fibrillation no longer present Possible ischemia no longer present ST (T wave) deviation still present Electronically Signed On 09-26-21 11:14:55 CDT by Stephan Marino
== END 2021-09-23 14:00 | disposition home health service (06) | DRG 695 ==
LOC: ER 07:08 → ERHOLD 11:11 → 2ND 14:49
PROVIDERS: ADMIT Internal Medicine Nephrology; ATTEND Internal Medicine Sleep Medicine
PROC: 5A1D70Z Performance of Urinary Filtration, Intermittent, Less than 6 Hours Per Day (ICD-10-PCS; principal; 2021-09-22)
DX: R31.9 Hematuria, unspecified (principal); U07.1 COVID-19; J12.82 Pneumonia due to coronavirus disease 2019; J96.90 Respiratory failure, unspecified, unspecified whether with hypoxia or hypercapnia; I12.0 Hypertensive chronic kidney disease with stage 5 chronic kidney disease or end stage renal disease; C68.0 Malignant neoplasm of urethra; J44.0 Chronic obstructive pulmonary disease with (acute) lower respiratory infection; N18.6 End stage renal disease; N13.30 Unspecified hydronephrosis; D63.1 Anemia in chronic kidney disease; I48.91 Unspecified atrial fibrillation; E03.9 Hypothyroidism, unspecified; N25.0 Renal osteodystrophy; E87.70 Fluid overload, unspecified; N28.1 Cyst of kidney, acquired; J44.9 Chronic obstructive pulmonary disease, unspecified; Z85.51 Personal history of malignant neoplasm of bladder; Z79.890 Hormone replacement therapy; Z79.899 Other long term (current) drug therapy; Z99.2 Dependence on renal dialysis; Z79.01 Long term (current) use of anticoagulants; Z79.52 Long term (current) use of systemic steroids; Z99.81 Dependence on supplemental oxygen
CPT/HCPCS: 36415; 71045; 74176; 80048; 80053; 81003; 81015; 83605; 85025; 85610; 85730; 87040; 87086; 87088; 87205; 90935; 93005; 96365; 96375; 99285; J1170; J1644; J7512; J7634; U0003

== ENCOUNTER 2021-11-16 21:46 | Emergency (ER) | payer OTHER ==
--- OUTSIDE RECORDS SUMMARY | 2021-11-16 21:53 | XMS REPORT | Continuity of Care Document ---
:1945 Author Organization [facility] t Address [address] [place] [address] Care Team Providers Name Role Phone ALYSSA FARRIS Primary Care Physician Unavailable RAMESH HUANG Attending Clinician Unavailable ALYSSA FARRIS Attending Clinician Unavailable TONNY ACEVEDO Attending Clinician Unavailable JACKELYN HAHN Attending Clinician Unavailable AMY GORMAN Attending Clinician [...] Clinician Unavailable TONNY ACEVEDO Admitting Clinician Unavailable JACKELYN HAHN Admitting Clinician Unavailable KAYDEN Admitting Clinician Unavailable Payers Payer Name Policy Type Policy Number Effective Expiration Source Date Date MEDICARE A B [id number] 2010 00:00:00 [employer] [id number] 2016 00:00:00 CDC REVIEW [id number] 2020 2020 00:00:00 00:00:00 MEDICAREMEDICARE PART [id number] 2010 Nd thodist A AND 00:00:00 Hospital [id number] 2009 [place] AND [id number] 2020 Methodis t CASUALTYMediaPass LIFE 00:00:00 Hosp ital AND [id number]/2020-PresentCommercia l Problems Condition Condition Condition Status Onset Resolution Last Treating Co mments Source Name Details Category Date Date Treatment Clinician Date 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: Medical [place] Hematuria Hematuria Disease Active [facility] 00[facility] Medical 00 Center Altered Altered Disease Active [facility] mental [facility]05 [facility] status status 00:00: Medical Center s/p L CEA s/p L CEA Disease Active CHASITY Cadena 02/11 ( 02/11 ( 02-11 Julio Acevedo) 00:00: Medica l 00 Center Pre-transp Pre-transp Disease Active Last [facility] lant lant 12-19 Assessharsh Rueda evaluation evaluation 00:00: t & Plan: Medical for for 00 Due to Center chronic chronic his age, kidney kidney history disease disease of COPD, and AAA repair he is not an acceptabl e candidate for kidney transplan t. He understoo d and agreed with this decision. Hypertensi Hypertensi Disease Active Last [facility] on on 12-19 [facility] 00:00: t & Plan: Medical 00 Continue Center managemen t with nephrolog y as prescribe d. Aortic Aortic Disease Active Last [facility] aneurysm aneurysm 12-19 Assessmen [facility] 00:00: t & Plan: Medical Repaired Center with a stent in 2012. Polycystic Polycystic Disease Active 2017-[address] kidney kidney 12-19 [facility] 00:00: Medical 00 Center COPD COPD Disease Active Last [facility] St (chronic (chronic 12-19 Assessmen [facility] obstructiv obstructiv 00:00: t & Plan: Medical e e 00 [facility] Center pulmonary pulmonary d with disease) disease) inhalers. No history of smoking. Asthma Asthma Disease Active [facility] ESRD (end ESRD (end Disease Active [facility] stage stage [facility] renal renal Medical disease) disease) Center Dialysis Dialysis Disease Active [facility] S t patient patient [facility] S/P S/P Disease Active [facility] carotid carotid [facility] endarterec [facility]arterec [facility] Acute Acute Disease Active [facility] blood loss blood loss [facility] anemia anemia [facility] Hypovolemi Hypovolemi Disease Active C HI St c shock c shock 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 Bradycardi Bradycardi Disease Active C MI St a a [facility] Hypothyroi Hypothyroi Disease Active C MI [facility] dism, dism, [facility] unspecifie unspecifie Me dical d type d type Center ESRD on ESRD on Disease Active [facility] hemodialys hemodialys [facility] is Medical Center Allergies, Adverse Reactions, Alerts Allergy Allergy Status Severity Reaction(s) Onset Inactive Treating Comm ents Source Name Type Date Date Clinician NO KNOWN Allergy Active [facility] ALLERGIE S Family History Family Member Diagnosis Comments Start Date Stop Date Source Natural father Hypertension [facility] Natural father Heart disease [facility] Natural father Heart failure [facility] Natural mother Cancer [facility] Natural mother Hypertension [facility] Natural sister COPD [facility] Natural brother Cancer [facility] Natural daughter Polycystic kidney C [facility] Social History Social Habit Start Date Stop Date Quantity Comments Source History of tobacco Smoker [facility] Sex Assigned At [facility] Tobacco use and 2021-02-10 2021-02-10 Never used [facility] exposure 00:00:00 00:00:00 Medical Center Alcohol intake 2021-02-10 2021-02-10 Current [facility] 00:00:00 00:00:00 non-drinker of Medical Ce nter alcohol (finding) History SDOH 2020-07-29 2020-07-29 1 [facility] Frequency 00:00:00 00:00:00 Hospita l History SDOH 2020-07-29 2020-07-29 99 [facility] Std Drinks 00:00:00 00:00:00 Hospit al History SDOH 2020-07-29 2020-07-29 1 [facility] Binge 00:00:00 00:00:00 Hospital Smoking Status Start Date Stop Date Source Former smoker 2021-02-10 00:00:00 2021-02-10 00:00:[address] [facility] [facility] Medications Ordered Filled Start Stop Current Ordering Indication Dosage Frequency Signature Comments Components Source Medication Medication Date Date Medication? Clinician (SIG) Name Name folic Yes 1{tbl} QD Take [address] acid-multiv 8-19 tablet by [facility]pin es itamins 13:26: mouth Medical (NEPHRO-VIT 08 daily. Center E) 0.8 mg Tab tablet levothyroxi Yes 88ug Take [address] ne 8-19 mcg by [facility] (SYNTHROID, 13:26: mouth Medic al LEVOTHROID) 08 Every Center 88 MCG morning on tablet an empty stomach. sevelamer Yes 800mg Take [address] (RENVELA) 8-19 mg by [facility] 800 mg 13:26: mouth. Medical tablet 08 Center METOPROLOL Yes 25mg Take [address] TARTRATE 8-19 by mouth. [facility] ORAL 13:26: Medical 08 Center furosemide Yes 20mg Q.5D Take [address] (LASIX) 20 8-19 by mouth 2 [facility] es MG tablet 13:26: (two) Medical 08 times Center daily. hydrOXYzine Yes 25mg Take [address] (ATARAX) 25 8-19 by mouth 3 Yuliet kes MG tablet 13:26: (three) Medic al 08 times Center daily as needed for Itching. aspirin 81 Yes 81mg QD Take [address] MG EC 8-19 by mouth [facility] tablet 13:26: daily. Medical Center calcium Yes 1{tbl} [id number] Take [address] carbonate 8-19 [id number] tablet by [facility] (Calcium 13:26: 3D mouth 3 Medica l Antacid) 08 (three) Center 320 mg times calcium daily . (750 mg) Chew docusate Yes 100mg Take [address] sodium 8-19 mg by [facility]ukes (COLACE) 13:26: mouth 2 Medica l 100 MG 08 (two) Center capsule times daily as needed for Constipati on. ferric Yes Take by [facility] citrate 210 8-19 mouth as Luke s mg iron Tab 13:26: needed. Med ical 08 Center fluticasone Yes QD Inhale by C [facility] -umeclidin- 02-10 mouth via [facility] vilanter 13:26: inhaler Medica l (Trelegy 08 daily. Center Ellipta) 100-62.5-25 mcg DsDv fluticasone 2020- No 2{puff} Q.5D Inhale [address] propion-юлия -10 02-19 puffs by [facility]pin es meteroL 13:25: 00:00 mouth via Medi rinku 113-14 44 :00 inhaler 2 Center mcg/actuati (two) on AePB times daily. levoFLOXaci 2020- No 250mg Take [address] n 01-27-13 tablet [facility] (Levaquin) 00:00: 23:59 (250 mg Med ical 250 MG 00 :00 total) by Center tablet mouth every other day for 8 days. diphenhydrA 2020- No 25mg Take [address] MINE 6-15 06-15 by mouth [facility] (BENADRYL) 10:32: 00:00 every Medic al 25 mg 21 :00 night as Center tablet needed for Sleep. albuterol 2020- No 1{puff} Inhale [address] HFA 6-15 06-15 puff by [facility]ukes (VENTOLIN 10:32: 00:00 mouth via Me dical HFA) 90 05 :00 inhaler Center mcg/actuati every 6 on inhaler (six) hours as needed for Wheezing. sulfamethox 2020- No 80mg{tr QD Take [address] azole-trime 5-05 05-08 imethop tablet (80 [facility] thoprim 00:00: 23:59 rim} mg of Medical (BACTRIM,SE 00 :00 trimethopr Ce nter PTRA) im total) 400-80 mg by mouth per tablet daily for 3 days. doxycycline 2020- No 100mg Take [address] (VIBRAMYCIN 4-27 04-27 mg by [facility]ukes ) 100 MG 16:01: 00:00 mouth. Medica l capsule 29 :00 [place] levoFLOXaci No 250mg QD Take [address] n -27 04-27 mg by [facility]ukes (LEVAQUIN) 16:01: 00:00 mouth Medic al 250 MG 25 :00 daily. Center tablet predniSONE No 20mg QD Take [address] (DELTASONE) 10-19 04-27 by mouth [facility] es 20 MG 16:00: 00:00 daily. Medical tablet 39 :00 [place] metoprolol No 50mg Q.5D Take [address] tartrate 09-13-22 by mouth 2 Luke s (LOPRESSOR) 16:12: 00:00 (two) Medi rinku 50 MG 09 :00 times Center tablet daily. acetaminoph 2020- No 650mg Place [address] en 09-13-22 mg [facility]ukes (TYLENOL) 16:11: 00:00 rectally Med ical 650 MG 56 :00 every 4 Center suppository (four) hours as needed for Fever. tamsulosin 2020- No .4mg QD Take [address] (FLOMAX) 09-03 capsule [facility] 0.4 mg Cap 00:00: 23:59 (0.4 mg Med ical 24 hr 00 :00 total) by Center capsule mouth daily for 30 days. finasteride 2020- No 5mg QD Take [address] (PROSCAR) 5 09-03 tablet (5 Yuliet kes mg tablet 00:00: 23:59 mg total) Me dical 00 :00 by mouth Center daily for 30 days. oxybutynin 2020- No 5mg Q.[id number] Take [address] (DITROPAN) 09-02- [id number] tablet (5 [facility] 5 MG tablet 00:00: 23:59 3D mg total) Medical 00 :00 by mouth 3 Center (three) times daily for 30 days. aspirin 81 2020- No 81mg QD Take [address] MG EC 09-02 04-10 tablet (81 [facility] tablet 00:00: 23:59 mg total) Medic al 00 :00 by mouth Center daily for 30 days. levoFLOXaci 0 2020- No 250mg QD Take [address] n 09-02 03-16 tablet [facility] (LEVAQUIN) 00:00: 23:59 (250 mg Med ical [...] 2020- No 75mg QD Take 75 mg Methodi (PLAVIX) [...] while taking narcotic based pain meds. traMADoL [id number] 50mg Q6H Take 1 Metho di (Ultram) 50 07-29 tablet (50 s t mg tablet 00:00: 05:59 mg total) Ho spita 00 :00 by mouth l every 6 (six) hours as needed for moderate pain for up to 7 days .acute pain. atorvastati 40mg QD Take [address] n (LIPITOR) 02-12-21 tablet (40 L ukes 40 MG 00:00: 23:59 mg total) Medica l tablet 00 :00 by mouth Center nightly. clopidogreL 75mg QD Take [address] (PLAVIX) 75 02-12 03-11 tablet (75 L ukes mg tablet 00:00: 00:00 mg total) Me [...] 177.8 cm WEIGHT 2020-01-29 00:00:00 82 kg HEIGHT 2021-10-28 06:17:00 177.8 cm WEIGHT 2021-10-28 06:17:00 72.757 kg HEIGHT 2021-10-26 11:24:00 177.8 cm WEIGHT 2021-10-26 11:24:00 72.122 kg HEIGHT 2021-10-28 06:17:00 177.8 cm WEIGHT 2021-10-28 06:17:00 72.757 kg HEIGHT 2021-10-26 11:24:00 177.8 cm WEIGHT 2021-10-26 11:24:00 72.122 kg WEIGHT 2021-09-27 12:12:00 73.71 kg WEIGHT 2021-09-20 11:51:00 73.846 kg WEIGHT 2021-08-12 09:21:00 79.833 kg WEIGHT [...] Hospital Diastolic blood 2021-02-10 13:25:00 65 mm[Hg] [facility] Heart rate 2021-02-10 13:25:00 101 /min [facility] Body temperature 2021-02-10 13:25:00 36.72 Jailyn [facility] Body weight 2021-02-10 13:25:00 78.427 kg [facility] BMI 2021-02-10 13:25:00 27.08 kg/m2 [facility] Respiratory rate 2020-10-27 17:00:00 18 /min [facility] Oxygen saturation in 2020-10-27 17:00:00 98 /min [facility] Arterial blood by Medical Ce nter Pulse oximetry Body height 2020-10-23 02:16:00 170.2 cm [facility] Systolic blood 2020-07-29 16:16:00 136 mm[Hg] Method ist Hospital pressure Diastolic blood 2020-07-29 16:16:00 65 mm[Hg] [facility] Hospital pressure Heart rate 2020-07-29 16:16:00 90 /min Methodis [facility] Body temperature 2020-07-29 16:16:00 37.17 Jailyn [facility] Oxygen saturation in 2020-07-29 16:16:00 95 /min [facility] Arterial blood by Pulse oximetry Respiratory rate 2020-07-29 16:15:00 12 /min [facility] Body height 2020-07-29 11:29:00 177.8 cm [facility] Body weight 2020-07-29 11:29:00 82.3 kg [facility] BMI 2020-07-29 11:29:00 26.03 kg/m2 [facility] Procedures Procedure Date / Time Performing Clinician Source Performed URINE CULTURE, ROUTINE 2021-01-13 15:02:[address] [facility] URINE CULTURE, ROUTINE 2020-11-04 15:40:[address] [facility] UA/M W/RFLX CULTURE, 2020-11-04 15:40:00 Sebas Huang [facility] MICROSCOPIC EXAMINATION 2020-11-04 15:40:[address] [facility] PREPARE LEUKO-REDUCED 2020-10-28 23:54:00 [facility] RBC [facility] TRANSFUSE LEUKO-REDUCED 2020-10-27 11:34:36 Keith [facility] RED BLOOD CELLS [facility] HEMODIALYSIS INPATIENT 2020-10-27 07:47:[address] [facility] BASIC METABOLIC PANEL 2020-10-27 04:39:00 Sebas uHang [facility] (7) [facility] CBC W/PLT COUNT & AUTO 2020-10-27 04:39:00 Suzan Magdaleno [facility] BASIC METABOLIC PANEL 2020-10-26 03:41:00 Reina [facility] () [facility] CBC W/PLT COUNT & AUTO 2020-10-26 03:41:00 Suzan Magdaleno [facility] TISSUE EXAM 2020-10-25 18:39:00 Reina [facility] CYSTOSCOPY,INSERTION 2020-10-25 17:37:00 Sebas Huang [facility] URETERAL STENTS [facility] POTASSIUM 2020-10-25 13:16:00 Cuauhtemoc Dixon [facility] HEPAT[facility] B SURFACE 2020-10-25 09:18:00 [facility] ANTIBODY [facility] HEMODIALYSIS INPATIENT 2020-10-25 08:42:58 Darek[facility]well [facility] BASIC METABOLIC PANEL 2020-10-25 06:09:00 Sebas Huang [facility] (7) [facility] PHOSPHORUS 2020-10-25 06:09:00 [facility] CBC (HEMOGRAM ONLY) 2020-10-25 06:09:00 [facility] TYPE AND SCREEN, 2020-10-24 13:45:00 Sebas Huang CHI s AUTOMATED [facility] HEPATITIS B SURFACE 2020-10-23 14:18:00 [facility] ANTIGEN [facility] HEMODIALYSIS INPATIENT 2020-10-23 11:41:[address] [facility] BASIC METABOLIC PANEL 2020-10-23 04:31:00 Rayshawn Otero [facility] () [facility] CBC W/PLT COUNT & AUTO 2020-10-23 04:31:00 Rayshawn Otero [facility] SARS-COV2/RT-PCR ([facility] & 2020-10-22 23:20:00 Sebas Huang [facility] REF LABS) [facility] CT ABDOMEN/PELVIS WITH 2020-10-22 21:31:[address] [facility] IV CONTRAST Medical Center CBC W/PLT COUNT & AUTO 2020-10-22 21:12:00 Rayshawn Otero [facility] Center URINE CULTURE 2020-10-22 11:48:00 Sebas Huang [facility] BASIC METABOLIC PANEL 2020-10-22 11:48:[address] [facility] (7) [facility] CBC W/PLT COUNT & AUTO 2020-10-22 11:48:[address] DIFFERENTIAL [facility] PT/APTT 2020-10-22 11:48:[address] [facility] TYPE AND SCREEN, 2020-10-22 11:48:[address] Yuliet kes AUTOMATED [facility] CT ABDOMEN/PELVIS WITH & 2020-09-21 13:12:[address] [facility] WITHOUT IV CONTRAST [facility] er MR ABDOMEN WITHOUT IV 2020-09-02 11:20:[address] CONTRAST [facility] MR PELVIS WITHOUT IV 2020-09-02 11:20:00 Sebas Huang [facility] CONTRAST [facility] TISSUE EXAM 2020-08-31 12:53:[address] [facility] FL FLUORO NON-SPECIFIC 2020-08-31 12:50:[address] [facility] UP TO 1 HOUR [facility] CYSTOSCOPY,INSERTION 2020-08-31 11:42:00 Sebas Huang [facility] URETERAL STENTS [facility] CBC W/PLT COUNT & AUTO 2020-08-31 04:50:00 Arianna Whitt [facility] COMPREHENSIVE METABOLIC 2020-08-31 04:50:00 Pedro Farris [facility] MAGNESIUM 2020-08-31 04:50:00 Pedro Farris [facility] NM MYOCARDIAL PERFUSION 2020-08-30 16:44:[address] [facility] SPECT, PHARM(LEXISCAN) [facility] enter HEMODIALYSIS INPATIENT 2020-08-30 11:55:05 Jluis Parker [facility] CBC W/PLT COUNT & AUTO 2020-08-30 05:14:00 [facility] LIPID PANEL 2020-08-30 05:14:00 Humberto Reed [facility] 2D ECHO W/ DOPPLER 2020-08-29 13:22:39 Ty, [facility] (CW/PW/COLOR) [facility] T4, FREE 2020-08-29 12:22:00 Ty, [facility] TSH 2020-08-29 12:22:00 Ty, [facility] FERRITIN 2020-08-29 12:22:00 Ty, [facility] VITAMIN B12 2020-08-29 12:22:00 Ty, [facility] PSA 2020-08-29 12:22:00 Ty, [facility] US RENAL COMPLETE 2020-08-29 11:15:00 Sebas Huang [facility] CT BRAIN WITHOUT IV 2020-08-29 05:02:00 Steve Welsh CH [facility] TROPONIN I 2020-08-29 04:21:00 Owen Jhaveri [facility] BASIC METABOLIC PANEL 2020-08-29 04:21:00 [facility] (7) [facility] CBC W/PLT COUNT & AUTO 2020-08-29 04:21:00 [facility] RETICULOCYTE COUNT 2020-08-29 04:21:00 Ty, [facility] OCCULT BLOOD, STOOL 2020-08-29 02:52:00 Owen Jhaveri CH, I [facility] TROPONIN I 2020-08-28 16:08:00 Owen Jhaveri [facility] HEPATITIS B SURFACE 2020-08-28 16:06:00 Keith [facility] ANTIGEN [facility] HEPATITIS B SURFACE 2020-08-28 15:26:00 Keith [facility] ANTIBODY [facility] HEMODIALYSIS INPATIENT 2020-08-28 11:36:[address] [facility] TROPONIN I 2020-08-28 05:56:00 Owen Jhaveri [facility] CBC W/PLT COUNT & AUTO 2020-08-28 05:56:00 BrentonPedro pickett [facility] BASIC METABOLIC PANEL 2020-08-28 05:56:00 Pedro Farris [facility] (7) [facility] ECG 12-LEAD 2020-08-28 01:21:18 Unknown, Hl7 Doctor [facility] HEMOGLOBIN A1C 2020-08-28 01:19:00 [facility] 2020-08-28 01:05:00 [facility]INALYSIS W/ REFLEX 2020-08-28 01:05:[address] [facility] URINE CULTURE [facility] CBC W/PLT COUNT & AUTO 2020-08-28 01:05:00 [facility]PRE[facility]IVE METABOLIC 2020-08-28 01:05:00 Janette Jhaveri [facility] MAGNESIUM 2020-08-28 01:05:00 Owen Jhaveri [facility] PHOSPHORUS 2020-08-28 01:05:00 [facility] PROTHROMBIN TIME/INR 2020-08-28 01:05:00 Owen Jhaveri [facility] HEPATIC FUNCTION PANEL 2020-08-28 01:05:[address] [facility] LIPID PANEL 2020-08-28 01:05:00 [facility] REPORT OF PROCEDURE - 2020-08-27 00:00:00 Provider, Yoko [facility] ENDOSCOPY SCAN [facility] [place] AN ELECTIVE 2020-07-29 14:11:47 Rafael Blas Ho spital ENDOTRACHEAL AIRWAY THROMBECTOMY, GRAFT, AV 2020-07-29 13:39:00 Jose Keen [facility] POTASSIUM, SYRINGE 2020-07-29 13:00:00 Jose Keen [facility] POTASSIUM, SYRINGE 2020-07-29 12:11:00 Jose Keen [facility] HEMOGLOBIN, SYRINGE 2020-07-29 12:11:00 Jose Keen [facility] GLUCOSE LEVEL, SYRINGE 2020-07-29 12:11:00 Jose Keen [facility] ECG PRE/POST OP 2020-07-27 21:26:54 [facility] HEMOGLOBIN A1C 2020-07-27 21:19:00 [facility] HEMOGLOBIN 2020-07-27 21:19:00 [place] Jose [facility] POTASSIUM LEVEL 2020-07-27 21:19:00 [place] [facility] GLUCOSE LEVEL 2020-07-27 21:19:00 [facility] COVID-19 QUALITATIVE 2020-07-27 20:57:00 KeenJose [facility] RT-PCR RHYTHM STRIP - SCAN 2020-02-19 12:30:59 Provider, Default [facility] Plan of Care Planned Activity Planned Date Details Comments Source Future Scheduled 2021-08-[address] [facility] Test 00:00:00 [facility] colon (procedure) [code = 439862739] Future Scheduled 2021-02-23 INFLUENZA VACCINE (#1) [facility] Test 00:00:00 [code = INFLUENZA Medical Ce nter VACCINE (#1)] Future Scheduled 2011-05-[address] [facility] Test 00:00:00 WELLNESS (YEAR 2 or Medical Center FIRST YEAR if no IPPE) [code = MEDICARE ANNUAL WELLNESS (YEAR 2 or FIRST YEAR if no IPPE)] Future Scheduled 2010 PNEUMOCOCCAL 65+ YRS [facility] Test 00:00:00 (1 of 1 - Medical Center [id number] PCV13) [code = PNEUMOCOCCAL 65+ YRS (1 of 1 - [id number] PCV13)] Future Scheduled 1995 SHINGLES VACCINES ([address] [facility] Test 00:00:00 of 2) [code = SHINGLES Medic hi Center VACCINES (1 of 2)] Future Scheduled 1964 DTAP/TDAP/TD VACCINES [facility] Test 00:00:00 (1 - Tdap) [code = Medical C enter DTAP/TDAP/TD VACCINES (1 - Tdap)] Future Scheduled 1963 HEPATITIS C SCREENING [facility] Test 00:00:00 [code = HEPATITIS C Medical Center SCREENING] Future Scheduled [facility] C [facility] (procedure) [code = 184927543] Future Scheduled COLONOSCOPY SCREENING [facility] Test [code = COLONOSCOPY SCREENING] Future [...] Type Clinicians Facility Department ID 2021-04-03 Outpatient [facility] Surgery [id number] SLS 11:01:56 SEBAS 2021-04-02 Outpatient [facility] Surgery [id number] SLS 16:32:40 SEBAS 2021-04-02 [id number] 06:41:40 [facility] 2021-03-30 Inpatient [facility] Surgery [id number] SLE 02:21:06 BIN 2021-10-28 2021-10-29 [facility] [id number] SLE 05:35:00 17:09:00 CRYSTAL 2021-10-26 2021-10-26 Outpatient [facility] [id number] SLE 11:32:11 23:59:00 2021-10-20 2021-10[facility] [id number] [facility] 00[facility]00 [facility] 2021-10-18 2021[facility]10-18 [facility] [id number] 00:00:00 [facility] 2021-09-27 2021-09-27 Outpatient ADELINA HUANG, [facility] [id number] 11:13:43 13:24:06 [facility] 2021-09-20 2021-09-20 Outpatient REINA [facility] [id number] 10:49:19 12:41:40 [facility] 2021-08-12 2021-08-12 Outpatient REINA [facility] [id number] 09:00:39 10:05:10 [facility] 2021-08-11 2021-08-11 Outpatient REINA [facility] [id number] 00:00[facility]00 00:00:00 [facility] 2021-06-07 2021-06-07 Outpatient ADELINA GORMAN, [facility] [id number] [facility] 08:31:56 08:31:56 [facility] 2021-05-26 2021-05-26 Outpatient ADELINA ACEVEDO [facility] [id number] [facility] 00:00:00 00:00:00 [facility]IN 2021-04-26 2021-04-26 Outpatient ADELINA SLSL [facility] [id number] SLSL 13:26:28 23:59:00 2021-04-26 2021-04-26 Outpatient ADELINA HUANG, [facility]SL [facility] [id number] [facility] 13:26:17 23:59:00 SEBAS 2021-04-21 2021-04-21 Outpatient REINA [facility] [id number] 08:21:47 09:25:29 [facility] 2021-04-12 2021-04-12 Outpatient REINA [facility] [id number] 00:00:00 00:00:00 [facility] 2021-03-31 2021-03-31 Outpatient [facility] [facility] [id number] [facility] 08:49:29 10:07:05 [facility] 2021-03-24 2021-03-24 Outpatient [facility] [id number] [facility] 00:00:00 00:00:00 2021-03-24 2021-03-24 Outpatient EL [facility] [id number] [facility] 00:00:00 00:00:00 2021-03-24 2021-03-24 Outpatient REINA [facility] [id number] [facility] 00[facility] 00:00:00 [facility] 2021-03-22 2021-03-22 Outpatient REINA [facility] [id number] 00[facility]00 00:00:00 [facility] 2021-03-17 2021-03-17 Outpatient EL [facility] [id number] [facility] 00:00:00 00:00:00 2021-03-17 2021-03-17 Outpatient REINA [facility] [id number] 00[facility]00 00:00:00 [facility] 2021-03-11 2021-03-11 Outpatient EL [facility] [id number] [facility] 00:00:00 00:00:00 2021-02-17 2021-02-[address] [facility] [id number] 00:[facility] 00[facility]00 [facility] 2021-02-10 2021-02-[address] [facility] [id number] [id number] 13:12:47 14:02:58 visit [facility] 2021-01-27 2021-01-27 Outpatient REINA [facility] [id number] 00:[facility]00 00:00:00 [facility] 2021-01-27 2021-01-[address] [facility] [id number] 00:00[facility]00 00:00:00 Only [facility] 2021-01-13 2021-01-[address] [facility] [id number] 08:59:50 10:28:11 Visit [facility] 2020-12-07 2020-12-[address] [facility] [id number] 09:28:24 11:43:01 Visit [facility] 2020-12-02 2020-12-[address] [facility] [id number] [id number] 00:[facility]00 00:00:00 [facility] 2020-11-04 2020-11-[address] [facility] [id number] 08:50:13 10:38:54 Visit [facility] 2020-10-28 2020-10-28 Outpatient EL [facility] [id number] [facility] 00:00:00 00:00:00 2020-10-22 2020-10-[address] [facility] [id number] [facility] 20:30:00 17:53:[address] [facility] 2020-10-25 2020-10-25 Anesthesia Cuauhtemoc Dixon [facility] [id number] [facility] 17:37:00 18:41:[address] [facility] 2020-10-25 2020-10-25 Surgery Reina, [facility] [id number] 13:30:00 14:45:00 [facility] 2020-10-23 2020-10-23 Travel [facility] [id number] [facility] 00:[facility]:00 [facility] 2020-10-22 2020-10-[address] [facility] [id number] 11:47:21 20:29:00 Encounter [facility] 2020-10-22 2020-10-22 Emergency ER [facility] Emergency [id number] [facility] 20:14:00 20:14:00 2020-10-22 2020-10-22 Outpatient EL [facility] [id number] [facility] 00:00:00 00:00:00 2020-10-19 2020-10-19 Travel [facility] [id number] [facility] 00[facility]00 [facility] 2020-10-19 2020-10-[address] [facility] [id number] 00:[facility]00 00:00:00 [facility] 2020-10-06 2020-10-[address] [facility] [id number] [id number] 00:[facility] 00:00:00 [facility] 2020-09-30 2020-09-30 [id number] 13:08:05 14:49:10 Visit [facility] 2020-09-21 2020-09-21 [facility] [id number] [facility] 12:18:35 23:59:00 Encounter [facility] 2020-09-21 2020-09-21 [facility] [id number] [facility] 00:00:00 00:00:00 2020-09-20 2020-09-20 Outpatient EL [facility] [id number] [facility] 00:00:00 00:00:00 2020-09-16 2020-09-16 Outside Reina, [facility] [id number] 00:[facility]00 00:00:00 Orders [facility] 2020-09-13 2020-09-13 [id number] 15:09:40 17:08:47 Visit [facility] 2020-08-27 2020-09-02 [facility] Pedro Becerra [facility] [id number] 22:17:00 14:43:00 Encounter [facility] 2020-08-31 2020-08-[address] [facility] [id number] [facility] 11:42:00 13:11:[address] [facility] 2020-08-31 2020-08-31 Surgery Reina, [facility] [id number] 11:00:00 12:15:00 Sebas [facility] 2020-08-28 2020-08-[address] [facility] [id number] 00:00:00 00:00:[address] [facility] 2020-08-27 2020-08-27 Travel [facility] [id number] [facility]00 00:[facility]:00 [facility] 2020-08-26 2020-08-26 Office Kayden, 1.2.840.7 [id number] Methodi 14:27:45 16:08:33 Visit Jose Rodgers 28945.1.[address] 3.430.2.7 Hospit a .3.744173 l .8 2020-08-26 2020-08-26 Travel 1.2.840.1 1.2.667.897 [id number] Methodi 00:00:00 00:00:[address] 3.430.2.7 0.2.7.3.698 Ho spita .3.514502 084.8 l .8 2020-08-02 2020-08-02 Travel 1.2.840.1 1.2.773.838 [id number] Methodi 00:00:00 00:00:[address] 3.430.2.7 0.2.7.3.698 Ho spita .3.909349 084.8 l .8 2020-07-30 2020-07-30 Telephone Kayden, 1.2.840.7 [id number] Methodi 00:00:00 00:00:00 Jose Rodgers 07469.1.[address] 3.430.2.7 Hospit a .3.415736 l .8 2020-07-29 2020-07-29 [facility], 1.2.840.1 [id number] Methodi 05:10:00 11:27:00 Encounter Jose Rodgers 56802.1.[address] 3.430.2.7 Hospit a .3.560448 l .8 2020-07-29 2020-07-29 Surgery [place], 1.2.840.1 [id number] Methodi 07:30:00 09:25:00 Jose Rodgers 88356.1.[address] 3.430.2.7 Hospit a .3.526868 l .8 2020-07-29 2020-07-29 Anesthesia Saud Villatoro 1.2.840.1 [id number] Methodi 07:40:00 09:17:00 Event Rose Garcia 90276.1.[address] 3.430.2.7 Hospit a .3.528879 l .8 2020-07-29 2020-07-29 [facility] Damaris, 1.2.840.1 [id number] Methodi 00:00:00 00:00:00 Only Derrick Jeong 73379.1.[address] 3.430.2.7 Hospit a .3.366995 l .8 2020-07-29 2020-07-29 Travel 1.2.840.1 1.2.499.586 [id number] Methodi 00:00:00 00:00:[address] 3.430.2.7 0.2.7.3.698 spita .3.077062 084.8 l .8 2020-07-27 2020-07-27 Pre-Admiss [place], 1.2.840.1 [id number] Methodi 14:35:19 15:35:19 ion Jose Rodgers 77295.1.[address] Testing 3.430.2.7 Hospit a .3.202654 l .8 2020-07-27 2020-07-27 Travel 1.2.840.1 1.2.501.026 [id number] Methodi 00:00:00 00:00:[address] 3.430.2.7 0.2.7.3.698 Ho spita .3.867023 084.8 l .8 2020-07-23 2020-07-23 Telephone Kayden, 1.2.840.0 [id number] Methodi 00:00:00 00:00:00 Jose Rodgers 20820.1.[address] 3.430.2.7 Hospit a .3.295318 l .8 2020-07-23 2020-07-23 Travel 1.2.840.1 1.2.117.493 [id number] Methodi 00:00:00 00:00:[address] 3.430.2.7 0.2.7.3.698 Ho spita .3.813751 084.8 l .8 2020-07-22 2020-07-22 Office Kayden, 1.2.840.0 [id number] Methodi 14:38:20 15:37:56 Visit Jose Rodgers 29486.1.[address] 3.430.2.7 Hospit a .3.334474 l .8 2020-07-21 2020-07-21 Travel 1.2.840.1 1.2.487.908 [id number] Methodi 00:00:00 00:00:[address] 3.430.2.7 0.2.7.3.698 Ho spita .3.419328 084.8 l .8 2020-02-26 2020-02-[address] [facility] [id number] [facility] [address] 10:18:16 10:14:49 Visit [facility] 2020-02-26 2020-02-26 Outpatient SERGO GHOTRA [facility] [id number] [facility] 00:00:00 00:00:00 BIN 2020-02-03 2020-02-03 Outpatient SERGO GHOTRA [facility] [id number] [facility] 00:00:00 00:00:00 BIN 2020-01-30 2020-01-30 Outpatient ADELINA [facility] [id number] [facility] 00:00:00 00:00:00 Results Test Description Test Time Test Comments Results Result Sour e Comments TISSUE EXAM 2021-11-11 Surgical Pathology Report 15:48:24 Case: [id number] Authorizing Provider: Roberto Hahn MD Collected: 10/28/2021 08:33 AM Ordering Location: [facility] PERIOPERATIVE Received: 10/28/2021 01:17 PM SERVICES Pathologist: Kami Madrigal MD Specimens: A) - Bladder Tumor, Bladder tumor lateral to left UO B) - Soft Tissue, Other, Posterior midline C) - Bladder Tumor, Bladder tumor high posterior wall D) - Bladder Tumor, Bladder tumor, anterior wall E) - Prostate, TURP, TUR - Apical Prostatic Urethra Tissue F) - Bladder Tumor, Bladder Neck Tumor This addendum is issued to report the findings of the p63 immunostain on the bladder neck TURBT (part F).COMMENT: P63 (a basal cell marker in the prostate) was performed, with appropriate controls. The well-circumscribed nests of tumor in thick bundles of smooth muscle (adjacent to benign prostatic glands) have surrounding basal cells. 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 Addendum electronically signed by Kami Madrigal MD on 11/11/2021 at 3:48 PMA. 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 APICAL PROSTATIC URETHRA, TRANSURETHRAL RESECTION OF PROSTATE:-UROTHELIAL CARCINOMA, HIGH-GRADE (WHO GRADE 3) -TUMOR SUPERFICIALLY INVADES PROSTATIC STROMA SURROUNDING DUCTS BY INVASION FROM PROSTATIC DUCTS-UROTHELIAL CARCINOMA IN SITU INVOLVING THE PROSTATIC URETHRA AND PROSTATIC DUCTS -DEPTH OF INVASION: LESS THAN 0.5 MM -NO LYMPHOVASCULAR INVASION IDENTIFIED -NODULAR PROSTATIC HYPERPLASIAF. 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 There are multiple areas of invasion into the lamina propria, with depth of invasion ranging between 0.5 to 1 mm. There is a piece of tissue with well-circumscribed nests of tumor in thick bundles of smooth muscle. These well-circumscribed nests of tumor are seen adjacent to benign prostatic glands. The well-circumscribed nature of the nests of tumor and their location proximal to benign prostatic glands are suspicious for urothelial carcinoma involving the prostatic ducts, but invasion into the muscularis propria cannot definitively be ruled out. A prostatic basal cell marker will be performed, and the results will be issued in an addendum to follow.[id number] (V5), [id number], [id number] year old man presented with gross hematuria, found to have high grade urothelial carcinoma of bladderBladderA. Bladder Tumor.Received in formalin, labeled with the patient's name, accession number, and "bladder tumor", are multiple pineda-white irregular tissue fragments that measure 1.3 x 1.1 x 0.4 cm. The specimen is entirely submitted in cassette A1.B. Soft Tissue, Other.Received in formalin, labeled with the patient's name, accession number, and "soft tissue, other", is a pineda-pink irregular tissue fragment that measures 1.1 x 0.9 x 0.3 cm. The specimen is entirely submitted in cassette B1.C. Bladder Tumor.Received in formalin, labeled with the patient's name, accession number, and "bladder tumor", are multiple irregular, pineda-pink, rubbery tissue fragments that measure 2.5 x 2 x 0.5 cm in aggregate. The specimen is entirely submitted in cassettes C1-C2. D. Bladder Tumor.Received in formalin, labeled with the patient's name, accession number, and "bladder tumor", are multiple pineda-pink irregular tissue fragments that measure 1.5 x 4 x 0.5 cm in aggregate. The specimen is entirely submitted in cassettes D1-D5. E. Prostate, TURP.Received in formalin labeled with the patient's name, MRN and "prostate, TURP" are 2 pineda-pink irregular rubbery tissue fragments that weigh 0.2 g in aggregate and measure 0.8 x 0.6 x 0.3 and 0.9 x 0.6 x 0.4 cm. The specimen is entirely submitted in cassette E1.F. Bladder Tumor.Received in formalin, labeled with the patient's name, accession number, and "bladder tumor", are multiple pineda-pink irregular tissue fragments that measure 3 x 5 x 0.5 cm in aggregate. The specimen is entirely submitted in cassettes F1-F3.A, B, C, D. Sections have multiple pieces of a papillary tumor. The neoplastic cells are characterized by large hyperchromatic atypical nuclei with irregular nuclear contours and occasionally prominent nucleoli. The cells are haphazardly arranged with loss of polarity. There are abundant mitotic figures and apoptotic bodies present in the urothelium. Invasion is identified into the lamina propria. No involvement of the muscularis propria is seen. No lymphovascular invasion is identified.E. Section of the apical urethral tissue have pieces of benign prostatic tissue involved by urothelial carcinoma. Urothelial carcinoma in situ in the surface epithelium, and urothelial carcinoma in situ involves a few of the prostatic ducts. There is a focus of invasion into the underlying subepithelial tissue, and the depth of invasion is less than 0.5 mm. F. Performed (please see comment).The interpretation of this case included the use of immunohistochemistry or special stains.Control Slides Examined: In-house known positive controls were evaluated along with the test tissue. These control slides run alongside of the patients sample show appropriate staining. Internal positive and negative controls when available are evaluated Immunohistochemistry technical testing was performed at [facility], Pathology Laboratory where it was developed and its performance characteristics were determined. It has not been cleared or approved by the U.S. Food and Drug Administration. The FDA has determined that such clearance or approval is not necessary. The test is used for clinical purposes. It should not be regarded as investigational or for research. This laboratory is certified under the Clinical Laboratory Improvement Amendments of 1988 (CLIA-88) as qualified to perform high complexity clinical laboratory testing.[facility], Department of Pathology, [address] [place] [address], [facility], [facility] of Path[facility], [address] [place] [address], [facility], Department of Path[facility], [address] [place] [address] 466[address], BASIC METABOLIC PANEL 2021-10-29 07:58:26 Test Item Value Reference Range Interpretation Comme nts SODIUM (BEAKER) (test code 135 meq/L 136-145 L = 381) POTASSIUM (BEAKER) (test 5.4 meq/L 3.5-5.1 H code = 379) CHLORIDE (BEAKER) (test 101 meq/L 98-107 code = 382) CO2 (BEAKER) (test code = 24 meq/L 22-29 355) BLOOD UREA NITROGEN 17 mg/dL 7-21 (BEAKER) (test code = 354) CREATININE (BEAKER) (test 5.51 mg/dL 0.57-1.25 H code = 358) GLUCOSE RANDOM (BEAKER) 134 mg/dL 70-105 H (test code = 652) CALCIUM (BEAKER) (test code 8.7 mg/dL 8.4-10.2 = 697) EGFR (BEAKER) (test code = 10 mL/min/1.73 sq m ESTIMATED GFR IS NOT 1092) ACCURATE CRE ATININE CLEARANCE IN NV EDICTING GLOMERULAR FILT RATION RATE. ESTIMATED GFR IS NOT APPLICABLE FOR DIALYSIS PATIENTS. Binding Printer ID - [id number] W/PLT COUNT & AUTO [id number] 06:17:28 Test Item Value Reference Range Interpretation Comments WHITE BLOOD CELL COUNT (BEAKER) 10.7 K/ L 3.5-10.5 H (test code = 775) RED BLOOD CELL COUNT (BEAKER) 2.86 M/ L 4.63-6.08 L (test code = 761) HEMOGLOBIN (BEAKER) (test code = 8.7 GM/DL 13.7-17.5 L 410) HEMATOCRIT (BEAKER) (test code = 28.6 % 40.1-51.0 L 411) MEAN CORPUSCULAR VOLUME (BEAKER) 100.0 fL 79.0-92.2 H (test code = 753) MEAN CORPUSCULAR HEMOGLOBIN 30.4 pg 25.7-32.2 (BEAKER) (test code = 751) MEAN CORPUSCULAR HEMOGLOBIN CONC 30.4 GM/DL 32.3-36.5 L (BEAKER) (test code = 752) RED CELL DISTRIBUTION WIDTH 18.4 % 11.6-14.4 H (BEAKER) (test code = 412) PLATELET COUNT (BEAKER) (test 123 K/CU MM 150-450 L code = 756) MEAN PLATELET VOLUME (BEAKER) 10.7 fL 9.4-12.4 (test code = 754) NUCLEATED RED BLOOD CELLS 0 /100 WBC 0-0 (BEAKER) (test code = 413) NEUTROPHILS RELATIVE PERCENT 86 % (BEAKER) (test code = 429) LYMPHOCYTES RELATIVE PERCENT 9 % (BEAKER) (test code = 430) MONOCYTES RELATIVE PERCENT 4 % (BEAKER) (test code = 431) EOSINOPHILS RELATIVE PERCENT 0 % (BEAKER) (test code = 432) BASOPHILS RELATIVE PERCENT 0 % (BEAKER) (test code = 437) NEUTROPHILS ABSOLUTE COUNT 9.21 K/ L 1.78-5.38 H (BEAKER) (test code = 670) LYMPHOCYTES ABSOLUTE COUNT 0.98 K/ L 1.32-3.57 L (BEAKER) (test code = 414) MONOCYTES ABSOLUTE COUNT (BEAKER) 0.38 K/ L 0.30-0.82 (test code = 415) EOSINOPHILS ABSOLUTE COUNT 0.03 K/ L 0.04-0.54 L (BEAKER) (test code = 416) BASOPHILS ABSOLUTE COUNT (BEAKER) 0.02 K/ L 0.01-0.08 (test code = 417) IMMATURE GRANULOCYTES-RELATIVE 1 % 0-1 PERCENT (BEAKER) (test code = 2801) PROTHROMBIN [id number] 06:49:16 Test Item Value Reference Range Interpretation Comments PROTIME (BEAKER) 15.4 seconds 11.9-14.2 H (test code = 759) INR (BEAKER) (test 1.24 See_Comment [Automat ed message] code = 370) The system [employer] generated this result transmitted ref erence range: <=5.90. The reference range was not used to int erpret this result as normal/abnormal . RECOMMENDED COUMADIN/WARFARIN INR THERAPY RANGESSTANDARD DOSE: 2.0 - 3.0 Includes: PROPHYLAXIS forvenous thrombosis, systemic embolization; TREATMENT for venous thrombosis and/or pulmonary embolus.HIGH RISK: Target INR is 2.5-3.5 for patients with mechanical heart valves.BASIC METABOLIC [id number] 06:48:04 Test Item Value Reference Range Interpretation Comments SODIUM (BEAKER) 140 meq/L 136-145 (test code = 381) POTASSIUM (BEAKER) 3.8 meq/L 3.5-5.1 (test code = 379) CHLORIDE (BEAKER) 103 meq/L 98-107 (test code = 382) CO2 (BEAKER) (test 26 meq/L 22-29 code = 355) BLOOD UREA NITROGEN 8 mg/dL 7-21 (BEAKER) (test code = 354) CREATININE (BEAKER) 3.86 mg/dL 0.57-1.25 H (test code = 358) GLUCOSE RANDOM 87 mg/dL 70-105 (BEAKER) (test code = 652) CALCIUM (BEAKER) 9.6 mg/dL 8.4-10.2 (test code = 697) EGFR (BEAKER) (test 15 mL/min/1.73 ESTIMA RADHA GFR IS code = 1092) sq m NOT ACCURATE CREATININE CLEARANCE IN PREDICTING GLOMERULAR FILTRATION RATE . ESTIMATED GFR I S 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 Binding Printer ID - [id number] (HEMOGRAM ONLY)2021-10-28 06:33:33 Test Item Value Reference Range Interpretation Comments WHITE BLOOD CELL COUNT (BEAKER) 8.0 K/ L 3.5-10.5 (test code = 775) RED BLOOD CELL COUNT (BEAKER) 3.36 M/ L 4.63-6.08 L (test code = 761) HEMOGLOBIN (BEAKER) (test code = 9.2 GM/DL 13.7-17.5 L 410) HEMATOCRIT (BEAKER) (test code = 33.3 % 40.1-51.0 L 411) MEAN CORPUSCULAR VOLUME (BEAKER) 99.1 fL 79.0-92.2 H (test code = 753) MEAN CORPUSCULAR HEMOGLOBIN 27.4 pg 25.7-32.2 (BEAKER) (test code = 751) MEAN CORPUSCULAR HEMOGLOBIN CONC 27.6 GM/DL 32.3-36.5 L (BEAKER) (test code = 752) RED CELL DISTRIBUTION WIDTH 18.1 % 11.6-14.4 H (BEAKER) (test code = 412) PLATELET COUNT (BEAKER) (test 151 K/CU MM 150-450 code = 756) MEAN PLATELET VOLUME (BEAKER) 10.2 fL 9.4-12.4 (test code = 754) NUCLEATED RED BLOOD CELLS 0 /100 WBC 0-0 (BEAKER) (test code = 413) CT, CHEST, WITH [id number] 15:08:00Unlisted Reason for Exam - Click Yes and Enter Reason Below->No [facility] 1945 Sex: MFINAL REPORT CT Chest with contrast; CT abdomen [...] granulomata within the lungs are consistent with pre vious granulomatous disease. Severe underlying pulmonary emphysema with [...] is best appreciated on axial delayed, image 58.There is also increased attenuation of the distal right ureter extending to the right ureterovesicular junction, suspicious for an intraluminal defect. Assessment is limited by lack of contrast excretion from the right kidney. The bladder is also decompressed, which limits evaluation. Both kidneys arelargely replaced by innumerable simple and hemorrhagic cortical [...] fibrosis. Signed: Milo Hampton MDReport Verified Date/Time: 115:08:26 CT, [id number] 15:08:00Unlisted Reason for Exam - Click Yes and Enter Reason Below->NoWill this procedure require oral contrast?->No [facility] 1945 Sex: MFINAL REPORT CT Chest with contrast; CT abdomen [...] granulomata within the lungs are consistent with pre vious granulomatous disease. Severe underlying pulmonary emphysema with [...] is best appreciated on axial delayed, image 58.There is also increased attenuation of the distal right ureter extending to the right ureterovesicular junction, suspicious for an intraluminal defect. Assessment is limited by lack of contrast excretion from the right kidney. The bladder is also decompressed, which limits evaluation. Both kidneys arelargely replaced by innumerable simple and hemorrhagic cortical [...] fibrosis. Signed: Milo Hampton MDReport Verified Date/Time: 115:08:26 TISSUE [id number] 15:37:48Surgical Pathology Report Case: [id number] Authorizing Provider: Sebas Huang, Collected: 03/28/2021 09:09 AM OrderingLocation: [facility] PERIOPERATIVE Received: 03/28/2021 10:51 AM SERVICES [...] FOR EVALUATION Signing Pathologist Direct Phone Line: [phone] signed by Ariana Victor MD on 03/29/2021 at 3:37 [id number] tumor, bladder tumorA.bladder tumor, right ureteral orifice;B. Posterior bladder wallSpecimen A is received in [...] entirely submitted into B1. MG/pl A-B Performed [facility], Department of Pathology, [address] [place] [address], F[facility]gnyt [facility], Department of Pathology, [address] [place] [address], [facility], [address] [place] [address] 46[address], [id number] 07:31:01 Test Item Value Reference Range Interpretation Comments POTASSIUM (BEAKER) (test code = 5.9 meq/L 3.6-5.5 H 379) Binding Printer ID - DSENSONOperator ID - DSENSONOperator ID - DSENSONOperator ID - DSPIETER [id number] 08:30:07 Test Item Value Reference Range Interpretation Comments CULTURE (BEAKER) (test code = 1095) No growth SARS-COV2/RT-PCR ([facility])2021-03-25 04:37:04 Test Item Value Reference Range Interpretation Comments SARS-COV2/RT-PCR (test code = Negative Negative [id number]) Negative result for this test determines that [...] the [place] SARS-CoV-2 assay.Fact Sheet for Healthcare Providers:[email or web address]/RT SARS-CoV-2 HCP Fact Sheet 51- [id number].pdfFact Sheet for Healthcare Patients:[email or web address]/юлия/RT SARS-CoV-2 Patient Fact Sheet EN [id number].pdfBACEN[facility] METABOLIC [id number] 13:21:06 Test Item Value Reference Range Interpretation [...] S 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 Binding Printer ID - DSENSONOperator ID - DSENSONOperator ID - DSENSONOperator ID - DSENSONOperator ID - DSENSONOperator ID - DSENSONOperator ID - DSENSONOperator ID - DSENSONOperator ID - DSENSONOperator ID - DSENSONOperator ID - DSENSONOperator ID - DSENSONOperator ID - DSENSONCBC W/PLT COUNT & AUTO [id number] 13:08:14 Test Item Value Reference Range Interpretation [...] PERCENT (BEAKER) (test code = 2801) URINE [id number] 11:41:14 Test Item Value Reference Range Interpretation Comments CULTURE (BEAKER) (test <10,000 col/mL skin code = 1095) ramírez RAD, CHEST, 2 [id number] 13:50:00Reason for exam:->pre opShould this be performed at the bedside?->No [facility] : 1945 Sex: MFINAL [...] MDReport Verified Date/Time: 03/11/2021 13:50:52 [facility] BASI METABOLIC [id number] 12:05:00 Test Item Value Reference Range Interpretation [...] S 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 Binding Printer ID - DSENSONOperator ID - DSENSONOperator ID - DSENSONOperator ID - DSENSONOperator ID - DSENSONOperator ID - DSENSONOperator ID - DSENSONOperator ID - DSENSONOperator ID - DSENSONOperator ID - DSENSONOperator ID - DSENSONOperator ID - DSENSONOperator ID - DSENSONPROTHROMBIN TIME/[id number] 11:43:47 Test Item Value Reference Range Interpretation Comments PROTIME (BEAKER) 11.6 seconds 9.3-12.0 Final Infor mation (test code = 759) (Auto Outp ut) INR (BEAKER) (test 1.05 See_Comment Final Inf ormation code = 370) (Auto Output) [Automated mess age] The system [employer] generated this result transmitted ref erence range: [...] (BEAKER) (test code = 2801) URINE CULTURE, [id number] 04:06:00 Test Item Value Reference Range Interpretation Comments Urine Culture, SEE NOTE CULTURE, UR INE, Routine (test ROUTINE Ak crossbow maker code = 2092730) Number: [id number] Test Status: Final Specimen Source: URINE Specimen [...] ANSWER AT DR OFFICE TO VERIFY TEST 679577 [facility]/RFLX CULTURE, [id number] 22:06:00 Test Item Value Reference Range Interpretation Comments Specific [place], UA 1.014 1.005-1.03 (test code = 2965-2) pH, UA (test code = >=9.0 5.0-7.5 A 5803-2) Color, UA (test code [place] Yellow = 9796-4) Appearance (test code Cloudy Clear A = 1944798) WBC Esterase (test 1+ Negative A code = 5031239) Protein, UA (test 3+ Negative/T A code = 34229-8) Glucose, Urine (test Trace Negative A code = 81684-7) Ketones, UA (test Negative Negative code = 2514-8) Blood, UA (test code 3+ Negative A = 93558-5) Bilirubin, UA (test Negative Negative code = 5770-3) Urobilinogen,Semi-Qn 0.2 mg/dL 0.2-1 (test code = 7180078) Nitrite, UA (test Negative Negative code = 18031-5) Microscopic See below: Microscopic was Examination (test indicated and was code = 7053242) performed. Urinalysis Reflex Comment This speci men has (test code = 3627528) reflex ed to a Urine Culture. ТАТЬЯНА (test code = ТАТЬЯНА) Performed at: [address] [place] [address] [id number] Director: Calderon Silver MD, Phone: [phone] Lab Interpretation Abnormal (test code = 14173-5) [facility] CenterMICROSCOPIC [id number] 22:06:00 Test Item Value Reference Range Interpretation [...] ТАТЬЯНА (test code = ТАТЬЯНА) Performed at: [facility] [id number] Director: Calderon Silver MD, Phone: [phone] Lab Interpretation Abnormal (test code = 48841-1) [facility] CenterPrepare Leuko-Red [id number] 23:54:00 Test Item Value Reference Range Interpretation Comments CROSSMATCH (test code = 2264) COMPATIBLE Unit ABO (test code = O Pos 6292032) UNIT NUMBER (test code = [id number] 934-0) Status (test code = 6272764) TX_TIMEINCHART Blood Bank Product (test code RED BLOOD CELLS = 2263) PRODUCT CODE (test code = M2596N50 933-2) [facility] CenterTissue [id number] 10:04:00 Test Item Value Reference Range Interpretation Comments Case Report (test code Surgical Pathology = 104) Report Case: [id number] Authorizing Provider: Sebas Huang, Collected: 10/25/2020 06:39 PM Ordering Location: [address] Med/Surg Received: 10/26/2020 07:45 AM Pathologist: Ariana Victor MD Specimens: A) - Bladder Tumor, Bladder clots and right ureteral tumor B) - Bladder Biopsy, Left Wall, left bladder wall C) - Bladder Biopsy, Wall, posterior bladder wall DIAGNOSIS (test code = t1xugAVhUADak6upSFQdqK 3220) FuZzEwMzNcZnRuYmpcdWMx IHtccnRmMVxlcGljOTIwMl figvItREHvwVKyS4Tmecux QBocQB8nUU9pnDtdfPShkO DoSVDdTzEng2nef098fCYl h7lqUKOVsiawtGw2yVjbC4 6vo8M9UzwhT21tjSZkBIyg bGFpblxmczIwIEEuIEJMQU DIXSLgC6wWWTJcRE2KUQXP I3dUPIKKXOIYQyRIZHVBOD 4KTNJFUD8JR1z4MIUeubGn UCWnFVgJD7iwH1AXZNXuBE HYOMfUCAyIHIGUWLIKYR7P VWXbHA9rECRLAAGMO9QUNU 0XNA5HLPtVMO1NPckAN4Kd LH1PN2OIL5eTICWPIQNTSw FOVUxBVElPTiBUSVNTVUUg Yz9CGAPJRL4GUBUdigZsBV UpGGWWEH9TTSkLFcTOREVn OE8LJxHSUPJKRVVGGYYOYB 1JTkEgUFJPUFJJQVxwYXIg ICAgLSBOTyBERUZJTklUSV JYPU9YY1JAKSNMEBGdKKKF HZGAAHIOQzRVUnDPUT0GYR TKDqCMUcHYUPEESB5SNSRt rkvgTWFtEr8tFOSDZUSGRX IOIDGHQHzPUZqtLDMDX9ZS DNgtjDFoRORbPW4aOMEYUX pLEFlSYNIWIXCYF1VtRL2S M4CEEWGEXQQNNaDMEAnQV6 9KGdPEWYZkpbPyLDHbAF8A TN0RZ5ACSLYVCGEqIYJFVN DTXIPSDuKKAcVJIJ6OLLFV HaOHUkIPUMSNDB0UMKHgaO TpMVHnyvXEZbVWE5EPVJUK P4ZqKvzRZXEHXtFXSVjWSN FJEZ4AL0z8UINotvRvAHXd NFLRJ3BBMTqNEIwgRZMTV8 XZDTRKRRzBTDhVPSPNM8Fu HDMIZAyIJN3PEOLskNNfMZ RiIS9fIBIAH9EAIQUFWoZT Fb1XOewIVPbJYZZSAEKDHv WtqKBfTQQcycVHHh5rwZci RWZ3k0htaJAhTMSfsQFsSL AwMFxhbnNpXGRlZmxhbmcx QRNwDNC5izDbQKUoWZvuXK HzZZoyZp0psGJuvQvtHwDc QMCxy0cuoiKMawwgtOh1h1 bjDDBiVzT9bJByXHvoE5xb esHayHUoCZRoPJh9cA58YM VgqB5phZIcMDyqnbOzZiD9 ITtvLXLyGmV8FJVyiFAnJW XvC4vaKVWjIXcdPEMhDWlo iAUoCRG4lRywn6Y0tFVicQ RaoSaiDfEcNcEzNqSGa3Zj PXi1kVubG4QlYKPsMkG2eI QgUGFyYWdyYXBoIEZvbnQ7 cX26NYydwbX4tSEmf5Ncz3 5an867eP1jlNZrZID0CNXn EKJozSVaQEUeQUK7CERlpM GmQ2ddLULfUR2qcwzyHTxc SSbcWNKjlTQ3BZOmtDAeG0 AeCHGyMHlzZCOmggq0XtKe Rl3wfXWqmCmyQBovw5esn4 uieZMyIbk6YGKlQfXwIhgv UDlnu8Txj8ssNXKicj7fXV Q0bRIjaZvgc7X0dQYeCBXd uSMcKOGdLK0lbXFvYTPklA 5ucmxjXHBnYnJkcmhlYWRc pWmcnfOiDu5raLltEUG8JT kjQ4aopJ4xHoM9ZFwdW1wa qG0sQUt2DZdrQMSoxEN6hh Z7NDHtjSSvA9YxlY4aQRRe BM0ydom8k4yyHZA9VKstAZ IaCfE3tvV2ROPbwAMrYHWg tAszKGjpe190QOY9SgWsWH Ohr0XsA6RvkBdqW28lhRry V66rFKNofIddpJ5qsLvitX 9eKoYqZeVdXUpihCmkDK1f FMKdB9xntIKjTSEmKHAnS3 hcHcKsdY4xbIxoEVomhcOj ILOnCdg6AUAkjJXhWZZlTm p0BBOaQKCnD14yktxtWAI6 kX1qq7tlw5BkIGegRRB9SP Uiy15bURoeqgM6EPfnFs23 YXntVlZ5ZHyjVSX1vD== CPT Code(s) (test code w4xdnYOcEDHyaOV9CfLkAM = 3357) Lwz8pho4HuzUWoqRFiMOos wDTafaPcnn34jED7tJ46MZ 3cEPPaDnV0JGSingG1Kkt1 YHNwWBZabHRdZ239p0jrj0 ajwrUsmVB5zQrmXHBnPNMi YWluXGZzMjAgODgzMDUgeD NccGFyfQ== CLINICAL HISTORY (test r7tceYPmCIGlqLJ1IoKwRU code = 3356) Rci2hiw5UbgIIexCQnCScw uKWeepQpjw94mXE0wB75GL 4dGRHcSgX1KYYnuqS1Yda8 VEWiCSVazVJnN961m2zci4 wlnkQnqSK6hAecDBWbMSLj NNygNQNfPrXoWPOeCNA7mz bsAXLzb2ImX4ttyFNvVJC3 jFRyQMXnWLKleyCqBVA1mL 9eKUCpvt4= SPECIMEN SOURCE (test u2dmlMMiZWXytZC1QhBwDM code = 3377) Qdr2hil3YiaHXmpOWeMNti pVGyudNjse93dBA9sV44BG 9bQRCbQbK6JSDmizI7Hdi8 LJAcSSYglUYgL424c4gpk7 dfisLecUQ8nHrkKPZsWMRt MQleYYFuLdWsNT0uIhfyIJ FsqcErwS33caIlkgJrvftr aHQgdXJldGVyYWwgdHVtb3 P0WTRxLLehDpGdGataERFk rvF8KAdhFfJJMiTMn0P1JU Lme9SwSwcpMDQvcmH5SHuc XHBhcn0= GROSS DESCRIPTION (test p4sjdHSvNWQetZF4MxCgAA code = 3366) Fpm1ysm7RltWNdvQAeYJwz lMPxwuVpon16pRC9hG90OB 4wGUHgLbO3HWKgtaV2Ohu7 DDFwNLAszKIzP841e8tth1 umqqIdkZW5bIqfYCIaGVUr WHfnIHRrRpIuE7DbC0beDY 4gQSBpcyByZWNlaXZlZCBp ggQvsRgirDx9HEZnzvUxuP LaQPstXUJ8rIOdXZHzZZTb CHPlVP86J2KfurYyRAudlH VkaWNhbCByZWNvcmQgbnVt CjVdSAIvUFOyERWvH74wbE VkIGFzICJibGFkZGVyIHR1 pI0gZoWckxBcJ86lq2xmfH Doz2VztYQfwCtsoQMmueBj GSQvu8ijQBTzc6K8DGDtrf HecMNwyBAvsQDmz9XvuP0a RTbuPGW0OAZgZEN9LQGaCO TveI3iCYkuWIGlHBPliTCx UMubMLWoeIUqu9NcTDUhCP TxjQveWA63wAxji3YwRqje x6JjL5geeV1oJn7bJWhmvF opj6HmTKCmHMgtBN25ozSk cmUgaWRlbnRpZmllZCBtZW DumCOpcvtuJK46EKafFH5x MHlrTR84LOEoJEtgUVZpV8 TgY9O0LC4nWYhkGVNbb7W2 ZSBmcmFnbWVudHMgYXJlIG EveZeuVJh2NWZ6Ff5laSCu ZCBpbnRvIEExIHRvIEEyIG FuZCByZXByZXNlbnRhdGl2 AANbCUM0yS1lyjXkHrG9sW WuPmfeq6ShC4anfCPozzTm l2QudVg9rYKzNIttkC0yFY MuICBccGFyXHBhciBTcGVj fX3mpnJEABcoSEMgH6Xntu TdZAcmXNSzpEA2gYSzSLAz ZCBsYWJlbGVkIHdpdGggdG qxCKHidGjxskRaruRhWZ3o BRDvFOJmP4EcPODqP98aZP EaiV4zGYTvHZ5dJWUkq2ub pdF3HWXbTYYaMnNfOBGeLM KrCxulzVT8RQrsGwRuh5Qd bXVeDA8yHCCimiDhh3FcZR 1nSRAsoRjmot84LX4oiJmy e8KwUPQoHIyqEY87etX0sO C1DYgsTILhNGGejTSsqnBo ioTmzZTjaBLdjZ3gfzDhr5 2lAOPeQIL0dEWcpELdYpGg T06gvbCluNDrYU14lYPevB uwm1KcrJy3hNGmISosxD6i QjEuIFxwYXJccGFyIFNwZW NpbWVuIEMgaXMgcmVjZWl2 PRFnkX7dEbo3DECkfsLkFK 3rEWaeGyDnCTRqv6g7zOH8 rFUzvMR3qKRqiMaeYF8xiU FzXN6aFRgxFYmlnlBij9Am OR71oJFkukYcrbVxXGCiwF duYXRlZCBhcyAiYmxhZGRl oaJirQ3fw4jjk5BmnVQaKR 5hJRNrocDzt1GzSP1jIVAq uNwsuh79MY8wgOicm3EqKR OsZAckXO17ANKvRJHpeWDw JM80JUZdJMlrPEswHHJ7XB Z6KPSnlEQed2gnyl4xHLgj JCNxe0X8IUEctaVcqXDxyE BpcyBlbnRpcmVseSBzdWJt dPC2ZAAvhJ78apIUIR1nEU QYDy9uyJHxoOXznI== MICROSCOPIC DESCRIPTION d1wwrLBuSKBldOG7HpQkPW (test code = 3371) Ylv1eau1RnkYHhrFZzBVar gVGbmvYcar60aNI7wP30MV 0eUOWlUaH9LXFfgrK0Epg1 CIIcRXQatMQbR891f3fnl9 tzqvKbyYH9jSdeZUFbZIWv PFlzAMHdQaIeAT6BFuXMOO Qxz1AlCIZlAMYgab2= Gross assessment was [facility] performed at ([facility], Department = 2777) of Pathology, [address] [place] [address], Technical component was [facility] performed at ([facility], = 2778) Department of Pathology, [address] [place] [address], Professional component [facility] was performed at ([facility], Department code = 2779) of Pathology, [address] [place] [address], [facility] CenterTISSUE [id number] 10:04:00Surgical Pathology Report Case: [id number] Authorizing Provider: Sebas Huang, Collected: 10/25/2020 06:39 [...] IS PRESENTMG/pl Signing Pathologist Direct Phone Line: [phone] signed by Ariana Victor MD on 10/27/2020 at 10:04 [id number] unspecified type, ureteral tumorA. Bladder clots and [...] entirely submitted into A1 to A2 and home furnishings sales representative sections of the blood clot [...] entirely submitted into C1. MG/pl A-C: Performed [facility], Department of Pathology, [address] [place] [address], [facility], Department of Pathology, [address] [place] [address], [facility], Department of Pathology, [address] [place] [address], [employer] Metabolic [id number] 05:29:00 Test Item Value Reference Range Interpretation Comments Sodium (test code = 139 meq/L 677-187 1522-2) Potassium (test code = 5.1 meq/L 3.6-5.5 2823-3) Chloride (test code = 102 meq/L 98-106 2075-0) CO2 (test code = 26 meq/L 20-29 8-9) BUN (test code = 32 mg/dL 10-26 H 3094-0) Creatinine (test code 9.44 mg/dL 0.5-1.2 H = 2160-0) Glucose (test code = 107 mg/dL 70-110 2345-7) Calcium (test code = 8.8 mg/dL 8.5-10.5 30063-0) EGFR (test code = 5 mL/min/1.73 [place] [address]-3) NOT ACCURATE CREATININE CLEARANCE IN PREDICTING GLOMERULAR FILTRATION RATE . ESTIMATED GFR I S NOT APPLICABLE FOR DIALYSIS PATIENTS. ТАТЬЯНА (test code = ТАТЬЯНА) Binding Printer ID - [id number] ID - [id number] ID - iiys53Ydutcvcf ID - dgwb56Hsdvxqqh ID - smla27Ihznaidd ID - mtzf92Mtjpreyt ID - zmta60Rcmddmub ID - psfx15Icpayjco ID - xzrm05Krhvnove ID - obog60Teevlciu ID - cags91Alellxod ID - glcs18Eikadonx ID - zdxs12 Lab Interpretation Abnormal (test code = 83954-0) [facility] METABOLIC [id number] 05:29:00 Test Item Value Reference Range Interpretation [...] S 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 Binding Printer ID - [id number] ID - [id number] ID - yufl54Wyqumirn ID - biqv60Xcizbcay ID - wubu03Uoqnecdb ID - vzxp84Fdxuwunw ID - zukt11Mxixswly ID - donk15Stgtvuzw ID - qeia60Yoohcuec ID - fwke17Pzhjjtyy ID - mmxw17Pwzwehkp ID - qeuk28Kytsonid ID - [id number] with platelet count + automated pxnj1097-04-48 05:09:00 Test Item Value Reference Range Interpretation Comments WBC (test code = 6690-2) 7.6 See_Comment [A utomated message] The system [employer] generated this result transmitted ref erence range: 4.0 - 10 .0 K/L. The refe rence range was not u sed to interpret this result as normal/abnor mal. RBC (test code = 789-8) 2.28 See_Comment L [Au tomated message] The system [employer] generated this result transmitted ref erence range: 4.20 - 5 .80 M/L. The refe rence range was not u sed to interpret this result as normal/abnor mal. MCHC (test code = 786-4) 31.3 See_Comment L [A utomated message] The system [employer] generated this result transmitted ref erence range: [...] code = 284 See_Comment [Aut omated message] 157-3) The system [employer] generated this result transmitted ref erence range: 150 - 43 0 K/CU MM. The referen ce range was not u sed to interpret this result as normal/abnor mal. MPV (test code = 9.6 fL 6-11.5 63483-8) nRBC (test code = 413) 0 See_Comment [Aut omated message] The system [employer] generated this result transmitted ref erence range: [...] See_Comment [Aut omated message] 670) The system [employer] generated this result transmitted ref erence range: 1.80 - 8 .00 K/L. The refe rence range was not u sed to interpret this result as normal/abnor mal. # Lymphs (test code = 1.26 See_Comment L [Auto mated message] 414) The system [employer] generated this result transmitted ref erence range: 1.48 - 4 .50 K/L. The refe rence range was not u sed to interpret this result as normal/abnor mal. # Monos (test code = 0.84 See_Comment [Autom ated message] 415) The system [employer] generated this result transmitted ref erence range: 0.00 - 1 .30 K/L. The refe rence range was not u sed to interpret this result as normal/abnor mal. # Eos (test code = 416) 0.25 See_Comment [Au tomated message] The system [employer] generated this result transmitted ref erence range: 0.00 - 0 .50 K/L. The refe rence range was not u sed to interpret this result as normal/abnor mal. # Baso (test code = 417) 0.03 See_Comment [A utomated message] The system [employer] generated this result transmitted ref erence range: 0.00 - 0 .20 K/L. The refe rence range was not u sed to interpret this result as normal/abnor mal. Immature 1 % 0-0 H Granulocytes-Relative (test code = 2801) Lab Interpretation (test Abnormal code = 91079-4) [facility] W/PLT COUNT & AUTO [id number] 05:09:00 Test Item Value Reference Range Interpretation [...] (BEAKER) (test code = 2801) BASIC METABOLIC [id number] 05:21:00 Test Item Value Reference Range Interpretation [...] S 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 Binding Printer ID - LITOOperator ID - LITOOperator ID - LITOOperator ID - LITOOperator ID - LITOOperator ID - LITOOperator ID - LITOOperator ID - LITOOperator ID - LITOOperator ID - LITOOperator ID - LITOOperator ID - LITOOperator ID - LITOCBC W/PLT COUNT & AUTO [id number] 04:38:00 Test Item Value Reference Range Interpretation [...] (test code = 2801) Hepatitis B surface iveymubv8391-79-50 17:58:00 Test Item Value Reference Range Interpretation Comments Hep B S Ab (test code <8.0 See_Comment [Auto mated = 18626-7) message] The system which generated this result transmit radha reference range : <8.0 mIU/mL. Th e reference range was not used to interpret this result as normal/abnormal . ТАТЬЯНА (test code = ТАТЬЯНА) Binding Printer ID - DB Lab Interpretation Normal (test code = 21148-8) [facility] UYSHKHQG7826-67-02 17:58:00 Test Item Value Reference Range Interpretation Comments HEPATITIS B SURFACE ANTIBODY < mIU/mL <8.0 (BEAKER) (test code = 647) Binding Printer ID - YCWydivgbfw0779-05-41 13:35:00 Test Item Value Reference Range Interpretation Comments Potassium (test code = 4.2 meq/L 3.6-5.5 2823-3) ТАТЬЯНА (test code = ТАТЬЯНА) Binding Printer ID - [id number] ID - poxd81Aitxfocm ID - yloz04Cxxxgltv ID - zdxs12 Lab Interpretation (test Normal code = 35812-1) [facility] 13:35:00 Test Item Value Reference Range Interpretation Comments POTASSIUM (BEAKER) (test code = 4.2 meq/L 3.6-5.5 379) Binding Printer ID - npxx23Dmmehpgp ID - iabs51Oanpzkun ID - dldw38Nqedbgkl ID - zdxs12 BASIC METABOLIC [id number] 06:45:00 Test Item Value Reference Range Interpretation [...] S 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 Binding Printer ID - MITCHOperator ID - MITCHOperator ID - MITCHOperator ID - MITCHOperator ID - MITCHOperator ID - MITCHOperator ID - MITCHOperator ID - MITCHOperator ID - MITCHOperator ID - JAHVDWsdzkmzlsz4811-18-67 06:44:00 Test Item Value Reference Range Interpretation Comments Phosphorus (test code = 5.9 mg/dL 2.5-4.5 H 2777-1) ТАТЬЯНА (test code = ТАТЬЯНА) Binding Printer ID - MITCHOperator ID - MITCHOperator ID - MITCHOperator ID - STEVE Lab Interpretation Abnormal (test code = 78718-1) [facility]OO[facility]64[facility] 06:44:00 Test Item Value Reference Range Interpretation Comments PHOSPHORUS (BEAKER) (test code = 5.9 mg/dL 2.5-4.5 H 604) Binding Printer ID - MITCHOperator ID - MITCHOperator ID - MITCHOperator ID - MITCHCBC (Hemogram only)2020-10-25 06:33:00 Test Item Value Reference Range Interpretation Comments WBC (test code = 6690-2) 10.6 See_Comment H [A utomated message] The system [employer] generated this result transmitted ref erence range: 4.0 - 10 .0 K/L. The refe rence range was not u sed to interpret this result as normal/abnor mal. RBC (test code = 789-8) 2.39 See_Comment L [Au tomated message] The system [employer] generated this result transmitted ref erence range: 4.20 - 5 .80 M/L. The refe rence range was not u sed to interpret this result as normal/abnor mal. MCHC (test code = 786-4) 31.0 See_Comment L [A utomated message] The system [employer] generated this result transmitted ref erence range: [...] See_Comment [Aut omated message] 777-3) The system [employer] generated this result transmitted ref erence range: 150 - 43 0 K/CU MM. The referen ce range was not u sed to interpret this result as normal/abnor mal. MPV (test code = 9.8 fL 6-11.5 00897-4) nRBC (test code = 413) 0 See_Comment [Aut omated message] The system [employer] generated this result transmitted ref erence range: 0 - 0 /1 00 WBC. The refere nce range was not u sed to interpret this result as normal/abnor mal. Lab Interpretation (test Abnormal code = 92761-6) [facility] (HEMOGRAM ONLY)2020-10-25 06:33:00 Test Item Value [...] (test code = 413) Type and screen, sipvcdunp1578-15-69 14:42:00 Test Item Value Reference Range Interpretation Comments ABO/RH AUTOMATED (BEAKER) (test O POSITIVE code = 2260) Ab Scrn (test code = 890-4) NEGATIVE [facility] Center[facility] LEJAGHO5459-77-92 08:07:00 Test Item Value Reference Interpretation Comments [...] 13) >100,000 col/mL skin floraHepatitis B surface kxsqyce0875-36-58 15:09:00 Test Item Value Reference Range Interpretation Comments HBsAg Screen (test code Nonreactive Nonreactive = 5195-3) ТАТЬЯНА (test code = ТАТЬЯНА) Binding Printer ID - [id number] Lab Interpretation (test Normal code = 44159-2) [facility]HEPAT[facility] SUR[facility] UWSTCAL9594-34-70 15:09:00 Test Item Value Reference Range Interpretation Comments HEPATITIS B SURFACE ANTIGEN (2) Nonreactive Nonreactive (BEAKER) (test code = 2585) Binding Printer ID - [id number] METABOLIC UXSQT1127-71-42 05:03:00 Test Item Value Reference Range Interpretation [...] S 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 Binding Printer ID - [id number] ID - [id number] ID - [id number] ID - [id number] ID - [id number] ID - [id number] ID - [id number] ID - [id number] ID - [id number] ID - [id number] ID - [id number] ID - [id number] ID - [id number] W/PLT COUNT & AUTO [id number] 04:56:00 Test Item Value Reference Range Interpretation [...] Xpert (test code = Negative, See Xpress 90686-7) external report SARS-CoV-2/F yuliet/RSV test for linked [...] Fact Sh eet for Healthcare Prov iders: https://www.[email or web address]/ Documents/Xpert %20Xpress %68RBER-TqU-8-F -RSV 2-4508%20Rev.%2 0B%20HCP% 20Fact%20Sheet. pdf Fact Sheet for Healt hcare Patients: https://www.[employer]/ Documents/Xpert %20Xpress %27SJRT-LtV-2-F yuliet-RSV30 2-4507%20Rev.%2 0B%20Pati ent%20Fact%20Sh eet.pdf SARS-COV-2 SLSL Performed at:[facility] PERFORMING LAB [place] [id number] (test code = Shelton Nichols 35831-4) [place] [address] ph: [phone] [facility]2020-10-23 00:12:00 Test Item Value Reference Range Interpretation Comments SARS-COV2/RT-PCR Negative Not Detected, Performanc e of the Xpert (test code = Negative, See Xpress [id number]) external report SARS-CoV-2/F yuliet/RSV test for linked [...] sooner.Fact She et for Healthcare Prov iders: https://www.[employer]/ Documents/Xpert %20Xpress %40SRPY-PdA-9-F 2-4508%20Rev.%2 0B%20HCP% 20Fact%20Sheet. pdfFact Sheet for Healt hcare Patients: https://www.[employer]/ Documents/Xpert %20Xpress %82LCZA-UjO-6-F 2-4507%20Rev.%2 0B%20Pati ent%20Fact%20Sh eet.pdf SARS-COV-2 SLSL Performed at:[facility] PERFORMING LAB [place] [id number] (test code = Shelton Nichols 4738599) [place] [address] ph: [phone] CT, [id number] 22:34:00Unlisted Reason for Exam - Click Yes and Enter Reason Below->YesUnlisted Reason for Exam->known R ureteral tumor and r hydro, worsening R side pain, pt ESRD will dialyzeWill this procedure require oral contrast?->No [facility] : 1945 Sex: MFINAL [...] 10/22/2020 22:34:38 CT abdomen pelvis with IV [id number] 22:34:00Interface, External Ris In - 10/22/2020 10:37 [...] Rodger Page MDReport Verified Date/Time: 10/22/2020 22:34:38 [facility] W/PLT COUNT & AUTO [id number] 21:18:00 Test Item Value Reference Range Interpretation [...] = 2801) CBC W/PLT COUNT & AUTO [id number] 12:53:00 Test Item Value Reference Range Interpretation [...] (BEAKER) (test code = 2801) BASIC METABOLIC [id number] 12:49:00 Test Item Value Reference Range Interpretation [...] S 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 Binding Printer ID - [id number] ID - [id number] ID - [id number] ID - [id number] ID - [id number] ID - [id number] ID - [id number] ID - canx76Nxylrhac ID - [id number] ID - [id number] ID - [id number] ID - [id number] ID - [id number] 12:44:00 Test Item Value Reference Interpretation Comments [...] PTT (test code = 28.1 See_Comment Final 68426-4) Information (Auto Output) [Automated message] The system [...] valves. Lab Interpretation Normal (test code = 78092-8) [id number] 12:44:00 Test Item Value Reference Range Interpretation Comments PROTIME (BEAKER) (test 11.0 seconds 9.3-12.0 Final Information code = 759) (Auto Output) INR (BEAKER) (test 0.99 See_Comment Final Inf ormation code = 370) (Auto Output) [Automated mess age] The system [employer] generated this result transmit radha reference range [...] 2.5-3.5 for patients with mechanical heart valves.CT, [id number] 08:58:00Unlisted Reason for Exam - Click Yes and Enter Reason Below->NoWill this procedure require oral contrast?->No [facility] 1945 Sex: MFINAL [...] Colonic diverticulosis. Tiny hiatal hernia. Signed: Irene Juarezort Verified Date/Time: 09/22/2020 08:58:10 Reading Location: [facility] C013X Ortho Consult Reading Room CT abdomen/pelvis without & with IV [id number] 08:58:00 Interface, External Ris In - 09/22/2020 [...] Colonic diverticul osis. Tiny hiatal hernia. Signed: Ann, Irene [place]ep[place] Verified Date/Time: 09/22/2020 08:58:10 ReadingLocation: [facility] B1 C013X Ortho Consult [facility]BDOM[facility], WITHOUT [id number] 15:11:00ESRD patientUnlisted Reason for Exam - Click Yes and Enter Reason Below->NoDeos the patient have an implanted electronic device?->No [facility] 1945 Sex: MFINAL [...] Huizar Verified Date/Time: 09/02/2020 15:11:40 Reading Location: [facility] Diagnostic Imaging Reading Room - [place] [address] MR, PELVIS, WITHOUT [id number] 15:11:00ESRD patientUnlisted Reason for Exam - Click Yes and Enter Reason Below->NoDeos the patient have an implanted electronic device?->No [facility] : 1945 Sex: [...] Huizar Verified Date/Time: 09/02/2020 15:11:40 Reading Location: [facility] Diagnostic Imaging Reading Room - [place] [address] MR pelvis without IV mrynuzxv0656-30-15 15:11:00Interface, External Ris In - 09/02/2020 3:13 [...] MDReport Verified Date/Time: 09/02/2020 15:11:40 Reading Location: [facility] Diagnostic Imaging Reading Room - [place] [address] [facility] IV alhlksbd4974-08-43 15:11:00Interface, External Ris In - 09/02/2020 3:13 [...] Huizar Verified Date/Time: 09/02/2020 15:11:40 Reading Location: [facility] Diagnostic Imaging Reading Room - [place] [address] [facility] HospitalT[facility] [id number] 10:13:00Surgical Pathology Report Case: [id number] Authorizing Provider: Sebas Huang, Collected: 08/31/2020 12:53 PM OrderingLocation[facility] 05B Med/Surg Received: 08/31/2020 01:41 PM Pathologist: Ariana Victor MD Specimen: Bladder Tumor BLADDER TUMOR, TRANSURETHRAL RESECTION OF BLADDER: - 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 The specimen is entirely submitted into A1-A6. MG/ew Performed [facility], Department of Pathology, [address] [place] [address], [facility], Department of Pathology, [address] [place] [address], [facility], [facility] of [facility], [address] [place] [address], YM, FLUORO, NON-SPECIFIC, UP TO 1 [id number] 12:50:00 Reason for exam:->[facility] : 1945 Sex: MFluoroscopic unit utilized for a procedure performed in the OR. No interpretation was requested. Refer to the operative report for findings. Refer to PACS for patient radiation dose information.FL fluoro non-specific up to 1 [id number] 12:50:00 Interface, External Ris In 08/31/2020 12:55 PM CSTFluoroscopic unit utilized for a procedure performed in the OR. No interpretation was requested. Refer to the operative report for findings. Referto PACS for patient radiation dose information.[facility]2D Echo W/Doppler(CW/PW/Color)2020-08-31 08:09:56Ejection FractionSLEH ECHO HEARTLAB MKCKESSON CPACSInterface, External Ris In - 08/31/2020 8:10 AM CSTTransthoracic Echocardiography Report (TTE) Demographics Patient Name JANEL LONDON Date of Study 08/29/2020 Gender Male Visit Number [id number] Race Unknown Room Number B531 Number Date of 1945 Referring Physician Age 75 year(s) Extraction Supervisor Judi Mclaughlin [facility] Interpreting Humberto Reed Jr. MD Physician [...] Gradient: 3.29 mmHg Estimated PASP: 42.39 mmHgCH[facility] OaklandComprehensive metabolic [id number] 06:56:00 Test Item Value Reference Range Interpretation Comments Protein, Total (test 6.7 See_Comment [Autom ated code = 2885-2) message] The system which generated this result transmitted reference range : 6.0 - 8.5 gm/dL . The reference range was not used to interpr et this result as normal/abnormal . Albumin (test code = 3.2 g/dL 3.5-5 L 50543-1) Alkaline Phosphatase 57 U/L 30-115 (test code = 6768-6) Total Bilirubin 0.4 mg/dL 0.1-1.2 (test code = 1975-2) Sodium (test code = 138 meq/L 378-232 6978-2) Potassium (test code 3.9 meq/L 3.6-5.5 = 2823-3) Chloride (test code 99 meq/L 98-106 = 2075-0) CO2 (test code = 26 meq/L 20-29 2028-9) BUN (test code = 30 mg/dL 10-26 H 3094-0) Creatinine (test 7.85 mg/dL 0.5-1.2 H code = 2160-0) Glucose (test code = 94 mg/dL 70-110 2345-7) Calcium (test code = 8.7 mg/dL 8.5-10.5 57303-1) AST (test code = 49 U/L 5-40 H 1920-8) ALT (test code = 55 U/L 5-50 H 1742-6) EGFR (test code = 7 mL/min/1.73 [place] [address]-6) m NOT ACCURATE CREATININE CLEARANCE IN PREDICTING GLOMERULAR FILTRATION RATE . ESTIMATED GFR I S NOT APPLICABLE FOR DIALYSIS PATIENTS. ТАТЬЯНА (test code = Binding Printer ID - ТАТЬЯНА) LITOOperator ID - LITOOperator ID - LITOOperator ID - LITOOperator ID - LITOOperator ID - LITOOperator ID - LITOOperator ID - LITOOperator ID - LITOOperator ID - LITOOperator ID - LITOOperator ID - LITOOperator ID - LITOOperator ID - LITOOperator ID - LITOOperator ID - JUNITO Lab Interpretation Abnormal (test code = 09817-7) [facility] CenterCOMPREHENSIVE METABOLIC [id number] 06:56:00 Test Item Value Reference Range Interpretation [...] S 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 Binding Printer ID - LITOOperator ID - LITOOperator ID - LITOOperator ID - LITOOperator ID - LITOOperator ID - LITOOperator ID - LITOOperator ID - LITOOperator ID - LITOOperator ID - LITOOperator ID - LITOOperator ID - LITOOperator ID - LITOOperator ID - LITOOperator ID - LITOOperator ID - CBXUSayoxwrja7870-69-43 06:54:00 Test Item Value Reference Range Interpretation Comments Magnesium (test code = 2.1 mg/dL 1.5-3 12463-5) ТАТЬЯНА (test code = ТАТЬЯНА) Binding Printer ID - LITOOperator ID - LITOOperator ID - LITOOperator ID - JUNITO Lab Interpretation (test Normal code = 43548-0) [facility] CenterMAGNESIUM2021-03-09 06:54:00 Test Item Value Reference Range Interpretation Comments MAGNESIUM (BEAKER) (test code = 2.1 mg/dL 1.5-3.0 627) Binding Printer ID - LITOOperator ID - LITOOperator ID - LITOOperator ID - LITOCBC W/PLT COUNT & AUTO [id number] 06:31:00 Test Item Value Reference Range Interpretation [...] PERCENT (BEAKER) (test code = 2801) Lipid etsuw4218-75-10 06:03:00 Test Item Value Reference Range Interpretation Comments Triglycerides (test 125 mg/dL code = 2571-8) Cholesterol (test code 92 mg/dL = 2093-3) HDL (test code = 27 mg/dL 2085-9) LDL Calculated (test 40 mg/dL code = 10504-7) ТАТЬЯНА (test code = ТАТЬЯНА) Triglyceride Reference Range: Low Risk <150 Borderline 150-199 High Risk 200-499 Very High Risk >=500 Cholesterol Reference Range: Low Risk <200 Borderline 200-239 High Risk >240 HDL Cholesterol Reference Range: Low Risk >=60 High Risk <40 LDL Cholesterol Reference Range: Optimal <100 Near Optimal 100-129 Borderline 130-159 High 160-189 Very High >=190 Binding Printer ID - SDVM41Yufeemgm ID - QGVS97Kktjbvyg ID - WTOX59Ohtspgri ID - QXOL41Jnzddgma ID - QXAV52Daaavrwp ID - [id number] [facility] CenterLIPID [id number] 06:03:00 Test Item Value Reference Range Interpretation [...] Borderline 130-159 High 160-189 Very High >=190 Binding Printer ID - BUYD02Ygyqzjba ID - XFZY95Dfmoeduo ID - DIIK07Xqmktrno ID - BOTR85Tyuncssu ID - MOAQ60Dgojjnjm ID - FRNA60PGW W/PLT COUNT & AUTO KAXKVEJBUGYQ1806-08-97 05:38:00 Test Item Value Reference Range Interpretation [...] H PERCENT (BEAKER) (test code = 2801) [id number] 19:47:00 Test Item Value Reference Range Interpretation Comments PSA (test code = 2857-1) 4.9 ng/mL 0-4 H ТАТЬЯНА (test code = ТАТЬЯНА) Binding Printer ID - [id number] Lab Interpretation (test Abnormal code = 28401-3) [facility] CenterPSA2021-03-07 19:47:00 Test Item Value Reference Range Interpretation Comments PROSTATE SPECIFIC ANTIGEN (BEAKER) 4.9 ng/mL 0.0-4.0 H (test code = 844) Binding Printer ID - [id number] 18:56:00 Test Item Value Reference Range Interpretation Comments Ferritin (test code = 4479.50 ng/mL 22-322 H 2276-4) ТАТЬЯНА (test code = ТАТЬЯНА) Binding Printer ID - [id number] ID - [id number] Lab Interpretation (test Abnormal code = 40316-8) [facility] CenterFERRITIN2021-03-07 18:56:00 Test Item Value Reference Range Interpretation Comments FERRITIN (BEAKER) (test code = 4479.50 ng/mL 22.00-322.00 H 361) Binding Printer ID - XEKUOSG324Dsahpwdj ID - MOIUSOL172Aoiigtc P124039-00-21 18:33:00 Test Item Value Reference Range Interpretation Comments Vitamin B12 (test code = 919 pg/mL 211-911 H 2132-9) ТАТЬЯНА (test code = ТАТЬЯНА) Binding Printer ID - [id number] Lab Interpretation (test Abnormal code = 95625-1) [facility] CenterVITAMIN [id number] 18:33:00 Test Item Value Reference Range Interpretation Comments VITAMIN B12 (BEAKER) (test code = 919 pg/mL 211-911 H 774) Binding Printer ID - [id number], qpwb3022-28-18 18:25:00 Test Item Value Reference Range Interpretation Comments Free T4 (test code = 0.90 ng/dL 0.9-1.8 3024-7) ТАТЬЯНА (test code = ТАТЬЯНА) Binding Printer ID - [id number] Lab Interpretation (test Normal code = 67937-7) [facility] CenterT4, [id number] 18:25:00 Test Item Value Reference Range Interpretation Comments FREE T4 (BEAKER) (test code = 655) 0.90 ng/dL 0.90-1.80 Binding Printer ID - [id number] 18:22:00 Test Item Value Reference Range Interpretation Comments TSH (test code = 5.480 See_Comment [Automated 24893-6) message] The system which generated this result transmit radha reference range : 0.350 - 5.500 uIU/mL. The reference range was not used to interpret this result as normal/abnormal . ТАТЬЯНА (test code = ТАТЬЯНА) Binding Printer ID - [id number] Lab Interpretation Normal (test code = 13617-0) [facility] CenterTSH2021-03-07 18:22:00 Test Item Value Reference Range Interpretation Comments THYROID STIMULATING HORMONE 5.480 uIU/mL 0.350-5.500 (BEAKER) (test code = 772) Binding Printer ID - ZLCKXQG383S/S, RENAL, BRRWAPFM0073-71-25 12:08:00Please include bladderReason for exam:->hematuria, history of polycystic kidney diseaseShould this be performed at the bedside?->Yes [facility] 1945 Sex: MFINAL [...] Machado Verified Date/Time: 08/29/2020 12:08:20 Reading Location: [facility] C013 ConsultReading Room US renal sxvlpfwt2498-45-72 12:08:00Interface, External Ris In - 08/29/2020 12:19 [...] Riggins Verified Date/Time: 08/29/2020 12:08:20 Reading Location: [facility] B1 C013W Consult [facility]TIBODY 2020-08-29 11:42:00 Test Item Value Reference Range Interpretation Comments HEPATITIS B SURFACE ANTIBODY < mIU/mL <8.0 (BEAKER) (test code = 647) Binding Printer ID - FER MReticulocyte lxqit1822-01-46 11:03:00 Test Item Value Reference Range Interpretation Comments % Retic (test code = 50081-9) 1.8 % 0.4-2.9 Lab Interpretation (test code = Normal 52455-1) [facility] CenterRETICULOCYTE [id number] 11:03:00 Test Item Value Reference Range Interpretation Comments RETICULOCYTE COUNT PCT (BEAKER) (test 1.8 % 0.4-2.9 code = 575) Troponin [id number] 05:52:00 Test Item Value Reference Range Interpretation Comments Troponin I (test code = 0.22 ng/mL 0-0.15 HH [address]-8) ТАТЬЯНА (test code = ТАТЬЯНА) Troponin I [...] ZRES04 Lab Interpretation (test Abnormal code = 39976-4) [facility] CenterTROPONIN [id number] 05:52:00 Test Item Value Reference Range Interpretation [...] failure, acidosis, acute neurological disease, and persistent tachyarrhythmia.Binding Printer ID - [id number] METABOLIC BUWZV9252-55-50 05:32:00 Test Item Value Reference Range Interpretation [...] S 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 Binding Printer ID - FLNM26Ywhjmcfu ID - MXZS06Vnfemdep ID - PLFD45Vgnlaucc ID - SVVW33Elvnahpo ID - UWMG18Uzlrujaf ID - XOVZ39Ngpejkxu ID - YVNB73Rembjlwo ID - QQXE31Krmrfkpx ID - EIJG26Bccsnxhh ID - QPNX24Xplfuwas ID - UAYO57Vrcpfyco ID - PZFJ72Yuqxxvyc ID - DJXR87QG, BRAIN, WITHOUT FJQPFCTC7654-19-69 05:08:00Unlisted Reason for Exam - Click Yes and Enter Reason Below->YesUnlisted Reason for Exam->[facility] : 1945 Sex: MFINAL [...] Yessenia Perez MDR[place] Verified Date/Time: 08/29/2020 05:08:18 [facility] brain without IV gxidbskw6952-11-47 05:08:00Interface, External Ris In - 08/29/2020 5:11 [...] Yessenia Perez [place] Verified Date/Time: 08/29/2020 05:08:18 [facility] W/PLT COUNT & AUTO GDTPHBNZNOBU1240-16-23 04:50:00 Test Item Value Reference Range Interpretation [...] (BEAKER) (test code = 2801) Occult blood, [id number] 03:55:00 Test Item Value Reference Range Interpretation Comments Occult blood (test code = 2335-8) Negative Negative Lab Interpretation (test code = Normal 71303-6) [facility] CenterOCCULT BLOOD, [id number] 03:55:00 Test Item Value Reference Range Interpretation Comments FECAL OCCULT BLOOD (BEAKER) (test Negative Negative code = 618) HEPATITIS B SURFACE [id number] 17:43:00 Test Item Value Reference Range Interpretation Comments HEPATITIS B SURFACE ANTIGEN (2) Nonreactive Nonreactive (BEAKER) (test code = 2585) Binding Printer ID - SARAHINTROPONIN P4902-04-36 16:41:00 Test Item Value Reference Range Interpretation [...] failure, acidosis, acute neurological disease, and persistent tachyarrhythmia.Binding Printer ID - RAHMSONIAMirtha Q3204-28-22 09:49:00 Test Item Value Reference Range Interpretation [...] failure, acidosis, acute neurological disease, and persistent tachyarrhythmia.Binding Printer ID - RAHMABASIC METABOLIC PANEL 2020-08-28 07:01:00 [...] S 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 Binding Printer ID - [id number] ID - OTVG71Iwezcdih ID - TUKV68Wizrdfhq ID - UTSF50Wxrhybit ID - DHFK31Frcfcvrn ID - BMIF43Hmbahwca ID - EPOV87Obfxqmtp ID - NRIZ31Uuidadmf ID - DOQG78Qiitqdcp ID - MZCE11Nxxrwxjl ID - ODSM51Jvbkcbpt ID - CTZT44Xyywttdv ID - EZBC89OUQ W/PLT COUNT & AUTO XEOFQJRXVZPP6800-07-22 06:29:00 Test Item Value Reference Range Interpretation [...] PERCENT (BEAKER) (test code = 2801) Prothrombin time/TPL8712-20-09 02:15:00 Test Item Value Reference Interpretation Comments [...] valves. Lab Interpretation Abnormal (test code = 12683-8) [facility] CenterPROTHROMBIN TIME/[id number] 02:15:00 Test Item Value Reference Range Interpretation Comments PROTIME (BEAKER) 12.4 seconds 9.3-12.0 H Final Infor mation (test code = 759) (Auto Outp ut) INR (BEAKER) (test 1.12 See_Comment Final Inf ormation code = 370) (Auto Output) [Automated mess age] The system [facility] [employer] generated this result transmitted ref erence range: <=5.90. The reference range was not used to int erpret this result as normal/abnormal . RECOMMENDED COUMADIN/WARFARIN INR THERAPY RANGESSTANDARD DOSE: 2.0 - 3.0 Includes: PROPHYLAXIS forvenous thrombosis, systemic embolization; TREATMENT for venous thrombosis and/or pulmonary embolus.HIGH RISK: Target INR is 2.5-3.5 for patients with mechanical heart valves.COMPREHENSIVE METABOLIC [id number] 02:11:00 Test Item Value Reference Range Interpretation [...] S 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 Binding Printer ID - CSCH47Pcslnwou ID - IFXS82Tjmlxqzt ID - MCBC62Lkqqpmdn ID - NIKA79Fqmxbhgk ID - OUHD70Zhbwfjqg ID - QCOJ95Zzboigvf ID - FDQG10Hcdelbyn ID - XFNS59Hrgcvjga ID - IWEO33Rhhzpbel ID - UNHS69TLLTI AJYYX3498-37-37 02:10:00 Test Item Value Reference Range Interpretation [...] Borderline 130-159 High 160-189 Very High >=190 Binding Printer ID - GEUN47Twlwbrot ID - LMXK25Kyhxlyvw ID - ZRES04 Urinalysis w/Microscopic + Reflex to Ncbzblf1929-85-73 02:09:00 Test Item Value Reference Range Interpretation Comments Color, UA (test code = Red 5778-6) Clarity, UA (test code Turbid = 5767-9) Specific [place], UA 1.020 1.001-1.035 (test code = 5811-5) pH, UA (test code = 8.5 5.0-8.0 H 5803-2) Protein, UA (test code >=300 mg/dL Negative A = 61261-4) Glucose, UA (test code 100 mg/dL Negative A = 365) Ketones, UA (test code 15 mg/dL Negative A = 2514-8) Bilirubin, UA (test Positive Negative A code = 09945-8) Blood, UA (test code = Large Negative A 55078-6) Nitrite, UA (test code Positive Negative A = 5802-4) Leukocytes, UA (test Large Negative A code = 5799-2) Urobilinogen, UA (test >=8.0 0.2-1 H code = 73164-9) Bacteria, UA (test code Moderate = 27058-1) RBC, UA (test code = >100 See_Comment [Autom ated 799-7) message] The sy stem which generated this result transmitted reference range : /HPF. The refer ence range was not u sed to interpret th is result as normal/abnormal . WBC, UA (test code = 10-20 See_Comment [Autom ated 51050-0) message] The sy stem which generated this result transmitted reference range : /HPF. The refer ence range was not u sed to interpret th is result as normal/abnormal . SQUAMOUS EPITHELIAL 5-10 See_Comment [Automa radha (test code = 55489-0) messag e] The system which generated this result transmitted reference range : /HPF. The refer ence range was not u sed to interpret th is result as normal/abnormal . Specimen Source (test code = 2795) Lab Interpretation Abnormal (test code = 83302-8) [facility] CenterURINALYSIS W/ REFLEX URINE [id number] 02:09:00 Test Item Value Reference Range Interpretation [...] SOURCE(BEAKER) (test code = 2795) Hepatic function whgys9998-91-10 02:07:00 Test Item Value Reference Range Interpretation Comments Protein, Total (test 6.5 See_Comment [Autom ated code = 2885-2) message] The system which generated this result transmit radha reference range : 6.0 - 8.5 gm/dL . The reference range was not u sed to interpret th is result as normal/abnormal . Albumin (test code = 3.1 g/dL 3.5-5 L 26346-4) Total Bilirubin (test 0.5 mg/dL 0.1-1.2 code = 1975-2) Bilirubin, Direct 0.3 mg/dL 0-0.4 (test code = 1968-7) Alkaline Phosphatase 56 U/L 30-115 (test code = 6768-6) AST (test code = 35 U/L 5-40 1920-8) ALT (test code = 30 U/L 5-50 1742-6) ТАТЬЯНА (test code = ТАТЬЯНА) Binding Printer ID - FPSG04Andvzjsu ID - MGCO97Vudynlxw ID - BORT49Anrpcqdn ID - KXVS24Sqkpsyaf ID - AMLZ97Hyhspjph ID - RIDY87Vrzlrpbs ID - ZRES04 Lab Interpretation Abnormal (test code = 49369-9) [facility] CenterHEPATIC FUNCTION [id number] 02:07:00 Test Item Value Reference Range Interpretation [...] (test code = 30 U/L 5-50 347) Binding Printer ID - QBEG27Wdsawrxw ID - CBEU58Bhyzrvif ID - QYLN73Cralgxem ID - DPEW17Qqfdxpbb ID - AOPV45Ohoitxgq ID - DEMZ90Riugfttu ID - JIRJ22Zgpfnrtkge A1c 2020-08-28 01:48:00 Test Item Value Reference Range Interpretation Comments Hemoglobin A1C (test code 4.8 % 4.3-6.1 = 4548-4) ТАТЬЯНА (test code = ТАТЬЯНА) Binding Printer ID - [id number] Lab Interpretation (test Normal code = 77268-5) [facility] CenterHEMOGLOBIN [id number] 01:48:00 Test Item Value Reference Range Interpretation Comments HEMOGLOBIN A1C (BEAKER) (test code = 4.8 % 4.3-6.1 368) Binding Printer ID - OZDF82FYYVDKUNK9884-34-14 01:42:00 Test Item Value Reference Range Interpretation Comments MAGNESIUM (BEAKER) (test code = 2.2 mg/dL 1.5-3.0 627) Binding Printer ID - VQUP72Whvfbpkt ID - ZGGF05Flgzcizr ID - QPOR33Ajorixvy ID - ZRES04 MAHOWPYAOH7882-44-97 01:39:00 Test Item Value Reference Range Interpretation Comments PHOSPHORUS (BEAKER) (test code = 5.0 mg/dL 2.5-4.5 H 604) Binding Printer ID - GJEY28EFW W/PLT COUNT & AUTO ORYRLNLMOVWF8648-52-17 01:37:00 Test Item Value Reference Range Interpretation [...] H PERCENT (BEAKER) (test code = 2801) MFU-AYUWXIJ5947-16-05 00:00:00Ordered by an unspecified provider.[facility] CenterAirway2021-02-04 14:11:47Rafael Blas CRNA 07/29/2020 8:12 [...] Number of Attempts at Approach: 1[facility], uyannop7470-57-18 13:20:20 Test Item Value Reference Range Interpretation Comments Potassium, syringe See_Comment [Automat ed message] The (test code = 2007) system wh ich generated this result tra nsmitted reference range : 3.5 - 5.0 mEq/L. The refe rence range was not used to interpret this result as normal/abnormal . [facility]COVID-19 qualitative VPP3636-68-52 04:42:40 Test Item Value Reference Range Interpretation Comments Interpretation (test code = 1568614) COVID-19 qualitative RT-PCR Not-Detected Not-Detected result (test code = 59342-4) COVID-19 qualitative RT-PCR See link below for (test code = 7070) PDF Lab Report [facility] Pre/Post Rf1652-22-30 00:59:42 Test Item Value Reference Range Interpretation [...] of 08-JUL-2014 11:47,-No significant change was found- [facility] BBOR9855-72-05 11:07:00Surgical Pathology Report Case: [id number] Authorizing Provider: Bin Acevedo, Collected: 02/12/2020 09:33 AM OrderingLocation: [facility] Received: 02/12/2020 10:58 AM PERIOPERATIVE SERVICES Pathologist: Carlos Betancourt MD Specimen: Carotid, Left, LEFT CAROTID PLAQUE ARTERY, LEFT CAROTID, ENDARTERECTOMY:CALCIFIC ATHEROSCLEROTIC PLAQUE Signing Pathologist Direct Phone Line: [phone] signed by Carlos Betancourt MD on 02/17/2020 at 11:07 [id number]; [id number] carotid stenosis Carotid, LeftA. Received fresh labeled with the patient's name, medical record number and "parotid, left" is a previously incised portion of yellow plaque measuring 1.6 cm in length and 0.8 cm in diameter. Specimen is serially sectioned to reveal calcifications measuring up to 0.2 cm in thickness. Purler sections are submitted in A1, following decalcification.SATISH [place] PA ([facility])PerformedHEPATITIS B SURFACE [id number] 14:11:00 Test Item Value Reference Range Interpretation Comments HEPATITIS B SURFACE ANTIGEN (2) Nonreactive Nonreactive (BEAKER) (test code = 2585) Specimen is considered negative for HBsAg.POCT-GLUCOSE NZMYC8634-72-68 13:03:00 Test Item Value Reference Range Interpretation Comments POC-GLUCOSE METER 83 mg/dL 70-110 : TESTED A T [facility] 6720 (BEAKER) (test code = [facility], 1538) [address]: Binding Printer/Techni justus ID = [id number] for JOIE ROE WOJO-PZJ1970-99-21 06:30:00 Test Item Value Reference Range Interpretation Comments ACTIVATED CLOTTING TIME 235 sec : 74 -137 seconds, (BEAKER) (test code = Baseli ne: TESTED AT 441) [facility] [address] [facility], 770 30: Binding Printer/Techni justus ID = [id number] for DON FARLEY BASIC METABOLIC KUUJB1482-06-91 06:01:00 Test Item Value Reference Range Interpretation [...] S 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 Binding Printer ID - PIAYA LPOCT-GLUCOSE EEKUD4035-32-04 06:00:00 Test Item Value Reference Range Interpretation Comments POC-GLUCOSE METER 94 mg/dL 70-110 : TESTED A T [facility] 6720 (BEAKER) (test code = [place], 1538) [address]: Binding Printer/Techni justus ID = [id number] for Aren Cheatham [id number] 05:49:00 Test Item Value Reference Range Interpretation Comments MAGNESIUM (BEAKER) (test code = 1.9 mg/dL 1.6-2.6 627) Binding Printer ID - LIAM JOEICHJRR8955-86-42 05:31:00 Test Item Value Reference Range Interpretation Comments CORTISOL, TOTAL (BEAKER) (test code 8.3 ug/dL 3.7-19.4 = 2755) Binding Printer ID - EDASICBC (HEMOGRAM ONLY)2020-02-13 03:06:00 Test [...] (test code = 413) TSH/FREE T4 IF QUBODISCT2557-65-08 02:45:00 Test Item Value Reference Range Interpretation Comments THYROID STIMULATING HORMONE 4.682 uIU/mL 0.350-4.940 (BEAKER) (test code = 772) Binding Printer ID - PICITLALY LPOCT-GLUCOSE STTKO2944-79-85 00:32:00 Test Item Value Reference Range Interpretation Comments POC-GLUCOSE METER 82 mg/dL 70-110 : TESTED A T [facility] 6720 (BEAKER) (test code = RADHA ANNA DE, 1538) [address]: Binding Printer/Techni justus ID = [id number] for Aren Cheatham BLOOD GAS, [id number] 18:26:00 Test Item Value Reference Range Interpretation [...] code = 1819) 21.0 % COMPREHENSIVE METABOLIC [id number] 18:16:00 Test Item Value Reference Range Interpretation [...] S 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 Binding Printer ID - [id number] 18:14:00 Test Item Value Reference Range Interpretation Comments MAGNESIUM (BEAKER) (test code = 1.8 mg/dL 1.6-2.6 627) Binding Printer ID - NTPCALCIUM, [id number] 18:02:00 Test Item Value Reference Range Interpretation Comments CALCIUM IONIZED (BEAKER) (test 1.14 mmol/L 1.12-1.27 code = 698) PH, BLOOD (BEAKER) (test code = 7.32 1810) [id number] 18:01:00 Test Item Value Reference Range Interpretation [...] (BEAKER) (test code = 413) BLOOD GAS, [id number] 10:37:00 Test Item Value Reference Range Interpretation [...] 1819) 60.0 % HGB/HCT (H&H) - STAT [id number] 10:37:00 Test Item Value Reference Range Interpretation Comments HEMOGLOBIN (BEAKER) (test code = 9.2 g/dL 13.0-16.8 L 410) HEMATOCRIT (BEAKER) (test code = 27.0 % 40.0-50.0 L 411) GLUCOSE-STAT [id number] 10:36:00 Test Item Value Reference Range Interpretation Comments GLUCOSE RANDOM (BEAKER) (test code 104 mg/dL 70-110 = 652) SODIUM NA-STAT [id number] 10:36:00 Test Item Value Reference Range Interpretation Comments SODIUM (BEAKER) (test code = 381) 137 meq/L 136-145 POTASSIUM-STAT [id number] 10:36:00 Test Item Value Reference Range Interpretation Comments POTASSIUM (BEAKER) (test code = 4.0 meq/L 3.6-5.5 379) SARS-COV2/RT-PCR ([facility])2020-02-12 08:04:00 Test Item Value Reference Range Interpretation Comments SARS-COV2/RT-PCR (test code Negative Not Detected, Negative, = 1000506) See external report for linked test SARS-COV-[address] [facility] (test code = 5435952) Negative results do not preclude SARS-CoV-2 infection [...] of the Act.Fact Sheet for Healthcare Pro viders:https://www.[employer]/Documents/Xpert%20Xpress%20SARS%20CoV-2/Fact%20Sh eets/302-3802%28EHLZ-OIK-4%20HEALTHCARE%20PROVIDERS%20FACT%20SHEET.pdfFact Sheet for Healthcare Patients:https://www.[employer]/Documents/Xpert%20Xpress%20SARS%20CoV-2/Fact%20Sheets/302-3801%20SARS-COV -2%20PATIENT%20FACT%20SHEET.pdfPerforming Laboratory:[place] [address] [address], [place] [address]WRSCV METABOLIC [id number] 07:28:00 Test Item Value Reference Range Interpretation [...] S 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 Binding Printer ID - NTPCBC W/PLT COUNT & AUTO [id number] 07:21:00 Test Item Value Reference Range Interpretation [...] code = 2801) HGB/HCT (H&H) - STAT [id number] 06:45:00 Test Item Value Reference Range Interpretation Comments HEMOGLOBIN (BEAKER) (test code = 11.3 g/dL 13.0-16.8 L 410) HEMATOCRIT (BEAKER) (test code = 33.0 % 40.0-50.0 L 411) GLUCOSE-STAT [id number] 06:42:00 Test Item Value Reference Range Interpretation Comments GLUCOSE RANDOM (BEAKER) (test code 103 mg/dL 70-110 = 652) POTASSIUM-STAT [id number] 06:42:00 Test Item Value Reference Range Interpretation Comments POTASSIUM (BEAKER) (test code = 4.8 meq/L 3.6-5.5 379) POCT-GLUCOSE [id number] 05:51:00 Test Item Value Reference Range Interpretation Comments POC-GLUCOSE METER 108 mg/dL 70-110 : TESTED A T [facility] 6720 (BEAKER) (test code [facility], = 1538) [address]: Binding Printer/Techni justus ID = [id number] for LENO JIANG
[2021-11-16 22:51] LABS: Absolute Lymphocytes (CBC) 1.3 K/uL (0.7-4.9); Hematocrit 23.1 % (39.6-49.0); Lymphocytes % 14.3 % (15.3-44.8); MPV 7.7 fL (7.6-11.3)
[2021-11-16 23:05] LABS: Potassium 3.8 mmol/L (3.5-5.1); Troponin High Sensitivity 24.1 pg/mL (<58.9)
--- NOTE | 2021-11-17 01:36 | ER ---
Nurse's Notes [facility] Name: Robbie Kelly Age: 76 yrs Sex: Male : 1945 Arrival Date: 11/16/2021 Time: 21:57 Bed 8 Private MD: Diagnosis: Chest pain, unspecified Presentation: 11/16 22:04 Chief complaint: EMS states: pt started having crushing chest pain and abd pain sm5 tonight. pt has aneurysms that he was told are close to rupturing. pt given 2 nitro and 324mg of aspirin by ems, pt denying pain at this time. Coronavirus screen: Vaccine status: Patient reports receiving the 2nd dose of the covid vaccine. Ebola Screen: No symptoms or risks identified at this time. Initial Sepsis Screen: Does the patient meet any 2 criteria? No. Patient's initial sepsis screen is negative. Does the patient have a suspected source of infection? No. Patient's initial sepsis screen is negative. Risk Assessment: Do you want to hurt yourself or someone else? Patient reports no desire to harm self or others. Onset of symptoms was November 16, 2021. 22:04 Method Of Arrival: EMS: [facility] 22:04 Acuity: DADA 3 5 Triage Assessment: 22:10 General: Appears in no apparent distress. Behavior is cooperative. Pain: Denies pain. sm5 Neuro: No deficits noted. Cruz Agitation-Sedation Scale (RASS): 0 - Alert and Calm Level of Consciousness is awake, alert, obeys commands, Oriented to person, place, time, situation. Cardiovascular: Capillary refill < 3 seconds Patient's skin is warm and dry. Rhythm is sinus rhythm. Respiratory: Airway is patent Trachea midline Respiratory effort is even, unlabored. GI: No deficits noted. Abdomen is flat, non-distended. Historical: - Allergies: 22:11 No Known Allergies; 5 - Home Meds: 22:08 atorvastatin 40 mg Oral tab 1 tab once daily [Active]; furosemide 20 mg Oral tab 1 tab sm5 2 times per day [Active]; hydroxyzine HCl 25 mg Oral tab 1 tab 3 times per day [Active]; levothyroxine 88 mcg cap 1 cap once daily [Active]; Aileen-Shari 0.8 mg Oral tab [Active]; sevelamer carbonate 800 mg Oral tab 1 tab 3 times per day [Active]; amiodarone 400 mg Oral tab 1 tab once daily [Active]; Eliquis 2.5 mg oral tab 1 tab 2 times per day [Active]; - PMHx: 22:08 RENAL FAILURE; POLYCYSTIC KIDNEY DISEASE; Hypothyroidism; Hypertension; Dialysis; sm5 M,W,F; COPD; Bladder CA; Anemia; - PSHx: 22:08 L arm dialysis access; sm5 - Immunization history:: Client reports receiving the 2nd dose of the Covid vaccine, Flu vaccine is up to date. - Social history:: Smoking status: Patient/guardian denies using tobacco. Screenin:11 Abuse screen: Denies threats or abuse. Denies injuries from another. Nutritional sm5 screening: No deficits noted. Tuberculosis screening: No symptoms or risk factors identified. Fall Risk None identified. Assessment: 22:11 Reassessment: see triage assessment. Pain: Denies pain. Pain does not radiate. Pain 5 began tonight, resolved prior to arrival. 11/17 00:23 Reassessment: No changes from previously documented assessment. Patient and/or family sm5 updated on plan of care and expected duration. Pain level reassessed. 01:50 Reassessment: No changes from previously documented assessment. Patient and/or family sm5 updated on plan of care and expected duration. Pain level reassessed. Patient is alert, oriented x 3, equal unlabored respirations, skin warm/dry/pink. Vital Signs: 11/16 22:04 BP 128 / 69; Pulse 81; Resp 12; Temp 99.5(O); Pulse Ox 100% on 4 lpm NC; Weight 72.57 sm5 kg; Height 5 ft. 10 in. (177.80 cm); Pain 0/10; 11/17 00:23 BP 120 / 56; Pulse 82; Resp 19; Pulse Ox 97% on 3 lpm NC; sm5 01:30 BP 124 / 52; Pulse 79; Resp 17; Pulse Ox 100% on 3 lpm NC; sm5 11/16 22:04 Body Mass Index 22.96 (72.57 kg, 177.80 cm) 5 ED Course: 11/16 21:57 Patient arrived in ED. vc1 22:02 Marino Hadley MD is Attending Physician. kdr 22:04 Mega, Teresa, RN is Primary Nurse. sm5 22:08 Triage completed. sm5 22:11 Arm band placed on right wrist. EKG completed in triage. Results shown to MD. sm5 22:11 Maintain EMS IV. Dressing intact. Good blood return noted. Site clean \T\ dry. Gauge \T\ sm 5 site: 20G R AC. Oxygen administration via nasal cannula \T\ 4L/min. 22:12 Patient has correct armband on for positive identification. Bed in low position. Call 5 light in reach. Side rails up X2. Client placed on continuous cardiac and pulse oximetry monitoring. NIBP monitoring applied. 22:31 Basic Metabolic Panel Sent. sm5 22:31 CBC with Diff Sent. sm5 22:31 Troponin HS Sent. sm5 23:28 XRAY Chest (1 view) In Process Unspecified. EDMS 23:42 Chest Abd Pelvis Wo Con In Process Unspecified. EDMS 11/17 01:50 No provider procedures requiring assistance completed. IV discontinued, intact, sm5 bleeding controlled, No redness/swelling at site. Pressure dressing applied. Administered Medications: No medications were administered Medication: 11/16 22:12 VIS not applicable for this client. 5 Outcome: 11/17 01:36 Discharge ordered by . kdr 01:50 Discharged to home via wheelchair, with significant other. 5 01:50 Condition: stable 01:50 Discharge instructions given to patient, significant other, Instructed on discharge instructions, follow up and referral plans. Demonstrated understanding of instructions, follow-up care. 01:50 Patient left the ED. 5 Signatures: Dispatcher [employer] EDSC Marino Hadley MD MD kdr Mazur, Sarah, RN RN 5 Judi Laguerre RN RN vc1 Corrections: (The following items were deleted from the chart) 11/16 22:27 22:11 Maintain EMS IV. Dressing intact. Good blood return noted. Site clean \T\ dry. sm5 Gauge \T\ site: 22G RAC. sm5
--- NOTE | 2021-11-17 01:36 | EDPHYS ---
Physician Documentation [facility] Name: Robbie Kelly Age: 76 yrs Sex: Male : 1945 Arrival Date: 11/16/2021 Time: 21:57 Bed 8 Private MD: ED Physician Marino Hadley HPI: 11/17 01:07 This 76 yrs old Male presents to ER via EMS with complaints of Chest Pain > 30 y/o. kdr 01:07 The patient or guardian reports chest pain that is located primarily in the substernal kdr area, diaphragm and xiphoid area. Onset: acutely, gradually, just prior to arrival. The pain does not radiate. Associated signs and symptoms: Pertinent positives: None. The chest pain is described as aching, burning, a pressure. Duration: The patient or guardian reports a single episode. Modifying factors: The symptoms are alleviated by ASA, NTG, the symptoms are aggravated by nothing. Severity of pain: At its worst the pain was. The patient has not experienced similar symptoms in the past. The patient has not recently seen a physician. Patient reports having crushing chest pain and upper abdominal pain that started this evening. He is particularly concerned since he is has a known history of aortic and abdominal aneurysms. EMS gave the patient 2 nitro and 324 of aspirin. On arrival in the ED, he was without pain.. Historical: - Allergies: 11/16 22:11 No Known Allergies; sm5 - Home Meds: 22:08 atorvastatin 40 mg Oral tab 1 tab once daily [Active]; furosemide 20 mg Oral tab 1 tab sm5 2 times per day [Active]; hydroxyzine HCl 25 mg Oral tab 1 tab 3 times per day [Active]; levothyroxine 88 mcg cap 1 cap once daily [Active]; Aileen-Shari 0.8 mg Oral tab [Active]; sevelamer carbonate 800 mg Oral tab 1 tab 3 times per day [Active]; amiodarone 400 mg Oral tab 1 tab once daily [Active]; Eliquis 2.5 mg oral tab 1 tab 2 times per day [Active]; - PMHx: 22:08 RENAL FAILURE; POLYCYSTIC KIDNEY DISEASE; Hypothyroidism; Hypertension; Dialysis; sm5 M,W,F; COPD; Bladder CA; Anemia; - PSHx: 22:08 L arm dialysis access; sm5 - Immunization history:: Client reports receiving the 2nd dose of the Covid vaccine, Flu vaccine is up to date. - Social history:: Smoking status: Patient/guardian denies using tobacco. ROS: 11/17 01:07 Constitutional: Negative for fever, chills, and weight loss, Eyes: Negative for injury, kdr pain, redness, and discharge, Neck: Negative for injury, pain, and swelling, Respiratory: Negative for shortness of breath, cough, wheezing, and pleuritic chest pain, Abdomen/GI: Negative for abdominal pain, nausea, vomiting, diarrhea, and constipation, Back: Negative for injury and pain, : Negative for injury, bleeding, discharge, and swelling, MS/Extremity: Negative for injury and deformity, Skin: Negative for injury, rash, and discoloration, Neuro: Negative for headache, weakness, numbness, tingling, and seizure activity. Psych: Negative for depression, anxiety, suicide ideation, homicidal ideation, and hallucinations, Allergy/Immunology: Negative for hives, rash, and allergies, Endocrine: Negative for neck swelling, polydipsia, polyuria, polyphagia, and marked weight changes. Cardiovascular: Positive for chest pain, Negative for edema, orthopnea, palpitations, paroxysmal nocturnal dyspnea. Exam: 01:07 Constitutional: This is a well developed, well nourished patient who is awake, alert, kdr and in no acute distress. Head/Face: Normocephalic, atraumatic. Eyes: Pupils equal round and reactive to light, extra-ocular motions intact. Lids and lashes normal. Conjunctiva and sclera are non-icteric and not injected. Cornea within normal limits. Periorbital areas with no swelling, redness, or edema. Neck: Trachea midline, no thyromegaly or masses palpated, and no cervical lymphadenopathy. Supple, full range of motion without nuchal rigidity, or vertebral point tenderness. No Meningismus. Chest/axilla: Normal chest wall appearance and motion. Nontender with no deformity. No lesions are appreciated. Cardiovascular: Regular rate and rhythm with a normal S1 and S2. No gallops, murmurs, or rubs. Normal PMI, no JVD. No pulse deficits. Respiratory: Lungs have equal breath sounds bilaterally, clear to auscultation and percussion. No rales, rhonchi or wheezes noted. No increased work of breathing, no retractions or nasal flaring. Abdomen/GI: Soft, non-tender, with normal bowel sounds. No distension or tympany. No guarding or rebound. No evidence of tenderness throughout. Back: No spinal tenderness. No costovertebral tenderness. Full range of motion. Skin: Warm, dry with normal turgor. Normal color with no rashes, no lesions, and no evidence of cellulitis. MS/ Extremity: Pulses equal, no cyanosis. Neurovascular intact. Full, normal range of motion. Neuro: Awake and alert, GCS 15, oriented to person, place, time, and situation. Cranial nerves II-XII grossly intact. Motor strength 5/5 in all extremities. Sensory grossly intact. Cerebellar exam normal. Normal gait. Psych: Awake, alert, with orientation to person, place and time. Behavior, mood, and affect are within normal limits. Vital Signs: 11/16 22:04 BP 128 / 69; Pulse 81; Resp 12; Temp 99.5(O); Pulse Ox 100% on 4 lpm NC; Weight 72.57 sm5 kg; Height 5 ft. 10 in. (177.80 cm); Pain 0/10; 11/17 00:23 BP 120 / 56; Pulse 82; Resp 19; Pulse Ox 97% on 3 lpm NC; 5 01:30 BP 124 / 52; Pulse 79; Resp 17; Pulse Ox 100% on 3 lpm NC; 5 11/16 22:04 Body Mass Index 22.96 (72.57 kg, 177.80 cm) [facility] MDM: 01:33 Data reviewed: vital signs, nurses notes, lab test result(s), radiologic studies. kdr Counseling: I had a detailed discussion with the patient and/or guardian regarding: the historical points, exam findings, and any diagnostic results supporting the discharge/admit diagnosis, lab results, radiology results, the need for outpatient follow up. ED course: After extensive discussion with the patient and his with regard to the findings in the ED, his initial presentation, his overall medical history and medical problems, the patient and his elected to be discharged home. They indicated that should he continue to feel poorly he would [facility] otherwise, if he became acutely worse, they would present back to this ED and be transferred downtown. We reviewed all findings in detail and I responded all questions. The patient and his were happy with the care provided the plan for discharge and follow-up. 01:36 [facility]. [facility] 11/16 22:26 Order name: Basic Metabolic Panel; Complete Time: 23:11 [facility] 11/16 22:26 Order name: CBC with Diff; Complete Time: 23:11 [facility] 11/16 22:26 Order name: Troponin HS; Complete Time: 23:11 [facility] 11/16 22:26 Order name: XRAY Chest (1 view) [facility] 11/17 00:26 Order name: Troponin High Sensitivity; Complete Time: 01:19 kdr 11/16 22:26 Order name: EKG; Complete Time: :27 [facility] 11/16 22: Order name: Cardiac monitoring; Complete Time: : [facility] 11/16 22: Order name: EKG - Nurse/Tech; Complete Time: : [facility] 11/16 22:26 Order name: IV Saline Lock; Complete Time: :27 [facility] 11/16 22:26 Order name: Labs collected and sent; Complete Time: : [facility] 11/16 22:26 Order name: O2 Per Protocol; Complete Time: : [facility] 11/16 22:26 Order name: O2 Sat Monitoring; Complete Time: : [facility] 11/16 23:16 Order name: Chest Abd Pelvis Wo Con EDMS Administered Medications: No medications were administered Disposition Summary: 11/17/21 01:36 Discharge Ordered Location: Home kdr Problem: new kdr Symptoms: are resolved kdr Condition: Stable kdr Diagnosis - Chest pain, unspecified kdr Followup: kdr - With: Private Physician - When: 2 - 3 days - Reason: If symptoms return, Further diagnostic work-up, Recheck today's complaints, Continuance of care, Re-evaluation by your physician Discharge Instructions: - Discharge Summary Sheet kdr - Nonspecific Chest Pain, Adult, [id number] kdr Forms: - Medication Reconciliation Form kdr - Thank You Letter kdr Signatures: Dispatcher [employer] EDMS Marino Hadley MD MD kdr Teresa Ayoub RN RN sm5 Corrections: (The following items were deleted from the chart) 11/16 23:16 22:30 Angio Aorta For Dissection+CT.RAD.BRZ ordered. EDMS EDMS
[2021-11-17 01:56] VITALS: TEMP 99.5
[2021-11-17 01:59] VITALS: BP 124/52; O2SAT 100
--- NOTE | 2021-11-17 07:52 | EKG ---
Test Date: 2021-11-16 Test Time: 21:54:29 Helmet Binder: SIDDHARTHA MEASUREMENT RESULTS: Intervals: Rate: 81 MS: 194 QRSD: 110 QT: 380 QTc: 441 [place]: P: 73 MS: 194 QRS: 65 T: 99 INTERPRETIVE STATEMENTS: Normal sinus rhythm Nonspecific ST and T wave abnormality Abnormal ECG Compared to ECG 09/21/2021 09:26:10 Prolonged QT interval no longer present ST (T wave) deviation still present Electronically Signed On 11-17-21 07:51:51 CDT by Stephan Marino
--- NOTE | 2021-11-17 11:07 | RAD REPORT ---
EXAM DESCRIPTION: Chest Abd Pelvis Wo Con 11/16/2021 11:53 PM CDT CLINICAL HISTORY: 76 years, Male, chest pain COMPARISON: None. TECHNIQUE: Multiple transaxial tomograms of the chest, abdomen and pelvis were performed from the yuliet ng bases to the symphysis pubis 5 m slice thickness at 5 mm interval reconstruction, without administ ration of IV and oral contrast. Multiplanar reformats in the sagittal and coronal plane were generated and reviewed. This exam was performed according to our departmental dose-optimization protocol, which includes auto mated exposure control, adjustment of the mA and/or kV according to patient size and/or use of iterat mylene reconstruction technique. FINDINGS: The lack of IV and oral contrast limits evaluation of solid organs, subtle lesions cannot be excluded. CT chest: The lung parenchyma demonstrate centrilobular emphysematous changes throughout the lungs wi th minimal traction bronchiectasis. Calcified granuloma right upper lobe and posterior segment of the lower lobes. There is a new subpleural pulmonary nodularity measuring 8.3 mm on image 32/55. Small trace right pleural effusion. Minimal atelectatic changes bilateral lung bases. The heart is not enlarged. There are coronary artery calcifications. There is diffuse atherosclerotic disease of the thoracic aorta. There is a small saccular aneurysm ao rtic arch measuring approximately 2.4 x 1.1 cm on axial image 18/150, similar to prior study. There i s a descending thoracic aortic aneurysm measuring 5.[address] series #203 image 61/119. Unch anged in comparison. There is no significant mediastinal/or hilar lymphadenopathy. Axillary regions demonstrate to be duarte r. Bone windows demonstrate no significant skeletal lesions/or evidence for fractures. Abdomen and pelvis: Grossly the unopacified liver demonstrated the presence of several hypodensities corresponding to small hepatic cysts. There is a status post cholecystectomy. The pancreas, spleen and adrenal glands demonstrate to be within normal limits, no significant focal lesions were identified. There are splenic granulomas. The kidneys demonstrated presence of multiple sclerosis suspicious for polycystic kidney disease. The re is right hydronephrosis and right hydroureter unchanged. There is no evidence for nephrolithiasis. Grossly the unopacified stomach, small bowel and large bowel demonstrate to be within normal limits. There is no evidence for bowel dilatation/or free air. There is mild fecal stasis. There is diverticu losis within the sigmoid colon. The urinary bladder to be contracted. Abnormal irregular wall with soft tissue component dome right l ateral wall measuring approximately 3.2 x 2.5 cm on image 109/150. The prostate gland is unremarkable The aorta demonstrate atherosclerotic disease with a status post aortic endograft stent placement. There is no retroperitoneal lymphadenopathy. There is no evidence for ascites. The bone windows de monstrate mild bony osteopenia. Minimal degenerative changes. No evidence for compression deformities . IMPRESSION: Abnormal irregular wall with soft tissue component dome right lateral wall urinary bladd er measuring approximately 3.2 x 2.5 cm, suspicious for malignancy. Right hydronephrosis and right hydroureter unchanged in comparison with prior study. Multiple renal cysts suspicious for polycystic kidney disease. 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 Stable descending thoracic aortic aneurysm measuring 5.8 cm. 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 Small trace right pleural effusion. 8 mm solid pulmonary nodule. Recommend a non-contrast Chest CT at 6-12 months, then another non-contr ast Chest CT at 18-24 months. Status post cholecystectomy. Hepatic and renal cysts. Sigmoid diverticulosis without evidence of acute diverticulitis. Mild fecal stasis. Electronically signed by: Edinson Barreto MD 11/17/2021 12:06 AM CDT Due to temporary technical issues with the PACS/Fluency reporting system, reports are being signed by the in house radiologist without review as a courtesy to ensure prompt reporting. The interpreting r adiologist is fully responsible for the content of the report.
--- NOTE | 2021-11-17 11:09 | RAD REPORT ---
EXAM DESCRIPTION: Chest Single View CLINICAL HISTORY: 6 years Male, CHEST PAIN COMPARISON: Chest radiograph dated 09/22/2021 FINDINGS: Bilateral interstitial opacities. Small right pleural effusion. No pneumothorax. Cardiomediastinal silhouette is enlarged. No acute osseous abnormality. Left upper extremity vascular stenting. IMPRESSION: Positive for pulmonary opacities. Differential diagnosis includes viral infections an in terstitial edema. Electronically signed by: Tomas Jiménez DO 11/16/2021 11:44 PM CDT Due to temporary technical issues with the PACS/Fluency reporting system, reports are being signed by the in house radiologist without review as a courtesy to ensure prompt reporting. The interpreting r adiologist is fully responsible for the content of the report.
== END 2021-11-17 01:50 | disposition home or self-care (01) ==
LOC: ER 21:46
DX: R07.9 Chest pain, unspecified (principal); R10.10 Upper abdominal pain, unspecified; I12.0 Hypertensive chronic kidney disease with stage 5 chronic kidney disease or end stage renal disease; N18.6 End stage renal disease; Z99.2 Dependence on renal dialysis; Q61.3 Polycystic kidney, unspecified; E03.9 Hypothyroidism, unspecified; J44.9 Chronic obstructive pulmonary disease, unspecified; Z85.51 Personal history of malignant neoplasm of bladder; Z79.01 Long term (current) use of anticoagulants
CPT/HCPCS: 36415; 71045; 71250; 74176; 80048; 84484; 85025; 93005; 99284

== ENCOUNTER 2021-12-07 11:11 | Inpatient (IN) | payer OTHER ==
--- OUTSIDE RECORDS SUMMARY | 2021-12-07 11:19 | XMS REPORT | Continuity of Care Document ---
:1945 Author Organization [facility] t Address [address] [place] [address] Care Team Providers Name Role Phone ALYSSA FARRIS Primary Care Physician Unavailable RAMESH HUANG Attending Clinician Unavailable ALYSSA FARRIS Attending Clinician Unavailable TONNY MURRAY Attending Clinician Unavailable JAMMIE SOLORZANO Attending Clinician Unavailable ASHLYN PELAEZ Attending Clinician Unavailable Jenn DENIS Attending Clinician Unavailable GURPREET BENITES Attending Clinician Unavailable MAYCO Attending Clinician Unavailable Zofia KNOWLES Attending Clinician Unavailable JACKELYN KNOWLES Attending Clinician Unavailable AMY GORMAN Attending Clinician Unavailable SUMANTH NOLAN Attending Clinician Unavailable Ramesh Huang MD Attending Clinician Yuliet WOOD Attending Clinician Alyssa Farris MD Attending Clinician Jasvir Dixon MD Attending Clinician Deb Oliveira CRNA Attending Clinician Thee Burton CRNA Attending Clinician Vishal Monique MD Attending Clinician Waqar Villatoro MD Attending Clinician Mattie Garcia NP Attending Clinician Adenike Ocampo NP Attending Clinician MD Vishal MONIQUE Attending Clinician Unavailable Tonny Murray MD Attending Clinician REINA RAMESH Admitting Clinician Unavailable SURISIRKATHIA Admitting Clinician Unavailable TONNY MURRAY Admitting Clinician Unavailable JACKELYN KNOWLES Admitting Clinician Unavailable KAYDEN Admitting Clinician Unavailable MD Vishal MONIQUE Admitting Clinician Unavailable Payers Payer Name Policy Type Policy Number Effective Expiration Source Date Date MEDICARE A B [id number] 2010 00:00:00 [employer] [id number] 2016 00:00:00 CDC REVIEW [id number] 2020 2020 00:00:00 00:00:00 MEDICARE PART A \\T\\ B [id number] - MEDICARE [employer] \\T\\ [id number] 2016 2021 CASUALTY 00:00:00 00:00:00 MEDICAREMEDICARE PART [id number] [facility] A AND 00:00:00 [facility] [id number] [place] [id number] 2020 Methodis t CASUALTYBANKERS LIFE 00:00:00 Hosp ital AND [id number]/2020-PresentCommercia l Problems Condition Condition Condition Status Onset Resolution Last Treating Co mments Source Name Details Category Date Date Treatment Clinician Date 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 10-25 College (HCCode) (HCCode) 00:00: of 00 Medicin e Malignant Malignant Disease Active Joseph martín neoplasm neoplasm 03 Colleg e of of 00:00: of overlappin overlappin 00 Me dicin g sites of g sites of e bladder bladder (HCCode) (HCCode) 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 [place] Hematuria Hematuria Disease Active [facility] 00 [place] Altered Altered Disease Active [facility] mental mental 3-05 [facility] status status [facility] Medical 00 Center s/p L CEA s/p L CEA Disease Active CHASITY Cadena 02/11 ( 02/11 Ashley 02-11 Julio Murray) 00:00: Medica l 00 Center 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 02-26 Co llege basement basement 00:00: of membrane membrane 00 Medici n dystrophy dystrophy e Iris Iris Disease Active [facility] atrophy, atrophy, 02-26 Colleg e left, left, 00:00: of temporally temporally 00 Me dicin e Spastic Spastic Disease Active [facility] entropion entropion 01-15 [facility] of right of right 00:00: of lower lower 00 Medicin eyelid eyelid e Pulmonary Pulmonary Disease Active [facility] emphysema emphysema 01-15 [facility] (HCCode) (HCCode) 00:00: of 00 Medicin e Glare Glare Disease Active [facility] sensitivit sensitivit 01-15 Co llege y y 00:00: of 00 Medicin e Pseudophak Pseudophak Disease Active [facility] of both ia of both 01-15 Co llege eyes eyes 00:00: of 00 Medicin e Meibomian Meibomian Disease Active [facility] gland gland 01-15 College dysfunctio dysfunctio 00:00: of n (MGD) of n (MGD) of 00 Me dicin both eyes both eyes e Conjunctiv Conjunctiv Disease Active [facility] ochalasis ochalasis 01-15 [facility] of both of both 00:00: of eyes eyes 00 Medicin e Pre-transp Pre-transp Disease Active Last [facility] l[facility] lant 12-19 Chema Rueda evaluation evaluation 00:00: t & Plan: Medical for for 00 Due to Center chronic chronic his age, kidney kidney history disease disease of COPD, and AAA repair he is not an acceptabl e candidate for kidney transplan t. He understoo d and agreed with this decision. Hypertensi Hypertensi Disease Active Last [facility] on on 12-19 Assessharsh Rueda 00:00: t & Plan: Medical 00 Continue Center managemen t with nephrolog y as prescribe d. Aortic Aortic Disease Active Last [facility] aneurysm aneurysm 12-19 Ass[facility] 00:00: t & Plan: Medical 00 Repaired Center with a stent in 2012. Polycystic Polycystic Disease Active [facility] kidney kidney 12-19 [facility] 00:00: Medical 00 Center COPD COPD Disease Active Last [facility] St (chronic (chronic 12-19 Assessmen [facility] obstructiv obstructiv 00:00: t & Plan: Medical e e 00 Control Center pulmonary pulmonary d with disease) disease) inhalers. No history of smoking. Asthma Asthma Disease Active [facility] ESRD (end ESRD (end Disease Active [facility] stage stage [facility] renal renal Medical disease) disease) Center Dialysis Dialysis Disease Active [facility] S t patient patient [facility] S/P S/P Disease Active [facility] carotid carotid [facility] endarterec endarterec Ak dical trinity [facility] Acute Acute Disease Active [facility] blood loss blood loss [facility] anemia anemia [facility] Hypovolemi Hypovolemi Disease Active [facility] c shock c shock [facility] 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 [facility] Bradycardi Bradycardi Disease Active C OR [facility] a a [facility] Hypothyroi Hypothyroi Disease Active [facility] dism, dism, [facility] unspecifie unspecifie Me dical d type d type Center ESRD on ESRD on Disease Active [facility] hemodialys hemodialys [facility] Allergies, Adverse Reactions, Alerts Allergy Allergy Status Severity Reaction(s) Onset Inactive Treating Comm ents Source Name Type Date Date Clinician NO KNOWN Allergy Active [facility] ALLERG[facility] Family History Family Member Diagnosis Comments Start Date Stop Date Source Natural father Hypertension [facility] Natural father Heart disease [facility] Natural father Heart failure [facility] Natural mother Cancer [facility] Natural mother Hypertension [facility] Natural sister COPD [facility] Natural brother Cancer [facility] Natural daughter Polycystic kidney C [facility] Social History Social Habit Start Date Stop Date Quantity Comments Source History of tobacco Cigarette Smoker [facility] use of Medicine History [facility] Alcohol Frequency of Medi cine History [facility] Alcohol Std Drinks of Med icine History [facility] Alcohol Binge of Medicine Cigarettes smoked 2021-11-15 2021-11-15 [facility] current (pack per 00:00:00 00:00:00 of Medi day) - Reported Cigarette 2021-11-15 2021-11-15 [facility] pack-years 00:00:00 00:00:00 of Medicine Alcohol intake 2021-11-15 2021-11-15 Ex-drinker [facility] Col lege 00:00:00 00:00:00 (finding) of Medicine Alcohol Comment 2021-11-15 2021-11-15 socially [facility] llege 00:00:00 00:00:00 of Medicine Tobacco use and 2021-11-15 2021-11-15 Smokeless tobacco [facility] exposure 00:00:00 00:00:00 non-user of Medicine Tobacco Comment 2021-11-15 2021-11-15 stopped 5 yrs ago [facility] 00:00:00 00:00:00 of Medicine Exposure to 2021-11-04 2021-11-14 Not sure [facility] Leon de leon SARS-CoV-2 (event) 00:00:00 12:41:00 of Med icine Sex [birth year] [facility] llege 00:00:00 00:00:00 of Medicine Smoking Status Start Date Stop Date Source Ex-smoker 2021-11-15 00:00:00 2021-11-15 00:00:00 [facility] ollemarcin of Medicine Medications Ordered Filled Start Stop Current Ordering Indication Dosage Frequency Signature Comments Components Source Medication Medication Date Date Medication? Clinician (SIG) Name Name Apixaban Yes 2.5mg Take 2.5 [place] (ELIQUIS) 5-24 mg by [place] 2.5 MG TABS 14:01: mouth two o f 43 times Medicin daily. e predniSONE No 10mg Take 10 mg [place] (DELTASONE) 11-15- by mouth Col lege 10 MG 14:01: 00:00 daily. of tablet 32 :00 Medicin e metoprolol 2021- No 50mg Take 50 mg [place] (TOPROL-XL) 11-15- by mouth Col lege 50 MG XL 14:01: 00:00 daily. of tablet 26 :00 Medicin e levothyroxi 2021- No 75ug Take 75 [facility] ne 5-24 05-24 mcg by [place] (SYNTHROID) 14:01: 00:00 mouth of 75 MCG 20 :00 daily. Medicin tablet e diphenhydra 2021- No 25mg Take 25 mg [facility] mine 5-24 05-24 by mouth [place] (SOMINEX) 14:00: 00:00 nightly as o f 25 MG 47 :00 needed for Medicin tablet Sleep. e ipratropium Yes 3mL 3 mL by Joseph martín -albuterol -24 Inhalation Col [facility]ge (DUO-NEB) 13:59: route. of 0.5-2.5 (3) 49 Medicin MG/3ML e levothyroxi Yes 88ug Take 88 Joseph amrtín ne 5-24 mcg by [place] (SYNTHROID) 13:59: mouth. of 88 MCG 49 Medicin tablet e B Yes Take by [facility]-C-F - mouth. Colleg e olic Acid 13:59: of (JADE-MIGUEL ANGEL 49 Medicin OR) e Albuterol Yes Inhale by [facility] Sulfate -24 mouth. [place] (VENTOLIN 13:59: of HFA IN) 49 Medicin e budesonide Yes .25mg 0.25 mg by [facility] (PULMICORT) 11-15 Inhalation Co llege 0.25 MG/2ML 13:59: route. of nebulizer 49 Medicin suspension e B Yes Take by [facility] -17 mouth. Colleg e olic Acid 15:22: of (JADE-MIGUEL ANGEL 15 Medicin OR) e Albuterol Yes Inhale by [facility] Sulfate 5-17 mouth. [place] (VENTOLIN 15:22: of HFA IN) 15 Medicin e budesonide Yes .25mg 0.25 mg by [facility] (PULMICORT) 5-17 Inhalation Co llege 0.25 MG/2ML 15:22: route. of nebulizer 15 Medicin suspension e ipratropium 0 Yes 3mL 3 mL by Joseph martín -albuterol 5-17 Inhalation Col lege (DUO-NEB) 15:22: route. of 0.5-2.5 (3) 15 Medicin MG/3ML e levothyroxi 2021-0 Yes 88ug Take 88 Joseph martín ne 5-17 mcg by [place] (SYNTHROID) 15:22: mouth. of 88 MCG 15 Medicin tablet e Sevelamer 2021-0 Yes 800mg Take 800 Joseph martín Carbonate 5-05 mg by College 800 MG TABS 00:00: mouth. of 00 Medicin e Sevelamer 2021-0 Yes 800mg Take 800 Joseph martín Carbonate 5-05 mg by College 800 MG TABS 00:00: mouth. of 00 Medicin e pregabalin 2021-0 Yes [facility] (LYRICA) 25 5-04 College MG capsule 00:00: of 00 Medicin e pregabalin 2021-0 Yes [facility] (LYRICA) 25 5-04 College MG capsule 00:00: of 00 Medicin e levothyroxi 2021-0 Yes 75ug Take 75 Joseph marítn ne 4-21 mcg by [place] (SYNTHROID) 13:07: mouth of 75 MCG 10 daily. Medicin tablet e levothyroxi 2021-0 Yes 75ug Take 75 Joseph martín ne 4-21 mcg by College (SYNTHROID) 13:07: mouth of 75 MCG 10 daily. Medicin tablet e amiodarone 2021-0 Yes 200mg Take 200 [facility] (PACERONE) 1-01 mg by [place] 200 MG 00:00: mouth. of tablet 00 Medicin e atorvastati 2021-0 Yes 40mg Take 40 mg [facility] n (LIPITOR) 1-01 by mouth. Col lege 40 MG 00:00: of tablet 00 Medicin e hydrOXYzine 2021-0 Yes 25mg Take 25 mg [facility] (ATARAX) 25 1-01 by mouth. Col lege MG tablet 00:00: of 00 Medicin e amiodarone 2021-0 Yes 200mg Take 200 [facility] (PACERONE) 1-01 mg by College 200 MG 00:00: mouth. of tablet 00 Medicin e atorvastati 2021-0 Yes 40mg Take 40 mg [facility] n (LIPITOR) 1-01 by mouth. Col lege 40 MG 00:00: of tablet 00 Medicin e hydrOXYzine 2021-0 Yes 25mg Take 25 mg [facility] (ATARAX) 25 1-01 by mouth. Col lege MG tablet 00:00: of 00 Medicin e metoprolol 2020-06 Yes 50mg Take 50 mg [facility] (TOPROL-XL) 0-29 by mouth Eric ege 50 MG XL 09:14: daily. of tablet 56 Medicin e B 2020-06 Yes Take by [facility] 0-29 mouth. Colleg e olic Acid 09:14: of (JADE-MIGUEL ANGEL 56 Medicin OR) e predniSONE 2020-06 Yes 10mg Take 10 mg [facility] (DELTASONE) 0-29 by mouth Eric ege 10 MG 09:14: daily. of tablet 56 Medicin e Albuterol 2020-06 Yes Inhale by [facility] Sulfate 0-29 mouth. [place] (VENTOLIN 09:14: of HFA IN) 56 Medicin e diphenhydra 2020-06 Yes 25mg Take 25 mg [facility] mine 0-29 by mouth [place] (SOMINEX) 09:14: nightly as of 25 MG 56 needed for Medicin tablet Sleep. e metoprolol 2020-06 Yes 50mg Take 50 mg [facility] (TOPROL-XL) 0-29 by mouth Eric ege 50 MG XL 09:14: daily. of tablet 56 Medicin e predniSONE 2020-06 Yes 10mg Take 10 mg [facility] (DELTASONE) 0-29 by mouth Eric ege 10 MG 09:14: daily. of tablet 56 Medicin e diphenhydra 2020-06 Yes 25mg Take 25 mg [place] mine 0-29 by mouth [place] (SOMINEX) 09:14: nightly as of 25 MG 56 needed for Medicin tablet Sleep. e folic Yes 1{tbl} QD Take [address] [facility] acid-multiv 8-19 tablet by [facility]pin es itamins 13:26: mouth Medical (NEPHRO-VIT 08 daily. Center E) 0.8 mg Tab tablet levothyroxi Yes 88ug Take [address] ne 8-19 mcg by Mary[place] (SYNTHROID, 13:26: mouth Medic al LEVOTHROID) 08 Every Center 88 MCG morning on tablet an empty stomach. sevelamer Yes 800mg Take [address] (RENVELA) 8-19 mg by [facility] 800 mg 13:26: mouth. Medical tablet 08 Center METOPROLOL Yes 25mg Take [address] TARTRATE 8-19 by mouth. [facility] ORAL 13:26: Medical 08 Center furosemide 0 Yes 20mg Q.5D Take 20 mg C [...] by mouth [facility] tablet 13:26: daily. Medical 08 Center calcium Yes 1{tbl} Q.[id number] Take [address] [facility] carbonate 8- [id number] tablet by [facility] (Calcium 13:26: 3D mouth [...] iron Tab 13:26: needed. Med ical 08 [place] fluticasone Yes QD Inhale by [facility] -umeclidin- 8-19 mouth via [facility] vilanter 13:26: inhaler Medica l (Trelegy 08 daily. Center Ellipta) 100-62.5-25 mcg DsDv fluticasone 2020- No 2{puff} Q.5D Inhale [address] propion-burak 8- 08-19 puffs by [facility]pin [facility] meteroL 13:25: 00:00 mouth via Medi rinku 113-14 44 :00 inhaler 2 Center mcg/actuati (two) on AePB times daily. levoFLOXaci 2020- No 250mg Take [address] n 8-05 08-13 tablet [facility] (Levaquin) 00:00: 23:59 (250 mg [...] 00:00 mouth. Medica l capsule 29 :00 [place] levoFLOXaci 2020- No 250mg QD Take [address] n 4-27 04-27 mg by [facility] (LEVAQUIN) 16:01: 00:00 mouth Medic al 250 MG 25 :00 daily. Center tablet predniSONE 2020- No 20mg QD Take [address] [facility] (DELTASONE) 4-27 04-27 by mouth Crispin es 20 MG 16:00: 00:00 daily. Medical tablet 39 :00 Center metoprolol 2020- No 50mg Q.5D Take [address] tartrate 3-22 03-22 by mouth 2 Luke s (LOPRESSOR) 16:12: 00:00 (two) Medi rinku 50 MG 09 :00 times Center tablet daily. acetaminoph 2020- No 650mg Place [address] [facility] en 3-22 03-22 mg [facility] (TYLENOL) 16:11: 00:00 rectally Med [...] for 30 days. oxybutynin 2020- No 5mg Q.[id number] Take [address] (DITROPAN) 09-02 [id number] tablet (5 [facility] 5 MG tablet 00:00: 23:59 3D mg total) Medical 00 :00 by mouth 3 Center (three) times daily for 30 days. aspirin 81 2020- No 81mg QD Take [address] MG EC 09-02 tablet (81 [facility] tablet 00:00: 23:59 mg total) Medic al 00 :00 by mouth Center daily for 30 days. levoFLOXaci 2020- No 250mg QD Take [address] n 09-0216 tablet [facility] (LEVAQUIN) 00:00: 23:59 (250 mg [...] QD Take 75 mg [facility] (PLAVIX) 75 2- 02-[address] mg tablet 15:18: 00:00 daily. Hospi ta 02 :00 l metoprolol 2020- No 25mg Take 25 mg [facility] tartrate -09 24-[address] (LOPRESSOR) 12:06: 00:00 as needed. Hospita 25 mg 31 :00 TAKES ONLY l tablet WHEN BLOOD PRESSURE IS ELEVATED clopidogreL 2020- No 75mg QD Take 1 Met hodi (PLAVIX) 75 2- 03-07 tablet (75 s t mg tablet 00:00: 05:59 mg total) Ho spita 00 :00 by mouth l daily for 30 days. Please resume plavix 2 days after surgery polyethylen 2020- No 17g QD Take 17 g [facility] e glycol - 03-[address] (MIRALAX) 00:00: 05:59 daily for Ho spita 17 gram 00 :00 30 days. l packet Take while taking narcotic based pain meds. traMADoL 2020- No 10572 50mg Q6H Take 1 Metho di (Ultram) 50 2- 02-12 tablet (50 s t mg tablet 00:00: 05:59 mg total) Ho spita 00 :00 by mouth l every 6 (six) hours as needed for moderate pain for up to 7 days .acute pain. atorvastati 2020- No 40mg QD Take [address] [facility] n (LIPITOR) 02-12 08-21 tablet (40 L ukes 40 MG 00:00: 23:59 mg total) Medica l tablet 00 :00 by mouth Center nightly. clopidogreL 2020- No 75mg QD Take [address] (PLAVIX) 75 02-12 03-11 tablet (75 L ukes mg tablet 00:00: 00:00 mg total) Me dical 00 :00 by mouth Center daily. fluorometho 2017-06 Yes 1[drp] Place 1 [facility] (FML) 0-11 Drop into Eric e[facility] 0.1 % 00:00: the right of ophthalmic 00 eye 3 Medicin suspension times e daily. TID For 1 monthBID for 2 month Once a day for 1 month fluorometho 2017-06 Yes 1[drp] Place 1 [facility] (FML) 0-11 Drop into Eric ege 0.1 % 00:00: the right of ophthalmic 00 eye 3 Medicin suspension times e daily. TID For 1 monthBID for 2 month Once a day for 1 month fluorometho 2017-06- No 1[drp] Place 1 [facility] lone (FML) 0-11 05-24 Drop into Col lege 0.1 % 00:00: 00:00 the right of ophthalmic 00 :00 eye 3 Medicin suspension times e daily. TID For 1 monthBID for 2 month Once a day for 1 month moxifloxaci 2017-06 Yes 1[drp] Apply 1 [facility] n (VIGAMOX) 0-05 Drop to Colle ge 0.5 % 00:00: eye 3 of ophthalmic 00 times Medicin solution daily. e Loteprednol 2017-06 Yes 1[drp] Place 1 [facility] Etabonate 0-05 Drop into Colle ge (LOTEMAX) 00:00: the right of 0.5 % GEL 00 eye two Medicin times e daily. moxifloxaci 2017-06 Yes 1[drp] Apply 1 [facility] n (VIGAMOX) 0-05 Drop to Colle ge 0.5 % 00:00: eye 3 of ophthalmic 00 times Medicin solution daily. e Loteprednol 2017-06 Yes 1[drp] Place 1 [facility] Etabonate 0-05 Drop into Colle ge (LOTEMAX) 00:00: the right of 0.5 % GEL 00 eye two Medicin times e daily. moxifloxaci 2017-06- No 1[drp] Apply 1 [facility] n (VIGAMOX) 0-05 05-24 Drop to Eric ege 0.5 % 00:00: 00:00 eye 3 of ophthalmic 00 :00 times Medicin solution daily. e Loteprednol 2017-06- No 1[drp] Place 1 [facility] Etabonate 0-05 05-24 Drop into Eric ege (LOTEMAX) 00:00: 00:00 the right of 0.5 % GEL 00 :00 eye two Medicin times e daily. Vital Signs Vital Name Observation Time Observation Value Comments Source HEIGHT 2021-03-28 07:15:00 177.8 cm WEIGHT 2021-03-28 07:15:00 79.379 kg HEIGHT 2021-03-09 13:19:00 170.2 cm WEIGHT 2021-03-09 13:19:00 80.287 kg HEIGHT 2020-10-19 16:05:00 177.8 cm WEIGHT 2020-10-19 16:05:00 78.019 kg WEIGHT 2020-08-27 22:30:00 82.555 kg HEIGHT 2020-01-29 00:00:00 177.8 cm WEIGHT 2020-01-29 00:00:00 82 kg HEIGHT 2021-11-29 11:51:00 177.8 cm WEIGHT 2021-11-29 11:51:00 72.576 kg HEIGHT 2021-11-29 11:51:00 177.8 cm WEIGHT 2021-11-29 11:51:00 72.576 kg Systolic blood 2021-11-15 18:53:00 120 mm[Hg] [facility] of pressure Medicine Diastolic blood 2021-11-15 18:53:00 63 mm[Hg] [facility] of pressure Medicine Heart rate 2021-11-15 18:53:00 86 /min [facility] Body height 2021-11-15 18:53:00 177.8 cm [facility] Body weight 2021-11-15 18:53:00 73.392 kg [facility] BMI 2021-11-15 18:53:00 23.22 [facility]2 [facility] Systolic blood 2021-11-08 20:17:00 110 mm[Hg] [facility] Medicine Diastolic blood 2021-11-08 20:17:00 62 mm[Hg] [facility] Medicine Heart rate 2021-11-08 20:17:00 78 /min [facility] Body temperature 2021-11-08 20:17:[address] [facility] Respiratory rate 2021-11-08 20:17:00 20 /min [facility] Body height 2021-11-08 20:17:00 177.8 cm [facility] Body weight 2021-11-08 20:17:00 71.668 [facility] BMI 2021-11-08 20:17:00 22.67 kg/m2 [facility] HEIGHT 2021-10-28 06:17:00 177.8 cm WEIGHT 2021-10-28 06:17:00 72.757 kg HEIGHT 2021-10-26 11:24:00 177.8 cm WEIGHT 2021-10-26 11:24:00 72.122 kg HEIGHT 2021-10-28 06:17:00 177.8 cm WEIGHT 2021-10-28 06:17:00 72.757 kg HEIGHT 2021-10-26 11:24:00 177.8 cm WEIGHT 2021-10-26 11:24:00 72.122 kg Systolic blood 2021-10-13 18:03:00 135 mm[Hg] [facility] Medicine Diastolic blood 2021-10-13 18:03:00 65 mm[Hg] [facility] Medicine Heart rate 2021-10-13 18:03:00 85 /min [facility] Body temperature 2021-10-13 18:03:[address] [facility] Respiratory rate 2021-10-13 18:03:00 18 /min [facility] Body height 2021-10-13 18:03:00 177.8 cm [facility] Body weight 2021-10-13 18:03:00 73.71 kg [facility] BMI 2021-10-13 18:03:00 23.32 kg/m2 [facility] WEIGHT 2021-09-27 12:12:00 73.71 kg WEIGHT 2021-09-20 [...] cm Systolic blood 2021-02-10 13:25:00 131 mm[Hg] [facility] Diastolic blood 2021-02-10 13:25:00 65 mm[Hg] [facility] Heart rate 2021-02-10 13:25:00 101 /min [facility] Body temperature 2021-02-10 13:25:[address] [facility] Body weight 2021-02-10 13:25:00 78.427 kg [facility] BMI 2021-02-10 13:25:00 27.08 kg/m2 [facility] Respiratory rate 2020-10-27 17:00:00 18 /min [facility] Oxygen saturation in 2020-10-27 17:00:00 98 /min [facility] Arterial blood by Medical Ce nter Pulse oximetry Body height 2020-10-23 02:16:00 170.2 cm [facility] Systolic blood 2020-07-29 16:16:00 136 mm[Hg] [facility] pressure Diastolic blood 2020-07-29 16:16:00 65 mm[Hg] [facility] pressure Heart rate 2020-07-29 16:16:00 90 /min [facility] Body temperature 2020-07-29 16:16:00 37.17 Jailyn [facility] Oxygen saturation in 2020-07-29 16:16:00 95 /min [facility] Arterial blood by Pulse oximetry Respiratory rate 2020-07-29 16:15:00 12 /min [facility] Body height 2020-07-29 11:29:00 177.8 cm [facility] Body weight 2020-07-29 11:29:00 82.3 kg [facility] BMI 2020-07-29 11:29:00 26.03 kg/m2 [facility] Procedures Procedure Date / Time Performing Clinician Source Performed ELLE,POST-VOID 2021-11-15 00:00:00 [facility] ge of RES,US,NON-IMG Medicine CULTURE, 2021-11-09 12:23:00 [facility] ge of URINE/SENSITIVITY ON ALL Medicin e CULTURE, 2021-11-08 18:12:33 [facility] ge of URINE/SENSITIVITY ON ALL Medicin e FL INSERT,TEMP 2021-11-08 18:07:27 [facility] ge of INDWELLING BLAD Medicine CATH,SIMPLE AMB REF TO MEDICAL 2021-11-08 16:26:52 [facility] llege of ONCOLOGY [facility] ELLE,POST-VOID 2021-11-08 00:00:00 Krystian Knowles [facility] ge of RES,US,NON-IMG Medicine ELLE,POST-VOID 2021-11-08 00:00:00 [facility] of RES,US,NON-IMG Medicine BLADDER WASHINGS 2021-10-25 14:43:20 [facility] ege of CYTOLOGY X2 Medicine CYSTOSCOPY 2021-10-25 14:30:00 [facility] of Medicine POCT URINALYSIS DIPSTICK 2021-10-25 00:00:00 [facility] CULTURE, 2021-10-13 13:10:20 [facility] ge of URINE/SENSITIVITY ON ALL Medicin e CBC W/AUTO DIFF WITH 2021-10-13 13:10:20 [facility] COMPREHENSIVE METABOLIC 2021-10-13 13:10:20 [facility] PROTIME-INR 2021-10-13 13:10:20 [facility] [facility] CANCER ANTIGEN 125 2021-10-13 13:10:20 [facility] of Medicine CEA 2021-10-13 13:10:20 [facility] CANCER ANTIGEN 19-9 2021-10-13 13:10:20 [facility]OUTINE 2021-01-13 15:02:[address] [facility] URINE CULTURE, ROUTINE 2020-11-04 15:40:[address] [facility] UA/M W/RFLX CULTURE, 2020-11-04 15:40:00 Sebas Huang [facility]I ROUT [facility] MICROSCOPIC EXAMINATION 2020-11-04 15:40:00 Sebas Huang CH, I [facility] PREPARE LEUKO-REDUCED 2020-10-28 23:54:00 [facility] TRANSFUSE LEUKO-REDUCED 2020-10-27 11:34:36 Keith [facility] RED BLOOD CELLS [facility] HEMODIALYSIS INPATIENT 2020-10-27 07:47:37 Keith [facility] BASIC METABOLIC PANEL 2020-10-27 04:39:00 [facility] CBC W/PLT COUNT & AUTO 2020-10-27 04:39:00 Suzan Magdaleno [facility] BASIC METABOLIC PANEL 2020-10-26 03:41:00 [facility] CBC W/PLT COUNT & AUTO 2020-10-26 03:41:00 Suzan Magdaleno [facility] TISSUE EXAM 2020-10-25 18:39:00 Sebas Huang [facility] CYSTOSCOPY,INSERTION 2020-10-25 17:37:00 Sebas Huang [facility] URETERAL STENTS [facility] POTASSIUM 2020-10-25 13:16:00 Cuauhtemoc Dixon [facility] HEPATITIS B SURFACE 2020-10-25 09:18:00 [facility] HEMOD[facility] INPATIENT 2020-10-25 08:42:58 [facility] BASIC METABOLIC PANEL 2020-10-25 06:09:00 [facility] PHOSPHORUS 2020-10-25 06:09:00 [facility] CBC (HEMOGRAM ONLY) 2020-10-25 06:09:00 [facility] TYPE AND SCREEN, 2020-10-24 13:45:[address] Yuliet kes AUTOMATED [facility] HEPATITIS B SURFACE 2020-10-23 14:18:00 [facility]PATIENT 2020-10-23 11:41:00 [facility] BASIC METABOLIC PANEL 2020-10-23 04:31:00 [facility] Cadena [facility] () [facility] CBC W/PLT COUNT & AUTO 2020-10-23 04:31:00 Yuliet [facility] Center SARS-COV2/RT-PCR ([facility] & 2020-10-22 23:20:[address] [facility] REF LABS) [facility] CT ABDOMEN/PELVIS WITH 2020-10-22 21:31:00 [facility] IV CONTRAST [facility] CBC W/PLT COUNT & AUTO 2020-10-22 21:12:00 [facility] URINE CULTURE 2020-10-22 11:48:00 Sebas Huang CHIk [facility] BASIC METABOLIC PANEL 2020-10-22 11:48:00 Sebas Huang CHI (7) [facility] CBC W/PLT COUNT & AUTO 2020-10-22 11:48:00 Sebas Huang CHI DIFFERENTIAL [facility] PT/APTT 2020-10-22 11:48:00 Sebas Huang CHIk [facility] TYPE AND SCREEN, 2020-10-22 11:48:[address] [facility] kes AUTOMATED [facility] CT ABDOMEN/PELVIS WITH & 2020-09-21 13:12:00 Sebas Huang WITHOUT IV CONTRAST [facility] er MR ABDOMEN WITHOUT IV 2020-09-02 11:20:00 Sebas Huang CHI CONTRAST [facility] MR PELVIS WITHOUT IV 2020-09-02 11:20:00 Sebas Huang CHI t Lusandra CONTRAST [facility] TISSUE EXAM 2020-08-31 12:53:[address] [facility] [place] FLUORO NON-SPECIFIC 2020-08-31 12:50:00 Sebas Huang [facility] UP TO 1 HOUR [facility] CYSTOSCOPY,INSERTION 2020-08-31 11:42:00 [facility] URETERAL STENTS [facility] CBC W/PLT COUNT & AUTO 2020-08-31 04:50:00 Arianna Whitt [facility] COMPREHENSIVE METABOLIC 2020-08-31 04:50:00 Pedro Farris CH I [facility] MAGNESIUM 2020-08-31 04:50:[address] F[address] [facility] NM MYOCARDIAL PERFUSION 2020-08-30 16:44:00 Sebas Huang CH [facility] SPECT, PHARM(LEXISCAN) [facility] enter HEMODIALYSIS INPATIENT 2020-08-30 11:55:05 Jluis Parker [facility] CBC W/PLT COUNT & AUTO 2020-08-30 05:14:00 OnArianna salcido [facility] LIPID PANEL 2020-08-30 05:14:00 Ty, [facility] 2D ECHO W/ DOPPLER 2020-08-29 13:22:39 Ty, [facility] (CW/PW/COLOR) [facility] T4, FREE 2020-08-29 12:22:00 Ty, [facility] TSH 2020-08-29 12:22:00 Ty, [facility] FERRITIN 2020-08-29 12:22:00 Ty, [facility] VITAMIN B12 2020-08-29 12:22:00 Ty, [facility] PSA 2020-08-29 12:22:00 Ty, [facility] US RENAL COMPLETE 2020-08-29 11:15:00 Sebas Huang [facility] CT BRAIN WITHOUT IV 2020-08-29 05:02:[address] [facility] TROPONIN I 2020-08-29 04:21:00 Owen Jhaveri [facility] BASIC METABOLIC PANEL 2020-08-29 04:21:00 Arianna Whitt [facility] () [facility] CBC W/PLT COUNT & AUTO 2020-08-29 04:21:00 Arianna Whitt [facility] RETICULOCYTE COUNT 2020-08-29 04:21:00 Derek Humberto [facility] OCCULT BLOOD, STOOL 2020-08-29 02:52:00 Owen Jhaveri CH, I [facility] TROPONIN I 2020-08-28 16:08:00 Owen Jhaveri [facility] HEPATITIS B SURFACE 2020-08-28 16:06:00 [facility]FACE 2020-08-28 15:26:00 [facility]EM[facility]PATIENT 2020-08-28 11:36:37 [facility] TROPONIN I 2020-08-28 05:56:00 Owen Jhaveri [facility] CBC W/PLT COUNT & AUTO 2020-08-28 05:56:[address] [facility] BASIC METABOLIC PANEL 2020-08-28 05:56:00 [facility] () [facility] ECG 12-LEAD 2020-08-28 01:21:18 Unknown, Hl7 [facility] HEMOGLOBIN A1C 2020-08-28 01:19:00 Owen Jhaveri [facility] URINE CULTURE 2020-08-28 01:05:00 Owen Jhaveri [facility] URINALYSIS W/ REFLEX 2020-08-28 01:05:00 Owen Jhaveri [facility] URINE CULTURE [facility] CBC W/PLT COUNT & AUTO 2020-08-28 01:05:00 Emilio Owen [facility] COMPREHENSIVE METABOLIC 2020-08-28 01:05:[address] [facility] MAGNESIUM 2020-08-28 01:05:00 Saran Jhaverion [facility] PHOSPHORUS 2020-08-28 01:05:00 Emilio Owen [facility] PROTHROMBIN TIME/INR 2020-08-28 01:05:00 Owen Jhaveri [facility] HEPATIC FUNCTION PANEL 2020-08-28 01:05:00 [facility] LIP[facility] PANEL 2020-08-28 01:05:00 Saran Jhaverion [facility] REPORT OF PROCEDURE - 2020-08-27 00:00:00 Provider, Yoko [facility] ENDOSCOPY SCAN Scanning [facility] [place] AN ELECTIVE 2020-07-29 14:11:47 Rafael Bl[facility] ENDOTRACHEAL AIRWAY THROMBECTOMY, GRAFT, AV 2020-07-29 13:39:00 Jose Monique [facility] POTASSIUM, SYRINGE 2020-07-29 13:00:00 Jose Monique [facility] POTASSIUM, SYRINGE 2020-07-29 12:11:00 Jose Monique [facility] HEMOGLOBIN, SYRINGE 2020-07-29 12:11:00 Jose Monique [facility] GLUCOSE LEVEL, SYRINGE 2020-07-29 12:11:00 Jose Monique [facility] ECG PRE/POST OP 2020-07-27 21:26:54 Rose Garcia [facility] HEMOGLOBIN A1C 2020-07-27 21:19:00 Rose Garcia [facility] HEMOGLOBIN 2020-07-27 21:19:00 [facility] POTASSIUM LEVEL 2020-07-27 21:19:[address] [facility] GLUCOSE LEVEL 2020-07-27 21:19:00 [facility] QUALITATIVE 2020-07-27 20:57:00 [facility] RHYTHM STRIP - SCAN 2020-02-19 12:30:59 Provider, Default [facility] Plan of Care Planned Activity Planned Date Details Comments Source Future Scheduled 2021-11-22 CT CHEST W ABD/PELVIS Expected: [employer] [facility] 00:00:00 WO/W [code = 86501] 11/22/2021, of Medic ine Expires: 11/08/2022 Future Scheduled 2021-11-16 Pneumococcal 65+ (1 - [employer] [facility] 09:20:36 PCV) [code = of Medicine Pneumococcal 65+ (1 - PCV)] Future Scheduled 2021-11-16 TETANUS SHOT (ADULT) [employer] [facility] 09:20:36 [code = TETANUS SHOT of Medi cine (ADULT)] Future Scheduled 2021-11-16 Hepatitis C screening [employer] [facility] 09:20:36 (procedure) [code = of Medic ine 694188177] Future Scheduled 2021-11-16 ZOSTER VACCINE (1 of [employer] [facility] 09:20:36 2) [code = ZOSTER of Medicin e VACCINE (1 of 2)] Future Scheduled 2021-11-16 Screening for [employer] [facility] 09:20:36 malignant neoplasm of of Med icine lung (procedure) [code = 345537514] Future Scheduled 2021-11-16 MEDICARE AWV [facility] [employer] Test 09:20:36 (Initial) [code = of Medicin e MEDICARE AWV (Initial)] Future Scheduled 2021-11-16 COVID-19 Vaccine (3 - [employer] [facility] 09:20:36 Booster for Pfizer of Medici ne series) [code = COVID-19 Vaccine (3 - Booster for Pfizer series)] Future Scheduled 2021-11-16 FLU VACCINE > 6 [facility] [employer] Test 09:20:36 MONTHS [code = FLU of Medici ne VACCINE > 6 MONTHS] Future Scheduled 2021-11-16 FALL SCREEN [code = [employer] [facility] 09:20:36 FALL SCREEN] of Medicine Future Scheduled 2021-11-08 Pneumococcal 65+ (1 [employer] [facility] 18:18:33 of 4 - PCV13) [code = of Med icine Pneumococcal 65+ (1 of 4 - PCV13)] Future Scheduled 2021-11-08 TETANUS SHOT (ADULT) [employer] [facility] 18:18:33 [code = TETANUS SHOT of Medi cine (ADULT)] Future Scheduled 2021-11-08 Hepatitis C screening [employer] [facility] 18:18:33 (procedure) [code = of Medic ine 090123741] Future Scheduled 2021-11-08 ZOSTER VACCINE (1 of [employer] [facility] 18:18:33 2) [code = ZOSTER of Medicin e VACCINE (1 of 2)] Future Scheduled 2021-11-08 MEDICARE AWV [facility] [employer] Test 18:18:33 (Initial) [code = of Medicin e MEDICARE AWV (Initial)] Future Scheduled 2021-11-08 COVID-19 Vaccine (3 - [employer] [facility] 18:18:33 Booster for Pfizer of Medici ne series) [code = COVID-19 Vaccine (3 - Booster for Pfizer series)] Future Scheduled 2021-11-08 FLU VACCINE > 6 [facility] [employer] Test 18:18:33 MONTHS [code = FLU of Medici ne VACCINE > 6 MONTHS] Future Scheduled 2021-11-08 FALL SCREEN [code = [employer] [facility] 18:18:33 FALL SCREEN] of Medicine Future Scheduled 2021-11-08 CULTURE, Ordered: [facility] [employer] Test 18:12:34 URINE/SENSITIVITY ON 11/08/2021 of Medi cine ALL [code = 72167-9] Future Scheduled 2021-11-08 FL INSERT,TEMP Ordered: [facility] [employer] Test 18:07:27 IND[address] BLAD 11/08/2021 of Medicine CATH,SIMPLE [code = 33780] Future Scheduled 2021-10-13 CULTURE, Ordered: [facility] [employer] Test 13:10:20 URINE/SENSITIVITY ON 10/13/2021 of Medi cine ALL [code = 09717-3] Future Scheduled 2021-10-13 CBC W/AUTO DIFF WITH Ordered: [facility] [employer] Test 13:10:20 PLATELETS [code = 10/13/2021 of Medicin e 23942-6] Future Scheduled 2021-10-13 COMPREHENSIVE Ordered: [facility] [employer] Test 13:10:20 METABOLIC PANEL [code 10/13/2021 of Med icine = 45778-1] Future Scheduled 2021-10-13 PROTIME-INR [code = Ordered: [employer] [facility] 13:10:20 5902-2] 10/13/2021 of Medicine Future Scheduled 2021-10-13 CANCER ANTIGEN 125 Ordered: [employer] [facility] 13:10:20 [code = 96055-8] 10/13/2021 of Medicine Future Scheduled 2021-10-13 CEA [code = 2039-6] Ordered: [employer] [facility] 13:10:20 10/13/2021 of Medicine Future Scheduled 2021-10-13 CANCER ANTIGEN 19-9 Ordered: [employer] [facility] 13:10:20 [code = 32503-4] 10/13/2021 of Medicine Future Scheduled 2021-10-13 Pneumococcal 65+ (1 [employer] [facility] 13:06:26 of 4 - PCV13) [code = of Med icine Pneumococcal 65+ (1 of 4 - PCV13)] Future Scheduled 2021-10-13 TETANUS SHOT (ADULT) [employer] [facility] 13:06:26 [code = TETANUS SHOT of Medi cine (ADULT)] Future Scheduled 2021-10-13 Hepatitis C screening [employer] [facility] 13:06:26 (procedure) [code = of Medic ine 161571179] Future Scheduled 2021-10-13 ZOSTER VACCINE (1 of [employer] [facility] 13:06:26 2) [code = ZOSTER of Medicin e VACCINE (1 of 2)] Future Scheduled 2021-10-13 FALL SCREEN [code = [employer] [facility] 13:06:26 FALL SCREEN] of Medicine Future Scheduled 2021-10-13 MEDICARE AWV [facility] [employer] Test 13:06:26 (Initial) [code = of Medicin e MEDICARE AWV (Initial)] Future Scheduled 2021-10-13 COVID-19 Vaccine (3 - [employer] [facility] 13:06:26 Booster for Pfizer of Medici ne series) [code = COVID-19 Vaccine (3 - Booster for Pfizer series)] Future Scheduled 2021-10-13 FLU VACCINE > 6 [facility] [employer] Test 13:06:26 MONTHS [code = FLU of Medici ne VACCINE > 6 MONTHS] Future Scheduled 2021-08-[address] [facility] Test 00:00:00 malignant neoplasm of Medica l Center colon (procedure) [code = 279421610] Future Scheduled 2021-02-[address] [facility] Test 00:00:00 (#1) [code = Medical Center INFLUENZA VACCINE (#1)] Future Scheduled 2011-05-[address] [facility] 00:00:00 WELLNESS (YEAR 2 or Medical Center FIRST YEAR if no IPPE) [code = MEDICARE ANNUAL WELLNESS (YEAR 2 or FIRST YEAR if no IPPE)] Future Scheduled 2010 PNEUMOCOCCAL 65+ YRS [facility] Test 00:00:00 (1 of 1 - Medical Center [id number] PCV13) [code = PNEUMOCOCCAL 65+ YRS (1 of 1 - [id number] PCV13)] Future Scheduled 1995 SHINGLES VACCINES ([address] [facility] Test 00:00:00 of 2) [code = Medical Center SHINGLES VACCINES (1 of 2)] Future Scheduled 1964 DTAP/TDAP/TD VACCINES [facility] 00:00:00 (1 - Tdap) [code = Medical C enter DTAP/TDAP/TD VACCINES (1 - Tdap)] Future Scheduled 1963 HEPATITIS C [facility]CRE[facility]ING [facility] 00:00:00 [code = HEPATITIS C Medical Center SCREENING] Future Scheduled Hepatitis C screening [facility] (procedure) [code = Hospital [id number]] Future Scheduled COLONOSCOPY SCREENING [facility] [code = COLONOSCOPY Hospital SCREENING] Future Scheduled SHINGLES VACCINES [facility] Test (#1) [code = SHINGLES Hospit al VACCINES (#1)] Future Scheduled COVID-19 VACCINE (2 - [facility] Pfizer 2-dose series) Hospit al [code = COVID-19 VACCINE (2 - Pfizer 2-dose series)] Future Scheduled INFLUENZA VACCINE [facility] Test [code = INFLUENZA Hospital VACCINE] Encounters Start End Encounter Admission Attending Care Care Encounter Source Date/Time Date/Time Type Type Clinicians Facility Department ID 2021-04-03 Out[facility] [id number] [facility] 11:01:56 SEBAS 2021-04-02 Outpatient [facility] Surgery [id number] [facility] 16:32:40 SEBAS 2021-04-02 Inpatient PEDRO RAMOS [facility] [id number] [facility] 06:41:40 Med 2021-03-30 Inpatient TREVOR [facility] Surgery [id number] [facility] 02:21:06 BIN 2021-12-13 2021-12-13 Out[facility] [id number] [facility] 00:00:00 00:00:00 DORA 2021-11-29 2021-11-29 Emergency ER ALEKSANDRA PELAEZ [facility] Emergency [id number] [facility] 11:55:00 21:51:00 2021-11-15 2021-11-15 Office ELI [facility]ENITES [facility] [id number] [facility] 13:47:45 15:31:33 Visit Avril 350.1.13.21 Co llege 0.2.7.2.686 of [id number] Medi rylee 504 e 2021-11-15 2021-11-15 Outpatient LACY MAO [facility] [id number] [facility] 09:18:30 10:14:07 [place] [facility]in e 2021-11-10 2021-11-10 Outpatient [facility] [id number] [facility] 11:41:30 11:41:30 Colleg e of Medicin e 2021-11-08 2021-11-10 Office LACY KNOWLES [id number] [facility] 14:38:08 09:47:33 Visit [facility] [employer] 350.1.13.21 College Y 0.2.7.2.686 of [id number] Medi rylee 300 e 2021-10-28 2021-10-29 Outpatient ADELINA KNOWLES [facility] Surgery [id number] [facility] 05:35:00 17:09:00 MACDOEL 2021-10-28 2021-10-28 Outpatient [facility] [id number] [facility] 00:00:00 23:59:00 Colleg e of Medicin e 2021-10-26 2021-10-26 Outpatient [facility]LINA [facility] [id number] [facility] 11:32:11 23:59:00 2021-10-25 2021-10-25 Outpatient LACY KNOWLES [facility] [id number] [facility] 13:48:08 16:40:17 KRYSTIAN Hardingg e of Medicin e 2021-10-20 2021-10-[address] [facility] [id number] 00:[facility] 00[facility]00 [facility] 2021-10-18 2021-10-[address] [facility] [id number] 00:[facility] 00:00:00 [facility] 2021-10-13 2021-10-13 Office LACY KNOWLES [id number] [place] [address] 10:16:19 16:18:00 Visit KRYSTIAN AMBULATOR 350.1.13.21 College Y 0.2.7.2.686 [id number] Medi rylee 300 e 2021-09-27 2021-09-[address] [facility] [id number] 11:13:43 13:24:06 [facility] 2021-09-20 2021-09-[address] [facility] [id number] 10:49:19 12:41:40 [facility] 2021-08-12 2021-08-[address] [facility] [id number] 09:00:39 10:05:10 [facility] 2021-08-11 2021-08-[address] [facility] [id number] [facility] 00:[facility]00 [facility] 2021-06-07 2021-06-07 Outpatient ADELINA GORMAN [facility] [id number] [facility] 08:31:56 08:31:56 [place] 2021-05-26 2021-05-26 Outpatient ADELINA MURRAY, [facility] [id number] [facility] 00:00:00 00:00:00 BIN 2021-04-26 2021-04-26 Outpatient EL [facility] [id number] [facility] 13:26:28 23:59:00 2021-04-26 2021-04-26 Outpatient A[facility]LINA [facility], [facility] [id number] [facility] 13:26:17 23:59:00 [place] 2021-04-21 2021-04-21 Outpatient REINA, [facility] [id number] 08:21:47 09:25:29 [facility] 2021-04-12 2021-04-12 Outpatient REINA, [facility] [id number] 00:[facility] 00:00:00 [facility] 2021-03-31 2021-03-31 Outpatient REINA, [facility] [id number] 08:49:29 10:07:05 [facility] 2021-03-24 2021-03-24 Outpatient [facility] [id number] [facility] 00:00:00 00:00:00 2021-03-24 2021-03-24 Outpatient EL [facility] [id number] [facility] 00:00:00 00:00:00 2021-03-24 2021-03-24 Outpatient REINA, [facility] [id number] 00:[facility]00 00:00:00 [facility] 2021-03-22 2021-03-22 Outpatient REINA, [facility] [id number] 00:[facility]00 00:00:00 [facility] 2021-03-17 2021-03-17 Outpatient EL [facility] [id number] [facility] 00:00:00 00:00:00 2021-03-17 2021-03-[address] [facility] [id number] 00:[facility]00 00:00:00 [facility] 2021-03-11 2021-03-11 Outpatient EL [facility] [id number] [facility] 00:00:00 00:00:00 2021-02-17 2021-02-[address] [facility] [id number] 00:[facility] 00[facility]00 [facility] 2021-02-10 2021-02-[address] [facility] [id number] 13:12:47 14:02:58 visit [facility] 2021-01-27 2021-01-[address] [facility] [id number] 00:[facility]00 00:00:00 [facility] 2021-01-27 2021-01-[address] [facility] [id number] 00:00:00 00:00:00 Only [facility] 2021-01-13 2021-01-[address] [facility] [id number] 08:59:50 10:28:11 Visit [facility] 2020-12-07 2020-12-[address] [facility] [id number] 09:28:24 11:43:01 Visit [facility] 2020-12-02 2020-12-[address] [facility] [id number] 00:00:00 00:00:00 [facility] 2020-11-04 2020-11-[address] [facility] [id number] 08:50:13 10:38:54 Visit [facility] 2020-10-28 2020-10-28 Outpatient [facility] [id number] [facility] 00:00:00 00:00:00 2020-10-22 2020-10-27 [facility] [id number] [facility] 20:30:00 17:53:00 Encounter Pedro Farrisrobbie [facility] 2020-10-25 2020-10-[address] [facility] [id number] [facility] 17:37:00 18:41:00 Event Emili Oliveira [facility] 2020-10-25 2020-10-[address] [facility] [id number] 13:30:00 14:45:00 [facility] 2020-10-23 2020-10-[address] [facility] [id number] [facility] 00:[facility]00 00:00:00 [facility] 2020-10-22 2020-10-22 [facility] [id number] 11:47:21 20:29:00 Encounter [facility] 2020-10-22 2020-10-22 Emergency ER [facility] Emergency [id number] [facility] 20:14:00 20:14:00 2020-10-22 2020-10-22 Outpatient EL [facility] [id number] [facility] 00:00:00 00:00:00 2020-10-19 2020-10-[address] [facility] [id number] [facility] 00:00:00 [facility] 2020-10-19 2020-10-19 Telephone [facility] [id number] 00:00[facility]00 00:00:00 [facility] 2020-10-06 2020-10-06 Telephone [facility] [id number] 00:00:00 00:00:00 [facility] 2020-09-30 2020-09-30 Office [facility] [id number] 13:08:05 14:49:10 Visit [facility] 2020-09-21 2020-09-21 [facility] [id number] 12:18:35 23:59:00 Encounter [facility] 2020-09-21 2020-09-21 Outpatient EL [facility] [id number] [facility] 00:00:00 00:00:00 2020-09-20 2020-09-20 Outpatient EL [facility] [id number] [facility] 00:00:00 00:00:00 2020-09-16 2020-09-16 Outside [facility] [id number] 00:00:00 00:00:00 Orders [facility] 2020-09-13 2020-09-[address] [facility] [id number] 15:09:40 17:08:47 Visit [facility] 2020-08-27 2020-09-02 [facility] Pedro Farris [facility] [id number] 22:17:00 14:43:00 Encounter [facility] 2020-08-31 2020-08-[address] [facility] [id number] [facility] 11:42:00 13:11:00 Event Carroll Burton [facility] 2020-08-31 2020-08-[address] [facility] [id number] 11:00:00 12:15:00 [facility] 2020-08-28 2020-08-[address] [facility] [id number] 00:00:00 00:00:00 Only [facility] 2020-08-27 2020-08-[address] [facility] [id number] [facility]00 00:00:00 [facility] 2020-08-26 2020-08-26 Office [place], 1.2.840.3 [id number] Methodi 14:27:45 16:08:33 Visit Jose Rodgers 47425.1.[address] 3.430.2.7 Hospit a .3.589443 l .8 2020-08-26 2020-08-26 Travel 1.2.840.1 1.2.269.453 2460 [id number] Methodi 00:00:00 00:00:[address] 3.430.2.7 0.2.7.3.698 Ho spita .3.699644 084.8 l .8 2020-08-02 2020-08-02 Travel 1.2.840.1 1.2.370.536 5329 319143 Methodi 00:00:00 00:00:[address] 3.430.2.7 0.2.7.3.698 Ho spita .3.525606 084.8 l .8 2020-07-30 2020-07-30 Telephone [place], 1.2.840.6 [id number] Methodi 00:00:00 00:00:00 Jose Rodgers 87453.1.[address] 3.430.2.7 Hospit a .3.512115 l .8 2020-07-29 2020-07-29 [facility] 1.2.840.1 [id number] Methodi 05:10:00 11:27:00 Encounter Jose Rodgers 32015.1.[address] 3.430.2.7 Hospit a .3.768000 l .8 2020-07-29 2020-07-29 [facility] 1.2.840.1 [id number] Methodi 07:30:00 09:25:00 Jose Rodgers 01855.1.[address] 3.430.2.7 Hospit a .3.736902 l .8 2020-07-29 2020-07-29 Anesthesia Saud Villatoro 1.2.840.1 [id number] Methodi 07:40:00 09:17:00 Event Rose Garcia 15991.1.[address] 3.430.2.7 Hospit a .3.246781 l .8 2020-07-29 2020-07-29 Orders Damaris, 1.2.840.1 [id number] Methodi 00:00:00 00:00:00 Only Derrick Jeong 11824.1.[address] 3.430.2.7 Hospit a .3.436670 l .8 2020-07-29 2020-07-29 Travel 1.2.840.1 1.2.795.789 9082 286013 Methodi 00:00:00 00:00:[address] 3.430.2.7 0.2.7.3.698 Ho spita .3.829724 084.8 l .8 2020-07-27 2020-07-27 Pre-Admiss Monique, 1.2.840.1 [id number] Methodi 14:35:19 15:35:19 ion Jose Rodgers 32955.1.[address] Testing 3.430.2.7 Hospit a .3.068032 l .8 2020-07-27 2020-07-27 Travel 1.2.840.1 1.2.913.114 1740 [id number] Methodi 00:00:00 00:00:[address] 3.430.2.7 0.2.7.3.698 Ho spita .3.499109 084.8 l .8 2020-07-23 2020-07-23 Telephone Monique, 1.2.840.4 [id number] Methodi 00:00:00 00:00:00 Jose Rodgers 37684.1.[address] 3.430.2.7 Hospit a .3.975749 l .8 2020-07-23 2020-07-23 Travel 1.2.840.1 1.2.908.844 3802 [id number] Methodi 00:00:00 00:00:[address] 3.430.2.7 0.2.7.3.698 Ho spita .3.596263 084.8 l .8 2020-07-22 2020-07-22 Office Monique, 1.2.840.7 [id number] 21 [id number] Methodi 14:38:20 15:37:56 Visit Jose Rodgers 69756.1.[address] 3.430.2.7 Hospit a .3.087400 l .8 2020-07-21 2020-07-21 Travel 1.2.840.1 1.2.386.289 3722 [id number] Methodi 00:00:00 00:00:[address] 3.430.2.7 0.2.7.3.698 Ho spita .3.769468 084.8 l .8 2020-02-26 2020-02-27 [facility] Trevor [facility] [id number] 1234 [facility] 10:18:16 10:14:49 Visit [facility] 2020-02-26 2020-02-26 Outpatient ADELINA MURRAY [facility] [id number] [facility] 00:00:00 00:00:00 BIN 2020-02-03 2020-02-03 Outpatient ADELINA MURRAY [facility] [id number] [facility] 00:00:00 00:00:00 BIN 2020-01-30 2020-01-30 Outpatient [facility] [id number] [facility] 00:00:00 00:00:00 Results Test Description Test Time Test Comments Results Result Comments Source COMPREHENSIVE METABOLIC PANEL 2021-11-29 13:18:07 Test Item Value Reference Range Interpretation Comme nts TOTAL PROTEIN (BEAKER) (test 7.1 gm/dL 6.0-8.3 Specimen slightly code = 770) hemolyzed ALBUMIN (BEAKER) (test code 3.4 g/dL 3.5-5.0 L Specimen slightly = 1145) hemolyzed ALKALINE PHOSPHATASE 66 U/L 40-150 (BEAKER) (test code = 346) BILIRUBIN TOTAL (BEAKER) 0.5 mg/dL 0.2-1.2 Spe cimen slightly (test code = 377) hemolyzed SODIUM (BEAKER) (test code = 138 meq/L 136-145 381) POTASSIUM (BEAKER) (test 4.4 meq/L 3.5-5.1 Spe cimen slightly code = 379) hemolyzed CHLORIDE (BEAKER) (test code 101 meq/L 98-107 = 382) CO2 (BEAKER) (test code = 23 meq/L 22-29 355) BLOOD UREA NITROGEN (BEAKER) 23 mg/dL 7-21 H (test code = 354) CREATININE (BEAKER) (test 5.85 mg/dL 0.57-1.25 H Sp ecimen slightly code = 358) hemolyzed GLUCOSE RANDOM (BEAKER) 111 mg/dL 70-105 H (test code = 652) CALCIUM (BEAKER) (test code 9.6 mg/dL 8.4-10.2 = 697) AST (SGOT) (BEAKER) (test 26 U/L 5-34 Sp ecimen slightly code = 353) hemolyzed ALT (SGPT) (BEAKER) (test 9 U/L 6-55 Sp ecimen slightly code = 347) hemolyzed EGFR (BEAKER) (test code = 9 mL/min/1.73 sq m ESTIMATED GFR IS NOT 1092) ACCURATE CRE ATININE CLEARANCE IN [place] EDICTING GLOMERULAR FILT RATION RATE. ESTIMATED GFR IS NOT APPLICABLE FOR DIALYSIS PATIENTS. Transport Nurse ID - DBCBC W/PLT COUNT & AUTO [id number] 13:16:26 Test Item Value Reference Range Interpretation Comments WHITE BLOOD CELL COUNT (BEAKER) 9.6 K/ L 3.5-10.5 (test code = 775) RED BLOOD CELL COUNT (BEAKER) 2.25 M/ L 4.63-6.08 L (test code = 761) HEMOGLOBIN (BEAKER) (test code = 5.9 GM/DL 13.7-17.5 LL 410) HEMATOCRIT (BEAKER) (test code = 21.8 % 40.1-51.0 L 411) MEAN CORPUSCULAR VOLUME (BEAKER) 96.9 fL 79.0-92.2 H (test code = 753) MEAN CORPUSCULAR HEMOGLOBIN 26.2 pg 25.7-32.2 (BEAKER) (test code = 751) MEAN CORPUSCULAR HEMOGLOBIN CONC 27.1 GM/DL 32.3-36.5 L (BEAKER) (test code = 752) RED CELL DISTRIBUTION WIDTH 18.3 % 11.6-14.4 H (BEAKER) (test code = 412) PLATELET COUNT (BEAKER) (test 244 K/CU MM 150-450 code = 756) MEAN PLATELET VOLUME (BEAKER) 10.3 fL 9.4-12.4 (test code = 754) NUCLEATED RED BLOOD CELLS 0 /100 WBC 0-0 (BEAKER) (test code = 413) NEUTROPHILS RELATIVE PERCENT 66 % (BEAKER) (test code = 429) LYMPHOCYTES RELATIVE PERCENT 20 % (BEAKER) (test code = 430) MONOCYTES RELATIVE PERCENT 8 % (BEAKER) (test code = 431) EOSINOPHILS RELATIVE PERCENT 4 % (BEAKER) (test code = 432) BASOPHILS RELATIVE PERCENT 1 % (BEAKER) (test code = 437) NEUTROPHILS ABSOLUTE COUNT 6.34 K/ L 1.78-5.38 H (BEAKER) (test code = 670) LYMPHOCYTES ABSOLUTE COUNT 1.96 K/ L 1.32-3.57 (BEAKER) (test code = 414) MONOCYTES ABSOLUTE COUNT (BEAKER) 0.78 K/ L 0.30-0.82 (test code = 415) EOSINOPHILS ABSOLUTE COUNT 0.36 K/ L 0.04-0.54 (BEAKER) (test code = 416) BASOPHILS ABSOLUTE COUNT (BEAKER) 0.05 K/ L 0.01-0.08 (test code = 417) IMMATURE GRANULOCYTES-RELATIVE 2 % 0-1 H PERCENT (BEAKER) (test code = 2801) TISSUE [id number] 15:48:24Surgical Pathology Report Case: [id number] Authorizing Provider: Krystian Knowles MD Collected: 10/28/2021 08:33 AM Ordering Location: [facility] PERIOPERATIVE Received: 10/28/2021 01:17 PM SERVICES Pathologist: Kami Madrigal MD Specimens: A) - Bladder Tumor, Bladder tumor lateral to left UO B) -Soft Tissue, Other, Posterior midline C) - Bladder [...] RESECTION OF BLADDER TUMOR: -PAPILLARY UROTHELIAL CARCINOMA, 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 URINARY BLADDER, HIGH POSTERIOR WALL, TRANSURETHRAL RESECTION OF BLADDER TUMOR: - PAPILLARY UROTHELIAL CARCINOMA, HIGH-GRADE (WHO GRADE 3), SUPERFICIALLY INVASIVE INTO THE LAMINA PROPRIA-DEPTH OF INVASION: LESS THAN 0.5 MM -NO LYMPHOVASCULAR INVASION IDENTIFIED -MUSCULARIS PROPRIA IDENTIFIED D. URINARY BLADDER, ANTERIOR WALL, TRANSURETHRAL RESECTION OF BLADDER TUMOR: -PAPILLARY UROTHELIAL CARCINOMA, HIGH-GRADE (WHO GRADE 3), INVASIVE INTO THE LAMINAPROPRIA-DEPTH OF INVASION: AT LEAST 0.5 MM -NO LYMPHOVASCULAR INVASION IDENTIFIED -MUSCULARIS PROPRIA IDENTIFIED E. 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 A prostatic basal cell markerwill be performed, and the results will be issued in an addendum to follow.[id number] (J2), [id number], [id number] year old man presented with gross hematuria, found to have high grade urothelial carcinoma of bladde rBladderA. Bladder Tumor.Received in formalin, labeled with the [...] in cassettes C1-C2. D. Bladder Tumor.Received in formalin,labeled with the patient's name, accession number, and [...] The specimen is entirely submitted in cassette E1.F.Bladder Tumor.Received in formalin, labeled with the patient's [...] of immunohistochemistry or special stains.Control Slides Examined: In- house known positive controls were evaluated along with the test tissue. These control slides run alongside of the patients sample show appropriate staining. Internal positive and negative controls when available are evaluated Immunohistochemistry technical testing was performed at [facility], Pathology Laboratory where it was [...] qualified to perform high complexity clinical laboratory testing.[facility], Department of Pathology, [address] [place] [address], [facility], [address] [place] [address], [facility], [facility], [address] [place] [address], QGYE,POST-VOID RES,US,[id number] 00:00:00 Test Item Value Reference Range Interpretation Comments PVR (test code = 6116) cc/ml [facility] [id number] 07:58:26 Test Item Value Reference Range Interpretation Comments SODIUM (BEAKER) 135 meq/L 136-145 L (test code = 381) POTASSIUM (BEAKER) 5.4 meq/L 3.5-5.1 H (test code = 379) CHLORIDE (BEAKER) 101 meq/L 98-107 (test code = 382) CO2 (BEAKER) (test 24 meq/L 22-29 code = 355) BLOOD UREA NITROGEN 17 mg/dL 7-21 (BEAKER) (test code = 354) CREATININE (BEAKER) 5.51 mg/dL 0.57-1.25 H (test code = 358) GLUCOSE RANDOM 134 mg/dL 70-105 H (BEAKER) (test code = 652) CALCIUM (BEAKER) 8.7 mg/dL 8.4-10.2 (test code = 697) EGFR (BEAKER) (test 10 mL/min/1.73 ESTIMA RADHA GFR IS code = 1092) sq m NOT ACCURATE CREATININE CLEARANCE IN PREDICTING GLOMERULAR FILTRATION RATE . ESTIMATED GFR I S 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 Transport Nurse ID - DBCBC W/PLT COUNT & AUTO [id number] 06:17:28 Test Item Value Reference Range Interpretation [...] PERCENT (BEAKER) (test code = 2801) PROTHROMBIN TIME/[id number] 06:49:16 Test Item Value Reference Range Interpretation Comments PROTIME (BEAKER) 15.4 seconds 11.9-14.2 H (test code = 759) INR (BEAKER) (test 1.24 See_Comment [Automat ed message] code = 370) The system [employer] generated this result transmitted ref erence range: <=5.90. The reference range was not used to int erpret this result as normal/abnormal . RECOMMENDED COUMADIN/WARFARIN INR THERAPY RANGESSTANDARD DOSE: 2.0 - 3.0 Includes: PROPHYLAXIS forvenous thrombosis, systemic embolization; TREATMENT for venous thrombosis and/or pulmonary embolus.HIGH RISK: Target INR is 2.5-3.5 for patients with mechanical heart valves.BASIC METABOLIC [id number] 06:48:04 Test Item Value Reference Range Interpretation [...] S 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 Transport Nurse ID - DBCBC (HEMOGRAM ONLY)2021-10-28 06:33:33 Test [...] (test code = 413) CT, CHEST, WITH [id number] 15:08:00Unlisted Reason for Exam - Click Yes and Enter Reason Below->No [facility] CENTERName: Robbie LONDON : 1945 [...] Milo Hampton MDReport Verified Date/Time: 115:08:26 CT, [id number] 15:08:00Unlisted Reason for Exam - Click Yes and Enter Reason Below->NoWill this procedure require oral contrast?->No [facility] : 1945 Sex: MFINAL REPORT [...] Milo Hampton MDReport Verified Date/Time: 115:08:26 TISSUE [id number] 15:37:48Surgical Pathology Report Case: [id number] Authorizing Provider: Sebas Huang, Collected: 03/28/2021 09:09 AM OrderingLocation: [facility] PERIOPERATIVE Received: 03/28/2021 10:51 AM SERVICES Pathologist: [...] FOR EVALUATION Signing Pathologist Direct Phone Line: [phone] signed by Ariana Victor MD on 03/29/2021 at 3:37 [id number] tumor, bladder tumorA.bladder tumor, right ureteral orifice;B. [...] entirely submitted into B1. MG/pl A-B Performed [facility], Department of Pathology, [address] [place] [address], [facility], Department of Pathology, [address] [place] [address], [facility], [facility], [address] [place] [address], [id number] 07:31:01 Test Item Value Reference Range Interpretation Comments POTASSIUM (BEAKER) (test code = 5.9 meq/L 3.6-5.5 H 379) Transport Nurse ID - DSENSONOperator ID - DSENSONOperator ID - DSENSONOperator ID - DSENSONURINE [id number] 08:30:07 Test Item Value Reference Range Interpretation Comments CULTURE (BEAKER) (test code = 1095) No growth SARS-COV2/RT-PCR ([facility])2021-03-25 04:37:04 Test Item Value Reference Range Interpretation Comments SARS-COV2/RT-PCR (test code = Negative Negative 1415998) Negative result for this test determines that [...] the [place]ard SARS-CoV-2 assay.Fact Sheet for Healthcare Providers:https://www.[employer].Doculynx/burak/RT SARS-CoV-2 HCP Fact Sheet 51- 460924.pdfFact Sheet for Healthcare Patients:https://www.[employer].Doculynx/burak/RT SARS-CoV-2 Patient Fact Sheet EN 51-227788G2.pdfBASIC METABOLIC [id number] 13:21:06 Test Item Value Reference Range Interpretation [...] S 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 Transport Nurse ID - DSENSONOperator ID - DSENSONOperator ID - DSENSONOperator ID - DSENSONOperator ID - DSENSONOperator ID - DSENSONOperator ID - DSENSONOperator ID - DSENSONOperator ID - DSENSONOperator ID - DSENSONOperator ID - DSENSONOperator ID - DSENSONOperator ID - DSENSONCBC W/PLT COUNT & AUTO [id number] 13:08:14 Test Item Value Reference Range Interpretation [...] PERCENT (BEAKER) (test code = 2801) URINE [id number] 11:41:14 Test Item Value Reference Range Interpretation Comments CULTURE (BEAKER) (test <10,000 col/mL skin code = 1095) ramírez RAD, CHEST, 2 [id number] 13:50:00Reason for exam:->pre opShould this be performed at the bedside?->No [facility] : 1945 Sex: MFINAL REPORT [...] the chest can be considered. Signed: Norbert Davidson MDReport Verified Date/Time: 03/11/2021 13:50:52 [facility] BASI METABOLIC [id number] 12:05:00 Test Item Value Reference Range Interpretation [...] S 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 Transport Nurse ID - DSENSONOperator ID - DSENSONOperator ID - DSENSONOperator ID - DSENSONOperator ID - DSENSONOperator ID - DSENSONOperator ID - DSENSONOperator ID - DSENSONOperator ID - DSENSONOperator ID - DSENSONOperator ID - DSENSONOperator ID - DSENSONOperator ID - DSENSONPROTHROMBIN TIME/[id number] 11:43:47 Test Item Value Reference Range Interpretation Comments PROTIME (BEAKER) 11.6 seconds 9.3-12.0 Final Infor mation (test code = 759) (Auto Outp ut) INR (BEAKER) (test 1.05 See_Comment Final Inf ormation code = 370) (Auto Output) [Automated mess age] The system [employer] generated this result transmitted ref erence range: [...] (BEAKER) (test code = 2801) URINE CULTURE, [id number] 04:06:00 Test Item Value Reference Range Interpretation Comments Urine Culture, SEE NOTE CULTURE, UR INE, Routine (test ROUTINE Mi microbiology technician code = 8432817) Number: [id number] Test Status: Final Specimen Source: URINE Specimen [...] ANSWER AT DR OFFICE TO VERIFY TEST 511779 [facility] W/RFLX CULTURE, [id number] 22:06:00 Test Item Value Reference Range Interpretation Comments Specific [place], UA 1.014 1.005-1.03 (test code = 2965-2) pH, UA (test code = >=9.0 5.0-7.5 A 5803-2) Color, UA (test code [place] Yellow = 9796-4) Appearance (test code Cloudy Clear A = 5762259) WBC Esterase (test 1+ Negative A code = 7358925) Protein, UA (test 3+ Negative/T A code = 76939-5) Glucose, Urine (test Trace Negative A code = 58688-5) Ketones, UA (test Negative Negative code = 0234-8) Blood, UA (test code 3+ Negative A = 11513-3) Bilirubin, UA (test Negative Negative code = 5770-3) Urobilinogen,Semi-Qn 0.2 mg/dL 0.2-1 (test code = 5919549) Nitrite, UA (test Negative Negative code = 15056-4) Microscopic See below: Microscopic was Examination (test indicated and was code = 4441681) performed. Urinalysis Reflex Comment This speci men has (test code = ) reflex ed to a Urine Culture. ТАТЬЯНА (test code = ТАТЬЯНА) Performed at: [facility] [id number] Director: Calderon Silver MD, Phone: [phone] Lab Interpretation Abnormal (test code = 41717-2) [facility]enaMICROSCOP[facility] [id number] 22:06:00 Test Item Value Reference Range Interpretation [...] = ТАТЬЯНА) Performed at: [facility] [id number] Director: Calderon Silver MD, Phone: [phone] Lab Interpretation Abnormal (test code = 73449-9) [facility] Leuko-Red [id number] 23:54:00 Test Item Value Reference Range Interpretation Comments CROSSMATCH (test code = 2264) COMPATIBLE Unit ABO (test code = O Pos 8015223) UNIT NUMBER (test code = [id number] 934-0) Status (test code = 4860023) TX_TIMEINCHART Blood Bank Product (test code RED BLOOD CELLS = 2263) PRODUCT CODE (test code = N7755B07 933-2) [facility]enaTissue [id number] 10:04:00 Test Item Value Reference Range Interpretation Comments Case Report (test code Surgical Pathology = 104) Report Case: [id number] Authorizing Provider: Sebas Huang, Collected: 10/25/2020 06:39 PM Ordering Location: [address] Med/Surg Received: 10/26/2020 07:45 AM Pathologist: Ariana Victor MD Specimens: A) - Bladder Tumor, Bladder clots and right ureteral tumor B) - Bladder Biopsy, Left Wall, left bladder wall C) - Bladder Biopsy, Wall, posterior bladder wall DIAGNOSIS (test code = o5yijPLjNXUfm1osOXQdtD 3220) FuZzEwMzNcZnRuYmpcdWMx IHtccnRmMVxlcGljOTIwMl dhcjDiPZWhdSFvO4Scnyco EHfpKK3zHV8jxPdprQQkgC YsURJrLzUgy4sos809pGPn g4zxCNEZnumecDx5qSmfM4 7jo0E5VillS78guCLnNCwq bGFpblxmczIwIEEuIEJMQU XSAEUiY4lIAFKhXU7GIDAR W9vXQLTNLKFTSdKAWLDXLR 9SYJIXFR0XU0c3DCIpviGd UELgARmML8avL2ZBVRMmMR EKCCmAESaYBISDOFPNUY1J VHXgCJ8xBDXGCEONG8PEIZ 5JUH7QYLwFLN9KHyhRV7Ia LY5HV9CNV1uCMZDXGCUFWl FOVUxBVElPTiBUSVNTVUUg Rw4NKAWBEH4CMFKnuaRhMK TwWODXZD5BOSwVYhATZZJm VJ2GOiAJTQVDTGAVSGKZHM 1JTkEgUFJPUFJJQVxwYXIg ICAgLSBOTyBERUZJTklUSV WMQF9WB5WNTKKKQEPnEMBE KUOXYPTZJwGDDkCWID2IJA WLDzPSYyPJSWKEGT8HCOJg ivdyOXHhYg2nTFQOMSYKQG BEMJPIMPfSDNbyCGMRY7IF TKlnkVZbIVYmTK8uYQLIYA iTSCjIGCFETWNNA3YzPC9A D8ZADXZTJFTVUpGAHXdFX8 4CJjIRUTBeeuFpOHAmCT0G NP1VS7NWSTIGPGRhBJUNIY KZJIGRDaAOTlDLMF1VPFAA HmWWXpCHBXRBPK5RVELpzQ JnVTXbzzDAMaEPJ4ACHGQI K9UeXjyLBYQBOvYWVGoCBF WDZD9YA8a1BONixpRpMABu TGTBI8KSYZyGBAqfBSETO7 ZYRKKEXOtNCPwCHSBSM2Ct OMIHWJaFFJ4EZAJsaLDyJW DzFC4qNYZEF0DFHHEVZdCG Tr5YBpmASGcEOIYHOLLOHx KisDZpUWPlugXXHq3dzUzj MYY5t9gcfQZoWHIkhUTyQQ AwMFxhbnNpXGRlZmxhbmcx LQIbWHK8mcQiUWUiNVgeMW EcPYdmTt4yzTSolMvqBfJc VCNlg3rryuUXudhczOi6y4 ssKWCiEuV4fKKgMPgrA1cp zzBdoXOwLPOmUXs7qU03QG NedB9xtXLeHOlcbgJkNrA6 IMwvBKSjJvD7HBWgmKJuQZ KmH0xiEEZlCZpvXDZmSGdz eNNhBHO4eAedg0N3vUPheV FymOotAaLuInKbOtJPy2Jf AZm7pYdyJ5BiOWQoFnY3oF QgUGFyYWdyYXBoIEZvbnQ7 oU44MBbmhqY1tLNge4Jzf4 3ei867vU6ftQInVON1DNXe IRSjgUJdZKVuTLB8VWCedG PzB3hlJUUnGE3mfrhkXPon AOkvLSMkcHA1PAVytEOiL5 NrXBSrYRryZIIkhvf0BhFu Yk3deCGceZeaAYlyl0zoe2 iunAEhTug1XRCkGxOlTgif PHefg8Tai3azTUBooy1dKT G9cUTqgTcss3I8mXVqANKd aXWqIFLwMV5opCPqTNZbiI 5ucmxjXHBnYnJkcmhlYWRc pNatdiYyCg8hcMbhGMY1RF peL7ymyF4yFyU7VAkwW8vi rY2iRFv7MKoaQAKzxZH4or L4ZQHliZRdG9TrbL8fKGKx TR5bxhv9n1wvJRQ7XBqcUV MiJwF9anJ7TJLzyEDdMQIw gNrbKCamr352SPN5GxWwQJ Hsd1NuY2VdbRbnT02ygQxz Y84nSOIjeLkrbH3krZpsnY 4hGlQdJcJrTJpekYbjYN7c NVLeU4olkQLrRPHlOVHmI7 kaCmUpwI2qcNhyQDdyweOt GGPdEtr2NHEcuNAxAGTrBv j4UJZlXTBpW49hghghGVM9 gO1dx8qrv1IfMNlnIMH2SL Fob77tTHeqbyR3PPilAq66 HFodRyP8HHrqMEA6bA== CPT Code(s) (test code [id number] = 3357) Vsu9cem9WceOMknWRuIGnu sAStfmHwih33bZR6nE00XK 5tLMUmZsJ0VWOakoJ6Fak5 LCZpNGBeySLjW944j0icb5 rlqmJgoYJ1jAssASOxHNSc YWluXGZzMjAgODgzMDUgeD NccGFyfQ== CLINICAL HISTORY (test l6iluLQyFGYbbSA6QgIsRF code = 3356) Dyk6ibu4MnaOKkeLQvIElc pCEwheLqes44nQW4cD08VH 2vIWVrHfQ1RPQkjqV8Xmn5 EWEpXYTwbVVyB253r2ubl1 ngzdZwsSX3xMkuSITtBWPn BUxzBWHgCkRtNPDwDVZ9aq rkVTSvv1RuL6vkkZZfQQL9 xCFaMRHrYBKcrkHfYEY9uI 0kCJNbyu5= SPECIMEN SOURCE (test w4mpyAWbNEYglCN5GmVyYG code = 3377) Ubq9lgg9GhhXQxcOVtSLbg eBKbozUuql60sEQ3qR56UH 5lTCSxHjL2GNAjfvG1Npb0 IKDxLDPmbHHcY302t6vfd7 iwdeTomMH6yHwgOQWzNSYo XPbvIXIhKhNdQH7gRqcjUI HfxfWheV55aeYwftUzlxln aHQgdXJldGVyYWwgdHVtb3 S1UVPmUUthJyCxIqohAGBl zvL6OCjlRrSRDmBNk8V8XV Orp0FfTjocEYBoisB4LObj XHBhcn0= GROSS DESCRIPTION (test z2gopOOiMVMzdHL1TfOoNU code = 3366) Eas1qxd2QhfEYvtTIcLDgf tFFchfFcon52sRN6kL26YB 1zQTAsLxF2TQQfasE1Ien8 KLSlKGRjkNKeF621y2qyz4 sivoGmzKO8tPeqBNIdNIVm BGnhIWRvLqNvF6NuB5kkEM 4gQSBpcyByZWNlaXZlZCBp nnTtxIdfkYf4UTPzwpCawU XuYKouWDK4aPAdZUIaCGEw MJCyKJ71Q9NvdbTvCOawhJ VkaWNhbCByZWNvcmQgbnVt NdHgGLOoVFQvVBCtW29ssB VkIGFzICJibGFkZGVyIHR1 wG7hGrGstbWkI65ey7fkdU Duk7VqbUNisKewdIJegjFd JUEfg0uoEGMfz0G8UDDpkv CnnTZnsIGaeDVxy0OfpW4c VGhnWZS7SOHmFUF2YUCwJM EbdL4sALzvSLFnWAUofREb ROnbJVOinLFli9UiHEFfPV McfOfgJX85uWgxn5HvBppt e1VaE7bzoD5xIk2nURsqmQ sgi8QfHYPzOChuFK49tuYx cmUgaWRlbnRpZmllZCBtZW SoeYUwuvmgUK86GMjzLJ1r ANzsKV16JMWoHToeBADjV1 FcV7B1PO4vVQvzRDZyc7Y4 ZSBmcmFnbWVudHMgYXJlIG ZavEesWHk0BPN7Yx1eeXEk ZCBpbnRvIEExIHRvIEEyIG FuZCByZXByZXNlbnRhdGl2 BQArUAW9mQ3mzqInJiB2pM DjCgpkh6ZqE2wkmECpzvQt r6BhvBw7qYDxEBccjH3yEH MuICBccGFyXHBhciBTcGVj hH0igeFJEXivAWMxD3Xerq WqMXzyWICexIT1uRCxMAWv ZCBsYWJlbGVkIHdpdGggdG lcFHEyxWplzvOdfxFgDM3i SJYtMKAkF9IqFJQaU46zGH DthA4eDPWiDC8jTVTor1ds nwN7XSZxFWBgYrKkZXRkRH JvJxscjBK1AJbqHdWtr3Df rSFpHW9yXYDbmoPxq4WoRT 2kIRQagQwjll82JF5tvPik y0SbTMHpSKiyDD65wrU3aV B9VOndHORfJEZfsIAcvbPu avFtrUYwjAXlpF8pfkSmw3 8pOCMcMRB0zRWjiWXyVvTc S93ihkNroJNwDE62jTMkdK xxw4YaiBy8fICeRQlldS4y QjEuIFxwYXJccGFyIFNwZW NpbWVuIEMgaXMgcmVjZWl2 AHUwxK2uNba8DHJpkgMvUA 0bLXkzJgUgTVPom8n8gQI5 nAUrpKP6oHKlxBgmHV7lkB VpCU7nUGgiMUahvkQoo6Cr OE08eZGhwoOhtgGcVYOpxK duYXRlZCBhcyAiYmxhZGRl qjCkaP5fg8xgc7BjuGIrGC 3gIRSkfjWce7NyXG3qUGJw xAfjlg62BN9kiXtli3AjYE KpLYceAZ51MFQuPAGirRRv VJ27XTEuDQdhNWsoFLU7UY Q7STXknSVlh2lxzk0yQEul TQGtx0W0OSFbelWkaRAzdN BpcyBlbnRpcmVseSBzdWJt yBE1YGLqyX18lxMKLS5vFQ UVFv3nqPXitZIfeU== MICROSCOPIC DESCRIPTION o0hlpZSjKDFamYV6FkItTB (test code = 3371) Day4gpi8FcpHOxaBDoAJks pJSqphCbli29qQX9eR77EG 0sOXQhIfF2DTDycpT1Vih8 SXFkPDPcpHQdT061a2toh8 evnrNtxZJ8uMvqDWVgFIOg USxjEKMyGeOzXT3JNjYWYS Dvl9XzFVKmEZZysp2= Gross assessment was [facility] performed at (test code Hospital, Department = 2777) of Pathology, [address] [place] [id number], Technical component was [facility] performed at (test [facility], = 2778) Department of Pathology, [address] [place] [id number], Professional component . [facility] was performed at ([facility], Department code = 2779) of Pathology, [address] [place], [place] [id number] [id number] 10:04:00Surgical Pathology Report Case: [id number] Authorizing Provider: Sebas Huang, Collected: 10/25/2020 06:39 PM OrderingLocation: [facility]A Med/Surg Received: 10/26/2020 07:45 AM Pathologist: [...] IS PRESENTMG/pl Signing Pathologist Direct Phone Line: [phone] signed by Ariana Victor MD on 10/27/2020 at 10:04 [id number] unspecified type, ureteral tumorA. Bladder clots and [...] entirely submitted into A1 to A2 and representative phlebotomy services sections of the blood clot are submitted [...] entirely submitted into C1. MG/pl A-C: Performed [facility], Department of Pathology, [address] [place] [address], Ocxwvl [facility], Department of Pathology, [address] [place] [address], [facility], [address] [place] [address], Evoph Metabolic [id number] 05:29:00 Test Item Value Reference Range Interpretation Comments Sodium (test code = 139 meq/L 996-461 6647-2) Potassium (test code = 5.1 meq/L 3.6-5.5 2823-3) Chloride (test code = 102 meq/L 98-106 2075-0) CO2 (test code = 26 meq/L 20-29 2028-9) BUN (test code = 32 mg/dL 10-26 H 3094-0) Creatinine (test code 9.44 mg/dL 0.5-1.2 H = 2160-0) Glucose (test code = 107 mg/dL 70-110 2345-7) Calcium (test code = 8.8 mg/dL 8.5-10.5 72914-7) EGFR (test code = 5 mL/min/1.73 [place] [address]-4) NOT ACCURATE CREATININE CLEARANCE IN PREDICTING GLOMERULAR FILTRATION RATE . ESTIMATED GFR I S NOT APPLICABLE FOR DIALYSIS PATIENTS. ТАТЬЯНА (test code = ТАТЬЯНА) Transport Nurse ID - [id number] ID - [id number] ID - uevn64Lqeqygqn ID - neiq18Byliyzry ID - mgqb80Fharxxhp ID - xrtq01Aylpovyn ID - rfig38Egmsyler ID - hhkn55Azksnktw ID - daas12Vkpectic ID - cjye78Qxmkbgej ID - axox13Zfgoxpcg ID - xpje19Asnwdipw ID - zdxs12 Lab Interpretation Abnormal (test code = 16655-8) [facility] [id number] 05:29:00 Test Item Value Reference Range Interpretation [...] S 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 Transport Nurse ID - [id number] ID - cfwz42Tritaarp ID - bufj72Wmoccojd ID - lodu65Dffzglds ID - shbp47Vfqadgyx ID - nkpv41Ullyteeg ID - efeh25Duttxarf ID - uzpx63Wnnjqvaj ID - ingo18Teajvgya ID - fdep98Ffwmraxr ID - tmty32Bdextqxb ID - zczy01Efcsvzdf ID - [id number] with platelet count + automated tyum3435-20-94 05:09:00 Test Item Value Reference Range Interpretation Comments WBC (test code = 6690-2) 7.6 See_Comment [A utomated message] The system [employer] generated this result transmitted ref erence range: 4.0 - 10 .0 K/L. The refe rence range was not u sed to interpret this result as normal/abnor mal. RBC (test code = 789-8) 2.28 See_Comment L [Au tomated message] The system [employer] generated this result transmitted ref erence range: 4.20 - 5 .80 M/L. The refe rence range was not u sed to interpret this result as normal/abnor mal. MCHC (test code = 786-4) 31.3 See_Comment L [A utomated message] The system [employer] generated this result transmitted ref erence range: [...] See_Comment [Aut omated message] 777-3) The system [employer] generated this result transmitted ref erence range: 150 - 43 0 K/CU MM. The referen ce range was not u sed to interpret this result as normal/abnor mal. MPV (test code = 9.6 fL 6-11.5 08166-9) nRBC (test code = 413) 0 See_Comment [Aut omated message] The system [employer] generated this result transmitted ref erence range: [...] See_Comment [Aut omated message] 670) The system [employer] generated this result transmitted ref erence range: 1.80 - 8 .00 K/L. The refe rence range was not u sed to interpret this result as normal/abnor mal. # Lymphs (test code = 1.26 See_Comment L [Auto mated message] 414) The system [employer] generated this result transmitted ref erence range: 1.48 - 4 .50 K/L. The refe rence range was not u sed to interpret this result as normal/abnor mal. # Monos (test code = 0.84 See_Comment [Autom ated message] 415) The system [employer] generated this result transmitted ref erence range: 0.00 - 1 .30 K/L. The refe rence range was not u sed to interpret this result as normal/abnor mal. # Eos (test code = 416) 0.25 See_Comment [Au tomated message] The system [employer] generated this result transmitted ref erence range: 0.00 - 0 .50 K/L. The refe rence range was not u sed to interpret this result as normal/abnor mal. # Baso (test code = 417) 0.03 See_Comment [A utomated message] The system [employer] generated this result transmitted ref erence range: 0.00 - 0 .20 K/L. The refe rence range was not u sed to interpret this result as normal/abnor mal. Immature 1 % 0-0 H Granulocytes-Relative (test code = 2801) Lab Interpretation (test Abnormal code = 76842-9) [facility] W/PLT COUNT & AUTO [id number] 05:09:00 Test Item Value Reference Range Interpretation [...] (BEAKER) (test code = 2801) BASIC METABOLIC [id number] 05:21:00 Test Item Value Reference Range Interpretation [...] S 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 Transport Nurse ID - LITOOperator ID - LITOOperator ID - LITOOperator ID - LITOOperator ID - LITOOperator ID - LITOOperator ID - LITOOperator ID - LITOOperator ID - LITOOperator ID - LITOOperator ID - LITOOperator ID - LITOOperator ID - LITOCBC W/PLT COUNT & AUTO [id number] 04:38:00 Test Item Value Reference Range Interpretation [...] (test code = 2801) Hepatitis B surface jluvzjyj4809-43-34 17:58:00 Test Item Value Reference Range Interpretation Comments Hep B S Ab (test code <8.0 See_Comment [Auto mated = 20613-3) message] The system which generated this result transmit radha reference range : <8.0 mIU/mL. e reference range was not used to interpret this result as normal/abnormal . ТАТЬЯНА (test code = ТАТЬЯНА) Transport Nurse ID - DB Lab Interpretation Normal (test code = 79596-9) [facility] SURFACE [id number] 17:58:00 Test Item Value Reference Range Interpretation Comments HEPATITIS B SURFACE ANTIBODY < mIU/mL <8.0 (BEAKER) (test code = 647) Transport Nurse ID - OCSueogcsvd3590-55-58 13:35:00 Test Item Value Reference Range Interpretation Comments Potassium (test code = 4.2 meq/L 3.6-5.5 2823-3) ТАТЬЯНА (test code = ТАТЬЯНА) Transport Nurse ID - [id number] ID - kdwn58Sxduqdal ID - toqs78Cclkxlyc ID - zdxs12 Lab Interpretation (test Normal code = 31537-2) [facility] 13:35:00 Test Item Value Reference Range Interpretation Comments POTASSIUM (BEAKER) (test code = 4.2 meq/L 3.6-5.5 379) Transport Nurse ID - cssm20Bkhjxzwr ID - zsqo49Sxsycveq ID - fslf64Irjllcip ID - zdxs12 BASIC METABOLIC [id number] 06:45:00 Test Item Value Reference Range Interpretation [...] S 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 Transport Nurse ID - MITCHOperator ID - MITCHOperator ID - MITCHOperator ID - MITCHOperator ID - MITCHOperator ID - MITCHOperator ID - MITCHOperator ID - MITCHOperator ID - MITCHOperator ID - HDSYGLlwjpfpaty2425-06-36 06:44:00 Test Item Value Reference Range Interpretation Comments Phosphorus (test code = 5.9 mg/dL 2.5-4.5 H 2777-1) ТАТЬЯНА (test code = ТАТЬЯНА) Transport Nurse ID - MITCHOperator ID - MITCHOperator ID - MITCHOperator ID - STEVE Lab Interpretation Abnormal (test code = 57317-7) [facility] 06:44:00 Test Item Value Reference Range Interpretation Comments PHOSPHORUS (BEAKER) (test code = 5.9 mg/dL 2.5-4.5 H 604) Transport Nurse ID - MITCHOperator ID - MITCHOperator ID - MITCHOperator ID - MITCHCBC (Hemogram only)2020-10-25 06:33:00 Test Item Value Reference Range Interpretation Comments WBC (test code = 6690-2) 10.6 See_Comment H [A utomated message] The system [employer] generated this result transmitted ref erence range: 4.0 - 10 .0 K/L. The refe rence range was not u sed to interpret this result as normal/abnor mal. RBC (test code = 789-8) 2.39 See_Comment L [Au tomated message] The system [employer] generated this result transmitted ref erence range: 4.20 - 5 .80 M/L. The refe rence range was not u sed to interpret this result as normal/abnor mal. MCHC (test code = 786-4) 31.0 See_Comment L [A utomated message] The system [employer] generated this result transmitted ref erence range: [...] See_Comment [Aut omated message] 777-3) The system [employer] generated this result transmitted ref erence range: 150 - 43 0 K/CU MM. The referen ce range was not u sed to interpret this result as normal/abnor mal. MPV (test code = 9.8 fL 6-11.5 93687-2) nRBC (test code = 413) 0 See_Comment [Aut omated message] The system [employer] generated this result transmitted ref erence range: 0 - 0 /1 00 WBC. The refere nce range was not u sed to interpret this result as normal/abnor mal. Lab Interpretation (test Abnormal code = 29148-3) [facility] (HEMOGRAM ONLY)2020-10-25 06:33:00 Test Item [...] (test code = 413) Type and screen, fxdfktavt1400-24-35 14:42:00 Test Item Value Reference Range Interpretation Comments ABO/RH AUTOMATED (BEAKER) (test O POSITIVE code = 2260) Ab Scrn (test code = 890-4) NEGATIVE [facility] [id number] 08:07:00 Test Item Value Reference Interpretation Comments [...] 13) >100,000 col/mL skin floraHepatitis B surface qepfjfa1269-34-53 15:09:00 Test Item Value Reference Range Interpretation Comments HBsAg Screen (test code Nonreactive Nonreactive = 5195-3) ТАТЬЯНА (test code = ТАТЬЯНА) Transport Nurse ID - [id number] Lab Interpretation (test Normal code = 63056-3) [facility]FACE [id number] 15:09:00 Test Item Value Reference Range Interpretation Comments HEPATITIS B SURFACE ANTIGEN (2) Nonreactive Nonreactive (BEAKER) (test code = 2585) Transport Nurse ID - [id number] METABOLIC [id number] 05:03:00 Test Item Value Reference Range Interpretation [...] S 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 Transport Nurse ID - [id number] ID - [id number] ID - [id number] ID - [id number] ID - [id number] ID - [id number] ID - [id number] ID - [id number] ID - [id number] ID - [id number] ID - [id number] ID - [id number] ID - [id number] W/PLT COUNT & AUTO [id number] 04:56:00 Test Item Value Reference Range Interpretation [...] Xpert (test code = Negative, See Xpress 37819-6) external report SARS-CoV-2/F yuliet/RSV test for linked [...] Fact Sh eet for Healthcare Prov iders: https://www.[employer]/ Documents/Xpert %20Xpress %86OCBK-UeR-0-F yuliet-RSV/30 2-4508%20Rev.%2 0B%20HCP% 20Fact%20Sheet. pdf Fact Sheet for Healt hcare Patients: https://www.[employer]/ Documents/Xpert %20Xpress %81RORH-ZyX-6-F yuliet-RSV/30 2-4507%20Rev.%2 0B%20Pati ent%20Fact%20Sh eet.pdf SARS-COV-2 SLSL Performed at:[facility] PERFORMING LAB [place] [id number] (test code = [facility] [address]-8) [place] [address] ph: [phone] [facility]2020-10-23 00:12:00 Test Item Value Reference Range Interpretation Comments SARS-COV2/RT-PCR Negative Not Detected, Performanc e of the Xpert (test code = Negative, See Xpress [id number]) external report SARS-CoV-2/F yuliet/RSV test for linked test has only bee n established in nasopharyngeal swab specimens. Use of the Xpert Xpress SARS-CoV-2/Flu/ RSV test with other spec imen types has not b een assessed and pe rformance characteristics are unknown. As wi th any molecular test, mutations withi n the targeted geneti c regions identified by t peter Xpert Xpress SARS-CoV-2/Flu/ RSV test could affect [...] sooner.Fact She et for Healthcare Prov iders: https://www.[employer]/ Documents/Xpert %20Xpress %99WYZY-UyU-6-F yuliet-RSV 2-4508%20Rev.%2 0B%20HCP% 20Fact%20Sheet. pdfFact Sheet for Healt hcare Patients: https://www.[employer]/ Documents/Xpert %20Xpress %56YAPE-JuP-2-F yuliet-RSV30 2-4507%20Rev.%2 0B%20Pati ent%20Fact%20Sh eet.pdf SARS-COV-2 SLSL Performed at:[facility] PERFORM[facility] [place] [id number] (test code = Shelton Nichols 4576868) [place] [address] ph: [phone] CT, [id number] 22:34:00Unlisted Reason for Exam - Click Yes and Enter Reason Below->YesUnlisted Reason for Exam->known R ureteral tumor and r hydro, worsening R side pain, pt ESRD will dialyzeWill this procedure require oral contrast?->No [facility] SURYARob[facility] : 1945 Sex: MFINAL REPORT CT, ABDOMEN [...] 10/22/2020 22:34:38 CT abdomen pelvis with IV ttwyuixr4345-17-98 22:34:00Interface, External Ris In - 10/22/2020 10:37 [...] Rodger Ramires MDReport Verified Date/Time: 10/22/2020 22:34:38 [facility] [id number] 21:18:00 Test Item Value Reference Range Interpretation [...] = 2801) CBC W/PLT COUNT & AUTO [id number] 12:53:00 Test Item Value Reference Range Interpretation [...] (BEAKER) (test code = 2801) BASIC METABOLIC [id number] 12:49:00 Test Item Value Reference Range Interpretation [...] S 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 Transport Nurse ID - [id number] ID - joke89Tdoldhlg ID - hmxb78Tdqregcf ID - slri84Gldwcrhb ID - jzis07Anhfvnfj ID - fduj92Uicsujlo ID - jhqs39Aakxgkui ID - coqn56Zpjrlcyl ID - crqy55Khceagoy ID - ntdd16Ljveskam ID - qsqo65Gszdenss ID - edmt38Rwstrplr ID - cdxc63UQ/vHSS3900-73-61 12:44:00 Test Item Value Reference Interpretation Comments [...] PTT (test code = 28.1 See_Comment Final 52014-3) Information (Auto Output) [Automated message] The system [...] valves. Lab Interpretation Normal (test code = 07228-9) [facility]/YELH1227-17-14 12:44:00 Test Item Value Reference Range Interpretation Comments PROTIME (BEAKER) (test 11.0 seconds 9.3-12.0 Final Information code = 759) (Auto Output) INR (BEAKER) (test 0.99 See_Comment Final Inf ormation code = 370) (Auto Output) [Automated mess age] The system [employer] generated this result transmit radha reference range [...] 2.5-3.5 for patients with mechanical heart valves.CT, [id number] 08:58:00Unlisted Reason for Exam - Click Yes and Enter Reason Below->NoWill this procedure require oral contrast?->No [facility] Robbie LOND[facility] Shirin : 1945 Sex: MFINAL REPORT CT of [...] Colonic diverticulosis. Tiny hiatal hernia. Signed: Irene Juarezeport Verified Date/Time: 09/22/2020 08:58:10 Reading Location: [address] Consult Reading Room CT abdomen/pelvis without & with IV unpmpvlv0220-39-09 08:58:00 Interface, External Ris In - 09/22/2020 [...] Juarez MDReport Verified Date/Time: 09/22/2020 08:58:10 ReadingLocation[facility], [facility]BD[facility], WITHOUT [id number] 15:11:00ESRD patientUnlisted Reason for Exam - Click Yes and Enter Reason Below->NoDeos the patient have an implanted electronic device?->No [facility] : 1945 Sex: [...] to postcholecystectomy biliary reservoir effect. Signed: Abebe Barrett Verified Date/Time: 09/02/2020 15:11:40 Reading Location: [facility] Diagnostic Imaging Reading Room - [place] [address] MR, PELVIS, WITHOUT [id number] 15:11:00ESRD patientUnlisted Reason for Exam - Click Yes and Enter Reason Below->NoDeos the patient have an implanted electronic device?->No [facility] : 1945 Sex: MFINAL REPORT [...] to postcholecystectomy biliary reservoir effect. Signed: Abebe Barrett MDReport Verified Date/Time: 09/02/2020 15:11:40 Reading Location: [facility] Diagnostic Imaging Reading Room - [place] [address] 112[address] MR pelvis without IV eizjogjx4460-80-74 15:11:00Interface, External Ris In - 09/02/2020 3:13 [...] to postcholecystectomy biliary reservoir effect. Signed: [facility] Verified Date/Time: 09/02/2020 15:11:40 Reading Location: [facility] Diagnostic Imaging Reading Room - [place] [id number] [facility] without IV [id number] 15:11:00Interface, External Ris In - 09/02/2020 3:13 [...] to postcholecystectomy biliary reservoir effect. 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 The specimen is entirely submitted into A1-A6. MG/ew Performed [facility], Department of Pathology, [address] [place], [place] [address], Wcphtj [facility], Department of Pathology, [address] [place] [address], [facility], [address] [place], [place] [address], SW, FLUORO, NON-SPECIFIC, UP TO 1 [id number] 12:50:00 Reason for exam:->Surgery [facility] : 1945 Sex: MFluoroscopic unit utilized for a procedure performed in the OR. No interpretation was requested. Refer to the operative report for findings. Refer to PACS for patient radiation dose information.FL fluoro non-specific up to 1 rifp4939-42-15 12:50:00 Interface, External Ris In - 08/31/2020 12:55 PM CSTFluoroscopic unit utilized for a procedure performed in the OR. No interpretation was requested. Refer to the operative report for findings. Referto PACS for patient radiation dose information.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 MD [...] Peak Gradient: 3.29 mmHg Estimated PASP: 42.[address] HelenaComprehensive metabolic beazz8060-12-72 06:56:00 Test Item Value Reference Range Interpretation Comments Protein, Total (test 6.7 See_Comment [Autom ated code = 2885-2) message] The system which generated this result transmitted reference range : 6.0 - 8.5 gm/dL . The reference range was not used to interpr et this result as normal/abnormal . Albumin (test code = 3.2 g/dL 3.5-5 L 60587-4) Alkaline Phosphatase 57 U/L 30-115 (test code = 6768-6) Total Bilirubin 0.4 mg/dL 0.1-1.2 (test code = 1975-2) Sodium (test code = 138 meq/L 322-025 2641-2) Potassium (test code 3.9 meq/L 3.6-5.5 = 2823-3) Chloride (test code 99 meq/L 98-106 = 5-0) CO2 (test code = 26 meq/L 20-29 2027-) BUN (test code = 30 mg/dL 10-26 H 3094-0) Creatinine (test 7.85 mg/dL 0.5-1.2 H code = 2160-0) Glucose (test code = 94 mg/dL 70-110 5-7) Calcium (test code = 8.7 mg/dL 8.5-10.5 20694-8) AST (test code = 49 U/L 5-40 H 1920-8) ALT (test code = 55 U/L 5-50 H 1742-6) EGFR (test code = 7 mL/min/1.73 [place] [address]-2) m NOT ACCURATE CREATININE CLEARANCE IN PREDICTING GLOMERULAR FILTRATION RATE . ESTIMATED GFR I S NOT APPLICABLE FOR DIALYSIS PATIENTS. ТАТЬЯНА (test code = Transport Nurse ID - ТАТЬЯНА) LITOOperator ID - LITOOperator ID - LITOOperator ID - LITOOperator ID - LITOOperator ID - LITOOperator ID - LITOOperator ID - LITOOperator ID - LITOOperator ID - LITOOperator ID - LITOOperator ID - LITOOperator ID - LITOOperator ID - LITOOperator ID - LITOOperator ID - JUNITO Lab Interpretation Abnormal (test code = 69533-3) [facility]PREHENSIVE METABOLIC [id number] 06:56:00 Test Item Value Reference Range Interpretation [...] S 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 Transport Nurse ID - LITOOperator ID - LITOOperator ID - LITOOperator ID - LITOOperator ID - LITOOperator ID - LITOOperator ID - LITOOperator ID - LITOOperator ID - LITOOperator ID - LITOOperator ID - LITOOperator ID - LITOOperator ID - LITOOperator ID - LITOOperator ID - LITOOperator ID - ODEDOnkhusqgi2731-20-42 06:54:00 Test Item Value Reference Range Interpretation Comments Magnesium (test code = 2.1 mg/dL 1.5-3 07993-1) ТАТЬЯНА (test code = ТАТЬЯНА) Transport Nurse ID - LITOOperator ID - LITOOperator ID - LITOOperator ID - JUNITO Lab Interpretation (test Normal code = 03036-6) [facility]NESIUM2021-03-09 06:54:00 Test Item Value Reference Range Interpretation Comments MAGNESIUM (BEAKER) (test code = 2.1 mg/dL 1.5-3.0 627) Transport Nurse ID - LITOOperator ID - LITOOperator ID - LITOOperator ID - LITOCBC W/PLT COUNT & AUTO [id number] 06:31:00 Test Item Value Reference Range Interpretation [...] PERCENT (BEAKER) (test code = 2801) Lipid ytbuq7712-94-23 06:03:00 Test Item Value Reference Range Interpretation Comments Triglycerides (test 125 mg/dL code = 2571-8) Cholesterol (test code 92 mg/dL = 2093-3) HDL (test code = 27 mg/dL 2085-9) LDL Calculated (test 40 mg/dL code = 08373-8) ТАТЬЯНА (test code = ТАТЬЯНА) Triglyceride Reference Range: Low Risk <150 Borderline 150-199 High Risk 200-499 Very High Risk >=500 Cholesterol Reference Range: Low Risk <200 Borderline 200-239 High Risk >240 HDL Cholesterol Reference Range: Low Risk >=60 High Risk <40 LDL Cholesterol Reference Range: Optimal <100 Near Optimal 100-129 Borderline 130-159 High 160-189 Very High >=190 Transport Nurse ID - [id number] ID - [id number] ID - JQJS32Savrjbzk ID - VIAA75Knlxegoi ID - QCNK50Wbexvmrm ID - ZRES04 [facility] CenterLIPID [id number] 06:03:00 Test Item Value Reference Range Interpretation [...] Borderline 130-159 High 160-189 Very High >=190 Transport Nurse ID - EDQV27Vypcoiar ID - BFQX49Nfkcgfgi ID - FQNV94Qgqybalb ID - WPCD72Qrkalvja ID - PFFW93Yakudhdo ID - [id number] W/PLT COUNT & AUTO [id number] 05:38:00 Test Item Value Reference Range Interpretation [...] H PERCENT (BEAKER) (test code = 2801) [id number] 19:47:00 Test Item Value Reference Range Interpretation Comments PSA (test code = 2857-1) 4.9 ng/mL 0-4 H ТАТЬЯНА (test code = ТАТЬЯНА) Transport Nurse ID - [id number] Lab Interpretation (test Abnormal code = 13004-0) [facility] 19:47:00 Test Item Value Reference Range Interpretation Comments PROSTATE SPECIFIC ANTIGEN (BEAKER) 4.9 ng/mL 0.0-4.0 H (test code = 844) Transport Nurse ID - [id number] 18:56:00 Test Item Value Reference Range Interpretation Comments Ferritin (test code = 4479.50 ng/mL 22-322 H 2276-4) ТАТЬЯНА (test code = ТАТЬЯНА) Transport Nurse ID - [id number] ID - [id number] Lab Interpretation (test Abnormal code = 17391-7) [facility]ERRITIN2021-03-07 18:56:00 Test Item Value Reference Range Interpretation Comments FERRITIN (BEAKER) (test code = 4479.50 ng/mL 22.00-322.00 H 361) Transport Nurse ID - [id number] ID - [id number] [id number] 18:33:00 Test Item Value Reference Range Interpretation Comments Vitamin B12 (test code = 919 pg/mL 211-911 H 2132-9) ТАТЬЯНА (test code = ТАТЬЯНА) Transport Nurse ID - [id number] Lab Interpretation (test Abnormal code = 91629-0) [facility]enaVITAMIN [id number] 18:33:00 Test Item Value Reference Range Interpretation Comments VITAMIN B12 (BEAKER) (test code = 919 pg/mL 211-911 H 774) Transport Nurse ID - [id number], [id number] 18:25:00 Test Item Value Reference Range Interpretation Comments Free T4 (test code = 0.90 ng/dL 0.9-1.8 3024-7) ТАТЬЯНА (test code = ТАТЬЯНА) Transport Nurse ID - [id number] Lab Interpretation (test Normal code = 19625-5) [facility] [id number] 18:25:00 Test Item Value Reference Range Interpretation Comments FREE T4 (BEAKER) (test code = 655) 0.90 ng/dL 0.90-1.80 Transport Nurse ID - [id number] 18:22:00 Test Item Value Reference Range Interpretation Comments TSH (test code = 5.480 See_Comment [Automated 27854-3) message] The system which generated this result transmit radha reference range : 0.350 - 5.500 uIU/mL. The reference range was not used to interpret this result as normal/abnormal . ТАТЬЯНА (test code = ТАТЬЯНА) Transport Nurse ID - [id number] Lab Interpretation Normal (test code = 89298-0) [facility] 18:22:00 Test Item Value Reference Range Interpretation Comments THYROID STIMULATING HORMONE 5.480 uIU/mL 0.350-5.500 (BEAKER) (test code = 772) Transport Nurse ID - [id number]/S, RENAL, [id number] 12:08:00Please include bladderReason for exam:->hematuria, history of polycystic kidney diseaseShould this be performed at the bedside?->Yes [facility] : 1945 Sex: MFINAL REPORT [...] MDReport Verified Date/Time: 08/29/2020 12:08:20 Reading Location: [address] ConsultReading Room US renal [id number] 12:08:00Interface, External Ris In - 08/29/2020 12:19 [...] Recommend CT for further evaluation. Signed: Oliver Rai MDReport Verified Date/Time: 08/29/2020 12:08:20 Reading Location: [address] Consult [facility] 2020-08-29 11:42:00 Test Item Value Reference Range Interpretation Comments HEPATITIS B SURFACE ANTIBODY < mIU/mL <8.0 (BEAKER) (test code = 647) Transport Nurse ID - FER MReticulocyte urmxs6705-67-08 11:03:00 Test Item Value Reference Range Interpretation Comments % Retic (test code = 71468-3) 1.8 % 0.4-2.9 Lab Interpretation (test code = Normal 34235-8) [facility]IC[facility] [id number] 11:03:00 Test Item Value Reference Range Interpretation Comments RETICULOCYTE COUNT PCT (BEAKER) (test 1.8 % 0.4-2.9 code = 575) Troponin [id number] 05:52:00 Test Item Value Reference Range Interpretation Comments Troponin I (test code = 0.22 ng/mL 0-0.15 59412-2) ТАТЬЯНА (test code = ТАТЬЯНА) Troponin I [...] [id number] Lab Interpretation (test Abnormal code = 53983-0) [facility]OP[facility]IN [id number] 05:52:00 Test Item Value Reference Range Interpretation [...] failure, acidosis, acute neurological disease, and persistent tachyarrhythmia.Transport Nurse ID - [id number] METABOLIC [id number] 05:32:00 Test Item Value Reference Range Interpretation [...] S 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 Transport Nurse ID - [id number] ID - CTOA25Hwesbcbo ID - VKSI18Cqqtkkid ID - FZYK77Fzcgpzgd ID - RKCF94Trkbofug ID - KBLF66Qiauvuca ID - RPLB33Lhjbopsz ID - LVMZ81Vxkmpiix ID - UWUQ44Nfdwxgha ID - OEWW27Rxegvale ID - USYJ49Myyolvde ID - PPJN80Csevufxo ID - [id number], BRAIN, WITHOUT [id number] 05:08:00Unlisted Reason for Exam - Click Yes and Enter Reason Below->YesUnlisted Reason for Exam->amsAD[facility]IName: JANEL L[place] : 1945 Sex: MFINAL REPORT [...] examination is recommended for further characterization. Signed: Chris, Yessenia MDReport Verified Date/Time: 08/29/2020 05:08:18 [facility] brain without IV kiryiozm4968-02-83 05:08:00Interface, External Ris In - 08/29/2020 5:11 [...] Yessenia Perez MDReport Verified Date/Time: 08/29/2020 05:08:18 [facility] W/PLT COUNT & AUTO [id number] 04:50:00 Test Item Value Reference Range Interpretation [...] (BEAKER) (test code = 2801) Occult blood, [id number] 03:55:00 Test Item Value Reference Range Interpretation Comments Occult blood (test code = 2335-8) Negative Negative Lab Interpretation (test code = Normal 45333-9) [facility], [id number] 03:55:00 Test Item Value Reference Range Interpretation Comments FECAL OCCULT BLOOD (BEAKER) (test Negative Negative code = 618) HEPATITIS B SURFACE [id number] 17:43:00 Test Item Value Reference Range Interpretation Comments HEPATITIS B SURFACE ANTIGEN (2) Nonreactive Nonreactive (BEAKER) (test code = 2585) Transport Nurse ID - CINTHIA Hamilton021-03-06 16:41:00 Test Item Value Reference Range Interpretation [...] failure, acidosis, acute neurological disease, and persistent tachyarrhythmia.Transport Nurse ID - MADISONDEANDRE [id number] 09:49:00 Test Item Value Reference Range Interpretation [...] failure, acidosis, acute neurological disease, and persistent tachyarrhythmia.Transport Nurse ID - RAHMABASI METABOLIC PANEL 2020-08-28 07:01:00 [...] S 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 Transport Nurse ID - [id number] ID - YSUV97Nvidqaas ID - TLVJ36Zatfxoff ID - BWKD84Ovrcbfyj ID - JKIX64Rrkrlxkm ID - ZUDB24Eaileief ID - CCJF28Liaieeog ID - FNOQ39Wgjnzyeu ID - HCEP70Etjvmetk ID - VEER45Qpoxyynt ID - XGGS62Iueqlzmd ID - CWCT49Qadjxsgw ID - [id number] W/PLT COUNT & AUTO [id number] 06:29:00 Test Item Value Reference Range Interpretation [...] PERCENT (BEAKER) (test code = 2801) Prothrombin time/XQH1660-01-03 02:15:00 Test Item Value Reference Interpretation Comments [...] valves. Lab Interpretation Abnormal (test code = 68438-8) [facility]PROTHROMBIN TIME/[id number] 02:15:00 Test Item Value Reference Range Interpretation Comments PROTIME (BEAKER) 12.4 seconds 9.3-12.0 H Final Infor mation (test code = 759) (Auto Outp ut) INR (BEAKER) (test 1.12 See_Comment Final Inf ormation code = 370) (Auto Output) [Automated mess age] The system [employer] generated this result transmitted ref erence range: <=5.90. The reference range was not used to int erpret this result as normal/abnormal . RECOMMENDED COUMADIN/WARFARIN INR THERAPY RANGESSTANDARD DOSE: 2.0 - 3.0 Includes: PROPHYLAXIS forvenous thrombosis, systemic embolization; TREATMENT for venous thrombosis and/or pulmonary embolus.HIGH RISK: Target INR is 2.5-3.5 for patients with mechanical heart valves.COMPREHENSIVE METABOLIC [id number] 02:11:00 Test Item Value Reference Range Interpretation [...] S 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 Transport Nurse ID - KLCT87Mquqxprk ID - GQHN43Htfoktdp ID - XYAQ76Uchfusvq ID - KQWQ03Ikcvlpez ID - JCRN09Piappxzm ID - BNGL84Dmlzycya ID - JOLR30Itstgzzx ID - XWJH00Fhagveiu ID - APEE97Cyjlxyod ID - VETA80DYMUY NRCQC0293-02-06 02:10:00 Test Item Value Reference Range Interpretation Comments TRIGLYCERIDES (BEAKER) (test code = 116 mg/dL 540) CHOLESTEROL (RPX CorporationAKER) (test code = 84 mg/dL 631) HDL CHOLESTEROL (BEAKER) (test code 23 mg/dL = 976) LDL CHOLESTEROL CALCULATED (RPX CorporationAKER) 38 mg/dL (test code = 633) Triglyceride Reference Range: Low Risk <150 Borderline 150-199 High Risk 200-499 Very High Risk >=500Cholesterol Reference Range: Low Risk <200 Borderline 200-239 High Risk >240HDL Cholesterol Reference Range: Low Risk >=60 High Risk <40LDL Cholesterol Reference Range: Optimal <100 Near Optimal 100-129 Borderline 130-159 High 160-189 Very High >=190 Transport Nurse ID - BHVV84Ppzalyhy ID - VFBY95Gwqozgvk ID - [id number] Urinalysis w/Microscopic + Reflex to [id number] 02:09:00 Test Item Value Reference Range Interpretation Comments Color, UA (test code = Red 5778-6) Clarity, UA (test code Turbid = 5767-9) Specific [place], UA 1.020 1.001-1.035 (test code = 5811-5) pH, UA (test code = 8.5 5.0-8.0 H 5803-2) Protein, UA (test code >=300 mg/dL Negative A = 57360-8) Glucose, UA (test code 100 mg/dL Negative A = 365) Ketones, UA (test code 15 mg/dL Negative A = 2514-8) Bilirubin, UA (test Positive Negative A code = 58072-7) Blood, UA (test code = Large Negative A 61831-7) Nitrite, UA (test code Positive Negative A = 5802-4) Leukocytes, UA (test Large Negative A code = 5799-2) Urobilinogen, UA (test >=8.0 0.2-1 H code = 65110-7) Bacteria, UA (test code Moderate = 45086-5) RBC, UA (test code = >100 See_Comment [Autom ated 799-7) message] The sy stem which generated this result transmitted reference range : /HPF. The refer ence range was not u sed to interpret th is result as normal/abnormal . WBC, UA (test code = 10-20 See_Comment [Autom ated 54890-9) message] The sy stem which generated this result transmitted reference range : /HPF. The refer ence range was not u sed to interpret th is result as normal/abnormal . SQUAMOUS EPITHELIAL 5-10 See_Comment [Automa radha (test code = 37384-5) messag e] The system which generated this result transmitted reference range : /HPF. The refer ence range was not u sed to interpret th is result as normal/abnormal . Specimen Source (test code = 2795) Lab Interpretation Abnormal (test code = 32795-2) [facility]/ REFLEX URINE [id number] 02:09:00 Test Item Value Reference Range Interpretation [...] SOURCE(BEAKER) (test code = 2795) Hepatic function [id number] 02:07:00 Test Item Value Reference Range Interpretation Comments Protein, Total (test 6.5 See_Comment [Autom ated code = 2885-2) message] The system which generated this result transmit radha reference range : 6.0 - 8.5 gm/dL . The reference range was not u sed to interpret th is result as normal/abnormal . Albumin (test code = 3.1 g/dL 3.5-5 L 64650-0) Total Bilirubin (test 0.5 mg/dL 0.1-1.2 code = 1975-2) Bilirubin, Direct 0.3 mg/dL 0-0.4 (test code = 1968-7) Alkaline Phosphatase 56 U/L 30-115 (test code = 6768-6) AST (test code = 35 U/L 5-40 1920-8) ALT (test code = 30 U/L 5-50 1742-6) ТАТЬЯНА (test code = ТАТЬЯНА) Transport Nurse ID - [id number] ID - TNWQ80Isnpiiyu ID - SSHB64Qouoxmor ID - GFUT10Qznpitfo ID - NIOZ39Ujrlkxgl ID - VQNI52Dtlmrtot ID - [id number] Lab Interpretation Abnormal (test code = 34431-8) [facility] [id number] 02:07:00 Test Item Value Reference Range Interpretation [...] (test code = 30 U/L 5-50 347) Transport Nurse ID - TKLE32Iasysrip ID - KDFY17Bvvbgwsm ID - PTQW21Qrmpitrv ID - LLKO89Iiyamifv ID - BQWM36Cgnvpdkb ID - LQVZ13Hylnhblf ID - IEEN04Gtrofewnwx A1c 2020-08-28 01:48:00 Test Item Value Reference Range Interpretation Comments Hemoglobin A1C (test code 4.8 % 4.3-6.1 = 4548-4) ТАТЬЯНА (test code = ТАТЬЯНА) Transport Nurse ID - [id number] Lab Interpretation (test Normal code = 09607-2) [facility]MO[facility] [id number] 01:48:00 Test Item Value Reference Range Interpretation Comments HEMOGLOBIN A1C (BEAKER) (test code = 4.8 % 4.3-6.1 368) Transport Nurse ID - JBGI69IENBORQEV6900-16-49 01:42:00 Test Item Value Reference Range Interpretation Comments MAGNESIUM (BEAKER) (test code = 2.2 mg/dL 1.5-3.0 627) Transport Nurse ID - JYLF60Iaguyvzd ID - HXLI48Sgaogflq ID - DJAE72Ilcxrawj ID - ZRES04 [id number] 01:39:00 Test Item Value Reference Range Interpretation Comments PHOSPHORUS (BEAKER) (test code = 5.0 mg/dL 2.5-4.5 H 604) Transport Nurse ID - [id number] W/PLT COUNT & AUTO [id number] 01:37:00 Test Item Value Reference Range Interpretation [...] H PERCENT (BEAKER) (test code = 2801) RON-[id number] 00:00:00Ordered by an unspecified provider.[facility]ena[facility]2021-[facility] 14:11:47Rafael Blas CRNA 07/29/2020 8:12 AMAirway Date/Time: [...] Number of Attempts at Approach: [facility] yvepvis4611-37-40 13:20:20 Test Item Value Reference Range Interpretation Comments Potassium, syringe See_Comment [Automat ed message] The (test code = 2007) system [facility] generated this result tra nsmitted reference range : 3.5 - 5.0 mEq/L. The refe rence range was not used to interpret this result as normal/abnormal . [facility] qualitative [id number] 04:42:40 Test Item Value Reference Range Interpretation Comments Interpretation (test code = 2708270) COVID-19 qualitative RT-PCR Not-Detected Not-Detected result (test code = 61553-6) COVID-19 qualitative RT-PCR See link below for (test code = 7070) PDF Lab Report [facility] Pre/Post [id number] 00:59:42 Test Item Value Reference Range Interpretation Comments Ventricular rate (test code = 253) Atrial rate (test code = 255) FL interval (test code = 266) QRSD interval [...] of 08-JUL-2014 11:47,-No significant change was found- [facility] RNA [Presence] in Respiratory specimen by MADYSON with probe [id number] 22:41:47 Test Item Value Reference Range Interpretation Comments SARS-CoV-2 (COVID-19) RNA Not detected Not-Detected [Presence] in Respiratory specimen by MADYSON with probe detection (test code = 95665-0) TISSUE [id number] 11:07:00Surgical Pathology Report Case: [id number] Authorizing Provider: Bin Murray, Collected: 02/12/2020 09:33 AM Ordering Location: [facility] Received: 02/12/2020 10:58 AM PERIOPERATIVE SERVICES Pathologist: Carlos Betancourt MD Specimen: Carotid, Left, LEFT CAROTID PLAQUE ARTERY, LEFT CAROTID, ENDARTERECTOMY:CALCIFIC ATHEROSCLEROTIC PLAQUE Signing Pathologist Direct Phone Line: [phone] signed by Carlos Betancourt MD on 02/17/2020 at 11:07 [id number]; [id number] carotid stenosis Carotid, LeftA. Received fresh labeled with the patient's name, medical record number and "parotid, left" is a previously incised portion of yellow plaque measuring 1.6 cm in length and 0.8 cm in diameter. Specimen is serially sectioned to reveal calcifications measuring up to 0.2 cm in thickness. Platform Loader sections are submitted in A1, following decalcification.SATISH [place], KRIS (ASCP)PerformedHEPATITIS B SURFACE [id number] 14:11:00 Test Item Value Reference Range Interpretation Comments HEPATITIS B SURFACE ANTIGEN (2) Nonreactive Nonreactive (ALCIDESAKER) (test code = 2585) Specimen is considered negative for HBsAg.POCT-GLUCOSE [id number] 13:03:00 Test Item Value Reference Range Interpretation Comments POC-GLUCOSE METER 83 mg/dL 70-110 : TESTED A T [facility] 67[address] (TANA) (test code = [place], 1538) [address]: Transport Nurse/Techni justus ID = [id number] for JOIE ROE SAIC-[id number] 06:30:00 Test Item Value Reference Range Interpretation Comments ACTIVATED CLOTTING TIME 235 sec : 74 -137 seconds, (TANA) (test code = Samia ne: TESTED AT 441) [facility] [address] [facility], 770 30: Transport Nurse/Techni justus ID = [id number] for DON FARLEY BASIC METABOLIC [id number] 06:01:00 Test Item Value Reference Range Interpretation [...] S 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 Transport Nurse ID - LIAM LPOCT-GLUCOSE [id number] 06:00:00 Test Item Value Reference Range Interpretation Comments POC-GLUCOSE METER 94 mg/dL 70-110 : TESTED A T [facility] 67[address] (BEAKER) (test code = [facility], 1538) [address]: Transport Nurse/Techni justus ID = [id number] for Aren Cheatham [id number] 05:49:00 Test Item Value Reference Range Interpretation Comments MAGNESIUM (BEAKER) (test code = 1.9 mg/dL 1.6-2.6 627) Transport Nurse ID - LIAM [id number] 05:31:00 Test Item Value Reference Range Interpretation Comments CORTISOL, TOTAL (BEAKER) (test code 8.3 ug/dL 3.7-19.4 = 2755) Transport Nurse ID - JEAN CLAUDEASICBC (HEMOGRAM ONLY)2020-02-13 03:06:00 [...] (test code = 413) TSH/FREE T4 IF [id number] 02:45:00 Test Item Value Reference Range Interpretation Comments THYROID STIMULATING HORMONE 4.682 uIU/mL 0.350-4.940 (BEAKER) (test code = 772) Transport Nurse ID - PIAYA LPOCT-GLUCOSE [id number] 00:32:00 Test Item Value Reference Range Interpretation Comments POC-GLUCOSE METER 82 mg/dL 70-110 : [facility] (BEAKER) (test code = [place], 1538) [address]: Transport Nurse/Techni justus ID = [id number] for Aren Cheatham BLOOD GAS, [id number] 18:26:00 Test Item Value Reference Range Interpretation [...] code = 1819) 21.0 % COMPREHENSIVE METABOLIC [id number] 18:16:00 Test Item Value Reference Range Interpretation [...] S 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 Transport Nurse ID - BGZIYMUXVIXI2389-16-62 18:14:00 Test Item Value Reference Range Interpretation Comments MAGNESIUM (BEAKER) (test code = 1.8 mg/dL 1.6-2.6 627) Transport Nurse ID - NTPCALCIUM, [id number] 18:02:00 Test Item Value Reference Range Interpretation Comments CALCIUM IONIZED (BEAKER) (test 1.14 mmol/L 1.12-1.27 code = 698) PH, BLOOD (BEAKER) (test code = 7.32 1810) [id number] 18:01:00 Test Item Value Reference Range Interpretation [...] (BEAKER) (test code = 413) BLOOD GAS, [id number] 10:37:00 Test Item Value Reference Range Interpretation [...] 1819) 60.0 % HGB/HCT (H&H) - STAT [id number] 10:37:00 Test Item Value Reference Range Interpretation Comments HEMOGLOBIN (BEAKER) (test code = 9.2 g/dL 13.0-16.8 L 410) HEMATOCRIT (BEAKER) (test code = 27.0 % 40.0-50.0 L 411) GLUCOSE-STAT [id number] 10:36:00 Test Item Value Reference Range Interpretation Comments GLUCOSE RANDOM (BEAKER) (test code 104 mg/dL 70-110 = 652) SODIUM NA-STAT [id number] 10:36:00 Test Item Value Reference Range Interpretation Comments SODIUM (BEAKER) (test code = 381) 137 meq/L 136-145 POTASSIUM-STAT [id number] 10:36:00 Test Item Value Reference Range Interpretation Comments POTASSIUM (BEAKER) (test code = 4.0 meq/L 3.6-5.5 379) SARS-COV2/RT-PCR ([facility])2020-02-12 08:04:00 Test Item Value Reference Range Interpretation Comments SARS-COV2/RT-PCR (test code Negative Not Detected, Negative, = 4217100) See external report for linked test SARS-COV-2 PERFORMING LAB [facility] (test code = 2450758) Negative results do not preclude SARS-CoV-2 infection [...] of the Act.Fact Sheet for Healthcare Pro viders:https://www.IVDesk.[employer]/Documents/Xpert%20Xpress%20SARS%20CoV-2/Fact%20Sh eets/3023802%15ZYZJ-EWH-5%20HEALTHCARE%20PROVIDERS%20FACT%20SHEET.pdfFact Sheet for Healthcare Patients:https://www.Mentegram id.[employer]/Documents/Xpert%20Xpress%20SARS%20CoV-2/Fact%20Sheets/3023801%20SARS-COV -2%20PATIENT%20FACT%20SHEET.pdfPerforming Laboratory:[facility], [place] [address]LGJAN METABOLIC [id number] 07:28:00 Test Item Value Reference Range Interpretation [...] S 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 Transport Nurse ID - NTPCBC W/PLT COUNT & AUTO [id number] 07:21:00 Test Item Value Reference Range Interpretation [...] code = 2801) HGB/HCT (H&H) - STAT [id number] 06:45:00 Test Item Value Reference Range Interpretation Comments HEMOGLOBIN (BEAKER) (test code = 11.3 g/dL 13.0-16.8 L 410) HEMATOCRIT (BEAKER) (test code = 33.0 % 40.0-50.0 L 411) GLUCOSE-STAT [id number] 06:42:00 Test Item Value Reference Range Interpretation Comments GLUCOSE RANDOM (BEAKER) (test code 103 mg/dL 70-110 = 652) POTASSIUM-STAT [id number] 06:42:00 Test Item Value Reference Range Interpretation Comments POTASSIUM (BEAKER) (test code = 4.8 meq/L 3.6-5.5 379) POCT-GLUCOSE [id number] 05:51:00 Test Item Value Reference Range Interpretation Comments POC-GLUCOSE METER 108 mg/dL 70-110 : TESTED A T [facility] [address] (BEAKER) (test code [facility], = 1538) [address]: Transport Nurse/Techni justus ID = [id number] for JORD AN, LACRYSTAL
[2021-12-07 11:49] LABS: Absolute Lymphocytes (CBC) 1.3 K/uL (0.7-4.9); Hematocrit 16.7 % (39.6-49.0); MCV 88.2 fL (80-100); MPV 7.6 fL (7.6-11.3); RBC Red Blood Cell Count 1.89 M/uL (4.33-5.43)
--- NOTE | 2021-12-07 12:07 | RAD REPORT ---
EXAM DESCRIPTION: RAD - Chest Single View - 12/07/2021 11:53 am CLINICAL HISTORY: weakness, shortness of breath COMPARISON: Portable 11/16/2021 TECHNIQUE: AP portable chest image was obtained 12/07/2021 11:53 am . FINDINGS: Lung volumes are low. Prominent interstitial opacification is present mostly or entirely b aseline. Severity of the patient's chronic interstitial disease could mask superimposed interstitial edema or infiltrate. No dense mass or consolidation. No hilar mass or adenopathy identifiable. Trachea is in midline. Heart and vasculature are normal. No measurable pleural effusion and no pneumo thorax. No acute bony abnormality seen. No acute aortic findings suspected. IMPRESSION: Prominent chronic interstitial lung disease without focal mass or consolidation. . Severity of chronic disease could mask early interstitial edema or infiltrate.
[2021-12-07 12:10] LABS: Potassium 4.4 mmol/L (3.5-5.1); Troponin High Sensitivity 17.9 pg/mL (<58.9)
--- NOTE | 2021-12-07 13:17 | RAD REPORT ---
EXAM DESCRIPTION: CT - Head Brain Wo Cont - 12/07/2021 1:10 pm CLINICAL HISTORY: Transient ischemic attack (TIA) COMPARISON: Head Brain Wo Cont dated 09/09/2021; Head Brain Wo Cont dated 07/31/2021 TECHNIQUE: All CT scans are performed using dose optimization technique as appropriate and may inclu de automated exposure control or mA/KV adjustment according to patient size. FINDINGS: No intracranial hemorrhage, hydrocephalus or extra-axial fluid collection.No areas of brai n edema or evidence of midline shift. Remote right cervantes radiata infarct. Mild chronic small vessel ischemic changes. The paranasal sinuses and mastoids are clear. The calvarium is intact. IMPRESSION: No acute intracranial abnormality.
[2021-12-07] MEDS ORDERED: HYDROCODONE/APAP 5/325 MG TAB PO PRN (13:22)
[2021-12-07] MEDS ORDERED: NA CHLORIDE 0.9% 250 ML ONE ×2 (15:05→23:55)
[2021-12-07] MEDS ORDERED: ACETAMINOPHEN 500 MG TAB PO PRN (15:41)
[2021-12-07] MEDS ORDERED: ONDANSETRON 4 MG/2 ML VIAL IV PRN (15:41)
[2021-12-07] MEDS ORDERED: HOME MED 1 EA UNK [ALBUTEROL INHALER 60 PUFF/8 GM] IH PRN (15:56)
[2021-12-07] MEDS ORDERED: SODIUM CHLORIDE 0.9% 10ML INJ IV PRN (15:57)
--- NOTE | 2021-12-07 16:26 | EDPHYS ---
Physician Documentation [facility] Name: Robbie Kelly Age: 76 yrs Sex: Male : 1945 Arrival Date: 12/07/2021 Time: 11:17 Bed 2 Private MD: ED Physician Marino Hadley HPI: 12/07 11:38 This 76 yrs old Male presents to ER via EMS with complaints of General Weakness - kdr Patient scheduled for dialysis today, he goes M-W-, patient was to weak to go today and he reports dark stools as well with hx of gi bleed and abd aortic aneurysm.. 11:38 Patient is brought to the ED EMS. Patient was sitting at home on the porch when he kdr became weak. His states that the patient was sitting on the porch and trying to hold a cup of coffee but became weak and spilled the coffee on himself. He also lost control of his bladder. Did not lose consciousness and did not have any other neurologic manifestations. In general the patient been feeling poorly since he left dialysis on Sunday. He is scheduled for dialysis at 3:00 today. Patient is alert and oriented and responding appropriately. He does not appear in any acute distress. He is nontoxic and not requiring any immediate intervention.. Severity of symptoms: At their worst the symptoms were mild moderate just prior to arrival. The patient has experienced similar episodes in the past, a few times. The patient has been recently seen by a physician: The patient was seen by Dr. Browne yesterday in his office. The purpose of the appointment was to get renewal of his home O2. Patient otherwise was stable and at that time did not require admission. Historical: - Allergies: 11:23 No Known Allergies; jg9 - Home Meds: 11:50 amiodarone 400 mg Oral tab 1 tab once daily [Active]; atorvastatin 40 mg Oral tab 1 tab jg9 once daily [Active]; Eliquis 2.5 mg Oral tab 1 tab 2 times per day [Active]; furosemide 20 mg Oral tab 1 tab 2 times per day [Active]; hydroxyzine HCl 25 mg Oral tab 1 tab 3 times per day [Active]; levothyroxine 88 mcg cap 1 cap once daily [Active]; Aileen-Shari 0.8 mg Oral tab [Active]; sevelamer carbonate 800 mg Oral tab 1 tab 3 times per day [Active]; - PMHx: 11:23 Anemia; Bladder CA; COPD; Dialysis; M,W,F; Hypertension; Hypothyroidism; POLYCYSTIC jg9 KIDNEY DISEASE; RENAL FAILURE; - PSHx: 11:50 L arm dialysis access; jg9 - Immunization history:: Adult Immunizations up to date. - Social history:: Smoking status: Patient/guardian denies using tobacco, the patient reports quitting approximately 30 years ago. ROS: 11:38 Constitutional: Negative for fever, chills, and weight loss, Eyes: Negative for injury, kdr pain, redness, and discharge, ENT: Negative for injury, pain, and discharge, Neck: Negative for injury, pain, and swelling, Cardiovascular: Negative for chest pain, palpitations, and edema, Respiratory: Negative for shortness of breath, cough, wheezing, and pleuritic chest pain, Abdomen/GI: Negative for abdominal pain, nausea, vomiting, diarrhea, and constipation, Back: Negative for injury and pain, MS/Extremity: Negative for injury and deformity, Skin: Negative for injury, rash, and discoloration, Psych: Negative for depression, anxiety, suicide ideation, homicidal ideation, and hallucinations, Allergy/Immunology: Negative for hives, rash, and allergies, Endocrine: Negative for neck swelling, polydipsia, polyuria, polyphagia, and marked weight changes, Hematologic/Lymphatic: Negative for swollen nodes, abnormal bleeding, and unusual bruising. 11:38 : Positive for urinary symptoms, Urinary incontinence, Negative for injury or acute deformity. 11:38 Neuro: Positive for weakness, Negative for altered mental status, dizziness, gait disturbance, headache, hearing loss, Patient was having difficulty holding up a coffee cup. Exam: 11:37 ECG was reviewed by the Attending Physician. kdr 11:38 Constitutional: This is a well developed, well nourished patient who is awake, alert, kdr and in no acute distress. Head/Face: Normocephalic, atraumatic. Eyes: Pupils equal round and reactive to light, extra-ocular motions intact. Lids and lashes normal. Conjunctiva and sclera are non-icteric and not injected. Cornea within normal limits. Periorbital areas with no swelling, redness, or edema. Neck: Trachea midline, no thyromegaly or masses palpated, and no cervical lymphadenopathy. Supple, full range of motion without nuchal rigidity, or vertebral point tenderness. No Meningismus. Chest/axilla: Normal chest wall appearance and motion. Nontender with no deformity. No lesions are appreciated. Cardiovascular: Regular rate and rhythm with a normal S1 and S2. No gallops, murmurs, or rubs. Normal PMI, no JVD. No pulse deficits. Respiratory: Lungs have equal breath sounds bilaterally, clear to auscultation and percussion. No rales, rhonchi or wheezes noted. No increased work of breathing, no retractions or nasal flaring. Abdomen/GI: Soft, non-tender, with normal bowel sounds. No distension or tympany. No guarding or rebound. No evidence of tenderness throughout. Back: No spinal tenderness. No costovertebral tenderness. Full range of motion. Skin: Warm, dry with normal turgor. Normal color with no rashes, no lesions, and no evidence of cellulitis. Neuro: Awake and alert, GCS 15, oriented to person, place, time, and situation. Cranial nerves II-XII grossly intact. Motor strength 5/5 in all extremities. Sensory grossly intact. Cerebellar exam normal. Normal gait. Psych: Awake, alert, with orientation to person, place and time. Behavior, mood, and affect are within normal limits. 11:38 Musculoskeletal/extremity: Extremities: grossly normal except: noted in the left bicep and left tricep: Patient has dialysis access on his left upper arm which appears to be intact. Vital Signs: 11:00 BP 114 / 51; Pulse 73; Resp 18 S; Temp 97.8(A); Pulse Ox 96% 3 lpm ; Weight 79.38 kg j9 (R); Height 5 ft. 10 in. (177.80 cm) (R); 11:45 BP 103 / 41; Pulse 75; Resp 20 S; Pulse Ox 98% on R/A; jg9 12:00 BP 105 / 40; Pulse 76; Resp 18 S; Pulse Ox 100% on 3 lpm NC; jg9 12:45 BP 99 / 42; Pulse 73; Resp 17; Pulse Ox 99% on 3 lpm NC; jg9 13:00 BP 106 / 48; Pulse 74; Resp 17 S; Pulse Ox 100% on 3 lpm NC; jg9 14:00 BP 98 / 45; Pulse 76; Resp 17 S; Pulse Ox 95% on 3 lpm NC; 9 15:00 BP 106 / 45; Pulse 76; Resp 17; Temp 98(O); Pulse Ox 100% on 3 lpm NC; 9 11:00 Body Mass Index 25.11 (79.38 kg, 177.80 cm) 9 MDM: 16:25 Patient medically screened. [facility] 16:25 Data reviewed: vital signs, nurses notes, lab test result(s), radiologic studies. kdr Counseling: I had a detailed discussion with the patient and/or guardian regarding: the historical points, exam findings, and any diagnostic results supporting the discharge/admit diagnosis, lab results, radiology results, the need for outpatient follow up. 12/07 11:19 Order name: Basic Metabolic Panel; Complete Time: 12:34 [facility] 12/07 11:19 Order name: CBC with Diff; Complete Time: 12:34 [facility] 12/07 11:19 Order name: Troponin HS; Complete Time: 12:34 [facility] 12/07 12:48 Order name: Type And Screen [facility] 12/07 13:31 Order name: COVID-19 SARS RT PCR (Document "Date of Onset" if Symptomatic) bd 12/07 11:19 Order name: XRAY Chest (1 view); Complete Time: 12:34 [facility] 12/07 11:19 Order name: EKG; Complete Time: 11:20 kdr 12/07 11:19 Order name: Cardiac monitoring; Complete Time: 12:13 [facility] 12/07 11:19 Order name: EKG - Nurse/Tech; Complete Time: 12:13 [facility] 12/07 11:19 Order name: IV Saline Lock; Complete Time: 12:13 [facility] 12/07 11:19 Order name: Labs collected and sent; Complete Time: 12:13 [facility] 12/07 12:52 Order name: CT Head Brain wo Cont; Complete Time: 13:45 [facility] 12/07 13:26 Order name: Renal EDMS 12/07 11:19 Order name: O2 Per Protocol; Complete Time: 12:13 [facility] 12/07 11:19 Order name: O2 Sat Monitoring; Complete Time: 12:13 kdr EC:37 Rate is 69 beats/min. Rhythm is irregular, Sinus arrythmia with No ectopy. QRS [place] is kdr Normal. [place] interval is normal. QRS interval is normal. QT interval is normal. Clinical impression: NSR w/ Non-specific ST/T Changes. Administered Medications: No medications were administered Disposition Summary: 12/07/21 16:25 Hospitalization Ordered Hospitalization Status: Inpatient Admission kdr Provider: Jorge Wright Location: Telemetry/MedSurg (Inpatient) kdr Condition: Fair kdr Problem: new kdr Symptoms: have improved kdr Bed/Room Type: Standard kdr Room Assignment: 222(12/07/21 16:28) bd Diagnosis - Weakness kdr - Anemia, unspecified kdr - GI Bleed/ Gastrointestinal hemorrhage, unspecified kdr Forms: - Medication Reconciliation Form kdr - SBAR form kdr Signatures: Dispatcher [employer] EDMS Nahomy Will bd Marino Hadley MD MD kdr Melody Root RN RN jg9 Corrections: (The following items were deleted from the chart) 16:28 16:25 kdr bd
--- NOTE | 2021-12-07 16:26 | ER ---
Nurse's Notes [facility] Name: Robbie Kelly Age: 76 yrs Sex: Male : 1945 Arrival Date: 12/07/2021 Time: 11:17 Bed 2 Private MD: Diagnosis: Weakness;Anemia, unspecified;GI Bleed/ Gastrointestinal hemorrhage, unspecified Presentation: 12/07 11:00 Chief complaint: EMS states: Patient was scheduled for dialysis but missed, he reports jg9 dark stools and weakness. Coronavirus screen: Vaccine status: Patient reports receiving the 2nd dose of the covid vaccine. patient has been vaccinated x2 plus booster. Ebola Screen: Patient negative for fever greater than or equal to 101.5 degrees Fahrenheit, and additional compatible Ebola Virus Disease symptoms Patient denies exposure to infectious person. Patient denies travel to an Ebola-affected area in the 21 days before illness onset. Initial Sepsis Screen: Does the patient meet any 2 criteria? No. Patient's initial sepsis screen is negative. Does the patient have a suspected source of infection? No. Patient's initial sepsis screen is negative. Risk Assessment: Do you want to hurt yourself or someone else? Patient reports no desire to harm self or others. Onset of symptoms is unknown. 11:00 Method Of Arrival: EMS: [email or web address] jg9 11:00 Acuity: DADA 3 jg9 Triage Assessment: 11:00 General: Appears in no apparent distress. Behavior is calm, cooperative. Pain: jg9 Complains of pain in back-lower Alleviated by repositioning. EENT: No deficits noted. Neuro: No deficits noted. Neuro: No deficits noted. Reports weakness generalized weakness. Cardiovascular: No deficits noted. Respiratory: No deficits noted. GI: Reports bloody stool. : No deficits noted. Derm: left arm fistula. Musculoskeletal: No deficits noted. Historical: - Allergies: 11:23 No Known Allergies; jg9 - Home Meds: 11:50 amiodarone 400 mg Oral tab 1 tab once daily [Active]; atorvastatin 40 mg Oral tab 1 tab jg9 once daily [Active]; Eliquis 2.5 mg Oral tab 1 tab 2 times per day [Active]; furosemide 20 mg Oral tab 1 tab 2 times per day [Active]; hydroxyzine HCl 25 mg Oral tab 1 tab 3 times per day [Active]; levothyroxine 88 mcg cap 1 cap once daily [Active]; Aileen-Shari 0.8 mg Oral tab [Active]; sevelamer carbonate 800 mg Oral tab 1 tab 3 times per day [Active]; - PMHx: 11:23 Anemia; Bladder CA; COPD; Dialysis; M,W,F; Hypertension; Hypothyroidism; POLYCYSTIC jg9 KIDNEY DISEASE; RENAL FAILURE; - PSHx: 11:50 L arm dialysis access; jg9 - Immunization history:: Adult Immunizations up to date. - Social history:: Smoking status: Patient/guardian denies using tobacco, the patient reports quitting approximately 30 years ago. Screenin:25 Abuse screen: Denies threats or abuse. Denies injuries from another. Nutritional jg9 screening: No deficits noted. Tuberculosis screening: No symptoms or risk factors identified. Fall Risk None identified. Assessment: 11:51 Reassessment: No changes from previously documented assessment. Patient and/or family jg9 updated on plan of care and expected duration. Pain level reassessed. Patient is alert, oriented x 3, equal unlabored respirations, skin warm/dry/pink. 13:00 Reassessment: No changes from previously documented assessment. Patient and/or family jg9 updated on plan of care and expected duration. Pain level reassessed. Patient is alert, oriented x 3, equal unlabored respirations, skin warm/dry/pink. 14:00 Reassessment: No changes from previously documented assessment. Patient and/or family jg9 updated on plan of care and expected duration. Pain level reassessed. Patient is alert, oriented x 3, equal unlabored respirations, skin warm/dry/pink. 15:00 Reassessment: No changes from previously documented assessment. Patient and/or family jg9 updated on plan of care and expected duration. Pain level reassessed. Patient is alert, oriented x 3, equal unlabored respirations, skin warm/dry/pink. 16:45 Reassessment: blood administration complete, patient is awake, alert, and oriented, jg9 patient reports that is feeling better, vss. Vital Signs: 11:00 BP 114 / 51; Pulse 73; Resp 18 S; Temp 97.8(A); Pulse Ox 96% 3 lpm ; Weight 79.38 kg jg9 (R); Height 5 ft. 10 in. (177.80 cm) (R); 11:45 BP 103 / 41; Pulse 75; Resp 20 S; Pulse Ox 98% on R/A; jg9 12:00 BP 105 / 40; Pulse 76; Resp 18 S; Pulse Ox 100% on 3 lpm NC; jg9 12:45 BP 99 / 42; Pulse 73; Resp 17; Pulse Ox 99% on 3 lpm NC; jg9 13:00 BP 106 / 48; Pulse 74; Resp 17 S; Pulse Ox 100% on 3 lpm NC; jg9 14:00 BP 98 / 45; Pulse 76; Resp 17 S; Pulse Ox 95% on 3 lpm NC; jg9 15:00 BP 106 / 45; Pulse 76; Resp 17; Temp 98(O); Pulse Ox 100% on 3 lpm NC; jg9 11:00 Body Mass Index 25.11 (79.38 kg, 177.80 cm) jg9 ED Course: 11:17 Patient arrived in ED. jg9 11:18 Marino Hadley MD is Attending Physician. kdr 11:18 Melody Root RN is Primary Nurse. jg9 11:23 Triage completed. jg9 11:25 Arm band placed on right wrist. jg9 11:28 Patient has correct armband on for positive identification. Bed in low position. Call jg9 light in reach. Side rails up X 1. 11:30 Client placed on continuous cardiac and pulse oximetry monitoring. NIBP monitoring jl7 applied. 11:30 Warm blanket given. jl7 11:30 Inserted saline lock: 20 gauge in right forearm, using aseptic technique. Blood jg9 collected. 11:54 XRAY Chest (1 view) In Process Unspecified. EDMS 13:11 CT Head Brain wo Cont In Process Unspecified. EDMS 16:24 Jorge Wright is Hospitalizing Provider. kdr 17:25 No provider procedures requiring assistance completed. Patient admitted, IV remains in jl7 place. intact, No redness/swelling at site. Administered Medications: No medications were administered Medication: 11:25 VIS not applicable for this client. jg9 Outcome: 16:25 Decision to Hospitalize by Provider. kdr 17:27 Admitted to Med/surg accompanied by dg, via stretcher, room 222, with chart. jl7 17:27 Condition: stable 17:27 Discharge instructions given to patient, family, Instructed on the need for admit, Demonstrated understanding of instructions. 17:27 Patient left the ED. jl7 Signatures: Dispatcher [employer] EDMarino Khan MD MD kdr Maik Govea RN RN jl7 Melody Root RN RN jg9 Corrections: (The following items were deleted from the chart) 11:56 11:00 BP 114 / 51; Pulse 73bpm; Resp 18bpm; Spontaneous; Pulse Ox 96% Nasal Cannula; jg9 Temp 97.8F Axillary; 79.38 kg Reported; Height 5 ft. 10 in. Reported; BMI: 25.1; jg9
--- NOTE | 2021-12-07 16:30 | P.HP ---
Certification for Inpatient Patient admitted to: Inpatient With expected LOS: >2 Midnights Patient will require the following post-hospital care: None Practitioner: I am a practitioner with admitting privileges, knowledge of patient current condition, hospital course, and medical plan of care. Services: Services provided to patient in accordance with Admission requirements found in Title 42 Section 412.3 of the Code of Federal Regulations Patient History Date of Service: 12/07/21 Reason for admission: Generalized weakness. History of Present Illness: Patient is a 76-year-old male with a past medical history significant for hypothyroidism, hypertension, ESRD, COPD, bladder cancer, anemia, abdominal aortic aneurysm who presents with complaint of generalized weakness that has been ongoing for quite some time now. Patient is a poor historian and unable to provide accurate history. Patient reported that he is also having bilateral lower extremity numbness as well as dark stools that has been ongoing for the past couple of weeks. Patient reported that he had nausea and vomiting episodes yesterday. Patient reports left lower quadrant abdominal pain rated as 7/10 in severity and described as aching in quality. Spouse reported that patient was sitting down today and had trouble getting out of the chair because he was too weak. Patient was also noted to have trouble holding a cup of coffee today eventually spilling the coffee on himself as well as losing control of his bladder. Patient reports associated signs and symptoms of fatigue. Patient denies any other signs or symptoms. Symptoms are aggravated or relieved by nothing. Of note, spouse reported that patient had 2 units of PRBC transfusion at another facility 8 days ago. Patient decided to present to the hospital for medical evaluation. Allergies No Known Allergies Allergy (Verified 06/02/21 00:46) Home Medications: Levothyroxine [Synthroid*] 88 mcg PO DAILY 11/17/20 Atorvastatin Calcium 40 mg PO BEDTIME 02/19/21 Furosemide [Lasix] 20 mg PO BID 02/19/21 Carvedilol [Coreg] 3.125 mg PO BID 90 Days #180 tablet 02/20/21 Albuterol Inhaler [Ventolin Inhaler*] 2 puff IH Q6H PRN 06/02/21 Budesonide [Pulmicort*] 1 puff IH BID 06/02/21 hydrOXYzine HCL [Atarax*] 25 mg PO TID 06/02/21 Amiodarone HCl [Pacerone] 400 mg PO DAILY 08/01/21 Folic Acid/Vit B Complex and C [Renal-Shari Tablet] 0.8 mg PO DAILY 08/01/21 Sevelamer Carbonate [Renvela*] 800 mg PO TIDWM 08/01/21 predniSONE [Prednisone*] 10 mg PO DAILY 09/21/21 Sevelamer Carbonate [Renvela*] 800 mg PO TIDWM tablet 09/23/21 - Past Medical/Surgical History Diabetic: No -: HTN -: Hypothyroid -: polycystic kidney -: diverticulitis -: COPD -: anemia -: CKD -: bladder cancer -: ESRD/HD/MWF -: Thoracic aneurysm -: AAA repair -: Colonoscopy -: AAA repair Psychosocial/ Personal History: lives with - Family History Father -: Heart disease Mother -: Heart disease - Social History Smoking Status: Never smoker Alcohol use: No CD- Drugs: No Caffeine use: Yes Review of Systems General: Weakness, Malaise, Other (Fatigue) Eyes: Unremarkable ENT: Unremarkable Respiratory: Unremarkable Cardiovascular: Unremarkable Gastrointestinal: Nausea, Vomiting, Abdominal Pain, Melena Genitourinary: Incontinence Musculoskeletal: Unremarkable Integumentary: Unremarkable Neurological: Weakness Lymphatics: Unremarkable Physical Examination - Physical Exam General: Alert, Oriented x3, Cooperative HEENT: Normocephalic, PERRLA Neck: Supple, JVD not distended Respiratory: Clear to auscultation bilaterally Cardiovascular: Normal pulses, Regular rate/rhythm Capillary refill: <2 Seconds Gastrointestinal: Normal bowel sounds, Tenderness Musculoskeletal: No clubbing, No swelling, No erythema Integumentary: No rashes, No breakdown, No significant lesion Neurological: Normal tone, Sensation intact Lymphatics: No axilla or inguinal lymphadenopathy - Studies Laboratory Data (last 24 hrs) 12/07/21 11:35: WBC 12.6 H, Hgb 5.3 L*, Hct 16.7 L*, Plt Count 214 12/07/21 11:35: Sodium 136, Potassium 4.4, BUN 55 H, Creatinine 7.99 H*, Glucose 120 H Assessment and Plan - Plan --Gastrointestinal bleeding. Hemoglobin of 5.3. 2 units of PRBC ordered in the ER. Gastroenterology consulted. Patient placed on Protonix IV. We will continue to monitor H&H. Will await further recommendation from mushroom sorter grader. --ESRD. Nephrology consulted. Further management per superintendent warehouse. --Bladder cancer. Patient follows up with outpatient urologist. Continue supportive care. --History of abdominal aortic aneurysm. Status post AAA repair. We will keep blood pressure controlled. Continue supportive care. --Hypertension. Patient was initially hypotensive. Blood pressure now stable. Continue home medications. --Chronic respiratory failure. Patient on home O2 therapy at 2 L/min. Continue home medications. --COPD. Stable. Continue home medications. --Hypothyroidism. Continue Synthroid. --Leukocytosis. Likely reactive. Will reassess levels in a.m. --HLD. Continue statin. --DVT prophylaxis with SCDs. Discharge Plan: Home Plan to discharge in: Greater than 2 days - Advance Directives Does patient have a Living Will: Yes Does patient have a Durable POA for Healthcare: Yes - Code Status/Comfort Care Code Status Assessed: Yes Code Status: Full Code
[2021-12-07] MEDS: SEVELAMER CARBONATE 800 MG TABLET PO SCH (17:00)
[2021-12-07] MEDS: PANTOPRAZOLE 40 MG INJ IVP SCH ×2 (18:14→20:53)
[2021-12-07 19:38] LABS: Hematocrit 17.6 % (39.6-49.0)
[2021-12-07 19:56] LABS: Thyroid Stimulating Hormone 4.55 uIU/mL (0.360-3.740)
[2021-12-07] MEDS: BUDESONIDE 0.25 MG/2 ML NEB IH SCH (20:30)
[2021-12-07] MEDS: ATORVASTATIN 40 MG TAB PO SCH (20:53)
[2021-12-07] MEDS: hydrOXYzine HCL 25 MG TAB PO SCH (20:53)
[2021-12-07] MEDS: FUROSEMIDE 20 MG TABLET PO SCH (20:53)
[2021-12-07] MEDS ORDERED: DESMOPRESSIN 4 MCG/ML AMP IV ONE (21:00)
[2021-12-07] MEDS ORDERED: DESMOPRESSIN IV SCH (23:00)
[2021-12-07] MEDS ORDERED: NA CHLORIDE 0.9% IV SCH (23:00)
[2021-12-08 00:50] VITALS: BMI 21.7
[2021-12-08] MEDS: LEVOTHYROXINE SOD 0.088 MG TAB PO SCH (05:34)
[2021-12-08 07:37] LABS: Absolute Lymphocytes (CBC) 1.6 K/uL (0.7-4.9); Hematocrit 18.1 % (39.6-49.0); Lymphocytes % 15.6 % (15.3-44.8); MCV 92.9 fL (80-100); MPV 8.1 fL (7.6-11.3); RBC Red Blood Cell Count 1.95 M/uL (4.33-5.43)
[2021-12-08 07:38] LABS: ALT/SGPT < 10 U/L (12-78); AST/SGOT 12 U/L (15-37); Albumin 2.3 g/dL (3.4-5.0); Alkaline Phosphatase 42 U/L (45-117); BUN Blood Urea Nitrogen 63 mg/dL (7-18); Bicarbonate 24 mmol/L (21-32); Bilirubin Total 0.4 mg/dL (0.2-1.0); Glomerular Filtration Rate 5 ml/min (=/>90); Glucose Level 103 mg/dL (74-106); Potassium 4.7 mmol/L (3.5-5.1); Protein, Total 5.9 g/dL (6.4-8.2); Sodium Level 134 mmol/L (136-145)
[2021-12-08 07:41] LABS: Protime INR 1.34
[2021-12-08] MEDS: MULTIVITAMINS,THERAPEUT 1 TAB PO SCH (08:59)
[2021-12-08] MEDS: hydrOXYzine HCL 25 MG TAB PO SCH ×3 (08:59→22:11)
[2021-12-08] MEDS: predniSONE 20 MG TAB PO SCH (08:59)
[2021-12-08] MEDS: SEVELAMER CARBONATE 800 MG TABLET PO SCH ×3 (08:59→17:00)
[2021-12-08] MEDS ORDERED: FOLIC ACID PO SCH (09:00)
[2021-12-08] MEDS ORDERED: VIT B COMPLEX AND C PO SCH (09:00)
[2021-12-08] MEDS: AMIODARONE HCL 200 MG TAB PO SCH (09:00)
[2021-12-08] MEDS: FUROSEMIDE 20 MG TABLET PO SCH (09:00)
[2021-12-08] MEDS ORDERED: ASPIRIN 81 MG CHEWABLE TABLET PO SCH (09:00)
[2021-12-08] MEDS ORDERED: HOME MED 1 EA UNK (Amiodarone Hcl [Pacerone] 400 MG Tablet) PO SCH (09:00)
[2021-12-08] MEDS: PANTOPRAZOLE INJ 80 MG in NA CHLORIDE 0.9% 250 ML IV SCH ×2 (09:36→18:39)
[2021-12-08] MEDS ORDERED: NA CHLORIDE 0.9% 250 ML ONE (12:24)
[2021-12-08] MEDS: BUDESONIDE 0.25 MG/2 ML NEB IH SCH ×2 (13:07→19:55)
[2021-12-08] MEDS ORDERED: EPOETIN ALFA 10,000 UNIT/ML VIAL IV SCH (14:00)
--- NOTE | 2021-12-08 14:47 | CON ---
Date of Consultation: 12/08/2021 Reason For Consultation: Elevated BUN and creatinine, hyponatremia, end-stage renal disease, over volume, fluid management. 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 Huang and Dr. Zavaleta, thoracic aneurysm, AAA 5.8 cm, COPD, hypothyroidism, the patient was in his regular state of health. Apparently, last week he started feeling weak, fatigue, found to have low hemoglobin on the lab that done by the dialysis center, was sent for transfusion. The patient choose to go to [facility] as all his subspecialty are there. Apparently, they transfused him with 2 units even the patient was complaining from hematochezia, but they did not consult any GI. The patient apparently seen by Vascular for the triple aneurysm and decided not to have any intervention given the risk of his condition and given the presence of cancer. The patient started feeling weak, fatigue, losing energy with tremor yesterday, almost fell, could not get up. For that reason, EMS was called. Upon arrival to the hospital, found to have severe anemia with hemoglobin of 5.2, for that reason was admitted and we have been consulted. Over the night, we transfused 2 units, hemoglobin jumped to 6.2. The patient was given also DDAVP. The patient is still complaining from hematochezia. Past Medical History: Includes; 1. Hypertension. 2. Polycystic kidney disease. 3. COPD. 4. Hypothyroidism. 5. 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 Zavaleta and Reina, Urology. 6. AAA 5.8 cm. 7. Thoracic aneurysm. Past Surgical History: Includes AV fistula, cystoscopy, colonoscopy. Family History: Positive for CAD, polycystic kidney disease, and hypertension. Social History: Ex-smoker. Denied alcohol. Denied drug abuse. Review of Systems: Head and Neck: No red eye. No ear pain. GI: Has hematochezia. : Has hematuria. Senior Living Advisor: Not applicable. Respiratory: Has shortness of breath. Cardiovascular: Has orthopnea. Endocrine: No polydipsia. Skin: No rash. Neuro: Has weakness. Has fall. Musculoskeletal: Generalized fatigue. Physical Examination: Vital Signs: When I saw the patient; blood pressure of 100/52, pulse of 76, afebrile. Chest: Clear to auscultation. Heart: S1, S2. Systolic murmur. Abdomen: Soft, nontender. Extremity: No edema. Neurologic: Alert. No focality. Laboratory Data: Upon admission; hemoglobin 5.3, hematocrit 16.7. Today labs; WBC 10.4, H and H 6.2/18.1, platelet 144. Sodium of 134, potassium 4.7, bicarb 24, BUN 63, creatinine 9.4, GFR of 5, calcium 9.1. Current Medications: In the hospital include amiodarone, atorvastatin, Tylenol, Lasix 20 b.i.d., Renvela, pantoprazole, prednisone, hydrocodone, multivitamin. Assessment And Plan: 1. End-stage renal disease, over volume with requirement of massive blood transfusion. We will arrange for dialysis today. We will arrange for 2 units of blood transfusion with dialysis and we will follow up the patient. 2. Hyponatremia, going to be corrected with dialysis. 3. Anemia secondary to gastrointestinal losses/hematuria. We will arrange for 2 units of blood transfusion today. I am going to go ahead and start the patient on the Retacrit also and we will follow up the patient closely. 4. Hypertension, currently hypotension because of the blood loss. Hold all blood pressure medications. 5. Over volume, going to be corrected with dialysis. Time spent examining the patient [id number], reviewing the data of lab and radiology discussing the case with the patient reviewing the case with the team manager including nursing discussing the case with the hospitalist 35-minute TOM/MATTHEW Voice ID: [id number] Report ID: [id number] MARY
--- NOTE | 2021-12-08 15:30 | EKG ---
Test Date: 2021-12-07 Test Time: 11:13:24 Poultry Raiser: GABO MEASUREMENT RESULTS: Intervals: Rate: 69 NC: 202 QRSD: 118 QT: 386 QTc: 413 [place]: P: 64 NC: 202 QRS: 69 T: 124 INTERPRETIVE STATEMENTS: Normal sinus rhythm with sinus arrhythmia Nonspecific intraventricular conduction delay ST & T wave abnormality, consider lateral ischemia Abnormal ECG Compared to ECG 11/16/2021 21:54:29 Intraventricular conduction delay now present Possible ischemia now present ST (T wave) deviation still present Electronically Signed On 12-08-21 15:27:47 CDT by Urbano Rob
[2021-12-08] MEDS ORDERED: MAGNESIUM CITRATE 300 ML BOT PO SCH (19:00)
[2021-12-08] MEDS ORDERED: GOLYTELY 4000 ML PO SCH (19:00)
[2021-12-08] MEDS: ATORVASTATIN 40 MG TAB PO SCH (22:11)
[2021-12-08] MEDS: METOCLOPRAMIDE 10 MG/2mL INJ IV SCH (22:12)
--- NOTE | 2021-12-08 23:46 | P.PN ---
Subjective Date of Service: 12/08/21 Patient without any active bleeding. Hemoglobin has been stable. Spoke with GI and EGD and colonoscopy in the morning. Review of Systems 10-point ROS is otherwise unremarkable Physical Examination - Vital Signs Temperature: 97.8 F Blood Pressure: 120/58 Pulse: 77 Respirations: 18 Pulse Ox (%): 96 - Physical Exam General: Alert, In no apparent distress HEENT: Atraumatic, PERRLA, EOMI Neck: Supple, JVD not distended Respiratory: Clear to auscultation bilaterally, Normal air movement Cardiovascular: Regular rate/rhythm, Normal S1 S2 Gastrointestinal: Normal bowel sounds, No tenderness Musculoskeletal: No tenderness Integumentary: No rashes Neurological: Normal speech, Normal tone, Normal affect Lymphatics: No axilla or inguinal lymphadenopathy - Studies Medications List Reviewed: Yes Assessment & Plan - Problems (Diagnosis) (1) Acute blood loss anemia Current Visit: No Status: Acute (2) Atrial fibrillation with RVR Current Visit: No Status: Acute (3) COPD exacerbation Current Visit: No Status: Acute (4) CRF (chronic renal failure) Onset Date: 10/01/15 Current Visit: No Status: Acute (5) ESRD (end stage renal disease) Current Visit: No Status: Acute (6) History of bladder cancer Current Visit: No Status: Chronic - Plan 1. Continue with IV hydration and PPI drip 2. Continue with IV antibiotics 3. Continue with pain control 4. NPO 5. General surgery consultation 6. Monitor LFTs and lipase along with electrolytes and serial H&H. 7. GI and DVT prophylaxis - Advance Directives Does patient have a Living Will: Yes Does patient have a Durable POA for Healthcare: Yes - Code Status/Comfort Care Code Status: Full Code
[2021-12-09] MEDS: METOCLOPRAMIDE 10 MG/2mL INJ IV SCH ×2 (03:46→10:00)
[2021-12-09 06:45] LABS: Absolute Lymphocytes (CBC) 0.9 K/uL (0.7-4.9); Hematocrit 26.8 % (39.6-49.0); Lymphocytes % 9.6 % (15.3-44.8); RBC Red Blood Cell Count 3.04 M/uL (4.33-5.43)
[2021-12-09] MEDS: LEVOTHYROXINE SOD 0.088 MG TAB PO SCH (06:46)
[2021-12-09] MEDS: PANTOPRAZOLE INJ 80 MG in NA CHLORIDE 0.9% 250 ML IV SCH ×2 (06:46→15:00)
[2021-12-09] MEDS ORDERED: PANTOPRAZOLE 40 MG INJ ONE (06:50)
[2021-12-09 08:00] LABS: BUN Blood Urea Nitrogen 32 mg/dL (7-18); Bicarbonate 27 mmol/L (21-32); Folic Acid, (Folate) > 20.0 ng/mL (3.1-17.5); Glomerular Filtration Rate 9 ml/min (=/>90); Glucose Level 115 mg/dL (74-106); Magnesium 2.2 mg/dL (1.8-2.4); Potassium 4.2 mmol/L (3.5-5.1); Sodium Level 136 mmol/L (136-145)
[2021-12-09] MEDS: SEVELAMER CARBONATE 800 MG TABLET PO SCH ×3 (08:00→17:00)
[2021-12-09] MEDS: BUDESONIDE 0.25 MG/2 ML NEB IH SCH (08:40)
[2021-12-09] MEDS: predniSONE 20 MG TAB PO SCH (09:00)
[2021-12-09] MEDS: AMIODARONE HCL 200 MG TAB PO SCH (09:00)
[2021-12-09] MEDS: hydrOXYzine HCL 25 MG TAB PO SCH ×3 (09:00→21:30)
[2021-12-09] MEDS: MULTIVITAMINS,THERAPEUT 1 TAB PO SCH (09:00)
--- NOTE | 2021-12-09 12:01 | P.PN ---
Subjective Date of Service: 12/09/21 Chief Complaint: Generalized weakness. Physical Examination - Vital Signs Temperature: 98.9 F Blood Pressure: 134/58 Pulse: 73 Respirations: 14 Pulse Ox (%): 97 - Studies Medications List Reviewed: Yes Assessment And Plan - Plan 1. End-stage renal disease. HD today. 2. Hyponatremia, mild, correction via HD. 3. Anemia secondary to gastrointestinal losses/hematuria + ESRD. EGD on 12/09 +atrophic gastritis, f/u bx. Colonoscopy + diverticulosis, unable to navigate past sigmoid colon prob 2/2 adhesions. S/p pRBC transfusion. Monitor H/H. 4. Hypertension. BP at goal, monitor. 5. Renal osteodystrophy. Monitor Ca & Phos.
[2021-12-09] MEDS ORDERED: Ringers Lactate 1,000 ML IV ONE (12:39)
[2021-12-09] MEDS ORDERED: NA CHLORIDE 0.9% 500 ML ONE (12:47)
[2021-12-09] MEDS ORDERED: LIDOCAINE 1% MPF 5 ML VIAL ONE (14:59)
[2021-12-09] MEDS ORDERED: propofoL 200 MG/20 ML VIAL IV ONE (14:59)
--- NOTE | 2021-12-09 15:33 | ENDO RPT ---
[address], [address] EGD PROCEDURE REPORT EXAM DATE: 12/09/2021 PATIENT NAME: Robbie Kelly MR#: [id number] BIRTHDATE: 1945 ATTENDING: Gustavo Aguero Dr STATUS: inpatient - [facility] SENIOR SEARCH MARKETING ANALYST: Suly Herrera RN and Aleksander Palmer INDICATIONS: The patient is a 76 yr old Male here for an EGD due to melenic bleeding and anemia (hgb 5.9) PROCEDURE PERFORMED: EGD with biopsy MEDICATIONS: Per Anesthesia. TOPICAL ANESTHETIC: none CONSENT: The patient understands the risks and benefits of the procedure and understands that these risks include, but are not limited to: sedation, allergic reaction, infection, perforation and/or bleeding. Alternative means of evaluation and treatment include, among others: physical exam, x-rays, and/or surgical intervention. The patient elects to proceed with this endoscopic procedure. DESCRIPTION OF PROCEDURE: During intra-op preparation period all mechanical medical equipment was checked for proper function. Hand hygiene and appropriate measures for infection prevention was taken. Procedure, possible complications, and alternatives including but not limited to the possibility of bleeding, perforation, tear, infection, sepsis, need for surgery, need for blood transfusion, and anesthesia related complications were explained to the patient. After the risks, benefits and alternatives of the procedure were thoroughly explained, Informed consent was verified, confirmed and timeout was successfully executed by the treatment team. The patient was placed in the left lateral position. The patient was anesthetized with topical anesthesia. Through the anesthetized oropharyngeal area, the scope was passed without any difficulty. The EG-2990i ([id number]) and EC-3890Li ([id number]) endoscope was introduced through the mouth and advanced to the third portion of the duodenum. Retroflexed views revealed a small hiatal hernia. The gastroscope was then slowly withdrawn and removed. A small hiatal hernia was found Moderate Atrophic gastritis was found in the body of the stomach. Multiple biopsies were obtained and sent to pathology. ADVERSE EVENTS: There were no complications. IMPRESSIONS: 1. Small hiatal hernia 2. Moderate atrophic gastritis in the body of the stomach, s/p biopsies RECOMMENDATIONS: 1. await biopsy results 2. acid suppression therapy REPEAT EXAM: Gustavo Aguero Dr eSigned: Gustavo Aguero Dr 12/09/2021 3:33 PM cc: Korey Welsh CPT CODES: ICD9 CODES: PATIENT NAME: Robbie KellyJey MR#: [id number]
--- NOTE | 2021-12-09 15:42 | ENDO RPT ---
[address], [address] COLONOSCOPY PROCEDURE REPORT EXAM DATE: 12/09/2021 PATIENT NAME: Robbie Kelly MR #: [id number] BIRTHDATE: 1945 ATTENDING: Gustavo Aguero Dr STATUS: inpatient - 7 CREDIT REVIEW MANAGER: Suly eHrrera RN and Aleksander Palmer INDICATIONS: The patient is a 76 yr old Male here for a colonoscopy due to melenic bleeding and anemia (hgb 5.9) PROCEDURE PERFORMED: Colonoscopy MEDICATIONS: Per Anesthesia. ESTIMATED BLOOD LOSS: None CONSENT: The patient understands the risks and benefits of the procedure and understands that these risks include, but are not limited to: sedation, allergic reaction, infection, perforation and/or bleeding. Alternative means of evaluation and treatment include, among others: physical exam, x-rays, and/or surgical intervention. The patient elects to proceed with this endoscopic procedure. DESCRIPTION OF PROCEDURE: During intra-op preparation period all mechanical medical equipment was checked for proper function. Hand hygiene and appropriate measures for infection prevention was taken. Procedure, possible complications, alternatives including, but not limited to possibility of bleeding, perforation, tear, infection, sepsis, need for surgery, need for blood transfusion, were explained to the patient. After the risks, benefits and alternatives of the procedure were thoroughly explained, Informed consent was verified, confirmed and timeout was successfully executed by the treatment team. The patient was placed in the left lateral position. A digital rectal exam was performed and revealed external hemorrhoids and A digital rectal exam was performed and revealed an enlarged prostate. After appropriate level of anesthesia, the scope was passed. The EC-3890Li ([id number]) endoscope was introduced through the anus and advanced to the sigmoid colon. The quality of the prep was good. The instrument was then slowly withdrawn as the colon was fully examined. Scope withdrawal time was 7 minutes. COLON FINDINGS: There was moderate diverticulosis noted in the sigmoid colon with associated angulation, tortuosity, colonic narrowing, luminal narrowing and colonic spasm. Retroflexed views revealed medium hemorrhoids. The scope was then completely withdrawn from the patient and the procedure terminated. ADVERSE EVENTS: There were no complications. IMPRESSIONS: 1. Moderate diverticulosis in the sigmoid colon with marked tortuousity 2. Unable to intubate past sigmoid colon - probable diverticular disease induced adhesions RECOMMENDATIONS: 1. barium enema RECALL: Gustavo Aguero Dr eSigned: Gustavo Aguero Dr 12/09/2021 3:42 PM cc: Korey Welsh CPT CODES: ICD9 CODES: 1. 455.5 External hemorrhoids with other complication 2. 600.0 Hypertrophy (benign) of prostate PATIENT NAME: Robbie Kelly MR#: [id number]
[2021-12-09] MEDS ORDERED: ALBUTEROL 2.5 MG/3 ML NEB SOL ONE (15:54)
--- NOTE | 2021-12-09 16:03 | ENDO RPT ---
[address], [address] COLONOSCOPY PROCEDURE REPORT EXAM DATE: 12/09/2021 PATIENT NAME: Robbie Kelly MR #: [id number] BIRTHDATE: 1945 ATTENDING: Gustavo Aguero Dr STATUS: inpatient - 7 ANESTHESIA TECHNICIAN: Suly Herrera RN and Aleksander Palmer INDICATIONS: The patient is a 76 yr old Male here for a colonoscopy due to melenic bleeding and anemia (hgb 5.6) PROCEDURE PERFORMED: Colonoscopy MEDICATIONS: Per Anesthesia. ESTIMATED BLOOD LOSS: None CONSENT: The patient understands the risks and benefits of the procedure and understands that these risks include, but are not limited to: sedation, allergic reaction, infection, perforation and/or bleeding. Alternative means of evaluation and treatment include, among others: physical exam, x-rays, and/or surgical intervention. The patient elects to proceed with this endoscopic procedure. DESCRIPTION OF PROCEDURE: During intra-op preparation period all mechanical medical equipment was checked for proper function. Hand hygiene and appropriate measures for infection prevention was taken. Procedure, possible complications, alternatives including, but not limited to possibility of bleeding, perforation, tear, infection, sepsis, need for surgery, need for blood transfusion, were explained to the patient. After the risks, benefits and alternatives of the procedure were thoroughly explained, Informed consent was verified, confirmed and timeout was successfully executed by the treatment team. The patient was placed in the left lateral position. A digital rectal exam was performed and revealed external hemorrhoids and A digital rectal exam was performed and revealed an enlarged prostate. After appropriate level of anesthesia, the scope was passed. The EC-3890Li ([id number]) endoscope was introduced through the anus and advanced to the sigmoid colon. The quality of the prep was good. The instrument was then slowly withdrawn as the colon was fully examined. Scope withdrawal time was 7 minutes. COLON FINDINGS: There was moderate diverticulosis noted in the sigmoid colon with associated angulation, tortuosity, colonic narrowing, luminal narrowing and colonic spasm. Retroflexed views revealed medium hemorrhoids. The scope was then completely withdrawn from the patient and the procedure terminated. ADVERSE EVENTS: There were no complications. IMPRESSIONS: 1. Moderate diverticulosis in the sigmoid colon with marked tortuousity 2. Unable to intubate past sigmoid colon - probable diverticular disease induced adhesions RECOMMENDATIONS: 1. barium enema RECALL: Gustavo Aguero Dr eSigned: Gustavo Aguero Dr 12/09/2021 4:03 PM Revised: 12/09/2021 4:03 PM cc: Korey Welsh CPT CODES: ICD9 CODES: 1. 455.5 External hemorrhoids with other complication 2. 600.0 Hypertrophy (benign) of prostate PATIENT NAME: Robbie Kelly MR#: [id number]
--- NOTE | 2021-12-09 16:03 | ENDO RPT ---
[address], [address] EGD PROCEDURE REPORT EXAM DATE: 12/09/2021 PATIENT NAME: Robbie Kelly MR#: [id number] BIRTHDATE: 1945 ATTENDING: Gustavo Aguero Dr STATUS: inpatient - [facility] DIGGER: Suly Herrera RN and Aleksander Palmer INDICATIONS: The patient is a 76 yr old Male here for an EGD due to melenic bleeding and anemia (hgb 5.6) PROCEDURE PERFORMED: EGD with biopsy MEDICATIONS: Per Anesthesia. TOPICAL ANESTHETIC: none CONSENT: The patient understands the risks and benefits of the procedure and understands that these risks include, but are not limited to: sedation, allergic reaction, infection, perforation and/or bleeding. Alternative means of evaluation and treatment include, among others: physical exam, x-rays, and/or surgical intervention. The patient elects to proceed with this endoscopic procedure. DESCRIPTION OF PROCEDURE: During intra-op preparation period all mechanical medical equipment was checked for proper function. Hand hygiene and appropriate measures for infection prevention was taken. Procedure, possible complications, and alternatives including but not limited to the possibility of bleeding, perforation, tear, infection, sepsis, need for surgery, need for blood transfusion, and anesthesia related complications were explained to the patient. After the risks, benefits and alternatives of the procedure were thoroughly explained, Informed consent was verified, confirmed and timeout was successfully executed by the treatment team. The patient was placed in the left lateral position. The patient was anesthetized with topical anesthesia. Through the anesthetized oropharyngeal area, the scope was passed without any difficulty. The EG-2990i ([id number]) and EC-3890Li ([id number]) endoscope was introduced through the mouth and advanced to the third portion of the duodenum. Retroflexed views revealed a small hiatal hernia. The gastroscope was then slowly withdrawn and removed. A small hiatal hernia was found Moderate Atrophic gastritis was found in the body of the stomach. Multiple biopsies were obtained and sent to pathology. ADVERSE EVENTS: There were no complications. IMPRESSIONS: 1. Small hiatal hernia 2. Moderate atrophic gastritis in the body of the stomach, s/p biopsies RECOMMENDATIONS: 1. await biopsy results 2. acid suppression therapy REPEAT EXAM: Gustavo Aguero Dr eSigned: Gustavo Aguero Dr 12/09/2021 4:02 PM Revised: 12/09/2021 4:02 PM cc: Korey Welsh CPT CODES: ICD9 CODES: PATIENT NAME: LeticiaRobbie MR#: [id number]
--- NOTE | 2021-12-09 18:14 | CON ---
Date of Consultation: 12/09/2021 Reason For Consultation: Melena with maroon stools, weakness, and dyspnea on exertion. Hemoglobin i s down to 5.6. History Of Present Illness: This patient is a 76-year-old white male with history of atrial fibrilla tion, on Eliquis; COPD; hypothyroidism; hypertension; hyperlipidemia; end-stage renal disease, on hem odialysis; bladder cancer; anemia; aortic abdominal aneurysm 5.8 cm. Patient presented to the hospit ct with generalized weakness. Patient complained of black melenic stools, some maroon stools as well . He has had some weakness and dyspnea on exertion with exertion, therefore he has been put in wheel chair by to transport. He reports to be on Eliquis for atrial fibrillation. This has been held since admission. His hemoglobin has risen from 5.6 to 9.1 with blood transfusions. Past Medical History: Significant for atrial fibrillation, on Eliquis; COPD; hypertension; hyperlipi demia; hypothyroidism; end-stage liver disease, on hemodialysis; bladder cancer; anemia, and aortic a bdominal aneurysm 5.8 cm. Chart says that this has been repaired. However, and patient states that he has not had repair. There has been some discrepancy between Cardiology and Oncology in [facility] on as to who would do procedures, do the cancer surgery first for the bladder cancer or aortic aneury sm surgery or stent placement first. This has not been done according to the patient and . Home Medications: Include Synthroid, atorvastatin, Lasix, Coreg, Ventolin, Pulmicort, Atarax, Pacero ne, folic acid, B complex, multivitamin, Renvela, prednisone. Allergies: NKDA. Social History: He is . Son and daughter. Quit tobacco in 2018. No alcohol. Family History: Father of heart disease, presumably coronary artery disease and mother at 72 of unknown causes. Review of Systems: Patient has black stools, weakness, dyspnea on exertion, but denies any syncope, nausea, vomiting, fe vers, chills, night sweats, constipation, diarrhea, muscle aches, joint aches, backaches, depression, anxiety, seizure, syncope. Physical Examination: Vital Signs: The patient is 5 feet 10 inches, 151 pounds, BMI 21.7 kg/sq m. He had a temperature of 97.9 degrees Fahrenheit, pulse 83, respiration rate 16, blood pressure 105/45, O2 saturation 99%. General: Male, lying in bed, in no acute distress. HEENT: Normocephalic, atraumatic. Anicteric. Pupils equal, round, and reactive to light. Anicteri c. Oropharynx clear. Neck: Supple. No masses. Respirations: Clear to auscultation bilaterally. Cardiac: Irregularly irregular rate and rhythm. Abdomen: Positive bowel sounds. Soft, nontender, nondistended. No hepatosplenomegaly. Extremities: No clubbing, cyanosis, or edema. 2+ pulses. Neuro: . 5/5 motor. Sensation intact to light touch. Laboratory Data: On admission, patient's hemoglobin was 5.6, now it is 9.1 two days after admission. PT of 14.8, INR of 1.34, PTT of 31.8. Sodium 136, potassium 4.2, chloride 101, bicarb 27, BUN is 3 2, creatinine of 6.17 on dialysis, glucose 115, calcium 8.6. Magnesium 2.2. Iron of 14, total bilir ubin 0.4, AST of 12, ALT less than 10, alkaline phosphatase 42. Troponin I high normal. B-type natriuretic peptide elevated at 19,907. Total protein 5.9, albumin 2.3, B12 808, folate of gr eater than 20. TSH of 4.55, free T4 of 0.88. COVID-19 test is negative. Impression: 1.Melena with some maroon stool early on, weakness and dyspnea on exertion, on Eliquis for atrial fi brillation. There is no syncope, nausea, vomiting, fevers, chills, night sweats, diarrhea, constipat ion, hematemesis, coffee-grounds emesis, hemoptysis, hematuria. 2.Anemia. Hemoglobin 5.6, 9.1. Blood transfusion. 3.History of atrial fibrillation, on Eliquis with chronic obstructive pulmonary disease; hypothyroid ism; end-stage liver disease, on hemodialysis; hyperlipidemia; hypertension; bladder cancer, which ne eds therapy, surgery; anemia; and abdominal aortic aneurysm, which needs therapy and surgery as well. Cardiology and oncologic surgeons have not decided when to repair the abdominal aortic aneurysm acc ording the patient's . Recommendations: 1.EGD. 2.Limited colonoscopy due to AAA 5.8 cm and increased risk. Discussed with patient's , they und erstand and want to proceed with procedure. 3.Serial H and H, and transfuse p.r.n. 4.PPI therapy. 5.Hold Eliquis. SHAQUILLE/MATTHEW Voice ID: [id number] Report ID: [id number]
[2021-12-09] MEDS: BUDESONIDE 0.25 MG/2 ML NEB NEB SCH (20:25)
[2021-12-09] MEDS: ATORVASTATIN 40 MG TAB PO SCH (21:31)
--- NOTE | 2021-12-10 00:52 | P.PN ---
Date of Service: 12/09/21 Subjective Patient without any active bleeding. Hemoglobin has been stable. Spoke with GI and EGD and colonoscopy in the morning. Review of Systems 10-point ROS is otherwise unremarkable Physical Examination - Vital Signs reviewed - Physical Exam General: Alert, In no apparent distress Respiratory: Clear to auscultation bilaterally, Normal air movement Cardiovascular: Regular rate/rhythm, Normal S1 S2 Gastrointestinal: Normal bowel sounds, No tenderness Neurological: Normal speech, Normal tone, Normal affect Assessment & Plan - Problems (Diagnosis) (1) Acute blood loss anemia Current Visit: No Status: Acute (2) Atrial fibrillation with RVR Current Visit: No Status: Acute (3) COPD exacerbation Current Visit: No Status: Acute (4) CRF (chronic renal failure) Onset Date: 10/01/15 Current Visit: No Status: Acute (5) ESRD (end stage renal disease) Current Visit: No Status: Acute (6) History of bladder cancer Current Visit: No Status: Chronic - Plan Continue with POC as mentioned below: 1. Continue with IV hydration and PPI 2. Continue with IV antibiotics 3. Continue with pain control 4. NPO 5. General surgery consultation 6. Monitor LFTs and lipase along with electrolytes and serial H&H. 7. GI and DVT prophylaxis - Advance Directives Does patient have a Living Will: Yes Does patient have a Durable POA for Healthcare: Yes - Code Status/Comfort Care Code Status: Full Code
[2021-12-10 06:01] LABS: Absolute Lymphocytes (CBC) 0.9 K/uL (0.7-4.9); Hematocrit 32.5 % (39.6-49.0); Lymphocytes % 11.8 % (15.3-44.8); MCV 84.1 fL (80-100); MPV 8.6 fL (7.6-11.3); RBC Red Blood Cell Count 3.86 M/uL (4.33-5.43)
[2021-12-10] MEDS: LEVOTHYROXINE SOD 0.088 MG TAB PO SCH (06:21)
[2021-12-10 06:24] LABS: Potassium 4.1 mmol/L (3.5-5.1)
[2021-12-10] MEDS: BUDESONIDE 0.25 MG/2 ML NEB NEB SCH (07:45)
[2021-12-10 08:22] VITALS: O2SAT 93
[2021-12-10] MEDS: hydrOXYzine HCL 25 MG TAB PO SCH (08:28)
[2021-12-10] MEDS: AMIODARONE HCL 200 MG TAB PO SCH (08:29)
[2021-12-10] MEDS: predniSONE 20 MG TAB PO SCH (08:29)
[2021-12-10] MEDS: MULTIVITAMINS,THERAPEUT 1 TAB PO SCH (08:29)
[2021-12-10] MEDS: SEVELAMER CARBONATE 800 MG TABLET PO SCH (08:30)
[2021-12-10 10:08] VITALS: BP 133/60; TEMP 98.8
--- NOTE | 2021-12-10 11:08 | PN ---
Date of Progress Note: 12/10/2021 Subjective: The patient was admitted with GI bleed, severe symptomatic anemia, the patient had transfusion of 4 RBCs. The patient had a colonoscopy, seen by Dr. Aguero. Physical Examination: Vital Signs: Blood pressure 134/58, pulse of 73, afebrile. Chest: Clear to auscultation. Heart: S1, S2. Systolic murmur. Abdomen: Soft, nontender. Extremities: No edema. Neurologic: Alert. No focality. Vascular: Left AV graft good thrill. Laboratory Data: WBC 7.8, H and H 10.5/32.5. Sodium 136, potassium 4.1, bicarb 26, BUN 29, creatinine 4.9, calcium 9.8. Current Medications: The patient on include; 1. Tylenol. 2. Epogen. 3. Amiodarone. 4. Atorvastatin. 5. Renvela. 6. Levothyroxine. 7. Hydrocodone. 8. Pulmicort. 9. Multivitamin. Assessment And Plan: 1. End-stage renal disease, normal volume. The patient's last dialysis was . Plan for discharge today. We will arrange for dialysis as outpatient. I called Josep Olea, willing to take him for dialysis today. We will release the patient. 2. Hypertension, controlled, optimal. Continue current treatment. 3. Anemia of chronic kidney disease/gastrointestinal bleed, status post transfusion. Colonoscopy was negative. We will follow up with GI. Continue BRONWYN. 4. Hyponatremia, corrected with dialysis. 5. Over volume, currently normal volume. We will do dialysis today to maintain good volume control for the patient. 6. Polycystic kidney disease, stable. 7. Bladder CA, status post partial resection. We will follow up with Urology. Time spent examining the patient [id number], reviewing the data of lab and radiology discussing the case with the patient reviewing the case with the [employer] team leader including nursing discussing the case with the hospitalist 35-minute TOM/MATTHEW Voice ID: [id number] Report ID: [id number] MARY
--- NOTE | 2021-12-25 15:51 | P.DS ---
Discharge Date: 12/10/21 Disposition: ROUTINE DISCHARGE Discharge Condition: GOOD Reason for Admission: Generalized weakness. - Problems (1) Acute blood loss anemia Status: Acute (2) Atrial fibrillation with RVR Status: Acute (3) COPD exacerbation Status: Acute (4) CRF (chronic renal failure) Onset Date: 10/01/15 Status: Acute (5) ESRD (end stage renal disease) Status: Acute (6) History of bladder cancer Status: Chronic Brief History of Present Illness: Patient is a 76-year-old male with a past medical history significant for hypothyroidism, hypertension, ESRD, COPD, bladder cancer, anemia, abdominal aortic aneurysm who presents with complaint of generalized weakness that has been ongoing for quite some time now. Patient is a poor historian and unable to provide accurate history. Patient reported that he is also having bilateral lower extremity numbness as well as dark stools that has been ongoing for the past couple of weeks. Patient reported that he had nausea and vomiting episodes yesterday. Patient reports left lower quadrant abdominal pain rated as 7/10 in severity and described as aching in quality. Spouse reported that patient was sitting down today and had trouble getting out of the chair because he was too weak. Patient was also noted to have trouble holding a cup of coffee today eventually spilling the coffee on himself as well as losing control of his bladder. Patient reports associated signs and symptoms of fatigue. Patient denies any other signs or symptoms. Symptoms are aggravated or relieved by nothing. Of note, spouse reported that patient had 2 units of PRBC transfusion at another facility 8 days ago. Patient decided to present to the hospital for medical evaluation. Hospital Course: Patient's hemoglobin has stabilized. Patient had EGD and colonoscopy with no active bleeding noted. Patient clinically is doing okay. At this time, patient is stable for discharge with outpatient follow-up. Patient will need to reattempt to do the complete colonoscopy as they were only able to get through the sigmoid colon. Patient will need repeat labs in 1 week. Vital Signs/Physical Exam: Temp Pulse Resp BP Pulse Ox 98.8 F 78 17 133/60 92 12/10/21 08:00 12/10/21 08:00 12/10/21 08:00 12/10/21 08:00 12/10/21 08:00 General: Alert, In no apparent distress, Oriented x3 Laboratory Data at Discharge: WBC 7.8 K/uL (4.3-10.9) D 12/10/21 05:35 Hgb 10.5 g/dL (13.6-17.9) L 12/10/21 05:35 Hct 32.5 % (39.6-49.0) L D 12/10/21 05:35 Plt Count 128 K/uL (152-406) L 12/10/21 05:35 PT 14.8 SECONDS (9.5-12.5) H 12/08/21 06:45 INR 1.34 12/08/21 06:45 APTT 31.8 SECONDS (24.3-36.9) 12/08/21 06:45 Sodium 136 mmol/L (136-145) 12/10/21 05:35 Potassium 4.1 mmol/L (3.5-5.1) 12/10/21 05:35 BUN 29 mg/dL (7-18) H 12/10/21 05:35 Creatinine 4.96 mg/dL (0.55-1.3) H D 12/10/21 05:35 Glucose 76 mg/dL (74-106) 12/10/21 05:35 Magnesium 2.2 mg/dL (1.8-2.4) 12/09/21 06:36 Total Bilirubin 0.4 mg/dL (0.2-1.0) 12/08/21 06:45 AST 12 U/L (15-37) L 12/08/21 06:45 ALT < 10 U/L (12-78) L 12/08/21 06:45 Alkaline Phosphatase 42 U/L (45-117) L 12/08/21 06:45 Home Medications: Albuterol Sulfate [Ventolin Hfa] 1 puff IH BID PRN 12/08/21 Amiodarone HCl [Cordarone*] 1 tab PO DAILY 12/08/21 Apixaban [Eliquis *] 2.5 mg PO BID 12/08/21 Atorvastatin Calcium 40 mg PO BEDTIME 12/08/21 Budesonide [Pulmicort*] 1 puff IH BID PRN 12/08/21 Folic Acid/Vit B Complex and C [Aileen-Shari Tablet] 1 tab PO BEDTIME 12/08/21 Gabapentin 100 mg PO M,W,F 12/08/21 Ipratropium/Albuterol Sulfate [Iprat-Albut 0.5-3(2.5) mg/3 ml] 3 ml IH BID 12/08/21 Levothyroxine [Synthroid*] 88 mcg PO [id number] 12/08/21 Pregabalin 25 mg PO BEDTIME 12/08/21 Sevelamer Carbonate 800 mg PO TID 12/08/21 hydrOXYzine HCL [Atarax*] 25 mg PO BID 12/08/21 Pantoprazole Sodium [Protonix] 40 mg PO BID #60 tablet. 12/10/21 Sucralfate [Carafate -Tab] 1 gm PO ACHS #120 tab 12/10/21 New Medications: Sucralfate [Carafate -Tab] 1 gm PO ACHS #120 tab Pantoprazole Sodium [Protonix] 40 mg PO BID #60 tablet. Physician Discharge Instructions: -DC IV and DC home -Follow-up with PCP in 1 to 2 weeks -Follow-up with Nephrology and GI in 2 weeks -Please call Dr. Welsh at [phone] if any questions regarding hospital stay -Please call nursing station at [phone] if any nursing or medication questions -Return to the emergency room if symptoms worsen Diet: Renal Activity: Fall precautions Followup: Mookie Nguyen MD [Primary Care Provider] - (Call to schedule appointment) Time spent managing pt's care (in minutes): 35
== END 2021-12-10 10:16 | disposition home or self-care (01) | DRG 377 ==
LOC: ER 11:11 → ERHOLD 13:21 → 2ND 17:24
PROVIDERS: ADMIT Hospitalist; ATTEND Hospitalist
PROC: 30233N1 Transfusion of Nonautologous Red Blood Cells into Peripheral Vein, Percutaneous Approach (ICD-10-PCS; 2021-12-07)
PROC: 5A1D70Z Performance of Urinary Filtration, Intermittent, Less than 6 Hours Per Day (ICD-10-PCS; 2021-12-08)
PROC: 0DB68ZX Excision of Stomach, Via Natural or Artificial Opening Endoscopic, Diagnostic (ICD-10-PCS; principal; 2021-12-09 12:00)
PROC: 0DJD8ZZ Inspection of Lower Intestinal Tract, Via Natural or Artificial Opening Endoscopic (ICD-10-PCS; 2021-12-09 12:00)
DX: K29.41 Chronic atrophic gastritis with bleeding (principal); N18.6 End stage renal disease; D62 Acute posthemorrhagic anemia; E87.1 Hypo-osmolality and hyponatremia; Q61.3 Polycystic kidney, unspecified; K56.50 Intestinal adhesions [bands], unspecified as to partial versus complete obstruction; J96.10 Chronic respiratory failure, unspecified whether with hypoxia or hypercapnia; I12.0 Hypertensive chronic kidney disease with stage 5 chronic kidney disease or end stage renal disease; E03.9 Hypothyroidism, unspecified; K29.40 Chronic atrophic gastritis without bleeding; J44.9 Chronic obstructive pulmonary disease, unspecified; I71.4 Abdominal aortic aneurysm, without rupture; K44.9 Diaphragmatic hernia without obstruction or gangrene; K64.4 Residual hemorrhoidal skin tags; N40.0 Benign prostatic hyperplasia without lower urinary tract symptoms; K57.30 Diverticulosis of large intestine without perforation or abscess without bleeding; I48.91 Unspecified atrial fibrillation; C67.9 Malignant neoplasm of bladder, unspecified; N25.0 Renal osteodystrophy; Z79.01 Long term (current) use of anticoagulants; Z99.2 Dependence on renal dialysis; Z20.822 Contact with and (suspected) exposure to COVID-19
CPT/HCPCS: 36415; 70450; 71045; 80048; 80053; 82607; 82746; 83540; 83735; 83880; 84439; 84443; 84484; 85014; 85018; 85025; 85610; 85730; 86706; 86850; 86900; 86901; 87340; 88305; 88312; 90935; 93005; 99285; C9113; J2250; J2597; J2704; J2765; J7040; J7050; J7120; J7512; J7634; P9016; U0003

== ENCOUNTER 2021-12-20 16:53 | Emergency (ER) | payer OTHER ==
--- OUTSIDE RECORDS SUMMARY | 2021-12-20 17:00 | XMS REPORT | Continuity of Care Document ---
:1945 Author Organization [facility] t Address [address] [place] [address] Care Team Providers Name Role Phone ALYSSA FARRIS Primary Care Physician Unavailable RAMESH HUANG Attending Clinician Unavailable ALYSSA FARRIS Attending Clinician Unavailable TONNY MURRAY Attending Clinician Unavailable AMY GORMAN Attending Clinician Unavailable JAMMIE SOLORZANO Attending Clinician Unavailable ASHLYN PELAEZ Attending Clinician Unavailable Jenn DENIS Attending Clinician Unavailable GURPREET BENITES Attending Clinician Unavailable MAYCO Attending Clinician Unavailable Zofia KNOWLES Attending Clinician Unavailable JACKELYN KNOWLES Attending Clinician Unavailable SUMANTH NOLAN Attending Clinician Unavailable Ramesh Huang MD Attending Clinician Yuliet WOOD Attending Clinician Alyssa Farris MD Attending Clinician Jasvir Dixon MD Attending Clinician eDb Oliveira CRNA Attending Clinician Thee Burton CRNA Attending Clinician Vsihal Monique MD Attending Clinician Waqar Villatoro MD Attending Clinician Mattie Garcia NP Attending Clinician Adenike Ocampo NP Attending Clinician MD Vishal MONIQUE Attending Clinician Unavailable Tonny Murray MD Attending Clinician REINA RAMESH Admitting Clinician Unavailable SURISIRAPRIL Admitting Clinician Unavailable TONNY MURRAY Admitting Clinician Unavailable JACKELYN KNOWLES Admitting Clinician Unavailable KAYDEN Admitting Clinician Unavailable MD Vishal MONIQUE Admitting Clinician Unavailable Payers Payer Name Policy Type Policy Number Effective Expiration Source Date Date MEDICARE A B [id number] 2010 00:00:00 [employer] [id number] 2016 00:00:00 CDC REVIEW [id number] 2020 2020 00:00:00 00:00:00 MEDICARE PART A \\T\\ B [id number] - MEDICARE [employer] \\T\\ [id number] 2016 2021 CASUALTY 00:00:00 00:00:00 MEDICAREMEDICARE PART [id number] 2010 Tx thodist A AND 00:00:00 Hospital [id number] 2009 [place] [employer] AND [id number] 2020 Methodis t CASUALTYBANKERS LIFE 00:00:00 Hosp ital AND [id number]/2020-PresentCommercia l Problems Condition Condition Condition Status Onset Resolution Last Treating Co mments Source Name Details Category Date Date Treatment Clinician Date 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 10-25 College (HCCode) (HCCode) 00:00: of 00 Medicin e Malignant Malignant Disease Active [facility] neoplasm neoplasm 03 Colleg e of of 00:00: of overlappin overlappin 00 Me dicin g sites of g sites of e bladder bladder (HCCode) (HCCode) 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 Hematuria Hematuria Disease Active [facility] Altered Altered Disease Active [facility] mental mental 3-05 [facility] status status 00:00: Medical 00 Center s/p L CEA s/p L CEA Disease Active CHASITY Cadena 02/11 ( 02/11 Ashley 02-11 Julio Murray) 00:00: Medica l 00 Center 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 02-26 Co llege basement basement 00:00: of membrane membrane 00 Medici n dystrophy dystrophy e Iris Iris Disease Active [facility] atrophy, atrophy, 02-26 Colleg e left, left, 00:00: of temporally temporally 00 Me dicin e Spastic Spastic Disease Active [facility] entropion entropion 01-15 [facility] ege of right of right 00:00: of lower lower 00 Medicin eyelid eyelid e Pulmonary Pulmonary Disease Active [facility] emphysema emphysema 01-15 Eric ege (HCCode) (HCCode) 00:00: of 00 Medicin e Glare Glare Disease Active [facility] sensitivit sensitivit 01-15 Co llege y y 00:00: of 00 Medicin e Pseudophak Pseudophak Disease Active [facility] of both ia of both 01-15 Co llege eyes eyes 00:00: of 00 Medicin e Meibomian Meibomian Disease Active [facility] gland gland 01-15 College dysfunctio dysfunctio 00:00: [...] Active [facility] kidney kidney 12-19 [facility] 00:00: Medical 00 Center COPD COPD Disease Active Last [facility] St (chronic (chronic 12-19 Assessmen [facility] es obstructiv obstructiv 00:00: t & Plan: Medical e e 00 Control Center pulmonary pulmonary d with disease) disease) inhalers. No history of smoking. Asthma Asthma Disease Active [facility] ESRD (end ESRD (end Disease Active [facility] stage stage [facility] renal renal Medical disease) disease) Center Dialysis Dialysis Disease Active [facility] S t patient patient [facility] S/P S/P Disease Active [facility] carotid carotid [facility] endarterec endarterec Tx dical trinity [facility] Acute Acute Disease Active [facility] blood loss blood [facility] anemia anemia 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 [facility] Bradycardi Bradycardi Disease Active C IN St a a [facility] Hypothyroi Hypothyroi Disease Active C IN St dism, dism, [facility] unspecifie unspecifie Me dical d type d type Center ESRD on ESRD on Disease Active [facility] hemodialys hemodialys [facility] Allergies, Adverse Reactions, Alerts Allergy Allergy Status Severity Reaction(s) Onset Inactive Treating Comm ents Source Name Type Date Date Clinician NO KNOWN Allergy Active [facility] Family History Family Member Diagnosis Comments Start Date Stop Date Source Natural father Hypertension [facility] Natural father Heart disease [facility] Natural father Heart failure [facility] Natural mother Cancer [facility] Natural mother Hypertension [facility] Natural sister COPD [facility] Natural brother Cancer [facility] Natural daughter Polycystic kidney C [facility] Social History Social Habit Start Date Stop Date Quantity Comments Source History of tobacco Cigarette Smoker [facility] use of Medicine History [facility] Alcohol Frequency of Medi cine History [facility] Alcohol Std Drinks of Med icine History [facility] Alcohol Binge of Medicine Cigarettes smoked 2021-11-15 2021-11-15 [facility] current (pack per 00:00:00 00:00:00 of Medi day) - Reported Cigarette 2021-11-15 2021-11-15 [facility] pack-years 00:00:00 00:00:00 of Medicine Alcohol intake 2021-11-15 2021-11-15 Ex-drinker [facility] 00:00:00 00:00:00 (finding) of Medicine Alcohol Comment 2021-11-15 2021-11-15 socially [facility] llege 00:00:00 00:00:00 of Medicine Tobacco use and 2021-11-15 2021-11-15 Smokeless tobacco [facility] exposure 00:00:00 00:00:00 non-user of Medicine Tobacco Comment 2021-11-15 2021-11-15 stopped 5 yrs ago [facility] 00:00:00 00:00:00 of Medicine Exposure to 2021-11-04 2021-11-14 Not sure [facility] Leon de leon SARS-CoV-2 (event) 00:00:00 12:41:00 of Med icine Sex [birth year] [facility] llege 00:00:00 00:00:00 of Medicine Smoking Status Start Date Stop Date Source Ex-smoker 2021-11-15 00:00:00 2021-11-15 00:00:00 [facility] ollemarcin of Medicine Medications Ordered Filled Start Stop Current Ordering Indication Dosage Frequency Signature Comments Components Source Medication Medication Date Date Medication? Clinician (SIG) Name Name Apixaban Yes 2.5mg Take 2.5 [facility] (ELIQUIS) 5-24 mg by [facility] 2.5 MG TABS 14:01: mouth two o f 43 times Medicin daily. e predniSONE No 10mg Take 10 mg [facility] (DELTASONE) 11-15- by mouth Col [facility]ge 10 MG 14:01: 00:00 daily. of tablet 32 :00 Medicin e metoprolol 2021- No 50mg Take 50 mg [facility] (TOPROL-XL) 11-15- by mouth Col [facility]ge 50 MG XL 14:01: 00:00 daily. of tablet 26 :00 Medicin e levothyroxi 2021- No 75ug Take 75 Ba ylor ne 5-24 05-24 mcg by [facility] (SYNTHROID) 14:01: 00:00 mouth of 75 MCG 20 :00 daily. Medicin tablet e diphenhydra 0 2021- No 25mg Take 25 mg [facility] mine 5-24 05-24 by mouth [facility] (SOMINEX) 14:00: 00:00 nightly as o f 25 MG 47 :00 needed for Medicin tablet Sleep. e B Yes Take by [facility] Complex-C-F -24 mouth. Colleg e olic Acid 13:59: of (JADE-MIGUEL ANGEL 49 Medicin OR) e Albuterol Yes Inhale by [facility] Sulfate 5-24 mouth. [facility] (VENTOLIN 13:59: of HFA IN) 49 Medicin e budesonide 0 Yes .25mg 0.25 mg by [facility] (PULMICORT) - Inhalation Co llege 0.25 MG/2ML 13:59: route. of nebulizer 49 Medicin suspension e ipratropium 0 Yes 3mL 3 mL by [facility] -albuterol -24 Inhalation Col [facility]ge (DUO-NEB) 13:59: route. of 0.5-2.5 (3) 49 Medicin MG/3ML e levothyroxi Yes 88ug Take 88 [facility] ne 5-24 mcg by [facility] (SYNTHROID) 13:59: mouth. of 88 MCG 49 Medicin tablet e B Yes Take by [facility] Complex-C-F -17 mouth. Colleg e olic Acid 15:22: of (JADE-MIGUEL ANGEL 15 Medicin OR) e Albuterol 0 Yes Inhale by Ba ylor Sulfate 5-17 mouth. [facility] (VENTOLIN 15:22: of HFA IN) 15 Medicin e budesonide 0 Yes .25mg 0.25 mg by [facility] (PULMICORT) 5-17 Inhalation Co llege 0.25 MG/2ML 15:22: route. of nebulizer 15 Medicin suspension e ipratropium 2021-0 Yes 3mL 3 mL by [facility] -albuterol 5-17 Inhalation Col [facility] (DUO-NEB) 15:22: route. of 0.5-2.5 (3) 15 Medicin MG/3ML e levothyroxi 2021-0 Yes 88ug Take 88 [facility] ne 5-17 mcg by [facility] (SYNTHROID) 15:22: mouth. of 88 MCG 15 Medicin tablet e Sevelamer 2021-0 Yes 800mg Take 800 [facility] Carbonate 5-05 mg by College 800 MG TABS 00:00: mouth. of 00 Medicin e Sevelamer 2021-0 Yes 800mg Take 800 [facility] Carbonate 5-05 mg by College 800 MG TABS 00:00: mouth. of 00 Medicin e pregabalin 2021-0 Yes [facility] (LYRICA) 25 5-04 College MG capsule 00:00: of 00 Medicin e pregabalin 2021-0 Yes [facility] (LYRICA) 25 5-04 College MG capsule 00:00: of 00 Medicin e levothyroxi 2021-0 Yes 75ug Take 75 [facility] ne 4-21 mcg by [facility] (SYNTHROID) 13:07: mouth of 75 MCG 10 daily. Medicin tablet e levothyroxi 2021-0 Yes 75ug Take 75 [facility] ne 4-21 mcg by College (SYNTHROID) 13:07: mouth of 75 MCG 10 daily. Medicin tablet e amiodarone 2021-0 Yes 200mg Take 200 [facility] (PACERONE) 1-01 mg by [facility] 200 MG 00:00: mouth. of tablet 00 [...] atorvastati 2021-0 Yes 40mg Take 40 mg [facility] n (LIPITOR) 1-01 by mouth. Col lege [...] Medicin e B 2020-06 Yes Take by [facility] Complex-C-F 0-29 mouth. Colleg e olic Acid 09:14: of (JADE-MIGUEL ANGEL 56 Medicin OR) e predniSONE 2020-06 Yes 10mg Take 10 mg [facility] (DELTASONE) 0-29 by mouth Eric ege 10 MG 09:14: daily. of tablet 56 Medicin e Albuterol 2020-06 Yes Inhale by Ba [facility] Sulfate 0-29 mouth. [facility] (VENTOLIN 09:14: of HFA IN) 56 Medicin e diphenhydra 2020-06 Yes 25mg Take 25 mg [facility] mine 0-29 by mouth [facility] (SOMINEX) 09:14: nightly as of 25 MG [...] 25 mg [facility] mine 0-29 by mouth [place] [facility] (SOMINEX) 09:14: nightly as of 25 MG [...] daily. Medical 08 Center calcium Yes 1{tbl} [id number] Take [address] carbonate 8- [id number] tablet by [facility] (Calcium 13:26: 3D mouth [...] iron Tab 13:26: needed. Med ical 08 [facility] fluticasone Yes QD Inhale by C [facility] -umeclidin- 8-19 mouth via [facility] es vilanter 13:26: inhaler Medica l (Trelegy 08 daily. Center Ellipta) 100-62.5-25 mcg DsDv fluticasone 2020- No 2{puff} Q.5D Inhale [address] propion-alfredo 8- 08-19 puffs by [facility] meteroL [...] 00:00 mouth. Medica l capsule 29 :00 [facility] levoFLOXaci 2020- No 250mg QD Take 250 [...] for 30 days. oxybutynin 2020- No 5mg Q.[id number] Take [address] (DITROPAN) 09-02 [id number] tablet (5 [facility] 5 MG tablet 00:00: [...] narcotic based pain meds. traMADoL 2020- No [address] 50mg Q6H Take 1 Metho di (Ultram) [...] month fluorometho 2017-06- No 1[drp] Place 1 [facility] lone (FML) 0-11 05-24 Drop into Col [...] daily. moxifloxaci 2017-06- No 1[drp] Apply 1 [facility] n (VIGAMOX) 0-05 05-24 Drop to Eric ege 0.5 % 00:00: 00:00 eye 3 of ophthalmic 00 :00 times Medicin solution daily. e Loteprednol 2017-06- No 1[drp] Place 1 [facility] Etabonate 0-05 05-24 Drop into Eric ege [...] cm WEIGHT 2020-01-29 00:00:00 82 kg HEIGHT 2021-12-13 09:57:00 177.8 cm WEIGHT 2021-12-13 09:57:00 73.936 kg HEIGHT 2021-11-29 11:51:00 177.8 cm WEIGHT 2021-11-29 11:51:00 72.576 kg HEIGHT 2021-11-29 11:51:00 177.8 cm WEIGHT 2021-11-29 11:51:00 72.576 kg Systolic blood 2021-11-15 18:53:00 120 mm[Hg] [facility] of pressure Medicine Diastolic blood 2021-11-15 18:53:00 63 mm[Hg] [facility] pressure Medicine Heart rate 2021-11-15 18:53:00 86 /min [facility] Body height 2021-11-15 18:53:00 177.8 cm [facility] ollege of Medicine Body weight 2021-11-15 18:53:00 73.392 kg [facility] BMI 2021-11-15 18:53:00 23.22 kg/m2 [facility] ollege of Medicine Systolic blood 2021-11-08 20:17:00 110 mm[Hg] [facility] Medicine Diastolic blood 2021-11-08 20:17:00 62 mm[Hg] [facility] Medicine Heart rate 2021-11-08 20:17:00 78 /min [facility] ollege of [facility] Body temperature 2021-11-08 20:17:00 36.67 Jailyn [facility] Respiratory rate 2021-11-08 20:17:00 20 /min [facility] Body height 2021-11-08 20:17:00 177.8 cm [facility] ollege of [facility] Body weight 2021-11-08 20:17:00 71.668 kg [facility] ollege of [facility] BMI 2021-11-08 20:17:00 22.67 kg/m2 [facility] ollege of [facility] HEIGHT 2021-10-28 06:17:00 177.8 cm WEIGHT 2021-10-28 06:17:00 72.757 kg HEIGHT 2021-10-26 11:24:00 177.8 cm WEIGHT 2021-10-26 11:24:00 72.122 kg HEIGHT 2021-10-28 06:17:00 177.8 cm WEIGHT 2021-10-28 06:17:00 72.757 kg HEIGHT 2021-10-26 11:24:00 177.8 cm WEIGHT 2021-10-26 11:24:00 72.122 kg Systolic blood 2021-10-13 18:03:00 135 mm[Hg] [facility] Medicine Diastolic blood 2021-10-13 18:03:00 65 mm[Hg] [facility] Medicine Heart rate 2021-10-13 18:03:00 85 /[facility] Body temperature 2021-10-13 18:03:00 36.17 Jailyn [facility] Respiratory rate 2021-10-13 18:03:00 18 /min [facility] Body height 2021-10-13 18:03:00 177.8 cm [facility] Body weight 2021-10-13 18:03:00 73.71 kg [facility] BMI 2021-10-13 18:03:00 23.32 kg/m2 [facility] WEIGHT 2021-09-27 12:12:00 73.71 kg WEIGHT 2021-09-20 [...] blood 2021-02-10 13:25:00 131 mm[Hg] [facility] Diastolic blood 2021-02-10 13:25:00 65 mm[Hg] [facility] Heart rate 2021-02-10 13:25:00 101 /min [facility] Body temperature 2021-02-10 13:25:00 36.72 Jailyn [facility] Body weight 2021-02-10 13:25:00 78.427 kg [facility] BMI 2021-02-10 13:25:00 27.08 kg/m2 [facility] Respiratory rate 2020-10-27 17:00:00 18 /min [facility] Oxygen saturation in 2020-10-27 17:00:00 98 /min [facility] Arterial blood by Medical Ce nter Pulse oximetry Body height 2020-10-23 02:16:00 170.2 cm [facility] Systolic blood 2020-07-29 16:16:00 136 mm[Hg] [facility] pressure Diastolic blood 2020-07-29 16:16:00 65 mm[Hg] [facility] pressure Heart rate 2020-07-29 16:16:00 90 /min [facility] Body temperature 2020-07-29 16:16:00 37.17 Jailyn [facility] Oxygen saturation in 2020-07-29 16:16:00 95 /min [facility] Arterial blood by Pulse oximetry Respiratory rate 2020-07-29 16:15:00 12 /min [facility] Body height 2020-07-29 11:29:00 177.8 cm [facility] Body weight 2020-07-29 11:29:00 82.3 kg [facility] BMI 2020-07-29 11:29:00 26.03 kg/m2 [facility] Procedures Procedure Date / Time Performing Clinician Source Performed ELLE,POST-VOID 2021-11-15 00:00:00 [facility] ge of RES,US,NON-IMG Medicine CULTURE, 2021-11-09 12:23:00 [facility] ge of URINE/SENSITIVITY ON ALL Medicin e CULTURE, 2021-11-08 18:12:33 [facility] ge of URINE/SENSITIVITY ON ALL Medicin e MI INSERT,TEMP 2021-11-08 18:07:27 [facility] ge of INDWELLING BLAD Medicine CATH,SIMPLE AMB REF TO MEDICAL 2021-11-08 16:26:52 [facility] llege of ONCOLOGY [facility] ELLE,POST-VOID 2021-11-08 00:00:00 Krystian Knowles [facility] ge of RES,US,NON-IMG Medicine ELLE,POST-VOID 2021-11-08 00:00:00 [facility] of RES,US,NON-IMG Medicine BLADDER WASHINGS 2021-10-25 14:43:20 [facility] ege CYTOLOGY Medicine CYSTOSCOPY 2021-10-25 14:30:00 [facility] Medicine POCT URINALYSIS DIPSTICK 2021-10-25 00:00:00 [facility] CULTURE, 2021-10-13 13:10:20 [facility] ge of URINE/SENSITIVITY ON ALL Medicin e CBC W/AUTO DIFF WITH 2021-10-13 13:10:20 [facility] COMPREHENSIVE METABOLIC 2021-10-13 13:10:20 [facility] PROTIME-INR 2021-10-13 13:10:20 [facility] CANCER ANTIGEN 125 2021-10-13 13:10:20 [facility] llege of Medicine CEA 2021-10-13 13:10:20 [facility] Medicine CANCER ANTIGEN 19-9 2021-10-13 13:10:20 [facility], [facility]INE 2021-01-13 15:02:00 Sebas Huang [facility] URINE CULTURE, ROUTINE 2020-11-04 15:40:00 Sebas Huang [facility] UA/M W/RFLX CULTURE, 2020-11-04 15:40:00 [facility]CR[facility] 2020-11-04 15:40:00 Sebas Huang [facility] PREPARE LEUKO-REDUCED 2020-10-28 23:54:00 Jluis Parker [facility] RBC [facility] TRANSFUSE LEUKO-REDUCED 2020-10-27 11:34:36 Keith [facility] RED BLOOD CELLS [facility] HEMODIALYSIS INPATIENT 2020-10-27 07:47:37 Keith [facility] BASIC METABOLIC PANEL 2020-10-27 04:39:00 Sebas Huang [facility] (7) [facility] CBC W/PLT COUNT & AUTO 2020-10-27 04:39:00 Suzan Magdaleno [facility] BASIC METABOLIC PANEL 2020-10-26 03:41:00 Reina [facility] (7) [facility] CBC W/PLT COUNT & AUTO 2020-10-26 03:41:00 Suzan Magdaleno [facility] TISSUE EXAM 2020-10-25 18:39:00 Sebas Huang [facility] CYSTOSCOPY,INSERTION 2020-10-25 17:37:[address] [facility] URETERAL STENTS [facility] POTASSIUM 2020-10-25 13:16:00 Cuauhtemoc Dixon [facility] HEPATITIS B SURFACE 2020-10-25 09:18:00 Robert Hector [facility] HEMODIALYSIS INPATIENT 2020-10-25 08:42:58 Fatouvtvik [facility] BASIC METABOLIC PANEL 2020-10-25 06:09:00 Reina [facility] (7) [facility] PHOSPHORUS 2020-10-25 06:09:00 Tawny Holdernesskatie [facility] CBC (HEMOGRAM ONLY) 2020-10-25 06:09:00 [facility] TYPE AND SCREEN, 2020-10-24 13:45:00 Sebas Huang [facility] kes AUTOMATED [facility] HEPATITIS B SURFACE 2020-10-23 14:18:00 [facility] ANTIGEN [facility] HEMODIALYSIS INPATIENT 2020-10-23 11:41:00 [facility] BASIC METABOLIC PANEL 2020-10-23 04:31:00 [facility] (7) [facility] CBC W/PLT COUNT & AUTO 2020-10-23 04:31:00 Yuliet [facility] SARS-COV2/RT-PCR ([facility] & 2020-10-22 23:20:[address] [facility] REF LABS) [facility] CT ABDOMEN/PELVIS WITH 2020-10-22 21:31:00 [facility] IV CONTRAST [facility] CBC W/PLT COUNT & AUTO 2020-10-22 21:12:00 [facility] Center URINE CULTURE 2020-10-22 11:48:00 Sebas Huang [facility] BASIC METABOLIC PANEL 2020-10-22 11:48:[address] [facility] (7) [facility] CBC W/PLT COUNT & AUTO 2020-10-22 11:48:[address] [facility] DIFFERENTIAL [facility] PT/APTT 2020-10-22 11:48:00 Sebas Huang CHIk es [facility] TYPE AND SCREEN, 2020-10-22 11:48:00 Sebas Huang [facility] AUTOMATED [facility] CT ABDOMEN/PELVIS WITH & 2020-09-21 13:12:00 Sebas Huang WITHOUT IV CONTRAST [facility] er MR ABDOMEN WITHOUT IV 2020-09-02 11:20:00 Sebas Huang [facility]I CONTRAST [facility] MR PELVIS WITHOUT IV 2020-09-02 11:20:00 Sebas Huang [facility] CONTRAST [facility] TISSUE EXAM 2020-08-31 12:53:[address] [facility] FL FLUORO NON-SPECIFIC 2020-08-31 12:50:00 Sebas Huang [facility] UP TO 1 HOUR [facility] CYSTOSCOPY,INSERTION 2020-08-31 11:42:00 Sebas Huang [facility] URETERAL STENTS [facility] CBC W/PLT COUNT & AUTO 2020-08-31 04:50:00 [facility] COMPRE[facility]IVE METABOLIC 2020-08-31 04:50:00 Pedro Farris CH I [facility] MAGNESIUM 2020-08-31 04:50:00 [facility] NM MYOCARDIAL PERFUSION 2020-08-30 16:44:00 Sebas Huang [facility] SPECT, PHARM(LEXISCAN) [facility] enter HEMODIALYSIS INPATIENT 2020-08-30 11:55:05 AngelinauJluis gramajo [facility] CBC W/PLT COUNT & AUTO 2020-08-30 05:14:00 Arianna Whitt [facility] LIPID PANEL 2020-08-30 05:14:00 Ty, [facility] 2D ECHO W/ DOPPLER 2020-08-29 13:22:39 Ty, [facility] (CW/PW/COLOR) [facility] T4, FREE 2020-08-29 12:22:00 Ty, [facility] TSH 2020-08-29 12:22:00 Ty, [facility] FERRITIN 2020-08-29 12:22:00 Ty, [facility] VITAMIN B12 2020-08-29 12:22:00 Ty, [facility] PSA 2020-08-29 12:22:00 Ty, [facility] US RENAL COMPLETE 2020-08-29 11:15:00 Reina, Sebas [facility] BRAIN WITHOUT IV 2020-08-29 05:02:00 Steve Welsh CH I [facility] TROPONIN I 2020-08-29 04:21:00 Owen Jhaveri [facility] BASIC METABOLIC PANEL 2020-08-29 04:21:00 Demianstevan [facility] () [facility] CBC W/PLT COUNT & AUTO 2020-08-29 04:21:00 Jose Eduardo [facility] RETICULOCYTE COUNT 2020-08-29 04:21:00 Humberto Reed [facility] OCCULT BLOOD, STOOL 2020-08-29 02:52:00 Owen Jhaveri [facility] TROPONIN I 2020-08-28 16:08:00 Owen Jhaveri [facility] HEPATITIS B SURFACE 2020-08-28 16:06:00 Keith [facility] HEPATITIS B SURFACE 2020-08-28 15:26:[facility] HEMODIALYSIS INPATIENT 2020-08-28 11:36:37 [facility] TROPONIN I 2020-08-28 05:56:00 Owen Jhaveri [facility] CBC W/PLT COUNT & AUTO 2020-08-28 05:56:00 Pedro Farris [facility] BASIC METABOLIC PANEL 2020-08-28 05:56:00 Pedro Farris [facility] () [facility] [facility] ECG 12-LEAD 2020-08-28 01:21:18 Unknown, Hl7 [facility] HEMOGLOBIN A1C 2020-08-28 01:19:00 Owen Jhaveri [facility] URINE CULTURE 2020-08-28 01:05:00 Owen Jhaveri [facility] URINALYSIS W/ REFLEX 2020-08-28 01:05:00 Owen Jhaveri [facility] URINE CULTURE [facility] CBC W/PLT COUNT & AUTO 2020-08-28 01:05[facility]00 [facility] METABOLIC 2020-08-28 01:05:[address] [facility] MAGNESIUM 2020-08-28 01:05:00 Owen Jhaveri [facility] PHOSPHORUS 2020-08-28 01:05:00 Emilio [facility] PROTHROMBIN TIME/INR 2020-08-28 01:05:00 Owen Jhaveri [facility] HEPATIC FUNCTION PANEL 2020-08-28 01:05:00 Emilio [facility] LIPID PANEL 2020-08-28 01:05:00 [facility] - 2020-08-27 00:00:00 ProviderYoko [facility] ENDOSCOPY SCAN Scanning [facility] MI AN ELECTIVE 2020-07-29 14:11:47 Rafael lBas spital ENDOTRACHEAL AIRWAY THROMBECTOMY, GRAFT, AV 2020-07-29 13:39:00 Jose Monique [facility] POTASSIUM, SYRINGE 2020-07-29 13:00:[address] [facility] POTASSIUM, SYRINGE 2020-07-29 12:11:[address] [facility] HEMOGLOBIN, SYRINGE 2020-07-29 12:11:00 Jose Monique [facility] GLUCOSE LEVEL, SYRINGE 2020-07-29 12:11:00 Jose Monique [facility] ECG PRE/POST OP 2020-07-27 21:26:54 Rose Garcia [facility] HEMOGLOBIN A1C 2020-07-27 21:19:00 Rose Garcia [facility] HEMOGLOBIN 2020-07-27 21:19:00 Jose Monique [facility] POTASSIUM LEVEL 2020-07-27 21:19:00 [facility] GLUCOSE LEVEL 2020-07-27 21:19:00 [facility] COVID-19 QUALITATIVE 2020-07-27 20:57:00 [facility] RT-PCR RHYTHM STRIP - SCAN 2020-02-19 12:30:59 Provider, Default [facility] Plan of Care Planned Activity Planned Date Details Comments Source Future Scheduled 2021-11-22 CT CHEST W ABD/PELVIS Expected: [employer] [facility] 00:00:00 WO/W [code = 87070] 11/22/2021, of Medic ine Expires: 11/08/2022 Future Scheduled 2021-11-16 Pneumococcal 65+ (1 - [employer] [facility] 09:20:36 PCV) [code = of Medicine Pneumococcal 65+ (1 - PCV)] Future Scheduled 2021-11-16 TETANUS SHOT (ADULT) [employer] [facility] 09:20:36 [code = TETANUS SHOT of Medi cine (ADULT)] Future Scheduled 2021-11-16 Hepatitis C screening [employer] [facility] 09:20:36 (procedure) [code = of Medic ine 866427444] Future Scheduled 2021-11-16 ZOSTER VACCINE (1 of [employer] [facility] 09:20:36 2) [code = ZOSTER of Medicin e VACCINE (1 of 2)] Future Scheduled 2021-11-16 Screening for [employer] [facility] 09:20:36 malignant neoplasm of of Med icine lung (procedure) [code = 066265146] Future Scheduled 2021-11-16 MEDICARE AWV [employer] [facility] 09:20:36 (Initial) [code = of Medicin e MEDICARE AWV (Initial)] Future Scheduled 2021-11-16 COVID-19 Vaccine (3 - [employer] [facility] 09:20:36 Booster for Pfizer of Medici ne series) [code = COVID-19 Vaccine (3 - Booster for Pfizer series)] Future Scheduled 2021-11-16 FLU VACCINE > 6 [employer] [facility] 09:20:36 MONTHS [code = [...] PCV13)] Future Scheduled 2021-11-08 TETANUS SHOT (ADULT) [employer] [facility] 18:18:33 [code = TETANUS SHOT of Medi cine (ADULT)] Future Scheduled 2021-11-08 Hepatitis C screening [employer] [facility] 18:18:33 (procedure) [code = of Medic ine 983580570] Future Scheduled 2021-11-08 ZOSTER VACCINE (1 of [employer] [facility] 18:18:33 2) [code = ZOSTER of Medicin e VACCINE (1 of 2)] Future Scheduled 2021-11-08 MEDICARE AWV [employer] [facility] 18:18:33 (Initial) [code = of Medicin e MEDICARE AWV (Initial)] Future Scheduled 2021-11-08 COVID-19 Vaccine (3 - [employer] [facility] 18:18:33 Booster for Pfizer of Medici ne series) [code = COVID-19 Vaccine (3 - Booster for Pfizer series)] Future Scheduled 2021-11-08 FLU VACCINE > 6 [employer] [facility] 18:18:33 MONTHS [code = FLU of Medici ne VACCINE > 6 MONTHS] Future Scheduled 2021-11-08 FALL SCREEN [code = [employer] [facility] 18:18:33 FALL SCREEN] of Medicine Future Scheduled 2021-11-08 CULTURE, Ordered: [employer] [facility] 18:12:34 URINE/SENSITIVITY ON 11/08/2021 of Medi cine ALL [code = 12238-7] Future Scheduled 2021-11-08 MI INSERT,TEMP Ordered: [employer] [facility] 18:07:27 INDWELLING BLAD 11/08/2021 of Medicine CATH,SIMPLE [code = 34286] Future Scheduled 2021-10-13 CULTURE, Ordered: [employer] [facility] 13:10:20 URINE/SENSITIVITY ON 10/13/2021 of Medi cine ALL [code = 48722-5] Future Scheduled 2021-10-13 CBC W/AUTO DIFF WITH Ordered: [employer] [facility] 13:10:20 PLATELETS [code = 10/13/2021 of Medicin e 58799-7] Future Scheduled 2021-10-13 COMPREHENSIVE Ordered: [employer] [facility] 13:10:20 METABOLIC PANEL [code 10/13/2021 of Med icine = 79369-4] Future Scheduled 2021-10-13 PROTIME-INR [code = Ordered: [employer] [facility] 13:10:20 5902-2] 10/13/2021 of Medicine Future Scheduled 2021-10-13 CANCER ANTIGEN 125 Ordered: [employer] [facility] 13:10:20 [code = 10339-6] 10/13/2021 of Medicine Future Scheduled 2021-10-13 CEA [code = 2039-6] Ordered: [employer] [facility] 13:10:20 10/13/2021 of Medicine Future Scheduled 2021-10-13 CANCER ANTIGEN 19-9 Ordered: [employer] [facility] 13:10:20 [code = 65643-7] 10/13/2021 of Medicine Future Scheduled 2021-10-13 Pneumococcal 65+ (1 [employer] [facility] 13:06:26 of 4 - PCV13) [code = of Med icine Pneumococcal 65+ (1 of 4 - PCV13)] Future Scheduled 2021-10-13 TETANUS SHOT (ADULT) [employer] [facility] 13:06:26 [code = TETANUS SHOT of Medi cine (ADULT)] Future Scheduled 2021-10-13 Hepatitis C screening [employer] [facility] 13:06:26 (procedure) [code = of Medic ine 394828150] Future Scheduled 2021-10-13 ZOSTER VACCINE (1 of [employer] [facility] 13:06:26 2) [code = ZOSTER of Medicin e VACCINE (1 of 2)] Future Scheduled 2021-10-13 FALL SCREEN [code = [employer] [facility] 13:06:26 FALL SCREEN] of Medicine Future Scheduled 2021-10-13 MEDICARE AWV [employer] [facility] 13:06:26 (Initial) [code = of Medicin e MEDICARE AWV (Initial)] Future Scheduled 2021-10-13 COVID-19 Vaccine (3 - [employer] [facility] 13:06:26 Booster for Pfizer of Medici ne series) [code = COVID-19 Vaccine (3 - Booster for Pfizer series)] Future Scheduled 2021-10-13 FLU VACCINE > 6 [employer] [facility] 13:06:26 MONTHS [code = FLU of Medici ne VACCINE > 6 MONTHS] Future Scheduled 2021-08-[address] [facility] 00:[facility]:00 [facility] colon (procedure) [code = 801380154] Future Scheduled 2021-02-[address] [...] 00:00:00 (1 of 1 - Medical Center [id number] PCV13) [code = PNEUMOCOCCAL 65+ YRS (1 of 1 - [id number]_Ffrocvg PCV13)] Future Scheduled 1995 SHINGLES VACCINES (1 [...] [facility] (procedure) [code = Hospital 659473346] Future Scheduled COLONOSCOPY SCREENING [facility] [...] Type Clinicians Facility Department ID 2021-04-03 Outpatient [facility] Surgery [id number] [facility] 11:01:56 SEBAS 2021-04-02 Outpatient [facility] Surgery [id number] [facility] 16:32:40 SEBAS 2021-04-02 Inpatient ER PEDRO FARRIS [facility] [id number] [facility] 06:41:40 Med 2021-03-30 Inpatient TREVOR [facility] Surgery [id number] [facility] 02:21:06 BIN 2021-12-13 2021-12-13 Outpatient ADELINA GORMAN [facility] [id number] [facility] 09:42:01 09:42:01 ENID 2021-12-13 2021-12-13 Outpatient ADELINA SOLORZANO [facility] [id number] [facility] 00:00:00 00:00:00 DORA 2021-11-29 2021-11-29 Outpatient [facility] [id number] [facility] 00:00:00 23:59:00 [facility] 2021-11-29 2021-11-29 Emergency ER ALEKSANDRA PELAEZ [facility] Emergency [id number] [facility] 11:55:00 21:51:00 2021-11-15 2021-11-15 Office ELI BENITES [facility] 1.2.840.114 [id number] [facility] 13:47:45 15:31:33 Visit Avril 350.1.13.21 Co llege 0.2.7.2.686 of [id number] Medi rylee 504 e 2021-11-15 2021-11-15 Outpatient LACY MAO [facility] [id number] [facility] 09:18:30 10:14:07 [place] [facility] [employer] [facility] 2021-11-10 2021-11-10 Outpatient [facility] [id number] [facility] 11:41:30 11:41:30 [facility] 2021-11-08 2021-11-10 Office LACY KNOWLES 1.2.840.114 [id number] [facility] 14:38:08 09:47:33 Visit [facility] [employer] 350.1.13.21 College Y 0.2.7.2.686 of [id number] Medi rylee 300 e 2021-10-28 2021-10-29 Outpatient ADELINA KNOWLES [facility] Surgery [id number] [facility] 05:35:00 17:09:00 KRYSTIAN 2021-10-28 2021-10-28 Outpatient [facility] [id number] [facility] 00:00:00 23:59:00 [facility] 2021-10-26 2021-10-26 [facility] [id number] [facility] 11:32:11 23:59:00 2021-10-25 2021-10-25 Outpatient LACY KNOWLES [facility] [id number] [facility] 13:48:08 16:40:17 [facility] 2021-10-20 2021-10-20 Outpatient REINA, [facility] [id number] [facility] 00[facility]00 [facility] 2021-10-18 2021-10-18 Outpatient REINA [facility] [id number] [facility] 00:[facility]00 00:00:00 [facility] 2021-10-13 2021-10-13 Office LACY KNOWLES 1.2.840.114 [id number] [facility] 10:16:19 16:18:00 Visit [place] AM[employer] 350.1.13.21 College Y 0.2.7.2.686 [id number] Medi rylee 300 e 2021-09-27 2021-09-27 Outpatient ADELINA HUANG, [facility] [id number] 11:13:43 13:24:06 [facility] 2021-09-20 2021-09-20 Outpatient REINA [facility] [id number] [facility] 10:49:19 12:41:40 [facility] 2021-08-12 2021-08-12 Outpatient REINA [facility] [id number] 09:00:39 10:05:10 [facility] 2021-08-11 2021-08-11 Outpatient REINA [facility] [id number] [facility] 00:[facility]00 00:00:00 [facility] 2021-06-07 2021-06-07 Outpatient ADELINA GORMAN [facility] [id number] [facility] 08:31:56 08:31:56 [place] 2021-05-26 2021-05-26 Outpatient ADELINA MURRAY [facility] [id number] [facility] 00:00:00 00:00:00 BIN 2021-04-26 2021-04-26 Outpatient EL [facility] [id number] [facility] 13:26:28 23:59:00 2021-04-26 2021-04-26 Outpatient EL REINA, [facility] [id number] [facility] 13:26:17 23:59:00 SEBAS 2021-04-21 2021-04-21 Outpatient REINA, [facility] [id number] 08:21:47 09:25:29 [facility] 2021-04-12 2021-04-12 Outpatient REINA, [facility] [id number] 00:00[facility]00 00:00:00 [facility] 2021-03-31 2021-03-31 Outpatient REINA, [facility] [id number] 08:49:29 10:07:05 [facility] 2021-03-24 2021-03-24 Outpatient SL[facility] [id number] [facility] 00:00:00 00:00:00 2021-03-24 2021-03-24 Outpatient EL [facility] [id number] [facility] 00:00:00 00:00:00 2021-03-24 2021-03-24 Outpatient REINA, [facility] [id number] 00:00[facility]00 00:00:00 [facility] 2021-03-22 2021-03-22 Outpatient REINA, [facility] [id number] 00:00[facility]00 00:00:00 [facility] 2021-03-17 2021-03-17 Outpatient EL [facility] [id number] [facility] 00:00:00 00:00:00 2021-03-17 2021-03-17 Outpatient REINA, [facility] [id number] 00:00[facility]00 00:00:00 [facility] 2021-03-11 2021-03-11 Outpatient EL [facility] [id number] [facility] 00:00:00 00:00:00 2021-02-17 2021-02-[address] [facility] [id number] 00:[facility]00 00:00:00 [facility] 2021-02-10 2021-02-[address] [facility] [id number] 13:12:47 14:02:58 visit [facility] 2021-01-27 2021-01-27 Outpatient REINA [facility] [id number] 00:00:00 00:00:00 [facility] 2021-01-27 2021-01-[address] [facility] [id number] 00:00:00 00:00:00 Only [facility] 2021-01-13 2021-01-[address] [facility] [id number] 08:59:50 10:28:11 Visit [facility] 2020-12-07 2020-12-[address] [facility] [id number] 09:28:24 11:43:01 Visit [facility] 2020-12-02 2020-12-[address] [facility] [id number] 00:00:00 00:00:00 [facility] 2020-11-04 2020-11-[address] [facility] [id number] 08:50:13 10:38:54 Visit [facility] 2020-10-28 2020-10-28 Outpatient EL [facility] [id number] [facility] 00:00:00 00:00:00 2020-10-22 2020-10-27 [facility] Rayshawn Otero [facility] [id number] [facility] 20:30:00 17:53:00 Encounter Pedro Farris [facility] 2020-10-25 2020-10-25 Anesthesia Cuauhtemoc Dixon [place] uriel [facility] [id number] [facility] 17:37:00 18:41:00 Event Emili Oliveira [facility] 2020-10-25 2020-10-[address] [facility] [id number] 13:30:00 14:45:00 [facility] 2020-10-23 2020-10-23 Travel [facility] [id number] [facility] 00:00:00 00:00:00 [facility] 2020-10-22 2020-10-22 [facility] [id number] 11:47:21 20:29:00 Encounter [facility] 2020-10-22 2020-10-22 [facility] [id number] [facility] 20:14:00 20:14:00 2020-10-22 2020-10-22 Outpatient EL [facility] [id number] [facility] 00:00:00 00:00:00 2020-10-19 2020-10-19 Travel [facility] [id number] [facility] 00:00:00 00:00:00 [facility] 2020-10-19 2020-10-[address] [facility] [id number] 00:00:00 00:00:00 [facility] 2020-10-06 2020-10-[address] [facility] [id number] 00:00:00 00:00:00 [facility] 2020-09-30 2020-09-[address] [facility] [id number] 13:08:05 14:49:10 Visit [facility] 2020-09-21 2020-09-21 [facility] [id number] 12:18:35 23:59:00 Encounter [facility] 2020-09-21 2020-09-21 Outpatient EL [facility] [id number] [facility] 00:00:00 00:00:00 2020-09-20 2020-09-20 Outpatient EL [facility] [id number] [facility] 00:00:00 00:00:00 2020-09-16 2020-09-16 Outside [facility] [id number] 00:00:00 00:00:00 Orders [facility] 2020-09-13 2020-09-13 Office [facility] [id number] 15:09:40 17:08:47 Visit [facility] 2020-08-27 2020-09-02 [id number] 22:17:00 14:43:00 Encounter [facility] 2020-08-31 2020-08-31 Anesthesia Cuauhtemoc Dixon [facility] [id number] [facility] 11:42:00 13:11:00 Event Carroll Burton [facility] 2020-08-31 2020-08-31 Surgery [facility] [id number] 11:00:00 12:15:00 [facility] 2020-08-28 2020-08-[address] [facility] [id number] 00:00:00 00:00:00 Only [facility] 2020-08-27 2020-08-27 Travel [facility] [id number] [facility] 00:00:00 00:00:00 [facility] 2020-08-26 2020-08-26 Office Kayden 1.2.840.3 [id number] Methodi 14:27:45 16:08:33 Visit Jose Kelly50.1.[address] 3.430.2.7 Hospit a .3.481050 l .8 2020-08-26 2020-08-26 Travel 1.2.840.1 1.2.787.709 [id number] Methodi 00:00:00 00:00:[address] 3.430.2.7 0.2.7.3.698 Ho spita .3.596033 084.8 l .8 2020-08-02 2020-08-02 Travel 1.2.840.1 1.2.826.244 [id number] Methodi 00:00:00 00:00:[address] 3.430.2.7 0.2.7.3.698 Ho spita .3.932652 084.8 l .8 2020-07-30 2020-07-30 [facility] 1.2.840.3 [id number] Methodi 00:00:00 00:00:00 Jose Rodgers 22141.1.[address] 3.430.2.7 Hospit a .3.372434 l .8 2020-07-29 2020-07-29 [facility] 1.2.840.1 [id number] Methodi 05:10:00 11:27:00 Encounter Jose Rodgers 24404.1.[address] 3.430.2.7 Hospit a .3.052133 l .8 2020-07-29 2020-07-29 [facility] 1.2.840.1 [id number] Methodi 07:30:00 09:25:00 Jose Rodgers 01583.1.[address] 3.430.2.7 Hospit a .3.669216 l .8 2020-07-29 2020-07-29 Anesthesia Saud Villatoro 1.2.840.1 [id number] Methodi 07:40:00 09:17:00 Event Rose Garcia 73897.1.[address] 3.430.2.7 Hospit a .3.875187 l .8 2020-07-29 2020-07-29 Orders Damaris, 1.2.840.1 [id number] Methodi 00:00:00 00:00:00 Only Derrick Jeong 04996.1.[address] 3.430.2.7 Hospit a .3.915663 l .8 2020-07-29 2020-07-29 Travel 1.2.840.1 1.2.071.660 [id number] Methodi 00:00:00 00:00:[address] 3.430.2.7 0.2.7.3.698 Ho spita .3.247472 084.8 l .8 2020-07-27 2020-07-27 Pre-Admiss Kayden, 1.2.840.1 [id number] Methodi 14:35:19 15:35:19 ion Jose Rodgers 37574.1.[address] Testing 3.430.2.7 Hospit a .3.315979 l .8 2020-07-27 2020-07-27 Travel 1.2.840.1 1.2.097.077 [id number] Methodi 00:00:00 00:00:[address] 3.430.2.7 0.2.7.3.698 Ho spita .3.295796 084.8 l .8 2020-07-23 2020-07-23 Telephone Kayden, 1.2.840.2 [id number] Methodi 00:00:00 00:00:00 Jose Rodgers 78622.1.[address] 3.430.2.7 Hospit a .3.904076 l .8 2020-07-23 2020-07-23 Travel 1.2.840.1 1.2.561.527 [id number] Methodi 00:00:00 00:00:[address] 3.430.2.7 0.2.7.3.698 Ho spita .3.374736 084.8 l .8 2020-07-22 2020-07-22 Office Kayden 1.2.840.7 [id number] Methodi 14:38:20 15:37:56 Visit Jose Rodgers 78542.1.[address] 3.430.2.7 Hospit a .3.524829 l .8 2020-07-21 2020-07-21 Travel 1.2.840.1 1.2.718.601 [id number] Methodi 00:00:00 00:00:[address] 3.430.2.7 0.2.7.3.698 Ho spita .3.938820 084.8 l .8 2020-02-26 2020-02-[address] [facility] [id number] [facility] 10:18:16 10:14:49 Visit [facility] 2020-02-26 2020-02-26 [facility] [id number] [facility] 00:00:00 00:00:00 BIN 2020-02-03 2020-02-03 Outpatient TREVOR [facility] [id number] SLE 00:00:00 00:00:00 BIN 2020-01-30 2020-01-30 Outpatient [facility] [id number] SLE 00:00:00 00:00:00 Results Test Description Test Time Test Comments Results Result Comments Source HEPATITIS B SURFACE ANTIBODY 2021-12-09 19:31:15 Test Item Value Reference Range Interpretation Comme nts HEPATITIS B SURFACE ANTIBODY (BEAKER) (test code = 647) < mIU/mL <8.0 Career Placement Specialist ID - BSHEPATITIS B SURFACE [id number] 19:30:53 Test Item Value Reference Range Interpretation Comments HEPATITIS B SURFACE ANTIGEN (2) Nonreactive Nonreactive (BEAKER) (test code = 2585) Specimen is considered negative for HBsAg.CTA, CHEST, ABDOMEN - PELVIS, FOR [id number] 20:08:00Hx of ESRD on HD, next HD tomorrowUnlisted Reason for Exam - Click Yes and Enter Reason Below->No [facility] : 1945 Sex: MFINAL REPORT CTA, CHEST, ABDOMEN - PELVIS, FOR DISSECTION INDICATION: Thoracic aortic aneurysm (TAA), known, follow up COMPARISON: 04/26/2021. TECHNIQUE: Rapid acquisition axially oriented images were obtained from the level of the clavicles through the ischial tuberosities during the infusion of intravenous contrast for the purposes of angiography. Precontrast and venous ph ase imaging are also performed. Sagittal and coronal reformat images are provided in multiple series. 3-D volumetric reformatted images were created at a dedicated workstation. DOSE REDUCTION: Dose modulation, iterative reconstruction, and/or weight-based adjustment of the mA/kV was utilized to reduce the radiation dose to as low as reasonably achievable. VASCULAR FINDINGS:Aortic caliber: There is focal saccular aneurysmal dilatation at the aortic arch immediately distal to the origin of the left subclavian artery that has diameter of 2.4 cm, unchanged. There is diffuse aneurysmal dilatation of the descending thoracic and abdominal aorta with measurements of of 5.0 x 4.5 cm the level of the pulmonary trunk, 5.0 x 4.7 cm at the level of the hiatus, and 3.3 x 3.1 cm at the level of the renal arteries. Status post aortobiiliac endovascular repair without endoleak. No perinephric stranding.Gonzalez and lumen: No hematoma or luminal flap.Cervical vessel origins: No origin stenosis.Abdominal branch origins: No flow limiting stenosis. Atherosclerosis: Extensive atherosclerosis of the aorta and branching vessels.Pulmonary trunk and arteries: Normal calibers. Additional findings: None. NONVASCULAR FINDINGS: LUNGS AND AIRWAYS: Extensive bilateral pulmonary emphysematous changes similar to previous. A new pulmonary nodule is present in the right lower lobe abutting the major fissure with diameter of 0.7 cm (image 33). No separate airspace consolidation.PLEURA: The pleural spaces are clear.HEART AND MEDIASTINUM: The visualized thyroid gland is normal. No significant mediastinal, hilar, or axillary lymphadenopathy. Heart is normal size. Marked coronary atherosclerotic calcifications. No pericardial effusion. Hypoattenuating blood within the heart chambers compatible with anemia. HEPATOBILIARY: No suspicious hepatic lesions. Unchanged scattered bilateral hypoattenuating cysts some of which are too small to definitively characterize but are most likely cysts. Gallbladder is surgically absent. No star iary ductal dilatation.SPLEEN: No splenomegaly.PANCREAS: No focal masses or ductal dilatation. ADRENALS: No adrenal nodules.KIDNEYS/URETERS: Innumerable bilateral renal cysts compatible with adult polycystic kidney disease. There is severe right-sided hydronephroureter similar to previous with thinning of the cortex and there is central filling defect within the distended right ureter from the proximal right ureter to the bladder.PELVIC ORGANS/BLADDER: There is a lobulated mass arising from the domeof the bladder that has measurements of 5.3 x 3.4 x 3.4 cm and there is nodular wall thickening elsewhere within the bladder including at the right ureterovesicular junction. Diffuse perivesicular stran ding. These findings are significantly increased compared to 04/26/2021. PERITONEUM/RETROPERITONEUM: No free air or fluid.LYMPH NODES: There are several small subcentimeter lymph nodes adjacent to the bladder that are increased in size compared to prior. For instance, there is a lymph node that is 0.6 cm diameter (image [id number]). Unchanged mildly prominent retroperitoneal lymph nodes. GI TRACT: No distention or wall thickening. Appendix is normal. There are noninflamed colonic diverticula. BONES AND SOFTTISSUES: Unremarkable. IMPRESSION: 1. No acute aortic abnormality on CTA of the chest, abdomen, and pelvis. Unchanged appearance of the diffuse aneurysmal dilatation of the descending thoracic aortaand aortobiiliac stent, as described. Recommend vascular specialist referral if not already obtained. 2. 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 3. Filling defect within the right ureter is most suspicious for extension of tumor although blood clot would have a similar appearance. 4. Innumerable bilateral renal cysts and right hydronephroureter similar to previous. 5. The new 0.7 cm for a nodule in the right lower lobe is concerning for metastasis or secondary primary. 6. Severe pulmonary emphysema. Signed: Yessenia Perez Verified Date/Time: 11/29/2021 20:08:18 Electronically signed by: YESSENIA PEREZ MD on11/29/2021 08:08 PMRAD, CHEST, 2 [id number] 14:33:00Reason for exam:->hx of ESRD on HD,Low Hemoglobin [facility] : 1945 Sex: MFINAL REPORT INDICATION: hx of ESRD on HD, COMPARISON: 03/11/2021 TECHNIQUE: AP and lateral view of the chest. FINDINGS: Lines, tubes, and devices: None.Lungs and pleura: Emphysematous changes bilaterally, particularly in the upper lungs. Scattered linear atelectasis and scarring. No effusion.Heart and mediastinum: Normal heart size. Unremarkable mediastinal contours.Osseous structures: No acute abnormality.Other: None. IMPRESSION: 1.No acute intrathoracic abnormality.2.Emphysematous and fibrotic changes bilaterally. Signed: José Miguel Torres Verified Date/Time: 11/29/2021 14:33:42 Reading Location: [facility] Radiology Reading Room COMPREHENSIVE METABOLIC PANEL 2021-11-29 13:18:07 Test Item Value Reference Range Interpretation Comments TOTAL PROTEIN 7.1 gm/dL 6.0-8.3 Specimen sligh tly (BEAKER) (test code = hemoly zed 770) ALBUMIN (BEAKER) 3.4 g/dL 3.5-5.0 L Specimen sl ightly (test code = 1145) hemolyzed ALKALINE PHOSPHATASE 66 U/L 40-150 (BEAKER) (test code = 346) BILIRUBIN TOTAL 0.5 mg/dL 0.2-1.2 Specimen sli ghtly (BEAKER) (test code = hemoly zed 377) SODIUM (BEAKER) (test 138 meq/L 136-145 code = 381) POTASSIUM (BEAKER) 4.4 meq/L 3.5-5.1 Specimen slightly (test code = 379) hemolyzed CHLORIDE (BEAKER) 101 meq/L 98-107 (test code = 382) CO2 (BEAKER) (test 23 meq/L 22-29 code = 355) BLOOD UREA NITROGEN 23 mg/dL 7-21 H (BEAKER) (test code = 354) CREATININE (BEAKER) 5.85 mg/dL 0.57-1.25 H Specimen slightly (test code = 358) hemolyzed GLUCOSE RANDOM 111 mg/dL 70-105 H (BEAKER) (test code = 652) CALCIUM (BEAKER) 9.6 mg/dL 8.4-10.2 (test code = 697) AST (SGOT) (BEAKER) 26 U/L 5-34 Specimen slightly (test code = 353) hemolyzed ALT (SGPT) (BEAKER) 9 U/L 6-55 Specimen slightly (test code = 347) hemolyzed EGFR (BEAKER) (test 9 mL/min/1.73 ESTIMAT ED GFR IS code = 1092) sq m NOT ACCURATE CREATININE CLEARANCE IN PREDICTING GLOMERULAR FILTRATION RATE . ESTIMATED GFR I S 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 Career Placement Specialist ID - DBCBC W/PLT COUNT & AUTO [id number] 13:16:26 Test Item Value Reference Range Interpretation [...] PERCENT (BEAKER) (test code = 2801) TISSUE [id number] 15:48:24Surgical Pathology Report Case: [id number] Authorizing Provider: Krystian Knowles MD Collected: 10/28/2021 08:33 AM Ordering Location: [facility] Received: 10/28/2021 01:17 PM SERVICES Pathologist: [...] IDENTIFIED-SEE COMMENT Signing Pathologist Direct Phone Line: [phone] signed by Kami Madrigal MD on 11/08/2021 [...] will be issued in an addendum to follow.[id number] (X5), [address]40, [id number] year old man presented with gross hematuria, [...] Immunohistochemistry technical testing was performed at [facility], Pathology Laboratory where it was developed and [...] to perform high complexity clinical laboratory testing.[facility], Department of Pathology, [address] [place] [address], [facility]sdK[facility], [facility] of Pathology, [address] [place] [address], [facility], [facility] of [facility], [address] [place] [address], BDTM,POST-VOID RES,US,[id number] 00:00:00 Test Item Value Reference Range Interpretation Comments PVR (test code = 6116) cc/ml [facility] [id number] 07:58:26 Test Item Value Reference Range Interpretation [...] S 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 Career Placement Specialist ID - DBCBC W/PLT COUNT & AUTO [id number] 06:17:28 Test Item Value Reference Range Interpretation [...] PERCENT (BEAKER) (test code = 2801) PROTHROMBIN [id number] 06:49:16 Test Item Value Reference Range Interpretation Comments PROTIME (BEAKER) 15.4 seconds 11.9-14.2 H (test code = 759) INR (BEAKER) (test 1.24 See_Comment [Automat ed message] code = 370) The system [employer] generated this result transmitted ref erence range: <=5.90. The reference range was not used to int erpret this result as normal/abnormal . RECOMMENDED COUMADIN/WARFARIN INR THERAPY RANGESSTANDARD DOSE: 2.0 - 3.0 Includes: PROPHYLAXIS forvenous thrombosis, systemic embolization; TREATMENT for venous thrombosis and/or pulmonary embolus.HIGH RISK: Target INR is 2.5-3.5 for patients with mechanical heart valves.BASIC METABOLIC [id number] 06:48:04 Test Item Value Reference Range Interpretation [...] S 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 Career Placement Specialist ID - DBCBC (HEMOGRAM ONLY)2021-10-28 06:33:33 Test [...] (test code = 413) CT, CHEST, WITH [id number] 15:08:00Unlisted Reason for Exam - Click Yes and Enter Reason Below->No [facility] : 1945 Sex: [...] emphysema with areas of fibrosis. Signed: [facility]o [facility]the [facility] Verified Date/Time: 115:08:26 CT, [id number] 15:08:00Unlisted Reason for Exam - Click Yes and Enter Reason Below->NoWill this procedure require oral contrast?->No [facility] : 1945 Sex: MFINAL REPORT [...] with areas of fibrosis. Signed: Milo Hampton MDRthe institute of living Verified Date/Time: 115:08:26 TISSUE [id number] 15:37:48Surgical Pathology Report Case: [id number] Authorizing Provider: Sebas Huang, Collected: 03/28/2021 09:09 [...] FOR EVALUATION Signing Pathologist Direct Phone Line: [phone] signed by Ariana Victor MD on 03/29/2021 at 3:37 [id number] tumor, bladder tumorA.bladder tumor, right ureteral orifice;B. [...] entirely submitted into B1. MG/pl A-B Performed [facility], Department of Pathology, [address] [place], [place] [address], [facility], Department of Pathology, [address] [place] [address], [facility], [facility] of [facility]ology, [address] [place] [address], [id number] 07:31:01 Test Item Value Reference Range Interpretation Comments POTASSIUM (BEAKER) (test code = 5.9 meq/L 3.6-5.5 H 379) Career Placement Specialist ID - DSENSONOperator ID - DSENSONOperator ID - DSENSONOperator ID - DSENSONURINE [id number] 08:30:07 Test Item Value Reference Range Interpretation Comments CULTURE (BEAKER) (test code = 1095) No growth SARS-COV2/RT-PCR ([facility])2021-03-25 04:37:04 Test Item Value Reference Range Interpretation Comments SARS-COV2/RT-PCR (test code = Negative Negative 5779582) Negative result for this test determines that [...] the Goddard SARS-CoV-2 assay.Fact Sheet for Healthcare Providers:https://www.molecular.goddard/alfredo/RT SARS-CoV-2 HCP Fact Sheet 51- 877719.pdfFact Sheet for Healthcare Patients:https://www.molecular.goddard/alfredo/RT SARS-CoV-2 Patient Fact Sheet EN 51-548348Y1.pdfBASIC METABOLIC [id number] 13:21:06 Test Item Value Reference Range Interpretation [...] S 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 Career Placement Specialist ID - DSENSONOperator ID - DSENSONOperator ID - DSENSONOperator ID - DSENSONOperator ID - DSENSONOperator ID - DSENSONOperator ID - DSENSONOperator ID - DSENSONOperator ID - DSENSONOperator ID - DSENSONOperator ID - DSENSONOperator ID - DSENSONOperator ID - DSENSONCBC W/PLT COUNT & AUTO [id number] 13:08:14 Test Item Value Reference Range Interpretation [...] PERCENT (BEAKER) (test code = 2801) URINE [id number] 11:41:14 Test Item Value Reference Range Interpretation Comments CULTURE (BEAKER) (test <10,000 col/mL skin code = 1095) ramírez RAD, CHEST, 2 [id number] 13:50:00Reason for exam:->pre opShould this be performed at the bedside?->No [facility] : 1945 Sex: MFINAL REPORT [...] MDReport Verified Date/Time: 03/11/2021 13:50:52 [facility] BASI METABOLIC [id number] 12:05:00 Test Item Value Reference Range Interpretation [...] S 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 Career Placement Specialist ID - DSENSONOperator ID - DSENSONOperator ID - DSENSONOperator ID - DSENSONOperator ID - DSENSONOperator ID - DSENSONOperator ID - DSENSONOperator ID - DSENSONOperator ID - DSENSONOperator ID - DSENSONOperator ID - DSENSONOperator ID - DSENSONOperator ID - DSENSONPROTHROMBIN TIME/[id number] 11:43:47 Test Item Value Reference Range Interpretation Comments PROTIME (BEAKER) 11.6 seconds 9.3-12.0 Final Infor mation (test code = 759) (Auto Outp ut) INR (BEAKER) (test 1.05 See_Comment Final Inf ormation code = 370) (Auto Output) [Automated mess age] The system [employer] generated this result transmitted ref erence range: [...] (BEAKER) (test code = 2801) URINE CULTURE, [id number] 04:06:00 Test Item Value Reference Range Interpretation Comments Urine Culture, SEE NOTE CULTURE, UR INE, Routine (test ROUTINE Ny lacrosse player code = 9129189) Number: [id number] Test Status: Final Specimen Source: URINE Specimen [...] ANSWER AT DR OFFICE TO VERIFY TEST 601554 [facility] W/RFLX CULTURE, [id number] 22:06:00 Test Item Value Reference Range Interpretation Comments Specific [place], UA 1.014 1.005-1.03 (test code = 2965-2) pH, UA (test code = >=9.0 5.0-7.5 A 5803-2) Color, UA (test code [place] Yellow = 9796-4) Appearance (test code Cloudy Clear A = 4468233) WBC Esterase (test 1+ Negative A code = 3446642) Protein, UA (test 3+ Negative/T A code = 29542-3) Glucose, Urine (test Trace Negative A code = 49968-3) Ketones, UA (test Negative Negative code = 2514-8) Blood, UA (test code 3+ Negative A = 25894-0) Bilirubin, UA (test Negative Negative code = 5770-3) Urobilinogen,Semi-Qn 0.2 mg/dL 0.2-1 (test code = 6668032) Nitrite, UA (test Negative Negative code = 85678-8) Microscopic See below: Microscopic was Examination (test indicated and was code = 5876513) performed. Urinalysis Reflex Comment This speci men has (test code = 5346149) reflex ed to a Urine Culture. ТАТЬЯНА (test code = ТАТЬЯНА) Performed at: [facility] [id number] Director: Calderon Silver MD, Phone: [phone] Lab Interpretation Abnormal (test code = 25530-1) [facility] HospitalMICROSCOPIC [id number] 22:06:00 Test Item Value Reference Range Interpretation [...] ТАТЬЯНА (test code = ТАТЬЯНА) Performed at: [address] [place] [id number] Director: Calderon Silver MD, Phone: [phone] Lab Interpretation Abnormal (test code = 80203-6) [facility] HospitalPrepare Leuko-Red [id number] 23:54:00 Test Item Value Reference Range Interpretation Comments CROSSMATCH (test code = 2264) COMPATIBLE Unit ABO (test code = O Pos 4734663) UNIT NUMBER (test code = [id number] 934-0) Status (test code = 7114387) TX_TIMEINCHART Blood Bank Product (test code RED BLOOD CELLS = 2263) PRODUCT CODE (test code = X3235F41 933-2) [facility] HospitalTissue [id number] 10:04:00 Test Item Value Reference Range Interpretation Comments Case Report (test code Surgical Pathology = 104) Report Case: [id number] Authorizing Provider: Sebas Huang, Collected: 10/25/2020 06:39 PM Ordering Location: [address] Med/Surg Received: 10/26/2020 07:45 AM Pathologist: Ariana Victor MD Specimens: A) - Bladder Tumor, Bladder clots and right ureteral tumor B) - Bladder Biopsy, Left Wall, left bladder wall C) - Bladder Biopsy, Wall, posterior bladder wall DIAGNOSIS (test code = w0ixrISaYNBen2vhXILcnH 3220) FuZzEwMzNcZnRuYmpcdWMx IHtccnRmMVxlcGljOTIwMl mfyoAfDFPebWFgN2Dfmkmy QPgeSF5vES1yhAdmlSRumD ZtGZJrUvVyf1deu920jYCc a7ahLZIPngyoySp3uUhqF6 0js3N9RzynR90dkHFqGQae bGFpblxmczIwIEEuIEJMQU EARHJrH0mGUVJfKG0MJLFS K8cJLQHUHFAVPhXXYAGTVJ 0RWXMPCD2JB4m0ADDzhnWd BIQgRMhJO4kaD5PNSNKzPU IQMZhRWUaLXXRAOEMEBU3G RBKbOI6pHEYMLENFP3WSGH 8WQO8FSKcTIR5XYflOR9Ti LA9KC3YYI1oSCVJRYKBSHt FOVUxBVElPTiBUSVNTVUUg Gg6MTBWYKC2HYWHvpwToQS MeJNGHHK4RPMrSRqNZMQSm QV8KLdGUDCZYFXZBJFLYMI 1JTkEgUFJPUFJJQVxwYXIg ICAgLSBOTyBERUZJTklUSV GVCF6HR8DSTDDVCZRxSXTW KXRTUWBMDzZGMsWXLB8BVV IYCdXOFhQUKALPOA0AWXWw odfzEUFbKh2jLQEMFIEEVI AMYKRXHZqMIHqsUVYPI0ZB YDwkvJNrAPPuLP2qPSXSRS cGVFvQYFUZDGRHY3KvLH1E B0NKCPTDGANUUsNYHNiAX1 3TZoDVCCUexpMrPYClBK6C WH0CS8KVCZZNOTBnDLKNTN OUUPCYOrEBCmPHMV9NDBCR WhVYCtNFQXRYKL3ZNMVhmS AnBFJyuhSKKqXVM3DYOJKQ L3ApUomQHKATSuFROMqIUG WXUZ7RO2f9GTAtyzHgURRv VYVPL7JIDQoNNUohMESRW7 ANJYMTPGtKVXmGVGSBL3Kp WQMZLAaTGW8YQPAsmUBiGZ PdTW5hHWAVJ3VFILEXTeMN If4HAvhHXNxIYKWSNTVCXn YzlRBcHUNsthNDPg5hbFma CCX3u5ntbGCcPKShwGCqIW AwMFxhbnNpXGRlZmxhbmcx TEXuFVM1vgKeOXXkOZjeMK QqQHfgJb4amFZieGzySlUu VITok2sdbsBPcwjkgCz1o4 jbSHLaUmR0rJDsMUjqA6bg hrRsqGTtPPEmURt8fE67SQ EtxN3vaVWmZFektzHjXhC9 CDzkRDZnMqE2EXVlrCVsKK NoU4zpYZBfJKkkDIPkPRzt uSPxUSW5fThck5L3xCFzyB TfnQwiZkEkJoAaLrHPu2La YFq5wChiB6DlEWUaGjZ6uS QgUGFyYWdyYXBoIEZvbnQ7 jJ80YYmnybS2kCKjr9Tda4 8qk161qP8xuZXzLKN7TAAb FAObeRAnIXSqRML6NTRmhB CdL0gbAHGaXJ5hmpcpNBpw EYoyLSMwhWB0PSApzXPeJ3 KnCOFmGFjvZZGjiut1MuNg Ig8ycEEtlBnfNCrqu2vkp8 zheAVaJyc8KUHoEfLgKogm LGdse2Wbp2xwZUShvf1jRV V4lHTjfDlzp2O1cWSnBMZw pHUjFTZuAJ8dbAXjXQXfmH 5ucmxjXHBnYnJkcmhlYWRc fAffmtEkNe4agNdoDEM3EH mgN0zioF2iYbQ3NGpgV2ds cY3qFSa9JLksPAIkpMK3ft Z4BNSboLGgP3TiyY2bJRCf ZY0cbwm3o8aiXFA5CJlxCX TnHbD2rdO6FYKppNTgGSAa lKflXKxxt232IVS1IoMxXT Ggo6RtC9CmvOdnI06jfBrz A19jEOLmrWjqlB3ktSqpyM 2bGlYiUbYkMLccyBptDS7i PANgT5azcAHuDEUzMOZmJ6 lrEaRszP5ivVhsDPhbsxPt NMUrIfo1OMJxjJXvYPRpWd p1YSKuPMUzI80qbotkZDL3 lZ9xb1met0JaBAbvHNC1HH Wtx32dIJlgbhQ1YTtdZo99 FInhEdD0IMxyESE8zZ== CPT Code(s) (test code m9mlxUArWIPrzQM5TeBhIQ = 3357) All6plv6MmdVVatEKgNBjf uTGkzqVvui79cXF7rX82NL 2mKFOgZiR3PCBvfbJ7Jpf4 YQNcHZDguXVwM418d3cda2 aqqyLrmZT0yWinWOTpTOFd YWluXGZzMjAgODgzMDUgeD NccGFyfQ== CLINICAL HISTORY (test m7yvdVCzTTUmwMC1MtWvBZ code = 3356) Psw1rqn6LmdFVspJLpMOek wVOjirLuuz09ySK8qC16EX 0sCHVtBsO0GOHghxH5Ebo3 XKHzHHIzeWYpB474w1tmh4 gzwyIyaVQ5uWwtRVMiHSEd WLphAHZkEbAqSCMqQCQ1hi ckQHCna4VaZ6cegXExPGS3 zXWoZTDiAVNnfrWvQEA3rB 7aBRDgwf1= SPECIMEN SOURCE (test s4pjdRSdWRBvvQD0LvSsZS code = 3377) Hoq4bjc3OunXBuwPBfIJmw pBGrukFplz45mJU1qW23LO 0oKACkHiE9GKOsvmW4Uyh4 WDTeBCNkwSZdB395w1mka7 ibrxMdbLY0wLvuUNUtJGRy JUowRVQsPqFoWA4aJpdbXC ZdofHlsS27haZolfDpclib aHQgdXJldGVyYWwgdHVtb3 E2FIGvUEysUvKtXgegDNPw ysI3VZuuJaGXOpWMf5T2YI Gkw3HzNirvANMletR2ZYlf XHBhcn0= GROSS DESCRIPTION (test m2ltvMXySNVejVF1VyEwQY code = 3366) Vnb8bkg5FumWEqxYNpKNvz iEMtkmGcpr32lPY0kG86ET 8uXFAzPsF1NFHypeR7Kde8 QQEcBSMfgIRqL458x1rkx4 xpdkGtpDT3sDsgFOSeRQIt FWfdWHOcSvWxN5ZjS7gvBB 4gQSBpcyByZWNlaXZlZCBp peXqtUjgtEu8BSTzhwFvjQ BwHZijZUS4rBKnVVZdQTTh CRQoDZ94B2OfjbCbVNcluH VkaWNhbCByZWNvcmQgbnVt UdRrISXaLBBcOKKsI43xbU VkIGFzICJibGFkZGVyIHR1 kK9oOiIrnpUeS77uh7snvN Vob5XrlVEakUgejRCfzwOi DNMwk0fsDPPia8P0RVQxil PfpIWixXNpvALbo1GamX7c VIzmULS3NAUpESA8FAYiAU XvvC7aNRsaREYhEGOirCUx BZnqJZLouNFxi6SjCRHeYY GsfZbpIV03oXpzv3QgNoyb u7BiQ3itaM4qBv0qHUzeoV rwn6ZnAPJqOFckZB58grTr cmUgaWRlbnRpZmllZCBtZW VpbHDkkomuQG41JCwiCO3e MAibJL08OWXsWUgmFLDmV5 VuH4B1LX2yRWlnQFIef5E3 ZSBmcmFnbWVudHMgYXJlIG EpsIuiVCg1KMZ6Bd8scAOl ZCBpbnRvIEExIHRvIEEyIG FuZCByZXByZXNlbnRhdGl2 UDWbHZS8fR2lraBoYuR2aY XqBqwaf9XfI3ywyHGmscEn t2ZuxTs1cOWsRNsnzQ5sZP MuICBccGFyXHBhciBTcGVj kI5hosOITUjdQWKmB6Inku GoSKhoXXCooSQ1mAVxZUWb ZCBsYWJlbGVkIHdpdGggdG yyENGvbXvmloWyhjWbTY4b HUWsXZKeV8UyPNLwB36hOA KbiC4lUFKdXD6iJKBhs4tb mqT8DPLuOBEsGeJxOEVjES MnUuquqZX0UTqwTmMgm1Lq sKEjCA2hAWBsirJzc6BzRK 3uOATsiPwhgt11OV3qkVbk y1WzFNLaODtuFR93vdZ2kN J3XQgxQYDyLHQqqVLukdKm gyZebSFfoJQxsL0cxqHuf0 2fPVDxTGT1hANbhHKuIdWa K02hmkKdkUZnSN35oYNwlK ass8PyvLl0iPMmZWbkmB9g QjEuIFxwYXJccGFyIFNwZW NpbWVuIEMgaXMgcmVjZWl2 HODvyZ9ePcx4PTUzzpDgIG 6kXFpoWtMqHKAsb1l8yAP9 mBUqmGI2kSQszYveWD5jxG ErAN5pVTblFHbadnAdp7Dm VE85vIFnlxJqtmJhUJWolF duYXRlZCBhcyAiYmxhZGRl ceYtwE5nu1rzr8YqxMLbSV 9xFSBdxlNjo6RsWF0bNZOs iPhqxf75CS8nqArvz9VnLL EwTFpdAH35GWFfTTFvfFBb GW22SSPaMGtiUKtwPKR8CI Z7ZIQypCGvd2jqli1aNHvm EMFxw8X3JWUnhyEfvIZnxO BpcyBlbnRpcmVseSBzdWJt jIB9QWBfvC93ykQWDV9aHU VPLc9nvZUxlJShyQ== MICROSCOPIC DESCRIPTION f6vmeZXeVJSzwUA7CfZmTI (test code = 3371) Rtc3mcc0LglYZofKXrODia dPYcmeDibr65fZD5oO86HD 8qUJDoDzR0SHEjfpV9Inl0 JYMlZKNmdKRkL377h0uvx5 hbmoUjuPD4wKugVTTpFFFg CWamVBAjAdDzMR1VDrRTRW Oku1TzTOZlHNFphx2= Gross assessment was [facility] performed at ([facility], Department = 2777) of Pathology, [address] [place] [address], Technical component was [facility] performed at ([facility], = 2778) Department of Pathology, [address] [place] [address], Professional component [facility] was performed at ([facility], Department code = 2779) Pathology, [address] [place] [address], [facility] [id number] 10:04:00Surgical Pathology Report Case: [id number] Authorizing Provider: Sebas Huang, Collected: 10/25/2020 06:39 PM [facility] Received: 10/26/2020 07:45 AM [...] IS PRESENTMG/pl Signing Pathologist Direct Phone Line: [phone] signed by Ariana Victor MD on 10/27/2020 at 10:04 [id number] unspecified type, ureteral tumorA. Bladder clots and [...] entirely submitted into A1 to A2 and practice representative sections of the blood clot are [...] MG/pl A-C: Performed [facility], Department of Pathology, [address] [place] [address], [facility], Department of Pathology, [address] [place] [address], [facility] of [facility], [address] [place] [address], [facility] Metabolic [id number] 05:29:00 Test Item Value Reference Range Interpretation Comments Sodium (test code = 139 meq/L 529-077 9125-2) Potassium (test code = 5.1 meq/L 3.6-5.5 3-3) Chloride (test code = 102 meq/L 98-106 2074-0) CO2 (test code = 26 meq/L 20-29 2027-9) BUN (test code = 32 mg/dL 10-26 H 3094-0) Creatinine (test code 9.44 mg/dL 0.5-1.2 H = 2160-0) Glucose (test code = 107 mg/dL 70-110 2345-7) Calcium (test code = 8.8 mg/dL 8.5-10.5 74003-2) EGFR (test code = 5 mL/min/1.73 [place] [address]-1) NOT ACCURATE CREATININE CLEARANCE IN PREDICTING GLOMERULAR FILTRATION RATE . ESTIMATED GFR I S NOT APPLICABLE FOR DIALYSIS PATIENTS. ТАТЬЯНА (test code = ТАТЬЯНА) Career Placement Specialist ID - [id number] ID - [id number] ID - [id number] ID - [id number] ID - yutm17Hmhvwefg ID - fcbc34Slbugjyc ID - litv35Uzmsmrhm ID - syrm23Nlqiahhi ID - ozeu24Qkcklswd ID - dmez11Tronxuoc ID - rmmf85Eyxmrqwy ID - urbt89Wracdlpg ID - [id number] Lab Interpretation Abnormal (test code = 47756-4) [facility] METABOLIC [id number] 05:29:00 Test Item Value Reference Range Interpretation [...] S 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 Career Placement Specialist ID - [id number] ID - [id number] ID - [id number] ID - [id number] ID - pzlu47Ljcpwnlx ID - mirv91Xyjepjlk ID - cwbk41Abiratav ID - qhzy73Rgvxpwzs ID - fgcf66Rxmxsmqx ID - yloi52Oxnjltnq ID - txpz82Ahqstejm ID - [id number] ID - [id number] with platelet count + automated [id number] 05:09:00 Test Item Value Reference Range Interpretation Comments WBC (test code = 6690-2) 7.6 See_Comment [A utomated message] The system [employer] generated this result transmitted ref erence range: 4.0 - 10 .0 K/L. The refe rence range was not u sed to interpret this result as normal/abnor mal. RBC (test code = 789-8) 2.28 See_Comment L [Au tomated message] The system [employer] generated this result transmitted ref erence range: 4.20 - 5 .80 M/L. The refe rence range was not u sed to interpret this result as normal/abnor mal. MCHC (test code = 786-4) 31.3 See_Comment L [A utomated message] The system [employer] generated this result transmitted ref erence range: [...] See_Comment [Aut omated message] 777-3) The system [employer] generated this result transmitted ref erence range: 150 - 43 0 K/CU MM. The referen ce range was not u sed to interpret this result as normal/abnor mal. MPV (test code = 9.6 fL 6-11.5 16086-6) nRBC (test code = 413) 0 See_Comment [Aut omated message] The system [employer] generated this result transmitted ref erence range: [...] See_Comment [Aut omated message] 670) The system [employer] generated this result transmitted ref erence range: 1.80 - 8 .00 K/L. The refe rence range was not u sed to interpret this result as normal/abnor mal. # Lymphs (test code = 1.26 See_Comment L [Auto mated message] 414) The system [employer] generated this result transmitted ref erence range: 1.48 - 4 .50 K/L. The refe rence range was not u sed to interpret this result as normal/abnor mal. # Monos (test code = 0.84 See_Comment [Autom ated message] 415) The system [employer] generated this result transmitted ref erence range: 0.00 - 1 .30 K/L. The refe rence range was not u sed to interpret this result as normal/abnor mal. # Eos (test code = 416) 0.25 See_Comment [Au tomated message] The system [employer] generated this result transmitted ref erence range: 0.00 - 0 .50 K/L. The refe rence range was not u sed to interpret this result as normal/abnor mal. # Baso (test code = 417) 0.03 See_Comment [A utomated message] The system [employer] generated this result transmitted ref erence range: 0.00 - 0 .20 K/L. The refe rence range was not u sed to interpret this result as normal/abnor mal. Immature 1 % 0-0 H Granulocytes-Relative (test code = 2801) Lab Interpretation (test Abnormal code = 53929-3) [facility] W/PLT COUNT & AUTO [id number] 05:09:00 Test Item Value Reference Range Interpretation [...] (BEAKER) (test code = 2801) BASIC METABOLIC [id number] 05:21:00 Test Item Value Reference Range Interpretation [...] S 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 Career Placement Specialist ID - LITOOperator ID - LITOOperator ID - LITOOperator ID - LITOOperator ID - LITOOperator ID - LITOOperator ID - LITOOperator ID - LITOOperator ID - LITOOperator ID - LITOOperator ID - LITOOperator ID - LITOOperator ID - LITOCBC W/PLT COUNT & AUTO [id number] 04:38:00 Test Item Value Reference Range Interpretation [...] (test code = 2801) Hepatitis B surface [id number] 17:58:00 Test Item Value Reference Range Interpretation Comments Hep B S Ab (test code <8.0 See_Comment [Auto mated = 13668-3) message] The system which generated this result transmit radha reference range : <8.0 mIU/mL. Th e reference range was not used to interpret this result as normal/abnormal . ТАТЬЯНА (test code = ТАТЬЯНА) Career Placement Specialist ID - DB Lab Interpretation Normal (test code = 22549-4) [facility] [id number] 17:58:00 Test Item Value Reference Range Interpretation Comments HEPATITIS B SURFACE ANTIBODY < mIU/mL <8.0 (BEAKER) (test code = 647) Career Placement Specialist ID - [id number] 13:35:00 Test Item Value Reference Range Interpretation Comments Potassium (test code = 4.2 meq/L 3.6-5.5 2823-3) ТАТЬЯНА (test code = ТАТЬЯНА) Career Placement Specialist ID - [id number] ID - [id number] ID - [id number] ID - [id number] Lab Interpretation (test Normal code = 63110-4) [facility] 13:35:00 Test Item Value Reference Range Interpretation Comments POTASSIUM (BEAKER) (test code = 4.2 meq/L 3.6-5.5 379) Career Placement Specialist ID - [id number] ID - [id number] ID - [id number] ID - [id number] BASIC METABOLIC [id number] 06:45:00 Test Item Value Reference Range Interpretation [...] S 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 Career Placement Specialist ID - MITCHOperator ID - MITCHOperator ID - MITCHOperator ID - MITCHOperator ID - MITCHOperator ID - MITCHOperator ID - MITCHOperator ID - MITCHOperator ID - MITCHOperator ID - PHAEHHpznnvzyoj8739-56-41 06:44:00 Test Item Value Reference Range Interpretation Comments Phosphorus (test code = 5.9 mg/dL 2.5-4.5 H 2777-1) ТАТЬЯНА (test code = ТАТЬЯНА) Career Placement Specialist ID - MITCHOperator ID - MITCHOperator ID - MITCHOperator ID - STEVE Lab Interpretation Abnormal (test code = 42303-1) [facility] 06:44[facility]00 Test Item Value Reference Range Interpretation Comments PHOSPHORUS (BEAKER) (test code = 5.9 mg/dL 2.5-4.5 H 604) Career Placement Specialist ID - MITCHOperator ID - MITCHOperator ID - MITCHOperator ID - MITCHCBC (Hemogram only)2020-10-25 06:33:00 Test Item Value Reference Range Interpretation Comments WBC (test code = 6690-2) 10.6 See_Comment H [A utomated message] The system [employer] generated this result transmitted ref erence range: 4.0 - 10 .0 K/L. The refe rence range was not u sed to interpret this result as normal/abnor mal. RBC (test code = 789-8) 2.39 See_Comment L [Au tomated message] The system [employer] generated this result transmitted ref erence range: 4.20 - 5 .80 M/L. The refe rence range was not u sed to interpret this result as normal/abnor mal. MCHC (test code = 786-4) 31.0 See_Comment L [A utomated message] The system [employer] generated this result transmitted ref erence range: [...] See_Comment [Aut omated message] 777-3) The system [employer] generated this result transmitted ref erence range: 150 - 43 0 K/CU MM. The referen ce range was not u sed to interpret this result as normal/abnor mal. MPV (test code = 9.8 fL 6-11.5 90525-5) nRBC (test code = 413) 0 See_Comment [Aut omated message] The system [employer] generated this result transmitted ref erence range: 0 - 0 /1 00 WBC. The refere nce range was not u sed to interpret this result as normal/abnor mal. Lab Interpretation (test Abnormal code = 72582-8) [facility] (HEMOGRAM ONLY)2020-10-25 06:33:00 Test Item [...] (test code = 413) Type and screen, xofazgveb8439-58-32 14:42:00 Test Item Value Reference Range Interpretation Comments ABO/RH AUTOMATED (BEAKER) (test O POSITIVE code = 2260) Ab Scrn (test code = 890-4) NEGATIVE [facility]URINE [id number] 08:07:00 Test Item Value Reference Interpretation Comments [...] 13) >100,000 col/mL skin floraHepatitis B surface khzdyos7222-64-31 15:09:00 Test Item Value Reference Range Interpretation Comments HBsAg Screen (test code Nonreactive Nonreactive = 5195-3) ТАТЬЯНА (test code = ТАТЬЯНА) Career Placement Specialist ID - [id number] Lab Interpretation (test Normal code = 44468-4) [facility]HEPATITIS B SURFACE POLAMMM1428-05-98 15:09:00 Test Item Value Reference Range Interpretation Comments HEPATITIS B SURFACE ANTIGEN (2) Nonreactive Nonreactive (BEAKER) (test code = 2585) Career Placement Specialist ID - [id number] METABOLIC DOIRC8259-10-48 05:03:00 Test Item Value Reference Range Interpretation [...] S 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 Career Placement Specialist ID - [id number] ID - [id number] ID - [id number] ID - [id number] ID - [id number] ID - [id number] ID - [id number] ID - [id number] ID - [id number] ID - [id number] ID - [id number] ID - [id number] ID - [id number] W/PLT COUNT & AUTO QDXANYNGZQJD5777-77-00 04:56:00 Test Item Value Reference Range Interpretation [...] Xpert (test code = Negative, See Xpress 44511-3) external report SARS-CoV-2/F yuliet/RSV test for linked [...] Fact Sh eet for Healthcare Prov iders: https://www.[employer].As It Is/ Documents/Xpert %20Xpress %77WKES-RcD-6-F yuliet-RSV30 2-4508%20Rev.%2 0B%20HCP% 20Fact%20Sheet. pdf Fact Sheet for Healt hcare Patients: https://www.[employer] Is/ Documents/Xpert %20Xpress %67BMHD-HjY-8-F yuliet-RSV30 2-4507%20Rev.%2 0B%20Pati ent%20Fact%20Sh eet.pdf SARS-COV-2 SLSL Performed at:[facility] PERFORMING LAB Lora angeles1317 (test code = Shelton Nichols 87363-8) [place] Vasquez [address] ph: [phone] [facility] ([facility])2020-10-23 00:12:00 Test Item Value Reference Range Interpretation Comments SARS-COV2/RT-PCR Negative Not Detected, Performanc e of the Xpert (test code = Negative, See Xpress 7239533) external report SARS-CoV-2/F yuliet/RSV test for linked [...] sooner.Fact She et for Healthcare Prov iders: https://www.[employer]/ Documents/Xpert %20Xpress %02AHUX-ZaU-6-F yuliet- 2-4508%20Rev.%2 0B%20HCP% 20Fact%20Sheet. pdfFact Sheet for Healt hcare Patients: https://www.[employer]/ Documents/Xpert %20Xpress %82ZXSK-UoE-7-F yuliet-30 2-4507%20Rev.%2 0B%20Pati ent%20Fact%20Sh eet.pdf SARS-COV-2 SLSL Performed at:[facility] PERFORMING LAB Lora Baird nkinrl3715 (test code = Shelton Emersonpeter 8218183) [place] [address] ph: [phone] CT, GMDVJWF8632-11-19 22:34:00Unlisted Reason for Exam - Click Yes and Enter Reason Below->YesUnlisted Reason for Exam->known R ureteral tumor and r hydro, worsening R side pain, pt ESRD will dialyzeWill this procedure require oral contrast?->No [facility] : 1945 Sex: [...] 10/22/2020 22:34:38 CT abdomen pelvis with IV oudbrbps4392-74-61 22:34:00Interface, External Ris In - 10/22/2020 10:37 [...] Rodger Ramires MDReport Verified Date/Time: 10/22/2020 22:34:38 [facility] W/PLT COUNT & AUTO [id number] 21:18:00 Test Item Value Reference Range Interpretation [...] = 2801) CBC W/PLT COUNT & AUTO JGYCIZRPEFGP5308-40-54 12:53:00 Test Item Value Reference Range Interpretation [...] (BEAKER) (test code = 2801) BASIC METABOLIC [id number] 12:49:00 Test Item Value Reference Range Interpretation [...] S 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 Lab Interpretation Normal (test code = 86653-0) [facility] HospitalPT/[id number] 12:44:00 Test Item Value Reference Range Interpretation Comments PROTIME (BEAKER) (test 11.0 seconds 9.3-12.0 Final Information code = 759) (Auto Output) INR (BEAKER) (test 0.99 See_Comment Final Inf ormation code = 370) (Auto Output) [Automated mess age] The system [employer] generated this result transmit radha reference range [...] 2.5-3.5 for patients with mechanical heart valves.CT, [id number] 08:58:00Unlisted Reason for Exam - Click Yes and Enter Reason Below->NoWill this procedure require oral contrast?->No [facility] Shirin : 1945 Sex: MFINAL [...] MDReport Verified Date/Time: 09/22/2020 08:58:10 Reading Location: [facility] C013X [facility] Consult Reading Room CT abdomen/pelvis without & with IV gsuxwhcf1548-97-66 08:58:00 Interface, External Ris In - 09/22/2020 [...] diverticul osis. Tiny hiatal hernia. Signed: Irene Juarezeport Verified Date/Time: 09/22/2020 08:58:10 ReadingLocation: [facility] B1 C013X Ortho [facility], WITHOUT [id number] 15:11:00ESRD patientUnlisted Reason for Exam - Click Yes and Enter Reason Below->NoDeos the patient have an implanted electronic device?->No [facility] : 1945 Sex: [...] Barrett Verified Date/Time: 09/02/2020 15:11:40 Reading Location: [facility] Diagnostic Imaging Reading Room - [place] [address] MR, PELVIS, WITHOUT [id number] 15:11:00ESRD patientUnlisted Reason for Exam - Click Yes and Enter Reason Below->NoDeos the patient have an implanted electronic device?->No [facility] : 1945 Sex: MFINAL [...] Barrett Verified Date/Time: 09/02/2020 15:11:40 Reading Location: [facility] Diagnostic Imaging Reading Room - [place] [address] MR pelvis without IV qkldyvlg7471-10-23 15:11:00Interface, External Ris In - 09/02/2020 3:13 [...] Barrett Verified Date/Time: 09/02/2020 15:11:40 Reading Location: [facility] Diagnostic Imaging Reading Room - [place] [address] [facility] xishhkgw6681-75-64 15:11:00Interface, External Ris In - 09/02/2020 3:13 [...] to postcholecystectomy biliary reservoir effect. 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 The specimen is entirely submitted into A1-A6. MG/ew Performed [facility], Department of Pathology, [address] [place] [address], Dzfmwb [facility], Department of Pathology, [address] [place] [address], [facility], Department of [facility]ology, [address] [place] [address], NB, FLUORO, NON-SPECIFIC, UP TO 1 [id number] 12:50:00 Reason for exam:->Surgery [facility] : 1945 Sex: MFluoroscopic unit utilized for a procedure performed in the OR. No interpretation was requested. Refer to the operative report for findings. Refer to PACS for patient radiation dose information.FL fluoro non-specific up to 1 ckyz3661-52-27 12:50:00 Interface, External Ris In - 08/31/2020 12:55 PM CSTFluoroscopic unit utilized for a procedure performed in the OR. No interpretation was requested. Refer to the operative report for findings. Referto PACS for patient radiation dose information.[facility]2D Echo W/Doppler(CW/PW/Color)2020-08-31 08:09:56Ejection FractionSGRITMAN [facility] ECHO HEARTLAB MKCKESSON CPACSInterface, External Ris In - 08/31/2020 8:10 AM CSTTransthoracic Echocardiography Report (TTE) Demographics Patient Name JANEL LONDON Date of Study 08/29/2020 Gender Male Visit Number [id number] Race Unknown Room Number B531 Number Date of 1945 Referring Physician Age 75 year(s) Cancer Genetic Counselor Judi Mclaughlin [facility] Interpreting Humberto Reed Jr. MD [...] Gradient: 3.29 mmHg Estimated PASP: 42.39 mmHgCHI Specialty Hospital Of Southern CaliforniaComprehensive metabolic vlfle3618-83-93 06:56:00 Test Item Value Reference Range Interpretation Comments Protein, Total (test 6.7 See_Comment [Autom ated code = 2885-2) message] The system which generated this result transmitted reference range : 6.0 - 8.5 gm/dL . The reference range was not used to interpr et this result as normal/abnormal . Albumin (test code = 3.2 g/dL 3.5-5 L 21217-4) Alkaline Phosphatase 57 U/L 30-115 (test code = 6768-6) Total Bilirubin 0.4 mg/dL 0.1-1.2 (test code = 1975-2) Sodium (test code = 138 meq/L 427-542 1178-2) Potassium (test code 3.9 meq/L 3.6-5.5 = 2823-3) Chloride (test code 99 meq/L 98-106 = 2075-0) CO2 (test code = 26 meq/L 20-29 2028-9) BUN (test code = 30 mg/dL 10-26 H 3094-0) Creatinine (test 7.85 mg/dL 0.5-1.2 H code = 2160-0) Glucose (test code = 94 mg/dL 70-110 2345-7) Calcium (test code = 8.7 mg/dL 8.5-10.5 19222-9) AST (test code = 49 U/L 5-40 H 1920-8) ALT (test code = 55 U/L 5-50 H 1742-6) EGFR (test code = 7 mL/min/1.73 [place] [address]-7) m NOT ACCURATE CREATININE CLEARANCE IN PREDICTING GLOMERULAR FILTRATION RATE . ESTIMATED GFR I S NOT APPLICABLE FOR DIALYSIS PATIENTS. ТАТЬЯНА (test code = Career Placement Specialist ID - ТАТЬЯНА) LITOOperator ID - LITOOperator ID - LITOOperator ID - LITOOperator ID - LITOOperator ID - LITOOperator ID - LITOOperator ID - LITOOperator ID - LITOOperator ID - LITOOperator ID - LITOOperator ID - LITOOperator ID - LITOOperator ID - LITOOperator ID - LITOOperator ID - JUNITO Lab Interpretation Abnormal (test code = 54765-2) [facility] HospitalCOMPREHENSIVE METABOLIC [id number] 06:56:00 Test Item Value Reference Range Interpretation [...] S 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 Career Placement Specialist ID - LITOOperator ID - LITOOperator ID - LITOOperator ID - LITOOperator ID - LITOOperator ID - LITOOperator ID - LITOOperator ID - LITOOperator ID - LITOOperator ID - LITOOperator ID - LITOOperator ID - LITOOperator ID - LITOOperator ID - LITOOperator ID - LITOOperator ID - ITBNVetwcflyd2212-54-76 06:54:00 Test Item Value Reference Range Interpretation Comments Magnesium (test code = 2.1 mg/dL 1.5-3 56786-4) ТАТЬЯНА (test code = ТАТЬЯНА) Career Placement Specialist ID - LITOOperator ID - LITOOperator ID - LITOOperator ID - JUNITO Lab Interpretation (test Normal code = 13963-3) [facility] CaliforniaEbwczoJRSMLYBII6728-30-88 06:54:00 Test Item Value Reference Range Interpretation Comments MAGNESIUM (BEAKER) (test code = 2.1 mg/dL 1.5-3.0 627) Career Placement Specialist ID - LITOOperator ID - LITOOperator ID - LITOOperator ID - LITOCBC W/PLT COUNT & AUTO [id number] 06:31:00 Test Item Value Reference Range Interpretation [...] PERCENT (BEAKER) (test code = 2801) Lipid amssz0534-36-23 06:03:00 Test Item Value Reference Range Interpretation Comments Triglycerides (test 125 mg/dL code = 2571-8) Cholesterol (test code 92 mg/dL = 2093-3) HDL (test code = 27 mg/dL 5-9) LDL Calculated (test 40 mg/dL code = 93389-2) ТАТЬЯНА (test code = ТАТЬЯНА) Triglyceride Reference Range: Low Risk <150 Borderline 150-199 High Risk 200-499 Very High Risk >=500 Cholesterol Reference Range: Low Risk <200 Borderline 200-239 High Risk >240 HDL Cholesterol Reference Range: Low Risk >=60 High Risk <40 LDL Cholesterol Reference Range: Optimal <100 Near Optimal 100-129 Borderline 130-159 High 160-189 Very High >=190 Career Placement Specialist ID - [id number] ID - WJMV71Ubjasapr ID - ITLN83Tisrypwz ID - FHIV83Kkvrxxll ID - KIFU73Sucprwad ID - [id number] [facility] HospitalLIPID [id number] 06:03:00 Test Item Value Reference Range Interpretation [...] Borderline 130-159 High 160-189 Very High >=190 Career Placement Specialist ID - [id number] ID - RIQO88Ecnjlkft ID - VVRF35Njzozoph ID - WFCQ78Uzcmygkk ID - XJCK70Lernsqgc ID - [id number] W/PLT COUNT & AUTO [id number] 05:38:00 Test Item Value Reference Range Interpretation [...] H PERCENT (BEAKER) (test code = 2801) [id number] 19:47:00 Test Item Value Reference Range Interpretation Comments PSA (test code = 2857-1) 4.9 ng/mL 0-4 H ТАТЬЯНА (test code = ТАТЬЯНА) Career Placement Specialist ID - [id number] Lab Interpretation (test Abnormal code = 17301-9) [facility] HospitalPSA2021-03-07 19:47:00 Test Item Value Reference Range Interpretation Comments PROSTATE SPECIFIC ANTIGEN (BEAKER) 4.9 ng/mL 0.0-4.0 H (test code = 844) Career Placement Specialist ID - [id number] 18:56:00 Test Item Value Reference Range Interpretation Comments Ferritin (test code = 4479.50 ng/mL 22-322 H 2276-4) ТАТЬЯНА (test code = ТАТЬЯНА) Career Placement Specialist ID - [id number] ID - [id number] Lab Interpretation (test Abnormal code = 01677-9) [facility] HospitalFERRITIN2021-03-07 18:56:00 Test Item Value Reference Range Interpretation Comments FERRITIN (BEAKER) (test code = 4479.50 ng/mL 22.00-322.00 H 361) Career Placement Specialist ID - [id number] ID - [id number] I347248-79-62 18:33:00 Test Item Value Reference Range Interpretation Comments Vitamin B12 (test code = 919 pg/mL 211-911 H 2132-9) ТАТЬЯНА (test code = ТАТЬЯНА) Career Placement Specialist ID - [id number] Lab Interpretation (test Abnormal code = 89173-2) [facility] HospitalVITAMIN [id number] 18:33:00 Test Item Value Reference Range Interpretation Comments VITAMIN B12 (BEAKER) (test code = 919 pg/mL 211-911 H 774) Career Placement Specialist ID - [id number], qrhu3025-63-21 18:25:00 Test Item Value Reference Range Interpretation Comments Free T4 (test code = 0.90 ng/dL 0.9-1.8 3024-7) ТАТЬЯНА (test code = ТАТЬЯНА) Career Placement Specialist ID - [id number] Lab Interpretation (test Normal code = 40998-8) [facility] HospitalT4, [id number] 18:25:00 Test Item Value Reference Range Interpretation Comments FREE T4 (BEAKER) (test code = 655) 0.90 ng/dL 0.90-1.80 Career Placement Specialist ID - [id number] 18:22:00 Test Item Value Reference Range Interpretation Comments TSH (test code = 5.480 See_Comment [Automated 25072-7) message] The system which generated this result transmit radha reference range : 0.350 - 5.500 uIU/mL. The reference range was not used to interpret this result as normal/abnormal . ТАТЬЯНА (test code = ТАТЬЯНА) Career Placement Specialist ID - [id number] Lab Interpretation Normal (test code = 47057-0) [facility] HospitalTSH2021-03-07 18:22:00 Test Item Value Reference Range Interpretation Comments THYROID STIMULATING HORMONE 5.480 uIU/mL 0.350-5.500 (BEAKER) (test code = 772) Career Placement Specialist ID - [id number]/S, RENAL, AMLGDYJM3995-54-74 12:08:00Please include bladderReason for exam:->hematuria, history of polycystic kidney diseaseShould this be performed at the bedside?->Yes [facility] : 1945 Sex: MFINAL [...] Machado Verified Date/Time: 08/29/2020 12:08:20 Reading Location: [facility] C013 ConsultReading Room US renal lezxnnkz5902-95-95 12:08:00Interface, External Ris In - 08/29/2020 12:19 [...] CT for further evaluation. Signed: Oliver Rai Verified Date/Time: 08/29/2020 12:08:20 Reading Location: [facility] C013W Consult Reading Room [facility]ODY 2020-08-29 11:42:00 Test Item Value Reference Range Interpretation Comments HEPATITIS B SURFACE ANTIBODY < mIU/mL <8.0 (BEAKER) (test code = 647) Career Placement Specialist ID - FER MReticulocyte lusct4562-48-84 11:03:00 Test Item Value Reference Range Interpretation Comments % Retic (test code = 87647-0) 1.8 % 0.4-2.9 Lab Interpretation (test code = Normal 12235-6) [facility] HospitalRETICULOCYTE [id number] 11:03:00 Test Item Value Reference Range Interpretation Comments RETICULOCYTE COUNT PCT (BEAKER) (test 1.8 % 0.4-2.9 code = 575) Troponin [id number] 05:52:00 Test Item Value Reference Range Interpretation Comments Troponin I (test code = 0.22 ng/mL 0-0.15 HH 19703-3) ТАТЬЯНА (test code = ТАТЬЯНА) Troponin I [...] ZRES04 Lab Interpretation (test Abnormal code = 85950-1) [facility] HospitalTROPONIN [id number] 05:52:00 Test Item Value Reference Range Interpretation [...] failure, acidosis, acute neurological disease, and persistent tachyarrhythmia.Career Placement Specialist ID - [id number] METABOLIC GKQUM4385-95-66 05:32:00 Test Item Value Reference Range Interpretation [...] S 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 Career Placement Specialist ID - [id number] ID - ZOCX72Wncvzoog ID - LMVF28Uwhnazbu ID - EJZI09Llelczml ID - OXKT99Sclekiaj ID - SVDX95Vxxllrtr ID - AWHZ77Iimwplie ID - QHHV87Ruixgfii ID - WSHF88Erbgvnyp ID - ZEAR02Pzymfick ID - CDDP45Bzeouaqn ID - BVWH61Ocuocxmh ID - BHBK25HO, BRAIN, WITHOUT QRLDMCTQ6094-63-01 05:08:00Unlisted Reason for Exam - Click Yes and Enter Reason Below->YesUnlisted Reason for Exam->amsST. [facility] : 1945 Sex: MFINAL [...] recommended for further characterization. Signed: Yessenia Perez [place] Verified Date/Time: 08/29/2020 05:08:18 CT brain without IV ezsalurj3045-39-41 05:08:00Interface, External Ris In - 08/29/2020 5:11 [...] recommended for further characterization. Signed: Yessenia Perez Verified Date/Time: 08/29/2020 05:08:18 [facility] W/PLT COUNT & AUTO [id number] 04:50:00 Test Item Value Reference Range Interpretation [...] (BEAKER) (test code = 2801) Occult blood, taiji9845-65-15 03:55:00 Test Item Value Reference Range Interpretation Comments Occult blood (test code = 2335-8) Negative Negative Lab Interpretation (test code = Normal 53276-7) [facility] HospitalOCCULT BLOOD, YSYGM2425-27-59 03:55:00 Test Item Value Reference Range Interpretation Comments FECAL OCCULT BLOOD (BEAKER) (test Negative Negative code = 618) HEPATITIS B SURFACE [id number] 17:43:00 Test Item Value Reference Range Interpretation Comments HEPATITIS B SURFACE ANTIGEN (2) Nonreactive Nonreactive (BEAKER) (test code = 2585) Career Placement Specialist ID - CINTHIA V9613-62-50 16:41:00 Test Item Value Reference Range Interpretation [...] failure, acidosis, acute neurological disease, and persistent tachyarrhythmia.Career Placement Specialist ID - HARMAN [id number] 09:49:00 Test Item Value Reference Range Interpretation [...] failure, acidosis, acute neurological disease, and persistent tachyarrhythmia.Career Placement Specialist ID - RAHMABASIC METABOLIC PANEL 2020-08-28 07:01:00 [...] S 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 Career Placement Specialist ID - [id number] ID - TEYM45Ykdodeei ID - CUDG15Tarbppzm ID - ROMF35Ajzpqgko ID - ODTN59Lmbleqnf ID - RONQ64Mtddizeh ID - VSVL26Wbjmiiax ID - TFFP17Gcloyvgy ID - UFFV09Fytmqtoc ID - BOSO84Hwiohuba ID - SXDG21Lbqhczev ID - RMVY96Rrogvvde ID - [id number] W/PLT COUNT & AUTO [id number] 06:29:00 Test Item Value Reference Range Interpretation [...] PERCENT (BEAKER) (test code = 2801) Prothrombin time/SOX3215-86-18 02:15:00 Test Item Value Reference Interpretation Comments [...] valves. Lab Interpretation Abnormal (test code = 75682-0) [facility] HospitalPROTHROMBIN TIME/[id number] 02:15:00 Test Item Value Reference Range Interpretation Comments PROTIME (BEAKER) 12.4 seconds 9.3-12.0 H Final Infor mation (test code = 759) (Auto Outp ut) INR (BEAKER) (test 1.12 See_Comment Final Inf ormation code = 370) (Auto Output) [Automated mess age] The system whic h generated this result transmitted ref erence range: <=5.90. The reference range was not used to int erpret this result as normal/abnormal . RECOMMENDED COUMADIN/WARFARIN INR THERAPY RANGESSTANDARD DOSE: 2.0 - 3.0 Includes: PROPHYLAXIS forvenous thrombosis, systemic embolization; TREATMENT for venous thrombosis and/or pulmonary embolus.HIGH RISK: Target INR is 2.5-3.5 for patients with mechanical heart valves.COMPREHENSIVE METABOLIC YKPCN6556-03-29 02:11:00 Test Item Value Reference Range Interpretation [...] S 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 Career Placement Specialist ID - [id number] ID - HNNW53Vuzysivv ID - XMKB78Zzeedjde ID - GFRT82Aegtxzdd ID - FAXZ76Eviejodg ID - CWZZ44Phptlruq ID - CPQG84Adihaarx ID - PWZC32Gpkxeyzb ID - RIKU08Tzbxkzyv ID - XROK07FONFD UXZPT7407-72-90 02:10:00 Test Item Value Reference Range Interpretation [...] Borderline 130-159 High 160-189 Very High >=190 Career Placement Specialist ID - NZBM79Obzylnlb ID - MLZQ86Gibkfkuw ID - [id number] Urinalysis w/Microscopic + Reflex to [id number] 02:09:00 Test Item Value Reference Range Interpretation Comments Color, UA (test code = Red 5778-6) Clarity, UA (test code Turbid = 5767-9) Specific [place], UA 1.020 1.001-1.035 (test code = 5811-5) pH, UA (test code = 8.5 5.0-8.0 H 5803-2) Protein, UA (test code >=300 mg/dL Negative A = 37732-0) Glucose, UA (test code 100 mg/dL Negative A = 365) Ketones, UA (test code 15 mg/dL Negative A = 2514-8) Bilirubin, UA (test Positive Negative A code = 27353-8) Blood, UA (test code = Large Negative A 06328-9) Nitrite, UA (test code Positive Negative A = 5802-4) Leukocytes, UA (test Large Negative A code = 5799-2) Urobilinogen, UA (test >=8.0 0.2-1 H code = 44466-4) Bacteria, UA (test code Moderate = 25321-1) RBC, UA (test code = >100 See_Comment [Autom ated 799-7) message] The sy stem which generated this result transmitted reference range : /HPF. The refer ence range was not u sed to interpret th is result as normal/abnormal . WBC, UA (test code = 10-20 See_Comment [Autom ated 54812-1) message] The sy stem which generated this result transmitted reference range : /HPF. The refer ence range was not u sed to interpret th is result as normal/abnormal . SQUAMOUS EPITHELIAL 5-10 See_Comment [Automa radha (test code = 91693-0) messag e] The system which generated this result transmitted reference range : /HPF. The refer ence range was not u sed to interpret th is result as normal/abnormal . Specimen Source (test code = 2795) Lab Interpretation Abnormal (test code = 63832-1) [facility] [id number] 02:09:00 Test Item Value Reference Range Interpretation [...] SOURCE(BEAKER) (test code = 2795) Hepatic function [id number] 02:07:00 Test Item Value Reference Range Interpretation Comments Protein, Total (test 6.5 See_Comment [Autom ated code = 2885-2) message] The system which generated this result transmit radha reference range : 6.0 - 8.5 gm/dL . The reference range was not u sed to interpret th is result as normal/abnormal . Albumin (test code = 3.1 g/dL 3.5-5 L 66773-1) Total Bilirubin (test 0.5 mg/dL 0.1-1.2 code = 1975-2) Bilirubin, Direct 0.3 mg/dL 0-0.4 (test code = 1968-7) Alkaline Phosphatase 56 U/L 30-115 (test code = 6768-6) AST (test code = 35 U/L 5-40 1920-8) ALT (test code = 30 U/L 5-50 1742-6) ТАТЬЯНА (test code = ТАТЬЯНА) Career Placement Specialist ID - [id number] ID - [id number] ID - [id number] ID - [id number] ID - [id number] ID - [id number] ID - [id number] Lab Interpretation Abnormal (test code = 60645-6) [facility] [id number] 02:07:00 Test Item Value Reference Range Interpretation [...] (test code = 30 U/L 5-50 347) Career Placement Specialist ID - [id number] ID - [id number] ID - [id number] ID - [id number] ID - [id number] ID - [id number] ID - [id number] A1c 2020-08-28 01:48:00 Test Item Value Reference Range Interpretation Comments Hemoglobin A1C (test code 4.8 % 4.3-6.1 = 4548-4) ТАТЬЯНА (test code = ТАТЬЯНА) Career Placement Specialist ID - [id number] Lab Interpretation (test Normal code = 53746-7) [facility]MO[facility] [id number] 01:48:00 Test Item Value Reference Range Interpretation Comments HEMOGLOBIN A1C (BEAKER) (test code = 4.8 % 4.3-6.1 368) Career Placement Specialist ID - [id number] 01:42:00 Test Item Value Reference Range Interpretation Comments MAGNESIUM (BEAKER) (test code = 2.2 mg/dL 1.5-3.0 627) Career Placement Specialist ID - [id number] ID - [id number] ID - [id number] ID - [id number] 01:39:00 Test Item Value Reference Range Interpretation Comments PHOSPHORUS (BEAKER) (test code = 5.0 mg/dL 2.5-4.5 H 604) Career Placement Specialist ID - [id number] W/PLT COUNT & AUTO [id number] 01:37:00 Test Item Value Reference Range Interpretation [...] H PERCENT (BEAKER) (test code = 2801) [id number] 00:00:00Ordered by an unspecified provider.[facility] HospitalAirway2021-02-04 14:11:47WeRafael shea CRNA 07/29/2020 8:12 AMAirway Date/Time: [...] Number of Attempts at Approach: 1[facility], [id number] 13:20:20 Test Item Value Reference Range Interpretation Comments Potassium, syringe See_Comment [Automat ed message] The (test code = 2007) system [facility] generated this result tra nsmitted reference range : 3.5 - 5.0 mEq/L. The refe rence range was not used to interpret this result as normal/abnormal . [facility] qualitative [id number] 04:42:40 Test Item Value Reference Range Interpretation Comments Interpretation (test code = 4323045) COVID-19 qualitative RT-PCR Not-Detected Not-Detected result (test code = 19042-8) COVID-19 qualitative RT-PCR See link below for (test code = 7070) PDF Lab Report [facility] [place] [id number] 00:59:42 Test Item Value Reference Range Interpretation Comments Ventricular rate (test code = 253) Atrial rate (test code = 255) MI interval (test code = 266) QRSD interval [...] of 08-JUL-2014 11:47,-No significant change was found- [facility] RNA [Presence] in Respiratory specimen by MADYSON with probe [id number] 22:41:47 Test Item Value Reference Range Interpretation Comments SARS-CoV-2 (COVID-19) RNA Not detected Not-Detected [Presence] in Respiratory specimen by MADYSON with probe detection (test code = 55367-4) TISSUE [id number] 11:07:00Surgical Pathology Report Case: [id number] Authorizing Provider: Bin Murray, Collected: 02/12/2020 09:33 AM Ordering Location: [facility] Received: 02/12/2020 10:58 AM PERIOPERATIVE SERVICES Pathologist: Carlos Betancourt MD Specimen: Carotid, Left, LEFT CAROTID PLAQUE ARTERY, LEFT CAROTID, ENDARTERECTOMY:CALCIFIC ATHEROSCLEROTIC PLAQUE Signing Pathologist Direct Phone Line: [phone] signed by Carlos Betancourt MD on 02/17/2020 at 11:07 [id number]; [id number] carotid stenosis Carotid, LeftA. Received fresh labeled with the patient's name, medical record number and "parotid, left" is a previously incised portion of yellow plaque measuring 1.6 cm in length and 0.8 cm in diameter. Specimen is serially sectioned to reveal calcifications measuring up to 0.2 cm in thickness. Automation Tester sections are submitted in A1, following decalcification.SATISH Madrid PA ([facility])PerformedHEPATITIS B SURFACE [id number] 14:11:00 Test Item Value Reference Range Interpretation Comments HEPATITIS B SURFACE ANTIGEN (2) Nonreactive Nonreactive (BEAKER) (test code = 2585) Specimen is considered negative for HBsAg.POCT-GLUCOSE [id number] 13:03:00 Test Item Value Reference Range Interpretation Comments POC-GLUCOSE METER 83 mg/dL 70-110 : TESTED A T [facility] [address] [facility] (test code = [facility], 1538) [address]: Career Placement Specialist/Techni justus ID = [id number] for JOIE ROE [id number] 06:30:00 Test Item Value Reference Range Interpretation Comments ACTIVATED CLOTTING TIME 235 sec : 74 -137 seconds, (BEAKER) (test code = Baseli ne: TESTED AT 441) [facility] [address] [facility], 7[address] 30: Career Placement Specialist/Techni justus ID = [id number] for DON FARLEY BASIC METABOLIC [id number] 06:01:00 Test Item Value Reference Range Interpretation [...] S 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 Career Placement Specialist ID - PIAYA LPOCT-GLUCOSE [id number] 06:00:00 Test Item Value Reference Range Interpretation Comments POC-GLUCOSE METER 94 mg/dL 70-110 : TESTED A T [facility] 6720 (BEAKER) (test code = [place], 1538) [address]: Career Placement Specialist/Techni justus ID = [id number] for Aren Cheatham [id number] 05:49:00 Test Item Value Reference Range Interpretation Comments MAGNESIUM (BEAKER) (test code = 1.9 mg/dL 1.6-2.6 627) Career Placement Specialist ID - PIAYA [id number] 05:31:00 Test Item Value Reference Range Interpretation Comments CORTISOL, TOTAL (BEAKER) (test code 8.3 ug/dL 3.7-19.4 = 2755) Career Placement Specialist ID - [id number] (HEMOGRAM ONLY)2020-02-13 03:06:00 Test [...] (test code = 413) TSH/FREE T4 IF [id number] 02:45:00 Test Item Value Reference Range Interpretation Comments THYROID STIMULATING HORMONE 4.682 uIU/mL 0.350-4.940 (BEAKER) (test code = 772) Career Placement Specialist ID - PIAYA LPOCT-GLUCOSE [id number] 00:32:00 Test Item Value Reference Range Interpretation Comments POC-GLUCOSE METER 82 mg/dL 70-110 : TESTED A T [facility] 6720 (BEAKER) (test code = [place], 1538) [address]: Career Placement Specialist/Techni justus ID = [id number] for Aren Cheatham BLOOD GAS, [id number] 18:26:00 Test Item Value Reference Range Interpretation [...] code = 1819) 21.0 % COMPREHENSIVE METABOLIC [id number] 18:16:00 Test Item Value Reference Range Interpretation [...] S 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 Career Placement Specialist ID - [id number] 18:14:00 Test Item Value Reference Range Interpretation Comments MAGNESIUM (BEAKER) (test code = 1.8 mg/dL 1.6-2.6 627) Career Placement Specialist ID - NTPCALCIUM, [id number] 18:02:00 Test Item Value Reference Range Interpretation Comments CALCIUM IONIZED (BEAKER) (test 1.14 mmol/L 1.12-1.27 code = 698) PH, BLOOD (BEAKER) (test code = 7.32 1810) [id number] 18:01:00 Test Item Value Reference Range Interpretation [...] (BEAKER) (test code = 413) BLOOD GAS, [id number] 10:37:00 Test Item Value Reference Range Interpretation [...] 1819) 60.0 % HGB/HCT (H&H) - STAT [id number] 10:37:00 Test Item Value Reference Range Interpretation Comments HEMOGLOBIN (BEAKER) (test code = 9.2 g/dL 13.0-16.8 L 410) HEMATOCRIT (BEAKER) (test code = 27.0 % 40.0-50.0 L 411) GLUCOSE-STAT [id number] 10:36:00 Test Item Value Reference Range Interpretation Comments GLUCOSE RANDOM (BEAKER) (test code 104 mg/dL 70-110 = 652) SODIUM NA-STAT [id number] 10:36:00 Test Item Value Reference Range Interpretation Comments SODIUM (BEAKER) (test code = 381) 137 meq/L 136-145 POTASSIUM-STAT [id number] 10:36:00 Test Item Value Reference Range Interpretation Comments POTASSIUM (BEAKER) (test code = 4.0 meq/L 3.6-5.5 379) SARS-COV2/RT-PCR ([facility])2020-02-12 08:04:00 Test Item Value Reference Range Interpretation Comments SARS-COV2/RT-PCR (test code Negative Not Detected, Negative, = 5955746) See external report for linked test SARS-COV-2 PERFORMING LAB [facility] (test code = 4360242) Negative results do not preclude SARS-CoV-2 infection [...] of the Act.Fact Sheet for Healthcare Pro viders:https://www.[employer])/Documents/Xpert%20Xpress%20SARS%20CoV-2/Fact%20Sh eets/302-3802%20OTAF-QZZ-8%20HEALTHCARE%20PROVIDERS%20FACT%20SHEET.pdfFact Sheet for Healthcare Patients:https://www.[employer]/Documents/Xpert%20Xpress%20SARS%20CoV-2/Fact%20Sheets/302-3801%20SARS-COV -2%20PATIENT%20FACT%20SHEET.pdfPerforming Laboratory:[facility], [place] [address]OAWNZ METABOLIC [id number] 07:28:00 Test Item Value Reference Range Interpretation [...] S 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 Career Placement Specialist ID - [id number] W/PLT COUNT & AUTO [id number] 07:21:00 Test Item Value Reference Range Interpretation [...] code = 2801) HGB/HCT (H&H) - STAT [id number] 06:45:00 Test Item Value Reference Range Interpretation Comments HEMOGLOBIN (BEAKER) (test code = 11.3 g/dL 13.0-16.8 L 410) HEMATOCRIT (BEAKER) (test code = 33.0 % 40.0-50.0 L 411) GLUCOSE-STAT [id number] 06:42:00 Test Item Value Reference Range Interpretation Comments GLUCOSE RANDOM (BEAKER) (test code 103 mg/dL 70-110 = 652) POTASSIUM-STAT [id number] 06:42:00 Test Item Value Reference Range Interpretation Comments POTASSIUM (BEAKER) (test code = 4.8 meq/L 3.6-5.5 379) POCT-GLUCOSE [id number] 05:51:00 Test Item Value Reference Range Interpretation Comments POC-GLUCOSE METER 108 mg/dL 70-110 : TESTED A T [facility] 6720 (BEAKER) (test code [facility] [facility], = 1538) [address]: Career Placement Specialist/Techni justus ID = [id number] for JORD AN, LACRYSTAL
[2021-12-20 18:31] LABS: Urine Bacteria <20 /HPF (NONE SEEN); Urine RBC TNTC /HPF (NONE SEEN)
[2021-12-20 18:32] LABS: Urine Mucus 2+ /HPF (NONE SEEN)
--- NOTE | 2021-12-20 18:41 | EDPHYS ---
Physician Documentation [facility] Name: Robbie Kelly Age: 76 yrs Sex: Male : 1945 Arrival Date: 12/20/2021 Time: 16:53 Bed 17 Private MD: ED Physician Gopal Sanchez HPI: 12/20 17:16 This 76 yrs old Male presents to ER via Wheelchair with complaints of Urinary Retention.rn 17:16 The patient presents with urinary symptoms, retention, unable to void. Onset: The rn symptoms/episode began/occurred 4 day(s) ago. Modifying factors: The symptoms are alleviated by nothing, the symptoms are aggravated by pressure. Associated signs and symptoms: Pertinent negatives: fever, hematuria. Severity of symptoms: At their worst the symptoms were moderate, in the emergency department the symptoms are unchanged. The patient has experienced similar episodes in the past. The patient has not recently seen a physician. Pt reports dialysis for 6 years, still makes urine, very little, last time urinated was 4 days ago. Has had to be drained with catheter recently. Reports feels like bladder is full and has to urinate but can't. Has bladder cancer and sees urology in [facility], plan is for surgery soon. . Historical: - Allergies: 17:01 No Known Allergies; ss - PMHx: 17:01 Anemia; COPD; Dialysis; M,W,F; Bladder CA; Hypothyroidism; RENAL FAILURE; POLYCYSTIC ss KIDNEY DISEASE; Hypertension; - PSHx: 17:01 L arm dialysis access; ss - Immunization history:: Client reports receiving the 2nd dose of the Covid vaccine. - Social history:: Smoking status: Patient denies any tobacco usage or history of. - Family history:: not pertinent. - Hospitalizations: : No recent hospitalization is reported. ROS: 17:16 Constitutional: Negative for fever, chills, and weight loss, Eyes: Negative for injury, rn pain, redness, and discharge, Neck: Negative for injury, pain, and swelling, Cardiovascular: Negative for chest pain, palpitations, and edema, Respiratory: Negative for shortness of breath, cough, wheezing, and pleuritic chest pain, Abdomen/GI: + suprapubic abd pain Back: Negative for injury and pain, : + urinary retention MS/Extremity: Negative for injury and deformity, Skin: Negative for injury, rash, and discoloration, Neuro: Negative for headache, weakness, numbness, tingling, and seizure. Exam: 17:16 Constitutional: This is a well developed, well nourished patient who is awake, alert, rn and in no acute distress. Cardiovascular: Regular rate and rhythm. No pulse deficits. Abdomen/GI: soft, non-tender, no rebound Skin: Warm, dry Neuro: Awake and alert, GCS 15 Vital Signs: 16:59 BP 151 / 59; Pulse 81; Resp 16; Temp 98.3(TE); Pulse Ox 95% on R/A; Weight 68.04 kg; ss Height 5 ft. 10 in. (177.80 cm); Pain 0/10; 18:10 BP 128 / 63; Pulse 74; Resp 20 S; Pulse Ox 96% on R/A; jg9 18:45 BP 148 / 68; Pulse 80; Resp 18 S; Pulse Ox 95% on R/A; jg9 16:59 Body Mass Index 21.52 (68.04 kg, 177.80 cm) ss MDM: 17:04 Patient medically screened. rn 18:39 Differential diagnosis: UTI, urinary retention. Data reviewed: vital signs, nurses rn notes, lab test result(s), urinalysis, and as a result, I will discharge patient. Counseling: I had a detailed discussion with the patient and/or guardian regarding: the historical points, exam findings, and any diagnostic results supporting the discharge/admit diagnosis, lab results, the need for outpatient follow up, to return to the emergency department if symptoms worsen or persist or if there are any questions or concerns that arise at home. Response to treatment: the patient's symptoms have markedly improved after treatment, the patient's condition has returned to base line, the patient is now symptom free, and as a result, I will discharge patient. Special discussion: I discussed with the patient/guardian in detail that at this point there is no indication for admission to the hospital. It is understood, however, that if the symptoms persist or worsen the patient needs to return immediately for re-evaluation. Based on the history and exam findings, there is no indication for further emergent testing or inpatient evaluation. I discussed with the patient/guardian the need to see the urologist for further evaluation of the symptoms. ED course: Pt drained moderate amount after straight cath, normal vitals, UA neg for UTI, still does not want thompson catheter, understands likely to have to return. States is going to f/u with his urologist. . 12/20 17:15 Order name: Urine Microscopic Only; Complete Time: 18:36 rn 12/20 17:15 Order name: Urine Culture rn 12/20 17:15 Order name: Cath; Complete Time: 18:53 rn Administered Medications: No medications were administered Disposition Summary: 12/20/21 18:41 Discharge Ordered Location: Home rn Problem: new rn Symptoms: have improved rn Condition: Stable rn Diagnosis - Retention of urine, unspecified rn Followup: rn - With: Private Physician - When: As needed - Reason: Recheck today's complaints, Re-evaluation by your physician Discharge Instructions: - Discharge Summary Sheet rn - Acute Urinary Retention, Male rn Forms: - Medication Reconciliation Form rn - Thank You Letter rn - Antibiotic government guard - Prescription Opioid Use rn Signatures: Dispatcher [employer] EDGopal Posey MD MD rn Smirch, Shelby, RN RN ss Corrections: (The following items were deleted from the chart) 18:53 17:15 Urine Dipstick-Ancillary ordered. rn jg9
--- NOTE | 2021-12-20 18:41 | ER ---
Nurse's Notes [facility] Name: Robbie Kelly Age: 76 yrs Sex: Male : 1945 Arrival Date: 12/20/2021 Time: 16:53 Bed 17 Private MD: Diagnosis: Retention of urine, unspecified Presentation: 12/20 16:59 Chief complaint: Patient states: Intermittent urinary retention that has been ongoing ss for months. This episode began 3-4 days ago and has been getting worse. Coronavirus screen: Client denies travel out of the [place] in the last 14 days. Ebola Screen: Patient denies exposure to infectious person. Patient denies travel to an Ebola-affected area in the 21 days before illness onset. Initial Sepsis Screen: Does the patient meet any 2 criteria? No. Patient's initial sepsis screen is negative. Does the patient have a suspected source of infection? No. Patient's initial sepsis screen is negative. Risk Assessment: Do you want to hurt yourself or someone else? Patient reports no desire to harm self or others. Onset of symptoms was November 2021. 16:59 Method Of Arrival: Wheelchair ss 16:59 Acuity: DADA 3 ss Triage Assessment: 18:00 General: Appears uncomfortable, Behavior is calm, cooperative. Pain: Complains of pain jg9 in back and abdomen. 18:20 : Urine is blood tinged, Reports inability to void. jg9 Historical: - Allergies: 17:01 No Known Allergies; ss - PMHx: 17:01 Anemia; COPD; Dialysis; M,W,F; Bladder CA; Hypothyroidism; RENAL FAILURE; POLYCYSTIC ss KIDNEY DISEASE; Hypertension; - PSHx: 17:01 L arm dialysis access; ss - Immunization history:: Client reports receiving the 2nd dose of the Covid vaccine. - Social history:: Smoking status: Patient denies any tobacco usage or history of. - Family history:: not pertinent. - Hospitalizations: : No recent hospitalization is reported. Screenin:21 Abuse screen: Denies threats or abuse. Denies injuries from another. Nutritional jg9 screening: No deficits noted. Tuberculosis screening: No symptoms or risk factors identified. Fall Risk None identified. Assessment: 18:21 Reassessment: patient straight cath at which time there was a large amount of jg9 dark/chocolate colored urine-sample collected and sent. Irrigation attempted with NS, 500mL NS-returned 500mL however the blood slowly progressed from the dark/chocolate color to a red punch color-color improved but never ran clear or straw yellow colored. Patient tolerated ok but was starting to c/o discomfort, irrigation stopped, straight cath removed and urinal placed at bedside. 18:52 Reassessment: Patient and/or family updated on plan of care and expected duration. Pain jg9 level reassessed. Patient states feeling better. Patient states symptoms have improved. Vital Signs: 16:59 BP 151 / 59; Pulse 81; Resp 16; Temp 98.3(TE); Pulse Ox 95% on R/A; Weight 68.04 kg; ss Height 5 ft. 10 in. (177.80 cm); Pain 0/10; 18:10 BP 128 / 63; Pulse 74; Resp 20 S; Pulse Ox 96% on R/A; jg9 18:45 BP 148 / 68; Pulse 80; Resp 18 S; Pulse Ox 95% on R/A; jg9 16:59 Body Mass Index 21.52 (68.04 kg, 177.80 cm) ED Course: 16:53 Patient arrived in ED. as 17:01 Triage completed. ss 17:01 Arm band placed on right wrist. ss 17:04 Gopal Sanchez MD is Attending Physician. rn 17:06 Melody Root, LEXII is Primary Nurse. jg9 18:20 Bladder irrigated via straight cath with 500 ml normal saline returned troy blood jg9 Patient tolerated well. 18:25 Patient has correct armband on for positive identification. Bed in low position. Call jg9 light in reach. Side rails up X 1. 18:26 Bladder irrigated returned dark/black colored urine. jg9 18:52 No provider procedures requiring assistance completed. jg9 18:52 Patient did not have IV access during this emergency room visit. jg9 Administered Medications: No medications were administered Medication: 18:25 VIS not applicable for this client. jg9 Outcome: 18:41 Discharge ordered by . rn 18:52 Discharged to home ambulatory. jg9 18:52 Condition: improved 18:52 Discharge instructions given to patient, Instructed on discharge instructions, follow up and referral plans. Demonstrated understanding of instructions, follow-up care. 18:57 Patient left the ED. jg9 Signatures: Melody Gongora Roman, MD MD rn Tamra Weldon RN RN ss Melody Root RN RN jg9
[2021-12-20 19:02] VITALS: TEMP 98.3
[2021-12-20 19:05] VITALS: BP 148/68; O2SAT 95
== END 2021-12-20 18:57 | disposition home or self-care (01) ==
LOC: ER 16:53
DX: R33.9 Retention of urine, unspecified (principal); I12.0 Hypertensive chronic kidney disease with stage 5 chronic kidney disease or end stage renal disease; N18.6 End stage renal disease; Q61.3 Polycystic kidney, unspecified; Z99.2 Dependence on renal dialysis; Z85.51 Personal history of malignant neoplasm of bladder
CPT/HCPCS: 81015; 87086; 87088

== ENCOUNTER 2021-12-30 20:14 | Emergency (ER) | payer OTHER ==
[2021-12-30] MEDS ORDERED: NA CHLORIDE 0.9% 1,000 ML ONE (21:00)
[2021-12-30 21:02] LABS: Hematocrit 29.1 % (39.6-49.0); Lymphocytes % 7.6 % (15.3-44.8); MCV 88.1 fL (80-100); MPV 7.9 fL (7.6-11.3); RBC Red Blood Cell Count 3.31 M/uL (4.33-5.43)
[2021-12-30 21:03] LABS: Protime INR 1.4
[2021-12-30 21:29] LABS: Bilirubin Direct 0.2 mg/dL (0-0.2); Bilirubin Total 0.5 mg/dL (0.2-1.0); Magnesium 1.9 mg/dL (1.8-2.4); Potassium 3.9 mmol/L (3.5-5.1); Protein, Total 7.5 g/dL (6.4-8.2); Troponin High Sensitivity 25.4 pg/mL (<58.9)
--- NOTE | 2021-12-30 21:32 | RAD REPORT ---
EXAM DESCRIPTION: CTSpine Lumbar Wo Con12/30/2021 9:14 pm CLINICAL HISTORY: Neck injury status post fall COMPARISON: August 2021 CT abdomen TECHNIQUE: Computed axial tomography lumbar spine was obtained with coronal and sagittal reconstruct ion. All CT scans are performed using dose optimization technique as appropriate and may include automated exposure control or mA/KV adjustment according to patient size. FINDINGS: A fracture is not seen. No dislocation Spondylosis L3-4 results in moderate central spinal stenosis Stent has been placed into an abdominal aortic aneurysm. The most superior slice demonstrates an upper abdominal aortic aneurysm with an AP diameter of 4.4 ce ntimeters. It is without significant change from August 2021 IMPRESSION: Negative for a lumbar fracture. Spondylosis L3-4 resulting in moderate central spinal stenosis
--- NOTE | 2021-12-30 21:34 | RAD REPORT ---
EXAM DESCRIPTION: Naveen Single View12/30/2021 9:11 pm CLINICAL HISTORY: Cough COMPARISON: November 2021 FINDINGS: [id number] bilateral interstitial lung opacities are without significant change. I s uspect most if not all is chronic. 6 millimeter right lower lobe nodule unchanged. Followup x-ray in 6 months recommended to assess stab ility Heart is mildly enlarged
--- NOTE | 2021-12-30 21:59 | EDPHYS ---
Physician Documentation [facility] Name: Robbie Kelly Age: 76 yrs Sex: Male : 1945 Arrival Date: 12/30/2021 Time: 20:16 Bed 4 Private MD: JEAN CLAUDE Physician Derrick Brooke HPI: 12/30 20:32 This 76 yrs old Male presents to ER via EMS with complaints of fall yesterday mitchell to butt. 20:32 The patient presents with pain that is acute, and an injury. The symptoms are located mitchell in the low back. Onset: The symptoms/episode began/occurred 1 day(s) ago. The pain does not radiate. Associated signs and symptoms: The patient has no apparent associated signs or symptoms. The problem was sustained during a fall, while walking. Modifying factors: The patient symptoms are alleviated by nothing, remaining still, the patient symptoms are aggravated by any movement, bending, coughing, movement, standing, supine position, walking. fall at home to buttock. Onset: The symptoms/episode began/occurred 1 day(s) ago. Historical: - Home Meds: 20:19 amiodarone 400 mg Oral tab 1 tab once daily [Active]; Eliquis 2.5 mg Oral tab 1 tab 2 kd3 times per day [Active]; furosemide 20 mg Oral tab 1 tab 2 times per day [Active]; hydroxyzine HCl 25 mg Oral tab 1 tab 3 times per day [Active]; levothyroxine 88 mcg cap 1 cap once daily [Active]; atorvastatin 40 mg Oral tab 1 tab once daily [Active]; sevelamer carbonate 800 mg Oral tab 1 tab 3 times per day [Active]; Aileen-Shari 0.8 mg Oral tab [Active]; - PMHx: 20:19 Anemia; COPD; Hypertension; Hypothyroidism; POLYCYSTIC KIDNEY DISEASE; Dialysis; M,W,F; kd3 Bladder CA; RENAL FAILURE; - PSHx: 20:19 L arm dialysis access; kd3 - Immunization history:: Adult Immunizations up to date. - Social history:: Smoking status: unknown. - Family history:: not pertinent. ROS: 20:32 Constitutional: Negative for fever, chills, and weight loss, Eyes: Negative for injury, mitchell pain, redness, and discharge, ENT: Negative for injury, pain, and discharge, Neck: Negative for injury, pain, and swelling, Cardiovascular: Negative for chest pain, palpitations, and edema, Respiratory: Negative for shortness of breath, cough, wheezing, and pleuritic chest pain, Abdomen/GI: Negative for abdominal pain, nausea, vomiting, diarrhea, and constipation, : Negative for injury, bleeding, discharge, and swelling, MS/Extremity: Negative for injury and deformity, Skin: Negative for injury, rash, and discoloration, Neuro: Negative for headache, weakness, numbness, tingling, and seizure, Psych: Negative for depression, anxiety, suicide ideation, homicidal ideation, and hallucinations, Allergy/Immunology: Negative for hives, rash, and allergies, Endocrine: Negative for neck swelling, polydipsia, polyuria, polyphagia, and marked weight changes, Hematologic/Lymphatic: Negative for swollen nodes, abnormal bleeding, and unusual bruising. 20:32 Back: Positive for Exam: 20:32 Constitutional: This is a well developed, well nourished patient who is awake, alert, mitchell and in no acute distress. Head/Face: Normocephalic, atraumatic. Eyes: Pupils equal round and reactive to light, extra-ocular motions intact. Lids and lashes normal. Conjunctiva and sclera are non-icteric and not injected. Cornea within normal limits. Periorbital areas with no swelling, redness, or edema. ENT: Nares patent. No nasal discharge, no septal abnormalities noted. Tympanic membranes are normal and external auditory canals are clear. Oropharynx with no redness, swelling, or masses, exudates, or evidence of obstruction, uvula midline. Mucous membranes moist. Neck: Trachea midline, no thyromegaly or masses palpated, and no cervical lymphadenopathy. Supple, full range of motion without nuchal rigidity, or vertebral point tenderness. No Meningismus. Chest/axilla: Normal chest wall appearance and motion. Nontender with no deformity. No lesions are appreciated. Cardiovascular: Regular rate and rhythm with a normal S1 and S2. No gallops, murmurs, or rubs. Normal PMI, no JVD. No pulse deficits. Respiratory: Lungs have equal breath sounds bilaterally, clear to auscultation and percussion. No rales, rhonchi or wheezes noted. No increased work of breathing, no retractions or nasal flaring. Abdomen/GI: Soft, non-tender, with normal bowel sounds. No distension or tympany. No guarding or rebound. No evidence of tenderness throughout. Skin: Warm, dry with normal turgor. Normal color with no rashes, no lesions, and no evidence of cellulitis. MS/ Extremity: Pulses equal, no cyanosis. Neurovascular intact. Full, normal range of motion. Neuro: Awake and alert, GCS 15, oriented to person, place, time, and situation. Cranial nerves II-XII grossly intact. Motor strength 5/5 in all extremities. Sensory grossly intact. Cerebellar exam normal. Normal gait. Psych: Awake, alert, with orientation to person, place and time. Behavior, mood, and affect are within normal limits. 20:32 Back: pain, that is mild, that is moderate, ROM is painful, with all movement, kyphosis, CVA tenderness, is absent, vertebral tenderness, is not appreciated, muscle spasm, is appreciated in the left low back, left mid back, right mid back and right low back. 21:21 ECG was reviewed by the Attending Physician. [facility] Vital Signs: 20:28 BP 120 / 55; Pulse 87; Resp 18; Pulse Ox 90% on 2 lpm NC; kd3 20:57 Weight 73.48 kg; Height 5 ft. 10 in. (177.80 cm); Pain 4/10; kd3 20:57 Temp 98.2(O); kd3 21:35 Pulse 85; Resp 17; Pulse Ox 97% on 2 lpm NC; kd3 23:04 BP 124 / 62; Pulse 81; Resp 19; Pulse Ox 97% on 2 lpm NC; kd3 20:57 Body Mass Index 23.24 (73.48 kg, 177.80 cm) kd3 MDM: 20:20 Patient medically screened. mitchell 20:36 Differential diagnosis: chronic back pain, Fatigue Fracture Joint Injury Ligament mitchell Injury Osteoarthritis Osteoporosis Pyelonephritis ruptured disc, sprain, vertebral fracture. Differential diagnosis: contusion, fracture, multiple trauma, sprain, strain. Data reviewed: vital signs, nurses notes, lab test result(s), EKG, radiologic studies, CT scan, plain films. Data interpreted: satellite project site monitor: rate is 87 beats/min, rhythm is regular, Pulse oximetry: on 2L(s) per nasal canula, is 92 %. Test interpretation: by ED physician or midlevel provider: ECG, plain radiologic studies. Counseling: I had a detailed discussion with the patient and/or guardian regarding: the historical points, exam findings, and any diagnostic results supporting the discharge/admit diagnosis, lab results, radiology results. 12/30 20:30 Order name: Basic Metabolic Panel; Complete Time: 21:47 [facility] 12/30 20:30 Order name: CBC with Diff; Complete Time: 21:47 [facility] 12/30 20:30 Order name: LFT's; Complete Time: 21:47 [facility] 12/30 20:30 Order name: Magnesium; Complete Time: 21:47 [facility] 12/30 20:30 Order name: NT PRO-BNP; Complete Time: 21:47 [facility] 12/30 20:30 Order name: PT-INR; Complete Time: 21:47 [facility] 12/30 20:30 Order name: Troponin HS; Complete Time: 21:47 [facility] 12/30 20:30 Order name: XRAY Chest (1 view); Complete Time: 21:47 [facility] 12/30 20:30 Order name: SARS-COV-2 RT PCR (Document "Date of Onset" if Symptomatic); Complete Time: mitchell 21:47 12/30 20:30 Order name: CT Lumbar Spine Wo Con; Complete Time: 21:47 [facility] 12/30 20:30 Order name: EKG; Complete Time: 20:31 [facility] 12/30 20:30 Order name: Cardiac monitoring; Complete Time: 20:52 [facility] 12/30 20:30 Order name: EKG - Nurse/Tech; Complete Time: 20:51 [facility] 12/30 20:30 Order name: IV Saline Lock; Complete Time: 20:32 [facility] 12/30 20:30 Order name: Labs collected and sent; Complete Time: 20:52 [facility] 12/30 20:30 Order name: O2 Per Protocol; Complete Time: 20:52 [facility] 12/30 20:30 Order name: O2 Sat Monitoring; Complete Time: 20:52 [facility] EC: Rate is 92 beats/min. Rhythm is regular. QRS [place] is Normal. VA interval is prolonged mitchell at 216 msec. QRS interval is normal. QT interval is normal. No Q waves. T waves are Normal. No ST changes noted. Clinical impression: NSR w/ Non-specific ST/T Changes and No evidence of ischemia. Interpreted by me. Reviewed by me. Administered Medications: 20:57 Drug: NS 0.9% 1000 ml Route: IV; Rate: 75 ml/hr; Site: right antecubital; kd3 22:02 Follow up: IV Status: Completed infusion kd3 22:17 CANCELLED (Duplicate Order): fentaNYL (PF) 25 mcg IVP once mitchell 22:17 CANCELLED (Duplicate Order): Zofran (Ondansetron) 4 mg IVP once; over 2 minutes mitchell 22:19 CANCELLED (Duplicate Order): [place] (HYDROcodone-acetaminophen) 10 mg-325 mg 1 tabs PO mitchell once 22:19 CANCELLED (Duplicate Order): Ondansetron 4 mg PO once mitchell 22:46 Drug: fentaNYL Patch (25 mcg/hr) 1 patches Route: Transdermal; Site: affected area; kd3 22:55 Drug: morphine 7.5 mg Route: IM; Site: right deltoid; kd3 23:03 Follow up: Response: No adverse reaction kd3 22:55 Drug: Zofran (Ondansetron) 4 mg Route: PO; kd3 23:03 Follow up: Response: No adverse reaction kd3 23:03 Drug: LoMOTIL (diphenoxylate-atropine) 2 tabs Route: PO; kd3 23:03 Follow up: Response: No adverse reaction kd3 Disposition Summary: 12/30/21 21:58 Discharge Ordered Location: Home mitchell Problem: new mitchell Symptoms: have improved mitchell Condition: Stable mitchell Diagnosis - Fall on same level, unspecified mitchell - Low back pain mitchell - Spondylolysis, 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 mitchell - Solitary pulmonary nodule mitchell - End stage renal disease - ON HD mitchell Followup: mitchell - With: Private Physician - When: 2 - 3 days - Reason: Recheck today's complaints, Continuance of care, Re-evaluation by your physician Discharge Instructions: - Discharge Summary Sheet mitchell - Acute Back Pain, Adult mitchell - Chronic Back Pain mitchell - Musculoskeletal Pain mitchell - Back Injury Prevention, [id number] mitchell - Dialysis mitchell - Chronic Back Pain, Pxla-bu-Gixa mitchell - Pulmonary Nodule mitchell - Pulmonary Nodule, Efvi-oj-Tevz mitchell - Eating Plan for Dialysis mitchell - Hemodialysis, Fdun-ii-[id number] mitchell Forms: - Medication Reconciliation Form mitchell - Thank You Letter mitchell - Antibiotic Education mitchell - Prescription Opioid Use mitchell Prescriptions: - Valium 2 mg Oral Tablet - take 1 tablet by ORAL route every 12 hours As needed; 20 tablet; Refills: 0, mitchell Product Selection Permitted Signatures: Dispatcher [employer] EDDerrick Salinas MD MD cha Doucette, Kyli RN RN kd3 Corrections: (The following items were deleted from the chart) 22: 22:16 fentaNYL (PF) 25 mcg IVP once ordered. mitchell [facility] : 22:16 Zofran (Ondansetron) 4 mg IVP once; over 2 minutes ordered. mitchell [facility] : 22:18 [place] (HYDROcodone-acetaminophen) 10 mg-325 mg 1 tabs PO once ordered. mitchell [facility] : 22:18 Ondansetron 4 mg PO once ordered. formerly [facility], 1928–1983 : 20:30 Urine Dipstick-Ancillary ordered. mitchell [email or web address]
--- NOTE | 2021-12-30 21:59 | ER ---
Nurse's Notes [facility] Name: Robbie Kelly Age: 76 yrs Sex: Male : 1945 Arrival Date: 12/30/2021 Time: 20:16 Bed 4 Private MD: Diagnosis: Fall on same level, unspecified;Low back pain;Spondylolysis, lumbar region-with moderate spinal stenosis L3-L4;Solitary pulmonary nodule;End stage renal disease-ON HD Presentation: 12/30 20:16 Chief complaint: EMS states: PT was at dialysis today and the dialysis nurse said that kd3 his blood pressure had "dropped a little low" but they still took the fluid off that they needed. when he went home, he tried to sit on a stool and missed and fell down to the floor on his bottom. he now complains of lower back pain and tailbone pain. 75 of Fentnyl and 4 of Zofran given en route. now complaining of 3/10 pain. Coronavirus screen: Vaccine status: Patient reports receiving the 2nd dose of the covid vaccine. Ebola Screen: No symptoms or risks identified at this time. Initial Sepsis Screen: Does the patient meet any 2 criteria? Yes Does the patient have a suspected source of infection? No. Patient's initial sepsis screen is negative. Risk Assessment: Do you want to hurt yourself or someone else? Patient reports no desire to harm self or others. Onset of symptoms was December 30, 2021. 20:16 Method Of Arrival: EMS: [facility] kd3 20:16 Acuity: DADA 3 kd3 Triage Assessment: 20:19 General: Appears in no apparent distress. Behavior is calm, cooperative. Pain: kd3 Complains of pain in lumbar area, low back area, sacrum and left low back. Neuro: Level of Consciousness is awake, alert, obeys commands, Oriented to person, place, time, situation. Respiratory: Airway is patent Trachea midline Respiratory effort is even, unlabored, Respiratory pattern is regular, symmetrical. Historical: - Home Meds: 20:19 amiodarone 400 mg Oral tab 1 tab once daily [Active]; Eliquis 2.5 mg Oral tab 1 tab 2 kd3 times per day [Active]; furosemide 20 mg Oral tab 1 tab 2 times per day [Active]; hydroxyzine HCl 25 mg Oral tab 1 tab 3 times per day [Active]; levothyroxine 88 mcg cap 1 cap once daily [Active]; atorvastatin 40 mg Oral tab 1 tab once daily [Active]; sevelamer carbonate 800 mg Oral tab 1 tab 3 times per day [Active]; Aileen-Shari 0.8 mg Oral tab [Active]; - PMHx: 20:19 Anemia; COPD; Hypertension; Hypothyroidism; POLYCYSTIC KIDNEY DISEASE; Dialysis; M,W,F; kd3 Bladder CA; RENAL FAILURE; - PSHx: 20:19 L arm dialysis access; kd3 - Immunization history:: Adult Immunizations up to date. - Social history:: Smoking status: unknown. - Family history:: not pertinent. Screenin:27 Abuse screen: Denies threats or abuse. Denies injuries from another. Nutritional kd3 screening: No deficits noted. Tuberculosis screening: No symptoms or risk factors identified. Fall Risk Fall in past 12 months (25 points). IV access (20 points). Assessment: 23:03 General: Appears uncomfortable, Behavior is calm, cooperative. kd3 Vital Signs: 20:28 BP 120 / 55; Pulse 87; Resp 18; Pulse Ox 90% on 2 lpm NC; kd3 20:57 Weight 73.48 kg; Height 5 ft. 10 in. (177.80 cm); Pain 4/10; kd3 20:57 Temp 98.2(O); kd3 21:35 Pulse 85; Resp 17; Pulse Ox 97% on 2 lpm NC; kd3 23:04 BP 124 / 62; Pulse 81; Resp 19; Pulse Ox 97% on 2 lpm NC; kd3 20:57 Body Mass Index 23.24 (73.48 kg, 177.80 cm) kd3 ED Course: 20:16 Patient arrived in ED. kd3 20:16 Nehal Hernández, LEXII is Primary Nurse. kd3 20:19 Triage completed. kd3 20:19 Arm band placed on right wrist. kd3 20:20 Derrick Brooke MD is Attending Physician. mitchell 20:27 Patient has correct armband on for positive identification. kd3 20:27 No provider procedures requiring assistance completed. Maintain EMS IV. Dressing kd3 intact. Good blood return noted. Site clean \\T\\ dry. Gauge \\T\\ site: 20 g r AC. Oxygen administration via nasal cannula \\T\\ 2L/min. 20:52 SARS-COV-2 RT PCR (Document "Date of Onset" if Symptomatic) Sent. kd3 21:13 XRAY Chest (1 view) In Process Unspecified. EDMS 21:16 CT Lumbar Spine Wo Con In Process Unspecified. EDMS 21:30 Notified ED physician of a critical lab result(s). creatinine of 5.45 Dr Edwardo lópez notified. 23:04 IV discontinued, intact, bleeding controlled, No redness/swelling at site. Pressure kd3 dressing applied. Administered Medications: 20:57 Drug: NS 0.9% 1000 ml Route: IV; Rate: 75 ml/hr; Site: right antecubital; kd3 22:02 Follow up: IV Status: Completed infusion kd3 22:17 CANCELLED (Duplicate Order): fentaNYL (PF) 25 mcg IVP once mitchell 22:17 CANCELLED (Duplicate Order): Zofran (Ondansetron) 4 mg IVP once; over 2 minutes mitchell 22:19 CANCELLED (Duplicate Order): [place] (HYDROcodone-acetaminophen) 10 mg-325 mg 1 tabs PO mitchell once 22:19 CANCELLED (Duplicate Order): Ondansetron 4 mg PO once mitchell 22:46 Drug: fentaNYL Patch (25 mcg/hr) 1 patches Route: Transdermal; Site: affected area; kd3 22:55 Drug: morphine 7.5 mg Route: IM; Site: right deltoid; kd3 23:03 Follow up: Response: No adverse reaction kd3 22:55 Drug: Zofran (Ondansetron) 4 mg Route: PO; kd3 23:03 Follow up: Response: No adverse reaction kd3 23:03 Drug: LoMOTIL (diphenoxylate-atropine) 2 tabs Route: PO; kd3 23:03 Follow up: Response: No adverse reaction kd3 Medication: 20:28 VIS not applicable for this client. kd3 Outcome: 21:58 Discharge ordered by . [facility] 22:01 Discharged to home ambulatory, with family. kd3 22:01 Condition: stable 23:03 Discharge instructions given to patient, Instructed on discharge instructions, follow kd3 up and referral plans. Demonstrated understanding of instructions, follow-up care, Prescriptions given X 1. 23:04 Patient left the ED. kd3 Signatures: Dispatcher [employer] Derrick Hernandez MD MD cha Ballard, Brenda, RN RN bb Nehal eHrnández, LEXII RN kd3
[2021-12-30] MEDS ORDERED: FENTANYL 25 MCG/PATCH TD ONE (22:14)
[2021-12-30] MEDS ORDERED: ONDANSETRON 4 MG (ODT) TAB ONE (22:56)
[2021-12-30] MEDS ORDERED: MORPHINE 4 MG/ML SYR ONE (22:56)
[2021-12-30] MEDS ORDERED: LOPERAMIDE HCL 2 MG CAPSULE ONE (23:05)
[2021-12-31 00:34] VITALS: TEMP 98.2
[2021-12-31 00:35] VITALS: O2SAT 97
[2021-12-31 00:37] VITALS: BP 124/62
--- NOTE | 2022-01-02 13:53 | EKG ---
Test Date: 2021-12-30 Test Time: 20:43:12 Entry Level Administrative Assistant: YUSUF MEASUREMENT RESULTS: Intervals: Rate: 92 PA: 216 QRSD: 108 QT: 416 QTc: 514 [place]: P: 42 PA: 216 QRS: 65 T: 100 INTERPRETIVE STATEMENTS: Sinus rhythm with 1st degree AV block Nonspecific ST and T wave abnormality Prolonged QT Abnormal ECG Compared to ECG 12/07/2021 11:13:24 First degree AV block now present Prolonged QT interval now present Sinus arrhythmia no longer present Intraventricular conduction delay no longer present Possible ischemia no longer present ST (T wave) deviation still present Electronically Signed On 01-02-22 13:48:09 CDT by Urbano Rob
== END 2021-12-30 23:04 | disposition home or self-care (01) ==
LOC: ER 20:14
DX: M43.06 Spondylolysis, lumbar region (principal); M48.061 Spinal stenosis, lumbar region without neurogenic claudication; R91.1 Solitary pulmonary nodule; I12.0 Hypertensive chronic kidney disease with stage 5 chronic kidney disease or end stage renal disease; N18.6 End stage renal disease; Z99.2 Dependence on renal dialysis; J44.9 Chronic obstructive pulmonary disease, unspecified; Z85.51 Personal history of malignant neoplasm of bladder; Z20.822 Contact with and (suspected) exposure to COVID-19; Z79.01 Long term (current) use of anticoagulants
CPT/HCPCS: 85025; 80048; 36415; 83735; 85610; 80076; 84484; 83880; 72131; 71045; U0003; Q0162; J7030; 93005